=== PATIENT | female | born 1980 | race Caucasian/White ===

== ENCOUNTER 2017-09-01 21:28 | Emergency (ER) | payer MEDICAID, SELFPAY ==
[2017-09-01 21:29] VITALS: BP 156/75; PULSE 84; RESP 16; TEMP 37.1; O2SAT 95; BMI 55.7
--- NOTE | 2017-09-01 22:35 | RAD_ITS ---
STUDY: X-RAY - RIGHT FOOT CLINICAL: Female, 37 years old. Right foot and heel pain, no known injury TECHNIQUE: 3 view(s) of the foot. COMPARISON: None. FINDINGS: Normal talus, calcaneus, and tarsal bones. Normal visualized subtalar, talonavicular, calcaneocuboid, tarsal and tarsometatarsal articulations. Normal metatarsi. Normal metatarsophalangeal joint of the great toe. Normal tibial and fibular sesamoid bones. Normal interphalangeal joint of the great toe. Normal phalanges of the great toe. Normal second through fifth metatarsophalangeal joints. Normal interphalangeal joints and phalanges of the lesser toes. The soft tissue structures are unremarkable. RAD/Foot min 3 Views IMPRESSION: Normal x-ray examination of the foot. Electronically Signed: Dylan Dozier MD at 22:54 EDT , Service support ,
--- NOTE | 2017-09-01 23:18 | ED.VISSUMM ---
- ER Visit Summary Date of Service: 09/01/17 Chief Complaint: Right foot pain History of Present Illness: The patient is a 37 F presents with pain in her right foot that began today. Patient states the pain is over the plantar surface of her right foot. Patient states the pain is constant. Patient states pain does radiate up her leg. Patient states pain is worse with weightbearing and improved with rest. Patient denies any trauma or injury. Patient denies any paresthesias or weakness. Patient denies any swelling. Physical Examination: Vital signs are stable. Patient is afebrile. Patient is in no acute distress. Musculoskeletal exam reveals tenderness over the plantar aspect of the right foot worse at the insertion of the plantar fascia to the calcaneus. There is no edema or ecchymosis noted. There is no bony crepitance or step-off. There is no calf tenderness noted. Homans sign is negative. Pedal pulses are equal bilateral. Sensation is intact to light touch in all digits. Capillary refill is less than 2 seconds in all digits. Test Results: X-rays of the right foot were obtained. There is no acute fracture or dislocation. Treatment Plan: Patient was instructed to ice and elevate the right foot. Patient was instructed to stretch her foot prior to weightbearing if she has been sitting for a while. Patient was given a prescription for Naprosyn. Patient was instructed to follow-up with her primary care physician in 7-10 days. Patient understood and was agreeable with the plan. All questions were answered. Disposition: Discharge home Impression: Plantar fasciitis This note was generated with [employer] dictation software. It may contain incorrect words, spelling, and punctuation that were not noted in review of the chart prior to signing ED Disposition - Plan for ED Patient: Disposition: Home or Assisted Living Chief Complaint: Lower Extremity Injury Diagnosis: Plantar fasciitis of right foot Instructions: ED Plantar Fasciitis Prescriptions: Naproxen [Naprosyn] 500 mg PO BID PRN #20 tab Referrals: Mandie Garcia PA [Primary Care Provider] -
[2017-09-01 23:40] VITALS: RESP 18
== END 2017-09-01 23:40 | disposition home or self-care (01) ==
PROVIDERS: Emergency Provider Emergency Medicine; Family Provider Physician Assistant; PCP Physician Assistant
DX: M72.2 Plantar fascial fibromatosis (principal); K21.9 Gastro-esophageal reflux disease without esophagitis
CPT/HCPCS: 73630; 99282

== ENCOUNTER 2017-11-01 17:05 | Observation (INO) | payer MEDICAID, SELFPAY ==
--- NOTE | 2017-11-01 13:13 | EKG12_ITS ---
Test Reason : SYNCOPE Blood Pressure : / mmHG Vent. Rate : 061 BPM Atrial Rate : 061 BPM P-R Int : 144 ms QRS Dur : 088 ms QT Int : 446 ms P-R-T Axes : 051 057 025 degrees QTc Int : 448 ms Normal sinus rhythm Normal ECG Confirmed by VASU PRATER, RENE ([id number]), graphic editor KELLY MOSQUERA ([id number]) on 11/04/2017 5:53:49 PM Referred By: Mary Esparza Confirmed By:RENE LEONE MD
--- NOTE | 2017-11-01 17:30 | CT_ITS ---
STUDY: CT BRAIN WITHOUT CONTRAST REASON FOR EXAM: Female, 37 years old. Vertigo nausea and vomiting RADIATION DOSAGE (If Supplied By Facility): CTDIvol = ( 44.99 ) mGy, DLP = ( 745.49 ) mGycm TECHNIQUE: Transaxial CT imaging of the brain was performed without administration of intravenous contrast material. Individualized dose optimization techniques were used for this CT. COMPARISON: None. FINDINGS: Normal soft tissue structures. Normal calvarium. Normal size ventricles and extra-axial spaces for the patient's age. Normal white matter tracts of the cerebral hemispheres. Normal basal ganglia and thalami. Normal brainstem. Normal cerebellum. Partial empty sella deformity of uncertain clinical significance. There is no intracranial hemorrhage. There are no findings of an acute ischemic infarction. Normal visualized paranasal sinuses. CT/Brain/Head without Contrast IMPRESSION: Partial empty sella deformity of uncertain clinical significance. No evidence for mass or acute bleed. If concern for acute infarct MRI recommended Electronically Signed: Shashi Jacobo MD at 18:10 EDT , Service support ,
--- NOTE | 2017-11-01 21:45 | DT_ITS ---
This patient was seen during an EMR downtime October 26, 2017 - November 02, 2017. This patient may have a combination of paper and electronic documentation or all paper documentation. All documentation is viewable within the e-chart portion of [employer] for each patient visit.
[2017-11-02] MEDS: Ondansetron 4 MG/2 ML Vial IV (05:45)
[2017-11-02] MEDS: Meclizine HCl 25 MG Tablet PO ×3 (06:00→12:10)
[2017-11-02] MEDS: Gabapentin 300 MG Capsule PO ×2 (06:00→08:00)
[2017-11-02 07:15] LABS: Absolute Neutrophil Count 3.9 X10^3/uL (2.0-7.7); Basophil# 0.04 X10^3/uL; Basophil% 0.5 % (0-1); Eosinophils% 2.7 % (0-5); Hematocrit 35.9 % (37-47); Hemoglobin 11.3 g/dl (12.0-15.0); Lymphocyte % 36.9 % (19-41); Mean Corp Hgb Conc 31.5 g/gl (32-36); Mean Corpuscular Hgb 26.9 pg (27.0-32.0); Mean Corpuscular Volume 85.5 fL (81-99); Monocyte# 0.48 X10^3/uL; Monocyte% 6.6 % (0-10); Neutrophil # 3.87 X10^3/uL (2.7-7.7); Neutrophil % 52.9 % (47-70); Platelet Count 317 K/mm3 (150-450); RBC Distribution Width CV 14.4 % (11.6-14.6); RBC Distribution Width SD 43.7 fl (35.1-43.9); White Blood Count 7.3 K/mm3 (4.4-11.0)
[2017-11-02 07:19] LABS: POSITIVE COUNT NO; POSITIVE DIFFERENTIAL NO; POSITIVE MORPHOLOGY NO
[2017-11-02 07:22] LABS: Anion Gap 9 (5-15); BUN 10 mg/dL (7-18); BUN/Creat Ratio 11.9 RATIO (10-20); Calcium,Total 7.7 mg/dL (8.5-10.1); Chloride 112 mmol/L (98-107); Creatinine, Serum 0.84 mg/dL (0.55-1.02); EST Glomerular Filtration Rate 81 mL/min (>60); Est Glom Filt Rate - Afr Amer 97 mL/min (>60); Glucose 77 mg/dL (74-106); Potassium 4.1 mmol/L (3.5-5.1); Sodium Level 142 mmol/L (136-145)
[2017-11-02] MEDS: Ketorolac 30 MG/ML Syringe IV ×2 (08:15)
[2017-11-02] MEDS: Sucralfate 1 GM Tablet PO ×2 (08:15→12:10)
[2017-11-02] MEDS: 0.9% NaCl Peripheral Flush Adult/Peds IV (08:15)
[2017-11-02] MEDS: 0.9% Normal Saline 1,000 ML 125 ML IV ×2 (08:15)
[2017-11-02 10:00] VITALS: PULSE 73
[2017-11-02] MEDS: Pantoprazole Sodium 40 MG Tablet PO (10:00)
[2017-11-02 12:08] VITALS: BP 129/73; PULSE 81; RESP 18; TEMP 36.7; O2SAT 95
--- NOTE | 2017-11-02 13:47 | PCM.DC ---
You will use the following diet at home:: No restrictions Your food should be the consistency of: Regular Discharge Activity: Return to Normal Activity Call your doctor if you observe: - - intractable vertigo Allergies/Adverse Reactions: Allergies lansoprazole [From Prevacid] Allergy (Verified 09/01/17 21:29) Unknown rabeprazole [From Aciphex] Allergy (Verified 09/01/17 21:29) Hives Sulfa (Sulfonamide Antibiotics) Allergy (Verified 09/01/17 21:29) Unknown omeprazole [From Prilosec] Adverse Reaction (Verified 09/01/17 21:29) Other omeprazole magnesium [From Prilosec] Adverse Reaction (Verified 09/01/17 21:29) Other Medications to take at Discharge Gabapentin [Neurontin] 0 mg PO PRN PRN 08/14/16 clonazepam 0.5 mg tablet 0.5 mg PO QHS 08/01/17 duloxetine 20 mg capsule,delayed release 20 mg PO BID 08/01/17 sucralfate 1 gram tablet 1 g PO ONCE 08/01/17 fluconazole 200 mg tablet 200 mg PO QDAY #2 tab 08/12/17 Naproxen [Naprosyn] 500 mg PO BID PRN #20 tab 09/01/17 Meclizine HCl 25 mg PO TID PRN #1 tab.chew 11/02/17 Ondansetron HCl [Zofran] 8 mg PO TID PRN #15 tab 11/02/17 The following prescriptions were given: Meclizine HCl 25 mg PO TID PRN #1 tab.chew PRN Reason: Vertigo Ondansetron HCl [Zofran] 8 mg PO TID PRN #15 tab PRN Reason: nasuea and vomiting. Orders to be completed after discharge: Physical Therapy Evaluation Time Frame: 1 Week, Location: None Selected Primary Care Physician: Mandie Garcia PA [Primary Care Provider] - Within 2 Weeks Proposed Discharge Date: 11/02/17
--- NOTE | 2017-11-02 13:49 | PCM.DC.SUM ---
Discharge Date and Diagnosis - Problem List Patient Problems: Active and Suspected Problems (Last Reviewed 08/01/17 @ 11:28 by Marie Preciado) Vertigo (Acute) Date of Admission: 11/01/17 Date of Discharge: 11/02/17 - Primary Discharge Diagnosis Active and Suspected Problems (Last Reviewed 08/01/17 @ 11:28 by Marie Preciado) Vertigo (Acute) - Secondary Discharge Diagnosis Chronic Problems (Last Reviewed 08/01/17 @ 11:28 by Marie Preciado) Tobacco use disorder (Chronic) GERD (gastroesophageal reflux disease) (Chronic) Depression (Chronic) Chest pain (Chronic) Anxiety disorder (Chronic) Hospital Course and Treatment Imaging Results: Clinical Impression(s) from Imaging Studies Brain CT 11/01/17 17:30 IMPRESSION: Partial empty sella deformity of uncertain clinical significance. No evidence for mass or acute bleed. If concern for acute infarct MRI recommended Electronically Signed: Shashi Jacobo MD at 18:10 EDT , Service support , Operations: None Procedures: None Summary of Care Provided: The patient is a 37 year old F presents with vertigo. Neurologic workup was unremarkable but patient was having dizziness with just ambulating and head turns. Today, patient's symptoms are much better and the patient is a very able to ambulate to go to the bathroom without difficulty. Patient states that she has been evaluated for this before and has been on meclizine for this. States that she has never seen physical therapy for this before, however. On neurologic exam today patient's cranial nerves II through XII are grossly intact muscle strength is 5 out of 5 in upper extremities bilaterally. Patient has no focal neurologic deficits. I do not feel that this is a stroke but more consistent with benign paroxysmal positional vertigo. Patient states that she has meclizine at home that is less than a year old. I have recommended patient follow-up with physical therapy for vestibular rehab to help with expelling the otolith. [] Patient is in no acute distress and febrile. Cranial nerves II through XII grossly intact and strength is 5 out of 5 in upper extremities bilaterally. No focal neurologic deficits appreciated. Vital Signs Height 1.6 m Weight: 149.4 kg Weight in Pounds 329.4 lbs Pulse Ox 95 Temperature 36.7 C Pulse Rate 81 Respiratory Rate 18 Blood Pressure 129/73 Blood Pressure Position Semi-Fowlers Discharge Diet: No Restrictions Discharge Activity: Return to Normal Activity Call your doctor if you observe: - - intractable vertigo Home Medications: Medications to take at Discharge Gabapentin [Neurontin] 0 mg PO PRN PRN 08/14/16 clonazepam 0.5 mg tablet 0.5 mg PO QHS 08/01/17 duloxetine 20 mg capsule,delayed release 20 mg PO BID 08/01/17 sucralfate 1 gram tablet 1 g PO ONCE 08/01/17 fluconazole 200 mg tablet 200 mg PO QDAY #2 tab 08/12/17 Naproxen [Naprosyn] 500 mg PO BID PRN #20 tab 09/01/17 Meclizine HCl 25 mg PO TID PRN #1 tab.chew 11/02/17 Ondansetron HCl [Zofran] 8 mg PO TID PRN #15 tab 11/02/17 Following Prescrptions Were Given to Patient: Meclizine HCl 25 mg PO TID PRN #1 tab.chew PRN Reason: Vertigo Ondansetron HCl [Zofran] 8 mg PO TID PRN #15 tab PRN Reason: nasuea and vomiting. Other Amb Orders: Physical Therapy Evaluation Time Frame: 1 Week, Location: None Selected Primary Care Physician: Mandie Garcia PA [Primary Care Provider] - Within 2 Weeks Disposition: Home Minutes spent on discharge:: 32 Patient Condition:: Good Medical Necessity - Tobacco Use Smoking Status: Former smoker Meaningful Use Info Meaningful Use Diagnoses (Choose all that apply): None applicable Code Visit OBSV E&M: 75586 Observation care discharge
[2017-11-02] MEDS: DULoxetine Hcl 30 MG Capsule PO (14:11)
[2017-11-02 14:17] VITALS: BP 118/72; PULSE 85; RESP 18; TEMP 36.9; O2SAT 96
[2017-11-03 08:05] LABS: Anion Gap 7 (5-15); BUN 11 mg/dL (7-18); BUN/Creat Ratio 11.3 RATIO (10-20); Calcium,Total 8.8 mg/dL (8.5-10.1); Chloride 107 mmol/L (98-107); Creatinine, Serum 0.97 mg/dL (0.55-1.02); EST Glomerular Filtration Rate 68 mL/min (>60); Est Glom Filt Rate - Afr Amer 82 mL/min (>60); Glucose 88 mg/dL (74-106); Pregnancy, Serum, hCG Quali. NEGATIVE Negative (0-9 Nonpreg); Sodium Level 139 mmol/L (136-145)
[2017-11-03 10:52] LABS: Absolute Lymphocyte Count 0.65 X10^3/ul (0.83-4.51); Absolute Neutrophil Count 4.9 X10^3/uL (2.0-7.7); Basophil% 0.3 % (0-1); Eosinophil# 0.03 X10^3/uL; Eosinophils% 3.1 % (0-5); Hematocrit 38.1 % (37-47); Hemoglobin 12.3 g/dl (12.0-15.0); Lymphocyte # 2.79 X10^3/ul (4.0); Lymphocyte % 32.1 % (19-41); Mean Corp Hgb Conc 32.3 g/gl (32-36); Mean Corpuscular Hgb 26.5 pg (27.0-32.0); Mean Corpuscular Volume 81.9 fL (81-99); Mean Platelet Vol. 10.2 fl (6.2-12.0); Monocyte# 0.27 X10^3/uL; Monocyte% 7.5 % (0-10); Neutrophil # 4.93 X10^3/uL (2.7-7.7); Neutrophil % 59.9 % (47-70); POSITIVE COUNT NO; POSITIVE DIFFERENTIAL NO; POSITIVE MORPHOLOGY NO; Platelet Count 412 K/mm3 (150-450); RBC Distribution Width CV 14.1 % (11.6-14.6); Red Blood Count 4.65 M/mm3 (4.2-5.4); White Blood Count 8.7 K/mm3 (4.4-11.0)
[2017-11-03 11:21] LABS: Magnesium 1.9 mg/dL (1.6-2.6)
== END 2017-11-02 14:45 | disposition home or self-care (01) ==
LOC: ED 21:49 → MS3 21:50
PROVIDERS: Admitting Provider Family Medicine; Emergency Provider Emergency Medicine; Family Provider Physician Assistant; PCP Physician Assistant
DX: R42 Dizziness and giddiness (principal); K21.9 Gastro-esophageal reflux disease without esophagitis; F41.9 Anxiety disorder, unspecified; F32.9 Major depressive disorder, single episode, unspecified; Z79.899 Other long term (current) drug therapy; G89.29 Other chronic pain; M54.2 Cervicalgia; M79.7 Fibromyalgia; Z87.891 Personal history of nicotine dependence; E66.01 Morbid (severe) obesity due to excess calories; Z68.43 Body mass index [BMI] 50.0-59.9, adult; Z71.3 Dietary counseling and surveillance
CPT/HCPCS: 36415; 70450; 80048; 83735; 84703; 85025; 93005; 96361; 96374; 96375; 96376; 97802; 99218; 99285; J7030; A4216; G0378; J2405

== ENCOUNTER 2018-12-14 10:53 | Day surgery (SDC) | payer MEDICAID, SELFPAY ==
[2018-12-14 11:31] LABS: Internal QC Validated? YES +Cl - CLEAR BKGD; Pregnancy, Urine Negative Negative
[2018-12-14 11:32] VITALS: BP 134/74; PULSE 75; RESP 20; TEMP 37; O2SAT 97; BMI 56.0
--- NOTE | 2018-12-14 12:00 | COLBX_PTH ---
PATIENT: DERECK OSPINA LOC: EN U#:[id number] AGE/SX: 38/F ROOM: RE12/14/[address]: Dr. Antonietta Gonzalez MD : [id number] BED: DIS: 12/14/2018 SPEC #: [id number] RECD: 12/14/18 14:16 STATUS: JENN SERA #: [id number] DILOLN: 12/14/18 12:[address]: Antonietta Gonzalez DEPT: SURGICAL PATHOLOGY RECD BY: Agustin Fair ENTERED: 12/15/18 11:00 SP TYPE: COLON BX OTHR DR: OG Snyder Tissues: COLON BIOPSY Procedures: Surgery Specimen Level IV HEADER OPERATION: Colonoscopy (MAC) PRE-OP DIAGNOSIS: Lower abdominal pain, pain with bowel movements TISSUE SUBMITTED: Random colon biopsies MICROSCOPIC DIAGNOSIS Colon, random biopsy: Fragments of colonic mucosa, no pathologic diagnosis. IMELDA:jorge luis 12/16/18 MICROSCOPIC DESCRIPTION Slides are reviewed. GROSS DESCRIPTION Received in fixative is one container labeled with the patient's name and designated random colon biopsy. The specimen consists of multiple irregular fragments of light abebe soft tissue that in aggregate measure 2 x 0.5 x 0.1 cm. The specimen is totally submitted in one cassette. / SJ:jorge luis 12/15/18 TC:4 CPT: 18537
[2018-12-14 12:25] VITALS: BP 121/78; BP 134/74; PULSE 66; RESP 16; TEMP 36.1; O2SAT 97
--- NOTE | 2018-12-14 12:29 | OP.ENDO_ITS ---
12/14/2018 Mandie Garcia Re : Colonoscopy procedure for Fernanda Hernandez Dear Jose This procedure was performed on Friday, December 14, 2018. My impressions and recommendations are as follows: Impressions : - Non-bleeding internal hemorrhoids. - Biopsies were taken with a cold forceps from the entire colon for evaluation of microscopic colitis. Recommendations : - Discharge patient to home (ambulatory). - Resume previous diet. - Continue present medications. - Await pathology results. - My office will telephone with pathology results in 1-2 weeks - Repeat colonoscopy as per ACS guidelines for screening for colon cancer. My findings are described in the full procedure note, which is enclosed. If I can be of further assistance, please feel free to contact me at Doctor phone number(s): , Work: . Sincerely, MD Antonietta Cheng MD 12/14/2018 12:29:04 PM This report has been signed electronically.
[2018-12-14 12:30] VITALS: BP 121/81; BP 134/74; PULSE 68; RESP 16; O2SAT 98
[2018-12-14 12:35] VITALS: BP 122/83; BP 134/74; PULSE 67; RESP 16; O2SAT 100
[2018-12-14 12:40] VITALS: BP 130/81; BP 134/74; PULSE 63; RESP 16; TEMP 36.2; O2SAT 98
[2018-12-14 13:10] VITALS: BP 134/74
== END 2018-12-14 13:18 | disposition home or self-care (01) ==
LOC: EN 10:54 → AC 10:56
PROVIDERS: Anesthesiology; Family Provider Physician Assistant; PCP Physician Assistant; Referring Provider Physician Assistant; Visit Provider Surgery
PROC: 0DJD8ZZ Inspection of Lower Intestinal Tract, Via Natural or Artificial Opening Endoscopic (ICD-10-PCS; CPT 45378; principal; 2018-12-14 11:55)
DX: K64.8 Other hemorrhoids (principal); R10.84 Generalized abdominal pain; R19.4 Change in bowel habit; K21.9 Gastro-esophageal reflux disease without esophagitis; M79.7 Fibromyalgia; F32.9 Major depressive disorder, single episode, unspecified; F41.9 Anxiety disorder, unspecified; Z87.891 Personal history of nicotine dependence; E66.01 Morbid (severe) obesity due to excess calories; Z68.43 Body mass index [BMI] 50.0-59.9, adult
CPT/HCPCS: 45380; 81025; 88305; J7120

== ENCOUNTER → 2019-02-21 10:06 | Outpatient (CLI) | payer MEDICAID, SELFPAY ==
--- NOTE | 2019-02-21 10:07 | RAD_ITS ---
STUDY: X-RAY - RIGHT KNEE REASON FOR EXAM: Female, 38 years old. Anterior knee pain TECHNIQUE: 4 view(s) of the knee. COMPARISON: None. FINDINGS: There is demineralization of the visualized distal femur. There is demineralization of the tibia and fibula. Normal proximal tibiofibular articulation. Normal medial femorotibial compartment. Normal lateral femorotibial compartment. Normal patellofemoral articulation. The soft tissue structures are unremarkable. RAD/Knee 4 or More Views IMPRESSION: Bony demineralization. No visualized fracture no significant arthrosis. Electronically Signed: Britany Parra MD at 17:57 EDT Tel , Service support ,
== END ==
PROVIDERS: Family Provider Physician Assistant; PCP Physician Assistant; Referring Provider Physician Assistant; Visit Provider Physician Assistant
DX: M25.561 Pain in right knee (principal)
CPT/HCPCS: 73564

== ENCOUNTER → 2019-03-11 16:10 | Outpatient (CLI) | payer MEDICAID, SELFPAY ==
--- NOTE | 2019-03-11 16:16 | MRI_ITS ---
HISTORY: IInjury fall 01/25/19, pain entire knee EXAMINATION: MR Knee W/O Contrast TECHNIQUE: Multiplanar and multisequence MR images of the right knee. IV Contrast dosage and agent: None. COMPARISON: No comparisons. 203 images. 5 diagnostic series FINDINGS: BONE: No fracture or abnormal bone marrow signal. JOINT: A small joint effusion is present MUSCLES: Unremarkable. MENISCI: Medial and lateral menisci unremarkable. CRUCIATE LIGAMENTS: Anterior and posterior cruciate ligaments are intact. COLLATERAL LIGAMENTS: Medial collateral ligament and lateral collateral ligamentous complex, inclusive of the popliteal tendon, are intact. CARTILAGE: Minimal chondromalacia along the lateral facet of the patella. OTHER SOFT TISSUES: Unremarkable. No popliteal cyst. IMPRESSION: No internal derangement of the right knee. Small knee effusion. Minimal chondromalacia on the lateral facet of the patella. at 0532 Reported and signed by: Montez Nicholson MD Electronically Signed: Montez Nicholson MD at 5:31 EDT Tel , Service support , MRI/Lower Ext Joint Only (Routine)
== END ==
PROVIDERS: Family Provider Physician Assistant; PCP Physician Assistant; Referring Provider Physician Assistant; Visit Provider Physician Assistant
DX: M25.561 Pain in right knee (principal); T14.90XA Injury, unspecified, initial encounter
CPT/HCPCS: 73721

== ENCOUNTER 2019-03-14 09:30 | Outpatient (RCR) | payer MEDICAID, SELFPAY ==
--- NOTE | 2019-03-01 15:58 | HP.PTEVAL_ITS ---
Patient's Visit Information DERECK OSPINA is a 38 year old F referred to Physical Therapy by OG Bailey with a diagnosis of R Knee pain, medial contusions. Date of Evaluation: 02/28/19 Physical Therapist: Mine Gomes DPT - Visit Plan Frequency: 2x /Week Duration: 4 Weeks Plan: Focus on general LE/core strengthening, balance training, stair training, and decreasing pain. - Subjective Findings: R knee pain following fall after slipping on a puddle in a bathroom 01/31/19. No other injuries in fall. Severe pain at start, took awhile to stand up. Tried to self-treat & rest for awhile but no decrease in apin. Went to 's for x-rays on 02/07/19 negative. Went to ortho 02/21/19 x-rays negative and believed torn meniscus and possible emdial knee contusions. Pain is sharp shooting at inside of knee & intermittently in the back of knee. Deny's N/T & disruption of sleep. No radiating pain down the leg or up to hip. Worst: 6-7/10 Aggravating Factors: Walking fast/long distances, stairs (asc>desc), driving, s itting w/ knee fully bent. Best: 2/10 (pain free at times). Relieving Factors: rest (ice has not helped). 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 Exercise program: not currently. PMH/Meds: alpa headaches/dizziness, no significant concerns. - Objective Posture: FH, RS - corrected w/ v/c unable to maintain, overweight. Stairs: Asc - 1 HR & reciprocal, decreased sienna, significant weight shift to L side, paused fci up d/t to pain (avoids placing weight through R leg). Desc - decreased sienna, reciprocal/1 HR use, avoid weight shift trhough R LE, turns sideways to ease pain. Pt. reports she does asc/desc w/ step-to pattern based on her pain at times. Gait: Slight L foot pronation. HR/TR: WNL w/ UE assist. SLS: R - 2 seconds then placed other LE down d/t pain. L - 5 seconds then LOB righted by placing other LE down. ROM: Ankle WFL, Knee WFL (pain w/ end-range flexion), Hip WFL. Strength: ANkle 4+/5, Knee 4-/5, Hip 4-/5, Core: Poor. Sensation: WNL to gross B touch. Special Tests: McMurrays (+), Drop (-), Rotary Instability (-) Ant. Drawer (-). Palpation: TTP at medial meniscus and t/o medial knee - Goals Goal 1:: Pt. will b I w/ HEP & progression Goal Time Frame: 4-6 Weeks Goal 2:: Pt. will be able to asc/desc stairs w/ reciprocal pattern & no 1 HR Goal Time Frame: 4-6 Weeks Goal 3:: Pt. will demo 4+/5 LE strength Goal Time Frame: 4-6 Weeks Goal 4:: Pt. will demo R SLS for 15 seconds & no UE assist. Goal Time Frame: 4-6 Weeks - Rehabilitation Potential Physical Therapy Diagnosis: Presents w/ hypomobility, LE/core weakness, poor balance, difficulty asc/desc stairs, and pain which leads to poor tolerance of work activities. 02/28/19 HEP Prescribed: Supine Bridges, SLR, Seated HS Stretch, Gastroc Str Rehabilitation Potential: Good - Anticipated Interventions Patient/Client Instruction: Educate patient on: Condition For the Purpose of:: To decrease pain Therapeutic Exercise to Include: Strength training, Endurance training, Balance training, Body mechanics, Active ROM, Dynamic Lumbar Stabilization For the Purpose of:: To improve muscle performance and motor function TENS: Yes Cryotherapy (ice pack, ice massage): Yes Thermo therapy (hot pack): Yes For the Purpose of:: To decrease pain Thank you for the opportunity to evaluate your patient. For Medicare and Medicare HMO plans, please review the plan of care and approve it. It will need to be FAXED BACK to us at [phone] for Medicare purposes. For Medicare only, by signing this I certify the plan of care. Please let me know if there are questions or concerns regarding this plan of care. Physician Signature: Date:
--- NOTE | 2019-05-10 11:33 | HP.PT.NRP ---
HP - Discharge Summary (1) - Patient Information DERECK OSPINA was seen in my office for initial evaluation on 02/28/19. The following Plan of Care was established for this patient: Initial Frequency: 2x /Week Initial Duration: 4 Weeks - Anticipated Interventions Patient/Client Instruction: Educate patient on: Condition For the Purpose of:: To decrease pain Therapeutic Exercise to Include: Strength training, Endurance training, Balance training, Body mechanics, Active ROM, Dynamic Lumbar Stabilization For the Purpose of:: To improve muscle performance and motor function TENS: Yes Cryotherapy (ice pack, ice massage): Yes Thermo therapy (hot pack): Yes For the Purpose of:: To decrease pain This patient was last seen in our office . Pertinent comments regarding their Physical therapy will appear below: Patient has not attended physical therapy in over 4 weeks- appropriate for d/c and return to MD as appropriate. At this point I will be discontinuing this patient from physical therapy. I would be happy to see this patient again in the future if found appropriate by the physician. Thank you! Mine Gomes DPT
== END 2019-03-14 19:00 | disposition home or self-care (01) ==
LOC: PT 09:30
PROVIDERS: Family Provider Physician Assistant; PCP Physician Assistant; Referring Provider Physician Assistant; Visit Provider Physician Assistant
DX: M25.561 Pain in right knee (principal); S80.01XD Contusion of right knee, subsequent encounter
CPT/HCPCS: 97014; 97110; 97161; 97530; G0283

== ENCOUNTER 2019-04-12 16:35 | Emergency (ER) | payer MEDICAID, SELFPAY ==
[2019-03-21 11:35] VITALS: BMI 56.0
[2019-04-12 16:36] VITALS: BP 147/60; PULSE 91; RESP 22; TEMP 37.6; O2SAT 100; BMI 57.8
--- NOTE | 2019-04-12 17:00 | EKG12_ITS ---
Test Reason : CP Blood Pressure : / mmHG Vent. Rate : 089 BPM Atrial Rate : 089 BPM P-R Int : 148 ms QRS Dur : 088 ms QT Int : 382 ms P-R-T Axes : 045 032 018 degrees QTc Int : 464 ms Normal sinus rhythm Normal ECG Confirmed by LENI PRATER, JIMENEZ ([id number]), manager editorial ARLYN DESAI ([id number]) on 04/15/2019 12:25:52 PM Referred By: TOMEKA/JASON Confirmed By:OTIS FARRAR MD
--- NOTE | 2019-04-12 17:06 | ED.VISSUMM ---
- ER Visit Summary Date of Service: 04/12/19 Chief Complaint: Chest pain History of Present Illness: The patient is a 39 F who presents with chest pain that has been intermittent over the past week and a half. Patient describes her pain as sharp. Patient states the pain comes on and last for several hours. Patient states pain is over the left parasternal area and radiates into her back. Patient states nothing makes it better or worse. Patient admits to a history of acid reflux and states this is typical for her. Patient denies any nausea or vomiting. Patient denies any shortness of breath cough or fever. Patient denies any diaphoresis. Patient denies any lightheadedness. Patient denies any cardiac or PE risk factors. Patient states she took aspirin prior to arrival. Physical Examination: Vital signs are stable. Patient is afebrile. Patient is in no acute distress. Oral mucosa is pink and moist. Neck is supple. Trachea is midline. There is no JVD noted. Heart was regular rate and rhythm. Lungs are clear and equal bilateral. Abdomen is soft. Bowel sounds are normal. There is no tenderness. There is no guarding noted. Skin is warm dry. Cranial nerves II through XII are intact. There are no focal motor or sensory deficits noted. Extremities are intact. There is no calf tenderness or edema. Test Results: EKG showed a normal sinus rhythm with a rate of 89. There are no acute ST or T wave changes. CBC, basic metabolic profile, troponin were all within normal limits. PA and lateral chest x-ray was obtained. There is no acute cardiopulmonary process. Emergency Department Course and Treatment: Patient was given a GI cocktail here. Patient had minimal improvement of her pain with this. Patient has a HEART score of 1. Patient was advised that this is low risk for acute cardiac event. Patient was instructed to follow-up with her primary care physician in 5 to 7 days. Patient understood and was agreeable with the plan. All questions were answered. Disposition: Discharge home Impression: Chest pain This note was generated with [employer] dictation software. It may contain incorrect words, spelling, and punctuation that were not noted in review of the chart prior to signing ED Disposition - Plan for ED Patient: Disposition: Home or Assisted Living Diagnosis: Chest pain of uncertain etiology Instructions: CHEST PAIN, Uncertain Cause Referrals: Mandie Garcia PA [Primary Care Provider] - 5-7 Days
[2019-04-12 17:13] LABS: Absolute Lymphocyte Count 2.75 X10^3/uL (0.83-4.51); Absolute Neutrophil Count 5.4 X10^3/uL (2.0-7.7); Basophil# 0.06 X10^3/uL; Basophil% 0.7 % (0-1); Eosinophil# 0.26 X10^3/uL; Eosinophils% 2.9 % (0-5); Hematocrit 37.7 % (37-47); Hemoglobin 12.1 g/dL (12.0-15.0); Lymphocyte # 2.75 X10^3/ul (4.0); Lymphocyte % 30.5 % (19-41); Mean Corp Hgb Conc 32.1 g/dL (32-36); Mean Corpuscular Hgb 26.9 pg (27.0-32.0); Mean Platelet Vol. 10.5 fl (6.2-12.0); Monocyte# 0.56 X10^3/uL; Monocyte% 6.2 % (0-10); NRBC Flagged by Analyzer 0 % (0-5); Neutrophil # 5.36 X10^3/uL (2.7-7.7); Neutrophil % 59.5 % (47-70); Platelet Count 384 K/mm3 (150-450); RBC Distribution Width CV 14.4 % (11.6-14.6); RBC Distribution Width SD 43.5 fl (35.1-43.9); Red Blood Count 4.49 M/mm3 (4.2-5.4)
[2019-04-12 17:16] VITALS: O2SAT 99
[2019-04-12] MEDS: Mag Hydrox/Al Hydrox/Simeth 30 ML UDC PO (17:19)
--- NOTE | 2019-04-12 17:20 | RAD_ITS ---
STUDY: X-RAY CHEST REASON FOR EXAM: Female, 39 years old. Chest pain TECHNIQUE: Single AP portable view of the chest. COMPARISON: 03/05/16. FINDINGS: Cardiac silhouette unremarkable. Pulmonary vascularity unremarkable. Aorta unremarkable. No focal airspace opacities. No pleural effusions. Upper abdomen unremarkable. Osseous structures intact. No pneumothorax. RAD/Chest PA and Lateral IMPRESSION: No acute cardiopulmonary findings Electronically Signed: Bryan Shaver, at 17:48 EST Tel , Service support ,
[2019-04-12 17:27] LABS: Anion Gap 6 (5-15); BUN 9 mg/dL (7-18); BUN/Creat Ratio 9.9 RATIO (10-20); Calcium,Total 8.6 mg/dL (8.5-10.1); Chloride 109 mmol/L (98-107); Creatinine, Serum 0.91 mg/dL (0.55-1.02); EST Glomerular Filtration Rate 73 mL/min (>60); Est Glom Filt Rate - Afr Amer 88 mL/min (>60); Estimated Creatinine Clearance 67.98 ml/min; Glucose 95 mg/dL (74-106); Potassium 3.6 mmol/L (3.5-5.1); Sodium Level 140 mmol/L (136-145)
[2019-04-12 17:46] VITALS: BP 121/83; PULSE 79; RESP 17; O2SAT 99
[2019-04-12 18:18] VITALS: BP 128/66; PULSE 77; RESP 15; O2SAT 99
[2019-04-12 18:55] VITALS: BP 104/64; PULSE 77; RESP 20; O2SAT 98
--- NOTE | 2019-04-12 18:56 | ED.RN ---
PT GIVEN WRITTEN AND VERBAL DISCHARGE INSTRUCTIONS. PT EDUCATED ON INSTRUCTIONS AND FOLLOW UP. PT VERBALIZES UNDERSTANDING AND DENIES ANY FURTHER QUESTIONS. PT IV D/C AND COVERED WITH 2X2 GAUZE AND PAPER TAPE. PT DRESSES SELF AND AMBULATES OUT OF DEPT WITH FAMILY.
== END 2019-04-12 18:57 | disposition home or self-care (01) ==
PROVIDERS: Emergency Provider Emergency Medicine; Family Provider Physician Assistant; PCP Physician Assistant
DX: R07.9 Chest pain, unspecified (principal); E66.9 Obesity, unspecified; K21.9 Gastro-esophageal reflux disease without esophagitis; M54.2 Cervicalgia; M54.9 Dorsalgia, unspecified; R51 Headache; R30.0 Dysuria; J02.9 Acute pharyngitis, unspecified
CPT/HCPCS: 71046; 80048; 84484; 85025; 93005; 99284; A4216

== ENCOUNTER 2019-07-13 22:52 | Emergency (ER) | payer MEDICAID, SELFPAY ==
[2019-04-19 09:30] VITALS: BMI 57.8
[2019-07-13 22:53] VITALS: BP 165/104; PULSE 89; RESP 15; TEMP 36; O2SAT 99; BMI 59.1
--- NOTE | 2019-07-13 23:24 | ED.VISSUMM ---
- ER Visit Summary Date of Service: 07/13/19 Chief Complaint: Atraumatic right-sided soft tissue neck pain History of Present Illness: The patient is a 39 F history of vertigo, depression, anxiety and migraines. Patient states for 3 days she has had gradual onset of right-sided neck pain. Denies any fall or trauma. Worse with rotation of her neck. She is never had neck surgery. She has had chronic neck pain in the past. Denies any fever or chills. No weakness or numbness to her extremities. Physical Examination: Middle-aged female no acute distress vital signs are stable afebrile. H EENT exam unremarkable. Neck spine nontender. Her right trapezius is tender to palpation consistent with myofascial spasm. There is no redness or warmth. No bruising. Otherwise her back nontender. Lungs are clear equal symmetrical bilaterally. Heart regular rate and rhythm no murmur rate about 90. Chest wall nontender. Abdomen soft nontender normal bowel sounds no peritoneal signs. Extremities moves all 4. Neurovascular intact. 5-5 social director strength. Dorsi plantarflexion intact. Neurologically she is awake alert with no focal motor deficits. Test Results: None Emergency Department Course and Treatment: History and exam are consistent with right trapezius muscle spasm. Patient treated with p.o. Valium here. She has Flexeril at home. Treatment Plan: Hot shower and warm bath. Massage. Flexeril. Anti-inflammatories. Follow-up if not improving. Disposition: Discharge Impression: Right trapezius muscle spasm This note was generated with [employer] dictation software. It may contain incorrect words, spelling, and punctuation that were not noted in review of the chart prior to signing ED Disposition - Plan for ED Patient: Referrals: Mandie Garcia PA [Primary Care Provider] -
--- NOTE | 2019-07-13 23:26 | ED.DEP ---
ED Disposition - Plan for ED Patient: Disposition: Home or Assisted Living Instructions: Muscle Spasm Referrals: Mandie Garcia PA [Primary Care Provider] - 3-5 Days if not improving Additional Instructions: Tenure Flexeril and anti-inflammatory. Hot shower, warm bath and massage. Follow-up if not improving.
[2019-07-13] MEDS: diazePAM 2 MG Tablet 10 MG PO (23:36)
[2019-07-13 23:38] VITALS: RESP 16
== END 2019-07-13 23:41 | disposition home or self-care (01) ==
PROVIDERS: Emergency Provider Emergency Medicine; PCP Physician Assistant
DX: M62.830 Muscle spasm of back (principal)
CPT/HCPCS: 99283

== ENCOUNTER → 2019-12-14 | Outpatient (CLI) | payer MEDICAID, SELFPAY | END | disposition home or self-care (01) | LOC: MTDU 11:24 | PROVIDERS: PCP Physician Assistant; Referring Provider Registered Nurse; Visit Provider Registered Nurse | DX: Z20.828 Contact with and (suspected) exposure to other viral communicable diseases (principal) | CPT/HCPCS: 87635; G2023; U0003 ==

== ENCOUNTER 2020-01-21 21:39 | Emergency (ER) | payer MEDICAID, SELFPAY ==
[2020-01-21 21:40] VITALS: BP 150/101; PULSE 95; RESP 16; TEMP 36.3; O2SAT 99; BMI 60.2
--- NOTE | 2020-01-21 21:57 | ED.VISSUMM ---
- ER Visit Summary Date of Service: 01/21/20 Chief Complaint: Laceration History of Present Illness: The patient is a 39 F who sees Alfonzo Garcia. She reports that tonight she was washing a mandolin and suffered a laceration to the tip of her right index finger. She is right-hand dominant. Her tetanus is up-to-date. She reports she has an aching, throbbing pain was 5-10 at worst and 3-10 currently. Is worsened by movement relieved by rest. Physical Examination: Vitals: Stable. Afebrile. General: Well-nourished and well-developed. Head: Normocephalic atraumatic. Neck: Supple, no lymphadenopathy. No JVD. Nontender. Cardiovascular: Regular rate and rhythm. No murmurs. Respiratory: No respiratory distress. Clear to auscultation bilaterally. Abdominal: Soft, nontender, nondistended, normal bowel sounds. No guarding, rebound, or peritoneal signs. Back: Nontender. Extremities: Superficial avulsion of approximately 1 cm of tissue on the distal phalanx of her right index finger. This tissue is still present, but clearly is not viable. Skin: Normal color, no rash. Neurologic: Alert and oriented ?3. Cranial nerves II through XII are intact. Normal strength and sensation. Psych: Normal affect. Emergency Department Course and Treatment: Patient had the wound cleansed and a dressing was placed. The tissue was left in place to act as an anatomic Band-Aid. She does understand that this will likely dry up and need to be cut off. Treatment Plan: Patient be discharged instructions keep the wound clean and dry. Wear a dressing at all times. Follow-up with her primary care physician in 3 to 5 days if not improving. Return to the emergency department for any worsening symptoms. Disposition: To home in improved and stable condition. Impression: 1 1. Superficial avulsion right index finger, not repaired. This note was generated with [employer] dictation software. It may contain incorrect words, spelling, and punctuation that were not noted in review of the chart prior to signing ED Disposition - Plan for ED Patient: Disposition: Home or Assisted Living Instructions: ED Finger Tip Amputation Open Treatment Referrals: Mandie Garcia PA [Primary Care Provider] - 10-14 Days if not better
== END 2020-01-21 22:33 | disposition home or self-care (01) ==
LOC: ED 22:15
PROVIDERS: Emergency Provider Emergency Medicine; PCP Physician Assistant
DX: S61.200A Unspecified open wound of right index finger without damage to nail, initial encounter (principal); W27.4XXA Contact with kitchen utensil, initial encounter; Y93.G1 Activity, food preparation and clean up; Y92.000 Kitchen of unspecified non-institutional (private) residence as the place of occurrence of the external cause; Y99.8 Other external cause status
CPT/HCPCS: 99283

== ENCOUNTER 2020-01-31 11:29 | Day surgery (SDC) | payer MEDICAID, SELFPAY ==
--- NOTE | 2020-01-30 10:02 | HP.PCM_ITS ---
History and Physical Date of Admission: 01/31/20 Fernanda Hernandez 1980 ? REFERRING PHYSICIAN: Eugenio Sanford MD ? CHIEF COMPLAINT: Consult (EGD consult) ? HPI: The patient is a 39 year old female referred for endoscopy. Fernanda notes acid reflux. She is planning to have upcoming bafriatric surgery at [facility] and EGD is needed as part of her preop evaluation. She would like to have this performed locally if possible. Patient denies any change in bowel habits, weight changes, blood in stools, black tarry stools or abdominal pain. ? Patient's past medical history is significant for morbid obesity, migraines, fibromyalgia. She follows with Alfonzo Garcia PA-C for her chronic medical conditions. ? Patient denies chest pain, shortness of breath or recent hospitalizations. Denies problems with sedation in the past. ? ?? PAST MEDICAL HISTORY ? Fibromyalgia 08/20/2016 ? GERD (gastroesophageal reflux disease) 03/12/2009 ? Hypoglycemia, unspecified ? ? Mental disorder ? ? anxiety and depression ? Migraine without aura 2001 ? Morbid obesity (HCC) ? ? Normal cardiac stress test 01/23/12 ? Snoring ? ? Unspecified prophylactic or treatment measure ? ? PAST SURGICAL HISTORY ? COLONOSCOPY W/BX ? 12/14/2018 ? EGD W/O OR W/BRUSH/WASH ? 04/11/05 ? EGD ? EGD W/O OR W/BRUSH/WASH ? 03/06/2017 ? EGD ? LAPAROSCOPIC CHOLEYCYSTECTOMY ? 03/21/16 ? REDUCTION OF LARGE BREAST ? 2013 ? REMOVE TONSILS/ADENOIDS,12+ Y/O ? 2002 ? DR. EASTMAN ? CURRENT MEDICATIONS ? naproxen (NAPROSYN) 500 mg tablet Take 1 tablet by mouth twice daily as needed (for pain/inflammation). Take with food. ? venlafaxine ER (EFFEXOR XR) 150 mg 24 hr capsule Take 1 capsule by mouth once daily. ? lamoTRIgine (LAMICTAL) 150 mg tablet Take 1 tablet by mouth once daily. ? ARIPiprazole (ABILIFY) 2 mg tablet Take 1 tablet by mouth once daily. ? pantoprazole DR (PROTONIX) 40 mg tablet Take 1 tablet by mouth twice daily. ? ondansetron orally disintegrating (ZOFRAN ODT) 4 mg disintegrating tablet Take 1 tablet by mouth every 6 hours as needed for Nausea/Vomiting. ? metaxalone (SKELAXIN) 800 mg tablet Take 1 tablet by mouth three times daily as needed for Pain. ? clonazePAM (KLONOPIN) 0.5 mg tablet TAKE 1/2 TABLET BY MOUTH AT BEDTIME NEEDED FOR ANXIETY, do not drive after taking the medication ? meclizine (ANTIVERT) 25 mg tab Take 1 tablet by mouth three times daily as needed (vertigo). ? norgestimate 0.25 mg-ethinyl estradiol 35 mcg (SPRINTEC) 0.25-35 mg-mcg per tablet Take 1 tablet by mouth once daily. Do not take placebo pills. Starts a new package every 3 weeks. ? dicyclomine (BENTYL) 20 mg tablet Take 1 tablet by mouth four times daily. as needed. ? TENS unit and electrodes cmpk 1 Device once daily. (Patient not taking: Reported on 12/20/2019 ? sucralfate (CARAFATE) 1 gram tablet Take 1 tablet by mouth four times daily. (Patient not taking: Reported on 11/10/2019 ?? ALLERGIES: Aciphex [Rabeprazole Sodium], Entex Pse [Pseudoephedrine-Guaife nesin], Nexium [Esomeprazole Magnesium], Prevacid [Lansoprazole], Prilosec [Omeprazole], Sulfa (Sulfonamide Antibiotics), and Wellbutrin [Bupropion Hcl] ? PERSONAL HISTORY: Tobacco Use ? Smoking status: Former Smoker ? ? Packs/day: 0.50 ? ? Years: 12.00 ? ? Pack years: 6.00 ? ? Types: Cigarettes ? ? Quit date: 07/22/2013 ? ? Years since quittin.4 ? Smokeless tobacco: Never Used Substance Use Topics ? Alcohol use: Yes ? ? Frequency: Monthly or less ? ? Drinks per session: Patient refused ? ? Binge frequency: Never ? ? Comment: Rarely ? Drug use: No ? FAMILY HISTORY: ? Arthritis Mother ? ? Diabetes Mother ? ? Headache Father ? ? Lipids Father ? ? Headache Sister ? ? Diabetes Maternal Grandfather ? ? Stroke Maternal Grandfather ? ? Alcohol/Drug Paternal Grandmother ? ? ETOH ? Alcohol/Drug Paternal Grandfather ? ? ETOH ? Cancer Paternal Grandfather ? ? LUNG ? Alcohol/Drug Paternal Aunt ? ? ETOH ? Alcohol/Drug Paternal Uncle ? ? ETOH ? Cancer Paternal Uncle ? ? LUNG The review of systems data was entered by the nurse and reviewed by me ? Nursing Notes: Mohan Marina RANGEL 01/09/2020 1:06 PM Signed REVIEW OF SYSTEMS: General: The patient denies fatigue, denies weight loss, denies weight gain, denies feeling hot, and denies feelings of cold. Eyes: The patient denies glaucoma, denies eye injury/surgery, wears glasses or contacts. Ear/Nose/Throat: The patient denies allergies, denies hayfever, denies ear infections, and denies bloody noses. Cardiovascular: The patient denies chest pain, denies heart disease, denies high blood pressure,denies cardiac stent, denies prior heart attack, denies irregular heart beat, denies high cholesterol, denies poor circulation, denies heart failure, other cardiac issues, denies claudication, denies cold feet, denies peripheral arterial stent. Respiratory: The patient denies tuberculosis, denies pneumonia, denies frequent cough, denies pulmonary embolism, denies shortness of breath, and denies coughing up blood. Gastrointestinal: The patient denies difficulty swallowing, NOTES acid reflux, denies ulcers, denies vomiting, denies jaundice/hepatitis, denies gallbladder problems, denies black or tarry stools, denies hemorrhoids, denies bleeding from rectum, denies diverticulitis, denies constipation, denies diarrhea, denies loss of stool control, and denies hernias. Kidney/Bladder: The patient denies kidney stones, denies urine infections, and denies bloody urine. Skin: The patient denies a history of skin cancer, denies bleeding/changing moles, and denies a history of skin rash. Neurologic: The patient denies a history of epilepsy/convulsions, NOTES headaches, denies head/spinal injuries, and denies stroke/TIA. Psychiatric: The patient NOTES psychiatric medications, NOTES depression, and denies voices, denies substance abuse. Endocrine: The patient denies thyroid disorders, denies diabetes, and denies hormonal problems. Hematologic: The patient denies a history of bruising, denies bleeding, and denies anemia, denies blood clots. Infections: The patient denies a history of measles and mumps, denies rheumatic fever, and denies sexually transmitted diseases. Musculoskeletal: The patient denies back pain/injury, NOTES back problems, denies sciatica, denies knee/foot trouble, NOTES arthritis, or denies gout. ?? When was patient's last Mammogram screening? 02/2019 ? Last Colonoscopy: 11/2018 ? Mohan Gray LPN I have confirmed and edited as necessary, the PFSH and ROS obtained by others. ? Limited video exam: ? Patient alert, cooperative, in no acute distress ? Normal affect, answers questions appropriately ? IMPRESSION: GERD, need for EGD prior to bariatric surgery ? PLAN: I have reviewed my findings with the surgeon. Will plan for upper endoscopy. We discussed the risks and benefits of the planned endoscopy. I have informed the patient that complications can occur including failure to complete the endoscopy and perforation. The patient had the opportunity to ask questions concerning the planned endoscopy. My staff has also explained the procedure to the patient in understandable terms and has given the patient printed material concerning the procedure. The patient freely consents to surgery. ? ? We will plan for Monitored Anesthetic Care. Patient aware that she will need preop COVID testing ? The patient was offered a surgery/procedure . I have counseled the patient regarding the risk of exposure to and/or potential harm posed by the COVID-19 virus with having a surgery/procedure at this time versus the risk of? delaying the surgery/procedure. It is not possible to know either the risk of delaying the surgery or procedure or chance of getting an infection with perfect accuracy, but a joint decision was made between the patient and myself?to proceed at this time with endoscopy. ? Diagnoses: (K21.9) Gastroesophageal reflux disease, esophagitis presence not specified (primary encounter diagnosis) (Z01.818) Preop testing ? Marlena Guo PA-C
[2020-01-31 11:56] VITALS: BP 142/88; PULSE 86; RESP 18; TEMP 36.1; O2SAT 99; BMI 59.9
[2020-01-31 12:04] LABS: Internal QC Validated? YES +Cl - CLEAR BKGD; Pregnancy, Urine Negative Negative
[2020-01-31] MEDS: Lactated Ringers 1,000 ML 75 ML IV (12:22)
--- NOTE | 2020-01-31 12:30 | IMM_PTH ---
PATIENT: DERECK OSPINA LOC: EN U#:[id number] AGE/SX: 39/F ROOM: RE01/31/[address]: Dr. Antonietta Gonzalez MD : 1980 BED: DIS: 01/31/2020 SPEC #: [id number] RECD: 02/01/20 13:28 STATUS: JENN REQ #: [id number] DILLON: 01/31/20 12:[address]: Antonietta Gonzalez DEPT: IMMUNOHISTOCHEMISTRY RECD BY: Jennifer Hernandez ENTERED: 02/01/20 13:29 SP TYPE: IMMUNO OTHR DR: OG Snyder Tissues: A - Stomach, NOS Procedures: H Pylori (initial) PHYSICIAN & INSTITUTION [place] [id number] SPECIMEN INFORMATION: Tissue Source: A - Antrum biopsy Clinical Info: GERD Specimen Number: [id number] CPT code: 33182 METHODOLOGY: Deparaffinized sections of prefer/formalin-fixed tissue or PAP/DQ stained slides are incubated with monoclonal/polyclonal antibodies/oligonucleotide probes. Localization is made via biotin free immunoperoxidase method. Appropriate controls are performed and reacted as expected. Results on target cell population are indicated in the following table: RESULTS: ANTIBODY / CLONE RESULT Block A H Pylori (polyclonal) negative These tests were developed and their performance characteristics determined by [facility]. They may not have been cleared or approved by the U.S. Food and Drug Administration. The FDA has determined that such clearance or approval is not necessary. INTERPRETATION: A. Antrum biopsy: Negative for Helicobacter pylori organisms. AM:jorge luis 02/02/20
--- NOTE | 2020-01-31 12:30 | EGD_PTH ---
PATIENT: DERECK OSPINA LOC: EN U#:[id number] AGE/SX: 39/F ROOM: RE01/31/[address]: Dr. Antonietta Gonzalez MD : 1980 BED: DIS: 01/31/2020 SPEC #: [id number] RECD: 01/31/20 14:43 STATUS: JENN REBetty #: [id number] DILLON: 01/31/20 12:[address]: Antonietta Gonzalez DEPT: SURGICAL PATHOLOGY RECD BY: Telma Maldonado ENTERED: 02/01/20 13:27 SP TYPE: EGD BIOPSY BERENICE DR: OG Snyder Tissues: A - Gastric mucous membrane B - Gastric mucous membrane Procedures: Special Stain Group II Surgery Specimen Level IV Alcian Blue/PAS (control) HEADER OPERATION[place] [place] DIAGNOSIS: GERD TISSUE SUBMITTED: A - Antrum biopsy for histo and H. pylori, B - GE junction biopsy MICROSCOPIC DIAGNOSIS A. Gastric antrum, biopsy: Chronic gastritis. See comment. B. Gastroesophageal junction, biopsy: Gastric mucosa with mild chronic inflammation. No evidence of goblet cell metaplasia. See comment. AM:jorge luis 02/02/20 COMMENT A. The results of immunohistochemistry for Helicobacter pylori will be reported separately ([id number]). B. Alcian blue/PAS stain with matched control supports the above diagnosis. MICROSCOPIC DESCRIPTION Slides are reviewed. GROSS DESCRIPTION A - Received in fixative is one container labeled with the patient's name and designated antrum biopsy. The specimen consists of one irregular fragment of light abebe soft tissue that measures 0.3 x 0.2 x 0.1 cm. The specimen is totally submitted in one cassette. B - Received in fixative is one container labeled with the patient's name and designated GE junction. The specimen consists of one irregular fragment of light abebe soft tissue that measures 0.3 x 0.2 x 0.1 cm. The specimen is totally submitted in one cassette. / AM:jorge luis 02/01/20 TC:3 CPT: 67995 x2, 66667
[2020-01-31 12:44] VITALS: BP 113/66; BP 142/88; PULSE 84; RESP 14; TEMP 36.8; O2SAT 99
--- NOTE | 2020-01-31 12:45 | OP.CCLET_ITS ---
01/31/2020 Mandie Garcia Re : Upper GI endoscopy procedure for Fernanda Hernandez Dear Jose This procedure was performed on Friday, January 31, 2020. My impressions and recommendations are as follows: Impressions : - Normal first portion of the duodenum and second portion of the duodenum. - Erythematous mucosa in the antrum. Biopsied. - Medium-sized hiatal hernia. Biopsied. Recommendations : - Discharge patient to home (ambulatory). - Resume previous diet. - Continue present medications. - Await pathology results. - Please make a virtual visit appointment with Marlena Guo PA-C, My findings are described in the full procedure note, which is enclosed. If I can be of further assistance, please feel free to contact me at Doctor phone number(s): , Work: . Sincerely, MD Antonietta Cheng MD 01/31/2020 12:44:36 PM This report has been signed electronically.
--- NOTE | 2020-01-31 12:45 | OP.EGD_ITS ---
Patient Name: Fernanda Hernandez Procedure Date: 01/31/2020 12:19 PM Date of : 1980 Age: 39 Procedure: Upper GI endoscopy Indications: Preoperative assessment for bariatric surgery to treat morbid obesity Providers: Antonietta Gonzalez MD Referring MD: Mandie Garcia Medicines: See the Anesthesia note for documentation of the administered medications Patient Profile: Refer to note in patient chart for documentation of history and physical. Complications: No immediate complications. Procedure: Pre-Anesthesia Assessment: - see anesthesia note After obtaining informed consent, the endoscope was passed under direct vision. Throughout the procedure, the patient's blood pressure, pulse, and oxygen saturations were monitored continuously. The Endoscope was introduced through the mouth, and advanced to the second part of duodenum. The upper GI endoscopy was accomplished without difficulty. The patient tolerated the procedure well. Scope In: 12:30:12 PM Scope Out: 12:39:29 PM Total Procedure Duration Time 0 hours 9 minutes 17 seconds Findings: The first portion of the duodenum and second portion of the duodenum were normal. Localized mildly erythematous mucosa without bleeding was found in the gastric antrum. Consistent with bile gastritis as enterogastric reflux of bile was also noted. Biopsies were taken with a cold forceps for histology. Estimated blood loss was minimal. A small to medium-sized hiatal hernia was present. The GE junction line appeared slightly irregular. Biopsies were taken with a cold forceps for histology. Verification of patient identification for the specimen was done by the nurse. Estimated blood loss was minimal. Impression: - Normal first portion of the duodenum and second portion of the duodenum. - Erythematous mucosa in the antrum. Biopsied. - Medium-sized hiatal hernia. Biopsied. Recommendation: - Discharge patient to home (ambulatory). - Resume previous diet. - Continue present medications. - Await pathology results. - Please make a virtual visit appointment with Marlena Guo PA-C, Procedure Code(s): --- Professional --- 93328, Esophagogastroduodenoscopy, flexible, transoral; with biopsy, single or multiple Diagnosis Code(s): --- Professional --- K31.89, Other diseases of stomach and duodenum K44.9, Diaphragmatic hernia without obstruction or gangrene Z01.818, Encounter for other preprocedural examination E66.01, Morbid (severe) obesity due to excess calories CPT copyright 2017 [employer]. All rights reserved. The codes documented in this report are preliminary and upon cradle placer review may be revised to meet current compliance requirements. MD Antonietta Cheng MD 01/31/2020 12:44:36 PM This report has been signed electronically. Number of Addenda: 0 Note Initiated On: 01/31/2020 12:19 PM
[2020-01-31 12:50] VITALS: BP 120/62; BP 142/88; PULSE 86; RESP 18; O2SAT 98
[2020-01-31 12:55] VITALS: BP 101/91; BP 142/88; PULSE 82; RESP 18; O2SAT 98
[2020-01-31 12:59] VITALS: BP 131/73; BP 142/88; PULSE 90; RESP 18; TEMP 36.8; O2SAT 99
[2020-01-31 13:18] VITALS: BP 142/88
== END 2020-01-31 13:19 | disposition home or self-care (01) ==
LOC: EN 11:30 → AC 11:31
PROVIDERS: Anesthesiology; PCP Physician Assistant; Referring Provider Physician Assistant; Visit Provider Surgery
PROC: 0DJ08ZZ Inspection of Upper Intestinal Tract, Via Natural or Artificial Opening Endoscopic (ICD-10-PCS; CPT 43235; principal; 2020-01-31 12:25)
DX: Z01.818 Encounter for other preprocedural examination (principal); K29.50 Unspecified chronic gastritis without bleeding; K21.0 Gastro-esophageal reflux disease with esophagitis; K44.9 Diaphragmatic hernia without obstruction or gangrene; M79.7 Fibromyalgia; E66.01 Morbid (severe) obesity due to excess calories; F41.9 Anxiety disorder, unspecified; F32.9 Major depressive disorder, single episode, unspecified; D50.9 Iron deficiency anemia, unspecified; Z11.59 Encounter for screening for other viral diseases; Z68.43 Body mass index [BMI] 50.0-59.9, adult; Z79.899 Other long term (current) drug therapy; Z87.891 Personal history of nicotine dependence
CPT/HCPCS: 43239; 81025; 87635; 88305; 88313; 88342; C9803; J7050; J7120; J2405; U0003

== ENCOUNTER → 2021-05-08 | Outpatient (CLI) | payer MEDICAID, SELFPAY | END | disposition home or self-care (01) | LOC: LABSPEC 05-09 07:56 | PROVIDERS: PCP Physician Assistant; Referring Provider Urology; Visit Provider Urology | DX: R31.0 Gross hematuria (principal) | CPT/HCPCS: 87086; 87088; 87186 ==

== ENCOUNTER 2021-06-06 12:49 | Outpatient (CLI) | payer MEDICAID, SELFPAY ==
--- NOTE | 2021-06-06 12:58 | CT_ITS ---
STUDY: CT ABDOMEN AND PELVIS WITH AND WITHOUT CONTRAST REASON FOR EXAM: Female, 41 years old. GROSS HEMATURIA RADIATION DOSAGE (If Supplied By Facility): CTDIvol = ( 22.60 ) mGy, DLP = ( 4024.47 ) mGycm TECHNIQUE: Transaxial images were obtained from the dome of the diaphragm to the symphysis pubis without oral contrast. Isovue 300 100ml was administered. Sagittal and coronal images were reconstructed. Individualized dose optimization techniques were used for this CT. COMPARISON: Comparison is made with prior study dated 03/15/2013. FINDINGS: The visualized lung bases are unremarkable. The visualized portions of the heart are within normal limits. Normal liver. The patient is status post cholecystectomy. Normal spleen. Normal pancreas. There is a small, circumscribed, smooth, low attenuation left adrenal mass, consistent with an adrenal adenoma. This measures 8.5 mm. Normal right adrenal gland. Normal right kidney. Normal left kidney. The patient is status post subtotal gastrectomy. Surgical anastomosis seen in the jejunal loops in the left upper quadrant. Normal colon. The appendix is visualized and appears normal. Normal abdominal aorta. Normal inferior vena cava. There is borderline retroperitoneal lymphadenopathy with enlarged nodes no greater than 10mm in the short axis diameter. Normal urinary bladder. Normal abdominal wall. Normal osseous structures. CT/CT Abd/Pelvis W/WO Contrast IMPRESSION: Prior cholecystectomy and subtotal gastrectomy. Stable 8.5 mm low density nodule in the left adrenal gland. No acute abnormality is seen. Electronically Signed: Danny Swift MD at 14:06 EST , Service support ,
== END 2021-06-06 23:59 | disposition short-term general hospital (02) ==
LOC: CT 12:53
PROVIDERS: PCP Physician Assistant; Referring Provider Urology; Visit Provider Urology
DX: R31.0 Gross hematuria (principal)
CPT/HCPCS: 74178; Q9967

== ENCOUNTER 2021-06-07 10:20 | Outpatient (CLI) | payer MEDICAID, SELFPAY ==
--- NOTE | 2021-06-07 17:45 | CYSPIN_PTH ---
PATIENT: DERECK OSPINA LOC: JOSE U#:[id number] AGE/SX: 41/F ROOM: RE06/07/[address]: Dr. Samreen Davila MD : 1980 BED: DIS: 06/07/2021 SPEC #: [id number] RECD: 06/10/21 08:25 STATUS: JENN SERA #: [id number] DILLON: 06/07/21 17:[address]: Samreen Davila DEPT: CYTOLOGY RECD BY: Lima Valdes ENTERED: 06/10/21 08:25 SP TYPE: CYSPIN FL OTHR DR: OG Snyder Tissues: Urine Procedures: Pap Stain (control) Special Stain Group II Cytospin Fluid HEADER OPERATION: Not noted PRE-OP DIAGNOSIS: Gross hematuria TISSUE SUBMITTED: Urine for cytology DIAGNOSIS CYTOLOGY Urine for cytology (cytospin): Negative for malignant cells. See comment. AM:jorge luis 06/10/2021 COMMENT The specimen primarily contains benign squamous cells. Clinical correlation is suggested. CYTOLOGY STUDY Slides are reviewed. CYTOLOGY GROSS Received is 30 ml of dark gold cloudy fluid labeled with the patient's name and and designated per the requisition as urine. Submitted for cytology preparation. / jorge luis 06/07/2021 TC:5 CPT: 51004
[2021-06-07 17:47] LABS: Cytology, Body Fluid / CSF SEE PATHOLOGY REPORT
== END 2021-06-07 23:59 | disposition home or self-care (01) ==
LOC: LABSPEC 08-28 10:20
PROVIDERS: PCP Physician Assistant; Visit Provider Urology
DX: R31.0 Gross hematuria (principal)
CPT/HCPCS: 88108; 88313

== ENCOUNTER 2022-09-13 16:01 | Emergency (ER) | payer MEDICAID, SELFPAY ==
[2022-09-13 16:01] VITALS: BP 153/100; PULSE 78; RESP 16; TEMP 36.4; O2SAT 99; BMI 41.4
--- NOTE | 2022-09-13 16:21 | EKG12_ITS ---
Test Reason : PALPITATIONS Blood Pressure : / mmHG Vent. Rate : 076 BPM Atrial Rate : 076 BPM P-R Int : 160 ms QRS Dur : 090 ms QT Int : 410 ms P-R-T Axes : 061 026 020 degrees QTc Int : 461 ms Normal sinus rhythm Normal ECG Confirmed by VASU PRATER, RENE ([id number]), editor managing newspaper NAOMIE GRANGER ([id number]) on 09/15/2022 11:19:09 AM Referred By: Confirmed By:RENE LEONE MD
--- NOTE | 2022-09-13 16:33 | ED.VIS.CHEST ---
HPI <OG Wheatley - Last Filed: 09/13/22 20:39> History of Present Illness Chief Complaint: Chest Pain Narrative Narrative: Patient presenting today with heart palpitations and midsternal chest pressure that radiates to her back as well as a left arm ache that she has had intermittently since Thursday night or . Nothing seems to make the symptoms better or worse. She denies any history of any cardiac conditions or history of blood clots. She denies any recent travel/surgery, or recent immobilization. She denies any fever, chills, shortness of breath, abdominal pain, nausea, and vomiting. She denies a family history of cardiac disease. [facility] <OG Wheatley - Last Filed: 09/13/22 20:39> [facility] Medical History (Updated 09/13/22 @ 18:[address] Raulito Chang MD) Arthritis Back pain Chest pain Diarrhea Difficulty balancing Fatigue Knee pain Migraines Shoulder pain SOB (shortness of breath) Stomach ulcer Home Medications norgestimate 0.25 mg-ethinyl estradiol 35 mcg tablet 1 ea PO DAILY bcp 12/10/18 [History Last Taken Unknown] pantoprazole 40 mg tablet,delayed release 80 tab PO QHS gerd 12/10/18 [History Last Taken 01/31/20] venlafaxine 150 mg capsule,extended release 24 hr 150 mg PO QHS #30 caps 03/21/19 [History Last Taken Unknown] lamotrigine 25 mg tablet 50 mg PO QHS 04/12/19 [History Last Taken Unknown] aripiprazole 2 mg tablet 2 mg PO QHS 01/19/20 [History Last Taken Unknown] Allergy/AdvReac Type Severity Reaction Status Date / Time lansoprazole [From Prevacid] Allergy Unknown Verified 09/13/22 16:19 rabeprazole [From Aciphex] Allergy Hives Verified 09/13/22 16:19 Sulfa (Sulfonamide Allergy Unknown Verified 09/13/22 16:19 Antibiotics) omeprazole [From Prilosec] AdvReac Other Verified 09/13/22 16:19 omeprazole magnesium AdvReac Other Verified 09/13/22 16:19 [From Prilosec] Surgical History History of bilateral breast reduction surgery History of cholecystectomy History of tonsillectomy Social History Smoking Status: Former smoker ROS <GO Wheatley - Last Filed: 09/13/22 20:39> ROS ED Constitutional Constitutional ED: Denies chills or fever(s) Cardiovascular Cardiovascular: Reports chest pain and palpitations Respiratory/Chest Respiratory/Chest: Denies cough, dyspnea or dyspnea on exertion Gastrointestinal Gastrointestinal: Denies abdominal pain, nausea or vomiting Musculoskeletal Musculoskeletal: Reports back pain; Denies neck pain Integumentary Denies abscess, Abrasions or rash Neurologic Neurologic: Denies dizziness or weakness Psychiatric Psychiatric: Denies anxiety, depression, suicidal ideation or suicidal thoughts EXAM <OG Wheatley - Last Filed: 09/13/22 20:39> Physical Exam Const Vital Signs: 09/13/22 16:01 09/13/22 16:16 09/13/22 17:01 Temperature 97.6 F L Temperature Source Temporal Pulse Rate 78 78 Respiratory Rate 16 18 Respiratory Effort Normal Non-Labored Respiratory Pattern Normal Blood Pressure 153/100 H 130/84 H Blood Pressure Mean 117 99 Pulse Ox 99 100 Oxygen Delivery Method Room Air Room Air 09/13/22 17:45 Temperature 98.2 F Temperature Source Pulse Rate 74 Respiratory Rate 16 Respiratory Effort Respiratory Pattern Blood Pressure 145/79 H Blood Pressure Mean Pulse Ox 99 Oxygen Delivery Method Positive well nourished, well developed and no apparent distress General Appearance ED: well developed HEENT Reports normocephalic and head/scalp atraumatic Mouth ED: Yes moist mucous membranes normal Eyes PERRL and EOMs intact bilaterally Neck full ROM and supple Chest Wall inspection of chest normal Resp normal respiratory effort and clear to auscultation bilaterally Cardio regular rate and regular rhythm GI soft to palpation, non-tender, non-distended and no masses Back/Spine normal ROM and normal to inspection Extremity normal to inspection and full ROM Neuro oriented x3, CN's II-XII intact bilaterally, moves all extremities, no focal motor deficits and no sensory deficits noted Sensorium / Orientation: awake and alert Psych mental status grossly normal and thought process normal Skin no rashes or lesions noted and no wounds <Dr. Raulito Chang MD - Last Filed: 09/13/22 18:41> Physical Exam Const Vital Signs: 09/13/22 16:01 09/13/22 16:16 09/13/22 17:01 Temperature 97.6 F L Temperature Source Temporal Pulse Rate 78 78 Respiratory Rate 16 18 Respiratory Effort Normal Non-Labored Respiratory Pattern Normal Blood Pressure 153/100 H 130/84 H Blood Pressure Mean 117 99 Pulse Ox 99 100 Oxygen Delivery Method Room Air Room Air 09/13/22 17:45 Temperature 98.2 F Temperature Source Pulse Rate 74 Respiratory Rate 16 Respiratory Effort Respiratory Pattern Blood Pressure 145/79 H Blood Pressure Mean Pulse Ox 99 Oxygen Delivery Method <OG Wheatley - Last Filed: 09/13/22 20:39> Heart Score History: Moderately Suspicious ECG: Normal Age: </= 44 years Risk Factors: 1 or 2 Risk Factors Troponin: </= Normal Limit Score: 2 <Dr. Raulito Chang MD - Last Filed: 09/13/22 18:41> Heart Score Score: 2 MDM <OG Wheatley - Last Filed: 09/13/22 20:39> MDM MDM Narrative Medical decision making narrative: Patient presenting due to midsternal chest pressure that radiates to her back plus left arm pain and heart palpitations. Labs will be obtained to rule out leukocytosis, anemia, electrolyte abnormality, and ACS. EKG obtained and is normal sinus rhythm. She is well-appearing and in no acute distress. Chest x-ray will be obtained to rule out infiltrate, pneumothorax, and other cardiopulmonary abnormality. Chest x-ray is negative, labs unremarkable. I have low suspicion for a PE, patient is not having any shortness of breath, no history of clots, no recent travel/surgery/procedures, no tachypnea, and she is not tachycardic. Patient has not smoked tobacco in several years. Patient's back pain is somewhat reproducible to palpation to the paraspinal muscles on the right side of her mid back and with her bending her head down. She recently got a tattoo on her arm Thursday and reports looking down to watch them do it for a few hours, this could possibly have caused her back pain. My suspicion that patient's chest pain is cardiac in nature is low, however, have encouraged her to follow-up with her PCP on this to discuss possible stress test or any other testing that they feel might be done. She has been given return instructions and will be discharged home in stable condition. She is comfortable with plan. Lab Data Attestation: I reviewed the patient's lab results. Labs: Laboratory Results - last 24 hr 09/13/22 09/13/22 16:30 16:30 WBC 8.1 RBC 4.12 L Hgb 12.4 Hct 37.6 MCV 91.3 MCH 30.1 MCHC 33.0 RDW Std Deviation 42.5 RDW Coeff of Renan 12.8 Plt Count 314 MPV 10.4 Immature Gran % (Auto) 0.100 Neut % (Auto) 51.8 Lymph % (Auto) 36.1 Mchenry % (Auto) 7.8 Eos % (Auto) 3.6 Baso % (Auto) 0.6 Absolute Neuts (auto) 4.2 Absolute Lymphs (auto) 2.91 Nucleated RBC % 0 Sodium 140 Potassium 3.4 L Chloride 109 H Carbon Dioxide 26.0 Anion Gap 5 BUN 10 Creatinine 0.78 Estim Creat Clear Calc 76.93 Est GFR (MDRD) Af Amer 104 Est GFR (MDRD) Non-Af 86 BUN/Creatinine Ratio 12.9 Glucose 75 Calcium 8.5 Troponin I High Sens 5 Radiography Chest X-Ray - ED: Read by ED Physician and Read by Radiologist Diagnostic Testing: Clinical Impression(s) from Imaging Studies Chest X-Ray 09/13/22 17:02 IMPRESSION: Normal x-ray examination of the chest. Electronically Signed: Jose Nevarez MD at 17:17 EDT , EKG Initial EKG: Comments: 76 bpm, normal sinus rhythm, no ST elevation, reviewed and interpreted by attending ED physician. Prior: Unchanged <Dr. Raulito Chang MD - Last Filed: 09/13/22 18:41> [facility] Lab Data Labs: Laboratory Results - last 24 hr 09/13/22 09/13/22 16:30 16:30 WBC 8.1 RBC 4.12 L Hgb 12.4 Hct 37.6 MCV 91.3 MCH 30.1 MCHC 33.0 RDW Std Deviation 42.5 RDW Coeff of Renan 12.8 Plt Count 314 MPV 10.4 Immature Gran % (Auto) 0.100 Neut % (Auto) 51.8 Lymph % (Auto) 36.1 Mchenry % (Auto) 7.8 Eos % (Auto) 3.6 Baso % (Auto) 0.6 Absolute Neuts (auto) 4.2 Absolute Lymphs (auto) 2.91 Nucleated RBC % 0 Sodium 140 Potassium 3.4 L Chloride 109 H Carbon Dioxide 26.0 Anion Gap 5 BUN 10 Creatinine 0.78 Estim Creat Clear Calc 76.93 Est GFR (MDRD) Af Amer 104 Est GFR (MDRD) Non-Af 86 BUN/Creatinine Ratio 12.9 Glucose 75 Calcium 8.5 Troponin I High Sens 5 Radiography Diagnostic Testing: Clinical Impression(s) from Imaging Studies Chest X-Ray 09/13/22 17:02 IMPRESSION: Normal x-ray examination of the chest. Electronically Signed: Jose Nevarez MD at 17:17 EDT , Treatment and Re-Evaluation :: I have personally performed a face to face assessment of the patient and have reviewed the SABRINA Note. I performed a substantive portion of the visit including all aspects of the following. My keene findings include: History: Patient's been having some pain since . She has 1 spot on her back in the middle that is somewhat sore. She intermittently gets some pain in the front of the chest and she gets palpitations. Her palpitations are feeling as though her heart is slightly irregular but not really fast. She does not get lightheaded dizzy short of breath nauseated or vomiting. A couple times with palpitations she is felt mildly short of breath but those are uncommon. The pain has been constant. Nothing makes it better or worse. It has not moved radiated or migrated. No leg pain or swelling. No recent travel surgery or immobilization personal family history of DVT or PE. No family history of heart disease. She quit smoking in 2013. She is not diabetic hypertensive or high cholesterol. She does not feel ill. I do note that on Thursday she got a new tattoo. This was on her left forearm. She is states that while getting the tattoo she was sitting there for many hours and she kept her neck bent down watching the whole time. Doing this motion does somewhat create the symptoms but not completely. Exam: She does have some mild spinal and mostly right paraspinal tenderness probably at about the T9 level. But no skin changes there. No chest wall tenderness. Heart is regular. There is no murmur. Peripheral pulses are equal x4. Lungs are completely clear and she takes good deep breaths without pain. She is not hypoxic or tachycardic. Medical Decision Making: Patient forgot and she actually is on control. But her symptoms and exam and vitals do not match that of a pulmonary embolus. Discharge Plan Triage Chief Complaint: Chest Pain ED Midlevel Provider: Marcelina Vizcarra ED Provider: Raulito Chang Dx/Rx/DC Orders Clinical Impression: Chest pressure, Back pain, Intermittent palpitations Instructions: ED Chest Pain, Noncardiac Prescriptions: No Action venlafaxine 150 mg capsule,extended release 24hr 150 mg PO QHS Qty: 30 Label Comments: TAKE 1 CAPSULE BY MOUTH EVERY DAY norgestimate-ethinyl estradiol 1 EACH tablet 1 ea PO DAILY pantoprazole 40 MG tablet 80 tab PO QHS lamotrigine 25 tablet 50 mg PO QHS aripiprazole 2 MG tablet 2 mg PO QHS Primary Care Provider: Mandie Garcia Referrals: Mandie Garcia PA [Primary Care Provider] - 3-5 Days Activity Restrictions/Additional Instructions: Follow up with PCP 3-5 days. Return for any worsening of symptoms. Disposition Disposition: Home, Self Care Discharge Date/Time: 09/13/22 17:55
[2022-09-13 16:43] LABS: Absolute Lymphocyte Count 2.91 X10^3/uL (0.83-4.51); Absolute Neutrophil Count 4.2 X10^3/uL (2.0-7.7); Basophil# 0.05 X10^3/uL; Basophil% 0.6 % (0-1); Eosinophil# 0.29 X10^3/uL; Eosinophils% 3.6 % (0-5); Hematocrit 37.6 % (37-47); Hemoglobin 12.4 g/dL (12.0-15.0); Lymphocyte # 2.91 X10^3/ul (0.83-4.51); Lymphocyte % 36.1 % (19-41); Mean Corpuscular Hgb 30.1 pg (27.0-32.0); Mean Corpuscular Volume 91.3 fL (81-99); Mean Platelet Vol. 10.4 fl (6.2-12.0); Monocyte# 0.63 X10^3/uL; Monocyte% 7.8 % (0-10); NRBC Flagged by Analyzer 0 % (0-5); Neutrophil # 4.17 X10^3/uL (2.7-7.7); Neutrophil % 51.8 % (47-70); Platelet Count 314 K/mm3 (150-450); RBC Distribution Width CV 12.8 % (11.6-14.6); RBC Distribution Width SD 42.5 fl (35.1-43.9); Red Blood Count 4.12 M/mm3 (4.2-5.4); White Blood Count 8.1 K/mm3 (4.4-11.0)
[2022-09-13 17:01] VITALS: BP 130/84; PULSE 78; RESP 18; O2SAT 100
[2022-09-13 17:01] LABS: Anion Gap 5 (5-15); BUN 10 mg/dL (7-18); BUN/Creat Ratio 12.9 RATIO (10-20); Calcium,Total 8.5 mg/dL (8.5-10.1); Chloride 109 mmol/L (98-107); Creatinine, Serum 0.78 mg/dL (0.55-1.02); EST Glomerular Filtration Rate 86 mL/min (>60); Est Glom Filt Rate - Afr Amer 104 mL/min (>60); Estimated Creatinine Clearance 76.93 ml/min; Glucose 75 mg/dL (74-106); Potassium 3.4 mmol/L (3.5-5.1); Sodium Level 140 mmol/L (136-145); Troponin-I HS 5 pg/mL (3.0-54.0)
--- NOTE | 2022-09-13 17:02 | RAD_ITS ---
STUDY: X-RAY CHEST REASON FOR EXAM: Female, 42 years old. chest pain TECHNIQUE: Single AP portable view of the chest. COMPARISON: 04/12/2019 FINDINGS: The lungs are clear and expanded. There is no demonstrated pleural abnormality. Normal size heart. Normal mediastinum and sania. Normal visualized pulmonary arteries. Normal visualized aortic arch and descending thoracic aorta. Normal visualized thoracic spine. Normal visualized ribs, clavicles, and shoulders. There is no demonstrated abnormality of the visualized soft tissue structures of the upper abdomen. RAD/Chest 1 View (Portable) IMPRESSION: Normal x-ray examination of the chest. Electronically Signed: Jose Nevarez MD at 17:17 EDT ,
[2022-09-13 17:45] VITALS: BP 145/79; PULSE 74; RESP 16; TEMP 36.8; O2SAT 99
== END 2022-09-13 17:55 | disposition home or self-care (01) ==
PROVIDERS: Physician Assistant; Emergency Provider Emergency Medicine; PCP Physician Assistant; Visit Provider Emergency Medicine
DX: R07.89 Other chest pain (principal); R00.2 Palpitations; M54.9 Dorsalgia, unspecified; Z87.891 Personal history of nicotine dependence
CPT/HCPCS: 71045; 80048; 84484; 85025; 93005; 99284; A4216

== ENCOUNTER 2022-12-10 15:29 | Emergency (ER) | payer MEDICAID, SELFPAY ==
[2022-12-10 15:31] VITALS: BP 117/82; PULSE 82; RESP 16; TEMP 36.4; O2SAT 99
[2022-12-10 15:36] VITALS: BMI 40.7
--- NOTE | 2022-12-10 15:44 | EDS_ITS ---
HPI History of Present Illness Chief Complaint: Lower Extremity Injury Detail of Chief Complaint: Left knee pain Informant: patient Narrative Narrative: Patient presents with acute on chronic left knee pain. She has been having knee pain for about 6 weeks or so. She had injections and has been followed by orthopedics. She has an MRI scheduled for this weekend. Today she went to step up onto a bleacher and felt a popping sensation in her anterior knee. She now has worsened knee pain and difficulty with weightbearing. She did drive herself to the emergency room. She denies paresthesias. [facility] Medical History (Updated 12/10/22 @ 16:[address] Mary Esparza MD) Arthritis Back pain Chest pain Difficulty balancing Fatigue Knee pain Migraines Shoulder pain SOB (shortness of breath) Stomach ulcer Home Medications norgestimate 0.25 mg-ethinyl estradiol 35 mcg tablet 1 ea PO DAILY bcp 12/10/18 [History Last Taken Unknown] pantoprazole 40 mg tablet,delayed release 80 tab PO QHS gerd 12/10/18 [History Last Taken 01/31/20] venlafaxine 150 mg capsule,extended release 24 hr 150 mg PO QHS #30 caps 03/21/19 [History Last Taken Unknown] lamotrigine 25 mg tablet 50 mg PO QHS 04/12/19 [History Last Taken Unknown] aripiprazole 2 mg tablet 2 mg PO QHS 01/19/20 [History Last Taken Unknown] diclofenac sodium 1 % topical gel (Voltaren Arthritis Pain) 4 g topical TID #100 grams 11/28/22 [Rx Last Taken Unknown] prednisone 20 mg tablet 20 mg PO DAILY #5 tabs 11/28/22 [Rx Last Taken Unknown] tramadol 50 mg tablet 50 mg PO Q4H PRN PRN Pain #20 tabs 12/10/22 [Rx Last Taken Unknown] Allergy/AdvReac Type Severity Reaction Status Date / Time lansoprazole [From Prevacid] Allergy Unknown Verified 12/10/22 15:31 rabeprazole [From Aciphex] Allergy Hives Verified 12/10/22 15:31 Sulfa (Sulfonamide Allergy Unknown Verified 12/10/22 15:31 Antibiotics) omeprazole [From Prilosec] AdvReac Other Verified 12/10/22 15:31 omeprazole magnesium AdvReac Other Verified 12/10/22 15:31 [From Prilosec] Surgical History Gastric bypass status for obesity History of bilateral breast reduction surgery History of cholecystectomy History of tonsillectomy Social History Smoking Status: Former smoker ROS ROS ED Constitutional Constitutional ED: Denies chills or fever(s) Eyes Eyes: Denies discharge from eye(s) ENT ENT ED: Denies discharge from eye(s), rhinorrhea or sore throat Cardiovascular Cardiovascular: Denies chest pain Respiratory/Chest Respiratory/Chest: Denies cough or dyspnea Gastrointestinal Gastrointestinal: Denies abdominal pain, nausea or vomiting Genitourinary Genitourinary ED: Denies dysuria Musculoskeletal Musculoskeletal: Reports extremity pain; Denies back pain Integumentary Denies Abrasions or rash Neurologic Neurologic: Denies headache(s) or weakness Psychiatric Psychiatric: Denies anxiety or depression Allergic/Immunologic Allergic/Immunologic ED: Denies lip swelling or urticaria EXAM Physical Exam Const Vital Signs: 12/10/22 15:31 Temperature 97.6 F L Temperature Source Temporal Pulse Rate 82 Respiratory Rate 16 Blood Pressure 117/82 H Blood Pressure Mean 93 Pulse Ox 99 Oxygen Delivery Method Room Air Positive well nourished and well developed General Appearance ED: well developed HEENT Reports normocephalic and head/scalp atraumatic Eyes PERRL and EOMs intact bilaterally Neck supple Chest Wall inspection of chest normal and palpation of chest normal Resp normal respiratory effort and clear to auscultation bilaterally Cardio regular rate and regular rhythm GI Palpation: soft Extremity normal to inspection Extremity Narrative: 10 palpation along the anterior knee as well as medial joint line. Ligaments tight on testing. Patient is able to raise her leg off the bed without difficulty. No tenderness at the hip. Strong distal pulses are noted with normal sensation. Neuro oriented x3 and no sensory deficits noted Neuro Narrative: Decreased range of motion left knee secondary to pain. Sensorium / Orientation: alert Psych mental status grossly normal Skin no rashes or lesions noted MDM MDM MDM Narrative Medical decision making narrative: I did review the last orthopedic note. Patient will be sent to x-ray for imaging of the left knee to evaluate for avulsion fracture or other acute injury. Differential diagnosis includes fracture, sprain, strain, meniscus injury. Radiography Diagnostic Testing: Clinical Impression(s) from Imaging Studies Knee X-Ray 12/10/22 15:50 IMPRESSION: Negative. Electronically Signed: Toi José DO at 16:10 EDT , Treatment and Re-Evaluation Narrative: Left knee x-ray per my interpretation reveals no acute bony injury. Radiology interpretation is reviewed and agrees. Given the patient's previous gastric bypass I am unable to prescribe anti-inflammatories for her. We will write her a short course of tramadol which she has tolerated well in the past. She will be given either crutches or a walker to help her offload weight from the left knee. She is already scheduled for an MRI in 3 days. She will follow-up with her orthopedist following this MRI. Discharge Plan Triage Chief Complaint: Lower Extremity Injury ED Provider: Mary Esparza Dx/Rx/DC Orders Clinical Impression: Left knee sprain Instructions: ED Knee Sprain Prescriptions: New tramadol 50 mg tablet 50 mg PO Q4H PRN PRN (Reason: Pain) Qty: 20 0RF No Action venlafaxine 150 mg capsule,extended release 24hr 150 mg PO QHS Qty: 30 Patient Comments: TAKE 1 CAPSULE BY MOUTH EVERY DAY prednisone 20 mg tablet 20 mg PO DAILY Qty: 5 0RF diclofenac sodium [Voltaren Arthritis Pain] 1 % gel 4 g topical TID Qty: 100 0RF Rx Instructions: apply to single knee TID norgestimate-ethinyl estradiol 1 EACH tablet 1 ea PO DAILY pantoprazole 40 MG tablet 80 tab PO QHS lamotrigine 25 tablet 50 mg PO QHS aripiprazole 2 MG tablet 2 mg PO QHS Primary Care Provider: Mandie Garcia Referrals: Mandie Garcia PA [Primary Care Provider] - Ino Basurto PA [Med Staff - Adv Practice Prof] - 1 Week Disposition Disposition: Home, Self Care
--- NOTE | 2022-12-10 15:50 | RAD_ITS ---
INDICATION: injury EXAMINATION/TECHNIQUE: X-RAY - LEFT XR Knee 4 Views COMPARISON: FINDINGS: SOFT TISSUES: No soft tissue swelling or gas. No radiopaque foreign body. BONES/JOINTS: No acute fracture or subluxation.. Normal alignment. Preservation of the joint space.. No sclerotic or destructive changes observed. RAD/Knee 4 or More Views IMPRESSION: Negative. Electronically Signed: Toi José DO at 16:10 EDT ,
== END 2022-12-10 16:43 | disposition home or self-care (01) ==
PROVIDERS: Emergency Provider Emergency Medicine; PCP Physician Assistant; Visit Provider Emergency Medicine
DX: S83.92XA Sprain of unspecified site of left knee, initial encounter (principal); Z87.891 Personal history of nicotine dependence; X50.1XXA Overexertion from prolonged static or awkward postures, initial encounter; Z98.84 Bariatric surgery status
CPT/HCPCS: 73564; 99284

== ENCOUNTER → 2022-12-13 | Outpatient (CLI) | payer MEDICAID, SELFPAY ==
--- NOTE | 2022-12-13 07:36 | MRI_ITS ---
INDICATION: pain L x 2 months EXAMINATION: MRI - LEFT MR LE Joint W/O Contrast TECHNIQUE: Multiplanar and multisequence MR images of the LEFT knee without contrast. IV Contrast Dosage and Agent: None. COMPARISON: Right knee MRI March 11, 2019. Left knee radiograph December 10, 2022. FINDINGS: BONE: No fracture or abnormal bone marrow signal. JOINT: No pathologic effusion, synovial hypertrophy, or intra-articular body. MUSCLES: Unremarkable. MENISCI: Medial and lateral menisci are intact. CRUCIATE LIGAMENTS: Anterior and posterior cruciate ligaments are intact. COLLATERAL LIGAMENTS: Medial collateral ligament and lateral collateral ligamentous complex, inclusive of the popliteal tendon, are intact. CARTILAGE: Full-thickness mid medial femoral condyle and tibial plateau chondral loss without subchondral edema. Diffuse lateral compartment chondral thinning without full thickness loss or subchondral edema. 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 MRI/Lower Ext Joint Only (Routine) IMPRESSION: Full-thickness medial compartment chondral loss and grade 2 lateral facet patellar chondromalacia without subchondral edema. 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
== END | disposition home or self-care (01) ==
LOC: MRI 07:46
PROVIDERS: PCP Physician Assistant; Referring Provider Physician Assistant; Visit Provider Physician Assistant
DX: M25.561 Pain in right knee (principal); M23.91 Unspecified internal derangement of right knee
CPT/HCPCS: 73721

== ENCOUNTER 2024-03-25 15:40 | Emergency (ER) | payer MEDICAID, SELFPAY ==
[2024-03-25 15:41] VITALS: BP 142/114; PULSE 81; RESP 18; TEMP 36.2; O2SAT 98; BMI 42.8
--- NOTE | 2024-03-25 15:43 | EKG12_ITS ---
Test Reason : CP Blood Pressure : */* mmHG Vent. Rate : 81 BPM Atrial Rate : 81 BPM P-R Int : 156 ms QRS Dur : 90 ms QT Int : 390 ms P-R-T Axes : 54 22 28 degrees QTcB Int : 453 ms Normal sinus rhythm Normal ECG When compared with ECG of 13-Sep-2022 16:10, No significant change was found Confirmed by Cedric Stevens ([id number]), news assignment editor DON FLETCHER ([id number]) on 03/29/2024 9:30:06 AM Referred By: Confirmed By: Cedric Stevens
[2024-03-25 16:01] VITALS: O2SAT 99
--- NOTE | 2024-03-25 16:10 | RAD_ITS ---
STUDY: X-RAY CHEST REASON FOR EXAM: Female, 44 years old. chest pain TECHNIQUE: AP portable COMPARISON: September 13, 2022 FINDINGS: The lungs are clear and expanded. There is no demonstrated pleural abnormality. Normal size heart. Normal mediastinum and sania. Normal visualized pulmonary arteries. Normal visualized aortic arch and descending thoracic aorta. Normal visualized thoracic spine. Normal visualized ribs, clavicles, and shoulders. There is no demonstrated abnormality of the visualized soft tissue structures of the upper abdomen. No significant change since prior exam RAD/Chest 1 View (Portable) IMPRESSION: Normal x-ray examination of the chest. Electronically Signed: Shashi Jacobo MD at 16:34 EDT ,
[2024-03-25 16:11] LABS: Absolute Lymphocyte Count 2.77 X10^3/uL (0.83-4.51); Basophil# 0.08 X10^3/uL; Basophil% 0.9 % (0-1); Eosinophil# 0.24 X10^3/uL; Eosinophils% 2.8 % (0-5); Hematocrit 43.2 % (37-47); Hemoglobin 14.2 g/dL (12.0-15.0); Lymphocyte # 2.77 X10^3/ul (0.83-4.51); Mean Corp Hgb Conc 32.9 g/dL (32-36); Mean Corpuscular Hgb 30.1 pg (27.0-32.0); Mean Corpuscular Volume 91.7 fL (81-99); Mean Platelet Vol. 10.9 fl (6.2-12.0); Monocyte# 0.52 X10^3/uL; NRBC Flagged by Analyzer 0 % (0-5); Neutrophil # 5.02 X10^3/uL (2.7-7.7); Neutrophil % 58.1 % (47-70); Platelet Count 356 K/mm3 (150-450); RBC Distribution Width CV 12.8 % (11.6-14.6); RBC Distribution Width SD 43.5 fl (35.1-43.9); Red Blood Count 4.71 M/mm3 (4.2-5.4); White Blood Count 8.7 K/mm3 (4.4-11.0)
[2024-03-25 16:26] LABS: Anion Gap 6 (5-15); BUN 12 mg/dL (7-18); BUN/Creat Ratio 14.6 RATIO (10-20); Chloride 108 mmol/L (98-107); Creatinine, Serum 0.82 mg/dL (0.55-1.02); EST Glomerular Filtration Rate 80 mL/min (>60); Est Glom Filt Rate - Afr Amer 97 mL/min (>60); Estimated Creatinine Clearance 103.07 ml/min; Glucose 93 mg/dL (74-106); Potassium 3.7 mmol/L (3.5-5.1); Sodium Level 140 mmol/L (136-145); Troponin-I HS (w/2H Reflex) 3 pg/mL (3.0-54.0)
--- NOTE | 2024-03-25 16:26 | EX.ED.DYSGE1 ---
HPI <REN Love - Last Filed: 03/25/24 19:00> History of Present Illness Chief Complaint: Chest Pain Narrative Narrative: Patient is a 44-year-old female with history of GERD, anxiety, depression, chronic back and neck pain presenting to the emergency department for chest pain, back pain, left arm pain. Patient states that she was in [employer] today when she started with some sharp back pain, that went to the chest, down her left arm. Patient states that it is a tightness like sensation, she denies any recent travel, she denies any nausea or vomiting. Patient states that this did concern her, and her PCP is now retiring and she has nobody to follow-up with. [facility] <REN Love - Last Filed: 03/25/24 19:00> [facility] Medical History Osteoarthritis of left knee Back pain Difficulty balancing Knee pain Chest pain Migraines Fatigue Stomach ulcer Shoulder pain SOB (shortness of breath) Arthritis Home Medications ?Medication ?Instructions ?Recorded ?Last Taken ?Type norgestimate 0.25 mg-ethinyl 1 ea PO DAILY bcp 12/10/18 Unknown History estradiol 35 mcg tablet pantoprazole 40 mg tablet,delayed 80 tab PO QHS gerd 12/10/18 01/31/20 History release venlafaxine 150 mg 150 mg PO QHS #30 caps 03/21/19 Unknown History capsule,extended release 24 hr lamotrigine 25 mg tablet 50 mg PO QHS 04/12/19 Unknown History diclofenac sodium 1 % topical gel 4 g topical TID #100 grams 11/28/22 Unknown Rx (Voltaren Arthritis Pain) methylprednisolone 4 mg tablets in See Rx Instructions PO PER PKG DIR 12/29/23 Unknown Rx a dose pack (Medrol (Tarik)) #21 tabs Allergy/AdvReac Type Severity Reaction Status Date / Time lansoprazole (From Prevacid) Allergy Unknown Verified 03/25/24 15:41 rabeprazole (From Aciphex) Allergy Hives Verified 03/25/24 15:41 Sulfa (Sulfonamide Allergy Unknown Verified 03/25/24 15:41 Antibiotics) omeprazole (From Prilosec) AdvReac Other Verified 03/25/24 15:41 omeprazole magnesium (From AdvReac Other Verified 03/25/24 15:[facility] Surgical History Gastric bypass status for obesity History of cholecystectomy History of tonsillectomy History of bilateral breast reduction surgery Social History Smoking Status: Former smoker ROS <WILLIS LoveC - Last Filed: 03/25/24 19:00> ROS ED ROS Narrative Constitutional: Negative for fever, chills, weight loss, weakness Eyes: Negative for vision loss, vision change, double vision ENT: Negative for any sore throat, ear pain, congestion Cardiovascular: Negative for any palpitations. Positive for chest pain, tightness Respiratory: Negative for any cough, sputum production, hemoptysis, dyspnea, dyspnea on exertion, orthopnea Gastrointestinal: Negative for any abdominal pain, nausea, vomiting, diarrhea, constipation, blood in stool, blood in vomit : Negative for any urinary frequency, dysuria, retention, blood in urine Muscle skeletal: Negative for any neck pain, back pain. Positive pain down the left arm Neurological: Negative for any headache, syncope, dizziness Skin: Negative for any rashes, itching, abrasions, lacerations Psychiatric: Negative for any depression, anxiety, stress, suicidal ideation, homicidal ideation Hematologic: Negative for any excessive bruising, easy bleeding EXAM <REN Love - Last Filed: 03/25/24 19:00> Physical Exam Narrative Exam Narrative: Vital signs reviewed. HEET: Head normocephalic atraumatic, TMs clear bilaterally. Posterior pharynx is clear, moist mucous membranes. Nares clear bilaterally. Neck: Supple with no lymphadenopathy or tenderness. No signs of meningismus. Cardiac: Regular rate and rhythm no murmurs gallops or rubs, equal peripheral pulses bilaterally. Respiratory: Lungs clear to auscultation bilaterally. No chest tenderness. Abdomen: Soft, nontender, nondistended. No abdominal bruit or pulsatile masses. No hepatosplenomegaly Extremities: No peripheral edema, no signs of gross trauma or deformity. Active full range of motion of all extremities. Neuro: Cranial nerves II through XII intact, no focal neurological deficits. Skin: Clean dry and intact with no rash, purpura, petechiae, vesicles or pustules. Backs/flank: No CVA tenderness, no midline spinal tenderness, no deformity. Psych: Normal mood and affect. No SI, HI or acute psychosis. Const Vital Signs: 03/25/24 15:41 03/25/24 16:01 03/25/24 16:01 Temperature 97.2 F L Temperature Source Temporal Pulse Rate 81 Respiratory Rate 18 Respiratory Effort Normal Non-Labored Blood Pressure 142/114 H Blood Pressure Mean 123 Pulse Ox 98 99 Oxygen Delivery Method Room Air Room Air 03/25/24 16:41 03/25/24 17:00 03/25/24 18:00 Temperature Temperature Source Pulse Rate 69 64 67 Respiratory Rate 18 18 18 Respiratory Effort Blood Pressure 124/77 H 116/75 130/73 H Blood Pressure Mean 92 88 92 Pulse Ox 98 98 97 Oxygen Delivery Method Room Air Room Air <Dr. Kate Richardson DO - Last Filed: 03/30/24 00:31> Physical Exam Const Vital Signs: 03/25/24 15:41 03/25/24 16:01 03/25/24 16:01 Temperature 97.2 F L Temperature Source Temporal Pulse Rate 81 Respiratory Rate 18 Respiratory Effort Normal Non-Labored Blood Pressure 142/114 H Blood Pressure Mean 123 Pulse Ox 98 99 Oxygen Delivery Method Room Air Room Air 03/25/24 16:41 03/25/24 17:00 03/25/24 18:00 Temperature Temperature Source Pulse Rate 69 64 67 Respiratory Rate 18 18 18 Respiratory Effort Blood Pressure 124/77 H 116/75 130/73 H Blood Pressure Mean 92 88 92 Pulse Ox 98 98 97 Oxygen Delivery Method Room Air Room Air [facility] <REN Love - Last Filed: 03/25/24 19:00> [facility] Lab Data Labs: Laboratory Results - last 24 hr 03/25/24 03/25/24 03/25/24 15:50 16:32 17:59 WBC 8.7 RBC 4.71 Hgb 14.2 Hct 43.2 MCV 91.7 MCH 30.1 MCHC 32.9 RDW Std Deviation 43.5 RDW Coeff of Renan 12.8 Plt Count 356 MPV 10.9 Immature Gran % (Auto) 0.200 Neut % (Auto) 58.1 Lymph % (Auto) 32.0 Frontier % (Auto) 6.0 Eos % (Auto) 2.8 Baso % (Auto) 0.9 Absolute Neuts (auto) 5.0 Absolute Lymphs (auto) 2.77 Nucleated RBC % 0 D-Dimer Quant (PE/DVT) < 0.27 L Sodium 140 Potassium 3.7 Chloride 108 H Carbon Dioxide 26.0 Anion Gap 6 BUN 12 Creatinine 0.82 Estim Creat Clear Calc 103.07 Est GFR (MDRD) Af Amer 97 Est GFR (MDRD) Non-Af 80 BUN/Creatinine Ratio 14.6 Glucose 93 Calcium 9.0 Troponin I High Sens 3 4 Radiography Diagnostic Testing: Clinical Impression(s) from Imaging Studies Chest X-Ray 03/25/24 16:10 IMPRESSION: Normal x-ray examination of the chest. Electronically Signed: Shashi Jacobo MD at 16:34 EDT , EKG Normal sinus rhythm: Attestation: I personally reviewed and interpreted this EKG as follows: Comments: Normal sinus rhythm, rate of 81 bpm, WA interval 156 ms, QRS duration 90 ms, no acute ST elevation, no acute infarct noted. Treatment and Re-Evaluation :: Differential diagnosis includes however is not limited to: ACS, AZ, PE, muscle strain, cervical radiculopathy, community-acquired pneumonia Patient appears generally well, vital signs are stable, patient is nontoxic-appearing. Presenting to the emerged department with complaints of chest pain, back pain, left arm pain. Full cardiac workup will be completed, 2 troponins, dimer. Patient received a two-view chest x-ray. Patient received 4 baby aspirin. All radiologic examinations were read, reviewed by the emergency department attending. From these reads, a plan of care will be put in place. Patient CBC was unremarkable, patient's D-dimer was negative, BMP was unremarkable. Initial troponin was 3 which is negative. At this time, is no evidence of any PE or ACS. Patient received 1 more troponin. Patient's second troponin was negative. At this time, there is no evidence of any ACS AZ PE. Patient will follow-up closely with her PCP. Patient feels much better after the examination. She is instructed return for any worsening symptoms. Happy with plan of care, stable for discharge <Dr. Kate Richardson, DO - Last Filed: 03/30/24 00:31> MDM Lab Data Labs: Laboratory Results - last 24 hr 03/25/24 03/25/24 03/25/24 15:50 16:32 17:59 WBC 8.7 RBC 4.71 Hgb 14.2 Hct 43.2 MCV 91.7 MCH 30.1 MCHC 32.9 RDW Std Deviation 43.5 RDW Coeff of Renan 12.8 Plt Count 356 MPV 10.9 Immature Gran % (Auto) 0.200 Neut % (Auto) 58.1 Lymph % (Auto) 32.0 Frontier % (Auto) 6.0 Eos % (Auto) 2.8 Baso % (Auto) 0.9 Absolute Neuts (auto) 5.0 Absolute Lymphs (auto) 2.77 Nucleated RBC % 0 D-Dimer Quant (PE/DVT) < 0.27 L Sodium 140 Potassium 3.7 Chloride 108 H Carbon Dioxide 26.0 Anion Gap 6 BUN 12 Creatinine 0.82 Estim Creat Clear Calc 103.07 Est GFR (MDRD) Af Amer 97 Est GFR (MDRD) Non-Af 80 BUN/Creatinine Ratio 14.6 Glucose 93 Calcium 9.0 Troponin I High Sens 3 4 Radiography Diagnostic Testing: Clinical Impression(s) from Imaging Studies Chest X-Ray 03/25/24 16:10 IMPRESSION: Normal x-ray examination of the chest. Electronically Signed: Shashi Jacobo MD at 16:34 EDT Reading Location ID and State: [address] [place] [address] Tel , Service support , Treatment and Re-Evaluation :: Differential diagnosis includes however is not limited to: ACS, AZ, PE, muscle strain, cervical radiculopathy, community-acquired pneumonia Patient appears generally well, vital signs are stable, patient is nontoxic-appearing. Presenting to the emerged department with complaints of chest pain, back pain, left arm pain. Full cardiac workup will be completed, 2 troponins, dimer. Patient received a two-view chest x-ray. Patient received 4 baby aspirin. All radiologic examinations were read, reviewed by the emergency department attending. From these reads, a plan of care will be put in place. Patient CBC was unremarkable, patient's D-dimer was negative, BMP was unremarkable. Initial troponin was 3 which is negative. At this time, is no evidence of any PE or ACS. Patient received 1 more troponin. Patient's second troponin was negative. At this time, there is no evidence of any ACS AZ PE. Patient will follow-up closely with her PCP. Patient feels much better after the examination. She is instructed return for any worsening symptoms. Happy with plan of care, stable for discharge I have personally performed a face to face assessment of the patient and have reviewed the SABRINA Note. I performed a substantive portion of the visit including all aspects of the following. My keene findings include: History is patient presents to the emergency room for chest pain, back pain left arm pain. Pain is worse with movements. Does have a history of muscle skeletal pain. Cardiac pulmonary workup is obtained however to rule out a more sinister cause of the pain. This includes delta high-sensitivity troponin, EKG, chest x-ray and D-dimer. Workup is largely negative. Patient overall is well-appearing emergency room with normal vital signs. At this time I think she is a good candidate for outpatient follow-up. Low suspicion for acute cardiac cause of her pain. Is given return precautions. Other additions or changes: [None] Discharge Plan Triage Chief Complaint: Chest Pain ED Midlevel Provider: Alex Mccartney ED Provider: Kate Richardson Dx/Rx/DC Orders Clinical Impression: Chest pain Instructions: ED Chest Pain, Noncardiac, ED Chest Pain, Uncertain Cause Prescriptions: No Action venlafaxine 150 mg capsule,extended release 24hr 150 mg PO QHS Qty: 30 Patient Comments: TAKE 1 CAPSULE BY MOUTH EVERY DAY diclofenac sodium [Voltaren Arthritis Pain] 1 % gel 4 g topical TID Qty: 100 0RF Rx Instructions: apply to single knee TID methylprednisolone [Medrol (Tarik)] 4 mg tablets,dose pack See Rx Instructions PO PER PKG DIR Qty: 21 0RF Rx Instructions: PO PER PKG DIR norgestimate-ethinyl estradiol 1 EACH tablet 1 ea PO DAILY pantoprazole 40 MG tablet 80 tab PO QHS lamotrigine 25 tablet 50 mg PO QHS Primary Care Provider: Mandie Garcia Referrals: Lisa Hernandez MD [Med Staff - [employer]] - Mandie Garcia PA [Primary Care Provider] - Activity Restrictions/Additional Instructions: Continue to follow-up outpatient. Follow-up with PCP. Print Language: Maltese Disposition Disposition: Home, Self Care Discharge Date/Time: 03/25/24 19:11
[2024-03-25] MEDS: Aspirin 81 MG TAB.CHEW 324 MG PO (16:31)
[2024-03-25 16:41] VITALS: BP 124/77; PULSE 69; RESP 18; O2SAT 98
[2024-03-25 17:00] VITALS: BP 116/75; PULSE 64; RESP 18; O2SAT 98
[2024-03-25 17:18] LABS: D-Dimer Quantitative (DVT/PE) < 0.27 FEU/ug/m (0.27-0.49)
[2024-03-25 18:00] VITALS: BP 130/73; PULSE 67; RESP 18; O2SAT 97
[2024-03-25 18:02] LABS: Reflex Troponin-HS? (from REC) Y
[2024-03-25 18:24] LABS: Troponin-I HS 4 pg/mL (3.0-54.0)
[2024-03-25 19:03] VITALS: BP 127/77; PULSE 69; RESP 16; TEMP 36.6; O2SAT 99
== END 2024-03-25 19:11 | disposition home or self-care (01) ==
PROVIDERS: Nurse Practitioner; Emergency Provider Emergency Medicine; PCP Physician Assistant; Visit Provider Emergency Medicine
DX: R07.9 Chest pain, unspecified (principal); F41.9 Anxiety disorder, unspecified; Z87.891 Personal history of nicotine dependence; K21.9 Gastro-esophageal reflux disease without esophagitis; F32.A Depression, unspecified
CPT/HCPCS: 71045; 80048; 84484; 85025; 85379; 93005; 99284; A4216

== ENCOUNTER 2024-03-30 07:54 | Outpatient (RCR) | payer MEDICAID, SELFPAY ==
--- NOTE | 2024-03-30 11:31 | HP.PTEVAL_ITS ---
Patient's Visit Information Visit Information Visit Information: DERECK OSPINA is a 44 year old F referred to Physical Therapy by Dr. Larry Hummel MD with a diagnosis of LUMBAR SPONDYLOSIS, NECK PAIN, & CERVIGOGENIC PEREZ. Date of Evaluation: 03/30/24 Physical Therapist: Ania Rubi PT, Cert MDT Visit Plan Frequency: 2x /Week Duration: 4-6 Weeks Plan: Scapular Strengthening. Submax Cervical Isometrics all planes. US at 1.3 W/CM2 100% to B Neck Musculature in Sitting. Moist Heat to Neck as needed. Instruction in Proper Posture Control, Ergonomics with ADL's/work activities and Appropriate Activity Modifications. HEP Instructions. Anterior Pelvic Tilt Correction with Sitting and Standing Activities and Exercises. DLS starting with a neutral spine and progressing ROM as tolerated. HEP inst. US at 1.5 W/CM2 100% TO B Low Back Musculature. Moist Heat to Low Back as needed. 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 L LATERAL PROXIMAL THIGH PAIN. HANNAH SHLD AND PROXIMAL UPPER ARM PAIN. HEADACHES. PATIENT DENIES HANNAH UE AND LE NUMBNESS AND TINGLING. Present since: 25-30 YEARS AGO Pain Scale: WORST 9/10, LEAST 4/10 Currently: NECK 6/10, LOW BACK 5/10 Is it getting better, worse or staying the same: STAYING THE SAME Commenced as a result of: NO APPARENT REASON OTHER THAN FALL OFF OF A SKI LIFT Symptoms at onset: PATIENT CAN NOT REMEMBER Worse: NECK: LIFTING, BENDING, HOLDING PHONE, WORKING ON COMPUTER, DRIVING, CERTAIN SEATS, PROLONGED SITTING. LBP: PROLONGED STANDING, WASHING DISHES, LIFTING, BENDING BACKWARDS. Better: NECK: MASSAGE, ORAL MEDICATION PRESCRIBED, TYLONOL. LOW BACK: ORAL MEDICATIONS PRESCRIBED, TYLONOL, HOME MASSAGER Disturbed sleep: YES Previous history/Previous treatment: YEARS AGO - TRIGGER POINT INJECTIONS ONCE FOR NECK. NO NECK OR BACK SURGERY. CHIROPRACTIC AND PT ON NECK AND BACK IN THE PAST. CHIROPRACTIC HAS BEEN DONE REGULARLY OVER THE YEARS AND USUALLY HELPFUL. PHYSICAL THERAPY HAS NEVER BEEN HELPFUL BUT SHE DOESN'T RE-CALL IT MAKING HER PAIN WORSE BUT IT HAS BEEN A LONG TIME SINCE HAVING IT. Treatment this episode: GABAPENTIN, FLEXERIL AND ANOTHER MUSCLE RELAXER. PRESCRIPTION TYLONOL. Coughing/sneezing/straining: NEGATIVE FOR INCREASING PAIN Dizziness: YES - VERTIGO - PATIENT IS ON MEDICATION. Tinnitus: NO Nausea: AT TIMES WHEN THE PAIN INCREASES. Shortness of Breath: NO Difficulty Swallowing: NO Gait: DOES NOT USE ANY AD'S. NOT LIMITED PER PATIENT REPORT. DENIES LIMPING. Bowel or Bladder Dysfunction: PATIENT DENIES Accidents: FALL FROM SKI LIFT ABOUT 20 YEARS AGO Unexplained weight loss: NO Imaging: PATIENT CAN'T RECALL WHEN LAST IMAGING WAS DONE BUT IT WAS THROUGH THE [facility] AND A YEAR OR SO AGO. PMH/Recent major surgery: DEPRESSION AND ANXIETY OTHER: DON'T LET THEM DO ANYTHING STRENUOUS ON YOUR NECK. PATIENT DENIES HAVING ANY SPECIFIC PHYSICIAN RESTRICTIONS OR A LIFTING LIMIT. Objective Objective: Sitting/Standing Posture: INCREASED PAIN STANDING WITH EQUAL WT BEARING B LE'S. SHIFTING WEIGHT TO R LE DECREASES LBP IN STANDING. SLOUCHED IN SITTING. ACTIVE CORRECTION OF SITTING POSTURE HAS NE ON NECK AND DECREASES LBP AFTER DONE TRANSITIONING. DURING TRANSITION THERE IS INCREASED PAIN. ANTERIOR PELVIC TILT IN STANDING. NO RELEVANT LATERAL LUMBAR SHIFT. FORWARD HEAD. ROUNDED SHOULDERS. DOWAGERS HUMP. Other Observations: THIS PATIENT AMBULATES INDEP'LY INTO PT WITHOUT ANY AD'S OR LOB. ABLE TO INDEP'LY TRANSFER SIT TO STAND WITHOUT UE ASSIST. Sensory deficit: HANNAH UE AND LE LIGHT TOUCH SENSATION GROSSLY INTACT AND SY MMETRICAL ROM deficit: HANNAH UE AND LE ROM WFL BUT PATIENT C/O PAIN WITH ELEVATION OF HANNAH UE'S L>R TODAY BUT SHE REPORTS SOMETIMES IT IS HER R THAT HURTS MORE. PATIENT ALSO WITH C/O LOW BACK PAIN WITH HIP ROM TESTING. Motor deficit: R SHLD 4/5, ELBOW 5/5, HAND 5/5. L SHLD 4/5, ELBOW 5/5, HAND 5/5. L HIP 4-/5, KNEE 5/5, ANKLE 5/5. R HIP 4/5, KNEE 5/5, ANKLE 5/5. Reflexes: UNABLE TO ELICIT HANNAH UE AND LE DTR'S. Dural Signs: NEGATIVE HANNAH UE AND LE'S. Cervical Mvmt Loss: Flex: NIL - INCREASES NECK - NW Pro: NIL - INCREASES NECK - NW Ext: MOD - NE Ret: CAYETANO - INCREASES NECK AND P CHIN - NW RSB: MOD - DECREASES NECK - NB LSB: [place]O - DECREASES NECK - NB R Rot: MIN - NE L Rot: MOD - INCREASES NECK - NW Lumbar mvmt loss: flex - MIN - INCREASES BACK - NW ext - MOD - INCREASES BACK - NW R SG - MIN - DECREASES BACK - NB L SG - MOD - INCREASES BACK - NW Core strength: POOR Balance/Special Test Scores Oswestry Low Back Score: 25 Oswestry Neck Score: 25 Goals Goal 1:: DECREASE C/O HEAD, NECK AND LOW BACK PAIN BY AT LEAST 50% TO EASE ADL'S. Goal Time Frame: 4-6 Weeks Goal 2:: INCREASE PAINFREE LUMBAR ROM TO EASE ADL'S. Goal Time Frame: 4-6 Weeks Goal 3:: INCREASE PAINFREE CERVICAL ROM TO EASE ADL'S. Goal Time Frame: 4-6 Weeks Goal 4:: PATIENT WILL SCORE AT LEAST 5 POINTS BETTER ON THE NECK OSWESTRY QUESTIONNAIRE Goal Time Frame: 4-6 Weeks Goal 5:: PATIENT WILL SCORE AT LEAST 5 POINTS BETTER ON THE BACK OSWESTRY QUESTIONNAIRE Goal Time Frame: 4-6 Weeks Goal 6:: INDEP HEP Goal Time Frame: 4-6 Weeks Rehabilitation Potential Physical Therapy Diagnosis: THIS PATIENT PRESENTS TO PT WITH DECREASED CERVICAL AND LUMBAR ROM, CORE AND POSTURAL WEAKNESS, AND DECREASED AWARENESS OF PROPER POSTURE CONTROL/CORRECTION AND BODY MECHANICS. Rehabilitation Potential: Good Anticipated Interventions Patient/Client Instruction: Educate patient on: Condition, Plan of Care and Risk Factors For the Purpose of:: To improve self management Therapeutic Exercise to Include: Strength training, Body mechanics, Postural t raining, Neuromotor development, Active ROM, Dynamic Lumbar Stabilization and Scapular Strength/Stabilization Thermo therapy (hot pack): Yes Ultrasound (thermal/non thermal): Yes For the Purpose of:: To decrease pain and To improve nutrient delivery to tissue Text: Thank you for the opportunity to evaluate your patient. For Medicare and Medicare HMO plans, please review the plan of care and approve it. It will need to be FAXED BACK to us at [phone] for Medicare purposes. For Medicare only, by signing this I certify the plan of care. Please let me know if there are questions or concerns regarding this plan of care. Physician Signature: Date:
--- NOTE | 2024-08-21 20:41 | HP.PT.NRP ---
Patient Information Patient Information: DERECK OSPINA was seen in my office for initial evaluation on 03/30/24. The following Plan of Care was established for this patient: POC Established Initial Frequency: 2x /Week Initial Duration: 4-6 Weeks Anticipated Interventions Patient/Client Instruction: Educate patient on: Condition, Plan of Care and Risk Factors For the Purpose of:: To improve self management Therapeutic Exercise to Include: Strength training, Body mechanics, Postural training, Neuromotor development, Active ROM, Dynamic Lumbar Stabilization and Scapular Strength/Stabilization Thermo therapy (hot pack): Yes Ultrasound (thermal/non thermal): Yes For the Purpose of:: To decrease pain and To improve nutrient delivery to tissue Last Seen Last Seen: This patient was last seen in our office 03/30/24. Pertinent comments regarding their Physical therapy will appear below: It has been my pleasure to see this patient for a total of 1 visits. This patient has not returned to Physical Therapy for more visits and is appropriate to return to MD for further follow-up as needed. At this point I will be discontinuing this patient from physical therapy. I would be happy to see this patient again in the future if found appropriate by the physician. Thank you! Ania Rubi, PT, Cert MDT Balance/Gait/Functional tests Balance/Special Test Scores Oswestry Low Back Score: 25 Oswestry Neck Score: 25
== END 2024-03-30 19:00 | disposition home or self-care (01) ==
LOC: PT 07:54
PROVIDERS: PCP Physician Assistant; Referring Provider Anesthesiology; Visit Provider Anesthesiology
DX: M47.816 Spondylosis without myelopathy or radiculopathy, lumbar region (principal); M54.2 Cervicalgia; G44.86 Cervicogenic headache
CPT/HCPCS: 97162

== ENCOUNTER 2024-06-27 07:06 | Emergency (ER) | payer MEDICAID, SELFPAY ==
[2024-06-27 07:06] VITALS: BP 112/67; PULSE 82; RESP 16; TEMP 36.7; O2SAT 99; BMI 42.5
--- NOTE | 2024-06-27 07:15 | CT_ITS ---
EXAM: CT Abdomen and Pelvis Without Intravenous Contrast CLINICAL INDICATION: TECHNIQUE: Axial computed tomography images of the abdomen and pelvis without intravenous contrast. This CT exam was performed using one or more of the following dose reduction techniques: automated exposure control, adjustment of the mA and/or kV according to patient size, and/or use of iterative reconstruction technique. COMPARISON: No relevant prior studies available. FINDINGS: LUNG BASES: Unremarkable. No mass. No consolidation. ABDOMEN: LIVER: Unremarkable. GALLBLADDER AND BILE DUCTS: Unremarkable. No calcified stones. No ductal dilation. PANCREAS: Unremarkable. No ductal dilation. SPLEEN: Unremarkable. No splenomegaly. ADRENALS: Unremarkable. No mass. KIDNEYS AND URETERS: Unremarkable. No stones within either kidney. No hydronephrosis. STOMACH AND BOWEL: Evidence of prior gastric surgery. Mild hepatomegaly. volume fecal retention in the colon consistent with constipation. No obstruction. No mucosal thickening. PELVIS: APPENDIX: Normal appendix. BLADDER: Unremarkable. No stones. REPRODUCTIVE: Unremarkable as visualized. ABDOMEN and PELVIS: INTRAPERITONEAL SPACE: Unremarkable. No free air. No significant fluid collection. BONES/JOINTS: No acute fracture. No dislocation. SOFT TISSUES: Umbilical hernia containing fat. VASCULATURE: Unremarkable. No abdominal aortic aneurysm. LYMPH NODES: Unremarkable. No enlarged lymph nodes. CT/Abdomen/Pelvis without Cont IMPRESSION: 1. Normal appendix. 2. Mild hepatomegaly. volume fecal retention in the colon consistent with cons tipation. 3. Umbilical hernia containing fat. 4. No obstructive uropathy. Reading Location: [facility]
[2024-06-27] MEDS: Ondansetron 4 MG/2 ML Vial IV (07:26)
[2024-06-27] MEDS: Morphine 4 MG/ML Syringe IV (07:26)
[2024-06-27] MEDS: Ketorolac 15 MG/ML Vial IV (07:26)
[2024-06-27 07:56] LABS: Absolute Lymphocyte Count 2.72 X10^3/uL (0.83-4.51); Basophil# 0.06 X10^3/uL; Basophil% 0.8 % (0-1); Eosinophil# 0.37 X10^3/uL; Eosinophils% 4.8 % (0-5); Hematocrit 39.7 % (37-47); Hemoglobin 13.2 g/dL (12.0-15.0); Lymphocyte # 2.72 X10^3/ul (0.83-4.51); Lymphocyte % 35.1 % (19-41); Mean Corp Hgb Conc 33.2 g/dL (32-36); Mean Corpuscular Hgb 30.6 pg (27.0-32.0); Mean Corpuscular Volume 92.1 fL (81-99); Mean Platelet Vol. 10.9 fl (6.2-12.0); Monocyte# 0.57 X10^3/uL; Monocyte% 7.4 % (0-10); NRBC Flagged by Analyzer 0 % (0-5); Neutrophil % 51.6 % (47-70); Platelet Count 336 K/mm3 (150-450); RBC Distribution Width CV 12.9 % (11.6-14.6); RBC Distribution Width SD 43.5 fl (35.1-43.9); Red Blood Count 4.31 M/mm3 (4.2-5.4); White Blood Count 7.7 K/mm3 (4.4-11.0)
--- NOTE | 2024-06-27 07:58 | EX.ED.DYSGE1 ---
HPI History of Present Illness Chief Complaint: Flank Pain Detail of Chief Complaint: Right flank pain that woke patient up from sleep at 0100. Informant: patient Onset/Context/Timing Onset: Today (0100) Context: Sudden Onset Timing: Continuous and Waxes and wanes Quality: Pain Location: Inferior the right flank radiating anteriorly right lower quadrant Current Severity: Mild Maximum Severity: Severe Worsened by: Nothing specific Relieved by: nothing Associated Symptoms Associated Symptoms: Nausea Narrative Narrative: Patient is a 44-year-old woman. She has history of anxiety and depression, GERD, osteoarthritis and tobacco use disorder. She presents because she was awakened from sleep at 0100 with pain right flank inferior right flank that radiates anteriorly. This associated with nausea. She denies vomiting or diarrhea. She denies fever, chills night sweats. She denies history of direct or indirect trauma. She denies dysuria, frequency, urgency or hematuria. She denies history of renal ureterolithiasis. She is status postcholecystectomy. She denies history of IBS, Crohn's disease or ulcerative colitis. She denies recent blood or mucus in her stool. She denies recent diarrhea. She denies history of diverticulosis. Patient denies cardiac or respiratory symptoms. Patient has not noted a rash. Prior similar symptoms: No Recent Illness/Hospitalization: No PFSH PFSH Medical History Osteoarthritis of left knee Back pain Difficulty balancing Knee pain Chest pain Migraines Fatigue Stomach ulcer Shoulder pain SOB (shortness of breath) Arthritis Home Medications ?Medication ?Instructions ?Recorded ?Last Taken ?Type norgestimate 0.25 mg-ethinyl 1 ea PO DAILY bcp 12/10/18 Unknown History estradiol 35 mcg tablet pantoprazole 40 mg tablet,delayed 80 tab PO QHS gerd 12/10/18 01/31/20 History release venlafaxine 150 mg 150 mg PO QHS #30 caps 03/21/19 Unknown History capsule,extended release 24 hr lamotrigine 25 mg tablet 50 mg PO QHS 04/12/19 Unknown History diclofenac sodium 1 % topical gel 4 g topical TID #100 grams 11/28/22 Unknown Rx (Voltaren Arthritis Pain) benzonatate 200 mg capsule 200 mg PO TID PRN cough #20 caps 04/11/24 Unknown Rx methylprednisolone 4 mg tablets in See Rx Instructions PO PER PKG DIR 04/11/24 Unknown Rx a dose pack (Medrol (Tarik)) #21 tabs Allergy/AdvReac Type Severity Reaction Status Date / Time lansoprazole (From Prevacid) Allergy Unknown Verified 06/27/24 07:08 rabeprazole (From Aciphex) Allergy Hives Verified 06/27/24 07:08 Sulfa (Sulfonamide Allergy Unknown Verified 06/27/24 07:08 Antibiotics) omeprazole (From Prilosec) AdvReac Other Verified 06/27/24 07:08 omeprazole magnesium (From AdvReac Other Verified 06/27/24 07:08 Prilosec) Surgical History Gastric bypass status for obesity History of cholecystectomy History of tonsillectomy History of bilateral breast reduction surgery Social History Smoking Status: Former smoker ROS ROS ED Constitutional Constitutional ED: Denies chills, fever(s), subjective or sweats Eyes Eyes: Denies blurry vision or change in vision ENT ENT ED: Denies rhinorrhea or sore throat Cardiovascular Cardiovascular: Denies chest pain, orthopnea, palpitations, paroxysmal nocturnal dyspnea or racing heartbeat Respiratory/Chest Respiratory/Chest: Denies cough, dyspnea, dyspnea on exertion, orthopnea or paroxysmal nocturnal dyspnea Gastrointestinal Gastrointestinal: Reports abdominal pain and nausea; Denies constipation, diarrhea, melena or vomiting Genitourinary Genitourinary ED: Reports LMP (females 10-50) Details: Comment: (Approximately 2 weeks ago.); Denies dysuria, hematuria or urinary frequency Musculoskeletal Musculoskeletal: Reports back pain; Denies arthralgias, myalgias or neck pain Integumentary Denies Abrasions or rash Neurologic Neurologic: Denies paresthesias or weakness Psychiatric Psychiatric: Reports anxiety; Denies depression or suicidal ideation Hematologic/Lymphatic Hematologic/Lymphatic: Reports systems reviewed and no addt'l complaints, except as documented EXAM Physical Exam Const Vital Signs: 06/27/24 07:06 06/27/24 09:06 Temperature 98.1 F Temperature Source Temporal Pulse Rate 82 63 Respiratory Rate 16 18 Blood Pressure 112/67 155/96 H Blood Pressure Mean 82 115 Pulse Ox 99 99 Oxygen Delivery Method Room Air Room Air Vital signs are normal. Positive well nourished and well developed Constitutional Narrative: BMI is 42.5 General Appearance ED: well developed and pallor HEENT HEENT Narrative: Head is atraumatic no cephalic. Ears normal. Nares patent. Eyes PERRL and EOMs intact bilaterally General Eye ED: Negative for pale conjunctiva or scleral icterus Neck no lymphadenopathy, supple and no JVD Chest Wall inspection of chest normal and palpation of chest normal Resp normal respiratory effort and clear to auscultation bilaterally Cardio regular rate, regular rhythm, S1 normal heart sound, S2 normal heart sound and no murmurs GI normal to inspection, nondistended, normoactive bowel sounds, non-tender, non-distended and no masses; Negative for hepatosplenomegaly Back/Spine Negative for no CVA tenderness General Back: CVA tenderness right Thoracic Spine / Upper Back: Negative for thoracic spinal tenderness Lumbar Spine / Lower Back: Negative for lumbar spinal tenderness Extremity normal to inspection General Extremety ED: Negative for edema or tenderness General Extremity: Negative for edema Neuro oriented x3, CN's II-XII intact bilaterally and no sensory deficits noted Sensorium / Orientation: alert Motor Exam: strength 5/5 throughout Psych mental status grossly normal Skin no rashes or lesions noted, no wounds and skin turgor normal General Skin Exam: elasticity normal and pallor; Negative for jaundice MDM MDM MDM Narrative Medical decision making narrative: Differential diagnosis would be muscular low back pain, obstructing ureteral stone, atypical presentation for appendicitis, irritable bowel syndrome, obstipation, abdominal pain of unknown etiology. Workup included CT of the abdomen pelvis with out contrast, appropriate blood work which included BMP to assess renal function and electrolytes, CBC to assess white count differential and UA to assess for evidence of infection/blood. History & Record Review Additional record(s) reviewed:: Prior inpatient record (Gastric bypass surgery, [id number]) Lab Data Attestation: I reviewed the patient's lab results. Lab results narrative: CBC is normal. BMP is remarkable for mild hypokalemia. Calcium is slightly low at 8.2. Serum test was negative. Labs: Laboratory Results - last 24 hr 06/27/24 06/27/24 07:31 08:41 WBC 7.7 RBC 4.31 Hgb 13.2 Hct 39.7 MCV 92.1 MCH 30.6 MCHC 33.2 RDW Std Deviation 43.5 RDW Coeff of Renan 12.9 Plt Count 336 MPV 10.9 Immature Gran % (Auto) 0.300 Neut % (Auto) 51.6 Lymph % (Auto) 35.1 Desha % (Auto) 7.4 Eos % (Auto) 4.8 Baso % (Auto) 0.8 Absolute Neuts (auto) 4.0 Absolute Lymphs (auto) 2.72 Nucleated RBC % 0 Sodium 138 Potassium 3.3 L Chloride 106 Carbon Dioxide 28.0 Anion Gap 4 L BUN 11 Creatinine 0.74 Estim Creat Clear Calc 113.65 Est GFR (MDRD) Af Amer 109 Est GFR (MDRD) Non-Af 90 BUN/Creatinine Ratio 14.9 Glucose 78 Calcium 8.2 L Serum , Qual NEGATIVE Urine Color Yellow Urine Clarity Clear Urine pH 6.5 Ur Specific [place] 1.010 Urine Protein Negative Urine Glucose (UA) Normal Urine Ketones Negative Urine Occult Blood Negative Urine Nitrite Negative Urine Bilirubin Negative Urine Urobilinogen Normal Ur Leukocyte Esterase 100 H Urine RBC 0 SEEN Urine WBC 0 SEEN Ur Squamous Epith Cells 0 SEEN Urine Bacteria 0 SEEN Urine Mucus 0 SEEN Radiography Diagnostic Testing: Clinical Impression(s) from Imaging Studies Abdomen/Pelvis CT 06/27/24 07:15 IMPRESSION: 1. Normal appendix. 2. Mild hepatomegaly. volume fecal retention in the colon consistent with constipation. 3. Umbilical hernia containing fat. 4. No obstructive uropathy. Reading Location: [facility] CT of the abdomen pelvis independent reviewed by me at 0758. There is no evidence of renal calculi right or left. There is no evidence of hydronephrosis or hydroureter. There appears to be phleboliths noted in the pelvis. There appears to be calcification of the splenic artery. There is no aneurysmal dilatation. Awaiting formal read by radiologist. Nonspecific gas bowel pattern with some increased fecal matter noted predominately on the left. The interpretation of the CT of the abdomen pelvis without contrast was reviewed. Treatment and Re-Evaluation :: Nurse informing that patient is now complaining of epigastric pain. IV Pepcid and GI cocktail was ordered. She does have a history of GERD. Comments:: Patient was spoken to and reassessed at 1012. Patient was informed the cause of her pain is uncertain. She does have significant stool noted. She also has a fatty liver which is known to her. The GI cocktail and IV Pepcid alleviated her epigastric pain. She was informed this is most likely due to her GERD. This would not be the explanation for her back pain, which in my opinion is musculoskeletal. Recommended ice and acetaminophen since she is not able to take NSAIDs because she is status post gastric bypass surgery. Discharge Plan Triage Chief Complaint: Flank Pain ED Provider: Corey Tristan Dx/Rx/DC Orders Clinical Impression: Low back pain, Right lower quadrant abdominal pain, Obstipation, Acute epigastric pain, Hx of gastroesophageal reflux (GERD) Instructions: ED Back Pain (Acute or Chronic), ED Constipation (Adult) Prescriptions: No Action venlafaxine 150 mg capsule,extended release 24hr 150 mg PO QHS Qty: 30 Patient Comments: TAKE 1 CAPSULE BY MOUTH EVERY DAY diclofenac sodium [Voltaren Arthritis Pain] 1 % gel 4 g topical TID Qty: 100 0RF Rx Instructions: apply to single knee TID methylprednisolone [Medrol (Tarik)] 4 mg tablets,dose pack See Rx Instructions PO PER PKG DIR Qty: 21 0RF Rx Instructions: PO PER PKG DIR benzonatate 200 mg capsule 200 mg PO TID PRN (Reason: cough) Qty: 20 0RF norgestimate-ethinyl estradiol 1 EACH tablet 1 ea PO DAILY pantoprazole 40 MG tablet 80 tab PO QHS lamotrigine 25 tablet 50 mg PO QHS Primary Care Provider: Bettina Ashton Referrals: Mandie Garcia PA [Non-Staff] - 1 Week if not improving Activity Restrictions/Additional Instructions: 1. Apply ice to your right lower back 6-8 times a day. 2. Take Tylenol for your pain. Print Language: Khmer Disposition Disposition: Home, Self Care
[2024-06-27 08:20] LABS: Anion Gap 4 (5-15); BUN 11 mg/dL (7-18); BUN/Creat Ratio 14.9 RATIO (10-20); Calcium,Total 8.2 mg/dL (8.5-10.1); Chloride 106 mmol/L (98-107); Creatinine, Serum 0.74 mg/dL (0.55-1.02); EST Glomerular Filtration Rate 90 mL/min (>60); Est Glom Filt Rate - Afr Amer 109 mL/min (>60); Estimated Creatinine Clearance 113.65 ml/min; Glucose 78 mg/dL (74-106); Potassium 3.3 mmol/L (3.5-5.1); Sodium Level 138 mmol/L (136-145)
[2024-06-27 08:30] LABS: Internal QC Validated? YES +Cl - CLEAR BKGD; Pregnancy, Serum, hCG Quali. NEGATIVE Negative
[2024-06-27 08:49] LABS: Bacteria 0 SEEN /hpf (None Seen); Mucous, Urine 0 SEEN /hpf (<or=2+); Red Blood Cells-Urine 0 SEEN /hpf (0-5); Squamous Epithelial Cells - UA 0 SEEN /hpf (5-10); White Blood Cells 0 SEEN /hpf (0-5)
[2024-06-27 08:53] LABS: Color, Urine Yellow (Yellow); Glucose, Dipstick Normal (Normal); Ketone-Dipstick Negative (Negative); Leukocyte Esterase-Dipstick 100 /ul (Negative); Nitrite-Dipstick Negative (Negative); Occult Blood-Urine Negative /ul (Negative); Protein-Dipstick Negative (Negative); Urine Bilirubin Dipstick Negative (Negative); Urine Clarity Clear (Clear); Urine Urobilinogen Normal (Normal); Urine pH 6.5 (5.0 - 8.0)
[2024-06-27 09:06] VITALS: BP 155/96; PULSE 63; RESP 18; O2SAT 99
[2024-06-27] MEDS: Mag Hydrox/Al Hydrox/Simeth 30 ML UDC PO (09:21)
[2024-06-27] MEDS: Lidocaine 2% Viscous15 ML UDC 15 ML PO (09:21)
[2024-06-27] MEDS: Famotidine 200 MG/20 ML MDV 20 MG in 0.9% Normal Saline (Pres. free 8 ML 300 MG IV (09:32)
[2024-06-27 10:31] VITALS: BP 148/100; PULSE 54; RESP 18; TEMP 36.7; O2SAT 96
== END 2024-06-27 10:37 | disposition home or self-care (01) ==
PROVIDERS: Emergency Provider Emergency Medicine; PCP Clinical Nurse Specialist Adult Health; Visit Provider Emergency Medicine
DX: M54.50 Low back pain, unspecified (principal); K59.00 Constipation, unspecified; R10.31 Right lower quadrant pain; R10.13 Epigastric pain; F41.9 Anxiety disorder, unspecified; R11.0 Nausea; K21.9 Gastro-esophageal reflux disease without esophagitis; Z87.891 Personal history of nicotine dependence
CPT/HCPCS: 74176; 80048; 81001; 84703; 85025; 96374; 96375; 99282; A4216; J2405

== ENCOUNTER 2024-06-28 05:38 | Emergency (ER) | payer MEDICAID, SELFPAY ==
[2024-06-28 05:39] VITALS: BP 151/83; PULSE 82; RESP 18; TEMP 36.6; O2SAT 95; BMI 43.7
--- NOTE | 2024-06-28 06:06 | EX.ED.DYSGE1 ---
HPI History of Present Illness Chief Complaint: Back Informant: patient Narrative Narrative: Patient is a 44-year-old female with past medical history of GERD and osteoarthritis. She states that few days ago she developed pain in the right buttock/low back region. She states there was no trauma or excessive activity. She denies any loss of bowel or bladder control or IV drug use. She states there is been no skin changes and she denies any fevers or sick symptoms. She was seen in the ER roughly 24 hours ago and had a workup with blood work and urine sample which were negative and reported pain relief with medication given. However she states that she was not prescribed medication for home and symptoms have returned and she cannot control them with the [id number] meds and therefore comes in for evaluation. [facility] Medical History Osteoarthritis of left knee Back pain Difficulty balancing Knee pain Chest pain Migraines Fatigue Stomach ulcer Shoulder pain SOB (shortness of breath) Arthritis Home Medications ?Medication ?Instructions ?Recorded ?Last Taken ?Type norgestimate 0.25 mg-ethinyl 1 ea PO DAILY bcp 12/10/18 Unknown History estradiol 35 mcg tablet pantoprazole 40 mg tablet,delayed 80 tab PO QHS gerd 12/10/18 01/31/20 History release venlafaxine 150 mg 150 mg PO QHS #30 caps 03/21/19 Unknown History capsule,extended release 24 hr lamotrigine 25 mg tablet 50 mg PO QHS 04/12/19 Unknown History diclofenac sodium 1 % topical gel 4 g topical TID #100 grams 11/28/22 Unknown Rx (Voltaren Arthritis Pain) benzonatate 200 mg capsule 200 mg PO TID PRN cough #20 caps 04/11/24 Unknown Rx methylprednisolone 4 mg tablets in See Rx Instructions PO PER PKG DIR 04/11/24 Unknown Rx a dose pack (Medrol (Tarik)) #21 tabs methocarbamol 500 mg tablet 1,000 mg (2 x 500 mg) PO 4X/DAY 06/28/24 Unknown Rx PRN Muscle pain/spasm #56 tabs ondansetron 4 mg disintegrating 4 mg PO TID PRN nausea and 06/28/24 Unknown Rx tablet vomiting #21 tabs oxycodone-acetaminophen 5 mg-325 1 tab PO Q6H PRN pain 5 days #20 06/28/24 Unknown Rx mg tablet (Percocet) tabs prednisone 20 mg tablet 40 mg (2 x 20 mg) PO DAILY 5 days 06/28/24 Unknown Rx #10 tabs Allergy/AdvReac Type Severity Reaction Status Date / Time lansoprazole (From Prevacid) Allergy Unknown Verified 06/27/24 07:08 rabeprazole (From Aciphex) Allergy Hives Verified 06/27/24 07:08 Sulfa (Sulfonamide Allergy Unknown Verified 06/27/24 07:08 Antibiotics) omeprazole (From Prilosec) AdvReac Other Verified 06/27/24 07:08 omeprazole magnesium (From AdvReac Other Verified 06/27/24 07:08 Prilosec) Surgical History Gastric bypass status for obesity History of cholecystectomy History of tonsillectomy History of bilateral breast reduction surgery Social History Smoking Status: Former smoker ROS ROS ED Constitutional Constitutional ED: Denies chills or fever(s) ENT ENT ED: Denies sore throat Cardiovascular Cardiovascular: Denies chest pain Respiratory/Chest Respiratory/Chest: Denies cough or dyspnea Gastrointestinal Gastrointestinal: Denies abdominal pain, diarrhea, nausea or vomiting Genitourinary Genitourinary ED: Denies dysuria or hematuria Musculoskeletal Musculoskeletal: Reports back pain Integumentary Denies rash Neurologic Neurologic: Denies headache(s), paresthesias or weakness Hematologic/Lymphatic Hematologic/Lymphatic: Denies easy bleeding or easy bruising EXAM Physical Exam Const Vital Signs: 06/28/24 05:39 Temperature 97.8 F Temperature Source Oral Pulse Rate 82 Respiratory Rate 18 Blood Pressure 151/83 H Blood Pressure Mean 105 Pulse Ox 95 Oxygen Delivery Method Room Air Positive well nourished and well developed General Appearance ED: well developed; Negative for pallor HEENT HEENT Narrative: Normocephalic atraumatic Eyes PERRL and EOMs intact bilaterally General Eye ED: Negative for scleral icterus Neck supple Resp normal respiratory effort and clear to auscultation bilaterally Cardio regular rate and regular rhythm Back/Spine Back/Spine Narrative: No bony deformity or step-off of the thoracic or lumbar spine no midline tenderness to palpation No saddle anesthesia. Negative straight leg raise. No clonus or Babinski. Patellar reflexes are plus 1 out of 4 bilaterally There is pain with palpation along the right piriformis muscle belly that worsens with hip flexion. No overlying soft tissue skin changes to suggest trauma or infection Extremity normal to inspection Neuro oriented x3, CN's II-XII intact bilaterally and no sensory deficits noted Sensorium / Orientation: alert Psych mental status grossly normal Skin no rashes or lesions noted and no wounds General Skin Exam: Negative for jaundice or pallor MDM MDM MDM Narrative Medical decision making narrative: Patient arrived to the ER hypertensive but otherwise with stable vital. She denied any recent trauma or excessive activity and she denied loss of bowel or bladder control or IV drug use this goes against cauda equina or epidural abscess. Skin exam does not reveal any type of overlying soft tissue changes to suggest cellulitis or abscess. She was worked up just 24 hours ago and had normal laboratory studies going against septic arthritis or osteomyelitis. Therefore at this time I do not feel there is need for workup other than symptomatic care and she will be discharged home. History & Record Review Discussion w/independent historian: Patient Discharge Plan Triage Chief Complaint: Back ED Provider: Bo Fontenot Dx/Rx/DC Orders Clinical Impression: Acute myofascial strain of lumbosacral region, Piriformis syndrome of right side, GERD (gastroesophageal reflux disease), History of migraine headaches Instructions: Understanding Lumbosacral Strain, ED Sciatica Prescriptions: New oxycodone-acetaminophen [Percocet] 5-325 mg tablet 1 tab PO Q6H PRN (Reason: pain) 5 Days Qty: 20 0RF prednisone 20 mg tablet 40 mg PO DAILY 5 Days Qty: 10 0RF ondansetron 4 mg tablet,disintegrating 4 mg PO TID PRN (Reason: nausea and vomiting) Qty: 21 0RF methocarbamol 500 mg tablet 1,000 mg PO 4X/DAY PRN (Reason: Muscle pain/spasm) Qty: 56 0RF No Action venlafaxine 150 mg capsule,extended release 24hr 150 mg PO QHS Qty: 30 Patient Comments: TAKE 1 CAPSULE BY MOUTH EVERY DAY diclofenac sodium [Voltaren Arthritis Pain] 1 % gel 4 g topical TID Qty: 100 0RF Rx Instructions: apply to single knee TID methylprednisolone [Medrol (Tarik)] 4 mg tablets,dose pack See Rx Instructions PO PER PKG DIR Qty: 21 0RF Rx Instructions: PO PER PKG DIR benzonatate 200 mg capsule 200 mg PO TID PRN (Reason: cough) Qty: 20 0RF norgestimate-ethinyl estradiol 1 EACH tablet 1 ea PO DAILY pantoprazole 40 MG tablet 80 tab PO QHS lamotrigine 25 tablet 50 mg PO QHS Primary Care Provider: Bettina Ashton Referrals: Bettina Ashton, UTILIZATION REVIEW SPECIALIST [Primary Care Provider] - Activity Restrictions/Additional Instructions: Your history and exam indicate that your pain is most likely related to spasm and irritation to your psoas and piriformis muscle belly. Continue to stretch and heat the area to reduce pain and speed healing. Take the prescribed medication as directed to help control symptoms as well. Talk to your family doctor about a potential orthopedic referral if symptoms persist as you may need a MRI to further assess the cause of your recurrent pain. Return to the ER should you have worsening of symptoms or any further concerns Print Language: Italian Disposition Disposition: Home, Self Care Discharge Date/Time: 06/28/24 06:47
[2024-06-28] MEDS: Ondansetron ODT 4 MG Tablet PO (06:23)
[2024-06-28] MEDS: Orphenadrine 100 MG Tablet PO (06:23)
[2024-06-28] MEDS: morphine 10 MG/ML Syringe 8 MG IM (06:25)
[2024-06-28] MEDS: Ketorolac 30 MG/ML Syringe IM (06:25)
[2024-06-28 06:32] VITALS: BP 128/69; PULSE 72; RESP 18; TEMP 36.7; O2SAT 100
== END 2024-06-28 06:47 | disposition home or self-care (01) ==
PROVIDERS: Emergency Provider Emergency Medicine; PCP Clinical Nurse Specialist Adult Health; Visit Provider Emergency Medicine
DX: S39.012A Strain of muscle, fascia and tendon of lower back, initial encounter (principal); K21.9 Gastro-esophageal reflux disease without esophagitis; Z87.891 Personal history of nicotine dependence; G57.01 Lesion of sciatic nerve, right lower limb; G43.909 Migraine, unspecified, not intractable, without status migrainosus; X58.XXXA Exposure to other specified factors, initial encounter
CPT/HCPCS: 96372; 99283

== ENCOUNTER → 2024-07-15 | Outpatient (CLI) | payer MEDICAID, SELFPAY | END | disposition home or self-care (01) | LOC: EMPH 06:33 | PROVIDERS: PCP Clinical Nurse Specialist Adult Health; Visit Provider Emergency Medicine | DX: Z02.1 Encounter for pre-employment examination (principal) | CPT/HCPCS: 87635 ==

== ENCOUNTER 2024-07-18 18:47 | Emergency (ER) | payer MEDICAID, SELFPAY ==
[2024-07-18 18:47] VITALS: BP 157/100; PULSE 116; RESP 18; TEMP 37.4; O2SAT 100; BMI 43.1
--- NOTE | 2024-07-18 20:27 | EX.ED.DYSGE1 ---
HPI History of Present Illness Chief Complaint: Headache [facility] Medical History Osteoarthritis of left knee Back pain Difficulty balancing Knee pain Chest pain Migraines Fatigue Stomach ulcer Shoulder pain SOB (shortness of breath) Arthritis Home Medications ?Medication ?Instructions ?Recorded ?Last Taken ?Type norgestimate 0.25 mg-ethinyl 1 ea PO DAILY bcp 12/10/18 Unknown History estradiol 35 mcg tablet pantoprazole 40 mg tablet,delayed 80 tab PO QHS gerd 12/10/18 01/31/20 History release venlafaxine 150 mg 150 mg PO QHS #30 caps 03/21/19 Unknown History capsule,extended release 24 hr lamotrigine 25 mg tablet 50 mg PO QHS 04/12/19 Unknown History diclofenac sodium 1 % topical gel 4 g topical TID #100 grams 11/28/22 Unknown Rx (Voltaren Arthritis Pain) benzonatate 200 mg capsule 200 mg PO TID PRN cough #20 caps 04/11/24 Unknown Rx methylprednisolone 4 mg tablets in See Rx Instructions PO PER PKG DIR 04/11/24 Unknown Rx a dose pack (Medrol (Tarik)) #21 tabs methocarbamol 500 mg tablet 1,000 mg (2 x 500 mg) PO 4X/DAY 06/28/24 Unknown Rx PRN Muscle pain/spasm #56 tabs ondansetron 4 mg disintegrating 4 mg PO TID PRN nausea and 06/28/24 Unknown Rx tablet vomiting #21 tabs oxycodone-acetaminophen 5 mg-325 1 tab PO Q6H PRN pain 5 days #20 06/28/24 Unknown Rx mg tablet (Percocet) tabs prednisone 20 mg tablet 40 mg (2 x 20 mg) PO DAILY 5 days 06/28/24 Unknown Rx #10 tabs amoxicillin 875 mg-potassium 1 tab PO BID #20 tabs 07/18/24 Unknown Rx clavulanate 125 mg tablet prochlorperazine maleate 5 mg 5 mg PO TID PRN nausea and 07/18/24 Unknown Rx tablet (Compazine) vomiting 7 days #20 tabs Allergy/AdvReac Type Severity Reaction Status Date / Time lansoprazole (From Prevacid) Allergy Unknown Verified 07/18/24 18:48 rabeprazole (From Aciphex) Allergy Hives Verified 07/18/24 18:48 Sulfa (Sulfonamide Allergy Unknown Verified 07/18/24 18:48 Antibiotics) omeprazole (From Prilosec) AdvReac Other Verified 07/18/24 18:48 omeprazole magnesium (From AdvReac Other Verified 07/18/24 18:48 Prilosec) Surgical History Gastric bypass status for obesity History of cholecystectomy History of tonsillectomy History of bilateral breast reduction surgery Social History Smoking Status: Former smoker EXAM Physical Exam Const Vital Signs: 07/18/24 18:47 07/18/24 21:25 07/18/24 22:00 Temperature 99.4 F H Temperature Source Oral Pulse Rate 116 H 77 Respiratory Rate 18 16 Respiratory Pattern Normal Blood Pressure 157/100 H 148/92 H Blood Pressure Mean 119 110 Pulse Ox 100 100 Oxygen Delivery Method Room Air MDM MDM MDM Narrative Medical decision making narrative: HISTORY OF PRESENT ILLNESS: 44-year-old female presents with concern for head. States she has got body aches, neck pain and fever. She does she has had symptoms for the past several weeks. Off and on. She notes her last week she has had the symptoms as mentioned above. She notes a generalized rash that started on Thursday (07/13/2024). States she also was recent started on amoxicillin for sinus infection. She notes she went into clinic several days ago had negative COVID flu RSV testing REVIEW OF SYSTEMS: Pertinent positives: Headache, fever, body aches, neck pain, rash, chest pain Pertinent negatives: Vomiting, abdominal pain, shortness of breath, cough, urinary symptoms PHYSICAL EXAM: Nursing triage notes reviewed, Vital signs reviewed Constitutional: please see mdm HENT: MMM Eyes: Pupils equal round and reactive to light, Extraocular muscles intact Neck: No stridor, no JVD, full neck ROM Lungs: Clear to auscultation, No wheezing or rales. No increased work of breathing, no conversational dyspnea, no accessory muscle use, no nasal flaring. No respiratory distress noted Heart: Regular rate and rhythm, No murmurs, No rubs and No gallops, 2+ distal pulses (radial, femoral, posterior tibial) in all extremities Abdomen: Soft, there is no tenderness, rigidity, rebound or guarding, no obvious peritoneal signs, no palpable pulsatile abdominal masses, no auscultated abdominal bruit : No CVAT Extremities: No edema Neuro: Alert and oriented x3, neuro exam at baseline, cranial nerves II through XII are intact. No pain with extraocular muscle movement. There is negative test of skew. 5 of 5 strength in upper and lower extremities in flexion extension. Intact sensation to light touch in upper and lower extremity dermatomes. No truncal or extremity ataxia. No dysdiadochokinesia. Normal gait. 2+ reflexes in upper and lower extremities. No meningeal signs. Negative Babinski. NIH of 0. Skin: nonspecific maculopapular rash noted mostly to the right upper extremity and left upper extremity otherwise involving the face neck chest abdomen or legs MEDICAL DECISION MAKING: Chief Complaint: Headache External records reviewed: Reviewed prior imaging studies. COVID test was negative on 07/15/2024 Factors affecting care: none Social determinants of health: none History obtained from others: none Consults: none [facility] Narrative: Patient was initially hypertensive, tachycardic, afebrile, saturating well on room air. Initial exam with no focal neurologic deficits. There were no meningeal signs. Patient was not altered. I considered the following differential diagnosis: Meningitis, ICH, viral illness, complex migraine, pneumonia, ACS, arrhythmia, anemia, UTI Patient's physical exam and duration of symptoms are not consistent with acute meningitis. For example she notes several weeks of intermittent illness including headaches, neck pain. In addition to this she is not altered, she has had a fever here. She is no focal neurologic deficits. Did obtain a screening CT scan in preparation for potential LP Also obtain a broad lab and imaging workup to further elucidate etiology patient complaints including strep test I treated the patient with 1 L IV fluid, 10 mg IV Reglan for headache and nausea control and 4 mg of IV Decadron ALL IMAGES (IF OBTAINED) HAVE BEEN PERSONALLY REVIEWED AND INTERPRETED BY MYSELF. EKG with normal sinus rhythm rate of 97, normal axis, normal intervals, no STEMI CBC without leukocytosis (making severe systemic illness less likely), severe anemia, no thrombocytopenia. CT scan of the head shows no evidence of ICH or sinusitis High-sensitivity troponin is negative, no evidence of myocardial ischemia CMP without evidence of acute kidney injury, significant electrolyte abnormality, anion gap to suggest end organ hypo-perfusion, no evidence of metabolic acidosis with a normal bicarbonate, no evidence of hepatobiliary obstructive pathology. I have personally reviewed the patient's chest x-ray. Chest x-ray is unremarkable for pulmonary edema, pneumothorax, pneumonia or focal cardiopulmonary abnormality. Urinalysis without evidence of infection Urine test is negative On reassessment patient continued have headache. She was given 5 mg of Compazine and 15 mg of IV Toradol. Patient notes she felt better. Repeat a neurologic exam remained intact. Discussed meningitis. Discussed LP. Discussed risk and benefits. Patient was alert and orient x 3 and had capacity to make her own medical status and chose to forego LP at this time. I agree I do not suspect she has meningitis. I think the risk of LP (bleeding, infection, spinal abnormality) is higher than risk of missed diagnosis and's clinical scenario. Strict return precautions were discussed. Compazine provided for home headache and nausea control. The patient and/or family, caregivers express understanding. The patient and/or family, caregivers agrees with the plan. Shared decision making: I will have a discussion with the patient and or visitors regarding risk/benefits of further testing or admission. They will be made aware of of the risk/benefits inherent in this decision they will be given the opportunity to voice understanding. Total critical care time today provided was at least 0 minutes. This excludes separately billable procedures. Critical care time (if documented) is secondary to the patient having high probability of clinically significant/life threatening deterioration in the patient's condition which required my urgent intervention. Impression: 1. Headache 2. Viral URI 3. Rash Dispo: Discharge This note was generated with [employer]ir[employer] dictation software. It may contain incorrect words, spelling, and punctuation that were not noted in review of the chart prior to signing. Lab Data Labs: Laboratory Results - last 24 hr 07/18/24 07/18/24 21:15 21:20 WBC 8.1 RBC 4.27 Hgb 12.8 Hct 38.5 MCV 90.2 MCH 30.0 MCHC 33.2 RDW Std Deviation 42.2 RDW Coeff of Renan 12.7 Plt Count 292 MPV 11.0 Sodium 139 Potassium 3.5 Chloride 106 Carbon Dioxide 23.0 Anion Gap 10 BUN 8 Creatinine 0.66 Estim Creat Clear Calc 128.44 Est GFR (MDRD) Af Amer 125 Est GFR (MDRD) Non-Af 103 BUN/Creatinine Ratio 12.2 Glucose 96 Calcium 8.6 Total Bilirubin 0.10 L AST 31 ALT 29 Alkaline Phosphatase 84 Troponin I High Sens 3 Total Protein 7.2 Albumin 3.1 L Globulin 4.1 Albumin/Globulin Ratio 0.8 L Urine Color Yellow Urine Clarity Sl. Cloudy Urine pH 6.0 Ur Specific Antler 1.010 Urine Protein 15 H Urine Glucose (UA) Normal Urine Ketones 50 H Urine Occult Blood Negative Urine Nitrite Negative Urine Bilirubin Negative Urine Urobilinogen 4 H Ur Leukocyte Esterase 100 H Urine RBC 0 SEEN Urine WBC 0-5 SEEN Ur Squamous Epith Cells 0-5 SEEN Urine Bacteria 1+ Urine Mucus 1+ Urine Test Negative Radiography Diagnostic Testing: Clinical Impression(s) from Imaging Studies Brain CT 07/18/24 21:28 IMPRESSION: No acute intracranial abnormality. [facility] 07/18/24 21:30 IMPRESSION: No acute cardiopulmonary process or significant change. If there are persistent symptoms or clinical concern, short-term follow-up CT evaluation may be considered. Reading [facility] Dis[facility] Triage Chief Complaint: Headache Other Complaint: General Illness ED Provider: Chago Balderas Dx/Rx/DC Orders Clinical Impression: Viral upper respiratory infection, Headache Instructions: ED URI, Viral, No Abx (Adult) Prescriptions: New prochlorperazine maleate [Compazine] 5 mg tablet 5 mg PO TID PRN (Reason: nausea and vomiting) 7 Days Qty: 20 0RF No Action venlafaxine 150 mg capsule,extended release 24hr 150 mg PO QHS Qty: 30 Patient Comments: TAKE 1 CAPSULE BY MOUTH EVERY DAY diclofenac sodium [Voltaren Arthritis Pain] 1 % gel 4 g topical TID Qty: 100 0RF Rx Instructions: apply to single knee TID methylprednisolone [Medrol (Tarik)] 4 mg tablets,dose pack See Rx Instructions PO PER PKG DIR Qty: 21 0RF Rx Instructions: PO PER PKG DIR benzonatate 200 mg capsule 200 mg PO TID PRN (Reason: cough) Qty: 20 0RF amoxicillin-pot clavulanate 875-125 mg tablet 1 tab PO BID Qty: 20 0RF norgestimate-ethinyl estradiol 1 EACH tablet 1 ea PO DAILY pantoprazole 40 MG tablet 80 tab PO QHS lamotrigine 25 tablet 50 mg PO QHS oxycodone-acetaminophen [Percocet] 5-325 mg tablet 1 tab PO Q6H PRN (Reason: pain) 5 Days Qty: 20 0RF prednisone 20 mg tablet 40 mg PO DAILY 5 Days Qty: 10 0RF ondansetron 4 mg tablet,disintegrating 4 mg PO TID PRN (Reason: nausea and vomiting) Qty: 21 0RF methocarbamol 500 mg tablet 1,000 mg PO 4X/DAY PRN (Reason: Muscle pain/spasm) Qty: 56 0RF Primary Care Provider: Bettina Ashton Referrals: Bettina Ashton, PROFESSIONAL EMPLOYER CONSULTANT [Primary Care Provider] - Activity Restrictions/Additional Instructions: Thank you for trusting us with your care today! Your labs images were reassuring. Specifically no sign of damage to your brain, pneumonia, strep throat, damage to your heart, urine infection. Please take Tylenol (2 pills, 650 mg), ibuprofen (2 pills, 400 mg) every 6 hours as needed for pain and fever control. Please take Compazine as needed for nausea/vomiting control. Please return to the emergency department if your symptoms change or worsen. Please follow with your primary care physician for further outpatient evaluation and management. Print Language: [place] Disposition Disposition: Home, Self Care
--- NOTE | 2024-07-18 20:47 | EKG12_ITS ---
Test Reason : HEADACHE Blood Pressure : */* mmHG Vent. Rate : 97 BPM Atrial Rate : 97 BPM P-R Int : 152 ms QRS Dur : 92 ms QT Int : 364 ms P-R-T Axes : 56 26 21 degrees QTcB Int : 462 ms Normal sinus rhythm Normal ECG Confirmed by Cedric Stevens ([id number]), editor index NAOMIE GRANGER ([id number]) on 07/20/2024 8:05:49 AM Referred By: Confirmed By: Cedric Stevens
[2024-07-18] MEDS: 0.9% Normal Saline (1000mL) 1,000 ML 1000 ML IV (21:18)
[2024-07-18] MEDS: Metoclopramide 10 MG/2 ML Vial IV (21:19)
[2024-07-18] MEDS: dexAMETHasone 4 MG/ML Vial IV (21:19)
--- NOTE | 2024-07-18 21:28 | CT_ITS ---
EXAM: CT brain without IV contrast CLINICAL HISTORY: Headache COMPARISON: 11/01/2017 TECHNIQUE: Multiple contiguous axial images of the brain were obtained without the administration of intravenous contrast. Two-dimensional coronal and sagittal reformatted images were reconstructed. Low-dose imaging technique was utilized. FINDINGS: No evidence of acute intracranial hemorrhage, midline shift or mass effect. No definite CT evidence of acute territorial cortical infarction. No hydrocephalus. Cerebral volume is age-appropriate. Calvarium is intact. Paranasal sinuses and mastoid air cells are clear. CT/Brain/Head without Contrast IMPRESSION: No acute intracranial abnormality. Reading Location: [facility]
--- NOTE | 2024-07-18 21:30 | RAD_ITS ---
PROCEDURE: Portable upright chest radiograph, one view REASON FOR EXAM: Shortness of breath TECHNIQUE: Single AP upright chest radiograph obtained. COMPARISON: 03/25/2024 FINDINGS: The cardiomediastinal silhouette is stable. Bones are intact. No focal airspace consolidation, pneumothorax, or pleural effusion. RAD/Chest 1 View (Portable) IMPRESSION: No acute cardiopulmonary process or significant change. If there are persisten t symptoms or clinical concern, short-term follow-up CT evaluation may be considered. Reading Location: [facility]
[2024-07-18 21:33] LABS: Hematocrit 38.5 % (37-47); Hemoglobin 12.8 g/dL (12.0-15.0); Mean Corp Hgb Conc 33.2 g/dL (32-36); Mean Corpuscular Volume 90.2 fL (81-99); Platelet Count 292 K/mm3 (150-450); RBC Distribution Width CV 12.7 % (11.6-14.6); RBC Distribution Width SD 42.2 fl (35.1-43.9); Red Blood Count 4.27 M/mm3 (4.2-5.4); White Blood Count 8.1 K/mm3 (4.4-11.0)
[2024-07-18 21:47] LABS: Color, Urine Yellow (Yellow); Glucose, Dipstick Normal (Normal); Ketone-Dipstick 50 mg/dl (Negative); Leukocyte Esterase-Dipstick 100 /ul (Negative); Nitrite-Dipstick Negative (Negative); Occult Blood-Urine Negative /ul (Negative); Protein-Dipstick 15 mg/dl (Negative); Urine Bilirubin Dipstick Negative (Negative); Urine Clarity Sl. Cloudy (Clear); Urine Urobilinogen 4 mg/dl (Normal)
[2024-07-18 21:54] LABS: ALB/GLOB Ratio 0.8 RATIO (0.9-2.4); AST(SGOT) 31 U/L (15-37); Alanine Aminotransfer ALT/SGPT 29 U/L (13-56); Albumin, Serum 3.1 g/dL (3.2-5.0); Alkaline Phosphatase 84 U/L (45-117); Anion Gap 10 (5-15); BUN 8 mg/dL (7-18); BUN/Creat Ratio 12.2 RATIO (10-20); Calcium,Total 8.6 mg/dL (8.5-10.1); Chloride 106 mmol/L (98-107); Creatinine, Serum 0.66 mg/dL (0.55-1.02); EST Glomerular Filtration Rate 103 mL/min (>60); Est Glom Filt Rate - Afr Amer 125 mL/min (>60); Estimated Creatinine Clearance 128.44 ml/min; Globulin 4.1 g/dL (2.2-4.2); Glucose 96 mg/dL (74-106); Potassium 3.5 mmol/L (3.5-5.1); Protein, Total 7.2 g/dL (6.4-8.2); Sodium Level 139 mmol/L (136-145); Troponin-I HS 3 pg/mL (3.0-54.0)
[2024-07-18 22:00] VITALS: BP 148/92; PULSE 77; RESP 16; O2SAT 100
[2024-07-18 22:01] LABS: Bacteria 1+ /hpf (None Seen); Mucous, Urine 1+ /hpf (<or=2+); Red Blood Cells-Urine 0 SEEN /hpf (0-5); Squamous Epithelial Cells - UA 0-5 SEEN /hpf (5-10); White Blood Cells 0-5 SEEN /hpf (0-5)
[2024-07-18 22:02] LABS: Internal QC Validated? YES +Cl - CLEAR BKGD; Pregnancy, Urine Negative Negative
[2024-07-18] MEDS: proCHLORPERazine 10 MG/2 ML Vial 5 MG IV (22:02)
[2024-07-18] MEDS: Ketorolac 15 MG/ML Vial IV (22:03)
[2024-07-18 22:57] VITALS: BP 147/87; PULSE 71; RESP 16; TEMP 37.1; O2SAT 100
== END 2024-07-18 22:57 | disposition home or self-care (01) ==
PROVIDERS: Emergency Provider Emergency Medicine; PCP Clinical Nurse Specialist Adult Health; Visit Provider Emergency Medicine
DX: R51.9 Headache, unspecified (principal); J06.9 Acute upper respiratory infection, unspecified; R21 Rash and other nonspecific skin eruption; Z87.891 Personal history of nicotine dependence; J32.9 Chronic sinusitis, unspecified
CPT/HCPCS: 70450; 71045; 80053; 81001; 81025; 84484; 85027; 87651; 93005; 96361; 96374; 96375; 99285

== ENCOUNTER 2024-10-05 08:30 | Outpatient (RCR) | payer MEDICAID, SELFPAY ==
--- NOTE | 2024-08-09 17:51 | HP.PTEVAL ---
Patient's Visit Information Visit Information Visit Information: DERECK OSPINA is a 44 year old F referred to Physical Therapy by FLORES Tee with a diagnosis of BPPV. Date of Evaluation: 08/09/24 Physical Therapist: Roc Grover, LYNT, OCS, CSCS Visit Plan Frequency: 2x /Week Duration: 4-6 Weeks Plan: 2x/week for 3-6 weeks... IE HEP: VOR H 60 seconds 6x/day, cervical retraction 12x 6x/day, appropriate posture and had position Treat with 1. MH and STM to pericervical MM and postural correction and pec strtching and cervical/postural strength to HEP. Manual cervical traction and PROM 2. Progression of VOR exercises via HEP when dizzyness improved( VOR x 2, or moving VOR, may adelfo head up and down habituation also. Subjective Subjective: I have vertigo, spinning off balance when turning head or looking down and feels unsteady. had it all day yesterday. It started a week and a half ago and skips a day every now and then. Massage and chiro did not help. Head feels goofy continually. Looking down then gets off balance until sits back down. 30 seconds. 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 Steps are extra careful. 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 Sleep is OK, not getting dizzy in bed. No active hobbies, no regular exercises. No falls, no neuropathy. Objective Objective: Walks slowly but I into PT, trasnfer bd and chair I, steps reciprocal requiring one rail. cervical aROM slow and hesitant especially up and dnown but WFL and without pain. UE AROM WFL, no sensory deficits to gross light touch, - B hallpike nataliia and - roll test. Oculomotor: - skew eye deviation, - ocular tilt, slight + L head thrust pursuit feels funny but able, saccades are normal VOR H 6/10 after 30 seconds for 45 seconds. VOR vertical not bad. Posture is forward head and protracted scapular but can correct with VC. Repeated flexion increased dizzyness, repeated retraction feels better. Balance/Special Test Scores Functional Gait Assessment Score: 22 % Disability: 26.6700 CATSIB Score (Max score 120 seconds): 90 Dizziness Score: 48 Goals Goal 1:: abolish dizzy feeling for 3 days Goal Time Frame: 4-6 Weeks Goal 2:: FGA score 28/30 Goal Time Frame: 4-6 Weeks Goal 3:: Appropriate cervical posture and scapular without cueing Goal Time Frame: 4-6 Weeks Goal 4:: I appropriate HEP to minimize future problems Goal Time Frame: 4-6 Weeks Goal 5:: DHI score 8 or less Goal Time Frame: 4-6 Weeks Goal 6:: Pt feel 95% back to normal Goal Time Frame: 4-6 Weeks Rehabilitation Potential Physical Therapy Diagnosis: dizzyness with had positions and neck stiffness making comfortable funciton a problem and effecting balance. Rehabilitation Potential: Fair Anticipated Interventions Patient/Client Instruction: Educate patient on: Condition and Plan of Care For the Purpose of:: To improve nutrient delivery to tissue, To improve muscle performance and motor function and To increase tolerance to activity/condition/position Therapeutic Exercise to Include: Strength training, Postural training, Flexibilty training, Passive ROM and Active ROM Comment: adaptation ex progression For the Purpose of:: To increase tolerance to activity/condition/position Manual Therapy Techniques to Include: Mobilization, Passive ROM and Soft tissue mobilization For the Purpose of:: To increase ROM, To improve nutrient delivery to tissue and To increase tolerance to activity/condition/position Text: Thank you for the opportunity to evaluate your patient. For Medicare and Medicare HMO plans, please review the plan of care and approve it. It will need to be FAXED BACK to us at [phone] for Medicare purposes. For Medicare only, by signing this I certify the plan of care. Please let me know if there are questions or concerns regarding this plan of care. Physician Signature: Date:
--- NOTE | 2024-10-05 09:31 | HP.PTDCSUM ---
Discharge Summary D/C summary: It has been my pleasure to treat DERECK OSPINA referred by Bettina Ashton, PSYCHIATRIC NURSE PRACTITIONER, with the diagnosis of BPPV and Dr. Hummel for neck pain for a total of 13 visit(s). Discharge Date: 10/05/24 Please see the following information for a summary of their discharge status. Subjective Subjective: Dr. Ashton sent for vertigo and has not had any issues for a long time. Activities are normal with dizzyness. Dr. Hummel sent for neck and it is not improving. Wants MRI. Neck pain is worse up to 8/10 L neck and into L arm and behind ear. Intermittent without reason. Pain goes down L arm. Feels weak. HEP : sometimes does towel rotations. and extension. Bending over to pet dog makes her worse. Dizzyness 100% betteer harmonyn neck was improving but has backslid to no better again. Pain neck stiffness: Pain Intensity (Out of 10): 4 Neck pain: Pain Intensity (Out of 10): 8 Overall Improvement % Improvement: 50 Objective Objective/Function: head movements today without dizziness. neck ROM r rotation 62 and L 72, pain L sidee with R rotation. cervical extension 55 degrees with pain. UE AROM WFL but seems weak in L biceps slightly vs R. Good balance today and walking and transitioning normally. has sharp pains upper neck L side Goals Goal 1:: abolish dizzy feeling for 3 days Goal Progress: Goal Met Goal 2:: FGA score 28/30 Goal Progress: not tested but good karma Goal 3:: Appropriate cervical posture and scapular without cueing Goal Progress: Progressing Goal 4:: I appropriate HEP to minimize future problems Goal Progress: Not Progressing Goal 5:: DHI score 8 or less Goal Progress: Goal Met Goal 6:: Pt feel 95% back to normal Goal Progress: Not Progressing Plan Plan: d/c, pt doing well with dizziness but continues to have neck pain and arm symptoms and is appropriate to return to Dr. Hummel for next medical step. D/C Information d/c sentence: If there are questions or concerns regarding this patient's physical therapy, please feel free to call me at [phone]. Thank you for the referral of this patient. Sincerely, Roc Grover, DPT, OCS, CSCS Balance/Gait/Functional tests Balance/Special Test Scores Functional Gait Assessment Score: 22 % Disability: 26.6700 CATSIB Score (Max score 120 seconds): 90 Dizziness Score: 4 Improvement % Improvement: 50
== END 2024-10-05 19:00 | disposition home or self-care (01) ==
LOC: PT 08:30
PROVIDERS: PCP Clinical Nurse Specialist Adult Health; Referring Provider Clinical Nurse Specialist Adult Health; Visit Provider Clinical Nurse Specialist Adult Health
DX: H81.10 Benign paroxysmal vertigo, unspecified ear (principal)
CPT/HCPCS: 97110; 97140; 97162; 97530

== ENCOUNTER 2025-01-07 11:02 | Emergency (ER) | payer MEDICAID, SELFPAY ==
[2025-01-07 11:03] VITALS: BP 158/99; PULSE 65; RESP 14; TEMP 36.2; O2SAT 97
--- OUTSIDE RECORDS SUMMARY | 2025-01-07 11:20 | XMS RPT_ITS | CCD ---
Author Organization [facility] Care Team Providers Care Mold Parter Name Role Phone Mandie GARCIA (PA-C) Unavailable Unavail able OG Howard Primary Care Provider OG Hwoard Referring Provider OG Srinivasan Attending Provider Dr. Tung Edwards Attending Provider MD Jermaine Levy Attending Provider Mandie Garcia PA-C Primary Care Provider Mandie Garcia PA-C Primary Care Provider [phone] Mandie GARCIA Primary Care Unavailable ASHLEE LEE Referring Unavailable ANTONIETTA GONZALEZ Attending Unavailable ANTONIETTA GONZALEZ Admitting Unavailable Esthela Garcia PA-C Primary Care Provider Unavailable Suppan MEDICAL ONCOLOGY PHYSICIAN.AGENCY OWNER, Bettina A Primary Care Provi jose manuel Suppan MEDICAL ONCOLOGY PHYSICIAN.AGENCY OWNER, Bettina A Primary Care Provi jose manuel LILLIE BAUTISTA Attending Unavailable SUPPAN, BETTINA A Primary Care Unavailable Dr. Corey Tristan MD Attending Provider Dr. Corey Tristan MD Emergency Provider Suppcharles TANNER, Bettina Primary Care Provider Dr. Bo Fontenot DO Attending Provider Dr. Bo Fontenot DO Emergency Provider Dr. Roc Goldman DO Attending Provider Suppan DERRICK FOLLOWER, Bettina Referring Provider Lester Hoffman Attending Provider [phone] Eddie Hernandez Attending Provider [phone] Sherrie VALDERRAMA, Dr. Anders Attending Provider Dr. Chago Balderas DO Emergency Provider Suppan DERRICK FOLLOWER, Bettina Attending Provider Jermaine Levy MD Attending Provider [phone] Suppan DERRICK FOLLOWER, Bettina Attending Provider Suppan DERRICK FOLLOWER, Bettina Primary Care Provider Referred, Self Attending Provider Unavailable Referred, Self Referring Provider Unavailable Lindsay Motley Attending Provider Jerry PRATER, Dr. Ruby Attending Provider ESTHELA GARCIA Primary Care Unavailable FAITH DELUNA Attending Unavailabl e ESTHELA GARCIA Primary Care Unavailable FAITH DELUNA Referring Unavailabl e ESTHELA GARCIA Primary Care Unavailable FAITH DELUNA Referring Unavailabl e ASHLEE LEE Attending Unavailable ESTHELA GARCIA Primary Care Unavailable SUPPAN, BETTINA A Attending Unavailable SUPPAN, BETTINA A Primary Care Unavailable SUPPAN, BETTINA A Referring Unavailable ASHISH CALVILLO Attending Unavailable SUPPAN, BETTINA A Primary Care Unavailable ASHLEE LEE Attending Unavailable SUPPAN, BETTINA A Primary Care Unavailable SUPPAN, BETTINA A Attending Unavailable SUPPAN, BETTINA A Primary Care Unavailable DAVON DOWNS Attending Unavailable SUPPAN, BETTINA A Primary Care Unavailable DAVON DOWNS Attending Unavailable SUPPAN, BETTINA A Primary Care Unavailable SUPPAN, BETTINA A Primary Care Unavailable SUPPAN, BETTINA A Attending Unavailable SUPPAN, BETTINA A Primary Care Unavailable SUPPAN, BETTINA A Attending Unavailable SUPPAN, BETTINA A Primary Care Unavailable ASHLEE LEE Attending Unavailable SUPPAN, BETTINA A Primary Care Unavailable SUPPAN, BETTINA A Attending Unavailable ESTHELA GARCIA Primary Care Unavailable ESTHELA GARCIA Primary Care Unavailable DAVON DOWNS Attending Unavailable ESTHELA GARCIA Primary Care Unavailable REMEDIOSDEBORAH SIMON Referring Unavailable DEBORAH WHITTAKER Attending Unavailable ESTHELA GARCIA Primary Care Unavailable ASHLEE LEE Attending Unavailable SUPPAN, BETTINA A Primary Care Unavailable SUPPAN, BETTINA A Attending Unavailable ESTHELA GARCIA Primary Care Unavailable GARCIAESTHELA ACOSTA Primary Care Unavailable EDNA COURTNEY Referring Unavailable SUPPAN, BETTINA A Primary Care Unavailable Suppan, Bettina Primary Care Unavailable Suppan, Bettina Referring Unavailable Lester Hoffman Attending Unavailable Suppan, Bettina Primary Care Unavailable Suppan, Bettina Referring Unavailable Eddie Hernandez Attending Unavailable Mandie Howard Referring Unavailable Mandie Howard Primary Care Unavailable Eddie Hernandez Attending Unavailable Lindsay Rivera Attending Unavailable Suppan, Bettina Referring Unavailable Suppan, Bettina Primary Care Unavailable Suppan, Bettina Primary Care Unavailable Suppan, Bettina Referring Unavailable Eddie Hernandez Attending Unavailable Suppan, Bettina Primary Care Unavailable Suppan, Bettina Referring Unavailable Jermaine Levy Attending Unavailable Suppan, Bettina Primary Care Unavailable Suppan, Bettina Referring Unavailable Jermaine Levy Attending Unavailable Suppan, Bettina Primary Care Unavailable Suppan, Bettina Referring Unavailable Jermaine Levy Attending Unavailable Suppan, Bettina Primary Care Unavailable Chago Balderas Attending Unavailable Suppan, Bettina Primary Care Unavailable Tung Edwards Attending Unavailable Suppan, Bettina Primary Care Unavailable Suppan, Bettina Referring Unavailable Suppan, Bettina Attending Unavailable Corey Tristan Attending Unavailable Suppan, Bettina Primary Care Unavailable Suppan, Bettina Primary Care Unavailable Bo Fontenot Attending Unavailable Mandie Howard Primary Care Unavailable Kate Richardson Attending Unavailable Larry Hummel Referring Unavailable Larry Hummel Attending Unavailable Mandie Howard Primary Care Unavailable Referred, Self Referring Unavailable Referred, Self Attending Unavailable Suppan, Bettina Primary Care Unavailable Suppan, Bettina Primary Care Unavailable Roc Goldman Attending Unavailable Mandie Howard Primary Care Unavailable Mandie Howard Referring Unavailable Eddie Hernandez Attending Unavailable Mandie Howard Referring Unavailable Mandie Howard Primary Care Unavailable Eddie Hernandez Attending Unavailable Allergies Allergy Classification Reported Allergen(s) Allergy Type Date of Onset Reaction(s) Facility (20 sources) buPROPion; Translations: [BUPROPION HCL] Drug Allergy 4 GI Upset [facility] Repository (20 sources) Esomeprazole; Translations: [ESOMEPRAZOLE MAGNESIUM] Drug Allergy 7 Other: See Comments [facility] Repository (20 sources) lansoprazole; Translations: [LANSOPRAZOLE] Drug Allergy 5 Unknown [facility] Repository (20 sources) Omeprazole; Translations: [OMEPRAZOLE] Drug Allergy 5 Other [facility] Repository (20 sources) RABEprazole; Translations: [RABEPRAZOLE SODIUM] Drug Allergy 7 Rash [facility] Repository (20 sources) Sulfonamides (Antibiotic); Translations: [SULFA (SULFONAMIDE ANTIBIOTICS)] Propensity to adverse reactions to drug (disorder) 5 [facility] Repository (20 sources) PSEUDOEPHEDRINE- GUAIFENESIN; Translations: [PSEUDOEPHEDRINE -GUAIFENESIN] Propensity to adverse reactions to drug (disorder) 5 [facility] Repository (8 sources) Omeprazole; Translations: [omeprazole magnesium] Drug Allergy 3 [facility] (7 sources) RABEprazole Drug Allergy 3 [facility] (1 source) RABEprazole Drug Allergy 5 [facility] Repository Medications Current Medications Medication Drug Class(es) Dates Sig (Normalized) Sig (Original) Ascorbic Acid (20 sources) Vitamin C ascorbic acid (V ITAMIN C ORAL) Take by mouth once daily. Active ascorbic acid (V ITAMIN C ORAL) Take by mouth. Active ascorbic acid (V ITAMIN C ORAL) Take by mouth. 0 Active Comment on above: Take by mouth. baclofen 10 mg oral tablet (18 sources) gamma-Aminobutyric Acid-ergic Agonist Start: 10-11-2024 take 1 tablet by mouth every eight hours as needed baclofen 10 mg tablet Take 10 mg by mouth three times a day as needed. 10/11/2024 Active Start: 05-06-2024 baclofen 5 mg tablet 05/06/2024 Active BIOTIN, BULK, MISC (20 sources) BIOTIN, BULK, CT SC Active BIOTIN, BULK, CT SC cetirizine hydrochloride 10 mg oral tablet (3 sources) Histamine-1 Receptor Antagonist Start: 03-24-2023 End: 04-23-2023 take 1 tablet by mouth once daily cetirizine (ZYRTEC) 10 mg tablet Take 1 tablet by mouth once daily. 30 tablet 0 03/24/2023 04/23/2023 Active Comment on above: Take 1 tablet by [place] once daily. cholecalciferol, vitamin D3, (VITAMIN D3 ORAL) (20 sources) cholecalciferol, vitamin D3, (VITAMIN D3 ORAL) Take by mouth. Active cholecalciferol, vitamin D3, (VITAMIN D3 ORAL) Take by mouth. 0 Active Comment on above: Take by mouth. ciprofloxacin 500 mg oral tablet (2 sources) Quinolone Antimicrobial Start: 05-03-20 End: 05-13-20 24 take 1 tablet by mouth twice daily ciprofloxacin HCl (CIPRO) 500 mg tablet Indications: Dysuria , Diverticulitis Take 1 tablet by mouth two times a day for 10 days. 20 tablet 05/03/2024 05/13/2024 Active clonazePAM 0.5 mg oral tablet (19 sources) Benzodiazepine Start: 08-31-19 End: 09-28-19 clonazePAM (KLONOPIN) 0.5 mg tablet Indications: Anxiety disorder, unspecified type can take Klonopin 0.5mg 1/2 tablet daily for anxiety attacks as needed, use very sparingly, do not mix with alcohol and do not drive after taking Max order is 5 pills or 10 doses per month 5 tablet 08/30/2024 Active Start: 06-09-2019 End: 07-29-2021 take 0.5 tablet by mouth at bedtime as needed for anxiety clonazePAM (KLONOPIN) 0.5 mg tablet Indications: Anxiety disorder, unspecified type TAKE 1/2 TABLET BY MOUTH AT BEDTIME NEEDED FOR ANXIETY, do not drive after taking the medication 5 tablet 06/09/2019 07/29/2021 Discontinued (Course of therapy completed) Start: 03-05-2016 End: 03-21-2019 Clonazepam (Klonopin) 0.5 mg tablet Discontinued 0.5 mg PO NEEDED as needed for Anxiety August 01, 2017 1:00am March 21, 2019 10:25am cyclobenzaprine hydrochloride 10 mg oral tablet (20 sources) Muscle Relaxant Start: 03-02-2023 End: 04-13-2024 take 1 tablet by mouth three times daily as needed for muscle spasms cyclobenzaprine (FLEXERIL) 10 mg tablet Indications: Neck sprain, initial encounter , Cervicothoracic somatic dysfunction Take 1 tablet by mouth three times a day as needed for muscle spasm. 90 tablet 2 01/14/2024 04/13/2024 Active Start: 02-18-2022 End: 02-27-2023 take 1 tablet by mouth three times daily as needed for muscle spasms cyclobenzaprine (FLEXERIL) 10 mg tablet Indications: Neck sprain, initial encounter , Cervicothoracic somatic dysfunction Take 1 tablet by mouth three times daily as needed for muscle spasm. 30 tablet 1 02/18/2022 02/27/2023 Discontinued Comment on above: Take 1 tablet by [place] th three times daily as needed for muscle spasm. Take 1 tablet by [place] th three times a day as needed for muscle spasm. diclofenac sodium 0.01 mg/mg topical gel (6 sources) Nonsteroidal Anti-inflammatory Drug Start: 3 Diclofenac Sodium (Voltaren Arthritis Pain) 1 % gel Active 4 g TOPICAL THREE TIMES A DAY November 28, 2022 12:00am apply to single knee TID doxycycline hyclate 100 mg oral capsule (12 sources) Tetracycline-class Drug Start: End: take 1 capsule by mouth twice daily doxycycline hyclate (VIBRAMYCIN) 100 mg capsule Take 1 capsule by mouth two times a day for 10 days. 20 capsule 07/25/2024 08/04/2024 Active Start: 04-12-2024 End: 04-17-2024 take 1 tablet by mouth twice daily doxycycline (VIBRA-TABS) 100 mg tablet Take 1 tablet by mouth two times a day for 5 days. 10 tablet 04/12/2024 04/17/2024 Active DULoxetine 30 mg delayed release oral capsule (20 sources) Serotonin and Norepinephrine Reuptake Inhibitor Start: 02-01-2024 End: 12-11-2024 take 1 capsule by mouth once daily DULoxetine DR (CYMBALTA) 30 mg capsule Indications: Major depressive disorder, recurrent episode, moderate (HCC) , Anxiety disorder, unspecified type Take 1 capsule by mouth once daily. 90 capsule 12/12/2024 Active Start: 09-06-2015 End: 08-01-2017 Duloxetine 60 MG capsule Dis continued 90 mg PO DAILY September 06, 2015 12:00am August 01, 2017 12:23pm Start: 09-06-2015 End: 08-01-2017 take 90 mg by mouth once daily Duloxetine Discontinued 90 MG PO DAILY September 06, 2015 12:00am August 01, 2017 12:23pm Ethinyl Estradiol / norgestimate (20 sources) Progestin, Estrogen Start: 02-08-2024 End: 01-09-2025 take 1 tablet by mouth once daily norgestimate 0.25 mg-ethinyl estradiol 35 mcg (TAMARA) 0.25-35 mg-mcg per tablet Indications: Encounter for surveillance of contraceptive pills Take 1 tablet by mouth once daily. Take active pills only. No inactive week. 112 tablet 3 02/08/2024 01/09/2025 Active Start: 01-14-2024 End: 02-08-2024 take 1 tablet by mouth once daily norgestimate 0.25 mg-ethinyl estradiol 35 mcg (TAMARA) 0.25-35 mg-mcg per tablet Indications: Encounter for surveillance of contraceptive pills Take 1 tablet by mouth once daily. Take active pills only. No inactive week. 30 tablet 01/14/2024 02/08/2024 Discontinued Start: 01-14-2024 take 1 tablet by [facility] once daily norgestimate 0.25 mg-ethinyl estradiol 35 mcg (TAMARA) 0.25-35 mg-mcg per tablet Indications: Encounter for surveillance of contraceptive pills Take 1 tablet by mouth once daily. Take active pills only. No inactive week. 30 tablet 01/14/2024 Active Start: 05-11-2023 End: 01-13-2024 take 1 tablet by mouth once daily norgestimate 0.25 mg-ethinyl estradiol 35 mcg (TAMARA) 0.25-35 mg-mcg per tablet Indications: Encounter for surveillance of contraceptive pills Take 1 tablet by mouth once daily. Take active pills only. No inactive week. 112 tablet 3 05/11/2023 01/13/2024 Discontinued Start: 05-11-2023 take 1 tablet by [place] th once daily norgestimate 0.25 mg-ethinyl estradiol 35 mcg (TAMARA) 0.25-35 mg-mcg per tablet Indications: Encounter for surveillance of contraceptive pills Take 1 tablet by mouth once daily. Take active pills only. No inactive week. 112 tablet 3 05/11/2023 Active Start: 02-05-2023 End: 04-29-2023 take 1 tablet by mouth once daily norgestimate 0.25 mg-ethinyl estradiol 35 mcg (TAMARA) 0.25-35 mg-mcg per tablet Indications: Encounter for surveillance of contraceptive pills Take 1 tablet by mouth once daily. Take active pills only. No inactive week. 112 tablet 3 02/05/2023 04/29/2023 Discontinued Start: 02-05-2023 take 1 tablet by [place] th once daily norgestimate 0.25 mg-ethinyl estradiol 35 mcg (TAMARA) 0.25-35 mg-mcg per tablet Indications: Encounter for surveillance of contraceptive pills Take 1 tablet by mouth once daily. Take active pills only. No inactive week. 112 tablet 3 02/05/2023 Active Start: 12-08-2022 End: 02-05-2023 take 1 tablet by mouth once daily norgestimate 0.25 mg-ethinyl estradiol 35 mcg (TAMARA) 0.25-35 mg-mcg per tablet Indications: Encounter for surveillance of contraceptive pills Take 1 tablet by mouth once daily. Take active pills only. No inactive week. 84 tablet 0 12/08/2022 02/05/2023 Discontinued Start: 12-08-2022 take 1 tablet by [place] th once daily norgestimate 0.25 mg-ethinyl estradiol 35 mcg (TAMARA) 0.25-35 mg-mcg per tablet Indications: Encounter for surveillance of contraceptive pills Take 1 tablet by mouth once daily. Take active pills only. No inactive week. 84 tablet 0 12/08/2022 Active Start: 12-17-2021 End: 12-07-2022 take 1 tablet by mouth once daily norgestimate 0.25 mg-ethinyl estradiol 35 mcg (TAMARA) 0.25-35 mg-mcg per tablet Indications: Encounter for surveillance of contraceptive pills Take 1 tablet by mouth once daily. Take active pills only. No inactive week. 84 tablet 5 12/17/2021 12/07/2022 Discontinued Start: 12-17-2021 take 1 tablet by [place] th once daily norgestimate 0.25 mg-ethinyl estradiol 35 mcg (TAMARA) 0.25-35 mg-mcg per tablet Indications: Encounter for surveillance of contraceptive pills Take 1 tablet by mouth once daily. Take active pills only. No inactive week. 84 tablet 5 12/17/2021 Active Start: 11-26-2021 End: 12-17-2021 take 1 tablet by mouth once daily norgestimate 0.25 mg-ethinyl estradiol 35 mcg (TAMARA) 0.25-35 mg-mcg per tablet Indications: Encounter for surveillance of contraceptive pills Take 1 tablet by mouth once daily. 28 tablet 0 11/26/2021 12/17/2021 Discontinued Start: 11-26-2021 take 1 tablet by [place] th once daily norgestimate 0.25 mg-ethinyl estradiol 35 mcg (TAMARA) 0.25-35 mg-mcg per tablet Indications: Encounter for surveillance of contraceptive pills Take 1 tablet by mouth once daily. 28 tablet 0 11/26/2021 Active Start: 09-20-2021 End: 11-25-2021 TAMARA 0.25-35 mg-mcg per tabl et Indications: Encounter for surveillance of contraceptive pills TAKE 1 TABLET BY MOUTH ONCE DAILY. TAKE ACTIVE PILLS ONLY. START A NEW PACK EVERY 3 WEEKS. 84 tablet 09/20/2021 11/25/2021 Discontinued Start: 09-20-2021 End: 11-25-2021 TAMARA 0.25-35 mg-mcg per tabl et Indications: Encounter for surveillance of contraceptive pills TAKE 1 TABLET BY MOUTH ONCE DAILY. TAKE ACTIVE PILLS ONLY. START A NEW PACK EVERY 3 WEEKS. 84 tablet 0 09/20/2021 11/25/2021 Discontinued Start: 09-20-2021 TAMARA 0.25-35 m g-mcg per tablet Indications: Encounter for surveillance of contraceptive pills TAKE 1 TABLET BY MOUTH ONCE DAILY. TAKE ACTIVE PILLS ONLY. START A NEW PACK EVERY 3 WEEKS. 84 tablet 0 09/20/2021 Active Start: 05-21-2021 norgestimate 0 .25 mg-ethinyl estradiol 35 mcg (TAMARA) 0.25-35 mg-mcg per tablet Indications: Encounter for surveillance of contraceptive pills Take 1 tablet by mouth once daily. Take active pills only. Start a new pack every 3 weeks. 84 tablet 1 05/21/2021 Active Start: 01-08-2021 End: 05-07-2021 take 1 tablet by mouth once daily norgestimate 0.25 mg-ethinyl estradiol 35 mcg (SPRINTEC) 0.25-35 mg-mcg per tablet Indications: Encounter for surveillance of contraceptive pills Take 1 tablet by mouth once daily. 3 Package 1 01/08/2021 05/07/2021 Discontinued Start: 05-15-2020 End: 11-02-2020 norgestimate 0.25 mg-ethinyl estradiol 35 mcg (SPRINTEC) 0.25-35 mg-mcg per tablet Indications: Encounter for surveillance of contraceptive pills TAKE 1 TABLET BY MOUTH ONCE DAILY. DO NOT TAKE PLACE[place] PILLS. STARTS A NEW PACKAGE EVERY 3 WEEKS. 28 tablet 11 05/15/2020 11/02/2020 Discontinued Start: 02-29-2020 End: 05-07-2020 SPRINTEC 0.25-35 mg-mcg per tablet Indications: Encounter for surveillance of contraceptive pills TAKE 1 TABLET BY MOUTH ONCE DAILY. DO NOT TAKE PLACEBO PILLS. STARTS A NEW PACKAGE EVERY 3 WEEKS. 28 tablet 2 02/29/2020 05/07/2020 Discontinued Start: 12-10-2018 Norgestimate-E thinyl Estradiol 1 EACH tablet Active 1 NMA PO DAILY December 10, 2018 12:00am Start: 12-10-2018 Norgestimate-E thinyl Estradiol Active 1 EACH PO DAILY December 10, 2018 12:00am Comment on above: Take 1 tablet by [place] th once daily. Take active pills only. Start a new pack every 3 weeks. Take 1 tablet by [place] th once daily. Take 1 tablet by [place] th once daily. Take active pills only. No inactive week. fluconazole 150 mg oral tablet (1 source) Azole Antifungal Start: 4 End: 4 take 1 tablet by mouth once daily fluconazole (DIFLUCAN) 150 mg tablet Indications: Urinary frequency Take 1 tablet by mouth once daily for 1 day. 1 tablet 04/27/2024 04/28/2024 Active fluticasone propionate 0.05 mg/actuat metered dose nasal spray (20 sources) Corticosteroid Start: take 1 spray(s) nasal route once daily fluticasone (FLONASE ALLERGY RELIEF) 50 mcg/actuation nasal spray Indications: Viral upper respiratory tract infection Use 1 Procious in each nostril once daily. 11.1 mL 07/21/2024 Active Start: 03-24-2023 End: 08-21-2023 take 2 spray(s) by mouth once daily fluticasone (FLONASE) 50 mcg/actuation nasal spray Use 2 Sprays in each nostril once daily. Rinse mouth after use. 18.2 mL 03/24/2023 08/21/2023 Discontinued Start: 07-01-2022 End: 09-18-2022 take 2 spray(s) by mouth once daily fluticasone (FLONASE) 50 mcg/actuation nasal spray Use 2 Sprays in each nostril once daily. Rinse mouth after use. 1 Each 0 07/01/2022 09/18/2022 Discontinued (Course of therapy completed) Start: 10-29-2020 End: 11-16-2020 take 2 spray(s) by mouth once daily fluticasone (FLONASE) 50 mcg/actuation nasal spray Indications: Acute ear pain, left Use 2 Sprays in each nostril once daily. Rinse mouth after use. 1 Bottle 10/29/2020 11/16/2020 Discontinued (Course of therapy completed) Comment on above: Use 2 Sprays in each nostril once daily. Rinse mouth after use. gabapentin 300 mg oral capsule (20 sources) Anti-epileptic Agent Start: 10-14-2024 End: 01-12-2025 take 1 capsule by mouth four times daily at bedtime gabapentin (NEURONTIN) 300 mg capsule Indications: neuropathic pain Take 1 capsule by mouth four times daily for 90 days. 300 mg in AM, 300 mg mid day, 600 mg at bedtime 120 capsule 2 10/14/2024 01/12/2025 Active Start: 08-21-2023 End: 10-19-2024 take 1 capsule by mouth three times daily gabapentin (NEURONTIN) 100 mg capsule Indications: Neck pain , Low back pain with sciatica, sciatica laterality unspecified, unspecified back pain laterality, unspecified chronicity Take 1 capsule by mouth three times a day for 90 days. 90 capsule 2 07/21/2024 10/19/2024 Active Start: 08-14-2016 End: 02-21-2019 take 1 capsule by mouth once daily Gabapentin 300 MG capsule Discontinued 300 mg PO DAILY August 14, 2016 12:00am February 21, 2019 9:57am Comment on above: Take 1 capsule by [facility] three times a day for 90 days. lamoTRIgine 150 mg oral tablet (20 sources) Mood Stabilizer, Anti-epileptic Agent Start: 10-11-2024 take 1 tablet by mouth once daily at bedtime lamoTRIgine (LAMICTAL) 100 mg tablet Indications: Anxiety disorder, unspecified type , Major depressive disorder, recurrent, moderate (HCC) Take 1 tablet by mouth daily at bedtime. take with 150 mg tablet for total daily dose 250 mg 90 tablet 10/11/2024 Active Start: 10-11-2024 take 1 tablet by [place] once daily at bedtime lamoTRIgine (LAMICTAL) 150 mg tablet Indications: Major depressive disorder, recurrent, moderate (HCC) Take 1 tablet by mouth daily at bedtime. take with 100 mg tablet for total daily dose 250 mg 90 tablet 10/11/2024 Active Start: 04-29-2023 End: 08-16-2024 take 1 tablet by mouth once daily at bedtime lamoTRIgine (LAMICTAL) 200 mg tablet Indications: Major depressive disorder, recurrent, moderate (HCC) TAKE 1 TABLET BY MOUTH EVERYDAY AT BEDTIME 90 tablet 08/16/2024 Active Start: 12-08-2022 End: 04-29-2023 take 1 tablet by mouth once daily lamoTRIgine (LAMICTAL) 150 mg tablet Indications: Recurrent major depressive disorder, in full remission (HCC) Take 1 tablet by mouth once daily. 90 tablet 0 12/08/2022 04/29/2023 Discontinued Start: 02-22-2021 End: 12-06-2022 take 1 tablet by mouth once daily lamoTRIgine (LAMICTAL) 150 mg tablet Indications: Recurrent major depressive disorder, in full remission (HCC) Take 1 tablet by mouth once daily. 90 tablet 1 02/22/2021 11/21/2021 Discontinued Start: 05-22-2020 End: 11-27-2020 take 1 tablet by mouth once daily lamoTRIgine (LAMICTAL) 150 mg tablet Indications: Recurrent major depressive disorder, in full remission (HCC) Take 1 tablet by mouth once daily. 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 TAKE 1 TABLET BY [place] TH EVERY DAY Take 1 tablet by [place] th daily at bedtime. Magnesium glycinate (20 sources) take 200 mg by mouth once daily MAGNESIUM GLYCINATE ORAL Take 200 mg by mouth once daily. Active meclizine hydrochloride 25 mg oral tablet (20 sources) Antiemetic Start: End: take 1 tablet by mouth every six hours as needed meclizine (ANTIVERT) 25 mg tab Take 1 tablet by mouth four times a day as needed (vertigo). 120 tablet 08/08/2024 09/07/2024 Active Start: 11-30-2023 End: 08-08-2024 take 1 tablet by mouth three times daily as needed meclizine (ANTIVERT) 25 mg tab Indications: Benign paroxysmal positional vertigo, unspecified laterality Take 1 tablet by mouth three times a day as needed (vertigo). 30 tablet 1 07/25/2024 08/08/2024 Discontinued Start: 09-02-2022 End: 02-05-2023 meclizine (ANTIVERT) 12.5 mg tab 1-2 tabs three times a day as needed for dizziness/ vertigo 30 tablet 09/02/2022 02/05/2023 Discontinued (Other) Start: 03-05-2019 End: 07-29-2021 take 1 tablet by mouth three times daily as needed meclizine (ANTIVERT) 25 mg tab Indications: Benign paroxysmal positional vertigo, unspecified laterality Take 1 tablet by mouth three times daily as needed (vertigo). 30 tablet 1 03/05/2019 07/29/2021 Discontinued (Course of therapy completed) Start: 11-02-2017 End: 03-21-2019 take 1 tablet by mouth three times daily as needed Meclizine 25 MG tablet,chewable Discontinued 25 mg PO THREE TIMES A DAY as needed for Vertigo November 02, 2017 1:45pm March 21, 2019 10:25am Start: 08-14-2016 End: 08-01-2017 take 1 tablet by mouth three times daily as needed for dizziness Meclizine 25 MG tablet,chewable Discontinued 25 mg PO THREE TIMES A DAY as needed for Dizziness August 14, 2016 12:00am August 01, 2017 12:23pm Comment on above: 1-2 tabs three times a day as needed for dizziness/ vertigo methylPREDNISolone (20 sources) Corticosteroid Start: 10-11-2024 methylPREDNISolone (MEDROL DOSE-PACK) 4 mg Dose-Pack 10/11/2024 Active Start: 04-11-2024 End: 04-27-2024 methylPREDNISolone (MEDROL D OSE-PACK) 4 mg Dose-Pack 04/11/2024 04/27/2024 Discontinued (Course of therapy completed) Start: 04-11-2024 methylPREDNISo lone (MEDROL DOSE-PACK) 4 mg Dose-Pack 04/11/2024 Active Start: 12-29-2023 End: 08-30-2024 take 1 tablet by mouth once Methylprednisolone (Medrol (Javan)) 4 mg tablets,dose pack Discontinued 0 PO per package directions April 11, 2024 1:00am August 30, 2024 9:32am PO PER PKG DIR Start: 06-02-2023 End: 07-19-2023 take 1 tablet by mouth once Methylprednisolone (Medrol (Javan)) 4 mg tablets,dose pack Discontinued 0 PO per package directions June 02, 2023 1:00am July 19, 2023 10:46am PO PER PKG DIR Start: 02-20-2022 End: 02-26-2022 methylPREDNISolone (MEDROL, JAVAN,) 4 mg Dose-Pack Follow dosing instructions, take with food. 21 tablet 0 02/20/2022 02/26/2022 Active Comment on above: Follow dosing instru ctions, take with food. metroNIDAZOLE 500 mg oral tablet (2 sources) Nitroimidazole Antimicrobial Start: End: take 1 tablet by mouth every eight hours metroNIDAZOLE (FLAGYL) 500 mg tablet Indications: Diverticulitis Take 1 tablet by mouth every 8 hours for 7 days. 21 tablet 05/03/2024 05/10/2024 Active Multivitamin capsule (20 sources) take 1 capsule by mouth once daily Multivitamin capsule Take 1 capsule by mouth once daily. Active take 1 capsule by mouth once geno ly Multivitamin capsule Take 1 capsule by mouth once daily. 0 Active Comment on above: Take 1 capsule by [facility] once daily. ondansetron 4 mg oral tablet (20 sources) Serotonin-3 Receptor Antagonist Start: End: take 1 tablet by mouth every eight hours as needed for nausea ondansetron (ZOFRAN) 4 mg tablet Indications: BPPV (benign paroxysmal positional vertigo), unspecified laterality Take 1 tablet by mouth every 8 hours as needed for nausea/vomiting. 60 tablet 08/08/2024 09/07/2024 Active Start: 06-28-2024 End: 10-31-2024 take 1 tablet by mouth three times daily as needed for nausea and vomiting Ondansetron 4 mg tablet,disintegrating Discontinued 4 mg PO THREE TIMES A DAY as needed for nausea and vomiting June 28, 2024 7:08am October 31, 2024 1:01pm Start: 11-13-2023 End: 07-21-2024 take 1 tablet by mouth every six hours as needed for nausea ondansetron orally disintegrating (ZOFRAN ODT) 4 mg disintegrating tablet Indications: Nausea and vomiting, unspecified vomiting type Take 1 tablet by mouth every 6 hours as needed for nausea/vomiting. 30 tablet 11/13/2023 07/21/2024 Discontinued (Course of therapy completed) Start: 07-14-2019 End: 04-16-2020 take 1 tablet by mouth every six hours as needed for nausea ondansetron orally disintegrating (ZOFRAN ODT) 4 mg disintegrating tablet Indications: Neck muscle spasm Take 1 tablet by mouth every 6 hours as needed for Nausea/Vomiting. 6 tablet 07/14/2019 04/16/2020 Discontinued polyethylene glycol 3350 [id number] mg / potassium chloride 2970 mg / sodium bicarbonate 6740 mg / sodium chloride 5860 mg / sodium sulfate 18125 mg powder for oral solution (1 source) Osmotic Laxative Start: 12-28-2023 End: 12-28-2023 peg 3350-Electrolytes (GOLYTELY) 236-22.74-6.74 -5.86 gram suspension Take 4,000 mL by mouth one time only for 1 dose. Refer to printed prep instructions from your provider. 4000 mL 0 12/28/2023 12/28/2023 Active sod sulf-pot chloride-mag sulf (SUTAB) 1.479-0.188- 0.225 gram tab (1 source) Start: 01-27-2024 End: 01-29-2024 sod sulf-pot chloride-mag sulf (SUTAB) 1.479-0.188- 0.225 gram tab Indications: Encounter for screening for malignant neoplasm of colon Take 12 tablets by mouth as directed for 2 days. Follow instructions that have been given to you by your provider's office. (Part 1, take 12 tablets. Part 2, take 12 tablets). 24 tablet 01/27/2024 01/29/2024 Active tiZANidine 4 mg oral tablet (17 sources) Central alpha-2 Adrenergic Agonist Start: 07-21-2024 End: 08-20-2024 take 1 tablet by mouth twice daily as needed tiZANidine (ZANAFLEX) 4 mg tablet Indications: Viral upper respiratory tract infection Take 1 tablet by mouth two times a day as needed. 60 tablet 07/21/2024 08/20/2024 Active Start: 01-07-2024 End: 01-15-2024 take 1 tablet by mouth every eight hours as needed tiZANidine (ZANAFLEX) 4 mg tablet Take 4 mg by mouth every 8 hours as needed. 01/07/2024 01/15/2024 Discontinued (Side Effects) Completed/Discontinued Medications Medication Drug Class(es) Dates Sig (Normalized) Sig (Original) acetaminophen 325 mg / butalbital 50 mg / caffeine 40 mg oral capsule (20 sources) Barbiturate, Central Nervous System Stimulant, Methylxanthine Start: 03-02-2023 End: 08-21-2023 take 1 capsule by mouth every four hours as needed acetaminophen 325 mg-caffeine 40 mg-butalbital 50 mg (ESGIC) per capsule Take 1 capsule by mouth every 4 hours as needed. 20 capsule 03/02/2023 08/21/2023 Discontinued Start: 03-03-2022 End: 02-27-2023 take 1 capsule by mouth every four hours as needed acetaminophen 325 mg-caffeine 40 mg-butalbital 50 mg (ESGIC) per capsule Take 1 capsule by mouth every 4 hours as needed. 20 capsule 03/03/2022 02/27/2023 Discontinued Start: 07-25-2021 End: 03-03-2022 take 1 capsule by mouth every four hours as needed acetaminophen 300 mg-caffeine 40 mg-butalbital 50 mg (FIORICET) per capsule Take 1 capsule by mouth every 4 hours as needed. 12 capsule 08/14/2021 10/13/2021 Discontinued Comment on above: Take 1 capsule by mo ut every 4 hours as needed. acetaminophen 325 mg / HYDROcodone bitartrate 5 mg oral tablet (7 sources) Opioid Agonist Start: 03-08-2017 End: 08-01-2017 Hydrocodone-Acetaminophe n 1 TABLET tablet Discontinued 1 - 2 {tbl} PO EVERY 4 HOURS NEEDED as needed for Pain March 08, 2017 12:00am August 01, 2017 12:23pm Start: 03-08-2017 End: 08-01-2017 take 1 tablet by mouth every four hours as needed Hydrocodone-Acetaminophen Discontinued 1 - 2 TABLET PO EVERY 4 HOURS NEEDED March 08, 2017 12:00am August 01, 2017 12:23pm acetaminophen 325 mg / oxyCODONE hydrochloride 5 mg oral tablet (11 sources) Opioid Agonist Start: 06-28-2024 End: 08-30-2024 Oxycodone-Acetaminophen (Percocet) 5-325 mg tablet Discontinued 1 {tbl} PO EVERY 6 HOURS as needed for pain 11 10June 28, 2024 August 30, 2024 9:32am Start: 08-14-2016 End: 08-01-2017 Oxycodone-Acetaminophen 1 TA BLET tablet Discontinued 1 {tbl} PO EVERY 4 HOURS NEEDED as needed for Pain August 14, 2016 12:00am August 01, 2017 12:23pm Start: 08-14-2016 End: 08-01-2017 take 1 tablet by mouth every four hours as needed Oxycodone-Acetaminophen Discontinued 1 TABLET PO EVERY 4 HOURS NEEDED August 14, 2016 12:00am August 01, 2017 12:23pm [id number] 200 actuat albuterol 0.09 mg/actuat metered dose inhaler (20 sources) beta2-Adrenergic Agonist Start: 03-05-2021 End: 02-05-2023 take 2 puff(s) by inhalation every four hours as needed albuterol HFA (PROVENTIL HFA, VENTOLIN HFA) 90 mcg/actuation inhaler Indications: Wheezing Inhale 2 Puffs as instructed every 4 hours as needed. 1 Each 5 03/05/2021 09/30/2022 Discontinued Comment on above: Inhale 2 Puffs as instructed every 4 blank rs as needed. amoxicillin 875 mg / clavulanate 125 mg oral tablet (20 sources) Penicillin-class Antibacterial Start: 07-18-2024 End: 08-30-2024 Amoxicillin-Pot Clavulanate 875-125 mg tablet Discontinued 1 {tbl} PO TWICE A DAY July 18, 2024 1:00am August 30, 2024 9:32am Start: 02-19-2023 End: 03-01-2023 take 1 tablet by mouth twice daily amoxicillin-clavulanic acid (AUGMENTIN) 875-125 mg per tablet Indications: Bacterial sinusitis , Other acute nonsuppurative otitis media of left ear, recurrence not specified Take 1 tablet by mouth twice daily for 10 days. 20 tablet 0 02/19/2023 03/01/2023 Active Start: 07-01-2022 End: 07-08-2022 take 1 tablet by mouth twice daily amoxicillin-clavulanic acid (AUGMENTIN) 875-125 mg per tablet Indications: Sinus pressure Take 1 tablet by mouth twice daily for 7 days. 14 tablet 0 07/01/2022 07/08/2022 Active Start: 04-19-2019 End: 04-29-2019 Amoxicillin-Pot Clavulanate (Augmentin) 875-125 mg tablet Discontinued 1 {tbl} PO Q12H 13 03April 19, 2019 1:00am April 28, 2019 1:00am April 29, 2019 1:10am Start: 08-01-2017 End: 08-11-2017 Amoxicillin-Pot Clavulanate 875-125 mg tablet Discontinued 1 {tbl} PO Q12H 13 03August 01, 2017 1:00am August 10, 2017 12:00am August 11, 2017 12:06am Start: 08-01-2017 End: 08-11-2017 take 1 tablet by mouth every twelve hours Amoxicillin-Pot Clavulanate Discontinued 1 TABLET PO Q12H 13 03August 01, 2017 1:00am August 11, 2017 12:06am Comment on above: Take 1 tablet by [place] twice daily for 7 days. Take 1 tablet by [place] twice daily for 10 days. ARIPiprazole 2 mg oral tablet (20 sources) Atypical Antipsychotic Start: 01-21-20 End: 02-01-20 take 1 tablet by mouth once daily ARIPiprazole (ABILIFY) 2 mg tablet take 1 tablet by mouth every day 90 tablet 01/21/2024 02/01/2024 Discontinued Start: 01-16-2020 End: 12-29-2023 take 1 tablet by mouth at bedtime Aripiprazole 2 MG tablet Discontinued 2 mg PO AT BEDTIME January 19, 2020 12:00am December 29, 2023 7:40am Comment on above: TAKE 1 TABLET BY [place] EVERY DAY Take 1 tablet by [place] once daily. no further refills until seen for an appointment Take 1 tablet by [place] once daily. benzonatate 200 mg oral capsule (8 sources) Non-narcotic Antitussive Start: End: take 1 capsule by mouth three times daily as needed for cough Benzonatate 200 mg capsule Discontinued 200 mg PO THREE TIMES A DAY as needed for cough April 11, 2024 1:00am October 31, 2024 1:00pm Start: 06-02-2023 End: 07-19-2023 take 1 capsule by mouth three times daily as needed for cough Benzonatate 200 mg capsule Discontinued 200 mg PO THREE TIMES A DAY as needed for cough June 02, 2023 1:00am July 19, 2023 10:46am betamethasone acetate-betamethasone sodium phosphate 6 mg, BUPivacaine (PF) 5 mg, lidocaine (PF) 10 mg/mL (1 %) 10 mg (1 source) Start: 11-17-2022 End: 11-17-2022 betamethasone acetate-betamethasone sodium phosphate 6 mg, BUPivacaine (PF) 5 mg, lidocaine (PF) 10 mg/mL (1 %) 10 mg carBAMazepine 200 mg oral tablet (7 sources) Mood Stabilizer Start: 08-14-2016 End: 08-01-2017 take 1 tablet by mouth twice daily at mealtime as needed for pain Carbamazepine 200 MG tablet Discontinued 0 mg PO TWICE DAILY WITH MEALS as needed for neck pain August 14, 2016 12:00am August 01, 2017 12:22pm CPAP (2 sources) Start: 08-16-2020 End: 07-29-2021 CPAP AutoPAP 5-20 cmH2O, mask (nasal pillows or pt pref), chin strap, heated tubing & humidity, filters. Lifetime supplies. CLIFTON: G47.33. 1 Device 08/16/2020 07/29/2021 Discontinued (Course of therapy completed) dextromethorphan hydrobromide 3 mg/ml / promethazine hydrochloride 1.25 mg/ml oral solution (11 sources) Phenothiazine, Uncompetitive O-[id number]-aspart ate Receptor Antagonist, Sigma-1 Agonist Start: 07-21-2024 End: 08-08-2024 take 5 mL by mouth four times daily as needed for cough Promethazine-DM (PHENERGAN-DM) 6.25-15 mg/5 mL syrup Indications: Viral upper respiratory tract infection Take 5 mL by mouth four times a day as needed (FOR POST NASAL DRIP AND COUGH). 180 mL 07/21/2024 08/08/2024 Discontinued (Course of therapy completed) dicyclomine hydrochloride 20 mg oral tablet (2 sources) Anticholinergic Start: 01-25-2019 End: 11-02-2020 take 1 tablet by mouth four times daily as needed dicyclomine (BENTYL) 20 mg tablet Indications: Irritable bowel syndrome with diarrhea Take 1 tablet by mouth four times daily. as needed. 40 tablet 1 01/25/2019 11/02/2020 Discontinued ferrous sulfate 325 mg oral tablet (1 source) Start: 01-25-2021 End: 07-29-2021 take 1 tablet by mouth once daily at breakfast ferrous sulfate 325 mg (65 mg iron) tablet Take 1 tablet by mouth daily with breakfast. 30 tablet 5 01/25/2021 07/29/2021 Discontinued hydrOXYzine hydrochloride 25 mg oral tablet (11 sources) Antihistamine Start: 05-12-2023 End: 08-21-2023 take 1 tablet by mouth three times daily as needed hydrOXYzine HCl (ATARAX) 25 mg tablet Indications: Anxiety disorder, unspecified type Take 1 tablet by mouth three times a day as needed. 08/17/2023 08/21/2023 Discontinued Comment on above: Take 1 tablet by [place] th three times a day as needed for anxiety. Take 1 tablet by [place] th three times a day as needed. 2 ml ketorolac tromethamine 30 mg/ml injection (1 source) Nonsteroidal Anti-inflammatory Drug, Cyclooxygenase Inhibitor Start: 08-21-2023 End: 08-21-2023 keTORolac 60 mg injection (Toradol) meloxicam 15 mg oral tablet (9 sources) Nonsteroidal Anti-inflammatory Drug Start: 04-13-2020 End: 11-16-2020 take 1 tablet by mouth once daily at mealtime meloxicam (MOBIC) 15 mg tablet Indications: Acute pain of left shoulder Take 1 tablet by mouth once daily. Take with food. 20 tablet 04/13/2020 11/16/2020 Discontinued (Course of therapy completed) Start: 02-21-2019 End: 03-21-2019 take 1 tablet by mouth once daily Meloxicam 15 mg tablet Discontinued 15 mg PO DAILY February 21, 2019 12:00am March 21, 2019 10:25am metaxalone 800 mg oral tablet (4 sources) Start: 02-14-2022 End: 02-18-2022 take 1 tablet by mouth every eight hours as needed metaxalone (SKELAXIN) 800 mg tablet Take 1 tablet by mouth three times daily as needed for pain. 30 tablet 0 02/14/2022 02/18/2022 Discontinued Start: 07-14-2019 End: 11-16-2020 take 1 tablet by mouth three times daily as needed for pain metaxalone (SKELAXIN) 800 mg tablet Indications: Neck muscle spasm Take 1 tablet by mouth three times daily as needed for Pain. 15 tablet 1 07/14/2019 11/16/2020 Discontinued (Course of therapy completed) Comment on above: Take 1 tablet by [place] th three times daily as needed for pain. 24 hr metFORMIN hydrochloride 500 mg extended release oral tablet (20 sources) Biguanide Start: 06-10-19 End: 01-15-20 take 4 tablets by mouth once daily at dinner metFORMIN ER (GLUCOPHAGE XR) 500 mg 24 hr tablet Take 4 tablets by mouth daily with dinner. 120 tablet 5 08/17/2023 01/15/2024 Discontinued (Clinical Decision) Comment on above: Take 2 tablets by mo uth daily with dinner. Take 4 tablets by mo uth daily with dinner. methocarbamol 500 mg oral tablet (4 sources) Muscle Relaxant Start: 06-28-19 End: 08-31-19 take 2 tablets by mouth four times daily as needed for pain Methocarbamol 500 mg tablet Discontinued 1000 mg PO 4 TIMES DAILY as needed for Muscle pain/spasm 56 June 28, 2024 7:09am August 30, 2024 9:33am naproxen 500 mg oral tablet (20 sources) Nonsteroidal Anti-inflammatory Drug Start: 12-19-19 End: 11-14-19 take 1 tablet by mouth every twelve hours as needed naproxen (NAPROSYN) 500 mg tablet Take 1 tablet by mouth twice daily as needed (for pain/inflammation). Take with food. 30 tablet 5 12/19/2019 11/13/2020 Discontinued (Side Effects) Start: 09-01-2017 End: 03-21-2019 take 1 tablet by mouth twice daily as needed for pain Naproxen 500 MG tablet Discontinued 500 mg PO TWICE DAILY NEEDED as needed for Pain December 10, 2018 3:44pm March 21, 2019 10:24am Start: 03-08-2017 End: 08-01-2017 take 1 tablet by mouth twice daily as needed Naproxen 500 MG tablet Discontinued 500 mg PO TWICE DAILY NEEDED March 08, 2017 12:00am August 01, 2017 12:23pm norgestimate-ethinyl estradiol (SPRINTEC, 28, ORAL) (1 source) End: 03-18-2021 norgestimate-ethinyl estradiol (SPRINTEC, 28, ORAL) Take by mouth. 03/18/2021 Discontinued (Duplicate Entry) nystatin [id number] unt/ml oral suspension (2 sources) Polyene Antifungal Start: 10-29-2020 End: 03-18-2021 nystatin (MYCOSTATIN) 100,000 unit/mL suspension Indications: Oral thrush Take 5 mL by mouth four times daily. 1tsp swish in mouth for several minutes, then swallow (or expectorate) 4 times daily until gone. 200 mL 10/29/2020 03/18/2021 Discontinued (Course of therapy completed) oxyCODONE hydrochloride 5 mg oral tablet (1 source) Opioid Agonist Start: 11-09-2020 End: 03-18-2021 take 1 tablet by mouth every eight hours as needed oxyCODONE IR (ROXICODONE) 5 mg immediate release tablet Indications: Postoperative pain Take 1 tablet by mouth every 8 hours as needed. 15 tablet 11/09/2020 03/18/2021 Discontinued (Course of therapy completed) pantoprazole 20 mg delayed release oral tablet (20 sources) Proton Pump Inhibitor Start: 11-09-2020 End: 02-05-2023 take 1 tablet by mouth twice daily pantoprazole DR (PROTONIX) 20 mg tablet Take 1 tablet by mouth twice daily. 60 tablet 11 11/09/2020 11/15/2021 Discontinued Start: 12-10-2018 End: 10-31-2024 Pantoprazole 40 MG tablet Discontinued 80 {tbl} PO AT BEDTIME December 10, 2018 12:00am October 31, 2024 1:01pm Start: 12-10-2018 End: 11-09-2020 take 1 tablet by mouth twice daily pantoprazole DR (PROTONIX) 40 mg tablet Take 1 tablet by mouth twice daily. 60 tablet 11 09/29/2019 09/25/2020 Discontinued Start: 08-14-2016 End: 08-01-2017 take 1 tablet by mouth once daily Pantoprazole 20 MG tablet Discontinued 20 mg PO DAILY August 14, 2016 12:00am August 01, 2017 12:23pm Comment on above: Take 1 tablet by [place] twice daily. penicillin v potassium 250 mg oral tablet (7 sources) Start: 03-08-2017 End: 08-01-2017 Penicillin V Potassium 250 MG tablet Discontinued 500 mg PO 4 TIMES DAILY March 08, 2017 12:00am August 01, 2017 12:23pm Start: 03-08-2017 End: 08-01-2017 take 500 mg by mouth four times daily Penicillin V Potassium Discontinued 500 MG PO 4 TIMES DAILY March 08, 2017 12:00am August 01, 2017 12:23pm phentermine hydrochloride 37.5 mg oral tablet (7 sources) Sympathomimetic Amine Anorectic Start: 08-18-2023 End: 09-17-2023 take 1 tablet by mouth once daily Phentermine HCl 37.5 mg tablet Indications: Weight gain following gastric bypass surgery Take 1 tablet by mouth once daily for 30 days. 30 tablet 08/18/2023 08/21/2023 Discontinued Start: 04-13-2023 End: 07-12-2023 take 1 tablet by mouth once daily Phentermine HCl 37.5 mg tablet Indications: Weight gain following gastric bypass surgery Take 1 tablet by mouth once daily for 90 days. 30 tablet 2 04/13/2023 07/12/2023 Active Comment on above: Take 1 tablet by [place] once daily for 90 days. Take 1 tablet by [place] once daily for 30 days. polysaccharide iron complex 150 mg oral capsule (20 sources) Start: End: take 1 capsule by mouth twice daily iron polysaccharide complex (FERREX-150) 150 mg iron capsule Indications: Iron deficiency anemia, unspecified iron deficiency anemia type Take 1 capsule by mouth twice daily. 60 capsule 5 10/01/2022 01/15/2024 Discontinued (Clinical Decision) Start: 07-29-2021 End: 03-03-2022 take 1 capsule by mouth twice daily iron polysaccharide complex (FERREX-150) 150 mg iron capsule Indications: Iron deficiency anemia, unspecified iron deficiency anemia type Take 1 capsule by mouth twice daily. 60 capsule 5 07/29/2021 03/03/2022 Discontinued Comment on above: Take 1 capsule by [facility] twice daily. predniSONE 10 mg oral tablet (20 sources) Start: 07-16-2024 End: 07-25-2024 predniSONE (DELTASONE) 10 mg tablet Take 4 tabs daily for 3 days, then 2 tabs daily for 3 days, then 1 tab daily for 3 days with food. 21 tablet 07/16/2024 07/21/2024 Discontinued (Discontinued by Patient) Start: 06-28-2024 End: 08-30-2024 take 2 tablets by mouth once daily Prednisone 20 mg tablet Discontinued 40 mg PO DAILY 10 June 28, 2024 1:00am August 30, 2024 9:32am Start: 08-13-2023 End: 08-18-2023 take 2 tablets by mouth once daily predniSONE (DELTASONE) 20 mg tablet Indications: Pain in left arm , Pain in left leg Take 2 tablets by mouth once daily for 5 days. 10 tablet 0 08/13/2023 08/18/2023 Active Start: 07-19-2023 End: 07-24-2023 take 2 tablets by mouth once daily at mealtime Prednisone 20 mg tablet Discontinued 40 mg PO DAILY 10 July 19, 2023 1:00am July 23, 2023 1:00am July 24, 2023 1:04am take with food Start: 03-24-2023 End: 03-29-2023 take 2 tablets by mouth once daily predniSONE (DELTASONE) 10 mg tablet Take 2 tablets by mouth once daily for 5 days. 10 tablet 0 03/24/2023 03/24/2023 Discontinued Start: 11-28-2022 End: 01-09-2023 take 1 tablet by mouth once daily Prednisone 20 mg tablet Discontinued 20 mg PO DAILY November 28, 2022 12:00am January 09, 2023 8:29am Start: 11-03-2022 End: 11-08-2022 take 1 tablet by mouth once daily at mealtime predniSONE (DELTASONE) 20 mg tablet Indications: Acute pain of left knee , Sprain of left knee, unspecified ligament, initial encounter Take 1 tablet by mouth once daily for 5 days. Take daily with food. 5 tablet 11/03/2022 11/08/2022 Start: 07-01-2022 End: 07-06-2022 take 2 tablets by mouth once daily predniSONE (DELTASONE) 20 mg tablet Take 2 tablets by mouth once daily for 5 days. 10 tablet 0 07/01/2022 07/06/2022 Active Start: 02-04-2022 End: 02-07-2022 take 2 tablets by mouth once daily predniSONE (DELTASONE) 20 mg tablet Take 2 tablets by mouth once daily for 3 days. 6 tablet 0 02/04/2022 02/07/2022 Active Comment on above: Take 2 tablets by mo uth once daily for 3 days. Take 2 tablets by mo uth once daily for 5 days. prochlorperazine 5 mg oral tablet (4 sources) Phenothiazine Start: 2024 End: 2024 take 1 tablet by mouth three times daily as needed for nausea and vomiting Prochlorperazine Maleate (Compazine) 5 mg tablet Discontinued 5 mg PO THREE TIMES A DAY as needed for nausea and vomiting 11 12July 18, 2024 1:00am October 31, 2024 1:01pm sucralfate 1000 mg oral tablet (8 sources) Aluminum Complex Start: 2018 End: 2019 take 1 tablet by mouth four times daily sucralfate (CARAFATE) 1 gram tablet Take 1 tablet by mouth four times daily. 120 tablet 5 03/11/2019 04/16/2020 Discontinued Start: 03-08-2017 End: 08-01-2017 take 1 tablet by mouth four times daily Sucralfate 1 GM tablet Discontinued 1 g PO 4 TIMES DAILY March 08, 2017 12:00am August 01, 2017 12:24pm TENS unit and electrodes cmpk (1 source) Start: 12-08-2019 End: 05-15-2020 TENS unit and electrodes cmpk Indications: Cervical spinal stenosis , Foraminal stenosis of cervical region , Chronic neck pain , Tension headache 1 Device once daily. 1 Device 12/08/2019 05/15/2020 Discontinued topiramate 25 mg oral tablet (20 sources) Start: 11-21-2022 End: 10-10-2023 take 1 tablet by mouth twice daily topiramate (TOPAMAX) 25 mg tablet Take 1 tablet by mouth two times a day. 60 tablet 5 04/13/2023 08/21/2023 Discontinued Comment on above: Take 1 tablet by [place] th twice daily. Take 1 tablet by [place] th two times a day. traMADol hydrochloride 50 mg oral tablet (6 sources) Opioid Agonist Start: 12-10-2022 End: 01-09-2023 take 1 tablet by mouth every four hours as needed for pain Tramadol 50 mg tablet Discontinued 50 mg PO EVERY 4 HOURS NEEDED as needed for Pain December 10, 2022 12:00am January 09, 2023 8:29am venlafaxine 37.5 mg oral tablet (20 sources) Serotonin and Norepinephrine Reuptake Inhibitor Start: 05-12-2023 End: 12-28-2023 take 1 tablet by mouth twice daily in the morning venlafaxine (EFFEXOR) 37.5 mg tablet Take 1 tablet by mouth two times a day. take with 75mg tablet in the morning and in the evening. 60 tablet 1 05/12/2023 12/28/2023 Discontinued (Other) Start: 05-07-2021 End: 02-01-2024 take 1 tablet by mouth twice daily venlafaxine (EFFEXOR) 75 mg tablet TAKE 1 TABLET BY MOUTH TWICE A DAY 180 tablet 05/07/2021 11/21/2021 Discontinued Start: 02-05-2021 End: 04-11-2021 take 1 tablet by mouth twice daily venlafaxine (EFFEXOR) 75 mg tablet TAKE 1 TABLET BY MOUTH TWICE A DAY 60 tablet 2 02/05/2021 04/11/2021 Discontinued Start: 05-22-2020 End: 10-30-2020 take 1 capsule by mouth once daily venlafaxine ER (EFFEXOR XR) 150 mg 24 hr capsule Indications: Recurrent major depressive disorder, in full remission (HCC) , Anxiety disorder, unspecified type Take 1 capsule by mouth once daily. 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 30 capsule 1 12/19/2019 04/23/2020 Discontinued Start: 03-21-2019 End: 10-31-2024 take 1 capsule by mouth every twenty-four hours at bedtime Venlafaxine 150 mg capsule,extended release 24hr Discontinued 150 mg PO AT BEDTIME March 21, 2019 12:00am October 31, 2024 1:01pm Start: 12-10-2018 End: 03-21-2019 take 1 tablet by mouth at bedtime Venlafaxine 75 MG tablet Discontinued 75 mg PO AT BEDTIME December 10, 2018 12:00am March 21, 2019 10:24am Comment on above: TAKE 1 TABLET BY [place] TWICE A DAY Take 1 tablet by [place] twice daily. Take 1 tablet by [place] two times a day. Take 1 tablet by [place] two times a day. take with 75mg tablet in the morning and in the evening. Problems Active Problems Problem Classification Problem Date Documented Da te Episodic/Chronic Allergic reactions (4 sources) Urticaria; Translations: [Urticaria, unspecified] 07-19-2023 Episodic Anxiety disorders (20 sources) Panic disorder without agoraphobia; Translations: [Panic disorder [episodic paroxysmal anxiety]] Onset: 0 Resolved: 2 06-14-2019 Chronic Cardiac dysrhythmias (6 sources) Intermittent palpitations; Translations: [Palpitations] 09-21-2022 Episodic Conditions associated with dizziness or vertigo (12 sources) Lightheadedness; Translations: [Dizziness and giddiness] Episodic Contraceptive and procreative management (9 sources) Oral contraception; Translations: [Encounter for surveillance of contraceptive pills] Episodic Deficiency and other anemia (2 sources) Iron deficiency anemia; Translations: [Iron deficiency anemia, unspecified] Episodic Disorders of teeth and jaw (1 source) Temporomandibular thrlz-raxk-oohdduygcep syndrome; Translations: [Arthralgia of temporomandibular joint, unspecified side] Episodic Diverticulosis and diverticulitis (2 sources) Diverticulitis; Translations: [Diverticulitis of intestine, part unspecified, without perforation or abscess without bleeding] Onset: 4 05-03-2024 Chronic Esophageal disorders (20 sources) Gastroesophageal reflux disease; Translations: [Gastro-esophageal reflux disease without esophagitis] Onset: 9 03-11-2017 Chronic Headache; including migraine (20 sources) Chronic paroxysmal hemicrania; Translations: [Chronic paroxysmal hemicrania, not intractable] Onset: 7 02-24-2017 Chronic Headache; including migraine (4 sources) Headache; Translations: [Headache] 07-26-2024 Episodic Headache; including migraine (1 source) Headache; including migraine; Translations: [Headache, unspecified] Onset: 5 Joint disorders and dislocations; trauma-related (14 sources) Derangement of right knee; Translations: [Unspecified internal derangement of right knee] 11-28-2022 Chronic Mood disorders (20 sources) Recurrent major depression; Translations: [Major depressive disorder, recurrent, unspecified] Onset: 0 Resolved: 2 06-09-2019 Chronic Nausea and vomiting (1 source) Nausea and vomiting; Translations: [Nausea with vomiting, unspecified] 11-13-2023 Episodic Noninfectious gastroenteritis (7 sources) Gastroenteritis; Translations: [Noninfective gastroenteritis and colitis, unspecified] 01-30-2020 Episodic Osteoarthritis (20 sources) Osteoarthritis of right knee joint; Translations: [Unilateral primary osteoarthritis, right knee] Onset: 5 11-28-2022 Chronic Other aftercare (1 source) Other retirement (current) drug therapy; Translations: [Encounter for long-term current use of medication] Onset: 5 Episodic Other bone disease and musculoskeletal deformities (5 sources) Cervical somatic dysfunction; Translations: [Segmental and somatic dysfunction of cervical region] Episodic Other bone disease and musculoskeletal deformities (3 sources) Somatic dysfunction of thoracic region; Translations: [Segmental and somatic dysfunction of thoracic region] Episodic Other bone disease and musculoskeletal deformities (1 source) Somatic dysfunction of rib; Translations: [Segmental and somatic dysfunction of rib cage] 07-31-2023 Episodic Other bone disease and musculoskeletal deformities (1 source) Somatic dysfunction of left chest wall; Translations: [Segmental and somatic dysfunction of rib cage] 07-31-2023 Episodic Other circulatory disease (1 source) Orthostatic hypotension; Translations: [Orthostatic hypotension] 08-08-2024 Episodic Other connective tissue disease (1 source) Pain in right foot; Translations: [Pain in right foot] Episodic Other connective tissue disease (3 sources) Plantar fasciitis; Translations: [Plantar fascial fibromatosis] 09-02-2017 Episodic Other connective tissue disease (1 source) Bursitis of knee; Translations: [Other bursitis of knee, unspecified knee] Episodic Other connective tissue disease (1 source) Pain in left arm; Translations: [Pain in left arm] 08-13-2023 Episodic Other connective tissue disease (1 source) Pain in left lower limb; Translations: [Pain in left leg] 08-13-2023 Episodic Other connective tissue disease (4 sources) Plantar fasciitis of right foot; Translations: [Plantar fascial fibromatosis] 09-02-2017 Episodic Other female genital disorders (2 sources) Vaginal discharge; Translations: [Other specified noninflammatory disorders of vagina] Episodic Other gastrointestinal disorders (20 sources) Irritable bowel syndrome with diarrhea; Translations: [Irritable bowel syndrome with diarrhea] Onset: 9 01-25-2019 Chronic Other gastrointestinal disorders (4 sources) History of gastroesophageal reflux disease; Translations: [Personal history of other diseases of the digestive system] 07-05-2024 Episodic Other gastrointestinal disorders (4 sources) Obstipation; Translations: [Constipation, unspecified] 07-05-2024 Episodic Other injuries and conditions due to external causes (1 source) Injury of right foot; Translations: [Unspecified injury of right foot, initial encounter] Episodic Other lower respiratory disease (1 source) Wheezing; Translations: [Wheezing] Episodic Other lower respiratory disease (1 source) Cough; Translations: [Acute cough] 04-23-2022 Episodic Other nervous system disorders (4 sources) Piriformis syndrome; Translations: [Lesion of sciatic nerve, right lower limb] 07-06-2024 Chronic Other nervous system disorders (4 sources) H/O: migraine; Translations: [Personal history of other diseases of the nervous system and sense organs] 07-06-2024 Episodic Other non-traumatic joint disorders (10 sources) Pain in right knee; Translations: [Right knee pain] 11-28-2022 Episodic Other nutritional; endocrine; and metabolic disorders (20 sources) Morbid obesity; Translations: [Morbid (severe) obesity due to excess calories] Onset: 6 11-09-2020 Chronic Other nutritional; endocrine; and metabolic disorders (5 sources) Weight gain; Translations: [Abnormal weight gain] Episodic Other screening for suspected conditions (not mental disorders or infectious disease) (9 sources) Patient encounter status; Translations: [Encounter for screening mammogram for malignant neoplasm of breast] Onset: Episodic Other skin disorders (1 source) Eruption; Translations: [Rash and other nonspecific skin eruption] 07-16-2024 Episodic Other skin disorders (3 sources) Epidermoid cyst; Translations: [Epidermal cyst] 08-01-2024 Episodic Other skin disorders (3 sources) Infection of sebaceous cyst; Translations: [Sebaceous cyst] 08-04-2024 Episodic Other upper respiratory disease (1 source) Seasonal allergy; Translations: [Other seasonal allergic rhinitis] 03-24-2023 Chronic Other upper respiratory disease (1 source) Nasal sinus problem; Translations: [Other specified disorders of nose and nasal sinuses] Episodic Other upper respiratory infections (2 sources) Bacterial sinusitis; Translations: [Chronic sinusitis, unspecified] 02-19-2023 Chronic Other upper respiratory infections (15 sources) Acute sinusitis; Translations: [Acute sinusitis, unspecified] Onset: 5 04-19-2019 Episodic Otitis media and related conditions (1 source) Acute secretory otitis media; Translations: [Other acute nonsuppurative otitis media, left ear] 02-19-2023 Episodic Residual codes; unclassified (20 sources) Obstructive sleep apnea syndrome; Translations: [Obstructive sleep apnea (adult) (pediatric)] Onset: 0 12-28-2019 Chronic Residual codes; unclassified (1 source) Flushing; Translations: [Flushing] 02-05-2023 Episodic Spondylosis; intervertebral disc disorders; other back problems (1 source) Other spondylosis, lumbar region; Translations: [Other spondylosis, lumbar region] Onset: 5 Chronic Sprains and strains (14 sources) Neck sprain; Translations: [Sprain of joints and ligaments of unspecified parts of neck, initial encounter] Episodic Substance-related disorders (7 sources) Tobacco user; Translations: [Nicotine dependence, unspecified, uncomplicated] 09-06-2015 Chronic Unclassified (1 source) NO SHOW 02-24-2024 Unclassified (1 source) Cough, unspecified; Translations: [Cough, unspecified] Onset: 5 Urinary tract infections (7 sources) Cystitis; Translations: [Cystitis, unspecified without hematuria] 01-30-2020 Episodic Viral infection (2 sources) Disease caused by 2019-nCoV; Translations: [COVID-19] 02-19-2023 Episodic Past or Other Problems Problem Classification Problem Date Documented Da te Episodic/Chronic Abdominal hernia (20 sources) Hiatal hernia; Translations: [Diaphragmatic hernia without obstruction or gangrene] Onset: 1 Resolved: 1 11-09-2020 Episodic Abdominal pain (20 sources) Epigastric pain; Translations: [Epigastric pain] Onset: 5 Resolved: 5 03-12-2015 Episodic Adjustment disorders (20 sources) Adjustment disorder with depressed mood; Translations: [Adjustment disorder with depressed mood] Onset: 7 Resolved: 0 09-15-2019 Chronic Administrative/social admission (1 source) Encounter for pre-employment examination; Translations: [Encounter for pre-employment examination] Onset: 5 Episodic Complication of device; implant or graft (20 sources) Migration of intrauterine contraceptive device; Translations: [Displacement of intrauterine contraceptive device, initial encounter] Onset: 2 Resolved: 3 05-20-2021 Episodic Gastritis and duodenitis (20 sources) Acute gastritis; Translations: [Acute gastritis without bleeding] Onset: 5 Resolved: 5 05-07-2015 Episodic Genitourinary symptoms and ill-defined conditions (4 sources) Dysuria; Translations: [Dysuria] Onset: 4 Episodic Malaise and fatigue (3 sources) Fatigue; Translations: [Other fatigue] Onset: 4 04-16-2024 Episodic Menstrual disorders (20 sources) Break-through bleeding; Translations: [Excessive and frequent menstruation with irregular cycle] Onset: 2 Resolved: 3 03-18-2013 Chronic Nonspecific chest pain (20 sources) Chest pain; Translations: [Chest pain, unspecified] Onset: 4 04-13-2019 Episodic Other aftercare (20 sources) Polypharmacy ; Translations: [Other retirement (current) drug therapy] Onset: 0 09-23-2019 Episodic Other aftercare (5 sources) Long-term current use of drug therapy; Translations: [Other 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/practice owner (current) drug therapy] Onset: 0 08-29-2024 Episodic Other bone disease and musculoskeletal deformities (20 sources) Somatic dysfunction of cervicothoracic region; Translations: [Segmental and somatic dysfunction of cervical region] Onset: 9 01-25-2019 Episodic Other complications of (20 sources) Reduced movement; Translations: [Decreased movements, unspecified trimester, not applicable or unspecified] Onset: 8 Resolved: 8 05-12-2008 Episodic Other connective tissue disease (20 sources) Fibromyalgia; Translations: [Fibromyalgia] Onset: 7 08-20-2016 Episodic Other gastrointestinal disorders (20 sources) Diarrhea; Translations: [Diarrhea, unspecified] Onset: 9 12-16-2023 Episodic Other gastrointestinal disorders (20 sources) Occult blood in stools; Translations: [Other fecal abnormalities] Onset: 4 12-23-2023 Episodic Other gastrointestinal disorders (2 sources) Diarrhea, unspecified; Translations: [Diarrhea, unspecified type] Onset: 4 Episodic Other gastrointestinal disorders (2 sources) Other fecal abnormalities; Translations: [Occult blood positive stool] Onset: 4 Episodic Other non-traumatic joint disorders (20 sources) Shoulder pain; Translations: [Pain in left shoulder] Onset: 0 04-23-2020 Episodic Other non-traumatic joint disorders (20 sources) Pain in left shoulder; Translations: [Pain in joint, shoulder region] Onset: 0 04-23-2020 Episodic Other skin disorders (19 sources) Sebaceous cyst of skin; Translations: [Sebaceous cyst] Onset: 5 07-25-2024 Episodic Other skin disorders (1 source) Sebaceous cyst; Translations: [Infected sebaceous cyst] Onset: 5 Episodic Other skin disorders (1 source) Epidermal cyst; Translations: [Epidermal inclusion cyst] Onset: 5 Episodic Phlebitis; thrombophlebitis and thromboembolism (2 sources) Phlebitis; Translations: [Phlebitis and thrombophlebitis of unspecified site] Onset: 4 05-03-2024 Episodic Residual codes; unclassified (20 sources) Tobacco user; Translations: [Tobacco use] Onset: 2 Resolved: 8 07-22-2017 Episodic Residual codes; unclassified (20 sources) Prevention status; Translations: [Encounter for prophylactic measures, unspecified] Resolved: 5 03-12-2015 Episodic Skin and subcutaneous tissue infections (20 sources) Carbuncle of trunk; Translations: [Carbuncle of trunk, unspecified] Onset: 8 Resolved: 5 03-12-2015 Episodic Spondylosis; intervertebral disc disorders; other back problems (20 sources) Low back pain; Translations: [Lumbago] Onset: 0 07-26-2009 Episodic Results Test Name Value Interpretation Reference Range Facility [facility] 11-09-2024 CNPN Telephone (FAMPWS) FERNANDA HERNANDEZ ([id number]) 1980 F Date Time Provider Department 11/09/24 BETTINA FUENTES [facility] During your visit today, we recorded the following information about you: Yojana Palmer RN 11/09/2024 8:57 AM Signed Patient calling in. Reports she is currently in [place]. Reports she saw [facility] last week for a steroid injection, which has not helped her left knee pain. States she has right leg sciatica flare now as well and is going crazy due to the discomfort. Unable to take NSAIDS. Taking Tylenol, using ice and topical analgesics. Tearful. Asking if Milady Fuentes CNP would send [facility] [place] for prednisone or other medication. Pt sees Dr. Hummel in Pain Mgmt for cervical issues. Informed pt that provider is out of the office. Advised patient to contact [facility] or seek local UC or ED for severe pain. Patient asking if Dr. Mobley could offer her any further advise or assistance. Patient FREDRICK Mendez William J, MD 11/09/2024 9:14 AM Signed Agree. Can't [place] something stronger [place] state [place] legally. Just had a steroid injection so not sure they can do much more. Agree, can call ortho for ideas or see local urgent care or er if it is that severe. Can try something like voltaren gel otc if joint is not hot or red. Yojana Palmer RN 11/09/2024 10:27 AM Signed Attempted to call patient back with provider's message, no answer. VM left to call provider's office and ask for a nurse, for response below. FREDRICK Mendez Krystle, RN 11/09/2024 10:46 AM Signed Patient returns call and provider message reviewed with verbalized understanding. Sophia Greco RN Allergies As of Date: 11/09/2024 Noted Allergy Reaction ACIPHEX (RABEPRAZOLE SODIUM) 07/09/2016 2 - Rash ENTEX PSE (PSEUDOEPHEDRINE-GUAIFE* Comments: INSOMNIA NEXIUM (ESOMEPRAZOLE MAGNESIUM) 07/11/2016 14 - Other: See Comments Comments: Made acid reflux worse PREVACID (LANSOPRAZOLE) 03/06/2005 Comments: HEADACHE PRILOSEC (OMEPRAZOLE) 03/06/2005 Comments: HEADACHE SULFA (SULFONAMIDE ANTIBIOTICS) 03/06/2005 2 - Rash WELLBUTRIN (BUPROPION HCL) 05/08/2014 8 - GI Upset Date Reviewed: 10/14/2024 Reviewed by: Ghazal John MA - Fully Assessed Reason for Visit: Patient Update [1234] Prescriptions as of 11/09/2024 - baclofen 10 mg tablet Take 10 mg by mouth three times a day as needed. - methylPREDNISolone (MEDROL DOSE-PACK) 4 mg Dose-Pack - gabapentin (NEURONTIN) 300 mg capsule Take 1 capsule by mouth four times daily for 90 days. 300 mg in AM, 300 mg mid day, 600 mg at bedtime - lamoTRIgine (LAMICTAL) 150 mg tablet Take 1 tablet by mouth daily at bedtime. take with 100 mg tablet for total daily dose 250 mg - lamoTRIgine (LAMICTAL) 100 mg tablet Take 1 tablet by mouth daily at bedtime. take with 150 mg tablet for total daily dose 250 mg - DULoxetine (CYMBALTA) 30 mg capsule Take 1 capsule by mouth once daily. - clonazePAM (KLONOPIN) 0.5 mg tablet can take Klonopin 0.5mg 1/2 tablet daily for anxiety attacks as needed, use very sparingly, do not mix with alcohol and do not drive after taking Max order is 5 pills or 10 doses per month - norgestimate 0.25 mg-ethinyl estradiol 35 mcg (TAMARA) 0.25-35 mg-mcg per tablet Take 1 tablet by mouth once daily. Take active pills only. No inactive week. - MAGNESIUM GLYCINATE ORAL Take 200 mg by mouth once daily. - Multivitamin capsule Take 1 capsule by mouth once daily. - BIOTIN, BULK, MISC - cholecalciferol, vitamin D3, (VITAMIN D3 ORAL) Take by mouth. - ascorbic acid (VITAMIN C ORAL) Take by mouth once daily. Meds Comments as of 07/16/2007: All medications have been reviewed July 16, 2007 Cher Andre Rn Problem List As Of Date 11/09/2024 Noted Resolved Abdominal pain, epigastric [R10.13] 04/02/2005 03/12/2015 Acute gastritis without mention of hemorrhage [*04/11/2005 05/07/2015 Adjustment disorder with depressed mood [F43.21]02/02/2007 09/15/2019 DECREASED MOVMT-ANTEPARTUM [O36.8190] 01/20/2008 05/12/2008 Carbuncle and furuncle of trunk [L02.239, L02.2*05/12/2008 03/12/2015 GERD (gastroesophageal reflux disease) [K21.9] 03/12/2009 Lumbago [M54.50] 07/26/2009 Breakthrough bleeding with IUD [N92.1, Z97.5] 03/04/2012 03/18/2013 IUD migration [T83.32XA] 03/04/2012 03/18/2013 Tobacco abuse [Z72.0] 04/13/2012 07/22/2017 Unspecified prophylactic or treatment measure [* 03/12/2015 Morbid obesity (HCC) [E66.01] 03/14/2016 Fibromyalgia [M79.7] 08/20/2016 Paroxysmal hemicrania, 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/ [facility] Chief Complaint: Left knee steroid injection Allergies lansoprazole (From Prevacid) Allergy (Verified 10/31/24 13:00) Unknown rabeprazole (From Aciphex) Allergy (Verified 10/31/24 13:00) Hives Sulfa (Sulfonamide Antibiotics) Allergy (Verified 10/31/24 13:00) Unknown omeprazole (From Prilosec) Adverse Reaction (Verified 10/31/24 13:00) Other omeprazole magnesium (From Prilosec) Adverse Reaction (Verified 10/31/24 13:00) Other Office Procedures [facility] Billing Sheet Covid Covid Swab-Rapid: Yes Results POC FLU A B Office Flu A B Negative FLU A B Last Edit by Samreen Leung on 07/18/24 07:57 POC SARS AG POC SARS AG Negative Last Edit by Samreen Leung on 07/18/24 07:57 11/01/24 1427 Date [facility] Signature: Date (if applicable) CC: Normal [facility] Knee 4 or More Viewson 10-31 Knee 4 or More Views [facility] [address] [place] [id number] Knee 4 or More Views MR#: [id number] Acct: [id number] Name: FERNANDA HERNANDEZ Rep #: [id number] : 1980 F 44 From: Patsy rothman MD PCP: FLORES Tee Status: DEP AMB Study: Knee 4 or More Views Date of Exam: 10/31/24 Exam# [id number] Ordering Dr: Lindsay Rivera PROCEDURE: KNEE 4 OR MORE VIEWS 10/31/2024 REASON FOR EXAM: ONGOING KNEE PAIN TECHNIQUE: 4 view(s) of the left knee COMPARISON: 12/10/2022. FINDINGS: Mild tricompartmental changes of degenerative joint disease, more prominent in the medial tibiofemoral compartment. Minimal suprapatellar knee joint effusion. No fracture or dislocation is seen. RAD/Knee 4 or More Views IMPRESSION: No radiographic evidence of an acute abnormality. Degenerative joint disease, mildly progressed. Reading Location: [place] [address] CC: DERRICK FOLLOWER Bettina Fuentes; REN Rivera Career Development Coordinator/Teacher: Signed Normal [facility] Orthopedic Visit Reporton Orthopedic Visit Report [facility] [address] [place] [address] OFFICE VISIT Date of Service: 10/31/24 MR#: [id number] Acct: [id number] Name: FERNANDA HERNANDEZ Rep #: [id number] : 1980 Provider: REN hutchison Age/Sex: 44/F Location: [facility] Status: Signed Intake Vital Signs 09/13/24 09:07 10/31/24 12:56 Height 5 ft 3 in 5 ft 3 in Weight: 240 lb BMI 42.5 Intake Visit Reasons: LEFT KNEE Chief Complaint: Left knee steroid injection Accompanied by: Self Is patient in pain?: Yes Pain scale (1-10): 3 Allergies lansoprazole (From Prevacid) Allergy (Verified 10/31/24 13:00) Unknown rabeprazole (From Aciphex) Allergy (Verified 10/31/24 13:00) Hives Sulfa (Sulfonamide Antibiotics) Allergy (Verified 10/31/24 13:00) Unknown omeprazole (From Prilosec) Adverse Reaction (Verified 10/31/24 13:00) Other omeprazole magnesium (From Prilosec) Adverse Reaction (Verified 10/31/24 13:00) Other Medications ???Medication ???Instructions ???Recorded ???Confirmed ???Type norgestimate 0.25 mg-ethinyl 1 ea PO DAILY bcp 12/10/18 5 History estradiol 0.035 mg tablet lamotrigine 25 mg tablet 50 mg PO QHS 04/12/19 10/31/24 His tory diclofenac sodium 1 % topical gel 4 g topical TID #100 grams 10/31/24 Rx (Voltaren Arthritis Pain) Have you fallen in the past year?: No PFS Medical History Osteoarthritis of left knee Back pain Difficulty balancing Knee pain Chest pain Migraines Fatigue Stomach ulcer Shoulder pain SOB (shortness of breath) Arthritis Surgical History Gastric bypass status for obesity History of cholecystectomy History of tonsillectomy History of bilateral breast reduction surgery Social History Smoking Status: Former smoker HPI LEFT KNEE Details: This documentation accurately reflects the service provided and the decisions made by me, Lindsay Rivera, AIRCRAFT SALES REPRESENTATIVE-C 10/31/24 [id number]. Part of today???s visit was documented by Treasure Tay MA, acting as scribe. FERNANDA HERNANDEZ is a 44 year old F here today for left knee steroid injection. Vanessa is a pleasant 44-year-old female presenting today for evaluation of left knee pain and requesting steroid injection. Patient had series of 3 Supartz injection completed in August 2024 with no symptom improvement per Dr. Levy. Patient states she is under the impression she could get an additional 2 Supartz, however there was time lapse in insurance did not allow additional injections. Patient has had knee pain for a couple of years. She has attempted bracing but has difficulty with good fit and support of the knee brace in the past. Patient takes Tylenol on as needed basis, mostly for neck pain. Patient does have diclofenac gel but has not tried for knee symptom improvement. She is intolerant of NSAIDs secondary to gastric bypass surgery. ROS Const All systems reviewed are unremarkable except as noted in H and other (A O x 3, no apparent distress. No recent illness.) ENT Denies dizziness Card Denies chest pain, Denies dyspnea, Denies edema and Reports other (No palpitations) Resp Denies cough, Denies dyspnea and Reports other (No recent URI) GI Reports system reviewed and no additional complaints, except as documented, Denies nausea and Denies vomiting Musc Reports as per HPI, Reports arthralgias and Reports joint swelling Neuro No dizziness Psych Reports system reviewed and no additional complaints, except as documented Reece/Lymph Denies easy bleeding and Denies easy bruising Ortho Exam General General: Yes no acute distress and Yes well groomed Neurologic: Yes alert and Yes oriented x3 Psychologic: Yes reasonable and appropriate Left Knee KNEE: Skin is pink, warm, dry and intact. Mild to moderate medial anterior knee swelling, moderate soft popliteal swelling Range of motion: 0 to 120 degrees Palpation: Tender with palpation and range of motion to medial aspect of the knee, minimal to popliteal fossa Special tests: Bon positive; Benita negative; anterior drawer negative; posterior drawer negative; medial joint opening negative; lateral joint opening negative Lower leg is soft, nontender, easily compressible, Homans negative Mild crepitus on palpation during today's exam Gait: Ambulatory with steady gait with mild left-sided limp Full range of distal joints with no symptom aggravation Distal motor or sensory intact with brisk cap refill at 2 seconds Office Procedures Ortho Injections Injections Yes Knee Left Is this a patient provided medication?: No Details: We discussed risk and bene (more content not included)... Normal [facility] CNOVon 10-14-2024 CNOV Office Visit (FAMPWS ) FERNANDA HERNANDEZ ([id number]) 1980 F Date Time Provider Department 10/14/24 3:20 PM SUPPANBETTINA During your visit today, we recorded the following information about you: Pulse Blood pressure Weight 87/minute 130/76 108.4 kg Bettina Fuentes APRN.CNP 10/14/2024 3:49 PM Signed This is a 44 year old female who presents today with: Patient presents with: Acute Visit: Left side of face is hot, side of mouth is tingly, left earache, left side neck pain HISTORY OF PRESENT ILLNESS: Fernanda Hernandez is a 44 year old female. Patient presents with: Acute Visit: Left side of face is hot, side of mouth is tingly, left earache, left side neck pain Fernanda is a 44-year-old female presenting with acute onset left facial erythema and warmth, left ear pain, and chronic neck pain. Left Facial Erythema and Warmth: - Onset today around 12:00, resolved by 14:00. - Erythema and warmth localized to the left cheek, extending slightly to the nose and right side. - Describes sensation as hot to the touch. - No associated pain, sinus congestion, or dental pain. - Denies fever or chills. Left Ear Pain: - Acute onset today, described as a sharp pressure similar to an earache. - Pain radiates down the neck and under the jaw. - Denies dysphagia. Chronic Neck Pain: - Severe neck pain for several weeks, with a history of chronic neck pain for years. - Recent exacerbation following a crack in the neck while bending over to pet a dog about 1.5 weeks ago. - Describes sensation as somebody is digging up underneath my skull and trying to lift it up. - Suspected slipped or herniated disc; awaiting MRI approval. - Pain radiates down the arm and into the fingers, present for about 1.5 weeks. 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 - Reports medications are ineffective for pain relief. - Currently on day 4 of a tapering steroid pack. - Taking Lamictal, recently increased by psychiatrist. - Has leftover Percocet from a previous ER visit, taken last night. - Denies recent trauma; unsure if current issues are related to a past fall. - Physical therapy reportedly worsened the condition. PAST MEDICAL HISTORY: PAST MEDICAL HISTORY Diagnosis Date Delayed emergence from general anesthesia Fibromyalgia 08/20/2016 GERD (gastroesophageal reflux disease) 03/12/2009 Hiatal hernia Hypoglycemia, unspecified Mental disorder anxiety and depression Migraine without aura 2001 Morbid obesity (HCC) Normal cardiac stress test 01/23/2012 PONV (postoperative nausea and vomiting) Sleep apnea Snoring Unspecified prophylactic or treatment measure PAST SURGICAL HISTORY Procedure Laterality Date COLONOSCOPY BX SINGLE/MULTI 02/04/2024 COLONOSCOPY W/BIOPSY SINGLE/MULTIPLE 12/14/2018 EGD 01/31/2020 ESOPHAGOGASTRODUODENOSCOPY TRANSORAL DIAGNOSTIC 04/11/2005 EGD ESOPHAGOGASTRODUODENOSCOPY TRANSORAL DIAGNOSTIC 03/06/2017 EGD GASTRIC BYPASS, TATI-EN-Y 11/08/2020 w/ Lap hiatal hernia repair LAP REPAIR, PARAESOPHAGEAL HIATAL HERNIA 11/08/2020 LAPAROSCOPY SURG CHOLECYSTECTOMY 03/21/2016 REDUCTION OF LARGE BREAST 2014 TONSILLECTOMY AND ADENOIDECTOMY AGE 11/> 2002 DR. EASTMAN ALLERGIES Aciphex [Rabeprazole Sodium], Entex Pse [Pseudoephedrine-Guaifenesi n], Nexium [Esomeprazole Magnesium], Prevacid [Lansoprazole], Prilosec [Omeprazole], Sulfa (Sulfonamide Antibiotics), and Wellbutrin [Bupropion Hcl] MEDICATIONS Current Outpatient Medications Medication Sig baclofen 10 mg tablet Take 10 mg by mouth three times a day as needed. methylPREDNISolone (MEDROL DOSE-PACK) 4 mg Dose-Pack gabapentin (NEURONTIN) 300 mg capsule Take 300 mg by mouth two times a day. lamoTRIgine (LAMICTAL) 150 mg tablet Take 1 tablet by mouth daily at bedtime. take with 100 mg tablet for total daily dose 250 mg lamoTRIgine (LAMICTAL) 100 mg tablet Take 1 tablet by mouth daily at bedtime. take with 150 mg tablet for total daily dose 250 mg DULoxetine (CYMBALTA) 30 mg capsule Take 1 capsule by mouth once daily. norgestimate 0.25 mg-ethinyl estradiol 35 mcg (TAMARA) 0.25-35 mg-mcg per tablet Take 1 tablet by mouth once daily. Take active pills only. No inactive week. MAGNESIUM GLYCINATE ORAL Take 200 mg by mouth once daily. Multivitamin capsule Take 1 capsule by mouth once daily. BIOTIN, BULK, MISC cholecalciferol, vitamin D3, (VITAMIN D3 ORAL) Take by mouth. ascorbic acid (VITAMIN C ORAL) Take by mouth once daily. clonazePAM (KLONOPIN) 0.5 mg tablet can take Klonopin 0.5mg 1/2 tablet daily for anxiety attacks as needed, use very sparingly, do not mix with alcohol and do not drive after taking Max order is 5 pills or 10 doses per month baclofen 5 mg tablet gabapentin (NEURONTIN) 100 mg capsule Take 1 capsule by mouth (more content not included)... Normal [facility] PT D/C Summary (1)on 025 PT D/C Summary (1) [facility] [address] [place] [address] / REHABILITATION SERVICES DISCHARGE SUMMARY MR#: [id number] Acct: [id number] Name: FERNANDA HERNANDEZ Rep #: [id number] : 1980 44 From: Roc Grover DPT, OCS, CSCS Referring Dr.: FLORES Fuentes Status: R EG RCR Insurance: [facility] SELF PAY INSURANCE Discharge Summary D/C summary: It has been my pleasure to treat FERNANDA HERNANDEZ referred by FLORES Tee, with the diagnosis of BPPV and Dr. Hummel for neck pain for a total of 13 visit(s). Discharge Date: 10/05/24 Please see the following information for a summary of their discharge status. Subjective Subjective: Dr. Fuentes sent for vertigo and has not had any issues for a long time. Activities are normal with dizzyness. Dr. Hummel sent for neck and it is not improving. Wants MRI. Neck pain is worse up to 8/10 L neck and into L arm and behind ear. Intermittent without reason. Pain goes down L arm. Feels weak. HEP : sometimes does towel rotations. and extension. Bending over to pet dog makes her worse. Dizzyness 100% betteer adn neck was improving but has backslid to no better again. Pain neck stiffness: Pain Intensity (Out of 10): 4 Neck pain: Pain Intensity (Out of 10): 8 Overall Improvement % Improvement: 50 Objective Objective/Function: head movements today without dizziness. neck ROM r rotation 62 and L 72, pain L sidee with R rotation. cervical extension 55 degrees with pain. UE AROM WFL but seems weak in L biceps slightly vs R. Good balance today and walking and transitioning normally. has sharp pains upper neck L side Goals Goal 1:: abolish dizzy feeling for 3 days Goal Progress: Goal Met Goal 2:: FGA score 28/30 Goal Progress: not tested but good karma Goal 3:: Appropriate cervical posture and scapular without cueing Goal Progress: Progressing Goal 4:: I appropriate HEP to minimize future problems Goal Progress: Not Progressing Goal 5:: DHI score 8 or less Goal Progress: Goal Met Goal 6:: Pt feel 95% back to normal Goal Progress: Not Progressing Plan Plan: d/c, pt doing well with dizziness but continues to have neck pain and arm symptoms and is appropriate to return to Dr. Hummel for next medical step. D/C Information d/c sentence: If there are questions or concerns regarding this patient's physical therapy, please feel free to call me at [phone]. Thank you for the referral of this patient. Sincerely, Roc Grover, DPT, OCS, CSCS Balance/Gait/Functional tests Balance/Special Test Scores Functional Gait Assessment Score: 22 % Disability: 26.6700 CATSIB Score (Max score 120 seconds): 90 Dizziness Score: 4 Improvement % Improvement: 50 10/05/24 0933 CC: FLORES Fuentes EBG Signed Normal [facility] Orthopedic Visit Reporton Orthopedic Visit Report [facility] [address] [place] [address] OFFICE VISIT Date of Service: 09/13/24 MR#: [id number] Acct: [id number] Name: FERNANDA HERNANDEZ Rep #: [id number] : 1980 Provider: Dr. Jermaine aocsta MD Age/Sex: 44/F Location: [facility] Status: Signed Intake Vital Signs 07/18/24 18:47 09/06/24 09:10 09/13/24 09:07 Height 5 ft 3 in 5 ft 3 in 5 ft 3 in Weight: 240 lb 240 lb BMI 42.5 42.5 Intake Visit Reasons: LEFT KNEE Chief Complaint: 3rd left knee injection Accompanied by: Self Is patient in pain?: Yes Pain scale (1-10): 2 Allergies lansoprazole (From Prevacid) Allergy (Verified 09/13/24 09:10) Unknown rabeprazole (From Aciphex) Allergy (Verified 09/13/24 09:10) Hives Sulfa (Sulfonamide Antibiotics) Allergy (Verified 09/13/24 09:10) Unknown omeprazole (From Prilosec) Adverse Reaction (Verified 09/13/24 09:10) Other omeprazole magnesium (From Prilosec) Adverse Reaction (Verified 09/13/24 09:10) Other Medications ???Medication ???Instructions ???Recorded ???Confirmed ???Type norgestimate 0.25 mg-ethinyl 1 ea PO DAILY bcp 12/10/18 5 History estradiol 35 mcg tablet pantoprazole 40 mg tablet,delayed 80 tab PO QHS gerd 12/10/1809/13 History release venlafaxine 150 mg 150 mg PO QHS #30 caps 03/21/19 History capsule,extended release 24 hr lamotrigine 25 mg tablet 50 mg PO QHS 04/12/19 09/13/24 His tory diclofenac sodium 1 % topical gel 4 g topical TID #100 grams 09/13/24 Rx (Voltaren Arthritis Pain) benzonatate 200 mg capsule 200 mg PO TID PRN cough #20 caps 1 06/11/23 09/13/24 Rx ondansetron 4 mg disintegrating 4 mg PO TID PRN nausea and 5 09/13/24 Rx tablet vomiting #21 tabs prochlorperazine maleate 5 mg 5 mg PO TID PRN nausea and 5 09/13/24 Rx tablet (Compazine) vomiting 7 days #20 tabs Have you fallen in the past year?: Yes PFSH Medical History Osteoarthritis of left knee Back pain Difficulty balancing Knee pain Chest pain Migraines Fatigue Stomach ulcer Shoulder pain SOB (shortness of breath) Arthritis Surgical History Gastric bypass status for obesity History of cholecystectomy History of tonsillectomy History of bilateral breast reduction surgery Social History Smoking Status: Former smoker HPI LEFT KNEE Details: This documentation accurately reflects the service provided and the decisions made by me, Dr. Jermaine Levy MD 09/13/24 0755. Part of today???s visit was documented by [ ], acting as scribe. FERNANDA HERNANDEZ is a 44 year old F here today for L knee supartz 3/3. Doing well. No concerns. Office Procedures Ortho Injections Injections Yes Knee Left Is this a patient provided medication?: Yes Details: Obtained consent for injection. Under sterile conditions, injected the patients left knee with 2.5ml Supartz. The patient tolerated the injection well without any noted complication. Patient should call our office if redness develops, pain worsens or if they have any concerns. Office Meds Supartz FX 10 mg/mL intra-articular syringe Performing Provider: Jermaine Levy MD Performing Location: [facility] Administered by: Jermaine Levy MD on 09/13/24 09:15 Dose Route Admin Location Dispensed Lot Number Expiration Date NDC Man ufacturer 25 mg intra-articular Left knee 2.5 mL [id number] 07/23/27 [address]-2 [employer] Coding Level of Care Code Attention Gopi Diagnoses Osteoarthritis of left knee M17.12 CPT Codes film replacement [email or web address] ([id number]) Comment L knee supartz 3/3. Assessment and Plan Assessment and Plan (1) Osteoarthritis of left knee: Status: Acute Plan: 44 year old F here today for L knee supartz 3/3. FU PRN. Left knee intra-articular supartz injection. We did it supine this week to avoid her usual vaso vagal symptoms. We discussed the pros and cons risks and benefits of going ahead with left knee intra-articular supartz injection. The risks include but are not limited to infection, pain, acute flare reaction, stiffness, bleeding, damage to surrounding structures, worsening arthritis or damage to the cartilage. The patient wished to proceed. The anterior aspect of the knee was prepped with chlorhexidine in the usual sterile fashion. Sterile no touch technique was employed. Used Gebauer spray per bottle instructions. 2cc supartz was injected into the intra-articular portion of the knee. The patient tolerated procedure well. Bandage placed. There is no complications. Standard post procedure care inst (more content not included)... Normal [facility] Orthopedic Visit Reporton Orthopedic Visit Report [facility] [address] [place] [address] [address] [place] [address] OFFICE VISIT Date of Service: 09/06/24 MR#: [id number] Acct: [id number] Name: FERNANDA HERNANDEZ Rep #: [id number] : 1980 Provider: Dr. Jermaine acosta MD Age/Sex: 44/F Location: [facility] Status: Signed Intake Vital Signs 07/18/24 18:47 09/06/24 09:10 Height 5 ft 3 in 5 ft 3 in Weight: 240 lb BMI 42.5 Intake Visit Reasons: LEFT KNEE Chief Complaint: 2nd left knee injection Accompanied by: Self Is patient in pain?: No Allergies lansoprazole (From Prevacid) Allergy (Verified 09/06/24 09:14) Unknown rabeprazole (From Aciphex) Allergy (Verified 09/06/24 09:14) Hives Sulfa (Sulfonamide Antibiotics) Allergy (Verified 09/06/24 09:14) Unknown omeprazole (From Prilosec) Adverse Reaction (Verified 09/06/24 09:14) Other omeprazole magnesium (From Prilosec) Adverse Reaction (Verified 09/06/24 09:14) Other Medications ???Medication ???Instructions ???Recorded ???Confirmed ???Type norgestimate 0.25 mg-ethinyl 1 ea PO DAILY bcp 12/10/18 5 History estradiol 35 mcg tablet pantoprazole 40 mg tablet,delayed 80 tab PO QHS gerd 12/10/1809/06 History release venlafaxine 150 mg 150 mg PO QHS #30 caps 03/21/19 History capsule,extended release 24 hr lamotrigine 25 mg tablet 50 mg PO QHS 04/12/19 09/06/24 His tory diclofenac sodium 1 % topical gel 4 g topical TID #100 grams 09/06/24 Rx (Voltaren Arthritis Pain) benzonatate 200 mg capsule 200 mg PO TID PRN cough #20 caps 1 06/11/23 09/06/24 Rx ondansetron 4 mg disintegrating 4 mg PO TID PRN nausea and 5 09/06/24 Rx tablet vomiting #21 tabs prochlorperazine maleate 5 mg 5 mg PO TID PRN nausea and 5 09/06/24 Rx tablet (Compazine) vomiting 7 days #20 tabs Have you fallen in the past year?: Yes [facility] Medical History Osteoarthritis of left knee Back pain Difficulty balancing Knee pain Chest pain Migraines Fatigue Stomach ulcer Shoulder pain SOB (shortness of breath) Arthritis Surgical History Gastric bypass status for obesity History of cholecystectomy History of tonsillectomy History of bilateral breast reduction surgery Social History Smoking Status: Former smoker HPI LEFT KNEE Details: This documentation accurately reflects the service provided and the decisions made by me, Dr. Jermaine Levy MD 09/05/241956. Part of today???s visit was documented by [ ], acting as scribe. FERNANDA HERNANDEZ is a 44 year old F here today for L knee supartz 2/3. Well. no concerns. Office Procedures Ortho Injections Injections Yes Knee Left Is this a patient provided medication?: Yes Details: Obtained consent for injection. Under sterile conditions, injected the patients left knee with 25mg Supartz. The patient tolerated the injection well without any noted complication. Patient should call our office if redness develops, pain worsens or if they have any concerns. Office Meds Supartz FX 10 mg/mL intra-articular syringe Performing Provider: Jermaine Levy MD Performing Location: [facility] Administered by: Jermaine Levy MD on 09/06/24 09:18 Dose Route Admin Location Dispensed Lot Number Expiration Date NDC Man ufacturer 25 mg intra-articular Left knee 2.5 mL [id number] 07/23/27 [address]-1 [employer] Coding Level of Care Code Attention Gopi Diagnoses Osteoarthritis of left knee M17.12 CPT Codes film replacement [email or web address] ([id number]) Comment L knee supartz 2/3 Assessment and Plan Assessment and Plan (1) Osteoarthritis of left knee: Status: Acute Plan: 44 year old F here today for L knee supartz 2/3. FU 1 week. Left knee intra-articular supartz injection. We did it supine this week to avoid her usual vaso vagal symptoms. We discussed the pros and cons risks and benefits of going ahead with left knee intra-articular supartz injection. The risks include but are not limited to infection, pain, acute flare reaction, stiffness, bleeding, damage to surrounding structures, worsening arthritis or damage to the cartilage. The patient wished to proceed. The anterior aspect of the knee was prepped with chlorhexidine in the usual sterile fashion. Sterile no touch technique was employed. Used Gebauer spray per bottle instructions. 2cc supartz was injected into the intra-articular portion of the knee. The patient tolerated procedure well. Bandage placed. There is no complications. Standard post procedure care instructions were given. Red flag symptoms were discussed in which c (more content not included)... Normal [facility] 08-30-2024 [facility] Telephone (PSYCST) FERNANDA HERNANDEZ ([id number]) 1980 F Date Time Provider Department 08/30/24 DAVON DOWNS PSYCST During your visit today, we recorded the following information about you: Ellie Kwong LPN 08/30/2024 1:58 PM Signed Spoke with the patient confirming today's virtual visit at 2:00 PM. Ellie Kwong LPN Allergies As of Date: 08/30/2024 Noted Allergy Reaction ACIPHEX (RABEPRAZOLE SODIUM) 07/09/2016 2 - Rash ENTEX PSE (PSEUDOEPHEDRINE-GUAIFE* Comments: INSOMNIA NEXIUM (ESOMEPRAZOLE MAGNESIUM) 07/11/2016 14 - Other: See Comments Comments: Made acid reflux worse PREVACID (LANSOPRAZOLE) 03/06/2005 Comments: HEADACHE PRILOSEC (OMEPRAZOLE) 03/06/2005 Comments: HEADACHE SULFA (SULFONAMIDE ANTIBIOTICS) 03/06/2005 2 - Rash WELLBUTRIN (BUPROPION HCL) 05/08/2014 8 - GI Upset Date Reviewed: 08/29/2024 Reviewed by: Davon Downs APRN.AGENCY OWNER - Fully Assessed Reason for Visit: Appointment [186] Prescriptions as of 08/30/2024 - lamoTRIgine (LAMICTAL) 200 mg tablet TAKE 1 TABLET BY MOUTH EVERYDAY AT BEDTIME - meclizine (ANTIVERT) 25 mg tab Take 1 tablet by mouth four times a day as needed (vertigo). - ondansetron (ZOFRAN) 4 mg tablet Take 1 tablet by mouth every 8 hours as needed for nausea/vomiting. - baclofen 5 mg tablet - gabapentin (NEURONTIN) 100 mg capsule Take 1 capsule by mouth three times a day for 90 days. - fluticasone (FLONASE ALLERGY RELIEF) 50 mcg/actuation nasal spray Use 1 Procious in each nostril once daily. - DULoxetine (CYMBALTA) 30 mg capsule Take 1 capsule by mouth once daily. - norgestimate 0.25 mg-ethinyl estradiol 35 mcg (TAMARA) 0.25-35 mg-mcg per tablet Take 1 tablet by mouth once daily. Take active pills only. No inactive week. - MAGNESIUM GLYCINATE ORAL Take 200 mg by mouth once daily. - Multivitamin capsule Take 1 capsule by mouth once daily. - BIOTIN, BULK, MISC - cholecalciferol, vitamin D3, (VITAMIN D3 ORAL) Take by mouth. - ascorbic acid (VITAMIN C ORAL) Take by mouth once daily. Meds Comments as of 07/16/2007: All medications have been reviewed July 16, 2007 Cher Andre Rn Problem List As Of Date 08/30/2024 Noted Resolved Abdominal pain, epigastric [R10.13] 04/02/2005 03/12/2015 Acute gastritis without mention of hemorrhage [*04/11/2005 05/07/2015 Adjustment disorder with depressed mood [F43.21]02/02/2007 09/15/2019 DECREASED MOVMT-ANTEPARTUM [O36.8190] 01/20/2008 05/12/2008 Carbuncle and furuncle of trunk [L02.239, L02.2*05/12/2008 03/12/2015 GERD (gastroesophageal reflux disease) [K21.9] 03/12/2009 Lumbago [M54.50] 07/26/2009 Breakthrough bleeding with IUD [N92.1, Z97.5] 03/04/2012 03/18/2013 IUD migration [T83.32XA] 03/04/2012 03/18/2013 Tobacco abuse [Z72.0] 04/13/2012 07/22/2017 Unspecified prophylactic or treatment measure [* 03/12/2015 Morbid obesity (HCC) [E66.01] 03/14/2016 Fibromyalgia [M79.7] 08/20/2016 Paroxysmal hemicrania, 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] 08/20/2016 Cervical spinal stenosis [M48.02] 02/26/2017 Foraminal stenosis of cervical region [M48.02] 02/26/2017 Diarrhea [R19.7] 01/25/2019 Cervicothoracic somatic dysfunction [M99.01] 01/25/2019 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*06/09/2019 11/21/2021 Panic disorder without agoraphobia [F41.0] 06/09/2019 11/21/2021 Anxiety disorder [F41.9] 09/15/2019 Encounter for long-term current use of medicati*09/23/2019 [place] (obstructive sleep apnea) [G47.33] 12/28/2019 Acute pain of left shoulder [M25.512] 04/23/2020 Hiatal hernia [K44.9] 11/09/2020 11/09/2020 Major depressive disorder, recurrent episode, m*11/21/2021 Occult blood positive stool [R19.5] 02/04/2024 Inflamed sebaceous cyst [L72.3] 07/25/2024 Encounter Status:Closed by ELLIE KWONG on 08/30/24 Normal [facility] Orthopedic Visit Reporton Orthopedic Visit Report [facility] [address] [place] [address] OFFICE VISIT Date of Service: 08/30/24 MR#: [id number] Acct: [id number] Name: FERNANDA HERNANDEZ Rep #: [id number] : 1980 Provider: Dr. Jermaine acosta MD Age/Sex: 44/F Location: [facility] Status: Signed with Addenda ADDENDUM by Melisa Watkins on 08/30/24 at 0956 Office Procedure Documentation entered by Melisa Watkins 08/30/24 09:56: Ortho Injections Injections Yes Knee Is this a patient provided medication?: No Office Meds Supartz FX 10 mg/mL intra-articular syringe Performing Provider: Jermaine Levy MD Performing Location: [facility] Administered by: Jermaine Levy MD on 08/30/24 09:56 Dose Route Admin Location Dispensed Lot Number Expiration Date NDC Man ufacturer 25 mg intra-articular left knee 2.5 mL [id number] 07/23/27 [address]-9 [employer] Date cc: * Signed Intake Vital Signs 07/18/24 18:47 Height 5 ft 3 in Intake Visit Reasons: LEFT KNEE Accompanied by: Self Allergies lansoprazole (From Prevacid) Allergy (Verified 08/30/24 09:32) Unknown rabeprazole (From Aciphex) Allergy (Verified 08/30/24 09:32) Hives Sulfa (Sulfonamide Antibiotics) Allergy (Verified 08/30/24 09:32) Unknown omeprazole (From Prilosec) Adverse Reaction (Verified 08/30/24 09:32) Other omeprazole magnesium (From Prilosec) Adverse Reaction (Verified 08/30/24 09:32) Other Medications ???Medication ???Instructions ???Recorded ???Confirmed ???Type norgestimate 0.25 mg-ethinyl 1 ea PO DAILY bcp 12/10/18 5 History estradiol 35 mcg tablet pantoprazole 40 mg tablet,delayed 80 tab PO QHS gerd 12/10/1808/30 History release venlafaxine 150 mg 150 mg PO QHS #30 caps 03/21/19 History capsule,extended release 24 hr lamotrigine 25 mg tablet 50 mg PO QHS 04/12/19 08/30/24 His tory diclofenac sodium 1 % topical gel 4 g topical TID #100 grams 08/30/24 Rx (Voltaren Arthritis Pain) benzonatate 200 mg capsule 200 mg PO TID PRN cough #20 caps 1 06/11/23 08/30/24 Rx ondansetron 4 mg disintegrating 4 mg PO TID PRN nausea and 5 08/30/24 Rx tablet vomiting #21 tabs prochlorperazine maleate 5 mg 5 mg PO TID PRN nausea and 5 08/30/24 Rx tablet (Compazine) vomiting 7 days #20 tabs PFSH Medical History Osteoarthritis of left knee Back pain Difficulty balancing Knee pain Chest pain Migraines Fatigue Stomach ulcer Shoulder pain SOB (shortness of breath) Arthritis Surgical History Gastric bypass status for obesity History of cholecystectomy History of tonsillectomy History of bilateral breast reduction surgery Social History Smoking Status: Former smoker HPI LEFT KNEE Details: This documentation accurately reflects the service provided and the decisions made by me, Dr. Jermaine Levy MD 08/30/24 0830. Part of today???s visit was documented by [ ], acting as scribe. FERNANDA HERNANDEZ is a 44 year old F here today for L knee supartz 05/27. Coding Level of Care Code Attention Gopi Diagnoses Osteoarthritis of left knee M17.12 Comment L knee supartz 05/27. Assessment and Plan Assessment and Plan (1) Osteoarthritis of left knee: Status: Acute Plan: FERNANDA HERNANDEZ is a 44 year old F here today for L knee supartz 05/27. FU 1 week. Left knee intra-articular supartz injection We discussed the pros and cons risks and benefits of going ahead with left knee intra-articular supartz injection. The risks include but are not limited to infection, pain, acute flare reaction, stiffness, bleeding, damage to surrounding structures, worsening arthritis or damage to the cartilage. The patient wished to proceed. The anterior aspect of the knee was prepped with chlorhexidine in the usual sterile fashion. Sterile no touch technique was employed. Used Gebauer spray per bottle instructions. 2cc supartz was injected into the intra-articular portion of the knee. The patient tolerated procedure well. Bandage placed. There is no complications. Standard post procedure care instructions were given. Red flag symptoms were discussed in which case to return to clinic immediately or go to the emergency department such as redness, swelling, fever, discharge, drainage, increase pain or other symptoms. Ortho Exam General General: Yes no acute distress Neurologic: Yes alert and Yes oriented x3 Psychologic: Yes reasonable and appropriate Left Knee Skin/Wound: Yes CDI, No ecchymosis, No erythema and No swelling 08/30/24 (more content not included)... Normal [facility] CNOVon 08-10-2024 CNOV Office Visit (GENSWS ) MODESTA HERNANDEZA Bobby ([id number]) 1980 F Date Time Provider Department 08/10/24 9:00 AM [facility] During your visit today, we recorded the following information about you: Temperature 97.8 degrees Ashlee Lee APRN.CNP 08/10/2024 9:33 AM Signed FOLLOW UP VISIT - SKIN LESION NAME: Fernanda Hernandez CLINIC NO.: [id number] DATE OF SERVICE: 08/04/2024 : 1980 Fernanda is a patient I am following for infected sebaceous cyst on her right shoulder. Dr. Calvillo performed an excision of this skin lesion on 08/02/24. She presented on 08/04/24 for concerns of residual cyst. I was able to remove some more cyst at that visit. Today she presents for wound check. She notes no s/s of infection. She denies any drainage or pain. VITALS: Temp: 36.6 ?C (97.8 ?F) Temp src: Temporal On examination, the incision is very minimally open with good granulation tissue, no evidence of residual cyst, area surrounding the wound has no signs of infection. Assessment IMPRESSION: Status post excision of right shoulder cyst PLAN: If the patient notes any problems or signs of wound infections, the patient should contact me immediately. Return to the office with any concerns or as needed. Diagnoses: (L72.3, L08.9) Infected sebaceous cyst (primary encounter diagnosis) Ashlee Lee APRN.AGENCY OWNER Allergies As of Date: 08/10/2024 Noted Allergy Reaction ACIPHEX (RABEPRAZOLE SODIUM) 07/09/2016 2 - Rash ENTEX PSE (PSEUDOEPHEDRINE-GUAIFE* Comments: INSOMNIA NEXIUM (ESOMEPRAZOLE MAGNESIUM) 07/11/2016 14 - Other: See Comments Comments: Made acid reflux worse PREVACID (LANSOPRAZOLE) 03/06/2005 Comments: HEADACHE PRILOSEC (OMEPRAZOLE) 03/06/2005 Comments: HEADACHE SULFA (SULFONAMIDE ANTIBIOTICS) 03/06/2005 2 - Rash WELLBUTRIN (BUPROPION HCL) 05/08/2014 8 - GI Upset Date Reviewed: 08/10/2024 Reviewed by: Keisha Dixon LPN - Fully Assessed Reason for Visit: Follow Up [171] Primary Visit Diagnosis:Infected sebaceous cyst [L72.3, L08.9] Prescriptions as of 08/10/2024 - meclizine (ANTIVERT) 25 mg tab Take 1 tablet by mouth four times a day as needed (vertigo). - ondansetron (ZOFRAN) 4 mg tablet Take 1 tablet by mouth every 8 hours as needed for nausea/vomiting. - baclofen 5 mg tablet - gabapentin (NEURONTIN) 100 mg capsule Take 1 capsule by mouth three times a day for 90 days. - fluticasone (FLONASE ALLERGY RELIEF) 50 mcg/actuation nasal spray Use 1 Procious in each nostril once daily. - tiZANidine (ZANAFLEX) 4 mg tablet Take 1 tablet by mouth two times a day as needed. - DULoxetine (CYMBALTA) 30 mg capsule Take 1 capsule by mouth once daily. - lamoTRIgine (LAMICTAL) 200 mg tablet Take 1 tablet by mouth daily at bedtime. - norgestimate 0.25 mg-ethinyl estradiol 35 mcg (TAMARA) 0.25-35 mg-mcg per tablet Take 1 tablet by mouth once daily. Take active pills only. No inactive week. - MAGNESIUM GLYCINATE ORAL Take 200 mg by mouth once daily. - Multivitamin capsule Take 1 capsule by mouth once daily. - BIOTIN, BULK, MISC - cholecalciferol, vitamin D3, (VITAMIN D3 ORAL) Take by mouth. - ascorbic acid (VITAMIN C ORAL) Take by mouth once daily. Meds Comments as of 07/16/2007: All medications have been reviewed July 16, 2007 Cher Andre Rn Problem List As Of Date 08/10/2024 Noted Resolved Abdominal pain, epigastric [R10.13] 04/02/2005 03/12/2015 Acute gastritis without mention of hemorrhage [*04/11/2005 05/07/2015 Adjustment disorder with depressed mood [F43.21]02/02/2007 09/15/2019 DECREASED MOVMT-ANTEPARTUM [O36.8190] 01/20/2008 05/12/2008 Carbuncle and furuncle of trunk [L02.239, L02.2*05/12/2008 03/12/2015 GERD (gastroesophageal reflux disease) [K21.9] 03/12/2009 Lumbago [M54.50] 07/26/2009 Breakthrough bleeding with IUD [N92.1, Z97.5] 03/04/2012 03/18/2013 IUD migration [T83.32XA] 03/04/2012 03/18/2013 Tobacco abuse [Z72.0] 04/13/2012 07/22/2017 Unspecified prophylactic or treatment measure [* 03/12/2015 Morbid obesity (HCC) [E66.01] 03/14/2016 Fibromyalgia [M79.7] 08/20/2016 Paroxysmal hemicrania, 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] 08/20/2016 Cervical spinal stenosis [M48.02] 02/26/2017 Foraminal stenosis of cervical region [M48.02] 02/26/2017 Diarrhea [R19.7] 01/25/2019 Cervicothoracic somatic dysfunction [M99.01] 01/25/2019 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 Normal [facility] CNPNon 08-09-2024 CNPN Telephone (FAMPWS) FERNANDA HERNANDEZ ([id number]) 1980 F Date Time Provider Department 08/09/24 [facility] During your visit today, we recorded the following information about you: Sophia Greco RN 08/09/2024 8:45 AM Signed [facility] with [facility] calls to report that patient is scheduled for therapy session tonight for vestibular therapy and asking for PT order to be faxed to them. Faxed PT order from yesterday to [phone] per request. Sophia Greco RN Allergies As of Date: 08/09/2024 Noted Allergy Reaction ACIPHEX (RABEPRAZOLE SODIUM) 07/09/2016 2 - Rash ENTEX PSE (PSEUDOEPHEDRINE-GUAIFE* Comments: INSOMNIA NEXIUM (ESOMEPRAZOLE MAGNESIUM) 07/11/2016 14 - Other: See Comments Comments: Made acid reflux worse PREVACID (LANSOPRAZOLE) 03/06/2005 Comments: HEADACHE PRILOSEC (OMEPRAZOLE) 03/06/2005 Comments: HEADACHE SULFA (SULFONAMIDE ANTIBIOTICS) 03/06/2005 2 - Rash WELLBUTRIN (BUPROPION HCL) 05/08/2014 8 - GI Upset Date Reviewed: 08/04/2024 Reviewed by: Keisha Dixon LPN - Fully Assessed Prescriptions as of 08/09/2024 - meclizine (ANTIVERT) 25 mg tab Take 1 tablet by mouth four times a day as needed (vertigo). - ondansetron (ZOFRAN) 4 mg tablet Take 1 tablet by mouth every 8 hours as needed for nausea/vomiting. - baclofen 5 mg tablet - gabapentin (NEURONTIN) 100 mg capsule Take 1 capsule by mouth three times a day for 90 days. - fluticasone (FLONASE ALLERGY RELIEF) 50 mcg/actuation nasal spray Use 1 Procious in each nostril once daily. - tiZANidine (ZANAFLEX) 4 mg tablet Take 1 tablet by mouth two times a day as needed. - DULoxetine (CYMBALTA) 30 mg capsule Take 1 capsule by mouth once daily. - lamoTRIgine (LAMICTAL) 200 mg tablet Take 1 tablet by mouth daily at bedtime. - norgestimate 0.25 mg-ethinyl estradiol 35 mcg (TAMARA) 0.25-35 mg-mcg per tablet Take 1 tablet by mouth once daily. Take active pills only. No inactive week. - MAGNESIUM GLYCINATE ORAL Take 200 mg by mouth once daily. - Multivitamin capsule Take 1 capsule by mouth once daily. - BIOTIN, BULK, MISC - cholecalciferol, vitamin D3, (VITAMIN D3 ORAL) Take by mouth. - ascorbic acid (VITAMIN C ORAL) Take by mouth once daily. Meds Comments as of 07/16/2007: All medications have been reviewed July 16, 2007 Cher Andre Rn Problem List As Of Date 08/09/2024 Noted Resolved Abdominal pain, epigastric [R10.13] 04/02/2005 03/12/2015 Acute gastritis without mention of hemorrhage [*04/11/2005 05/07/2015 Adjustment disorder with depressed mood [F43.21]02/02/2007 09/15/2019 DECREASED MOVMT-ANTEPARTUM [O36.8190] 01/20/2008 05/12/2008 Carbuncle and furuncle of trunk [L02.239, L02.2*05/12/2008 03/12/2015 GERD (gastroesophageal reflux disease) [K21.9] 03/12/2009 Lumbago [M54.50] 07/26/2009 Breakthrough bleeding with IUD [N92.1, Z97.5] 03/04/2012 03/18/2013 IUD migration [T83.32XA] 03/04/2012 03/18/2013 Tobacco abuse [Z72.0] 04/13/2012 07/22/2017 Unspecified prophylactic or treatment measure [* 03/12/2015 Morbid obesity (HCC) [E66.01] 03/14/2016 Fibromyalgia [M79.7] 08/20/2016 Paroxysmal hemicrania, 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] 08/20/2016 Cervical spinal stenosis [M48.02] 02/26/2017 Foraminal stenosis of cervical region [M48.02] 02/26/2017 Diarrhea [R19.7] 01/25/2019 Cervicothoracic somatic dysfunction [M99.01] 01/25/2019 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*06/09/2019 11/21/2021 Panic disorder without agoraphobia [F41.0] 06/09/2019 11/21/2021 Anxiety disorder [F41.9] 09/15/2019 Polypharmacy [Z79.899] 09/23/2019 CLIFTON (obstructive sleep apnea) [G47.33] 12/28/2019 Acute pain of left shoulder [M25.512] 04/23/2020 Hiatal hernia [K44.9] 11/09/2020 11/09/2020 Major depressive disorder, recurrent episode, m*11/21/2021 Occult blood positive stool [R19.5] 02/04/2024 Inflamed sebaceous cyst [L72.3] 07/25/2024 Encounter Status:Closed by SOPHIA GRECO on 08/09/24 Normal [facility] Inital Evaluation (1) - PTon 08-09-2024 Inital Evaluation (1[facility] [address] [place] [address] / REHABILITATION SERVICES INITIAL EVALUATION MR#: [id number] Acct: [id number] Name: FERNANDA HERNANDEZ Rep #: [id number] : 1980 44 From: Roc Grover DPT, OCS, CSCS Referring Dr.: FLORES Tee Status: R EG RCR Insurance: [facility] SELF PAY INSURANCE Patient's Visit Information Visit Information Visit Information: FERNANDA HERNANDEZ is a 44 year old F referred to Physical Therapy by FLOERS Tee with a diagnosis of BPPV. Date of Evaluation: 08/09/24 Physical Therapist: Roc Grover DPT, CHRISTIANO, CSCS Visit Plan Frequency: 2x /Week Duration: 4-6 Weeks Plan: 2x/week for 3-6 weeks... IE HEP: VOR H 60 seconds 6x/day, cervical retraction 12x 6x/day, appropriate posture and had position Treat with 1. MH and STM to pericervical MM and postural correction and pec strtching and cervical/postural strength to HEP. Manual cervical traction and PROM 2. Progression of VOR exercises via HEP when dizzyness improved( VOR x 2, or moving VOR, may adelfo head up and down habituation also. Subjective Subjective: I have vertigo, spinning off balance when turning head or looking down and feels unsteady. had it all day yesterday. It started a week and a half ago and skips a day every now and then. Massage and chiro did not help. Head feels goofy continually. Looking down then gets off balance until sits back down. 30 seconds. 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 Steps are extra careful. 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 Sleep is OK, not getting dizzy in bed. No active hobbies, no regular exercises. No falls, no neuropathy. Objective Objective: Walks slowly but I into PT, trasnfer bd and chair I, steps reciprocal requiring one rail. cervical aROM slow and hesitant especially up and dnown but WFL and without pain. UE AROM WFL, no sensory deficits to gross light touch, - B hallpike nataliia and - roll test. Oculomotor: - skew eye deviation, - ocular tilt, slight + L head thrust pursuit feels funny but able, saccades are normal VOR H 6/10 after 30 seconds for 45 seconds. VOR vertical not bad. Posture is forward head and protracted scapular but can correct with VC. Repeated flexion increased dizzyness, repeated retraction feels better. Balance/Special Test Scores Functional Gait Assessment Score: 22 % Disability: 26.6700 CATSIB Score (Max score 120 seconds): 90 Dizziness Score: 48 Goals Goal 1:: abolish dizzy feeling for 3 days Goal Time Frame: 4-6 Weeks Goal 2:: FGA score 28/30 Goal Time Frame: 4-6 Weeks Goal 3:: Appropriate cervical posture and scapular without cueing Goal Time Frame: 4-6 Weeks Goal 4:: I appropriate HEP to minimize future problems Goal Time Frame: 4-6 Weeks Goal 5:: DHI score 8 or less Goal Time Frame: 4-6 Weeks Goal 6:: Pt feel 95% back to normal Goal Time Frame: 4-6 Weeks Rehabilitation Potential Physical Therapy Diagnosis: dizzyness with had positions and neck stiffness making comfortable funciton a problem and effecting balance. Rehabilitation Potential: Fair Anticipated Interventions Patient/Client Instruction: Educate patient on: Condition and Plan of Care For the Purpose of:: To improve nutrient delivery to tissue, To improve muscle performance and motor function and To increase tolerance to activity/condition/position Therapeutic Exercise to Include: Strength training, Postural training, Flexibilty training, Passive ROM and Active ROM Comment: adaptation ex progression For the Purpose of:: To increase tolerance to activity/condition/position Manual Therapy Techniques to Include: Mobilization, Passive ROM and Soft tissue mobilization For the Purpose of:: To increase ROM, To improve nutrient delivery to tissue and To increase tolerance to activity/condition/position Text: Thank you for the opportunity to evaluate your patient. For Medicare and Medicare HMO plans, please review the plan of care and approve it. It will need to be FAXED BACK to us at [phone] for Medicare purposes. For Medicare only, by signing this I certify the plan of care. Please let me know if there are questions or concerns regarding this plan of care. Physician Signature: Date: 08/09/24 1751 CC: FLORES Fuentes [facility] Office Visit (FAMPWS ) DAVIDFERNANDA Rosales ([id number]) 1980 F Date Time Provider Department 08/08/24 10:00 AM BETTINA FUENTES [facility] During your visit today, we recorded the following information about you: Temperature Pulse Blood pressure Weight 97.6 degrees 77/minute 130/78 109.3 kg Bettina Fuentes, MEDICAL ONCOLOGY PHYSICIAN.AGENCY OWNER 08/08/2024 10:40 AM Signed This is a 44 year old female who presents today with: Patient presents with: Dizziness: 2 episodes within the last week HISTORY OF PRESENT ILLNESS: Fernanda Rosales David is a 44 year old female. Patient presents with: Dizziness: 2 episodes within the last week Dizziness with moving head, going down stairs, going from sitting to standing, even sitting still in chair. Dizzy since sickness 2 weeks intermittently Neck pain since sick Nausea- unsure if from dizziness or neck pain Had 2 massages Had cyst removed PAST MEDICAL HISTORY: PAST MEDICAL HISTORY Diagnosis Date Delayed emergence from general anesthesia Fibromyalgia 08/20/2016 GERD (gastroesophageal reflux disease) 03/12/2009 Hiatal hernia Hypoglycemia, unspecified Mental disorder anxiety and depression Migraine without aura 2001 Morbid obesity (HCC) Normal cardiac stress test 01/23/2012 PONV (postoperative nausea and vomiting) Sleep apnea Snoring Unspecified prophylactic or treatment measure PAST SURGICAL HISTORY Procedure Laterality Date COLONOSCOPY BX SINGLE/MULTI 02/04/2024 COLONOSCOPY W/BIOPSY SINGLE/MULTIPLE 12/14/2018 EGD 01/31/2020 ESOPHAGOGASTRODUODENOSCOPY TRANSORAL DIAGNOSTIC 04/11/2005 EGD ESOPHAGOGASTRODUODENOSCOPY TRANSORAL DIAGNOSTIC 03/06/2017 EGD GASTRIC BYPASS, TATI-EN-Y 11/08/2020 w/ Lap hiatal hernia repair LAP REPAIR, PARAESOPHAGEAL HIATAL HERNIA 11/08/2020 LAPAROSCOPY SURG CHOLECYSTECTOMY 03/21/2016 REDUCTION OF LARGE BREAST 2014 TONSILLECTOMY AND ADENOIDECTOMY AGE 11/> 2002 DR. EASTMAN ALLERGIES Aciphex [Rabeprazole Sodium], Entex Pse [Pseudoephedrine-Guaifenesi n], Nexium [Esomeprazole Magnesium], Prevacid [Lansoprazole], Prilosec [Omeprazole], Sulfa (Sulfonamide Antibiotics), and Wellbutrin [Bupropion Hcl] MEDICATIONS Current Outpatient Medications Medication Sig baclofen 5 mg tablet meclizine (ANTIVERT) 25 mg tab Take 1 tablet by mouth three times a day as needed (vertigo). gabapentin (NEURONTIN) 100 mg capsule Take 1 capsule by mouth three times a day for 90 days. fluticasone (FLONASE ALLERGY RELIEF) 50 mcg/actuation nasal spray Use 1 Procious in each nostril once daily. Promethazine-DM (PHENERGAN-DM) 6.25-15 mg/5 mL syrup Take 5 mL by mouth four times a day as needed (FOR POST NASAL DRIP AND COUGH). DULoxetine (CYMBALTA) 30 mg capsule Take 1 capsule by mouth once daily. lamoTRIgine (LAMICTAL) 200 mg tablet Take 1 tablet by mouth daily at bedtime. norgestimate 0.25 mg-ethinyl estradiol 35 mcg (TAMARA) 0.25-35 mg-mcg per tablet Take 1 tablet by mouth once daily. Take active pills only. No inactive week. MAGNESIUM GLYCINATE ORAL Take 200 mg by mouth once daily. Multivitamin capsule Take 1 capsule by mouth once daily. BIOTIN, BULK, MISC cholecalciferol, vitamin D3, (VITAMIN D3 ORAL) Take by mouth. ascorbic acid (VITAMIN C ORAL) Take by mouth once daily. tiZANidine (ZANAFLEX) 4 mg tablet Take 1 tablet by mouth two times a day as needed. No current facility-administered medications for this visit. FAMILY HISTORY Problem Relation Age of Onset Arthritis Mother Diabetes Mother Headache Father Lipids Father Headache Sister Diabetes Maternal Grandfather Stroke Maternal Grandfather Alcohol/Drug Paternal Grandmother ETOH Alcohol/Drug Paternal Grandfather ETOH Cancer Paternal Grandfather LUNG Alcohol/Drug Paternal Aunt ETOH Alcohol/Drug Paternal Uncle ETOH Cancer Paternal Uncle LUNG Social History Tobacco Use Smoking status: Former Current packs/day: 0.00 Average packs/day: 0.5 packs/day for 12.0 years (6.0 ttl pk-yrs) Types: Cigarettes Start date: 07/22/2001 Quit date: 07/22/2013 Years since quittin.0 Smokeless tobacco: Never Vaping Use Vaping status: Never Used Substance Use Topics Alcohol use: Not Currently Comment: Rarely Drug use: No BP sitting 136/80, standing 110/80 EXAM: BP 130/78 Pulse 77 Temp 36.4 ?C (97.6 ?F) (Left Tympanic) Wt 109.3 kg (241 lb) LMP 08/28/2020 (Approximate) SpO2 100% BMI 44.08 kg/m? PHYSICAL EXAM: Physical Exam Vitals reviewed. Constitutional: Appearance: Normal appearance. HENT: Head: Normocephalic. Right Ear: Tympanic membrane, ear canal and external ear normal. There is no impacted cerumen. Left Ear: Tympanic membrane, ear canal and external ear normal. There is no impacted cerumen. Nose: No congestion or rhinorrhea. Mouth/Throat: Pharynx: No oropharyngeal exudate or posterior oropharyngeal erythema. Eyes: Pupils: Pupil (more content not included)... Normal [facility] CNOVon 08-04-2024 CNOV Office Visit (GENSWS ) FERNANDA HERNANDEZ ([id number]) 1980 F Date Time Provider Department 08/04/24 2:00 PM ASHLEE LEE During your visit today, we recorded the following information about you: Temperature 98.4 degrees Ashlee Lee APRN.AGENCY OWNER 08/04/2024 2:50 PM Signed FOLLOW UP VISIT - SKIN LESION NAME: Fernanda Hernandez CLINIC NO.: [id number] DATE OF SERVICE: 08/04/2024 : 1980 REFERRING PHYSICIAN: Bettina Fuentes APRN.RACHID Michael is a patient I am following for infected sebaceous cyst on her right shoulder. Dr. Calvillo performed an excision of this skin lesion on 08/02/24. The patient notes today she had a nurse at her work change the dressing and they noted something white in the wound that looked like part of the cyst. She also noted increased pain after showering today. She is currently taking doxycycline- has about 2 days left. VITALS: Temperature 36.9 ?C (98.4 ?F), temperature source Temporal, last menstrual period 08/28/2020. On examination, the incision is opened, area surrounding the wound has no signs of infection, there is a slight red outline from where the previous bandage was. In the wound there is white cyst remnants. There is no swelling, warmth, or discharge/bleeding. I squeezed the rest of the cyst out without problem. I then debrided the wound to check for further cyst pieces. A bandage was placed over the wound. Fernanda tolerated the procedure well. Assessment IMPRESSION: Status post excision of right shoulder cyst PLAN: If the patient notes any problems or signs of wound infections, the patient should contact me immediately. She is already scheduled for a follow up on Thursday. She should continue to change the dressing daily or if it gets saturated. She should also continue the doxy. Diagnoses: (L72.3, L08.9) Infected sebaceous cyst (primary encounter diagnosis) Ashlee Lee APRN.CNP Allergies As of Date: 08/04/2024 Noted Allergy Reaction ACIPHEX (RABEPRAZOLE SODIUM) 07/09/2016 2 - Rash ENTEX PSE (PSEUDOEPHEDRINE-GUAIFE* Comments: INSOMNIA NEXIUM (ESOMEPRAZOLE MAGNESIUM) 07/11/2016 14 - Other: See Comments Comments: Made acid reflux worse PREVACID (LANSOPRAZOLE) 03/06/2005 Comments: HEADACHE PRILOSEC (OMEPRAZOLE) 03/06/2005 Comments: HEADACHE SULFA (SULFONAMIDE ANTIBIOTICS) 03/06/2005 2 - Rash WELLBUTRIN (BUPROPION HCL) 05/08/2014 8 - GI Upset Date Reviewed: 08/04/2024 Reviewed by: Keisha Dixon LPN - Fully Assessed Reason for Visit: Follow Up [171] Cmt: Wound care Primary Visit Diagnosis:Infected sebaceous cyst [L72.3, L08.9] Prescriptions as of 08/04/2024 - baclofen 5 mg tablet - doxycycline hyclate (VIBRAMYCIN) 100 mg capsule Take 1 capsule by mouth two times a day for 10 days. - meclizine (ANTIVERT) 25 mg tab Take 1 tablet by mouth three times a day as needed (vertigo). - gabapentin (NEURONTIN) 100 mg capsule Take 1 capsule by mouth three times a day for 90 days. - fluticasone (FLONASE ALLERGY RELIEF) 50 mcg/actuation nasal spray Use 1 Procious in each nostril once daily. - Promethazine-DM (PHENERGAN-DM) 6.25-15 mg/5 mL syrup Take 5 mL by mouth four times a day as needed (FOR POST NASAL DRIP AND COUGH). - tiZANidine (ZANAFLEX) 4 mg tablet Take 1 tablet by mouth two times a day as needed. - DULoxetine (CYMBALTA) 30 mg capsule Take 1 capsule by mouth once daily. - lamoTRIgine (LAMICTAL) 200 mg tablet Take 1 tablet by mouth daily at bedtime. - norgestimate 0.25 mg-ethinyl estradiol 35 mcg (TAMARA) 0.25-35 mg-mcg per tablet Take 1 tablet by mouth once daily. Take active pills only. No inactive week. - MAGNESIUM GLYCINATE ORAL Take 200 mg by mouth once daily. - Multivitamin capsule Take 1 capsule by mouth once daily. - BIOTIN, BULK, MISC - cholecalciferol, vitamin D3, (VITAMIN D3 ORAL) Take by mouth. - ascorbic acid (VITAMIN C ORAL) Take by mouth once daily. Meds Comments as of 07/16/2007: All medications have been reviewed /July 16, 2007 Cher Andre Rn Problem List As Of Date 08/04/2024 Noted Resolved Abdominal pain, epigastric [R10.13] 04/02/2005 03/12/2015 Acute gastritis without mention of hemorrhage [*04/11/2005 05/07/2015 Adjustment disorder with depressed mood [F43.21]02/02/2007 09/15/2019 DECREASED MOVMT-ANTEPARTUM [O36.8190] 01/20/2008 05/12/2008 Carbuncle and furuncle of trunk [L02.239, L02.2*05/12/2008 03/12/2015 GERD (gastroesophageal reflux disease) [K21.9] 03/12/2009 Lumbago [M54.50] 07/26/2009 Breakthrough bleeding with IUD [N92.1, Z97.5] 03/04/2012 03/18/2013 IUD migration [T83.32XA] 03/04/2012 03/18/2013 Tobacco abuse [Z72.0] 04/13/2012 07/22/2017 Unspecified prophylactic or treatment measure [* 03/12/2015 Morbid obesity (HCC) [E66.01] 03/14/2016 Fibromyalgia [M79.7] 08/20/2016 Paroxysmal hemicrania, 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 [facility] CNOVon 08-02-2024 CNOV Office Visit ([facility] ) FERNANDA HERNANDEZ ([id number]) 1980 F Date Time Provider Department 08/02/24 1:15 PM ASHISH CALVILLO [facility] During your visit today, we recorded the following information about you: Temperature Pulse Blood pressure Weight 97.7 degrees 92/minute 132/84 110.9 kg Height 1.575 m Danitza Jung, FREDRICK 08/02/2024 1:49 PM Signed UNIVERSAL PROTOCOL / SAFETY CHECKLIST Procedure to be Performed: Incision and Drainage of back Abscess. Sign In: A Moment of CARE was completed. Appropriate PPE (Personal Protective Equipment) worn by all providers involved with the procedure. Special equipment not required. Patient/Surrogate Stated/Verified: Patient name, Date of , Relevant allergies, and The intended procedure Time Out: Relevant labs, photos, and/or imaging studies have been reviewed. Intended patient and procedure match the source document(s) (e.g. consent, HANDP, associated studies [imaging, pathology]) are not applicable. Consent obtained and matches the intended procedure. Yes. Correct side/site has been marked and visible. Medications required for this procedure are verified. Fire risk assessed and is not applicable. Implants: are not applicable. Sign Out: Specimens are all correctly labeled and sent. All instruments, equipment, possible retained foreign bodies are accounted for. Yes. The post-procedure plan of care has been communicated to the patient or surrogate. Danitza Jung RN 08/02/2024 2:02 PM Signed The following instructions are important for you related to your office visit today with the [facility] General Surgeons. Instructions After I AND D Tylenol and Ibuprofen for pain. Take one every 6 hours. You are instructed to remove packing tomorrow and cover with bandage. If the dressing becomes soaked or had significant drainage, the dressing should be changed. If there is minor bleeding from this skin edge, you should hold pressure on the incision. If there is continued bleeding, you should contact our office immediately. Wash the wound with gentle soap and water. Do not scrub You may shower. The wound should not be immersed in a pool, bathtub, or even hot tub. If the wound shows signs of redness, inflammation, or purulent drainage, you should contact our office immediately. If you note any additional difficulties, questions, or concerns, you should contact our office immediately @ [phone] and ask to be transferred to the General Surgery department. Ashish Calvillo MD 08/04/2024 10:35 AM Signed Preoperative diagnosis: Infected sebaceous cyst of back Postoperative diagnosis: The same Procedure: Incision and drainage of infected sebaceous cyst of back (simple) Surgeon: Magda Procedure: Right upper back was sterilely prepped draped in the usual fashion. 1% lidocaine plain was injected. A 2 cm incision was made purulence was removed I irrigated out the wound removing all the cystic cavity that I could find wick was applied sterile dressings were applied and the patient tolerated the procedure well. Referring Provider: BETTINA FUENTES [[id number]] Allergies As of Date: 08/02/2024 Noted Allergy Reaction ACIPHEX (RABEPRAZOLE SODIUM) 07/09/2016 2 - Rash ENTEX PSE (PSEUDOEPHEDRINE-GUAIFE* Comments: INSOMNIA NEXIUM (ESOMEPRAZOLE MAGNESIUM) 07/11/2016 14 - Other: See Comments Comments: Made acid reflux worse PREVACID (LANSOPRAZOLE) 03/06/2005 Comments: HEADACHE PRILOSEC (OMEPRAZOLE) 03/06/2005 Comments: HEADACHE SULFA (SULFONAMIDE ANTIBIOTICS) 03/06/2005 2 - Rash WELLBUTRIN (BUPROPION HCL) 05/08/2014 8 - GI Upset Date Reviewed: 08/02/2024 Reviewed by: Danitza Jung RN - Fully Assessed Reason for Visit: Consult [173] Cmt: cyst Primary Visit Diagnosis:Infected sebaceous cyst [L72.3, L08.9] Other Visit Diagnosis:Epidermal inclusion cyst [L72.0] Order(s):CONSULT TO GENERAL SURGERY [3048] Order #: [id number]: 1 Prescriptions as of 08/04/2024 - baclofen 5 mg tablet - doxycycline hyclate (VIBRAMYCIN) 100 mg capsule Take 1 capsule by mouth two times a day for 10 days. - meclizine (ANTIVERT) 25 mg tab Take 1 tablet by mouth three times a day as needed (vertigo). - gabapentin (NEURONTIN) 100 mg capsule Take 1 capsule by mouth three times a day for 90 days. - fluticasone (FLONASE ALLERGY RELIEF) 50 mcg/actuation nasal spray Use 1 Procious in each nostril once daily. - Promethazine-DM (PHENERGAN-DM) 6.25-15 mg/5 mL syrup Take 5 mL by mouth four times a day as needed (FOR POST NASAL DRIP AND COUGH). - tiZANidine (ZANAFLEX) 4 mg tablet Take 1 tablet by mouth two times a day as needed. - DULoxetine (CYMBALTA) 30 mg capsule Take 1 capsule by mouth once daily. - lamoTRIgine (LAMICTAL) 200 mg tablet Take 1 tablet by mouth daily at bedtime. - norgestimate 0.25 mg-ethinyl estradiol 35 mcg (more content not included)... [facility] CNOVon 08-01-2024 CNOV Office Visit (FAMPWS ) FERNANDA HERNANDEZ ([id number]) 1980 F Date Time Provider Department 08/01/24 3:00 PM [facility] your visit today, we recorded the following information about you: Temperature Pulse Blood pressure Weight 98.8 degrees 75/minute 132/88 110.2 kg Bettina Fuentes, PETR.AGENCY OWNER 08/01/2024 3:19 PM Signed This is a 44 year old female who presents today with: Patient presents with: Derm Problem: cyst HISTORY OF PRESENT ILLNESS: Fernanda Hernandez is a 44 year old female. Patient presents with: Derm Problem: cyst Right lateral upper back with alarge grape sized area of hot, red, painful cyst with no actual head on it. No area of drainage. Taking doxycycline for URI- that is better PAST MEDICAL HISTORY: PAST MEDICAL HISTORY Diagnosis Date Delayed emergence from general anesthesia Fibromyalgia 08/20/2016 GERD (gastroesophageal reflux disease) 03/12/2009 Hiatal hernia Hypoglycemia, unspecified Mental disorder anxiety and depression Migraine without aura 2001 Morbid obesity (HCC) Normal cardiac stress test 01/23/2012 PONV (postoperative nausea and vomiting) Sleep apnea Snoring Unspecified prophylactic or treatment measure PAST SURGICAL HISTORY Procedure Laterality Date COLONOSCOPY BX SINGLE/MULTI 02/04/2024 COLONOSCOPY W/BIOPSY SINGLE/MULTIPLE 12/14/2018 EGD 01/31/2020 ESOPHAGOGASTRODUODENOSCOPY TRANSORAL DIAGNOSTIC 04/11/2005 EGD ESOPHAGOGASTRODUODENOSCOPY TRANSORAL DIAGNOSTIC 03/06/2017 EGD GASTRIC BYPASS, TATI-EN-Y 11/08/2020 w/ Lap hiatal hernia repair LAP REPAIR, PARAESOPHAGEAL HIATAL HERNIA 11/08/2020 LAPAROSCOPY SURG CHOLECYSTECTOMY 03/21/2016 REDUCTION OF LARGE BREAST 2014 TONSILLECTOMY AND ADENOIDECTOMY AGE 11/> 2002 DR. EASTMAN ALLERGIES Aciphex [Rabeprazole Sodium], Entex Pse [Pseudoephedrine-Guaifenesi n], Nexium [Esomeprazole Magnesium], Prevacid [Lansoprazole], Prilosec [Omeprazole], Sulfa (Sulfonamide Antibiotics), and Wellbutrin [Bupropion Hcl] MEDICATIONS Current Outpatient Medications Medication Sig baclofen 5 mg tablet doxycycline hyclate (VIBRAMYCIN) 100 mg capsule Take 1 capsule by mouth two times a day for 10 days. meclizine (ANTIVERT) 25 mg tab Take 1 tablet by mouth three times a day as needed (vertigo). gabapentin (NEURONTIN) 100 mg capsule Take 1 capsule by mouth three times a day for 90 days. fluticasone (FLONASE ALLERGY RELIEF) 50 mcg/actuation nasal spray Use 1 Procious in each nostril once daily. Promethazine-DM (PHENERGAN-DM) 6.25-15 mg/5 mL syrup Take 5 mL by mouth four times a day as needed (FOR POST NASAL DRIP AND COUGH). tiZANidine (ZANAFLEX) 4 mg tablet Take 1 tablet by mouth two times a day as needed. DULoxetine (CYMBALTA) 30 mg capsule Take 1 capsule by mouth once daily. lamoTRIgine (LAMICTAL) 200 mg tablet Take 1 tablet by mouth daily at bedtime. norgestimate 0.25 mg-ethinyl estradiol 35 mcg (TAMARA) 0.25-35 mg-mcg per tablet Take 1 tablet by mouth once daily. Take active pills only. No inactive week. MAGNESIUM GLYCINATE ORAL Take 200 mg by mouth once daily. Multivitamin capsule Take 1 capsule by mouth once daily. BIOTIN, BULK, MISC cholecalciferol, vitamin D3, (VITAMIN D3 ORAL) Take by mouth. ascorbic acid (VITAMIN C ORAL) Take by mouth. No current facility-administered medications for this visit. FAMILY HISTORY Problem Relation Age of Onset Arthritis Mother Diabetes Mother Headache Father Lipids Father Headache Sister Diabetes Maternal Grandfather Stroke Maternal Grandfather Alcohol/Drug Paternal Grandmother ETOH Alcohol/Drug Paternal Grandfather ETOH Cancer Paternal Grandfather LUNG Alcohol/Drug Paternal Aunt ETOH Alcohol/Drug Paternal Uncle ETOH Cancer Paternal Uncle LUNG Social History Tobacco Use Smoking status: Former Current packs/day: 0.00 Average packs/day: 0.5 packs/day for 12.0 years (6.0 ttl pk-yrs) Types: Cigarettes Start date: 07/22/2001 Quit date: 07/22/2013 Years since quittin.0 Smokeless tobacco: Never Vaping Use Vaping status: Never Used Substance Use Topics Alcohol use: Not Currently Comment: Rarely Drug use: No EXAM: BP 132/88 Pulse 75 Temp 37.1 ?C (98.8 ?F) (Left Tympanic) Wt 110.2 kg (243 lb) LMP 08/28/2020 (Approximate) SpO2 98% BMI 44.45 kg/m? PHYSICAL EXAM: Physical Exam Vitals reviewed. Constitutional: Appearance: Normal appearance. Skin: General: Skin is warm and dry. Comments: Right upper back with large grape sized lesion- protruding. Red, hot to touch, painful Needs IANDD Neurological: Mental Status: She is alert and oriented to person, place, and time. LABS: ASSESSMENT/PLAN: 1. Epidermal inclusion cyst - ICD9: 706.2, ICD10: L72.0 Acute exacerbation- needs IANDD - CONSULT TO GENERAL SURGERY - Continue doxycyline Discussed treatment plan and patient v (more content not included)... [facility] FERNANDA HERNANDEZ ([id number]) 1980 F Date Time Provider Department 08/01/24 LILLIE BAUTISTA [facility] During your visit today, we recorded the following information about you: Mary Austin LPN 08/01/2024 8:22 AM Signed Pt called to cancel her appointment d/t being sick. She did say that the antb did not help at all, still very inflammed. Still using warm compresses. States she does not want to drive all the way here for just a follow up if nothing will be done. Would like possibly drained and/or a different antb. Does say that she had gastric bypass surgery a couple years ago and some antb upset her stomach so is wondering if there is a different one that may not. Pharmacy in chart. CLAIRE Gtz Brittany, PA-C 08/01/2024 8:36 AM Signed If the cyst isn't improved with antibiotics and warm compresses, then she may require IANDD. She can re-schedule her appointment or go to a local [facility] care if she is not able to drive here. Recommend taking food with antibiotic which should help with upset stomach. Lillie Bautista PA-C August 01, 2024 8:35 AM Mary Austin LPN 08/01/2024 8:58 AM Signed Called patient back, let her know another antb has been called in. Also explained to her the instructions and let her know options. I informed her that if she decides to continue to come here, the process for cysts and surgery are weeks in which she would have to come. She states she was unaware the longer process. She said she will make some phone calls to possible providers in her area and let us know. Mary Austin LPN Allergies As of Date: 08/01/2024 Noted Allergy Reaction ACIPHEX (RABEPRAZOLE SODIUM) 07/09/2016 2 - Rash ENTEX PSE (PSEUDOEPHEDRINE-GUAIFE* Comments: INSOMNIA NEXIUM (ESOMEPRAZOLE MAGNESIUM) 07/11/2016 14 - Other: See Comments Comments: Made acid reflux worse PREVACID (LANSOPRAZOLE) 03/06/2005 Comments: HEADACHE PRILOSEC (OMEPRAZOLE) 03/06/2005 Comments: HEADACHE SULFA (SULFONAMIDE ANTIBIOTICS) 03/06/2005 2 - Rash WELLBUTRIN (BUPROPION HCL) 05/08/2014 8 - GI Upset Date Reviewed: 08/01/2024 Reviewed by: Lillie Bautista PA-C - Fully Assessed Reason for Visit: Patient Update [1234] Prescriptions as of 08/01/2024 - baclofen 5 mg tablet - doxycycline hyclate (VIBRAMYCIN) 100 mg capsule Take 1 capsule by mouth two times a day for 10 days. - meclizine (ANTIVERT) 25 mg tab Take 1 tablet by mouth three times a day as needed (vertigo). - gabapentin (NEURONTIN) 100 mg capsule Take 1 capsule by mouth three times a day for 90 days. - fluticasone (FLONASE ALLERGY RELIEF) 50 mcg/actuation nasal spray Use 1 Procious in each nostril once daily. - Promethazine-DM (PHENERGAN-DM) 6.25-15 mg/5 mL syrup Take 5 mL by mouth four times a day as needed (FOR POST NASAL DRIP AND COUGH). - tiZANidine (ZANAFLEX) 4 mg tablet Take 1 tablet by mouth two times a day as needed. - DULoxetine (CYMBALTA) 30 mg capsule Take 1 capsule by mouth once daily. - lamoTRIgine (LAMICTAL) 200 mg tablet Take 1 tablet by mouth daily at bedtime. - norgestimate 0.25 mg-ethinyl estradiol 35 mcg (TAMARA) 0.25-35 mg-mcg per tablet Take 1 tablet by mouth once daily. Take active pills only. No inactive week. - MAGNESIUM GLYCINATE ORAL Take 200 mg by mouth once daily. - Multivitamin capsule Take 1 capsule by mouth once daily. - BIOTIN, BULK, MISC - cholecalciferol, vitamin D3, (VITAMIN D3 ORAL) Take by mouth. - ascorbic acid (VITAMIN C ORAL) Take by mouth. Meds Comments as of 07/16/2007: All medications have been reviewed today/July 16, 2007 Cher Andre Rn Problem List As Of Date 08/01/2024 Noted Resolved Abdominal pain, epigastric [R10.13] 04/02/2005 03/12/2015 Acute gastritis without mention of hemorrhage [*04/11/2005 05/07/2015 Adjustment disorder with depressed mood [F43.21]02/02/2007 09/15/2019 DECREASED MOVMT-ANTEPARTUM [O36.8190] 01/20/2008 05/12/2008 Carbuncle and furuncle of trunk [L02.239, L02.2*05/12/2008 03/12/2015 GERD (gastroesophageal reflux disease) [K21.9] 03/12/2009 Lumbago [M54.50] 07/26/2009 Breakthrough bleeding with IUD [N92.1, Z97.5] 03/04/2012 03/18/2013 IUD migration [T83.32XA] 03/04/2012 03/18/2013 Tobacco abuse [Z72.0] 04/13/2012 07/22/2017 Unspecified prophylactic or treatment measure [* 03/12/2015 Morbid obesity (HCC) [E66.01] 03/14/2016 Fibromyalgia [M79.7] 08/20/2016 Paroxysmal hemicrania, 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 [facility] CNOVon 07-25-2024 [facility] Office Visit ([facility] ) FERNANDA HERNANDEZ ([id number]) 1980 F Date Time Provider Department 07/25/24 11:00 AM LILLIE BAUTISTA [facility] During your visit today, we recorded the following information about you: Weight Height 110.2 kg 1.575 m Lillie Bautista PA-C 07/25/2024 11:34 AM Signed [facility]LAST[facility] Fernanda Hernandez 1980 July 25, 2024 Office visit: Consultation History of Present Illness: Fernanda is a new patient self-referral for cyst of right posterior shoulder. It is been present for several years. A few days ago, a became pink, swollen and painful. Denies drainage. Denies fevers or chills. Denies prior treatment. Denies aggravating or alleviating factors. Denies personal or family history of skin cancer. PAST MEDICAL HISTORY Diagnosis Date Delayed emergence from general anesthesia Fibromyalgia 08/20/2016 GERD (gastroesophageal reflux disease) 03/12/2009 Hiatal hernia Hypoglycemia, unspecified Mental disorder anxiety and depression Migraine without aura 2001 Morbid obesity (HCC) Normal cardiac stress test 01/23/2012 PONV (postoperative nausea and vomiting) Sleep apnea Snoring Unspecified prophylactic or treatment measure PAST SURGICAL HISTORY Procedure Laterality Date COLONOSCOPY BX SINGLE/MULTI 02/04/2024 COLONOSCOPY W/BIOPSY SINGLE/MULTIPLE 12/14/2018 EGD 01/31/2020 ESOPHAGOGASTRODUODENOSCOPY TRANSORAL DIAGNOSTIC 04/11/2005 EGD ESOPHAGOGASTRODUODENOSCOPY TRANSORAL DIAGNOSTIC 03/06/2017 EGD GASTRIC BYPASS, TATI-EN-Y 11/08/2020 w/ Lap hiatal hernia repair LAP REPAIR, PARAESOPHAGEAL HIATAL HERNIA 11/08/2020 LAPAROSCOPY SURG CHOLECYSTECTOMY 03/21/2016 REDUCTION OF LARGE BREAST 2014 TONSILLECTOMY AND ADENOIDECTOMY AGE 11/> 2002 DR. EASTMAN FAMILY HISTORY Problem Relation Age of Onset Arthritis Mother Diabetes Mother Headache Father Lipids Father Headache Sister Diabetes Maternal Grandfather Stroke Maternal Grandfather Alcohol/Drug Paternal Grandmother ETOH Alcohol/Drug Paternal Grandfather ETOH Cancer Paternal Grandfather LUNG Alcohol/Drug Paternal Aunt ETOH Alcohol/Drug Paternal Uncle ETOH Cancer Paternal Uncle LUNG Social History Tobacco Use Smoking status: Former Current packs/day: 0.00 Average packs/day: 0.5 packs/day for 12.0 years (6.0 ttl pk-yrs) Types: Cigarettes Start date: 07/22/2001 Quit date: 07/22/2013 Years since quittin.0 Smokeless tobacco: Never Vaping Use Vaping status: Never Used Substance Use Topics Alcohol use: Not Currently Comment: Rarely Drug use: No Review of Systems: GENERAL: Negative for unintentional weight loss, malaise or fevers HEENT: Negative for frequent or significant headaches, No changes in hearing or vision, no nose bleeds or other nasal problems NECK: Negative for lumps, goiter, pain and significant neck swelling RESPIRATORY: Negative for cough, hemoptysis, wheezing, COPD, dyspnea or shortness of breath CARDIOVASCULAR: Negative for chest pain, leg swelling, hypertension, CHF or palpitations GI: Positive for history of GERD. Negative for constipation, nausea, vomiting, or diarrhea MUSCULOSKELETAL: Negative for back or joint pain SKIN: See HPI PSYCH: Negative for sleep disturbance, mood disorder and recent psychosocial stressors ENDOCRINE: Negative for diabetes, polyuria, polydipsia and goiter NEURO: Positive for history of fibromyalgia. No history of headaches, syncope, paralysis, seizures or tremors All other reviewed and negative other than HPI. There are no exam notes on file for this visit. Current Outpatient Medications Medication Sig Dispense Refill baclofen 5 mg tablet doxycycline hyclate (VIBRAMYCIN) 100 mg capsule Take 1 capsule by mouth two times a day for 10 days. 20 capsule 0 gabapentin (NEURONTIN) 100 mg capsule Take 1 capsule by mouth three times a day for 90 days. 90 capsule 2 fluticasone (FLONASE ALLERGY RELIEF) 50 mcg/actuation nasal spray Use 1 Procious in each nostril once daily. 11.1 mL 0 Promethazine-DM (PHENERGAN-DM) 6.25-15 mg/5 mL syrup Take 5 mL by mouth four times a day as needed (FOR POST NASAL DRIP AND COUGH). 180 mL 0 tiZANidine (ZANAFLEX) 4 mg tablet Take 1 tablet by mouth two times a day as needed. 60 tablet 0 DULoxetine (CYMBALTA) 30 mg capsule Take 1 capsule by mouth once daily. 90 capsule 0 lamoTRIgine (LAMICTAL) 200 mg tablet Take 1 tablet by mouth daily at bedtime. 90 tablet 0 norgestimate 0.25 mg-ethinyl estradiol 35 mcg (TAMARA) 0.25-35 mg-mcg per tablet Take 1 tablet by mouth once daily. Take active pills only. No inactive week. 112 tablet 3 MAGNESIUM GLYCINATE ORAL Take 200 mg by mouth once daily. meclizine (ANTIVERT) 25 mg tab Take 1 tablet by mouth three times a day as needed (vertigo). 30 tablet 1 Multivitamin capsule Take 1 capsule by mouth once daily. BIOTIN, BUL (more content not included)... Normal [facility] HISTORY PHYSICALon HISTORY PHYSICAL HNO ID: [id number] Author: LILLIE BAUTISTA PA-C Service: ? Author Type: Physician Brim Blocker Type: H&P Filed: 07/25/2024 11:34 Note Text: [facility] Fernanda Hernandez 1980 July 25, 2024 Office visit: Consultation History of Present Illness: Fernanda is a new patient self-referral for cyst of right posterior shoulder. It is been present for several years. A few days ago, a became pink, swollen and painful. Denies drainage. Denies fevers or chills. Denies prior treatment. Denies aggravating or alleviating factors. Denies personal or family history of skin cancer. PAST MEDICAL HISTORY Diagnosis Date Delayed emergence from general anesthesia Fibromyalgia 08/20/2016 GERD (gastroesophageal reflux disease) 03/12/2009 Hiatal hernia Hypoglycemia, unspecified Mental disorder anxiety and depression Migraine without aura 2001 Morbid obesity (HCC) Normal cardiac stress test 01/23/2012 PONV (postoperative nausea and vomiting) Sleep apnea Snoring Unspecified prophylactic or treatment measure PAST SURGICAL HISTORY Procedure Laterality Date COLONOSCOPY BX SINGLE/MULTI 02/04/2024 COLONOSCOPY W/BIOPSY SINGLE/MULTIPLE 12/14/2018 EGD 01/31/2020 ESOPHAGOGASTRODUODENOSCOPY TRANSORAL DIAGNOSTIC 04/11/2005 EGD ESOPHAGOGASTRODUODENOSCOPY TRANSORAL DIAGNOSTIC 03/06/2017 EGD GASTRIC BYPASS, TATI-EN-Y 11/08/2020 w/ Lap hiatal hernia repair LAP REPAIR, PARAESOPHAGEAL HIATAL HERNIA 11/08/2020 LAPAROSCOPY SURG CHOLECYSTECTOMY 03/21/2016 REDUCTION OF LARGE BREAST 2014 TONSILLECTOMY AND ADENOIDECTOMY AGE 11/> 2002 DR. EASTMAN FAMILY HISTORY Problem Relation Age of Onset Arthritis Mother Diabetes Mother Headache Father Lipids Father Headache Sister Diabetes Maternal Grandfather Stroke Maternal Grandfather Alcohol/Drug Paternal Grandmother ETOH Alcohol/Drug Paternal Grandfather ETOH Cancer Paternal Grandfather LUNG Alcohol/Drug Paternal Aunt ETOH Alcohol/Drug Paternal Uncle ETOH Cancer Paternal Uncle LUNG Social History Tobacco Use Smoking status: Former Current packs/day: 0.00 Average packs/day: 0.5 packs/day for 12.0 years (6.0 ttl pk-yrs) Types: Cigarettes Start date: 07/22/2001 Quit date: 07/22/2013 Years since quittin.0 Smokeless tobacco: Never Vaping Use Vaping status: Never Used Substance Use Topics Alcohol use: Not Currently Comment: Rarely Drug use: No Review of Systems: GENERAL: Negative for unintentional weight loss, malaise or fevers HEENT: Negative for frequent or significant headaches, No changes in hearing or vision, no nose bleeds or other nasal problems NECK: Negative for lumps, goiter, pain and significant neck swelling RESPIRATORY: Negative for cough, hemoptysis, wheezing, COPD, dyspnea or shortness of breath CARDIOVASCULAR: Negative for chest pain, leg swelling, hypertension, CHF or palpitations GI: Positive for history of GERD. Negative for constipation, nausea, vomiting, or diarrhea MUSCULOSKELETAL: Negative for back or joint pain SKIN: See HPI PSYCH: Negative for sleep disturbance, mood disorder and recent psychosocial stressors ENDOCRINE: Negative for diabetes, polyuria, polydipsia and goiter NEURO: Positive for history of fibromyalgia. No history of headaches, syncope, paralysis, seizures or tremors All other reviewed and negative other than HPI. There are no exam notes on file for this visit. Current Outpatient Medications Medication Sig Dispense Refill baclofen 5 mg tablet doxycycline hyclate (VIBRAMYCIN) 100 mg capsule Take 1 capsule by mouth two times a day for 10 days. 20 capsule 0 gabapentin (NEURONTIN) 100 mg capsule Take 1 capsule by mouth three times a day for 90 days. 90 capsule 2 fluticasone (FLONASE ALLERGY RELIEF) 50 mcg/actuation nasal spray Use 1 Procious in each nostril once daily. 11.1 mL 0 Promethazine-DM (PHENERGAN-DM) 6.25-15 mg/5 mL syrup Take 5 mL by mouth four times a day as needed (FOR POST NASAL DRIP AND COUGH). 180 mL 0 tiZANidine (ZANAFLEX) 4 mg tablet Take 1 tablet by mouth two times a day as needed. 60 tablet 0 DULoxetine (CYMBALTA) 30 mg capsule Take 1 capsule by mouth once daily. 90 capsule 0 lamoTRIgine (LAMICTAL) 200 mg tablet Take 1 tablet by mouth daily at bedtime. 90 tablet 0 norgestimate 0.25 mg-ethinyl estradiol 35 mcg (TAMARA) 0.25-35 mg-mcg per tablet Take 1 tablet by mouth once daily. Take active pills only. No inactive week. 112 tablet 3 MAGNESIUM GLYCINATE ORAL Take 200 mg by mouth once daily. meclizine (ANTIVERT) 25 mg tab Take 1 tablet by mouth three times a day as needed (vertigo). 30 tablet 1 Multivitamin capsule Take 1 capsule by mouth once daily. BIOTIN, BULK, MISC cholecalciferol, vitamin D3, (VITAMIN D3 ORAL) Take by mouth. ascorbic acid (VITAMIN C ORAL) Take by mouth. No current facility-administered medications for this visit. Aciphex [Rabeprazole Sodium], Entex Pse [Pseu (more content not included)... Normal [facility] CNOVon 07-21-2024 [facility] FERNANDA HERNANDEZ ([id number]) 1980 F Date Time Provider Department 07/21/24 11:20 AM BETT[facility] During your visit today, we recorded the following information about you: Temperature Pulse Blood pressure Weight 97 degrees 79/minute 122/88 108.9 kg Bettina Fuentes, MEDICAL ONCOLOGY PHYSICIAN.AGENCY OWNER 07/21/2024 12:04 PM Signed This is a 44 year old female who presents today with: Patient presents with: Follow Up: Employer wants FMLA forms filled out. Express care follow up. Still sick, lost taste and smell. Out of work since Thursday. HISTORY OF PRESENT ILLNESS: Fernanda Hernandez is a 44 year old female. Patient presents with: Follow Up: Employer wants FMLA forms filled out. Express care follow up. Still sick, lost taste and smell. Out of work since Thursday. Multiple missed days recently for the last 3 weeks. Wants FMLA papers filled out but employer hasn't given them too her. Wants intermittent leave for illness 06/25/24- neck pain and back pain. One episode of severe headache. Will extend for a year. Started last Thursday with a rash on arms, belly, legs, and chest. Fine red rash. Told it was allergic in nature. Sore throat off and on for a month Body aches. Sinus congestion- some Headache Fever since Thursday night Lost taste and smell Cough- started productive today Chest discomfort One day of diarrhea Poor appetite. PAST MEDICAL HISTORY: PAST MEDICAL HISTORY Diagnosis Date Delayed emergence from general anesthesia Fibromyalgia 08/20/2016 GERD (gastroesophageal reflux disease) 03/12/2009 Hiatal hernia Hypoglycemia, unspecified Mental disorder anxiety and depression Migraine without aura 2001 Morbid obesity (HCC) Normal cardiac stress test 01/23/2012 PONV (postoperative nausea and vomiting) Sleep apnea Snoring Unspecified prophylactic or treatment measure PAST SURGICAL HISTORY Procedure Laterality Date COLONOSCOPY BX SINGLE/MULTI 02/04/2024 COLONOSCOPY W/BIOPSY SINGLE/MULTIPLE 12/14/2018 EGD 01/31/2020 ESOPHAGOGASTRODUODENOSCOPY TRANSORAL DIAGNOSTIC 04/11/2005 EGD ESOPHAGOGASTRODUODENOSCOPY TRANSORAL DIAGNOSTIC 03/06/2017 EGD GASTRIC BYPASS, TATI-EN-Y 11/08/2020 w/ Lap hiatal hernia repair LAP REPAIR, PARAESOPHAGEAL HIATAL HERNIA 11/08/2020 LAPAROSCOPY SURG CHOLECYSTECTOMY 03/21/2016 REDUCTION OF LARGE BREAST 2014 TONSILLECTOMY AND ADENOIDECTOMY AGE 11/> 2002 DR. EASTMAN ALLERGIES Aciphex [Rabeprazole Sodium], Entex Pse [Pseudoephedrine-Guaifenesi n], Nexium [Esomeprazole Magnesium], Prevacid [Lansoprazole], Prilosec [Omeprazole], Sulfa (Sulfonamide Antibiotics), and Wellbutrin [Bupropion Hcl] MEDICATIONS Current Outpatient Medications Medication Sig predniSONE (DELTASONE) 10 mg tablet Take 4 tabs daily for 3 days, then 2 tabs daily for 3 days, then 1 tab daily for 3 days with food. DULoxetine (CYMBALTA) 30 mg capsule Take 1 capsule by mouth once daily. lamoTRIgine (LAMICTAL) 200 mg tablet Take 1 tablet by mouth daily at bedtime. norgestimate 0.25 mg-ethinyl estradiol 35 mcg (TAMARA) 0.25-35 mg-mcg per tablet Take 1 tablet by mouth once daily. Take active pills only. No inactive week. MAGNESIUM GLYCINATE ORAL Take 200 mg by mouth once daily. meclizine (ANTIVERT) 25 mg tab Take 1 tablet by mouth three times a day as needed (vertigo). ondansetron orally disintegrating (ZOFRAN ODT) 4 mg disintegrating tablet Take 1 tablet by mouth every 6 hours as needed for nausea/vomiting. (Patient not taking: Reported on 07/16/2024) gabapentin (NEURONTIN) 100 mg capsule Take 1 capsule by mouth three times a day for 90 days. Multivitamin capsule Take 1 capsule by mouth once daily. BIOTIN, BULK, MISC cholecalciferol, vitamin D3, (VITAMIN D3 ORAL) Take by mouth. ascorbic acid (VITAMIN C ORAL) Take by mouth. No current facility-administered medications for this visit. FAMILY HISTORY Problem Relation Age of Onset Arthritis Mother Diabetes Mother Headache Father Lipids Father Headache Sister Diabetes Maternal Grandfather Stroke Maternal Grandfather Alcohol/Drug Paternal Grandmother ETOH Alcohol/Drug Paternal Grandfather ETOH Cancer Paternal Grandfather LUNG Alcohol/Drug Paternal Aunt ETOH Alcohol/Drug Paternal Uncle ETOH Cancer Paternal Uncle LUNG Social History Tobacco Use Smoking status: Former Current packs/day: 0.00 Average packs/day: 0.5 packs/day for 12.0 years (6.0 ttl pk-yrs) Types: Cigarettes Start date: 07/22/2001 Quit date: 07/22/2013 Years since quittin.0 Smokeless tobacco: Never Vaping Use Vaping status: Never Used Substance Use Topics Alcohol use: Not Currently Comment: Rarely Drug use: No EXAM: BP 122/88 Pulse 79 Temp 36.1 ?C (97 ?F) (Left Tympanic) Wt 108.9 kg (240 lb) LMP 08/28/2020 (Approximate) SpO2 99% BMI 43.90 kg/m? PHYSICAL EXAM: Physical Exam V (more content not included)... Normal [facility] 12 Lead EKGon 07-18-2024 12 Lead EKG [facility] Cardiovascular Services [address] [place] [address] 12 Lead EKG 07/18/24 2102 MR#: [id number] Acct: [id number] Name: FERNANDA HERNANDEZ Rep #: [id number] : 1980 44 From: Cedric Stevens MD Attending Dr: Status: DEP ER Ordering Dr: Chago Balderas DO Date: 07/18/24 Location: ED Sex: F C Admitted: Test Reason : HEADACHE Blood Pressure : */* mmHG Vent. Rate : 97 BPM Atrial Rate : 97 BPM P-R Int : 152 ms QRS Dur : 92 ms QT Int : 364 ms P-R-T Axes : 56 26 21 degrees QTcB Int : 462 ms Normal sinus rhythm Normal ECG Confirmed by Cedric Stevens ([id number]), deputy editor in chief NAOMIE GRANGER [id number]) on 07/20/2024 8:05:49 AM Referred By: Confirmed By: Cedric Stevens 07/20/24804 Date Cedric Stevens MD CC: DERRICK FOLLOWER Bettina Fuentes; Dr. Chago Balderas DO Signed Normal [facility] Albumin to globulin ratioOrd ered By: Chago Balderas on 07-18-2024 Albumin/Globulin [Mass ratio] 0.8 {ratio} Low 0.9-2.4 [facility] Bilirubin Test strip Ql (U)O rdered By: Chago Balderas on 07-18-2024 Bilirubin Ql (U) Negative Negative [facility] Bilirubin, totalOrdered By: Chago Balderas on 07-18-2024 Bilirubin [Mass/Vol] 0.10 mg/dL Low 0.20-1.00 [facility] Comment on above: For patients on eltr ombopag therapy, use of Dimension Scotts TBIL is not recommended. Blood urea nitrogen (BUN)/cr eatinine ratioOrdered By: Chago Balderas on 07-18-2024 Urea nitrogen/Creatinine [Mass ratio] 12.2 mg/mg 10-20 [facility] Brain/Head without Contrasto n 07-18-2024 Brain/Head without Contrast [facility] Imaging Services [address] [place], [place] [id number] Brain/Head without Contrast MR#: [id number] Acct: [id number] Name: FERNANDA HERNANDEZ Rep #: [id number] : 1980 F 44 From: Sameer Gold PCP: Bettina Fuentes, DERRICK FOLLOWER Status: REG ER Study: Brain/Head without Contrast Date of Exam: 06/26 09/16 Exam# [id number] Ordering Dr: Chago Balderas DO EXAM: CT brain without IV contrast CLINICAL HISTORY: Headache COMPARISON: 11/01/2017 TECHNIQUE: Multiple contiguous axial images of the brain were obtained without the administration of intravenous contrast. Two-dimensional coronal and sagittal reformatted images were reconstructed. Low-dose imaging technique was utilized. FINDINGS: No evidence of acute intracranial hemorrhage, midline shift or mass effect. No definite CT evidence of acute territorial cortical infarction. No hydrocephalus. Cerebral volume is age-appropriate. Calvarium is intact. Paranasal sinuses and mastoid air cells are clear. CT/Brain/Head without Contrast IMPRESSION: No acute intracranial abnormality. Reading Location: [facility] CC: DERRICK FOLLOWER Bettina Fuentes; Dr. Chago Balderas, Career Development Coordinator/Teacher: Signed Normal [facility] CBC-Complete Blood Cnt No Di ffon 07-18-2024 Erythrocyte distribution width (RBC) [Ratio] 12.7 % Normal 11.6-14.6 [facility] Comment on above: Performed By: #### L 100.0500, L501.4020, L500.4050 #### [facility] Laboratory [address] [place], [address] Hematocrit (Bld) [Volume fraction] 38.5 % Normal 37-47 [facility] Comment on above: Performed By: #### L 100.0500, L501.4020, L500.4050 #### [facility] [address] [place], [address] Hemoglobin (Bld) [Mass/Vol] 12.8 g/dL Normal 12.0-15.0 [facility] Comment on above: Performed By: #### L 100.0500, L501.4020, L500.4050 #### [facility] [address] [place], [address] MCH (RBC) [Entitic mass] 30.0 pg Normal 27.0-32.0 [facility] Comment on above: Performed By: #### L 100.0500, L501.4020, L500.4050 #### [facility] Laboratory [address] [facility] [place], [address] MCHC (RBC) [Mass/Vol] 33.2 g/dL Normal 32-36 [facility] Comment on above: Performed By: #### L 100.0500, L501.4020, L500.4050 #### [facility] [address] [place], [address] MCV (RBC) [Entitic vol] 90.2 fL Normal 81-99 [facility] Comment on above: Performed By: #### L 100.0500, L501.4020, L500.4050 #### [facility] [address] [place], [address] Platelet mean volume (Bld) [Entitic vol] 11.0 fL Normal 6.2-12.0 [facility] Comment on above: Performed By: #### L 100.0500, L501.4020, L500.4050 #### [facility] [address] [place], [address] Platelets (Bld) [#/Vol] 292 10*3/uL Normal 150-450 [facility] Comment on above: Performed By: #### L 100.0500, L501.4020, L500.4050 #### [facility] [address] [place], [address] RBC (Bld) [#/Vol] 4.27 10*6/uL Normal 4.2-5.4 [facility] Comment on above: Performed By: #### L 100.0500, L501.4020, L500.4050 #### [facility] [address] [place], [address] RDW SD 42.2 fl Normal 35.1-43.9 [facility] Comment on above: Performed By: #### L 100.0500, L501.4020, L500.4050 #### [facility] [address] [place], [address] WBC (Bld) [#/Vol] 8.1 10*3/uL Normal 4.4-11.0 [facility] Comment on above: Performed By: #### L 100.0500, L501.4020, L500.4050 #### [facility] [address] [place], [address] Carbon dioxide measurementOr dered By: Chago Balderas on 07-18-2024 CO2 [Moles/Vol] 23.0 mmol/L 21.0-32.0 [facility] Chest 1 View (Portable)on Chest 1 View (Portable) [facility] Imaging Services [address] [facility] [place] [address] Chest 1 View (Portable) MR#: [id number] Acct: [id number] Name: FERNANDA HERNANDEZ Rep #: [id number] : 1980 F 44 From: Supa Peck i, DO PCP: FLORES Tee Status: REG ER Study: Chest 1 View (Portable) Date of Exam: 07/18/24 Exam# [id number] Ordering Dr: Chago Balderas DO PROCEDURE: Portable upright chest radiograph, one view REASON FOR EXAM: Shortness of breath TECHNIQUE: Single AP upright chest radiograph obtained. COMPARISON: 03/25/2024 FINDINGS: The cardiomediastinal silhouette is stable. Bones are intact. No focal airspace consolidation, pneumothorax, or pleural effusion. RAD/Chest 1 View (Portable) IMPRESSION: No acute cardiopulmonary process or significant change. If there are persistent symptoms or clinical concern, short-term follow-up CT evaluation may be considered. Reading Location: [facility] CC: DERRICK FOLLOWER Bettina Fuentes; Dr. Chago Balderas DO Career Development Coordinator/Teacher: Signed Normal [facility] Chloride measurementOrdered By: Chago Balderas on 07-18-2024 Chloride [Moles/Vol] 106 mmol/L 98-107 [facility] Comprehensive Metabolic Prof ilon 07-18-2024 Albumin [Mass/Vol] 3.1 g/dL Low 3.2-5.0 [facility] Comment on above: Order Comment: 'TROP ' Serial specimen #1, #2 or #3: 1 Performed By: #### L 100.0500, L501.4020, L500.4050 #### [facility] Laboratory [address] [place], [address] Albumin/Globulin [Mass ratio] 0.8 {ratio} Low 0.9-2.4 [facility] Comment on above: Order Comment: 'TROP ' Serial specimen #1, #2 or #3: 1 Performed By: #### L 100.0500, L501.4020, L500.4050 #### [facility] [address] [place], [address] ALK P 84 U/L Normal 45-117 [facility] Comment on above: Order Comment: 'TROP ' Serial specimen #1, #2 or #3: 1 Performed By: #### L 100.0500, L501.4020, L500.4050 #### [facility] [address] [place], [address] ALT [Catalytic activity/Vol] 29 U/L Normal 13-56 [facility] Comment on above: Order Comment: 'TROP ' Serial specimen #1, #2 or #3: 1 Performed By: #### L 100.0500, L501.4020, L500.4050 #### [facility] [address] [place], [address] AST [Catalytic activity/Vol] 31 U/L Normal 15-37 [facility] Comment on above: Order Comment: 'TROP ' Serial specimen #1, #2 or #3: 1 Performed By: #### L 100.0500, L501.4020, L500.4050 #### [facility] [address] [place], [address] Bilirubin [Mass/Vol] 0.10 mg/dL Low 0.20-1.00 [facility] Comment on above: Order Comment: 'TROP ' Serial specimen #1, #2 or #3: 1 Result Comment: For patients on eltrombopag therapy, use of Dimension Scotts TBIL is not recommended. Performed By: #### L 100.0500, L501.4020, L500.4050 #### [facility] [address] [place], [address] BUN/CRE 12.2 RATIO Normal 10-20 [facility] Comment on above: Order Comment: 'TROP ' Serial specimen #1, #2 or #3: 1 Performed By: #### L 100.0500, L501.4020, L500.4050 #### [facility] [address] [place], [address] CA,Total 8.6 mg/dL Normal 8.5-10.1 [facility] Comment on above: Order Comment: 'TROP ' Serial specimen #1, #2 or #3: 1 Performed By: #### L 100.0500, L501.4020, L500.4050 #### [facility] [address] [place], [address] Chloride [Moles/Vol] 106 mmol/L Normal 98-107 [facility] Comment on above: Order Comment: 'TROP ' Serial specimen #1, #2 or #3: 1 Performed By: #### L 100.0500, L501.4020, L500.4050 #### [facility] [address] [place], [address] CO2 [Moles/Vol] 23.0 mmol/L Normal 21.0-32.0 [facility] Comment on above: Order Comment: 'TROP ' Serial specimen #1, #2 or #3: 1 Performed By: #### L 100.0500, L501.4020, L500.4050 #### [facility] [address] [place], [address] Creatinine [Mass/Vol] 0.66 mg/dL Normal 0.55-1.02 [facility] Comment on above: Order Comment: 'TROP ' Serial specimen #1, #2 or #3: 1 Result Comment: The validity of the calculated GFR GFRAA in patients over 70 years has not been determined. Clinical correlation is essential. Performed By: #### L 100.0500, L501.4020, L500.4050 #### [facility] [address] [place], [address] ECRCL 128.44 ml/min Normal [facility] Comment on above: Order Comment: 'TROP ' Serial specimen #1, #2 or #3: 1 Performed By: #### L 100.0500, L501.4020, L500.4050 #### [facility] [address] [place], [address] EST GFR - AA 125 mL/min Normal >60 [facility] Comment on above: Order Comment: 'TROP ' Serial specimen #1, #2 or #3: 1 Result Comment: Afri can Turkish GFR Calc Performed By: #### L 100.0500, L501.4020, L500.4050 #### [facility] [address] [place], [address] GAP 10 Normal 5-15 [facility] Comment on above: Order Comment: 'TROP ' Serial specimen #1, #2 or #3: 1 Performed By: #### L 100.0500, L501.4020, L500.4050 #### [facility] [address] [place], [address] GFR/1.73 sq M.predicted among non-blacks MDRD (S/P/Bld) [Vol rate/Area] 103 mL/min/{1.73_m2} Normal >60 [facility] Comment on above: Order Comment: 'TROP ' Serial specimen #1, #2 or #3: 1 Result Comment: Non- GFR Calc Performed By: #### L 100.0500, L501.4020, L500.4050 #### [facility] [address] [place], [address] Globulin (S) [Mass/Vol] 4.1 g/dL Normal 2.2-4.2 [facility] Comment on above: Order Comment: 'TROP ' Serial specimen #1, #2 or #3: 1 Performed By: #### L 100.0500, L501.4020, L500.4050 #### [facility] [address] [place], [address] Glucose [Mass/Vol] 96 mg/dL Normal 74-106 [facility] Comment on above: Order Comment: 'TROP ' Serial specimen #1, #2 or #3: 1 Performed By: #### L 100.0500, L501.4020, L500.4050 #### [facility] [address] [place], [address] Potassium [Moles/Vol] 3.5 mmol/L Normal 3.5-5.1 [facility] Comment on above: Order Comment: 'TROP ' Serial specimen #1, #2 or #3: 1 Performed By: #### L 100.0500, L501.4020, L500.4050 #### [facility] [address] [place], [address] Sodium [Moles/Vol] 139 mmol/L Normal 136-145 [facility] Comment on above: Order Comment: 'TROP ' Serial specimen #1, #2 or #3: 1 Performed By: #### L 100.0500, L501.4020, L500.4050 #### [facility] [address] [place], [address] T PROT 7.2 g/dL Normal 6.4-8.2 [facility] Comment on above: Order Comment: 'TROP ' Serial specimen #1, #2 or #3: 1 Performed By: #### L 100.0500, L501.4020, L500.4050 #### [facility] [address] [place], [address] Urea nitrogen [Mass/Vol] 8 mg/dL Normal 7-18 [facility] Comment on above: Order Comment: 'TROP ' Serial specimen #1, #2 or #3: 1 Performed By: #### L 100.0500, L501.4020, L500.4050 #### [facility] [address] [place], [address] Emergency Department Summary on 07-18-2024 Emergency Department Summary [facility] Medical Records Department [address] [place] [address] Emergency Department Summary 07/18/24 MR#: [id number] Acct: [id number] Name: FERNANDA HERNANDZE Rep #: [id number] : 1980 44 From: Chago Balderas DO PCP: Bettina Fuentes, DERRICK FOLLOWER Status:REG ER Location: ED HPI History of Present Illness Chief Complaint: [facility] Medical History Osteoarthritis of left knee Back pain Difficulty balancing Knee pain Chest pain Migraines Fatigue Stomach ulcer Shoulder pain SOB (shortness of breath) Arthritis Home Medications ???Medication ???Instructions ???Recorded ???Last Taken ???Type norgestimate 0.25 mg-ethinyl 1 ea PO DAILY bcp 12/10/18 Unknown History estradiol 35 mcg tablet pantoprazole 40 mg tablet,delayed 80 tab PO QHS gerd 12/10/1801/30 History release venlafaxine 150 mg 150 mg PO QHS #30 caps 03/21/19 Un known History capsule,extended release 24 hr lamotrigine 25 mg tablet 50 mg PO QHS 04/12/19 Unknown Hist ory diclofenac sodium 1 % topical gel 4 g topical TID #100 grams Unknown Rx (Voltaren Arthritis Pain) benzonatate 200 mg capsule 200 mg PO TID PRN cough #20 caps 1 06/11/23 Unknown Rx methylprednisolone 4 mg tablets in See Rx Instructions PO PER PKG D IR 04/11/24 Unknown Rx a dose pack (Medrol (Javan)) #21 tabs methocarbamol 500 mg tablet 1,000 mg (2 x 500 mg) PO 4X/DAY Unknown Rx PRN Muscle pain/spasm #56 tabs ondansetron 4 mg disintegrating 4 mg PO TID PRN nausea and 5 Unknown Rx tablet vomiting #21 tabs oxycodone-acetaminophen 5 mg-325 1 tab PO Q6H PRN pain 5 days #20 0 06/28/24 Unknown Rx mg tablet (Percocet) tabs prednisone 20 mg tablet 40 mg (2 x 20 mg) PO DAILY 5 days 06/28/24 Unknown Rx #10 tabs amoxicillin 875 mg-potassium 1 tab PO BID #20 tabs 07/18/24 Unk nown Rx clavulanate 125 mg tablet prochlorperazine maleate 5 mg 5 mg PO TID PRN nausea and 5 Unknown Rx tablet (Compazine) vomiting 7 days #20 tabs Allergy/AdvReac Type Severity Reaction Status Date / Time lansoprazole (From Prevacid) Allergy Unknown Verified 07/18/24 18:48 rabeprazole (From Aciphex) Allergy Hives Verified 07/18/24 18:48 Sulfa (Sulfonamide Allergy Unknown Verified 07/18/24 18:48 Antibiotics) omeprazole (From Prilosec) AdvReac Other Verified 07/18/24 18:48 omeprazole magnesium (From AdvReac Other Verified 07/18/24 18:48 Prilosec) Surgical History Gastric bypass status for obesity History of cholecystectomy History of tonsillectomy History of bilateral breast reduction surgery Social History Smoking Status: Former smoker EXAM Physical Exam Const Vital Signs: 07/18/24 18:47 07/18/24 21:25 07/18/24 22:00 Temperature 99.4 F H Temperature Source Oral Pulse Rate 116 H 77 Respiratory Rate 18 16 Respiratory Pattern Normal Blood Pressure 157/100 H 148/92 H Blood Pressure Mean 119 110 Pulse Ox 100 100 Oxygen Delivery Method Room Air [facility] Narrative Medical decision making narrative: HISTORY OF PRESENT ILLNESS: 44-year-old female presents with concern for head. States she has got body aches, neck pain and fever. She does she has had symptoms for the past several weeks. Off and on. She notes her last week she has had the symptoms as mentioned above. She notes a generalized rash that started on Thursday (07/13/2024). States she also was recent started on amoxicillin for sinus infection. She notes she went into clinic several days ago had negative COVID flu RSV testing REVIEW OF SYSTEMS: Pertinent positives: Headache, fever, body aches, neck pain, rash, chest pain Pertinent negatives: Vomiting, abdominal pain, shortness of breath, cough, urinary symptoms PHYSICAL EXAM: Nursing triage notes reviewed, Vital signs reviewed Constitutional: please see mdm HENT: MMM Eyes: Pupils equal round and reactive to light, Extraocular muscles intact Neck: No stridor, no JVD, full neck ROM Lungs: Clear to auscultation, No wheezing or rales. No increased work of breathing, no conversational dyspnea, no accessory muscle use, no nasal flaring. No respiratory distress noted Heart: Regular rate and rhythm, No murmurs, No rubs and No gallops, 2+ distal pulses (radial, femoral, posterior tibial) in all extremities Abdomen: Soft, there is no tenderness, rigidity, rebound or guarding, no obvious peritoneal signs, no palpable pulsatile abdominal masses, no auscultated abdominal bruit : No CVAT Extremities: No edema Neuro: Alert and oriented x3, neuro exam at baseline, cranial nerves II through XII are intact. (more content not included)... Normal [facility] Epithelial cells.squamous LM Ql (Urine sed)Ordered By: Chago Balderas on 07-18-2024 Epithelial cells.squamous LM.HPF (Urine sed) [#/Area] 0 /[HPF] 5-10 [facility] Erythrocyte distribution wid th ratioOrdered By: Chago Balderas on 07-18-2024 Erythrocyte distribution width (RBC) [Ratio] 12.7 % 11.6-14.6 [facility] Erythrocyte distribution wid th standard deviationOrdered By: Chago Balderas on 07-18-2024 Erythrocyte distribution width (RBC) [Entitic vol] 42.2 fL 35.1-43.9 [facility] Erythrocyte distribution width (RBC) [Ratio] 42.2 fl 35.1-43.9 [facility] Estimated glomerular filtrat ion rate (GFR) AmericanOrdered By: Chago Balderas on 07-18-2024 Estimated GFR (MDRD) Amer 125 mL/min >60 [facility] Comment on above: GFR Calc Estimation of creatinine anh aranceOrdered By: Chago Balderas on 07-18-2024 Estimated Creatinine Clearance Calc 128.44 ml/min [facility] Glomerular filtration rate ( GFR) estimationOrdered By: Chago Balderas on 07-18-2024 Estimated GFR (MDRD) Non-Af Amer 103 mL/min >60 [facility] Comment on above: Non- GFR Calc GFR/1.73 sq M.predicted among non-blacks MDRD (S/P/Bld) [Vol rate/Area] 103 mL/min/{1.73_m2} >60 [facility] Comment on above: Non- GFR Calc Glucose Ql (U)Ordered By: Jhoan Balderas on 07-18-2024 Urine Glucose (UA) Normal mg/dl Normal [facility] Glucose measurementOrdered B y: Chago Balderas on 07-18-2024 Glucose [Mass/Vol] 96 mg/dL 74-106 [facility] Hematocrit Auto (Bld) [Volum e fraction]Ordered By: Chago Balderas on 07-18-2024 Hematocrit (Bld) [Volume fraction] 38.5 % 37-47 [facility] Hemoglobin measurementOrdere d By: Chago Balderas on 07-18-2024 Hemoglobin (Bld) [Mass/Vol] 12.8 g/dL 12.0-15.0 [facility] Ketones Test strip Ql (U)Ord ered By: Chago Balderas on 07-18-2024 Ketones Ql (U) 50 mg/dl High Negative [facility] L501.4020on 07-18-2024 TROPONIN-I HS 3 pg/mL Normal 3.0-54.0 [facility] Comment on above: Order Comment: 'TROP ' Serial specimen #1, #2 or #3: 1 Result Comment: Sanjeev pruett Note: New Test Units and Gender Specific Reference Ranges. For more information see Policy Stat Procedure [facility] High Sensitivity Troponin (TNIH) and attachments. Performed By: #### L 100.0500, L501.4020, L500.4050 #### [facility] Laboratory [address] [place], [address] Laboratory - Chemistry and C hemistry - challengeOrdered By: Chago Balderas on 07-18-2024 AST [Catalytic activity/Vol] 31 U/L 15-37 [facility] M100.677on 07-18-2024 M100.677 Negative Normal [facility] Comment on above: Performed By: #### L 400.7600, M100.677, L400.0001 #### [facility] [address] [place], [place], [address] MCV (mean corpuscular volume ) determinationOrdered By: Chago Balderas on 07-18-2024 MCV (RBC) [Entitic vol] 90.2 fL 81-99 [facility] Mean corpuscular hemoglobin (MCH) determinationOrdered By: Chago Balderas on 07-18-2024 MCH (RBC) [Entitic mass] 30.0 pg 27.0-32.0 [facility] Mean corpuscular hemoglobin concentration (MCHC) determinationOrdered By: Chago Balderas on 07-18-2024 MCHC (RBC) [Mass/Vol] 33.2 g/dL 32-36 [facility] Mean platelet volume determi nationOrdered By: Chago Balderas on 07-18-2024 Platelet mean volume (Bld) [Entitic vol] 11.0 fL 6.2-12.0 [facility] Microscopic analysis of urin e for red blood cells (RBC)Ordered By: Chago Balderas on 07-18-2024 Microscopic analysis of urine for red blood cells (RBC) 0 SEEN /hpf 0-5 [facility] Urine RBC 0 SEEN /hpf 0-5 [facility] Mucus LM Ql (Urine sed)Order ed By: Chago Balderas on 07-18-2024 Mucus Ql (Urine sed) 1+ /hpf [facility] Nitrite Test strip Ql (U)Ord ered By: Chago Balderas on 07-18-2024 Nitrite Ql (U) Negative Negative [facility] No Panel InformationOrdered By: Eddie Cedeno on 07-18-2024 Influenza Types A,B Rapid (Clinic) Negative [facility] POC SARS CoV-2 Antigen Negative [facility] Platelet countOrdered By: Jhoan Balderas on 07-18-2024 Platelets (Bld) [#/Vol] 292 10*3/uL 150-450 [facility] Potassium measurementOrdered By: Chago Balderas on 07-18-2024 Potassium [Moles/Vol] 3.5 mmol/L 3.5-5.1 [facility] ,Urineon 07-18-2024 Beta HCG ( test) Ql (U) Negative Normal [facility] Comment on above: Result Comment: Very dilute urine specimens, as indicated by a low specific gravity, may not contain sales account representative levels of hCG. If is still suspected, a first morning urine specimen should be collected 48 hours later and tested. Performed By: #### L 400.7600, M100.677, L400.0001 #### [facility] [address] [place], [place], [id number] Protein Test strip Ql (U)Ord ered By: Chago Balderas on 07-18-2024 Protein Ql (U) 15 mg/dl High Negative [facility] RBC Auto (Bld) [#/Vol]Ordere d By: Chago Balderas on 07-18-2024 RBC (Bld) [#/Vol] 4.27 10*6/uL 4.2-5.4 [facility] S. pyogenes rRNA Probe Ql (T hroat)Ordered By: Chago Balderas on 07-18-2024 Streptococcus pyogenes (PCR) [facility] Serum anion gap measurementO rdered By: Chago Balderas on 07-18-2024 Anion gap [Moles/Vol] 10 mmol/L 5-15 [facility] Serum globulin measurementOr dered By: Chago Balderas on 07-18-2024 Globulin (S) [Mass/Vol] 4.1 g/dL 2.2-4.2 [facility] Serum or plasma alanine pappas otransferase (ALT) measurementOrdered By: Chago Balderas on 07-18-2024 ALT [Catalytic activity/Vol] 29 U/L 13-56 [facility] Serum or plasma albumin ta urement (mass/volume)Ordered By: Chago Balderas on 07-18-2024 Albumin [Mass/Vol] 3.1 g/dL Low 3.2-5.0 [facility] Serum or plasma alkaline elisha sphatase measurementOrdered By: Chago Balderas on 07-18-2024 ALP [Catalytic activity/Vol] 84 U/L 45-117 [facility] Serum or plasma calcium ta urement (mass/volume)Ordered By: Chago Balderas on 07-18-2024 Calcium [Mass/Vol] 8.6 mg/dL 8.5-10.1 [facility] Serum or plasma creatinine m easurement (mass/volume)Ordered By: Chago Balderas on 07-18-2024 Creatinine [Mass/Vol] 0.66 mg/dL 0.55-1.02 [facility] Comment on above: The validity of the calculated GFR & GFRAA in patients over 70 years has not been determined. Clinical correlation is essential. Serum or plasma urea nitroge n measurement (mass/volume)Ordered By: Chago Balderas on 07-18-2024 Urea nitrogen [Mass/Vol] 8 mg/dL 7-18 [facility] Sodium levelOrdered By: Galindo Balderas on 07-18-2024 Sodium [Moles/Vol] 139 mmol/L 136-145 [facility] Squamous epithelial cells de tection in urine sediment by light microscopyOrdered By: Chago Balderas on 07-18-2024 Epithelial cells.squamous LM Ql (Urine sed) 0-5 SEEN /hpf 5-10 [facility] Streptococcus pyogenes rRNA detection in throat by DNA probeOrdered By: Chago Balderas on 07-18-2024 S. pyogenes rRNA Probe Ql (Throat) [facility] Total proteinOrdered By: Fred Balderas on 07-18-2024 Protein [Mass/Vol] 7.2 g/dL 6.4-8.2 [facility] Troponin IOrdered By: Chago Balderas on 07-18-2024 Troponin I 3 pg/mL 3.0-54.0 [facility] Comment on above: Please Note: New Karol t Units and Gender Specific Reference Ranges. For more information see Policy Stat Procedure [facility] High Sensitivity Troponin (TNIH) and attachments. Troponin I High Sensitivity 3 pg/mL 3.0-54.0 [facility] Comment on above: Please Note: New Karol t Units and Gender Specific Reference Ranges. For more information see Policy Stat Procedure [facility] High Sensitivity Troponin (TNIH) and attachments. Urgent Care Visit Reporton 0 07-18-2024 Urgent Care Visit Report [facility] [address] , [address] [place] [address] OFFICE VISIT Date of Service: 07/18/24 MR#: [id number] Acct: [id number] Name: FERNANDA HERNANDEZ Rep #: [id number] : 1980 Provider: OG Nuno Age/Sex: 44/F Location: [facility] Status: Signed Intake Vital Signs 06/28/24 05:39 07/18/24 07:49 Height 5 ft 3 in BP 118/68 Blood Pressure Location Rt brachial Position Sitting Respiration 12 Pulse 85 Pulse Source NIBP Temp 98.5 F Temp Source Oral Pulse Oximetry (%) 98 Oxygen Delivery Method room air Intake Visit Reasons: CHEST COLD, SORE THROAT Chief Complaint: ST, PEREZ, ear pain, congest, fatigue Allergies lansoprazole (From Prevacid) Allergy (Verified 06/27/24 07:08) Unknown rabeprazole (From Aciphex) Allergy (Verified 06/27/24 07:08) Hives Sulfa (Sulfonamide Antibiotics) Allergy (Verified 06/27/24 07:08) Unknown omeprazole (From Prilosec) Adverse Reaction (Verified 06/27/24 07:08) Other omeprazole magnesium (From Prilosec) Adverse Reaction (Verified 06/27/24 07:08) Other Medications ???Medication ???Instructions ???Recorded ???Confirmed ???Type norgestimate 0.25 mg-ethinyl 1 ea PO DAILY bcp 12/10/18 5 History estradiol 35 mcg tablet pantoprazole 40 mg tablet,delayed 80 tab PO QHS gerd 12/10/1807/18 History release venlafaxine 150 mg 150 mg PO QHS #30 caps 03/21/19 History capsule,extended release 24 hr lamotrigine 25 mg tablet 50 mg PO QHS 04/12/19 07/18/24 His tory diclofenac sodium 1 % topical gel 4 g topical TID #100 grams 07/18/24 Rx (Voltaren Arthritis Pain) benzonatate 200 mg capsule 200 mg PO TID PRN cough #20 caps 1 06/11/23 07/18/24 Rx methylprednisolone 4 mg tablets in See Rx Instructions PO PER PKG D IR 04/11/24 07/18/24 Rx a dose pack (Medrol (Javan)) #21 tabs methocarbamol 500 mg tablet 1,000 mg (2 x 500 mg) PO 4X/DAY 07/18/24 Rx PRN Muscle pain/spasm #56 tabs ondansetron 4 mg disintegrating 4 mg PO TID PRN nausea and 5 07/18/24 Rx tablet vomiting #21 tabs oxycodone-acetaminophen 5 mg-325 1 tab PO Q6H PRN pain 5 days #20 0 06/28/24 07/18/24 Rx mg tablet (Percocet) tabs prednisone 20 mg tablet 40 mg (2 x 20 mg) PO DAILY 5 days 06/28/24 07/18/24 Rx #10 tabs amoxicillin 875 mg-potassium 1 tab PO BID #20 tabs 07/18/24 Rx clavulanate 125 mg tablet Nurse's Note: Patient here for sore throat, rash since last thursday, headache, fatigue since thursday, was seen here on thursday. Ran rapid covid/flu test. [facility] Medical History Osteoarthritis of left knee Back pain Difficulty balancing Knee pain Chest pain Migraines Fatigue Stomach ulcer Shoulder pain SOB (shortness of breath) Arthritis Surgical History Gastric bypass status for obesity History of cholecystectomy History of tonsillectomy History of bilateral breast reduction surgery Social History Smoking Status: Former smoker HPI HPI Chief Complaint: ST, PEREZ, ear pain, congest, fatigue Details: FERNANDA HERNANDEZ, is a 44 F who presents to the office today for [facility] evaluation [facility] the [facility] for approximately 2-week history of persistent right facial pressure/fullness with sinus congestion and purulent postnasal drip and irritated/sore throat. At the request of her employer, she is here for reevaluation of COVID-19 and influenza and RSV. No tuur-mzr-goelowh products taken to assist. Several close contacts with similar URI complaints. Non-smoker. No gabv-qdj-zraioxx products taken to assist. No other associated symptoms and no other alleviating/aggravating factors. ROS Const Constitutional: No other (As above) Exam Const General: cooperative, healthy appearing and no acute distress Orientation: alert, awake and oriented x3 HENMT Head: normal to inspection Ears: hearing grossly normal bilaterally, external ears normal, TM's normal bilaterally and EAC's normal Nose: external nose normal, nares normal, septum normal and clear nasal discharge Face and sinus: normal facial exam, right maxillary fullness with palpable tender, and face symmetric Mouth: oral mucosae normal, lip normal, tongue normal and oropharynx normal Throat: posterior oropharynx normal, tonsils normal, uvula midline and purulent postnasal drainage Eyes General: appearance normal, both eyes and all related structures Neck Neck: normal visual inspection, full ROM, right anterior cervical lymph node swelling/tender to palpation, no meningeal signs and supple Neck mass: No Thyroid: thyroid normal Lymphatic: no lymphadenopathy noted Chest (more content not included)... Normal [facility] Urinalysis, Completeon 07-18 BACTERIA 1+ /hpf Normal None Seen [facility] Comment on above: Order Comment: CLEAN CATCH Performed By: #### L 400.7415, M100.677, L400.0001 #### [facility] [address] [place], [address] EPI,SQUAMOUS 0-5 SEEN Normal 5-10 [facility] Comment on above: Order Comment: CLEAN CATCH Performed By: #### L 400.7600, M100.677, L400.0001 #### [facility] [address] [place], [address] Mucus Ql (Urine sed) 1+ /hpf Normal [facility] Comment on above: Order Comment: CLEAN CATCH Performed By: #### L 400.7600, M100.677, L400.0001 #### [facility] [address] [place], [address] RBC 0 SEEN Normal 0-5 [facility] Comment on above: Order Comment: CLEAN CATCH Performed By: #### L 400.7600, M100.677, L400.0001 #### [facility] [address] [place], [address] WBC 0-5 SEEN Normal 0-5 [facility] Comment on above: Order Comment: CLEAN CATCH Performed By: #### L 400.7600, M100.677, L400.0001 #### [facility] [address] [place], [address] Urine blood detectionOrdered By: Chago Balderas on 07-18-2024 Urine Occult Blood Negative Negative [facility] Urine clarityOrdered By: Fred Balderas on 07-18-2024 Clarity (U) Sl. Cloudy Clear [facility] Urine color determinationOrd ered By: Chago Balderas on 07-18-2024 Color (U) Yellow Yellow [facility] Urine glucose detectionOrder ed By: Chago Balderas on 07-18-2024 Glucose Ql (U) Normal mg/dl Normal [facility] Urine leukocyte esterase det ection by dipstickOrdered By: Chago Balderas on 07-18-2024 Leukocyte esterase Test strip Ql (U) 100 /ul High Negative [facility] Urine pHOrdered By: Chago avilez on 07-18-2024 pH (U) 6.0 [pH] 5.0 - 8.0 [facility] Urine testOrdered By: Chago Balderas on 07-18-2024 HCG ( test) Ql (U) Negative [facility] Comment on above: Very dilute urine sp ecimens, as indicated by a low specificgravity, may not contain sales account representative levels of hCG. If is still suspected, a first morning urinespecimen should be collected 48 hours later and tested. Urine sediment bacteria coun t by microscopy (number/high power field)Ordered By: Chago Balderas on 07-18-2024 Bacteria LM.HPF (Urine sed) [#/Area] 1 /[HPF] None Seen [facility] Urine specific gravity measu rementOrdered By: Chago Balderas on 07-18-2024 Specific gravity (U) [Rel density] 1.010 1.002-1.03 0 [facility] Urine urobilinogen measureme ntOrdered By: Chago Balderas on 07-18-2024 Urobilinogen Ql (U) 4 mg/dl High Normal [facility] Urobilinogen Ql (U)Ordered B y: Chago Balderas on 07-18-2024 Urobilinogen (U) [Mass/Vol] 4 mg/dL High Normal [facility] White blood cell (WBC) count Ordered By: Chago Balderas on 07-18-2024 WBC (Bld) [#/Vol] 8.1 10*3/uL 4.4-11.0 [facility] White blood cell countOrdere d By: Chago Balderas on 07-18-2024 Urine WBC 0-5 SEEN /hpf 0-5 [facility] White blood cell count 0-5 SEEN /hpf 0-5 [facility] CNOVon 07-16-2024 CNOV Office Visit ([facility] ) FERNANDA HERNANDEZ ([id number]) 1980 F Date Time Provider Department 07/16/24 8:30 AM MARTINA WINTERS [facility] During your visit today, we recorded the following information about you: Temperature Pulse Respiration Blood pressure 98 degrees 88/minute 21/minute 130/100 Weight 111.7 kg Martina Winters PA 07/16/2024 8:43 AM Signed This note was created using [employer]. Subjective Fernanda Hernandez is a 44 year old female. HPI 44-year-old female presents for rash x 3 days. Patient states she has had an itchy rash on her arms, legs, abdomen x 3 days. She states that she did use detergent pods which are new. She states she has been using those for couple weeks, rash that showed up about 3 days ago. She states she has had a cold on and off for the past 3 weeks as well with headache, fatigue, sore throat, sneezing, runny nose. She has not had a cough. No chest pain or shortness of breath. She stated she did a COVID, flu and RSV swab at work and this was all negative. She has not had a strep swab. She denies any fevers. No vomiting or diarrhea. Still eating and drinking. No other complaint. PAST MEDICAL HISTORY Diagnosis Date Delayed emergence from general anesthesia Fibromyalgia 08/20/2016 GERD (gastroesophageal reflux disease) 03/12/2009 Hiatal hernia Hypoglycemia, unspecified Mental disorder anxiety and depression Migraine without aura 2001 Morbid obesity (HCC) Normal cardiac stress test 01/23/2012 PONV (postoperative nausea and vomiting) Sleep apnea Snoring Unspecified prophylactic or treatment measure PAST SURGICAL HISTORY Procedure Laterality Date COLONOSCOPY BX SINGLE/MULTI 02/04/2024 COLONOSCOPY W/BIOPSY SINGLE/MULTIPLE 12/14/2018 EGD 01/31/2020 ESOPHAGOGASTRODUODENOSCOPY TRANSORAL DIAGNOSTIC 04/11/2005 EGD ESOPHAGOGASTRODUODENOSCOPY TRANSORAL DIAGNOSTIC 03/06/2017 EGD GASTRIC BYPASS, TATI-EN-Y 11/08/2020 w/ Lap hiatal hernia repair LAP REPAIR, PARAESOPHAGEAL HIATAL HERNIA 11/08/2020 LAPAROSCOPY SURG CHOLECYSTECTOMY 03/21/2016 REDUCTION OF LARGE BREAST 2014 TONSILLECTOMY AND ADENOIDECTOMY AGE 11/> 2002 DR. EASTMAN ALLERGIES Aciphex [Rabeprazole Sodium], Entex Pse [Pseudoephedrine-Guaifenesi n], Nexium [Esomeprazole Magnesium], Prevacid [Lansoprazole], Prilosec [Omeprazole], Sulfa (Sulfonamide Antibiotics), and Wellbutrin [Bupropion Hcl] MEDICATIONS DULoxetine (CYMBALTA) 30 mg capsule Take 1 capsule by mouth once daily. lamoTRIgine (LAMICTAL) 200 mg tablet Take 1 tablet by mouth daily at bedtime. norgestimate 0.25 mg-ethinyl estradiol 35 mcg (TAMARA) 0.25-35 mg-mcg per tablet Take 1 tablet by mouth once daily. Take active pills only. No inactive week. MAGNESIUM GLYCINATE ORAL Take 200 mg by mouth once daily. meclizine (ANTIVERT) 25 mg tab Take 1 tablet by mouth three times a day as needed (vertigo). gabapentin (NEURONTIN) 100 mg capsule Take 1 capsule by mouth three times a day for 90 days. Multivitamin capsule Take 1 capsule by mouth once daily. BIOTIN, BULK, MISC cholecalciferol, vitamin D3, (VITAMIN D3 ORAL) Take by mouth. ascorbic acid (VITAMIN C ORAL) Take by mouth. ondansetron orally disintegrating (ZOFRAN ODT) 4 mg disintegrating tablet Take 1 tablet by mouth every 6 hours as needed for nausea/vomiting. (Patient not taking: Reported on 07/16/2024) FAMILY HISTORY Problem Relation Age of Onset Arthritis Mother Diabetes Mother Headache Father Lipids Father Headache Sister Diabetes Maternal Grandfather Stroke Maternal Grandfather Alcohol/Drug Paternal Grandmother ETOH Alcohol/Drug Paternal Grandfather ETOH Cancer Paternal Grandfather LUNG Alcohol/Drug Paternal Aunt ETOH Alcohol/Drug Paternal Uncle ETOH Cancer Paternal Uncle LUNG Social History Tobacco Use Smoking status: Former Current packs/day: 0.00 Average packs/day: 0.5 packs/day for 12.0 years (6.0 ttl pk-yrs) Types: Cigarettes Start date: 07/22/2001 Quit date: 07/22/2013 Years since quittin.9 Smokeless tobacco: Never Vaping Use Vaping status: Never Used Substance Use Topics Alcohol use: Not Currently Comment: Rarely Drug use: No Review of Systems Constitutional: Positive for fatigue. Negative for chills and fever. HENT: Positive for congestion, rhinorrhea, sneezing and sore throat. Negative for ear pain. Respiratory: Negative for cough and shortness of breath. Cardiovascular: Negative for chest pain. Gastrointestinal: Negative for diarrhea and vomiting. Skin: Positive for rash. Neurological: Positive for headaches. Objective BP 130/100 Pulse 88 Temp 36.7 ?C (98 ?F) Resp 21 Wt 111.7 kg (246 lb 4.1 oz) LMP 08/28/2020 (Approximate) SpO2 98% BMI 45.04 kg/m? Physical Exam Vitals and nursing note reviewed. Constitutional: General: She is not in acute distress. Appearance: Normal appearance (more content not included)... Normal [facility] STREP A MOLECULAR (POC)on Procedural Control Valid [facility] Strep A (POCT) Negative Negative [facility] - Microbiology an d Antimicrobial susceptibilityOrdered By: Lester Hilton on 07-15-2024 SARS-CoV-2 (COVID-19) RNA ELIZABETH+probe Ql (Unsp spec) Not detected [facility] M100.019on 07-15-2024 M100.019 Normal Reference Ran ge = Negative SARS-CoV-2 (COVID 19) RT-PCR GeneXpert Instrument, PCR method SARS-CoV-2 (COVID 19) Negative Normal [facility] Comment on above: Performed By: #### M 100.019 ####[facility] [id number] [place], [address] No Panel InformationOrdered By: Lester Hilton on 07-15-2024 POC Nasal Swab Influenza A,B Not detected [facility] POC Nasal Swab RSV Not detected [facility] Office Visit Reporton 2024 Office Visit Report [facility] [address] [place] [address] OFFICE VISIT Date of Service: 07/15/24 MR#: [id number] Acct: [id number] Patient: FERNANDA HERNANDEZ Rep #: [id number] : 1980 Provider: OG Ansari Age/Sex: 44/F Location: [facility] Status: Signed Employer Purchased Covid Test Note: Patient here today for Covid Testing, requested by their Employer. Assessment and Plan Assessment and Plan Orders: Orders POC Cepheid Covid, FluAB, RSV Today 07/15/24 1458 Date Lester Tariq Signature: Date (if applicable) CC: Normal [facility] [id number] By: Roc thompson on 07-15-2024 SARS-CoV-2 (COVID-19) RNA ELIZABETH+probe Ql (Unsp spec) [facility] Emergency Department Summary on 06-28-2024 Emergency Department Summary [facility] Medical Records Department [address] [place] [address] Emergency Department Summary 06/28/24 MR#: [id number] Acct: [id number] Name: FERNANDA HERNANDEZ Rep #: [id number] : 1980 44 From: Bo Fontenot DO PCP: Bettina Fuentes, DERRICK FOLLOWER Status:DEP ER Location: ED HPI History of Present Illness Chief Complaint: Back Informant: patient Narrative Narrative: Patient is a 44-year-old female with past medical history of GERD and osteoarthritis. She states that few days ago she developed pain in the right buttock/low back region. She states there was no trauma or excessive activity. She denies any loss of bowel or bladder control or IV drug use. She states there is been no skin changes and she denies any fevers or sick symptoms. She was seen in the ER roughly 24 hours ago and had a workup with blood work and urine sample which were negative and reported pain relief with medication given. However she states that she was not prescribed medication for home and symptoms have returned and she cannot control them with the htdi-cof-fimquhc meds and therefore comes in for evaluation. [facility] Medical History Osteoarthritis of left knee Back pain Difficulty balancing Knee pain Chest pain Migraines Fatigue Stomach ulcer Shoulder pain SOB (shortness of breath) Arthritis Home Medications ???Medication ???Instructions ???Recorded ???Last Taken ???Type norgestimate 0.25 mg-ethinyl 1 ea PO DAILY bcp 12/10/18 Unknown History estradiol 35 mcg tablet pantoprazole 40 mg tablet,delayed 80 tab PO QHS gerd 12/10/1801/30 History release venlafaxine 150 mg 150 mg PO QHS #30 caps 03/21/19 Un known History capsule,extended release 24 hr lamotrigine 25 mg tablet 50 mg PO QHS 04/12/19 Unknown Hist ory diclofenac sodium 1 % topical gel 4 g topical TID #100 grams Unknown Rx (Voltaren Arthritis Pain) benzonatate 200 mg capsule 200 mg PO TID PRN cough #20 caps 1 06/11/23 Unknown Rx methylprednisolone 4 mg tablets in See Rx Instructions PO PER PKG D IR 04/11/24 Unknown Rx a dose pack (Medrol (Javan)) #21 tabs methocarbamol 500 mg tablet 1,000 mg (2 x 500 mg) PO 4X/DAY Unknown Rx PRN Muscle pain/spasm #56 tabs ondansetron 4 mg disintegrating 4 mg PO TID PRN nausea and 5 Unknown Rx tablet vomiting #21 tabs oxycodone-acetaminophen 5 mg-325 1 tab PO Q6H PRN pain 5 days #20 0 06/28/24 Unknown Rx mg tablet (Percocet) tabs prednisone 20 mg tablet 40 mg (2 x 20 mg) PO DAILY 5 days 06/28/24 Unknown Rx #10 tabs Allergy/AdvReac Type Severity Reaction Status Date / Time lansoprazole (From Prevacid) Allergy Unknown Verified 06/27/24 07:08 rabeprazole (From Aciphex) Allergy Hives Verified 06/27/24 07:08 Sulfa (Sulfonamide Allergy Unknown Verified 06/27/24 07:08 Antibiotics) omeprazole (From Prilosec) AdvReac Other Verified 06/27/24 07:08 omeprazole magnesium (From AdvReac Other Verified 06/27/24 07:08 Prilosec) Surgical History Gastric bypass status for obesity History of cholecystectomy History of tonsillectomy History of bilateral breast reduction surgery Social History Smoking Status: Former smoker ROS ROS ED Constitutional Constitutional ED: Denies chills or fever(s) ENT ENT ED: Denies sore throat Cardiovascular Cardiovascular: Denies chest pain Respiratory/Chest Respiratory/Chest: Denies cough or dyspnea Gastrointestinal Gastrointestinal: Denies abdominal pain, diarrhea, nausea or vomiting Genitourinary Genitourinary ED: Denies dysuria or hematuria Musculoskeletal Musculoskeletal: Reports back pain Integumentary Denies rash Neurologic Neurologic: Denies headache(s), paresthesias or weakness Hematologic/Lymphatic Hematologic/Lymphatic: Denies easy bleeding or easy bruising EXAM Physical Exam Const Vital Signs: 06/28/24 05:39 Temperature 97.8 F Temperature Source Oral Pulse Rate 82 Respiratory Rate 18 Blood Pressure 151/83 H Blood Pressure Mean 105 Pulse Ox 95 Oxygen Delivery Method Room Air Positive well nourished and well developed General Appearance ED: well developed; Negative for pallor HEENT HEENT Narrative: Normocephalic atraumatic Eyes PERRL and EOMs intact bilaterally General Eye ED: Negative for scleral icterus Neck supple Resp normal respiratory effort and clear to auscultation bilaterally Cardio regular rate and regular rhythm Back/Spine Back/Spine Narrative: No bony deformity or step-off of the thoracic or lumbar spine no midline tenderness to palpation No saddle anesthesia. Negative straight leg raise. N (more content not included)... Normal [facility] Abdomen/Pelvis without Conto n 06-27-2024 Abdomen/Pelvis without Cont [facility] [address], [place] [address] Abdomen/Pelvis without Cont MR#: [id number] Acct: [id number] Name: FERNANDA HERNANDEZ Rep #: [id number] : 1980 F 44 From: Esthela Espinosa MD PCP: OG Snyder Status: PRE ER Study: Abdomen/Pelvis without Cont Date of Exam: 08/16 Exam# [id number] Ordering Dr: Corey Tristan MD EXAM: CT Abdomen and Pelvis Without Intravenous Contrast CLINICAL INDICATION: TECHNIQUE: Axial computed tomography images of the abdomen and pelvis without intravenous contrast. This CT exam was performed using one or more of the following dose reduction techniques: automated exposure control, adjustment of the mA and/or kV according to patient size, and/or use of iterative reconstruction technique. COMPARISON: No relevant prior studies available. FINDINGS: LUNG BASES: Unremarkable. No mass. No consolidation. ABDOMEN: LIVER: Unremarkable. GALLBLADDER AND BILE DUCTS: Unremarkable. No calcified stones. No ductal dilation. PANCREAS: Unremarkable. No ductal dilation. SPLEEN: Unremarkable. No splenomegaly. ADRENALS: Unremarkable. No mass. KIDNEYS AND URETERS: Unremarkable. No stones within either kidney. No hydronephrosis. STOMACH AND BOWEL: Evidence of prior gastric surgery. Mild hepatomegaly. volume fecal retention in the colon consistent with constipation. No obstruction. No mucosal thickening. PELVIS: APPENDIX: Normal appendix. BLADDER: Unremarkable. No stones. REPRODUCTIVE: Unremarkable as visualized. ABDOMEN and PELVIS: INTRAPERITONEAL SPACE: Unremarkable. No free air. No significant fluid collection. BONES/JOINTS: No acute fracture. No dislocation. SOFT TISSUES: Umbilical hernia containing fat. VASCULATURE: Unremarkable. No abdominal aortic aneurysm. LYMPH NODES: Unremarkable. No enlarged lymph nodes. CT/Abdomen/Pelvis without Cont IMPRESSION: 1. Normal appendix. 2. Mild hepatomegaly. volume fecal retention in the colon consistent with constipation. 3. Umbilical hernia containing fat. 4. No obstructive uropathy. Reading Location: [facility] CC: Dr. Corey Tristan MD; OG Snyder Career Development Coordinator/Teacher: Signed Normal [facility] Absolute lymphocyte countOrd ered By: Corey Tristan on 06-27-2024 Lymphocytes Auto (Unsp spec) [#/Vol] 2.72 10*3/uL 0.83-4.51 [facility] Absolute neutrophil countOrd ered By: Coreyai Tristan on 06-27-2024 Neutrophils (Bld) [#/Vol] 4.0 10*3/uL 2.0-7.7 [facility] Automated lymphocyte count a s percentage of total leukocytesOrdered By: Corey Tristan on 06-27-2024 Lymphocytes/100 WBC Auto (Unsp spec) 35.1 % 19-41 [facility] Basic Metabolic Profile (BMP )on 06-27-2024 BUN/CRE 14.9 RATIO Normal 10-20 [facility] Comment on above: Performed By: #### L 500.2500, L100.0100 ####[facility] [address] [place], [address] CA,Total 8.2 mg/dL Low 8.5-10.1 [facility] Comment on above: Performed By: #### L 500.2500, L100.0100 ####[facility] [address] [place], [address] Chloride [Moles/Vol] 106 mmol/L Normal 98-107 [facility] Comment on above: Performed By: #### L 500.2500, L100.0100 ####[facility] [address] [place], [address] CO2 [Moles/Vol] 28.0 mmol/L Normal 21.0-32.0 [facility] Comment on above: Performed By: #### L 500.2500, L100.0100 ####[facility] [address] [place], [address] Creatinine [Mass/Vol] 0.74 mg/dL Normal 0.55-1.02 [facility] Comment on above: Result Comment: The validity of the calculated GFR GFRAA in patients over 70 years has not been determined. Clinical correlation is essential. Performed By: #### L 500.2500, L100.0100 ####[facility] [address] [place], [address] ECRCL 113.65 ml/min Normal [facility] Comment on above: Performed By: #### L 500.2500, L100.0100 ####[facility] [address] [place], [address] EST GFR - AA 109 mL/min Normal >60 [facility] Comment on above: Result Comment: Afri can Turkish GFR Calc Performed By: #### L 500.2500, L100.0100 ####[facility] [address] [place], [address] GAP 4 Low 5-15 [facility] Comment on above: Performed By: #### L 500.2500, L100.0100 ####[facility] [address] [place], [address] GFR/1.73 sq M.predicted among non-blacks MDRD (S/P/Bld) [Vol rate/Area] 90 mL/min/{1.73_m2} Normal >60 [facility] Comment on above: Result Comment: Non- GFR Calc Performed By: #### L 500.2500, L100.0100 ####[facility] [address] [place], [address] Glucose [Mass/Vol] 78 mg/dL Normal 74-106 [facility] Comment on above: Performed By: #### L 500.2500, L100.0100 ####[facility] [address] [place], [address] Potassium [Moles/Vol] 3.3 mmol/L Low 3.5-5.1 [facility] Comment on above: Performed By: #### L 500.2500, L100.0100 ####[facility] [address] [place], [address] Sodium [Moles/Vol] 138 mmol/L Normal 136-145 [facility] Comment on above: Performed By: #### L 500.2500, L100.0100 ####[facility] [address] [place], [address] Urea nitrogen [Mass/Vol] 11 mg/dL Normal 7-18 [facility] Comment on above: Performed By: #### L 500.2500, L100.0100 ####[facility] [address] [place], [address] Basophil percentageOrdered B y: Corey Tristan on 02-03-2025 Basophils/100 WBC (Bld) 0.8 % 0-1 [facility] Beta HCG ( test) Ql Ordered By: Corey Tristan on 06-27-2024 Serum Test, Qualitative Negative [facility] Bilirubin Test strip Ql (U)O rdered By: Corey Tristan on 06-27-2024 Bilirubin Ql (U) Negative Negative [facility] Blood urea nitrogen (BUN)/cr eatinine ratioOrdered By: Corey Tristan on 06-27-2024 Urea nitrogen/Creatinine [Mass ratio] 14.9 mg/mg 10- [facility] CBC W/Diff, Automatedon Absolute Lymph 2.72 X10 3/uL Normal 0.83-4.51 [facility] Comment on above: Performed By: #### L 500.2500, L100.0100 ####[facility] [address] [place], [address] Absolute Neut 4.0 X10 3/uL Normal 2.0-7.7 [facility] Comment on above: Performed By: #### L 500.2500, L100.0100 ####[facility] [address] [place], [address] Basophils/100 WBC (Bld) 0.8 % Normal 0-1 [facility] Comment on above: Performed By: #### L 500.2500, L100.0100 ####[facility] [address] [place], [address] Eosinophils/100 WBC (Bld) 4.8 % Normal 0-5 [facility] Comment on above: Performed By: #### L 500.2500, L100.0100 ####[facility] [address] [place], [address] Erythrocyte distribution width (RBC) [Ratio] 12.9 % Normal 11.6-14.6 [facility] Comment on above: Performed By: #### L 500.2500, L100.0100 ####[facility] [address] [place], [address] Hematocrit (Bld) [Volume fraction] 39.7 % Normal 37-47 [facility] Comment on above: Performed By: #### L 500.2500, L100.0100 ####[facility] [address] [place], [address] Hemoglobin (Bld) [Mass/Vol] 13.2 g/dL Normal 12.0-15.0 [facility] Comment on above: Performed By: #### L 500.2500, L100.0100 ####[facility] [address] [place], [address] IG% 0.300 Normal 0.0-0.9 [facility] Comment on above: Result Comment: IG% - Immature Granulocytes (promyelocytes, myelocytes and metamyelocytes) > 1% indicates that a LEFT SHIFT is Present. Performed By: #### L 500.2500, L100.0100 ####[facility] [address] [place], [address] Lymphocytes/100 WBC (Bld) 35.1 % Normal 19-41 [facility] Comment on above: Performed By: #### L 500.2500, L100.0100 ####[facility] [address] [place], [address] MCH (RBC) [Entitic mass] 30.6 pg Normal 27.0-32.0 [facility] Comment on above: Performed By: #### L 500.2500, L100.0100 ####[facility] [address] [place], [address] MCHC (RBC) [Mass/Vol] 33.2 g/dL Normal 32-36 [facility] Comment on above: Performed By: #### L 500.2500, L100.0100 ####[facility] [address] [place], [address] MCV (RBC) [Entitic vol] 92.1 fL Normal 81-99 [facility] Comment on above: Performed By: #### L 500.2500, L100.0100 ####[facility] [address] [place], [address] Monocytes/100 WBC (Bld) 7.4 % Normal 0-10 [facility] Comment on above: Performed By: #### L 500.2500, L100.0100 ####[facility] [address] [place], [address] Neutrophils/100 WBC (Bld) 51.6 % Normal 47-70 [facility] Comment on above: Performed By: #### L 500.2500, L100.0100 ####[facility] [address] [place], [address] Nucleated RBC (Bld) [#/Vol] 0 10*3/uL Normal 0-5 [facility] Comment on above: Performed By: #### L 500.2500, L100.0100 ####[facility] [address] [place], [address] Platelet mean volume (Bld) [Entitic vol] 10.9 fL Normal 6.2-12.0 [facility] Comment on above: Performed By: #### L 500.2500, L100.0100 ####[facility] [address] [place], [address] Platelets (Bld) [#/Vol] 336 10*3/uL Normal 150-450 [facility] Comment on above: Performed By: #### L 500.2500, L100.0100 ####[facility] [address] [place], [address] RBC (Bld) [#/Vol] 4.31 10*6/uL Normal 4.2-5.4 [facility] Comment on above: Performed By: #### L 500.2500, L100.0100 ####[facility] [address] [place], [address] RDW SD 43.5 fl Normal 35.1-43.9 [facility] Comment on above: Performed By: #### L 500.2500, L100.0100 ####[facility] [address] [place], [address] WBC (Bld) [#/Vol] 7.7 10*3/uL Normal 4.4-11.0 [facility] Comment on above: Performed By: #### L 500.2500, L100.0100 ####[facility] [address] [place], [address] Carbon dioxide measurementOr dered By: Coreyai Tristan on 06-27-2024 CO2 [Moles/Vol] 28.0 mmol/L 21.0-32.0 [facility] Chloride measurementOrdered By: Coreyai Tristan on 06-27-2024 Chloride [Moles/Vol] 106 mmol/L 98-107 [facility] Emergency Department Summary on 06-27-2024 Emergency Department Summary [facility] Medical Records Department [address] [place] [address] Emergency Department Summary 06/27/24 MR#: [id number] Acct: [id number] Name: FERNANDA HERNANDEZ Rep #: [id number] : 1980 44 From: Corey Tristan MD PCP: Bettina Fuentes, DERRICK FOLLOWER Status:REG ER Location: ED HPI History of Present Illness Chief Complaint: Flank Pain Detail of Chief Complaint: Right flank pain that woke patient up from sleep at 0100. Informant: patient Onset/Context/Timing Onset: Today (0100) Context: Sudden Onset Timing: Continuous and Waxes and wanes Quality: Pain Location: Inferior the right flank radiating anteriorly right lower quadrant Current Severity: Mild Maximum Severity: Severe Worsened by: Nothing specific Relieved by: nothing Associated Symptoms Associated Symptoms: Nausea Narrative Narrative: Patient is a 44-year-old woman. She has history of anxiety and depression, GERD, osteoarthritis and tobacco use disorder. She presents because she was awakened from sleep at 0100 with pain right flank inferior right flank that radiates anteriorly. This associated with nausea. She denies vomiting or diarrhea. She denies fever, chills night sweats. She denies history of direct or indirect trauma. She denies dysuria, frequency, urgency or hematuria. She denies history of renal ureterolithiasis. She is status postcholecystectomy. She denies history of IBS, Crohn's disease or ulcerative colitis. She denies recent blood or mucus in her stool. She denies recent diarrhea. She denies history of diverticulosis. Patient denies cardiac or respiratory symptoms. Patient has not noted a rash. Prior similar symptoms: No Recent [facility] Medical History Osteoarthritis of left knee Back pain Difficulty balancing Knee pain Chest pain Migraines Fatigue Stomach ulcer Shoulder pain SOB (shortness of breath) Arthritis Home Medications ???Medication ???Instructions ???Recorded ???Last Taken ???Type norgestimate 0.25 mg-ethinyl 1 ea PO DAILY bcp 12/10/18 Unknown History estradiol 35 mcg tablet pantoprazole 40 mg tablet,delayed 80 tab PO QHS gerd 12/10/1801/30 History release venlafaxine 150 mg 150 mg PO QHS #30 caps 03/21/19 Un known History capsule,extended release 24 hr lamotrigine 25 mg tablet 50 mg PO QHS 04/12/19 Unknown Hist ory diclofenac sodium 1 % topical gel 4 g topical TID #100 grams Unknown Rx (Voltaren Arthritis Pain) benzonatate 200 mg capsule 200 mg PO TID PRN cough #20 caps 1 06/11/23 Unknown Rx methylprednisolone 4 mg tablets in See Rx Instructions PO PER PKG D IR 04/11/24 Unknown Rx a dose pack (Medrol (Javan)) #21 tabs Allergy/AdvReac Type Severity Reaction Status Date / Time lansoprazole (From Prevacid) Allergy Unknown Verified 06/27/24 07:08 rabeprazole (From Aciphex) Allergy Hives Verified 06/27/24 07:08 Sulfa (Sulfonamide Allergy Unknown Verified 06/27/24 07:08 Antibiotics) omeprazole (From Prilosec) AdvReac Other Verified 06/27/24 07:08 omeprazole magnesium (From AdvReac Other Verified 06/27/24 07:08 Prilosec) Surgical History Gastric bypass status for obesity History of cholecystectomy History of tonsillectomy History of bilateral breast reduction surgery Social History Smoking Status: Former smoker ROS ROS ED Constitutional Constitutional ED: Denies chills, fever(s), subjective or sweats Eyes Eyes: Denies blurry vision or change in vision ENT ENT ED: Denies rhinorrhea or sore throat Cardiovascular Cardiovascular: Denies chest pain, orthopnea, palpitations, paroxysmal nocturnal dyspnea or racing heartbeat Respiratory/Chest Respiratory/Chest: Denies cough, dyspnea, dyspnea on exertion, orthopnea or paroxysmal nocturnal dyspnea Gastrointestinal Gastrointestinal: Reports abdominal pain and nausea; Denies constipation, diarrhea, melena or vomiting Genitourinary Genitourinary ED: Reports LMP (females 10-50) Details: Comment: (Approximately 2 weeks ago.); Denies dysuria, hematuria or urinary frequency Musculoskeletal Musculoskeletal: Reports back pain; Denies arthralgias, myalgias or neck pain Integumentary Denies Abrasions or rash Neurologic Neurologic: Denies paresthesias or weakness Psychiatric Psychiatric: Reports anxiety; Denies depression or suicidal ideation Hematologic/Lymphatic Hematologic/Lymphatic: Reports systems reviewed and no addt'l complaints, except as documented EXAM Physical Exam Const Vital Signs: 06/27/24 07:06 06/27/24 09:06 Temperature 98.1 F Temperature Source Temporal Pulse Rate 82 63 Respiratory Rate 16 18 Blood P (more content not included)... Normal [facility] Eosinophil percentageOrdered By: Corey Tristan on 06-27-2024 Eosinophils/100 WBC (Bld) 4.8 % 0-5 [facility] Epithelial cells.squamous LM Ql (Urine sed)Ordered By: Corey Tristan on 06-27-2024 Epithelial cells.squamous LM.HPF (Urine sed) [#/Area] 0 /[HPF] 5-10 [facility] Erythrocyte distribution wid th ratioOrdered By: Corey Tristan on 06-27-2024 Erythrocyte distribution width (RBC) [Ratio] 12.9 % 11.6-14.6 [facility] Erythrocyte distribution wid th standard deviationOrdered By: Coreyai Tristan on 06-27-2024 Erythrocyte distribution width (RBC) [Entitic vol] 43.5 fL 35.1-43.9 [facility] Erythrocyte distribution width (RBC) [Ratio] 43.5 fl 35.1-43.9 [facility] Estimated glomerular filtrat ion rate (GFR) AmericanOrdered By: Corey Tristan on 06-27-2024 Estimated GFR (MDRD) Amer 109 mL/min >60 [facility] Comment on above: GFR Calc Estimation of creatinine anh aranceOrdered By: Coreyai Tristan on 06-27-2024 Estimated Creatinine Clearance Calc 113.65 ml/min [facility] Glomerular filtration rate ( GFR) estimationOrdered By: Coreyai Tristan on 06-27-2024 Estimated GFR (MDRD) Non-Af Amer 90 mL/min >60 [facility] Comment on above: Non- GFR Calc GFR/1.73 sq M.predicted among non-blacks MDRD (S/P/Bld) [Vol rate/Area] 90 mL/min/{1.73_m2} >60 [facility] Comment on above: Non- GFR Calc Glucose Ql (U)Ordered By: Vern Tristan on 06-27-2024 Urine Glucose (UA) Normal mg/dl Normal [facility] Glucose measurementOrdered B y: Corey Tristan on 06-27-2024 Glucose [Mass/Vol] 78 mg/dL 74-106 [facility] Hematocrit Auto (Bld) [Volum e fraction]Ordered By: Corey Tristan on 06-27-2024 Hematocrit (Bld) [Volume fraction] 39.7 % 37-47 [facility] Hemoglobin measurementOrdere d By: Corey Tristan on 06-27-2024 Hemoglobin (Bld) [Mass/Vol] 13.2 g/dL 12.0-15.0 [facility] Immature granulocytes/100 WB C Auto (Bld)Ordered By: Coreyai Tristan on 06-27-2024 Immature granulocytes/100 WBC (Bld) 0.300 % 0.0-0.9 [facility] Comment on above: IG% - Immature Granu locytes (promyelocytes, myelocytes and metamyelocytes) > 1% indicates that a LEFT SHIFT is Present. Ketones Test strip Ql (U)Ord ered By: Corey Tristan on 06-27-2024 Ketones Ql (U) Negative Negative [facility] Lymphocytes Auto (Unsp spec) [#/Vol]Ordered By: Corey Tristan on 06-27-2024 Lymphocytes (Bld) [#/Vol] 2.72 10*3/uL 0.83-4.51 [facility] Lymphocytes/100 WBC Auto (Un sp spec)Ordered By: Corey Tristan on 06-27-2024 Lymphocytes/100 WBC (Bld) 35.1 % 19-41 [facility] MCV (mean corpuscular volume ) determinationOrdered By: Corey Tristan on 06-27-2024 MCV (RBC) [Entitic vol] 92.1 fL 81-99 [facility] Mean corpuscular hemoglobin (MCH) determinationOrdered By: Corey Tristan on 06-27-2024 MCH (RBC) [Entitic mass] 30.6 pg 27.0-32.0 [facility] Mean corpuscular hemoglobin concentration (MCHC) determinationOrdered By: Corey Tristan on 06-27-2024 MCHC (RBC) [Mass/Vol] 33.2 g/dL 32-36 [facility] Mean platelet volume determi nationOrdered By: Corey Tristan on 06-27-2024 Platelet mean volume (Bld) [Entitic vol] 10.9 fL 6.2-12.0 [facility] Microscopic analysis of urin e for red blood cells (RBC)Ordered By: Corey Tristan on 06-27-2024 Microscopic analysis of urine for red blood cells (RBC) 0 SEEN /hpf 0-5 [facility] Urine RBC 0 SEEN /hpf 0-5 [facility] Monocyte percentageOrdered B y: Corey Tristan on 06-27-2024 Monocytes/100 WBC (Bld) 7.4 % 0-10 [facility] Mucus LM Ql (Urine sed)Order ed By: Corey Tristan on 06-27-2024 Mucus Ql (Urine sed) 0 SEEN /hpf [facility] Neutrophil percentageOrdered By: Corey Tristan on 06-27-2024 Neutrophils/100 WBC (Bld) 51.6 % 47-70 [facility] Nitrite Test strip Ql (U)Ord ered By: Corey Tristan on 06-27-2024 Nitrite Ql (U) Negative Negative [facility] Nucleated red blood cell per centageOrdered By: Corey Tristan on 06-27-2024 Nucleated RBC/100 WBC (Bld) [Ratio] 0 % 0-5 [facility] Platelet countOrdered By: Vern Tristan on 06-27-2024 Platelets (Bld) [#/Vol] 336 10*3/uL 150-450 [facility] Potassium measurementOrdered By: Corey Tristan on 06-27-2024 Potassium [Moles/Vol] 3.3 mmol/L Low 3.5-5.1 [facility] ,Serum,hCG Quali.on 06-27-2024 HCG, SERUM QUAL Negative Normal [facility] Comment on above: Performed By: #### L 700.6800 ####[facility] [address] [place], [address] Protein Test strip Ql (U)Ord ered By: Corey Tristan on 06-27-2024 Protein Ql (U) Negative Negative [facility] RBC Auto (Bld) [#/Vol]Ordere d By: Corey Tristan on 06-27-2024 RBC (Bld) [#/Vol] 4.31 10*6/uL 4.2-5.4 [facility] Serum anion gap measurementO rdered By: Corey Tristan on 06-27-2024 Anion gap [Moles/Vol] 4 mmol/L Low 5-15 [facility] Serum beta-hCG test, qualita tiveOrdered By: Corey Tristan on 06-27-2024 Beta HCG ( test) Ql Negative [facility] Serum or plasma calcium ta urement (mass/volume)Ordered By: Corey Tristan on 06-27-2024 Calcium [Mass/Vol] 8.2 mg/dL Low 8.5-10.1 [facility] Serum or plasma creatinine m easurement (mass/volume)Ordered By: Corey Tristan on 06-27-2024 Creatinine [Mass/Vol] 0.74 mg/dL 0.55-1.02 [facility] Comment on above: The validity of the calculated GFR & GFRAA in patients over 70 years has not been determined. Clinical correlation is essential. Serum or plasma urea nitroge n measurement (mass/volume)Ordered By: Corey Tristan on 06-27-2024 Urea nitrogen [Mass/Vol] 11 mg/dL 7-18 [facility] Sodium levelOrdered By: Corey Tristan on 06-27-2024 Sodium [Moles/Vol] 138 mmol/L 136-145 [facility] Squamous epithelial cells de tection in urine sediment by light microscopyOrdered By: Corey Tristan on 06-27-2024 Epithelial cells.squamous LM Ql (Urine sed) 0 SEEN /hpf - [facility] Urinalysis, Completeon 06-27 BACTERIA 0 SEEN Normal None Seen [facility] Comment on above: Order Comment: VANIA CTOR TO SPECIFY Performed By: #### L 400.0001 ####[facility] [address] [place], [address] EPI,SQUAMOUS 0 SEEN Normal - [facility] Comment on above: Order Comment: VANIA CTOR TO SPECIFY Performed By: #### L 400.0001 ####[facility] [address] [place], [address] Mucus Ql (Urine sed) 0 SEEN Normal [facility] Comment on above: Order Comment: VANIA CTOR TO SPECIFY Performed By: #### L 400.0001 ####[facility] [address] [place], [address] RBC 0 SEEN Normal 0-5 [facility] Comment on above: Order Comment: VANIA CTOR TO SPECIFY Performed By: #### L 400.0001 ####[facility] [address] [place], [address] WBC 0 SEEN Normal 0-5 [facility] Comment on above: Order Comment: VANIA CTOR TO SPECIFY Performed By: #### L 400.0001 ####[facility] [id number] [place], [address] Urine blood detectionOrdered By: Corey Tristan on 06-27-2024 Urine Occult Blood Negative Negative [facility] Urine clarityOrdered By: Corey Tristan on 06-27-2024 Clarity (U) Clear Clear [facility] Urine color determinationOrd ered By: Corey Tristan on 06-27-2024 Color (U) Yellow Yellow [facility] Urine glucose detectionOrder ed By: Corey Tristan on 06-27-2024 Glucose Ql (U) Normal mg/dl Normal [facility] Urine leukocyte esterase det ection by dipstickOrdered By: Corey Tristan on 06-27-2024 Leukocyte esterase Test strip Ql (U) 100 /ul High Negative [facility] Urine pHOrdered By: Corey gold on 06-27-2024 pH (U) 6.5 [pH] 5.0 - 8.0 [facility] Urine sediment bacteria coun t by microscopy (number/high power field)Ordered By: Corey Tristan on 06-27-2024 Bacteria LM.HPF (Urine sed) [#/Area] 0 /[HPF] None Seen [facility] Urine specific gravity measu rementOrdered By: Coreyai Tristan on 06-27-2024 Specific gravity (U) [Rel density] 1.010 1.002-1.03 0 [facility] Urine urobilinogen measureme ntOrdered By: Corey Tristan on 06-27-2024 Urobilinogen Ql (U) Normal mg/dl Normal [facility] Urobilinogen Ql (U)Ordered B y: Corey Tristan on 06-27-2024 Urine Urobilinogen Normal mg/dl Normal [facility] White blood cell (WBC) count Ordered By: Corey Tristan on 06-27-2024 WBC (Bld) [#/Vol] 7.7 10*3/uL 4.4-11.0 [facility] White blood cell countOrdere d By: Corey Tristan on 06-27-2024 Urine WBC 0 SEEN /hpf 0-5 [facility] White blood cell count 0 SEEN /hpf 0-5 [facility] Bacteria Ur Culton 12-10-202 4 Bacteria identified Cx Nom (U) ORGANISM ID: 1 10,000 -<50,000 CFU/ml Normal urogenital caitlin Normal [facility] Comment on above: Performed By: #### 6 30-4 ####[facility] LABCLIA [id number] [address] [place] CNOVon 05-03-2024 CNOV Office Visit (FAMPWS ) FERNANDA HERNANDEZ ([id number]) 1980 F Date Time Provider Department 05/03/24 3:20 PM BETTINA FUENTES FAMPWS During your visit today, we recorded the following information about you: Temperature Pulse Respiration Blood pressure 97.2 degrees 71/minute 18/minute 132/82 Weight 110 kg Bettina Fuentes, MEDICAL ONCOLOGY PHYSICIAN.AGENCY OWNER 05/03/2024 4:22 PM Addendum This is a 44 year old female who presents today with: No chief complaint on file. HISTORY OF PRESENT ILLNESS: Fernanda Hernandez is a 44 year old female. No chief complaint on file. Had RFA lumbar spine last week- Thu. IV in right hand but ropey tender vein inner upper forearm- pain started on and lump appeared over weekend. Left flank pain wraps around to front pelvis. Pain started last evening abruptly. Pushing to move bowels and sharp pain LLQ. No n/V No fever or chills. Right now 09/01- last evening 01/01 PAST MEDICAL HISTORY: PAST MEDICAL HISTORY Diagnosis Date Delayed emergence from general anesthesia Fibromyalgia 08/20/2016 GERD (gastroesophageal reflux disease) 03/12/2009 Hiatal hernia Hypoglycemia, unspecified Mental disorder anxiety and depression Migraine without aura 2001 Morbid obesity (HCC) Normal cardiac stress test 01/23/2012 PONV (postoperative nausea and vomiting) Sleep apnea Snoring Unspecified prophylactic or treatment measure PAST SURGICAL HISTORY Procedure Laterality Date COLONOSCOPY BX SINGLE/MULTI 02/04/2024 COLONOSCOPY W/BIOPSY SINGLE/MULTIPLE 12/14/2018 EGD 01/31/2020 ESOPHAGOGASTRODUODENOSCOPY TRANSORAL DIAGNOSTIC 04/11/2005 EGD ESOPHAGOGASTRODUODENOSCOPY TRANSORAL DIAGNOSTIC 03/06/2017 EGD GASTRIC BYPASS, TATI-EN-Y 11/08/2020 w/ Lap hiatal hernia repair LAP REPAIR, PARAESOPHAGEAL HIATAL HERNIA 11/08/2020 LAPAROSCOPY SURG CHOLECYSTECTOMY 03/21/2016 REDUCTION OF LARGE BREAST 2014 TONSILLECTOMY AND ADENOIDECTOMY AGE 11/> 2002 DR. EASTMAN ALLERGIES Aciphex [Rabeprazole Sodium], Entex Pse [Pseudoephedrine-Guaifenesi n], Nexium [Esomeprazole Magnesium], Prevacid [Lansoprazole], Prilosec [Omeprazole], Sulfa (Sulfonamide Antibiotics), and Wellbutrin [Bupropion Hcl] MEDICATIONS Current Outpatient Medications Medication Sig DULoxetine (CYMBALTA) 30 mg capsule Take 1 capsule by mouth once daily. norgestimate 0.25 mg-ethinyl estradiol 35 mcg (TAMARA) 0.25-35 mg-mcg per tablet Take 1 tablet by mouth once daily. Take active pills only. No inactive week. lamoTRIgine (LAMICTAL) 200 mg tablet Take 1 tablet by mouth daily at bedtime. MAGNESIUM GLYCINATE ORAL Take 200 mg by mouth once daily. meclizine (ANTIVERT) 25 mg tab Take 1 tablet by mouth three times a day as needed (vertigo). ondansetron orally disintegrating (ZOFRAN ODT) 4 mg disintegrating tablet Take 1 tablet by mouth every 6 hours as needed for nausea/vomiting. Multivitamin capsule Take 1 capsule by mouth once daily. BIOTIN, BULK, MISC cholecalciferol, vitamin D3, (VITAMIN D3 ORAL) Take by mouth. ascorbic acid (VITAMIN C ORAL) Take by mouth. gabapentin (NEURONTIN) 100 mg capsule Take 1 capsule by mouth three times a day for 90 days. No current facility-administered medications for this visit. FAMILY HISTORY Problem Relation Age of Onset Arthritis Mother Diabetes Mother Headache Father Lipids Father Headache Sister Diabetes Maternal Grandfather Stroke Maternal Grandfather Alcohol/Drug Paternal Grandmother ETOH Alcohol/Drug Paternal Grandfather ETOH Cancer Paternal Grandfather LUNG Alcohol/Drug Paternal Aunt ETOH Alcohol/Drug Paternal Uncle ETOH Cancer Paternal Uncle LUNG Social History Tobacco Use Smoking status: Former Current packs/day: 0.00 Average packs/day: 0.5 packs/day for 12.0 years (6.0 ttl pk-yrs) Types: Cigarettes Start date: 07/22/2001 Quit date: 07/22/2013 Years since quittin.7 Smokeless tobacco: Never Vaping Use Vaping status: Never Used Substance Use Topics Alcohol use: Not Currently Comment: Rarely Drug use: No EXAM: BP 132/82 Pulse 71 Temp 36.2 ?C (97.2 ?F) (Tympanic) Resp 18 Wt 110 kg (242 lb 8.1 oz) LMP 08/28/2020 (Approximate) SpO2 98% BMI 44.35 kg/m? PHYSICAL EXAM: Physical Exam Vitals reviewed. Constitutional: Appearance: Normal appearance. HENT: Head: Normocephalic. Cardiovascular: Rate and Rhythm: Normal rate and regular rhythm. Pulses: Normal pulses. Heart sounds: Normal heart sounds. Pulmonary: Effort: Pulmonary effort is normal. Breath sounds: Normal breath sounds. Abdominal: General: Bowel sounds are normal. There is no distension. Palpations: Abdomen is soft. Tenderness: There is abdominal tenderness. There is guarding. Comments: LLQ tenderness on palpation Musculoskeletal: General: Normal range of motion. Skin: General: Skin is warm and dry. Comments: Right forearm inner (more content not included)... Normal [facility] UA DIP, URINE (POC)on 2023 BILIRUBIN UA (POCT) Negative Negative [facility] CLARITY UA (POCT) Clear [facility] COLOR UA (POCT) Yellow [facility] GLUCOSE UA (POCT) Negative Negative mg/dL [facility] Hemoglobin Ql (U) Negative Negative [facility] Interpretation and review of laboratory results Abnormal [facility] KETONE UA (POCT) Negative Negative mg/dL [facility] LEUKOCYTES UA (POCT) Trace Abnormal Negative [facility] NITRITE UA (POCT) Negative Negative [facility] PH UA (POCT) 6.0 4.5 - 8.0 [facility] Protein Ql (U) Negative Negative mg/dL [facility] SPECIFIC GRAVITY UA (POCT) 1.025 1.005 - 1.030 [facility] UROBILINOGEN UA (POCT) 0.2 Caprice l E.U./dL [facility] Location: [place], [address] [facility], [place], [place], [id number] [place] [address] POINT OF CARE [facility] CNPMckenzie 04-28-2024 CNPN Telephone (UCWSTR) FERNANDA HERNANDEZ ([id number]) 1980 F Date Time Provider Department 04/28/24 JOURDAN ESTRADA [facility] During your visit today, we recorded the following information about you: Jourdan Estrada MD 04/28/2024 1:58 PM Signed Urine culture did not look like a clean sample so it did not show a clear infection. Follow up with PCP, urology, or DIRECTOR OF MATERIALS if symptoms persist. Usha Zhong LPN 04/28/2024 3:50 PM Signed My chart message sent. CLAIRE Norris Brandi, LPN 04/29/2024 10:47 AM Signed Patient given results and verbalized understanding of instructions given. Usha Zhong LPN Allergies As of Date: 04/28/2024 Noted Allergy Reaction ACIPHEX (RABEPRAZOLE SODIUM) 07/09/2016 2 - Rash ENTEX PSE (PSEUDOEPHEDRINE-GUAIFE* Comments: INSOMNIA NEXIUM (ESOMEPRAZOLE MAGNESIUM) 07/11/2016 14 - Other: See Comments Comments: Made acid reflux worse PREVACID (LANSOPRAZOLE) 03/06/2005 Comments: HEADACHE PRILOSEC (OMEPRAZOLE) 03/06/2005 Comments: HEADACHE SULFA (SULFONAMIDE ANTIBIOTICS) 03/06/2005 2 - Rash WELLBUTRIN (BUPROPION HCL) 05/08/2014 8 - GI Upset Date Reviewed: 04/27/2024 Reviewed by: Areli Benavidez MA - Fully Assessed Reason for Visit: Results [95] Cmt: Urine Cx mixed Prescriptions as of 04/29/2024 - DULoxetine (CYMBALTA) 30 mg capsule Take 1 capsule by mouth once daily. - norgestimate 0.25 mg-ethinyl estradiol 35 mcg (TAMARA) 0.25-35 mg-mcg per tablet Take 1 tablet by mouth once daily. Take active pills only. No inactive week. - lamoTRIgine (LAMICTAL) 200 mg tablet Take 1 tablet by mouth daily at bedtime. - MAGNESIUM GLYCINATE ORAL Take 200 mg by mouth once daily. - meclizine (ANTIVERT) 25 mg tab Take 1 tablet by mouth three times a day as needed (vertigo). - ondansetron orally disintegrating (ZOFRAN ODT) 4 mg disintegrating tablet Take 1 tablet by mouth every 6 hours as needed for nausea/vomiting. - gabapentin (NEURONTIN) 100 mg capsule Take 1 capsule by mouth three times a day for 90 days. - Multivitamin capsule Take 1 capsule by mouth once daily. - BIOTIN, BULK, MISC - cholecalciferol, vitamin D3, (VITAMIN D3 ORAL) Take by mouth. - ascorbic acid (VITAMIN C ORAL) Take by mouth. Meds Comments as of 07/16/2007: All medications have been reviewed /July 16, 2007 Cher Andre Rn Problem List As Of Date 04/28/2024 Noted Resolved Abdominal pain, epigastric [R10.13] 04/02/2005 03/12/2015 Acute gastritis without mention of hemorrhage [*04/11/2005 05/07/2015 Adjustment disorder with depressed mood [F43.21]02/02/2007 09/15/2019 DECREASED MOVMT-ANTEPARTUM [O36.8190] 01/20/2008 05/12/2008 Carbuncle and furuncle of trunk [L02.239, L02.2*05/12/2008 03/12/2015 GERD (gastroesophageal reflux disease) [K21.9] 03/12/2009 Lumbago [M54.50] 07/26/2009 Breakthrough bleeding with IUD [N92.1, Z97.5] 03/04/2012 03/18/2013 IUD migration [T83.32XA] 03/04/2012 03/18/2013 Tobacco abuse [Z72.0] 04/13/2012 07/22/2017 Unspecified prophylactic or treatment measure [* 03/12/2015 Morbid obesity (HCC) [E66.01] 03/14/2016 Fibromyalgia [M79.7] 08/20/2016 Paroxysmal hemicrania, 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] 08/20/2016 Cervical spinal stenosis [M48.02] 02/26/2017 Foraminal stenosis of cervical region [M48.02] 02/26/2017 Diarrhea [R19.7] 01/25/2019 Cervicothoracic somatic dysfunction [M99.01] 01/25/2019 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*06/09/2019 11/21/2021 Panic disorder without agoraphobia [F41.0] 06/09/2019 11/21/2021 Anxiety disorder [F41.9] 09/15/2019 Polypharmacy [Z79.899] 09/23/2019 CL[place]ON (obstructive sleep apnea) [G47.33] 12/28/2019 Acute pain of left shoulder [M25.512] 04/23/2020 Hiatal hernia [K44.9] 11/09/2020 11/09/2020 Major depressive disorder, recurrent episode, m*11/21/2021 Occult blood positive stool [R19.5] 02/04/2024 Encounter Status:Closed by USHA ZHONG on 04/29/24 Normal [facility] Bacteria Ur Culton Bacteria identified Cx Nom (U) CULTURE, URINE: Mixed microbiota, including predominantly: ORGANISM ID: 1 50,000-<100,000 CFU/ml Lactobacillus species Normal urogenital caitlin No further workup Normal [facility] Comment on above: Performed By: #### 6 30-4 ####[facility] LABCLIA [id number] [address] [place] CNOVon 04-27-2024 CNOV Office Visit (UCWSTR ) FERNANDA HERNANDEZ ([id number]) 1980 F Date Time Provider Department 04/27/24 8:30 AM JOURDAN ESTRADA [facility] During your visit today, we recorded the following information about you: Temperature Pulse Respiration Blood pressure 97.6 degrees 80/minute 18/minute 140/86 Weight 111.5 kg Jourdan Estrada MD 04/27/2024 9:05 AM Signed Patient presents with: Urinary Problem: Frequency, burning with urination x 5 days HPI: Symptoms for 5 days. Dysuria: Yes Frequency: Yes Hematuria: No pruritus: Yes Discharge: No Fever or chills: No Back pain: baseline Abdominal pain: No Prior UTI: Yes. Insignificant/mixed growth on cultures x 6 over the las 10 years. Treated with medrol and doxycycline for viral sinobronchitis a few weeks ago. She has not had improvement in symptoms with OTC monistat. MEDICATIONS: Current Outpatient Medications Medication Sig DULoxetine (CYMBALTA) 30 mg capsule Take 1 capsule by mouth once daily. norgestimate 0.25 mg-ethinyl estradiol 35 mcg (TAMARA) 0.25-35 mg-mcg per tablet Take 1 tablet by mouth once daily. Take active pills only. No inactive week. lamoTRIgine (LAMICTAL) 200 mg tablet Take 1 tablet by mouth daily at bedtime. MAGNESIUM GLYCINATE ORAL Take 200 mg by mouth once daily. meclizine (ANTIVERT) 25 mg tab Take 1 tablet by mouth three times a day as needed (vertigo). ondansetron orally disintegrating (ZOFRAN ODT) 4 mg disintegrating tablet Take 1 tablet by mouth every 6 hours as needed for nausea/vomiting. gabapentin (NEURONTIN) 100 mg capsule Take 1 capsule by mouth three times a day for 90 days. Multivitamin capsule Take 1 capsule by mouth once daily. BIOTIN, BULK, MISC cholecalciferol, vitamin D3, (VITAMIN D3 ORAL) Take by mouth. ascorbic acid (VITAMIN C ORAL) Take by mouth. No current facility-administered medications for this visit. ALLERGIES: ALLERGIES Allergen Reactions Aciphex [Rabeprazol* Rash Entex Pse [Pseudoep* INSOMNIA Nexium [Esomeprazol* Other: See Comments Made acid reflux worse Prevacid [Lansopraz* HEADACHE Prilosec [Omeprazol* HEADACHE Sulfa (Sulfonamide * Rash Wellbutrin [Bupropi* GI Upset VITALS: BP 140/86 Pulse 80 Temp 36.4 ?C (97.6 ?F) Resp 18 Wt 111.5 kg (245 lb 13 oz) LMP 08/28/2020 (Approximate) SpO2 98% BMI 44.96 kg/m? PHYSICAL EXAM: GEN: NAD HEENT: EOMI, conjunctiva clear, HEART: regular rate and rhythm, no murmurs LUNGS: clear to auscultation, no wheezes or crackles, no increased WOB ABDOMEN: Soft, nondistended, no masses, no suprapubic tenderness BACK: No CVA tenderness ASSESSMENT/PLAN: 1. Urinary frequency - ICD9: 788.41, ICD10: R35.0 - UA DIP, URINE (POC) - small LE only. Start - FLUCONAZOLE 150 MG TABLET for possible candidiasis following antibiotic and steroid therapy. Send - URINE CULTURE. Send antibiotic if there is significant growth. Jourdan Estrada MD Allergies As of Date: 04/27/2024 Noted Allergy Reaction ACIPHEX (RABEPRAZOLE SODIUM) 07/09/2016 2 - Rash ENTEX PSE (PSEUDOEPHEDRINE-GUAIFE* Comments: INSOMNIA NEXIUM (ESOMEPRAZOLE MAGNESIUM) 07/11/2016 14 - Other: See Comments Comments: Made acid reflux worse PREVACID (LANSOPRAZOLE) 03/06/2005 Comments: HEADACHE PRILOSEC (OMEPRAZOLE) 03/06/2005 Comments: HEADACHE SULFA (SULFONAMIDE ANTIBIOTICS) 03/06/2005 2 - Rash WELLBUTRIN (BUPROPION HCL) 05/08/2014 8 - GI Upset Date Reviewed: 04/27/2024 Reviewed by: Areli Benavidez MA - Fully Assessed Reason for Visit: Urinary Problem [252] Cmt: Frequency, burning with urination x 5 days Primary Visit Diagnosis:Urinary frequency [R35.0] Order(s):UA DIP, URINE (POC) [8969381] Order #: [id number]. #:[id number] -LAB URINE CULTURE [SQURCUL] Order #: [id number]. #:[id number] fluconazole (DIFLUCAN) 150 mg tabletTake 1 tablet by mouth once daily for 1 day.Disp: 1 tabletRfl: 0 Prescriptions as of 04/27/2024 - fluconazole (DIFLUCAN) 150 mg tablet Take 1 tablet by mouth once daily for 1 day. - DULoxetine (CYMBALTA) 30 mg capsule Take 1 capsule by mouth once daily. - norgestimate 0.25 mg-ethinyl estradiol 35 mcg (TAMARA) 0.25-35 mg-mcg per tablet Take 1 tablet by mouth once daily. Take active pills only. No inactive week. - lamoTRIgine (LAMICTAL) 200 mg tablet Take 1 tablet by mouth daily at bedtime. - MAGNESIUM GLYCINATE ORAL Take 200 mg by mouth once daily. - meclizine (ANTIVERT) 25 mg tab Take 1 tablet by mouth three times a day as needed (vertigo). - ondansetron orally disintegrating (ZOFRAN ODT) 4 mg disintegrating tablet Take 1 tablet by mouth every 6 hours as needed for nausea/vomiting. - gabapentin (NEURONTIN) 100 mg capsule Take 1 capsule by mouth three times a day for 90 days. - Multivitamin capsule Take 1 capsule by mouth once daily. - BIOTIN, BULK, MISC - cholecalciferol, vitamin (more content not included)... Normal [facility] Office Visit Reporton 2023 Office Visit Report [facility] [address] [place] [address] OFFICE VISIT Date of Service: 04/11/24 MR#: [id number] Acct: [id number] Patient: FERNANDA HERNANDEZ Rep #: [id number] : 1980 Provider: OG Nuno Age/Sex: 44/F Location: [facility] Status: Signed Employer Purchased Covid Test Note: Patient here today for Covid Testing, requested by their Employer. 04/27/24 1344 Date Eddie FOLEY Cosigner Signature: Date (if applicable) CC: Normal [facility] UA DIP, URINE (POC)on 2023 BILIRUBIN UA (POCT) Negative Negative [facility] CLARITY UA (POCT) Slightly Cloudy Cl [facility] COLOR UA (POCT) Dark yellow [facility] GLUCOSE UA (POCT) Negative Negative mg/dL [facility] Hemoglobin Ql (U) Negative Negative [facility] Interpretation and review of laboratory results Abnormal [facility] KETONE UA (POCT) Negative Negative mg/dL [facility] LEUKOCYTES UA (POCT) Small Abnormal Negative [facility] NITRITE UA (POCT) Negative Negative [facility] PH UA (POCT) 6.5 4.5 - 8.0 [facility] Protein Ql (U) Negative Negative mg/dL [facility] SPECIFIC GRAVITY UA (POCT) 1.025 1.005 - 1.030 [facility] UROBILINOGEN UA (POCT) 1.0 Caprice l E.U./dL [facility] Location:[facility], [address] [facility], [place], [place], [id number] [place] [address] POINT OF CARE [facility] CNOVon 04-16-2024 CNOV Office Visit (UCWSTR ) DAVIDFERNANDA Rosales ([id number]) 1980 F Date Time Provider Department 04/16/24 8:15 AM EDNA COURTNEY WSTR During your visit today, we recorded the following information about you: Temperature Pulse Respiration Blood pressure 97.8 degrees 66/minute 18/minute 144/88 Weight 108.2 kg Edna Courtney APRN.CNP 04/16/2024 8:39 AM Signed This note was created using NoteWriter. Subjective Fernanda Hernandez is a 44 year old female. HPI Pt was seen here 04/12 for symptoms that started several days before. She initially started with a sore throat which is subsequently resolved but then she developed generalized fatigue shortness of breath headaches and myalgias. On the she was prescribed doxycycline for presumed early pneumonia and sinobronchitis. She notes that she is still not feeling better and presents again for reevaluation. She has tested negative for COVID twice in the last several days. Review of Systems Constitutional: Positive for fatigue. Negative for fever. Respiratory: Positive for shortness of breath. Musculoskeletal: Positive for myalgias. Neurological: Positive for headaches. Objective BP 144/88 Pulse 66 Temp 36.6 ?C (97.8 ?F) (Tympanic) Resp 18 Wt 108.2 kg (238 lb 8.6 oz) LMP 08/28/2020 (Approximate) SpO2 98% BMI 43.63 kg/m? Physical Exam Vitals and nursing note reviewed. Constitutional: General: She is not in acute distress. Appearance: Normal appearance. She is not ill-appearing. HENT: Head: Normocephalic. Mouth/Throat: Mouth: Mucous membranes are moist. Eyes: Conjunctiva/sclera: Conjunctivae normal. Cardiovascular: Rate and Rhythm: Normal rate and regular rhythm. Pulmonary: Effort: Pulmonary effort is normal. Breath sounds: Normal breath sounds. Musculoskeletal: General: Normal range of motion. Cervical back: Normal range of motion. Skin: General: Skin is warm and dry. Neurological: General: No focal deficit present. Mental Status: She is alert. Psychiatric: Mood and Affect: Mood normal. Behavior: Behavior normal. Assessment and Plan ASSESSMENT/PLAN: 1. Other fatigue - ICD9: 780.79, ICD10: R53.83 Chest x-ray unremarkable showing no sign of pneumonia. I discussed with patient that I felt her symptoms were most likely more viral in origin and may take more time to resolve. I discussed with patient the importance of getting plenty of rest and fluids, using Tylenol as needed for pain and fever, and follow-up with PCP. - XR CHEST 2V FRONTAL/LAT [place] CourtneyN.AGENCY OWNER Allergies As of Date: 04/16/2024 Noted Allergy Reaction ACIPHEX (RABEPRAZOLE SODIUM) 07/09/2016 2 - Rash ENTEX PSE (PSEUDOEPHEDRINE-GUAIFE* Comments: INSOMNIA NEXIUM (ESOMEPRAZOLE MAGNESIUM) 07/11/2016 14 - Other: See Comments Comments: Made acid reflux worse PREVACID (LANSOPRAZOLE) 03/06/2005 Comments: HEADACHE PRILOSEC (OMEPRAZOLE) 03/06/2005 Comments: HEADACHE SULFA (SULFONAMIDE ANTIBIOTICS) 03/06/2005 2 - Rash WELLBUTRIN (BUPROPION HCL) 05/08/2014 8 - GI Upset Date Reviewed: 04/16/2024 Reviewed by: Edna Courtney APRN.AGENCY OWNER - Fully Assessed Reason for Visit: Flu Like Symptoms [267] Cmt: PEREZ, bodyaches, fatigue and SOB x 6 days Primary Visit Diagnosis:Other fatigue [R53.83] Order(s):XR CHEST 2V FRONTAL/LAT [[id number]] Order #: [id number] FUTURE Prescriptions as of 04/16/2024 - methylPREDNISolone (MEDROL DOSE-PACK) 4 mg Dose-Pack - doxycycline (VIBRA-TABS) 100 mg tablet Take 1 tablet by mouth two times a day for 5 days. - DULoxetine (CYMBALTA) 30 mg capsule Take 1 capsule by mouth once daily. - norgestimate 0.25 mg-ethinyl estradiol 35 mcg (TAMARA) 0.25-35 mg-mcg per tablet Take 1 tablet by mouth once daily. Take active pills only. No inactive week. - lamoTRIgine (LAMICTAL) 200 mg tablet Take 1 tablet by mouth daily at bedtime. - MAGNESIUM GLYCINATE ORAL Take 200 mg by mouth once daily. - meclizine (ANTIVERT) 25 mg tab Take 1 tablet by mouth three times a day as needed (vertigo). - ondansetron orally disintegrating (ZOFRAN ODT) 4 mg disintegrating tablet Take 1 tablet by mouth every 6 hours as needed for nausea/vomiting. - gabapentin (NEURONTIN) 100 mg capsule Take 1 capsule by mouth three times a day for 90 days. - Multivitamin capsule Take 1 capsule by mouth once daily. - BIOTIN, BULK, MISC - cholecalciferol, vitamin D3, (VITAMIN D3 ORAL) Take by mouth. - ascorbic acid (VITAMIN C ORAL) Take by mouth. Meds Comments as of 07/16/2007: All medications have been reviewed today/July 16, 2007 Cher Andre Rn Problem List As Of Date 04/16/2024 Noted Resolved Abdominal pain, epigastric [R10.13] 04/02/2005 03/12/2015 Acute gastritis without mention of hemorrhage [*04/11/2005 05/07/2015 Adjustment disorder with depressed mood [F43.21]02/02/2007 09/15/2019 DECREASED MOVMT-ANTEPARTUM [O36.8190] 12/24 (more content not included)... Normal [facility] XR CHEST 2V FRONTAL/LATon XR CHEST 2V FRONTAL/LAT * * *Final Report* * * DATE OF EXAM: Apr 16 2024 8:31AM WOX 5291 - XR CHEST 2V FRONTAL/LAT / PROCEDURE REASON: Other fatigue * * * * Physician Interpretation * * * * EXAMINATION: CHEST RADIOGRAPH (2 VIEW FRONTAL and LATERAL) CLINICAL HISTORY: Other fatigue MQ: XC2_6 EXAM DATE/TIME: 04/16/2024 8:31 AM COMPARISON: Chest x-ray on 04/23/2022 RESULT: Lines, tubes, and devices: None. Lungs and pleura: No consolidation. No lung mass. No pleural effusion. No pneumothorax. Cardiomediastinal silhouette: Normal cardiomediastinal silhouette. Bones and soft tissues: Unremarkable. IMPRESSION: No acute radiographic abnormality. Career Development Coordinator/Teacher: JOHNATHAN Transcribe Date/Time: Apr 16 2024 8:33A Dictated by : PASCUAL MCCANN MD This examination was interpreted and the report reviewed and electronically signed by: PASCUAL MCCANN MD on Apr 16 2024 8:33AM EST [id number] Normal [facility] XR Chest PA and Lateralon IMPRESSION: No acute radiographic abnormality. Career Development Coordinator/Teacher: [employer] Transcribe Date/Time: Apr 16 2024 8:33A Dictated by : PASCUAL MCCANN MD This examination was interpreted and the report reviewed and electronically signed by: PASCUAL MCCANN MD on Apr 16 2024 8:33AM EST DIVISION OF RADIOLOGY * * *Final Report* * * DATE OF EXAM: Apr 16 2024 8:31AM WOX 5291 - XR CHEST 2V FRONTAL/LAT / PROCEDURE REASON: Other fatigue * * * * Physician Interpretation * * * * EXAMINATION: CHEST RADIOGRAPH (2 VIEW FRONTAL & LATERAL) CLINICAL HISTORY: Other fatigue MQ: XC2_6 EXAM DATE/TIME: 04/16/2024 8:31 AM COMPARISON: Chest x-ray on 04/23/2022 RESULT: Lines, tubes, and devices: None. Lungs and pleura: No consolidation. No lung mass. No pleural effusion. No pneumothorax. Cardiomediastinal silhouette: Normal cardiomediastinal silhouette. Bones and soft tissues: Unremarkable. DIVISION OF RADIOLOGY Provider, Hermilo Prince - 04/16/2024 * * *Final Report* * * DATE OF EXAM: Apr 16 2024 8:31AM WOX 5291 - XR CHEST 2V FRONTAL/LAT / PROCEDURE REASON: Other fatigue * * * * Physician Interpretation * * * * EXAMINATION: CHEST RADIOGRAPH (2 VIEW FRONTAL & LATERAL) CLINICAL HISTORY: Other fatigue MQ: XC2_6 EXAM DATE/TIME: 04/16/2024 8:31 AM COMPARISON: Chest x-ray on 04/23/2022 RESULT: Lines, tubes, and devices: None. Lungs and pleura: No consolidation. No lung mass. No pleural effusion. No pneumothorax. Cardiomediastinal silhouette: Normal cardiomediastinal silhouette. Bones and soft tissues: Unremarkable. IMPRESSION IMPRESSION: No acute radiographic abnormality. Career Development Coordinator/Teacher: PSCB Transcribe Date/Time: Apr 16 2024 8:33A Dictated by : PASCUAL MCCANN MD This examination was interpreted and the report reviewed and electronically signed by: PASCUAL MCCANN MD on Apr 16 2024 8:33AM EST [facility] Radiology Study observation (narrative) [facility] XR Chest PA and LateralOrder ed By: [facility]cf Provider on 04-16-2024 [facility] CNOVon 04-12-2024 CNOV Office Visit ([facility] ) FERNANDA HERNANDEZ ([id number]) 1980 F Date Time Provider Department 04/12/24 12:45 PM MARTINA WINTERS [facility] During your visit today, we recorded the following information about you: Temperature Pulse Respiration Blood pressure 98.4 degrees 76/minute 16/minute 144/80 Weight 110.6 kg Martina Winters PA 04/12/2024 12:57 PM Signed This note was created using [employer]. Subjective Fernanda Hernandez is a 44 year old female. HPI 44-year-old female presents for sinus pressure, sinus pain, sore throat x 6 days. Patient states she has had sinus pressure, congestion for about a week. She has had sore throat for about 6 days. She states she has a cough. She denies any chest pain or shortness of breath. She is still able to eat and drink. She reports that she was seen at an urgent care 2 days ago and tested for strep, flu, COVID all of which were negative. She was given a Medrol Dosepak. She states this is not really helping her symptoms. She continues with sore throat, cough, sinus pressure and pain. She has been taking ptak-iyj-galumli cough and cold medications as well without much improvement. She has had sick contacts. No other complaint. PAST MEDICAL HISTORY Diagnosis Date Delayed emergence from general anesthesia Fibromyalgia 08/20/2016 GERD (gastroesophageal reflux disease) 03/12/2009 Hiatal hernia Hypoglycemia, unspecified Mental disorder anxiety and depression Migraine without aura 2001 Morbid obesity (HCC) Normal cardiac stress test 01/23/2012 PONV (postoperative nausea and vomiting) Sleep apnea Snoring Unspecified prophylactic or treatment measure PAST SURGICAL HISTORY Procedure Laterality Date COLONOSCOPY BX SINGLE/MULTI 02/04/2024 COLONOSCOPY W/BIOPSY SINGLE/MULTIPLE 12/14/2018 EGD 01/31/2020 ESOPHAGOGASTRODUODENOSCOPY TRANSORAL DIAGNOSTIC 04/11/2005 EGD ESOPHAGOGASTRODUODENOSCOPY TRANSORAL DIAGNOSTIC 03/06/2017 EGD GASTRIC BYPASS, TATI-EN-Y 11/08/2020 w/ Lap hiatal hernia repair LAP REPAIR, PARAESOPHAGEAL HIATAL HERNIA 11/08/2020 LAPAROSCOPY SURG CHOLECYSTECTOMY 03/21/2016 REDUCTION OF LARGE BREAST 2014 TONSILLECTOMY AND ADENOIDECTOMY AGE 11/> 2002 DR. EASTMAN ALLERGIES Aciphex [Rabeprazole Sodium], Entex Pse [Pseudoephedrine-Guaifenesi n], Nexium [Esomeprazole Magnesium], Prevacid [Lansoprazole], Prilosec [Omeprazole], Sulfa (Sulfonamide Antibiotics), and Wellbutrin [Bupropion Hcl] MEDICATIONS methylPREDNISolone (MEDROL DOSE-PACK) 4 mg Dose-Pack DULoxetine (CYMBALTA) 30 mg capsule Take 1 capsule by mouth once daily. norgestimate 0.25 mg-ethinyl estradiol 35 mcg (TAMARA) 0.25-35 mg-mcg per tablet Take 1 tablet by mouth once daily. Take active pills only. No inactive week. lamoTRIgine (LAMICTAL) 200 mg tablet Take 1 tablet by mouth daily at bedtime. MAGNESIUM GLYCINATE ORAL Take 200 mg by mouth once daily. cyclobenzaprine (FLEXERIL) 10 mg tablet Take 1 tablet by mouth three times a day as needed for muscle spasm. meclizine (ANTIVERT) 25 mg tab Take 1 tablet by mouth three times a day as needed (vertigo). ondansetron orally disintegrating (ZOFRAN ODT) 4 mg disintegrating tablet Take 1 tablet by mouth every 6 hours as needed for nausea/vomiting. gabapentin (NEURONTIN) 100 mg capsule Take 1 capsule by mouth three times a day for 90 days. Multivitamin capsule Take 1 capsule by mouth once daily. BIOTIN, BULK, MISC cholecalciferol, vitamin D3, (VITAMIN D3 ORAL) Take by mouth. ascorbic acid (VITAMIN C ORAL) Take by mouth. FAMILY HISTORY Problem Relation Age of Onset Arthritis Mother Diabetes Mother Headache Father Lipids Father Headache Sister Diabetes Maternal Grandfather Stroke Maternal Grandfather Alcohol/Drug Paternal Grandmother ETOH Alcohol/Drug Paternal Grandfather ETOH Cancer Paternal Grandfather LUNG Alcohol/Drug Paternal Aunt ETOH Alcohol/Drug Paternal Uncle ETOH Cancer Paternal Uncle LUNG Social History Tobacco Use Smoking status: Former Current packs/day: 0.00 Average packs/day: 0.5 packs/day for 12.0 years (6.0 ttl pk-yrs) Types: Cigarettes Start date: 07/22/2001 Quit date: 07/22/2013 Years since quittin.7 Smokeless tobacco: Never Vaping Use Vaping status: Never Used Substance Use Topics Alcohol use: Not Currently Comment: Rarely Drug use: No Review of Systems Constitutional: Negative for chills and fever. HENT: Positive for congestion, sinus pressure, sinus pain and sore throat. Negative for ear pain. Respiratory: Positive for cough. Negative for shortness of breath. Cardiovascular: Negative for chest pain. Gastrointestinal: Negative for diarrhea and vomiting. Objective BP 144/80 Pulse 76 Temp 36.9 ?C (98.4 ?F) Resp 16 Wt 110.6 kg (243 lb 13.3 oz) LMP 08/28/2020 (Approximate) SpO2 97% BMI 44.60 kg/m? Physical Exam Vitals and nurs (more content not included)... Normal [facility] Visit Reporton 1 06-11-2023 Urgent Care Visit Report [facility] [address], [address] [place] [id number] OFFICE VISIT Date of Service: 04/11/24 MR#: [id number] Acct: [id number] Name: FERNANDA HERNANDEZ Rep #: [id number] : 1980 Provider: OG Nuno Age/Sex: 44/F Location: [facility] Status: Signed Intake Vital Signs 03/25/24 15:41 04/11/24 07:23 Height 5 ft 3 in BP 132/84 H Blood Pressure Location Lt brachial Position Sitting Respiration 16 Pulse 82 Pulse Source NIBP Temp 99.2 F H Temp Source Oral Pulse Oximetry (%) 98 Oxygen Delivery Method room air Intake Visit Reasons: ST/PEREZ/BILAT EAR/BA/CHEST CONGESTION Chief Complaint: ST, PEREZ, ear pain, congest, fatigue Road Boss Required: No Is patient in pain?: No Allergies lansoprazole (From Prevacid) Allergy (Verified 04/11/24 07:23) Unknown rabeprazole (From Aciphex) Allergy (Verified 04/11/24 07:23) Hives Sulfa (Sulfonamide Antibiotics) Allergy (Verified 04/11/24 07:23) Unknown omeprazole (From Prilosec) Adverse Reaction (Verified 04/11/24 07:23) Other omeprazole magnesium (From Prilosec) Adverse Reaction (Verified 04/11/24 07:23) Other Medications ???Medication ???Instructions ???Recorded ???Confirmed ???Type norgestimate 0.25 mg-ethinyl 1 ea PO DAILY bcp 12/10/18 07/19/23 History estradiol 35 mcg tablet pantoprazole 40 mg tablet,delayed 80 tab PO QHS gerd 12/10/18 07/19/23 History release venlafaxine 150 mg 150 mg PO QHS #30 caps 03/21/19 07/19/23 History capsule,extended release 24 hr lamotrigine 25 mg tablet 50 mg PO QHS 04/12/19 07/19/23 History diclofenac sodium 1 % topical gel 4 g topical TID #100 grams 11/28/22 07/19/23 Rx (Voltaren Arthritis Pain) benzonatate 200 mg capsule 200 mg PO TID PRN cough #20 caps 04/11/24 04/11/24 Rx methylprednisolone 4 mg tablets in See Rx Instructions PO PER PKG DIR 04/11/24 04/11/24 Rx a dose pack (Medrol (Javan)) #21 tabs Is last menstrual period known: No Post menopausal: No Patient : No Have you fallen in the past year?: No Nurse's Note: ST, PEREZ, ear pain, congest, fatigue x 5 days. PFSH Medical History Osteoarthritis of left knee Back pain Difficulty balancing Knee pain Chest pain Migraines Fatigue Stomach ulcer Shoulder pain SOB (shortness of breath) Arthritis Surgical History Gastric bypass status for obesity History of cholecystectomy History of tonsillectomy History of bilateral breast reduction surgery Social History Smoking Status: Former smoker HPI HPI Chief Complaint: ST, PEREZ, ear pain, congest, fatigue Details: FERNANDA HERNANDEZ, is a 44 F who presents to the office today for initial evaluation in the [facility] for approximately 5 day history of persistent sore throat, headache, AU pain, congestion, and fatigue. Patient notes no complaints of chest pain or shortness of breath or dyspnea on exertion. Several close contacts recently dx???d w/ similar URI complaints. Requesting Cepheid screening as she is a [employer] employee. No ihes-zsn-icsdxji taken to assist. No other associated symptoms and no other alleviating/aggravating factors. ROS Const Constitutional: No other (As above) Exam Const General: cooperative, healthy appearing and no acute distress Orientation: alert, awake and oriented x3 HENMT Head: normal to inspection Ears: hearing grossly normal bilaterally, external ears normal, TM's normal bilaterally and EAC's normal Nose: external nose normal, nares normal, septum normal and clear nasal discharge Face and sinus: normal facial exam, sinuses nontender and face symmetric Mouth: oral mucosae normal, lip normal, tongue normal and oropharynx normal Throat: posterior oropharynx normal, tonsils normal, uvula midline and no postnasal drainage Eyes General: appearance normal, both eyes and all related structures Neck Neck: normal visual inspection, full ROM, no lymphadenopathy, no meningeal signs and supple Neck mass: No Thyroid: thyroid normal Lymphatic: no lymphadenopathy noted Chest Chest palpation inspection: normal inspection of the chest Resp Effort Inspection: normal respiratory effort, able to speak in complete sentences and no unsolicited cough during today's exam Auscultation: Bilateral: Clear to Auscultation Cardio Palpation: normal PMI Rate: Regular Rhythm: regular rhythm Heart Sounds: S1 normal, S2 normal, no gallops, no murmurs and no rubs Pulses: radial pulses present Skin General: no rashes or lesions noted Neuro General: patient alert, patient awake and patient oriented x3 Cognition: normal cognition Speech: speech normal Psych Appearance: tena (more content not included)... Normal [facility] Inital Evaluation (1) - PTon 03-30-2024 Inital Evaluation (1) - PT [facility] Physical Therapy [facility] [address] [place] [address] [address] [place] [address] / REHABILITATION SERVICES INITIAL EVALUATION MR#: [id number] Acct: [id number] Name: FERNANDA HERNANDEZ Rep #: [id number] : 1980 44 From: Ania Rubi PT, Cert. MDT Referring Dr.: Dr. Larry Hummel MD Status: REG RCR Insurance: [facility] SELF PAY INSURANCE Patient's Visit Information Visit Information Visit Information: FERNANDA HERNANDEZ is a 44 year old F referred to Physical Therapy by Dr. Larry Hummel MD with a diagnosis of LUMBAR SPONDYLOSIS, NECK PAIN, CERVIGOGENIC PEREZ. Date of Evaluation: 03/30/24 Physical Therapist: Ania Rubi, PT, Cert MDT Visit Plan Frequency: 2x /Week Duration: 4-6 Weeks Plan: Scapular Strengthening. Submax Cervical Isometrics all planes. US at 1.3 W/CM2 100% to B Neck Musculature in Sitting. Moist Heat to Neck as needed. Instruction in Proper Posture Control, Ergonomics with ADL's/work activities and Appropriate Activity Modifications. HEP Instructions. Anterior Pelvic Tilt Correction with Sitting and Standing Activities and Exercises. DLS starting with a neutral spine and progressing ROM as tolerated. HEP inst. US at 1.5 W/CM2 100% TO B Low Back Musculature. Moist Heat to Low Back as needed. 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 L LATERAL PROXIMAL THIGH PAIN. PAWAN SHLD AND PROXIMAL UPPER ARM PAIN. HEADACHES. PATIENT DENIES PAWAN UE AND LE NUMBNESS AND TINGLING. Present since: 25-30 YEARS AGO Pain Scale: WORST 9/10, LEAST 4/10 Currently: NECK 6/10, LOW BACK 5/10 Is it getting better, worse or staying the same: STAYING THE SAME Commenced as a result of: NO APPARENT REASON OTHER THAN FALL OFF OF A SKI LIFT Symptoms at onset: PATIENT CAN NOT REMEMBER Worse: NECK: LIFTING, BENDING, HOLDING PHONE, WORKING ON COMPUTER, DRIVING, CERTAIN SEATS, PROLONGED SITTING. LBP: PROLONGED STANDING, WASHING DISHES, LIFTING, BENDING BACKWARDS. Better: NECK: MASSAGE, ORAL MEDICATION PRESCRIBED, TYLONOL. LOW BACK: ORAL MEDICATIONS PRESCRIBED, TYLONOL, HOME MASSAGER Disturbed sleep: YES Previous history/Previous treatment: YEARS AGO - TRIGGER POINT INJECTIONS ONCE FOR NECK. NO NECK OR BACK SURGERY. CHIROPRACTIC AND PT ON NECK AND BACK IN THE PAST. CHIROPRACTIC HAS BEEN DONE REGULARLY OVER THE YEARS AND USUALLY HELPFUL. PHYSICAL THERAPY HAS NEVER BEEN HELPFUL BUT SHE DOESN'T RE-CALL IT MAKING HER PAIN WORSE BUT IT HAS BEEN A LONG TIME SINCE HAVING IT. Treatment this episode: GABAPENTIN, FLEXERIL AND ANOTHER MUSCLE RELAXER. PRESCRIPTION TYLONOL. Coughing/sneezing/straining : NEGATIVE FOR INCREASING PAIN Dizziness: YES - VERTIGO - PATIENT IS ON MEDICATION. Tinnitus: NO Nausea: AT TIMES WHEN THE PAIN INCREASES. Shortness of Breath: NO Difficulty Swallowing: NO Gait: DOES NOT USE ANY AD'S. NOT LIMITED PER PATIENT REPORT. DENIES LIMPING. Bowel or Bladder Dysfunction: PATIENT DENIES Accidents: FALL FROM SKI LIFT ABOUT 20 YEARS AGO Unexplained weight loss: NO Imaging: PATIENT CAN'T RECALL WHEN LAST IMAGING WAS DONE BUT IT WAS [facility]ROUGH [facility] AND A YEAR OR SO AGO. PMH/Recent major surgery: DEPRESSION AND ANXIETY OTHER: DON'T LET THEM DO ANYTHING STRENUOUS ON YOUR NECK. PATIENT DENIES HAVING ANY SPECIFIC PHYSICIAN RESTRICTIONS OR A LIFTING LIMIT. Objective Objective: Sitting/Standing Posture: INCREASED PAIN STANDING WITH EQUAL WT BEARING B LE'S. SHIFTING WEIGHT TO R LE DECREASES LBP IN STANDING. SLOUCHED IN SITTING. ACTIVE CORRECTION OF SITTING POSTURE HAS NE ON NECK AND DECREASES LBP AFTER DONE TRANSITIONING. DURING TRANSITION THERE IS INCREASED PAIN. ANTERIOR PELVIC TILT IN STANDING. NO RELEVANT LATERAL LUMBAR SHIFT. FORWARD HEAD. ROUNDED SHOULDERS. DOWAGERS HUMP. Other Observations: THIS PATIENT AMBULATES INDEP'LY INTO PT WITHOUT ANY AD'S OR LOB. ABLE TO INDEP'LY TRANSFER SIT TO STAND WITHOUT UE ASSIST. Sensory deficit: PAWAN UE AND LE LIGHT TOUCH SENSATION GROSSLY INTACT AND SYMMETRICAL ROM deficit: PAWAN UE AND LE ROM WFL BUT PATIENT C/O PAIN WITH ELEVATION OF PAWAN UE'S L>R TODAY BUT SHE REPORTS SOMETIMES IT IS HER R THAT HURTS MORE. PATIENT ALSO WITH C/O LOW BACK PAIN WITH HIP ROM TESTING. Motor deficit: R SHLD 4/5, ELBOW 5/5, HAND 5/5. L SHLD 4/5, ELBOW 5/5, HAND 5/5. L HIP 4-/5, KNEE 5/5, ANKLE 5/5. R HIP 4/5, KNEE 5/5, ANKLE 5/5. Reflexes: UNABLE TO ELICIT PAWAN UE AND LE DTR'S. Dural Signs: NEGATIVE PAWAN UE AND LE'S. Cervical Mvmt Loss: Flex: NIL - INCREASES NECK - NW Pro: NIL - INCREASES NECK - NW Ext: MOD - NE Ret: CAYETANO - INCREASES NECK AND P CHIN - NW RSB: MOD - DECREASES NECK - NB LSB: [place]O - DECREASES NECK - NB R Rot: MIN - NE L Rot: MOD - INCREASES NECK - NW Lumbar mvmt loss: flex - MIN - INCREASES BACK - NW ext - MOD - INCREASES BACK - (more content not included)... Normal [facility] 12 Lead EKGon 03-25-2024 12 Lead EKG [facility] Cardiovascular Services [address] [place] [address] 12 Lead EKG 03/25/24 1546 MR#: [id number] Acct: [id number] Name: FERNANDA HERNANDEZ Rep #: [id number] : 1980 44 From: Cedric Stevens MD Attending Dr: Status: DEP ER Ordering Dr: Kate Richardson DO Date: 03/25/24 Location: ED Sex: F C Admitted: Test Reason : CP Blood Pressure : */* mmHG Vent. Rate : 81 BPM Atrial Rate : 81 BPM P-R Int : 156 ms QRS Dur : 90 ms QT Int : 390 ms P-R-T Axes : 54 22 28 degrees QTcB Int : 453 ms Normal sinus rhythm Normal ECG When compared with ECG of 13-Sep-2022 16:10, No significant change was found Confirmed by Cedric Stevens ([id number]), deputy editor in chief DON FLETCHER ([id number]) on 03/29/2024 9:30:06 AM Referred By: Confirmed By: Cedric Stevens 03/29/24 0930 Date Cedric Stevens MD CC: Dr. Kate Richardson DO; OG Snyder Signed Normal [facility] Basic Metabolic Profile (BMP )on 03-25-2024 BUN/CRE 14.6 RATIO Normal 10-20 [facility] Comment on above: Order Comment: 1Y Performed By: #### L 500.2500, L501.5425, L100.0100 ####[facility] [address] [place], [address] CA,Total 9.0 mg/dL Normal 8.5-10.1 [facility] Comment on above: Order Comment: 1Y Performed By: #### L 500.2500, L501.5425, L100.0100 ####[facility] [id number], [address] Chloride [Moles/Vol] 108 mmol/L High 98-107 [facility] Comment on above: Order Comment: 1Y Performed By: #### L 500.2500, L501.5425, L100.0100 ####[facility] [address] [place], [address] CO2 [Moles/Vol] 26.0 mmol/L Normal 21.0-32.0 [facility] Comment on above: Order Comment: 1Y Performed By: #### L 500.2500, L501.5425, L100.0100 ####[facility] [address] [place], [address] Creatinine [Mass/Vol] 0.82 mg/dL Normal 0.55-1.02 [facility] Comment on above: Order Comment: 1Y Result Comment: The validity of the calculated GFR GFRAA in patients over 70 years has not been determined. Clinical correlation is essential. Performed By: #### L 500.2500, L501.5425, L100.0100 ####[facility] [address] [place], [address] ECRCL 103.07 ml/min Normal [facility] Comment on above: Order Comment: 1Y Performed By: #### L 500.2500, L501.5425, L100.0100 ####[facility] [address] [place], [address] EST GFR - AA 97 mL/min Normal >60 [facility] Comment on above: Order Comment: 1Y Result Comment: Afri can Turkish GFR Calc Performed By: #### L 500.2500, L501.5425, L100.0100 ####[facility] [address] [place], [address] GAP 6 Normal 5-15 [facility] Comment on above: Order Comment: 1Y Performed By: #### L 500.2500, L501.5425, L100.0100 ####[facility] [id number] [place], [address] GFR/1.73 sq M.predicted among non-blacks MDRD (S/P/Bld) [Vol rate/Area] 80 mL/min/{1.73_m2} Normal >60 [facility] Comment on above: Order Comment: 1Y Result Comment: Non- GFR Calc Performed By: #### L 500.2500, L501.5425, L100.0100 ####[facility] [address] [place], [address] Glucose [Mass/Vol] 93 mg/dL Normal 74-106 [facility] Comment on above: Order Comment: 1Y Performed By: #### L 500.2500, L501.5425, L100.0100 ####[facility] [address] [place], [address] Potassium [Moles/Vol] 3.7 mmol/L Normal 3.5-5.1 [facility] Comment on above: Order Comment: 1Y Result Comment: Slig ht Hemolysis, Result may be falsely increased. Performed By: #### L 500.2500, L501.5425, L100.0100 ####[facility] [address] [place], [address] Sodium [Moles/Vol] 140 mmol/L Normal 136-145 [facility] Comment on above: Order Comment: 1Y Performed By: #### L 500.2500, L501.5425, L100.0100 ####[facility] [address] [place], [address] Urea nitrogen [Mass/Vol] 12 mg/dL Normal 7-18 [facility] Comment on above: Order Comment: 1Y Performed By: #### L 500.2500, L501.5425, L100.0100 ####[facility] [address] [place], [address] CBC W/Diff, Automatedon 11-0 1-4 Absolute Lymph 2.77 X10 3/uL Normal 0.83-4.51 [facility] Comment on above: Performed By: #### L 500.2500, L501.5425, L100.0100 ####[facility] [address] [place], [address] Absolute Neut 5.0 X10 3/uL Normal 2.0-7.7 [facility] Comment on above: Performed By: #### L 500.2500, L501.5425, L100.0100 ####[facility] [address] [place], [address] Basophils/100 WBC (Bld) 0.9 % Normal 0-1 [facility] Comment on above: Performed By: #### L 500.2500, L501.5425, L100.0100 ####[facility] [address] [place], [address] Eosinophils/100 WBC (Bld) 2.8 % Normal 0-5 [facility] Comment on above: Performed By: #### L 500.2500, L501.5425, L100.0100 ####[facility] [address] [place], [address] Erythrocyte distribution width (RBC) [Ratio] 12.8 % Normal 11.6-14.6 [facility] Comment on above: Performed By: #### L 500.2500, L501.5425, L100.0100 ####[facility] [address] [place], [address] Hematocrit (Bld) [Volume fraction] 43.2 % Normal 37-47 [facility] Comment on above: Performed By: #### L 500.2500, L501.5425, L100.0100 ####[facility] [address] [place], [address] Hemoglobin (Bld) [Mass/Vol] 14.2 g/dL Normal 12.0-15.0 [facility] Comment on above: Performed By: #### L 500.2500, L501.5425, L100.0100 ####[facility] [address] [place], [address] IG% 0.200 Normal 0.0-0.9 [facility] Comment on above: Result Comment: IG% - Immature Granulocytes (promyelocytes, myelocytes and metamyelocytes) > 1% indicates that a LEFT SHIFT is Present. Performed By: #### L 500.2500, L501.5425, L100.0100 ####[facility] [address] [place], [address] Lymphocytes/100 WBC (Bld) 32.0 % Normal 19-41 [facility] Comment on above: Performed By: #### L 500.2500, L501.5425, L100.0100 ####[facility] [address] [place], [address] MCH (RBC) [Entitic mass] 30.1 pg Normal 27.0-32.0 [facility] Comment on above: Performed By: #### L 500.2500, L501.5425, L100.0100 ####[facility] [address] [place], [address] MCHC (RBC) [Mass/Vol] 32.9 g/dL Normal 32-36 [facility] Comment on above: Performed By: #### L 500.2500, L501.5425, L100.0100 ####[facility] [address] [place], [address] MCV (RBC) [Entitic vol] 91.7 fL Normal 81-99 [facility] Comment on above: Performed By: #### L 500.2500, L501.5425, L100.0100 ####[facility] [address] [place], [address] Monocytes/100 WBC (Bld) 6.0 % Normal 0-10 [facility] Comment on above: Performed By: #### L 500.2500, L501.5425, L100.0100 ####[facility] [address] [place], [address] Neutrophils/100 WBC (Bld) 58.1 % Normal 47-70 [facility] Comment on above: Performed By: #### L 500.2500, L501.5425, L100.0100 ####[facility] [address] [place], [address] Nucleated RBC (Bld) [#/Vol] 0 10*3/uL Normal 0-5 [facility] Comment on above: Performed By: #### L 500.2500, L501.5425, L100.0100 ####[facility] [address] [place], [address] Platelet mean volume (Bld) [Entitic vol] 10.9 fL Normal 6.2-12.0 [facility] Comment on above: Performed By: #### L 500.2500, L501.5425, L100.0100 ####[facility] [address] [place], [address] Platelets (Bld) [#/Vol] 356 10*3/uL Normal 150-450 [facility] Comment on above: Performed By: #### L 500.2500, L501.5425, L100.0100 ####[facility] [address] [place], [address] RBC (Bld) [#/Vol] 4.71 10*6/uL Normal 4.2-5.4 [facility] Comment on above: Performed By: #### L 500.2500, L501.5425, L100.0100 ####[facility] [address] [place], [address] RDW SD 43.5 fl Normal 35.1-43.9 [facility] Comment on above: Performed By: #### L 500.2500, L501.5425, L100.0100 ####[facility] [address] [place], [address] WBC (Bld) [#/Vol] 8.7 10*3/uL Normal 4.4-11.0 [facility] Comment on above: Performed By: #### L 500.2500, L501.5425, L100.0100 ####[facility] [address] [place], [address] Chest 1 View (Portable)on Chest 1 View (Portable) [facility] Imaging Services [address] [facility] [address] [place] [address] Chest 1 View (Portable) MR#: [id number] Acct: [id number] Name: FERNANDA HERNANDEZ Rep #: [id number] : 1980 F 44 From: Shashi Jacobo MD PCP: OG Snyder Status: REG ER Study: Chest 1 View (Portable) Date of Exam: 03/25/24 Exam# [id number] Ordering Dr: Kate Richardson DO [id number] STUDY: X-RAY CHEST REASON FOR EXAM: Female, 44 years old. chest pain TECHNIQUE: AP portable COMPARISON: September 13, 2022 FINDINGS: The lungs are clear and expanded. There is no demonstrated pleural abnormality. Normal size heart. Normal mediastinum and sania. Normal visualized pulmonary arteries. Normal visualized aortic arch and descending thoracic aorta. Normal visualized thoracic spine. Normal visualized ribs, clavicles, and shoulders. There is no demonstrated abnormality of the visualized soft tissue structures of the upper abdomen. No significant change since prior exam RAD/Chest 1 View (Portable) IMPRESSION: Normal x-ray examination of the chest. Electronically Signed: Sahshi Jacobo MD at 16:34 EDT Reading Location ID and State: [facility] / ID Tel , Service support , CC: Dr. 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 Performed By: #### L 300.8000 ####[facility] [address] [facility] [place], [address] Emergency Department Summary on 03-25-2024 Emergency Department Summary [facility] Medical Records Department [address] [place] [address] Emergency Department Summary 03/25/24 MR#: [id number] Acct: [id number] Name: FERNANDA HERNANDEZ Rep #: [id number] : 1980 44 From: Kate Richardson DO PCP: OG Snyder Status:DEP ER Location: ED HPI History of Present Illness Chief Complaint: Chest Pain Narrative Narrative: Patient is a 44-year-old female with history of GERD, anxiety, depression, chronic back and neck pain presenting to the emergency department for chest pain, back pain, left arm pain. Patient states that she was in [employer] today when she started with some sharp back pain, that went to the chest, down her left arm. Patient states that it is a tightness like sensation, she denies any recent travel, she denies any nausea or vomiting. Patient states that this did concern her, and her PCP is now retiring and she has nobody to follow-up with. [facility] Medical History Osteoarthritis of left knee Back pain Difficulty balancing Knee pain Chest pain Migraines Fatigue Stomach ulcer Shoulder pain SOB (shortness of breath) Arthritis Home Medications ???Medication ???Instructions ???Recorded ???Last Taken ???Type norgestimate 0.25 mg-ethinyl 1 ea PO DAILY bcp 12/10/18 Unknown History estradiol 35 mcg tablet pantoprazole 40 mg tablet,delayed 80 tab PO QHS gerd 12/10/18 01/31/20 History release venlafaxine 150 mg 150 mg PO QHS #30 caps 03/21/19 Unknown History capsule,extended release 24 hr lamotrigine 25 mg tablet 50 mg PO QHS 04/12/19 Unknown History diclofenac sodium 1 % topical gel 4 g topical TID #100 grams 11/28/22 Unknown Rx (Voltaren Arthritis Pain) methylprednisolone 4 mg tablets in See Rx Instructions PO PER PKG DIR 12/29/23 Unknown Rx a dose pack (Medrol (Javan)) #21 tabs Allergy/AdvReac Type Severity Reaction Status Date / Time lansoprazole (From Prevacid) Allergy Unknown Verified 03/25/24 15:41 rabeprazole (From Aciphex) Allergy Hives Verified 03/25/24 15:41 Sulfa (Sulfonamide Allergy Unknown Verified 03/25/24 15:41 Antibiotics) omeprazole (From Prilosec) AdvReac Other Verified 03/25/24 15:41 omeprazole magnesium (From AdvReac Other Verified 03/25/24 15:41 Prilosec) Surgical History Gastric bypass status for obesity History of cholecystectomy History of tonsillectomy History of bilateral breast reduction surgery Social History Smoking Status: Former smoker ROS ROS ED ROS Narrative Constitutional: Negative for fever, chills, weight loss, weakness Eyes: Negative for vision loss, vision change, double vision ENT: Negative for any sore throat, ear pain, congestion Cardiovascular: Negative for any palpitations. Positive for chest pain, tightness Respiratory: Negative for any cough, sputum production, hemoptysis, dyspnea, dyspnea on exertion, orthopnea Gastrointestinal: Negative for any abdominal pain, nausea, vomiting, diarrhea, constipation, blood in stool, blood in vomit : Negative for any urinary frequency, dysuria, retention, blood in urine Muscle skeletal: Negative for any neck pain, back pain. Positive pain down the left arm Neurological: Negative for any headache, syncope, dizziness Skin: Negative for any rashes, itching, abrasions, lacerations Psychiatric: Negative for any depression, anxiety, stress, suicidal ideation, homicidal ideation Hematologic: Negative for any excessive bruising, easy bleeding EXAM Physical Exam Narrative Exam Narrative: Vital signs reviewed. HEET: Head normocephalic atraumatic, TMs clear bilaterally. Posterior pharynx is clear, moist mucous membranes. Nares clear bilaterally. Neck: Supple with no lymphadenopathy or tenderness. No signs of meningismus. Cardiac: Regular rate and rhythm no murmurs gallops or rubs, equal peripheral pulses bilaterally. Respiratory: Lungs clear to auscultation bilaterally. No chest tenderness. Abdomen: Soft, nontender, nondistended. No abdominal bruit or pulsatile masses. No hepatosplenomegaly Extremities: No peripheral edema, no signs of gross trauma or deformity. Active full range of motion of all extremities. Neuro: Cranial nerves II through XII intact, no focal neurological deficits. Skin: Clean dry and intact with no rash, purpura, petechiae, vesicles or pustules. Backs/flank: No CVA tenderness, no midline spinal tenderness, no deformity. Psych: Normal mood and affect. No SI, HI or acute psychosis. Const Vital Signs: 03/25/24 15:41 03/25/24 16:01 03/25/24 16:01 Temperature 97.2 F L Temperature Source Temporal Pulse Rate 81 Respiratory Rate 18 Respiratory Effort Normal Non-Labored Blood Pre (more content not included)... Normal [facility] L501.4020on 03-25-2024 TROPONIN-I HS 4 pg/mL Normal 3.0-54.0 [facility] Comment on above: Result Comment: Sanjeev pruett Note: New Test Units and Gender Specific Reference Ranges. For more information see Policy Stat Procedure Scotts High Sensitivity Troponin (TNIH) and attachments. Performed By: #### L 501.4020 #### [facility] [place], [address] L501.5425on 03-25-2024 TROPONIN-I HS 3 pg/mL Normal 3.0-54.0 [facility] Comment on above: Order Comment: 1Y Result Comment: Sanjeev pruett Note: New Test Units and Gender Specific Reference Ranges. For more information see Policy Stat Procedure Scotts High Sensitivity Troponin (TNIH) and attachments. Performed By: #### L 500.2500, L501.5425, L100.0100 ####[facility] [address] [place], [address] CNOVon 02-15-2024 CNOV Office Visit (GENSWS ) FERNANDA HERNANDEZ ([id number]) 1980 F Date Time Provider Department 02/15/24 9:30 AM ASHLEE LEE GENSWS During your visit today, we recorded the following information about you: Ashlee Lee APRN.CNP 02/15/2024 9:42 AM Signed FOLLOW UP VISIT - ENDOSCOPY Fernanda Rosales David 1980 [id number] REFERRING PHYSICIAN: No referring provider defined for this encounter. Fernanda Hernandez is a patient I am following for positive iFOBT. Dr. Gonzalez performed lower endoscopy on 02/04/24. Findings: The colon cleansing preparation was suboptimal, such that lesions 1 cm smaller may be missed. There was no evidence of any masses, polyps, or lesions in the right colon. Because the patient's complaint throughout the colon, random mucosal biopsies were taken using cold grasper forceps. There was no evidence of any masses, polyps, lesions in the right colon. There was no evidence of any masses, polyps, or lesions in transverse colon. There was no evidence of any masses, polyps, or lesions in the left colon. There was no evidence of any masses, polyps, or lesions in the sigmoid colon. There was no evidence of any masses or polyps in the rectum. Retroflexed view in the rectum revealed hemorrhoids, but no active inflammation or bleeding. Digital examination of the anal canal revealed no palpable masses. PATHOLOGY FINAL DIAGNOSIS A. Colon, random biopsies: - Benign colonic mucosa with focal features suggesting mild melanosis coli. Can be caused by anthraquinone, such as senna, aloe, rhubarb, and frangula The patient notes no complaints since the procedure. - Diarrhea has resolved. VITALS: There were no vitals taken for this visit. General: patient is alert, cooperative, pleasant and in no acute distress On examination, the abdomen is benign. Assessment ASSESSMENT/PLAN: 1. Diarrhea, unspecified type - ICD9: 787.91, ICD10: R19.7 The operative findings and pathology report were reviewed with the patient, and the patient has had the opportunity to ask questions and have questions answered. If the patient notes any problems or changes in bowel function, the patient should contact me immediately. Otherwise I recommend follow up endoscopy in 10 years. HM updated and recall letter generated. Discussed treatment plan and patient voices understanding. Patient's questions answered appropriately. Medications and potential side effects were discussed and patient voices understanding. Return to the office as scheduled or as needed for worsening/no improvement. Ashlee Lee APRN.RACHID Allergies As of Date: 02/15/2024 Noted Allergy Reaction ACIPHEX (RABEPRAZOLE SODIUM) 07/09/2016 2 - Rash ENTEX PSE (PSEUDOEPHEDRINE-GUAIFE* Comments: INSOMNIA NEXIUM (ESOMEPRAZOLE MAGNESIUM) 07/11/2016 14 - Other: See Comments Comments: Made acid reflux worse PREVACID (LANSOPRAZOLE) 03/06/2005 Comments: HEADACHE PRILOSEC (OMEPRAZOLE) 03/06/2005 Comments: HEADACHE SULFA (SULFONAMIDE ANTIBIOTICS) 03/06/2005 2 - Rash WELLBUTRIN (BUPROPION HCL) 05/08/2014 8 - GI Upset Date Reviewed: 02/15/2024 Reviewed by: Ashlee Lee APRN.AGENCY OWNER - Fully Assessed Reason for Visit: Follow Up [171] Cmt: Review colonoscopy results. Primary Visit Diagnosis:Diarrhea, unspecified type [R19.7] Prescriptions as of 02/15/2024 - norgestimate 0.25 mg-ethinyl estradiol 35 mcg (TAMARA) 0.25-35 mg-mcg per tablet Take 1 tablet by mouth once daily. Take active pills only. No inactive week. - DULoxetine (CYMBALTA) 30 mg capsule Take 1 capsule by mouth once daily. - lamoTRIgine (LAMICTAL) 200 mg tablet Take 1 tablet by mouth daily at bedtime. - MAGNESIUM GLYCINATE ORAL Take 200 mg by mouth once daily. - cyclobenzaprine (FLEXERIL) 10 mg tablet Take 1 tablet by mouth three times a day as needed for muscle spasm. - meclizine (ANTIVERT) 25 mg tab Take 1 tablet by mouth three times a day as needed (vertigo). - ondansetron orally disintegrating (ZOFRAN ODT) 4 mg disintegrating tablet Take 1 tablet by mouth every 6 hours as needed for nausea/vomiting. - gabapentin (NEURONTIN) 100 mg capsule Take 1 capsule by mouth three times a day for 90 days. - Multivitamin capsule Take 1 capsule by mouth once daily. - BIOTIN, BULK, MISC - cholecalciferol, vitamin D3, (VITAMIN D3 ORAL) Take by mouth. - ascorbic acid (VITAMIN C ORAL) Take by mouth. Meds Comments as of 07/16/2007: All medications have been reviewed July 16, 2007 Cher Andre Rn Problem List As Of Date 02/15/2024 Noted Resolved Abdominal pain, epigastric [R10.13] 04/02/2005 03/12/2015 Acute gastritis without mention of hemorrhage [*04/11/2005 05/07/2015 Adjustment disorder with depressed mood [F43.21]02/02/2007 09/15/2019 DECREASED MOVMT-ANTEPARTUM [O36.8190] 01/20/2008 05/12/2008 Carbuncle and furuncle of trunk (more content not included)... Normal [facility] CNOVon 02-08-2024 CNOV Office Visit (OBGYWM ) FERNANDA HERNANDEZ ([id number]) 1980 F Date Time Provider Department 02/08/24 9:30 AM DEBORAH WHITTAKER OBGYWM During your visit today, we recorded the following information about you: Blood pressure Weight Height 130/76 108.4 kg 1.575 m Deborah Whittaker APRN.CNP 02/08/2024 10:05 AM Signed Statistical Clerk offered: Patient declines. Fernanda is a 43 year old who presents for an annual gynecologic exam without complaints. Menses: no menses - continuous OCPs. Contraception: combined hormonal contraceptives HPV vaccine: No Last Pap: 02/13/2023 normal HPV: 02/07/2023 negative History of abnormal pap: Yes Last mammogram: 2023normal Sexually active: No OB History T0 L1 SAB0 IAB0 Ectopic0 Multiple0 Live Births0 Infant Babysitter History LMP: 08/28/2020 (Approximate), Drug Induced Amenorrhea Age at Menarche: Age at First : Age at Menopause: Infant Babysitter History Comments: Sexual Activity: Not Currently; Male Contraception: Pill PAST MEDICAL HISTORY Diagnosis Date Delayed emergence from general anesthesia Fibromyalgia 08/20/2016 GERD (gastroesophageal reflux disease) 03/12/2009 Hiatal hernia Hypoglycemia, unspecified Mental disorder anxiety and depression Migraine without aura 2001 Morbid obesity (HCC) Normal cardiac stress test 01/23/2012 PONV (postoperative nausea and vomiting) Sleep apnea Snoring Unspecified prophylactic or treatment measure PAST SURGICAL HISTORY Procedure Laterality Date COLONOSCOPY W/BIOPSY SINGLE/MULTIPLE 12/14/2018 EGD 01/31/2020 ESOPHAGOGASTRODUODENOSCOPY TRANSORAL DIAGNOSTIC 04/11/2005 EGD ESOPHAGOGASTRODUODENOSCOPY TRANSORAL DIAGNOSTIC 03/06/2017 EGD GASTRIC BYPASS, TATI-EN-Y 11/08/2020 w/ Lap hiatal hernia repair LAP REPAIR, PARAESOPHAGEAL HIATAL HERNIA 11/08/2020 LAPAROSCOPY SURG CHOLECYSTECTOMY 03/21/2016 REDUCTION OF LARGE BREAST 2014 TONSILLECTOMY AND ADENOIDECTOMY AGE 11/> 2002 DR. EASTMAN FAMILY HISTORY Problem Relation Age of Onset Arthritis Mother Diabetes Mother Headache Father Lipids Father Headache Sister Diabetes Maternal Grandfather Stroke Maternal Grandfather Alcohol/Drug Paternal Grandmother ETOH Alcohol/Drug Paternal Grandfather ETOH Cancer Paternal Grandfather LUNG Alcohol/Drug Paternal Aunt ETOH Alcohol/Drug Paternal Uncle ETOH Cancer Paternal Uncle LUNG SOCIAL HISTORY Social History Tobacco Use Smoking status: Former Current packs/day: 0.00 Average packs/day: 0.5 packs/day for 12.0 years (6.0 ttl pk-yrs) Types: Cigarettes Start date: 07/22/2001 Quit date: 07/22/2013 Years since quittin.5 Smokeless tobacco: Never Vaping Use Vaping status: Never Used Substance Use Topics Alcohol use: Not Currently Comment: Rarely Drug use: No REVIEW OF SYSTEMS Abdomen: No abdominal pain, nausea, vomiting, or constipation. No bloating, early satiety, indigestion, or increased flatulence. +diarrhea Bladder: No dysuria, gross hematuria, urinary frequency, urinary urgency, or incontinence. Breast: No breast lumps, nipple d/c, overlying skin changes, redness or skin retraction. Allergies and current medication updated:Yes SENSITIVE EXAM: The sensitive examination was discussed with the Patient or Patient's Authorized Door Frame Builder. As applicable, any other physician, advance practice provider, medical student, or other health professional student that will be observing or involved in the sensitive examination for educational or training purposes was discussed with the Patient or Authorized Door Frame Builder. The Patient or Authorized Door Frame Builder has agreed to proceed with the sensitive examination. (Sensitive examination includes inspection and/or palpation of the breasts, pelvis, prostate and anorectal regions). EXAM: BP 130/76 Ht 5' 2 (1.58m) Wt 239 lb (108.4kg) LMP 08/28/2020 BMI 43.70 kg/(m2). GENERAL: pleasant, female in no apparent distress HEENT: Normocephalic, atraumatic, mucus membranes moist, and no lesions NECK: Supple, full range of motion, no adenopathy, and thyroid normal DERMATOLOGY: Normal, without lesions, non-icteric, and non-hirsute BREAST: soft, non-tender, symmetric, no dominant mass, normal nipple-areolar complex, no lymphadenopathy, and no nipple discharge CHEST: Normal inspiratory effort ABDOMEN: soft, non-tender, and no masses PELVIC: external genitalia normal, normal Bartholin's glands, urethra, [place]'s glands, no vulvar lesions, no cervical lesions, good vaginal support, physiologic discharge present, normal appearing perineal body and perianal region BIMANUAL: uterus normal size, shape and consistency, no adnexal masses, and non-tender RECTOVAGINAL: deferred. NEURO: alert and oriented x3,exam grossly non-focal EXTREMITIES: normal ASSESSMENT/PLAN: 1) Health maintenance: Pap/HPV up to oly (more content not included)... Normal [facility] ANES POSTPROC EVALon 024 ANES POSTPROC EVAL HNO ID: [id number] Author: SAILAJA GOINS MD Service: Anesthesiology Author Type: Physician Type: Anesthesia Postprocedure Evaluation Filed: 02/04/2024 09:56 Note Text: POST ANESTHESIA EVALUATION NOTE : 1980 Procedure Summary Date: 02/04/24 Room / Location: SURGERY Anesthesia Start: 914 Anesthesia Stop: Procedure: COLONOSCOPY DIAGNOSTIC Diagnosis: Diarrhea, unspecified type Occult blood positive stool Diarrhea, unspecified type Occult blood positive stool Scheduled Providers: Antonietta Gonzalez MD; Sailaja Goins MD Responsible Provider: Sailaja Goins MD Anesthesia Type: MAC ASA Status: 3 Anesthesia Type: MAC Last Vitals Vitals Value Taken Time BP 95/84 02/04/24 0955 Temp 98.8 02/04/24 0955 Pulse 68 02/04/24 0955 Resp 18 02/04/24 0955 SpO2 100 02/04/24 0955 Post Anesthesia Patient Status Patient Evaluation: bedside. Anticipated Disposition: phase 2 then home. Neurological Status: aware and responsive. Pulmonary Status: breathing comfortably on room air Airway Control: returned to baseline unsupported. Cardiovascular Status: stable. Pain Management: clinically adequate Postoperative Hydration: acceptable. Intraoperative Events: no significant anesthesia events Post Operative Nausea/Vomiting Status: no significant post operative nausea or vomiting Recommendation: continue current plan of care. Anesthesia Observations No Documentation SIGNATURE: Sailaja Goins MD PATIENT NAME: Fernanda Hernandez DATE: February 04, 2024 TIME: 9:55 AM CSN: [id number] [facility] ANES PRE-OPon 02-04-2024 ANES PRE-OP HNO ID: [id number] Author: SAILAJA GOINS MD Service: Anesthesiology Author Type: Physician Type: Anesthesia Preprocedure Evaluation Filed: 02/04/2024 09:12 Note Text: ANESTHESIOLOGY DAY OF SURGERY NOTE : 1980 Procedure Information Date/Time: 02/04/24914 Scheduled providers: Antonietta Gonzalez MD; Sailaja Goins MD Procedure: COLONOSCOPY DIAGNOSTIC Location: [facility] SURGERY Estimated body mass index is 42.69 kg/m? as calculated from the following: Height as of 05/19/23: 160 cm (5' 3). Weight as of 01/15/24: 109.3 kg (241 lb). Most recent hematocrit and potassium results: Hematocrit 40.9 11/13/2023 Potassium 4.0 11/13/2023 Relevant Problems No relevant active problems I - PHYSICAL EVALUATION AIRWAY Patient intubated: No. Tracheostomy tube not present Mallampati: III. TM distance: >3 FB. Neck ROM: full ROM without neurological symptoms. Mouth opening: adequate. Short neck: yes. Thick neck: yes Mendoza present: no Microretrognathia/Micronagt hia/Recessed Chin: No DENTAL Dental findings: teeth intact. Additional exam findings: yes. CARDIOVASCULAR Normal cardiovascular observations. PULMONARY Normal pulmonary observations. II - ANESTHESIA PLAN ASA Score: 3 Anesthetic Plan: MAC The patient is not a current smoker. NPO Status: adequate Beta Hugh Monitoring Plan Monitoring plan: standard ASA. Post Procedure Analgesic Plan Postoperative analgesic plan: parenteral or oral opioids. Informed Consent Anesthetic risks, benefits, alternatives, personnel and consent discussed: yes. Patient / Responsible Constitution Party agrees to proceed: yes Patient / Surrogate agrees to blood products: Yes DNR status not reviewed with patient and/or family prior to surgery. Significant changes in the patient condition since the History and Physical, not otherwise documented in primary service progress note: no. Potential Anesthesia issues that may suggest increased risk of complications or contraindication to planned procedure: none. Vitals Value Taken Time BP 129/101 02/04/24 0841 Pulse 71 02/04/24 0850 Resp 11 02/04/24 0850 Temp 36.6 ?C (97.9 ?F) 02/04/24 0850 SpO2 100 % 02/04/24 0850 Vitals shown include unfiled device data. Facility-Administered Medications as of 02/04/2024 Medication Dose Route Frequency - lidocaine (PF) 10 mg/mL (1 %) 1-2 mg injection (XYLOCAINE) 0.1-0.2 mL INTRADERMAL PRN - lactated ringers iv infusion 75 mL/hr INTRAVENOUS CONTINUOUS Outpatient Medications as of 02/04/2024 Medication Sig - DULoxetine (CYMBALTA) 30 mg capsule Take 1 capsule by mouth once daily. - lamoTRIgine (LAMICTAL) 200 mg tablet Take 1 tablet by mouth daily at bedtime. - norgestimate 0.25 mg-ethinyl estradiol 35 mcg (TAMARA) 0.25-35 mg-mcg per tablet Take 1 tablet by mouth once daily. Take active pills only. No inactive week. - MAGNESIUM GLYCINATE ORAL Take 200 mg by mouth once daily. - cyclobenzaprine (FLEXERIL) 10 mg tablet Take 1 tablet by mouth three times a day as needed for muscle spasm. - meclizine (ANTIVERT) 25 mg tab Take 1 tablet by mouth three times a day as needed (vertigo). - ondansetron orally disintegrating (ZOFRAN ODT) 4 mg disintegrating tablet Take 1 tablet by mouth every 6 hours as needed for nausea/vomiting. - gabapentin (NEURONTIN) 100 mg capsule Take 1 capsule by mouth three times a day for 90 days. - Multivitamin capsule Take 1 capsule by mouth once daily. - BIOTIN, BULK, MISC - cholecalciferol, vitamin D3, (VITAMIN D3 ORAL) Take by mouth. - ascorbic acid (VITAMIN C ORAL) Take by mouth. I have interviewed and examined the patient. I have reviewed the medical record and/or the pre-anesthesia evaluation, pertinent labs, and test results. This contains updated information obtained within 48 hours of Surgery/Procedure. SIGNATURE: Sailaja Goins MD PATIENT NAME: Fernanda Hernandez DATE: February 04, 2024 TIME: 9:11 AM CSN: [id number] [facility] BRIEF OP NOTon 02-04-2024 BRIEF OP NOT HNO ID: [id number] Author: ANTONIETTA GONZALEZ MD Service: General Surgery Author Type: Physician Type: Brief Op Note Filed: 02/04/2024 09:50 Note Text: BRIEF OPERATIVE NOTE SURGERY DATE: 02/04/2024 Incision/Procedure Start Time: 9:27 cecal time: 9:35 Incision Close/Procedure End Time: 9:47 Surgeon(s)/Proceduralist(s) and Brim Blocker(s): kuldip Procedures: Colonoscopy with random mucosal biopsies Anesthesia: MAC Findings: normal colon except for hemorrhoids, suboptimal colon cleansing preparation Estimated Blood Loss: minimal Specimens: random mucosal biopsies of colon Complications: None Closure Technique: Non-primary Preop Diagnosis: diarrhea Postop Diagnosis: normal colon except for hemorrhoids Patient was accompanied to the next level of care by a licensed practitioner from the surgical team pending completion of this brief op note (or operative note) SIGNATURE: Antonietta Gonzalez MD PATIENT NAME: Fernanda Hernandez DATE: February 04, 2024 TIME: 9:49 AM Csn: [id number] [facility] HISTORY PHYSICALon HISTORY PHYSICAL HNO ID: [id number] Author: ANTONIETTA GONZALEZ MD Service: General Surgery Author Type: Physician Type: H&P Filed: 02/04/2024 08:09 Note Text: HISTORY AND PHYSICAL Fernanda Hernandez : 1980 REFERRING PHYSICIAN: Faith Deluna [address] [place] [id number] CHIEF COMPLAINT: Patient presents with: Colon consult HPI: Fernanda is a 43 year old female referred for endoscopy. Fernanda notes positive occult stool test. She had stool studies completed by PCP which all returned negative except was positive for blood. She was seen by her PCP for diarrhea starting November 01, 2023. When she was fluctuating between constipation and diarrhea that she is having bloating and nausea. Used to follow with GI but has not seen them in 2 years. History of GERD and IBS and gastric bypass surgery in 2020 Was instructed to increase fiber, water, and start using MiraLAX- She did not start this yet but states her bowels have returned back to normal. Abdominal x-ray on 12/16/2023 shows moderate amount of stool Patient denies any weight changes, visible blood in stools, black tarry stools or abdominal pain. Denies family history of colon issues. Fernanda notes history upper GI complaints. She refers she used to suffer from reflux and took medication, however is no longer taking meds and has no reflux symptoms. Fernanda has undergone prior endoscopy. Fernanda underwent upper endoscopy at [facility] with Dr. Gonzalez on 01/2020 for preop for bariatric surgery EGD Impression: -Normal first portion of the duodenum and second portion of the duodenum -Erythematous mucosa in the antrum, biopsied -Medium size hiatal hernia. Biopsied Pathology: A. Gastric antrum, biopsy: Chronic gastritis. B. Gastroesophageal junction, biopsy: Gastric mucosa with mild chronic inflammation. No evidence of goblet cell metaplasia Fernanda also underwent colonoscopy 11/[address] Gonzalez Colonoscopy Impression: -Nonbleeding internal hemorrhoids -Biopsies were taken with cold forceps from the entire colon for evaluation of microscopic colitis Pathology: Colon, random biopsy Fragments of colonic mucosa, no pathologic diagnosis CURRENT MEDICATIONS Current Outpatient Medications Medication Sig meclizine (ANTIVERT) 25 mg tab Take 1 tablet by mouth three times a day as needed (vertigo). lamoTRIgine (LAMICTAL) 200 mg tablet Take 1 tablet by mouth daily at bedtime. ondansetron orally disintegrating (ZOFRAN ODT) 4 mg disintegrating tablet Take 1 tablet by mouth every 6 hours as needed for nausea/vomiting. gabapentin (NEURONTIN) 100 mg capsule Take 1 capsule by mouth three times a day for 90 days. metFORMIN ER (GLUCOPHAGE XR) 500 mg 24 hr tablet Take 4 tablets by mouth daily with dinner. norgestimate 0.25 mg-ethinyl estradiol 35 mcg (TAMARA) 0.25-35 mg-mcg per tablet Take 1 tablet by mouth once daily. Take active pills only. No inactive week. venlafaxine (EFFEXOR) 75 mg tablet Take 1 tablet by mouth two times a day. cyclobenzaprine (FLEXERIL) 10 mg tablet Take 1 tablet by mouth three times a day as needed for muscle spasm. iron polysaccharide complex (FERREX-150) 150 mg iron capsule Take 1 capsule by mouth twice daily. Multivitamin capsule Take 1 capsule by mouth once daily. BIOTIN, BULK, MISC cholecalciferol, vitamin D3, (VITAMIN D3 ORAL) Take by mouth. ascorbic acid (VITAMIN C ORAL) Take by mouth. venlafaxine (EFFEXOR) 37.5 mg tablet Take 1 tablet by mouth two times a day. take with 75mg tablet in the morning and in the evening. (Patient not taking: Reported on 06/16/2023) ARIPiprazole (ABILIFY) 2 mg tablet Take 1 tablet by mouth once daily. No current facility-administered medications for this visit. ALLERGIES: Aciphex [Rabeprazole Sodium], Entex Pse [Pseudoephedrine-Guaifenesi n], Nexium [Esomeprazole Magnesium], Prevacid [Lansoprazole], Prilosec [Omeprazole], Sulfa (Sulfonamide Antibiotics), and Wellbutrin [Bupropion Hcl] PAST MEDICAL HISTORY PAST MEDICAL HISTORY No date: Delayed emergence from general anesthesia 08/20/2016: Fibromyalgia 03/12/2009: GERD (gastroesophageal reflux disease) No date: Hypoglycemia, unspecified No date: Mental disorder Comment: anxiety and depression 2001: Migraine without aura No date: Morbid obesity (HCC) 01/23/12: Normal cardiac stress test No date: PONV (postoperative nausea and vomiting) No date: Sleep apnea No date: Snoring No date: Unspecified prophylactic or treatment measure PAST SURGICAL HISTORY PAST SURGICAL HISTORY 12/14/2018: COLONOSCOPY W/BIOPSY SINGLE/MULTIPLE 01/31/2020: EGD 04/11/2005: ESOPHAGOGASTRODUODENOSCOPY TRANSORAL DIAGNOSTIC Comment: EGD 03/06/2017: ESOPHAGOGASTRODUODENOSCOPY TRANSORAL DIAGNOSTIC Comment: EGD 11/08/2020: GASTRIC BYPASS, TATI-EN-Y Comment: w/ Lap hiatal hernia repair 11/08/2020: LAP REPAIR, PARAESOPHAGEAL HIATAL HERNIA 03/21/2016: LAPAROSCOPY SURG CHOLECYSTECTOMY 2013: REDUCTION OF LARGE BENJI (more content not included)... [facility] OPERATIVE NOon 02-04-2024 OPERATIVE NO HNO ID: [id number] Author: ANTONIETTA GONZALEZ MD Service: General Surgery Author Type: Physician Type: Operative Report Filed: 02/05/2024 08:09 Note Text: [facility] - Operative Report - Saman HERNANDEZ FERNANDA S : 1980 AGE: 43. SEX: F PATIENT TYPE: O HOSP SVC: TANYA LOCATION: [facility] ATTENDING PHYSICIAN: Antonietta Gonzalez MD CSN NUMBER: [id number] DATE OF SURGERY/PROCEDURE: 02/04/2024 INCISION/PROCEDURE START TIME: 926 INCISION CLOSE/PROCEDURE END TIME: 946 PREOPERATIVE DIAGNOSIS: diarrhea POSTOPERATIVE DIAGNOSIS: diarrhea, hemorrhoids SURGEON: Antonietta Gonzalez MD HOSPITALITY JOB TITLES: No Additional Staff SURGERY/PROCEDURE: Colonoscopy with random mucosal biopsies. ANESTHESIA: Monitored anesthesia care. LOCATION: [facility]. INDICATIONS: Fernanda Hernandez is a 43-year-old female, who presents for diagnostic colonoscopy for complaints of diarrhea. She has been counseled on the risks of procedure including, but not limited to infection, bleeding, perforation of the GI tract, inability to complete the procedure, injury to any internal organs, etc. The patient understands and agrees to proceed. DESCRIPTION OF PROCEDURE: After informed consent was given, the patient was brought to the endoscopy suite. She was placed in the left lateral decubitus position. Appropriate time-out protocol was followed. The patient was given IV anesthesia by the anesthesia provider. The endoscope was lubricated and carefully inserted in the patient's anus and advanced into the rectum. It was then advanced into the sigmoid colon, then left colon, past splenic flexure into transverse colon, past hepatic flexure into the right colon, then into the cecum. The colon cleansing preparation were adequate. The cecum was identified by transillumination, confluence of teniae coli, identification of ileocecal valve, appendiceal orifice, and external palpation. The colonoscope was slowly retracted from this point to evaluate the entire colonic mucosal surface. The colon cleansing preparation was suboptimal, such that lesions 1 cm smaller may be missed. There was no evidence of any masses, polyps, or lesions in the right colon. Because the patient's complaint throughout the colon, random mucosal biopsies were taken using cold grasper forceps. There was no evidence of any masses, polyps, lesions in the right colon. There was no evidence of any masses, polyps, or lesions in transverse colon. There was no evidence of any masses, polyps, or lesions in the left colon. There was no evidence of any masses, polyps, or lesions in the sigmoid colon. There was no evidence of any masses or polyps in the rectum. Retroflexed view in the rectum revealed hemorrhoids, but no active inflammation or bleeding. The endoscope was removed intact. Digital examination of the anal canal revealed no palpable masses. The patient tolerated the procedure well and was brought to recovery in stable condition. ESTIMATED BLOOD LOSS: Minimal. SPECIMENS: Random mucosal biopsies throughout colon. COMPLICATIONS: None. Antonietta Gonzalez MD [id number] [facility] SURGICAL PATHOLOGYon 024 CASE REPORT [facility] Comment on above: Order Comment: Speci men Type: TISSUE SPECIMEN Ordering Facility: [facility] Address: [address] [place] [address] Result Comment: Surg ical Pathology Report Case: [id number] Authorizing Provider: Antonietta Gonzalez MD Collected: 02/04/2024 09:36 AM Ordering Location: [facility] SURGERY Received: 02/04/2024 02:30 PM Pathologist: Roc Pizarro MD Specimen: Colon, Biopsy, Random colon biopsies Performed By: #### S #### [facility] CLIA [id number] [address] CLINICAL HISTORY diarrhea [facility] Comment on above: Order Comment: Speci men Type: TISSUE SPECIMEN Ordering Facility: [facility] Address: [address] [place] [address] Performed By: #### S #### [facility] CLIA [id number] [address] FINAL DIAGNOSIS [facility] Comment on above: Order Comment: Speci men Type: TISSUE SPECIMEN Ordering Facility: [facility] Address: [address] [place] [address] Result Comment: Natalia fish, random biopsies: - Benign colonic mucosa with focal features suggesting mild melanosis coli. Performed By: #### S #### [facility] CLIA [id number] [address] FINAL PERFORMING LAB [facility] Comment on above: Order Comment: Speci men Type: TISSUE SPECIMEN Ordering Facility: [facility] Address: [address] [place] [address] Result Comment: Diag nostic interpretation performed at [facility], [address] [place] [address] CLIA# [id number] [employer] Operator: Roc Pizarro M.D. Performed By: #### S #### [facility] CLIA [id number] [address] GROSS DESCRIPTION [facility] Comment on above: Order Comment: Maria Teresa men Type: TISSUE SPECIMEN Ordering Facility: [facility] Address: [address] [place] [address] Result Comment: Natalia fish, Biopsy Received in formalin and designated random colon biopsies are multiple fragments of robb tissue with an aggregate measurement of 1.0 x 0.8 x 0.2 cm. The specimen is entirely submitted in cassette A1. KM February 05, 2024 12:10 PM Gross examination performed at [facility], [address] [place] [address] CLIA# [id number] Performed By: #### S #### [facility] CLIA [id number] [address] 02-03-2024 CNPN Telephone (GENSWS) FERNANDA HERNANDEZ ([id number]) 1980 F Date Time Provider Department 02/03/24 ANTONIETTA GONZALEZ During your visit today, we recorded the following information about you: Fara Friedman LPN 02/03/2024 2:02 PM Signed Patient instructed to contact office by Saman as she began GoLyte prep approximately 4 hours ago and has not yet moved her bowels. Patient was to check if there was any additional instructions. Please advise. CLAIRE Chester Amy M, MA 02/03/2024 4:21 PM Signed Patient called in concerned that she started her prep about 6 hours ago and has only had 1 bowel movement at about 3:15 pm and she had to strain to pass. She has been drinking chicken broth, coffee, water and apple cider. Stomach feels full and bloated. I spoke with FREDRICK Reardon in general surgery department. She advised to have patient continue with prep and push fluids. Prep will kick in eventually. She also advised to tell patient to make sure that her bowel movements are clear by morning, if they are not, she will need to contact the hospital and cancel. Patient given all of those instructions and verbalized understanding. Allergies As of Date: 02/03/2024 Noted Allergy Reaction ACIPHEX (RABEPRAZOLE SODIUM) 07/09/2016 2 - Rash ENTEX PSE (PSEUDOEPHEDRINE-GUAIFE* Comments: INSOMNIA NEXIUM (ESOMEPRAZOLE MAGNESIUM) 07/11/2016 14 - Other: See Comments Comments: Made acid reflux worse PREVACID (LANSOPRAZOLE) 03/06/2005 Comments: HEADACHE PRILOSEC (OMEPRAZOLE) 03/06/2005 Comments: HEADACHE SULFA (SULFONAMIDE ANTIBIOTICS) 03/06/2005 2 - Rash WELLBUTRIN (BUPROPION HCL) 05/08/2014 8 - GI Upset Date Reviewed: 02/02/2024 Reviewed by: Son Malcolm RN - Fully Assessed Reason for Visit: Patient Question [1477] Prescriptions as of 02/03/2024 - DULoxetine (CYMBALTA) 30 mg capsule Take 1 capsule by mouth once daily. - lamoTRIgine (LAMICTAL) 200 mg tablet Take 1 tablet by mouth daily at bedtime. - MAGNESIUM GLYCINATE ORAL Take 200 mg by mouth once daily. - norgestimate 0.25 mg-ethinyl estradiol 35 mcg (TAMARA) 0.25-35 mg-mcg per tablet Take 1 tablet by mouth once daily. Take active pills only. No inactive week. - cyclobenzaprine (FLEXERIL) 10 mg tablet Take 1 tablet by mouth three times a day as needed for muscle spasm. - meclizine (ANTIVERT) 25 mg tab Take 1 tablet by mouth three times a day as needed (vertigo). - ondansetron orally disintegrating (ZOFRAN ODT) 4 mg disintegrating tablet Take 1 tablet by mouth every 6 hours as needed for nausea/vomiting. - gabapentin (NEURONTIN) 100 mg capsule Take 1 capsule by mouth three times a day for 90 days. - Multivitamin capsule Take 1 capsule by mouth once daily. - BIOTIN, BULK, MISC - cholecalciferol, vitamin D3, (VITAMIN D3 ORAL) Take by mouth. - ascorbic acid (VITAMIN C ORAL) Take by mouth. Meds Comments as of 07/16/2007: All medications have been reviewed July 16, 2007 Cher Andre Rn Problem List As Of Date 02/03/2024 Noted Resolved Abdominal pain, epigastric [R10.13] 04/02/2005 03/12/2015 Acute gastritis without mention of hemorrhage [*04/11/2005 05/07/2015 Adjustment disorder with depressed mood [F43.21]02/02/2007 09/15/2019 DECREASED MOVMT-ANTEPARTUM [O36.8190] 01/20/2008 05/12/2008 Carbuncle and furuncle of trunk [L02.239, L02.2*05/12/2008 03/12/2015 GERD (gastroesophageal reflux disease) [K21.9] 03/12/2009 Lumbago [M54.50] 07/26/2009 Breakthrough bleeding with IUD [N92.1, Z97.5] 03/04/2012 03/18/2013 IUD migration [T83.32XA] 03/04/2012 03/18/2013 Tobacco abuse [Z72.0] 04/13/2012 07/22/2017 Unspecified prophylactic or treatment measure [* 03/12/2015 Morbid obesity (HCC) [E66.01] 03/14/2016 Fibromyalgia [M79.7] 08/20/2016 Paroxysmal hemicrania, 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] 08/20/2016 Cervical spinal stenosis [M48.02] 02/26/2017 Foraminal stenosis of cervical region [M48.02] 02/26/2017 Irritable bowel syndrome with diarrhea [K58.0] 01/25/2019 Cervicothoracic somatic dysfunction [M99.01] 01/25/2019 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 Author Type: Registered Nurse Type: Nursing Progress Note Filed: 02/02/2024 10:57 Note Text: Pre-Procedure Checklist Fernanda Hernandez [phone] (home) 1980 43 year old There is no height or weight on file to calculate BMI. Allergies: Aciphex [Rabeprazol* Rash Entex Pse [Pseudoep* Comment:INSOMNIA Nexium [Esomeprazol* Other: See Comments Comment:Made acid reflux worse Prevacid [Lansopraz* Comment:HEADACHE Prilosec [Omeprazol* Comment:HEADACHE Sulfa (Sulfonamide * Rash Wellbutrin [Bupropi* GI Upset Procedure: colonoscopy Date of Procedure: 02/04/24 Smoke: No Alcohol: No Street Drugs: No Diabetic: No Insulin: No Problems with Anesthesia (Self or Family?) No Electrical Assistant: no Saw ornithology teacher in the last 6 months? No Recent EKG/Cardiac Testing: No Chest pain in the last 6 months (<6 months cardiac clearance needed): No History of: Heart Attack/Stroke/Blood Clot?: no Shortness of Breath: No Asthma: No Inhalers: No Any Outstanding Consults?: No If yes, list: Additional Notes: [facility] FERNANDA HERNANDEZ ([id number]) 1980 F Date Time Provider Department 02/01/24 DAVON DOWNS PSYCST During your visit today, we recorded the following information about you: Ellie Kwong LPN 02/01/2024 8:39 AM Signed Spoke with patient confirming today's virtual visit at 10:30 AM. Ellie Kwong LPN Allergies As of Date: 02/01/2024 Noted Allergy Reaction ACIPHEX (RABEPRAZOLE SODIUM) 07/09/2016 2 - Rash ENTEX PSE (PSEUDOEPHEDRINE-GUAIFE* Comments: INSOMNIA NEXIUM (ESOMEPRAZOLE MAGNESIUM) 07/11/2016 14 - Other: See Comments Comments: Made acid reflux worse PREVACID (LANSOPRAZOLE) 03/06/2005 Comments: HEADACHE PRILOSEC (OMEPRAZOLE) 03/06/2005 Comments: HEADACHE SULFA (SULFONAMIDE ANTIBIOTICS) 03/06/2005 2 - Rash WELLBUTRIN (BUPROPION HCL) 05/08/2014 8 - GI Upset Date Reviewed: 01/15/2024 Reviewed by: Bettina Fuentes APRN.AGENCY OWNER - Fully Assessed Reason for Visit: Appointment [[id number]] Prescriptions as of 02/01/2024 - ARIPiprazole (ABILIFY) 2 mg tablet take 1 tablet by mouth every day - MAGNESIUM GLYCINATE ORAL Take 200 mg by mouth once daily. - norgestimate 0.25 mg-ethinyl estradiol 35 mcg (TAMARA) 0.25-35 mg-mcg per tablet Take 1 tablet by mouth once daily. Take active pills only. No inactive week. - cyclobenzaprine (FLEXERIL) 10 mg tablet Take 1 tablet by mouth three times a day as needed for muscle spasm. - meclizine (ANTIVERT) 25 mg tab Take 1 tablet by mouth three times a day as needed (vertigo). - lamoTRIgine (LAMICTAL) 200 mg tablet Take 1 tablet by mouth daily at bedtime. - ondansetron orally disintegrating (ZOFRAN ODT) 4 mg disintegrating tablet Take 1 tablet by mouth every 6 hours as needed for nausea/vomiting. - gabapentin (NEURONTIN) 100 mg capsule Take 1 capsule by mouth three times a day for 90 days. - venlafaxine (EFFEXOR) 75 mg tablet Take 1 tablet by mouth two times a day. - Multivitamin capsule Take 1 capsule by mouth once daily. - BIOTIN, BULK, MISC - cholecalciferol, vitamin D3, (VITAMIN D3 ORAL) Take by mouth. - ascorbic acid (VITAMIN C ORAL) Take by mouth. Meds Comments as of 07/16/2007: All medications have been reviewed July 16, 2007 Cher Andre Rn Problem List As Of Date 02/01/2024 Noted Resolved Abdominal pain, epigastric [R10.13] 04/02/2005 03/12/2015 Acute gastritis without mention of hemorrhage [*04/11/2005 05/07/2015 Adjustment disorder with depressed mood [F43.21]02/02/2007 09/15/2019 DECREASED MOVMT-ANTEPARTUM [O36.8190] 01/20/2008 05/12/2008 Carbuncle and furuncle of trunk [L02.239, L02.2*05/12/2008 03/12/2015 GERD (gastroesophageal reflux disease) [K21.9] 03/12/2009 Lumbago [M54.50] 07/26/2009 Breakthrough bleeding with IUD [N92.1, Z97.5] 03/04/2012 03/18/2013 IUD migration [T83.32XA] 03/04/2012 03/18/2013 Tobacco abuse [Z72.0] 04/13/2012 07/22/2017 Unspecified prophylactic or treatment measure [* 03/12/2015 Morbid obesity (HCC) [E66.01] 03/14/2016 Fibromyalgia [M79.7] 08/20/2016 Paroxysmal hemicrania, 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] 08/20/2016 Cervical spinal stenosis [M48.02] 02/26/2017 Foraminal stenosis of cervical region [M48.02] 02/26/2017 Irritable bowel syndrome with diarrhea [K58.0] 01/25/2019 Cervicothoracic somatic dysfunction [M99.01] 01/25/2019 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*06/09/2019 11/21/2021 Panic disorder without agoraphobia [F41.0] 06/09/2019 11/21/2021 Anxiety disorder [F41.9] 09/15/2019 Polypharmacy [Z79.899] 09/23/2019 CLIFTON (obstructive sleep apnea) [G47.33] 12/28/2019 Acute pain of left shoulder [M25.512] 04/23/2020 Hiatal hernia [K44.9] 11/09/2020 11/09/2020 Major depressive disorder, recurrent episode, m*11/21/2021 Encounter Status:Closed by DAVON DOWNS on 02/01/24 [facility] Office Visit Reporton 2023 Office Visit Report [facility] [address] [place] [address] OFFICE VISIT Date of Service: 01/26/24 MR#: [id number] Acct: [id number] Patient: FERNANDA HERNANDEZ Rep #: [id number] 12 : 1980 Provider: OG Nuno Age/Sex: 43/F Location: [facility] Status: Signed Employer Purchased Covid Test Note: Patient here today for Covid Testing, requested by their Employer. Assessment and Plan Assessment and Plan Orders: Orders POC Cepheid Covid, FluAB, RSV Today 01/26/24825 Date Eddie Tariq Signature: Date (if applicable) CC: [facility] 01-18-2024 [facility] Telephone (FAMPWS) FERNANDA HERNANDEZ Bobby ([id number]) 1980 F Date Time Provider Department 01/18/24 Mandie GARCIA [facility] During your visit today, we recorded the following information about you: Nargis Doyle MA 01/18/2024 1:27 PM Signed Type of form: [facility] Form received via fax When form is completed, Fax form to [phone] Form has been forwarded to Nurse Practitioner: CAROL Cintron Tara, LPN 01/27/2024 4:59 PM Signed These were completed and faxed as requested. Allergies As of Date: 01/18/2024 Noted Allergy Reaction ACIPHEX (RABEPRAZOLE SODIUM) 07/09/2016 2 - Rash ENTEX PSE (PSEUDOEPHEDRINE-GUAIFE* Comments: INSOMNIA NEXIUM (ESOMEPRAZOLE MAGNESIUM) 07/11/2016 14 - Other: See Comments Comments: Made acid reflux worse PREVACID (LANSOPRAZOLE) 03/06/2005 Comments: HEADACHE PRILOSEC (OMEPRAZOLE) 03/06/2005 Comments: HEADACHE SULFA (SULFONAMIDE ANTIBIOTICS) 03/06/2005 2 - Rash WELLBUTRIN (BUPROPION HCL) 05/08/2014 8 - GI Upset Date Reviewed: 01/15/2024 Reviewed by: Bettina Fuentes APRN.AGENCY OWNER - Fully Assessed Reason for Visit: [facility] Paperwork [4485] Prescriptions as of 01/27/2024 - sod sulf-pot chloride-mag sulf (SUTAB) 1.479-0.188- 0.225 gram tab Take 12 tablets by mouth as directed for 2 days. Follow instructions that have been given to you by your provider's office. (Part 1, take 12 tablets. Part 2, take 12 tablets). - ARIPiprazole (ABILIFY) 2 mg tablet take 1 tablet by mouth every day - MAGNESIUM GLYCINATE ORAL Take 200 mg by mouth once daily. - norgestimate 0.25 mg-ethinyl estradiol 35 mcg (TAMARA) 0.25-35 mg-mcg per tablet Take 1 tablet by mouth once daily. Take active pills only. No inactive week. - cyclobenzaprine (FLEXERIL) 10 mg tablet Take 1 tablet by mouth three times a day as needed for muscle spasm. - meclizine (ANTIVERT) 25 mg tab Take 1 tablet by mouth three times a day as needed (vertigo). - lamoTRIgine (LAMICTAL) 200 mg tablet Take 1 tablet by mouth daily at bedtime. - ondansetron orally disintegrating (ZOFRAN ODT) 4 mg disintegrating tablet Take 1 tablet by mouth every 6 hours as needed for nausea/vomiting. - gabapentin (NEURONTIN) 100 mg capsule Take 1 capsule by mouth three times a day for 90 days. - venlafaxine (EFFEXOR) 75 mg tablet Take 1 tablet by mouth two times a day. - Multivitamin capsule Take 1 capsule by mouth once daily. - BIOTIN, BULK, MISC - cholecalciferol, vitamin D3, (VITAMIN D3 ORAL) Take by mouth. - ascorbic acid (VITAMIN C ORAL) Take by mouth. Meds Comments as of 07/16/2007: All medications have been reviewed July 16, 2007 Cher Andre Rn Problem List As Of Date 01/18/2024 Noted Resolved Abdominal pain, epigastric [R10.13] 04/02/2005 03/12/2015 Acute gastritis without mention of hemorrhage [*04/11/2005 05/07/2015 Adjustment disorder with depressed mood [F43.21]02/02/2007 09/15/2019 DECREASED MOVMT-ANTEPARTUM [O36.8190] 01/20/2008 05/12/2008 Carbuncle and furuncle of trunk [L02.239, L02.2*05/12/2008 03/12/2015 GERD (gastroesophageal reflux disease) [K21.9] 03/12/2009 Lumbago [M54.50] 07/26/2009 Breakthrough bleeding with IUD [N92.1, Z97.5] 03/04/2012 03/18/2013 IUD migration [T83.32XA] 03/04/2012 03/18/2013 Tobacco abuse [Z72.0] 04/13/2012 07/22/2017 Unspecified prophylactic or treatment measure [* 03/12/2015 Morbid obesity (HCC) [E66.01] 03/14/2016 Fibromyalgia [M79.7] 08/20/2016 Paroxysmal hemicrania, 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] 08/20/2016 Cervical spinal stenosis [M48.02] 02/26/2017 Foraminal stenosis of cervical region [M48.02] 02/26/2017 Irritable bowel syndrome with diarrhea [K58.0] 01/25/2019 Cervicothoracic somatic dysfunction [M99.01] 01/25/2019 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*06/09/2019 11/21/2021 Panic disorder without agoraphobia [F41.0] 06/09/2019 11/21/2021 Anxiety disorder [F41.9] 09/15/2019 Polypharmacy [Z79.899] 09/23/2019 CLIFTON (obstructive sleep apnea) [G47.33] 12/28/2019 Acute pain of left shoulder [M25.512] 04/23/2020 Hiatal hernia [K44.9] 11/09/2020 11/09/2020 Major depressive disorder, recurrent episode, m*11/21/2021 Encounter Status:Closed by CONG KUNZ on 01/27/24 [facility] CNOVon 01-15-2024 CNOV Office Visit (FAMPWS ) FERNANDA HERNANDEZ ([id number]) 1980 F Date Time Provider Department 01/15/24 2:40 PM [facility] During your visit today, we recorded the following information about you: Pulse Respiration Blood pressure Weight 92/minute 16/minute 120/80 109.3 kg Bettina Fuentes, MEDICAL ONCOLOGY PHYSICIAN.[facility] 01/15/2024 3:21 PM Signed This is a 43 year old female who presents today with: Patient presents with: Neck Pain HISTORY OF PRESENT ILLNESS: Fernanda Hernandez is a 43 year old female. Patient presents with: Neck Pain Missing work because of cervical and thoracic pain- upper back. Entire neck under base of skull across trapezius pawan. And down to mid-thoracic. No radicular Sx. Sees pain management for this pain. Sees them at [facility]. Has seen career agent twice a week for this flare. Has seen them for years. 5/10- had medical massage the other day; can get to a 10/10 Pain exacerbated by sitting too long, standing still, walking too long. Also gets dizziness AND vertigo Laying, stooping, bending also hurts Pain medications and muscle relaxants help- the massage helped Usually PA will adjust her but he is on medical leave. She is unable to do her 2 lengthy shift per week. PAST MEDICAL HISTORY: PAST MEDICAL HISTORY No date: Delayed emergence from general anesthesia 08/20/2016: Fibromyalgia 03/12/2009: GERD (gastroesophageal reflux disease) No date: Hiatal hernia No date: Hypoglycemia, unspecified No date: Mental disorder Comment: anxiety and depression 2001: Migraine without aura No date: Morbid obesity (HCC) 01/23/2012: Normal cardiac stress test No date: PONV (postoperative nausea and vomiting) No date: Sleep apnea No date: Snoring No date: Unspecified prophylactic or treatment measure PAST SURGICAL HISTORY 12/14/2018: COLONOSCOPY W/BIOPSY SINGLE/MULTIPLE 01/31/2020: EGD 04/11/2005: ESOPHAGOGASTRODUODENOSCOPY TRANSORAL DIAGNOSTIC Comment: EGD 03/06/2017: ESOPHAGOGASTRODUODENOSCOPY TRANSORAL DIAGNOSTIC Comment: EGD 11/08/2020: GASTRIC BYPASS, TATI-EN-Y Comment: w/ Lap hiatal hernia repair 11/08/2020: LAP REPAIR, PARAESOPHAGEAL HIATAL HERNIA 03/21/2016: LAPAROSCOPY SURG CHOLECYSTECTOMY 2014: REDUCTION OF LARGE BREAST 2003: TONSILLECTOMY AND ADENOIDECTOMY AGE 11/> Comment: DR. EASTMAN ALLERGIES Aciphex [Rabeprazole Sodium], Entex Pse [Pseudoephedrine-Guaifenesi n], Nexium [Esomeprazole Magnesium], Prevacid [Lansoprazole], Prilosec [Omeprazole], Sulfa (Sulfonamide Antibiotics), and Wellbutrin [Bupropion Hcl] MEDICATIONS Current Outpatient Medications Medication Sig MAGNESIUM GLYCINATE ORAL Take 200 mg by mouth once daily. norgestimate 0.25 mg-ethinyl estradiol 35 mcg (TAMARA) 0.25-35 mg-mcg per tablet Take 1 tablet by mouth once daily. Take active pills only. No inactive week. cyclobenzaprine (FLEXERIL) 10 mg tablet Take 1 tablet by mouth three times a day as needed for muscle spasm. meclizine (ANTIVERT) 25 mg tab Take 1 tablet by mouth three times a day as needed (vertigo). lamoTRIgine (LAMICTAL) 200 mg tablet Take 1 tablet by mouth daily at bedtime. ondansetron orally disintegrating (ZOFRAN ODT) 4 mg disintegrating tablet Take 1 tablet by mouth every 6 hours as needed for nausea/vomiting. gabapentin (NEURONTIN) 100 mg capsule Take 1 capsule by mouth three times a day for 90 days. venlafaxine (EFFEXOR) 75 mg tablet Take 1 tablet by mouth two times a day. cyclobenzaprine (FLEXERIL) 10 mg tablet Take 1 tablet by mouth three times a day as needed for muscle spasm. Multivitamin capsule Take 1 capsule by mouth once daily. BIOTIN, BULK, MISC cholecalciferol, vitamin D3, (VITAMIN D3 ORAL) Take by mouth. ascorbic acid (VITAMIN C ORAL) Take by mouth. tiZANidine (ZANAFLEX) 4 mg tablet Take 4 mg by mouth every 8 hours as needed. metFORMIN ER (GLUCOPHAGE XR) 500 mg 24 hr tablet Take 4 tablets by mouth daily with dinner. (Patient not taking: Reported on 01/15/2024) iron polysaccharide complex (FERREX-150) 150 mg iron capsule Take 1 capsule by mouth twice daily. (Patient not taking: Reported on 01/15/2024) No current facility-administered medications for this visit. FAMILY HISTORY Problem Relation Age of Onset Arthritis Mother Diabetes Mother Headache Father Lipids Father Headache Sister Diabetes Maternal Grandfather Stroke Maternal Grandfather Alcohol/Drug Paternal Grandmother ETOH Alcohol/Drug Paternal Grandfather ETOH Cancer Paternal Grandfather LUNG Alcohol/Drug Paternal Aunt ETOH Alcohol/Drug Paternal Uncle ETOH Cancer Paternal Uncle LUNG Social History Tobacco Use Smoking status: Former Current packs/day: 0.00 Average packs/day: 0.5 packs/day for 12.0 years (6.0 ttl pk-yrs) Types: Cigarettes Start date: 07/22/2001 Quit date: 07/22/2013 Years since quittin.4 Smokeless tobacco: Never Vaping Use Vaping (more content not included)... Normal [facility] 01-07-2024 [facility] Telephone (FAMPWS) FERNANDA HERNANDEZ ([id number]) 1980 F Date Time Provider Department 01/07/24 Mandie GARCIA During your visit today, we recorded the following information about you: Temitope Lewis LPN 01/07/2024 8:38 AM Signed Patient calling said she phoned Dr Rajput office and they did not have her pain management referral. Printed referral from July, office notes from July, lumbar xray and cervical xray results, face sheet, consult, insurance card copy and faxed to [phone] as requested. Allergies As of Date: 01/07/2024 Noted Allergy Reaction ACIPHEX (RABEPRAZOLE SODIUM) 07/09/2016 2 - Rash ENTEX PSE (PSEUDOEPHEDRINE-GUAIFE* Comments: INSOMNIA NEXIUM (ESOMEPRAZOLE MAGNESIUM) 07/11/2016 14 - Other: See Comments Comments: Made acid reflux worse PREVACID (LANSOPRAZOLE) 03/06/2005 Comments: HEADACHE PRILOSEC (OMEPRAZOLE) 03/06/2005 Comments: HEADACHE SULFA (SULFONAMIDE ANTIBIOTICS) 03/06/2005 2 - Rash WELLBUTRIN (BUPROPION HCL) 05/08/2014 8 - GI Upset Date Reviewed: 12/28/2023 Reviewed by: Ashlee Lee APRN.AGENCY OWNER - Fully Assessed Reason for Visit: fax pain management referral to Dr Rajput [Other] Prescriptions as of 01/07/2024 - meclizine (ANTIVERT) 25 mg tab Take 1 tablet by mouth three times a day as needed (vertigo). - lamoTRIgine (LAMICTAL) 200 mg tablet Take 1 tablet by mouth daily at bedtime. - ondansetron orally disintegrating (ZOFRAN ODT) 4 mg disintegrating tablet Take 1 tablet by mouth every 6 hours as needed for nausea/vomiting. - gabapentin (NEURONTIN) 100 mg capsule Take 1 capsule by mouth three times a day for 90 days. - metFORMIN ER (GLUCOPHAGE XR) 500 mg 24 hr tablet Take 4 tablets by mouth daily with dinner. - norgestimate 0.25 mg-ethinyl estradiol 35 mcg (TAMARA) 0.25-35 mg-mcg per tablet Take 1 tablet by mouth once daily. Take active pills only. No inactive week. - venlafaxine (EFFEXOR) 75 mg tablet Take 1 tablet by mouth two times a day. - cyclobenzaprine (FLEXERIL) 10 mg tablet Take 1 tablet by mouth three times a day as needed for muscle spasm. - iron polysaccharide complex (FERREX-150) 150 mg iron capsule Take 1 capsule by mouth twice daily. - Multivitamin capsule Take 1 capsule by mouth once daily. - BIOTIN, BULK, MISC - cholecalciferol, vitamin D3, (VITAMIN D3 ORAL) Take by mouth. - ascorbic acid (VITAMIN C ORAL) Take by mouth. Meds Comments as of 07/16/2007: All medications have been reviewed July 16, 2007 Cher Andre Rn Problem List As Of Date 01/07/2024 Noted Resolved Abdominal pain, epigastric [R10.13] 04/02/2005 03/12/2015 Acute gastritis without mention of hemorrhage [*04/11/2005 05/07/2015 Adjustment disorder with depressed mood [F43.21]02/02/2007 09/15/2019 DECREASED MOVMT-ANTEPARTUM [O36.8190] 01/20/2008 05/12/2008 Carbuncle and furuncle of trunk [L02.239, L02.2*05/12/2008 03/12/2015 GERD (gastroesophageal reflux disease) [K21.9] 03/12/2009 Lumbago [M54.50] 07/26/2009 Breakthrough bleeding with IUD [N92.1, Z97.5] 03/04/2012 03/18/2013 IUD migration [T83.32XA] 03/04/2012 03/18/2013 Tobacco abuse [Z72.0] 04/13/2012 07/22/2017 Unspecified prophylactic or treatment measure [* 03/12/2015 Morbid obesity (HCC) [E66.01] 03/14/2016 Fibromyalgia [M79.7] 08/20/2016 Paroxysmal hemicrania, 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] 08/20/2016 Cervical spinal stenosis [M48.02] 02/26/2017 Foraminal stenosis of cervical region [M48.02] 02/26/2017 Irritable bowel syndrome with diarrhea [K58.0] 01/25/2019 Cervicothoracic somatic dysfunction [M99.01] 01/25/2019 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*06/09/2019 11/21/2021 Panic disorder without agoraphobia [F41.0] 06/09/2019 11/21/2021 Anxiety disorder [F41.9] 09/15/2019 Polypharmacy [Z79.899] 09/23/2019 CLIFTON (obstructive sleep apnea) [G47.33] 12/28/2019 Acute pain of left shoulder [M25.512] 04/23/2020 Hiatal hernia [K44.9] 11/09/2020 11/09/2020 Major depressive disorder, recurrent episode, m*11/21/2021 Encounter Status:Closed by TEMITOPE LEWIS on 01/07/24 [facility] CNOVon 12-28-2023 CNOV Office Visit (GENSWS ) FERNANDA HERNANDEZ ([id number]) 1980 F Date Time Provider Department 12/28/23 1:00 PM ASHLEE ELE During your visit today, we recorded the following information about you: Temperature Pulse Blood pressure Weight 97.8 degrees 78/minute 124/84 110.7 kg Ashlee Lee APRN.CNP 12/28/2023 2:30 PM Signed HISTORY AND PHYSICAL Fernanda Hernandez : 1980 REFERRING PHYSICIAN: Faith Mcmillan0 [facility] [id number] CHIEF COMPLAINT: Patient presents with: Colon consult HPI: Fernanda is a 43 year old female referred for endoscopy. Fernanda notes positive occult stool test. She had stool studies completed by PCP which all returned negative except was positive for blood. She was seen by her PCP for diarrhea starting November 01, 2023. When she was fluctuating between constipation and diarrhea that she is having bloating and nausea. Used to follow with GI but has not seen them in 2 years. History of GERD and IBS and gastric bypass surgery in 2020 Was instructed to increase fiber, water, and start using MiraLAX- She did not start this yet but states her bowels have returned back to normal. Abdominal x-ray on 12/16/2023 shows moderate amount of stool Patient denies any weight changes, visible blood in stools, black tarry stools or abdominal pain. Denies family history of colon issues. Fernanda notes history upper GI complaints. She refers she used to suffer from reflux and took medication, however is no longer taking meds and has no reflux symptoms. Fernanda has undergone prior endoscopy. Fernanda underwent upper endoscopy at [facility] with Dr. Gonzalez on 01/2020 for preop for bariatric surgery EGD Impression: -Normal first portion of the duodenum and second portion of the duodenum -Erythematous mucosa in the antrum, biopsied -Medium size hiatal hernia. Biopsied Pathology: A. Gastric antrum, biopsy: Chronic gastritis. B. Gastroesophageal junction, biopsy: Gastric mucosa with mild chronic inflammation. No evidence of goblet cell metaplasia Fernanda also underwent colonoscopy 11/[address] Gonzalez Colonoscopy Impression: -Nonbleeding internal hemorrhoids -Biopsies were taken with cold forceps from the entire colon for evaluation of microscopic colitis Pathology: Colon, random biopsy Fragments of colonic mucosa, no pathologic diagnosis Current Outpatient Medications Medication Sig meclizine (ANTIVERT) 25 mg tab Take 1 tablet by mouth three times a day as needed (vertigo). lamoTRIgine (LAMICTAL) 200 mg tablet Take 1 tablet by mouth daily at bedtime. ondansetron orally disintegrating (ZOFRAN ODT) 4 mg disintegrating tablet Take 1 tablet by mouth every 6 hours as needed for nausea/vomiting. gabapentin (NEURONTIN) 100 mg capsule Take 1 capsule by mouth three times a day for 90 days. metFORMIN ER (GLUCOPHAGE XR) 500 mg 24 hr tablet Take 4 tablets by mouth daily with dinner. norgestimate 0.25 mg-ethinyl estradiol 35 mcg (TAMARA) 0.25-35 mg-mcg per tablet Take 1 tablet by mouth once daily. Take active pills only. No inactive week. venlafaxine (EFFEXOR) 75 mg tablet Take 1 tablet by mouth two times a day. cyclobenzaprine (FLEXERIL) 10 mg tablet Take 1 tablet by mouth three times a day as needed for muscle spasm. iron polysaccharide complex (FERREX-150) 150 mg iron capsule Take 1 capsule by mouth twice daily. Multivitamin capsule Take 1 capsule by mouth once daily. BIOTIN, BULK, MISC cholecalciferol, vitamin D3, (VITAMIN D3 ORAL) Take by mouth. ascorbic acid (VITAMIN C ORAL) Take by mouth. venlafaxine (EFFEXOR) 37.5 mg tablet Take 1 tablet by mouth two times a day. take with 75mg tablet in the morning and in the evening. (Patient not taking: Reported on 06/16/2023) ARIPiprazole (ABILIFY) 2 mg tablet Take 1 tablet by mouth once daily. No current facility-administered medications for this visit. ALLERGIES: Aciphex [Rabeprazole Sodium], Entex Pse [Pseudoephedrine-Guaifenesi n], Nexium [Esomeprazole Magnesium], Prevacid [Lansoprazole], Prilosec [Omeprazole], Sulfa (Sulfonamide Antibiotics), and Wellbutrin [Bupropion Hcl] PAST MEDICAL HISTORY No date: Delayed emergence from general anesthesia 08/20/2016: Fibromyalgia 03/12/2009: GERD (gastroesophageal reflux disease) No date: Hypoglycemia, unspecified No date: Mental disorder Comment: anxiety and depression 2001: Migraine without aura No date: Morbid obesity (HCC) 01/23/12: Normal cardiac stress test No date: PONV (postoperative nausea and vomiting) No date: Sleep apnea No date: Snoring No date: Unspecified prophylactic or treatment measure PAST SURGICAL HISTORY 12/14/2018: COLONOSCOPY W/BIOPSY SINGLE/MULTIPLE 01/31/2020: EGD 04/11/2005: ESOPHAGOGASTRODUODENOSCOPY TRANSORAL DIAGNOSTIC Comment: EGD 03/06/2017: ESOPHAGOGASTRODUODENOSCOPY TRANSORAL DIAGNOSTIC Comment: EGD (more content not included)... Normal [facility] 12-23-2023 [facility] Telephone (FAMPWS) DAVIDFERNANDA ([id number]) 1980 F Date Time Provider Department 12/23/23 FAITH DELUNA During your visit today, we recorded the following information about you: Faith Deluna APRN.RACHID 12/23/2023 7:58 AM Signed Can you please call the patient and let her know that I reviewed her stool test results. She tested negative for C. difficile or bacteria in the stool. However blood was noted. Parasite testing is still pending. Due to the blood in the stool I would recommend a consult with general surgery to discuss possible colonoscopy. Thank you. Faith Deluna APRN.Pramod Chun, FREDRICK 12/23/2023 9:07 AM Signed Pt saw the consult scheduling ticket for general surgery in her MyChart so she called in checking on that. Pt had seen the positive occult blood result. Pt given Faith's information and transferred to derrick hand to set up general surgery consult. Allergies As of Date: 12/23/2023 Noted Allergy Reaction ACIPHEX (RABEPRAZOLE SODIUM) 07/09/2016 2 - Rash ENTEX PSE (PSEUDOEPHEDRINE-GUAIFE* Comments: INSOMNIA NEXIUM (ESOMEPRAZOLE MAGNESIUM) 07/11/2016 14 - Other: See Comments Comments: Made acid reflux worse PREVACID (LANSOPRAZOLE) 03/06/2005 Comments: HEADACHE PRILOSEC (OMEPRAZOLE) 03/06/2005 Comments: HEADACHE SULFA (SULFONAMIDE ANTIBIOTICS) 03/06/2005 2 - Rash WELLBUTRIN (BUPROPION HCL) 05/08/2014 8 - GI Upset Date Reviewed: 12/16/2023 Reviewed by: Pramod Curtis LPN - Fully Assessed Reason for Visit: Results [95] Cmt: Stool Primary Visit Diagnosis:Occult blood positive stool [R19.5] Order(s):CONSULT TO GENERAL SURGERY [9011] Order #: [id number]: 1 FUTURE Prescriptions as of 12/23/2023 - meclizine (ANTIVERT) 25 mg tab Take 1 tablet by mouth three times a day as needed (vertigo). - lamoTRIgine (LAMICTAL) 200 mg tablet Take 1 tablet by mouth daily at bedtime. - ondansetron orally disintegrating (ZOFRAN ODT) 4 mg disintegrating tablet Take 1 tablet by mouth every 6 hours as needed for nausea/vomiting. - gabapentin (NEURONTIN) 100 mg capsule Take 1 capsule by mouth three times a day for 90 days. - metFORMIN ER (GLUCOPHAGE XR) 500 mg 24 hr tablet Take 4 tablets by mouth daily with dinner. - venlafaxine (EFFEXOR) 37.5 mg tablet Take 1 tablet by mouth two times a day. take with 75mg tablet in the morning and in the evening. - norgestimate 0.25 mg-ethinyl estradiol 35 mcg (TAMARA) 0.25-35 mg-mcg per tablet Take 1 tablet by mouth once daily. Take active pills only. No inactive week. - ARIPiprazole (ABILIFY) 2 mg tablet Take 1 tablet by mouth once daily. - venlafaxine (EFFEXOR) 75 mg tablet Take 1 tablet by mouth two times a day. - cyclobenzaprine (FLEXERIL) 10 mg tablet Take 1 tablet by mouth three times a day as needed for muscle spasm. - iron polysaccharide complex (FERREX-150) 150 mg iron capsule Take 1 capsule by mouth twice daily. - Multivitamin capsule Take 1 capsule by mouth once daily. - BIOTIN, BULK, MISC - cholecalciferol, vitamin D3, (VITAMIN D3 ORAL) Take by mouth. - ascorbic acid (VITAMIN C ORAL) Take by mouth. Meds Comments as of 07/16/2007: All medications have been reviewed /July 16, 2007 Cher Andre Rn Problem List As Of Date 12/23/2023 Noted Resolved Abdominal pain, epigastric [R10.13] 04/02/2005 03/12/2015 Acute gastritis without mention of hemorrhage [*04/11/2005 05/07/2015 Adjustment disorder with depressed mood [F43.21]02/02/2007 09/15/2019 DECREASED MOVMT-ANTEPARTUM [O36.8190] 01/20/2008 05/12/2008 Carbuncle and furuncle of trunk [L02.239, L02.2*05/12/2008 03/12/2015 GERD (gastroesophageal reflux disease) [K21.9] 03/12/2009 Lumbago [M54.50] 07/26/2009 Breakthrough bleeding with IUD [N92.1, Z97.5] 03/04/2012 03/18/2013 IUD migration [T83.32XA] 03/04/2012 03/18/2013 Tobacco abuse [Z72.0] 04/13/2012 07/22/2017 Unspecified prophylactic or treatment measure [* 03/12/2015 Morbid obesity (HCC) [E66.01] 03/14/2016 Fibromyalgia [M79.7] 08/20/2016 Paroxysmal hemicrania, 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] 08/20/2016 Cervical spinal stenosis [M48.02] 02/26/2017 Foraminal stenosis of cervical region [M48.02] 02/26/2017 Irritable bowel syndrome with diarrhea [K58.0] 01/25/2019 Cervicothoracic somatic dysfunction [M99.01] 01/25/2019 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*06/09/2019 11/21/2021 Panic disorder without agoraphobia [F41.0] 06/09/2019 11/21/2021 Anxiety disorder [F41.9] 09/15/2019 Polypharmacy [Z79.899] 09/23/2019 CLIFTON (obstructive sleep apnea) [G47.33] 12/28/2019 Acute pain of left shoulder [M25.512] 04/23/2020 Hiatal hernia [K44.9] 11/09/2020 11/09/2020 Major depressive disorder, recurrent episode, m*11/21/2021 Encounter Status:Closed by PRAMOD POOL on 12/23/23 [facility] 12-21-2023 CNPN Telephone (FAMPWS) FERNANDA HERNANDEZ ([id number]) 1980 F Date Time Provider Department 12/21/23 TANNHOF, FAITH FAMPWS During your visit today, we recorded the following information about you: Faith Deluna APRN.RACHID 12/21/2023 7:03 AM Signed Can you please call the patient and let her know that I reviewed her x-ray results. X-ray of the abdomen does reveal moderate constipation. I would recommend that she continue supportive care at home as discussed during office visit. May use MiraLAX 1-2 times per day as needed. Increase water and fiber in the diet. She may still complete the stool test for further evaluation. Please let me know if she has any questions. Thank you. Faith Deluna APRN.Pramod Sosa LPN 12/21/2023 9:10 AM Signed Patient notified of results, verbalizes understanding of instructions. Pt stated she turned stool sample in this AM. Pramod Curtis LPN Allergies As of Date: 12/21/2023 Noted Allergy Reaction ACIPHEX (RABEPRAZOLE SODIUM) 07/09/2016 2 - Rash ENTEX PSE (PSEUDOEPHEDRINE-GUAIFE* Comments: INSOMNIA NEXIUM (ESOMEPRAZOLE MAGNESIUM) 07/11/2016 14 - Other: See Comments Comments: Made acid reflux worse PREVACID (LANSOPRAZOLE) 03/06/2005 Comments: HEADACHE PRILOSEC (OMEPRAZOLE) 03/06/2005 Comments: HEADACHE SULFA (SULFONAMIDE ANTIBIOTICS) 03/06/2005 2 - Rash WELLBUTRIN (BUPROPION HCL) 05/08/2014 8 - GI Upset Date Reviewed: 12/16/2023 Reviewed by: Pramod Curtis LPN - Fully Assessed Reason for Visit: Results [95] Cmt: Abdomen Xray Prescriptions as of 12/21/2023 - meclizine (ANTIVERT) 25 mg tab Take 1 tablet by mouth three times a day as needed (vertigo). - lamoTRIgine (LAMICTAL) 200 mg tablet Take 1 tablet by mouth daily at bedtime. - ondansetron orally disintegrating (ZOFRAN ODT) 4 mg disintegrating tablet Take 1 tablet by mouth every 6 hours as needed for nausea/vomiting. - gabapentin (NEURONTIN) 100 mg capsule Take 1 capsule by mouth three times a day for 90 days. - metFORMIN ER (GLUCOPHAGE XR) 500 mg 24 hr tablet Take 4 tablets by mouth daily with dinner. - venlafaxine (EFFEXOR) 37.5 mg tablet Take 1 tablet by mouth two times a day. take with 75mg tablet in the morning and in the evening. - norgestimate 0.25 mg-ethinyl estradiol 35 mcg (TAMARA) 0.25-35 mg-mcg per tablet Take 1 tablet by mouth once daily. Take active pills only. No inactive week. - ARIPiprazole (ABILIFY) 2 mg tablet Take 1 tablet by mouth once daily. - venlafaxine (EFFEXOR) 75 mg tablet Take 1 tablet by mouth two times a day. - cyclobenzaprine (FLEXERIL) 10 mg tablet Take 1 tablet by mouth three times a day as needed for muscle spasm. - iron polysaccharide complex (FERREX-150) 150 mg iron capsule Take 1 capsule by mouth twice daily. - Multivitamin capsule Take 1 capsule by mouth once daily. - BIOTIN, BULK, MISC - cholecalciferol, vitamin D3, (VITAMIN D3 ORAL) Take by mouth. - ascorbic acid (VITAMIN C ORAL) Take by mouth. Meds Comments as of 07/16/2007: All medications have been reviewed /July 16, 2007 Cher Andre Rn Problem List As Of Date 12/21/2023 Noted Resolved Abdominal pain, epigastric [R10.13] 04/02/2005 03/12/2015 Acute gastritis without mention of hemorrhage [*04/11/2005 05/07/2015 Adjustment disorder with depressed mood [F43.21]02/02/2007 09/15/2019 DECREASED MOVMT-ANTEPARTUM [O36.8190] 01/20/2008 05/12/2008 Carbuncle and furuncle of trunk [L02.239, L02.2*05/12/2008 03/12/2015 GERD (gastroesophageal reflux disease) [K21.9] 03/12/2009 Lumbago [M54.50] 07/26/2009 Breakthrough bleeding with IUD [N92.1, Z97.5] 03/04/2012 03/18/2013 IUD migration [T83.32XA] 03/04/2012 03/18/2013 Tobacco abuse [Z72.0] 04/13/2012 07/22/2017 Unspecified prophylactic or treatment measure [* 03/12/2015 Morbid obesity (HCC) [E66.01] 03/14/2016 Fibromyalgia [M79.7] 08/20/2016 Paroxysmal hemicrania, 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] 08/20/2016 Cervical spinal stenosis [M48.02] 02/26/2017 Foraminal stenosis of cervical region [M48.02] 02/26/2017 Irritable bowel syndrome with diarrhea [K58.0] 01/25/2019 Cervicothoracic somatic dysfunction [M99.01] 01/25/2019 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 difficile toxin genes ELIZABETH+probe Ql (Stl) Negative Normal Negative for C. difficile toxin by PCR [facility] Comment on above: Order Comment: Speci men Type: STOOL SPECIMENOrdering Facility: [facility] Address: [address] [place] [address] Performed By: #### 5 [id number] ####[facility] LABCLIA [id number] [place] [address] [place] Gastrointestinal pathogens i dentified ELIZABETH+probe Nom (Stl)on 12-19-2023 Campylobacter sp DNA ELIZABETH+probe Nom (Unsp spec) Not detected Normal Not Detected [facility] Comment on above: Order Comment: Speci men Type: STOOL SPECIMENOrdering Facility: [facility] Address: [address] [place] [address] Performed By: #### 7 [id number] ####[facility] LABCLIA [id number] [place] [address] [place] Salmonella sp DNA ELIZABETH+probe Ql (Unsp spec) Not detected Normal Not Detected [facility] Comment on above: Order Comment: Speci men Type: STOOL SPECIMENOrdering Facility: [facility] Address: [address] [place] [address] Performed By: #### 7 [id number] ####[facility] LABCLIA [id number] [place] [address] [place] Shiga toxin stx gene ELIZABETH+probe Nom (Unsp spec) Not detected Normal Not Detected [facility] Comment on above: Order Comment: Speci men Type: STOOL SPECIMENOrdering Facility: [facility] Address: [address] [place] [address] Performed By: #### 7 9390-1 ####[facility] LABCLIA [id number] [address] [place] Shigella sp DNA ELIZABETH+probe Ql (Unsp spec) Not detected Normal Not Detected [facility] Comment on above: Order Comment: Speci men Type: STOOL SPECIMENOrdering Facility: [facility] Address: [address] [place] [address] Performed By: #### 7 [id number] ####[facility] LABCLIA [id number] [place] [address] [place] O+P Spec Microon 12-19-2023 Ova and parasites identified LM Nom (Unsp spec) OVA AND PARASITE EXAM: No Parasites Seen Normal [facility] Comment on above: Performed By: #### 6 73-4 ####[facility] LABCLIA [id number] [place] [address] [place] OCCULT BLD EXAM-DIAGon 12-18 OCCULT BLD EXAM-DIAG Positive Abnormal [facility] Comment on above: Performed By: #### O BDX ####[facility] LABCLIA [id number] [address] STATES OF [facility] XR Abdomen Supine and Uprigh ton 12-18-2023 IMPRESSION: Possible constipation Career Development Coordinator/Teacher: JOHNATHAN Transcribe Date/Time: Dec 18 2023 7:02P Dictated by : CHI CROOKS MD This examination was interpreted and the report reviewed and electronically signed by: CHI CROOKS MD on Dec 18 2023 7:03PM [facility] DIVISION OF RADIOLOGY * * *Final Report* * * DATE OF EXAM: Dec 16 2023 10:03AM WOX [id number] - XR ABDOMEN 1V SUPINE / PROCEDURE REASON: Abdominal cramping * * * * Physician Interpretation * * * * XR ABDOMEN 1V SUPINE PROVIDED HISTORY: Abdominal cramping COMPARISON: No previous similar exams are available for comparison TECHNIQUE: Supine abdomen RESULT: Moderate stool in the colon. No free air is seen. No renal calculi are visualized. Osseous structures appear grossly unremarkable. DIVISION OF RADIOLOGY [facility] - 12/18/2023 * * *Final Report* * * DATE OF EXAM: Dec 16 2023 10:03AM WOX [id number] - XR ABDOMEN 1V SUPINE / PROCEDURE REASON: Abdominal cramping * * * * Physician Interpretation * * * * XR ABDOMEN 1V SUPINE PROVIDED HISTORY: Abdominal cramping COMPARISON: No previous similar exams are available for comparison TECHNIQUE: Supine abdomen RESULT: Moderate stool in the colon. No free air is seen. No renal calculi are visualized. Osseous structures appear grossly unremarkable. IMPRESSION IMPRESSION: Possible constipation Career Development Coordinator/Teacher: JOHNATHAN Transcribe Date/Time: Dec 18 2023 7:02P Dictated by : CHI CROOKS MD This examination was interpreted and the report reviewed and electronically signed by: CHI CROOKS MD on Dec 18 2023 7:03PM EST [facility] XR Abdomen Supine and Uprigh tOrdered By: Cc Provider on 12-18-2023 [facility] CNOVon 12-16-2023 CNOV Office Visit (FAMPWS ) FERNANDA HERNANDEZ ([id number]) 1980 F Date Time Provider Department 12/16/23 9:00 AM FAITH DELUNA During your visit today, we recorded the following information about you: Pulse Respiration Blood pressure Weight 78/minute 16/minute 122/62 109.8 kg Faith Deluna APRN.AGENCY OWNER 12/16/2023 9:43 AM Signed This is a 43 year old female who presents today with: Patient presents with: Acute Visit: Low back pain, cramping and diarrhea HISTORY OF PRESENT ILLNESS: Fernanda Hernandez is a 43 year old female. Patient presents with: Acute Visit: Low back pain, cramping and diarrhea Patient of Alfonzo Garcia PA-C, here in the office for diarrhea and cramping. Symptoms started at the beginning of November 01, 2023. When diarrhea started she was going 4-5 times a day for 3 days and then got better. She was having constipation for 2-3 days and then diarrhea. Now she is feeling bloated and nauseous. The past week she had a small BM after having iced coffee and then a half hour to an hour later she had diarrhea. Reports also feeling full after a few bites of food. Reports low back pain and abdominal cramping continuously and gets worse when having to go the bathroom. Has tried pepto bismol and probiotic. Denies fever or chills. Was seen by PCP guest service team leader in October when symptoms first started. Lab workup at that time was all normal. History of GERD and IBS with diarrhea. Not currently following with GI, Reports she has not seen GI since 2 years ago, did have a phone call visit in May due to gaining weight back. PAST MEDICAL HISTORY: PAST MEDICAL HISTORY Diagnosis Date Delayed emergence from general anesthesia Fibromyalgia 08/20/2016 GERD (gastroesophageal reflux disease) 03/12/2009 Hypoglycemia, unspecified Mental disorder anxiety and depression Migraine without aura 2001 Morbid obesity (HCC) Normal cardiac stress test 01/23/12 PONV (postoperative nausea and vomiting) Sleep apnea Snoring Unspecified prophylactic or treatment measure PAST SURGICAL HISTORY Procedure Laterality Date COLONOSCOPY W/BIOPSY SINGLE/MULTIPLE 12/14/2018 EGD 01/31/2020 ESOPHAGOGASTRODUODENOSCOPY TRANSORAL DIAGNOSTIC 04/11/2005 EGD ESOPHAGOGASTRODUODENOSCOPY TRANSORAL DIAGNOSTIC 03/06/2017 EGD GASTRIC BYPASS, TATI-EN-Y 11/08/2020 w/ Lap hiatal hernia repair LAP REPAIR, PARAESOPHAGEAL HIATAL HERNIA 11/08/2020 LAPAROSCOPY SURG CHOLECYSTECTOMY 03/21/2016 REDUCTION OF LARGE BREAST 2014 TONSILLECTOMY AND ADENOIDECTOMY AGE 11/> 2002 DR. EASTMAN ALLERGIES Aciphex [Rabeprazole Sodium], Entex Pse [Pseudoephedrine-Guaifenesi n], Nexium [Esomeprazole Magnesium], Prevacid [Lansoprazole], Prilosec [Omeprazole], Sulfa (Sulfonamide Antibiotics), and Wellbutrin [Bupropion Hcl] MEDICATIONS Current Outpatient Medications Medication Sig meclizine (ANTIVERT) 25 mg tab Take 1 tablet by mouth three times a day as needed (vertigo). lamoTRIgine (LAMICTAL) 200 mg tablet Take 1 tablet by mouth daily at bedtime. ondansetron orally disintegrating (ZOFRAN ODT) 4 mg disintegrating tablet Take 1 tablet by mouth every 6 hours as needed for nausea/vomiting. gabapentin (NEURONTIN) 100 mg capsule Take 1 capsule by mouth three times a day for 90 days. metFORMIN ER (GLUCOPHAGE XR) 500 mg 24 hr tablet Take 4 tablets by mouth daily with dinner. venlafaxine (EFFEXOR) 37.5 mg tablet Take 1 tablet by mouth two times a day. take with 75mg tablet in the morning and in the evening. (Patient not taking: Reported on 06/16/2023) norgestimate 0.25 mg-ethinyl estradiol 35 mcg (TAMARA) 0.25-35 mg-mcg per tablet Take 1 tablet by mouth once daily. Take active pills only. No inactive week. ARIPiprazole (ABILIFY) 2 mg tablet Take 1 tablet by mouth once daily. venlafaxine (EFFEXOR) 75 mg tablet Take 1 tablet by mouth two times a day. cyclobenzaprine (FLEXERIL) 10 mg tablet Take 1 tablet by mouth three times a day as needed for muscle spasm. iron polysaccharide complex (FERREX-150) 150 mg iron capsule Take 1 capsule by mouth twice daily. Multivitamin capsule Take 1 capsule by mouth once daily. BIOTIN, BULK, MISC cholecalciferol, vitamin D3, (VITAMIN D3 ORAL) Take by mouth. ascorbic acid (VITAMIN C ORAL) Take by mouth. No current facility-administered medications for this visit. FAMILY HISTORY Problem Relation Age of Onset Arthritis Mother Diabetes Mother Headache Father Lipids Father Headache Sister Diabetes Maternal Grandfather Stroke Maternal Grandfather Alcohol/Drug Paternal Grandmother ETOH Alcohol/Drug Paternal Grandfather ETOH Cancer Paternal Grandfather LUNG Alcohol/Drug Paternal Aunt ETOH Alcohol/Drug Paternal Uncle ETOH Cancer Paternal Uncle LUNG Social History Tobacco Use Smoking status: Former Packs/day: 0.50 Years: 12.00 Additional pack years: 0.00 Total pack years: 6.00 Ty (more content not included)... Normal [facility] XR ABDOMEN 1V SUPINEon 12-15 XR ABDOMEN 1V SUPINE * * *Final Report* * * DATE OF EXAM: Dec 16 2023 10:03AM WOX [id number] - XR ABDOMEN 1V SUPINE / PROCEDURE REASON: Abdominal cramping * * * * Physician Interpretation * * * * XR ABDOMEN 1V SUPINE PROVIDED HISTORY: Abdominal cramping COMPARISON: No previous similar exams are available for comparison TECHNIQUE: Supine abdomen RESULT: Moderate stool in the colon. No free air is seen. No renal calculi are visualized. Osseous structures appear grossly unremarkable. IMPRESSION: Possible constipation Career Development Coordinator/Teacher: JOHNATHAN Transcribe Date/Time: Dec 18 2023 7:02P Dictated by : CHI CROOKS MD This examination was interpreted and the report reviewed and electronically signed by: CHI CROOKS MD on Dec 18 2023 7:03PM EST [id number] Normal [facility] XR Abdomen Supine and Uprigh ton 12-16-2023 Radiology Study observation (narrative) [facility] CBC W Auto Differential pane l (Bld)on 11-13-2023 Basophils (Bld) [#/Vol] 0.05 10*3/uL [facility] Basophils/100 WBC (Bld) 0.7 % [facility] Differential cell count method Nom (Bld) Auto [facility] Eosinophils (Bld) [#/Vol] 0.31 10*3/uL [facility] Eosinophils/100 WBC (Bld) 4.3 % [facility] Erythrocyte distribution width (RBC) [Ratio] 12.8 % 11.5 - 15.0 % [facility] Hematocrit (Bld) [Volume fraction] 40.9 % 36.0 - 46.0 % [facility] Hemoglobin (Bld) [Mass/Vol] 13.5 g/dL 11.5 - 15.5 g/dL [facility] Immature granulocytes (Bld) [#/Vol] NINF [facility] Immature granulocytes/100 WBC (Bld) 0.3 % [facility] Lymphocytes (Bld) [#/Vol] 2.43 10*3/uL [facility] Lymphocytes/100 WBC (Bld) 33.6 % [facility] MCH (RBC) [Entitic mass] 30.0 pg 26.0 - 34.0 pg [facility] MCHC (RBC) [Mass/Vol] 33.0 g/dL 30.5 - 36.0 g/dL [facility] MCV (RBC) [Entitic vol] 90.9 fL 80.0 - 100.0 fL [facility] Monocytes (Bld) [#/Vol] 0.40 10*3/uL [facility] Monocytes/100 WBC (Bld) 5.5 % [facility] Neutrophils (Bld) [#/Vol] 4.02 10*3/uL [facility] Neutrophils/100 WBC (Bld) 55.6 % [facility] Nucleated RBC (Bld) [#/Vol] NINF [facility] Nucleated RBC/100 WBC (Bld) [Ratio] 0.0 % /100 WBC [facility] Platelet mean volume (Bld) [Entitic vol] 11.1 fL 9.0 - 12.7 fL [facility] Platelets (Bld) [#/Vol] 315 10*3/uL [facility] RBC (Bld) [#/Vol] 4.50 10*6/uL 3.90 - 5.20 m/uL [facility] WBC (Bld) [#/Vol] 7.23 10*3/uL [facility] RF Gastrointestinal tract up per Views W barium contrast Herbie 08-28-2023 [facility] XR Cervical spine AP and Lat eral and obliqueon 08-25-2023 IMPRESSION: STRAIGHTENING OF THE NORMAL LORDOSIS. OTHERWISE NORMAL CERVICAL SPINE Career Development Coordinator/Teacher: [facility] Transcribe Date/Time: Aug 25 2023 4:38P Dictated by : GEOVANNY NICOLE MD This examination was interpreted and the report reviewed and electronically signed by: GEOVANNY NICOLE MD on Aug 25 2023 4:39PM [facility] DIVISION OF RADIOLOGY * * *Final Report* * * DATE OF EXAM: Aug 21 2023 11:11AM WOX [id number] - XR CERVICAL 4V AP/LAT/OBL / PROCEDURE REASON: Neck pain * * * * Physician Interpretation * * * * Examination: XR CERVICAL 4V AP/LAT/OBL History: Neck pain Technique: XR CERVICAL 4V AP/LAT/OBL Comparison: 06/30/2016 RESULT: Straightening of the normal lordosis. No fracture or prevertebral swelling. Normal alignment. Disc spaces are maintained. No significant foraminal encroachment DIVISION OF RADIOLOGY Provider, Hermilo Gonzalez [facility] - 08/25/2023 * * *Final Report* * * DATE OF EXAM: Aug 21 2023 11:11AM WOX 5311 - XR CERVICAL 4V AP/LAT/OBL / PROCEDURE REASON: Neck pain * * * * Physician Interpretation * * * * Examination: XR CERVICAL 4V AP/LAT/OBL History: Neck pain Technique: XR CERVICAL 4V AP/LAT/OBL Comparison: 06/30/2016 RESULT: Straightening of the normal lordosis. No fracture or prevertebral swelling. Normal alignment. Disc spaces are maintained. No significant foraminal encroachment IMPRESSION IMPRESSION: STRAIGHTENING OF THE NORMAL LORDOSIS. OTHERWISE NORMAL CERVICAL SPINE Career Development Coordinator/Teacher: [facility] Transcribe Date/Time: Aug 25 2023 4:38P Dictated by : GEOVANNY NICOLE MD This examination was interpreted and the report reviewed and electronically signed by: GEOVANNY NICOLE MD on Aug 25 2023 4:39PM [facility] XR Cervical spine AP and Lat eral and obliqueOrdered By: Ccf Provider on 08-25-2023 [facility] XR Lumbar spine 3 Viewson IMPRESSION: 1. Mild lumbar spondylosis. Career Development Coordinator/Teacher: [facility] Transcribe Date/Time: Aug 25 2023 5:03P Dictated by : VANNA GRANDE MD This examination was interpreted and the report reviewed and electronically signed by: VANNA GRANDE MD on Aug 25 2023 5:04PM [facility] DIVISION OF RADIOLOGY * * *Final Report* * * DATE OF EXAM: Aug 21 2023 11:11AM WOX 5228 - XR LUMBAR 3V AP/LAT/L5-S1 / PROCEDURE REASON: Low back pain with sciatica, sciatica laterality unspecified, unspecified back p * * * * Physician Interpretation * * * * LUMBAR SPINE RADIOGRAPHS HISTORY: Low back pain with sciatica, sciatica laterality unspecified, unspecified back pain laterality, unspecified chronicity TECHNOLOGIST PROVIDED HISTORY (if applicable): pain on left side of neck into left shoulder and left si joint to center L5 area for 2 weeks no inj TECHNIQUE: XR LUMBAR 3V AP/LAT/L5-S1 COMPARISON: Radiographs 09/23/2019 RESULT: Counting reference: Lumbosacral junction. For the purposes of this report, L5-S1 is considered the last lumbar type disc space and L4-L5 is considered the level of the iliac crest. Vertebral bodies have normal height and contour. There is no compression deformity or acute bony abnormality identified. Slight dextrocurvature at T12 Grade 1 retrolisthesis at L2-3 Lumbar disc spaces appear preserved with small endplate osteophytes Mild distal lumbar facet arthrosis . Surgical clips in the left upper quadrant DIVISION OF RADIOLOGY Provider, [facility] Carlos [facility] - 08/25/2023 * * *Final Report* * * DATE OF EXAM: Aug 21 2023 11:11AM WOX 5228 - XR LUMBAR 3V AP/LAT/L5-S1 / PROCEDURE REASON: Low back pain with sciatica, sciatica laterality unspecified, unspecified back p * * * * Physician Interpretation * * * * LUMBAR SPINE RADIOGRAPHS HISTORY: Low back pain with sciatica, sciatica laterality unspecified, unspecified back pain laterality, unspecified chronicity TECHNOLOGIST PROVIDED HISTORY (if applicable): pain on left side of neck into left shoulder and left si joint to center L5 area for 2 weeks no inj TECHNIQUE: XR LUMBAR 3V AP/LAT/L5-S1 COMPARISON: Radiographs 09/23/2019 RESULT: Counting reference: Lumbosacral junction. For the purposes of this report, L5-S1 is considered the last lumbar type disc space and L4-L5 is considered the level of the iliac crest. Vertebral bodies have normal height and contour. There is no compression deformity or acute bony abnormality identified. Slight dextrocurvature at T12 Grade 1 retrolisthesis at L2-3 Lumbar disc spaces appear preserved with small endplate osteophytes Mild distal lumbar facet arthrosis . Surgical clips in the left upper quadrant IMPRESSION IMPRESSION: 1. Mild lumbar spondylosis. Career Development Coordinator/Teacher: [facility] Transcribe Date/Time: Aug 25 2023 5:03P Dictated by : VANNA GRANDE MD This examination was interpreted and the report reviewed and electronically signed by: VANNA GRANDE MD on Aug 25 2023 5:04PM EST [facility] No Panel Informationon 08-20 Radiology Study observation (narrative) [facility] MG Breast Screeningon 2023 [facility] XR KNEE GENERAL 4V AP BOTH/P A BOTH/LAT/MERC LEFTon 11-03-2022 [facility] XR Knee - left 4 Viewson IMPRESSION: Findings are suggestive of mild degenerative changes in the left knee. Career Development Coordinator/Teacher: JOHNATHAN Transcribe Date/Time: Nov 03 2022 5:08P Dictated by : PASCUAL MCCANN MD This examination was interpreted and the report reviewed and electronically signed by: PASCUAL MCCANN MD on Nov 03 2022 5:09PM [facility] DIVISION OF RADIOLOGY * * *Final Report* * * DATE OF EXAM: Nov 03 2022 3:21PM WOX 5202 - XR KNEE 4V AP/PA BOTH+LAT/TAYLOR LT / PROCEDURE REASON: Acute pain of left knee * * * * Physician Interpretation * * * * EXAM TITLE: XR KNEE 4V AP/PA BOTH+LAT/TAYLOR LT EXAM DATE/TIME: 11/03/2022 3:21 PM COMPARISON: X-ray knee on 10/29/2020 CLINICAL INDICATION/HISTORY: Acute left knee pain. TECHNIQUE: AP/PA, lateral and sunrise views of the left knee are presented. FINDINGS: No fractures or subluxations are noted. Tiny marginal bony spurs are visualized. The joint spaces are grossly preserved. There is no evidence of joint effusion. The mineralization of the bones is normal. There is no significant soft tissue swelling. DIVISION OF RADIOLOGY Provider, Hermilo Gonzalez [facility] - 11/03/2022 * * *Final Report* * * DATE OF EXAM: Nov 03 2022 3:21PM WOX 5202 - XR KNEE 4V AP/PA BOTH+LAT/TAYLOR LT / PROCEDURE REASON: Acute pain of left knee * * * * Physician Interpretation * * * * EXAM TITLE: XR KNEE 4V AP/PA BOTH+LAT/TAYLOR LT EXAM DATE/TIME: 11/03/2022 3:21 PM COMPARISON: X-ray knee on 10/29/2020 CLINICAL INDICATION/HISTORY: Acute left knee pain. TECHNIQUE: AP/PA, lateral and sunrise views of the left knee are presented. FINDINGS: No fractures or subluxations are noted. Tiny marginal bony spurs are visualized. The joint spaces are grossly preserved. There is no evidence of joint effusion. The mineralization of the bones is normal. There is no significant soft tissue swelling. IMPRESSION IMPRESSION: Findings are suggestive of mild degenerative changes in the left knee. Career Development Coordinator/Teacher: [facility]PITAL[facility]ole Transcribe Date/Time: Nov 03 2022 5:08P Dictated by : PASCUAL MCCANN MD This examination was interpreted and the report reviewed and electronically signed by: PASCUAL MCCANN MD on Nov 03 2022 5:09PM EST [facility] Radiology Study observation (narrative) [facility] XR Knee - left 4 ViewsOrdere d By: Ccf Provider on 11-03-2022 [facility] Absolute lymphocyte countOrd ered By: Marcelina Vizcarra on 09-13-2022 Lymphocytes Auto (Unsp spec) [#/Vol] 2.91 10*3/uL 0.83-4.51 [facility] Basophil percentageOrdered B y: Marcelina Vizcarra on 09-13-2022 Basophils/100 WBC (Bld) 0.6 % 0-1 [facility] Chloride [Moles/Vol] 109 mmol/L 98-[address] [facility] [facility] Eosinophils/100 WBC (Bld) 3.6 % 0-5 [facility] Glucose [Mass/Vol] 75 mg/dL 74-106 [place] [facility] Neutrophils (Bld) [#/Vol] 4.2 10*3/uL 2.0-7.7 [facility] Neutrophils/100 WBC (Bld) 51.8 % 47-70 [facility] Potassium [Moles/Vol] 3.4 mmol/L 3.5-5.1 [facility] Sodium [Moles/Vol] 140 mmol/L 136-145 [facility] WBC (Bld) [#/Vol] 8.1 10*3/uL 4.4-11.0 [facility] Blood erythrocytes count (nu mber/volume)Ordered By: Marcelina Vizcarra on 09-13-2022 RBC (Bld) [#/Vol] 4.12 10*6/uL 4.2-5.4 [facility] Blood hemoglobin measurement (mass/volume)Ordered By: Marcelina Vizcarra on 09-13-2022 Hemoglobin (Bld) [Mass/Vol] 12.4 g/dL 12.0-15.0 [facility] Blood lymphocytes/100 leukoc ytesOrdered By: Marcelina Vizcarra on 09-13-2022 Lymphocytes/100 WBC (Bld) 36.1 % 19-41 [facility] Blood monocytes/100 leukocyt esOrdered By: Marcelina Vizcarra on 09-13-2022 Monocytes/100 WBC (Bld) 7.8 % 0-10 [facility] Blood platelet mean volumeOr dered By: Marcelina Vizcarra on 09-13-2022 Platelet mean volume (Bld) [Entitic vol] 10.4 fL 6.2-12.0 [facility] Determination of erythrocyte mean corpuscular volume (MCV)Ordered By: Marcelina Vizcarra on 09-13-2022 MCV (RBC) [Entitic vol] 91.3 fL 81-99 [facility] Hematocrit Auto (Bld) [Volum e fraction]Ordered By: Marcelina Vizcarra on 09-13-2022 Hematocrit (Bld) [Volume fraction] 37.6 % 37-47 [facility] Laboratory - Chemistry and C hemistry - challengeOrdered By: Marcelina Vizcarra on 09-13-2022 CO2 [Moles/Vol] 26.0 mmol/L 21.0-32.0 [facility] Urea nitrogen/Creatinine [Mass ratio] 12.9 mg/mg 10-20 [facility] Laboratory - Hematology and Cell countsOrdered By: Marcelina Vizcarra on 09-13-2022 Erythrocyte distribution width (RBC) [Entitic vol] 42.5 fL 35.1-43.9 [facility] Erythrocyte distribution width (RBC) [Ratio] 12.8 % 11.6-14.6 [facility] Immature granulocytes/100 WBC (Bld) 0.100 % 0.0-0.9 [facility] Comment on above: IG% - Immature Granu locytes (promyelocytes, myelocytes and metamyelocytes) > 1% indicates that a LEFT SHIFT is Present. MCH (RBC) [Entitic mass] 30.1 pg 27.0-32.0 [facility] Nucleated RBC/100 WBC (Bld) [Ratio] 0 % 0-5 [facility] MCHC Auto (RBC) [Mass/Vol]Or dered By: Marcelina Vizcarra on 09-13-2022 MCHC (RBC) [Mass/Vol] 33.0 g/dL 32-36 [facility] No Panel InformationOrdered By: Marcelina Vizcarra on 09-13-2022 Estimated Creatinine Clearance Calc 76.93 ml/min [facility] Estimated GFR (MDRD) Amer 104 mL/min >60 [facility] Comment on above: GFR Calc Estimated GFR (MDRD) Non-Af Amer 86 mL/min >60 [facility] Comment on above: Non- GFR Calc Troponin I High Sensitivity 5 pg/mL 3.0-54.0 [facility] Comment on above: Please Note: New Karol t Units and Gender Specific Reference Ranges. For more information see Policy Stat Procedure Scotts High Sensitivity Troponin (TNIH) and attachments. Platelets bldOrdered By: Vinicio Vizcarra on 09-13-2022 Platelets (Bld) [#/Vol] 314 10*3/uL 150-450 [facility] Serum or plasma calcium ta urement (mass/volume)Ordered By: Marcelina Vizcarra on 09-13-2022 Calcium [Mass/Vol] 8.5 mg/dL 8.5-10.1 [facility] Serum or plasma creatinine m easurement (mass/volume)Ordered By: Marcelina Vizcarra on 09-13-2022 Creatinine [Mass/Vol] 0.78 mg/dL 0.55-1.02 [facility] Comment on above: The validity of the calculated GFR & GFRAA in patients over 70 years has not been determined. Clinical correlation is essential. Serum or plasma urea nitroge n measurement (mass/volume)Ordered By: Marcelina Vizcarra on 09-13-2022 Urea nitrogen [Mass/Vol] 10 mg/dL 7-18 [facility] Thin prep Papanicolaou smear with manual screeningOrdered By: Marcelina Vizcarra on 09-13-2022 Thin prep Papanicolaou smear with manual screening 5 5-15 [facility] XR Chest PA and Lateralon IMPRESSION: No acute radiographic abnormality. Career Development Coordinator/Teacher: [employer] Transcribe Date/Time: Apr 23 2022 8:27A Dictated by : DAVID BURR MD This examination was interpreted and the report reviewed and electronically signed by: DAVID BURR MD on Apr 23 2022 8:28AM [facility] DIVISION OF RADIOLOGY * * *Final Report* * * DATE OF EXAM: Apr 23 2022 8:26AM WOX 5291 - XR CHEST 2V FRONTAL/LAT / PROCEDURE REASON: Acute cough * * * * Physician Interpretation * * * * EXAMINATION: CHEST RADIOGRAPH (2 VIEW FRONTAL & LATERAL) CLINICAL HISTORY: Acute cough MQ: XC2_6 EXAM DATE/TIME: 04/23/2022 8:26 AM COMPARISON: Chest x-ray dated March 08, 2021 RESULT: Lines, tubes, and devices: None. Lungs and pleura: No consolidation. No lung mass. No pleural effusion. No pneumothorax. Cardiomediastinal silhouette: Normal cardiomediastinal silhouette. Bones and soft tissues: Minimal degenerative changes. DIVISION OF RADIOLOGY Provider, [facility] - 04/23/2022 * * *Final Report* * * DATE OF EXAM: Apr 23 2022 8:26AM WOX 5291 - XR CHEST 2V FRONTAL/LAT / PROCEDURE REASON: Acute cough * * * * Physician Interpretation * * * * EXAMINATION: CHEST RADIOGRAPH (2 VIEW FRONTAL & LATERAL) CLINICAL HISTORY: Acute cough MQ: XC2_6 EXAM DATE/TIME: 04/23/2022 8:26 AM COMPARISON: Chest x-ray dated March 08, 2021 RESULT: Lines, tubes, and devices: None. Lungs and pleura: No consolidation. No lung mass. No pleural effusion. No pneumothorax. Cardiomediastinal silhouette: Normal cardiomediastinal silhouette. Bones and soft tissues: Minimal degenerative changes. IMPRESSION IMPRESSION: No acute radiographic abnormality. Career Development Coordinator/Teacher: JOHNATHAN Transcribe Date/Time: Apr 23 2022 8:27A Dictated by : DAVID BURR MD This examination was interpreted and the report reviewed and electronically signed by: DAVID BURR MD on Apr 23 2022 8:28AM EST [facility] Radiology Study observation (narrative) [facility] XR Chest PA and LateralOrder ed By: Ccf Provider on 04-23-2022 [facility] UA DIP, URINE (POC)on 2021 BILIRUBIN UA (POCT) Negative Negative [facility] CLARITY UA (POCT) Clear [facility] COLOR UA (POCT) Asya [facility] GLUCOSE UA (POCT) Negative Negative mg/dL [facility] HEMOGLOBIN/BLOOD UA (POCT) Negative Negative [facility] KETONE UA (POCT) Negative Negative mg/dL [facility] LEUKOCYTES UA (POCT) Small Abnormal Negative [facility] NITRITE UA (POCT) Negative Negative [facility] PH UA (POCT) 6.0 4.5 - 8.0 [facility] Protein Ql (U) Negative Negative mg/dL [facility] SPECIFIC GRAVITY UA (POCT) >=1.030 1.005 - 1.030 [facility] UROBILINOGEN UA (POCT) 0.2 E.U./dL Caprice l E.U./dL [facility] XR FOOT GENERAL 3V AP/LAT/OB L RIGHTon [facility] - right [facility] and Later al and obliqueon 10-07-2021 * * *Final Report* * * DATE OF EXAM: Oct 07 2021 8:15AM WOX 5337 - XR FOOT 3V AP/LAT/OBL RT / PROCEDURE REASON: multiple diagnoses * * * * Physician Interpretation * * * * Indication: Right foot pain after fall Comparison: None 3 views of the right foot are obtained. There is normal architecture and mineralization of the bones. There is no acute fracture or dislocation. Joint spaces are maintained. Impression: 1. No acute fracture or dislocation. Career Development Coordinator/Teacher: JOHNATHAN Transcribe Date/Time: Oct 07 2021 8:16A Dictated by : INDIRA LANTIGUA MD This examination was interpreted and the report reviewed and electronically signed by: INDIRA LANTIGUA MD on Oct 07 2021 8:21AM EST [email or web address] [email or web address] N OF RADIOLOGY Provider, [facility] - 10/07/2021 * * *Final Report* * * DATE OF EXAM: Oct 07 2021 8:15AM WOX 5337 - XR FOOT 3V AP/LAT/OBL RT / PROCEDURE REASON: multiple diagnoses * * * * Physician Interpretation * * * * Indication: Right foot pain after fall Comparison: None 3 views of the right foot are obtained. There is normal architecture and mineralization of the bones. There is no acute fracture or dislocation. Joint spaces are maintained. Impression: 1. No acute fracture or dislocation. Career Development Coordinator/Teacher: JOHNATHAN Transcribe Date/Time: Oct 07 2021 8:16A Dictated by : INDIRA LANTIGUA MD This examination was interpreted and the report reviewed and electronically signed by: INDIRA LANTIGUA MD on Oct 07 2021 8:21AM EST [facility] Radiology Study observation (narrative) [facility] XR Foot - right AP and Later al and obliqueOrdered By: Ccf Provider on 10-07-2021 [facility] XR Chest PA and Lateralon IMPRESSION: No acute radiographic abnormality. Career Development Coordinator/Teacher: [facility] Transcribe Date/Time: Mar 08 2021 9:49A Dictated by : INDIRA LANTIGUA MD This examination was interpreted and the report reviewed and electronically signed by: INDIRA LANTIGUA MD on Mar 08 2021 9:53AM EST DIVISION OF RADIOLOGY * * *Final Report* * * DATE OF EXAM: Mar 08 2021 9:48AM WOX 5291 - XR CHEST 2V FRONTAL/LAT / PROCEDURE REASON: multiple diagnoses * * * * Physician Interpretation * * * * EXAMINATION: CHEST RADIOGRAPH (2 VIEW FRONTAL & LATERAL) CLINICAL HISTORY: Bronchitis due to COVID-19 virus Bronchitis due to COVID-19 virus MQ: XC2_6 EXAM DATE/TIME: 03/08/2021 9:48 AM COMPARISON: Chest x-ray 06/07/2020 RESULT: Lines, tubes, and devices: None. Lungs and pleura: No consolidation. No lung mass. No pleural effusion. No pneumothorax. Cardiomediastinal silhouette: Normal cardiomediastinal silhouette. Bones and soft tissues: Unremarkable. DIVISION [facility]IOLOGY [facility] * * *Final Report* * * DATE OF EXAM: Mar 08 2021 9:48AM WOX 5291 - XR CHEST 2V FRONTAL/LAT / PROCEDURE REASON: multiple diagnoses * * * * Physician Interpretation * * * * EXAMINATION: CHEST RADIOGRAPH (2 VIEW FRONTAL & LATERAL) CLINICAL HISTORY: Bronchitis due to COVID-19 virus Bronchitis due to COVID-19 virus MQ: XC2_6 EXAM DATE/TIME: 03/08/2021 9:48 AM COMPARISON: Chest x-ray 06/07/2020 RESULT: Lines, tubes, and devices: None. Lungs and pleura: No consolidation. No lung mass. No pleural effusion. No pneumothorax. Cardiomediastinal silhouette: Normal cardiomediastinal silhouette. Bones and soft tissues: Unremarkable. IMPRESSION IMPRESSION: No acute radiographic abnormality. Career Development Coordinator/Teacher: JOHNATHAN Transcribe Date/Time: Mar 08 2021 9:49A Dictated by : INDIRA LANTIGUA MD This examination was interpreted and the report reviewed and electronically signed by: INDIRA LANTIGUA MD on Mar 08 2021 9:53AM EST [facility] Radiology Study observation (narrative) [facility] PA and LateralOrder ed By: Ccf Provider on 03-08-2021 [facility] XR Knee - left 4 Viewson Radiology Study observation (narrative) [facility] IMPRESSION: Mild degenerative changes as described. Career Development Coordinator/Teacher: [employer] Transcribe Date/Time: Oct 29 2020 1:25P Dictated by : DAVID BURR MD This examination was interpreted and the report reviewed and electronically signed by: DAVID BURR MD on Oct 29 2020 1:27PM [facility] DIVISION OF RADIOLOGY * * *Final Report* * * DATE OF EXAM: Oct 29 2020 1:23PM WOX 5202 - XR KNEE 4V AP/PA BOTH+LAT/TAYLOR LT / PROCEDURE REASON: Acute pain of left knee * * * * Physician Interpretation * * * * CLINICAL INDICATION: Acute pain TECHNIQUE: AP/PA/merchant radiographs of both knees and lateral radiograph of the left knee COMPARISON: Radiograph dated February 11, 2019 FINDINGS: Left knee: Small suprapatellar joint effusion. No acute fracture or dislocation. Mild medial and patellofemoral compartmental joint space narrowing. Right knee: No fracture or dislocation. Mild medial and patellofemoral compartmental joint space narrowing. DIVISION OF RADIOLOGY Provider, [facility] - 10/29/2020 * * *Final Report* * * DATE OF EXAM: Oct 29 2020 1:23PM WOX 5202 - XR KNEE 4V AP/PA BOTH+LAT/TAYLOR LT / PROCEDURE REASON: Acute pain of left knee * * * * Physician Interpretation * * * * CLINICAL INDICATION: Acute pain TECHNIQUE: AP/PA/merchant radiographs of both knees and lateral radiograph of the left knee COMPARISON: Radiograph dated February 11, 2019 FINDINGS: Left knee: Small suprapatellar joint effusion. No acute fracture or dislocation. Mild medial and patellofemoral compartmental joint space narrowing. Right knee: No fracture or dislocation. Mild medial and patellofemoral compartmental joint space narrowing. IMPRESSION IMPRESSION: Mild degenerative changes as described. Career Development Coordinator/Teacher: JOHNATHAN Transcribe Date/Time: Oct 29 2020 1:25P Dictated by : DAVID BURR MD This examination was interpreted and the report reviewed and electronically signed by: DAVID BURR MD on Oct 29 2020 1:27PM EST [facility] XR Knee - left 4 ViewsOrdere d By: Ccf Provider on 10-29-2020 [facility] XR Shoulder - left 3 Viewson 04-13-2020 IMPRESSION: Endings are suggestive of degenerative changes of the acromioclavicular joint. Career Development Coordinator/Teacher: [employer] Transcribe Date/Time: Apr 13 2020 3:31P Dictated by : PASCUAL MCCANN MD This examination was interpreted and the report reviewed and electronically signed by: PASCUAL MCCANN MD on Apr 13 2020 3:47PM [facility] DIVISION OF RADIOLOGY * * *Final Report* * * DATE OF EXAM: Apr 13 2020 3:03PM WOX 5252 - XR SHLDR >/=3V AP/SHAHZAD AP/OTHR LT / PROCEDURE REASON: Acute pain of left shoulder * * * * Physician Interpretation * * * * EXAM TITLE: XR SHLDR >/=3V AP/SHAHZAD AP/OTHR LT EXAM DATE/TIME: 04/13/2020 3:03 PM COMPARISON: None. CLINICAL INDICATION/HISTORY: Shoulder pain. TECHNIQUE: AP, AP and axillary views of the left shoulder are presented. FINDINGS: No acute fractures or subluxations are noted. There appears to be mild acromioclavicular joint space narrowing, with associated osteophyte formation, bony sclerosis and cystic formation. Normal appearance of the glenohumeral joint. The acromiohumeral interval is maintained. The mineralization of the bones is normal. There is no significant soft tissue swelling. DIVISION OF RADIOLOGY Provider, [facility] - 04/13/2020 * * *Final Report* * * DATE OF EXAM: Apr 13 2020 3:03PM WOX 5252 - XR SHLDR >/=3V AP/SHAHZAD AP/OTHR LT / PROCEDURE REASON: Acute pain of left shoulder * * * * Physician Interpretation * * * * EXAM TITLE: XR SHLDR >/=3V AP/SHAHZAD AP/OTHR LT EXAM DATE/TIME: 04/13/2020 3:03 PM COMPARISON: None. CLINICAL INDICATION/HISTORY: Shoulder pain. TECHNIQUE: AP, AP and axillary views of the left shoulder are presented. FINDINGS: No acute fractures or subluxations are noted. There appears to be mild acromioclavicular joint space narrowing, with associated osteophyte formation, bony sclerosis and cystic formation. Normal appearance of the glenohumeral joint. The acromiohumeral interval is maintained. The mineralization of the bones is normal. There is no significant soft tissue swelling. IMPRESSION IMPRESSION: Endings are suggestive of degenerative changes of the acromioclavicular joint. 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 This test was developed and its performance characteristics determined by [facility]'s [facility] Pathology and Laboratory Medicine [place]. This test has been authorized by FDA under an Emergency Use Authorization (EUA). This test has been validated in accordance with the FDA's Guidance Document Policy for Diagnostics Testing in Laboratories Certified to Perform High Complexity Testing under CLIA prior to Emergency use Authorization for Coronavirus Disease 2019 during the Public Health Emergency issued on July 23, 2019. Performed By: [facility] [employer] [place] [address] Carry All Driver: Alex Bass III, M.D. CLIA#: [id number] Phone#: Performed By: #### C OVID #### [address] [address] COVID 19 Source AIRCRAFT SALES REPRESENTATIVE See Below [facility] ([place]) Comment on above: Result Comment: Naso pharyngeal Swab Performed By: [place] [id number] [place] [address] Carry All Driver: Alex Bass III, M.D. CLIA#: [id number] Phone#: Performed By: #### C OVID #### [address] [address] Date of Onset 20200214 [facility] ([place]) Comment on above: Performed By: #### C OVID #### [address] [address] Employed in Healthcare No [facility] ([place]) Comment on above: Performed By: #### C OVID #### [id number] [place], [place] [address] First Test No [facility] ([place] Comment on above: Performed By: #### C OVID #### [address] [place], [place] [address] Hospitalized No [facility] ([place] Comment on above: Performed By: #### C OVID #### [address] [place], [place] [address] ICU No [facility] ([place] Comment on above: Performed By: #### C OVID #### [address] [place] [address] [place] [address] Not [facility] ([place] Comment on above: Performed By: #### C OVID #### [address] [id number] [place] [address] Resides in Congregate Care Setting No [facility] ([place] Comment on above: Performed By: #### C OVID #### [address] [place] [place] [address] Symptomatic as Defined by CDC Yes [facility] ([place] Comment on above: Performed By: #### C OVID #### [address] [place] [address] [place] [address] 24 HR HOLTER MONITORon 04-29 24 HR HOLTER MONITOR IMPRESSIONS AND FINDINGS:Scanned [id number] basic underlying rhythm is sinus with an average rate of 90 BPM, a minimum rate of 67 BPM and a maximum rate of 133 BPM. T achycardia was seen in21% of the scan.There were 14 isolated premature atrial complexes and one atrial couplet. There was one atrial run which consisted of three be ats at a rate of 123BPM occurring at 16:08 on 29-Apr-2018.There were 2,068 isolated premature ventricular complexes and 360 bigeminal cycles.The patient pushed the event button 90 times while wearing the monitor. Most diary entries of 'palpitations' correlated with i solated prematureventricular complexes. Hookup Date: 20180429 Hookup Time: [id number] Recording Duration: 54523 S Minimum Heart Rate: 67 BPM Minimum Heart Rate Date/Time: 20180430 499009 Maximum Heart Rate: 133 BPM Maximum Heart Rate Date/Time: [id number] Average Heart Rate: 90 BPM Longest RR: 1.112 S Longest RR DATE/TIME: 20180430 [id number] QRS complexes: [id number] Ventricular Ectopics: 2068 Ventricular Isolated Beats: 2068 Ventricular Bigeminal Cycles: 360 Ventricular Couplets: 0 Ventricular Runs: 0 Ventricular Beats in Runs: 0 Supraventricular Ectopics: 19 Supraventricular Isolated Beats: 14 Supraventricular Couplets: 1 Supraventricular Runs: 1 Supraventricular Beats in Runs: 3 Longest Supraventricular Run Date/Time: 20180429 Fastest Supraventricular Run, Date/Time: 20180429 Maximum S-T Levels Channel 1: -12.800 mm Maximum S-T Levels Channel 1 Date/Time: 20180429 387673 Minimum S-T Levels Channel 1: -12.800 mm Minimum S-T Levels Channel 1 Date/Time: 20180429 777921 Maximum S-T Levels Channel 2: -12.800 mm Minimum S-T Levels Channel 2: -12.800 mm Minimum S-T Levels Channel 2 Date/Time: 20180429 596028 Overreading Physician: SHASHI HOLLAND M.D. See Holter MUSE for ECG strips. [facility] Vital Signs Date Time Vital Sign Value Performing Clinician Facility 10-31-2024 12:56-0400 Body height 160.02 cm Bettina Fuentes DERRICK FOLLOWER Work Phone: [facility] 10-31-2024 12:56-0400 Body mass index (BMI) [Ratio] 42.5 kg/m2 Bettina Fuentes DERRICK FOLLOWER Work Phone: [facility] 10-31-2024 12:56-0400 Body weight 108.86 kg Bettina Fuentes DERRICK FOLLOWER Work Phone: [facility] 09-13-2024 09:07-0400 Body height 160.[address] Corey Tristan MD Work Phone: [facility] 09-13-2024 09:07-0400 Body mass index (BMI) [Ratio] 42.5 kg/m2 Dr. Corey Tristan MD Work Phone: [facility] 09-13-2024 09:07-0400 Body weight 108.[address] Corey Tristan MD Work Phone: [facility] 09-06-2024 09:10-0400 Body mass index (BMI) [Ratio] 42.5 kg/m2 Dr. Corey Tristan MD Work Phone: [facility] 09-06-2024 09:10-0400 Body weight 108.[address] Corey Tristan MD Work Phone: [facility] 08-10-2024 09:03-0400 Body temperature 97.81 [degF] Ashlee David MEDICAL ONCOLOGY PHYSICIAN.AGENCY OWNER Work Phone: [facility] 08-08-2024 10:01-0400 Body mass index (BMI) [Ratio] 44.08 kg/m2 Bettina Suppan MEDICAL ONCOLOGY PHYSICIAN.AGENCY OWNER Work Phone: [facility] 08-08-2024 10:01-0400 Body temperature 97.59 [degF] Bettina Suppan MEDICAL ONCOLOGY PHYSICIAN.AGENCY OWNER Work Phone: [facility] 08-08-2024 10:01-0400 Body weight 109.32 kg Bettina Suppan MEDICAL ONCOLOGY PHYSICIAN.AGENCY OWNER Work Phone: [facility] 08-08-2024 10:01-0400 Diastolic blood pressure 78 mm[Hg] Bettina Suppan MEDICAL ONCOLOGY PHYSICIAN.AGENCY OWNER Work Phone: [facility] 08-08-2024 10:01-0400 Heart rate 77 /min Bettina Suppan MEDICAL ONCOLOGY PHYSICIAN.AGENCY OWNER Work Phone: [facility] 08-08-2024 10:01-0400 SaO2% (BldA) [Mass fraction] 100 % Bettina Suppan MEDICAL ONCOLOGY PHYSICIAN.AGENCY OWNER Work Phone: [facility] 08-08-2024 10:01-0400 Systolic blood pressure 130 mm[Hg] Bettina Suppan MEDICAL ONCOLOGY PHYSICIAN.AGENCY OWNER Work Phone: [facility] 08-04-2024 14:06-0400 Body temperature 98.4 [degF] Ashlee David MEDICAL ONCOLOGY PHYSICIAN.AGENCY OWNER Work Phone: [facility] 08-02-2024 13:19-0400 Body height 157.5 cm Ashish Calvillo MD Work Phone: [facility] 08-02-2024 13:19-0400 Body mass index (BMI) [Ratio] 44.7 kg/m2 Ashish Calvillo MD Work Phone: [facility] 08-02-2024 13:19-0400 Body temperature 97.7 [degF] Ashish Calvillo MD Work Phone: [facility] 08-02-2024 13:19-0400 Body weight 110.86 kg Ashish Calvillo MD Work Phone: [facility] 08-02-2024 13:19-0400 Diastolic blood pressure 84 mm[Hg] Ashish Calvillo MD Work Phone: [facility] 08-02-2024 13:19-0400 Heart rate 92 /min Ashish Calvillo MD Work Phone: [facility] 08-02-2024 13:19-0400 SaO2% (BldA) [Mass fraction] 100 % Ashish Calvillo MD Work Phone: [facility] 08-02-2024 13:19-0400 Systolic blood pressure 132 mm[Hg] Ashish Calvillo MD Work Phone: [facility] 08-01-2024 15:06-0400 Body mass index (BMI) [Ratio] 44.45 kg/m2 Bettina Suppan MEDICAL ONCOLOGY PHYSICIAN.AGENCY OWNER Work Phone: [facility] 08-01-2024 15:06-0400 Body temperature 98.8 [degF] Bettina Suppan MEDICAL ONCOLOGY PHYSICIAN.AGENCY OWNER Work Phone: [facility] 08-01-2024 15:06-0400 Body weight 110.22 kg Bettina Suppan MEDICAL ONCOLOGY PHYSICIAN.AGENCY OWNER Work Phone: [facility] 08-01-2024 15:06-0400 Diastolic blood pressure 88 mm[Hg] Bettina Suppan MEDICAL ONCOLOGY PHYSICIAN.AGENCY OWNER Work Phone: [facility] 08-01-2024 15:06-0400 Heart rate 75 /min Bettina Suppan MEDICAL ONCOLOGY PHYSICIAN.AGENCY OWNER Work Phone: [facility] 08-01-2024 15:06-0400 SaO2% (BldA) [Mass fraction] 98 % Bettina Suppan MEDICAL ONCOLOGY PHYSICIAN.AGENCY OWNER Work Phone: [facility] 08-01-2024 15:06-0400 Systolic blood pressure 132 mm[Hg] Bettina Suppan MEDICAL ONCOLOGY PHYSICIAN.AGENCY OWNER Work Phone: [facility] 07-25-2024 10:53-0500 Body height 157.5 cm Lillie MyCubeiglos PA-C Work Phone: [facility] 07-25-2024 10:53-0500 Body mass index (BMI) [Ratio] 44.45 kg/m2 Lillie MyCubeiglos PA-C Work Phone: [facility] 07-25-2024 10:53-0500 Body weight 110.22 kg Lillie MyCubeiglos PA-C Work Phone: [facility] 07-21-2024 11:28-0500 Body mass index (BMI) [Ratio] 43.9 kg/m2 Bettina Suppan MEDICAL ONCOLOGY PHYSICIAN.AGENCY OWNER Work Phone: [facility] 07-21-2024 11:28-0500 Body temperature 97 [degF] Bettina Suppan MEDICAL ONCOLOGY PHYSICIAN.AGENCY OWNER Work Phone: [facility] 07-21-2024 11:28-0500 Body weight 108.86 kg Bettina Suppan MEDICAL ONCOLOGY PHYSICIAN.AGENCY OWNER Work Phone: [facility] 07-21-2024 11:28-0500 Diastolic blood pressure 88 mm[Hg] Bettina Suppan MEDICAL ONCOLOGY PHYSICIAN.AGENCY OWNER Work Phone: [facility] 07-21-2024 11:28-0500 Heart rate 79 /min Bettina Suppan MEDICAL ONCOLOGY PHYSICIAN.AGENCY OWNER Work Phone: [facility] 07-21-2024 11:28-0500 SaO2% (BldA) [Mass fraction] 99 % Bettina Suppan MEDICAL ONCOLOGY PHYSICIAN.AGENCY OWNER Work Phone: [facility] 07-21-2024 11:28-0500 Systolic blood pressure 122 mm[Hg] Bettina Fuentes APRN.AGENCY OWNER Work Phone: [facility] 07-18-2024 22:57-0500 Body temperature 98.7 [degF] Dr. Corey Tristan MD Work Phone: 3(097)568-428925 [place] [address] 07-18-2024 22:57-0500 Diastolic blood pressure 87 mm[Hg] Dr. Corey Tristan MD Work Phone: 8(954)913-409825 [place] [address] 07-18-2024 22:57-0500 Heart rate 71 /min Dr. Corey Tristan MD Work Phone: 6(071)308-076425 [place] [address] 07-18-2024 22:57-0500 Respiratory rate 16 /min Dr. Corey Tristan MD Work Phone: 1(557)115-971225 [place] [address] 07-18-2024 22:57-0500 SaO2% (BldA) [Mass fraction] 100 % Dr. Corey Tristan MD Work Phone: 6(222)580-013825 [place] [address] 07-18-2024 22:57-0500 Systolic blood pressure 147 mm[Hg] Dr. Corey Tristan MD Work Phone: 7(038)863-729725 [place] [address] 07-18-2024 18:47-0500 Body height 160.[address] Corey Tristan MD Work Phone: 0(840)463-487525 [place] [address] 07-18-2024 18:47-0500 Body mass index (BMI) [Ratio] 43.1 kg/m2 Dr. Corey Tristan MD Work Phone: 1(220)034-149025 [place] [address] 07-18-2024 18:47-0500 Body weight 110.[address] Corey Tristan MD Work Phone: 0(178)295-367925 [place] [address] 07-18-2024 07:49-0500 Body temperature 98.5 [degF] Dr. Corey Tristan MD Work Phone: 0(603)470-932125 [place] [address] 07-18-2024 07:49-0500 Diastolic blood pressure 68 mm[Hg] Dr. Corey Tristan MD Work Phone: [facility] 07-18-2024 07:49-0500 Heart rate 85 /min Dr. Corey Tristan MD Work Phone: [facility] 07-18-2024 07:49-0500 Respiratory rate 12 /min Dr. Corey Tristan MD Work Phone: [facility] 07-18-2024 07:49-0500 SaO2% (BldA) [Mass fraction] 98 % Dr. Corey Tristan MD Work Phone: [facility] 07-18-2024 07:49-0500 Systolic blood pressure 118 mm[Hg] Dr. Corey Tristan MD Work Phone: [facility] 07-16-2024 08:19-0500 Body mass index (BMI) [Ratio] 45.04 kg/m2 Krislyn Aberegg PA Work Phone: [facility] 07-16-2024 08:19-0500 Body temperature 98.01 [degF] Krislyn Aberegg PA Work Phone: [facility] 07-16-2024 08:19-0500 Body weight 111.7 kg Krislyn Aberegg PA Work Phone: [facility] 07-16-2024 08:19-0500 Diastolic blood pressure 100 mm[Hg] Krislyn Aberegg PA Work Phone: [facility] 07-16-2024 08:19-0500 Heart rate 88 /min Krislyn Aberegg PA Work Phone: [facility] 07-16-2024 08:19-0500 Respiratory rate 21 /min Krislyn Aberegg PA Work Phone: [facility] 07-16-2024 08:19-0500 SaO2% (BldA) [Mass fraction] 98 % Krislyn Aberegg PA Work Phone: [facility] 07-16-2024 08:19-0500 Systolic blood pressure 130 mm[Hg] Martina FOLEY Work Phone: [facility] 06-28-2024 06:32-0500 Body temperature 98 [degF] Dr. Corey Tristan MD Work Phone: 3(953)677-447625 [place] [address] 06-28-2024 06:32-0500 Diastolic blood pressure 69 mm[Hg] Dr. Corey Tristan MD Work Phone: 2(977)806-458060 [place] [address] 06-28-2024 06:32-0500 Heart rate 72 /min Dr. Corey Tristan MD Work Phone: 2(021)262-906660 [place] [address] 06-28-2024 06:32-0500 Respiratory rate 18 /min Dr. Corey Tristan MD Work Phone: 5(025)058-600660 [place] [address] 06-28-2024 06:32-0500 SaO2% (BldA) [Mass fraction] 100 % Dr. Corey Tristan MD Work Phone: 9(451)934-632560 [place] [address] 06-28-2024 06:32-0500 Systolic blood pressure 128 mm[Hg] Dr. Corey Tristan MD Work Phone: 3(506)186-703860 [place] [address] 06-28-2024 05:39-0500 Body mass index (BMI) [Ratio] 43.7 kg/m2 Dr. Corey Tristan MD Work Phone: 8(908)192-498560 [place] [address] 06-28-2024 05:39-0500 Body weight 111.[address] Corey Tristan MD Work Phone: 9(456)080-310360 [place] [address] 06-27-2024 10:31-0500 Body temperature 98.1 [degF] Dr. Corey Tristan MD Work Phone: 0(078)524-506960 [place] [address] 06-27-2024 10:31-0500 Diastolic blood pressure 100 mm[Hg] Dr. Corey Tristan MD Work Phone: 7(538)322-154860 [place] [address] 06-27-2024 10:31-0500 Heart rate 54 /min Dr. Corey Tristan MD Work Phone: 9(068)394-801960 [place] [address] 06-27-2024 10:31-0500 Respiratory rate 18 /min Dr. Corey Tristan MD Work Phone: [facility] 06-27-2024 10:31-0500 SaO2% (BldA) [Mass fraction] 96 % Dr. Corey Tristan MD Work Phone: [facility] 06-27-2024 10:31-0500 Systolic blood pressure 148 mm[Hg] Dr. Corey Tristan MD Work Phone: [facility] 06-27-2024 07:06-0500 Body mass index (BMI) [Ratio] 42.5 kg/m2 Dr. Corey Tristan MD Work Phone: [facility] 06-27-2024 07:06-0500 Body weight 108.[address] Corey Tristan MD Work Phone: [facility] 05-03-2024 15:39-0500 Body mass index (BMI) [Ratio] 44.35 kg/m2 Bettina Suppan MEDICAL ONCOLOGY PHYSICIAN.AGENCY OWNER Work Phone: [facility] 05-03-2024 15:39-0500 Body temperature 97.2 [degF] Bettina Suppan MEDICAL ONCOLOGY PHYSICIAN.AGENCY OWNER Work Phone: [facility] 05-03-2024 15:39-0500 Body weight 110 kg Bettina Suppan MEDICAL ONCOLOGY PHYSICIAN.AGENCY OWNER Work Phone: [facility] 05-03-2024 15:39-0500 Diastolic blood pressure 82 mm[Hg] Bettina Suppan MEDICAL ONCOLOGY PHYSICIAN.AGENCY OWNER Work Phone: [facility] 05-03-2024 15:39-0500 Heart rate 71 /min Bettina Suppan MEDICAL ONCOLOGY PHYSICIAN.AGENCY OWNER Work Phone: [facility] 05-03-2024 15:39-0500 Respiratory rate 18 /min Bettina Suppan MEDICAL ONCOLOGY PHYSICIAN.AGENCY OWNER Work Phone: [facility] 05-03-2024 15:39-0500 SaO2% (BldA) [Mass fraction] 98 % Bettina Suppan MEDICAL ONCOLOGY PHYSICIAN.AGENCY OWNER Work Phone: [facility] 05-03-2024 15:39-0500 Systolic blood pressure 132 mm[Hg] Bettina Daisha MEDICAL ONCOLOGY PHYSICIAN.AGENCY OWNER Work Phone: [facility] 04-27-2024 08:35-0500 Body mass index (BMI) [Ratio] 44.96 kg/m2 Jourdan Estrada MD Work Phone: [facility] 04-27-2024 08:35-0500 Body temperature 97.59 [degF] Jourdan Estrada MD Work Phone: [facility] 04-27-2024 08:35-0500 Body weight 111.5 kg Jourdan Estrada MD Work Phone: [facility] 04-27-2024 08:35-0500 Diastolic blood pressure 86 mm[Hg] Jourdan Estrada MD Work Phone: [facility] 04-27-2024 08:35-0500 Heart rate 80 /min Jourdan Estrada MD Work Phone: [facility] 04-27-2024 08:35-0500 Respiratory rate 18 /min Jourdan Estrada MD Work Phone: [facility] 04-27-2024 08:35-0500 SaO2% (BldA) [Mass fraction] 98 % Jourdan Estrada MD Work Phone: [facility] 04-27-2024 08:35-0500 Systolic blood pressure 140 mm[Hg] Jourdan Estrada MD Work Phone: [facility] 04-16-2024 08:10-0500 Body mass index (BMI) [Ratio] 43.63 kg/m2 Edna Moomaw MEDICAL ONCOLOGY PHYSICIAN.AGENCY OWNER Work Phone: [facility] 04-16-2024 08:10-0500 Body temperature 97.81 [degF] Edna Sanabriaomacindy MEDICAL ONCOLOGY PHYSICIAN.AGENCY OWNER Work Phone: [facility] 04-16-2024 08:10-0500 Body weight 108.2 kg Edna Moomaw MEDICAL ONCOLOGY PHYSICIAN.AGENCY OWNER Work Phone: [facility] 04-16-2024 08:10-0500 Diastolic blood pressure 88 mm[Hg] Edna Moomaw MEDICAL ONCOLOGY PHYSICIAN.AGENCY OWNER Work Phone: [facility] 04-16-2024 08:10-0500 Heart rate 66 /min Edna Moomaw MEDICAL ONCOLOGY PHYSICIAN.AGENCY OWNER Work Phone: [facility] 04-16-2024 08:10-0500 Respiratory rate 18 /min Edna Moomaw MEDICAL ONCOLOGY PHYSICIAN.AGENCY OWNER Work Phone: [facility] 04-16-2024 08:10-0500 SaO2% (BldA) [Mass fraction] 98 % Edna Moomaw MEDICAL ONCOLOGY PHYSICIAN.AGENCY OWNER Work Phone: [facility] 04-16-2024 08:10-0500 Systolic blood pressure 144 mm[Hg] Edna Moomaw MEDICAL ONCOLOGY PHYSICIAN.AGENCY OWNER Work Phone: [facility] 04-12-2024 12:39-0500 Body mass index (BMI) [Ratio] 44.6 kg/m2 Krislyn Aberegg PA Work Phone: [facility] 04-12-2024 12:39-0500 Body temperature 98.4 [degF] Krislyn Aberegg PA Work Phone: [facility] 04-12-2024 12:39-0500 Body weight 110.6 kg Krislyn Aberegg PA Work Phone: [facility] 04-12-2024 12:39-0500 Diastolic blood pressure 80 mm[Hg] Krislyn Aberegg PA Work Phone: [facility] 04-12-2024 12:39-0500 Heart rate 76 /min Krislyn Aberegg PA Work Phone: [facility] 04-12-2024 12:39-0500 Respiratory rate 16 /min Krislyn Aberegg PA Work Phone: [facility] 04-12-2024 12:39-0500 SaO2% (BldA) [Mass fraction] 97 % Krislyn Aberegg PA Work Phone: [facility] 04-12-2024 12:39-0500 Systolic blood pressure 144 mm[Hg] Juniorlylorna Aberegg PA Work Phone: [facility] 02-08-2024 09:43-0400 Body height 157.5 cm Deborah Remedios MEDICAL ONCOLOGY PHYSICIAN.AGENCY OWNER Work Phone: [facility] 02-08-2024 09:43-0400 Body mass index (BMI) [Ratio] 43.71 kg/m2 Deborah Breese MEDICAL ONCOLOGY PHYSICIAN.AGENCY OWNER Work Phone: [facility] 02-08-2024 09:43-0400 Body weight 108.41 kg Deborah Remedios MEDICAL ONCOLOGY PHYSICIAN.AGENCY OWNER Work Phone: [facility] 02-08-2024 09:43-0400 Diastolic blood pressure 76 mm[Hg] Deborah Breese MEDICAL ONCOLOGY PHYSICIAN.AGENCY OWNER Work Phone: [facility] 02-08-2024 09:43-0400 Systolic blood pressure 130 mm[Hg] Deborah Breese MEDICAL ONCOLOGY PHYSICIAN.AGENCY OWNER Work Phone: [facility] 01-15-2024 14:49-0400 Body mass index (BMI) [Ratio] 42.69 kg/m2 Bettina Suppan MEDICAL ONCOLOGY PHYSICIAN.AGENCY OWNER Work Phone: [facility] 01-15-2024 14:49-0400 Body weight 109.32 kg Bettina Suppan MEDICAL ONCOLOGY PHYSICIAN.AGENCY OWNER Work Phone: [facility] 01-15-2024 14:49-0400 Diastolic blood pressure 80 mm[Hg] Bettina Suppan MEDICAL ONCOLOGY PHYSICIAN.AGENCY OWNER Work Phone: [facility] 01-15-2024 14:49-0400 Heart rate 92 /min Bettina Suppan MEDICAL ONCOLOGY PHYSICIAN.AGENCY OWNER Work Phone: [facility] 01-15-2024 14:49-0400 Respiratory rate 16 /min Bettina Suppan MEDICAL ONCOLOGY PHYSICIAN.AGENCY OWNER Work Phone: [facility] 01-15-2024 14:49-0400 SaO2% (BldA) [Mass fraction] 99 % Bettina Fuentes MEDICAL ONCOLOGY PHYSICIAN.AGENCY OWNER Work Phone: [facility] 01-15-2024 14:49-0400 Systolic blood pressure 120 mm[Hg] Bettina Fuentes MEDICAL ONCOLOGY PHYSICIAN.AGENCY OWNER Work Phone: [facility] 12-28-2023 12:59-0400 Body mass index (BMI) [Ratio] 43.22 kg/m2 Ashlee David MEDICAL ONCOLOGY PHYSICIAN.AGENCY OWNER Work Phone: [facility] 12-28-2023 12:59-0400 Body temperature 97.81 [degF] Ashlee David MEDICAL ONCOLOGY PHYSICIAN.AGENCY OWNER Work Phone: [facility] 12-28-2023 12:59-0400 Body weight 110.68 kg Ashlee David MEDICAL ONCOLOGY PHYSICIAN.AGENCY OWNER Work Phone: [facility] 12-28-2023 12:59-0400 Diastolic blood pressure 84 mm[Hg] Ashlee David MEDICAL ONCOLOGY PHYSICIAN.AGENCY OWNER Work Phone: [facility] 12-28-2023 12:59-0400 Heart rate 78 /min Ashlee David MEDICAL ONCOLOGY PHYSICIAN.AGENCY OWNER Work Phone: [facility] 12-28-2023 12:59-0400 SaO2% (BldA) [Mass fraction] 96 % Ashlee David MEDICAL ONCOLOGY PHYSICIAN.AGENCY OWNER Work Phone: [facility] 12-28-2023 12:59-0400 Systolic blood pressure 124 mm[Hg] Ashlee David MEDICAL ONCOLOGY PHYSICIAN.AGENCY OWNER Work Phone: [facility] 12-16-2023 09:06-0400 Body mass index (BMI) [Ratio] 42.87 kg/m2 Faith Deluna MEDICAL ONCOLOGY PHYSICIAN.AGENCY OWNER Work Phone: [facility] 12-16-2023 09:06-0400 Body weight 109.77 kg Faith Deluna MEDICAL ONCOLOGY PHYSICIAN.AGENCY OWNER Work Phone: [facility] 12-16-2023 09:06-0400 Diastolic blood pressure 62 mm[Hg] Faith Tannhof MEDICAL ONCOLOGY PHYSICIAN.AGENCY OWNER Work Phone: [facility] 12-16-2023 09:06-0400 Heart rate 78 /min Faith Tannhof MEDICAL ONCOLOGY PHYSICIAN.AGENCY OWNER Work Phone: [facility] 12-16-2023 09:06-0400 Respiratory rate 16 /min Faith Tannhof MEDICAL ONCOLOGY PHYSICIAN.AGENCY OWNER Work Phone: [facility] 12-16-2023 09:06-0400 SaO2% (BldA) [Mass fraction] 96 % Faith Tannhof MEDICAL ONCOLOGY PHYSICIAN.AGENCY OWNER Work Phone: [facility] 12-16-2023 09:06-0400 Systolic blood pressure 122 mm[Hg] Faith Tannhof MEDICAL ONCOLOGY PHYSICIAN.AGENCY OWNER Work Phone: [facility] 11-13-2023 09:58-0400 Diastolic blood pressure 90 mm[Hg] Claudia Haagen MEDICAL ONCOLOGY PHYSICIAN.AGENCY OWNER Work Phone: [facility] 11-13-2023 09:58-0400 Heart rate 66 /min Claudia Haagen MEDICAL ONCOLOGY PHYSICIAN.AGENCY OWNER Work Phone: [facility] 11-13-2023 09:58-0400 Respiratory rate 16 /min Claudia Haagen MEDICAL ONCOLOGY PHYSICIAN.AGENCY OWNER Work Phone: [facility] 11-13-2023 09:58-0400 SaO2% (BldA) [Mass fraction] 97 % Claudia Haagen MEDICAL ONCOLOGY PHYSICIAN.AGENCY OWNER Work Phone: [facility] 11-13-2023 09:58-0400 Systolic blood pressure 128 mm[Hg] Claudia Haagen MEDICAL ONCOLOGY PHYSICIAN.AGENCY OWNER Work Phone: [facility] 08-13-2023 11:04-0400 Body weight 112.95 kg NA Jose FOLEY-Santiago Work Phone: [facility] 08-13-2023 11:04-0400 Diastolic blood pressure 82 mm[Hg] NA Jose FOLEY-C Work Phone: [facility] 08-13-2023 11:04-0400 Heart rate 75 /min NA Garcia PA-C Work Phone: [facility] 08-13-2023 11:04-0400 SaO2% (BldA) [Mass fraction] 98 % NA Garcia PA-C Work Phone: [facility] 08-13-2023 11:04-0400 Systolic blood pressure 124 mm[Hg] NA Garcia PA-C Work Phone: [facility] 08-03-2023 10:45-0400 Body weight 111.58 kg NA Garcia PA-C Work Phone: [facility] 08-03-2023 10:45-0400 Diastolic blood pressure 80 mm[Hg] NA Garcia PA-C Work Phone: [facility] 08-03-2023 10:45-0400 Heart rate 70 /min NA Garcia PA-C Work Phone: [facility] 08-03-2023 10:45-0400 Respiratory rate 16 /min NA Garcia PA-C Work Phone: [facility] 08-03-2023 10:45-0400 SaO2% (BldA) [Mass fraction] 99 % NA Garcia PA-C Work Phone: [facility] 08-03-2023 10:45-0400 Systolic blood pressure 118 mm[Hg] NA Garcia PA-C Work Phone: [facility] 07-31-2023 11:42-0500 Body weight 111.58 kg NA Garcia PA-C Work Phone: [facility] 07-31-2023 11:42-0500 Diastolic blood pressure 80 mm[Hg] NA Agrcia PA-C Work Phone: [facility] 07-31-2023 11:42-0500 Heart rate 66 /min NA Garcia PA-C Work Phone: [facility] 07-31-2023 11:42-0500 Respiratory rate 16 /min NA Garcia PA-C Work Phone: [facility] 07-31-2023 11:42-0500 SaO2% (BldA) [Mass fraction] 98 % NA Garcia PA-C Work Phone: [facility] 07-31-2023 11:42-0500 Systolic blood pressure 116 mm[Hg] NA Garcia PA-C Work Phone: [facility] 04-13-2023 14:18-0500 Body height 160.4 cm Cilve Cetin DO Work Phone: [facility] 04-13-2023 14:18-0500 Body weight 106.01 kg Clive Cetin DO Work Phone: [facility] 04-13-2023 14:18-0500 Diastolic blood pressure 74 mm[Hg] Clive Cetin DO Work Phone: [facility] 04-13-2023 14:18-0500 Heart rate 78 /min Clive Cetin DO Work Phone: [facility] 04-13-2023 14:18-0500 Systolic blood pressure 129 mm[Hg] Clive Cetin DO Work Phone: [facility] 03-24-2023 07:48-0400 Body temperature 97.11 [degF] Shashi Pendlebury MEDICAL ONCOLOGY PHYSICIAN.AGENCY OWNER Work Phone: [facility] 03-24-2023 07:48-0400 Body weight 107.14 kg Shashi Pendlebury MEDICAL ONCOLOGY PHYSICIAN.AGENCY OWNER Work Phone: [facility] 03-24-2023 07:48-0400 Diastolic blood pressure 80 mm[Hg] Shashi Pendlebury MEDICAL ONCOLOGY PHYSICIAN.AGENCY OWNER Work Phone: [facility] 03-24-2023 07:48-0400 Heart rate 63 /min Shashi Pendlebury MEDICAL ONCOLOGY PHYSICIAN.AGENCY OWNER Work Phone: [facility] 03-24-2023 07:48-0400 Respiratory rate 18 /min Shashi Pendlebury MEDICAL ONCOLOGY PHYSICIAN.AGENCY OWNER Work Phone: [facility] 03-24-2023 07:48-0400 SaO2% (BldA) [Mass fraction] 97 % Shashi Chahal MEDICAL ONCOLOGY PHYSICIAN.AGENCY OWNER Work Phone: [facility] 03-24-2023 07:48-0400 Systolic blood pressure 110 mm[Hg] Shashi Chahal MEDICAL ONCOLOGY PHYSICIAN.AGENCY OWNER Work Phone: [facility] 03-13-2023 14:06-0400 Body weight 107.96 kg NA Garcia PA-C Work Phone: [facility] 03-13-2023 14:06-0400 Diastolic blood pressure 78 mm[Hg] NA Garcia PA-C Work Phone: [facility] 03-13-2023 14:06-0400 Heart rate 83 /min NA Garcia PA-C Work Phone: [facility] 03-13-2023 14:06-0400 Respiratory rate 18 /min NA Garcia PA-C Work Phone: [facility] 03-13-2023 14:06-0400 SaO2% (BldA) [Mass fraction] 98 % NA Garcia PA-C Work Phone: [facility] 03-13-2023 14:06-0400 Systolic blood pressure 112 mm[Hg] NA Garcia PA-C Work Phone: [facility] 02-19-2023 14:25-0400 Body temperature 98.2 [degF] Monse Praisler-Wood MEDICAL ONCOLOGY PHYSICIAN.AGENCY OWNER Work Phone: [facility] 02-19-2023 14:25-0400 Body weight 104.69 kg Monse Praisler-Wood MEDICAL ONCOLOGY PHYSICIAN.AGENCY OWNER Work Phone: [facility] 02-19-2023 14:25-0400 Diastolic blood pressure 90 mm[Hg] Monse Praisler-Wood MEDICAL ONCOLOGY PHYSICIAN.AGENCY OWNER Work Phone: [facility] 02-19-2023 14:25-0400 Heart rate 76 /min Monse Praisler-Wood MEDICAL ONCOLOGY PHYSICIAN.AGENCY OWNER Work Phone: [facility] 02-19-2023 14:25-0400 Respiratory rate 20 /min Monse Praisler-Wood MEDICAL ONCOLOGY PHYSICIAN.AGENCY OWNER Work Phone: [facility] 02-19-2023 14:25-0400 SaO2% (BldA) [Mass fraction] 99 % Monse Catherine MEDICAL ONCOLOGY PHYSICIAN.AGENCY OWNER Work Phone: [facility] 02-19-2023 14:25-0400 Systolic blood pressure 140 mm[Hg] Monse Marte-Tr MEDICAL ONCOLOGY PHYSICIAN.AGENCY OWNER Work Phone: [facility] 02-05-2023 09:36-0400 Body height 157.5 cm Deborah Breese MEDICAL ONCOLOGY PHYSICIAN.AGENCY OWNER Work Phone: [facility] 02-05-2023 09:36-0400 Body weight 106.59 kg Deborah Remedios MEDICAL ONCOLOGY PHYSICIAN.AGENCY OWNER Work Phone: [facility] 02-05-2023 09:36-0400 Diastolic blood pressure 78 mm[Hg] Deborah Remedios MEDICAL ONCOLOGY PHYSICIAN.AGENCY OWNER Work Phone: [facility] 02-05-2023 09:36-0400 Systolic blood pressure 118 mm[Hg] Deborah Breese MEDICAL ONCOLOGY PHYSICIAN.AGENCY OWNER Work Phone: [facility] 12-10-2022 15:36-0400 Body mass index (BMI) [Ratio] 40.7 kg/m2 PA NA Garcia PA Work Phone: [facility] 12-10-2022 15:36-0400 Body weight 104.32 kg PA NA Garcia PA Work Phone: [facility] 12-10-2022 15:31-0400 Body height 160.02 cm PA NA Garcia PA Work Phone: [facility] 12-10-2022 15:31-0400 Body temperature 97.6 [degF] PA NA Garcia PA Work Phone: [facility] 12-10-2022 15:31-0400 Diastolic blood pressure 82 mm[Hg] PA NA Garcia PA Work Phone: [facility] 12-10-2022 15:31-0400 Heart rate 82 /min PA NA Garcia PA Work Phone: [facility] 12-10-2022 15:31-0400 Respiratory rate 16 /min PA NA Garcia PA Work Phone: [facility] 12-10-2022 15:31-0400 SaO2% (BldA) [Mass fraction] 99 % PA NA Garcia PA Work Phone: [facility] 12-10-2022 15:31-0400 Systolic blood pressure 117 mm[Hg] PA NA Garcia PA Work Phone: [facility] 11-21-2022 11:22-0400 Body weight 107.96 kg Clive Zuniga DO Work Phone: [facility] 11-17-2022 13:09-0400 Body weight 107.5 kg NA Garcia PA-C Work Phone: [facility] 11-17-2022 13:09-0400 Diastolic blood pressure 78 mm[Hg] NA Garcia PA-C Work Phone: [facility] 11-17-2022 13:09-0400 Heart rate 83 /min NA Garcia PA-C Work Phone: [facility] 11-17-2022 13:09-0400 Respiratory rate 16 /min NA Garcia PA-C Work Phone: [facility] 11-17-2022 13:09-0400 SaO2% (BldA) [Mass fraction] 97 % NA Garcia PA-C Work Phone: [facility] 11-17-2022 13:09-0400 Systolic blood pressure 120 mm[Hg] NA Garcia PA-C Work Phone: [facility] 09-13-2022 17:45-0400 Body temperature 98.2 [degF] [facility] 09-13-2022 17:45-0400 Diastolic blood pressure 79 mm[Hg] [facility] 09-13-2022 17:45-0400 Heart rate 74 /min [facility] 09-13-2022 17:45-0400 Respiratory rate 16 /min [facility] 09-13-2022 17:45-0400 SaO2% (BldA) [Mass fraction] 99 % [facility] 09-13-2022 17:45-0400 Systolic blood pressure 145 mm[Hg] [facility] 09-13-2022 16:01-0400 Body height 160.02 cm [facility] 09-13-2022 16:01-0400 Body mass index (BMI) [Ratio] 41.4 kg/m2 [facility] 09-13-2022 16:01-0400 Body weight 106.14 kg [facility] 09-02-2022 16:53-0400 Body weight 105.23 kg NA Garcia PA-C Work Phone: [facility] 09-02-2022 16:53-0400 Diastolic blood pressure 72 mm[Hg] NA Garcia PA-C Work Phone: [facility] 09-02-2022 16:53-0400 Heart rate 77 /min NA Garcia PA-C Work Phone: [facility] 09-02-2022 16:53-0400 Respiratory rate 16 /min NA Garcia PA-C Work Phone: [facility] 09-02-2022 16:53-0400 SaO2% (BldA) [Mass fraction] 99 % NA Garcia PA-C Work Phone: [facility] 09-02-2022 16:53-0400 Systolic blood pressure 128 mm[Hg] NA Garcia PA-C Work Phone: [facility] 07-31-2022 17:22-0500 Body weight 102.97 kg NA Garcia PA-C Work Phone: [facility] 07-31-2022 17:22-0500 Diastolic blood pressure 70 mm[Hg] NA Garcia PA-C Work Phone: [facility] 07-31-2022 17:22-0500 Heart rate 76 /min NA Garcia PA-C Work Phone: [facility] 07-31-2022 17:22-0500 SaO2% (BldA) [Mass fraction] 100 % NA Garcia PA-C Work Phone: [facility] 07-31-2022 17:22-0500 Systolic blood pressure 122 mm[Hg] NA Garcia PA-C Work Phone: [facility] 07-01-2022 07:52-0500 Body temperature 98.71 [degF] Zackery Bran MEDICAL ONCOLOGY PHYSICIAN.AGENCY OWNER Work Phone: [facility] 07-01-2022 07:52-0500 Body weight 101.33 kg Zackery Bran MEDICAL ONCOLOGY PHYSICIAN.AGENCY OWNER Work Phone: [facility] 07-01-2022 07:52-0500 Diastolic blood pressure 70 mm[Hg] Zackery Bran MEDICAL ONCOLOGY PHYSICIAN.AGENCY OWNER Work Phone: [facility] 07-01-2022 07:52-0500 Heart rate 75 /min Zackery Bran MEDICAL ONCOLOGY PHYSICIAN.AGENCY OWNER Work Phone: [facility] 07-01-2022 07:52-0500 Respiratory rate 18 /min Zackery Bran MEDICAL ONCOLOGY PHYSICIAN.AGENCY OWNER Work Phone: [facility] 07-01-2022 07:52-0500 SaO2% (BldA) [Mass fraction] 99 % Zackery Bran MEDICAL ONCOLOGY PHYSICIAN.AGENCY OWNER Work Phone: [facility] 07-01-2022 07:52-0500 Systolic blood pressure 108 mm[Hg] Zackery Bran MEDICAL ONCOLOGY PHYSICIAN.AGENCY OWNER Work Phone: [facility] 02-18-2022 11:29-0400 Body weight 95.25 kg NA Garcia PA-C Work Phone: [facility] 02-18-2022 11:29-0400 Diastolic blood pressure 78 mm[Hg] NA Garcia PA-C Work Phone: [facility] 02-18-2022 11:29-0400 Heart rate 73 /min NA Garcia PA-C Work Phone: [facility] 02-18-2022 11:29-0400 Respiratory rate 16 /min NA Garcia PA-C Work Phone: [facility] 02-18-2022 11:29-0400 SaO2% (BldA) [Mass fraction] 98 % NA Garcia PA-C Work Phone: [facility] 02-18-2022 11:29-0400 Systolic blood pressure 110 mm[Hg] NA Garcia PA-C Work Phone: [facility] 01-16-2022 14:36-0400 Body weight 93.89 kg NA Garcia PA-C Work Phone: [facility] 01-16-2022 14:36-0400 Diastolic blood pressure 72 mm[Hg] NA Garcia PA-C Work Phone: [facility] 01-16-2022 14:36-0400 Heart rate 77 /min NA Garcia PA-C Work Phone: [facility] 01-16-2022 14:36-0400 Respiratory rate 16 /min NA Garcia PA-C Work Phone: [facility] 01-16-2022 14:36-0400 SaO2% (BldA) [Mass fraction] 99 % NA Garcia PA-C Work Phone: [facility] 01-16-2022 14:36-0400 Systolic blood pressure 112 mm[Hg] NA Garcia PA-C Work Phone: [facility] 12-17-2021 14:58-0400 Body height 158 cm Deborah Remedios MEDICAL ONCOLOGY PHYSICIAN.AGENCY OWNER Work Phone: [facility] 12-17-2021 14:58-0400 Body weight 93.89 kg Deborah Breese MEDICAL ONCOLOGY PHYSICIAN.AGENCY OWNER Work Phone: [facility] 12-17-2021 14:58-0400 Diastolic blood pressure 74 mm[Hg] Deborah Breese MEDICAL ONCOLOGY PHYSICIAN.AGENCY OWNER Work Phone: [facility] 12-17-2021 14:58-0400 Systolic blood pressure 116 mm[Hg] Deborah Breese MEDICAL ONCOLOGY PHYSICIAN.AGENCY OWNER Work Phone: [facility] 10-24-2021 14:56-0400 Body weight 92.9 kg Deborah Breese MEDICAL ONCOLOGY PHYSICIAN.AGENCY OWNER Work Phone: [facility] 10-24-2021 14:56-0400 Diastolic blood pressure 70 mm[Hg] Deborah Breese MEDICAL ONCOLOGY PHYSICIAN.AGENCY OWNER Work Phone: [facility] 10-24-2021 14:56-0400 Systolic blood pressure 120 mm[Hg] Deborah Breese MEDICAL ONCOLOGY PHYSICIAN.AGENCY OWNER Work Phone: [facility] 10-07-2021 07:46-0400 Body temperature 97.59 [degF] Leticia Kavita MEDICAL ONCOLOGY PHYSICIAN.AGENCY OWNER Work Phone: [facility] 10-07-2021 07:46-0400 Body weight 93.89 kg Leticia Kavita MEDICAL ONCOLOGY PHYSICIAN.AGENCY OWNER Work Phone: [facility] 10-07-2021 07:46-0400 Diastolic blood pressure 68 mm[Hg] Leticia Kavita MEDICAL ONCOLOGY PHYSICIAN.AGENCY OWNER Work Phone: [facility] 10-07-2021 07:46-0400 Heart rate 80 /min Leticia Kavita MEDICAL ONCOLOGY PHYSICIAN.AGENCY OWNER Work Phone: [facility] 10-07-2021 07:46-0400 Respiratory rate 16 /min Leticia Kavita MEDICAL ONCOLOGY PHYSICIAN.AGENCY OWNER Work Phone: [facility] 10-07-2021 07:46-0400 SaO2% (BldA) [Mass fraction] 99 % Leticia Kavita MEDICAL ONCOLOGY PHYSICIAN.AGENCY OWNER Work Phone: [facility] 10-07-2021 07:46-0400 Systolic blood pressure 110 mm[Hg] Leticia Kavita MEDICAL ONCOLOGY PHYSICIAN.AGENCY OWNER Work Phone: [facility] Encounters Encounter Date Encounter Type Care Provider Facility Start: 01-05-2025 ambulatory Self Referred Facility: [facility] Start: 12-11-2024 End: 12-12-2024 Refsharron Downs MEDICAL ONCOLOGY PHYSICIAN.AGENCY OWNER Work Phone: Psychiatry Comment on above: Refill Request Start: 11-09-2024 End: 11-09-2024 Telephone encounter Bettina A Suppan MEDICAL ONCOLOGY PHYSICIAN.AGENCY OWNER Work Phone: [facility] Comment on above: Patient Update Start: 10-31-2024 End: 10-31-[address] Tung Edwards MD -[facility] Start: 10-31-2024 End: 10-31-2024 ambulatory Bettina Suppan DERRICK FOLLOWER Work Phone: [facility] Work Phone: Start: 10-31-2024 Registered Recurring Self Referred - Physical Therapy Work Phone: Start: 10-14-2024 End: 10-14-2024 ambulatory BETTINA A SUPPAN Facility:[facility] Start: 10-11-2024 End: 10-11-2024 ambulatory BETTINA A SUPPAN Facility:[facility] Start: 10-05-2024 End: 10-05-[address] Corey Tristan MD Work Phone: [facility] Work Phone: Start: 10-05-2024 End: 10-05-2024 Discharged Recurring Bettina Suppan DERRICK FOLLOWER -Physical Therapy Work Phone: Start: 09-13-2024 End: 09-13-[address] Jermaine Levy MD -[facility] Work Phone: Start: 09-13-2024 End: 09-13-2024 ambulatory Bettina Suppan Facility:[facility] Start: 09-06-2024 End: 09-06-[address] Jermaine Levy MD -[facility] Work Phone: Start: 09-06-2024 End: 09-06-2024 ambulatory Bettina Suppan Facility:[facility] Start: 08-30-2024 End: 08-30-2024 Telemedicine consultation with patient Davon Downs PETR.AGENCY OWNER Work Phone: Psychiatry Start: 08-30-2024 End: 08-30-2024 Telephone encounter Davon Downs APRN.AGENCY OWNER Work Phone: Psychiatry Comment on above: Appointment Major depressive dis order, recurrent episode, moderate (HCC) (Primary Dx); Anxiety disorder, unspecified type; Panic attack; Encounter for long-term current use of medication Start: 08-30-2024 End: 08-30-[address] Jermaine Levy MD -[facility] Work Phone: Start: 08-30-2024 End: 08-30-2024 ambulatory BETTINA A SUPPAN Facility:[facility] Start: 08-18-2024 Registered Recurring Bettina Supp an DERRICK FOLLOWER -Physical Therapy Work Phone: Start: 08-16-2024 End: 08-16-2024 Refill Davon Downs APRN.AGENCY OWNER Work Phone: Psychiatry Comment on above: Refill Request Start: 08-14-2024 End: 08-16-2024 Refill Davon Downs APRN.AGENCY OWNER Work Phone: Psychiatry Comment on above: Refill Request Start: 08-14-2024 End: 08-16-2024 Refill Davon Downs APRN.AGENCY OWNER Work Phone: Psychiatry Comment on above: Refill Request Start: 08-10-2024 End: 08-10-2024 ambulatory BETTINA A SUPPAN Facility:[facility] Start: 08-10-2024 End: 08-10-2024 Patient encounter procedure Ashlee Lee APRN.AGENCY OWNER Work Phone: General Surgery Comment on above: Infected sebaceous c yst (Primary Dx) Start: 08-09-2024 End: 08-09-2024 Telephone encounter Bettina A Suppan MEDICAL ONCOLOGY PHYSICIAN.AGENCY OWNER Work Phone: [facility] [place] Start: 08-08-2024 End: 08-08-2024 ambulatory BETTINA A SUPPAN Facility:[facility] Start: 08-08-2024 End: 08-08-2024 Office outpatient visit 15 minutes Bettina A Suppan MEDICAL ONCOLOGY PHYSICIAN.AGENCY OWNER Work Phone: [facility] [place] Comment on above: BPPV (benign paroxys mal positional vertigo), unspecified laterality (Primary Dx); Orthostasis Start: 08-04-2024 End: 08-04-2024 Follow-up encounter Ashish Calvillo MD Work Phone: General Surgery Comment on above: Cyst removal followu p Start: 08-04-2024 End: 08-04-2024 Patient encounter procedure Ashlee Lee MEDICAL ONCOLOGY PHYSICIAN.AGENCY OWNER Work Phone: General Surgery Comment on above: Infected sebaceous c yst (Primary Dx) Start: 08-04-2024 End: 08-04-2024 ambulatory Ashish Calvillo MD Work Phone: General Surgery Start: 08-02-2024 End: 08-02-2024 ambulatory BETTINA A SUPPAN Facility:[facility] Start: 08-02-2024 End: 08-02-2024 Patient encounter procedure Ashish Calvillo MD Work Phone: General Surgery Comment on above: Infected sebaceous c yst (Primary Dx); Epidermal inclusion cyst Start: 08-01-2024 End: 08-01-2024 ambulatory BETTINA A SUPPAN Facility:[facility] Start: 08-01-2024 End: 08-01-2024 Office outpatient visit 15 minutes Bettina Moisés Fuentes MEDICAL ONCOLOGY PHYSICIAN.AGENCY OWNER Work Phone: [facility] [place] Comment on above: Epidermal inclusion cyst (Primary Dx) Start: 08-01-2024 End: 08-01-2024 Telephone encounter Lillie OROZCOC Work Phone: [facility] Comment on above: Patient Update Start: 07-29-2024 End: 08-01-2024 ambulatory Bettina A Suppan MEDICAL ONCOLOGY PHYSICIAN.AGENCY OWNER Work Phone: [facility] [place] Comment on above: FMLA Start: 07-25-2024 End: 07-25-2024 Patient encounter procedure Lillie Bautista PA-C Work Phone: [facility] Comment on above: Inflamed sebaceous c yst (Primary Dx) Refill Request Start: 07-25-2024 End: 07-25-2024 ambulatory LILLIE BAUTISTA Facility:[id number] Start: 07-21-2024 End: 07-22-2024 ambulatory Bettina Moisés Daisha MEDICAL ONCOLOGY PHYSICIAN.AGENCY OWNER Work Phone: [facility] Comment on above: Time off work Start: 07-21-2024 End: 07-21-2024 Office outpatient visit 25 minutes Bettina Fuentes MEDICAL ONCOLOGY PHYSICIAN.AGENCY OWNER Work Phone: [facility] Comment on above: Viral upper respirat ory tract infection (Primary Dx); Neck pain; Low back pain with sciatica, sciatica laterality unspecified, unspecified back pain laterality, unspecified chronicity Start: 07-18-2024 End: 07-18-2024 Emergency department patient visit Dr. Chago Balderas DO -Emergency Department Work Phone: Start: 07-18-2024 End: 07-18-2024 Patient encounter procedure Eddie Cedeno PA -[facility] Work Phone: Start: 07-18-2024 End: 07-18-2024 ambulatory Bettina Suppan Facility:[facility] Start: 07-16-2024 End: 07-16-2024 ambulatory BETTINA A SUPPAN Facility:[facility] Start: 07-16-2024 End: 07-16-2024 Patient encounter procedure Martina Winters PA Work Phone: [facility] Comment on above: Sore throat (Primary Dx); Rash Start: 07-15-2024 End: 07-15-2024 Patient encounter procedure Lester Hilton PA -[facility] Work Phone: Start: 07-15-2024 End: 07-15-2024 ambulatory Bettina Suppan Facility:[facility] Start: 07-15-2024 End: 07-15-[address] Roc Goldman DO -[facility] Start: 07-15-2024 End: 07-15-2024 ambulatory Bettina Suppan Facility:[facility] Start: 06-28-2024 End: 06-28-2024 Emergency department patient visit Bo Fontenot DO -Emergency Department Work Phone: Start: 06-27-2024 End: 06-27-2024 Emergency department patient visit Dr. Corey Tristan MD -Emergency Department Work Phone: Start: 06-06-2024 End: 06-06-2024 Refill Davon Downs MEDICAL ONCOLOGY PHYSICIAN.AGENCY OWNER Work Phone: Psychiatry Comment on above: Refill Request Start: 05-08-2024 End: 05-09-2024 Refill Davon Downs MEDICAL ONCOLOGY PHYSICIAN.AGENCY OWNER Work Phone: Psychiatry Comment on above: Refill Request Start: 05-03-2024 End: 05-03-2024 Office outpatient visit 15 minutes Bettina A Suppan MEDICAL ONCOLOGY PHYSICIAN.AGENCY OWNER Work Phone: [facility] [place] Comment on above: Dysuria (Primary Dx) ; Diverticulitis; Phlebitis Start: 05-03-2024 End: 05-03-2024 ambulatory BETTINA A SUPPAN Facility:[facility] Start: 04-28-2024 End: 04-29-2024 Telephone encounter Jorudan Estrada MD Work Phone: [facility] Comment on above: Results (Urine Cx mi xed) Start: 04-27-2024 End: 04-27-2024 ambulatory BETTINA A SUPPAN Facility:[facility] Start: 04-27-2024 End: 04-27-2024 Office outpatient visit 25 minutes Jourdan Estrada MD Work Phone: [facility] Comment on above: Urinary frequency (P rimary Dx) Start: 04-16-2024 End: 04-16-2024 Subsequent hospital visit by physician Xr [facility] [place] Work Phone: Radiology Comment on above: Other fatigue [R53.8 3] Start: 04-16-2024 End: 04-16-2024 ambulatory ESTHELA KELVIN GARCIA Facility:[facility] Start: 04-16-2024 End: 04-16-2024 Patient encounter procedure Edna Courtney MEDICAL ONCOLOGY PHYSICIAN.AGENCY OWNER Work Phone: [facility] Comment on above: Other fatigue (Prima ry Dx) Start: 04-14-2024 End: 04-14-2024 ambulatory No Pcp MEDICAL ONCOLOGY PHYSICIAN Appointment Center Start: 04-14-2024 End: 04-14-2024 Patient encounter procedure No Pcp MEDICAL ONCOLOGY PHYSICIAN Appointment Center Start: 04-12-2024 End: 04-12-2024 ambulatory ESTHELA GARCIA Facility:[facility] Start: 04-12-2024 End: 04-12-2024 Patient encounter procedure Martina FOLEY Work Phone: [facility] Comment on above: Sinobronchitis (Prim deniz Dx); Sore throat Start: 04-11-2024 End: 04-11-2024 ambulatory Mandie FOLEY Facility:[facility] Start: 04-07-2024 End: 04-07-2024 ambulatory No Pcp MEDICAL ONCOLOGY PHYSICIAN Appointment Center Start: 04-07-2024 End: 04-07-2024 Patient encounter procedure No Pcp MEDICAL ONCOLOGY PHYSICIAN Appointment Center Start: 03-30-2024 End: 03-30-2024 ambulatory Larry Hummel Facility:[facility] Start: 03-25-2024 End: 03-25-2024 Emergency department patient visit Mandie FOLEY Facility:[facility] Start: 03-15-2024 End: 03-15-2024 ambulatory Mandie Garcia PA-C Work Phone: [facility] [place] Comment on above: MRI denial Start: 03-02-2024 End: 03-02-2024 Refill Davon Downs APRN.AGENCY OWNER Work Phone: Psychiatry Comment on above: Refill Request Start: 02-24-2024 End: 02-24-2024 ambulatory Davon Downs APRN.AGENCY OWNER Work Phone: Psychiatry Comment on above: NO SHOW (Primary Dx) Start: 02-24-2024 End: 02-24-2024 Telemedicine consultation with patient Davon Himanshu POMPAAGENCY OWNER Work Phone: Psychiatry Start: 02-15-2024 End: 02-15-2024 ambulatory ESTHELA GARCIA Facility:[facility] Start: 02-15-2024 End: 02-15-2024 Patient encounter procedure Ashlee Lee APRN.AGENCY OWNER Work Phone: General Surgery Comment on above: Diarrhea, unspecifie d type (Primary Dx) Start: 02-08-2024 End: 02-08-2024 ambulatory ESTHELA GARCIA Facility:[facility] Start: 02-08-2024 End: 02-08-2024 Patient encounter procedure Deborah Whittaker APRN.AGENCY OWNER Work Phone: OB/Gynecology Comment on above: Encounter for gyneco logical examination (general) (routine) without abnormal findings (Primary Dx); Encounter for screening mammogram for breast cancer; Encounter for surveillance of contraceptive pills Start: 02-08-2024 End: 02-08-2024 Patient encounter status Deborahdanielle BonnerRemediosbrendan POMPAAGENCY OWNER Work Phone: [facility] Start: 02-04-2024 End: 02-04-2024 ambulatory KELVIN GARCIA Facility:[facility] Start: 02-03-2024 End: 02-03-2024 Telephone encounter Antonietta Gonzalez MD Work Phone: General Surgery Comment on above: Patient Question Start: 02-01-2024 End: 02-01-2024 [facility] Start: 02-01-2024 End: 02-01-2024 Telemedicine consultation with patient Davon Downs AGENCY OWNER Work Phone: Psychiatry Start: 02-01-2024 End: 02-01-2024 Telephone encounter Davon Downs APRN.AGENCY OWNER Work Phone: Psychiatry Comment on above: Appointment Major depressive dis order, recurrent episode, moderate (HCC) (Primary Dx); Anxiety disorder, unspecified type; Major depressive disorder, recurrent, moderate (HCC) Start: 01-27-2024 End: 01-27-2024 Admission to same day surgery center Ashlee Lee APRN.AGENCY OWNER Work Phone: General Surgery Comment on above: Pre op question Start: 01-27-2024 End: 01-27-2024 ambulatory Ashlee Lee APRN.AGENCY OWNER Work Phone: General Surgery Start: 01-26-2024 End: 01-26-2024 ambulatory Mandie FOLEY Facility:[facility] Start: 01-25-2024 End: 01-26-2024 Admission to same day surgery center Ashlee Lee APRN.AGENCY OWNER Work Phone: General Surgery Comment on above: Colonoscopy Start: 01-25-2024 End: 01-26-2024 ambulatory Ashlee Lee MEDICAL ONCOLOGY PHYSICIAN.AGENCY OWNER Work Phone: General Surgery Start: 01-21-2024 End: 01-21-2024 Refill Davon Downs MEDICAL ONCOLOGY PHYSICIAN.AGENCY OWNER Work Phone: Psychiatry Comment on above: Refill Request Start: 01-19-2024 End: 01-19-2024 ambulatory Bettina Fuentes MEDICAL ONCOLOGY PHYSICIAN.AGENCY OWNER Work Phone: [facility] [place] Comment on above: Fmla Start: 01-18-2024 End: 01-27-2024 Telephone encounter Mandie Garcia PA-C Work Phone: [facility] [place] Comment on above: FMLA Paperwork Start: 01-15-2024 End: 01-15-2024 ambulatory ESTHELA GARCIA Facility:[facility] Start: 01-15-2024 End: 01-15-2024 Office outpatient visit 15 minutes Bettina Fuentes MEDICAL ONCOLOGY PHYSICIAN.AGENCY OWNER Work Phone: [facility] [place] Comment on above: Fibromyalgia (Primar y Dx); Anxiety with depression; Strain of trapezius muscle, unspecified laterality, initial encounter; Cervical pain Start: 01-14-2024 End: 01-14-2024 ambulatory Faith Deluna APRN.AGENCY OWNER Work Phone: [facility] [place] Comment on above: FMLA Start: 01-13-2024 End: 02-15-2024 ambulatory Davon Downs APRN.AGENCY OWNER Work Phone: Psychiatry Comment on above: Depression worsened Refill Request Start: 01-07-2024 ambulatory Mandie acosta PA-C Work Phone: [facility] [place] Comment on above: Neck pain Start: 01-07-2024 Telephone encounter Mandie Garcia PA-C Work Phone: [facility] [place] Comment on above: fax pain management referral to Dr Rajput Start: 12-28-2023 End: 12-28-2023 ambulatory ESTHELA GARCIA Facility:[facility] Start: 12-28-2023 End: 12-28-2023 Patient encounter procedure Ashlee Lee MEDICAL ONCOLOGY PHYSICIAN.AGENCY OWNER Work Phone: General Surgery Comment on above: Diarrhea, unspecifie d type (Primary Dx); Occult blood positive stool Start: 12-23-2023 Telephone encounter Faith Robb [facility] MEDICAL ONCOLOGY PHYSICIAN.AGENCY OWNER Work Phone: [facility] [place] Comment on above: Results (Stool ) Start: 12-21-2023 Telephone encounter Faith prince MEDICAL ONCOLOGY PHYSICIAN.AGENCY OWNER Work Phone: [facility] [place] Comment on above: Results (Abdomen Xra y ) Start: 12-16-2023 End: 12-16-2023 Subsequent hospital visit by physician Nicole [facility] [place] Work Phone: Radiology Comment on above: Abdominal cramping [ R10.9] Start: 12-16-2023 End: 12-16-2023 ambulatory ESTHELA GARCIA Facility:[facility] Start: 12-16-2023 End: 12-16-2023 Patient encounter procedure Faith Deluna MEDICAL ONCOLOGY PHYSICIAN.AGENCY OWNER Work Phone: [facility] [place] Comment on above: Diarrhea, unspecifie d type (Primary Dx); Abdominal cramping Start: 11-30-2023 ambulatory Mandie acosta PA-C Work Phone: [facility] [place] Comment on above: Meclizine Start: 11-16-2023 Refill Davon Feliz in MEDICAL ONCOLOGY PHYSICIAN.AGENCY OWNER Work Phone: Psychiatry Comment on above: Refill Request Start: 11-13-2023 End: 11-13-2023 Office outpatient visit 25 minutes Claudia Finch MEDICAL ONCOLOGY PHYSICIAN.AGENCY OWNER Work Phone: [facility] [place] Comment on above: Nausea and vomiting, unspecified vomiting type (Primary Dx); Pain of upper abdomen; Iron deficiency anemia, unspecified iron deficiency anemia type Start: 09-16-2023 ambulatory No Pcp MEDICAL ONCOLOGY PHYSICIAN Lakhwinder lombardo [place] Start: 09-16-2023 Patient encounter procedure No Pcp MEDICAL ONCOLOGY PHYSICIAN [facility] [place] Start: 08-28-2023 End: 08-28-2023 Subsequent hospital visit by physician Gi/Gu 2 Yolandaiamin [facility] Work Phone: Radiology Comment on above: Weight gain followin g gastric bypass surgery [R63.5, Z98.84] Start: 08-27-2023 Telephone encounter Faith Robb nhof MEDICAL ONCOLOGY PHYSICIAN.AGENCY OWNER Work Phone: [facility] Comment on above: Results (Xray ) Start: 08-21-2023 End: 08-21-2023 Subsequent hospital visit by physician Xr [facility] [place] Work Phone: Radiology Comment on above: Neck pain [M54.2] Start: 08-18-2023 Refill Clive Henderson Ceti n DO Work Phone: General Surgery Start: 08-16-2023 Refill Davon Feliz in MEDICAL ONCOLOGY PHYSICIAN.AGENCY OWNER Work Phone: Psychiatry Comment on above: Refill Request Start: 08-13-2023 End: 08-13-2023 Patient encounter procedure Mandie Garcia PA-C Work Phone: [facility] Comment on above: Pain in left arm (Pr imary Dx); Pain in left leg Start: 08-12-2023 ambulatory Clive Henderson Ceti n DO Work Phone: General Surgery Comment on above: Why can t you respon d?! Start: 08-05-2023 Documentation procedure Mammog grayson Coordinator [facility] Start: 08-05-2023 Letter encounter Mammography Coordinator [facility] Department Start: 08-05-2023 End: 08-05-2023 Subsequent hospital visit by physician Screen Mammo [facility] Mammogram Comment on above: Encounter for screen ing mammogram for breast cancer [Z12.31] Start: 08-03-2023 ambulatory Clive Henderson Ceti n DO Work Phone: General Surgery Comment on above: Gaining weight, pill s not effective Start: 08-03-2023 End: 08-03-2023 Patient encounter procedure Mandie Garcia PA-C Work Phone: [facility] [place] Comment on above: Somatic dysfunction of spine, cervical (Primary Dx) Start: 07-31-2023 End: 07-31-2023 Patient encounter procedure Mandie Kelvin Garcia PA-C Work Phone: Family Medicine [place] Comment on above: Somatic dysfunction of spine, cervical (Primary Dx); Somatic dysfunction of rib; Somatic dysfunction of left side of chest wall Start: 07-16-2023 Refill Davon Feliz in MEDICAL ONCOLOGY PHYSICIAN.AGENCY OWNER Work Phone: Psychiatry Comment on above: Refill Request Start: 04-29-2023 End: 04-29-2023 [facility] Davon Downs MEDICAL ONCOLOGY PHYSICIAN.AGENCY OWNER Work Phone: Psychiatry Comment on above: Major depressive dis order, recurrent, moderate (HCC) (Primary Dx); Anxiety disorder, unspecified type 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 options 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 home care chaplain - O ther Start: 04-26-2023 ambulatory Davon Feliz in MEDICAL ONCOLOGY PHYSICIAN.AGENCY OWNER Work Phone: Psychiatry Comment on above: Need adjustment Start: 04-13-2023 End: 04-13-2023 Patient encounter procedure Clive Zuniga DO Work Phone: General Surgery Comment on above: Weight gain followin g gastric bypass surgery (Primary Dx) Start: 03-24-2023 End: 03-24-2023 Office outpatient visit 25 minutes Shashi Chahal MEDICAL ONCOLOGY PHYSICIAN.AGENCY OWNER Work Phone: [facility] Comment on above: Seasonal allergies ( Primary Dx) Start: 03-13-2023 End: 03-13-2023 Patient encounter procedure Mandie Garcia PA-C Work Phone: [facility] [place] Comment on above: Somatic dysfunction of spine, cervical (Primary Dx); Somatic dysfunction of spine, thoracic Start: 02-19-2023 End: 02-19-2023 Patient encounter procedure Monse Catherine MEDICAL ONCOLOGY PHYSICIAN.AGENCY OWNER Work Phone: [facility] Comment on above: Bacterial sinusitis (Primary Dx); Other acute nonsuppurative otitis media of left ear, recurrence not specified; COVID-19 Start: 02-05-2023 End: 02-05-2023 Patient encounter procedure Deborah Bonnercalf MEDICAL ONCOLOGY PHYSICIAN.AGENCY OWNER Work Phone: OB/Gynecology Comment on above: Encounter for gyneco logical examination (general) (routine) without abnormal findings (Primary Dx); History of bilateral breast reduction surgery; Screening for cervical cancer; Encounter for screening for human papillomavirus (HPV); Encounter for screening mammogram for breast cancer; Encounter for surveillance of contraceptive pills; Hot flashes Start: 02-05-2023 End: 02-05-2023 Patient encounter status Deborah Bonnercalf MEDICAL ONCOLOGY PHYSICIAN.AGENCY OWNER Work Phone: [facility] Work Phone: Start: 01-14-2023 ambulatory Clive rothman DO Work Phone: General Surgery Comment on above: Appt date Start: 12-30-2022 Refill Deborah Bonnercalf MEDICAL ONCOLOGY PHYSICIAN.AGENCY OWNER Work Phone: OB/Gynecology Comment on above: Refill Request; Refi ll Request Start: 12-20-2022 Refill Davon Feliz in MEDICAL ONCOLOGY PHYSICIAN.AGENCY OWNER Work Phone: Psychiatry Comment on above: Refill Request Start: 12-16-2022 End: 12-16-2022 Patient encounter procedure OG FOLEY Work Phone: [facility] Work Phone: Start: 12-13-2022 End: 12-13-2022 ambulatory OG FOLEY Work Phone: [facility] Work Phone: Start: 12-13-2022 End: 12-13-2022 Patient encounter procedure OG FOLEY Work Phone: [facility] Work Phone: Start: 12-10-2022 End: 12-10-2022 Emergency department patient visit OG FOLEY Work Phone: [facility] Work Phone: Start: 12-06-2022 Refill Davon Feliz in MEDICAL ONCOLOGY PHYSICIAN.AGENCY OWNER Work Phone: Psychiatry Comment on above: Refill Request Start: 11-28-2022 End: 11-28-2022 Patient encounter procedure OG FOLEY Work Phone: [facility] Work Phone: Start: 11-26-2022 Registered Recurring OG Serrano PA Work Phone: [facility] Start: 11-21-2022 End: 11-21-2022 Admission to same day surgery center Clive Zuniga DO Work Phone: General Surgery Comment on above: Weight gain followin g gastric bypass surgery (Primary Dx) Start: 11-21-2022 End: 11-21-2022 Telemedicine consultation with patient Clive Zuniga DO Work Phone: [facility] Start: 11-20-2022 ambulatory Mandie Rushing on PASwatch[employer]C Work Phone: Family [facility] Comment on above: Knee pain Start: 11-19-2022 ambulatory Mandie Rushing on PA-C Work Phone: Internal Medicine [facility] [place] Start: 11-17-2022 End: 11-17-2022 Patient encounter procedure Mandie Garcia PA-C Work Phone: [facility] Comment on above: Pes anserine bursiti s (Primary Dx); Somatic dysfunction of cervical region; Somatic dysfunction of spine, thoracic Start: 11-03-2022 End: 11-03-2022 Subsequent hospital visit by physician Nicole [facility] Work Phone: Radiology Comment on above: Acute pain of left k nee [M25.562] Start: 10-03-2022 Refill Deborah Whittaker MEDICAL ONCOLOGY PHYSICIAN.AGENCY OWNER Work Phone: OB/Gynecology Comment on above: Refill Request Start: 09-18-2022 End: 04-27-2023 Telemedicine consultation with patient Davon Downs MEDICAL ONCOLOGY PHYSICIAN.AGENCY OWNER Work Phone: [facility] Start: 09-18-2022 ambulatory Clive rothman DO Work Phone: General Surgery Comment on above: Weight gain followin g gastric bypass 2 years out Start: 09-18-2022 End: 09-18-2022 Telephone encounter Davon Downs MEDICAL ONCOLOGY PHYSICIAN.AGENCY OWNER Work Phone: Psychiatry Comment on above: Appointment Anxiety disorder, un specified type (Primary Dx); Recurrent major depressive disorder, in full remission (HCC) Start: 09-13-2022 End: 09-13-2022 Emergency department patient visit [facility] Start: 09-11-2022 Patient Msg Davon Feliz in MEDICAL ONCOLOGY PHYSICIAN.AGENCY OWNER Work Phone: Psychiatry Comment on above: Medication Refill Start: 09-02-2022 End: 09-02-2022 Patient encounter procedure Mandie Garcia PA-C Work Phone: [facility] Comment on above: Somatic dysfunction of spine, cervical (Primary Dx); Somatic dysfunction of spine, thoracic; Lightheadedness Start: 08-15-2022 Refill Davon Feliz in MEDICAL ONCOLOGY PHYSICIAN.AGENCY OWNER Work Phone: Psychiatry Comment on above: Refill Request Start: 07-31-2022 End: 07-31-2022 Patient encounter procedure Mandie Garcia PA-C Work Phone: [facility] Comment on above: Cervicothoracic soma tic dysfunction (Primary Dx) Start: 07-01-2022 End: 07-01-2022 Patient encounter procedure Zackery Sotomayor MEDICAL ONCOLOGY PHYSICIAN.AGENCY OWNER Work Phone: [facility] Comment on above: Sinus pressure (Prim deniz Dx) Start: 04-23-2022 Telephone encounter Shashi tyler MEDICAL ONCOLOGY PHYSICIAN.AGENCY OWNER Work Phone: [facility] Comment on above: Results Start: 04-23-2022 End: 04-23-2022 Subsequent hospital visit by physician [facility] [place] Work Phone: Radiology Comment on above: Acute cough [R05.1] Start: 03-03-2022 Refill Mandie Rushing on PA-C Work Phone: [facility] Comment on above: Refill Request Start: 03-03-2022 Refill Mandie Rushing on PA-C Work Phone: [facility] [place] Comment on above: Med Change Request Start: 02-20-2022 ambulatory Mandie Rushing on PA-C Work Phone: [facility] [place] Comment on above: Medicine not helping Start: 02-20-2022 Follow-up encounter Mandie Garcia PA-C Work Phone: [facility] [place] Comment on above: Follow up Start: 02-18-2022 End: 02-18-2022 Patient encounter procedure Mandie Garcia PA-C Work Phone: [facility] Comment on above: Neck sprain, initial encounter (Primary Dx); Cervicothoracic somatic dysfunction Start: 02-14-2022 Refill Mandie Rushing on PA-C Work Phone: [facility] Comment on above: Med Change Request Start: 02-03-2022 Refill Mandie Rushing on PA-C Work Phone: [facility] Comment on above: Refill Request Refill question Start: 01-16-2022 End: 01-16-2022 Patient encounter procedure Mandie Garcia PA-C Work Phone: [facility] [place] Comment on above: TMJ syndrome (Primar y Dx); Muscle tension headache; Cervicothoracic somatic dysfunction Start: 01-09-2022 Refill Deborah Breese MEDICAL ONCOLOGY PHYSICIAN.AGENCY OWNER Work Phone: OB/Gynecology Comment on above: Refill Request; Refi ll Request Start: 12-17-2021 End: 12-17-2021 Patient encounter procedure Deborah Breese MEDICAL ONCOLOGY PHYSICIAN.AGENCY OWNER Work Phone: OB/Gynecology Comment on above: Encounter for gyneco logical examination (general) (routine) without abnormal findings (Primary Dx); Encounter for surveillance of contraceptive pills; Encounter for screening mammogram for breast cancer; Vaginal discharge Start: 12-17-2021 End: 12-17-2021 Patient encounter status Deborah Whittaker MEDICAL ONCOLOGY PHYSICIAN.AGENCY OWNER Work Phone: OB/Gynecology Start: 11-25-2021 Refill Deborah Whittaker MEDICAL ONCOLOGY PHYSICIAN.AGENCY OWNER Work Phone: OB/Gynecology Comment on above: Refill Request Start: 11-21-2021 End: 11-21-2021 [facility] Davon Downs MEDICAL ONCOLOGY PHYSICIAN.AGENCY OWNER Work Phone: Psychiatry Comment on above: Recurrent major depr essive disorder, in full remission (HCC) (Primary Dx); Anxiety disorder, unspecified type Start: 11-15-2021 Refill Davon Feliz in MEDICAL ONCOLOGY PHYSICIAN.AGENCY OWNER Work Phone: Psychiatry Comment on above: Refill Request Protonix Start: 11-09-2021 Refill Deborah Whittaker MEDICAL ONCOLOGY PHYSICIAN.AGENCY OWNER Work Phone: OB/Gynecology Comment on above: Refill Request Start: 10-24-2021 End: 10-24-2021 Patient encounter procedure Deborah Whittaker MEDICAL ONCOLOGY PHYSICIAN.AGENCY OWNER Work Phone: OB/Gynecology Comment on above: Vaginal discharge (P rimary Dx); Dysuria Start: 10-15-2021 Refill Davon Feliz in MEDICAL ONCOLOGY PHYSICIAN.AGENCY OWNER Work Phone: Psychiatry Comment on above: Refill Request Start: 10-13-2021 Refill Mandie acosta PA-C Work Phone: Family Medicine [place] Comment on above: Refill Request Start: 10-07-2021 End: 10-07-2021 Subsequent hospital visit by physician [facility] [place] Work Phone: Radiology Comment on above: Injury of right foot , initial encounter [S99.921A] Start: 10-07-2021 End: 10-07-2021 Patient encounter procedure Leticiaestefania Espinozak MEDICAL ONCOLOGY PHYSICIAN.AGENCY OWNER Work Phone: [facility] Comment on above: Injury of right foot , initial encounter (Primary Dx); Foot pain, right Start: 09-23-2021 Refsharron Feliz in MEDICAL ONCOLOGY PHYSICIAN.AGENCY OWNER Work Phone: Psychiatry Comment on above: Refill Request Start: 08-14-2021 Refill Mandie Rushing ALEXY Work Phone: [facility] [place] Comment on above: Refill Request Start: 03-08-2021 End: 03-08-2021 Subsequent hospital visit by physician Xr [facility] [place] Work Phone: Radiology Comment on above: Bronchitis due to [place] VID-19 virus [U07.1, J40] Start: 10-29-2020 End: 10-29-2020 Subsequent hospital visit by physician Xr [facility] [place] Work Phone: Radiology Comment on above: Acute pain of left k nee [M25.562] Start: 04-13-2020 End: 04-13-2020 Subsequent hospital visit by physician Xr [facility] [place] Work Phone: Radiology Comment on above: Acute pain of left s houlder [M25.512] Start: 04-29-2018 Patient encounter procedure Mandie WARREN (ALEXY) [facility] Procedures Date Procedure Procedure Detail Performing Clinician Start: 07-18-2024 Plain chest X-ray Dr. Portillo Tristan MD Work Phone: Start: 07-18-2024 CT of head without contrast Dr. Corey Tristan MD Work Phone: Start: 07-18-[address] Corey Tristan MD Work Phone: Start: 07-18-2024 Measurement of renal function Dr. Corey Tristan MD Work Phone: Comment on above: GFR Calc Start: 07-18-2024 Urnls dip stick/tabl et reagent auto microscopy Dr. Corey Tristan MD Work Phone: Start: 07-18-2024 Streptococcus pyogen es rRNA assay Dr. Corey Tristan MD Work Phone: Start: 07-16-2024 STREP A MOLECULAR (POC) Martina FOLEY Work Phone: Start: 07-15-2024 Sars-cov-2 Dr. Corey enriquez MD Work Phone: Start: 06-27-2024 Urnls dip stick/tabl et reagent auto microscopy Dr. Corey Tristan MD Work Phone: Start: 06-27-[address] Corey Tristan MD Work Phone: Start: 06-27-2024 Measurement of renal function Dr. Corey Tristan MD Work Phone: Comment on above: GFR Calc Start: 06-27-2024 CT of abdomen and pe lvis without contrast Dr. Croey Tristan MD Work Phone: Start: 05-03-2024 Urnls dip stick/tabl et rgnt auto w/o microscopy Bettina Fuentes MEDICAL ONCOLOGY PHYSICIAN.AGENCY OWNER Work Phone: Start: 04-27-2024 Urnls dip stick/tabl et rgnt auto w/o microscopy Renettamoisés Vega PA-C Work Phone: Start: 04-16-2024 Radiologic exam ches t 2 views Edna Moomaw MEDICAL ONCOLOGY PHYSICIAN.AGENCY OWNER Work Phone: Start: 12-16-2023 Radiologic exam abdo men 1 view Faith Deluna MEDICAL ONCOLOGY PHYSICIAN.AGENCY OWNER Work Phone: Start: 08-28-2023 XR UPPER GI SINGLE CONTRAST Clive C Cetin DO Work Phone: Start: 08-21-2023 Radex spine cervical 4 or 5 views Faith Deluna MEDICAL ONCOLOGY PHYSICIAN.AGENCY OWNER Work Phone: Start: 08-05-2023 Screening mammograph y bi 2-view breast inc cad Bulk Order Provider Start: 12-13-2022 MRI of joint of lowe r extremity PA NA Garcia PA Work Phone: Start: 12-10-2022 Radiologic examinati on of knee PA NA Garcia PA Work Phone: Start: 11-28-2022 Radiologic examinati on of knee PA NA Garcia PA Work Phone: Start: 11-03-2022 Radiologic exam knee complete 4/more views Judah Mobley MD Work Phone: Start: 09-13-2022 Plain chest X-ray Start: 04-23-2022 Radiologic exam ches t 2 views Shashi Chahal MEDICAL ONCOLOGY PHYSICIAN.[facility] Work Phone: Start: 10-24-2021 Urnls dip stick/tabl et rgnt auto w/o microscopy Deborah Whittaker MEDICAL ONCOLOGY PHYSICIAN.AGENCY OWNER Work Phone: Start: 10-07-2021 Radex foot complete minimum 3 views Leticia Walls MEDICAL ONCOLOGY PHYSICIAN.[facility] Work Phone: Start: 03-08-2021 Radiologic exam ches t 2 views Monse Catherine MEDICAL ONCOLOGY PHYSICIAN.[facility] Work Phone: Start: 10-29-2020 Radiologic exam knee complete 4/more views Monse Catherine MEDICAL ONCOLOGY PHYSICIAN.[facility] Work Phone: Start: 06-07-2020 Mammography NA Jose TRACEY Work Phone: Start: 04-13-2020 Radex shoulder compl ete minimum 2 views Judah Mobley MD Work Phone: Start: 11-23-2019 Lipid 1996 panel - S tracy or Plasma No Pcp MEDICAL ONCOLOGY PHYSICIAN Start: 12-14-2018 Colonoscopy No Pcp APR N History of reduction of breast History of bilateral breast reduction surgery Deborah Whittaker MEDICAL ONCOLOGY PHYSICIAN.[facility] Work Phone: Plan of Treatment Date Care Activity Detail Author Start: 11-26-2032 Urine microalbumin profile DTa P,Tdap,Td Vaccine (8 - Td or Tdap) [facility] Start: 02-06-2028 HPV Testing HPV Testing [facility] Start: 02-06-2028 Pap Testing Pap Testing [facility] Start: 02-06-2028 Screening for malign ant neoplasm of cervix [facility] Start: 11-12-2026 Diabetes Screening Diabetes Screenin g [facility] Start: 01-23-2025 Influenza vaccination Influenza Vacc ine (#1) [facility] Start: 11-22-2024 Lipid panel Lipid Screening [facility] Start: 11-01-2024 End: 11-01-2024 Patient encounter procedure 11/01/2024 10:00 AM EDT Office Visit [facility] [address] [place] [address] Bettina Fuentes MEDICAL ONCOLOGY PHYSICIAN.AGENCY OWNER [address] [place] [address] 6 month exam [facility] [place] Comment on above: 6 month exam Start: 10-31-2024 X-ray of knee, four or more views Knee 4 or More Views [facility] Start: 10-31-2024 XR Knee GE 4 Views [facility] Start: 10-11-2024 End: 10-11-2024 Follow-up encounter 10/11/2024 10:30 AM EDT [facility] [address] [place] [address] Davon Downs, MEDICAL ONCOLOGY PHYSICIAN.AGENCY OWNER [address] [place] [address] follow up Psychiatry Comment on above: follow up Start: 08-30-2024 End: 08-30-2024 Follow-up encounter 08/30/2024 2:00 PM EDT [facility] [address] [place] [address] Davon Downs, MEDICAL ONCOLOGY PHYSICIAN.AGENCY OWNER [address] [place] [address] follow up Psychiatry Comment on above: follow up Start: 08-10-2024 End: 08-10-2024 Patient encounter procedure General Surgery Comment on above: 1 WK F/U DRAIN CYST 1 wk f/u back cyst e xicsion-RJ Start: 08-04-2024 Screening for malign ant neoplasm of breast Mammogram Screening [facility] Start: 08-02-2024 Covid-19 Vaccine () Covid-19 Vaccine () [facility] Comment on above: Postponed from 01/23 (Declined at this time) Start: 08-02-2024 End: 08-02-2024 Patient encounter procedure 08/02/2024 1:15 PM EDT Office Visit General Surgery [address] [place] [address] Ashish Calvillo MD [address] [place] [address] Back with inflamed cyst that is large grape sized, red, hot, and painful General Surgery Comment on above: Back with inflamed c yst that is large grape sized, red, hot, and painful Start: 08-01-2024 End: 08-01-2024 Patient encounter procedure [facility] Plastic Surgery Comment on above: Cyst check cyst on upper back taking antibiotics Start: 07-18-2024 [facility] Start: 07-15-2024 [facility] Start: 06-28-2024 [facility] Start: 06-27-2024 End: 06-27-2024 [facility] Start: 04-18-2024 End: 04-18-2024 Patient encounter procedure 04/18/2024 11:20 AM EST Office Visit [facility] [place] [address] [facility] [place] [address] Bettina Fuentes APRN.AGENCY OWNER [address] [place] [address] 3 month f/u [facility] Comment on above: 3 month f/u Start: 2024 Screening for malign ant neoplasm of colon [facility] Start: 03-03-2024 HPV TESTING HPV TESTING [facility] Start: 03-03-2024 PAP TESTING PAP TESTING [facility] Start: 02-24-2024 End: 02-24-2024 ambulatory Psychiatry Start: 02-15-2024 End: 02-15-2024 Patient encounter procedure 02/15/2024 9:30 AM EDT Office Visit General Surgery [address] [place] [address] Ashlee Lee APRN.AGENCY OWNER [address] [place] [address] follow up, colonoscopy General Surgery Comment on above: follow up, colonosco py Start: 02-08-2024 End: 02-08-2024 Patient encounter procedure 02/08/2024 9:30 AM EDT Office Visit OB/Gynecology [address] [place], [place] [id number] Deborah Whittaker APRN.AGENCY OWNER [address] [place], [place] [id number] ANNUAL OB/Gynecology Comment on above: ANNUAL Start: 02-04-2024 End: 02-04-2024 Patient encounter procedure [facility] Comment on above: scheudled by office Start: 02-04-2024 End: 02-04-2024 Patient encounter procedure 02/04/2024 9:15 AM EDT Appointment [facility] [address] [place] [address] Antonietta Gonzalez MD [address] [place] [id number] pt wants early am scheudled by office [facility] Comment on above: pt wants early am sc heudled by office Start: 02-01-2024 End: 02-01-2024 Follow-up encounter 02/01/2024 10:30 AM EDT [facility] [address] [place] [address] Davon Downs APRN.AGENCY OWNER [address] [place] [address] follow up Psychiatry Comment on above: follow up Start: 01-24-2024 Covid-19 Vaccine ( season) Covid-19 Vaccine ( season) [facility] Start: 01-24-2024 Covid-19 Vaccine ( season) Covid-19 Vaccine ( season) [facility] Start: 01-24-2024 Influenza vaccination Influenza Vacc ine (#1) [facility] Start: 12-28-2023 End: 12-28-2023 Patient encounter procedure 12/28/2023 1:00 PM EDT Office Visit General Surgery [address] [place] [address] Ashlee Lee APRN.AGENCY OWNER [address] [place] [address] Colonoscopy consultation General Surgery Comment on above: Colonoscopy consulta tion Start: 11-22-2023 Influenza vaccination Influenza Vacc ine (#1) [facility] Comment on above: Postponed from 01/23 (Declined at this time) Start: 11-13-2023 End: 02-12-2024 Comprehensive metabolic 2000 panel - Serum or Plasma [facility] Work Phone: Comment on above: Expected: 11/13/2023 , Expires: 02/12/2024 Start: 11-13-2023 End: 02-12-2024 Ferritin [Mass/volume] in Serum or Plasma [facility] Comment on above: Expected: 11/13/2023 , Expires: 02/12/2024 Start: 11-13-2023 End: 02-12-2024 Iron and Iron binding capacity panel - Serum or Plasma [facility] Comment on above: Expected: 11/13/2023 , Expires: 02/12/2024 Start: 11-13-2023 End: 02-12-2024 Lipase [Enzymatic activity/volume] in Serum or Plasma [facility] Comment on above: Expected: 11/13/2023 , Expires: 02/12/2024 Start: 11-13-2023 End: 02-12-2024 Magnesium [Mass/volume] in Serum or Plasma [facility] Comment on above: Expected: 11/13/2023 , Expires: 02/12/2024 Start: 09-03-2023 COVID-19 VACCINE (#1) COVID-19 VACCI NE (#1) [facility] Comment on above: Postponed from 09/18 (Declined at this time) Start: 09-03-2023 HEPATITIS B (1 of 3 - 3-dose series) HEPATITIS B (1 of 3 - 3-dose series) [facility] Comment on above: Postponed from 03/20 (Current Illness) Start: 09-03-2023 Hepatitis B Vaccine (1 of 3 - 19+ 3-dose series) Hepatitis B Vaccine (1 of 3 - 19+ 3-dose series) [facility] Comment on above: Postponed from 03/20 (Current Illness) Start: 09-03-2023 Hepatitis B Vaccine (1 of 3 - 3-dose series) Hepatitis B Vaccine (1 of 3 - 3-dose series) [facility] Comment on above: Postponed from 03/20 (Current Illness) Start: 09-03-2023 HEPATITIS C SCREENING HEPATITIS C [facility] Comment on above: Postponed from 03/20 (Declined at this time) Start: 09-03-2023 Hepatitis C screening Hepatitis C [facility] Comment on above: Postponed from 03/20 (Declined at this time) Start: 09-03-2023 HIV SCREENING HIV SCREENING [facility] Comment on above: Postponed from 03/20 (Declined at this time) Start: 09-03-2023 HIV screening HIV Screening [facility] Comment on above: Postponed from 03/20 (Declined at this time) Start: 09-03-2023 Urine microalbumin profile [facility] Comment on above: Postponed from 06/09 (Current Illness) Start: 02-05-2023 End: 04-07-2023 Estradiol (E2) [Mass/volume] in Serum or Plasma ESTRADIOL-17B BLD Lab Routine Hot flashes Expected: 02/05/2023, Expires: 04/07/2023 [facility] Work Phone: Comment on above: Expected: 02/05/2023 , Expires: 04/07/2023 Start: 02-05-2023 End: 04-07-2023 Follitropin [Units/volume] in Serum or Plasma FSH BLD Lab Routine Hot flashes Expected: 02/05/2023, Expires: 04/07/2023 [facility] Work Phone: Comment on above: Expected: 02/05/2023 , Expires: 04/07/2023 Start: 01-23-2023 Influenza vaccination [facility] Start: 11-21-2022 End: 01-21-2023 25-hydroxyvitamin D3 [Mass/volume] in Serum or Plasma VITAMIN D 25 HYDROXY Lab Routine Weight gain following gastric bypass surgery Expected: 11/21/2022, Expires: 01/21/2023 [facility] Work Phone: Comment on above: Expected: 11/21/2022 , Expires: 01/21/2023 Start: 11-21-2022 End: 01-21-2023 CBC W Auto Differential panel - Blood CBC + DIFF Lab Routine Weight gain following gastric bypass surgery Expected: 11/21/2022, Expires: 01/21/2023 [facility] Work Phone: Comment on above: Expected: 11/21/2022 , Expires: 01/21/2023 Start: 11-21-2022 End: 01-21-2023 Cobalamin (Vitamin B12) [Mass/volume] in Serum or Plasma VITAMIN B12 BLOOD Lab Routine Weight gain following gastric bypass surgery Expected: 11/21/2022, Expires: 01/21/2023 [facility] Work Phone: Comment on above: Expected: 11/21/2022 , Expires: 01/21/2023 Start: 11-21-2022 End: 01-21-2023 Comprehensive metabolic 2000 panel - Serum or Plasma COMP METABOLIC PANEL Lab Routine Weight gain following gastric bypass surgery Expected: 11/21/2022, Expires: 01/21/2023 [facility] Work Phone: Comment on above: Expected: 11/21/2022 , Expires: 01/21/2023 Start: 11-21-2022 End: 01-21-2023 Ferritin [Mass/volume] in Serum or Plasma FERRITIN BLD Lab Routine Weight gain following gastric bypass surgery Expected: 11/21/2022, Expires: 01/21/2023 [facility] Work Phone: Comment on above: Expected: 11/21/2022 , Expires: 01/21/2023 Start: 11-21-2022 End: 01-21-2023 Folate [Mass/volume] in Serum or Plasma FOLATE SERUM Lab Routine Weight gain following gastric bypass surgery Expected: 11/21/2022, Expires: 01/21/2023 [facility] Work Phone: Comment on above: Expected: 11/21/2022 , Expires: 01/21/2023 Start: 11-21-2022 End: 01-21-2023 Iron and Iron binding capacity panel - Serum or Plasma IRON + TIBC Lab Routine Weight gain following gastric bypass surgery Expected: 11/21/2022, Expires: 01/21/2023 [facility] Work Phone: Comment on above: Expected: 11/21/2022 , Expires: 01/21/2023 Start: 11-21-2022 End: 01-21-2023 Parathyrin.intact [Mass/volume] in Serum or Plasma PTH INTACT BLD Lab Routine Weight gain following gastric bypass surgery Expected: 11/21/2022, Expires: 01/21/2023 [facility] Work Phone: Comment on above: Expected: 11/21/2022 , Expires: 01/21/2023 Start: 11-21-2022 End: 01-21-2023 Thyrotropin [Units/volume] in Serum or Plasma TSH BLD Lab Routine Weight gain following gastric bypass surgery Expected: 11/21/2022, Expires: 01/21/2023 [facility] Work Phone: Comment on above: Expected: 11/21/2022 , Expires: 01/21/2023 Start: 11-21-2022 End: 01-21-2023 VITAMIN B1 (THIAMINE), WHOLE BLOOD VITAMIN B1 (THIAMINE), WHOLE BLOOD Lab Routine Weight gain following gastric bypass surgery Expected: 11/21/2022, Expires: 01/21/2023 [facility] Work Phone: Comment on above: Expected: 11/21/2022 , Expires: 01/21/2023 Start: 07-29-2022 COVID-19 VACCINE (#1) COVID-19 VACCI NE (#1) [facility] Comment on above: Postponed from 03/20 (Declined at this time) Postponed from 09/18 (Declined at this time) Start: 07-29-2022 COVID-19 VACCINE (1) COVID-19 VACCIN E (1) [facility] Comment on above: Postponed from 03/20 (Declined at this time) Start: 01-23-2022 Influenza vaccination [facility] Start: 11-21-2021 Influenza vaccination INFLUENZA (#1) [facility] Comment on above: Postponed from 01/23 (Declined at this time) Start: 06-09-2021 Urine microalbumin profile DTA P,TDAP,TD (7 - Td or Tdap) [facility] Start: 06-07-2021 Mammography [facility] Start: 06-07-2021 Screening for malign ant neoplasm of breast Mammogram Screening [facility] Start: 1998 Hepatitis B Vaccine (1 of 3 - 19+ 3-dose series) Hepatitis B Vaccine (1 of 3 - 19+ 3-dose series) [facility] Start: 1997 HEPATITIS C SCREENING HEPATITIS C [facility] Start: 1997 Hepatitis C screening Hepatitis C [facility] Start: 1997 HIV SCREENING HIV SCREENING [facility] Start: 1997 HIV screening HIV Screening [facility] Start: 1979 COVID-19 VACCINE (#1) COVID-19 VACCI NE (#1) [facility] Start: 1979 HEPATITIS B (1 of 3 - 3-dose series) HEPATITIS B (1 of 3 - 3-dose series) [facility] Bacteria identified in Urine by Culture URINE CULTURE Microbiology Routine Urinary frequency Ordered: 04/27/2024 [facility] Work Phone: Comment on above: Ordered: 04/27/2024 Bacteria identified in Urine by Culture URINE CULTURE Microbiology Routine Dysuria 05/03/2024 4:46 PM EST [facility] Work Phone: BACTERIAL VAGINOSIS AMPLIFICATION BACTERIAL VAGINOSIS AMPLIFICATION Lab Routine Vaginal discharge 10/24/2021 3:24 PM EDT [facility] Work Phone: BACTERIAL VAGINOSIS AMPLIFICATION BACTERIAL VAGINOSIS AMPLIFICATION Lab Routine Vaginal discharge 12/17/2021 3:29 PM EDT [facility] Work Phone: THONY / TRICHOMONA S AMPLIFICATION THONY / TRICHOMONAS AMPLIFICATION Lab Routine Vaginal discharge 10/24/2021 3:24 PM EDT [facility] Work Phone: THONY / TRICHOMONA S AMPLIFICATION THONY / TRICHOMONAS AMPLIFICATION Lab Routine Vaginal discharge 12/17/2021 3:29 PM EDT [facility] Work Phone: Chlamydia trachomatis+Neisseria gonorrhoeae DNA [Presence] in Unspecified specimen by ELIZABETH with probe detection GC/CHLAMYDIA DNA DET Lab Routine Vaginal discharge 10/24/2021 3:24 PM EDT [facility] Work Phone: Chlamydia trachomatis+Neisseria gonorrhoeae DNA [Presence] in Unspecified specimen by ELIZABETH with probe detection GC/CHLAMYDIA DNA DET Lab Routine Vaginal discharge 12/17/2021 3:29 PM EDT [facility] Work Phone: Clostridioides diffi cile toxin genes [Presence] in Stool by ELIZABETH with probe detection C. DIFFICILE PCR Lab Routine Diarrhea, unspecified type Ordered: 12/16/2023 [facility] Comment on above: Ordered: 12/16/2023 End: 03-09-2025 DBT Breast - bilateral screening JEREMY SCREENING W YANELY Radiology Routine Encounter for screening mammogram for breast cancer 1 Occurrences starting 02/08/2024 until 03/09/2025 [facility] Work Phone: Comment on above: 1 Occurrences starti ng 02/08/2024 until 03/09/2025 ENTERIC BACTERIAL PA LINDA BY PCR ENTERIC BACTERIAL PANEL BY PCR Lab Routine Diarrhea, unspecified type Ordered: 12/16/2023 [facility] Comment on above: Ordered: 12/16/2023 End: 12-27-2024 Flexible sigmoidoscopy study COLONOSCOPY DIAGNOSTIC Endoscopy Routine Diarrhea, unspecified type Occult blood positive stool 1 Occurrences starting 12/28/2023 until 12/27/2024 [facility] Work Phone: Comment on above: 1 Occurrences starti ng 12/28/2023 until 12/27/2024 End: 12-19-2023 JEREMY SCREENING JEREMY SCREENING Radiology Routine Encounter for screening mammogram for breast cancer 1 Occurrences starting 11/19/2022 until 12/19/2023 [facility] Work Phone: Comment on above: 1 Occurrences starti ng 11/19/2022 until 12/19/2023 End: 03-06-2024 JEREMY SCREENING W YANELY JEREMY SCREENING W YANELY Radiology Routine History of bilateral breast reduction surgery 1 Occurrences starting 02/05/2023 until 03/06/2024 [facility] Work Phone: Comment on above: 1 Occurrences starti ng 02/05/2023 until 03/06/2024 MR Lower Extremity Joint [facility] OCCULT BLD EXAM-DIAG OCCULT BLD EXAM-DIAG Microbiology Routine Diarrhea, unspecified type Ordered: 12/16/2023 [facility] Work Phone: Comment on above: Ordered: 12/16/2023 Ova and parasites identified in Unspecified specimen by Light microscopy OVA + PARA MICROSCOPIC Microbiology Routine Diarrhea, unspecified type Ordered: 12/16/2023 [facility] Comment on above: Ordered: 12/16/2023 PAP TEST PAP TEST Lab Christopher means Encounter for gynecological examination (general) (routine) without abnormal findings Screening for cervical cancer Encounter for screening for human papillomavirus (HPV) Ordered: 02/05/2023 [facility] Work Phone: Comment on above: Ordered: 02/05/2023 Patient Education [facility] Work Phone: Patient referral [facility] Work Phone: Respiratory syncytia l virus Ag [Presence] in Nasopharynx by Rapid immunoassay [facility] End: 09-15-2024 RF Gastrointestinal tract upper Views W barium contrast PO XR UPPER GI SINGLE CONTRAST Radiology Routine Weight gain following gastric bypass surgery 1 Occurrences starting 08/17/2023 until 09/15/2024 [facility] Work Phone: Comment on above: 1 Occurrences starti ng 08/17/2023 until 09/15/2024 End: 01-16-2023 Screening mammography bi 2-view breast inc cad JEREMY SCREENING Radiology Routine Encounter for screening mammogram for breast cancer 1 Occurrences starting 12/17/2021 until 01/16/2023 [facility] Work Phone: Comment on above: 1 Occurrences starti ng 12/17/2021 until 01/16/2023 End: 01-14-2025 XR Abdomen Supine and Upright XR ABDOMEN 1V SUPINE Radiology Routine Abdominal cramping 1 Occurrences starting 12/16/2023 until 01/14/2025 [facility] Comment on above: 1 Occurrences starti ng 12/16/2023 until 01/14/2025 XR Abdomen Supine an d Upright XR ABDOMEN 1V SUPINE Radiology Routine Abdominal cramping 12/16/2023 10:03 AM EDT [facility] Immunizations Immunization Date Immunization Notes Care Provider [facility] 03-10-2024 influenza, seasonal, injectable, preservative free Dr. Corey Tristan MD Work Phone: [facility] 03-10-2024 influenza virus vaccine, unspecified formulation Davon Downs APRN.AGENCY OWNER Work Phone: [facility] 03-30-2023 influenza, injectabl e, quadrivalent, preservative free Dr. Corey Tristan MD Work Phone: [facility] 03-30-2023 influenza virus vaccine, unspecified formulation NA Garcia PA-C Work Phone: [facility] 11-26-2022 tetanus toxoid, redu kyle diphtheria toxoid, and acellular pertussis vaccine, adsorbed PA NA Garcia PA Work Phone: [facility] 04-13-2020 influenza, injectabl e, quadrivalent, contains preservative NA Garcia PA-C Work Phone: [facility] 04-13-2020 influenza virus vaccine, unspecified formulation Deborah Whittaker APRN.AGENCY OWNER Work Phone: [facility] 04-27-2018 influenza, injectabl e, quadrivalent, contains preservative NA Garcia PA-C Work Phone: [facility] 03-16-2017 influenza, injectabl e, quadrivalent, contains preservative NA Garcia PA-C Work Phone: [facility] 05-07-2015 influenza, injectabl e, quadrivalent, contains preservative NA Garcia PA-C Work Phone: [facility] 05-07-2015 influenza, seasonal, injectable NA Garcia PA-C Work Phone: [facility] 03-08-2014 influenza, seasonal, injectable NA Garcia PA-C Work Phone: [facility] 11-01-2013 measles, mumps and rubella virus vaccine NA Garcia PA-C Work Phone: [facility] 04-01-2013 influenza virus vaccine, unspecified formulation NA Garcia PA-C Work Phone: [facility] Work Phone: 06-09-2011 tetanus toxoid, redu kyle diphtheria toxoid, and acellular pertussis vaccine, adsorbed NA Garcia PA-C Work Phone: [facility] Work Phone: 04-07-2005 hepatitis B vaccine, pediatric or pediatric/adolescent dosage NA Garcia PA-C Work Phone: [facility] 04-07-2005 hepatitis B vaccine, unspecified formulation Deborah Whittaker APRN.CNP Work Phone: [facility] 11-06-2004 hepatitis B vaccine, pediatric or pediatric/adolescent dosage NA Garcia PA-C Work Phone: [facility] 09-30-2004 hepatitis B vaccine, pediatric or pediatric/adolescent dosage NA Garcia PA-C Work Phone: [facility] 10-23-1997 tetanus and diphther ia toxoids, adsorbed, preservative free, for adult use (2 Lf of tetanus toxoid and 2 Lf of diphtheria toxoid) NA Garcia PA-C Work Phone: [facility] Work Phone: 09-09-1991 measles, mumps and rubella virus vaccine NA Garcia PA-C Work Phone: [facility] 09-27-1985 diphtheria and tetan us toxoids, adsorbed for pediatric use NA Garcia PA-C Work Phone: [facility] 09-27-1985 tetanus and diphther ia toxoids, adsorbed, preservative free, for adult use (2 Lf of tetanus toxoid and 2 Lf of diphtheria toxoid) NA Garcia PA-C Work Phone: [facility] Work Phone: 09-27-1985 trivalent poliovirus vaccine, live, oral NA Garcia PA-C Work Phone: [facility] Work Phone: 02-03-1983 diphtheria, tetanus toxoids and pertussis vaccine NA Garcia PA-C Work Phone: [facility] Work Phone: 02-03-1983 trivalent poliovirus vaccine, live, oral NA Garcia PA-C Work Phone: [facility] Work Phone: 10-29-1981 trivalent poliovirus vaccine, live, oral NA Garcia PA-C Work Phone: [facility] Work Phone: 06-23-1980 measles, mumps and rubella virus vaccine NA Garcia PA-C Work Phone: [facility] Work Phone: 1979 diphtheria, tetanus toxoids and pertussis vaccine NA Garcia PA-C Work Phone: [facility] Work Phone: 1979 diphtheria, tetanus toxoids and pertussis vaccine NA Garcia PA-C Work Phone: [facility] Work Phone: 1979 trivalent poliovirus vaccine, live, oral NA Garcia PA-C Work Phone: [facility] 1979 diphtheria, tetanus toxoids and pertussis vaccine NA Garcia PA-C Work Phone: [facility] Work Phone: 1979 trivalent poliovirus vaccine, live, oral NA Jose PA-C Work Phone: [facility] Work Phone: 1979 trivalent poliovirus vaccine, live, oral NA Garcia PA-C Work Phone: [facility] Work Phone: Payers Date Payer Category Payer Self-pay [id number] 2012 Unknown [id number] 2008 Medicaid [employer] [id number] 2008-[facility] [phone] [address] [place] [address] Medicaid [id number] 2008 Medicaid [id number] Unknown [id number] Unknown [id number] Unknown [id number] Unknown [id number] Unknown [id number] Unknown [id number] Unknown [id number] Unknown [id number] Unknown [id number] Unknown [id number] Unknown [id number] Unknown [id number] Unknown [id number] Unknown [id number] Unknown [id number] Unknown [id number] Unknown [id number] Unknown [id number] Unknown [id number] Social History Date Type Detail Facility Start: 11-22-2013 End: 01-15-2024 Tobacco smoking status NHIS Ex-smoker [facility] Work Phone: Start: 07-22-2001 End: 07-22-2013 History of tobacco use Current smoker [facility] Work Phone: Start: 07-22-2001 End: 07-22-2013 History of tobacco use Cigarette Smoker [facility] Work Phone: Start: 11-22-2013 End: 11-03-2022 Cigarettes smoked current (pack per day) - Reported 0.5 [facility] Start: 11-22-2013 End: 01-15-2024 Tobacco use and exposure Smokeless tobacco non-user [facility] Work Phone: Start: 04-13-2020 End: 07-29-2021 Alcohol intake Current drinker of alcohol (finding) [facility] Start: 11-29-2019 End: 11-03-2022 History SDOH Alcohol Frequency 2 [facility] Start: 11-29-2019 End: 11-03-2022 History SDOH Alcohol Std Drinks 98 [facility] Start: 11-29-2019 End: 11-03-2022 History SDOH Alcohol Binge 1 [facility] Start: 03-03-2019 History SDOH Alcohol Comment Rarely [facility] Start: 09-23-2019 End: 11-03-2022 History SDOH Social Connections Living 7 [facility] Start: 09-23-2019 History SDOH Physica l Activity DPW 0 [facility] Start: 09-23-2019 End: 11-03-2022 History SDOH Stress 3 [facility] Start: 09-23-2019 Education 12 [facility] Start: 01-25-2008 Tobacco Comment patient states is trying to quit/ Has not smoked for the past couple of days. (01/25/2008) [facility] Start: 1980 Sex Assigned At Not on file C [facility] Start: 03-14-2020 End: 04-23-2022 Exposure to SARS-CoV-2 (event) Not sure [facility] Start: 08-27-2021 History SDOH Physica l Activity MPS 15 [facility] Start: 09-13-2022 End: 12-16-2022 Tobacco smoking status NHIS Unknown if ever smoked [facility] Start: 05-08-2021 Cigarettes [facility] Start: 1980 Sex Assigned At Female W [facility] Start: 11-03-2022 History SDOH Social Connections Get Together 4 [facility] Start: 11-03-2022 End: 12-15-2023 Social connection and isolation panel [facility] Do you belong to any clubs or organizations such as buddhism groups, unions, fraternal or athletic groups, or school groups? No [facility] How often do you att end meetings of the clubs or organizations you belong to? Patient refused [facility] Are you now , , , , never or living with a partner? Never [facility] How hard is it for y ou to pay for the very basics like food, housing, medical care, and heating Somewhat hard [facility] Do you feel stress - tense, restless, nervous, or anxious, or unable to sleep at night because your mind is troubled all the time - these days [OSQ] Not at all [facility] (I/We) worried wheth er (my/our) food would run out before (I/we) got money to buy more. Never true [facility] In the past 12 month s, was there a time when you were not able to pay the mortgage or rent on time? Yes [facility] How often to you hav e a drink containing alcohol? Never [facility] How hard is it for y ou to pay for the very basics like food, housing, medical care, and heating Hard [facility] (I/We) worried wheth er (my/our) food would run out before (I/we) got money to buy more. Often true [facility] The food that (I/we) bought just didn't last, and (I/we) didn't have money to get more. Sometimes true [facility] Start: 02-08-2024 End: 10-14-2024 Alcoholic beverage intake Ex-drinker (finding) [facility] How often to you hav e a drink containing alcohol? Monthly or less [facility] Do you feel stress - tense, restless, nervous, or anxious, or unable to sleep at night because your mind is troubled all the time - these days [OSQ] To some extent [facility] Start: 08-22-2024 Sex Female (finding) [facility] NEGATED: Highlighted row [facility] Functional Status Date Assessment Result Facility 11-10-2020 Are you deaf, or do you have serious difficulty hearing No 11/10/2020 5:07 PM Aston Snyder RN No [facility] 11-10-2020 Are you blind, or do you have serious difficulty seeing, even when wearing glasses No 11/10/2020 5:07 PM Aston Snyder, RN No [facility] 11-10-2020 Do you have serious difficulty walking or climbing stairs No 11/10/2020 5:07 PM Aston Snyder RN No [facility] 11-10-2020 Do you have difficul ty dressing or bathing No 11/10/2020 5:07 PM EDT Aston Burroughs RN No [facility] 11-10-2020 Because of a physica l, mental, or emotional condition, do you have difficulty doing errands alone such as visiting a physician's office or shopping No 11/10/2020 5:07 PM EDT Aston Burroughs RN No [facility] Mental Status Date Assessment Result Facility 07-18-2024 Cognitive function Level Of Cons ciousness Drowsy [facility] Work Phone: 09-13-2022 Cognitive function Voice/Name [facility] Work Phone: 11-10-2020 Because of a physica l, mental, or emotional condition, do you have serious difficulty concentrating, remembering, or making decisions No 11/10/2020 5:07 PM EDT Aston Burroughs RN No [facility] Clinical Notes 04-13-2020 to 12-12-2024 Telephone Encounter - Ellie Kwong LPN - 12/12/2024 10:31 AM EDTTelephone Encounter - Ellie Kwong LPN - 12/12/2024 10:31 AM EDTTelephone Encounter - Yojana Palmer RN - 11/09/2024 10:26 AM EDT Note Date & Type Note Facility 12-12-2024 Telephone encounter Note Prescription Refill Information The patient has been identified by name and date of : Yes Caregiver verified no other encounters exist for this prescription request: Yes Caregiver confirmed with patient/requestor that no other refills are due, in the near future, with this provider at this time: Yes The last office visit in the department: 10/11/2024 Does the patient have a future office visit with this provider/department: No Requested Prescriptions Pending Prescriptions Disp Refills DULoxetine DR (CYMBALTA) 30 mg capsule 90 capsule 0 Sig: Take 1 capsule by mouth once daily. Ellie Kwong LPN December 12, 2024 10:32 AM [facility] 12-12-2024 Miscellaneous Notes Prescription Refill Information The patient has been identified by name and date of : Yes Caregiver verified no other encounters exist for this prescription request: Yes Caregiver confirmed with patient/requestor that no other refills are due, in the near future, with this provider at this time: Yes The last office visit in the department: 10/11/2024 Does the patient have a future office visit with this provider/department: No Requested Prescriptions Pending Prescriptions Disp Refills DULoxetine DR (CYMBALTA) 30 mg capsule 90 capsule 0 Sig: Take 1 capsule by mouth once daily. Ellie Kwong LPN December 12, 2024 10:32 AM documented in this encounter [facility] 11-09-2024 Telephone encounter Note Patient returns call and provider message reviewed with verbalized understanding. Sophia Greco RN [facility] 11-09-2024 Miscellaneous Notes Patient returns call and provider message reviewed with verbalized understanding. Sophia Greco RN Attempted to call patient back with provider's message, no answer. VM left to call provider's office and ask for a nurse, for response below. Yojana Palmer RN Agree. Can[place] something stronger [place] state [place]. Just had a steroid injection so not sure they can do much more. Agree, can call ortho for ideas or see local urgent care or er if it is that severe. Can try something like voltaren gel otc if joint is not hot or red. Patient calling in. Reports she is currently in [place]. Reports she saw [facility] last week for a steroid injection, which has not helped her left knee pain. States she has right leg sciatica flare now as well and is going crazy due to the discomfort. Unable to take NSAIDS. Taking Tylenol, using ice and topical analgesics. Tearful. Asking if Milady Fuentes CNP would send order to a [facility] in [place] for prednisone or other medication. Pt sees Dr. Hummel in Pain Mgmt for cervical issues. Informed pt that provider is out of the office. Advised patient to contact [facility] or seek local UC or ED for severe pain. Patient asking if Dr. Moblye could offer her any further advise or assistance. Patient Yojana Palmer RN documented in this encounter [facility] 11-09-2024 Telephone encounter Note Attempted to call patient back with provider's message, no answer. VM left to call provider's office and ask for a nurse, for response below. Yojana Palmer RN [facility] 11-09-2024 Telephone encounter Note Agree. Can't call in something stronger across state lines legally. Just had a steroid injection so not sure they can do much more. Agree, can call ortho for ideas or see local urgent care or er if it is that severe. Can try something like voltaren gel otc if joint is not hot or red. [facility] Work Phone: 11-09-2024 Telephone encounter Note Patient calling in. Reports she is currently in [place]. Reports she saw [facility] last week for a steroid injection, which has not helped her left knee pain. States she has right leg sciatica flare now as well and is going crazy due to the discomfort. Unable to take NSAIDS. Taking Tylenol, using ice and topical analgesics. Tearful. Asking if Milady Fuentes CNP would send order to a [facility] in [place] for prednisone or other medication. Pt sees Dr. Hummel in Pain Mgmt for cervical issues. Informed pt that provider is out of the office. Advised patient to contact [facility] or seek local UC or ED for severe pain. Patient asking if Dr. Mobley could offer her any further advise or assistance. Patient Yojana Palmer RN [facility] 10-14-2024 Note HNO ID: [id number] Author: BETTINA FUENTES APRN.RACHID Service: ? Author Type: Nurse Practitioner Type: Progress Notes Filed: 10/14/2024 15:49 Note Text: This is a 44 year old female who presents today with: Patient presents with: Acute Visit: Left side of face is hot, side of mouth is tingly, left earache, left side neck pain HISTORY OF PRESENT ILLNESS: Fernanda Hernandez is a 44 year old female. Patient presents with: Acute Visit: Left side of face is hot, side of mouth is tingly, left earache, left side neck pain Fernanda is a 44-year-old female presenting with acute onset left facial erythema and warmth, left ear pain, and chronic neck pain. Left Facial Erythema and Warmth: - Onset today around 12:00, resolved by 14:00. - Erythema and warmth localized to the left cheek, extending slightly to the nose and right side. - Describes sensation as hot to the touch. - No associated pain, sinus congestion, or dental pain. - Denies fever or chills. Left Ear Pain: - Acute onset today, described as a sharp pressure similar to an earache. - Pain radiates down the neck and under the jaw. - Denies dysphagia. Chronic Neck Pain: - Severe neck pain for several weeks, with a history of chronic neck pain for years. - Recent exacerbation following a crack in the neck while bending over to pet a dog about 1.5 weeks ago. - Describes sensation as somebody is digging up underneath my skull and trying to lift it up. - Suspected slipped or herniated disc; awaiting MRI approval. - Pain radiates down the arm and into the fingers, present for about 1.5 weeks. 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 - Reports medications are ineffective for pain relief. - Currently on day 4 of a tapering steroid pack. - Taking Lamictal, recently increased by psychiatrist. - Has leftover Percocet from a previous ER visit, taken last night. - Denies recent trauma; unsure if current issues are related to a past fall. - Physical therapy reportedly worsened the condition. PAST MEDICAL HISTORY: PAST MEDICAL HISTORY Diagnosis Date Delayed emergence from general anesthesia Fibromyalgia 08/20/2016 GERD (gastroesophageal reflux disease) 03/12/2009 Hiatal hernia Hypoglycemia, unspecified Mental disorder anxiety and depression Migraine without aura 2001 Morbid obesity (HCC) Normal cardiac stress test 01/23/2012 PONV (postoperative nausea and vomiting) Sleep apnea Snoring Unspecified prophylactic or treatment measure PAST SURGICAL HISTORY Procedure Laterality Date COLONOSCOPY BX SINGLE/MULTI 02/04/2024 COLONOSCOPY W/BIOPSY SINGLE/MULTIPLE 12/14/2018 EGD 01/31/2020 ESOPHAGOGASTRODUODENOSCOPY TRANSORAL DIAGNOSTIC 04/11/2005 EGD ESOPHAGOGASTRODUODENOSCOPY TRANSORAL DIAGNOSTIC 03/06/2017 EGD GASTRIC BYPASS, TATI-EN-Y 11/08/2020 w/ Lap hiatal hernia repair LAP REPAIR, PARAESOPHAGEAL HIATAL HERNIA 11/08/2020 LAPAROSCOPY SURG CHOLECYSTECTOMY 03/21/2016 REDUCTION OF LARGE BREAST 2014 TONSILLECTOMY AND ADENOIDECTOMY AGE 11/> 2002 DR. EASTMAN ALLERGIES Aciphex [Rabeprazole Sodium], Entex Pse [Pseudoephedrine-Guaifenesin], Nexium [Esomeprazole Magnesium], Prevacid [Lansoprazole], Prilosec [Omeprazole], Sulfa (Sulfonamide Antibiotics), and Wellbutrin [Bupropion Hcl] MEDICATIONS Current Outpatient Medications Medication Sig baclofen 10 mg tablet Take 10 mg by mouth three times a day as needed. methylPREDNISolone (MEDROL DOSE-PACK) 4 mg Dose-Pack gabapentin (NEURONTIN) 300 mg capsule Take 300 mg by mouth two times a day. lamoTRIgine (LAMICTAL) 150 mg tablet Take 1 tablet by mouth daily at bedtime. take with 100 mg tablet for total daily dose 250 mg lamoTRIgine (LAMICTAL) 100 mg tablet Take 1 tablet by mouth daily at bedtime. take with 150 mg tablet for total daily dose 250 mg DULoxetine (CYMBALTA) 30 mg capsule Take 1 capsule by mouth once daily. norgestimate 0.25 mg-ethinyl estradiol 35 mcg (TAMARA) 0.25-35 mg-mcg per tablet Take 1 tablet by mouth once daily. Take active pills only. No inactive week. MAGNESIUM GLYCINATE ORAL Take 200 mg by mouth once daily. Multivitamin capsule Take 1 capsule by mouth once daily. BIOTIN, BULK, MISC cholecalciferol, vitamin D3, (VITAMIN D3 ORAL) Take by mouth. ascorbic acid (VITAMIN C ORAL) Take by mouth once daily. clonazePAM (KLONOPIN) 0.5 mg tablet can take Klonopin 0.5mg 1/2 tablet daily for anxiety attacks as needed, use very sparingly, do not mix with alcohol and do not drive after taking Max order is 5 pills or 10 doses per month baclofen 5 mg tablet gabapentin (NEURONTIN) 100 mg capsule Take 1 capsule by mouth three times a day for 90 days. No current facility-administered medications for this visit. FAMILY HISTORY Problem Relation Age of Onset Arthritis Mother Diabetes Mother Headache Father Lipids Father Headache Sister Diabetes Mate (more content not included)... [facility] 10-10-2024 Note HNO ID: [id number] Author: DAVON DWONS APRN.[facility] Service: ? Author Type: Nurse Practitioner Type: Progress Notes Filed: 10/11/2024 11:11 Note Text: FOLLOW UP - PSYCHIATRIC PROGRESS NOTE Visit Type:Virtual Visit utilizing two-way audio and video for at least a portion of the visit. Consent for virtual visit obtained verbally. Confidentiality limitations with virtual visits reviewed with the patient and guardian, if present, who have accepted the risk verbally prior to proceeding with encounter. I have communicated my name and active licensure. The patient's identity and physical location were verified at the time of this visit. Either the patient or their legal sales account representative has been informed of the risks and benefits of -- and alternatives to -- treatment through a remote evaluation and consents to proceed with the evaluation remotely. Reason for Visit: Outpatient follow-up and safety monitoring of previously prescribed psychiatric medication, psychotherapy or other treatment CC: medication management for depression and anxiety HPI: Fernanda returns for a medication management follow-up appointment. She reports since last appointment she has noticed more anxiety. Over the past month, she has noted she is stressing about everything and is more irritable. She has noted more road rage lately. She denies any suicidal thoughts. She states usually after a verbal argument with her daughter, she will have passive thoughts of not wanting to be here anymore. She is having some racing thoughts and can cause poor focus/concentration. She is averaging 7-9 hours per night,but doesn't always wake up feeling rested; sleep has been interrupted related to neck pain. Risks and benefits of the medication, including any black box warnings, were discussed with the patient. Fernanda verbalized understanding to all instructions and is in agreement with the treatment plan; confirmed that she would get to ER if needed for increase symptoms or safety concerns. Interval Progress: Worse PATIENT DATA: PROMIS [employer] 04/29/2023 12/15/2023 07/21/2024 PROMIS Global Health - (T-Scores - the mean of general population = 50. Five points is a clinically meaningful difference.) Physical T-Score 44.9 44.9 39.8 Mental T-Score 41.1 45.8 Generalized Anxiety Disorder Scale (LIZY-7) 04/29/2023 08/30/2024 10/11/2024 LIZY - 7 SCORES Score 9 5 18 (0-4) minimal anxiety, (5-9) mild anxiety, (10-14) moderate anxiety, (15-21) severe anxiety Patient Health Questionnaire (PHQ-9) 02/01/2024 08/30/2024 10/11/2024 PHQ-9 Score 5 4 10 (0-4) minimal depression, (5-9) mild depression, (10-14) moderate depression, (15-19) moderately severe depression, (20-27) severe depression PAST MEDICAL HISTORY Diagnosis Date Delayed emergence from general anesthesia Fibromyalgia 08/20/2016 GERD (gastroesophageal reflux disease) 03/12/2009 Hiatal hernia Hypoglycemia, unspecified Mental disorder anxiety and depression Migraine without aura 2001 Morbid obesity (HCC) Normal cardiac stress test 01/23/2012 PONV (postoperative nausea and vomiting) Sleep apnea Snoring Unspecified prophylactic or treatment measure PAST SURGICAL HISTORY Procedure Laterality Date COLONOSCOPY BX SINGLE/MULTI 02/04/2024 COLONOSCOPY W/BIOPSY SINGLE/MULTIPLE 12/14/2018 EGD 01/31/2020 ESOPHAGOGASTRODUODENOSCOPY TRANSORAL DIAGNOSTIC 04/11/2005 EGD ESOPHAGOGASTRODUODENOSCOPY TRANSORAL DIAGNOSTIC 03/06/2017 EGD GASTRIC BYPASS, TATI-EN-Y 11/08/2020 w/ Lap hiatal hernia repair LAP REPAIR, PARAESOPHAGEAL HIATAL HERNIA 11/08/2020 LAPAROSCOPY SURG CHOLECYSTECTOMY 03/21/2016 REDUCTION OF LARGE BREAST 2014 TONSILLECTOMY AND ADENOIDECTOMY AGE 11/> 2002 DR. EASTMAN Current Outpatient Medications Medication Sig Dispense Refill DULoxetine (CYMBALTA) 30 mg capsule Take 1 capsule by mouth once daily. 90 capsule 0 clonazePAM (KLONOPIN) 0.5 mg tablet can take Klonopin 0.5mg 1/2 tablet daily for anxiety attacks as needed, use very sparingly, do not mix with alcohol and do not drive after taking Max order is 5 pills or 10 doses per month 5 tablet 0 lamoTRIgine (LAMICTAL) 200 mg tablet TAKE 1 TABLET BY MOUTH EVERYDAY AT BEDTIME 90 tablet 0 baclofen 5 mg tablet gabapentin (NEURONTIN) 100 mg capsule Take 1 capsule by mouth three times a day for 90 days. 90 capsule 2 fluticasone (FLONASE ALLERGY RELIEF) 50 mcg/actuation nasal spray Use 1 Procious in each nostril once daily. 11.1 mL 0 norgestimate 0.25 mg-ethinyl estradiol 35 mcg (TAMARA) 0.25-35 mg-mcg per tablet Take 1 tablet by mouth once daily. Take active pills only. No inactive week. 112 tablet 3 MAGNESIUM GLYCINATE ORAL Take 200 mg by mouth once daily. Multivitamin capsule Take 1 capsule by mouth once daily. BIOTIN, BULK, MISC cholecalciferol, vitamin D3, (VITAMIN D3 ORAL) Take by mouth. ascorbic acid (VITAMIN C ORAL) Take by mouth once daily. No current facility-admini (more content not included)... [facility] 10-05-2024 Discharge summary Note Date/Time October 05, 2024 9:33a m [facility] [address] [place] [address]. [address] [place] [address] / REHABILITATION SERVICES DISCHARGE SUMMARY MR#: [id number] Acct: [id number] Name: FERNANDA HERNANDEZ Rep #: [id number] : 1980 44 From: Roc Grover DPT, OCS, CSCS Referring DrDiamond: FLORES Fuentes Status: REG RCR Insurance: [facility] S[employer] PAY INSURANCE Discharge Summary D/C summary: It has been my pleasure to treat FERNANDA HERNANDEZ referred by FLORES Tee, with the diagnosis of BPPV and Dr. Hummel for neck pain for a total of 13 visit(s). Discharge Date: 10/05/24 Please see the following information for a summary of their discharge status. Subjective Subjective: Dr. Fuentes sent for vertigo and has not had any issues for a long time. Activities are normal with dizzyness. Dr. Hummel sent for neck and it is not improving. Wants MRI. Neck pain is worse up to 8/10 L neck and into L arm and behind ear. Intermittent without reason. Pain goes down L arm. Feels weak. HEP : sometimes does towel rotations. and extension. Bending over to pet dog makes her worse. Dizzyness 100% betteer adn neck was improving but has backslid to no better again. Pain neck stiffness: Pain Intensity (Out of 10): 4 Neck pain: Pain Intensity (Out of 10): 8 Overall Improvement % Improvement: 50 Objective Objective/Function: head movements today without dizziness. neck ROM r rotation 62 and L 72, pain L sidee with R rotation. cervical extension 55 degrees with pain. UE AROM WFL but seems weak in L biceps slightly vs R. Good balance today and walking and transitioning normally. has sharp pains upper neck L side Goals Goal 1:: abolish dizzy feeling for 3 days Goal Progress: Goal Met Goal 2:: FGA score 28/30 Goal Progress: not tested but good karma Goal 3:: Appropriate cervical posture and scapular without cueing Goal Progress: Progressing Goal 4:: I appropriate HEP to minimize future problems Goal Progress: Not Progressing Goal 5:: DHI score 8 or less Goal Progress: Goal Met Goal 6:: Pt feel 95% back to normal Goal Progress: Not Progressing Plan Plan: d/c, pt doing well with dizziness but continues to have neck pain and arm symptoms and is appropriate to return to Dr. Hummel for next medical step. D/C Information d/c sentence: If there are questions or concerns regarding this patient's physical therapy, please feel free to call me at [phone]. Thank you for the referral of thispatient. Sincerely, Roc Grover DPT, CHRISTIANO, EVELYNE Balance/Gait/Functional tests Balance/Special Test Scores Functional Gait Assessment Score: 22 % Disability: 26.6700 CATSIB Score (Max score 120 seconds): 90 Dizziness Score: 4 Improvement % Improvement: 50 <Electronically signed by CHRISTIANO Diamond DPT, CSCS> 10/05/24 0933 CC: FLORES Fuentes ~ EBG Signed [facility] Work Phone: [phone]) 725-264205-14-2025 Discharge summary [facility] [address] [place] [address] [address] [place] [address] / REHABILITATION SERVICES DISCHARGE SUMMARY MR#: [id number] Acct: [id number] Name: FERNANDA HERNANDEZ Rep #: [id number] : 1980 44 From: CHRISTIANO Diamond DPT, EVELYNE Referring Dr.: FLORES Fuentes Status: REG R Insurance: [facility] SELF PAY INSURANCE Discharge Summary D/C summary: It has been my pleasure to treat FERNANDA HERNNADEZ referred by FLORES Tee, with the diagnosis of BPPV and Dr. Hummel for neck pain for a total of 13 visit(s). Discharge Date: 10/05/24 Please see the following information for a summary of their discharge status. Subjective Subjective: Dr. Fuentes sent for vertigo and has not had any issues for a long time. Activities are normal with dizzyness. Dr. Hummel sent for neck and it is not improving. Wants MRI. Neck pain is worse up to 8/10 L neck and into L arm and behind ear. Intermittent without reason. Pain goes down L arm. Feels weak. HEP : sometimes does towel rotations. and extension. Bending over to pet dog makes her worse. Dizzyness 100% veronica ernandez neck was improving but has backslid to no better again. Pain neck stiffness: Pain Intensity (Out of 10): 4 Neck pain: Pain Intensity (Out of 10): 8 Overall Improvement % Improvement: 50 Objective Objective/Function: head movements today without dizziness. neck ROM r rotation 62 and L 72, pain L sidee with R rotation. cervical extension 55 degrees with pain. UE AROM WFL but seems weak in L biceps slightly vs R. Good balance today and walking and transitioning normally. has sharp pains upper neck L side Goals Goal 1:: abolish dizzy feeling for 3 days Goal Progress: Goal Met Goal 2:: FGA score 28/30 Goal Progress: not tested but good karma Goal 3:: Appropriate cervical posture and scapular without cueing Goal Progress: Progressing Goal 4:: I appropriate HEP to minimize future problems Goal Progress: Not Progressing Goal 5:: DHI score 8 or less Goal Progress: Goal Met Goal 6:: Pt feel 95% back to normal Goal Progress: Not Progressing Plan Plan: d/c, pt doing well with dizziness but continues to have neck pain and arm symptoms and is appropriate to return to Dr. Hummel for next medical step. D/C Information d/c sentence: If there are questions or concerns regarding this patient's physical therapy, please feel free to call me at [phone]. Thank you for the referral of thispatient. Sincerely, Roc Grover, DPT, OCS, CSCS Balance/Gait/Functional tests Balance/Special Test Scores Functional Gait Assessment Score: 22 % Disability: 26.6700 CATSIB Score (Max score 120 seconds): 90 Dizziness Score: 4 Improvement % Improvement: 50 10/05/24 0933 CC: FLORES Fuentes ~ EBG Signed [facility]04-08-2025 Telephone encounter Note* Telephone Encounter - Ellie Kwong LPN - 08/30/2024 1:57 PM EDT Spoke with the patient confirming today's virtual visit at 2:00 PM. Ellie Kwong LPN [facility]04-08-2025 Miscellaneous Notes* Telephone Encounter - Ellie Kwong LPN - 08/30/2024 1:57 PM EDT Spoke with the patient confirming today's virtual visit at 2:00 PM. Ellie Kwong LPN [facility] note* Diagnosis Onset Date Resolution Status Admit Date Osteoarthritis of left knee acute August 30, 2024 9:24am Osteoarthritis of left knee acute September 06, 2024 9:09am Osteoarthritis of left knee acute September 13, 2024 9:00am [facility] Work Phone: [phone] Evaluation note* Diagnosis Onset Date Resolution Status Admit Date Osteoarthritis of left knee acute August 30, 2024 9:24am Osteoarthritis of left knee acute September 06, 2024 9:09am Osteoarthritis of left knee acute September 13, 2024 9:00am Osteoarthritis of left knee acute October 31, 2024 12:54pm [facility] Work Phone: [phone] NoteHNO ID: [id number] Author: DAVON DOWNS APRN.[facility] Service: ? Author Type: Nurse Practitioner Type: Progress Notes Filed: 08/30/2024 14:25 Note Text: FOLLOW UP - PSYCHIATRIC PROGRESS NOTE Visit Type:Virtual Visit utilizing two-way audio and video for at least a portion of the visit. Consent for virtual visit obtained verbally. Confidentiality limitations with virtual visits reviewed with the patient and guardian, if present, who have accepted the risk verbally prior to proceeding with encounter. I have communicated my name and active licensure. The patient's identity and physical location were verified at the time of this visit. Either the patient or their legal sales account representative has been informed of the risks and benefits of -- and alternatives to -- treatment through a remote evaluation and consents to proceed with the evaluation remotely. Reason for Visit: Outpatient follow-up and safety monitoring of previously prescribed psychiatric medication, psychotherapy or other treatment CC: medication management for depression and anxiety HPI: Fernanda returns for a medication management follow-up appointment. She reports things are going pretty good. She reports her irritability has improved. She and her daughter are getting along better now. The only issue over the past 2 months, is increased anxiety over adverse situations such as going into a crowd. This past weekend, she was at a food market and it was crowded and she started to feel overwhelmedlike I need to calm down and take deep breaths. No current stressors. She doesn't drink alcohol. Sleep is good; averages about 7 hours per night. She has gained some weight back from bariatric surgery; has lost 100 # total. She denies si/hi. She has been happy with the Cymbalta and Lamictal; takes the Lamictal and Cymbalta daily. We will order #5 Klonopin for panic symptoms when in large crowds. Risks and benefits of the medication, including any black box warnings, were discussed with the patient. Fernanda verbalized understanding to all instructions and is in agreement with the treatment plan. Interval Progress: Slightly worse anxiety attacks PATIENT DATA: PROMIS [employer] 04/29/2023 12/15/2023 07/21/2024 PROMIS Global Health - (T-Scores - the mean of general population = 50. Five points is a clinically meaningful difference.) Physical T-Score 44.9 44.9 39.8 Mental T-Score 41.1 45.8 Generalized Anxiety Disorder Scale (LIZY-7) 09/17/2022 04/29/2023 08/30/2024 LIZY - 7 SCORES Score 2 9 5 (0-4) minimal anxiety, (5-9) mild anxiety, (10-14) moderate anxiety, (15-21) severe anxiety Patient Health Questionnaire (PHQ-9) 04/29/2023 02/01/2024 08/30/2024 PHQ-9 Score 12 5 4 (0-4) minimal depression, (5-9) mild depression, (10-14) moderate depression, (15-19) moderately severe depression, (20-27) severe depression PAST MEDICAL HISTORY Diagnosis Date Delayed emergence from general anesthesia Fibromyalgia 08/20/2016 GERD (gastroesophageal reflux disease) 03/12/2009 Hiatal hernia Hypoglycemia, unspecified Mental disorder anxiety and depression Migraine without aura 2001 Morbid obesity (HCC) Normal cardiac stress test 01/23/2012 PONV (postoperative nausea and vomiting) Sleep apnea Snoring Unspecified prophylactic or treatment measure PAST SURGICAL HISTORY Procedure Laterality Date COLONOSCOPY BX SINGLE/MULTI 02/04/2024 COLONOSCOPY W/BIOPSY SINGLE/MULTIPLE 12/14/2018 EGD 01/31/2020 ESOPHAGOGASTRODUODENOSCOPY TRANSORAL DIAGNOSTIC 04/11/2005 EGD ESOPHAGOGASTRODUODENOSCOPY TRANSORAL DIAGNOSTIC 03/06/2017 EGD GASTRIC BYPASS, TATI-EN-Y 11/08/2020 w/ Lap hiatal hernia repair LAP REPAIR, PARAESOPHAGEAL HIATAL HERNIA 11/08/2020 LAPAROSCOPY SURG CHOLECYSTECTOMY 03/21/2016 REDUCTION OF LARGE BREAST 2014 TONSILLECTOMY AND ADENOIDECTOMY AGE 11/> 2002 DR. EASTMAN Current Outpatient Medications Medication Sig Dispense Refill lamoTRIgine (LAMICTAL) 200 mg tablet TAKE 1 TABLET BY MOUTH EVERYDAY AT BEDTIME 90 tablet 0 meclizine (ANTIVERT) 25 mg tab Take 1 tablet by mouth four times a day as needed (vertigo). 120 tablet 0 ondansetron (ZOFRAN) 4 mg tablet Take 1 tablet by mouth every 8 hours as needed for nausea/vomiting. 60 tablet 0 baclofen 5 mg tablet gabapentin (NEURONTIN) 100 mg capsule Take 1 capsule by mouth three times a day for 90 days. 90 capsule 2 fluticasone (FLONASE ALLERGY RELIEF) 50 mcg/actuation nasal spray Use 1 Procious in each nostril once daily. 11.1 mL 0 DULoxetine (CYMBALTA) 30 mg capsule Take 1 capsule by mouth once daily. 90 capsule 0 norgestimate 0.25 mg-ethinyl estradiol 35 mcg (TAMARA) 0.25-35 mg-mcg per tablet Take 1 tablet by mouth once daily. Take active pills only. No inactive week. 112 tablet 3 MAGNESIUM GLYCINATE ORAL Take 200 mg by mouth once daily. Multivitamin capsule Take 1 capsule by mouth once daily. BIOTIN, BULK, MISC cholecalciferol, vitamin D3, (V (more content not included)...[facility]04-07-2025 History of Present illness Narrative* Davon Downs APRN.[employer]ENCY [employer]NER - 08/29/2024 5:24 PM EDT FOLLOW UP - PSYCHIATRIC PROGRESS NOTE Visit Type:Virtual Visit utilizing two-way audio and video for at least a portion of the visit. Consent for virtual visit obtained verbally. Confidentiality limitations with virtual visits reviewed with the patient and guardian, if present, who have accepted the risk verbally prior to proceeding with encounter. I have communicated my name and active licensure. The patient's identity and physical location were verified at the time of this visit. Either the patient or their legal sales account representative has been informed of the risks and benefits of -- and alternatives to -- treatment through a remote evaluation and consents to proceed with the evaluation remotely. Reason for Visit: Outpatient follow-up and safety monitoring of previously prescribed psychiatric medication, psychotherapy or other treatment CC: medication management for depression and anxiety HPI: Fernanda returns for a medication management follow-up appointment. She reports things are going pretty good. She reports her irritability has improved. She and her daughter are getting along better now. The only issue over the past 2 months, is increased anxiety over adverse situations such as going into a crowd. This past weekend, she was at a food market and it was crowded and she started to feel overwhelmedlike I need to calm down and take deep breaths. No current stressors. She doesn't drink alcohol. Sleep is good; averages about 7 hours per night. She has gained some weight back from bariatric surgery; has lost 100 # total. She denies si/hi. She has been happy with the Cymbalta and Lamictal; takes the Lamictal and Cymbalta daily. We will order #5 Klonopin for panic symptoms when in large crowds. Risks and benefits of the medication, including any black box warnings, were discussed with the patient. Fernanda verbalized understanding to all instructions and is in agreement with the treatment plan. Interval Progress: Slightly worse anxiety attacks PATIENT DATA: PROMIS [employer] 04/29/2023 12/15/2023 07/21/2024 PROMIS [employer] - (T-Scores - the mean of general population = 50. Five points is a clinicallymeaningful difference.) Physical T-Score 44.9 44.9 39.8 Mental T-Score 41.1 45.8 Generalized Anxiety Disorder Scale (LIZY-7) 09/17/2022 04/29/2023 08/30/2024 LIZY - 7 SCORES Score 2 9 5 (0-4) minimal anxiety, (5-9) mild anxiety, (10-14) moderate anxiety, (15-21) severe anxiety Patient Health Questionnaire (PHQ-9) 04/29/2023 02/01/2024 08/30/2024 PHQ-9 Score 12 5 4 (0-4) minimal depression, (5-9) mild depression, (10-14) moderate depression, (15-19) moderately severe depression, (20-27) severe depression PAST MEDICAL HISTORY Diagnosis Date Delayed emergence from general anesthesia Fibromyalgia 08/20/2016 GERD (gastroesophageal reflux disease) 03/12/2009 Hiatal hernia Hypoglycemia, unspecified Mental disorder anxiety and depression Migraine without aura 2001 Morbid obesity (HCC) Normal cardiac stress test 01/23/2012 PONV (postoperative nausea and vomiting) Sleep apnea Snoring Unspecified prophylactic or treatment measure PAST SURGICAL HISTORY Procedure Laterality Date COLONOSCOPY BX SINGLE/MULTI 02/04/2024 COLONOSCOPY W/BIOPSY SINGLE/MULTIPLE 12/14/2018 EGD 01/31/2020 ESOPHAGOGASTRODUODENOSCOPY TRANSORAL DIAGNOSTIC 04/11/2005 EGD ESOPHAGOGASTRODUODENOSCOPY TRANSORAL DIAGNOSTIC 03/06/2017 EGD GASTRIC BYPASS, TATI-EN-Y 11/08/2020 w/ Lap hiatal hernia repair LAP REPAIR, PARAESOPHAGEAL HIATAL HERNIA 11/08/2020 LAPAROSCOPY SURG CHOLECYSTECTOMY 03/21/2016 REDUCTION OF LARGE BREAST 2014 TONSILLECTOMY & ADENOIDECTOMY AGE 11/> 2002 DR. EASTMAN Current Outpatient Medications Medication Sig Dispense Refill lamoTRIgine (LAMICTAL) 200 mg tablet TAKE 1 TABLET BY MOUTH EVERYDAY AT BEDTIME 90 tablet 0 meclizine (ANTIVERT) 25 mg tab Take 1 tablet by mouth four times a day as needed (vertigo). 120 tablet 0 ondansetron (ZOFRAN) 4 mg tablet Take 1 tablet by mouth every 8 hours as needed for nausea/vomiting. 60 tablet 0 baclofen 5 mg tablet gabapentin (NEURONTIN) 100 mg capsule Take 1 capsule by mouth three times a day for 90 days. 90 capsule 2 fluticasone (FLONASE ALLERGY RELIEF) 50 mcg/actuation nasal spray Use 1 Procious in each nostril once daily. 11.1 mL 0 DULoxetine (CYMBALTA) 30 mg capsule Take 1 capsule by mouth once daily. 90 capsule 0 norgestimate 0.25 mg-ethinyl estradiol 35 mcg (TAMARA) 0.25-35 mg-mcg per tablet Take 1 tablet by mouth once daily. Take active pills only. No inactive week. 112 tablet 3 MAGNESIUM GLYCINATE ORAL Take 200 mg by mouth once daily. Multivitamin capsule Take 1 capsule by mouth once daily. BIOTIN, BULK, MISC cholecalciferol, vitamin D3, (VITAMIN D3 ORAL) Take by mouth. ascorbic acid (VITAMIN C ORAL) Take by mouth once daily. No current facility-administered medications for this visit. ROS: GENERAL: Negative for malaise, significant weight loss and fever. HEENT: No changes in hearing or vision, no nose bleeds or other nasal problems. RESPIRATORY: Negative for cough, wheezing and shortness of breath. CARDIOVASCULAR: Negative for chest pain, leg swelling and palpitations. GI: Negative for abdominal discomfort, blood in stools or black stools. : Negative for dysuria, frequency and incontinence. MUSCULOSKELETAL: Negative for joint pain or swelling, back pain, and muscle pain. +chronic neck pain SKIN: Negative for lesions, rash, and itching. HEMATOLOGY/LYMPHOLOGY Negative for prolonged bleeding, bruising easily, and swollen nodes. ENDOCRINE: Negative for cold or heat intolerance, polyuria, polydipsia and goiter. NEURO: Negative for headaches, syncope, seizures and paralysis. PFSH: see hpi VITAL SIGNS: There were no vitals filed for this visit. MENTAL STATUS EXAM: CONSTITUTIONAL: Well groomed ORIENTATION: Person, Place, Time and Situation MEMORY: Recent intact, Remote intact, Immediate intact CONCENTRATION: Normal MOOD: mild anxiety AFFECT: full affect SPEECH : Clear & distinct LANGUAGE : Normal ASSOCIATIONS: Intact THOUGHT PROCESS : Logical, Coherent, and Rational PROGRESSION : There was no evidence of disturbance in thought perception or progression. FUND OF KNOWLEDGE : Appropriate and Adequate SUICIDE: None HOMICIDE: None DATA REVIEWED: Electronic medical record DIAGNOSIS: PRIMARY: Mood Disorder Major Depressive Disorder, Recurrent, moderate Secondary : Anxiety Disorder Anxiety Disorder NOS panic symptoms retirement medication management GAF: 60 -60-51 Moderate symptoms or moderate difficulty in social, occupational or school functioning. TREATMENT PLAN: 1. has lost 100# since bariatric surgery (had lost more,but gained some back) 2. stopped Abilify 2022 on her own 3. continue lamictal 200mg at hs; stop if rash develops,to target depressive symptoms 4. continue Cymbalta 30mg one daily to target depression, anxiety and should help with nerve pain (neck pain)and fibromyalgia pain (Effexor stopped 2022) 5. can take Klonopin 0.5mg 1/2 tablet daily for anxiety attacks as needed, use very sparingly, do not mix with alcohol and do not drive after taking Max order is 5 pills or 10 doses per month has panic symptoms in crowded areas MEDICATION CHANGES: See Treatment Plan Follow Up: 10/11 at 10:30 am I spent a total of 24 minutes on the date of the service which included preparing to see the patient, [id number] patient care, completing clinical documentation, obtaining and/or reviewing separately obtained history, performing a medically appropriate examination, counseling and educating the pat ient/family/caregiver, ordering medications, tests, or procedures, and care coordination (not separately reported). ADD ON PSYCHOTHERAPY CODE : No SIGNATURE: Davon Downs APRN.CNP PATIENT NAME: Fernanda Hernandez DATE: August 30, 2024 TIME: :2:00 PM [facility] Telephone encounter Note * Telephone Encounter - Ellie Kwong LPN - 08/16/2024 9:54 AM EDT Prescription Refill Information The patient has been identified by name and date of : Yes Caregiver verified no other encounters exist for this prescription request: Yes Caregiver confirmed with patient/requestor that no other refills are due, in the near future, with this provider at this time: Yes The last office visit in the department: 02/01/2024 Does the patient have a future office visit with this provider/department: Yes, 08/30/2024 Requested Prescriptions Pending Prescriptions Disp Refills lamoTRIgine (LAMICTAL) 200 mg tablet 90 tablet 0 Sig: Take 1 tablet by mouth daily at bedtime. Ellie Kwong LPN August 16, 2024 10:03 AM [facility]03-[facility] Miscellaneous Notes* Telephone Encounter - Ellie Kwong LPN - 08/16/2024 9:54 AM EDT Prescription Refill Information The patient has been identified by name and date of : Yes Caregiver verified no other encounters exist for this prescription request: Yes Caregiver confirmed with patient/requestor that no other refills are due, in the near future, with this provider at this time: Yes The last office visit in the department: 02/01/2024 Does the patient have a future office visit with this provider/department: Yes, 08/30/2024 Requested Prescriptions Pending Prescriptions Disp Refills lamoTRIgine (LAMICTAL) 200 mg tablet 90 tablet 0 Sig: Take 1 tablet by mouth daily at bedtime. Ellie Kwong LPN August 16, 2024 10:03 AM documented in [facility] encounterMer[facility]03-[facility] Telephone encounter Note * Telephone Encounter - Ellie Kwong LPN - 08/15/2024 10:13 AM EDT Prescription Refill Information The patient has been identified by name and date of : Yes Caregiver verified no other encounters exist for this prescription request: Yes Caregiver confirmed with patient/requestor that no other refills are due, in the near future, with this provider at this time: Yes The last office visit in the department: 02/01/2024 Does the patient have a future office visit with this provider/department: No Requested Prescriptions Refused Prescriptions Disp Refills lamoTRIgine (LAMICTAL) 200 mg tablet 90 tablet 0 Sig: Take 1 tablet by mouth daily at bedtime. Ellie Kwong LPN August 15, 2024 10:14 AM [facility]03-24-[facility] Miscellaneous Notes* Telephone Encounter - Ellie Kwong LPN - 08/15/2024 10:13 AM EDT Prescription Refill Information The patient has been identified by name and date of : Yes Caregiver verified no other encounters exist for this prescription request: Yes Caregiver confirmed with patient/requestor that no other refills are due, in the near future, with this provider at this time: Yes The last office visit in the department: 02/01/2024 Does the patient have a future office visit with this provider/department: No Requested Prescriptions Refused Prescriptions Disp Refills lamoTRIgine (LAMICTAL) 200 mg tablet 90 tablet 0 Sig: Take 1 tablet by mouth daily at bedtime. Ellie Kwong LPN August 15, 2024 10:14 AM documented in this encounterMer[facility]03-[facility] Telephone encounter Note * Telephone Encounter - Ellie Kwong LPN - 08/15/2024 9:16 AM EDT Prescription Refill Information The patient has been identified by name and date of : Yes Caregiver verified no other encounters exist for this prescription request: Yes Caregiver confirmed with patient/requestor that no other refills are due, in the near future, with this provider at this time: Yes The last office visit in the department: 02/01/2024 Does the patient have a future office visit with this provider/department: No Requested Prescriptions Pending Prescriptions Disp Refills lamoTRIgine (LAMICTAL) 200 mg tablet [Pharmacy Med Name: LAMOTRIGINE 200 MG TABLET] 90 tablet 0 Sig: TAKE 1 TABLET BY MOUTH EVERYDAY AT BEDTIME Ellie Kwong LPN August 15, 2024 9:16 AM [facility]03-[facility] Miscellaneous Notes* Telephone Encounter - Ellie Kwong LPN - 08/15/2024 9:16 AM EDT Prescription Refill Information The patient has been identified by name and date of : Yes Caregiver verified no other encounters exist for this prescription request: Yes Caregiver confirmed with patient/requestor that no other refills are due, in the near future, with this provider at this time: Yes The last office visit in the department: 02/01/2024 Does the patient have a future office visit with this provider/department: No Requested Prescriptions Pending Prescriptions Disp Refills lamoTRIgine (LAMICTAL) 200 mg tablet [Pharmacy Med Name: LAMOTRIGINE 200 MG TABLET] 90 tablet 0 Sig: TAKE 1 TABLET BY MOUTH EVERYDAY AT BEDTIME Ellie Kwong LPN August 15, 2024 9:16 AM documented in this encounterMer[facility]03-[facility]-2025 History of Present illness Narrative* Ashlee Lee APRN.CNP - 08/10/2024 9:00 AM EDT FOLLOW UP VISIT - SKIN LESION NAME: Fernanda Hernandez [facility] NO.: [id number] DATE OF SERVICE: 08/04/2024 : 1980 Fernanad is a patient I am following for infected sebaceous cyst on her right shoulder. Dr. Calvillo performed an excision of this skin lesion on 08/02/24. She presented on 08/04/24 for concerns of residual cyst. I was able to remove some more cyst at that visit. Today she presents for wound check. She notes no s/s of infection. She denies any drainage or pain. VITALS: Temp: 36.6 C (97.8 F) Temp src: Temporal On examination, the incision is very minimally open with good granulation tissue, no evidence of residual cyst, area surrounding the wound has no signs of infection. Assessment IMPRESSION: Status post excision of right shoulder cyst PLAN: If the patient notes any problems or signs of wound infections, the patient should contact me immediately. Return to the office with any concerns or as needed. Diagnoses: (L72.3, L08.9) Infected sebaceous cyst (primary encounter diagnosis) Ashlee Lee APRN.RACHID documented in this encounterMer[facility]03-[facility]-2025 NoteHNO ID: [id number] Author: ASHLEE LEE APRN.CNP Service: ? Author Type: Nurse Practitioner Type: Progress Notes Filed: 08/10/2024 09:33 Note Text: FOLLOW UP VISIT - SKIN LESION NAME: Fernanda Rosales [facility] NO.: [id number] DATE OF SERVICE: 08/04/2024 : 1980 Fernanda is a patient I am following for infected sebaceous cyst on her right shoulder. Dr. Calvillo performed an excision of this skin lesion on 08/02/24. She presented on 08/04/24 for concerns of residual cyst. I was able to remove some more cyst at that visit. Today she presents for wound check. She notes no s/s of infection. She denies any drainage or pain. VITALS: Temp: 36.6 ?C (97.8 ?F) Temp src: Temporal On examination, the incision is very minimally open with good granulation tissue, no evidence of residual cyst, area surrounding the wound has no signs of infection. Assessment IMPRESSION: Status post excision of right shoulder cyst PLAN: If the patient notes any problems or signs of wound infections, the patient should contact me immediately. Return to the office with any concerns or as needed. Diagnoses: (L72.3, L08.9) Infected sebaceous cyst (primary encounter diagnosis) Ashlee Lee APRN.CNPUk [facility]03-18-2025 Telephone encounter Note* Telephone Encounter - Sophia Greco RN - 08/09/2024 8:44 AM EDT [facility] with [facility] [email or web address] calls to report that patient is scheduled for therapy session tonight for vestibular therapy and asking for PT order to be faxed to them. Faxed PT order from yesterday to [phone] per request. Sophia Greco RN [facility]03-18-2025 Miscellaneous Notes* Telephone Encounter - Sophia Greco RN - 08/09/2024 8:44 AM EDT [facility] PT with [facility] [email or web address] calls to report that patient is scheduled for therapy session tonight for vestibular therapy and asking for PT order to be faxed to them. Faxed PT order from yesterday to [phone] per request. Sophia Greco RN documented in this encounterMer[facility]03-17-2025 Instructions* Patient Instructions* Bettina Fuentes APRN.CNP - 08/08/2024 10:39 AM EDT 1) Consult physical therapy for vestibular therapy 2) Ondansetron 4 mg up to every 8 hours 3) Meclizine 25 mg 4 x day 4) Keep follow up in October documented in this encounterMer[facility]03-17-2025 NoteHNO ID: [id number] Author: BETTINA FUENTES APRN.CNP Service: ? Author Type: Nurse Practitioner Type: Progress Notes Filed: 08/08/2024 10:40 Note Text: This is a 44 year old female who presents today with: Patient presents with: Dizziness: 2 episodes within the last week HISTORY OF PRESENT ILLNESS: Fernanda Hernandez is a 44 year old female. Patient presents with: Dizziness: 2 episodes within the last week Dizziness with moving head, going down stairs, going from sitting to standing, even sitting still in chair. Dizzy since sickness 2 weeks intermittently Neck pain since sick Nausea- unsure if from dizziness or neck pain Had 2 massages Had cyst removed PAST MEDICAL HISTORY: PAST MEDICAL HISTORY Diagnosis Date Delayed emergence from general anesthesia Fibromyalgia 08/20/2016 GERD (gastroesophageal reflux disease) 03/12/2009 Hiatal hernia Hypoglycemia, unspecified Mental disorder anxiety and depression Migraine without aura 2001 Morbid obesity (HCC) Normal cardiac stress test 01/23/2012 PONV (postoperative nausea and vomiting) Sleep apnea Snoring Unspecified prophylactic or treatment measure PAST SURGICAL HISTORY Procedure Laterality Date COLONOSCOPY BX SINGLE/MULTI 02/04/2024 COLONOSCOPY W/BIOPSY SINGLE/MULTIPLE 12/14/2018 EGD 01/31/2020 ESOPHAGOGASTRODUODENOSCOPY TRANSORAL DIAGNOSTIC 04/11/2005 EGD ESOPHAGOGASTRODUODENOSCOPY TRANSORAL DIAGNOSTIC 03/06/2017 EGD GASTRIC BYPASS, TATI-EN-Y 11/08/2020 w/ Lap hiatal hernia repair LAP REPAIR, PARAESOPHAGEAL HIATAL HERNIA 11/08/2020 LAPAROSCOPY SURG CHOLECYSTECTOMY 03/21/2016 REDUCTION OF LARGE BREAST 2014 TONSILLECTOMY AND ADENOIDECTOMY AGE 11/> 2002 DR. EASTMAN ALLERGIES Aciphex [Rabeprazole Sodium], Entex Pse [Pseudoephedrine-Guaifenesin], Nexium [Esomeprazole Magnesium], Prevacid [Lansoprazole], Prilosec [Omeprazole], Sulfa (Sulfonamide Antibiotics), and Wellbutrin [Bupropion Hcl] MEDICATIONS Current Outpatient Medications Medication Sig baclofen 5 mg tablet meclizine (ANTIVERT) 25 mg tab Take 1 tablet by mouth three times a day as needed (vertigo). gabapentin (NEURONTIN) 100 mg capsule Take 1 capsule by mouth three times a day for 90 days. fluticasone (FLONASE ALLERGY RELIEF) 50 mcg/actuation nasal spray Use 1 Procious in each nostril once daily. Promethazine-DM (PHENERGAN-DM) 6.25-15 mg/5 mL syrup Take 5 mL by mouth four times a day as needed (FOR POST NASAL DRIP AND COUGH). DULoxetine (CYMBALTA) 30 mg capsule Take 1 capsule by mouth once daily. lamoTRIgine (LAMICTAL) 200 mg tablet Take 1 tablet by mouth daily at bedtime. norgestimate 0.25 mg-ethinyl estradiol 35 mcg (TAMARA) 0.25-35 mg-mcg per tablet Take 1 tablet by mouth once daily. Take active pills only. No inactive week. MAGNESIUM GLYCINATE ORAL Take 200 mg by mouth once daily. Multivitamin capsule Take 1 capsule by mouth once daily. BIOTIN, BULK, MISC cholecalciferol, vitamin D3, (VITAMIN D3 ORAL) Take by mouth. ascorbic acid (VITAMIN C ORAL) Take by mouth once daily. tiZANidine (ZANAFLEX) 4 mg tablet Take 1 tablet by mouth two times a day as needed. No current facility-administered medications for this visit. FAMILY HISTORY Problem Relation Age of Onset Arthritis Mother Diabetes Mother Headache Father Lipids Father Headache Sister Diabetes Maternal Grandfather Stroke Maternal Grandfather Alcohol/Drug Paternal Grandmother ETOH Alcohol/Drug Paternal Grandfather ETOH Cancer Paternal Grandfather LUNG Alcohol/Drug Paternal Aunt ETOH Alcohol/Drug Paternal Uncle ETOH Cancer Paternal Uncle LUNG Social History Tobacco Use Smoking status: Former Current packs/day: 0.00 Average packs/day: 0.5 packs/day for 12.0 years (6.0 ttl pk-yrs) Types: Cigarettes Start date: 07/22/2001 Quit date: 07/22/2013 Years since quittin.0 Smokeless tobacco: Never Vaping Use Vaping status: Never Used Substance Use Topics Alcohol use: Not Currently Comment: Rarely Drug use: No BP sitting 136/80, standing 110/80 EXAM: BP 130/78 Pulse 77 Temp 36.4 ?C (97.6 ?F) (Left Tympanic) Wt 109.3 kg (241 lb) LMP 08/28/2020 (Approximate) SpO2 100% BMI 44.08 kg/m? PHYSICAL EXAM: Physical Exam Vitals reviewed. Constitutional: Appearance: Normal appearance. HENT: Head: Normocephalic. Right Ear: Tympanic membrane, ear canal and external ear normal. There is no impacted cerumen. Left Ear: Tympanic membrane, ear canal and external ear normal. There is no impacted cerumen. Nose: No congestion or rhinorrhea. Mouth/Throat: Pharynx: No oropharyngeal exudate or posterior oropharyngeal erythema. Eyes: Pupils: Pupils are equal, round, and reactive to light. Cardiovascular: Rate and Rhythm: Normal rate and regular rhythm. Pulses: Normal pulses. Heart sounds: Normal heart sounds. Pulmonary: Effort: Pulmonary effort is normal. Breath sounds: Normal breath sounds. Musculoskel (more content not included)...[facility]03-17-2025 History of Present illness Narrative* Bettina Fuentes APRN.AGENCY OWNER - 08/08/2024 10:24 AM EDT This is a 44 year old female who presents today with: Patient presents with: Dizziness: 2 episodes within the last week HISTORY OF PRESENT ILLNESS: Fernanda Hernandez is a 44 year old female. Patient presents with: Dizziness: 2 episodes within the last week Dizziness with moving head, going down stairs, going from sitting to standing, even sitting still in chair. Dizzy since sickness 2 weeks intermittently Neck pain since sick Nausea- unsure if from dizziness or neck pain Had 2 massages Had cyst removed PAST MEDICAL HISTORY: PAST MEDICAL HISTORY Diagnosis Date Delayed emergence from general anesthesia Fibromyalgia 08/20/2016 GERD (gastroesophageal reflux disease) 03/12/2009 Hiatal hernia Hypoglycemia, unspecified Mental disorder anxiety and depression Migraine without aura 2001 Morbid obesity (HCC) Normal cardiac stress test 01/23/2012 PONV (postoperative nausea and vomiting) Sleep apnea Snoring Unspecified prophylactic or treatment measure PAST SURGICAL HISTORY Procedure Laterality Date COLONOSCOPY BX SINGLE/MULTI 02/04/2024 COLONOSCOPY W/BIOPSY SINGLE/MULTIPLE 12/14/2018 EGD 01/31/2020 ESOPHAGOGASTRODUODENOSCOPY TRANSORAL DIAGNOSTIC 04/11/2005 EGD ESOPHAGOGASTRODUODENOSCOPY TRANSORAL DIAGNOSTIC 03/06/2017 EGD GASTRIC BYPASS, TATI-EN-Y 11/08/2020 w/ Lap hiatal hernia repair LAP REPAIR, PARAESOPHAGEAL HIATAL HERNIA 11/08/2020 LAPAROSCOPY SURG CHOLECYSTECTOMY 03/21/2016 REDUCTION OF LARGE BREAST 2014 TONSILLECTOMY & ADENOIDECTOMY AGE 11/> 2002 DR. EASTMAN ALLERGIES Aciphex [Rabeprazole Sodium], Entex Pse [Pseudoephedrine-Guaifenesin], Nexium [Esomeprazole Magnesium], Prevacid [Lansoprazole], Prilosec [Omeprazole], Sulfa (Sulfonamide Antibiotics), and Wellbutrin [Bupropion Hcl] MEDICATIONS Current Outpatient Medications Medication Sig baclofen 5 mg tablet meclizine (ANTIVERT) 25 mg tab Take 1 tablet by mouth three times a day as needed (vertigo). gabapentin (NEURONTIN) 100 mg capsule Take 1 capsule by mouth three times a day for 90 days. fluticasone (FLONASE ALLERGY RELIEF) 50 mcg/actuation nasal spray Use 1 Procious in each nostril once daily. Promethazine-DM (PHENERGAN-DM) 6.25-15 mg/5 mL syrup Take 5 mL by mouth four times a day as needed (FOR POST NASAL DRIP AND COUGH). DULoxetine (CYMBALTA) 30 mg capsule Take 1 capsule by mouth once daily. lamoTRIgine (LAMICTAL) 200 mg tablet Take 1 tablet by mouth daily at bedtime. norgestimate 0.25 mg-ethinyl estradiol 35 mcg (TAMARA) 0.25-35 mg-mcg per tablet Take 1 tablet by mouth once daily. Take active pills only. No inactive week. MAGNESIUM GLYCINATE ORAL Take 200 mg by mouth once daily. Multivitamin capsule Take 1 capsule by mouth once daily. BIOTIN, BULK, MISC cholecalciferol, vitamin D3, (VITAMIN D3 ORAL) Take by mouth. ascorbic acid (VITAMIN C ORAL) Take by mouth once daily. tiZANidine (ZANAFLEX) 4 mg tablet Take 1 tablet by mouth two times a day as needed. No current facility-administered medications for this visit. FAMILY HISTORY Problem Relation Age of Onset Arthritis Mother Diabetes Mother Headache Father Lipids Father Headache Sister Diabetes Maternal Grandfather Stroke Maternal Grandfather Alcohol/Drug Paternal Grandmother ETOH Alcohol/Drug Paternal Grandfather ETOH Cancer Paternal Grandfather LUNG Alcohol/Drug Paternal Aunt ETOH Alcohol/Drug Paternal Uncle ETOH Cancer Paternal Uncle LUNG Social History Tobacco Use Smoking status: Former Current packs/day: 0.00 Average packs/day: 0.5 packs/day for 12.0 years (6.0 ttl pk-yrs) Types: Cigarettes Start date: 07/22/2001 Quit date: 07/22/2013 Years since quittin.0 Smokeless tobacco: Never Vaping Use Vaping status: Never Used Substance Use Topics Alcohol use: Not Currently Comment: Rarely Drug use: No BP sitting 136/80, standing 110/80 EXAM: BP 130/78 Pulse 77 Temp 36.4 C (97.6 F) (Left Tympanic) Wt 109.3 kg (241 lb) LMP 08/28/2020(Approximate) SpO2 100% BMI 44.08 kg/m PHYSICAL EXAM: Physical Exam Vitals reviewed. Constitutional: Appearance: Normal appearance. HENT: Head: Normocephalic. Right Ear: Tympanic membrane, ear canal and external ear normal. There is no impacted cerumen. Left Ear: Tympanic membrane, ear canal and external ear normal. There is no impacted cerumen. Nose: No congestion or rhinorrhea. Mouth/Throat: Pharynx: No oropharyngeal exudate or posterior oropharyngeal erythema. Eyes: Pupils: Pupils are equal, round, and reactive to light. Cardiovascular: Rate and Rhythm: Normal rate and regular rhythm. Pulses: Normal pulses. Heart sounds: Normal heart sounds. Pulmonary: Effort: Pulmonary effort is normal. Breath sounds: Normal breath sounds. Musculoskeletal: General: Normal range of motion. Comments: Moves all ext. Without difficulty, walks w/o assistive device Skin: General: Skin is warm and dry. Neurological: Mental Status: She is alert and oriented to person, place, and time. Comments: Cranial nerves III-XII intact, no [id number]-hk-saxc ataxia Some nystagmus with looking forward, none noted on lateral gazes but did make her dizzy Psychiatric: Mood and Affect: Mood normal. Behavior: Behavior normal. LABS: ASSESSMENT/PLAN: 1. BPPV (benign paroxysmal positional vertigo), unspecified laterality - ICD9: 386.11, ICD10: H81.10 (primary diagnosis) Cranial nerves ok- some nystagmus - CONSULT TO PHYSICAL THERAPY for vestibular - ONDANSETRON HCL 4 MG TABLET as needed 2. Orthostasis - ICD9: 458.0, ICD10: I95.1 Encouraged fluids with electrolytes Discussed treatment plan and patient voices understanding. Patient's questions answered appropriately. Medications and potential side effects were discussed and patient voices understanding. Return to the office as scheduled or as needed for worsening/no improvement. Bettina Fuentes APRN.RACHID documented in this encounterMer[facility]03-13-2025 NoteHNO ID: [id number] Author: ASHLEE LEE APRN.CNP Service: ? Author Type: Nurse Practitioner Type: Progress Notes Filed: 08/04/2024 14:50 Note Text: FOLLOW UP VISIT - SKIN LESION NAME: Fernanda Hernandez [facility] NO.: [id number] DATE OF SERVICE: 08/04/2024 : 1980 REFERRING PHYSICIAN: Bettina Fuentes APRN.CNP Fernanda is a patient I am following for infected sebaceous cyst on her right shoulder. Dr. Calvillo performed an excision of this skin lesion on 08/02/24. The patient notes today she had a nurse at her work change the dressing and they noted something white in the wound that looked like part of the cyst. She also noted increased pain after showering today. She is currently taking doxycycline- has about 2 days left. VITALS: Temperature 36.9 ?C (98.4 ?F), temperature source Temporal, last menstrual period 08/28/2020. On examination, the incision is opened, area surrounding the wound has no signs of infection, there is a slight red outline from where the previous bandage was. In the wound there is white cyst remnants. There is no swelling, warmth, or discharge/bleeding. I squeezed the rest of the cyst out without problem. I then debrided the wound to check for further cyst pieces. A bandage was placed over the wound. Fernanda tolerated the procedure well. Assessment IMPRESSION: Status post excision of right shoulder cyst PLAN: If the patient notes any problems or signs of wound infections, the patient should contact me immediately. She is already scheduled for a follow up on Thursday. She should continue to change the dressing daily or if it gets saturated. She should also continue the doxy. Diagnoses: (L72.3, L08.9) Infected sebaceous cyst (primary encounter diagnosis) Ashlee Lee APRN.[facility]ID[facility]03-13-[facility] History of Present illness Narrative* Ashlee Lee APRN.AGENCY OWNER - 08/04/2024 2:24 PM EDT FOLLOW UP VISIT - SKIN LESION NAME: Fernanda Hernandez [facility] NO.: [id number] DATE OF SERVICE: 08/04/2024 : 1980 REFERRING PHYSICIAN: Bettina Fuentes APRN.AGENCY OWNER Fernanda is a patient I am following for infected sebaceous cyst on her right shoulder. Dr. Calvillo performed an excision of this skin lesion on 08/02/24. The patient notes today she had a nurse at herwork change the dressing and they noted something white in the wound that looked like part of the cyst. She also noted increased pain after showering today. She is currently taking doxycycline- has about 2 days left. VITALS: Temperature 36.9 C (98.4 F), temperature source Temporal, last menstrual period 08/28/2020. On examination, the incision is opened, area surrounding the wound has no signs of infection, thereis a slight red outline from where the previous bandage was. In the wound there is white cyst remnants. There is no swelling, warmth, or discharge/bleeding. I squeezed the rest of the cyst out without problem. I then debrided the wound to check for furthercyst pieces. A bandage was placed over the wound. Fernanda tolerated the procedure well. Assessment IMPRESSION: Status post excision of right shoulder cyst PLAN: If the patient notes any problems or signs of wound infections, the patient should contact me immediately. She is already scheduled for a follow up on Thursday. She should continue to change the dressing daily or if it gets saturated. She should also continue the doxy. Diagnoses: (L72.3, L08.9) Infected sebaceous cyst (primary encounter diagnosis) Ashlee Lee APRN.AGENCY OWNER documented in this encounterMercy [facility]03-13-2025 Telephone encounter Note * Telephone Encounter - Britany Hudson RN - 08/04/2024 11:19 AM EDT Appointment made for 2 pm in [place] with Destiney Lee APRN AGENCY OWNER. Encounter closed. [facility]03-13[facility] Miscellaneous Notes* Telephone Encounter - Britany Hudson RN - 08/04/2024 11:19 AM EDT Appointment made for 2 pm in [place] with Destiney Lee APRN AGENCY OWNER. Encounter closed. documented in this encounterMercy [facility] Hospital03-13-2025 NoteHNO ID: [id number] Author: ASHISH CALVILLO MD Service: ? Author Type: Physician Type: Progress Notes Filed: 08/04/2024 10:35 Note Text: Preoperative diagnosis: Infected sebaceous cyst of back Postoperative diagnosis: The same Procedure: Incision and drainage of infected sebaceous cyst of back (simple) Surgeon: Magda Procedure: Right upper back was sterilely prepped draped in the usual fashion. 1% lidocaine plain was injected. A 2 cm incision was made purulence was removed I irrigated out the wound removing all the cystic cavity that I could find wick was applied sterile dressings were applied and the patient tolerated the procedure well.[facility]03-13-2025 History of Present illness Narrative* Ashish Calvillo MD - 08/04/2024 10:33 AM EDT Preoperative diagnosis: Infected sebaceous cyst of back Postoperative diagnosis: The same Procedure: Incision and drainage of infected sebaceous cyst of back (simple) Surgeon: Magda Procedure: Right upper back was sterilely prepped draped in the usual fashion. 1% lidocaine plain was injected. A 2 cm incision was made purulence was removed I irrigated out the wound removing all the cystic cavity that I could find wick was applied sterile dressings were applied and the patient tolerated the procedure well. * Danitza Jung RN - 08/02/2024 1:45 PM EDT UNIVERSAL PROTOCOL / SAFETY CHECKLIST Procedure to be Performed: Incision and Drainage of back Abscess. Sign In: A Moment of CARE was completed. Appropriate PPE (Personal Protective Equipment) worn by all providers involved with the procedure. Special equipment not required. Patient/Surrogate Stated/Verified: Patient name, Date of , Relevant allergies, and The intended procedure Time Out: Relevant labs, photos, and/or imaging studies have been reviewed. Intended patient and procedure match the source document(s) (e.g. consent, H&P, associated studies [imaging, pathology]) are not applicable. Consent obtained and matches the intended procedure. Yes. Correct side/site has been marked and visible. Medications required for this procedure are verified. Fire risk assessed and is not applicable. Implants: are not applicable. Sign Out: Specimens are all correctly labeled and sent. All instruments, equipment, possible retained foreign bodies are accounted for. Yes. The post-procedure plan of care has been communicated to the patient or surrogate. documented in this encounterMercy [facility] Hospital03-11-2025 Instructions* Patient Instructions* Danitza Jung RN - 08/02/2024 2:02 PM EDT The following instructions are important for you related to your office visit today with the [facility] General Surgeons. Instructions After I & D Tylenol and Ibuprofen for pain. Take one every 6 hours. You are instructed to remove packing tomorrow and cover with bandage. If the dressing becomes soaked or had significant drainage, the dressing should be changed. If there is minor bleeding from this skin edge, you should hold pressure on the incision. If there is continued bleeding, you should contact our office immediately. Wash the wound with gentle soap and water. Do not scrub You may shower. The wound should not be immersed in a pool, bathtub, or even hot tub. If the wound shows signs of redness, inflammation, or purulent drainage, you should contact our office immediately. If you note any additional difficulties, questions, or concerns, you should contact our office immediately @ [phone] and ask to be transferred to the General Surgery department. documented in this encounterMercy [facility] Hospital03-11-2025 NoteHNO ID: [id number] Author: DANITZA JUNG RN Service: ? Author Type: Registered Nurse Type: Progress Notes Filed: 08/02/2024 13:49 Note Text: UNIVERSAL PROTOCOL / SAFETY CHECKLIST Procedure to be Performed: Incision and Drainage of back Abscess. Sign In: A Moment of CARE was completed. Appropriate PPE (Personal Protective Equipment) worn by all providers involved with the procedure. Special equipment not required. Patient/Surrogate Stated/Verified: Patient name, Date of , Relevant allergies, and The intended procedure Time Out: Relevant labs, photos, and/or imaging studies have been reviewed. Intended patient and procedure match the source document(s) (e.g. consent, HANDP, associated studies [imaging, pathology]) are not applicable. Consent obtained and matches the intended procedure. Yes. Correct side/site has been marked and visible. Medications required for this procedure are verified. Fire risk assessed and is not applicable. Implants: are not applicable. Sign Out: Specimens are all correctly labeled and sent. All instruments, equipment, possible retained foreign bodies are accounted for. Yes. The post-procedure plan of care has been communicated to the patient or surrogate.[facility]03-10-2025 Instructions* Patient Instructions* Bettina Fuentes APRN.CNP - 08/01/2024 3:19 PM EDT - CONSULT TO GENERAL SURGERY - Continue doxycyline documented in this encounterMercy [facility] Hospital03-10-2025 NoteHNO ID: [id number] Author: BETTINA FUENTES APRN.CNP Service: ? Author Type: Nurse Practitioner Type: Progress Notes Filed: 08/01/2024 15:19 Note Text: This is a 44 year old female who presents today with: Patient presents with: Derm Problem: cyst HISTORY OF PRESENT ILLNESS: Fernanda Hernandez is a 44 year old female. Patient presents with: Derm Problem: cyst Right lateral upper back with alarge grape sized area of hot, red, painful cyst with no actual head on it. No area of drainage. Taking doxycycline for URI- that is better PAST MEDICAL HISTORY: PAST MEDICAL HISTORY Diagnosis Date Delayed emergence from general anesthesia Fibromyalgia 08/20/2016 GERD (gastroesophageal reflux disease) 03/12/2009 Hiatal hernia Hypoglycemia, unspecified Mental disorder anxiety and depression Migraine without aura 2001 Morbid obesity (HCC) Normal cardiac stress test 01/23/2012 PONV (postoperative nausea and vomiting) Sleep apnea Snoring Unspecified prophylactic or treatment measure PAST SURGICAL HISTORY Procedure Laterality Date COLONOSCOPY BX SINGLE/MULTI 02/04/2024 COLONOSCOPY W/BIOPSY SINGLE/MULTIPLE 12/14/2018 EGD 01/31/2020 ESOPHAGOGASTRODUODENOSCOPY TRANSORAL DIAGNOSTIC 04/11/2005 EGD ESOPHAGOGASTRODUODENOSCOPY TRANSORAL DIAGNOSTIC 03/06/2017 EGD GASTRIC BYPASS, TATI-EN-Y 11/08/2020 w/ Lap hiatal hernia repair LAP REPAIR, PARAESOPHAGEAL HIATAL HERNIA 11/08/2020 LAPAROSCOPY SURG CHOLECYSTECTOMY 03/21/2016 REDUCTION OF LARGE BREAST 2014 TONSILLECTOMY AND ADENOIDECTOMY AGE 11/> 2002 DR. EASTMAN ALLERGIES Aciphex [Rabeprazole Sodium], Entex Pse [Pseudoephedrine-Guaifenesin], Nexium [Esomeprazole Magnesium], Prevacid [Lansoprazole], Prilosec [Omeprazole], Sulfa (Sulfonamide Antibiotics), and Wellbutrin [Bupropion Hcl] MEDICATIONS Current Outpatient Medications Medication Sig baclofen 5 mg tablet doxycycline hyclate (VIBRAMYCIN) 100 mg capsule Take 1 capsule by mouth two times a day for 10 days. meclizine (ANTIVERT) 25 mg tab Take 1 tablet by mouth three times a day as needed (vertigo). gabapentin (NEURONTIN) 100 mg capsule Take 1 capsule by mouth three times a day for 90 days. fluticasone (FLONASE ALLERGY RELIEF) 50 mcg/actuation nasal spray Use 1 Procious in each nostril once daily. Promethazine-DM (PHENERGAN-DM) 6.25-15 mg/5 mL syrup Take 5 mL by mouth four times a day as needed (FOR POST NASAL DRIP AND COUGH). tiZANidine (ZANAFLEX) 4 mg tablet Take 1 tablet by mouth two times a day as needed. DULoxetine (CYMBALTA) 30 mg capsule Take 1 capsule by mouth once daily. lamoTRIgine (LAMICTAL) 200 mg tablet Take 1 tablet by mouth daily at bedtime. norgestimate 0.25 mg-ethinyl estradiol 35 mcg (TAMARA) 0.25-35 mg-mcg per tablet Take 1 tablet by mouth once daily. Take active pills only. No inactive week. MAGNESIUM GLYCINATE ORAL Take 200 mg by mouth once daily. Multivitamin capsule Take 1 capsule by mouth once daily. BIOTIN, BULK, MISC cholecalciferol, vitamin D3, (VITAMIN D3 ORAL) Take by mouth. ascorbic acid (VITAMIN C ORAL) Take by mouth. No current facility-administered medications for this visit. FAMILY HISTORY Problem Relation Age of Onset Arthritis Mother Diabetes Mother Headache Father Lipids Father Headache Sister Diabetes Maternal Grandfather Stroke Maternal Grandfather Alcohol/Drug Paternal Grandmother ETOH Alcohol/Drug Paternal Grandfather ETOH Cancer Paternal Grandfather LUNG Alcohol/Drug Paternal Aunt ETOH Alcohol/Drug Paternal Uncle ETOH Cancer Paternal Uncle LUNG Social History Tobacco Use Smoking status: Former Current packs/day: 0.00 Average packs/day: 0.5 packs/day for 12.0 years (6.0 ttl pk-yrs) Types: Cigarettes Start date: 07/22/2001 Quit date: 07/22/2013 Years since quittin.0 Smokeless tobacco: Never Vaping Use Vaping status: Never Used Substance Use Topics Alcohol use: Not Currently Comment: Rarely Drug use: No EXAM: BP 132/88 Pulse 75 Temp 37.1 ?C (98.8 ?F) (Left Tympanic) Wt 110.2 kg (243 lb) LMP 08/28/2020 (Approximate) SpO2 98% BMI 44.45 kg/m? PHYSICAL EXAM: Physical Exam Vitals reviewed. Constitutional: Appearance: Normal appearance. Skin: General: Skin is warm and dry. Comments: Right upper back with large grape sized lesion- protruding. Red, hot to touch, painful Needs IANDD Neurological: Mental Status: She is alert and oriented to person, place, and time. LABS: ASSESSMENT/PLAN: 1. Epidermal inclusion cyst - ICD9: 706.2, ICD10: L72.0 Acute exacerbation- needs IANDD - CONSULT TO GENERAL SURGERY - Continue doxycyline Discussed treatment plan and patient voices understanding. Patient's questions answered appropriately. Medications and potential side effects were discussed and patient voices understanding. Return to the office as scheduled or as needed for worsening/no improvement. Bettina Fuentes APRN.[facility]03-10-2025 History of Present illness Narrative* Bettina Fuentes APRN.AGENCY OWNER - 08/01/2024 3:12 PM EDT This is a 44 year old female who presents today with: Patient presents with: Derm Problem: cyst HISTORY OF PRESENT ILLNESS: Fernanda Hernandez is a 44 year old female. Patient presents with: Derm Problem: cyst Right lateral upper back with alarge grape sized area of hot, red, painful cyst with no actual headon it. No area of drainage. Taking doxycycline for URI- that is better PAST MEDICAL HISTORY: PAST MEDICAL HISTORY Diagnosis Date Delayed emergence from general anesthesia Fibromyalgia 08/20/2016 GERD (gastroesophageal reflux disease) 03/12/2009 Hiatal hernia Hypoglycemia, unspecified Mental disorder anxiety and depression Migraine without aura 2001 Morbid obesity (HCC) Normal cardiac stress test 01/23/2012 PONV (postoperative nausea and vomiting) Sleep apnea Snoring Unspecified prophylactic or treatment measure PAST SURGICAL HISTORY Procedure Laterality Date COLONOSCOPY BX SINGLE/MULTI 02/04/2024 COLONOSCOPY W/BIOPSY SINGLE/MULTIPLE 12/14/2018 EGD 01/31/2020 ESOPHAGOGASTRODUODENOSCOPY TRANSORAL DIAGNOSTIC 04/11/2005 EGD ESOPHAGOGASTRODUODENOSCOPY TRANSORAL DIAGNOSTIC 03/06/2017 EGD GASTRIC BYPASS, TATI-EN-Y 11/08/2020 w/ Lap hiatal hernia repair LAP REPAIR, PARAESOPHAGEAL HIATAL HERNIA 11/08/2020 LAPAROSCOPY SURG CHOLECYSTECTOMY 03/21/2016 REDUCTION OF LARGE BREAST 2014 TONSILLECTOMY & ADENOIDECTOMY AGE 11/> 2002 DR. EASTMAN ALLERGIES Aciphex [Rabeprazole Sodium], Entex Pse [Pseudoephedrine-Guaifenesin], Nexium [Esomeprazole Magnesium], Prevacid [Lansoprazole], Prilosec [Omeprazole], Sulfa (Sulfonamide Antibiotics), and Wellbutrin [Bupropion Hcl] MEDICATIONS Current Outpatient Medications Medication Sig baclofen 5 mg tablet doxycycline hyclate (VIBRAMYCIN) 100 mg capsule Take 1 capsule by mouth two times a day for 10 days. meclizine (ANTIVERT) 25 mg tab Take 1 tablet by mouth three times a day as needed (vertigo). gabapentin (NEURONTIN) 100 mg capsule Take 1 capsule by mouth three times a day for 90 days. fluticasone (FLONASE ALLERGY RELIEF) 50 mcg/actuation nasal spray Use 1 Procious in each nostril once daily. Promethazine-DM (PHENERGAN-DM) 6.25-15 mg/5 mL syrup Take 5 mL by mouth four times a day as needed (FOR POST NASAL DRIP AND COUGH). tiZANidine (ZANAFLEX) 4 mg tablet Take 1 tablet by mouth two times a day as needed. DULoxetine (CYMBALTA) 30 mg capsule Take 1 capsule by mouth once daily. lamoTRIgine (LAMICTAL) 200 mg tablet Take 1 tablet by mouth daily at bedtime. norgestimate 0.25 mg-ethinyl estradiol 35 mcg (TAMARA) 0.25-35 mg-mcg per tablet Take 1 tablet by mouth once daily. Take active pills only. No inactive week. MAGNESIUM GLYCINATE ORAL Take 200 mg by mouth once daily. Multivitamin capsule Take 1 capsule by mouth once daily. BIOTIN, BULK, MISC cholecalciferol, vitamin D3, (VITAMIN D3 ORAL) Take by mouth. ascorbic acid (VITAMIN C ORAL) Take by mouth. No current facility-administered medications for this visit. FAMILY HISTORY Problem Relation Age of Onset Arthritis Mother Diabetes Mother Headache Father Lipids Father Headache Sister Diabetes Maternal Grandfather Stroke Maternal Grandfather Alcohol/Drug Paternal Grandmother ETOH Alcohol/Drug Paternal Grandfather ETOH Cancer Paternal Grandfather LUNG Alcohol/Drug Paternal Aunt ETOH Alcohol/Drug Paternal Uncle ETOH Cancer Paternal Uncle LUNG Social History Tobacco Use Smoking status: Former Current packs/day: 0.00 Average packs/day: 0.5 packs/day for 12.0 years (6.0 ttl pk-yrs) Types: Cigarettes Start date: 07/22/2001 Quit date: 07/22/2013 Years since quittin.0 Smokeless tobacco: Never Vaping Use Vaping status: Never Used Substance Use Topics Alcohol use: Not Currently Comment: Rarely Drug use: No EXAM: BP 132/88 Pulse 75 Temp 37.1 C (98.8 F) (Left Tympanic) Wt 110.2 kg (243 lb) LMP 08/28/2020(Approximate) SpO2 98% BMI 44.45 kg/m PHYSICAL EXAM: Physical Exam Vitals reviewed. Constitutional: Appearance: Normal appearance. Skin: General: Skin is warm and dry. Comments: Right upper back with large grape sized lesion- protruding. Red, hot to touch, painful Needs I&D Neurological: Mental Status: She is alert and oriented to person, place, and time. LABS: ASSESSMENT/PLAN: 1. Epidermal inclusion cyst - ICD9: 706.2, ICD10: L72.0 Acute exacerbation- needs I&D - CONSULT TO GENERAL SURGERY - Continue doxycyline Discussed treatment plan and patient voices understanding. Patient's questions answered appropriately. Medications and potential side effects were discussed and patient voices understanding. Return to the office as scheduled or as needed for worsening/no improvement. Bettina Fuentes APRN.CNP documented in this encounterMercy [facility]03-10-2025 Telephone encounter Note * Telephone Encounter - Mary Austin LPN - 08/01/2024 8:48 AM EDT Called patient back, let her know another antb has been called in. Also explained to her the instructions and let her know options. I informed her that if she decides to continue to come here, the process for cysts and surgery are weeks in which she would have to come. She states she was unaware the longer process. She said she will make some phone calls to possible providers in her area and let us know. Mary Austin LPN [facility]03-10-2025 Miscellaneous Notes* Telephone Encounter - Mary Austin LPN - 08/01/2024 8:48 AM EDT Called patient back, let her know another antb has been called in. Also explained to her the instructions and let her know options. I informed her that if she decides to continue to come here, the process for cysts and surgery are weeks in which she would have to come. She states she was unaware the longer process. She said she will make some phone calls to possible providers in her area and let us know. Mary Austin LPN * Telephone Encounter - Lillie Bautista PA-C - 08/01/2024 8:32 AM EDT If the cyst isn't improved with antibiotics and warm compresses, then she may require I&D. She can re-schedule her appointment or go to a local [facility] care if she is not able to drive here. Recommend taking food with antibiotic which should help with upset stomach. Lillie Bautista PA-C August 01, 2024 8:35 AM * Telephone Encounter - Mary Austin LPN - 08/01/2024 8:20 AM EDT Pt called to cancel her appointment d/t being sick. She did say that the antb did not help at all, still very inflammed. Still using warm compresses. States she does not want to drive all the way here for just a follow up if nothing will be done. Would like possibly drained and/or a different antb.Does say that she had gastric bypass surgery a couple years ago and some antb upset her stomach so is wondering if there is a different one that may not. Pharmacy in chart. Mary Austin LPN documented in this encounterMercy [facility] Hospital03-10-2025 Telephone encounter Note * Telephone Encounter - Lillie Bautista PA-C - 08/01/2024 8:32 AM EDT If the cyst isn't improved with antibiotics and warm compresses, then she may require I&D. She can re-schedule her appointment or go to a local [facility] care if she is not able to drive here. Recommend taking food with antibiotic which should help with upset stomach. Lillie Bautista PA-C August 01, 2024 8:35 AM [facility]03-10-[facility] Telephone encounter Note* Telephone Encounter - Ghazal John MA - 08/01/2024 8:22 AM EDT Form was faxed to number on form. Ghazal John MA August 01, 2024 8:23 AM [facility]03-10-2025 Miscellaneous Notes* Telephone Encounter - Ghazal John MA - 08/01/2024 8:22 AM EDT Form was faxed to number on form. Ghazal John MA August 01, 2024 8:23 AM * Telephone Encounter - Ghazal John MA - 07/29/2024 4:58 PM EST Fax received yesterday. Type of form: FMLA Form received via fax When form is completed, Fax form to [phone] Form has been forwarded to Nurse Practitioner: Anitha John MA documented in this encounterMercy [facility] Hospital03-10-2025 Telephone encounter Note * Telephone Encounter - Mary Austin LPN - 08/01/2024 8:20 AM EDT Pt called to cancel her appointment d/t being sick. She did say that the antb did not help at all, still very inflammed. Still using warm compresses. States she does not want to drive all the way here for just a follow up if nothing will be done. Would like possibly drained and/or a different antb.Does say that she had gastric bypass surgery a couple years ago and some antb upset her stomach so is wondering if there is a different one that may not. Pharmacy in chart. Mary Austin LPN [facility]03-07-2025 Telephone encounter Note* Telephone Encounter - Gahzal John MA - 07/29/2024 4:58 PM EST Fax received yesterday. Type of form: FMLA Form received via fax When form is completed, Fax form to [phone] Form has been forwarded to Nurse Practitioner: Anitha John MA [facility]03-03-2025 Telephone encounter Note* Telephone Encounter - Bettina Fuentes APRN.AGENCY OWNER - 07/25/2024 4:57 PM EST The following approved medication requests have been transmitted electronically. Requested Prescriptions Pending Prescriptions Disp Refills meclizine (ANTIVERT) 25 mg tab 30 tablet 1 Sig: Take 1 tablet by mouth three times a day as needed (vertigo). Bettina Fuentes APRN.CNP [facility]03-03-2025 Miscellaneous Notes* Telephone Encounter - Bettina Fuentes APRN.CNP - 07/25/2024 4:57 PM EST The following approved medication requests have been transmitted electronically. Requested Prescriptions Pending Prescriptions Disp Refills meclizine (ANTIVERT) 25 mg tab 30 tablet 1 Sig: Take 1 tablet by mouth three times a day as needed (vertigo). Bettina Fuentes APRN.CNP * Telephone Encounter - Pramod Curtis LPN - 07/25/2024 1:02 PM EST Prescription Refill Information The patient has been identified by name and date of : Yes Caregiver verified no other encounters exist for this prescription request: Yes Caregiver confirmed with patient/requestor that no other refills are due, in the near future, with this provider at this time: Yes The last office visit in the department: 07/21/24 Does the patient have a future office visit with this provider/department: Yes 11/01/24 Requested Prescriptions Pending Prescriptions Disp Refills meclizine (ANTIVERT) 25 mg tab 30 tablet 1 Sig: Take 1 tablet by mouth three times a day as needed (vertigo). Patient comment: I would like it today as I m having episodes of vertigo and headache lightheaded Pramod Curtis LPN July 25, 2024 1:03 PM [facility] Telephone encounter Note * Telephone Encounter - Pramod Curtis LPN - 07/25/2024 1:02 PM EST Prescription Refill Information The patient has been identified by name and date of : Yes Caregiver verified no other encounters exist for this prescription request: Yes Caregiver confirmed with patient/requestor that no other refills are due, in the near future, with this provider at this time: Yes The last office visit in the department: 07/21/24 Does the patient have a future office visit with this provider/department: Yes 11/01/24 Requested Prescriptions Pending Prescriptions Disp Refills meclizine (ANTIVERT) 25 mg tab 30 tablet 1 Sig: Take 1 tablet by mouth three times a day as needed (vertigo). Patient comment: I would like it today as I m having episodes of vertigo and headache lightheaded Pramod Curtis LPN July 25, 2024 1:03 PM [facility]03-03-2025 History and physical note* Lillie Bautista PA-C - 07/25/2024 11:24 AM EST [facility] Fernanda Hernandez 1980 July 25, 2024 Office visit: Consultation History of Present Illness: Fernanda is a new patient self-referral for cyst of right posterior shoulder. It is been present for several years. A few days ago, a became pink, swollen and painful. Denies drainage. Denies fevers orchills. Denies prior treatment. Denies aggravating or alleviating factors. Denies personal or family history of skin cancer. PAST MEDICAL HISTORY Diagnosis Date Delayed emergence from general anesthesia Fibromyalgia 08/20/2016 GERD (gastroesophageal reflux disease) 03/12/2009 Hiatal hernia Hypoglycemia, unspecified Mental disorder anxiety and depression Migraine without aura 2001 Morbid obesity (HCC) Normal cardiac stress test 01/23/2012 PONV (postoperative nausea and vomiting) Sleep apnea Snoring Unspecified prophylactic or treatment measure PAST SURGICAL HISTORY Procedure Laterality Date COLONOSCOPY BX SINGLE/MULTI 02/04/2024 COLONOSCOPY W/BIOPSY SINGLE/MULTIPLE 12/14/2018 EGD 01/31/2020 ESOPHAGOGASTRODUODENOSCOPY TRANSORAL DIAGNOSTIC 04/11/2005 EGD ESOPHAGOGASTRODUODENOSCOPY TRANSORAL DIAGNOSTIC 03/06/2017 EGD GASTRIC BYPASS, TATI-EN-Y 11/08/2020 w/ Lap hiatal hernia repair LAP REPAIR, PARAESOPHAGEAL HIATAL HERNIA 11/08/2020 LAPAROSCOPY SURG CHOLECYSTECTOMY 03/21/2016 REDUCTION OF LARGE BREAST 2014 TONSILLECTOMY & ADENOIDECTOMY AGE 11/> 2002 DR. EASTMAN FAMILY HISTORY Problem Relation Age of Onset Arthritis Mother Diabetes Mother Headache Father Lipids Father Headache Sister Diabetes Maternal Grandfather Stroke Maternal Grandfather Alcohol/Drug Paternal Grandmother ETOH Alcohol/Drug Paternal Grandfather ETOH Cancer Paternal Grandfather LUNG Alcohol/Drug Paternal Aunt ETOH Alcohol/Drug Paternal Uncle ETOH Cancer Paternal Uncle LUNG Social History Tobacco Use Smoking status: Former Current packs/day: 0.00 Average packs/day: 0.5 packs/day for 12.0 years (6.0 ttl pk-yrs) Types: Cigarettes Start date: 07/22/2001 Quit date: 07/22/2013 Years since quittin.0 Smokeless tobacco: Never Vaping Use Vaping status: Never Used Substance Use Topics Alcohol use: Not Currently Comment: Rarely Drug use: No Review of Systems: GENERAL: Negative for unintentional weight loss, malaise or fevers HEENT: Negative for frequent or significant headaches, No changes in hearing or vision, no nose bleeds or other nasal problems NECK: Negative for lumps, goiter, pain and significant neck swelling RESPIRATORY: Negative for cough, hemoptysis, wheezing, COPD, dyspnea or shortness of breath CARDIOVASCULAR: Negative for chest pain, leg swelling, hypertension, CHF or palpitations GI: Positive for history of GERD. Negative for constipation, nausea, vomiting, or diarrhea MUSCULOSKELETAL: Negative for back or joint pain SKIN: See HPI PSYCH: Negative for sleep disturbance, mood disorder and recent psychosocial stressors ENDOCRINE: Negative for diabetes, polyuria, polydipsia and goiter NEURO: Positive for history of fibromyalgia. No history of headaches, syncope, paralysis, seizures or tremors All other reviewed and negative other than HPI. There are no exam notes on file for this visit. Current Outpatient Medications Medication Sig Dispense Refill baclofen 5 mg tablet doxycycline hyclate (VIBRAMYCIN) 100 mg capsule Take 1 capsule by mouth two times a day for 10 days. 20 capsule 0 gabapentin (NEURONTIN) 100 mg capsule Take 1 capsule by mouth three times a day for 90 days. 90 capsule 2 fluticasone (FLONASE ALLERGY RELIEF) 50 mcg/actuation nasal spray Use 1 Procious in each nostril once daily. 11.1 mL 0 Promethazine-DM (PHENERGAN-DM) 6.25-15 mg/5 mL syrup Take 5 mL by mouth four times a day as needed (FOR POST NASAL DRIP AND COUGH). 180 mL 0 tiZANidine (ZANAFLEX) 4 mg tablet Take 1 tablet by mouth two times a day as needed. 60 tablet 0 DULoxetine (CYMBALTA) 30 mg capsule Take 1 capsule by mouth once daily. 90 capsule 0 lamoTRIgine (LAMICTAL) 200 mg tablet Take 1 tablet by mouth daily at bedtime. 90 tablet 0 norgestimate 0.25 mg-ethinyl estradiol 35 mcg (TAMARA) 0.25-35 mg-mcg per tablet Take 1 tablet by mouth once daily. Take active pills only. No inactive week. 112 tablet 3 MAGNESIUM GLYCINATE ORAL Take 200 mg by mouth once daily. meclizine (ANTIVERT) 25 mg tab Take 1 tablet by mouth three times a day as needed (vertigo). 30 tablet 1 Multivitamin capsule Take 1 capsule by mouth once daily. BIOTIN, BULK, MISC cholecalciferol, vitamin D3, (VITAMIN D3 ORAL) Take by mouth. ascorbic acid (VITAMIN C ORAL) Take by mouth. No current facility-administered medications for this visit. Aciphex [Rabeprazole Sodium], Entex Pse [Pseudoephedrine-Guaifenesin], Nexium [Esomeprazole Magnesium], Prevacid [Lansoprazole], Prilosec [Omeprazole], Sulfa (Sulfonamide Antibiotics), and Wellbutrin[Bupropion Hcl] Physical Exam: Ht 5' 2 (1.58m) Wt 243 lb (110.2kg) LMP 08/28/2020 BMI 44.43 kg/(m^2). General: Well developed, well nourished, in no acute distress Head: Normocephalic, Atraumatic Lungs: Clear bilaterally to auscultation Heart: Normal S1, S2 without murmurs, rubs, gallops or clicks. Skin: 2.5 x 2.5 cm round, firm, nonfixed subcutaneous nodule of right posterior shoulder. Overlyingskin is pink. No fluctuance or induration. No cellulitis. Psych: Alert and cooperative; normal mood and affect; normal attention span and concentration IMPRESSION & RECOMMENDATIONS: Fernanda is a new patient self-referral for cyst of right posterior shoulder. Diagnosis discussed. Itis currently inflamed. I do not think it requires incision and drainage at this time. Will prescribe doxycycline. Recommend applying warm compresses to the area several times per day. We discussed the optimal time to surgically excise a cyst is when it is not inflamed or infected as there is a highlikelihood of recurrence if the entire capsule is not removed. Follow-up in 1 week. She knows to call the office sooner for any worsening symptoms. Signed: Lillie Bautista PA-C [facility]03-03-2025 History and physical note* Lillie Bautista PA-C - 07/25/2024 11:24 AM EST [facility] Fernanda Hernandez 1980 July 25, 2024 Office visit: Consultation History of Present Illness: Fernanda is a new patient self-referral for cyst of right posterior shoulder. It is been present for several years. A few days ago, a became pink, swollen and painful. Denies drainage. Denies fevers orchills. Denies prior treatment. Denies aggravating or alleviating factors. Denies personal or family history of skin cancer. PAST MEDICAL HISTORY Diagnosis Date Delayed emergence from general anesthesia Fibromyalgia 08/20/2016 GERD (gastroesophageal reflux disease) 03/12/2009 Hiatal hernia Hypoglycemia, unspecified Mental disorder anxiety and depression Migraine without aura 2001 Morbid obesity (HCC) Normal cardiac stress test 01/23/2012 PONV (postoperative nausea and vomiting) Sleep apnea Snoring Unspecified prophylactic or treatment measure PAST SURGICAL HISTORY Procedure Laterality Date COLONOSCOPY BX SINGLE/MULTI 02/04/2024 COLONOSCOPY W/BIOPSY SINGLE/MULTIPLE 12/14/2018 EGD 01/31/2020 ESOPHAGOGASTRODUODENOSCOPY TRANSORAL DIAGNOSTIC 04/11/2005 EGD ESOPHAGOGASTRODUODENOSCOPY TRANSORAL DIAGNOSTIC 03/06/2017 EGD GASTRIC BYPASS, TATI-EN-Y 11/08/2020 w/ Lap hiatal hernia repair LAP REPAIR, PARAESOPHAGEAL HIATAL HERNIA 11/08/2020 LAPAROSCOPY SURG CHOLECYSTECTOMY 03/21/2016 REDUCTION OF LARGE BREAST 2014 TONSILLECTOMY & ADENOIDECTOMY AGE 11/> 2002 DR. EASTMAN FAMILY HISTORY Problem Relation Age of Onset Arthritis Mother Diabetes Mother Headache Father Lipids Father Headache Sister Diabetes Maternal Grandfather Stroke Maternal Grandfather Alcohol/Drug Paternal Grandmother ETOH Alcohol/Drug Paternal Grandfather ETOH Cancer Paternal Grandfather LUNG Alcohol/Drug Paternal Aunt ETOH Alcohol/Drug Paternal Uncle ETOH Cancer Paternal Uncle LUNG Social History Tobacco Use Smoking status: Former Current packs/day: 0.00 Average packs/day: 0.5 packs/day for 12.0 years (6.0 ttl pk-yrs) Types: Cigarettes Start date: 07/22/2001 Quit date: 07/22/2013 Years since quittin.0 Smokeless tobacco: Never Vaping Use Vaping status: Never Used Substance Use Topics Alcohol use: Not Currently Comment: Rarely Drug use: No Review of Systems: GENERAL: Negative for unintentional weight loss, malaise or fevers HEENT: Negative for frequent or significant headaches, No changes in hearing or vision, no nose bleeds or other nasal problems NECK: Negative for lumps, goiter, pain and significant neck swelling RESPIRATORY: Negative for cough, hemoptysis, wheezing, COPD, dyspnea or shortness of breath CARDIOVASCULAR: Negative for chest pain, leg swelling, hypertension, CHF or palpitations GI: Positive for history of GERD. Negative for constipation, nausea, vomiting, or diarrhea MUSCULOSKELETAL: Negative for back or joint pain SKIN: See HPI PSYCH: Negative for sleep disturbance, mood disorder and recent psychosocial stressors ENDOCRINE: Negative for diabetes, polyuria, polydipsia and goiter NEURO: Positive for history of fibromyalgia. No history of headaches, syncope, paralysis, seizures or tremors All other reviewed and negative other than HPI. There are no exam notes on file for this visit. Current Outpatient Medications Medication Sig Dispense Refill baclofen 5 mg tablet doxycycline hyclate (VIBRAMYCIN) 100 mg capsule Take 1 capsule by mouth two times a day for 10 days. 20 capsule 0 gabapentin (NEURONTIN) 100 mg capsule Take 1 capsule by mouth three times a day for 90 days. 90 capsule 2 fluticasone (FLONASE ALLERGY RELIEF) 50 mcg/actuation nasal spray Use 1 Procious in each nostril once daily. 11.1 mL 0 Promethazine-DM (PHENERGAN-DM) 6.25-15 mg/5 mL syrup Take 5 mL by mouth four times a day as needed (FOR POST NASAL DRIP AND COUGH). 180 mL 0 tiZANidine (ZANAFLEX) 4 mg tablet Take 1 tablet by mouth two times a day as needed. 60 tablet 0 DULoxetine (CYMBALTA) 30 mg capsule Take 1 capsule by mouth once daily. 90 capsule 0 lamoTRIgine (LAMICTAL) 200 mg tablet Take 1 tablet by mouth daily at bedtime. 90 tablet 0 norgestimate 0.25 mg-ethinyl estradiol 35 mcg (TAMARA) 0.25-35 mg-mcg per tablet Take 1 tablet by mouth once daily. Take active pills only. No inactive week. 112 tablet 3 MAGNESIUM GLYCINATE ORAL Take 200 mg by mouth once daily. meclizine (ANTIVERT) 25 mg tab Take 1 tablet by mouth three times a day as needed (vertigo). 30 tablet 1 Multivitamin capsule Take 1 capsule by mouth once daily. BIOTIN, BULK, MISC cholecalciferol, vitamin D3, (VITAMIN D3 ORAL) Take by mouth. ascorbic acid (VITAMIN C ORAL) Take by mouth. No current facility-administered medications for this visit. Aciphex [Rabeprazole Sodium], Entex Pse [Pseudoephedrine-Guaifenesin], Nexium [Esomeprazole Magnesium], Prevacid [Lansoprazole], Prilosec [Omeprazole], Sulfa (Sulfonamide Antibiotics), and Wellbutrin[Bupropion Hcl] Physical Exam: Ht 5' 2 (1.58m) Wt 243 lb (110.2kg) LMP 08/28/2020 BMI 44.43 kg/(m^2). General: Well developed, well nourished, in no acute distress Head: Normocephalic, Atraumatic Lungs: Clear bilaterally to auscultation Heart: Normal S1, S2 without murmurs, rubs, gallops or clicks. Skin: 2.5 x 2.5 cm round, firm, nonfixed subcutaneous nodule of right posterior shoulder. Overlyingskin is pink. No fluctuance or induration. No cellulitis. Psych: Alert and cooperative; normal mood and affect; normal attention span and concentration IMPRESSION & RECOMMENDATIONS: Fernanda is a new patient self-referral for cyst of right posterior shoulder. Diagnosis discussed. Itis currently inflamed. I do not think it requires incision and drainage at this time. Will prescribe doxycycline. Recommend applying warm compresses to the area several times per day. We discussed the optimal time to surgically excise a cyst is when it is not inflamed or infected as there is a highlikelihood of recurrence if the entire capsule is not removed. Follow-up in 1 week. She knows to call the office sooner for any worsening symptoms. Signed: Lillie Bautista PA-C [facility] Telephone encounter Note * Telephone Encounter - Bettina Fuentes APRN.CNP - 07/21/2024 3:35 PM EST Oh, no! You poor thing. I would think if no fever, Next Thursday with a mask should be ok. Depends on how you feel. [facility]02-27-2025 Miscellaneous Notes* Telephone Encounter - Bettina Fuentes APRN.CNP - 07/21/2024 3:35 PM EST Oh, no! You poor thing. I would think if no fever, Next Thursday with a mask should be ok. Depends on how you feel. * Telephone Encounter - Phyllis Beth MA - 07/21/2024 3:23 PM EST See pt message. Pt seen in office today for visit. Phyllis eBth MA documented in this encounterMer[facility]02-[facility]-2025 Telephone encounter Note * Telephone Encounter - Phyllis Beth MA - 07/21/2024 3:23 PM EST See pt message. Pt seen in office today for visit. Phyllis Beth MA [facility]02-27-2025 Instructions* Patient Instructions* Bettina Fuentes APRN.CNP - 07/21/2024 12:03 PM EST - Follow up in October as scheduled - FLUTICASONE PROPIONATE 50 MCG/ACTUATION NASAL SPRAY,SUSPENSION 2 sprays each nare daily until Sx resolve - PROMETHAZINE-DM 6.25 MG-15 MG/5 ML ORAL SYRUP every 4 hours as needed for cough - TIZANIDINE 4 MG TABLET 2 x day for body aches documented in this encounterMer[facility] Hospital02-27-2025 NoteHNO ID: [id number] Author: BETTINA FUENTES APRN.CNP Service: ? Author Type: Nurse Practitioner Type: Progress Notes Filed: 07/21/2024 12:04 Note Text: This is a 44 year old female who presents today with: Patient presents with: Follow Up: Employer wants FMLA forms filled out. Express care follow up. Still sick, lost taste and smell. Out of work since Thursday. HISTORY OF PRESENT ILLNESS: Fernanda Hernandez is a 44 year old female. Patient presents with: Follow Up: Employer wants FMLA forms filled out. Express care follow up. Still sick, lost taste and smell. Out of work since Thursday. Multiple missed days recently for the last 3 weeks. Wants FMLA papers filled out but employer hasn't given them too her. Wants intermittent leave for illness 06/25/24- neck pain and back pain. One episode of severe headache. Will extend for a year. Started last Thursday with a rash on arms, belly, legs, and chest. Fine red rash. Told it was allergic in nature. Sore throat off and on for a month Body aches. Sinus congestion- some Headache Fever since Thursday night Lost taste and smell Cough- started productive today Chest discomfort One day of diarrhea Poor appetite. PAST MEDICAL HISTORY: PAST MEDICAL HISTORY Diagnosis Date Delayed emergence from general anesthesia Fibromyalgia 08/20/2016 GERD (gastroesophageal reflux disease) 03/12/2009 Hiatal hernia Hypoglycemia, unspecified Mental disorder anxiety and depression Migraine without aura 2001 Morbid obesity (HCC) Normal cardiac stress test 01/23/2012 PONV (postoperative nausea and vomiting) Sleep apnea Snoring Unspecified prophylactic or treatment measure PAST SURGICAL HISTORY Procedure Laterality Date COLONOSCOPY BX SINGLE/MULTI 02/04/2024 COLONOSCOPY W/BIOPSY SINGLE/MULTIPLE 12/14/2018 EGD 01/31/2020 ESOPHAGOGASTRODUODENOSCOPY TRANSORAL DIAGNOSTIC 04/11/2005 EGD ESOPHAGOGASTRODUODENOSCOPY TRANSORAL DIAGNOSTIC 03/06/2017 EGD GASTRIC BYPASS, TATI-EN-Y 11/08/2020 w/ Lap hiatal hernia repair LAP REPAIR, PARAESOPHAGEAL HIATAL HERNIA 11/08/2020 LAPAROSCOPY SURG CHOLECYSTECTOMY 03/21/2016 REDUCTION OF LARGE BREAST 2014 TONSILLECTOMY AND ADENOIDECTOMY AGE 11/> 2002 DR. EASTMAN ALLERGIES Aciphex [Rabeprazole Sodium], Entex Pse [Pseudoephedrine-Guaifenesin], Nexium [Esomeprazole Magnesium], Prevacid [Lansoprazole], Prilosec [Omeprazole], Sulfa (Sulfonamide Antibiotics), and Wellbutrin [Bupropion Hcl] MEDICATIONS Current Outpatient Medications Medication Sig predniSONE (DELTASONE) 10 mg tablet Take 4 tabs daily for 3 days, then 2 tabs daily for 3 days, then 1 tab daily for 3 days with food. DULoxetine (CYMBALTA) 30 mg capsule Take 1 capsule by mouth once daily. lamoTRIgine (LAMICTAL) 200 mg tablet Take 1 tablet by mouth daily at bedtime. norgestimate 0.25 mg-ethinyl estradiol 35 mcg (TAMARA) 0.25-35 mg-mcg per tablet Take 1 tablet by mouth once daily. Take active pills only. No inactive week. MAGNESIUM GLYCINATE ORAL Take 200 mg by mouth once daily. meclizine (ANTIVERT) 25 mg tab Take 1 tablet by mouth three times a day as needed (vertigo). ondansetron orally disintegrating (ZOFRAN ODT) 4 mg disintegrating tablet Take 1 tablet by mouth every 6 hours as needed for nausea/vomiting. (Patient not taking: Reported on 07/16/2024) gabapentin (NEURONTIN) 100 mg capsule Take 1 capsule by mouth three times a day for 90 days. Multivitamin capsule Take 1 capsule by mouth once daily. BIOTIN, BULK, MISC cholecalciferol, vitamin D3, (VITAMIN D3 ORAL) Take by mouth. ascorbic acid (VITAMIN C ORAL) Take by mouth. No current facility-administered medications for this visit. FAMILY HISTORY Problem Relation Age of Onset Arthritis Mother Diabetes Mother Headache Father Lipids Father Headache Sister Diabetes Maternal Grandfather Stroke Maternal Grandfather Alcohol/Drug Paternal Grandmother ETOH Alcohol/Drug Paternal Grandfather ETOH Cancer Paternal Grandfather LUNG Alcohol/Drug Paternal Aunt ETOH Alcohol/Drug Paternal Uncle ETOH Cancer Paternal Uncle LUNG Social History Tobacco Use Smoking status: Former Current packs/day: 0.00 Average packs/day: 0.5 packs/day for 12.0 years (6.0 ttl pk-yrs) Types: Cigarettes Start date: 07/22/2001 Quit date: 07/22/2013 Years since quittin.0 Smokeless tobacco: Never Vaping Use Vaping status: Never Used Substance Use Topics Alcohol use: Not Currently Comment: Rarely Drug use: No EXAM: BP 122/88 Pulse 79 Temp 36.1 ?C (97 ?F) (Left Tympanic) Wt 108.9 kg (240 lb) LMP 08/28/2020 (Approximate) SpO2 99% BMI 43.90 kg/m? PHYSICAL EXAM: Physical Exam Vitals reviewed. Constitutional: Appearance: Normal appearance. HENT: Head: Normocephalic. Right Ear: Ear canal and external ear normal. There is no impacted cerumen. Left Ear: Ear canal and external ear normal. There is no impacted cerumen. Ears: Comments: Bi (more content not included)...[facility]02-27-2025 History of Present illness Narrative* Bettina Fuentes APRN.[facility] - 07/21/2024 11:42 AM EST This is a 44 year old female who presents today with: Patient presents with: Follow Up: Employer wants FMLA forms filled out. Express care follow up. Still sick, lost taste andsmell. Out of work since Thursday. HISTORY OF PRESENT ILLNESS: Fernanda Hernandez is a 44 year old female. Patient presents with: Follow Up: Employer wants FMLA forms filled out. Express care follow up. Still sick, lost taste andsmell. Out of work since Thursday. Multiple missed days recently for the last 3 weeks. Wants FMLA papers filled out but employer hasn't given them too her. Wants intermittent leave for illness 06/25/24- neck pain and back pain. One episode of severe headache. Will extend for a year. Started last Thursday with a rash on arms, belly, legs, and chest. Fine red rash. Told it was allergic in nature. Sore throat off and on for a month Body aches. Sinus congestion- some Headache Fever since Thursday night Lost taste and smell Cough- started productive today Chest discomfort One day of diarrhea Poor appetite. PAST MEDICAL HISTORY: PAST MEDICAL HISTORY Diagnosis Date Delayed emergence from general anesthesia Fibromyalgia 08/20/2016 GERD (gastroesophageal reflux disease) 03/12/2009 Hiatal hernia Hypoglycemia, unspecified Mental disorder anxiety and depression Migraine without aura 2001 Morbid obesity (HCC) Normal cardiac stress test 01/23/2012 PONV (postoperative nausea and vomiting) Sleep apnea Snoring Unspecified prophylactic or treatment measure PAST SURGICAL HISTORY Procedure Laterality Date COLONOSCOPY BX SINGLE/MULTI 02/04/2024 COLONOSCOPY W/BIOPSY SINGLE/MULTIPLE 12/14/2018 EGD 01/31/2020 ESOPHAGOGASTRODUODENOSCOPY TRANSORAL DIAGNOSTIC 04/11/2005 EGD ESOPHAGOGASTRODUODENOSCOPY TRANSORAL DIAGNOSTIC 03/06/2017 EGD GASTRIC BYPASS, TATI-EN-Y 11/08/2020 w/ Lap hiatal hernia repair LAP REPAIR, PARAESOPHAGEAL HIATAL HERNIA 11/08/2020 LAPAROSCOPY SURG CHOLECYSTECTOMY 03/21/2016 REDUCTION OF LARGE BREAST 2014 TONSILLECTOMY & ADENOIDECTOMY AGE 11/> 2002 DR. EASTMAN ALLERGIES Aciphex [Rabeprazole Sodium], Entex Pse [Pseudoephedrine-Guaifenesin], Nexium [Esomeprazole Magnesium], Prevacid [Lansoprazole], Prilosec [Omeprazole], Sulfa (Sulfonamide Antibiotics), and Wellbutrin [Bupropion Hcl] MEDICATIONS Current Outpatient Medications Medication Sig predniSONE (DELTASONE) 10 mg tablet Take 4 tabs daily for 3 days, then 2 tabs daily for 3 days, then 1 tab daily for 3 days with food. DULoxetine (CYMBALTA) 30 mg capsule Take 1 capsule by mouth once daily. lamoTRIgine (LAMICTAL) 200 mg tablet Take 1 tablet by mouth daily at bedtime. norgestimate 0.25 mg-ethinyl estradiol 35 mcg (TAMARA) 0.25-35 mg-mcg per tablet Take 1 tablet by mouth once daily. Take active pills only. No inactive week. MAGNESIUM GLYCINATE ORAL Take 200 mg by mouth once daily. meclizine (ANTIVERT) 25 mg tab Take 1 tablet by mouth three times a day as needed (vertigo). ondansetron orally disintegrating (ZOFRAN ODT) 4 mg disintegrating tablet Take 1 tablet by mouth every 6 hours as needed for nausea/vomiting. (Patient not taking: Reported on 07/16/2024) gabapentin (NEURONTIN) 100 mg capsule Take 1 capsule by mouth three times a day for 90 days. Multivitamin capsule Take 1 capsule by mouth once daily. BIOTIN, BULK, MISC cholecalciferol, vitamin D3, (VITAMIN D3 ORAL) Take by mouth. ascorbic acid (VITAMIN C ORAL) Take by mouth. No current facility-administered medications for this visit. FAMILY HISTORY Problem Relation Age of Onset Arthritis Mother Diabetes Mother Headache Father Lipids Father Headache Sister Diabetes Maternal Grandfather Stroke Maternal Grandfather Alcohol/Drug Paternal Grandmother ETOH Alcohol/Drug Paternal Grandfather ETOH Cancer Paternal Grandfather LUNG Alcohol/Drug Paternal Aunt ETOH Alcohol/Drug Paternal Uncle ETOH Cancer Paternal Uncle LUNG Social History Tobacco Use Smoking status: Former Current packs/day: 0.00 Average packs/day: 0.5 packs/day for 12.0 years (6.0 ttl pk-yrs) Types: Cigarettes Start date: 07/22/2001 Quit date: 07/22/2013 Years since quittin.0 Smokeless tobacco: Never Vaping Use Vaping status: Never Used Substance Use Topics Alcohol use: Not Currently Comment: Rarely Drug use: No EXAM: BP 122/88 Pulse 79 Temp 36.1 C (97 F) (Left Tympanic) Wt 108.9 kg (240 lb) LMP 08/28/2020 (Approximate) SpO2 99% BMI 43.90 kg/m PHYSICAL EXAM: Physical Exam Vitals reviewed. Constitutional: Appearance: Normal appearance. HENT: Head: Normocephalic. Right Ear: Ear canal and external ear normal. There is no impacted cerumen. Left Ear: Ear canal and external ear normal. There is no impacted cerumen. Ears: Comments: Pawan. TM bulging with clear effusions Nose: Congestion and rhinorrhea present. Mouth/Throat: Pharynx: Oropharyngeal exudate and posterior oropharyngeal erythema present. Neck: Vascular: No carotid bruit. Cardiovascular: Rate and Rhythm: Normal rate and regular rhythm. Pulses: Normal pulses. Heart sounds: Normal heart sounds. Pulmonary: Effort: Pulmonary effort is normal. Breath sounds: Normal breath sounds. Abdominal: General: Bowel sounds are normal. Palpations: Abdomen is soft. Tenderness: There is no abdominal tenderness. There is no guarding or rebound. Musculoskeletal: General: Normal range of motion. Right lower leg: No edema. Left lower leg: No edema. Comments: Walks w/o assistive device Lymphadenopathy: Cervical: No cervical adenopathy. Skin: General: Skin is warm and dry. Neurological: Mental Status: She is alert and oriented to person, place, and time. Psychiatric: Mood and Affect: Mood normal. Behavior: Behavior normal. LABS: ASSESSMENT/PLAN: 1. Viral upper respiratory tract infection - ICD9: 465.9, ICD10: J06.9 (primary diagnosis) - Discussed viral etiology and rationale for treatment. - Symptomatic treatment with prn analgesia - Supportive care with fluids and rest - FLUTICASONE PROPIONATE 50 MCG/ACTUATION NASAL SPRAY,SUSPENSION - PROMETHAZINE-DM 6.25 MG-15 MG/5 ML ORAL SYRUP - TIZANIDINE 4 MG TABLET 2. Neck pain - ICD9: 723.1, ICD10: M54.2 Not taking regularly - GABAPENTIN 100 MG CAPSULE 3. Low back pain with sciatica, sciatica laterality unspecified, unspecified back pain laterality, unspecified chronicity - ICD9: 724.3, ICD10: M54.40 Chronic low back pain - Muscle relaxant- see orders - GABAPENTIN 100 MG CAPSULE Discussed treatment plan and patient voices understanding. Patient's questions answered appropriately. Medications and potential side effects were discussed and patient voices understanding. Return to the office as scheduled or as needed for worsening/no improvement. Bettina Fuentes APRN.RACHID documented in [facility]25 NoteHNO ID: [id number] Author: MARTINA WINTERS PA Service: ? Author Type: Physician Brim Blocker Type: Progress Notes Filed: 07/16/2024 08:43 Note Text: This note was created using [employer]. Subjective Fernanda Hernandez is a 44 year old female. HPI 44-year-old female presents for rash x 3 days. Patient states she has had an itchy rash on her arms, legs, abdomen x 3 days. She states that she did use detergent pods which are new. She states she has been using those for couple weeks, rash that showed up about 3 days ago. She states she has had a cold on and off for the past 3 weeks as well with headache, fatigue, sore throat, sneezing, runny nose. She has not had a cough. No chest pain or shortness of breath. She stated she did a COVID, flu and RSV swab at work and this was all negative. She has not had a strep swab. She denies any fevers. No vomiting or diarrhea. Still eating and drinking. No other complaint. PAST MEDICAL HISTORY Diagnosis Date Delayed emergence from general anesthesia Fibromyalgia 08/20/2016 GERD (gastroesophageal reflux disease) 03/12/2009 Hiatal hernia Hypoglycemia, unspecified Mental disorder anxiety and depression Migraine without aura 2001 Morbid obesity (HCC) Normal cardiac stress test 01/23/2012 PONV (postoperative nausea and vomiting) Sleep apnea Snoring Unspecified prophylactic or treatment measure PAST SURGICAL HISTORY Procedure Laterality Date COLONOSCOPY BX SINGLE/MULTI 02/04/2024 COLONOSCOPY W/BIOPSY SINGLE/MULTIPLE 12/14/2018 EGD 01/31/2020 ESOPHAGOGASTRODUODENOSCOPY TRANSORAL DIAGNOSTIC 04/11/2005 EGD ESOPHAGOGASTRODUODENOSCOPY TRANSORAL DIAGNOSTIC 03/06/2017 EGD GASTRIC BYPASS, TATI-EN-Y 11/08/2020 w/ Lap hiatal hernia repair LAP REPAIR, PARAESOPHAGEAL HIATAL HERNIA 11/08/2020 LAPAROSCOPY SURG CHOLECYSTECTOMY 03/21/2016 REDUCTION OF LARGE BREAST 2014 TONSILLECTOMY AND ADENOIDECTOMY AGE 11/> 2002 DR. EASTMAN ALLERGIES Aciphex [Rabeprazole Sodium], Entex Pse [Pseudoephedrine-Guaifenesin], Nexium [Esomeprazole Magnesium], Prevacid [Lansoprazole], Prilosec [Omeprazole], Sulfa (Sulfonamide Antibiotics), and Wellbutrin [Bupropion Hcl] MEDICATIONS DULoxetine (CYMBALTA) 30 mg capsule Take 1 capsule by mouth once daily. lamoTRIgine (LAMICTAL) 200 mg tablet Take 1 tablet by mouth daily at bedtime. norgestimate 0.25 mg-ethinyl estradiol 35 mcg (TAMARA) 0.25-35 mg-mcg per tablet Take 1 tablet by mouth once daily. Take active pills only. No inactive week. MAGNESIUM GLYCINATE ORAL Take 200 mg by mouth once daily. meclizine (ANTIVERT) 25 mg tab Take 1 tablet by mouth three times a day as needed (vertigo). gabapentin (NEURONTIN) 100 mg capsule Take 1 capsule by mouth three times a day for 90 days. Multivitamin capsule Take 1 capsule by mouth once daily. BIOTIN, BULK, MISC cholecalciferol, vitamin D3, (VITAMIN D3 ORAL) Take by mouth. ascorbic acid (VITAMIN C ORAL) Take by mouth. ondansetron orally disintegrating (ZOFRAN ODT) 4 mg disintegrating tablet Take 1 tablet by mouth every 6 hours as needed for nausea/vomiting. (Patient not taking: Reported on 07/16/2024) FAMILY HISTORY Problem Relation Age of Onset Arthritis Mother Diabetes Mother Headache Father Lipids Father Headache Sister Diabetes Maternal Grandfather Stroke Maternal Grandfather Alcohol/Drug Paternal Grandmother ETOH Alcohol/Drug Paternal Grandfather ETOH Cancer Paternal Grandfather LUNG Alcohol/Drug Paternal Aunt ETOH Alcohol/Drug Paternal Uncle ETOH Cancer Paternal Uncle LUNG Social History Tobacco Use Smoking status: Former Current packs/day: 0.00 Average packs/day: 0.5 packs/day for 12.0 years (6.0 ttl pk-yrs) Types: Cigarettes Start date: 07/22/2001 Quit date: 07/22/2013 Years since quittin.9 Smokeless tobacco: Never Vaping Use Vaping status: Never Used Substance Use Topics Alcohol use: Not Currently Comment: Rarely Drug use: No Review of Systems Constitutional: Positive for fatigue. Negative for chills and fever. HENT: Positive for congestion, rhinorrhea, sneezing and sore throat. Negative for ear pain. Respiratory: Negative for cough and shortness of breath. Cardiovascular: Negative for chest pain. Gastrointestinal: Negative for diarrhea and vomiting. Skin: Positive for rash. Neurological: Positive for headaches. Objective BP 130/100 Pulse 88 Temp 36.7 ?C (98 ?F) Resp 21 Wt 111.7 kg (246 lb 4.1 oz) LMP 08/28/2020 (Approximate) SpO2 98% BMI 45.04 kg/m? Physical Exam Vitals and nursing note reviewed. Constitutional: General: She is not in acute distress. Appearance: Normal appearance. She is not toxic-appearing. HENT: Right Ear: Tympanic membrane and ear canal normal. Left Ear: Tympanic membrane and ear canal normal. Nose: Nose normal. Mouth/Throat: Mouth: Mucous membranes are moist. Pharynx: Posterior oropharyngeal erythema present. Eyes: Conjunctiva/scler (more content not included)...[facility] 07-16-2024 History of Present illness Narrative* Martina Winters PA - 07/16/2024 8:25 AM EST This note was created using [employer]. Subjective Fernanda Hernandez is a 44 year old female. HPI 44-year-old female presents for rash x 3 days. Patient states she has had an itchy rash on her arms, legs, abdomen x 3 days. She states that she did use detergent pods which are new. She states she has been using those for couple weeks, rash that showed up about 3 days ago. She states she has had a cold on and off for the past 3 weeks as well with headache, fatigue, sore throat, sneezing, runny nose. She has not had a cough. No chest pain or shortness of breath. She stated she did a COVID, flu and RSV swab at work and this was all negative. She has not had a strep swab. She denies any fevers. No vomiting or diarrhea. Still eating and drinking. No other complaint. PAST MEDICAL HISTORY Diagnosis Date Delayed emergence from general anesthesia Fibromyalgia 08/20/2016 GERD (gastroesophageal reflux disease) 03/12/2009 Hiatal hernia Hypoglycemia, unspecified Mental disorder anxiety and depression Migraine without aura 2001 Morbid obesity (HCC) Normal cardiac stress test 01/23/2012 PONV (postoperative nausea and vomiting) Sleep apnea Snoring Unspecified prophylactic or treatment measure PAST SURGICAL HISTORY Procedure Laterality Date COLONOSCOPY BX SINGLE/MULTI 02/04/2024 COLONOSCOPY W/BIOPSY SINGLE/MULTIPLE 12/14/2018 EGD 01/31/2020 ESOPHAGOGASTRODUODENOSCOPY TRANSORAL DIAGNOSTIC 04/11/2005 EGD ESOPHAGOGASTRODUODENOSCOPY TRANSORAL DIAGNOSTIC 03/06/2017 EGD GASTRIC BYPASS, TATI-EN-Y 11/08/2020 w/ Lap hiatal hernia repair LAP REPAIR, PARAESOPHAGEAL HIATAL HERNIA 11/08/2020 LAPAROSCOPY SURG CHOLECYSTECTOMY 03/21/2016 REDUCTION OF LARGE BREAST 2014 TONSILLECTOMY & ADENOIDECTOMY AGE 11/> 2002 DR. E[facility]MAN ALLERGIES Aciphex [Rabeprazole Sodium], Entex Pse [Pseudoephedrine-Guaifenesin], Nexium [Esomeprazole Magnesium], Prevacid [Lansoprazole], Prilosec [Omeprazole], Sulfa (Sulfonamide Antibiotics), and Wellbutrin [Bupropion Hcl] MEDICATIONS DULoxetine (CYMBALTA) 30 mg capsule Take 1 capsule by mouth once daily. lamoTRIgine (LAMICTAL) 200 mg tablet Take 1 tablet by mouth daily at bedtime. norgestimate 0.25 mg-ethinyl estradiol 35 mcg (TAMARA) 0.25-35 mg-mcg per tablet Take 1 tablet by mouth once daily. Take active pills only. No inactive week. MAGNESIUM GLYCINATE ORAL Take 200 mg by mouth once daily. meclizine (ANTIVERT) 25 mg tab Take 1 tablet by mouth three times a day as needed (vertigo). gabapentin (NEURONTIN) 100 mg capsule Take 1 capsule by mouth three times a day for 90 days. Multivitamin capsule Take 1 capsule by mouth once daily. BIOTIN, BULK, MISC cholecalciferol, vitamin D3, (VITAMIN D3 ORAL) Take by mouth. ascorbic acid (VITAMIN C ORAL) Take by mouth. ondansetron orally disintegrating (ZOFRAN ODT) 4 mg disintegrating tablet Take 1 tablet by mouth every 6 hours as needed for nausea/vomiting. (Patient not taking: Reported on 07/16/2024) FAMILY HISTORY Problem Relation Age of Onset Arthritis Mother Diabetes Mother Headache Father Lipids Father Headache Sister Diabetes Maternal Grandfather Stroke Maternal Grandfather Alcohol/Drug Paternal Grandmother ETOH Alcohol/Drug Paternal Grandfather ETOH Cancer Paternal Grandfather LUNG Alcohol/Drug Paternal Aunt ETOH Alcohol/Drug Paternal Uncle ETOH Cancer Paternal Uncle LUNG Social History Tobacco Use Smoking status: Former Current packs/day: 0.00 Average packs/day: 0.5 packs/day for 12.0 years (6.0 ttl pk-yrs) Types: Cigarettes Start date: 07/22/2001 Quit date: 07/22/2013 Years since quittin.9 Smokeless tobacco: Never Vaping Use Vaping status: Never Used Substance Use Topics Alcohol use: Not Currently Comment: Rarely Drug use: No Review of Systems Constitutional: Positive for fatigue. Negative for chills and fever. HENT: Positive for congestion, rhinorrhea, sneezing and sore throat. Negative for ear pain. Respiratory: Negative for cough and shortness of breath. Cardiovascular: Negative for chest pain. Gastrointestinal: Negative for diarrhea and vomiting. Skin: Positive for rash. Neurological: Positive for headaches. Objective BP 130/100 Pulse 88 Temp 36.7 C (98 F) Resp 21 Wt 111.7 kg (246 lb 4.1 oz) LMP 08/28/2020(Approximate) SpO2 98% BMI 45.04 kg/m Physical Exam Vitals and nursing note reviewed. Constitutional: General: She is not in acute distress. Appearance: Normal appearance. She is not toxic-appearing. HENT: Right Ear: Tympanic membrane and ear canal normal. Left Ear: Tympanic membrane and ear canal normal. Nose: Nose normal. Mouth/Throat: Mouth: Mucous membranes are moist. Pharynx: Posterior oropharyngeal erythema present. Eyes: Conjunctiva/sclera: Conjunctivae normal. Cardiovascular: Rate and Rhythm: Normal rate and regular rhythm. Pulmonary: Effort: Pulmonary effort is normal. Breath sounds: Normal breath sounds. No wheezing, rhonchi or rales. Skin: General: Skin is warm and dry. Findings: Rash present. Comments: Erythematous raised pinpoint papules noted on forearms, abdomen. Patient states rash is pruritic. No lymphatic streaking, fluctuance, abscess. No vesicular lesions. Neurological: Mental Status: She is alert. Assessment and Plan ASSESSMENT/PLAN: 1. Sore throat - ICD9: 462, ICD10: J02.9 (primary diagnosis) - suspect viral - Group A strep molecular testing negative - Discussed supportive care treatment with fluids, rest and analgesia. - The patient may also use warm salt water gargles, throat lozenges and/or OTC throat spray as needed. - STREP A MOLECULAR (POC) 2. Rash - ICD9: 782.1, ICD10: R21 - rx prednisone - stop gain detergent Diagnosis and treatment plan were discussed and questions were answered to the patient's satisfaction. Pt acknowledged understanding of concepts and follow up plan. Specific signs and symptoms that would indicate the need for higher level of care were discussed in detail warranting prompt ER evaluation. OG Cervantes [facility]01-[facility] Telephone encounter Note * Telephone Encounter - Bev Ortega MA - 06/06/2024 8:09 AM EST Prescription Refill Information The patient has been identified by name and date of : Yes Caregiver verified no other encounters exist for this prescription request: Yes Caregiver confirmed with patient/requestor that no other refills are due, in the near future, with this provider at this time: Yes The last office visit in the department: 02/01/2024 Does the patient have a future office visit with this provider/department: No- I will call patient to schedule Requested Prescriptions Pending Prescriptions Disp Refills DULoxetine (CYMBALTA) 30 mg capsule 90 capsule 0 Sig: Take 1 capsule by mouth once daily. Bev Ortega MA June 06, 2024 8:10 AM [facility]01-13-[facility] Miscellaneous Notes* Telephone Encounter - Bev Ortega MA - 06/06/2024 8:09 AM EST Prescription Refill Information The patient has been identified by name and date of : Yes Caregiver verified no other encounters exist for this prescription request: Yes Caregiver confirmed with patient/requestor that no other refills are due, in the near future, with this provider at this time: Yes The last office visit in the department: 02/01/2024 Does the patient have a future office visit with this provider/department: No- I will call patient to schedule Requested Prescriptions Pending Prescriptions Disp Refills DULoxetine (CYMBALTA) 30 mg capsule 90 capsule 0 Sig: Take 1 capsule by mouth once daily. Bev Ortega MA June 06, 2024 8:10 AM documented in this encounterMer[facility]12-16-2024 Telephone encounter Note * Telephone Encounter - Ellie Kwong LPN - 05/09/2024 2:37 PM EST Prescription Refill Information The patient has been identified by name and date of : Yes Caregiver verified no other encounters exist for this prescription request: Yes Caregiver confirmed with patient/requestor that no other refills are due, in the near future, with this provider at this time: Yes The last office visit in the department: 02/01/2024 Does the patient have a future office visit with this provider/department: No Requested Prescriptions Pending Prescriptions Disp Refills lamoTRIgine (LAMICTAL) 200 mg tablet 90 tablet 0 Sig: Take 1 tablet by mouth daily at bedtime. Ellie Kwong LPN May 09, 2024 2:37 PM [facility]12-16-[facility] Miscellaneous Notes* Telephone Encounter - Ellie Kwong LPN - 05/09/2024 2:37 PM EST Prescription Refill Information The patient has been identified by name and date of : Yes Caregiver verified no other encounters exist for this prescription request: Yes Caregiver confirmed with patient/requestor that no other refills are due, in the near future, with this provider at this time: Yes The last office visit in the department: 02/01/2024 Does the patient have a future office visit with this provider/department: No Requested Prescriptions Pending Prescriptions Disp Refills lamoTRIgine (LAMICTAL) 200 mg tablet 90 tablet 0 Sig: Take 1 tablet by mouth daily at bedtime. Ellie Kwong LPN May 09, 2024 2:37 PM documented in this encounterMercy [facility] Hospital12-10-2024 Instructions* Patient Instructions* Bettina Fuentes APRN.CNP - 05/03/2024 4:16 PM EST 1) Full liquid diet today, advance as tolerated- soft then regular 2) Cipro 500 mg 2 x day 3) Flagyl 500 mg 3 x day 4) Follow up in 6 months documented in this encounterMercy [facility]12-10-2024 NoteHNO ID: [id number] Author: BETTINA FUENTES APRN.RACHID Service: ? Author Type: Clinical Nurse Specialist Type: Progress Notes Filed: 05/03/2024 16:22 Note Text: This is a 44 year old female who presents today with: No chief complaint on file. HISTORY OF PRESENT ILLNESS: Fernanda Hernandez is a 44 year old female. No chief complaint on file. Had RFA lumbar spine last week- Thu. IV in right hand but ropey tender vein inner upper forearm- pain started on and lump appeared over weekend. Left flank pain wraps around to front pelvis. Pain started last evening abruptly. Pushing to move bowels and sharp pain LLQ. No n/V No fever or chills. Right now 09/01- last evening 01/01 PAST MEDICAL HISTORY: PAST MEDICAL HISTORY Diagnosis Date Delayed emergence from general anesthesia Fibromyalgia 08/20/2016 GERD (gastroesophageal reflux disease) 03/12/2009 Hiatal hernia Hypoglycemia, unspecified Mental disorder anxiety and depression Migraine without aura 2001 Morbid obesity (HCC) Normal cardiac stress test 01/23/2012 PONV (postoperative nausea and vomiting) Sleep apnea Snoring Unspecified prophylactic or treatment measure PAST SURGICAL HISTORY Procedure Laterality Date COLONOSCOPY BX SINGLE/MULTI 02/04/2024 COLONOSCOPY W/BIOPSY SINGLE/MULTIPLE 12/14/2018 EGD 01/31/2020 ESOPHAGOGASTRODUODENOSCOPY TRANSORAL DIAGNOSTIC 04/11/2005 EGD ESOPHAGOGASTRODUODENOSCOPY TRANSORAL DIAGNOSTIC 03/06/2017 EGD GASTRIC BYPASS, TATI-EN-Y 11/08/2020 w/ Lap hiatal hernia repair LAP REPAIR, PARAESOPHAGEAL HIATAL HERNIA 11/08/2020 LAPAROSCOPY SURG CHOLECYSTECTOMY 03/21/2016 REDUCTION OF LARGE BREAST 2014 TONSILLECTOMY AND ADENOIDECTOMY AGE 11/> 2002 DR. E[facility]MAN ALLERGIES Aciphex [Rabeprazole Sodium], Entex Pse [Pseudoephedrine-Guaifenesin], Nexium [Esomeprazole Magnesium], Prevacid [Lansoprazole], Prilosec [Omeprazole], Sulfa (Sulfonamide Antibiotics), and Wellbutrin [Bupropion Hcl] MEDICATIONS Current Outpatient Medications Medication Sig DULoxetine (CYMBALTA) 30 mg capsule Take 1 capsule by mouth once daily. norgestimate 0.25 mg-ethinyl estradiol 35 mcg (TAMARA) 0.25-35 mg-mcg per tablet Take 1 tablet by mouth once daily. Take active pills only. No inactive week. lamoTRIgine (LAMICTAL) 200 mg tablet Take 1 tablet by mouth daily at bedtime. MAGNESIUM GLYCINATE ORAL Take 200 mg by mouth once daily. meclizine (ANTIVERT) 25 mg tab Take 1 tablet by mouth three times a day as needed (vertigo). ondansetron orally disintegrating (ZOFRAN ODT) 4 mg disintegrating tablet Take 1 tablet by mouth every 6 hours as needed for nausea/vomiting. Multivitamin capsule Take 1 capsule by mouth once daily. BIOTIN, BULK, MISC cholecalciferol, vitamin D3, (VITAMIN D3 ORAL) Take by mouth. ascorbic acid (VITAMIN C ORAL) Take by mouth. gabapentin (NEURONTIN) 100 mg capsule Take 1 capsule by mouth three times a day for 90 days. No current facility-administered medications for this visit. FAMILY HISTORY Problem Relation Age of Onset Arthritis Mother Diabetes Mother Headache Father Lipids Father Headache Sister Diabetes Maternal Grandfather Stroke Maternal Grandfather Alcohol/Drug Paternal Grandmother ETOH Alcohol/Drug Paternal Grandfather ETOH Cancer Paternal Grandfather LUNG Alcohol/Drug Paternal Aunt ETOH Alcohol/Drug Paternal Uncle ETOH Cancer Paternal Uncle LUNG Social History Tobacco Use Smoking status: Former Current packs/day: 0.00 Average packs/day: 0.5 packs/day for 12.0 years (6.0 ttl pk-yrs) Types: Cigarettes Start date: 07/22/2001 Quit date: 07/22/2013 Years since quittin.7 Smokeless tobacco: Never Vaping Use Vaping status: Never Used Substance Use Topics Alcohol use: Not Currently Comment: Rarely Drug use: No EXAM: BP 132/82 Pulse 71 Temp 36.2 ?C (97.2 ?F) (Tympanic) Resp 18 Wt 110 kg (242 lb 8.1 oz) LMP 08/28/2020 (Approximate) SpO2 98% BMI 44.35 kg/m? PHYSICAL EXAM: Physical Exam Vitals reviewed. Constitutional: Appearance: Normal appearance. HENT: Head: Normocephalic. Cardiovascular: Rate and Rhythm: Normal rate and regular rhythm. Pulses: Normal pulses. Heart sounds: Normal heart sounds. Pulmonary: Effort: Pulmonary effort is normal. Breath sounds: Normal breath sounds. Abdominal: General: Bowel sounds are normal. There is no distension. Palpations: Abdomen is soft. Tenderness: There is abdominal tenderness. There is guarding. Comments: LLQ tenderness on palpation Musculoskeletal: General: Normal range of motion. Skin: General: Skin is warm and dry. Comments: Right forearm inner aspect firm, ropey vessel tender to touch and streaking up Neurological: Mental Status: She is alert and oriented to person, place, and time. Psychiatric: Mood and Affect: Mood normal. Behavior: Behavior normal. LABS: urine dip trace leukocytes ASSESSMENT/PLAN: 1. Dysuria - IC (more content not included)...[facility] 05-03-2024 History of Present illness Narrative* Bettina Fuentes APRN.AGENCY OWNER - 05/03/2024 4:00 PM EST This is a 44 year old female who presents today with: No chief complaint on file. HISTORY OF PRESENT ILLNESS: Fernanda Hernandez is a 44 year old female. No chief complaint on file. Had RFA lumbar spine last week- Thu. IV in right hand but ropey tender vein inner upper forearm- pain started on and lump appeared over weekend. Left flank pain wraps around to front pelvis. Pain started last evening abruptly. Pushing to move bowels and sharp pain LLQ. No n/V No fever or chills. Right now 09/01- last evening 01/01 PAST MEDICAL HISTORY: PAST MEDICAL HISTORY Diagnosis Date Delayed emergence from general anesthesia Fibromyalgia 08/20/2016 GERD (gastroesophageal reflux disease) 03/12/2009 Hiatal hernia Hypoglycemia, unspecified Mental disorder anxiety and depression Migraine without aura 2001 Morbid obesity (HCC) Normal cardiac stress test 01/23/2012 PONV (postoperative nausea and vomiting) Sleep apnea Snoring Unspecified prophylactic or treatment measure PAST SURGICAL HISTORY Procedure Laterality Date COLONOSCOPY BX SINGLE/MULTI 02/04/2024 COLONOSCOPY W/BIOPSY SINGLE/MULTIPLE 12/14/2018 EGD 01/31/2020 ESOPHAGOGASTRODUODENOSCOPY TRANSORAL DIAGNOSTIC 04/11/2005 EGD ESOPHAGOGASTRODUODENOSCOPY TRANSORAL DIAGNOSTIC 03/06/2017 EGD GASTRIC BYPASS, TATI-EN-Y 11/08/2020 w/ Lap hiatal hernia repair LAP REPAIR, PARAESOPHAGEAL HIATAL HERNIA 11/08/2020 LAPAROSCOPY SURG CHOLECYSTECTOMY 03/21/2016 REDUCTION OF LARGE BREAST 2014 TONSILLECTOMY & ADENOIDECTOMY AGE 11/> 2002 DR. EASTMAN ALLERGIES Aciphex [Rabeprazole Sodium], Entex Pse [Pseudoephedrine-Guaifenesin], Nexium [Esomeprazole Magnesium], Prevacid [Lansoprazole], Prilosec [Omeprazole], Sulfa (Sulfonamide Antibiotics), and Wellbutrin [Bupropion Hcl] MEDICATIONS Current Outpatient Medications Medication Sig DULoxetine (CYMBALTA) 30 mg capsule Take 1 capsule by mouth once daily. norgestimate 0.25 mg-ethinyl estradiol 35 mcg (TAMARA) 0.25-35 mg-mcg per tablet Take 1 tablet by mouth once daily. Take active pills only. No inactive week. lamoTRIgine (LAMICTAL) 200 mg tablet Take 1 tablet by mouth daily at bedtime. MAGNESIUM GLYCINATE ORAL Take 200 mg by mouth once daily. meclizine (ANTIVERT) 25 mg tab Take 1 tablet by mouth three times a day as needed (vertigo). ondansetron orally disintegrating (ZOFRAN ODT) 4 mg disintegrating tablet Take 1 tablet by mouth every 6 hours as needed for nausea/vomiting. Multivitamin capsule Take 1 capsule by mouth once daily. BIOTIN, BULK, MISC cholecalciferol, vitamin D3, (VITAMIN D3 ORAL) Take by mouth. ascorbic acid (VITAMIN C ORAL) Take by mouth. gabapentin (NEURONTIN) 100 mg capsule Take 1 capsule by mouth three times a day for 90 days. No current facility-administered medications for this visit. FAMILY HISTORY Problem Relation Age of Onset Arthritis Mother Diabetes Mother Headache Father Lipids Father Headache Sister Diabetes Maternal Grandfather Stroke Maternal Grandfather Alcohol/Drug Paternal Grandmother ETOH Alcohol/Drug Paternal Grandfather ETOH Cancer Paternal Grandfather LUNG Alcohol/Drug Paternal Aunt ETOH Alcohol/Drug Paternal Uncle ETOH Cancer Paternal Uncle LUNG Social History Tobacco Use Smoking status: Former Current packs/day: 0.00 Average packs/day: 0.5 packs/day for 12.0 years (6.0 ttl pk-yrs) Types: Cigarettes Start date: 07/22/2001 Quit date: 07/22/2013 Years since quittin.7 Smokeless tobacco: Never Vaping Use Vaping status: Never Used Substance Use Topics Alcohol use: Not Currently Comment: Rarely Drug use: No EXAM: BP 132/82 Pulse 71 Temp 36.2 C (97.2 F) (Tympanic) Resp 18 Wt 110 kg (242 lb 8.1 oz) LMP 08/28/2020 (Approximate) SpO2 98% BMI 44.35 kg/m PHYSICAL EXAM: Physical Exam Vitals reviewed. Constitutional: Appearance: Normal appearance. HENT: Head: Normocephalic. Cardiovascular: Rate and Rhythm: Normal rate and regular rhythm. Pulses: Normal pulses. Heart sounds: Normal heart sounds. Pulmonary: Effort: Pulmonary effort is normal. Breath sounds: Normal breath sounds. Abdominal: General: Bowel sounds are normal. There is no distension. Palpations: Abdomen is soft. Tenderness: There is abdominal tenderness. There is guarding. Comments: LLQ tenderness on palpation Musculoskeletal: General: Normal range of motion. Skin: General: Skin is warm and dry. Comments: Right forearm inner aspect firm, ropey vessel tender to touch and streaking up Neurological: Mental Status: She is alert and oriented to person, place, and time. Psychiatric: Mood and Affect: Mood normal. Behavior: Behavior normal. LABS: urine dip trace leukocytes ASSESSMENT/PLAN: 1. Dysuria - ICD9: 788.1, ICD10: R30.0 (primary diagnosis) acute - Send urine for culture - Patient education for prevention given - UA DIP, URINE (POC) Trace leukocytes only, no blood or nitrates - URINE CULTURE 2. Diverticulitis - ICD9: 562.11, ICD10: K57.92 By exam only - Treat with Cipro x 5 days & Flagyl for 5 days - liquid diet today, advance to soft tomorrow, then to tolerance - If not resolved after antibiotics or worsens while on them, educated to go to ER right away 3. Phlebitis - ICD9: 451.9, ICD10: I80.9 Warm moist compresses Discussed treatment plan and patient voices understanding. Patient's questions answered appropriately. Medications and potential side effects were discussed and patient voices understanding. Return to the office as scheduled or as needed for worsening/no improvement. Bettina Fuentes APRN.AGENCY OWNER [facility] Telephone encounter Note * Telephone Encounter - Usha Zhong LPN - 04/29/2024 10:47 AM EST Patient given results and verbalized understanding of instructions given. Usha Zhong LPN [facility]12-06-[facility]24 Miscellaneous Notes* Telephone Encounter - Usha Zhong LPN - 04/29/2024 10:47 AM EST Patient given results and verbalized understanding of instructions given. Usha Zhong LPN * Telephone Encounter - Usha Zhong LPN - 04/28/2024 3:49 PM EST My chart message sent. Usha Zhong LPN * Telephone Encounter - Jourdan Estrada MD - 04/28/2024 1:57 PM EST Urine culture did not look like a clean sample so it did not show a clear infection. Follow up withPCP, urology, or DIRECTOR OF MATERIALS if symptoms persist. [facility] Telephone encounter Note * Telephone Encounter - Usha Zhong LPN - 04/28/2024 3:49 PM EST My chart message sent. Usha Zhong LPN [facility]12-05-2024 Telephone encounter Note* Telephone Encounter - Jourdan Estrada MD - 04/28/2024 1:57 PM EST Urine culture did not look like a clean sample so it did not show a clear infection. Follow up withPCP, urology, or DIRECTOR OF MATERIALS if symptoms persist. [facility] Work Phone: [phone] 114-248212-04-2024 NoteHNO ID: [id number] Author: JOURDAN ESTRADA MD Service: ? Author Type: Physician Type: Progress Notes Filed: 04/27/2024 09:05 Note Text: Patient presents with: Urinary Problem: Frequency, burning with urination x 5 days HPI: Symptoms for 5 days. Dysuria: Yes Frequency: Yes Hematuria: No pruritus: Yes Discharge: No Fever or chills: No Back pain: baseline Abdominal pain: No Prior UTI: Yes. Insignificant/mixed growth on cultures x 6 over the las 10 years. Treated with medrol and doxycycline for viral sinobronchitis a few weeks ago. She has not had improvement in symptoms with OTC monistat. MEDICATIONS: Current Outpatient Medications Medication Sig DULoxetine (CYMBALTA) 30 mg capsule Take 1 capsule by mouth once daily. norgestimate 0.25 mg-ethinyl estradiol 35 mcg (TAMARA) 0.25-35 mg-mcg per tablet Take 1 tablet by mouth once daily. Take active pills only. No inactive week. lamoTRIgine (LAMICTAL) 200 mg tablet Take 1 tablet by mouth daily at bedtime. MAGNESIUM GLYCINATE ORAL Take 200 mg by mouth once daily. meclizine (ANTIVERT) 25 mg tab Take 1 tablet by mouth three times a day as needed (vertigo). ondansetron orally disintegrating (ZOFRAN ODT) 4 mg disintegrating tablet Take 1 tablet by mouth every 6 hours as needed for nausea/vomiting. gabapentin (NEURONTIN) 100 mg capsule Take 1 capsule by mouth three times a day for 90 days. Multivitamin capsule Take 1 capsule by mouth once daily. BIOTIN, BULK, MISC cholecalciferol, vitamin D3, (VITAMIN D3 ORAL) Take by mouth. ascorbic acid (VITAMIN C ORAL) Take by mouth. No current facility-administered medications for this visit. ALLERGIES: ALLERGIES Allergen Reactions Aciphex [Rabeprazol* Rash Entex Pse [Pseudoep* INSOMNIA Nexium [Esomeprazol* Other: See Comments Made acid reflux worse Prevacid [Lansopraz* HEADACHE Prilosec [Omeprazol* HEADACHE Sulfa (Sulfonamide * Rash Wellbutrin [Bupropi* GI Upset VITALS: BP 140/86 Pulse 80 Temp 36.4 ?C (97.6 ?F) Resp 18 Wt 111.5 kg (245 lb 13 oz) LMP 08/28/2020 (Approximate) SpO2 98% BMI 44.96 kg/m? PHYSICAL EXAM: GEN: NAD HEENT: EOMI, conjunctiva clear, HEART: regular rate and rhythm, no murmurs LUNGS: clear to auscultation, no wheezes or crackles, no increased WOB ABDOMEN: Soft, nondistended, no masses, no suprapubic tenderness BACK: No CVA tenderness ASSESSMENT/PLAN: 1. Urinary frequency - ICD9: 788.41, ICD10: R35.0 - UA DIP, URINE (POC) - small LE only. Start - FLUCONAZOLE 150 MG TABLET for possible candidiasis following antibiotic and steroid therapy. Send - URINE CULTURE. Send antibiotic if there is significant growth. Jourdan Estrada [facility]12-04-2024 History of Present illness Narrative* Jourdan Estrada MD - 04/27/2024 8:43 AM EST Patient presents with: Urinary Problem: Frequency, burning with urination x 5 days HPI: Symptoms for 5 days. Dysuria: Yes Frequency: Yes Hematuria: No pruritus: Yes Discharge: No Fever or chills: No Back pain: baseline Abdominal pain: No Prior UTI: Yes. Insignificant/mixed growth on cultures x 6 over the las 10 years. Treated with medrol and doxycycline for viral sinobronchitis a few weeks ago. She has not had improvement in symptoms with OTC monistat. MEDICATIONS: Current Outpatient Medications Medication Sig DULoxetine (CYMBALTA) 30 mg capsule Take 1 capsule by mouth once daily. norgestimate 0.25 mg-ethinyl estradiol 35 mcg (TAMARA) 0.25-35 mg-mcg per tablet Take 1 tablet by mouth once daily. Take active pills only. No inactive week. lamoTRIgine (LAMICTAL) 200 mg tablet Take 1 tablet by mouth daily at bedtime. MAGNESIUM GLYCINATE ORAL Take 200 mg by mouth once daily. meclizine (ANTIVERT) 25 mg tab Take 1 tablet by mouth three times a day as needed (vertigo). ondansetron orally disintegrating (ZOFRAN ODT) 4 mg disintegrating tablet Take 1 tablet by mouth every 6 hours as needed for nausea/vomiting. gabapentin (NEURONTIN) 100 mg capsule Take 1 capsule by mouth three times a day for 90 days. Multivitamin capsule Take 1 capsule by mouth once daily. BIOTIN, BULK, MISC cholecalciferol, vitamin D3, (VITAMIN D3 ORAL) Take by mouth. ascorbic acid (VITAMIN C ORAL) Take by mouth. No current facility-administered medications for this visit. ALLERGIES: ALLERGIES Allergen Reactions Aciphex [Rabeprazol* Rash Entex Pse [Pseudoep* INSOMNIA Nexium [Esomeprazol* Other: See Comments Made acid reflux worse Prevacid [Lansopraz* HEADACHE Prilosec [Omeprazol* HEADACHE Sulfa (Sulfonamide * Rash Wellbutrin [Bupropi* GI Upset VITALS: BP 140/86 Pulse 80 Temp 36.4 C (97.6 F) Resp 18 Wt 111.5 kg (245 lb 13 oz) LMP 08/28/2020(Approximate) SpO2 98% BMI 44.96 kg/m PHYSICAL EXAM: GEN: NAD HEENT: EOMI, conjunctiva clear, HEART: regular rate and rhythm, no murmurs LUNGS: clear to auscultation, no wheezes or crackles, no increased WOB ABDOMEN: Soft, nondistended, no masses, no suprapubic tenderness BACK: No CVA tenderness ASSESSMENT/PLAN: 1. Urinary frequency - ICD9: 788.41, ICD10: R35.0 - UA DIP, URINE (POC) - small LE only. Start - FLUCONAZOLE 150 MG TABLET for possible candidiasis following antibiotic and steroid therapy. Send - URINE CULTURE. Send antibiotic if there is significant growth. Jourdan Estrada MD documented in [facility]11-[facility] History of Present illness Narrative* Beth Barakat RT(R) - 04/16/2024 8:30 AM EST Radiology Service Progress Note PATIENT NAME: Fernanda Hernandez DATE OF SERVICE: April 16, 2024 TIME: 8:25 AM PATIENT IDENTITY VERIFICATION COMPLETED USING TWO (2) IDENTIFIERS: Name and Date of confirmedby patient verbally. FALL SCREENING: Has the patient had 2 falls in the last year or 1 fall with injury or currently using an Ambulatory Assistive Device (Walker, Cane, Wheelchair, Crutches, etc.)? No PATIENT GENDER DATA: Female. status: : No status: NO. PATIENT RELEVANT IMPLANT DATA REVIEWED: Not Applicable PATIENT PRESENTS WITH AN IMPLANTABLE OR ATTACHED REGULATORY LEAD: No RADIOLOGY DEPARTMENT: General X-ray: Exam(s) Completed: Chest X-Ray PERIPHERAL IV DATA: Not applicable SIGNED BY: JUAN LUIS Reyna) April 16, 2024 8:25 AM documented in this encounterMer[facility]11-23-2024 NoteHNO ID: [id number] Author: BETH BARAKAT RT(R) Service: ? Author Type: Technologist Type: Progress Notes Filed: 04/16/2024 08:30 Note Text: Radiology Service Progress Note PATIENT NAME: Fernanda Hernandez DATE OF SERVICE: April 16, 2024 TIME: 8:25 AM PATIENT IDENTITY VERIFICATION COMPLETED USING TWO (2) IDENTIFIERS: Name and Date of confirmed by patient verbally. FALL SCREENING: Has the patient had 2 falls in the last year or 1 fall with injury or currently using an Ambulatory Assistive Device (Walker, Cane, Wheelchair, Crutches, etc.)? No PATIENT GENDER DATA: Female. status: : No status: NO. PATIENT RELEVANT IMPLANT DATA REVIEWED: Not Applicable PATIENT PRESENTS WITH AN IMPLANTABLE OR ATTACHED REGULATORY LEAD: No RADIOLOGY DEPARTMENT: General X-ray: Exam(s) Completed: Chest X-Ray PERIPHERAL IV DATA: Not applicable SIGNED BY: RT Axel(R) April 16, 2024 8:25 [facility]11-23-2024 NoteHNO ID: [id number] Author: EDNA COURTNEY APRN.AGENCY OWNER Service: ? Author Type: Nurse Practitioner Type: Progress Notes Filed: 04/16/2024 08:39 Note Text: This note was created using Apps Foundryriter. Subjective Fernanda Hernandez is a 44 year old female. HPI Pt was seen here 04/12 for symptoms that started several days before. She initially started with a sore throat which is subsequently resolved but then she developed generalized fatigue shortness of breath headaches and myalgias. On the she was prescribed doxycycline for presumed early pneumonia and sinobronchitis. She notes that she is still not feeling better and presents again for reevaluation. She has tested negative for COVID twice in the last several days. Review of Systems Constitutional: Positive for fatigue. Negative for fever. Respiratory: Positive for shortness of breath. Musculoskeletal: Positive for myalgias. Neurological: Positive for headaches. Objective BP 144/88 Pulse 66 Temp 36.6 ?C (97.8 ?F) (Tympanic) Resp 18 Wt 108.2 kg (238 lb 8.6 oz) LMP 08/28/2020 (Approximate) SpO2 98% BMI 43.63 kg/m? Physical Exam Vitals and nursing note reviewed. Constitutional: General: She is not in acute distress. Appearance: Normal appearance. She is not ill-appearing. HENT: Head: Normocephalic. Mouth/Throat: Mouth: Mucous membranes are moist. Eyes: Conjunctiva/sclera: Conjunctivae normal. Cardiovascular: Rate and Rhythm: Normal rate and regular rhythm. Pulmonary: Effort: Pulmonary effort is normal. Breath sounds: Normal breath sounds. Musculoskeletal: General: Normal range of motion. Cervical back: Normal range of motion. Skin: General: Skin is warm and dry. Neurological: General: No focal deficit present. Mental Status: She is alert. Psychiatric: Mood and Affect: Mood normal. Behavior: Behavior normal. Assessment and Plan ASSESSMENT/PLAN: 1. Other fatigue - ICD9: 780.79, ICD10: R53.83 Chest x-ray unremarkable showing no sign of pneumonia. I discussed with patient that I felt her symptoms were most likely more viral in origin and may take more time to resolve. I discussed with patient the importance of getting plenty of rest and fluids, using Tylenol as needed for pain and fever, and follow-up with PCP. - XR CHEST 2V FRONTAL/LAT Edna Courtney APRN.[facility]11-23-2024 History of Present illness Narrative* Edna Courtney APRN.AGENCY OWNER - 04/16/2024 8:14 AM EST This note was created using Apps Foundryriter. Subjective Fernanda Hernandez is a 44 year old female. HPI Pt was seen here 04/12 for symptoms that started several days before. She initially started with a sore throat which is subsequently resolved but then she developed generalized fatigue shortness of breath headaches and myalgias. On the she was prescribed doxycycline for presumed early pneumonia and sinobronchitis. She notes that she is still not feeling better and presents again for reevaluation. She has tested negative for COVID twice in the last several days. Review of Systems Constitutional: Positive for fatigue. Negative for fever. Respiratory: Positive for shortness of breath. Musculoskeletal: Positive for myalgias. Neurological: Positive for headaches. Objective BP 144/88 Pulse 66 Temp 36.6 C (97.8 F) (Tympanic) Resp 18 Wt 108.2 kg (238 lb 8.6 oz) LMP 08/28/2020 (Approximate) SpO2 98% BMI 43.63 kg/m Physical Exam Vitals and nursing note reviewed. Constitutional: General: She is not in acute distress. Appearance: Normal appearance. She is not ill-appearing. HENT: Head: Normocephalic. Mouth/Throat: Mouth: Mucous membranes are moist. Eyes: Conjunctiva/sclera: Conjunctivae normal. Cardiovascular: Rate and Rhythm: Normal rate and regular rhythm. Pulmonary: Effort: Pulmonary effort is normal. Breath sounds: Normal breath sounds. Musculoskeletal: General: Normal range of motion. Cervical back: Normal range of motion. Skin: General: Skin is warm and dry. Neurological: General: No focal deficit present. Mental Status: She is alert. Psychiatric: Mood and Affect: Mood normal. Behavior: Behavior normal. Assessment and Plan ASSESSMENT/PLAN: 1. Other fatigue - ICD9: 780.79, ICD10: R53.83 Chest x-ray unremarkable showing no sign of pneumonia. I discussed with patient that I felt her symptoms were most likely more viral in origin and may take more time to resolve. I discussed with patient the importance of getting plenty of rest and fluids, using Tylenol as needed for pain and fever,and follow-up with PCP. - XR CHEST 2V FRONTAL/LAT Edna Courtney APRN.RACHID documented in this encounterMer[facility]11-21-2024 NoteHNO ID: [id number] Author: ?, ?, ? Service: ? Author Type: ? Type: Progress Notes Filed: 04/14/2024 10:36 Note Text: POPULATION HEALTH NAVIGATION OUTREACH Action/FYI RP Patient Outreach: Spoke with patient to schedule Provider ordered Behavioral Health follow up. Patient declined to schedule follow up. She will call back. Reason for Outreach Care Gap/HCC or Scheduling Wellness Visits Care Gaps due: Follow-up Appointment Patient Contacted: Spoke to patient/parent/or legal guardian Patient identified by name and : Yes Care Gap/HCC/Scheduling Wellness actions taken: Patient declined: Patient requested call back from navigator/ will call navigator back Navigation Signature: Fanta Jimchandni Aguilar April 14, 2024 10:36 [facility]11-21-2024 History of Present illness Narrative* Fanta Martinez - 04/14/2024 10:36 AM EST POPULATION HEALTH NAVIGATION OUTREACH Action/FYI RP Patient Outreach: Spoke with patient to schedule Provider ordered Behavioral Health follow up. Patient declined to schedule follow up. She will call back. Reason for Outreach Care Gap/HCC or Scheduling Wellness Visits Care Gaps due: Follow-up Appointment Patient Contacted: Spoke to patient/parent/or legal guardian Patient identified by name and : Yes Care Gap/HCC/Scheduling Wellness actions taken: Patient declined: Patient requested call back from navigator/ will call navigator back Navigation Signature: Fanta Webb Lauren April 14, 2024 10:36 AM documented in this encounterMer[facility]11-21-2024 NotePatient Outreach ([facility]) FERNANDA HERNANDEZ ([id number]) 1980 F Date Time Provider Department 04/14/24 NO PCP [facility] During your visit today, we recorded the following information about you: Fanta Martinez 04/14/2024 10:36 AM Signed POPULATION HEALTH NAVIGATION OUTREACH Action/FYI RP Patient Outreach: Spoke with patient to schedule Provider ordered Behavioral Health follow up. Patient declined to schedule follow up. She will call back. Reason for Outreach Care Gap/HCC or Scheduling Wellness Visits Care Gaps due: Follow-up Appointment Patient Contacted: Spoke to patient/parent/or legal guardian Patient identified by name and : Yes Care Gap/HCC/Scheduling Wellness actions taken: Patient declined: Patient requested call back from navigator/ will call navigator back Navigation Signature: Fanta Webb [facility] April 14, 2024 10:36 AM Allergies As of Date: 04/14/2024 Noted Allergy Reaction ACIPHEX (RABEPRAZOLE SODIUM) 07/09/2016 2 - Rash ENTEX PSE (PSEUDOEPHEDRINE-GUAIFE*03/06/2005 Comments: INSOMNIA NEXIUM (ESOMEPRAZOLE MAGNESIUM) 07/11/2016 14 - Other: See Comments Comments: Made acid reflux worse PREVACID (LANSOPRAZOLE) 03/06/2005 Comments: HEADACHE PRILOSEC (OMEPRAZOLE) 03/06/2005 Comments: HEADACHE SULFA (SULFONAMIDE ANTIBIOTICS) 03/06/2005 2 - Rash WELLBUTRIN (BUPROPION HCL) 05/08/2014 8 - GI Upset Date Reviewed: 04/12/2024 Reviewed by: Fanta Norton MA - Fully Assessed Prescriptions as of 04/14/2024 - methylPREDNISolone (MEDROL DOSE-PACK) 4 mg Dose-Pack - doxycycline (VIBRA-TABS) 100 mg tablet Take 1 tablet by mouth two times a day for 5 days. - DULoxetine (CYMBALTA) 30 mg capsule Take 1 capsule by mouth once daily. - norgestimate 0.25 mg-ethinyl estradiol 35 mcg (TAMARA) 0.25-35 mg-mcg per tablet Take 1 tablet by mouth once daily. Take active pills only. No inactive week. - lamoTRIgine (LAMICTAL) 200 mg tablet Take 1 tablet by mouth daily at bedtime. - MAGNESIUM GLYCINATE ORAL Take 200 mg by mouth once daily. - meclizine (ANTIVERT) 25 mg tab Take 1 tablet by mouth three times a day as needed (vertigo). - ondansetron orally disintegrating (ZOFRAN ODT) 4 mg disintegrating tablet Take 1 tablet by mouth every 6 hours as needed for nausea/vomiting. - gabapentin (NEURONTIN) 100 mg capsule Take 1 capsule by mouth three times a day for 90 days. - Multivitamin capsule Take 1 capsule by mouth once daily. - BIOTIN, BULK, MISC - cholecalciferol, vitamin D3, (VITAMIN D3 ORAL) Take by mouth. - ascorbic acid (VITAMIN C ORAL) Take by mouth. Meds Comments as of 07/16/2007: All medications have been reviewed /July 16, 2007 Cher Andre Rn Problem List As Of Date 04/14/2024 Noted Resolved Abdominal pain, epigastric [R10.13] 04/02/2005 03/12/2015 Acute gastritis without mention of hemorrhage [*04/11/2005 05/07/2015 Adjustment disorder with depressed mood [F43.21]02/02/2007 09/15/2019 DECREASED MOVMT-ANTEPARTUM [O36.8190] 01/20/2008 05/12/2008 Carbuncle and furuncle of trunk [L02.239, L02.2*05/12/2008 03/12/2015 GERD (gastroesophageal reflux disease) [K21.9] 03/12/2009 Lumbago [M54.50] 07/26/2009 Breakthrough bleeding with IUD [N92.1, Z97.5] 03/04/2012 03/18/2013 IUD migration [T83.32XA] 03/04/2012 03/18/2013 Tobacco abuse [Z72.0] 04/13/2012 07/22/2017 Unspecified prophylactic or treatment measure [* 03/12/2015 Morbid obesity (HCC) [E66.01] 03/14/2016 Fibromyalgia [M79.7] 08/20/2016 Paroxysmal hemicrania, 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] 08/20/2016 Cervical spinal stenosis [M48.02] 02/26/2017 Foraminal stenosis of cervical region [M48.02] 02/26/2017 Diarrhea [R19.7] 01/25/2019 Cervicothoracic somatic dysfunction [M99.01] 01/25/2019 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*06/09/2019 11/21/2021 Panic disorder without agoraphobia [F41.0] 06/09/2019 11/21/2021 Anxiety disorder [F41.9] 09/15/2019 Polypharmacy [Z79.899] 09/23/2019 CL[place]ON (obstructive sleep apnea) [G47.33] 12/28/2019 Acute pain of left shoulder [M25.512] 04/23/2020 Hiatal hernia [K44.9] 11/09/2020 11/09/2020 Major depressive disorder, recurrent episode, m*11/21/2021 Occult blood positive stool [R19.5] 02/04/2024 Encounter Status:Closed by FANTA MARTINEZ on 04/14/24[facility]11-19-2024 NoteHNO ID: [id number] Author: MARTINA WINTERS PA Service: ? Author Type: Physician Brim Blocker Type: Progress Notes Filed: 04/12/2024 12:57 Note Text: This note was created using NoteWriter. Subjective Fernanda Hernandez is a 44 year old female. HPI 44-year-old female presents for sinus pressure, sinus pain, sore throat x 6 days. Patient states she has had sinus pressure, congestion for about a week. She has had sore throat for about 6 days. She states she has a cough. She denies any chest pain or shortness of breath. She is still able to eat and drink. She reports that she was seen at an urgent care 2 days ago and tested for strep, flu, COVID all of which were negative. She was given a Medrol Dosepak. She states this is not really helping her symptoms. She continues with sore throat, cough, sinus pressure and pain. She has been taking [id number] cough and cold medications as well without much improvement. She has had sick contacts. No other complaint. PAST MEDICAL HISTORY Diagnosis Date Delayed emergence from general anesthesia Fibromyalgia 08/20/2016 GERD (gastroesophageal reflux disease) 03/12/2009 Hiatal hernia Hypoglycemia, unspecified Mental disorder anxiety and depression Migraine without aura 2001 Morbid obesity (HCC) Normal cardiac stress test 01/23/2012 PONV (postoperative nausea and vomiting) Sleep apnea Snoring Unspecified prophylactic or treatment measure PAST SURGICAL HISTORY Procedure Laterality Date COLONOSCOPY BX SINGLE/MULTI 02/04/2024 COLONOSCOPY W/BIOPSY SINGLE/MULTIPLE 12/14/2018 EGD 01/31/2020 ESOPHAGOGASTRODUODENOSCOPY TRANSORAL DIAGNOSTIC 04/11/2005 EGD ESOPHAGOGASTRODUODENOSCOPY TRANSORAL DIAGNOSTIC 03/06/2017 EGD GASTRIC BYPASS, [id number] 11/08/2020 w/ Lap hiatal hernia repair LAP REPAIR, PARAESOPHAGEAL HIATAL HERNIA 11/08/2020 LAPAROSCOPY SURG CHOLECYSTECTOMY 03/21/2016 REDUCTION OF LARGE BREAST 2014 TONSILLECTOMY AND ADENOIDECTOMY AGE 11/> 2002 DR. EASTMAN ALLERGIES Aciphex [Rabeprazole Sodium], Entex Pse [Pseudoephedrine-Guaifenesin], Nexium [Esomeprazole Magnesium], Prevacid [Lansoprazole], Prilosec [Omeprazole], Sulfa (Sulfonamide Antibiotics), and Wellbutrin [Bupropion Hcl] MEDICATIONS methylPREDNISolone (MEDROL DOSE-PACK) 4 mg Dose-Pack DULoxetine (CYMBALTA) 30 mg capsule Take 1 capsule by mouth once daily. norgestimate 0.25 mg-ethinyl estradiol 35 mcg (TAMARA) 0.25-35 mg-mcg per tablet Take 1 tablet by mouth once daily. Take active pills only. No inactive week. lamoTRIgine (LAMICTAL) 200 mg tablet Take 1 tablet by mouth daily at bedtime. MAGNESIUM GLYCINATE ORAL Take 200 mg by mouth once daily. cyclobenzaprine (FLEXERIL) 10 mg tablet Take 1 tablet by mouth three times a day as needed for muscle spasm. meclizine (ANTIVERT) 25 mg tab Take 1 tablet by mouth three times a day as needed (vertigo). ondansetron orally disintegrating (ZOFRAN ODT) 4 mg disintegrating tablet Take 1 tablet by mouth every 6 hours as needed for nausea/vomiting. gabapentin (NEURONTIN) 100 mg capsule Take 1 capsule by mouth three times a day for 90 days. Multivitamin capsule Take 1 capsule by mouth once daily. BIOTIN, BULK, MISC cholecalciferol, vitamin D3, (VITAMIN D3 ORAL) Take by mouth. ascorbic acid (VITAMIN C ORAL) Take by mouth. FAMILY HISTORY Problem Relation Age of Onset Arthritis Mother Diabetes Mother Headache Father Lipids Father Headache Sister Diabetes Maternal Grandfather Stroke Maternal Grandfather Alcohol/Drug Paternal Grandmother ETOH Alcohol/Drug Paternal Grandfather ETOH Cancer Paternal Grandfather LUNG Alcohol/Drug Paternal Aunt ETOH Alcohol/Drug Paternal Uncle ETOH Cancer Paternal Uncle LUNG Social History Tobacco Use Smoking status: Former Current packs/day: 0.00 Average packs/day: 0.5 packs/day for 12.0 years (6.0 ttl pk-yrs) Types: Cigarettes Start date: 07/22/2001 Quit date: 07/22/2013 Years since quittin.7 Smokeless tobacco: Never Vaping Use Vaping status: Never Used Substance Use Topics Alcohol use: Not Currently Comment: Rarely Drug use: No Review of Systems Constitutional: Negative for chills and fever. HENT: Positive for congestion, sinus pressure, sinus pain and sore throat. Negative for ear pain. Respiratory: Positive for cough. Negative for shortness of breath. Cardiovascular: Negative for chest pain. Gastrointestinal: Negative for diarrhea and vomiting. Objective BP 144/80 Pulse 76 Temp 36.9 ?C (98.4 ?F) Resp 16 Wt 110.6 kg (243 lb 13.3 oz) LMP 08/28/2020 (Approximate) SpO2 97% BMI 44.60 kg/m? Physical Exam Vitals and nursing note reviewed. Constitutional: General: She is not in acute distress. Appearance: Normal appearance. She is not toxic-appearing. HENT: Right Ear: Tympanic membrane and ear canal normal. Left Ear: Tympanic membrane and ear canal normal. Nose: Mucosal edema and congestion present. Ri (more content not included)...[facility]11-19-2024 History of Present illness Narrative* Martina Winters PA - 04/12/2024 12:53 PM EST This note was created using [employer]. Subjective Fernanda Hernandez is a 44 year old female. HPI 44-year-old female presents for sinus pressure, sinus pain, sore throat x 6 days. Patient states she has had sinus pressure, congestion for about a week. She has had sore throat for about 6 days.She states she has a cough. She denies any chest pain or shortness of breath. She is still able to eat and drink. She reports that she was seen at an urgent care 2 days ago and tested for strep, flu,COVID all of which were negative. She was given a Medrol Dosepak. She states this is not really helping her symptoms. She continues with sore throat, cough, sinus pressure and pain. She has been taking [id number] cough and cold medications as well without much improvement. She has had sick contacts. No other complaint. PAST MEDICAL HISTORY Diagnosis Date Delayed emergence from general anesthesia Fibromyalgia 08/20/2016 GERD (gastroesophageal reflux disease) 03/12/2009 Hiatal hernia Hypoglycemia, unspecified Mental disorder anxiety and depression Migraine without aura 2001 Morbid obesity (HCC) Normal cardiac stress test 01/23/2012 PONV (postoperative nausea and vomiting) Sleep apnea Snoring Unspecified prophylactic or treatment measure PAST SURGICAL HISTORY Procedure Laterality Date COLONOSCOPY BX SINGLE/MULTI 02/04/2024 COLONOSCOPY W/BIOPSY SINGLE/MULTIPLE 12/14/2018 EGD 01/31/2020 ESOPHAGOGASTRODUODENOSCOPY TRANSORAL DIAGNOSTIC 04/11/2005 EGD ESOPHAGOGASTRODUODENOSCOPY TRANSORAL DIAGNOSTIC 03/06/2017 EGD GASTRIC BYPASS, TATI-EN-Y 11/08/2020 w/ Lap hiatal hernia repair LAP REPAIR, PARAESOPHAGEAL HIATAL HERNIA 11/08/2020 LAPAROSCOPY SURG CHOLECYSTECTOMY 03/21/2016 REDUCTION OF LARGE BREAST 2014 TONSILLECTOMY & ADENOIDECTOMY AGE 11/> 2002 DR. EASTMAN ALLERGIES Aciphex [Rabeprazole Sodium], Entex Pse [Pseudoephedrine-Guaifenesin], Nexium [Esomeprazole Magnesium], Prevacid [Lansoprazole], Prilosec [Omeprazole], Sulfa (Sulfonamide Antibiotics), and Wellbutrin [Bupropion Hcl] MEDICATIONS methylPREDNISolone (MEDROL DOSE-PACK) 4 mg Dose-Pack DULoxetine (CYMBALTA) 30 mg capsule Take 1 capsule by mouth once daily. norgestimate 0.25 mg-ethinyl estradiol 35 mcg (TAMARA) 0.25-35 mg-mcg per tablet Take 1 tablet by mouth once daily. Take active pills only. No inactive week. lamoTRIgine (LAMICTAL) 200 mg tablet Take 1 tablet by mouth daily at bedtime. MAGNESIUM GLYCINATE ORAL Take 200 mg by mouth once daily. cyclobenzaprine (FLEXERIL) 10 mg tablet Take 1 tablet by mouth three times a day as needed for muscle spasm. meclizine (ANTIVERT) 25 mg tab Take 1 tablet by mouth three times a day as needed (vertigo). ondansetron orally disintegrating (ZOFRAN ODT) 4 mg disintegrating tablet Take 1 tablet by mouth every 6 hours as needed for nausea/vomiting. gabapentin (NEURONTIN) 100 mg capsule Take 1 capsule by mouth three times a day for 90 days. Multivitamin capsule Take 1 capsule by mouth once daily. BIOTIN, BULK, MISC cholecalciferol, vitamin D3, (VITAMIN D3 ORAL) Take by mouth. ascorbic acid (VITAMIN C ORAL) Take by mouth. FAMILY HISTORY Problem Relation Age of Onset Arthritis Mother Diabetes Mother Headache Father Lipids Father Headache Sister Diabetes Maternal Grandfather Stroke Maternal Grandfather Alcohol/Drug Paternal Grandmother ETOH Alcohol/Drug Paternal Grandfather ETOH Cancer Paternal Grandfather LUNG Alcohol/Drug Paternal Aunt ETOH Alcohol/Drug Paternal Uncle ETOH Cancer Paternal Uncle LUNG Social History Tobacco Use Smoking status: Former Current packs/day: 0.00 Average packs/day: 0.5 packs/day for 12.0 years (6.0 ttl pk-yrs) Types: Cigarettes Start date: 07/22/2001 Quit date: 07/22/2013 Years since quittin.7 Smokeless tobacco: Never Vaping Use Vaping status: Never Used Substance Use Topics Alcohol use: Not Currently Comment: Rarely Drug use: No Review of Systems Constitutional: Negative for chills and fever. HENT: Positive for congestion, sinus pressure, sinus pain and sore throat. Negative for ear pain. Respiratory: Positive for cough. Negative for shortness of breath. Cardiovascular: Negative for chest pain. Gastrointestinal: Negative for diarrhea and vomiting. Objective BP 144/80 Pulse 76 Temp 36.9 C (98.4 F) Resp 16 Wt 110.6 kg (243 lb 13.3 oz) LMP 08/28/2020 (Approximate) SpO2 97% BMI 44.60 kg/m Physical Exam Vitals and nursing note reviewed. Constitutional: General: She is not in acute distress. Appearance: Normal appearance. She is not toxic-appearing. HENT: Right Ear: Tympanic membrane and ear canal normal. Left Ear: Tympanic membrane and ear canal normal. Nose: Mucosal edema and congestion present. Right Sinus: Maxillary sinus tenderness present. Left Sinus: Maxillary sinus tenderness present. Mouth/Throat: Mouth: Mucous membranes are moist. Pharynx: Uvula midline. Posterior oropharyngeal erythema present. Tonsils: 0 on the right. 0 on the left. Eyes: Conjunctiva/sclera: Conjunctivae normal. Cardiovascular: Rate and Rhythm: Normal rate and regular rhythm. Pulmonary: Effort: Pulmonary effort is normal. Breath sounds: Rhonchi present. Skin: General: Skin is warm and dry. Neurological: Mental Status: She is alert. Assessment and Plan ASSESSMENT/PLAN: 1. Sinobronchitis - ICD9: 473.9, 490, ICD10: J32.9, J40 (primary diagnosis) - Will begin treatment with Doxycycline - The patient should also be given OTC decongestants prn for the first 5-7 days of treatment. - Supportive care with plenty of fluids, rest, and analgesia prn. 2. Sore throat - ICD9: 462, ICD10: J02.9 - suspect viral -Strep test x 2 days ago negative. Patient has history of tonsillectomy. Throat does not appear consistent with strep. -Treat as above for sinobronchitis with doxycycline. - Discussed supportive care treatment with fluids, rest and analgesia. - The patient may also use warm salt water gargles, throat lozenges and/or OTC throat spray as needed. Diagnosis and treatment plan were discussed and questions were answered to the patient's satisfaction. Pt acknowledged understanding of concepts and follow up plan. Specific signs and symptoms that would indicate the need for higher level of care were discussed in detail warranting prompt ER evaluation. OG Cervantes documented in [facility]24 NoteHNO ID: [id number] Author: ?, ?, ? Service: ? Author Type: ? Type: Progress Notes Filed: 04/07/2024 13:40 Note Text: POPULATION HEALTH NAVIGATION OUTREACH Action/FYI RP Patient Outreach - Left voicemail for patient to call back to schedule Provider ordered Follow up in Behavioral Health. (Please see Socratic order dated for (02/01/2024). Any agent can assist with scheduling. Reason for Outreach Care Gap/HCC or Scheduling Wellness Visits Care Gaps due: Follow-up Appointment Patient Contacted: lvm Patient identified by name and : No Navigation Signature: Fanta Webb [facility] April 07, 2024 1:39 [facility]11-14-2024 History of Present illness Narrative* Fanta Martinez - 04/07/2024 1:37 PM EST POPULATION HEALTH NAVIGATION OUTREACH Action/FYI RP Patient Outreach - Left voicemail for patient to call back to schedule Provider ordered Follow up in Behavioral Health. (Please see Socratic order dated for (02/01/2024). Any agent can assist with scheduling. Reason for Outreach Care Gap/HCC or Scheduling Wellness Visits Care Gaps due: Follow-up Appointment Patient Contacted: lvm Patient identified by name and : No Navigation Signature: Fanta Aguilar April 07, 2024 1:39 PM documented in this encounterMer[facility]11-14-2024 NotePatient Outreach ([facility]) DAVIDFERNANDA S ([id number]) 1980 F Date Time Provider Department 04/07/24 NO PCP [facility] During your visit today, we recorded the following information about you: Fanta Martinez 04/07/2024 1:40 PM Signed POPULATION HEALTH NAVIGATION OUTREACH Action/FYI RP Patient Outreach - Left voicemail for patient to call back to schedule Provider ordered Follow up in Behavioral Health. (Please see Epic order dated for (02/01/2024). Any agent can assist with scheduling. Reason for Outreach Care Gap/HCC or Scheduling Wellness Visits Care Gaps due: Follow-up Appointment Patient Contacted: lvm Patient identified by name and : No Navigation Signature: Fanta Aguilar April 07, 2024 1:39 PM Allergies As of Date: 04/07/2024 Noted Allergy Reaction ACIPHEX (RABEPRAZOLE SODIUM) 07/09/2016 2 - Rash ENTEX PSE (PSEUDOEPHEDRINE-GUAIFE*03/06/2005 Comments: INSOMNIA NEXIUM (ESOMEPRAZOLE MAGNESIUM) 07/11/2016 14 - Other: See Comments Comments: Made acid reflux worse PREVACID (LANSOPRAZOLE) 03/06/2005 Comments: HEADACHE PRILOSEC (OMEPRAZOLE) 03/06/2005 Comments: HEADACHE SULFA (SULFONAMIDE ANTIBIOTICS) 03/06/2005 2 - Rash WELLBUTRIN (BUPROPION HCL) 05/08/2014 8 - GI Upset Date Reviewed: 02/15/2024 Reviewed by: Ashlee Lee APRN.AGENCY OWNER - Fully Assessed Prescriptions as of 04/07/2024 - DULoxetine (CYMBALTA) 30 mg capsule Take 1 capsule by mouth once daily. - norgestimate 0.25 mg-ethinyl estradiol 35 mcg (TAMARA) 0.25-35 mg-mcg per tablet Take 1 tablet by mouth once daily. Take active pills only. No inactive week. - lamoTRIgine (LAMICTAL) 200 mg tablet Take 1 tablet by mouth daily at bedtime. - MAGNESIUM GLYCINATE ORAL Take 200 mg by mouth once daily. - cyclobenzaprine (FLEXERIL) 10 mg tablet Take 1 tablet by mouth three times a day as needed for muscle spasm. - meclizine (ANTIVERT) 25 mg tab Take 1 tablet by mouth three times a day as needed (vertigo). - ondansetron orally disintegrating (ZOFRAN ODT) 4 mg disintegrating tablet Take 1 tablet by mouth every 6 hours as needed for nausea/vomiting. - gabapentin (NEURONTIN) 100 mg capsule Take 1 capsule by mouth three times a day for 90 days. - Multivitamin capsule Take 1 capsule by mouth once daily. - BIOTIN, BULK, MISC - cholecalciferol, vitamin D3, (VITAMIN D3 ORAL) Take by mouth. - ascorbic acid (VITAMIN C ORAL) Take by mouth. Meds Comments as of 07/16/2007: All medications have been reviewed July 16, 2007 Cher Andre Rn Problem List As Of Date 04/07/2024 Noted Resolved Abdominal pain, epigastric [R10.13] 04/02/2005 03/12/2015 Acute gastritis without mention of hemorrhage [*04/11/2005 05/07/2015 Adjustment disorder with depressed mood [F43.21]02/02/2007 09/15/2019 DECREASED MOVMT-ANTEPARTUM [O36.8190] 01/20/2008 05/12/2008 Carbuncle and furuncle of trunk [L02.239, L02.2*05/12/2008 03/12/2015 GERD (gastroesophageal reflux disease) [K21.9] 03/12/2009 Lumbago [M54.50] 07/26/2009 Breakthrough bleeding with IUD [N92.1, Z97.5] 03/04/2012 03/18/2013 IUD migration [T83.32XA] 03/04/2012 03/18/2013 Tobacco abuse [Z72.0] 04/13/2012 07/22/2017 Unspecified prophylactic or treatment measure [* 03/12/2015 Morbid obesity (HCC) [E66.01] 03/14/2016 Fibromyalgia [M79.7] 08/20/2016 Paroxysmal hemicrania, 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] 08/20/2016 Cervical spinal stenosis [M48.02] 02/26/2017 Foraminal stenosis of cervical region [M48.02] 02/26/2017 Diarrhea [R19.7] 01/25/2019 Cervicothoracic somatic dysfunction [M99.01] 01/25/2019 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*06/09/2019 11/21/2021 Panic disorder without agoraphobia [F41.0] 06/09/2019 11/21/2021 Anxiety disorder [F41.9] 09/15/2019 Polypharmacy [Z79.899] 09/23/2019 [place] (obstructive sleep apnea) [G47.33] 12/28/2019 Acute pain of left shoulder [M25.512] 04/23/2020 Hiatal hernia [K44.9] 11/09/2020 11/09/2020 Major depressive disorder, recurrent episode, m*11/21/2021 Occult blood positive stool [R19.5] 02/04/2024 Encounter Status:Closed by FANTA MARTINEZ on 04/07/24[facility]10-22-2024 Telephone encounter Note* Telephone Encounter - Phyllis Beth MA - 03/15/2024 1:15 PM EDT Printed Records release from scanning for review to see what documentation they are requesting. Per Records release they are requesting all records in regards to spine, neck and back issues. Willroute to [employer] to release information. Will update pt of this via mBlox. Phyllis Beth MA [facility]10-22-2024 Miscellaneous Notes* Telephone Encounter - Phyllis Beth MA - 03/15/2024 1:15 PM EDT Printed Records release from scanning for review to see what documentation they are requesting. Per Records release they are requesting all records in regards to spine, neck and back issues. Willroute to [employer] to release information. Will update pt of this via mBlox. Phyllis Beth MA * Telephone Encounter - Judah Mobley MD - 03/15/2024 12:42 PM EDT Needs to have records sent if not done. * Telephone Encounter - Phyllis Beth MA - 03/15/2024 9:42 AM EDT Can anyone advise if anything has been sent to Pain Mgmt? We did receive a request for records, that was scanned in on 02/04/24. We are not the ordering Provider of the MRI. Phyllis Beth MA documented in this encounterMer[facility]10-22-2024 Telephone encounter Note * Telephone Encounter - Judah Mobley MD - 03/15/2024 12:42 PM EDT Needs to have records sent if not done. [facility] Work Phone: [phone]) 792-660910-22-2024 Telephone encounter Note* Telephone Encounter - Phyllis Beth MA - 03/15/2024 9:42 AM EDT Can anyone advise if anything has been sent to Pain Mgmt? We did receive a request for records, that was scanned in on 02/04/24. We are not the ordering Provider of the MRI. Phyllis Beth MA [facility]10-09-2024 Telephone encounter Note* Telephone Encounter - Bev Ortega MA - 03/02/2024 7:55 AM EDT Prescription Refill Information The patient has been identified by name and date of : Yes Caregiver verified no other encounters exist for this prescription request: Yes Caregiver confirmed with patient/requestor that no other refills are due, in the near future, with this provider at this time: Yes The last office visit in the department: 02/01/2024 Does the patient have a future office visit with this provider/department: No Requested Prescriptions Pending Prescriptions Disp Refills DULoxetine (CYMBALTA) 30 mg capsule 30 capsule 0 Sig: Take 1 capsule by mouth once daily. Bev Ortega MA March 02, 2024 7:55 AM [facility]10-09-2024 Miscellaneous Notes* Telephone Encounter - Bev Ortega MA - 03/02/2024 7:55 AM EDT Prescription Refill Information The patient has been identified by name and date of : Yes Caregiver verified no other encounters exist for this prescription request: Yes Caregiver confirmed with patient/requestor that no other refills are due, in the near future, with this provider at this time: Yes The last office visit in the department: 02/01/2024 Does the patient have a future office visit with this provider/department: No Requested Prescriptions Pending Prescriptions Disp Refills DULoxetine (CYMBALTA) 30 mg capsule 30 capsule 0 Sig: Take 1 capsule by mouth once daily. Bev Ortega MA March 02, 2024 7:55 AM documented in this encounterMer[facility]10-02-2024 NoteHNO ID: [id number] Author: DAVON DOWNS APRN.CNP Service: ? Author Type: Nurse Practitioner Type: Progress Notes Filed: 02/24/2024 13:59 Note Text: No showUk [facility]10-02-2024 History of Present illness Narrative * Davon Downs APRN.CNP - 02/24/2024 1:58 PM EDT No show documented in this encounterMercy [facility]09-23-2024 History of Present illness Narrative* Ashlee Lee APRN.CNP - 02/15/2024 9:30 AM EDT FOLLOW UP VISIT - ENDOSCOPY Fernanda Hernandez 1980 [id number] REFERRING PHYSICIAN: No referring provider defined for this encounter. Fernanda Hernandez is a patient I am following for positive iFOBT. Dr. Gonzalez performed lower endoscopy on 02/04/24. Findings: The colon cleansing preparation was suboptimal, such that lesions 1 cm smaller may be missed. Therewas no evidence of any masses, polyps, or lesions in the right colon. Because the patient's complaint throughout the colon, random mucosal biopsies were taken using cold grasper forceps. There was noevidence of any masses, polyps, lesions in the right colon. There was no evidence of any masses, polyps, or lesions in transverse colon. There was no evidence of any masses, polyps, or lesions in theleft colon. There was no evidence of any masses, polyps, or lesions in the sigmoid colon. There wasno evidence of any masses or polyps in the rectum. Retroflexed view in the rectum revealed hemorrhoids, but no active inflammation or bleeding. Digital examination of the anal canal revealed no palpable masses. PATHOLOGY FINAL DIAGNOSIS A. Colon, random biopsies: - Benign colonic mucosa with focal features suggesting mild melanosis coli. Can be caused by anthraquinone, such as senna, aloe, rhubarb, and frangula The patient notes no complaints since the procedure. - Diarrhea has resolved. VITALS: There were no vitals taken for this visit. General: patient is alert, cooperative, pleasant and in no acute distress On examination, the abdomen is benign. Assessment ASSESSMENT/PLAN: 1. Diarrhea, unspecified type - ICD9: 787.91, ICD10: R19.7 The operative findings and pathology report were reviewed with the patient, and the patient has hadthe opportunity to ask questions and have questions answered. If the patient notes any problems or changes in bowel function, the patient should contact me immediately. Otherwise I recommend follow up endoscopy in 10 years. updated and recall letter generated. Discussed treatment plan and patient voices understanding. Patient's questions answered appropriately. Medications and potential side effects were discussed and patient voices understanding. Return to the office as scheduled or as needed for worsening/no improvement. Ashlee Lee APRN.AGENCY OWNER documented in this encounterMercy [facility] Hospital09-23-2024 NoteHNO ID: [id number] Author: ASHLEE LEE APRN.[facility] Service: ? Author Type: Nurse Practitioner Type: Progress Notes Filed: 02/15/2024 09:42 Note Text: FOLLOW UP VISIT - ENDOSCOPY Fernanda Hernandez 1980 [id number] REFERRING PHYSICIAN: No referring provider defined for this encounter. Fernanda Hernandez is a patient I am following for positive iFOBT. Dr. Gonzalez performed lower endoscopy on 02/04/24. Findings: The colon cleansing preparation was suboptimal, such that lesions 1 cm smaller may be missed. There was no evidence of any masses, polyps, or lesions in the right colon. Because the patient's complaint throughout the colon, random mucosal biopsies were taken using cold grasper forceps. There was no evidence of any masses, polyps, lesions in the right colon. There was no evidence of any masses, polyps, or lesions in transverse colon. There was no evidence of any masses, polyps, or lesions in the left colon. There was no evidence of any masses, polyps, or lesions in the sigmoid colon. There was no evidence of any masses or polyps in the rectum. Retroflexed view in the rectum revealed hemorrhoids, but no active inflammation or bleeding. Digital examination of the anal canal revealed no palpable masses. PATHOLOGY FINAL DIAGNOSIS A. Colon, random biopsies: - Benign colonic mucosa with focal features suggesting mild melanosis coli. Can be caused by anthraquinone, such as senna, aloe, rhubarb, and frangula The patient notes no complaints since the procedure. - Diarrhea has resolved. VITALS: There were no vitals taken for this visit. General: patient is alert, cooperative, pleasant and in no acute distress On examination, the abdomen is benign. Assessment ASSESSMENT/PLAN: 1. Diarrhea, unspecified type - ICD9: 787.91, ICD10: R19.7 The operative findings and pathology report were reviewed with the patient, and the patient has had the opportunity to ask questions and have questions answered. If the patient notes any problems or changes in bowel function, the patient should contact me immediately. Otherwise I recommend follow up endoscopy in 10 years. HM updated and recall letter generated. Discussed treatment plan and patient voices understanding. Patient's questions answered appropriately. Medications and potential side effects were discussed and patient voices understanding. Return to the office as scheduled or as needed for worsening/no improvement. Ashlee Lee APRN.CNPUk Healthcare09-16-2024 NoteHNO ID: [id number] Author: DEBORAH WHITTAKER APRN.AGENCY OWNER Service: ? Author Type: Nurse Practitioner Type: Progress Notes Filed: 02/08/2024 10:05 Note Text: Statistical Clerk offered: Patient declinesDiamond Michael is a 43 year old who presents for an annual gynecologic exam without complaints. Menses: no menses - continuous OCPs. Contraception: combined hormonal contraceptives HPV vaccine: No Last Pap: 02/13/2023 normal HPV: 02/07/2023 negative History of abnormal pap: Yes Last mammogram: 2023normal Sexually active: No OB History T0 L1 SAB0 IAB0 Ectopic0 Multiple0 Live Births0 Infant Babysitter History LMP: 08/28/2020 (Approximate), Drug Induced Amenorrhea Age at Menarche: Age at First : Age at Menopause: Infant Babysitter History Comments: Sexual Activity: Not Currently; Male Contraception: Pill PAST MEDICAL HISTORY Diagnosis Date Delayed emergence from general anesthesia Fibromyalgia 08/20/2016 GERD (gastroesophageal reflux disease) 03/12/2009 Hiatal hernia Hypoglycemia, unspecified Mental disorder anxiety and depression Migraine without aura 2001 Morbid obesity (HCC) Normal cardiac stress test 01/23/2012 PONV (postoperative nausea and vomiting) Sleep apnea Snoring Unspecified prophylactic or treatment measure PAST SURGICAL HISTORY Procedure Laterality Date COLONOSCOPY W/BIOPSY SINGLE/MULTIPLE 12/14/2018 EGD 01/31/2020 ESOPHAGOGASTRODUODENOSCOPY TRANSORAL DIAGNOSTIC 04/11/2005 EGD ESOPHAGOGASTRODUODENOSCOPY TRANSORAL DIAGNOSTIC 03/06/2017 EGD GASTRIC BYPASS, TATI-EN-Y 11/08/2020 w/ Lap hiatal hernia repair LAP REPAIR, PARAESOPHAGEAL HIATAL HERNIA 11/08/2020 LAPAROSCOPY SURG CHOLECYSTECTOMY 03/21/2016 REDUCTION OF LARGE BREAST 2014 TONSILLECTOMY AND ADENOIDECTOMY AGE 11/> 2002 DR. EASTMAN FAMILY HISTORY Problem Relation Age of Onset Arthritis Mother Diabetes Mother Headache Father Lipids Father Headache Sister Diabetes Maternal Grandfather Stroke Maternal Grandfather Alcohol/Drug Paternal Grandmother ETOH Alcohol/Drug Paternal Grandfather ETOH Cancer Paternal Grandfather LUNG Alcohol/Drug Paternal Aunt ETOH Alcohol/Drug Paternal Uncle ETOH Cancer Paternal Uncle LUNG SOCIAL HISTORY Social History Tobacco Use Smoking status: Former Current packs/day: 0.00 Average packs/day: 0.5 packs/day for 12.0 years (6.0 ttl pk-yrs) Types: Cigarettes Start date: 07/22/2001 Quit date: 07/22/2013 Years since quittin.5 Smokeless tobacco: Never Vaping Use Vaping status: Never Used Substance Use Topics Alcohol use: Not Currently Comment: Rarely Drug use: No REVIEW OF SYSTEMS Abdomen: No abdominal pain, nausea, vomiting, or constipation. No bloating, early satiety, indigestion, or increased flatulence. +diarrhea Bladder: No dysuria, gross hematuria, urinary frequency, urinary urgency, or incontinence. Breast: No breast lumps, nipple d/c, overlying skin changes, redness or skin retraction. Allergies and current medication updated:Yes SENSITIVE EXAM: The sensitive examination was discussed with the Patient or Patient's Authorized Door Frame Builder. As applicable, any other physician, advance practice provider, medical student, or other health professional student that will be observing or involved in the sensitive examination for educational or training purposes was discussed with the Patient or Authorized Door Frame Builder. The Patient or Authorized Door Frame Builder has agreed to proceed with the sensitive examination. (Sensitive examination includes inspection and/or palpation of the breasts, pelvis, prostate and anorectal regions). EXAM: BP 130/76 Ht 5' 2 (1.58m) Wt 239 lb (108.4kg) LMP 08/28/2020 BMI 43.70 kg/(m2). GENERAL: pleasant, female in no apparent distress HEENT: Normocephalic, atraumatic, mucus membranes moist, and no lesions NECK: Supple, full range of motion, no adenopathy, and thyroid normal DERMATOLOGY: Normal, without lesions, non-icteric, and non-hirsute BREAST: soft, non-tender, symmetric, no dominant mass, normal nipple-areolar complex, no lymphadenopathy, and no nipple discharge CHEST: Normal inspiratory effort ABDOMEN: soft, non-tender, and no masses PELVIC: external genitalia normal, normal Bartholin's glands, urethra, [place]'s glands, no vulvar lesions, no cervical lesions, good vaginal support, physiologic discharge present, normal appearing perineal body and perianal region BIMANUAL: uterus normal size, shape and consistency, no adnexal masses, and non-tender RECTOVAGINAL: deferred. NEURO: alert and oriented x3,exam grossly non-focal EXTREMITIES: normal ASSESSMENT/PLAN: 1) Health maintenance: Pap/HPV up to date. Mammogram up to date . Nutrition, exercise and routine health maintenance exams reviewed. Calcium/Vitamin D supplementation information provided. 2) Contraception: combined hormonal contraceptives. Contraceptive options reviewe (more content not included)...[facility]09-16-2024 History of Present illness Narrative* Deborah Whittaker APRN.AGENCY OWNER - 02/08/2024 9:36 AM EDT Statistical Clerk offered: Patient declines. Fernanda is a 43 year old who presents for an annual gynecologic exam without complaints. Menses: no menses - continuous OCPs. Contraception: combined hormonal contraceptives HPV vaccine: No Last Pap: 02/13/2023 normal HPV: 02/07/2023 negative History of abnormal pap: Yes Last mammogram: 2023normal Sexually active: No OB History T0 L1 SAB0 IAB0 Ectopic0 Multiple0 Live Births0 Infant Babysitter History LMP: 08/28/2020 (Approximate), Drug Induced Amenorrhea Age at Menarche: Age at First : Age at Menopause: Infant Babysitter History Comments: Sexual Activity: Not Currently; Male Contraception: Pill PAST MEDICAL HISTORY Diagnosis Date Delayed emergence from general anesthesia Fibromyalgia 08/20/2016 GERD (gastroesophageal reflux disease) 03/12/2009 Hiatal hernia Hypoglycemia, unspecified Mental disorder anxiety and depression Migraine without aura 2001 Morbid obesity (HCC) Normal cardiac stress test 01/23/2012 PONV (postoperative nausea and vomiting) Sleep apnea Snoring Unspecified prophylactic or treatment measure PAST SURGICAL HISTORY Procedure Laterality Date COLONOSCOPY W/BIOPSY SINGLE/MULTIPLE 12/14/2018 EGD 01/31/2020 ESOPHAGOGASTRODUODENOSCOPY TRANSORAL DIAGNOSTIC 04/11/2005 EGD ESOPHAGOGASTRODUODENOSCOPY TRANSORAL DIAGNOSTIC 03/06/2017 EGD GASTRIC BYPASS, TATI-EN-Y 11/08/2020 w/ Lap hiatal hernia repair LAP REPAIR, PARAESOPHAGEAL HIATAL HERNIA 11/08/2020 LAPAROSCOPY SURG CHOLECYSTECTOMY 03/21/2016 REDUCTION OF LARGE BREAST 2014 TONSILLECTOMY & ADENOIDECTOMY AGE 11/> 2002 DR. EASTMAN FAMILY HISTORY Problem Relation Age of Onset Arthritis Mother Diabetes Mother Headache Father Lipids Father Headache Sister Diabetes Maternal Grandfather Stroke Maternal Grandfather Alcohol/Drug Paternal Grandmother ETOH Alcohol/Drug Paternal Grandfather ETOH Cancer Paternal Grandfather LUNG Alcohol/Drug Paternal Aunt ETOH Alcohol/Drug Paternal Uncle ETOH Cancer Paternal Uncle LUNG SOCIAL HISTORY Social History Tobacco Use Smoking status: Former Current packs/day: 0.00 Average packs/day: 0.5 packs/day for 12.0 years (6.0 ttl pk-yrs) Types: Cigarettes Start date: 07/22/2001 Quit date: 07/22/2013 Years since quittin.5 Smokeless tobacco: Never Vaping Use Vaping status: Never Used Substance Use Topics Alcohol use: Not Currently Comment: Rarely Drug use: No REVIEW OF SYSTEMS Abdomen: No abdominal pain, nausea, vomiting, or constipation. No bloating, early satiety, indigestion, or increased flatulence. +diarrhea Bladder: No dysuria, gross hematuria, urinary frequency, urinary urgency, or incontinence. Breast: No breast lumps, nipple d/c, overlying skin changes, redness or skin retraction. Allergies and current medication updated:Yes SENSITIVE EXAM: The sensitive examination was discussed with the Patient or Patient's Authorized Door Frame Builder. As applicable, any other physician, advance practice provider, medical student, or other health professional student that will be observing or involved in the sensitive examination for educational or training purposes was discussed with the Patient or Authorized Door Frame Builder. The Patient or Authorized Door Frame Builder has agreed to proceed with the sensitive examination. (Sensitive examination includes inspection and/or palpation of the breasts, pelvis, prostate and anorectal regions). EXAM: BP 130/76 Ht 5' 2 (1.58m) Wt 239 lb (108.4kg) LMP 08/28/2020 BMI 43.70 kg/(m^2). GENERAL: pleasant, female in no apparent distress HEENT: Normocephalic, atraumatic, mucus membranes moist, and no lesions NECK: Supple, full range of motion, no adenopathy, and thyroid normal DERMATOLOGY: Normal, without lesions, non-icteric, and non-hirsute BREAST: soft, non-tender, symmetric, no dominant mass, normal nipple-areolar complex, no lymphadenopathy, and no nipple discharge CHEST: Normal inspiratory effort ABDOMEN: soft, non-tender, and no masses PELVIC: external genitalia normal, normal Bartholin's glands, urethra, [place]'s glands, no vulvar lesions, no cervical lesions, good vaginal support, physiologic discharge present, normal appearing perineal body and perianal region BIMANUAL: uterus normal size, shape and consistency, no adnexal masses, and non-tender RECTOVAGINAL: deferred. NEURO: alert and oriented x3,exam grossly non-focal EXTREMITIES: normal ASSESSMENT/PLAN: 1) Health maintenance: Pap/HPV up to date. Mammogram up to date . Nutrition, exercise and routine health maintenance exams reviewed. Calcium/Vitamin D supplementation information provided. 2) Contraception: combined hormonal contraceptives. Contraceptive options reviewed and information provided. 3) STD screening: NA 4) Follow up one year or sooner as needed Deborah Whittaker APRN.AGENCY OWNER [facility] NoteHNO ID: [id number] Author: JANI LUNA RN Service: ? Author Type: Registered Nurse Type: Nursing Progress Note Filed: 02/04/2024 10:14 Note Text: Patient's abdomen is soft and non tender. Patient voices no complaints.[facility]09-11-2024 Telephone encounter Note* Telephone Encounter - Melisa Barfield MA - 02/03/2024 4:16 PM EDT Patient called in concerned that she started her prep about 6 hours ago and has only had 1 bowel movement at about 3:15 pm and she had to strain to pass. She has been drinking chicken broth, coffee, water and apple cider. Stomach feels full and bloated. I spoke with FREDRICK Reardon in general surgery department. She advised to have patient continue with prep and push fluids. Prep will kick in eventually. She also advised to tell patient to make sure thather bowel movements are clear by morning, if they are not, she will need to contact the hospital and cancel. Patient given all of those instructions and verbalized understanding. [facility]09-[facility] Miscellaneous Notes* Telephone Encounter - Melisa Barfield MA - 02/03/2024 4:16 PM EDT Patient called in concerned that she started her prep about 6 hours ago and has only had 1 bowel movement at about 3:15 pm and she had to strain to pass. She has been drinking chicken broth, coffee, water and apple cider. Stomach feels full and bloated. I spoke with FREDRICK Reardon in general surgery department. She advised to have patient continue with prep and push fluids. Prep will kick in eventually. She also advised to tell patient to make sure thather bowel movements are clear by morning, if they are not, she will need to contact the hospital and cancel. Patient given all of those instructions and verbalized understanding. * Telephone Encounter - Fara Friedman LPN - 02/03/2024 2:00 PM EDT Patient instructed to contact office by [employer] as she began [employer] prep approximately 4 hours ago andhas not yet moved her bowels. Patient was to check if there was any additional instructions. Please advise. Fara Friedman LPN [facility] Telephone encounter Note * Telephone Encounter - Fara Frideman LPN - 02/03/2024 2:00 PM EDT Patient instructed to contact office by [employer] as she began GoLy[employer] prep approximately 4 hours ago andhas not yet moved her bowels. Patient was to check if there was any additional instructions. Please advise. Fara Friedman LPN [facility]09-09-2024 NoteHNO ID: [id number] Author: DAVON DOWNS APRN.AGENCY OWNER Service: ? Author Type: Nurse Practitioner Type: Progress Notes Filed: 02/01/2024 11:00 Note Text: FOLLOW UP - PSYCHIATRIC PROGRESS NOTE Visit Type:Virtual Visit utilizing two-way audio and video for at least a portion of the visit. Consent for virtual visit obtained verbally. Confidentiality limitations with virtual visits reviewed with the patient and guardian, if present, who have accepted the risk verbally prior to proceeding with encounter. I have communicated my name and active licensure. The patient's identity and physical location were verified at the time of this visit. Either the patient or their legal sales account representative has been informed of the risks and benefits of -- and alternatives to -- treatment through a remote evaluation and consents to proceed with the evaluation remotely. Reason for Visit: Outpatient follow-up and safety monitoring of previously prescribed psychiatric medication, psychotherapy or other treatment CC: medication management for depression and anxiety HPI: Fernanda returns for a medication management follow-up appointment. She reports her mood has been ok over the past week. She had felt depressed when she was in severe neck pain a few weeks ago; had been feeling suicidal at the time because the pain was so elevated. She denies si/hi now that the pain is under control. Mood is a lot better. She has noted some increased irritability when the pain was elevated. Sleep is fine and has not been an issue. She reports her weight is back up to 230#; has lost 140# then gained another 30#. She would like lose the weight back,but the weight loss center has told her she will probably level out at this weight. She reports she stopped taking the Abilify several months ago and doesn't remember while she stopped the medications. She did talk with her pcp that suggested trying Cymbalta for her nerve pain and fibromyalgia and today we will stop the Effexor and start Cymbalta. No changes with the Lamictal, reports taking daily as ordered; denies side effects.. Risks and benefits of the medication, including any black box warnings and risk for a rash, were discussed with the patient. Fernanda verbalized understanding to all instructions and is in agreement with the treatment plan; confirmed that she would get to ER if needed for increase symptoms or safety concerns. Interval Progress: Worse PATIENT DATA: Generalized Anxiety Disorder Scale (LIZY-7) 11/21/2021 09/17/2022 04/29/2023 LIZY - 7 SCORES Score 0 2 9 (0-4) minimal anxiety, (5-9) mild anxiety, (10-14) moderate anxiety, (15-21) severe anxiety Patient Health Questionnaire (PHQ-9) 09/17/2022 04/29/2023 02/01/2024 PHQ-9 Score 3 12 5 (0-4) minimal depression, (5-9) mild depression, (10-14) moderate depression, (15-19) moderately severe depression, (20-27) severe depression PROMIS Global Health 09/17/2022 04/29/2023 12/15/2023 PROMIS Global Health - (T-Scores - the mean of general population = 50. Five points is a clinically meaningful difference.) Physical T-Score 50.8 44.9 44.9 Mental T-Score 45.8 41.1 PAST MEDICAL HISTORY No date: Delayed emergence from general anesthesia 08/20/2016: Fibromyalgia 03/12/2009: GERD (gastroesophageal reflux disease) No date: Hiatal hernia No date: Hypoglycemia, unspecified No date: Mental disorder Comment: anxiety and depression 2001: Migraine without aura No date: Morbid obesity (HCC) 01/23/2012: Normal cardiac stress test No date: PONV (postoperative nausea and vomiting) No date: Sleep apnea No date: Snoring No date: Unspecified prophylactic or treatment measure PAST SURGICAL HISTORY 12/14/2018: COLONOSCOPY W/BIOPSY SINGLE/MULTIPLE 01/31/2020: EGD 04/11/2005: ESOPHAGOGASTRODUODENOSCOPY TRANSORAL DIAGNOSTIC Comment: EGD 03/06/2017: ESOPHAGOGASTRODUODENOSCOPY TRANSORAL DIAGNOSTIC Comment: EGD 11/08/2020: GASTRIC BYPASS, TATI-EN-Y Comment: w/ Lap hiatal hernia repair 11/08/2020: LAP REPAIR, PARAESOPHAGEAL HIATAL HERNIA 03/21/2016: LAPAROSCOPY SURG CHOLECYSTECTOMY 2014: REDUCTION OF LARGE BREAST 2003: TONSILLECTOMY AND ADENOIDECTOMY AGE 11/> Comment: DR. EASTMAN Current Outpatient Medications Medication Sig Dispense Refill ARIPiprazole (ABILIFY) 2 mg tablet take 1 tablet by mouth every day 90 tablet 0 MAGNESIUM GLYCINATE ORAL Take 200 mg by mouth once daily. norgestimate 0.25 mg-ethinyl estradiol 35 mcg (TAMARA) 0.25-35 mg-mcg per tablet Take 1 tablet by mouth once daily. Take active pills only. No inactive week. 30 tablet 0 cyclobenzaprine (FLEXERIL) 10 mg tablet Take 1 tablet by mouth three times a day as needed for muscle spasm. 90 tablet 2 meclizine (ANTIVERT) 25 mg tab Take 1 tablet by mouth three times a day as needed (vertigo). 30 tablet 1 lamoTRIgine (LAMICTAL) 200 mg tablet Take 1 tablet by mouth daily at bedtime. 90 tablet 0 ondansetron orally disintegrati (more content not included)...[facility]09-09-2024 History of Present illness Narrative* Davon Downs APRN.[facility] - 02/01/2024 10:34 AM EDT FOLLOW UP - PSYCHIATRIC PROGRESS NOTE Visit Type:Virtual Visit utilizing two-way audio and video for at least a portion of the visit. Consent for virtual visit obtained verbally. Confidentiality limitations with virtual visits reviewed with the patient and guardian, if present, who have accepted the risk verbally prior to proceeding with encounter. I have communicated my name and active licensure. The patient's identity and physical location were verified at the time of this visit. Either the patient or their legal sales account representative has been informed of the risks and benefits of -- and alternatives to -- treatment through a remote evaluation and consents to proceed with the evaluation remotely. Reason for Visit: Outpatient follow-up and safety monitoring of previously prescribed psychiatric medication, psychotherapy or other treatment CC: medication management for depression and anxiety HPI: Fernanda returns for a medication management follow-up appointment. She reports her mood has been ok over the past week. She had felt depressed when she was in severe neck pain a few weeks ago; had been feeling suicidal at the time because the pain was so elevated. She denies si/hi now that the pain is under control. Mood is a lot better. She has noted some increased irritability when the pain was elevated. Sleep is fine and has not been an issue. She reports her weight is back up to 230#; has lost 140# then gained another 30#. She would like lose the weight back,but the weight loss center has told her she will probably levelout at this weight. She reports she stopped taking the Abilify several months ago and doesn't remember while she stopped the medications. She did talk with her pcp that suggested trying Cymbalta for her nerve pain and fibromyalgia and today we will stop the Effexor and start Cymbalta. No changes with the Lamictal, reports taking daily as ordered; denies side effects.. Risks and benefits of the medication, including any black box warnings and risk for a rash, were discussed with the patient. Fernanda verbalized understanding to all instructions and is in agreement with the treatment plan; confirmed that she would get to ER if needed for increase symptoms or safety concerns. Interval Progress: Worse PATIENT DATA: Generalized Anxiety Disorder Scale (LIZY-7) 11/21/2021 09/17/2022 04/29/2023 LIZY - 7 SCORES Score 0 2 9 (0-4) minimal anxiety, (5-9) mild anxiety, (10-14) moderate anxiety, (15-21) severe anxiety Patient Health Questionnaire (PHQ-9) 09/17/2022 04/29/2023 02/01/2024 PHQ-9 Score 3 12 5 (0-4) minimal depression, (5-9) mild depression, (10-14) moderate depression, (15-19) moderately severe depression, (20-27) severe depression PROMIS Global Health 09/17/2022 04/29/2023 12/15/2023 PROMIS Global Health - (T-Scores - the mean of general population = 50. Five points is a clinicallymeaningful difference.) Physical T-Score 50.8 44.9 44.9 Mental T-Score 45.8 41.1 PAST MEDICAL HISTORY No date: Delayed emergence from general anesthesia 08/20/2016: Fibromyalgia 03/12/2009: GERD (gastroesophageal reflux disease) No date: Hiatal hernia No date: Hypoglycemia, unspecified No date: Mental disorder Comment: anxiety and depression 2001: Migraine without aura No date: Morbid obesity (HCC) 01/23/2012: Normal cardiac stress test No date: PONV (postoperative nausea and vomiting) No date: Sleep apnea No date: Snoring No date: Unspecified prophylactic or treatment measure PAST SURGICAL HISTORY 12/14/2018: COLONOSCOPY W/BIOPSY SINGLE/MULTIPLE 01/31/2020: EGD 04/11/2005: ESOPHAGOGASTRODUODENOSCOPY TRANSORAL DIAGNOSTIC Comment: EGD 03/06/2017: ESOPHAGOGASTRODUODENOSCOPY TRANSORAL DIAGNOSTIC Comment: EGD 11/08/2020: GASTRIC BYPASS, TATI-EN-Y Comment: w/ Lap hiatal hernia repair 11/08/2020: LAP REPAIR, PARAESOPHAGEAL HIATAL HERNIA 03/21/2016: LAPAROSCOPY SURG CHOLECYSTECTOMY 2014: REDUCTION OF LARGE BREAST 2003: TONSILLECTOMY & ADENOIDECTOMY AGE 11/> Comment: DR. EASTMAN Current Outpatient Medications Medication Sig Dispense Refill ARIPiprazole (ABILIFY) 2 mg tablet take 1 tablet by mouth every day 90 tablet 0 MAGNESIUM GLYCINATE ORAL Take 200 mg by mouth once daily. norgestimate 0.25 mg-ethinyl estradiol 35 mcg (TAMARA) 0.25-35 mg-mcg per tablet Take 1 tablet by mouth once daily. Take active pills only. No inactive week. 30 tablet 0 cyclobenzaprine (FLEXERIL) 10 mg tablet Take 1 tablet by mouth three times a day as needed for muscle spasm. 90 tablet 2 meclizine (ANTIVERT) 25 mg tab Take 1 tablet by mouth three times a day as needed (vertigo). 30 tablet 1 lamoTRIgine (LAMICTAL) 200 mg tablet Take 1 tablet by mouth daily at bedtime. 90 tablet 0 ondansetron orally disintegrating (ZOFRAN ODT) 4 mg disintegrating tablet Take 1 tablet by mouth every 6 hours as needed for nausea/vomiting. 30 tablet 0 gabapentin (NEURONTIN) 100 mg capsule Take 1 capsule by mouth three times a day for 90 days. 90 capsule 2 venlafaxine (EFFEXOR) 75 mg tablet Take 1 tablet by mouth two times a day. 180 tablet 1 Multivitamin capsule Take 1 capsule by mouth once daily. BIOTIN, BULK, MISC cholecalciferol, vitamin D3, (VITAMIN D3 ORAL) Take by mouth. ascorbic acid (VITAMIN C ORAL) Take by mouth. No current facility-administered medications for this visit. ROS: GENERAL: Negative for malaise, significant weight loss and fever. HEENT: No changes in hearing or vision, no nose bleeds or other nasal problems. RESPIRATORY: Negative for cough, wheezing and shortness of breath. CARDIOVASCULAR: Negative for chest pain, leg swelling and palpitations. GI: Negative for abdominal discomfort, blood in stools or black stools. : Negative for dysuria, frequency and incontinence. MUSCULOSKELETAL: +fibro generalized muscle pain +neck pain has improved, but still aches SKIN: Negative for lesions, rash, and itching. HEMATOLOGY/LYMPHOLOGY Negative for prolonged bleeding, bruising easily, and swollen nodes. ENDOCRINE: Negative for cold or heat intolerance, polyuria, polydipsia and goiter. NEURO: Negative for headaches, syncope, seizures and paralysis. PFSH: see hpi VITAL SIGNS: There were no vitals filed for this visit. MENTAL STATUS EXAM: CONSTITUTIONAL: Well groomed ORIENTATION: Person, Place, Time and Situation MEMORY: Recent intact, Remote intact, Immediate intact CONCENTRATION: Normal MOOD: mild depression,but improved from a few weeks ago AFFECT: restricted,but did smile towards end of appointment SPEECH : Clear & distinct LANGUAGE : Normal ASSOCIATIONS: Intact THOUGHT PROCESS : Logical, Coherent, and Rational PROGRESSION : There was no evidence of disturbance in thought perception or progression. FUND OF KNOWLEDGE : Appropriate and Adequate SUICIDE: None HOMICIDE: None DATA REVIEWED: Electronic medical record DIAGNOSIS: PRIMARY: Mood Disorder Major Depressive Disorder, Recurrent, moderate Secondary : Anxiety Disorder Anxiety Disorder NOS GAF: 60 -60-51 Moderate symptoms or moderate difficulty in social, occupational or school functioning. TREATMENT PLAN: 1. has lost 140# since bariatric surgery last year but gained 30# back 2. stopped Abilify several months ago on her own and doesn't want to take it anymore 3. continue lamictal 200mg at hs; stop if rash develops,to target depressive symptoms 4. stop immediate release Effexor start Cymbalta 30mg one daily to target depression, anxiety and should help with nerve pain (neck pain)and fibromyalgia pain MEDICATION CHANGES: See Treatment Plan Follow Up: 02/23 at 130p I spent a total of 28 minutes on the date of the service which included preparing to see the patient, [id number] patient care, completing clinical documentation, obtaining and/or reviewing separately obtained history, performing a medically appropriate examination, counseling and educating the pat ient/family/caregiver, ordering medications, tests, or procedures, and care coordination (not separately reported). ADD ON PSYCHOTHERAPY CODE : No SIGNATURE: Davon Downs APRN.CNP PATIENT NAME: Fernanda Hernandez DATE: February 01, 2024 TIME: 10:34 AM documented in this encounterCleveland [id number] Telephone encounter Note * Telephone Encounter - Ellie Kwong LPN - 02/01/2024 8:38 AM EDT Spoke with patient confirming today's virtual visit at 10:30 AM. Ellie Kwong LPN [facility]09-09-2024 Miscellaneous Notes* Telephone Encounter - Ellie Kwong LPN - 02/01/2024 8:38 AM EDT Spoke with patient confirming today's virtual visit at 10:30 AM. Ellie Kwong LPN documented in this encounterMer[facility]09-[facility]24 Telephone encounter Note * Telephone Encounter - Cong Kunz LPN - 01/27/2024 4:59 PM EDT These were completed and faxed as requested. [facility]09-04-2024 Miscellaneous Notes* Telephone Encounter - Cong Kunz LPN - 01/27/2024 4:59 PM EDT These were completed and faxed as requested. * Telephone Encounter - Nargis Doyle MA - 01/18/2024 1:27 PM EDT Type of form: FMLA Form received via fax When form is completed, Fax form to [phone] Form has been forwarded to Nurse Practitioner: Anitha Doyle MA documented in this encounterMercy [facility] Hospital09-04-2024 Instructions* Patient Instructions* Ashlee Lee APRN.AGENCY OWNER - 01/27/2024 3:34 PM EDT Images from the original note were not included. Bowel Preparation Instructions for: SuTab IF YOU DO NOT FOLLOW THESE DIRECTIONS, YOUR COLONOSCOPY WILL BE CANCELLED. [place] Instructions: Your bowel must be empty so that your doctor can clearly view your colon. Follow all of the instructions in this handout EXACTLY as they are written. Do NOT eat any solid food the ENTIRE day before your colonoscopy. PURCHASE BOWEL PREPARATION AT YOUR LOCAL PHARMACY (t least 2 weeks before your procedure) Designated Outside Salesman on the Day of your Exam A responsible person MUST be present with you at Check In prior to your colonoscopy and REMAIN in the endoscopy area until you are discharged. You are NOT ALLOWED to drive, take a taxi or bus, or leave the Endoscopy Center ALONE. If you do not have a responsible limb driver (family member or friend) with you to take you home, your exam cannot be done with sedation and will be cancelled. Arrive one hour early for your procedure. Please bring a list of all of your current medications, including any Over-the Counter medications with you. Medications If you take insulin, diabetic medications or blood thinners such as Coumadin (warfarin), Plavix (clopidogrel), Ticlid (ticlopidine hydrochloride), Agrylin (anagrelide), Xarelto (Rivaroxaban), Pradaxa(Dabigatran), Eliquis (Apixaban), and Effient (Prasugrel). You MUST call the doctors who orders those medicines for instructions on altering the dosage before your colonoscopy. All other medications should be taken the day of the exam with a sip of water including ASPIRIN. Five (5) Days Before Your Colonoscopy Do NOT take medicines that stop diarrhea - such as Imodium, Kaopectate, or Pepto Bismol. Do NOT take fiber supplements - such as Metamucil, Citrucel, or Perdiem. Do NOT take products that contain iron - such as multi-vitamins (the label lists what is in the products). 1 03/2021 Bowel Preparation Instructions for: SuTab Three (3) Days Before Your Colonoscopy Do NOT eat high-fiber foods - such as popcorn, beans, seeds (flax, sunflower, quinoa), multigrain bread, nuts, salad/vegetables, or fresh and dried fruit. One (1) Day Before Your Colonoscopy Only drink clear liquids the ENTIRE DAY before your colonoscopy. Do NOT eat any solid foods. Drink at least 8 ounces of clear liquids every hour after waking up. Clear Liquid (NO RED LIQUIDS) DO NOT DRINK Gatorade, Pedialyte or Powerade Clear broth or bouillon Coffee or tea (no milk or non-dairy creamer) Carbonated and non-carbonated soft drinks Ayaz-Aid or other fruit flavored drinks Strained fruit juices (no pulp) Jell-O, popsicles, hard candy Water Alcohol Milk or non-dairy creamers Noodles or vegetables in soup Juice with pulp Liquid you cannot see through Do not use tobacco/vaping products The Bowel preparation tablets will be consumed in two separate parts. Do NOT add ice, sugar or flavorings to the solution. Part 1 When you wake up the day before colonoscopy (Dose 1) (12 tablets) Step 1 - Fill the provided container for 16 ounces of water (up to the fill line). Swallow each of the 12 tablets with a sip of water and drink the entire amount of water over 15 to 20 minutes. Step 2 - Approximately 1 hour after the last tablet is ingested, fill the provided container with 16 ounces of water (up to the fill line), and drink the entire amount over 30 minutes. Step 3 - Approximately 30 minutes after finishing the second container of water, fill the provided container with 16 ounces of water (up to fill line), and drink the entire amount over 30 minutes. Part 2 At 6pm the evening before your colonoscopy (no sooner than 4 hours from starting Dose 1), open the second bottle of 12 tablets. Repeat STEP 1 to STEP 3 from part 1. You may continue to drink clear liquids until 3 hours before your colonoscopy. 2 03/2021 documented in this encounterMercy [facility] Hospital09-04-2024 Telephone encounter Note * Telephone Encounter - Ashlee Lee APRN.CNP - 01/27/2024 3:32 PM EDT SuTab prep ordered per the patient's request. [facility]09-04-2024 Miscellaneous Notes* Telephone Encounter - Ashlee Lee APRN.CNP - 01/27/2024 3:32 PM EDT SuTab prep ordered per the patient's request. documented in this encounterMercy [facility] Hospital08-29-2024 Telephone encounter Note * Telephone Encounter - Ellie Kwong LPN - 01/21/2024 10:08 AM EDT Prescription Refill Information The patient has been identified by name and date of : Yes Caregiver verified no other encounters exist for this prescription request: Yes Caregiver confirmed with patient/requestor that no other refills are due, in the near future, with this provider at this time: Yes The last office visit in the department: 04/29/2023 Does the patient have a future office visit with this provider/department: Yes, 02/01/2024 Requested Prescriptions Pending Prescriptions Disp Refills ARIPiprazole (ABILIFY) 2 mg tablet [Pharmacy Med Name: ARIPIPRAZOLE 2 MG TABLET] 90 tablet 1 Sig: take 1 tablet by mouth every day Ellie Kwong LPN January 21, 2024 10:10 AM [facility]08-29-2024 Miscellaneous Notes* Telephone Encounter - Ellie Kwong LPN - 01/21/2024 10:08 AM EDT Prescription Refill Information The patient has been identified by name and date of : Yes Caregiver verified no other encounters exist for this prescription request: Yes Caregiver confirmed with patient/requestor that no other refills are due, in the near future, with this provider at this time: Yes The last office visit in the department: 04/29/2023 Does the patient have a future office visit with this provider/department: Yes, 02/01/2024 Requested Prescriptions Pending Prescriptions Disp Refills ARIPiprazole (ABILIFY) 2 mg tablet [Pharmacy Med Name: ARIPIPRAZOLE 2 MG TABLET] 90 tablet 1 Sig: take 1 tablet by mouth every day Ellie Kwong LPN January 21, 2024 10:10 AM documented in this encounterMercy [facility] Hospital08-26-2024 Telephone encounter Note * Telephone Encounter - Nargis Doyle MA - 01/18/2024 1:27 PM EDT Type of form: FMLA Form received via fax When form is completed, Fax form to [phone] Form has been forwarded to Nurse Practitioner: Anitha Doyle MA [facility]08-23-2024 Instructions* Patient Instructions* Bettina Fuentes APRN.CNP - 01/15/2024 3:21 PM EDT 1) FMLA paperwork as soon as it arrives 2) Follow up in 3 months documented in this encounterMercy Memorial Hospital08-23-2024 NoteHNO ID: [id number] Author: BETTINA FUENTES APRN.RACHID Service: ? Author Type: Clinical Nurse Specialist Type: Progress Notes Filed: 01/15/2024 15:21 Note Text: This is a 43 year old female who presents today with: Patient presents with: Neck Pain HISTORY OF PRESENT ILLNESS: Fernanda Hernandez is a 43 year old female. Patient presents with: Neck Pain Missing work because of cervical and thoracic pain- upper back. Entire neck under base of skull across trapezius pawan. And down to mid-thoracic. No radicular Sx. Sees pain management for this pain. Sees them at [facility]. Has seen career agent twice a week for this flare. Has seen them for years. 5/10- had medical massage the other day; can get to a 10/10 Pain exacerbated by sitting too long, standing still, walking too long. Also gets dizziness AND vertigo Laying, stooping, bending also hurts Pain medications and muscle relaxants help- the massage helped Usually PA will adjust her but he is on medical leave. She is unable to do her 2 lengthy shift per week. PAST MEDICAL HISTORY: PAST MEDICAL HISTORY No date: Delayed emergence from general anesthesia 08/20/2016: Fibromyalgia 03/12/2009: GERD (gastroesophageal reflux disease) No date: Hiatal hernia No date: Hypoglycemia, unspecified No date: Mental disorder Comment: anxiety and depression 2001: Migraine without aura No date: Morbid obesity (HCC) 01/23/2012: Normal cardiac stress test No date: PONV (postoperative nausea and vomiting) No date: Sleep apnea No date: Snoring No date: Unspecified prophylactic or treatment measure PAST SURGICAL HISTORY 12/14/2018: COLONOSCOPY W/BIOPSY SINGLE/MULTIPLE 01/31/2020: EGD 04/11/2005: ESOPHAGOGASTRODUODENOSCOPY TRANSORAL DIAGNOSTIC Comment: EGD 03/06/2017: ESOPHAGOGASTRODUODENOSCOPY TRANSORAL DIAGNOSTIC Comment: EGD 11/08/2020: GASTRIC BYPASS, TATI-EN-Y Comment: w/ Lap hiatal hernia repair 11/08/2020: LAP REPAIR, PARAESOPHAGEAL HIATAL HERNIA 03/21/2016: LAPAROSCOPY SURG CHOLECYSTECTOMY 2014: REDUCTION OF LARGE BREAST 2003: TONSILLECTOMY AND ADENOIDECTOMY AGE 11/> Comment: DR. EASTMAN ALLERGIES Aciphex [Rabeprazole Sodium], Entex Pse [Pseudoephedrine-Guaifenesin], Nexium [Esomeprazole Magnesium], Prevacid [Lansoprazole], Prilosec [Omeprazole], Sulfa (Sulfonamide Antibiotics), and Wellbutrin [Bupropion Hcl] MEDICATIONS Current Outpatient Medications Medication Sig MAGNESIUM GLYCINATE ORAL Take 200 mg by mouth once daily. norgestimate 0.25 mg-ethinyl estradiol 35 mcg (TAMARA) 0.25-35 mg-mcg per tablet Take 1 tablet by mouth once daily. Take active pills only. No inactive week. cyclobenzaprine (FLEXERIL) 10 mg tablet Take 1 tablet by mouth three times a day as needed for muscle spasm. meclizine (ANTIVERT) 25 mg tab Take 1 tablet by mouth three times a day as needed (vertigo). lamoTRIgine (LAMICTAL) 200 mg tablet Take 1 tablet by mouth daily at bedtime. ondansetron orally disintegrating (ZOFRAN ODT) 4 mg disintegrating tablet Take 1 tablet by mouth every 6 hours as needed for nausea/vomiting. gabapentin (NEURONTIN) 100 mg capsule Take 1 capsule by mouth three times a day for 90 days. venlafaxine (EFFEXOR) 75 mg tablet Take 1 tablet by mouth two times a day. cyclobenzaprine (FLEXERIL) 10 mg tablet Take 1 tablet by mouth three times a day as needed for muscle spasm. Multivitamin capsule Take 1 capsule by mouth once daily. BIOTIN, BULK, MISC cholecalciferol, vitamin D3, (VITAMIN D3 ORAL) Take by mouth. ascorbic acid (VITAMIN C ORAL) Take by mouth. tiZANidine (ZANAFLEX) 4 mg tablet Take 4 mg by mouth every 8 hours as needed. metFORMIN ER (GLUCOPHAGE XR) 500 mg 24 hr tablet Take 4 tablets by mouth daily with dinner. (Patient not taking: Reported on 01/15/2024) iron polysaccharide complex (FERREX-150) 150 mg iron capsule Take 1 capsule by mouth twice daily. (Patient not taking: Reported on 01/15/2024) No current facility-administered medications for this visit. FAMILY HISTORY Problem Relation Age of Onset Arthritis Mother Diabetes Mother Headache Father Lipids Father Headache Sister Diabetes Maternal Grandfather Stroke Maternal Grandfather Alcohol/Drug Paternal Grandmother ETOH Alcohol/Drug Paternal Grandfather ETOH Cancer Paternal Grandfather LUNG Alcohol/Drug Paternal Aunt ETOH Alcohol/Drug Paternal Uncle ETOH Cancer Paternal Uncle LUNG Social History Tobacco Use Smoking status: Former Current packs/day: 0.00 Average packs/day: 0.5 packs/day for 12.0 years (6.0 ttl pk-yrs) Types: Cigarettes Start date: 07/22/2001 Quit date: 07/22/2013 Years since quittin.4 Smokeless tobacco: Never Vaping Use Vaping status: Never Used Substance Use Topics Alcohol use: Yes Comment: Rarely Drug use: No EXAM: BP 120/80 Pulse 92 Resp 16 Wt 109.3 kg (241 lb) LMP (LMP Unknown) SpO2 99% BMI 42.69 kg/m? PHYSICAL EXAM: Physical Exam Vitals reviewed. Co (more content not included)...[facility]08-23-2024 History of Present illness Narrative* Bettina Fuentes APRN.AGENCY OWNER - 01/15/2024 2:57 PM EDT This is a 43 year old female who presents today with: Patient presents with: Neck Pain HISTORY OF PRESENT ILLNESS: Fernanda Hernandez is a 43 year old female. Patient presents with: Neck Pain Missing work because of cervical and thoracic pain- upper back. Entire neck under base of skull across trapezius pawan. And down to mid-thoracic. No radicular Sx. Sees pain management for this pain. Sees them at [facility]. Has seen career agent twice a week for this flare. Has seen them for years. 5/10- had medical massage the other day; can get to a 10/10 Pain exacerbated by sitting too long, standing still, walking too long. Also gets dizziness & vertigo Laying, stooping, bending also hurts Pain medications and muscle relaxants help- the massage helped Usually PA will adjust her but he is on medical leave. She is unable to do her 2 lengthy shift per week. PAST MEDICAL HISTORY: PAST MEDICAL HISTORY No date: Delayed emergence from general anesthesia 08/20/2016: Fibromyalgia 03/12/2009: GERD (gastroesophageal reflux disease) No date: Hiatal hernia No date: Hypoglycemia, unspecified No date: Mental disorder Comment: anxiety and depression 2001: Migraine without aura No date: Morbid obesity (HCC) 01/23/2012: Normal cardiac stress test No date: PONV (postoperative nausea and vomiting) No date: Sleep apnea No date: Snoring No date: Unspecified prophylactic or treatment measure PAST SURGICAL HISTORY 12/14/2018: COLONOSCOPY W/BIOPSY SINGLE/MULTIPLE 01/31/2020: EGD 04/11/2005: ESOPHAGOGASTRODUODENOSCOPY TRANSORAL DIAGNOSTIC Comment: EGD 03/06/2017: ESOPHAGOGASTRODUODENOSCOPY TRANSORAL DIAGNOSTIC Comment: EGD 11/08/2020: GASTRIC BYPASS, TATI-EN-Y Comment: w/ Lap hiatal hernia repair 11/08/2020: LAP REPAIR, PARAESOPHAGEAL HIATAL HERNIA 03/21/2016: LAPAROSCOPY SURG CHOLECYSTECTOMY 2014: REDUCTION OF LARGE BREAST 2003: TONSILLECTOMY & ADENOIDECTOMY AGE 11/> Comment: DR. EASTMAN ALLERGIES Aciphex [Rabeprazole Sodium], Entex Pse [Pseudoephedrine-Guaifenesin], Nexium [Esomeprazole Magnesium], Prevacid [Lansoprazole], Prilosec [Omeprazole], Sulfa (Sulfonamide Antibiotics), and Wellbutrin [Bupropion Hcl] MEDICATIONS Current Outpatient Medications Medication Sig MAGNESIUM GLYCINATE ORAL Take 200 mg by mouth once daily. norgestimate 0.25 mg-ethinyl estradiol 35 mcg (TAMARA) 0.25-35 mg-mcg per tablet Take 1 tablet by mouth once daily. Take active pills only. No inactive week. cyclobenzaprine (FLEXERIL) 10 mg tablet Take 1 tablet by mouth three times a day as needed for muscle spasm. meclizine (ANTIVERT) 25 mg tab Take 1 tablet by mouth three times a day as needed (vertigo). lamoTRIgine (LAMICTAL) 200 mg tablet Take 1 tablet by mouth daily at bedtime. ondansetron orally disintegrating (ZOFRAN ODT) 4 mg disintegrating tablet Take 1 tablet by mouth every 6 hours as needed for nausea/vomiting. gabapentin (NEURONTIN) 100 mg capsule Take 1 capsule by mouth three times a day for 90 days. venlafaxine (EFFEXOR) 75 mg tablet Take 1 tablet by mouth two times a day. cyclobenzaprine (FLEXERIL) 10 mg tablet Take 1 tablet by mouth three times a day as needed for muscle spasm. Multivitamin capsule Take 1 capsule by mouth once daily. BIOTIN, BULK, MISC cholecalciferol, vitamin D3, (VITAMIN D3 ORAL) Take by mouth. ascorbic acid (VITAMIN C ORAL) Take by mouth. tiZANidine (ZANAFLEX) 4 mg tablet Take 4 mg by mouth every 8 hours as needed. metFORMIN ER (GLUCOPHAGE XR) 500 mg 24 hr tablet Take 4 tablets by mouth daily with dinner. (Patient not taking: Reported on 01/15/2024) iron polysaccharide complex (FERREX-150) 150 mg iron capsule Take 1 capsule by mouth twice daily. (Patient not taking: Reported on 01/15/2024) No current facility-administered medications for this visit. FAMILY HISTORY Problem Relation Age of Onset Arthritis Mother Diabetes Mother Headache Father Lipids Father Headache Sister Diabetes Maternal Grandfather Stroke Maternal Grandfather Alcohol/Drug Paternal Grandmother ETOH Alcohol/Drug Paternal Grandfather ETOH Cancer Paternal Grandfather LUNG Alcohol/Drug Paternal Aunt ETOH Alcohol/Drug Paternal Uncle ETOH Cancer Paternal Uncle LUNG Social History Tobacco Use Smoking status: Former Current packs/day: 0.00 Average packs/day: 0.5 packs/day for 12.0 years (6.0 ttl pk-yrs) Types: Cigarettes Start date: 07/22/2001 Quit date: 07/22/2013 Years since quittin.4 Smokeless tobacco: Never Vaping Use Vaping status: Never Used Substance Use Topics Alcohol use: Yes Comment: Rarely Drug use: No EXAM: BP 120/80 Pulse 92 Resp 16 Wt 109.3 kg (241 lb) LMP (LMP Unknown) SpO2 99% BMI 42.69 kg/m PHYSICAL EXAM: Physical Exam Vitals reviewed. Constitutional: Appearance: Normal appearance. HENT: Head: Normocephalic. Neck: Comments: Palpable tenderness along cervical and thoracic spine. Pain along ridge of trapezius and mid back. Flexion 45 depression degrees, extension 25 degrees, 30 degrees pawan., limited rotation Cardiovascular: Rate and Rhythm: Normal rate and regular rhythm. Pulses: Normal pulses. Heart sounds: Normal heart sounds. Pulmonary: Effort: Pulmonary effort is normal. Breath sounds: Normal breath sounds. Musculoskeletal: Comments: Lumbar pain persists also Skin: General: Skin is warm and dry. Neurological: Mental Status: She is alert. ASSESSMENT/PLAN: 1. Fibromyalgia - ICD9: 729.1, ICD10: M79.7 (primary diagnosis) Ongoing 2. Anxiety with depression - ICD9: 300.4, ICD10: F41.8 Ongoing- on Lamictal & Effexor 3. Strain of trapezius muscle, unspecified laterality, initial encounter - ICD9: 840.8, ICD10: S46.819A Seeing pain management, medical massotherapy, and career agent - FMLA pending 4. Cervical pain - ICD9: 723.1, ICD10: M54.2 Significant- ongoing since 12/30/23 Discussed treatment plan and patient voices understanding. Patient's questions answered appropriately. Medications and potential side effects were discussed and patient voices understanding. Return to the office as scheduled or as needed for worsening/no improvement. Bettina Fuentes APRN.AGENCY OWNER documented in this encounterMercy [facility] Hospital08-22-2024 Telephone encounter Note * Telephone Encounter - Pramod Curtis LPN - 01/14/2024 10:30 AM EDT TC to Pt. Pt stated she is to go on line and fill out her portion of FMLA and the company will fax to PCP office. Faxed number to Pt. [phone] Pramod Curtis LPN [facility]08-22-2024 Miscellaneous Notes* Telephone Encounter - Pramod Curtis LPN - 01/14/2024 10:30 AM EDT TC to Pt. Pt stated she is to go on line and fill out her portion of FMLA and the company will fax to PCP office. Faxed number to Pt. [phone] Pramod Curtis LPN * Telephone Encounter - Phyllis Beth MA - 01/14/2024 8:59 AM EDT See pt message and advise if you would complete forms or if this should be coming from Pain Mgmt since they are treating her. Last seen patient on 08/21/23. We are not accepting Transfer to establish. Phyllis Beth MA documented in this encounterMercy Memorial Hospital08-22-2024 Telephone encounter Note * Telephone Encounter - Phyllis Beth MA - 01/14/2024 8:59 AM EDT See pt message and advise if you would complete forms or if this should be coming from Pain Mgmt since they are treating her. Last seen patient on 08/21/23. We are not accepting Transfer to establish. Phyllis Beth MA [facility]08-22-2024 Telephone encounter Note* Telephone Encounter - Bettina Fuentes APRN.CNP - 01/14/2024 7:49 AM EDT Cyclobenzaprine was sent [facility]08-22-2024 Miscellaneous Notes* Telephone Encounter - Bettina Fuentes APRN.CNP - 01/14/2024 7:49 AM EDT Cyclobenzaprine was sent * Telephone Encounter - Deanna aSdler RN - 01/13/2024 5:36 PM EDT Patient calling to ask if script was sent to pharmacy? She says she needed it today. Advised not sent yet but will send request. Deanna Sadler RN * Telephone Encounter - Deanna Sadler RN - 01/13/2024 2:00 PM EDT The patient has been identified by name and date of : Yes Caregiver verified no other encounters exist for this prescription request: Yes Caregiver confirmed with patient/requestor that no other refills are due, in the near future, with this provider at this time: Yes The last office visit in the department: 12/16/2023 Does the patient have a future office visit with this provider/department: No Visit date not found Requested Prescriptions Pending Prescriptions Disp Refills cyclobenzaprine (FLEXERIL) 10 mg tablet 30 tablet 1 Sig: Take 1 tablet by mouth three times a day as needed for muscle spasm. Deanna Sadler RN January 13, 2024 2:01 PM documented in this encounterMercy Memorial Hospital08-21-2024 Telephone encounter Note * Telephone Encounter - Deanna Sadler, RN - 01/13/2024 5:36 PM EDT Patient calling to ask if script was sent to pharmacy? She says she needed it today. Advised not sent yet but will send request. Deanna Sadler, RN [facility]08-21-2024 Telephone encounter Note* Telephone Encounter - Claudia Finch APRN.CNP - 01/13/2024 5:35 PM EDT Needs appt. Claudia Finch APRN.CNP [facility]08-21-2024 Miscellaneous Notes* Telephone Encounter - Claudia Finch APRN.CNP - 01/13/2024 5:35 PM EDT Needs appt. Claudia Finch APRN.AGENCY OWNER * Telephone Encounter - Cong Kunz LPN - 01/13/2024 8:50 AM EDT Prescription Refill Information The patient has been identified by name and date of : Yes Caregiver verified no other encounters exist for this prescription request: Yes Caregiver confirmed with patient/requestor that no other refills are due, in the near future, with this provider at this time: Yes The last office visit in the department: 12/16/23 Does the patient have a future office visit with this provider/department: No See MyChart message patient asking for refill. Requested Prescriptions Pending Prescriptions Disp Refills acetaminophen 325 mg-caffeine 40 mg-butalbital 50 mg (ESGIC) per capsule 20 capsule 0 Sig: Take 1 capsule by mouth every 4 hours as needed. Cong Kunz LPN January 13, 2024 8:51 AM documented in this encounterMercy Memorial Hospital08-21-2024 Telephone encounter Note * Telephone Encounter - Cong Kunz LPN - 01/13/2024 5:19 PM EDT Duplicate request. Another request is already sent to provider for review with correct pharmacy. [facility] Miscellaneous Notes* Telephone Encounter - Cong Kunz LPN - 01/13/2024 5:19 PM EDT Duplicate request. Another request is already sent to provider for review with correct pharmacy. documented in this encounterMercy Memorial Hospital08-21-2024 Telephone encounter Note * Telephone Encounter - Ellie Kwong LPN - 01/13/2024 4:14 PM EDT 01/13/2024 - called and spoke with patient to schedule a virtual visit. Scheduled patient for Thursday, February 01, 2024 at 10:30 AM. Ellie Kwong LPN [facility]08-21-2024 Miscellaneous Notes* Telephone Encounter - Ellie Kwong LPN - 01/13/2024 4:14 PM EDT 01/13/2024 - called and spoke with patient to schedule a virtual visit. Scheduled patient for Thursday, February 01, 2024 at 10:30 AM. Ellie Kwong LPN * Telephone Encounter - Ellie Kwong LPN - 01/13/2024 8:36 AM EDT Please review and advise. Thank you. Ellie Kwong LPN documented in this encounterMercy [facility] Hospital08-21-2024 Telephone encounter Note * Telephone Encounter - Deanna Sadler RN - 01/13/2024 2:00 PM EDT The patient has been identified by name and date of : Yes Caregiver verified no other encounters exist for this prescription request: Yes Caregiver confirmed with patient/requestor that no other refills are due, in the near future, with this provider at this time: Yes The last office visit in the department: 12/16/2023 Does the patient have a future office visit with this provider/department: No Visit date not found Requested Prescriptions Pending Prescriptions Disp Refills cyclobenzaprine (FLEXERIL) 10 mg tablet 30 tablet 1 Sig: Take 1 tablet by mouth three times a day as needed for muscle spasm. Deanna Sadler RN January 13, 2024 2:01 PM [facility]08-21-2024 Telephone encounter Note* Telephone Encounter - Cher Andre RN - 01/13/2024 9:09 AM EDT Patient has an appointment 02/07 for annual [facility]08-21-2024 Miscellaneous Notes* Telephone Encounter - Cher Andre RN - 01/13/2024 9:09 AM EDT Patient has an appointment 02/07 for annual [facility] Telephone encounter Note * Telephone Encounter - Cong Kunz LPN - 01/13/2024 8:50 AM EDT Prescription Refill Information The patient has been identified by name and date of : Yes Caregiver verified no other encounters exist for this prescription request: Yes Caregiver confirmed with patient/requestor that no other refills are due, in the near future, with this provider at this time: Yes The last office visit in the department: 12/16/23 Does the patient have a future office visit with this provider/department: No See MyChart message patient asking for refill. Requested Prescriptions Pending Prescriptions Disp Refills acetaminophen 325 mg-caffeine 40 mg-butalbital 50 mg (ESGIC) per capsule 20 capsule 0 Sig: Take 1 capsule by mouth every 4 hours as needed. Cong Kunz LPN January 13, 2024 8:51 AM [facility]08-21-2024 Telephone encounter Note* Telephone Encounter - Ellie Kwong LPN - 01/13/2024 8:36 AM EDT Please review and advise. Thank you. Ellie Kwong LPN [facility]08-15-2024 Telephone encounter Note* Telephone Encounter - Temitope Lewis LPN - 01/07/2024 8:29 AM EDT Patient calling said she phoned Dr Rajput office and they did not have her pain management referral. Printed referral from July, office notes from July, lumbar xray and cervical xray results, face sheet, consult, insurance card copy and faxed to [phone] as requested. T [facility]08-15-2024 Miscellaneous Notes* Telephone Encounter - Temitope Lewis LPN - 01/07/2024 8:29 AM EDT Patient calling said she phoned Dr Rajput office and they did not have her pain management referral. Printed referral from July, office notes from July, lumbar xray and cervical xray results, face sheet, consult, insurance card copy and faxed to [phone] as requested. [facility] Nurse Note* Sara Oconnell RN - 12/28/2023 3:33 PM EDT This Nurse reviewed and provided patient with copy of written instructions. The patient verbalized understanding and was given a number for questions. Sara Oconnell RN [facility]08-05-2024 Nurse Note* Sara Oconnell RN - 12/28/2023 3:33 PM EDT This Nurse reviewed and provided patient with copy of written instructions. The patient verbalized understanding and was given a number for questions. Sara Oconnell RN * Sara Oconnell RN - 12/28/2023 2:26 PM EDT REVIEW OF SYSTEMS: General: The patient NOTES fatigue, NOTES weight loss, NOTES weight gain, denies feeling hot, and denies feelings of cold. Eyes: The patient denies glaucoma, denies eye injury/surgery, wears glasses or contacts. Ear/Nose/Throat: The patient NOTES allergies, denies hayfever, denies ear infections, and denies bloody noses. Cardiovascular: The patient denies chest pain, denies heart disease, denies high blood pressure,denies cardiac stent, denies prior heart attack, denies irregular heart beat, denies high cholesterol, denies poor circulation, denies heart failure, other cardiac issues, NOTES claudication, denies coldfeet, denies peripheral arterial stent. Respiratory: The patient denies tuberculosis, denies pneumonia, denies frequent cough, denies pulmonary embolism, denies shortness of breath, and denies coughing up blood. Gastrointestinal: The patient denies difficulty swallowing, NOTES acid reflux, denies ulcers, denies vomiting, denies jaundice/hepatitis, NOTES gallbladder problems, denies black or tarry stools, denies hemorrhoids, denies bleeding from rectum, denies diverticulitis, NOTES constipation, NOTES diarrhea, denies loss of stool control, and NOTES hernias. Kidney/Bladder: The patient denies kidney stones, denies urine infections, and denies bloody urine. Skin: The patient denies a history of skin cancer, denies bleeding/changing moles, and denies a history of skin rash. Neurologic: The patient denies a history of epilepsy/convulsions, NOTES headaches, NOTES head/spinal injuries, and denies stroke/TIA. Psychiatric: The patient NOTES psychiatric medications, NOTES depression, and denies voices, deniessubstance abuse. Endocrine: The patient denies thyroid disorders, denies diabetes, and NOTES hormonal problems. Hematologic: The patient denies a history of bruising, denies bleeding, and denies anemia, denies blood clots. Infections: The patient denies a history of measles and mumps, denies rheumatic fever, and denies sexually transmitted diseases. Musculoskeletal: The patient NOTES back pain/injury, NOTES back problems, denies sciatica, NOTES knee/foot trouble, NOTES arthritis, or denies gout. When was patient's last Mammogram screening? 08/05/2023 Last Colonoscopy: 12/20/2018 Sara Oconnell RN documented in [facility] Nurse Note* Sara Oconnell RN - 12/28/2023 2:26 PM EDT REVIEW OF SYSTEMS: General: The patient NOTES fatigue, NOTES weight loss, NOTES weight gain, denies feeling hot, and denies feelings of cold. Eyes: The patient denies glaucoma, denies eye injury/surgery, wears glasses or contacts. Ear/Nose/Throat: The patient NOTES allergies, denies hayfever, denies ear infections, and denies bloody noses. Cardiovascular: The patient denies chest pain, denies heart disease, denies high blood pressure,denies cardiac stent, denies prior heart attack, denies irregular heart beat, denies high cholesterol, denies poor circulation, denies heart failure, other cardiac issues, NOTES claudication, denies coldfeet, denies peripheral arterial stent. Respiratory: The patient denies tuberculosis, denies pneumonia, denies frequent cough, denies pulmonary embolism, denies shortness of breath, and denies coughing up blood. Gastrointestinal: The patient denies difficulty swallowing, NOTES acid reflux, denies ulcers, denies vomiting, denies jaundice/hepatitis, NOTES gallbladder problems, denies black or tarry stools, denies hemorrhoids, denies bleeding from rectum, denies diverticulitis, NOTES constipation, NOTES diarrhea, denies loss of stool control, and NOTES hernias. Kidney/Bladder: The patient denies kidney stones, denies urine infections, and denies bloody urine. Skin: The patient denies a history of skin cancer, denies bleeding/changing moles, and denies a history of skin rash. Neurologic: The patient denies a history of epilepsy/convulsions, NOTES headaches, NOTES head/spinal injuries, and denies stroke/TIA. Psychiatric: The patient NOTES psychiatric medications, NOTES depression, and denies voices, deniessubstance abuse. Endocrine: The patient denies thyroid disorders, denies diabetes, and NOTES hormonal problems. Hematologic: The patient denies a history of bruising, denies bleeding, and denies anemia, denies blood clots. Infections: The patient denies a history of measles and mumps, denies rheumatic fever, and denies sexually transmitted diseases. Musculoskeletal: The patient NOTES back pain/injury, NOTES back problems, denies sciatica, NOTES knee/foot trouble, NOTES arthritis, or denies gout. When was patient's last Mammogram screening? 08/05/2023 Last Colonoscopy: 12/20/2018 Sara Oconnell RN [facility]08-05-2024 History of Present illness Narrative* Ashlee Lee APRN.AGENCY OWNER - 12/28/2023 1:00 PM EDT HISTORY AND PHYSICAL Fernanda Hernandez : 1980 REFERRING PHYSICIAN: Faith Deluna [address] [facility] [id number] CHIEF COMPLAINT: Patient presents with: Colon consult HPI: Fernanda is a 43 year old female referred for endoscopy. Fernanda notes positive occult stool test. She had stool studies completed by PCP which all returned negative except was positive for blood. She was seen by her PCP for diarrhea starting November 01, 2023. When she was fluctuating between constipation and diarrhea that she is having bloating and nausea. Used to follow with GI but has not seen them in 2 years. History of GERD and IBS and gastric bypass surgery in 2020 Was instructed to increase fiber, water, and start using MiraLAX- She did not start this yet but states her bowels have returned back to normal. Abdominal x-ray on 12/16/2023 shows moderate amount of stool Patient denies any weight changes, visible blood in stools, black tarry stools or abdominal pain. Denies family history of colon issues. Fernanda notes history upper GI complaints. She refers she used to suffer from reflux and took medication, however is no longer taking meds and has no reflux symptoms. Fernanda has undergone prior endoscopy. Fernanda underwent upper endoscopy at [facility] with Dr. Gonzalez on 01/2020 for preop for bariatric surgery EGD Impression: -Normal first portion of the duodenum and second portion of the duodenum -Erythematous mucosa in the antrum, biopsied -Medium size hiatal hernia. Biopsied Pathology: A. Gastric antrum, biopsy: Chronic gastritis. B. Gastroesophageal junction, biopsy: Gastric mucosa with mild chronic inflammation. No evidence of goblet cell metaplasia Fernanda also underwent colonoscopy 11/[address] Gonzalez Colonoscopy Impression: -Nonbleeding internal hemorrhoids -Biopsies were taken with cold forceps from the entire colon for evaluation of microscopic colitis Pathology: Colon, random biopsy Fragments of colonic mucosa, no pathologic diagnosis Current Outpatient Medications Medication Sig meclizine (ANTIVERT) 25 mg tab Take 1 tablet by mouth three times a day as needed (vertigo). lamoTRIgine (LAMICTAL) 200 mg tablet Take 1 tablet by mouth daily at bedtime. ondansetron orally disintegrating (ZOFRAN ODT) 4 mg disintegrating tablet Take 1 tablet by mouth every 6 hours as needed for nausea/vomiting. gabapentin (NEURONTIN) 100 mg capsule Take 1 capsule by mouth three times a day for 90 days. metFORMIN ER (GLUCOPHAGE XR) 500 mg 24 hr tablet Take 4 tablets by mouth daily with dinner. norgestimate 0.25 mg-ethinyl estradiol 35 mcg (TAMARA) 0.25-35 mg-mcg per tablet Take 1 tablet by mouth once daily. Take active pills only. No inactive week. venlafaxine (EFFEXOR) 75 mg tablet Take 1 tablet by mouth two times a day. cyclobenzaprine (FLEXERIL) 10 mg tablet Take 1 tablet by mouth three times a day as needed for muscle spasm. iron polysaccharide complex (FERREX-150) 150 mg iron capsule Take 1 capsule by mouth twice daily. Multivitamin capsule Take 1 capsule by mouth once daily. BIOTIN, BULK, MISC cholecalciferol, vitamin D3, (VITAMIN D3 ORAL) Take by mouth. ascorbic acid (VITAMIN C ORAL) Take by mouth. venlafaxine (EFFEXOR) 37.5 mg tablet Take 1 tablet by mouth two times a day. take with 75mg tablet in the morning and in the evening. (Patient not taking: Reported on 06/16/2023) ARIPiprazole (ABILIFY) 2 mg tablet Take 1 tablet by mouth once daily. No current facility-administered medications for this visit. ALLERGIES: Aciphex [Rabeprazole Sodium], Entex Pse [Pseudoephedrine- Guaifenesin], Nexium [Esomeprazole Magnesium], Prevacid [Lansoprazole], Prilosec [Omeprazole], Sulfa (Sulfonamide Antibiotics), andWellbutrin [Bupropion Hcl] PAST MEDICAL HISTORY No date: Delayed emergence from general anesthesia 08/20/2016: Fibromyalgia 03/12/2009: GERD (gastroesophageal reflux disease) No date: Hypoglycemia, unspecified No date: Mental disorder Comment: anxiety and depression 2001: Migraine without aura No date: Morbid obesity (HCC) 01/23/12: Normal cardiac stress test No date: PONV (postoperative nausea and vomiting) No date: Sleep apnea No date: Snoring No date: Unspecified prophylactic or treatment measure PAST SURGICAL HISTORY 12/14/2018: COLONOSCOPY W/BIOPSY SINGLE/MULTIPLE 01/31/2020: EGD 04/11/2005: ESOPHAGOGASTRODUODENOSCOPY TRANSORAL DIAGNOSTIC Comment: EGD 03/06/2017: ESOPHAGOGASTRODUODENOSCOPY TRANSORAL DIAGNOSTIC Comment: EGD 11/08/2020: GASTRIC BYPASS, TATI-EN-Y Comment: w/ Lap hiatal hernia repair 11/08/2020: LAP REPAIR, PARAESOPHAGEAL HIATAL HERNIA 03/21/2016: LAPAROSCOPY SURG CHOLECYSTECTOMY 2014: REDUCTION OF LARGE BREAST 2003: TONSILLECTOMY & ADENOIDECTOMY AGE 11/> Comment: DR. EASTMAN FAMILY HISTORY Problem Relation Age of Onset Arthritis Mother Diabetes Mother Headache Father Lipids Father Headache Sister Diabetes Maternal Grandfather Stroke Maternal Grandfather Alcohol/Drug Paternal Grandmother ETOH Alcohol/Drug Paternal Grandfather ETOH Cancer Paternal Grandfather LUNG Alcohol/Drug Paternal Aunt ETOH Alcohol/Drug Paternal Uncle ETOH Cancer Paternal Uncle LUNG Social History Tobacco Use Smoking status: Former Packs/day: 0.50 Years: 12.00 Additional pack years: 0.00 Total pack years: 6.00 Types: Cigarettes Quit date: 07/22/2013 Years since quittin.4 Smokeless tobacco: Never Vaping Use Vaping Use: Never used Substance Use Topics Alcohol use: Yes Comment: Rarely Drug use: No REVIEW OF SYMPTOMS: The review of systems data was entered by the nurse and reviewed by mt Nursing Notes: Sara Oconnell RN 12/28/2023 2:28 PM Signed REVIEW OF SYSTEMS: General: The patient NOTES fatigue, NOTES weight loss, NOTES weight gain, denies feeling hot, and denies feelings of cold. Eyes: The patient denies glaucoma, denies eye injury/surgery, wears glasses or contacts. Ear/Nose/Throat: The patient NOTES allergies, denies hayfever, denies ear infections, and denies bloody noses. Cardiovascular: The patient denies chest pain, denies heart disease, denies high blood pressure,denies cardiac stent, denies prior heart attack, denies irregular heart beat, denies high cholesterol, denies poor circulation, denies heart failure, other cardiac issues, NOTES claudication, denies coldfeet, denies peripheral arterial stent. Respiratory: The patient denies tuberculosis, denies pneumonia, denies frequent cough, denies pulmonary embolism, denies shortness of breath, and denies coughing up blood. Gastrointestinal: The patient denies difficulty swallowing, NOTES acid reflux, denies ulcers, denies vomiting, denies jaundice/hepatitis, NOTES gallbladder problems, denies black or tarry stools, denies hemorrhoids, denies bleeding from rectum, denies diverticulitis, NOTES constipation, NOTES diarrhea, denies loss of stool control, and NOTES hernias. Kidney/Bladder: The patient denies kidney stones, denies urine infections, and denies bloody urine. Skin: The patient denies a history of skin cancer, denies bleeding/changing moles, and denies a history of skin rash. Neurologic: The patient denies a history of epilepsy/convulsions, NOTES headaches, NOTES head/spinal injuries, and denies stroke/TIA. Psychiatric: The patient NOTES psychiatric medications, NOTES depression, and denies voices, deniessubstance abuse. Endocrine: The patient denies thyroid disorders, denies diabetes, and NOTES hormonal problems. Hematologic: The patient denies a history of bruising, denies bleeding, and denies anemia, denies blood clots. Infections: The patient denies a history of measles and mumps, denies rheumatic fever, and denies sexually transmitted diseases. Musculoskeletal: The patient NOTES back pain/injury, NOTES back problems, denies sciatica, NOTES knee/foot trouble, NOTES arthritis, or denies gout. When was patient's last Mammogram screening? 08/05/2023 Last Colonoscopy: 12/20/2018 Sara Oconnell RN PHYSICAL EXAMINATION: General: The patient is 43 year old, female well nourished, well hydrated in no acute distress. Thepatient is oriented to time, place, and person. VITALS: Blood pressure 124/84, pulse 78, temperature 36.6 C (97.8 F), weight 110.7 kg (244 lb), SpO2 96%. Body mass index is 43.22 kg/m . HEENT: Normal cephalic, ataumatic, pupils are equally round, sclera are anicteric, mucous membranesare moist, oropharynx is clear. Neck has no masses, asymmetry or lymphadenopathy. Respiratory: Clear to auscultation and percussion. Normal respiratory excursion and pattern. Cardiac: Examination is regular rate and rhythm. Normal S1/S2 Abdominal exam: Soft, nontender, with no palpable masses. No hepatosplenomegaly. No palpable hernias. Extremities: no clubbing, cyanosis or edema. No adenopathy. LABORATORY VALUES: As Noted RADIOLOGIC STUDIES: As Noted Assessment IMPRESSION: positive occult stool, diarrhea PLAN: I have reviewed my findings with the surgeon. Will plan for lower endoscopy. We discussed therisks and benefits of the planned endoscopy. I have informed the patient that complications can occur including failure to complete the endoscopy and perforation. Fernanda had the opportunity to ask questions concerning the planned endoscopy. My staff has also explained the procedure to the patient in understandable terms and has given the patient printed material concerning the procedure. Fernanda freely consents to surgery. I plan to use Golytely bowel preparation I have explained to the patient the difference between IV conscious sedation and MAC anesthesia - and I have offered either, according to the patient's wishes. I have explained that with IV conscioussedation there is no anesthesia provider available and therefore there is a limitation of the amount of IV medications that can be given and that the patient may wake up in the middle of the procedure and/or experience pain/discomfort during the procedure. Further discussion was done and the patient was given the opportunity to ask questions and all questions were answered. MAC anesthesia Fernanda was counseled that if there are changes in his/her medical condition, to let the office knowif surgery should proceed. If there are changes in patient's medical condition from time of this encounter to the day of the procedure that preclude anesthesia, patient may have procedure cancelled for patient's safety. Diagnoses: (R19.7) Diarrhea, unspecified type (primary encounter diagnosis) (R19.5) Occult blood positive stool Consultation requested by Faith Deluna CNP for an opinion regarding diarrhea & positive occult stool. My final recommendations will be communicated back to the requesting physician by way of shared Medical record or letter to requesting physician via US mail. Portions of this documentation were copied and pasted from previous office visit notes in order to provide a cohesive continuity of the history. The note has been reviewed and edited and updated as necessary. Ashlee Lee APRN.CNP documented in this encounterMer[facility]24 NoteHNO ID: [id number] Author: ASHLEE LEE APRN.CNP Service: ? Author Type: Nurse Practitioner Type: Progress Notes Filed: 12/28/2023 14:30 Note Text: HISTORY AND PHYSICAL Fernanda Hernandez : 1980 REFERRING PHYSICIAN: Faith Deluna [address] [facility] [id number] CHIEF COMPLAINT: Patient presents with: Colon consult HPI: Fernanda is a 43 year old female referred for endoscopy. Fernanda notes positive occult stool test. She had stool studies completed by PCP which all returned negative except was positive for blood. She was seen by her PCP for diarrhea starting November 01, 2023. When she was fluctuating between constipation and diarrhea that she is having bloating and nausea. Used to follow with GI but has not seen them in 2 years. History of GERD and IBS and gastric bypass surgery in 2020 Was instructed to increase fiber, water, and start using MiraLAX- She did not start this yet but states her bowels have returned back to normal. Abdominal x-ray on 12/16/2023 shows moderate amount of stool Patient denies any weight changes, visible blood in stools, black tarry stools or abdominal pain. Denies family history of colon issues. Fernanda notes history upper GI complaints. She refers she used to suffer from reflux and took medication, however is no longer taking meds and has no reflux symptoms. Fernanda has undergone prior endoscopy. Fernanda underwent upper endoscopy at [facility] with Dr. Gonzalez on 01/2020 for preop for bariatric surgery EGD Impression: -Normal first portion of the duodenum and second portion of the duodenum -Erythematous mucosa in the antrum, biopsied -Medium size hiatal hernia. Biopsied Pathology: A. Gastric antrum, biopsy: Chronic gastritis. B. Gastroesophageal junction, biopsy: Gastric mucosa with mild chronic inflammation. No evidence of goblet cell metaplasia Fernanda also underwent colonoscopy 11/[address] Gonzalez Colonoscopy Impression: -Nonbleeding internal hemorrhoids -Biopsies were taken with cold forceps from the entire colon for evaluation of microscopic colitis Pathology: Colon, random biopsy Fragments of colonic mucosa, no pathologic diagnosis Current Outpatient Medications Medication Sig meclizine (ANTIVERT) 25 mg tab Take 1 tablet by mouth three times a day as needed (vertigo). lamoTRIgine (LAMICTAL) 200 mg tablet Take 1 tablet by mouth daily at bedtime. ondansetron orally disintegrating (ZOFRAN ODT) 4 mg disintegrating tablet Take 1 tablet by mouth every 6 hours as needed for nausea/vomiting. gabapentin (NEURONTIN) 100 mg capsule Take 1 capsule by mouth three times a day for 90 days. metFORMIN ER (GLUCOPHAGE XR) 500 mg 24 hr tablet Take 4 tablets by mouth daily with dinner. norgestimate 0.25 mg-ethinyl estradiol 35 mcg (TAMARA) 0.25-35 mg-mcg per tablet Take 1 tablet by mouth once daily. Take active pills only. No inactive week. venlafaxine (EFFEXOR) 75 mg tablet Take 1 tablet by mouth two times a day. cyclobenzaprine (FLEXERIL) 10 mg tablet Take 1 tablet by mouth three times a day as needed for muscle spasm. iron polysaccharide complex (FERREX-150) 150 mg iron capsule Take 1 capsule by mouth twice daily. Multivitamin capsule Take 1 capsule by mouth once daily. BIOTIN, BULK, MISC cholecalciferol, vitamin D3, (VITAMIN D3 ORAL) Take by mouth. ascorbic acid (VITAMIN C ORAL) Take by mouth. venlafaxine (EFFEXOR) 37.5 mg tablet Take 1 tablet by mouth two times a day. take with 75mg tablet in the morning and in the evening. (Patient not taking: Reported on 06/16/2023) ARIPiprazole (ABILIFY) 2 mg tablet Take 1 tablet by mouth once daily. No current facility-administered medications for this visit. ALLERGIES: Aciphex [Rabeprazole Sodium], Entex Pse [Pseudoephedrine-Guaifenesin], Nexium [Esomeprazole Magnesium], Prevacid [Lansoprazole], Prilosec [Omeprazole], Sulfa (Sulfonamide Antibiotics), and Wellbutrin [Bupropion Hcl] PAST MEDICAL HISTORY No date: Delayed emergence from general anesthesia 08/20/2016: Fibromyalgia 03/12/2009: GERD (gastroesophageal reflux disease) No date: Hypoglycemia, unspecified No date: Mental disorder Comment: anxiety and depression 2001: Migraine without aura No date: Morbid obesity (HCC) 01/23/12: Normal cardiac stress test No date: PONV (postoperative nausea and vomiting) No date: Sleep apnea No date: Snoring No date: Unspecified prophylactic or treatment measure PAST SURGICAL HISTORY 12/14/2018: COLONOSCOPY W/BIOPSY SINGLE/MULTIPLE 01/31/2020: EGD 04/11/2005: ESOPHAGOGASTRODUODENOSCOPY TRANSORAL DIAGNOSTIC Comment: EGD 03/06/2017: ESOPHAGOGASTRODUODENOSCOPY TRANSORAL DIAGNOSTIC Comment: EGD 11/08/2020: GASTRIC BYPASS, TATI-EN-Y Comment: w/ Lap hiatal hernia repair 11/08/2020: LAP REPAIR, PARAESOPHAGEAL HIATAL HERNIA 03/21/2016: LAPAROSCOPY SURG CHOLECYSTECTOMY 2014: REDUCTION OF LARGE BREAST 2003: TONSILLECTOMY AND ADENOIDECTOMY AGE 11/> (more content not included)...[facility]07-31-2024 Telephone encounter Note* Telephone Encounter - Pramod Pool RN - 12/23/2023 9:06 AM EDT Pt saw the consult scheduling ticket for general surgery in her MyChart so she called in checking on that. Pt had seen the positive occult blood result. Pt given Faith's information and transferred to derrick hand to set up general surgery consult. [facility]07-31-2024 Miscellaneous Notes* Telephone Encounter - Pramod Pool RN - 12/23/2023 9:06 AM EDT Pt saw the consult scheduling ticket for general surgery in her MyChart so she called in checking on that. Pt had seen the positive occult blood result. Pt given Faith's information and transferred to derrick hand to set up general surgery consult. * Telephone Encounter - Faith Deluna APRN.CNP - 12/23/2023 7:56 AM EDT Can you please call the patient and let her know that I reviewed her stool test results. She tested negative for C. difficile or bacteria in the stool. However blood was noted. Parasite testing is still pending. Due to the blood in the stool I would recommend a consult with general surgery to discuss possible colonoscopy. Thank you. Faith Deluna APRN.CNP [facility] Telephone encounter Note * Telephone Encounter - Faith Deluna APRN.CNP - 12/23/2023 7:56 AM EDT Can you please call the patient and let her know that I reviewed her stool test results. She tested negative for C. difficile or bacteria in the stool. However blood was noted. Parasite testing is still pending. Due to the blood in the stool I would recommend a consult with general surgery to discuss possible colonoscopy. Thank you. Faith Deluna APRN.RACHID [facility]07[facility] Telephone encounter Note* Telephone Encounter - Pramod Curtis LPN - 12/21/2023 9:10 AM EDT Patient notified of results, verbalizes understanding of instructions. Pt stated she turned stool sample in this AM. Pramod Curtis LPN [facility]07-29-2024 Miscellaneous Notes* Telephone Encounter - Pramod Curtis LPN - 12/21/2023 9:10 AM EDT Patient notified of results, verbalizes understanding of instructions. Pt stated she turned stool sample in this AM. Pramod Curtis LPN * Telephone Encounter - Faith Deluna APRN.CNP - 12/21/2023 7:01 AM EDT Can you please call the patient and let her know that I reviewed her x-ray results. X-ray of the abdomen does reveal moderate constipation. I would recommend that she continue supportive care at homeas discussed during office visit. May use MiraLAX 1-2 times per day as needed. Increase water and fiber in the diet. She may still complete the stool test for further evaluation. Please let me know if she has any questions. Thank you. Faith Deluna APRN.RACHID documented [facility] Telephone encounter Note * Telephone Encounter - Faith Deluna APRN.CNP - 12/21/2023 7:01 AM EDT Can you please call the patient and let her know that I reviewed her x-ray results. X-ray of the abdomen does reveal moderate constipation. I would recommend that she continue supportive care at homeas discussed during office visit. May use MiraLAX 1-2 times per day as needed. Increase water and fiber in the diet. She may still complete the stool test for further evaluation. Please let me know if she has any questions. Thank you. Faith Deluna APRN.CNP [facility] History of Present illness Narrative* Roosevelt Shafer RT(Master) - 12/16/2023 10:00 AM EDT Radiology Service Progress Note PATIENT NAME: Fernanda Hernandez DATE OF SERVICE: December 16, 2023 TIME: 9:53 AM PATIENT IDENTITY VERIFICATION COMPLETED USING TWO (2) IDENTIFIERS: Name and Date of confirmedby patient verbally. FALL SCREENING: Has the patient had 2 falls in the last year or 1 fall with injury or currently using an Ambulatory Assistive Device (Walker, Cane, Wheelchair, Crutches, etc.)? No PATIENT GENDER DATA: Female. status: : No status: NO. PATIENT RELEVANT IMPLANT DATA REVIEWED: Yes PATIENT PRESENTS WITH AN IMPLANTABLE OR ATTACHED REGULATORY LEAD: No RADIOLOGY DEPARTMENT: General X-ray: Exam(s) Completed: Abdomen X-Ray: Abdomen PERIPHERAL IV DATA: Not applicable SIGNED BY: RT Jessica(Master) December 16, 2023 9:53 AM documented in this encounterMer[facility]07-[facility]-2024 NoteHNO ID: [id number] Author: ROOSEVELT SHAFER RT(R) Service: Radiology Author Type: Technologist Type: Progress Notes Filed: 12/16/2023 10:03 Note Text: Radiology Service Progress Note PATIENT NAME: Fernanda Hernandez DATE OF SERVICE: December 16, 2023 TIME: 9:53 AM PATIENT IDENTITY VERIFICATION COMPLETED USING TWO (2) IDENTIFIERS: Name and Date of confirmed by patient verbally. FALL SCREENING: Has the patient had 2 falls in the last year or 1 fall with injury or currently using an Ambulatory Assistive Device (Walker, Cane, Wheelchair, Crutches, etc.)? No PATIENT GENDER DATA: Female. status: : No status: NO. PATIENT RELEVANT IMPLANT DATA REVIEWED: Yes PATIENT PRESENTS WITH AN IMPLANTABLE OR ATTACHED REGULATORY LEAD: No RADIOLOGY DEPARTMENT: General X-ray: Exam(s) Completed: Abdomen X-Ray: Abdomen PERIPHERAL IV DATA: Not applicable SIGNED BY: RT Jessica(R) December 16, 2023 9:53 [facility]07-24-2024 Instructions* Patient Instructions* Faith Deluna APRN.CNP - 12/16/2023 9:34 AM EDT Complete abdomen Xray Complete stool testing Recommend increasing fiber and water in the diet. If needed may add on physllium Husk May use Miralax 1-2 times per day as needed for constipation Red flag symptoms go to ER Follow up pending test results or sooner as needed. documented in this encounter[facility] History of Present illness Narrative* Faith Deluna APRN.CNP - 12/16/2023 9:00 AM EDT This is a 43 year old female who presents today with: Patient presents with: Acute Visit: Low back pain, cramping and diarrhea HISTORY OF PRESENT ILLNESS: Fernanda Hernandez is a 43 year old female. Patient presents with: Acute Visit: Low back pain, cramping and diarrhea Patient of Alfonzo Garcia PA-C, here in the office for diarrhea and cramping. Symptoms started at the beginning of November 01, 2023. When diarrhea started she was going 4-5 times a day for 3 days and then got better. She was having constipation for 2-3 days and then diarrhea. Now she is feeling bloated and nauseous. The past week she had a small BM after having iced coffee and then a half hour to an hour later she had diarrhea. Reports also feeling full after a few bites of food. Reports low back painand abdominal cramping continuously and gets worse when having to go the bathroom. Has tried pepto bismol and probiotic. Denies fever or chills. Was seen by PCP guest service team leader in October when symptoms first started. Lab workup at that time was all normal. History of GERD and IBS with diarrhea. Not currently following with GI, Reports she has not seen [facility] 2 years ago, did have a phone call visit in May due to gaining weight back. PAST MEDICAL HISTORY: PAST MEDICAL HISTORY Diagnosis Date Delayed emergence from general anesthesia Fibromyalgia 08/20/2016 GERD (gastroesophageal reflux disease) 03/12/2009 Hypoglycemia, unspecified Mental disorder anxiety and depression Migraine without aura 2001 Morbid obesity (HCC) Normal cardiac stress test 01/23/12 PONV (postoperative nausea and vomiting) Sleep apnea Snoring Unspecified prophylactic or treatment measure PAST SURGICAL HISTORY Procedure Laterality Date COLONOSCOPY W/BIOPSY SINGLE/MULTIPLE 12/14/2018 EGD 01/31/2020 ESOPHAGOGASTRODUODENOSCOPY TRANSORAL DIAGNOSTIC 04/11/2005 EGD ESOPHAGOGASTRODUODENOSCOPY TRANSORAL DIAGNOSTIC 03/06/2017 EGD GASTRIC BYPASS, TATI-EN-Y 11/08/2020 w/ Lap hiatal hernia repair LAP REPAIR, PARAESOPHAGEAL HIATAL HERNIA 11/08/2020 LAPAROSCOPY SURG CHOLECYSTECTOMY 03/21/2016 REDUCTION OF LARGE BREAST 2014 TONSILLECTOMY & ADENOIDECTOMY AGE 11/> 2002 DR. EASTMAN ALLERGIES Aciphex [Rabeprazole Sodium], Entex Pse [Pseudoephedrine-Guaifenesin], Nexium [Esomeprazole Magnesium], Prevacid [Lansoprazole], Prilosec [Omeprazole], Sulfa (Sulfonamide Antibiotics), and Wellbutrin [Bupropion Hcl] MEDICATIONS Current Outpatient Medications Medication Sig meclizine (ANTIVERT) 25 mg tab Take 1 tablet by mouth three times a day as needed (vertigo). lamoTRIgine (LAMICTAL) 200 mg tablet Take 1 tablet by mouth daily at bedtime. ondansetron orally disintegrating (ZOFRAN ODT) 4 mg disintegrating tablet Take 1 tablet by mouth every 6 hours as needed for nausea/vomiting. gabapentin (NEURONTIN) 100 mg capsule Take 1 capsule by mouth three times a day for 90 days. metFORMIN ER (GLUCOPHAGE XR) 500 mg 24 hr tablet Take 4 tablets by mouth daily with dinner. venlafaxine (EFFEXOR) 37.5 mg tablet Take 1 tablet by mouth two times a day. take with 75mg tablet in the morning and in the evening. (Patient not taking: Reported on 06/16/2023) norgestimate 0.25 mg-ethinyl estradiol 35 mcg (TAMARA) 0.25-35 mg-mcg per tablet Take 1 tablet by mouth once daily. Take active pills only. No inactive week. ARIPiprazole (ABILIFY) 2 mg tablet Take 1 tablet by mouth once daily. venlafaxine (EFFEXOR) 75 mg tablet Take 1 tablet by mouth two times a day. cyclobenzaprine (FLEXERIL) 10 mg tablet Take 1 tablet by mouth three times a day as needed for muscle spasm. iron polysaccharide complex (FERREX-150) 150 mg iron capsule Take 1 capsule by mouth twice daily. Multivitamin capsule Take 1 capsule by mouth once daily. BIOTIN, BULK, MISC cholecalciferol, vitamin D3, (VITAMIN D3 ORAL) Take by mouth. ascorbic acid (VITAMIN C ORAL) Take by mouth. No current facility-administered medications for this visit. FAMILY HISTORY Problem Relation Age of Onset Arthritis Mother Diabetes Mother Headache Father Lipids Father Headache Sister Diabetes Maternal Grandfather Stroke Maternal Grandfather Alcohol/Drug Paternal Grandmother ETOH Alcohol/Drug Paternal Grandfather ETOH Cancer Paternal Grandfather LUNG Alcohol/Drug Paternal Aunt ETOH Alcohol/Drug Paternal Uncle ETOH Cancer Paternal Uncle LUNG Social History Tobacco Use Smoking status: Former Packs/day: 0.50 Years: 12.00 Additional pack years: 0.00 Total pack years: 6.00 Types: Cigarettes Quit date: 07/22/2013 Years since quittin.4 Smokeless tobacco: Never Vaping Use Vaping Use: Never used Substance Use Topics Alcohol use: Yes Comment: Rarely Drug use: No REVIEW OF SYSTEMS GENERAL: No weight loss, malaise or fevers/chills HEENT: Negative for frequent or significant headaches, No changes in hearing or vision. NECK: Negative for lumps, goiter, pain and significant neck swelling RESPIRATORY: Negative for cough, hemoptysis, wheezing, dyspnea or shortness of breath CARDIOVASCULAR: Negative for chest pain, leg swelling, orthopnea, or palpitations GI: No nausea, vomiting, or diarrhea/constipation. No hematochezia/melena. No heartburn or reflux symptoms. : No history of dysuria, frequency or incontinence MUSCULOSKELETAL: Negative for joint pain or swelling. SKIN: Negative for lesions, rash, and itching ENDOCRINE: Negative for cold or heat intolerance, polyuria, polydipsia and goiter NEURO: No history of headaches, syncope, paralysis, seizures or tremors MOOD: Negative for depression, anxiety, or suicidal ideation. EXAM: BP 122/62 Pulse 78 Resp 16 Wt 109.8 kg (242 lb) LMP (LMP Unknown) SpO2 96% BMI 42.87 kg/m PHYSICAL EXAM: General Appearance: Well appearing, alert, in no acute distress, well-hydrated, well nourished. Skin: Skin color, texture, turgor normal, no suspicious rashes or lesions. Head: Normocephalic, no masses, lesions, tenderness or abnormalities. Eyes: Anicteric sclera.Heart: RRR without murmur, gallop, or rubs. No ectopy. Abdomen: Normal abdominal exam, Abdomen soft, non-tender. Bowel sounds normal. No masses, organomegaly. Extremities: No deformities, edema, skin discoloration, clubbing or cyanosis. Good capillary refill. Musculoskeletal: No joint swelling, deformity, or tenderness. Peripheral Pulses: Normal, Capillary refill <2secs, strong peripheral pulses, Pulses palpable. Neurologic: Gait normal. Reflexes normal and symmetric. Sensation grossly intact. Latest Ref [facility] 11/13/2023 WBC 3.70 - 11.00 k/uL 7.23 RBC 3.90 - 5.20 m/uL 4.50 Hemoglobin 11.5 - 15.5 g/dL 13.5 Hematocrit 36.0 - 46.0 % 40.9 MCV 80.0 - 100.0 fL 90.9 MCH 26.0 - 34.0 pg 30.0 MCHC 30.5 - 36.0 g/dL 33.0 RDW-CV 11.5 - 15.0 % 12.8 Platelet Count 150 - 400 k/uL 315 MPV 9.0 - 12.7 fL 11.1 Neut% % 55.6 Abs Neut (ANC) 1.45 - 7.50 k/uL 4.02 Lymph% % 33.6 Abs Lymph 1.00 - 4.00 k/uL 2.43 Corson% % 5.5 Abs Corson <0.87 k/uL 0.40 Eosin% % 4.3 Abs Eosin <0.46 k/uL 0.31 Baso% % 0.7 Abs Baso <0.11 k/uL 0.05 Immature Gran % % 0.3 IMMATURE GRANS (ABS) <0.10 k/uL <0.03 NRBC /100 WBC 0.0 Absolute nRBC <0.01 k/uL <0.01 DTYPE Auto Protein, Total 6.3 - 8.0 g/dL 6.8 Albumin 3.9 - 4.9 g/dL 3.9 Calcium 8.5 - 10.2 mg/dL 9.3 Bilirubin, Total 0.2 - 1.3 mg/dL 0.2 Alkaline Phosphatase 34 - 123 U/L 94 AST 13 - 35 U/L 26 ALT 7 - 38 U/L 18 Glucose 74 - 99 mg/dL 78 BUN 7 - 21 mg/dL 8 Creatinine 0.58 - 0.96 mg/dL 0.64 Sodium 136 - 144 mmol/L 141 Potassium 3.7 - 5.1 mmol/L 4.0 Chloride 98 - 107 mmol/L 105 CO2 22 - 30 mmol/L 25 Anion Gap 8 - 15 mmol/L 11 eGFR >=60 mL/min/1.73m 112 Iron 41 - 186 ug/dL 71 TIBC 232 - 386 ug/dL 348 Transferrin Saturation 15.0 - 57.0 % 20.4 Lipase 16 - 61 U/L 20 Magnesium 1.7 - 2.3 mg/dL 1.9 Ferritin 14.7 - 205.1 ng/mL 125.0 ASSESSMENT/PLAN: 1. Diarrhea, unspecified type - ICD9: 787.91, ICD10: R19.7 (primary diagnosis) - Get x-ray and stool samples completed - Continue supportive care at home - 2 to IBS history, concerns for IBS diarrhea/constipation - If testing comes back normal may consider rifaximin in the future - Discussed increasing fiber and water in the diet - OCCULT BLD EXAM-DIAG - OVA + PARA MICROSCOPIC - C. DIFFICILE PCR - ENTERIC BACTERIAL PANEL BY PCR 2. Abdominal cramping - ICD9: 789.00, ICD10: R10.9 - XR ABDOMEN 1V SUPINE Follow-up pending test results Discussed treatment plan and patient voices understanding. Patient's questions answered appropriately. Medications and potential side effects were discussed and patient voices understanding. Faith Deluna APRN.CNP This note was partially generated using [employer] voice recognition system. Note was reviewed for accuracy. There may be minor misspellings or grammar miscues with [employer] voice recognition. [facility] in this [facility] NoteHNO ID: [id number] Author: FAITH DELUNA APRN.CNP Service: ? Author Type: Nurse Practitioner Type: Progress Notes Filed: 12/16/2023 09:43 Note Text: This is a 43 year old female who presents today with: Patient presents with: Acute Visit: Low back pain, cramping and diarrhea HISTORY OF PRESENT ILLNESS: Fernanda Hernandez is a 43 year old female. Patient presents with: Acute Visit: Low back pain, cramping and diarrhea Patient of Alfonzo Garcia PA-C, here in the office for diarrhea and cramping. Symptoms started at the beginning of November 01, 2023. When diarrhea started she was going 4-5 times a day for 3 days and then got better. She was having constipation for 2-3 days and then diarrhea. Now she is feeling bloated and nauseous. The past week she had a small BM after having iced coffee and then a half hour to an hour later she had diarrhea. Reports also feeling full after a few bites of food. Reports low back pain and abdominal cramping continuously and gets worse when having to go the bathroom. Has tried pepto bismol and probiotic. Denies fever or chills. Was seen by PCP guest service team leader in October when symptoms first started. Lab workup at that time was all normal. History of GERD and IBS with diarrhea. Not currently following with GI, Reports she has not seen GI since 2 years ago, did have a phone call visit in May due to gaining weight back. PAST MEDICAL HISTORY: PAST MEDICAL HISTORY Diagnosis Date Delayed emergence from general anesthesia Fibromyalgia 08/20/2016 GERD (gastroesophageal reflux disease) 03/12/2009 Hypoglycemia, unspecified Mental disorder anxiety and depression Migraine without aura 2001 Morbid obesity (HCC) Normal cardiac stress test 01/23/12 PONV (postoperative nausea and vomiting) Sleep apnea Snoring Unspecified prophylactic or treatment measure PAST SURGICAL HISTORY Procedure Laterality Date COLONOSCOPY W/BIOPSY SINGLE/MULTIPLE 12/14/2018 EGD 01/31/2020 ESOPHAGOGASTRODUODENOSCOPY TRANSORAL DIAGNOSTIC 04/11/2005 EGD ESOPHAGOGASTRODUODENOSCOPY TRANSORAL DIAGNOSTIC 03/06/2017 EGD GASTRIC BYPASS, TATI-EN-Y 11/08/2020 w/ Lap hiatal hernia repair LAP REPAIR, PARAESOPHAGEAL HIATAL HERNIA 11/08/2020 LAPAROSCOPY SURG CHOLECYSTECTOMY 03/21/2016 REDUCTION OF LARGE BREAST 2014 TONSILLECTOMY AND ADENOIDECTOMY AGE 11/> 2002 DR. EASTMAN ALLERGIES Aciphex [Rabeprazole Sodium], Entex Pse [Pseudoephedrine-Guaifenesin], Nexium [Esomeprazole Magnesium], Prevacid [Lansoprazole], Prilosec [Omeprazole], Sulfa (Sulfonamide Antibiotics), and Wellbutrin [Bupropion Hcl] MEDICATIONS Current Outpatient Medications Medication Sig meclizine (ANTIVERT) 25 mg tab Take 1 tablet by mouth three times a day as needed (vertigo). lamoTRIgine (LAMICTAL) 200 mg tablet Take 1 tablet by mouth daily at bedtime. ondansetron orally disintegrating (ZOFRAN ODT) 4 mg disintegrating tablet Take 1 tablet by mouth every 6 hours as needed for nausea/vomiting. gabapentin (NEURONTIN) 100 mg capsule Take 1 capsule by mouth three times a day for 90 days. metFORMIN ER (GLUCOPHAGE XR) 500 mg 24 hr tablet Take 4 tablets by mouth daily with dinner. venlafaxine (EFFEXOR) 37.5 mg tablet Take 1 tablet by mouth two times a day. take with 75mg tablet in the morning and in the evening. (Patient not taking: Reported on 06/16/2023) norgestimate 0.25 mg-ethinyl estradiol 35 mcg (TAMARA) 0.25-35 mg-mcg per tablet Take 1 tablet by mouth once daily. Take active pills only. No inactive week. ARIPiprazole (ABILIFY) 2 mg tablet Take 1 tablet by mouth once daily. venlafaxine (EFFEXOR) 75 mg tablet Take 1 tablet by mouth two times a day. cyclobenzaprine (FLEXERIL) 10 mg tablet Take 1 tablet by mouth three times a day as needed for muscle spasm. iron polysaccharide complex (FERREX-150) 150 mg iron capsule Take 1 capsule by mouth twice daily. Multivitamin capsule Take 1 capsule by mouth once daily. BIOTIN, BULK, MISC cholecalciferol, vitamin D3, (VITAMIN D3 ORAL) Take by mouth. ascorbic acid (VITAMIN C ORAL) Take by mouth. No current facility-administered medications for this visit. FAMILY HISTORY Problem Relation Age of Onset Arthritis Mother Diabetes Mother Headache Father Lipids Father Headache Sister Diabetes Maternal Grandfather Stroke Maternal Grandfather Alcohol/Drug Paternal Grandmother ETOH Alcohol/Drug Paternal Grandfather ETOH Cancer Paternal Grandfather LUNG Alcohol/Drug Paternal Aunt ETOH Alcohol/Drug Paternal Uncle ETOH Cancer Paternal Uncle LUNG Social History Tobacco Use Smoking status: Former Packs/day: 0.50 Years: 12.00 Additional pack years: 0.00 Total pack years: 6.00 Types: Cigarettes Quit date: 07/22/2013 Years since quittin.4 Smokeless tobacco: Never Vaping Use Vaping Use: Never used Substance Use Topics Alcohol use: Yes Comment: Rarely Drug use: No REVIEW OF SYSTEMS GENERAL: No weight loss, malaise or (more content not included)...[facility]07-08-2024 Telephone encounter Note* Telephone Encounter - Cong Kunz LPN - 11/30/2023 10:35 AM EDT Patient is asking for meclizine to be filled. Order is pending. [facility] Miscellaneous Notes* Telephone Encounter - Cong Kunz LPN - 11/30/2023 10:35 AM EDT Patient is asking for meclizine to be filled. Order is pending. * Telephone Encounter - Bettina Fuentes APRN.CNS - 11/30/2023 9:51 AM EDT Please clarify what medication patient needs? Meclizine does not help with neck pain. Her gabapentin is also . At 1 point she had cyclobenzaprine, muscle relaxer documented in [facility] Telephone encounter Note * Telephone Encounter - Bettina Fuentes APRN.CNS - 11/30/2023 9:51 AM EDT Please clarify what medication patient needs? Meclizine does not help with neck pain. Her gabapentin is also . At 1 point she had cyclobenzaprine, muscle relaxer [facility] Telephone encounter Note* Telephone Encounter - Ellie Kwong LPN - 11/17/2023 9:14 AM EDT Prescription Refill Information The patient has been identified by name and date of : Yes Caregiver verified no other encounters exist for this prescription request: Yes Caregiver confirmed with patient/requestor that no other refills are due, in the near future, with this provider at this time: Yes The last office visit in the department: 04/29/2023 Does the patient have a future office visit with this provider/department: No Requested Prescriptions Pending Prescriptions Disp Refills lamoTRIgine (LAMICTAL) 200 mg tablet 90 tablet 1 Sig: Take 1 tablet by mouth daily at bedtime. Ellie Kwong LPN November 17, 2023 9:14 AM [facility] Miscellaneous Notes* Telephone Encounter - Ellie Kwong LPN - 11/17/2023 9:14 AM EDT Prescription Refill Information The patient has been identified by name and date of : Yes Caregiver verified no other encounters exist for this prescription request: Yes Caregiver confirmed with patient/requestor that no other refills are due, in the near future, with this provider at this time: Yes The last office visit in the department: 04/29/2023 Does the patient have a future office visit with this provider/department: No Requested Prescriptions Pending Prescriptions Disp Refills lamoTRIgine (LAMICTAL) 200 mg tablet 90 tablet 1 Sig: Take 1 tablet by mouth daily at bedtime. Ellie Kwong LPN November 17, 2023 9:14 AM documented in this encounterMercy [facility]06-[facility]24 Instructions* Patient Instructions* Claudia Finch APRN.AGENCY OWNER - 11/13/2023 10:46 AM EDT Get the labwork. Try the zofran. [place]ock diet and advance as tolerated. Send me an update early next week. Stomach Flu (Viral Gastroenteritis) What is stomach flu? Stomach flu is a viral infection that affects the stomach and small intestine. It is also called viral gastroenteritis. The illness is usually brief, lasting 1 to 3 days. How does it occur? Many different viruses can cause gastroenteritis, including rotaviruses, adenoviruses, and the Lebec virus. Gastroenteritis is caused by swallowing one of these viruses. The body fluids of infectedpeople contain the virus, sometimes even before their symptoms begin. The virus can be spread by direct contact with an infected person (for example, kissing or shaking hands) or by sharing food, drink, or eating utensils. The virus enters the stomach and intestine and inflames the lining of these organs. As a result, the stomach and intestine are temporarily unable to perform their usual functions. The virus can also cause food to move more rapidly through your gastrointestinal (GI) tract. Some bacteria, parasites, medicines, or other medical conditions can cause infections that have symptoms similar to those of stomach flu. If your symptoms are unusually severe or last longer than a few days, your health care provider can determine if the diarrhea is caused by a virus or by something else. What are the symptoms? When you have stomach flu, you may have one or more of the following symptoms: nausea vomiting stomach cramps diarrhea mild fever fatigue chills loss of appetite muscle aches. The illness may develop over a period of hours, or it may suddenly start with stomach cramps, vomiting, or diarrhea. How is it diagnosed? Your health care provider will review your symptoms. He or she may examine you and order lab tests to rule out more serious illnesses, such as appendicitis, and to detect complications, such as dehydration. How is it treated? The most important thing to do is to rest the stomach and intestines. You can do this by first eating nothing solid and drinking only clear liquids. A little later you can eat soft bland foods that are easy to digest. If you have been vomiting a lot, it is best to have only small, frequent sips of liquids. Drinking too much at once, even an ounce or two, may cause more vomiting. Your choice of liquids is important. If water is the only liquid you can drink without vomiting, that is okay. However, if you have been vomiting often for a long time, you must replace the minerals,sodium and potassium, that are lost when you vomit. Ask your health care provider what sport drinksor other commercial electrolyte replacement drinks could help you replace these minerals. Other clear liquids you can drink are weak tea and apple juice. You may also drink soft drinks without caffeine (such as 7-UP) after letting them go flat (lose their carbonation). Chilling the liquids may help you keep them down. Avoid liquids that are acidic (such as orange juice) or caffeinated (such as coffee) or have a lot of carbonation. Do not drink milk until you no longer have diarrhea. You may start eating soft bland foods when you have not vomited for several hours and are able to drink clear liquids without further upset. Soda crackers, toast, plain noodles, gelatin, eggs, applesauce, and bananas are good first choices. Avoid foods that are acidic, spicy, fatty, or fibrous (such as meats, coarse grains, vegetables). Also avoid dairy products. You may start eating these foods again in 3 days or so, when all signs of illness have passed. Sometimes treatment includes prescription medicine to prevent nausea and vomiting or diarrhea. Nonprescription medicine is available for the treatment of diarrhea and can be very effective. If you use it, make sure you use only the dose recommended on the package. If you have chronic health problems, always check with your health care provider before you use any medicine for diarrhea. If you have been vomiting for more than a day or have had diarrhea for over 3 days, call your health care provider. You may need to have an exam to rule out more serious problems and to check for dehydration. You may also need to have lab tests to determine whether bacteria or germs such as giardiaare causing your illness. Dehydration is a potentially serious complication of stomach flu. It can occur if your body loses too much fluid because you keep vomiting or having diarrhea. If you are severely dehydrated, you may need to be given fluids intravenously (IV). In children and older adults, dehydration can quickly become life threatening. How long do the effects last? Stomach flu rarely lasts longer than 1 to 3 days. However, it may be 1 to 2 weeks before your bowelhabits return completely to normal. How can I take care of myself? Rest your stomach and intestines by following the guidelines above, but make sure you prevent dehydration by drinking enough liquids. Drink just small amounts often during the vomiting phase of your illness. Do not take aspirin, ibuprofen, or other NSAIDS without checking first with your health care provider. Call your health care provider if: Your symptoms are getting worse. You continue to have severe symptoms for more than 2 or 3 days, or you are just not getting better after a few days. You develop symptoms that are not usually caused by stomach flu, such as blood in your vomit, bloody diarrhea, or severe abdominal pain. What can I do to help prevent stomach flu? The single, most helpful way to prevent the spread of stomach flu is frequent, thorough hand washing. Also, avoid contact with the body fluids of an infected person, including saliva. Don't share food with someone who has stomach flu. Published by [employer]. This content is reviewed periodically and is subject to change as new health information becomes available. The information is intended to inform and educate and is not a replacement for medical evaluation, advice, diagnosis or treatment by a healthcare professional. Developed by [employer]. Copyright 2004 [employer] and/or one of its subsidiaries. All Rights Reserved. Special Instructions: Copyright [employer] 2006 Adult [employer] Advisor Copyright 2006 [employer]. All rights reserved. www.[employer] documented in this encounterMercy [facility] Hospital06-21-2024 History of Present illness Narrative* Claudia Finch APRN.RACHID - 11/13/2023 10:04 AM EDT This is a 43 year old female who presents today with: Patient presents with: Acute Visit: Started last week with diarrhea, nausea, stomach bloating, some vomiting and abd pain HISTORY OF PRESENT ILLNESS: Fernanda Hernandez is a 43 year old female. Patient presents with: Acute Visit: Started last week with diarrhea, nausea, stomach bloating, some vomiting and abd pain Pt presents with nausea, diarrhea, vomiting, headache and body x 1 week Pt was recently in [place] Last week: episodes of diarrhea with some improvement Thursday started noticing body aches Epigastric pain after eating following with vomiting it up BM this am was small, soft, and brown Last time vomiting was last night No lightheaded, dizziness Pt states she did not try any new foods while in [place] Pt tolerating fluids okay Pt taking tylenol for body aches Denies heartburn/reflux. Pain primarily in the epigastric and left upper abdomen. Had a normal upper GI in August. PAST MEDICAL HISTORY: PAST MEDICAL HISTORY Diagnosis Date Delayed emergence from general anesthesia Fibromyalgia 08/20/2016 GERD (gastroesophageal reflux disease) 03/12/2009 Hypoglycemia, unspecified Mental disorder anxiety and depression Migraine without aura 2001 Morbid obesity (HCC) Normal cardiac stress test 01/23/12 PONV (postoperative nausea and vomiting) Sleep apnea Snoring Unspecified prophylactic or treatment measure PAST SURGICAL HISTORY Procedure Laterality Date COLONOSCOPY W/BIOPSY SINGLE/MULTIPLE 12/14/2018 EGD 01/31/2020 ESOPHAGOGASTRODUODENOSCOPY TRANSORAL DIAGNOSTIC 04/11/2005 EGD ESOPHAGOGASTRODUODENOSCOPY TRANSORAL DIAGNOSTIC 03/06/2017 EGD GASTRIC BYPASS, TATI-EN-Y 11/08/2020 w/ Lap hiatal hernia repair LAP REPAIR, PARAESOPHAGEAL HIATAL HERNIA 11/08/2020 LAPAROSCOPY SURG CHOLECYSTECTOMY 03/21/2016 REDUCTION OF LARGE BREAST 2014 TONSILLECTOMY & ADENOIDECTOMY AGE 11/> 2002 DR. EASTMAN ALLERGIES Aciphex [Rabeprazole Sodium], Entex Pse [Pseudoephedrine-Guaifenesin], Nexium [Esomeprazole Magnesium], Prevacid [Lansoprazole], Prilosec [Omeprazole], Sulfa (Sulfonamide Antibiotics), and Wellbutrin [Bupropion Hcl] MEDICATIONS Current Outpatient Medications Medication Sig gabapentin (NEURONTIN) 100 mg capsule Take 1 capsule by mouth three times a day for 90 days. metFORMIN ER (GLUCOPHAGE XR) 500 mg 24 hr tablet Take 4 tablets by mouth daily with dinner. venlafaxine (EFFEXOR) 37.5 mg tablet Take 1 tablet by mouth two times a day. take with 75mg tablet in the morning and in the evening. (Patient not taking: Reported on 06/16/2023) norgestimate 0.25 mg-ethinyl estradiol 35 mcg (TAMARA) 0.25-35 mg-mcg per tablet Take 1 tablet by mouth once daily. Take active pills only. No inactive week. lamoTRIgine (LAMICTAL) 200 mg tablet Take 1 tablet by mouth daily at bedtime. ARIPiprazole (ABILIFY) 2 mg tablet Take 1 tablet by mouth once daily. venlafaxine (EFFEXOR) 75 mg tablet Take 1 tablet by mouth two times a day. cyclobenzaprine (FLEXERIL) 10 mg tablet Take 1 tablet by mouth three times a day as needed for muscle spasm. iron polysaccharide complex (FERREX-150) 150 mg iron capsule Take 1 capsule by mouth twice daily. Multivitamin capsule Take 1 capsule by mouth once daily. BIOTIN, BULK, MISC cholecalciferol, vitamin D3, (VITAMIN D3 ORAL) Take by mouth. ascorbic acid (VITAMIN C ORAL) Take by mouth. No current facility-administered medications for this visit. FAMILY HISTORY Problem Relation Age of Onset Arthritis Mother Diabetes Mother Headache Father Lipids Father Headache Sister Diabetes Maternal Grandfather Stroke Maternal Grandfather Alcohol/Drug Paternal Grandmother ETOH Alcohol/Drug Paternal Grandfather ETOH Cancer Paternal Grandfather LUNG Alcohol/Drug Paternal Aunt ETOH Alcohol/Drug Paternal Uncle ETOH Cancer Paternal Uncle LUNG Social History Tobacco Use Smoking status: Former Packs/day: 0.50 Years: 12.00 Additional pack years: 0.00 Total pack years: 6.00 Types: Cigarettes Quit date: 07/22/2013 Years since quittin.3 Smokeless tobacco: Never Vaping Use Vaping Use: Never used Substance Use Topics Alcohol use: Yes Comment: Rarely Drug use: No EXAM: BP 128/90 Pulse 66 Resp 16 LMP (LMP Unknown) SpO2 97% PHYSICAL EXAM: General Appearance: Well appearing, alert, in no acute distress, well-hydrated, well nourished.. Skin: Skin color, texture, turgor normal, no suspicious rashes or lesions. Head: Normocephalic, no masses, lesions, tenderness or abnormalities. Eyes: Anicteric sclera. Extraocular movements are intact. . Neck: Supple, no adenopathy; thyroid symmetric, normal size, no bruits. Lungs: Lungs clear to auscultation. No wheezing, rhonchi, rales.. Heart: RRR without murmur, gallop, or rubs. No ectopy. Abdomen: Bowel sounds normal. Abdominal tenderness LUQ and epigastric region. No masses, organomegaly. Extremities: No deformities, edema, skin discoloration, clubbing or cyanosis. Good capillary refill. . Neurologic: Gait normal. ASSESSMENT/PLAN: 1. Nausea and vomiting, unspecified vomiting type - ICD9: 787.01, ICD10: R11.2 (primary diagnosis) Will go ahead and start zofran. Discussed bland diet and advance as tolerated. Stay well hydrated. Will get labs. If abnormal labs or worsening symptoms, consider imaging. - ONDANSETRON 4 MG DISINTEGRATING TABLET - COMPLETE BLOOD COUNT AND DIFFERENTIAL - COMPREHENSIVE METABOLIC PANEL - LIPASE - MAGNESIUM 2. Pain of upper abdomen - ICD9: 789.09, ICD10: R10.10 - Labs of CBC with Diff, CMP, Iron/TIBC, Ferritin, and Lipase - [place] low residue diet - follow up early next week via [employer] messaging to update us on progress - if new/worsening symptoms, go to the ER 3. Iron deficiency anemia, unspecified iron deficiency anemia type - ICD9: 280.9, ICD10: D50.9 - FERRITIN - IRON AND TIBC Discussed treatment plan and patient voices understanding. Patient's questions answered appropriately. Medications and potential side effects were discussed and patient voices understanding. Return to the office as scheduled or as needed for worsening/no improvement. Claudia Finch APRN.RACHID The patient indicates understanding of these issues and agrees with the plan. documented in this encounterMercy [facility] Hospital04-24-2024 History of Present illness Narrative* Fanta Martinez - 09/16/2023 1:21 PM EDT POPULATION HEALTH NAVIGATION OUTREACH Action/FYI RP Patient Outreach: Spoke with patient to schedule Provider ordered Behavioral Health follow up. Patient declined to schedule follow up. Reason for Outreach Care Gap/HCC or Scheduling Wellness Visits Care Gaps due: Follow-up Appointment Patient Contacted: Spoke to patient/parent/or legal guardian Patient identified by name and : Yes Care Gap/HCC/Scheduling Wellness actions taken: Patient declined: Not interested in scheduling Navigation Signature: Fanta Aguilar September 16, 2023 1:21 PM documented in this encounterMercy [facility] Hospital04-05-2024 Miscellaneous Notes* Allied Health - Vanna Orta RT(R) - 08/28/2023 9:00 AM EDT Radiology Service Progress Note PATIENT NAME: Fernanda Hernandez DATE OF SERVICE: August 28, 2023 TIME: 9:47 AM PATIENT IDENTITY VERIFICATION COMPLETED USING TWO (2) IDENTIFIERS: Name and Date of confirmedby patient verbally. FALL SCREENING: Has the patient had 2 falls in the last year or 1 fall with injury or currently using an Ambulatory Assistive Device (Walker, Cane, Wheelchair, Crutches, etc.)? No PATIENT GENDER DATA: Female. status: : No status: NO. PATIENT RELEVANT IMPLANT DATA REVIEWED: Not Applicable PATIENT PRESENTS WITH AN IMPLANTABLE OR ATTACHED REGULATORY LEAD: No RADIOLOGY DEPARTMENT: General X-ray: Exam(s) Completed: GI/ Procedure(s): Upper GI with barium contrast PERIPHERAL IV DATA: Not applicable SIGNED BY: RT Mandy(R) August 28, 2023 9:47 AM documented in this encounterMercy Memorial Hospital04-04-2024 Miscellaneous Notes* Telephone Encounter - Deanna Sadler, RN - 08/27/2023 4:43 PM EDT Spoke with patient. Given message from provider's office. Patient verbalizes understanding. Deanna Sadler RN * Telephone Encounter - Kerry Marie OCCA - 08/27/2023 9:57 AM EDT TC to patient with no answer. Left VM to return call to office to receive results. MABLE Hdez * Telephone Encounter - Faith Deluna APRN.CNP - 08/27/2023 6:53 AM EDT Can you please call the patient and let her know that I reviewed her x-ray results. X-ray of cervical spine shows some straightening but no arthritis or foraminal narrowing is noted. X-ray of the lumbar spine shows arthritis. I would recommend she continue supportive care at home. Heat, ice, gentle stretching. She may continue with the gabapentin due to radiating symptoms down into the arm. I would recommend that she keep upcoming appointment with pain management. Please let me know if she has any questions. Thank you. Faith Deluna APRN.AGENCY OWNER documented in this encounterMercy Memorial Hospital03-29-2024 History of Present illness Narrative* Cher Garcia RT(R) - 08/21/2023 11:00 AM EDT Radiology Service Progress Note PATIENT NAME: Fernanda Hernandez DATE OF SERVICE: August 21, 2023 TIME: 10:58 AM PATIENT IDENTITY VERIFICATION COMPLETED USING TWO (2) IDENTIFIERS: Name and Date of confirmedby patient verbally. FALL SCREENING: Has the patient had 2 falls in the last year or 1 fall with injury or currently using an Ambulatory Assistive Device (Walker, Cane, Wheelchair, Crutches, etc.)? No PATIENT GENDER DATA: Female. status: : No status: NO. PATIENT RELEVANT IMPLANT DATA REVIEWED: Not Applicable PATIENT PRESENTS WITH AN IMPLANTABLE OR ATTACHED REGULATORY LEAD: No RADIOLOGY DEPARTMENT: General X-ray: Exam(s) Completed: Spine X-Ray(s): Cervical AP / LAT / OBL andLumbar AP / LAT / L5-S1 PERIPHERAL IV DATA: Not applicable SIGNED BY: RT Singh(R) August 21, 2023 10:58 AM documented in this encounterMercy [facility] Hospital03-27-2024 Miscellaneous Notes* Telephone Encounter - Clive Zuniga DO - 08/19/2023 9:23 AM EDT Please restart the metformin and hold the phentermine. Increase the metformin every 2 weeks until on 4 tablets once a day with dinner. documented in this encounterMercy [facility] Hospital03-25-2024 Miscellaneous Notes* Telephone Encounter - Ellie Kwong LPN - 08/17/2023 4:40 PM EDT Patient has been identified by name and date of : Yes Requested Prescriptions Signed Prescriptions Disp Refills hydrOXYzine HCl (ATARAX) 25 mg tablet Sig: Take 1 tablet by mouth three times a day as needed. Authorizing Provider: CLIVE ZUNIGA metFORMIN ER (GLUCOPHAGE XR) 500 mg 24 hr tablet 120 tablet 5 Sig: Take 4 tablets by mouth daily with dinner. Authorizing Provider: CLIVE ZUNIGA JADEN: 04/29/2023 FOV: none scheduled RX INSTRUCTIONS: Pharmacy initiated this request. No need to notify patient. [place] Farhat, ENGAGEMENT DIRECTOR documented in this encounterMercy Memorial Hospital03-25-2024 Miscellaneous Notes* Telephone Encounter - Baltazar Villalta LPN - 08/17/2023 2:32 PM EDT Sent to provider via another encounter documented in this encounterMercy Memorial Hospital03-21-2024 History of Present illness Narrative* Mandie Garcia PA-C - 08/13/2023 11:08 AM EDT 43 year old female with c/o pain, burning, tinging down left arm over 5 days, at night when laying down, just below elbow, laterally into fingers but not thumb 2 days ago started happening in the daytime. Later in the visit patient also identified pain and tingling in left leg Rates 6/10 in arm Rates left leg 4-5/10 lateral aspect just above knee to lateral mid-lower leg. Feels like has to stretch muscle. Tried to massage, felt like it made it worse. Tried an over the counter cream that starts with an a. No weakness, loss No change in vision, no headaches. No neck or neck pain. Some pain in low back across lumbar, non-radiating. Not using flexeril HISTORIES FAMILY HISTORY Problem Relation Age of Onset Arthritis Mother Diabetes Mother Headache Father Lipids Father Headache Sister Diabetes Maternal Grandfather Stroke Maternal Grandfather Alcohol/Drug Paternal Grandmother ETOH Alcohol/Drug Paternal Grandfather ETOH Cancer Paternal Grandfather LUNG Alcohol/Drug Paternal Aunt ETOH Alcohol/Drug Paternal Uncle ETOH Cancer Paternal Uncle LUNG PAST MEDICAL HISTORY Diagnosis Date Delayed emergence from general anesthesia Fibromyalgia 08/20/2016 GERD (gastroesophageal reflux disease) 03/12/2009 Hypoglycemia, unspecified Mental disorder anxiety and depression Migraine without aura 2001 Morbid obesity (HCC) Normal cardiac stress test 01/23/12 PONV (postoperative nausea and vomiting) Sleep apnea Snoring Unspecified prophylactic or treatment measure PAST SURGICAL HISTORY Procedure Laterality Date COLONOSCOPY W/BIOPSY SINGLE/MULTIPLE 12/14/2018 EGD 01/31/2020 ESOPHAGOGASTRODUODENOSCOPY TRANSORAL DIAGNOSTIC 04/11/2005 EGD ESOPHAGOGASTRODUODENOSCOPY TRANSORAL DIAGNOSTIC 03/06/2017 EGD GASTRIC BYPASS, TATI-EN-Y 11/08/2020 w/ Lap hiatal hernia repair LAP REPAIR, PARAESOPHAGEAL HIATAL HERNIA 11/08/2020 LAPAROSCOPY SURG CHOLECYSTECTOMY 03/21/2016 REDUCTION OF LARGE BREAST 2014 TONSILLECTOMY & ADENOIDECTOMY AGE 11/> 2002 DR. EASTMAN Social History Tobacco Use Smoking status: Former Packs/day: 0.50 Years: 12.00 Additional pack years: 0.00 Total pack years: 6.00 Types: Cigarettes Quit date: 07/22/2013 Years since quittin.0 Smokeless tobacco: Never Vaping Use Vaping Use: Never used Substance Use Topics Alcohol use: Yes Comment: Rarely Drug use: No ACTIVE PROBLEM LIST Gerd (Gastroesophageal Reflux Disease) Lumbago Morbid Obesity (Hcc) Fibromyalgia Paroxysmal Hemicrania, Chronic Cervical Spinal Stenosis Foraminal Stenosis of Cervical Region Irritable Bowel Syndrome With Diarrhea Cervicothoracic Somatic Dysfunction Anxiety Disorder Polypharmacy [place] (Obstructive Sleep Apnea) Acute Pain of Left Shoulder Major Depressive Disorder, Recurrent Episode, Moderate (Hcc) Current Outpatient Medications Medication Sig Dispense Refill norgestimate 0.25 mg-ethinyl estradiol 35 mcg (TAMARA) 0.25-35 mg-mcg per tablet Take 1 tablet by mouth once daily. Take active pills only. No inactive week. 112 tablet 3 lamoTRIgine (LAMICTAL) 200 mg tablet Take 1 tablet by mouth daily at bedtime. 90 tablet 1 ARIPiprazole (ABILIFY) 2 mg tablet Take 1 tablet by mouth once daily. 90 tablet 1 venlafaxine (EFFEXOR) 75 mg tablet Take 1 tablet by mouth two times a day. 180 tablet 1 iron polysaccharide complex (FERREX-150) 150 mg iron capsule Take 1 capsule by mouth twice daily. 60 capsule 5 Multivitamin capsule Take 1 capsule by mouth once daily. BIOTIN, BULK, MISC cholecalciferol, vitamin D3, (VITAMIN D3 ORAL) Take by mouth. ascorbic acid (VITAMIN C ORAL) Take by mouth. metFORMIN ER (GLUCOPHAGE XR) 500 mg 24 hr tablet Take 2 tablets by mouth daily with dinner. (Patient not taking: Reported on 08/13/2023) 60 tablet 5 venlafaxine (EFFEXOR) 37.5 mg tablet Take 1 tablet by mouth two times a day. take with 75mg tablet in the morning and in the evening. (Patient not taking: Reported on 06/16/2023) 60 tablet 1 hydrOXYzine HCl (ATARAX) 25 mg tablet Take 1 tablet by mouth three times a day as needed for anxiety. 90 tablet 1 topiramate (TOPAMAX) 25 mg tablet Take 1 tablet by mouth two times a day. (Patient not taking: Reported on 06/16/2023) 60 tablet 5 fluticasone (FLONASE) 50 mcg/actuation nasal spray Use 2 Sprays in each nostril once daily. Rinse mouth after use. 18.2 mL 0 cyclobenzaprine (FLEXERIL) 10 mg tablet Take 1 tablet by mouth three times a day as needed for muscle spasm. 30 tablet 1 acetaminophen 325 mg-caffeine 40 mg-butalbital 50 mg (ESGIC) per capsule Take 1 capsule by mouth every 4 hours as needed. (Patient not taking: Reported on 08/13/2023) 20 capsule 0 No current facility-administered medications for this visit. There are no preventive care reminders to display for this patient. EXAM: BP 124/82 Pulse 75 Wt 112.9 kg (249 lb) LMP (LMP Unknown) SpO2 98% BMI 44.11 kg/m Pleasant morbidly obese adult woman in no acute distress. Alert and oriented all spheres. Normal affect and cognition. Speech normal. No deficits to learning or comprehension. Skin warm, dry, pink to lips and nailbeds. Normal turgor. Respirations regular and unlabored. Patient has intact sensation to light touch, differentiation is sharp and dull in upper extremities. Neck supple, full range of motion. Motor strength is full to hand grasp, biceps, triceps. Patient identifies nidus of pain in the leftforearm pronator trigger points. She is able to resist opposition to little finger strength bilaterally. Tinel's sign negative at wrist, cubital outlet, ulnar groove. Patient does have trigger points in the upper left scapular back, trapezius, forearm medial pronator group. She does have tenderness over the lateral thigh and lateral calf in the left leg. DTRs are 2+ out of 4 and symmetric knee jerk and Achilles, biceps, triceps, brachioradialis. Myofascial release to these areas did improve symptoms slightly. ASSESSMENT/PLAN: 1. Pain in left arm - ICD9: 729.5, ICD10: M79.602 (primary diagnosis) 2. Pain in left leg - ICD9: 729.5, ICD10: M79.605 Etiology unclear, no evidence of neurologic deficits or strength. Suspect may be related to sleeping in position because mild neuropathy Trial of a short 5-day burst of prednisone to see if it. If persistent, will proceed with additional studies such as NCS/EMG. - PREDNISONE 20 MG TABLET Some of this note may have been copied and pasted for the purpose of history context and comparisonand has been adjusted for changes in prior data. Mandie Garcia PA-C documented in this encounterMercy Memorial Hospital03-13-2024 Miscellaneous Notes* Letter - Coordinator, Mammography - 08/05/2023 1:19 PM EDT August 05, 2023 PID: [id number] Fernanda Hernandez [address] [place] [address] Dear Ms. Hernandez, We are pleased to inform you that the results of your recent breast imaging exam on 08/05/2023 are normal. Early detection of cancer is very important. We also understand recommendations regarding breast cancer screening are controversial. Please discuss with your primary care provider which strategy is best for you and whether a mammogram is right for you. Your imaging studies and report will [facility] part of [facility] permanent medical record and are available for your continuing care. Thank you for allowing us to help in meeting your health care needs. Sincerely, Dr. Ashley Interpreting Radiologist [facility] (Normal over 40) documented in this encounterMercy Memorial Hospital03-13-2024 History of Present illness Narrative* Pramod Rosenbaum, RT(R) - 08/05/2023 10:10 AM EDT Radiology Service Progress Note PATIENT NAME: Fernanda Hernandez DATE OF SERVICE: August 05, 2023 TIME: 10:03 AM PATIENT IDENTITY VERIFICATION COMPLETED USING TWO (2) IDENTIFIERS: Name and Date of confirmedby patient verbally. FALL SCREENING: Has the patient had 2 falls in the last year or 1 fall with injury or currently using an Ambulatory Assistive Device (Walker, Cane, Wheelchair, Crutches, etc.)? No PATIENT GENDER DATA: Female. status: : No status: NO. PATIENT RELEVANT IMPLANT DATA REVIEWED: Not Applicable PATIENT PRESENTS WITH AN IMPLANTABLE OR ATTACHED REGULATORY LEAD: No RADIOLOGY DEPARTMENT: Mammography PERIPHERAL IV DATA: Not applicable SIGNED BY: RT Hayden(R) August 05, 2023 10:03 AM documented in this encounterMercy Memorial Hospital03-11-2024 Instructions* Patient Instructions* Mandie Garcia PA-C - 08/03/2023 11:45 AM EDT Push fluids. documented in this encounterMercy Memorial Hospital03-11-2024 History of Present illness Narrative* Mandie Garcia PA-C - 08/03/2023 11:23 AM EDT 43 year old female with c/o after last adjustment Thursday night after eating out felt off balance, didn't feel right. Throat was itchy, mild head ache. Last night dizzy, fuzzy, off balance. Left neck pinched Sinuses hurt. No fever. No cough, clearing throat a lot Diarrhea x 1. 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 HISTORIES FAMILY HISTORY Problem Relation Age of Onset Arthritis Mother Diabetes Mother Headache Father Lipids Father Headache Sister Diabetes Maternal Grandfather Stroke Maternal Grandfather Alcohol/Drug Paternal Grandmother ETOH Alcohol/Drug Paternal Grandfather ETOH Cancer Paternal Grandfather LUNG Alcohol/Drug Paternal Aunt ETOH Alcohol/Drug Paternal Uncle ETOH Cancer Paternal Uncle LUNG PAST MEDICAL HISTORY Diagnosis Date Delayed emergence from general anesthesia Fibromyalgia 08/20/2016 GERD (gastroesophageal reflux disease) 03/12/2009 Hypoglycemia, unspecified Mental disorder anxiety and depression Migraine without aura 2001 Morbid obesity (HCC) Normal cardiac stress test 01/23/12 PONV (postoperative nausea and vomiting) Sleep apnea Snoring Unspecified prophylactic or treatment measure PAST SURGICAL HISTORY Procedure Laterality Date COLONOSCOPY W/BIOPSY SINGLE/MULTIPLE 12/14/2018 EGD 01/31/2020 ESOPHAGOGASTRODUODENOSCOPY TRANSORAL DIAGNOSTIC 04/11/2005 EGD ESOPHAGOGASTRODUODENOSCOPY TRANSORAL DIAGNOSTIC 03/06/2017 EGD GASTRIC BYPASS, TATI-EN-Y 11/08/2020 w/ Lap hiatal hernia repair LAP REPAIR, PARAESOPHAGEAL HIATAL HERNIA 11/08/2020 LAPAROSCOPY SURG CHOLECYSTECTOMY 03/21/2016 REDUCTION OF LARGE BREAST 2014 TONSILLECTOMY & ADENOIDECTOMY AGE 11/> 2002 DR. EASTMAN Social History Tobacco Use Smoking status: Former Packs/day: 0.50 Years: 12.00 Additional pack years: 0.00 Total pack years: 6.00 Types: Cigarettes Quit date: 07/22/2013 Years since quittin.0 Smokeless tobacco: Never Vaping Use Vaping Use: Never used Substance Use Topics Alcohol use: Yes Comment: Rarely Drug use: No ACTIVE PROBLEM LIST Gerd (Gastroesophageal Reflux Disease) Lumbago Morbid Obesity (Hcc) Fibromyalgia Paroxysmal Hemicrania, Chronic Cervical Spinal Stenosis Foraminal Stenosis of Cervical Region Irritable Bowel Syndrome With Diarrhea Cervicothoracic Somatic Dysfunction Anxiety Disorder Polypharmacy [place] (Obstructive Sleep Apnea) Acute Pain of Left Shoulder Major Depressive Disorder, Recurrent Episode, Moderate (Hcc) Current Outpatient Medications Medication Sig Dispense Refill metFORMIN ER (GLUCOPHAGE XR) 500 mg 24 hr tablet Take 2 tablets by mouth daily with dinner. 60 tablet 5 hydrOXYzine HCl (ATARAX) 25 mg tablet Take 1 tablet by mouth three times a day as needed for anxiety. 90 tablet 1 norgestimate 0.25 mg-ethinyl estradiol 35 mcg (TAMARA) 0.25-35 mg-mcg per tablet Take 1 tablet by mouth once daily. Take active pills only. No inactive week. 112 tablet 3 lamoTRIgine (LAMICTAL) 200 mg tablet Take 1 tablet by mouth daily at bedtime. 90 tablet 1 ARIPiprazole (ABILIFY) 2 mg tablet Take 1 tablet by mouth once daily. 90 tablet 1 venlafaxine (EFFEXOR) 75 mg tablet Take 1 tablet by mouth two times a day. 180 tablet 1 fluticasone (FLONASE) 50 mcg/actuation nasal spray Use 2 Sprays in each nostril once daily. Rinse mouth after use. 18.2 mL 0 cyclobenzaprine (FLEXERIL) 10 mg tablet Take 1 tablet by mouth three times a day as needed for muscle spasm. 30 tablet 1 acetaminophen 325 mg-caffeine 40 mg-butalbital 50 mg (ESGIC) per capsule Take 1 capsule by mouth every 4 hours as needed. 20 capsule 0 iron polysaccharide complex (FERREX-150) 150 mg iron capsule Take 1 capsule by mouth twice daily. 60 capsule 5 Multivitamin capsule Take 1 capsule by mouth once daily. BIOTIN, BULK, MISC cholecalciferol, vitamin D3, (VITAMIN D3 ORAL) Take by mouth. ascorbic acid (VITAMIN C ORAL) Take by mouth. venlafaxine (EFFEXOR) 37.5 mg tablet Take 1 tablet by mouth two times a day. take with 75mg tablet in the morning and in the evening. (Patient not taking: Reported on 06/16/2023) 60 tablet 1 topiramate (TOPAMAX) 25 mg tablet Take 1 tablet by mouth two times a day. (Patient not taking: Reported on 06/16/2023) 60 tablet 5 No current facility-administered medications for this visit. Mammogram Screening due on 06/07/2021 EXAM: BP 118/80 Pulse 70 Resp 16 Wt 111.6 kg (246 lb) LMP (LMP Unknown) SpO2 99% BMI 43.58 kg/m Pleasant obese adult woman in no acute distress. Alert and oriented all spheres. Normal affect and cognition. Speech normal. No deficits to learning or comprehension. Skin warm, dry, pink to lips and nailbeds. Normal turgor. Respirations regular and unlabored. Neck is supple, nontender trigger point in the left posterior scalene, left occipitalis, left SCM. Also tender trigger point in left jaw TMJ. Cervical range of motion is actually very decent although she does have some mild discomfort with lateral rotation and sidebending to the left. Extrem: no clubbing or cyanosis. Edema: None. Extremities are warm and pink with prompt capillary refill. OMT: Myofascial release to tender trigger points above, HVLA cautiously C7,right, C5 left. She states uunsure benefit but always needs a day to tell. ASSESSMENT/PLAN: 1. Somatic dysfunction of spine, cervical - ICD9: 739.1, ICD10: M99.01 As been awhile since imaging or PT, discussed and will consider. Ice/ moist heat, lineaments, OTC analgesics as needed. Stretching and posture reviewed. Some of this note may have been copied and pasted for the purpose of history context and comparisonand has been adjusted for changes in prior data. Mandie Garcia PA-C documented in this encounter[facility]03-[facility]24 History of Present illness Narrative* Mandie Garcia PA-C - 07/31/2023 11:45 AM EST 43 year old female with c/o right headache, neck and upper back. No numbness tingling loss of sensation or loss of strength HISTORIES FAMILY HISTORY Problem Relation Age of Onset Arthritis Mother Diabetes Mother Headache Father Lipids Father Headache Sister Diabetes Maternal Grandfather Stroke Maternal Grandfather Alcohol/Drug Paternal Grandmother ETOH Alcohol/Drug Paternal Grandfather ETOH Cancer Paternal Grandfather LUNG Alcohol/Drug Paternal Aunt ETOH Alcohol/Drug Paternal Uncle ETOH Cancer Paternal Uncle LUNG PAST MEDICAL HISTORY Diagnosis Date Delayed emergence from general anesthesia Fibromyalgia 08/20/2016 GERD (gastroesophageal reflux disease) 03/12/2009 Hypoglycemia, unspecified Mental disorder anxiety and depression Migraine without aura 2001 Morbid obesity (HCC) Normal cardiac stress test 01/23/12 PONV (postoperative nausea and vomiting) Sleep apnea Snoring Unspecified prophylactic or treatment measure PAST SURGICAL HISTORY Procedure Laterality Date COLONOSCOPY W/BIOPSY SINGLE/MULTIPLE 12/14/2018 EGD 01/31/2020 ESOPHAGOGASTRODUODENOSCOPY TRANSORAL DIAGNOSTIC 04/11/2005 EGD ESOPHAGOGASTRODUODENOSCOPY TRANSORAL DIAGNOSTIC 03/06/2017 EGD GASTRIC BYPASS, TATI-EN-Y 11/08/2020 w/ Lap hiatal hernia repair LAP REPAIR, PARAESOPHAGEAL HIATAL HERNIA 11/08/2020 LAPAROSCOPY SURG CHOLECYSTECTOMY 03/21/2016 REDUCTION OF LARGE BREAST 2014 TONSILLECTOMY & ADENOIDECTOMY AGE 11/> 2002 DR. EASTMAN Social History Tobacco Use Smoking status: Former Packs/day: 0.50 Years: 12.00 Additional pack years: 0.00 Total pack years: 6.00 Types: Cigarettes Quit date: 07/22/2013 Years since quittin.0 Smokeless tobacco: Never Vaping Use Vaping Use: Never used Substance Use Topics Alcohol use: Yes Comment: Rarely Drug use: No ACTIVE PROBLEM LIST Gerd (Gastroesophageal Reflux Disease) Lumbago Morbid Obesity (Hcc) Fibromyalgia Paroxysmal Hemicrania, Chronic Cervical Spinal Stenosis Foraminal Stenosis of Cervical Region Irritable Bowel Syndrome With Diarrhea Cervicothoracic Somatic Dysfunction Anxiety Disorder Polypharmacy [place] (Obstructive Sleep Apnea) Acute Pain of Left Shoulder Major Depressive Disorder, Recurrent Episode, Moderate (Hcc) Current Outpatient Medications Medication Sig Dispense Refill metFORMIN ER (GLUCOPHAGE XR) 500 mg 24 hr tablet Take 2 tablets by mouth daily with dinner. 60 tablet 5 hydrOXYzine HCl (ATARAX) 25 mg tablet Take 1 tablet by mouth three times a day as needed for anxiety. 90 tablet 1 norgestimate 0.25 mg-ethinyl estradiol 35 mcg (TAMARA) 0.25-35 mg-mcg per tablet Take 1 tablet by mouth once daily. Take active pills only. No inactive week. 112 tablet 3 lamoTRIgine (LAMICTAL) 200 mg tablet Take 1 tablet by mouth daily at bedtime. 90 tablet 1 ARIPiprazole (ABILIFY) 2 mg tablet Take 1 tablet by mouth once daily. 90 tablet 1 venlafaxine (EFFEXOR) 75 mg tablet Take 1 tablet by mouth two times a day. 180 tablet 1 fluticasone (FLONASE) 50 mcg/actuation nasal spray Use 2 Sprays in each nostril once daily. Rinse mouth after use. 18.2 mL 0 cyclobenzaprine (FLEXERIL) 10 mg tablet Take 1 tablet by mouth three times a day as needed for muscle spasm. 30 tablet 1 acetaminophen 325 mg-caffeine 40 mg-butalbital 50 mg (ESGIC) per capsule Take 1 capsule by mouth every 4 hours as needed. 20 capsule 0 iron polysaccharide complex (FERREX-150) 150 mg iron capsule Take 1 capsule by mouth twice daily. 60 capsule 5 Multivitamin capsule Take 1 capsule by mouth once daily. BIOTIN, BULK, MISC cholecalciferol, vitamin D3, (VITAMIN D3 ORAL) Take by mouth. ascorbic acid (VITAMIN C ORAL) Take by mouth. venlafaxine (EFFEXOR) 37.5 mg tablet Take 1 tablet by mouth two times a day. take with 75mg tablet in the morning and in the evening. (Patient not taking: Reported on 06/16/2023) 60 tablet 1 topiramate (TOPAMAX) 25 mg tablet Take 1 tablet by mouth two times a day. (Patient not taking: Reported on 06/16/2023) 60 tablet 5 No current facility-administered medications for this visit. Mammogram Screening due on 06/07/2021 EXAM: BP 116/80 Pulse 66 Resp 16 Wt 111.6 kg (246 lb) LMP (LMP Unknown) SpO2 98% BMI 43.58 kg/m Pleasant obese adult woman in no acute distress. Alert and oriented all spheres. Normal affect and cognition. Speech normal. No deficits to learning or comprehension. Skin warm, dry, pink to lips and nailbeds. Normal turgor. Respirations regular and unlabored. Neck is supple with good ROM in all spheres: no restricted movement Mild TTPs in right SCM anterior and posterior attachments Moderate TTPS semispinalis, rhomboids, teres on left Restrictions in upper and mid thoracic ribs. Extrem: no clubbing or cyanosis. Edema: none. Extremities are warm and pink with prompt capillary refill. HVLA: myofascial release to above TTPs, muscle energy techniques, HVLA to upper and mid thoracic ribs with some improvement though always feels worse after treatment ASSESSMENT/PLAN: 1. Somatic dysfunction of spine, cervical - ICD9: 739.1, ICD10: M99.01 (primary diagnosis) 2. Somatic dysfunction of rib - ICD9: 739.8, ICD10: M99.08 3. Somatic dysfunction of left side of chest wall - ICD9: 739.9, ICD10: M99.08 Ice/ moist heat, lineaments, OTC analgesics as needed. Stretching and posture reviewed. Push fluids Update progress tomorrow through Jocelynn Garcia PA-C documented in this encounterMer[facility]12-[facility]-2023 Miscellaneous Notes* Addendum Note - Davon Downs APRN.CNP - 04/29/2023 12:59 PM ESTAddended by: DAVON DOWNS on: 04/29/2023 12:59 PM Modules accepted: Orders documented in this encounterMer[facility]12-06-2023 Miscellaneous Notes* Telephone Encounter - Ellie Kwong LPN - 04/29/2023 12:26 PM EST 04/29/2023 @ 10:59 - Per Davon Downs, MSN, PMP-, she asked to check on the safety of the patient d/t possible suicidal thoughts. The patient had signed into the 10:30 a.m., appointment at 10:46 which was too late for a virtual visit. Called the patient to check on her safety and reschedule today's appointment. The patient states, she had some passive suicidal thoughts, no plans. The patient was very mad d/t the mixup of today's appointment. Due to a cancellation at 11:00 a.m., the patient was able to be seen by her provider, Davon. Ellie Kwong LPN * Telephone Encounter - Ellie Kwong LPN - 04/29/2023 12:19 PM EST 04/29/2023 @ 10:33 - Called and spoke with patient confirming today's virtual visit at 10:30 AM. Thepatient thought her appointment was at 2:00 p.m.. The patient was currently at the store during thel. She said, she would go to her car for the Zoom call. Ellie Kwong LPN documented in this encounterMer[facility]12-06-2023 History of Present illness Narrative* Davon Downs APRN.RACHID - 04/29/2023 11:08 AM EST FOLLOW UP - PSYCHIATRIC PROGRESS NOTE Visit Type:Virtual Visit utilizing two-way audio and video for at least a portion of the visit. Consent for virtual visit obtained verbally. Confidentiality limitations with virtual visits reviewed with the patient and guardian, if present, who have accepted the risk verbally prior to proceeding with encounter. I have communicated my name and active licensure. The patient's identity and physical location were verified at the time of this visit. Either the patient or their legal sales account representative has been informed of the risks and benefits of -- and alternatives to -- treatment through a remote evaluation and consents to proceed with the evaluation remotely. Reason for Visit: Outpatient follow-up and safety monitoring of previously prescribed psychiatric medication, psychotherapy or other treatment CC: medication management HPI: Fernanda returns for a medication management follow-up appointment. She had signed on 20 minutes latefor her 1030am appointment. rescheduled and saw at 11:08 after the 11am appointment did not show. She was upset about missing her appointment,but calmed down when this provider could fit her in thepending [facility]. She reports she doesn't feel like the medication is working anymore. I have depression, anger and irritability. She states she and daughter have been arguing more since she has been more depressed. She states the winter weather tends to cause more depression. She did stop taking the birthcontrol pills about 2 moths ago. She denies any changes with sleep; averages 8 hours per night. She wakes up feeling rested but thengets tired about one hour or two later. She has gained about 15 lbs over the past years. She is not doing any exercise currently and quit her membership at [employer]. Given resources for ways to exercise at home. Educated on exercise for mood regulation and how exercising 2 hours per week (4 thirty minute sessions) can improve mood and lower anxiety levels. She does get passive thoughts about not wanting to be here anymore after she has a fight with her daughter; happened twice over past month. NO active thought, no plan or intent of suicide. Her daughter is in counseling and daughter is not open to doing any family counseling,. Fernanda is not doing therapy; suggested looking at [facility] for a therapist. She is currently taking Abilify 2mg, Effexor 75mg bid and Lamictal 150mg one daily. She is willing to advance the dose of Lamictal to target the depressive symptoms. Risks and benefits of the medication, including any black box warnings, were discussed with the patient. Fernanda verbalized understanding to all instructions and is in agreement with the treatment plan; confirmed that she would get to ER if needed for increase symptoms or safety concerns. Interval Progress: Slightly worse PATIENT DATA: Generalized Anxiety Disorder Scale (LIZY-7) LIZY - 7 SCORES 11/21/2021 09/17/2022 04/29/2023 LIZY-7 Score 0 2 9 (0-4) minimal anxiety, (5-9) mild anxiety, (10-14) moderate anxiety, (15-21) severe anxiety Patient Health Questionnaire (PHQ-9) PHQ-9 11/21/2021 09/17/2022 04/29/2023 Score 5 3 12 (0-4) minimal depression, (5-9) mild depression, (10-14) moderate depression, (15-19) moderately severe depression, (20-27) severe depression PROMIS Global Health PROMIS Global Health - (T-Scores - the mean of general population = 50. Five points is a clinicallymeaningful difference.) 10/31/2020 09/17/2022 04/29/2023 Physical T-Score 39.8 50.8 44.9 Mental T-Score 43.5 45.8 41.1 PAST MEDICAL HISTORY Diagnosis Date Delayed emergence from general anesthesia Fibromyalgia 08/20/2016 GERD (gastroesophageal reflux disease) 03/12/2009 Hypoglycemia, unspecified Mental disorder anxiety and depression Migraine without aura 2001 Morbid obesity (HCC) Normal cardiac stress test 01/23/12 PONV (postoperative nausea and vomiting) Sleep apnea Snoring Unspecified prophylactic or treatment measure PAST SURGICAL HISTORY Procedure Laterality Date COLONOSCOPY W/BIOPSY SINGLE/MULTIPLE 12/14/2018 EGD 01/31/2020 ESOPHAGOGASTRODUODENOSCOPY TRANSORAL DIAGNOSTIC 04/11/2005 EGD ESOPHAGOGASTRODUODENOSCOPY TRANSORAL DIAGNOSTIC 03/06/2017 EGD GASTRIC BYPASS, TATI-EN-Y 11/08/2020 w/ Lap hiatal hernia repair LAP REPAIR, PARAESOPHAGEAL HIATAL HERNIA 11/08/2020 LAPAROSCOPY SURG CHOLECYSTECTOMY 03/21/2016 REDUCTION OF LARGE BREAST 2014 TONSILLECTOMY & ADENOIDECTOMY AGE 11/> 2002 DR. EASTMAN Current Outpatient Medications Medication Sig Dispense Refill Phentermine HCl 37.5 mg tablet Take 1 tablet by mouth once daily for 90 days. 30 tablet 2 topiramate (TOPAMAX) 25 mg tablet Take 1 tablet by mouth two times a day. 60 tablet 5 fluticasone (FLONASE) 50 mcg/actuation nasal spray Use 2 Sprays in each nostril once daily. Rinse mouth after use. 18.2 mL 0 cyclobenzaprine (FLEXERIL) 10 mg tablet Take 1 tablet by mouth three times a day as needed for muscle spasm. 30 tablet 1 acetaminophen 325 mg-caffeine 40 mg-butalbital 50 mg (ESGIC) per capsule Take 1 capsule by mouth every 4 hours as needed. 20 capsule 0 norgestimate 0.25 mg-ethinyl estradiol 35 mcg (TAMARA) 0.25-35 mg-mcg per tablet Take 1 tablet by mouth once daily. Take active pills only. No inactive week. (Patient not taking: Reported on 04/13/2023) 112 tablet 3 ARIPiprazole (ABILIFY) 2 mg tablet Take 1 tablet by mouth once daily. no further refills until seenfor an appointment 90 tablet 0 lamoTRIgine (LAMICTAL) 150 mg tablet Take 1 tablet by mouth once daily. 90 tablet 0 iron polysaccharide complex (FERREX-150) 150 mg iron capsule Take 1 capsule by mouth twice daily. 60 capsule 5 venlafaxine (EFFEXOR) 75 mg tablet Take 1 tablet by mouth twice daily. 180 tablet 3 Multivitamin capsule Take 1 capsule by mouth once daily. BIOTIN, BULK, MISC cholecalciferol, vitamin D3, (VITAMIN D3 ORAL) Take by mouth. ascorbic acid (VITAMIN C ORAL) Take by mouth. No current facility-administered medications for this visit. ROS: GENERAL: Negative for malaise, significant weight loss and fever. HEENT: No changes in hearing or vision, no nose bleeds or other nasal problems. RESPIRATORY: Negative for cough, wheezing and shortness of breath. CARDIOVASCULAR: Negative for chest pain, leg swelling and palpitations. GI: Negative for abdominal discomfort, blood in stools or black stools. : Negative for dysuria, frequency and incontinence. MUSCULOSKELETAL: Negative for joint pain or swelling, back pain, and muscle pain. SKIN: Negative for lesions, rash, and itching. HEMATOLOGY/LYMPHOLOGY Negative for prolonged bleeding, bruising easily, and swollen nodes. ENDOCRINE: Negative for cold or heat intolerance, polyuria, polydipsia and goiter. NEURO: Negative for headaches, syncope, seizures and paralysis. PFSH: see hpi VITAL SIGNS: There were no vitals filed for this visit. MENTAL STATUS EXAM: CONSTITUTIONAL: Well groomed ORIENTATION: Person, Place, Time and Situation MEMORY: Recent intact, Remote intact, Immediate intact CONCENTRATION: Normal MOOD: depressed, irritable AFFECT: restricted,but did smile towards end of appointment SPEECH : Clear & distinct LANGUAGE : Normal ASSOCIATIONS: Intact THOUGHT PROCESS : Logical, Coherent, and Rational PROGRESSION : There was no evidence of disturbance in thought perception or progression. FUND OF KNOWLEDGE : Appropriate and Adequate SUICIDE: None HOMICIDE: None DATA REVIEWED: Electronic medical record DIAGNOSIS: PRIMARY: Mood Disorder Major Depressive Disorder, Recurrent, moderate Secondary : Anxiety Disorder Anxiety Disorder NOS GAF: 55 -60-51 Moderate symptoms or moderate difficulty in social, occupational or school functioning. TREATMENT PLAN: 1. has lost 120# since bariatric surgery last year 2. aims test normal on 09/18/22, no abnormal movements; protocal for atypical antipsychotic 3. continue with effexor 75mg bid, abilify 2mg daily and increase lamictal 200mg at hs; stop if rash develops,to target depressive symptoms 4. note she did stop birthcontrol pills about 2 mos ago; possibly causing mood changes; monitor this 5. given resources for ways to exercise at home; no physical activity currently 6. given resource for individual therapy MEDICATION CHANGES: see treatment plan Follow Up: 06/15 at 930am I spent a total of 25 minutes on the date of the service which included preparing to see the patient, [id number] patient care, completing clinical documentation, obtaining and/or reviewing separately obtained history, performing a medically appropriate examination, counseling and educating the pat ient/family/caregiver, ordering medications, tests, or procedures, and care coordination (not separately reported). ADD ON PSYCHOTHERAPY CODE : No SIGNATURE: Davon Downs APRN.CNP PATIENT NAME: Fernanda Hernandez DATE: April 29, 2023 TIME: 11:08 AM * Davon Downs APRN.CNP - 04/29/2023 10:48 AM EST checked in at 10:47 for 1030am appointment. We will reschedule her. documented in this encounter[facility]12-04-2023 Miscellaneous Notes* Telephone Encounter - Ellie Kwong LPN - 04/27/2023 10:50 AM EST 04/27/2023 - called patient regarding a MyChart message. The patient states, she is okay, no suicidal thoughts or plans. She said, her medication needs adjusted. Scheduled patient for a virtual visit on Saturday, April 29, 2023 at 2:00 PM. Ellie Kwong LPN documented in this encounterMer[facility]11-20-2023 History of Present illness Narrative* Clive Zuniga DO - 04/13/2023 2:28 PM EST Images from the original note were not included. BMI Obesity Medicine Follow-Up Note April 13, 2023 Patient Summary: is 43 year old female who presents for follow-up evaluation of her obesity and related complications to the [facility] [place]. Date of Surgery: 11/08/2020 Surgeon: Dr. Florence Surgical Procedure: LAPAROSCOPIC GASTRIC RESTRICTIVE SURG W/ BYPASS & TATI-EN-Y 150CM OR LESS Pre-surgical weight: (337 lb), reached a preston weight of 204 lbs. Last visit weight: 238 lbs Assessement/plan from last visit (11/21/22): -Plan is to begin topiramate 25 mg twice a day to help control the cravings and snacking in the evenings. She is aware of the side effects to include metallic taste especially if she continues to drink pop and soda. Additional symptoms would include tingling of the fingers and blurred vision. Thereare no contraindications to beginning topiramate to include history of kidney stones and glaucoma. -Suggest that she increase the calcium citrate to 1200 to 1500 mg/day. She is currently on a suboptimal dose which is reflected by the elevated PTH level with a normal vitamin D and calcium level. -Refer to the [facility] dietitian for nutritional education. -Consider adding phentermine to the topiramate on a future in person visit. -Discussed the mindful eating tips that she should implement daily. HPI:Since last visit she stopped the topiramate last month as she did not stop the cravings. Still has cravings and snacks during the day. Denies any dysphagia, heartburn, abdominal pain, dysphagia, dental pain. Anti-obesity medication: none Dietary changes: Includes protein with all meals, not skipping meals, and struggling with snacking during the day. Exercise: has not been at the gym for the last 2 months Stress: none Sleep: no insomnia Weight graph: PAST MEDICAL HISTORY Diagnosis Date Delayed emergence from general anesthesia Fibromyalgia 08/20/2016 GERD (gastroesophageal reflux disease) 03/12/2009 Hypoglycemia, unspecified Mental disorder anxiety and depression Migraine without aura 2001 Morbid obesity (HCC) Normal cardiac stress test 01/23/12 PONV (postoperative nausea and vomiting) Sleep apnea Snoring Unspecified prophylactic or treatment measure Current Outpatient Medications Medication Sig Dispense Refill fluticasone (FLONASE) 50 mcg/actuation nasal spray Use 2 Sprays in each nostril once daily. Rinse mouth after use. 18.2 mL 0 cetirizine (ZYRTEC) 10 mg tablet Take 1 tablet by mouth once daily. 30 tablet 0 cyclobenzaprine (FLEXERIL) 10 mg tablet Take 1 tablet by mouth three times a day as needed for muscle spasm. 30 tablet 1 acetaminophen 325 mg-caffeine 40 mg-butalbital 50 mg (ESGIC) per capsule Take 1 capsule by mouth every 4 hours as needed. 20 capsule 0 ARIPiprazole (ABILIFY) 2 mg tablet Take 1 tablet by mouth once daily. no further refills until seenfor an appointment 90 tablet 0 lamoTRIgine (LAMICTAL) 150 mg tablet Take 1 tablet by mouth once daily. 90 tablet 0 iron polysaccharide complex (FERREX-150) 150 mg iron capsule Take 1 capsule by mouth twice daily. 60 capsule 5 venlafaxine (EFFEXOR) 75 mg tablet Take 1 tablet by mouth twice daily. 180 tablet 3 Multivitamin capsule Take 1 capsule by mouth once daily. BIOTIN, BULK, MISC cholecalciferol, vitamin D3, (VITAMIN D3 ORAL) Take by mouth. ascorbic acid (VITAMIN C ORAL) Take by mouth. norgestimate 0.25 mg-ethinyl estradiol 35 mcg (TAMARA) 0.25-35 mg-mcg per tablet Take 1 tablet by mouth once daily. Take active pills only. No inactive week. (Patient not taking: Reported on 04/13/2023) 112 tablet 3 topiramate (TOPAMAX) 25 mg tablet Take 1 tablet by mouth twice daily. (Patient not taking: Reportedon 04/13/2023) 60 tablet 5 No current facility-administered medications for this visit. Physical exam:BP 129/74 Pulse 78 Ht 160.4 cm (5' 3.13) Wt 106 kg (233 lb 11.2 oz) LMP (LMPUnknown) BMI 41.23 kg/m General Appearance: Well appearing, alert, in no acute distress, well-hydrated, well nourished. Respiratory: Lungs clear to auscultation. No wheezing, rhonchi, rales. Heart: RRR without murmur, gallop, or rubs. No ectopy Abdomen: Normal abdominal exam, Abdomen soft, non-tender. Bowel sounds normal. No masses, organomegaly Skin: exposed skin is warm, dry, intact Assessment/Plan: Fernanda Hernandez is a 43 year old female with Class III obesity who presents today for supervised weight loss follow-up. Total weight loss of 5 pounds since the last visit during the time she was on topiramate. She stopped the topiramate because it did not control the cravings and snacking during theday. Patient has been successful with the personalized nutrition and struggling with physical activity plan we discussed last visit. The patient's goals to reach weight of less than 200 pounds. She previously reached a [place] weight of 204 pounds. Plan: -Suboptimal response to Topiramate and tolerating the medication. I am going to have her restart the topiramate and begin phentermine 37.5 mg starting with a half a tablet for the next 2 weeks. Increase to the full tablet if necessary. Discussed side effects of phentermine to include dry mouth, constipation, and insomnia. -Consider starting metformin at a later date as this option can help attenuate any weight gain thatmay occur from both Lamictal and Abilify. -Follow-up visit for management of above interventions in 12 weeks. I spent a total of 35 minutes on the date of the service which included preparing to see the patient, [id number] patient care, completing clinical documentation, obtaining and/or reviewing separately obtained history, and performing a medically appropriate examination. Clive Zuniga DO documented in this encounterMer[facility]10-[facility]-2023 Miscellaneous Notes* Addendum Note - Shashi Chahal APRN.CNP - 03/24/2023 9:05 AM EDTAddended by: SHASHI CHAHAL on: 03/24/2023 09:05 AM Modules accepted: Orders documented in this encounterMer[facility]10-31-2023 History of Present illness Narrative* Shashi Chahal APRN.CNP - 03/24/2023 7:53 AM EDT Subjective HPI Nontoxic-appearing female presents urgent care chief complaint bilateral ear itching sore throat eye pruritus. States she does have some rhinorrhea as well. Has used Claritin and this is helped some.No known sick contacts. 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 Denies any pain. No visual changes eyepain flashes light or floaters. No foreign body sensation or eye trauma. Denies any fever body aches chills productive cough chest pain shortness of breath pleuritic pain hemoptysis nausea vomiting abdominal pain change in bowel or bladder habits. Past medical history prescription medication use and allergies reviewed. Denies chance of is not breast-feeding. .Patient presents with: Ear Pain: Bilateral ear pain and ST x 3 days PAST MEDICAL HISTORY Diagnosis Date Delayed emergence from general anesthesia Fibromyalgia 08/20/2016 GERD (gastroesophageal reflux disease) 03/12/2009 Hypoglycemia, unspecified Mental disorder anxiety and depression Migraine without aura 2001 Morbid obesity (HCC) Normal cardiac stress test 01/23/12 PONV (postoperative nausea and vomiting) Sleep apnea Snoring Unspecified prophylactic or treatment measure PAST SURGICAL HISTORY Procedure Laterality Date COLONOSCOPY W/BIOPSY SINGLE/MULTIPLE 12/14/2018 EGD 01/31/2020 ESOPHAGOGASTRODUODENOSCOPY TRANSORAL DIAGNOSTIC 04/11/2005 EGD ESOPHAGOGASTRODUODENOSCOPY TRANSORAL DIAGNOSTIC 03/06/2017 EGD GASTRIC BYPASS, TATI-EN-Y 11/08/2020 w/ Lap hiatal hernia repair LAP REPAIR, PARAESOPHAGEAL HIATAL HERNIA 11/08/2020 LAPAROSCOPY SURG CHOLECYSTECTOMY 03/21/2016 REDUCTION OF LARGE BREAST 2014 TONSILLECTOMY & ADENOIDECTOMY AGE 11/> 2002 DR. EASTMAN ALLERGIES Aciphex [Rabeprazole Sodium], Entex Pse [Pseudoephedrine-Guaifenesin], Nexium [Esomeprazole Magnesium], Prevacid [Lansoprazole], Prilosec [Omeprazole], Sulfa (Sulfonamide Antibiotics), and Wellbutrin [Bupropion Hcl] MEDICATIONS cyclobenzaprine (FLEXERIL) 10 mg tablet Take 1 tablet by mouth three times a day as needed for muscle spasm. acetaminophen 325 mg-caffeine 40 mg-butalbital 50 mg (ESGIC) per capsule Take 1 capsule by mouth every 4 hours as needed. norgestimate 0.25 mg-ethinyl estradiol 35 mcg (TAMARA) 0.25-35 mg-mcg per tablet Take 1 tablet by mouth once daily. Take active pills only. No inactive week. ARIPiprazole (ABILIFY) 2 mg tablet Take 1 tablet by mouth once daily. no further refills until seenfor an appointment lamoTRIgine (LAMICTAL) 150 mg tablet Take 1 tablet by mouth once daily. topiramate (TOPAMAX) 25 mg tablet Take 1 tablet by mouth twice daily. iron polysaccharide complex (FERREX-150) 150 mg iron capsule Take 1 capsule by mouth twice daily. venlafaxine (EFFEXOR) 75 mg tablet Take 1 tablet by mouth twice daily. Multivitamin capsule Take 1 capsule by mouth once daily. BIOTIN, BULK, MISC cholecalciferol, vitamin D3, (VITAMIN D3 ORAL) Take by mouth. ascorbic acid (VITAMIN C ORAL) Take by mouth. FAMILY HISTORY Problem Relation Age of Onset Arthritis Mother Diabetes Mother Headache Father Lipids Father Headache Sister Diabetes Maternal Grandfather Stroke Maternal Grandfather Alcohol/Drug Paternal Grandmother ETOH Alcohol/Drug Paternal Grandfather ETOH Cancer Paternal Grandfather LUNG Alcohol/Drug Paternal Aunt ETOH Alcohol/Drug Paternal Uncle ETOH Cancer Paternal Uncle LUNG Social History Tobacco Use Smoking status: Former Packs/day: 0.50 Years: 12.00 Additional pack years: 0.00 Total pack years: 6.00 Types: Cigarettes Quit date: 07/22/2013 Years since quittin.6 Smokeless tobacco: Never Vaping Use Vaping Use: Never used Substance Use Topics Alcohol use: Yes Comment: Rarely Drug use: No BP 110/80 Pulse 63 Temp 36.2 C (97.1 F) (Tympanic) Resp 18 Wt 107.1 kg (236 lb 3.2 oz) LMP (LMP Unknown) SpO2 97% BMI 43.20 kg/m Review of Systems Constitutional: Negative for chills, fever and malaise/fatigue. HENT: Positive for congestion and sore throat. Negative for ear discharge, ear pain, hearing loss, sinus pain and tinnitus. Eyes: Negative for blurred vision, double vision, photophobia, pain, discharge and redness. Respiratory: Negative for cough, hemoptysis, sputum production, shortness of breath, wheezing and stridor. Cardiovascular: Negative for chest pain. Gastrointestinal: Negative for abdominal pain, diarrhea, nausea and vomiting. Musculoskeletal: Negative for myalgias. Skin: Negative for itching and rash. Neurological: Negative for dizziness and headaches. Objective Physical Exam Constitutional: General: She is not in acute distress. Appearance: She is not diaphoretic. HENT: Head: Normocephalic. Jaw: No trismus, tenderness, swelling or pain on movement. Right Ear: Tympanic membrane, ear canal and external ear normal. Left Ear: Tympanic membrane, ear canal and external ear normal. Mouth/Throat: Mouth: Mucous membranes are moist. Pharynx: Oropharynx is clear. Uvula midline. No pharyngeal swelling, oropharyngeal exudate, posterior oropharyngeal erythema or uvula swelling. Eyes: General: Lids are normal. Vision grossly intact. Right eye: No foreign body or discharge. Left eye: No foreign body or discharge. Conjunctiva/sclera: Conjunctivae normal. Right eye: Right conjunctiva is not injected. No exudate. Left eye: Left conjunctiva is not injected. No exudate. Pupils: Pupils are equal, round, and reactive to light. Cardiovascular: Rate and Rhythm: Normal rate and regular rhythm. Heart sounds: Normal heart sounds. Pulmonary: Effort: Pulmonary effort is normal. No tachypnea, accessory muscle usage or respiratory distress. Breath sounds: Normal breath sounds. No stridor. No wheezing, rhonchi or rales. Abdominal: General: There is no distension. Palpations: Abdomen is soft. Tenderness: There is no abdominal tenderness. There is no guarding or rebound. Musculoskeletal: Cervical back: Normal range of motion and neck supple. No edema, erythema, rigidity or tenderness. No pain with movement. Normal range of motion. Lymphadenopathy: Cervical: No cervical adenopathy. Skin: General: Skin is warm and dry. Neurological: Mental Status: She is alert and oriented to person, place, and time. ASSESSMENT/PLAN: 1. Seasonal allergies - ICD9: 477.9, ICD10: J30.2 Patient diagnosed with seasonal allergies placed on antihistamines Flonase and prednisone burst. Patient was educated on supportive therapies. Patient will follow up with primary care provider as needed. Patient was instructed to immediately proceed to emergency room for any new, worsening, or symptoms lasting longer than anticipated. The patient's clinical presentation is otherwise unremarkable at this time. Based on exam and clinical finding, the patient is stable for discharge. Plan of care was discussed with patient. Patient verbalizes understanding and agrees to plan of care. This note was generated using [employer] software. It may contain errors in wording, punctuation, or spelling. Shashi Chahal APRN.AGENCY OWNER documented in this encounterMer[facility]10-20-2023 Instructions* Patient Instructions* Mandie Garcia PA-C - 03/13/2023 2:24 PM EDT See instructions for cervical stretching documented in this encounterMer[facility]10-20-2023 History of Present illness Narrative* Mandie Garcia PA-C - 03/13/2023 2:09 PM EDT 42 year old female with c/o returns with improvement in low back but persistent sx in left neck, upper shoulder, and upper back. No radiating pain. HISTORIES FAMILY HISTORY Problem Relation Age of Onset Arthritis Mother Diabetes Mother Headache Father Lipids Father Headache Sister Diabetes Maternal Grandfather Stroke Maternal Grandfather Alcohol/Drug Paternal Grandmother ETOH Alcohol/Drug Paternal Grandfather ETOH Cancer Paternal Grandfather LUNG Alcohol/Drug Paternal Aunt ETOH Alcohol/Drug Paternal Uncle ETOH Cancer Paternal Uncle LUNG PAST MEDICAL HISTORY Diagnosis Date Delayed emergence from general anesthesia Fibromyalgia 08/20/2016 GERD (gastroesophageal reflux disease) 03/12/2009 Hypoglycemia, unspecified Mental disorder anxiety and depression Migraine without aura 2001 Morbid obesity (HCC) Normal cardiac stress test 01/23/12 PONV (postoperative nausea and vomiting) Sleep apnea Snoring Unspecified prophylactic or treatment measure PAST SURGICAL HISTORY Procedure Laterality Date COLONOSCOPY W/BIOPSY SINGLE/MULTIPLE 12/14/2018 EGD 01/31/2020 ESOPHAGOGASTRODUODENOSCOPY TRANSORAL DIAGNOSTIC 04/11/2005 EGD ESOPHAGOGASTRODUODENOSCOPY TRANSORAL DIAGNOSTIC 03/06/2017 EGD GASTRIC BYPASS, TATI-EN-Y 11/08/2020 w/ Lap hiatal hernia repair LAP REPAIR, PARAESOPHAGEAL HIATAL HERNIA 11/08/2020 LAPAROSCOPY SURG CHOLECYSTECTOMY 03/21/2016 REDUCTION OF LARGE BREAST 2014 TONSILLECTOMY & ADENOIDECTOMY AGE 11/> 2002 DR. EASTMAN Social History Tobacco Use Smoking status: Former Packs/day: 0.50 Years: 12.00 Additional pack years: 0.00 Total pack years: 6.00 Types: Cigarettes Quit date: 07/22/2013 Years since quittin.6 Smokeless tobacco: Never Vaping Use Vaping Use: Never used Substance Use Topics Alcohol use: Yes Comment: Rarely Drug use: No ACTIVE PROBLEM LIST Gerd (Gastroesophageal Reflux Disease) Lumbago Morbid Obesity (Hcc) Fibromyalgia Paroxysmal Hemicrania, Chronic Cervical Spinal Stenosis Foraminal Stenosis of Cervical Region Irritable Bowel Syndrome With Diarrhea Cervicothoracic Somatic Dysfunction Anxiety Disorder Polypharmacy [place] (Obstructive Sleep Apnea) Acute Pain of Left Shoulder Recurrent Major Depressive Disorder, in Full Remission (Hcc) Current Outpatient Medications Medication Sig Dispense Refill cyclobenzaprine (FLEXERIL) 10 mg tablet Take 1 tablet by mouth three times a day as needed for muscle spasm. 30 tablet 1 acetaminophen 325 mg-caffeine 40 mg-butalbital 50 mg (ESGIC) per capsule Take 1 capsule by mouth every 4 hours as needed. 20 capsule 0 norgestimate 0.25 mg-ethinyl estradiol 35 mcg (TAMARA) 0.25-35 mg-mcg per tablet Take 1 tablet by mouth once daily. Take active pills only. No inactive week. 112 tablet 3 ARIPiprazole (ABILIFY) 2 mg tablet Take 1 tablet by mouth once daily. no further refills until seenfor an appointment 90 tablet 0 lamoTRIgine (LAMICTAL) 150 mg tablet Take 1 tablet by mouth once daily. 90 tablet 0 topiramate (TOPAMAX) 25 mg tablet Take 1 tablet by mouth twice daily. 60 tablet 5 iron polysaccharide complex (FERREX-150) 150 mg iron capsule Take 1 capsule by mouth twice daily. 60 capsule 5 venlafaxine (EFFEXOR) 75 mg tablet Take 1 tablet by mouth twice daily. 180 tablet 3 Multivitamin capsule Take 1 capsule by mouth once daily. BIOTIN, BULK, MISC cholecalciferol, vitamin D3, (VITAMIN D3 ORAL) Take by mouth. ascorbic acid (VITAMIN C ORAL) Take by mouth. No current facility-administered medications for this visit. Mammogram Screening due on 06/07/2021 EXAM: BP 112/78 Pulse 83 Resp 18 Wt 108 kg (238 lb) LMP (LMP Unknown) SpO2 98% BMI 43.53 kg/m Pleasant obese adult woman in no acute distress. Alert and oriented all spheres. Normal affect and cognition. Speech normal. No deficits to learning or comprehension. Mild pain distress. Skin warm, dry, pink to lips and nailbeds. Normal turgor. Respirations regular and unlabored. Neck is supple, patient does have some minor trigger points. On the left trapezius and down into the paraspinals muscles. Neck is supple, has good range of motion in lateral rotation, side bending, flexion and extension. There is a rather large trigger point over the mid suprascapular area trapezius. Extrem: no clubbing or cyanosis. Edema: none. Extremities are warm and pink with prompt capillary refill. OMT: Myofascial release to tender trigger point over the left trapezius, she did have some restrictions also in the mid and upper thoracic ribs. HVLA to the section was successful and restored range of motion. Patient states she still has pain but always does until the following day, we will see how it is tomorrow. ASSESSMENT/PLAN: 1. Somatic dysfunction of spine, cervical - ICD9: 739.1, ICD10: M99.01 (primary diagnosis) 2. Somatic dysfunction of spine, thoracic - ICD9: 739.2, ICD10: M99.02 Ice/ moist heat, lineaments, OTC analgesics as needed,. Stretching and posture reviewed. Patient was given handout on cervical and upper back stretching, reviewed. Follow-up as needed Mandie Garcia PA-C documented in this encounterMer[facility]09-28-[facility]23 History of Present illness Narrative* Monse Catherine APRN.AGENCY OWNER - 02/19/2023 2:46 PM EDT Subjective HPI Fernanda Hernandez is a 42 year old female who presents with 10 days of URI symptoms. She took a COVID test 4 days ago which was positive. She has been taking tylenol for symptoms. Fever (>100.4F): No Chills: No Cough: YES Shortness of breath: YES Difficulty breathing: No Fatigue: No Muscle aches:YES Headache: YES Sore throat: No Nasal congestion: YES Rhinorrhea: No Review of Systems Constitutional: Negative for chills, fever and malaise/fatigue. HENT: Positive for congestion and ear pain. Negative for sore throat. Respiratory: Negative for cough, sputum production and shortness of breath. Cardiovascular: Negative. Musculoskeletal: Positive for myalgias. Neurological: Positive for dizziness and headaches. BP 140/90 Pulse 76 Temp 36.8 C (98.2 F) Resp 20 Wt 104.7 kg (230 lb 12.8 oz) LMP (LMP Unknown) SpO2 99% BMI 42.21 kg/m PAST MEDICAL HISTORY Diagnosis Date Delayed emergence from general anesthesia Fibromyalgia 08/20/2016 GERD (gastroesophageal reflux disease) 03/12/2009 Hypoglycemia, unspecified Mental disorder anxiety and depression Migraine without aura 2001 Morbid obesity (HCC) Normal cardiac stress test 01/23/12 PONV (postoperative nausea and vomiting) Sleep apnea Snoring Unspecified prophylactic or treatment measure PAST SURGICAL HISTORY Procedure Laterality Date COLONOSCOPY W/BIOPSY SINGLE/MULTIPLE 12/14/2018 EGD 01/31/2020 ESOPHAGOGASTRODUODENOSCOPY TRANSORAL DIAGNOSTIC 04/11/2005 EGD ESOPHAGOGASTRODUODENOSCOPY TRANSORAL DIAGNOSTIC 03/06/2017 EGD GASTRIC BYPASS, TATI-EN-Y 11/08/2020 w/ Lap hiatal hernia repair LAP REPAIR, PARAESOPHAGEAL HIATAL HERNIA 11/08/2020 LAPAROSCOPY SURG CHOLECYSTECTOMY 03/21/2016 REDUCTION OF LARGE BREAST 2014 TONSILLECTOMY & ADENOIDECTOMY AGE 11/> 2002 DR. EASTMAN ALLERGIES Aciphex [Rabeprazole Sodium], Entex Pse [Pseudoephedrine-Guaifenesin], Nexium [Esomeprazole Magnesium], Prevacid [Lansoprazole], Prilosec [Omeprazole], Sulfa (Sulfonamide Antibiotics), and Wellbutrin [Bupropion Hcl] MEDICATIONS norgestimate 0.25 mg-ethinyl estradiol 35 mcg (TAMARA) 0.25-35 mg-mcg per tablet Take 1 tablet by mouth once daily. Take active pills only. No inactive week. ARIPiprazole (ABILIFY) 2 mg tablet Take 1 tablet by mouth once daily. no further refills until seenfor an appointment lamoTRIgine (LAMICTAL) 150 mg tablet Take 1 tablet by mouth once daily. topiramate (TOPAMAX) 25 mg tablet Take 1 tablet by mouth twice daily. iron polysaccharide complex (FERREX-150) 150 mg iron capsule Take 1 capsule by mouth twice daily. venlafaxine (EFFEXOR) 75 mg tablet Take 1 tablet by mouth twice daily. acetaminophen 325 mg-caffeine 40 mg-butalbital 50 mg (ESGIC) per capsule Take 1 capsule by mouth every 4 hours as needed. cyclobenzaprine (FLEXERIL) 10 mg tablet Take 1 tablet by mouth three times daily as needed for muscle spasm. Multivitamin capsule Take 1 capsule by mouth once daily. BIOTIN, BULK, MISC cholecalciferol, vitamin D3, (VITAMIN D3 ORAL) Take by mouth. ascorbic acid (VITAMIN C ORAL) Take by mouth. amoxicillin-clavulanic acid (AUGMENTIN) 875-125 mg per tablet Take 1 tablet by mouth twice daily for 10 days. FAMILY HISTORY Problem Relation Age of Onset Arthritis Mother Diabetes Mother Headache Father Lipids Father Headache Sister Diabetes Maternal Grandfather Stroke Maternal Grandfather Alcohol/Drug Paternal Grandmother ETOH Alcohol/Drug Paternal Grandfather ETOH Cancer Paternal Grandfather LUNG Alcohol/Drug Paternal Aunt ETOH Alcohol/Drug Paternal Uncle ETOH Cancer Paternal Uncle LUNG Social History Tobacco Use Smoking status: Former Packs/day: 0.50 Years: 12.00 Additional pack years: 0.00 Total pack years: 6.00 Types: Cigarettes Quit date: 07/22/2013 Years since quittin.5 Smokeless tobacco: Never Vaping Use Vaping Use: Never used Substance Use Topics Alcohol use: Yes Comment: Rarely Drug use: No Objective Physical Exam Vitals and nursing note reviewed. Constitutional: General: She is not in acute distress. Appearance: Normal appearance. She is not ill-appearing. HENT: Right Ear: Tympanic membrane, ear canal and external ear normal. Left Ear: Ear canal and external ear normal. A middle ear effusion is present. Tympanic membrane isinjected. Nose: Mucosal edema and congestion present. Mouth/Throat: Mouth: Mucous membranes are moist. Pharynx: Oropharynx is clear. Uvula midline. No oropharyngeal exudate or posterior oropharyngeal erythema. Cardiovascular: Rate and Rhythm: Normal rate and regular rhythm. Heart sounds: Normal heart sounds. Pulmonary: Effort: Pulmonary effort is normal. No respiratory distress. Breath sounds: Normal breath sounds. No wheezing or rales. Musculoskeletal: Cervical back: Neck supple. Lymphadenopathy: Cervical: No cervical adenopathy. Skin: General: Skin is warm and dry. Findings: No erythema or rash. Neurological: Mental Status: She is alert. ASSESSMENT/PLAN: 1. Bacterial sinusitis - ICD9: 473.9, 041.9, ICD10: J32.9, B96.89 (primary diagnosis) - Will begin treatment with as per antibiotic as written, see orders - Supportive care with plenty of fluids, rest, and analgesia prn. - AMOXICILLIN 875 MG-POTASSIUM CLAVULANATE 125 MG TABLET 2. Other acute nonsuppurative otitis media of left ear, recurrence not specified - ICD9: 381.00, ICD10: H65.192 - Will begin treatment with as per antibiotic as written, see orders - AMOXICILLIN 875 MG-POTASSIUM CLAVULANATE 125 MG TABLET 3. COVID-19 - ICD9: 079.89, ICD10: U07.1 - supportive care as indicated, outside of treatment window for anti-virals. - Follow-up with your PCP in 3-5 days if symptoms have not improved or sooner if symptoms worsen - Discussed red flags and need for immediate medical evaluation if any occur. - Discussed supportive care treatment with fluids, rest and analgesia. - Discussed expected course of illness Monse Catherine APRN.AGENCY OWNER documented in this encounterMer[facility]09-28-2023 Instructions* Patient Instructions* Monse Catherine APRN.AGENCY OWNER - 02/19/2023 2:45 PM EDT Images from the original note were not included. ASSESSMENT/PLAN: 1. Bacterial sinusitis - ICD9: 473.9, 041.9, ICD10: J32.9, B96.89 (primary diagnosis) - Will begin treatment with as per antibiotic as written, see orders - Supportive care with plenty of fluids, rest, and analgesia prn. - AMOXICILLIN 875 MG-POTASSIUM CLAVULANATE 125 MG TABLET 2. Other acute nonsuppurative otitis media of left ear, recurrence not specified - ICD9: 381.00, ICD10: H65.192 - Will begin treatment with as per antibiotic as written, see orders - AMOXICILLIN 875 MG-POTASSIUM CLAVULANATE 125 MG TABLET 3. COVID-19 - ICD9: 079.89, ICD10: U07.1 - supportive care as indicated, outside of treatment window for anti-virals. - Follow-up with your PCP in 3-5 days if symptoms have not improved or sooner if symptoms worsen - Discussed red flags and need for immediate medical evaluation if any occur. - Discussed supportive care treatment with fluids, rest and analgesia. - Discussed expected course of illness Monse Catherine APRN.AGENCY OWNER Adult Sinusitis Patient Education What is Sinusitis? Sinusitis [[id number]] is inflammation of the sinuses or swelling of the lining of the sinus cavity or nose. During an infection the sinuses become blocked with fluid causing swelling of the lining of the sinuses. Symptoms: (viral and bacterial infections) Stuffy nose Runny nose Postnasal drip Fever Toothache Headache Tiredness Cough Sore throat Face and head pressure and or pain Common causes: 98% of sinus infections are viral caused by viruses. Risk Factors of Sinusitis Include: Allergies, air pollution, indoor humidity and outdoor temperature changes, andstructural changes inthe nose may contribute to sinus pain, pressure and congestion. When to get help? Temperature greater than 100.4 F Symptoms lasting more than 10 days or worsening symptoms greater than 7-10 days. If you do not improve or worsen after a course of antibiotics, you should be re-examined. Diagnosis and Treatment: Your healthcare provider will ask a number of questions about your symptoms and how long they have occurred. If symptoms of sinusitis persist greater than 10 days, it is possible you have a bacterial sinus infection and an antibiotic is prescribed. If it is viral, antibiotics will not help. You may be instructed to take [id number] medications for symptoms. including fever reducers acetaminophen or ibuprofen, nasal saline spray, cough and cold preparations and decongestants as prescribed by the physician, nurse practitioner or physician medical record assistant. Self-Care and Prevention: Rest Fluids for hydration Good hand washing Humidifier Avoid smoking and exposure to second hand smoke Avoid sick contacts How to Manage Common Symptoms Associated with COVID for Adults Fever- Fever is a temperature over 100.4 F and can occur when the body is fighting an infection. Tohelp treat a fever: Drink plenty of fluids and stay well hydrated. Eat small amounts of easy to digest food. Rest. Your body needs rest to recover, but getting up and moving around the house frequently is a good idea. You should try to continue doing your normal daily activities (bathing, toileting, grooming, cooking), though you will probably feel tired, and need to rest often. Avoid any heavy activity or exercise, as this will increase your body temperature. Dress in light clothing and stay covered in a light sheet. Keep the room temperature cool. Take a slightly warm (not cold or cool) bath, or apply damp washcloths to the forehead and wrists. Cough- Cough is a common symptom associated with COVID and can be bothersome. To help treat a cough: Stay well hydrated. Try warm water or tea with lemon and/or honey to help soothe the cough. Use a humidifier to add moisture to the air. Try a product with menthol, like a cough drop or a rub for your chest such as Vicks, which can helpreduce cough. Try cough drops. Avoid smoking and other strong odors or perfumes. Try breathing exercises to keep your lungs open and clear. Take a big deep breath through your noseand hold for 5 seconds before slowly releasing. Repeat frequently, while you are awake. Congestion- Runny nose or nasal congestion can occur with COVID. Treatment can help relieve symptoms: Try OTC nasal saline spray, or nasal saline rinse to relieve mucus congestion. Nasal strips can help keep nasal passages open, to increase airflow. Elevating your head with an extra pillow in bed can help reduce congestion. Using a humidifier can increase moisture in the air, and make breathing easier. Sore Throat- Another common symptom with COVID, can be managed at home by: Stay well hydrated. Gargle with salt water - mix teaspoon salt with 1 cup of warm water and gargle. This helps to loosen mucus in the back of the throat and may reduce discomfort. Try ice chips, popsicles or lozenges to soothe the throat. Nausea/Vomiting/Diarrhea- These are common symptoms, and staying hydrated is most important. If you are nauseous or vomiting, start with small sips of water every 10-15 minutes and increase astolerated. You can try sucking an ice cube too. If tolerating, you can try pedialyte or Gatorade, or flat sprite or brant-palmira. Start slowly and increase as you are able to. Instead of meals, try smaller, more frequent snacks. Try eating bland foods like crackers, toast, rice, and applesauce. Avoid spicy, greasy or fried foods and dairy containing foods. Even if you aren't feeling hungry due to lack of smell or taste, it is important to try to take in some food when you are able. After drinking and eating, rest in an upright position for up to two hours as needed to help decrease nauseous feelings. Try closing your eyes, avoid moving and watching TV. Avoid strong odors that can make you feel more nauseated. When to seek emergency medical attention Look for emergency warning signs for COVID-19. If having any of these symptoms, seek emergency medical care immediately: Trouble breathing Persistent pain or pressure in the chest New confusion Inability to wake or stay awake Bluish lips or face *This list is not all possible symptoms. Please call your medical provider for any other symptoms that are severe or concerning to you. documented in this encounter[facility] History of Present illness Narrative* Deborah Whittaker APRN.CNP - 02/05/2023 9:28 AM EDT Statistical Clerk offered: Patient declinesDiamond Michael is a 42 year old who presents for an annual gynecologic exam with complaints, menopausal symptoms. Menses: no menses - continuous OCPs. Contraception: combined hormonal contraceptives HPV vaccine: No Last Pap: 03/07/2019 normal HPV: 03/07/2019 negative History of abnormal pap: Yes Last mammogram: 2020normal Sexually active: No OB History T0 L1 SAB0 IAB0 Ectopic0 Multiple0 Live Births0 Infant Babysitter History LMP: LMP Unknown, Drug Induced Amenorrhea Age at Menarche: Age at First : Age at Menopause: Infant Babysitter History Comments: Sexual Activity: Not Currently; Male Contraception: Pill PAST MEDICAL HISTORY Diagnosis Date Delayed emergence from general anesthesia Fibromyalgia 08/20/2016 GERD (gastroesophageal reflux disease) 03/12/2009 Hypoglycemia, unspecified Mental disorder anxiety and depression Migraine without aura 2001 Morbid obesity (HCC) Normal cardiac stress test 01/23/12 PONV (postoperative nausea and vomiting) Sleep apnea Snoring Unspecified prophylactic or treatment measure PAST SURGICAL HISTORY Procedure Laterality Date COLONOSCOPY W/BIOPSY SINGLE/MULTIPLE 12/14/2018 EGD 01/31/2020 ESOPHAGOGASTRODUODENOSCOPY TRANSORAL DIAGNOSTIC 04/11/2005 EGD ESOPHAGOGASTRODUODENOSCOPY TRANSORAL DIAGNOSTIC 03/06/2017 EGD GASTRIC BYPASS, TATI-EN-Y 11/08/2020 w/ Lap hiatal hernia repair LAP REPAIR, PARAESOPHAGEAL HIATAL HERNIA 11/08/2020 LAPAROSCOPY SURG CHOLECYSTECTOMY 03/21/2016 REDUCTION OF LARGE BREAST 2014 TONSILLECTOMY & ADENOIDECTOMY AGE 11/> 2002 DR. EASTMAN FAMILY HISTORY Problem Relation Age of Onset Arthritis Mother Diabetes Mother Headache Father Lipids Father Headache Sister Diabetes Maternal Grandfather Stroke Maternal Grandfather Alcohol/Drug Paternal Grandmother ETOH Alcohol/Drug Paternal Grandfather ETOH Cancer Paternal Grandfather LUNG Alcohol/Drug Paternal Aunt ETOH Alcohol/Drug Paternal Uncle ETOH Cancer Paternal Uncle LUNG SOCIAL HISTORY Social History Tobacco Use Smoking status: Former Packs/day: 0.50 Years: 12.00 Additional pack years: 0.00 Total pack years: 6.00 Types: Cigarettes Quit date: 07/22/2013 Years since quittin.5 Smokeless tobacco: Never Vaping Use Vaping Use: Never used Substance Use Topics Alcohol use: Yes Comment: Rarely Drug use: No REVIEW OF SYSTEMS Abdomen: No abdominal pain, nausea, vomiting, diarrhea, or constipation. No bloating, early satiety, indigestion, or increased flatulence. Bladder: No dysuria, gross hematuria, urinary frequency, urinary urgency, or incontinence. Breast: No breast lumps, nipple d/c, overlying skin changes, redness or skin retraction. Allergies and current medication updated:Yes EXAM: BP 118/78 Ht 5' 2 (1.58m) Wt 235 lb (106.6kg) BMI 42.97 kg/(m^2). GENERAL: pleasant, female in no apparent distress HEENT: Normocephalic, atraumatic, mucus membranes moist, and no lesions NECK: Supple, full range of motion, no adenopathy, and thyroid normal DERMATOLOGY: Normal, without lesions, non-icteric, and non-hirsute BREAST: soft, non-tender, symmetric, no dominant mass, normal nipple-areolar complex, no lymphadenopathy, and no nipple discharge CHEST: Normal inspiratory effort ABDOMEN: soft, non-tender, and no masses PELVIC: external genitalia normal, normal Bartholin's glands, urethra, [place]'s glands, no vulvar lesions, no cervical lesions, physiologic discharge present, normal appearing perineal body and perianal region BIMANUAL: uterus normal size, shape and consistency, no adnexal masses, and non-tender RECTOVAGINAL: deferred. NEURO: alert and oriented x3,exam grossly non-focal EXTREMITIES: normal ASSESSMENT/PLAN: 1) Health maintenance: Pap done with HPV. Mammogram ordered. Nutrition, exercise and routine health maintenance exams reviewed. Calcium/Vitamin D supplementation information provided. 2) Contraception: combined hormonal contraceptives. Contraceptive options reviewed and information provided. 3) STD screening: Declined STD check. 4) Follow up one year or sooner as needed 5) FSH & estrogen due to hot flashes Deborah Whittaker APRN.RACHID documented in this encounterMer[facility]08-[facility]-2023 Miscellaneous Notes* Telephone Encounter - Cher Andre RN - 12/30/2022 3:39 PM EDT I called patient and scheduled annual exam. States she does not need extension of OCP until then documented in this encounterMer[facility]07-17-2023 Miscellaneous Notes* Telephone Encounter - Bev Ortega MA - 12/08/2022 2:42 PM EDT Patient has been identified by name and date of : Yes Requested Prescriptions Pending Prescriptions Disp Refills lamoTRIgine (LAMICTAL) 150 mg tablet 90 tablet 3 Sig: Take 1 tablet by mouth once daily. JADEN: 09/18/2022 FOV: none scheduled RX INSTRUCTIONS: Patient aware RX will be sent to pharmacy. No need to notify patient. Bev Ortega MA documented in this encounterMer[facility]06-30-2023 Instructions* Patient Instructions* Clive Zuniga, - 11/21/2022 11:38 AM EDT Mindful eating 1. Mindful eaters don't eat until they are full Full is an overused and misleading term. Mindful eaters tend to eat until they are no longer hungryor feel satisfied. There is a big difference. By the time you perceive yourself to be full, it isoften too late, you've overeaten. If you've dieted for years, your hunger and fullness signals may be crossed. Don't worry! Mindful eating can help rewire your brain to know what genuine physical hunger feels like and to spot emotional eating. 2. Mindful eaters pace themselves This is not easy. We live in a world that stresses instant access and hurrying- eating is no exception. Mindful eaters tell themselves to slow down or try to check in with their pace. Intentionally shifting into a reasonable pace is often easier said than done. 3. Mindful eaters are Choosy While mindful eaters may seem like picky eaters, they are often just very discerning about the choices. Mindful eaters really taste food and if they don't like it, they don't eat it, just like picky eaters. Also, they aren't afraid to tailor food to their particular taste. At restaurants, a mindful eater may ask the waiter/waitress to make a few tweaks to their order like holding the donovan or asking for Azerbaijani cheese rather than Cheddar. 4. Mindful eaters are forgiving and flexible Yes, mindful eaters overeat on occasion! What they don't do is obsess and beat themselves up as much as dieters. Mindful eaters know that tomorrow is another day and can let it go. Often the strategy is to adjust the amount you eat at the next meal or snack. They don't give up! 5. Mindful eaters tend to gauge their hunger first before taking a bite Being in the moment and fully present is keene to mindful eating. Take a brief moment to ask yourselfbefore taking a bite, Am I really, really hungry? What I am feeling right now is... This can help prevent you from walking into emotional eating. 6. Mindful eaters break out of old habits When you know what habits keep you stuck like multitasking when you eat or nibbling while anxious, you can devote more energy and attention to these particular areas. Sometimes it is changing how youeat more than what you eat. [email or web address] documented in this encounterMer[facility]06-30-2023 History of Present illness Narrative* Clive Zuniga DO - 11/21/2022 11:19 AM EDT DISTANCE HEALTH VISIT This Team Access Model visit is a virtual encounter. It required patient- provider interaction for the medical decision making as documented below. BMI OM PostOp Clinic Note November 21, 2022 Index Surgery Date of Surgery: 11/08/2020 Surgeon: Dr. Florence Surgical Procedure: LAPAROSCOPIC GASTRIC RESTRICTIVE SURG W/ BYPASS & TATI-EN-Y 150CM OR LESS Pre-surgical weight: (337 lb), reached a preston weight of 204 lbs. Override Index Surgery Information? No Other Bariatric Surgeries None Visit: 2 years Today's Visit: There were no vitals taken for this visit. She has a self reported weight of 238 lbs. Last Visit: Wt: 107.5 kg (237 lb) BMI: 43.35 kg/(m^2) Total weight loss: 99 lbs [place] weight: 64 kg (141 lb 2.3 oz) Excess weight: 83.8 kg (184 lb 13.7 oz) % of excess body weight lost: (337 lb) (50.51% of excess weight loss) COMPLICATIONS SINCE LAST VISIT?: NONE INTERVAL HISTORY Here for postop visit, she is here today for a 2 year follow-up visit, has gained about 34 pounds since October 2021. She is concerned about the weight gain as she has not made any major changes in her diet and exercise except that she is grazing and snacking more in the evenings. She is also not exercising as intensely because of some knee issues. DIET INTAKE: Tolerates Phase V diet, eggs and toast for breakfast; left overs at lunch; balanced atdinner 5 pm. Tends to snack at 7 pm, snacks on crackers and cheese. Feels full quickly after meals,tends to get hunger earlier after meals. DAILY SUPPLEMENTS: Yes Calcium: Calcium Citrate w/ vitamin D (1200 - 1500mg) one daily Multivitamin & Minerals: bariatric [employer] + 45 mg one daily Iron Supplement: 45-60 mg (ferrous sulfate 325 mg twice a day) Vitamin B12: included in multivitamin Vitamin D3: included in multi-vitamin Other: N/A EXERCISE: not going to the gym, knee pain SLEEP: [place] Yes , CPAP No Current Outpatient Medications Medication Sig albuterol HFA (PROVENTIL HFA, VENTOLIN HFA) 90 mcg/actuation inhaler Inhale 2 Puffs as instructed every 4 hours as needed. iron polysaccharide complex (FERREX-150) 150 mg iron capsule Take 1 capsule by mouth twice daily. ARIPiprazole (ABILIFY) 2 mg tablet Take 1 tablet by mouth once daily. no further refills until seenfor an appointment lamoTRIgine (LAMICTAL) 150 mg tablet Take 1 tablet by mouth once daily. venlafaxine (EFFEXOR) 75 mg tablet Take 1 tablet by mouth twice daily. meclizine (ANTIVERT) 12.5 mg tab 1-2 tabs three times a day as needed for dizziness/ vertigo acetaminophen 325 mg-caffeine 40 mg-butalbital 50 mg (ESGIC) per capsule Take 1 capsule by mouth every 4 hours as needed. cyclobenzaprine (FLEXERIL) 10 mg tablet Take 1 tablet by mouth three times daily as needed for muscle spasm. norgestimate 0.25 mg-ethinyl estradiol 35 mcg (TAMARA) 0.25-35 mg-mcg per tablet Take 1 tablet by mouth once daily. Take active pills only. No inactive week. pantoprazole DR (PROTONIX) 20 mg tablet Take 1 tablet by mouth twice daily. Multivitamin capsule Take 1 capsule by mouth once daily. BIOTIN, BULK, MISC cholecalciferol, vitamin D3, (VITAMIN D3 ORAL) Take by mouth. ascorbic acid (VITAMIN C ORAL) Take by mouth. No current facility-administered medications for this visit. REVIEW OF SYSTEMS: Denies nausea, vomiting, dumping syndrome, reactive hypoglycemia, gustatory rhinorrhea, Denies abdominal pain, constipation, diarrhea, melena, hematochezia, Denies paresthesias, gait abnormality, fatigue, weakness, lower extremity edema, and Denies taking NSAIDs OBESITY MEDICINE COMORBIDITIES: Obstructive Sleep Apnea Sleep Apnea with use of CPAP, Bi-PAP, or similar technology PHYSICAL EXAM: LMP (LMP Unknown) Assessment 42 year old female with Class III obesity s/p LAPAROSCOPIC GASTRIC RESTRICTIVE SURG W/ BYPASS & TATI-EN-Y 150CM OR LESS, presents today with a 34 pound weight gain in the last year as a result of dysfunctional eating patterns, grazing, snacking in the evenings, and reductions in activity. Patient Active Problem List Recurrent major depressive disorder, in full remission (HCC) Acute pain of left shoulder [place] (obstructive sleep apnea) Polypharmacy Anxiety disorder Irritable bowel syndrome with diarrhea Cervicothoracic somatic dysfunction Cervical spinal stenosis Foraminal stenosis of cervical region Fibromyalgia Paroxysmal hemicrania, chronic Morbid obesity (HCC) Lumbago GERD (gastroesophageal reflux disease) Resolved Hospital Problems No resolved problems to display. Plan -Plan is to begin topiramate 25 mg twice a day to help control the cravings and snacking in the evenings. She is aware of the side effects to include metallic taste especially if she continues to drink pop and soda. Additional symptoms would include tingling of the fingers and blurred vision. Thereare no contraindications to beginning topiramate to include history of kidney stones and glaucoma. -Suggest that she increase the calcium citrate to 1200 to 1500 mg/day. She is currently on a suboptimal dose which is reflected by the elevated PTH level with a normal vitamin D and calcium level. -Refer to the [facility] dietitian for nutritional education. -Consider adding phentermine to the topiramate on a future in person visit. -Discussed the mindful eating tips that she should implement daily. DISPOSITION: Return 3 months for a EST/Standard office visit EDUCATION: Encouraged to continue with healthy lifestyle changes and incorporate cardiovascular andresistance training, Discussed weight loss expectations after bariatric and metabolic surgery, Advised PT to avoid NSAIDs, smoking tobacco given increased risk of marginal ulcers, or Discussed importance of protein intake as per the RDN note REFERRALS: BMI dietitian LABS: Today: See [facility] Orders I spent a total of 35 minutes on the date of the service which included completing clinical documentation, obtaining and/or reviewing separately obtained history, counseling and educating the patient/family/caregiver, and ordering medications, tests, or procedures. Medical Decision Making: Medical Decision Making Level: 1 - N/A I have communicated my name and active licensure. The patient's identity and physical location wereverified at the time of this visit. Either the patient or their legal sales account representative has been informed of the risks and benefits of -- and alternatives to -- treatment through a remote evaluation andconsents to proceed with the evaluation remotely. Clive Zuniga DO documented in this encounterMer[facility]06-26-2023 Instructions* Patient Instructions* Mandie Garcia PA-C - 11/17/2022 1:47 PM EDT Rest the joint over then next five days as much as possible, then start gradually increasing activity and stretching as discussed. The joint injection includes a long acting numbing agent. This will wear off over about 12 hours and pain may return. Over then next 2-3 days it should gradually get better as the cortisone effects take over. documented in this encounterMer[facility]06-26-2023 History of Present illness Narrative* Mandie Garcia PA-C - 11/17/2022 1:13 PM EDT 42 year old female with c/o left knee pain over last month without known injury. Identifies medial aspect from pattellar tendon to lateral patella. Best it's been in 2 weeks. Current 5/10, at worst 10/10 Able to walk, going up or down steps is the worst. Trouble getting up or down due to pain, really tight. Using Arnica gel topically, tumeric, vit E, Tylenol Arthritis which seems to help a little. 11/03/2022 prednisone 40mg daily x 5 days: seemed to help but missed 3rd day and on restarting no improvement. Last 3 days notes popping. Notes has gained weight from April, worries this is causing issues. 11/03/2022 left knee XR: No fractures or subluxations are noted. Tiny marginal bony spurs are visualized. The joint spaces are grossly preserved. There is no evidence of joint effusion. The mineralization of the bones is normal. There is no significant soft tissue swelling. Tight in back and neck. Usual issues, asking for manual therapy. No numbness tingling or radiating pain. HISTORIES FAMILY HISTORY Problem Relation Age of Onset Arthritis Mother Diabetes Mother Headache Father Lipids Father Headache Sister Diabetes Maternal Grandfather Stroke Maternal Grandfather Alcohol/Drug Paternal Grandmother ETOH Alcohol/Drug Paternal Grandfather ETOH Cancer Paternal Grandfather LUNG Alcohol/Drug Paternal Aunt ETOH Alcohol/Drug Paternal Uncle ETOH Cancer Paternal Uncle LUNG PAST MEDICAL HISTORY Diagnosis Date Delayed emergence from general anesthesia Fibromyalgia 08/20/2016 GERD (gastroesophageal reflux disease) 03/12/2009 Hypoglycemia, unspecified Mental disorder anxiety and depression Migraine without aura 2001 Morbid obesity (HCC) Normal cardiac stress test 01/23/12 PONV (postoperative nausea and vomiting) Sleep apnea Snoring Unspecified prophylactic or treatment measure PAST SURGICAL HISTORY Procedure Laterality Date COLONOSCOPY W/BIOPSY SINGLE/MULTIPLE 12/14/2018 EGD 01/31/2020 ESOPHAGOGASTRODUODENOSCOPY TRANSORAL DIAGNOSTIC 04/11/2005 EGD ESOPHAGOGASTRODUODENOSCOPY TRANSORAL DIAGNOSTIC 03/06/2017 EGD GASTRIC BYPASS, TATI-EN-Y 11/08/2020 w/ Lap hiatal hernia repair LAP REPAIR, PARAESOPHAGEAL HIATAL HERNIA 11/08/2020 LAPAROSCOPY SURG CHOLECYSTECTOMY 03/21/2016 REDUCTION OF LARGE BREAST 2014 TONSILLECTOMY & ADENOIDECTOMY AGE 11/> 2002 DR. EASTMAN Social History Tobacco Use Smoking status: Former Packs/day: 0.50 Years: 12.00 Pack years: 6.00 Types: Cigarettes Quit date: 07/22/2013 Years since quittin.3 Smokeless tobacco: Never Vaping Use Vaping Use: Never used Substance Use Topics Alcohol use: Yes Comment: Rarely Drug use: No ACTIVE PROBLEM LIST Gerd (Gastroesophageal Reflux Disease) Lumbago Morbid Obesity (Hcc) Fibromyalgia Paroxysmal Hemicrania, Chronic Cervical Spinal Stenosis Foraminal Stenosis of Cervical Region Irritable Bowel Syndrome With Diarrhea Cervicothoracic Somatic Dysfunction Anxiety Disorder Polypharmacy [place] (Obstructive Sleep Apnea) Acute Pain of Left Shoulder Recurrent Major Depressive Disorder, in Full Remission ([facility]) Current Outpatient Medications Medication Sig Dispense Refill albuterol HFA (PROVENTIL HFA, VENTOLIN HFA) 90 mcg/actuation inhaler Inhale 2 Puffs as instructed every 4 hours as needed. 1 Each 5 iron polysaccharide complex (FERREX-150) 150 mg iron capsule Take 1 capsule by mouth twice daily. 60 capsule 5 ARIPiprazole (ABILIFY) 2 mg tablet Take 1 tablet by mouth once daily. no further refills until seenfor an appointment 90 tablet 3 lamoTRIgine (LAMICTAL) 150 mg tablet Take 1 tablet by mouth once daily. 90 tablet 3 venlafaxine (EFFEXOR) 75 mg tablet Take 1 tablet by mouth twice daily. 180 tablet 3 meclizine (ANTIVERT) 12.5 mg tab 1-2 tabs three times a day as needed for dizziness/ vertigo 30 tablet 0 acetaminophen 325 mg-caffeine 40 mg-butalbital 50 mg (ESGIC) per capsule Take 1 capsule by mouth every 4 hours as needed. 20 capsule 0 cyclobenzaprine (FLEXERIL) 10 mg tablet Take 1 tablet by mouth three times daily as needed for muscle spasm. 30 tablet 1 norgestimate 0.25 mg-ethinyl estradiol 35 mcg (TAMARA) 0.25-35 mg-mcg per tablet Take 1 tablet by mouth once daily. Take active pills only. No inactive week. 84 tablet 5 Multivitamin capsule Take 1 capsule by mouth once daily. BIOTIN, BULK, MISC cholecalciferol, vitamin D3, (VITAMIN D3 ORAL) Take by mouth. ascorbic acid (VITAMIN C ORAL) Take by mouth. pantoprazole DR (PROTONIX) 20 mg tablet Take 1 tablet by mouth twice daily. 60 tablet 11 No current facility-administered medications for this visit. MAMMOGRAM due on 06/07/2021 EXAM: BP 120/78 Pulse 83 Resp 16 Wt 107.5 kg (237 lb) LMP (LMP Unknown) SpO2 97% BMI 43.35 kg/m Pleasant overweight adult woman in no acute distress. Alert and oriented all spheres. Normal affectand cognition. Speech normal. No deficits to learning or comprehension. Skin warm, dry, pink to lips and nailbeds. Normal turgor. Respirations regular and unlabored. Neck supple, mild restriction lateral bending on left, rotation on right at C5. TTPs in shoulders, restriction in lower and upper thoracic. Left knee with FROM, negative bounce test, no pain or laxity with varus or valgus stress, negative anterior drawer. Swelling noted pes anserinus and identifies nidus of pain in the area. Increases with internal rotation foot. Extrem: no clubbing or cyanosis. Edema: none. Extremities are warm and pink with prompt capillary refill. ASSESSMENT/PLAN: 1. Pes anserine bursitis - ICD9: 726.61, ICD10: M70.50 (primary diagnosis) - [employer] Procedure: UNIVERSAL PROTOCOL / SAFETY CHECKLIST Procedure to be Performed: right pes anserine bursal steroid injection Sign In: A Moment of CARE was completed. Personnel directly involved with the procedure wore the appropriate PPE (Personal Protective Equipment). Patient/Surrogate Stated/Verified: PATIENT VERIFIED(optional for EMERGENT procedures): Patient name, Date of , Relevant allergies, and The intended procedure Time Out Communication: Intended patient and procedure match the source documents. Sign Out: SIGN OUT (optional for EMERGENT procedures): No specimen collected. Mandie Garcia PA-C Procedure: Discussed steroid injection risks and benefits as well as options for PT or orthopedic referral. Wishes to proceed with steroid injection, site, ID, allergies verified. Injected Celestone 6mg/1ml/ mixed with Lidocaine 0.5%% 1ml and Marcaine 0.75% 1ml into pes anserinebursa with some improvement on recheck. Instructed to rest joint as much as possible next 5 days: avoid flip flops, wear shoes with good support, use elevator rather than steps, avoid grades if possible 2. Somatic dysfunction of cervical region - ICD9: 739.1, ICD10: M99.01 3. Somatic dysfunction of spine, thoracic - ICD9: 739.2, ICD10: M99.02 Ice/ moist heat, lineaments, OTC analgesics as needed. Stretching and posture reviewed. F/u prn not improving. Mandie Garcia PA-C documented in this encounter[facility] Nurse Note* Ghazal John Ma - 11/17/2022 1:06 PM EDT Is the patient having any pain? Yes LOCATION: left knee PAIN SCALE: 5 on a scale of 0-10 PAIN CHARACTER: aching and sharp DURATION: (How long have you had the pain?) 1 months FREQUENCY: (How often does the pain occur?) occurs constantly AGGRAVATING FACTORS: full weight and bending too far ALLEVIATING FACTORS: ice, medications - analgesics and NSAIDs documented in this encounterMer[facility]06-12-[facility]23 History of Present illness Narrative* Cher Garcia RT(R) - 11/03/2022 3:10 PM EDT Radiology Service Progress Note PATIENT NAME: Fernanda Hernandez DATE OF SERVICE: November 03, 2022 TIME: 3:10 PM PATIENT IDENTITY VERIFICATION COMPLETED USING TWO (2) IDENTIFIERS: Name and Date of confirmedby patient verbally. FALL SCREENING: Has the patient had 2 falls in the last year or 1 fall with injury or currently using an Ambulatory Assistive Device (Walker, Cane, Wheelchair, Crutches, etc.)? No PATIENT GENDER DATA: Female. status: : No status: NO. PATIENT RELEVANT IMPLANT DATA REVIEWED: Not Applicable RADIOLOGY DEPARTMENT: General X-ray: Exam(s) Completed: Lower Extremity X- Ray(s): Knee, AP / Lat / Tunne / Merchant Left and Wt. Bearing PERIPHERAL IV DATA: Not applicable SIGNED BY: RT Singh(R) November 03, 2022 3:10 PM documented in this encounterMercy [facility]04-27-2023 History of Present illness Narrative* Davon Downs APRN.AGENCY OWNER - 09/18/2022 4:33 PM EDT FOLLOW UP - PSYCHIATRIC PROGRESS NOTE I have communicated my name and active licensure. The patient's identity and physical location wereverified at the time of this visit. Either the patient or their legal sales account representative has been informed of the risks and benefits of -- and alternatives to -- treatment through a remote evaluation andconsents to proceed with the evaluation remotely. Reason for Visit: Outpatient follow-up and safety monitoring of previously prescribed psychiatric medication, psychotherapy or other treatment CC: medication management HPI: Last visit was about 10 months ago on 11/21/21 with the following treatment plan: 1. no changes in medications. She has been consistent with medications and denies side effects verbalized understanding that she will need to be seen every 6 mos by this prescriber if she wants refills. 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 aims test normal; no abnormal movements 3. continue with effexor 75mg bid, lamictal 150mg at hs; stop if rash develops, abilify 2mg daily Today, Fernanda returns for a medication management follow-up appointment. She reports she has gained a bit of weight back, 20lbs,but has lost total of 120 lbs since the surgery. Mood has been good,but still has some irritable issues a few times per month. She denies si/hi. She has been happy with medications and denies side effects. No abnormal movements noted today and aims test wnl. Sleep is good and typically wakes up feeling refreshed. Risks and benefits of the medication, including any black box warnings, were discussed with the patient. Fernanda verbalized understanding to all instructions and is in agreement with the treatment plan; confirmed that she would get to ER if needed for increase symptoms or safety concerns. Interval Progress: Same PATIENT DATA: Generalized Anxiety Disorder Scale (LIZY-7) LIZY - 7 SCORES 01/16/2020 11/21/2021 09/17/2022 LIZY-7 Score 8 0 2 (0-4) minimal anxiety, (5-9) mild anxiety, (10-14) moderate anxiety, (15-21) severe anxiety Patient Health Questionnaire (PHQ-9) PHQ-9 02/13/2020 11/21/2021 09/17/2022 Score 3 5 3 (0-4) minimal depression, (5-9) mild depression, (10-14) moderate depression, (15-19) moderately severe depression, (20-27) severe depression PROMIS Global Health PROMIS Global Health - (T-Scores - the mean of general population = 50. Five points is a clinicallymeaningful difference.) 04/23/2020 10/31/2020 09/17/2022 Physical T-Score 39.8 39.8 50.8 Mental T-Score 38.8 43.5 45.8 Abnormal Involuntary Movement Scale Abnormal Involuntary Movement Scale (AIMS) 11/21/2021 09/18/2022 Muscles of facial expression None, normal None, normal Lips and perioral area None, normal None, normal Jaw None, normal None, normal Tongue None, normal None, normal Upper (arms, wrists, hands, fingers) None, normal None, normal Lower (legs, knees, ankles, toes) None, normal None, normal Neck, shoulders, hips None, normal None, normal Severity of abnormal movements None, normal None, normal Incapacitation due to abnormal movements None, normal None, normal Patient's awareness of abnormal movements No awareness No awareness Current problems with teeth and/or dentures? (0=no, 1=yes) 0 0 Does patient usually wear dentures? (0=no, 1=yes) 0 0 Edentia? (0=no, 1=yes) 0 0 Do movements disappear with sleep? (0=no, 1=yes) - 0 PAST MEDICAL HISTORY Diagnosis Date Delayed emergence from general anesthesia Fibromyalgia 08/20/2016 GERD (gastroesophageal reflux disease) 03/12/2009 Hypoglycemia, unspecified Mental disorder anxiety and depression Migraine without aura 2001 Morbid obesity (HCC) Normal cardiac stress test 01/23/12 PONV (postoperative nausea and vomiting) Sleep apnea Snoring Unspecified prophylactic or treatment measure PAST SURGICAL HISTORY Procedure Laterality Date COLONOSCOPY W/BIOPSY SINGLE/MULTIPLE 12/14/2018 EGD 01/31/2020 ESOPHAGOGASTRODUODENOSCOPY TRANSORAL DIAGNOSTIC 04/11/2005 EGD ESOPHAGOGASTRODUODENOSCOPY TRANSORAL DIAGNOSTIC 03/06/2017 EGD GASTRIC BYPASS, TATI-EN-Y 11/08/2020 w/ Lap hiatal hernia repair LAP REPAIR, PARAESOPHAGEAL HIATAL HERNIA 11/08/2020 LAPAROSCOPY SURG CHOLECYSTECTOMY 03/21/2016 REDUCTION OF LARGE BREAST 2014 TONSILLECTOMY & ADENOIDECTOMY AGE 11/> 2002 DR. EASTMAN Current Outpatient Medications Medication Sig Dispense Refill ARIPiprazole (ABILIFY) 2 mg tablet TAKE 1 TABLET BY MOUTH ONCE DAILY. NO FURTHER REFILLS UNTIL SEENFOR AN APPOINTMENT 90 tablet 0 meclizine (ANTIVERT) 12.5 mg tab 1-2 tabs three times a day as needed for dizziness/ vertigo 30 tablet 0 lamoTRIgine (LAMICTAL) 150 mg tablet TAKE 1 TABLET BY MOUTH EVERY DAY 90 tablet 2 venlafaxine (EFFEXOR) 75 mg tablet TAKE 1 TABLET BY MOUTH TWICE A DAY 180 tablet 1 fluticasone (FLONASE) 50 mcg/actuation nasal spray Use 2 Sprays in each nostril once daily. Rinse mouth after use. 1 Each 0 iron polysaccharide complex (FERREX-150) 150 mg iron capsule Take 1 capsule by mouth twice daily. 60 capsule 5 acetaminophen 325 mg-caffeine 40 mg-butalbital 50 mg (ESGIC) per capsule Take 1 capsule by mouth every 4 hours as needed. 20 capsule 0 cyclobenzaprine (FLEXERIL) 10 mg tablet Take 1 tablet by mouth three times daily as needed for muscle spasm. 30 tablet 1 norgestimate 0.25 mg-ethinyl estradiol 35 mcg (TAMARA) 0.25-35 mg-mcg per tablet Take 1 tablet by mouth once daily. Take active pills only. No inactive week. [address] (PROTONIX) 20 mg tablet Take 1 tablet by mouth twice daily. 60 tablet 11 Multivitamin capsule Take 1 capsule by mouth once daily. BIOTIN, BULK, MISC albuterol HFA (PROVENTIL HFA, VENTOLIN HFA) 90 mcg/actuation inhaler Inhale 2 Puffs as instructed every 4 hours as needed. 1 Each 5 cholecalciferol, vitamin D3, (VITAMIN D3 ORAL) Take by mouth. ascorbic acid (VITAMIN C ORAL) Take by mouth. No current facility-administered medications for this visit. ROS: GENERAL: Negative for malaise, significant weight loss and fever. HEENT: No changes in hearing or vision, no nose bleeds or other nasal problems. RESPIRATORY: Negative for cough, wheezing and shortness of breath. CARDIOVASCULAR: Negative for chest pain, leg swelling and palpitations. GI: Negative for abdominal discomfort, blood in stools or black stools. : Negative for dysuria, frequency and incontinence. MUSCULOSKELETAL: Negative for joint pain or swelling, back pain, and muscle pain. SKIN: Negative for lesions, rash, and itching. HEMATOLOGY/LYMPHOLOGY Negative for prolonged bleeding, bruising easily, and swollen nodes. ENDOCRINE: Negative for cold or heat intolerance, polyuria, polydipsia and goiter. NEURO: Negative for headaches, syncope, seizures and paralysis. PFSH: see hpi VITAL SIGNS: There were no vitals filed for this visit. MENTAL STATUS EXAM: CONSTITUTIONAL: Well groomed ORIENTATION: Person, Place, Time and Situation MEMORY: Recent intact, Remote intact, Immediate intact CONCENTRATION: Normal MOOD: euthymic AFFECT: Full and appropriate to topic SPEECH : Clear & distinct LANGUAGE : Normal ASSOCIATIONS: Intact THOUGHT PROCESS : Logical, Coherent, and Rational PROGRESSION : There was no evidence of disturbance in thought perception or progression. FUND OF KNOWLEDGE : Appropriate and Adequate SUICIDE: None HOMICIDE: None DATA REVIEWED: Electronic medical record DIAGNOSIS: PRIMARY: Mood Disorder Major Depressive Disorder, Recurrent, In Full Remission Secondary : Anxiety Disorder Anxiety Disorder NOS GAF: 72 -[id number] If symptoms are present, they are transient and expectable reactions to psychosocialstressors TREATMENT PLAN: 1. no changes in medications. She has been consistent with medications and denies side effects verbalized understanding that she will need to be seen every 6 mos by this prescriber if she wants refills. if remains stable next visit, can return to pcp for optometrist/practice owner medication management mood is good and stable; has lost 120# since bariatric surgery last year 2. aims test normal on 09/18/22, no abnormal movements 3. continue with effexor 75mg bid, lamictal 150mg at hs; stop if rash develops, abilify 2mg daily MEDICATION CHANGES: Current medication regimen unchanged. Follow Up: 12 mos and as needed she will call to schedule appointment I spent a total of 20 minutes on the date of the service which included preparing to see the patient, [id number] patient care, completing clinical documentation, obtaining and/or reviewing separately obtained history, performing a medically appropriate examination, counseling and educating the pat ient/family/caregiver, ordering medications, tests, or procedures, and care coordination (not separately reported). ADD ON PSYCHOTHERAPY CODE : No SIGNATURE: Davon Downs APRN.CNP PATIENT NAME: Fernanda Hernandez DATE: September 18, 2022 TIME: 4:33 PM documented in this encounterMer[facility]04-27-2023 Miscellaneous Notes* Telephone Encounter - Ellie Kwong - 09/18/2022 3:47 PM EDT Spoke with patient confirming today's virtual visit at 4:30 PM. Ellie Kwong documented in this [facility]04-22-2023 Hospital Discharge instructions Additional Instructions Follow up with PCP 3-5 days. Return for any worsening of symptoms.[facility] Work Phone: [phone]) 460-337104-20-2023 Miscellaneous Notes* Telephone Encounter - Ellie Kwong - 09/11/2022 3:53 PM EDT 09/11/2022 - called patient to setup a future virtual visit, no answer. Sent patient a [employer] message regarding an available appointment. Ellie Kwong documented in this [facility]04-11-2023 Instructions* Patient Instructions* Mandie Garcia PA-C - 09/02/2022 5:18 PM EDT Ice/ moist heat, lineaments, OTC analgesics as needed. Stretching and posture reviewed. Push fluids. documented in this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 Tdap) due on 06/09/2021 INFLUENZA(1) due on 01/23/2022 EXAM: BP 110/78 Pulse 73 Resp 16 Wt 95.3 kg (210 lb) LMP (LMP Unknown) SpO2 98% BMI 38.16 kg/m Pleasant overweight woman in no acute distress. Alert and oriented all spheres. Normal affect and cognition. Speech normal. No deficits to learning or comprehension. Skin warm, dry, pink to lips and nailbeds. Normal turgor. Respirations regular and unlabored. Standing posture demonstrates right shoulder slightly rotated forward anteriorly and also lower than left shoulder causing the medial head of the clavicle to protrudes more significantly than the left. I explained to the patient this is normal. She is tender along the insertion of the SCM muscle on the clavicle and has tender over the 2 distal trigger points. Also has trigger points posterior occipital and upper trapezius on the right. Mild restrictions in sidebending and rotation to the right and also to the left although the left is better. Tender trigger points through the upper shoulder muscles and segments with ribs. No loss of strength in the upper extremities. No sensory loss. OMT: Myofascial release to SCM trigger points and other trigger points in the posterior neck and upper shoulders. Muscle energy techniques, strain counterstrain, HVLA to cervical segments bilaterally, multiple thoracic segments with some improvement the patient always identifies she is better the next day and still has some discomfort. ASSESSMENT/PLAN: 1. Neck sprain, initial encounter - ICD9: 847.0, ICD10: S13.9XXA (primary diagnosis) 2. Cervicothoracic somatic dysfunction - ICD9: 739.1, ICD10: M99.01 Fragment ice, moist heat, topical liniments, and gentle stretching which was reviewed. Patient can do muscle energy techniques as demonstrated at home. Caution patient on mix of medications with muscle relaxers, will prescribe Flexeril but she cannot take it with Fioricet. Cautioned on drowsy side effects. Follow-up as needed if symptoms or not improving over the next day or 2. - CYCLOBENZAPRINE 10 MG TABLET Mandie Garcia PA-C Some of this note may have been copied and pasted for the purpose of history context and comparison. documented in this encounterMer[facility]09-27-2022 Instructions* Patient Instructions* Mandie Garcia PA-C - 02/18/2022 12:14 PM EDT Rest the joint. Ice over next few days to help with pain and swelling. Elevate as often as possibleto reduce swelling and throbbing. Compression with an BOBBY wrap or elastic brace may feel more comfortable. Ice helps to break pain cycles. Moist helps muscles and ligaments to relax. Both may be effective. You may ice first for 10-15 minutes, then apply moist heat for 10-15 minutes every few hours as needed. If pain or swelling worsen, call the office. If pain is not steadily improving over the next two weeks, call the office. Flexeril is a muscle relaxer which can cause drowsiness and may be habit forming if used regularly for extended periods. You should not drink alcohol, drive, or operate dangerous machinery while taking this medication. Do not take this with Fioracet: one of the other. Stretches and muscle energy techniques a few times a day as discussed. Ice/ moist heat, lineaments, OTC analgesics as needed. Stretching and posture reviewed. [place] 4% lidocaine documented in this encounterMer[facility]09-24-2022 Miscellaneous Notes* Telephone Encounter - Kim Arrington Ma - 02/15/2022 8:55 AM EDT Pt was given Skelaxin 800 mg to take yesterday. documented [facility] Miscellaneous Notes* Telephone Encounter - Mandie Garcia PA-C - 02/04/2022 1:16 PM EDT The following approved medication requests have been transmitted electronically. Requested Prescriptions Signed Prescriptions Disp Refills predniSONE (DELTASONE) 20 mg tablet 6 tablet 0 Sig: Take 2 tablets by mouth once daily for 3 days. Mandie Garcia PA-C documented in this encounterMer[facility]09-12-2022 Miscellaneous Notes* Telephone Encounter - Jeri Leung LPN - 02/03/2022 11:21 AM EDT Last office visit: 01/16/22 See My Chart message. Patient asking for something stronger. documented in this [facility]08-25-2022 Instructions* Patient Instructions* Mandie Garcia PA-C - 01/16/2022 2:55 PM EDT Ice/ moist heat, lineaments, OTC analgesics as needed. Stretching and posture reviewed. Try to let your jaw relax. Make a conscious effort not to clench or grind. Avoid any excessive chewing. Use soft foods, ground meat, and avoid gum, candy, soft breads, or anything that makes you use you jaw. Trigger point massage over the muscle knots palpable at the angle of your jaw may help. After a fewminutes of steady pressure or circling motion, the muscles will relax, and the knot will go away. You might try taking the palms over your hands, pressing in firmly over the jaw, and slowing sliding your hands down the sides of your face, opening and pulling your jaw downward. Moist heat for 10-20min may also help relax the muscles. You may use over the counter analgesics such as Tylenol, Advil or Aleve. If you clench or grind at night, seeing an family dentist or oral surgeon might be helpful to make a bite plate to keep you from being able to completely close your mouth. In the meantime, for about $20 you can purchase a moldable Doctor's Boring Inspector over the counter at most [email or web address] or [employer]. Behavioral therapy can also help to retrain the habits of clenching or grinding. documented in this encounterMercy [facility]08-25-2022 History of Present illness Narrative* Mandie Garcia PA-C - 01/16/2022 2:40 PM EDT 41 year old female with c/o neck and upper toño pain over lat couple weeks. Causing headache acros frontal and temporal areas. Nausea when bad, no vomiting, light or sound sensitivity Living on Tylenol . Found Fioracet tablets and tried one. Asking for OMT which usually helps HISTORIES FAMILY HISTORY Problem Relation Age of Onset Arthritis Mother Diabetes Mother Headache Father Lipids Father Headache Sister Diabetes Maternal Grandfather Stroke Maternal Grandfather Alcohol/Drug Paternal Grandmother ETOH Alcohol/Drug Paternal Grandfather ETOH Cancer Paternal Grandfather LUNG Alcohol/Drug Paternal Aunt ETOH Alcohol/Drug Paternal Uncle ETOH Cancer Paternal Uncle LUNG PAST MEDICAL HISTORY Diagnosis Date Delayed emergence from general anesthesia Fibromyalgia 08/20/2016 GERD (gastroesophageal reflux disease) 03/12/2009 Hypoglycemia, unspecified Mental disorder anxiety and depression Migraine without aura 2001 Morbid obesity (HCC) Normal cardiac stress test 01/23/12 PONV (postoperative nausea and vomiting) Sleep apnea Snoring Unspecified prophylactic or treatment measure PAST SURGICAL HISTORY Procedure Laterality Date COLONOSCOPY W/BIOPSY SINGLE/MULTIPLE 12/14/2018 EGD 01/31/2020 ESOPHAGOGASTRODUODENOSCOPY TRANSORAL DIAGNOSTIC 04/11/2005 EGD ESOPHAGOGASTRODUODENOSCOPY TRANSORAL DIAGNOSTIC 03/06/2017 EGD GASTRIC BYPASS, TATI-EN-Y 11/08/2020 w/ Lap hiatal hernia repair LAP REPAIR, PARAESOPHAGEAL HIATAL HERNIA 11/08/2020 LAPAROSCOPY SURG CHOLECYSTECTOMY 03/21/2016 REDUCTION OF LARGE BREAST 2014 TONSILLECTOMY & ADENOIDECTOMY AGE 11/> 2002 DR. 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 Take active pills only. No inactive week. 84 tablet 5 ARIPiprazole (ABILIFY) 2 mg tablet Take 1 tablet by mouth once daily. no further refills until seenfor an appointment 90 tablet 2 venlafaxine (EFFEXOR) 75 mg tablet Take 1 tablet by mouth twice daily. 180 tablet 2 lamoTRIgine (LAMICTAL) 150 mg tablet Take 1 tablet by mouth once daily. [address] (PROTONIX) 20 mg tablet Take 1 tablet by mouth twice daily. 60 tablet 11 acetaminophen 300 mg-caffeine 40 mg-butalbital 50 mg (FIORICET) per capsule Take 1 capsule by mouthevery 4 hours as needed. (Patient taking differently: Take 1 capsule by mouth every 4 hours as needed. rarely taking this medication) 12 capsule 0 iron polysaccharide complex (FERREX-150) 150 mg iron capsule Take 1 capsule by mouth twice daily. 60 capsule 5 Multivitamin capsule Take 1 capsule by mouth once daily. BIOTIN, BULK, MISC cholecalciferol, vitamin D3, (VITAMIN D3 ORAL) Take by mouth. ascorbic acid (VITAMIN C ORAL) Take by mouth. albuterol HFA (PROVENTIL HFA, VENTOLIN HFA) 90 mcg/actuation inhaler Inhale 2 Puffs as instructed every 4 hours as needed. (Patient not taking: Reported on 11/21/2021 ) 1 Each 5 No current facility-administered medications for this visit. HEPATITIS B(1 of 3 - 3-dose series) due on 1979 HEPATITIS C SCREENING Never done HIV SCREENING Never done MAMMOGRAM due on 06/07/2021 DTAP,TDAP,TD(7 - Td or Tdap) due on 06/09/2021 EXAM: BP 112/72 Pulse 77 Resp 16 Wt 93.9 kg (207 lb) LMP (LMP Unknown) SpO2 99% BMI 37.61 kg/m Pleasant adult woman maintaining weight loss in no acute distress. Alert and oriented all spheres. Normal affect and cognition. Speech normal. No deficits to learning or comprehension. Skin warm, dry, pink to lips and nailbeds. Normal turgor. Respirations regular and unlabored. HEENT: NCAT. PERRLA.EOMI. No scleral icterus or conjunctival injection. TM's clear. Nose and oropharynx free from injection or lesion. Oral membranes moist and pink. No cervical lymph nodes. Thyroid non-tender, no masses, or enlargement. Carotids pulses 2+/4+ without bruits. No JVD with HOB at 30 de grees. Neck supple with mild restrictions bilateral side bending and left rotation. TTPsbilateral cervicaland upper traps, Bilateral TMJs and SCM insertions. Extrem: no clubbing or cyanosis. Edema: none. Extremities are warm and pink with prompt capillary refill. OMT: Myofascial release to bilateral TMJ trigger points, SCM insertions, posterior scalenes and upper traps. HVLA bilaterally to cervical segments right and left C5, upper thoracic T1, multiple segments to mid Thoracics. Patient acknowledges some sense of improvement, states that usually takes a day for her to improve. ASSESSMENT/PLAN: 1. TMJ syndrome - ICD9: 524.69, ICD10: M26.629 (primary diagnosis) Encouraged to try to relax jaws as previously discussed. Avoid excessive chewing. Try to make conscious effort to rest tongue on upper teeth. Can use home medications as needed. 2. Muscle tension headache - ICD9: 307.81, ICD10: G44.209 As above, push fluids 3. Cervicothoracic somatic dysfunction - ICD9: 739.1, ICD10: M99.01 Follow-up as needed for retreatment Mandie Garcia PA-C documented in this encounterMer[facility]08-18-2022 Miscellaneous Notes* Telephone Encounter - Cher Andre RN - 01/09/2022 5:27 PM EDT I called pharmacy and spoke with Marie and they have new RX on file and will pull that documented in this encounterMercy [facility] Hospital07-26-2022 History of Present illness Narrative* Deborah Whittaker APRN.CNP - 12/17/2021 2:56 PM EDT Statistical Clerk offered: Patient declinesDiamond Michael is a 41 year old who presents for an annual gynecologic exam with complaints, vaginal discharge, sour smell in the AM, yellow in color, large amount- this has been ongoing for about 2 months Menses: no menses - continuous OCPs. Contraception: combined hormonal contraceptives HPV vaccine: No Last Pap: 03/07/2019 normal HPV: 03/07/2019 negative History of abnormal pap: Yes Last mammogram: 2020normal Sexually active: Yes OB History T0 L1 SAB0 IAB0 Ectopic0 Multiple0 Live Births0 Infant Babysitter History LMP: LMP Unknown, Drug Induced Amenorrhea Age at Menarche: Age at First : Age at Menopause: Infant Babysitter History Comments: Sexual Activity: Not Currently; Male Contraception: Pill PAST MEDICAL HISTORY Diagnosis Date Delayed emergence from general anesthesia Fibromyalgia 08/20/2016 GERD (gastroesophageal reflux disease) 03/12/2009 Hypoglycemia, unspecified Mental disorder anxiety and depression Migraine without aura 2001 Morbid obesity (HCC) Normal cardiac stress test 01/23/12 PONV (postoperative nausea and vomiting) Sleep apnea Snoring Unspecified prophylactic or treatment measure PAST SURGICAL HISTORY Procedure Laterality Date COLONOSCOPY W/BIOPSY SINGLE/MULTIPLE 12/14/2018 EGD 01/31/2020 ESOPHAGOGASTRODUODENOSCOPY TRANSORAL DIAGNOSTIC 04/11/2005 EGD ESOPHAGOGASTRODUODENOSCOPY TRANSORAL DIAGNOSTIC 03/06/2017 EGD GASTRIC BYPASS, TATI-EN-Y 11/08/2020 w/ Lap hiatal hernia repair LAP REPAIR, PARAESOPHAGEAL HIATAL HERNIA 11/08/2020 LAPAROSCOPY SURG CHOLECYSTECTOMY 03/21/2016 REDUCTION OF LARGE BREAST 2014 TONSILLECTOMY & ADENOIDECTOMY AGE 11/> 2002 DR. EASTMAN FAMILY HISTORY Problem Relation Age of Onset Arthritis Mother Diabetes Mother Headache Father Lipids Father Headache Sister Diabetes Maternal Grandfather Stroke Maternal Grandfather Alcohol/Drug Paternal Grandmother ETOH Alcohol/Drug Paternal Grandfather ETOH Cancer Paternal Grandfather LUNG Alcohol/Drug Paternal Aunt ETOH Alcohol/Drug Paternal Uncle ETOH Cancer Paternal Uncle LUNG SOCIAL HISTORY Social History Tobacco Use Smoking status: Former Smoker Packs/day: 0.50 Years: 12.00 Pack years: 6.00 Types: Cigarettes Quit date: 07/22/2013 Years since quittin.4 Smokeless tobacco: Never Used Vaping Use Vaping Use: Never used Substance Use Topics Alcohol use: Yes Comment: Rarely Drug use: No REVIEW OF SYSTEMS Abdomen: No abdominal pain, nausea, vomiting, diarrhea, or constipation. No bloating, early satiety, indigestion, or increased flatulence. Bladder: No dysuria, gross hematuria, urinary frequency, urinary urgency, or incontinence. Breast: No breast lumps, nipple d/c, overlying skin changes, redness or skin retraction. Allergies and current medication updated:Yes EXAM: BP 116/74 Ht 5' 2.205 (1.58m) Wt 207 lb (93.9kg) BMI 37.61 kg/(m^2). GENERAL: pleasant, female in no apparent distress HEENT: Normocephalic, atraumatic, mucus membranes moist and no lesions NECK: Supple, full range of motion, no adenopathy and thyroid normal DERMATOLOGY: Normal, without lesions, non-icteric and non-hirsute BREAST: soft, non-tender, symmetric, no dominant mass, normal nipple-areolar complex, no lymphadenopathy and no nipple discharge CHEST: Normal inspiratory effort ABDOMEN: soft, non-tender and no masses PELVIC: external genitalia normal, normal Bartholin's glands, urethra, [place]'s glands, no vulvar lesions, no cervical lesions, physiologic discharge present, normal appearing perineal body and perianal region BIMANUAL: uterus normal size, shape and consistency, no adnexal masses and non-tender RECTOVAGINAL: deferred. NEURO: alert and oriented x3,exam grossly non-focal EXTREMITIES: normal ASSESSMENT/PLAN: 1) Health maintenance: Pap/HPV up to date. Mammogram ordered. Nutrition, exercise and routine health maintenance exams reviewed. Calcium/Vitamin D supplementation information provided. 2) Contraception: combined hormonal contraceptives. Contraceptive options reviewed and information provided. 3) STD screening: Accepted STD check for Gonorrhea and Chlamydia. 4) Follow up one year or sooner as needed 5) BV/yeast/trich ordered for discharge Deborah Whittaker APRN.CNP documented in this encounterMer[facility]07-[facility]-2022 Miscellaneous Notes* Telephone Encounter - Dilia Ortiz APRN.CNM - 11/26/2021 10:21 AM EDT I will send for 1 refill but she will need seen in office for any future prescriptions. Dilia Ortiz APRN.CNM * Telephone Encounter - Mary Lucia RN - 11/26/2021 9:30 AM EDT Patient over due for annual exam. Last annual was 05/15/20. Zidisha message sent today and on 11/09/21 that she needs an annual. RX on 11/09/21 was refused because 3 packs were sent back in August. Patient's message states she is out of her medication. Was due to start a new pack on Thursday. Please review in RM's absence. Thank you. Pending Prescriptions Disp Refills NORGESTIMATE 0.25 MG-ETHINYL ESTRADIOL 35 MCG TABLET 84 tablet 0 VALENTE: No documented in this encounterMercy [facility]06-30-2022 History of Present illness Narrative* Davon Downs APRN.CNP - 11/21/2021 10:34 AM EDT Images from the original note were not included. PSYC FOLLOW UP - PSYCHIATRIC PROGRESS NOTE CC: medication management With the patient consent, visit was performed virtually. HPI: Fernanda returns for a medication management follow-up appointment. She has not seen this provided for over 18 mos. She has lost 140# since her bariatric surgery last year. She feels good. She was 346# prior to surgery. She has more energy now. Mood has good and even. She denies si/hi. She denies any major stressors in her life at this point. Sleep is normal and gets 9 hours per night. She has noted she has been feeling tired over the past 2 weeks. Since she got back from vacation, she has not taken vitamins in 2 weeks and thinks this is why she is tired. She reports appetite is good; eating 2 times per day but small amounts. She reports taking medication daily and denies side effects. She did run out of Abilify for a few days,but did get this refilled. She never ran out of Effexor or Lamictal. She would like to continue with the current medications at this. Risks and benefits of the medication, including any black box warnings, were discussed with the patient. Fernanda verbalized understanding to all instructions and is in agreement with the treatment plan; confirmed that she would get to ER if needed for increase symptoms or safety concerns. Interval Progress: Improved PATIENT DATA: Generalized Anxiety Disorder Scale (LIZY-7) LIZY - 7 SCORES 01/16/2020 11/21/2021 LIZY-7 Score 8 0 (0-4) minimal anxiety, (5-9) mild anxiety, (10-14) moderate anxiety, (15-21) severe anxiety Patient Health Questionnaire (PHQ-9) PHQ-9 01/16/2020 02/13/2020 11/21/2021 Score 9 3 5 (0-4) minimal depression, (5-9) mild depression, (10-14) moderate depression, (15-19) moderately severe depression, (20-27) severe depression PROMIS Global Health PROMIS Global Health - (T-Scores - the mean of general population = 50. Five points is a clinicallymeaningful difference.) 01/16/2020 04/23/2020 10/31/2020 Physical T-Score 37.4 39.8 39.8 Mental T-Score 36.3 38.8 43.5 Abnormal Involuntary Movement Scale Abnormal Involuntary Movement Scale (AIMS) 11/21/2021 Muscles of facial expression None, normal Lips and perioral area None, normal Jaw None, normal Tongue None, normal Upper (arms, wrists, hands, fingers) None, normal Lower (legs, knees, ankles, toes) None, normal Neck, shoulders, hips None, normal Severity of abnormal movements None, normal Incapacitation due to abnormal movements None, normal Patient's awareness of abnormal movements No awareness Current problems with teeth and/or dentures? (0=no, 1=yes) 0 Does patient usually wear dentures? (0=no, 1=yes) 0 Edentia? (0=no, 1=yes) 0 PAST MEDICAL HISTORY Diagnosis Date Delayed emergence from general anesthesia Fibromyalgia 08/20/2016 GERD (gastroesophageal reflux disease) 03/12/2009 Hypoglycemia, unspecified Mental disorder anxiety and depression Migraine without aura 2001 Morbid obesity (HCC) Normal cardiac stress test 01/23/12 PONV (postoperative nausea and vomiting) Sleep apnea Snoring Unspecified prophylactic or treatment measure PAST SURGICAL HISTORY Procedure Laterality Date COLONOSCOPY W/BIOPSY SINGLE/MULTIPLE 12/14/2018 EGD 01/31/2020 ESOPHAGOGASTRODUODENOSCOPY TRANSORAL DIAGNOSTIC 04/11/2005 EGD ESOPHAGOGASTRODUODENOSCOPY TRANSORAL DIAGNOSTIC 03/06/2017 EGD GASTRIC BYPASS, TATI-EN-Y 11/08/2020 w/ Lap hiatal hernia repair LAP REPAIR, PARAESOPHAGEAL HIATAL HERNIA 11/08/2020 LAPAROSCOPY SURG CHOLECYSTECTOMY 03/21/2016 REDUCTION OF LARGE BREAST 2014 TONSILLECTOMY & ADENOIDECTOMY AGE 11/> 2003 DR. EASTMAN Current Outpatient Medications Medication Sig Dispense Refill ARIPiprazole (ABILIFY) 2 mg tablet Take 1 tablet by mouth once daily. no further refills until seenfor an appointment [address] (PROTONIX) 20 mg tablet Take 1 tablet by mouth twice daily. 60 tablet 11 acetaminophen 300 mg-caffeine 40 mg-butalbital 50 mg (FIORICET) per capsule Take 1 capsule by mouthevery 4 hours as needed. 12 capsule 0 TAMARA 0.25-35 mg-mcg per tablet TAKE 1 TABLET BY MOUTH ONCE DAILY. TAKE ACTIVE PILLS ONLY. START A NEW PACK EVERY 3 WEEKS. 84 tablet 0 iron polysaccharide complex (FERREX-150) 150 mg iron capsule Take 1 capsule by mouth twice daily. 60 capsule 5 venlafaxine (EFFEXOR) 75 mg tablet TAKE 1 TABLET BY MOUTH TWICE A DAY 180 tablet 0 Multivitamin capsule Take 1 capsule by mouth once daily. BIOTIN, BULK, MISC lamoTRIgine (LAMICTAL) 150 mg tablet Take 1 tablet by mouth once daily. 90 tablet 1 cholecalciferol, vitamin D3, (VITAMIN D3 ORAL) Take by mouth. ascorbic acid (VITAMIN C ORAL) Take by mouth. albuterol HFA (PROVENTIL HFA, VENTOLIN HFA) 90 mcg/actuation inhaler Inhale 2 Puffs as instructed every 4 hours as needed. (Patient not taking: Reported on 11/21/2021 ) 1 Each 5 No current facility-administered medications for this visit. ROS: GENERAL: Negative for malaise, significant weight loss and fever. HEENT: No changes in hearing or vision, no nose bleeds or other nasal problems. RESPIRATORY: Negative for cough, wheezing and shortness of breath. CARDIOVASCULAR: Negative for chest pain, leg swelling and palpitations. GI: Negative for abdominal discomfort, blood in stools or black stools. : Negative for dysuria, frequency and incontinence. MUSCULOSKELETAL: Negative for joint pain or swelling, back pain, and muscle pain. SKIN: Negative for lesions, rash, and itching. HEMATOLOGY/LYMPHOLOGY Negative for prolonged bleeding, bruising easily, and swollen nodes. ENDOCRINE: Negative for cold or heat intolerance, polyuria, polydipsia and goiter. NEURO: Negative for headaches, syncope, seizures and paralysis. PFSH: see hpi VITAL SIGNS: There were no vitals filed for this visit. MENTAL STATUS EXAM: CONSTITUTIONAL: Well groomed ORIENTATION: Person, Place, Time and Situation MEMORY: Recent intact, Remote intact, Immediate intact CONCENTRATION: Normal MOOD: euthymic AFFECT: Full and appropriate to topic SPEECH : Clear & distinct LANGUAGE : Normal ASSOCIATIONS: Intact THOUGHT PROCESS : Logical, Coherent and Rational PROGRESSION : There was no evidence of disturbance in thought perception or progression. FUND OF KNOWLEDGE : Appropriate and Adequate SUICIDE: None HOMICIDE: None DATA REVIEWED: Electronic medical record DIAGNOSIS: 1. PRIMARY: Mood Disorder Major Depressive Disorder, Recurrent, In Full Remission 2. Secondary : Anxiety Disorder Anxiety Disorder NOS GAF: 70 -70-61 Some mild symptoms or some difficulty in social, occupational, or school functioning, but generally functioning pretty well. TREATMENT PLAN: 1. no changes in medications. She has been consistent with medications and denies side effects verbalized understanding that she will need to be seen every 6 mos by this prescriber if she wants refills. 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 aims test normal; no abnormal movements 3. continue with effexor 75mg bid, lamictal 150mg at hs; stop if rash develops, abilify 2mg daily MEDICATION CHANGES: Current medication regimen unchanged. Follow Up: 6 months I spent a total of 23 minutes on the date of the service which included preparing to see the patient, [id number] patient care, completing clinical documentation, obtaining and/or reviewing separately obtained history, performing a medically appropriate examination, counseling and educating the pat ient/family/caregiver and ordering medications, tests, or procedures. ADD ON PSYCHOTHERAPY CODE : No SIGNATURE: Davon Downs APRN.CNP PATIENT NAME: Fernanda Hernandez DATE: November 21, 2021 TIME: 10:34 AM PAGER: n/a documented in this encounterMer[facility]06-24-2022 Miscellaneous Notes* Telephone Encounter - Cong Kunz LPN - 11/15/2021 3:04 PM EDT Patient has been identified by name and date of : Yes Pending Prescriptions Disp Refills PANTOPRAZOLE 20 MG TABLET,DELAYED RELEASE 60 tablet 11 Sig: Take 1 tablet by mouth twice daily. VALENTE: No RX INSTRUCTIONS: Patient aware RX will be sent to pharmacy. No need to notify patient. Cong Kunz LPN documented in this encounterMercy [facility] Hospital06-24-2022 Miscellaneous Notes* Telephone Encounter - Henrietta Leo - 11/15/2021 9:38 AM EDT Patient requesting refill(s): [facility] Last Seen: 05/12/20 Upcoming appt: None scheduled Pending Prescriptions Disp Refills ARIPIPRAZOLE 2 MG TABLET 30 tablet 0 Sig: Take 1 tablet by mouth once daily. no further refills until seen for an appointment VALENTE: No Please review and process accordingly. Thank you! documented in this encounterMercy [facility] Hospital06-20-2022 Miscellaneous Notes* Telephone Encounter - Ellie Kwong - 11/11/2021 10:55 AM EDT Patient has been identified by name and date of : Yes Pending Prescriptions Disp Refills LAMOTRIGINE 150 MG TABLET 90 tablet 1 Sig: TAKE 1 TABLET BY MOUTH EVERY DAY VALENTE: Yes VENLAFAXINE 75 MG TABLET 180 tablet 0 Sig: TAKE 1 TABLET BY MOUTH TWICE A DAY VALENTE: Yes ARIPIPRAZOLE 2 MG TABLET 30 tablet 0 Sig: TAKE 1 TABLET BY MOUTH EVERY DAY NO FURTHER REFILLS UNTIL SEEN FOR APPOINTMENT VALENTE: Yes JADEN: 05/22/2020 FOV: None scheduled LABS: Component Latest Ref Rng & Units 04/24/2021 Protein, Total 6.3 - 8.0 g/dL 6.6 Albumin 3.9 - 4.9 g/dL 3.7 (L) Calcium 8.5 - 10.2 mg/dL 8.8 Bilirubin, Total 0.2 - 1.3 mg/dL 0.2 Alkaline Phosphatase 34 - 123 U/L 81 AST 13 - 35 U/L 28 Glucose 74 - 99 mg/dL 65 (L) BUN 7 - 21 mg/dL 8 Creatinine 0.58 - 0.96 mg/dL 0.91 Sodium 136 - 144 mmol/L 141 Potassium 3.7 - 5.1 mmol/L 3.4 (L) Chloride 97 - 105 mmol/L 104 CO2 22 - 30 mmol/L 25 Anion Gap 9 - 18 mmol/L 12 ALT 7 - 38 U/L 27 eGFR- >60 eGFR-All Other Races . >60 Component Latest Ref Rng & Units 04/24/2021 WBC 3.70 - 11.00 k/uL 6.82 RBC 3.90 - 5.20 m/uL 4.61 Hemoglobin 11.5 - 15.5 g/dL 12.7 Hematocrit 36.0 - 46.0 % 41.2 MCV 80.0 - 100.0 fL 89.4 MCH 26.0 - 34.0 pG 27.5 MCHC 30.5 - 36.0 g/dL 30.8 RDW-CV 11.5 - 15.0 % 15.7 (H) Platelet Count 150 - 400 k/uL 344 MPV 9.0 - 12.7 fL 11.9 Absolute nRBC <0.01 k/uL <0.01 Component Latest Ref Rng & Units 01/22/2021 TSH 0.270 - 4.200 uU/mL 2.870 RX INSTRUCTIONS: Pharmacy initiated this request. No need to notify patient. Ellie Kwong documented in this encounterMercy [facility] Hospital06-20-2022 Miscellaneous Notes* Telephone Encounter - Marti Mcintyre RN - 11/11/2021 9:58 AM EDT Last annual 05/15/20. Zidisha message sent to patient. Tamara refill was sent 09/20/21 for 3 packs Marti Mcintyre RN documented in this encounterMercy [facility] Hospital06-02-2022 History of Present illness Narrative* Deborah Whittkaer APRN.AGENCY OWNER - 10/24/2021 2:56 PM EDT Fernanda Hernandez is a 41 year old female who presents for vaginal pruritis, discharge and dysuria for3 week(s). [facility] [place] [facility] Vaginal discharge: moderate amount, thick and yellow. Itching: YES Dyspareunia: No Fever/chills: No Abdominal pain: No Bladder: dysuria Bowel: No blood in stool, pain with BM, tarry stool, persistent diarrhea or constipation Any new sexual partners or concern for STD exposure: Yes: in the last 2 weeks Are you currently taking any medications to treat vaginitis: Yes, Monistat 3 Do you use feminine sprays, douches or deodorants: No Past medical, surgical, social history, medications and allergies reviewed and updated. OBJECTIVE: BP 120/70 Wt 204 lb 12.8 oz (92.9kg) GENERAL: Well developed, well nourished in no apparent distress PELVIC: external genitalia normal, normal Bartholin's glands, urethra, [place]aine's glands, no vulvar lesions, no cervical lesions, physiologic discharge present, normal appearing perineal body and perianal region BIMANUAL: deferred. ASSESSMENT/PLAN: 1. Vaginal discharge - ICD9: 623.5, ICD10: N89.8 - GC/CHLAMYDIA DNA DET - THONY / TRICHOMONAS AMPLIFICATION - BACTERIAL VAGINOSIS AMPLIFICATION Deborah Whittaker APRN.RACHID Medical Decision Making: Problems: Moderate: New problem with uncertain prognosis Data: Unique test(s) ordered: 3+ Risk: Low: Low risk from testing/treatment Medical Decision Making Level: 4 - Moderate documented in this encounterMercy [facility] Hospital05-23-2022 Miscellaneous Notes* Telephone Encounter - Cong Kunz LPN - 10/14/2021 12:28 PM EDT Patient has been identified by name and date of : Yes Pending Prescriptions Disp Refills [id number] 50 MG-300 MG-40 MG CAPSULE 12 capsule 0 Sig: Take 1 capsule by mouth every 4 hours as needed. VALENTE: No RX INSTRUCTIONS: Mychart request Last seen 08/27/21 No future visit scheduled Cong Kunz LPN documented in this encounterMercy [facility] Hospital05-23-2022 Miscellaneous Notes* Telephone Encounter - Lila Gabriel RN - 10/14/2021 10:21 AM EDT Patient has been identified by name and date of : Yes Pending Prescriptions Disp Refills ARIPIPRAZOLE 2 MG TABLET 90 tablet 1 Sig: Take 1 tablet by mouth once daily. VALENTE: No Last office visit 05/22/2020 Future office visit none scheduled Labs Component Latest Ref Rng & Units 04/24/2021 Protein, Total 6.3 - 8.0 g/dL 6.6 Albumin 3.9 - 4.9 g/dL 3.7 (L) Calcium 8.5 - 10.2 mg/dL 8.8 Bilirubin, Total 0.2 - 1.3 mg/dL 0.2 Alkaline Phosphatase 34 - 123 U/L 81 AST 13 - 35 U/L 28 Glucose 74 - 99 mg/dL 65 (L) BUN 7 - 21 mg/dL 8 Creatinine 0.58 - 0.96 mg/dL 0.91 Sodium 136 - 144 mmol/L 141 Potassium 3.7 - 5.1 mmol/L 3.4 (L) Chloride 97 - 105 mmol/L 104 CO2 22 - 30 mmol/L 25 Anion Gap 9 - 18 mmol/L 12 ALT 7 - 38 U/L 27 eGFR- >60 eGFR-All Other Races . >60 Component Latest Ref Rng & Units 04/24/2021 WBC 3.70 - 11.00 k/uL 6.82 RBC 3.90 - 5.20 m/uL 4.61 Hemoglobin 11.5 - 15.5 g/dL 12.7 Hematocrit 36.0 - 46.0 % 41.2 MCV 80.0 - 100.0 fL 89.4 MCH 26.0 - 34.0 pG 27.5 MCHC 30.5 - 36.0 g/dL 30.8 RDW-CV 11.5 - 15.0 % 15.7 (H) Platelet Count 150 - 400 k/uL 344 MPV 9.0 - 12.7 fL 11.9 Absolute nRBC <0.01 k/uL <0.01 Component Latest Ref Rng & Units 01/22/2021 TSH 0.270 - 4.200 uU/mL 2.870 RX INSTRUCTIONS: Patient aware RX will be sent to pharmacy. No need to notify patient. Lila Gabriel RN documented in this encounterMercy [facility] Hospital05-16-2022 Instructions* Patient Instructions* Leticia Walls APRN.RACHID - 10/07/2021 8:56 AM EDT Rest, ice, elevation, post op shoe as needed for comfort. Tylenol (generic acetaminophen) 500 mg-2 tabs every 8 hrs. as needed for fever and aches if pain persists beyond 10-14 days there are times where a repeat x-ray is needed to rule out occult fracture Follow up with PCP/podiatry as needed documented in this encounterMercy Memorial Hospital05-16-2022 History of Present illness Narrative* Roosevelt Shafer RT(R) - 10/07/2021 8:10 AM EDT Radiology Service Progress Note PATIENT NAME: Fernanda Hernandez DATE OF SERVICE: October 07, 2021 TIME: 8:04 AM PATIENT IDENTITY VERIFICATION COMPLETED USING TWO (2) IDENTIFIERS: Name and Date of confirmedby patient verbally. FALL SCREENING: Has the patient had 2 falls in the last year or 1 fall with injury or currently using an Ambulatory Assistive Device (Walker, Cane, Wheelchair, Crutches, etc.)? No PATIENT GENDER DATA: Female. status: : No status: NO. PATIENT RELEVANT IMPLANT DATA REVIEWED: Yes RADIOLOGY DEPARTMENT: General X-ray: Exam(s) Completed: Lower Extremity X- Ray(s): Foot, Right PERIPHERAL IV DATA: Not applicable SIGNED BY: RT Jessica(Master) October 07, 2021 8:04 AM documented in this encounterMercy Memorial Hospital05-16-2022 History of Present illness Narrative* Leticia Walls APRN.RACHID - 10/07/2021 7:52 AM EDT Images from the original note were not included. Subjective The history is provided by the patient. No language asst was used. HPI Fernanda Hernandez is a 41 year old female who presents today for CC of right foot pain that started yesterday when she turned foot in driveway, not sure if turned inward or outward. She has used nottreatment or medications, she did elevated foot. Intensity: 6 Injury: Yes: unsure Previous ankle injury: No Previous foot No Difficulty ambulating: Yes BP 110/68 Pulse 80 Temp 36.4 C (97.6 F) Resp 16 Wt 93.9 kg (207 lb) LMP (LMP Unknown) SpO2 99% BMI 36.68 kg/m Social History Tobacco Use Smoking status: Former Smoker Packs/day: 0.50 Years: 12.00 Pack years: 6.00 Types: Cigarettes Quit date: 07/22/2013 Years since quittin.2 Smokeless tobacco: Never Used Vaping Use Vaping Use: Never used Substance Use Topics Alcohol use: Yes Comment: Rarely Drug use: No PAST MEDICAL HISTORY Diagnosis Date Delayed emergence from general anesthesia Fibromyalgia 08/20/2016 GERD (gastroesophageal reflux disease) 03/12/2009 Hypoglycemia, unspecified Mental disorder anxiety and depression Migraine without aura 2001 Morbid obesity (HCC) Normal cardiac stress test 01/23/12 PONV (postoperative nausea and vomiting) Sleep apnea Snoring Unspecified prophylactic or treatment measure I have confirmed and edited as necessary, the [facility] Review of Systems Constitutional: Negative for chills and fever. Musculoskeletal: Positive for joint pain (right foot). Negative for myalgias. Skin: Negative for itching and rash. All other systems reviewed and are negative. Objective Physical Exam Vitals and nursing note reviewed. Cardiovascular: Pulses: Dorsalis pedis pulses are 2+ on the right side and 2+ on the left side. Posterior tibial pulses are 2+ on the right side and 2+ on the left side. Pulmonary: Effort: Pulmonary effort is normal. Musculoskeletal: Right foot: Decreased range of motion. Normal capillary refill. Swelling, tenderness and bony tenderness present. No deformity, bunion, Charcot foot, foot drop, prominent metatarsal heads, lacerationor crepitus. Normal pulse. Left foot: Normal. Legs: Skin: General: Skin is warm and dry. Neurological: Mental Status: She is alert and oriented to person, place, and time. Sensory: Sensation is intact. Psychiatric: Mood and Affect: Affect normal. ASSESSMENT/PLAN: 1. Injury of right foot, initial encounter - ICD9: 959.7, ICD10: S99.921A (primary diagnosis) - XR FOOT GENERAL 3V AP/LAT/OBL RIGHT 2. Foot pain, right - ICD9: 729.5, ICD10: M79.671 Rest, ice, elevation, post op shoe as needed for comfort. Tylenol (generic acetaminophen) 500 mg-2 tabs every 8 hrs. as needed for fever and aches if pain persists beyond 10-14 days there are times where a repeat x-ray is needed to rule out occult fracture Follow up with PCP/podiatry as needed - XR FOOT GENERAL 3V AP/LAT/OBL RIGHT 3 views of the right foot are obtained. There is normal architecture and mineralization of the bones. There is no acute fracture or dislocation. Joint spaces are maintained Impression: 1. No acute fracture or dislocation. Interpreted by : INDIRA LANTIGUA MD Diagnosis and treatment plan were discussed and questions were answered to the patient's satisfaction. Pt acknowledged understanding of concepts and follow up plan. Specific signs and symptoms that would indicate the need for higher level of care were discussed indetail warranting prompt ER evaluation. Leticia Walls APRN.RACHID documented in this encounterMercy [facility] Hospital05-02-2022 Miscellaneous Notes* Telephone Encounter - Ania Burgess MA - 09/23/2021 2:15 PM EDT Last office visit: 05/22/2020 [facility] Pharmacy electronically requests the following refill(s) Pending Prescriptions Disp Refills VENLAFAXINE 75 MG TABLET 180 tablet 0 Sig: TAKE 1 TABLET BY MOUTH TWICE A DAY VALENTE: Yes LAMOTRIGINE 150 MG TABLET 90 tablet 1 Sig: TAKE 1 TABLET BY MOUTH EVERY DAY VALENTE: Yes Ania Burgess MA documented in this encounterMercy Memorial Hospital03-23-2022 Miscellaneous Notes* Telephone Encounter - David Cummings LPN - 08/14/2021 11:26 AM EDT Patient phones requesting refills as follows: Pending Prescriptions Disp Refills [id number] 50 MG-300 MG-40 MG CAPSULE 12 capsule 0 Sig: Take 1 capsule by mouth every 4 hours as needed. VALENTE: No JADEN 07/29/21 NOV no upcoming appt Please review and advise. David Cummings LPN [facility] History of Present illness Narrative* Roosevelt Shafer, RT(R) - 03/08/2021 9:40 AM EDT Radiology Service Progress Note PATIENT NAME: Fernanda Hernandez DATE OF SERVICE: March 08, 2021 TIME: 9:39 AM PATIENT IDENTITY VERIFICATION COMPLETED USING TWO (2) IDENTIFIERS: Name and Date of confirmedby patient verbally. FALL SCREENING: Has the patient had 2 falls in the last year or 1 fall with injury or currently using an Ambulatory Assistive Device (Walker, Cane, Wheelchair, Crutches, etc.)? No PATIENT GENDER DATA: Female. status: : No status: NO. PATIENT RELEVANT IMPLANT DATA REVIEWED: Yes RADIOLOGY DEPARTMENT: General X-ray: Exam(s) Completed: Chest X-Ray PERIPHERAL IV DATA: Not applicable SIGNED BY: RT Jessica(R) March 08, 2021 9:39 AM [facility] History of Past illness Narrative* Problem Noted Date Resolved Date Hiatal hernia 11/09/2020 11/09/2020 Tobacco abuse 04/13/2012 07/22/2017 Breakthrough bleeding with IUD 03/04/2012 1 IUD migration 03/04/2012 03/18/2013 Overview: In cervical canal causing severe cramping Carbuncle and furuncle of trunk 05/12/2008 03/12/2015 Decreased movements, a ffecting management of mother, antepartum 01/20/2008 05/12/2008 Adjustment disorder with depressed mood 02/03/20 07 09/15/2019 Acute gastritis without mention of hemorrhage 05/07/2015 Abdominal pain, epigastric 04/02/200503/12 Unspecified prophylactic or treatment measure 03/12/2015 documented as of this encounter (statuses as of 08/14/2021) [facility] illness Narrative* Problem Noted Date Resolved Date Hiatal hernia 11/09/2020 11/09/2020 Tobacco abuse 04/13/2012 07/22/2017 Breakthrough bleeding with IUD 03/04/2012 1 IUD migration 03/04/2012 03/18/2013 Overview: In cervical canal causing severe cramping Carbuncle and furuncle of trunk 05/12/2008 03/12/2015 Decreased movements, a ffecting management of mother, antepartum 01/20/2008 05/12/2008 Adjustment disorder with depressed mood 02/03/20 07 09/15/2019 Acute gastritis without mention of hemorrhage 05/07/2015 Abdominal pain, epigastric 04/02/200503/12 Unspecified prophylactic or treatment measure 03/12/2015 documented as of this encounter (statuses as of 09/24/2021) [facility] Narrative* Problem Noted Date Resolved Date Hiatal hernia 11/09/2020 11/09/2020 Tobacco abuse 04/13/2012 07/22/2017 Breakthrough bleeding with IUD 03/04/2012 1 IUD migration 03/04/2012 03/18/2013 Overview: In cervical canal causing severe cramping Carbuncle and furuncle of trunk 05/12/2008 03/12/2015 Decreased movements, a ffecting management of mother, antepartum 01/20/2008 05/12/2008 Adjustment disorder with depressed mood 02/03/20 07 09/15/2019 Acute gastritis without mention of hemorrhage 05/07/2015 Abdominal pain, epigastric 04/02/200503/12 Unspecified prophylactic or treatment measure 03/12/2015 documented as of this encounter (statuses as of 10/07/2021) [facility] Narrative* Problem Noted Date Resolved Date Hiatal hernia 11/09/2020 11/09/2020 Tobacco abuse 04/13/2012 07/22/2017 Breakthrough bleeding with IUD 03/04/2012 1 IUD migration 03/04/2012 03/18/2013 Overview: In cervical canal causing severe cramping Carbuncle and furuncle of trunk 05/12/2008 03/12/2015 Decreased movements, a ffecting management of mother, antepartum 01/20/2008 05/12/2008 Adjustment disorder with depressed mood 02/03/20 07 09/15/2019 Acute gastritis without mention of hemorrhage 05/07/2015 Abdominal pain, epigastric 04/02/200503/12 Unspecified prophylactic or treatment measure 03/12/2015 documented as of this encounter (statuses as of 10/14/2021) [facility] Narrative* Problem Noted Date Resolved Date Hiatal hernia 11/09/2020 11/09/2020 Tobacco abuse 04/13/2012 07/22/2017 Breakthrough bleeding with IUD 03/04/2012 1 IUD migration 03/04/2012 03/18/2013 Overview: In cervical canal causing severe cramping Carbuncle and furuncle of trunk 05/12/2008 03/12/2015 Decreased movements, a ffecting management of mother, antepartum 01/20/2008 05/12/2008 Adjustment disorder with depressed mood 02/03/20 07 09/15/2019 Acute gastritis without mention of hemorrhage 05/07/2015 Abdominal pain, epigastric 04/02/200503/12 Unspecified prophylactic or treatment measure 03/12/2015 documented as of this encounter (statuses as of 10/15/2021) [facility] Narrative* Problem Noted Date Resolved Date Hiatal hernia 11/09/2020 11/09/2020 Tobacco abuse 04/13/2012 07/22/2017 Breakthrough bleeding with IUD 03/04/2012 1 IUD migration 03/04/2012 03/18/2013 Overview: In cervical canal causing severe cramping Carbuncle and furuncle of trunk 05/12/2008 03/12/2015 Decreased movements, a ffecting management of mother, antepartum 01/20/2008 05/12/2008 Adjustment disorder with depressed mood 02/03/20 07 09/15/2019 Acute gastritis without mention of hemorrhage 05/07/2015 Abdominal pain, epigastric 04/02/200503/12 Unspecified prophylactic or treatment measure 03/12/2015 documented as of this encounter (statuses as of 10/15/2021) [facility] Narrative* Problem Noted Date Resolved Date Hiatal hernia 11/09/2020 11/09/2020 Tobacco abuse 04/13/2012 07/22/2017 Breakthrough bleeding with IUD 03/04/2012 1 IUD migration 03/04/2012 03/18/2013 Overview: In cervical canal causing severe cramping Carbuncle and furuncle of trunk 05/12/2008 03/12/2015 Decreased movements, a ffecting management of mother, antepartum 01/20/2008 05/12/2008 Adjustment disorder with depressed mood 02/03/20 07 09/15/2019 Acute gastritis without mention of hemorrhage 05/07/2015 Abdominal pain, epigastric 04/02/200503/12 Unspecified prophylactic or treatment measure 03/12/2015 documented as of this encounter (statuses as of 10/24/2021) [facility] Narrative* Problem Noted Date Resolved Date Hiatal hernia 11/09/2020 11/09/2020 Tobacco abuse 04/13/2012 07/22/2017 Breakthrough bleeding with IUD 03/04/2012 1 IUD migration 03/04/2012 03/18/2013 Overview: In cervical canal causing severe cramping Carbuncle and furuncle of trunk 05/12/2008 03/12/2015 Decreased movements, a ffecting management of mother, antepartum 01/20/2008 05/12/2008 Adjustment disorder with depressed mood 02/03/20 07 09/15/2019 Acute gastritis without mention of hemorrhage 05/07/2015 Abdominal pain, epigastric 04/02/200503/12 Unspecified prophylactic or treatment measure 03/12/2015 documented as of this encounter (statuses as of 11/11/2021) [facility]arrative* Problem Noted Date Resolved Date Hiatal hernia 11/09/2020 11/09/2020 Tobacco abuse 04/13/2012 07/22/2017 Breakthrough bleeding with IUD 03/04/2012 1 IUD migration 03/04/2012 03/18/2013 Overview: In cervical canal causing severe cramping Carbuncle and furuncle of trunk 05/12/2008 03/12/2015 Decreased movements, a ffecting management of mother, antepartum 01/20/2008 05/12/2008 Adjustment disorder with depressed mood 02/03/20 07 09/15/2019 Acute gastritis without mention of hemorrhage 05/07/2015 Abdominal pain, epigastric 04/02/200503/12 Unspecified prophylactic or treatment measure 03/12/2015 documented as of this encounter (statuses as of 11/12/2021) [facility] Narrative* Problem Noted Date Resolved Date Hiatal hernia 11/09/2020 11/09/2020 Tobacco abuse 04/13/2012 07/22/2017 Breakthrough bleeding with IUD 03/04/2012 1 IUD migration 03/04/2012 03/18/2013 Overview: In cervical canal causing severe cramping Carbuncle and furuncle of trunk 05/12/2008 03/12/2015 Decreased movements, a ffecting management of mother, antepartum 01/20/2008 05/12/2008 Adjustment disorder with depressed mood 02/03/20 07 09/15/2019 Acute gastritis without mention of hemorrhage 05/07/2015 Abdominal pain, epigastric 04/02/200503/12 Unspecified prophylactic or treatment measure 03/12/2015 documented as of this encounter (statuses as of 11/15/2021) [facility] Narrative* Problem Noted Date Resolved Date Hiatal hernia 11/09/2020 11/09/2020 Tobacco abuse 04/13/2012 07/22/2017 Breakthrough bleeding with IUD 03/04/2012 1 IUD migration 03/04/2012 03/18/2013 Overview: In cervical canal causing severe cramping Carbuncle and furuncle of trunk 05/12/2008 03/12/2015 Decreased movements, a ffecting management of mother, antepartum 01/20/2008 05/12/2008 Adjustment disorder with depressed mood 02/03/20 07 09/15/2019 Acute gastritis without mention of hemorrhage 05/07/2015 Abdominal pain, epigastric 04/02/200503/12 Unspecified prophylactic or treatment measure 03/12/2015 documented as of this encounter (statuses as of 11/15/2021) [facility] Narrative* Problem Noted Date Resolved Date Hiatal hernia 11/09/2020 11/09/2020 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 Panic disorder without agoraphobia 06/09/2019 11/21/2021 Tobacco abuse 04/13/2012 07/22/2017 Breakthrough bleeding with IUD 03/04/2012 1 IUD migration 03/04/2012 03/18/2013 Overview: In cervical canal causing severe cramping Carbuncle and furuncle of trunk 05/12/2008 03/12/2015 Decreased movements, a ffecting management of mother, antepartum 01/20/2008 05/12/2008 Adjustment disorder with depressed mood 02/03/20 07 09/15/2019 Acute gastritis without mention of hemorrhage 05/07/2015 Abdominal pain, epigastric 04/02/200503/12 Unspecified prophylactic or treatment measure 03/12/2015 documented as of this encounter (statuses as of 11/21/2021) [facility] Narrative* Problem Noted Date Resolved Date Hiatal hernia 11/09/2020 11/09/2020 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 Panic disorder without agoraphobia 06/09/2019 11/21/2021 Tobacco abuse 04/13/2012 07/22/2017 Breakthrough bleeding with IUD 03/04/2012 1 IUD migration 03/04/2012 03/18/2013 Overview: In cervical canal causing severe cramping Carbuncle and furuncle of trunk 05/12/2008 03/12/2015 Decreased movements, a ffecting management of mother, antepartum 01/20/2008 05/12/2008 Adjustment disorder with depressed mood 02/03/20 07 09/15/2019 Acute gastritis without mention of hemorrhage 05/07/2015 Abdominal pain, epigastric 04/02/200503/12 Unspecified prophylactic or treatment measure 03/12/2015 documented as of this encounter (statuses as of 11/26/2021) [facility] Narrative* Problem Noted Date Resolved Date Hiatal hernia 11/09/2020 11/09/2020 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 Panic disorder without agoraphobia 06/09/2019 11/21/2021 Tobacco abuse 04/13/2012 07/22/2017 Breakthrough bleeding with IUD 03/04/2012 1 IUD migration 03/04/2012 03/18/2013 Overview: In cervical canal causing severe cramping Carbuncle and furuncle of trunk 05/12/2008 03/12/2015 Decreased movements, a ffecting management of mother, antepartum 01/20/2008 05/12/2008 Adjustment disorder with depressed mood 02/03/20 07 09/15/2019 Acute gastritis without mention of hemorrhage 05/07/2015 Abdominal pain, epigastric 04/02/200503/12 Unspecified prophylactic or treatment measure 03/12/2015 documented as of this encounter (statuses as of 12/17/2021) [facility] Narrative* Problem Noted Date Resolved Date Hiatal hernia 11/09/2020 11/09/2020 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 Panic disorder without agoraphobia 06/09/2019 11/21/2021 Tobacco abuse 04/13/2012 07/22/2017 Breakthrough bleeding with IUD 03/04/2012 1 IUD migration 03/04/2012 03/18/2013 Overview: In cervical canal causing severe cramping Carbuncle and furuncle of trunk 05/12/2008 03/12/2015 Decreased movements, a ffecting management of mother, antepartum 01/20/2008 05/12/2008 Adjustment disorder with depressed mood 02/03/20 07 09/15/2019 Acute gastritis without mention of hemorrhage 05/07/2015 Abdominal pain, epigastric 04/02/200503/12 Unspecified prophylactic or treatment measure 03/12/2015 documented as of this encounter (statuses as of 01/09/2022) [facility]arrative* Problem Noted Date Resolved Date Hiatal hernia 11/09/2020 11/09/2020 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 Panic disorder without agoraphobia 06/09/2019 11/21/2021 Tobacco abuse 04/13/2012 07/22/2017 Breakthrough bleeding with IUD 03/04/2012 1 IUD migration 03/04/2012 03/18/2013 Overview: In cervical canal causing severe cramping Carbuncle and furuncle of trunk 05/12/2008 03/12/2015 Decreased movements, a ffecting management of mother, antepartum 01/20/2008 05/12/2008 Adjustment disorder with depressed mood 02/03/20 07 09/15/2019 Acute gastritis without mention of hemorrhage 05/07/2015 Abdominal pain, epigastric 04/02/200503/12 Unspecified prophylactic or treatment measure 03/12/2015 documented as of this encounter (statuses as of 01/16/2022) [facility]arrative* Problem Noted Date Resolved Date Hiatal hernia 11/09/2020 11/09/2020 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 Panic disorder without agoraphobia 06/09/2019 11/21/2021 Tobacco abuse 04/13/2012 07/22/2017 Breakthrough bleeding with IUD 03/04/2012 1 IUD migration 03/04/2012 03/18/2013 Overview: In cervical canal causing severe cramping Carbuncle and furuncle of trunk 05/12/2008 03/12/2015 Decreased movements, a ffecting management of mother, antepartum 01/20/2008 05/12/2008 Adjustment disorder with depressed mood 02/03/20 07 09/15/2019 Acute gastritis without mention of hemorrhage 05/07/2015 Abdominal pain, epigastric 04/02/200503/12 Unspecified prophylactic or treatment measure 03/12/2015 documented as of this encounter (statuses as of 02/03/2022) [facility]arrative* Problem Noted Date Resolved Date Hiatal hernia 11/09/2020 11/09/2020 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 Panic disorder without agoraphobia 06/09/2019 11/21/2021 Tobacco abuse 04/13/2012 07/22/2017 Breakthrough bleeding with IUD 03/04/2012 1 IUD migration 03/04/2012 03/18/2013 Overview: In cervical canal causing severe cramping Carbuncle and furuncle of trunk 05/12/2008 03/12/2015 Decreased movements, a ffecting management of mother, antepartum 01/20/2008 05/12/2008 Adjustment disorder with depressed mood 02/03/20 07 09/15/2019 Acute gastritis without mention of hemorrhage 05/07/2015 Abdominal pain, epigastric 04/02/200503/12 Unspecified prophylactic or treatment measure 03/12/2015 documented as of this encounter (statuses as of 02/04/2022) [facility]arrative* Problem Noted Date Resolved Date Hiatal hernia 11/09/2020 11/09/2020 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 Panic disorder without agoraphobia 06/09/2019 11/21/2021 Tobacco abuse 04/13/2012 07/22/2017 Breakthrough bleeding with IUD 03/04/2012 1 IUD migration 03/04/2012 03/18/2013 Overview: In cervical canal causing severe cramping Carbuncle and furuncle of trunk 05/12/2008 03/12/2015 Decreased movements, a ffecting management of mother, antepartum 01/20/2008 05/12/2008 Adjustment disorder with depressed mood 02/03/20 07 09/15/2019 Acute gastritis without mention of hemorrhage 05/07/2015 Abdominal pain, epigastric 04/02/200503/12 Unspecified prophylactic or treatment measure 03/12/2015 documented as of this encounter (statuses as of 02/15/2022) [facility]ative* Problem Noted Date Resolved Date Hiatal hernia 11/09/2020 11/09/2020 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 Panic disorder without agoraphobia 06/09/2019 11/21/2021 Tobacco abuse 04/13/2012 07/22/2017 Breakthrough bleeding with IUD 03/04/2012 1 IUD migration 03/04/2012 03/18/2013 Overview: In cervical canal causing severe cramping Carbuncle and furuncle of trunk 05/12/2008 03/12/2015 Decreased movements, a ffecting management of mother, antepartum 01/20/2008 05/12/2008 Adjustment disorder with depressed mood 02/03/20 07 09/15/2019 Acute gastritis without mention of hemorrhage 05/07/2015 Abdominal pain, epigastric 04/02/200503/12 Unspecified prophylactic or treatment measure 03/12/2015 documented as of this encounter (statuses as of 02/18/2022) [facility]arrative* Problem Noted Date Resolved Date Hiatal hernia 11/09/2020 11/09/2020 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 Panic disorder without agoraphobia 06/09/2019 11/21/2021 Tobacco abuse 04/13/2012 07/22/2017 Breakthrough bleeding with IUD 03/04/2012 1 IUD migration 03/04/2012 03/18/2013 Overview: In cervical canal causing severe cramping Carbuncle and furuncle of trunk 05/12/2008 03/12/2015 Decreased movements, a ffecting management of mother, antepartum 01/20/2008 05/12/2008 Adjustment disorder with depressed mood 02/03/20 07 09/15/2019 Acute gastritis without mention of hemorrhage 05/07/2015 Abdominal pain, epigastric 04/02/200503/12 Unspecified prophylactic or treatment measure 03/12/2015 documented as of this encounter (statuses as of 02/20/2022) [facility]ative* Problem Noted Date Resolved Date Hiatal hernia 11/09/2020 11/09/2020 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 Panic disorder without agoraphobia 06/09/2019 11/21/2021 Tobacco abuse 04/13/2012 07/22/2017 Breakthrough bleeding with IUD 03/04/2012 1 IUD migration 03/04/2012 03/18/2013 Overview: In cervical canal causing severe cramping Carbuncle and furuncle of trunk 05/12/2008 03/12/2015 Decreased movements, a ffecting management of mother, antepartum 01/20/2008 05/12/2008 Adjustment disorder with depressed mood 02/03/20 07 09/15/2019 Acute gastritis without mention of hemorrhage 05/07/2015 Abdominal pain, epigastric 04/02/200503/12 Unspecified prophylactic or treatment measure 03/12/2015 documented as of this encounter (statuses as of 02/20/2022) [facility]* Problem Noted Date Resolved Date Hiatal hernia 11/09/2020 11/09/2020 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 Panic disorder without agoraphobia 06/09/2019 11/21/2021 Tobacco abuse 04/13/2012 07/22/2017 Breakthrough bleeding with IUD 03/04/2012 1 IUD migration 03/04/2012 03/18/2013 Overview: In cervical canal causing severe cramping Carbuncle and furuncle of trunk 05/12/2008 03/12/2015 Decreased movements, a ffecting management of mother, antepartum 01/20/2008 05/12/2008 Adjustment disorder with depressed mood 02/03/20 07 09/15/2019 Acute gastritis without mention of hemorrhage 05/07/2015 Abdominal pain, epigastric 04/02/200503/12 Unspecified prophylactic or treatment measure 03/12/2015 documented as of this encounter (statuses as of 03/03/2022) [facility]* Problem Noted Date Resolved Date Hiatal hernia 11/09/2020 11/09/2020 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 Panic disorder without agoraphobia 06/09/2019 11/21/2021 Tobacco abuse 04/13/2012 07/22/2017 Breakthrough bleeding with IUD 03/04/2012 1 IUD migration 03/04/2012 03/18/2013 Overview: In cervical canal causing severe cramping Carbuncle and furuncle of trunk 05/12/2008 03/12/2015 Decreased movements, a ffecting management of mother, antepartum 01/20/2008 05/12/2008 Adjustment disorder with depressed mood 02/03/20 07 09/15/2019 Acute gastritis without mention of hemorrhage 05/07/2015 Abdominal pain, epigastric 04/02/200503/12 Unspecified prophylactic or treatment measure 03/12/2015 documented as of this encounter (statuses as of 03/04/2022) [facility]* Problem Noted Date Resolved Date Hiatal hernia 11/09/2020 11/09/2020 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 Panic disorder without agoraphobia 06/09/2019 11/21/2021 Tobacco abuse 04/13/2012 07/22/2017 Breakthrough bleeding with IUD 03/04/2012 1 IUD migration 03/04/2012 03/18/2013 Overview: In cervical canal causing severe cramping Carbuncle and furuncle of trunk 05/12/2008 03/12/2015 Decreased movements, a ffecting management of mother, antepartum 01/20/2008 05/12/2008 Adjustment disorder with depressed mood 02/03/20 07 09/15/2019 Acute gastritis without mention of hemorrhage 05/07/2015 Abdominal pain, epigastric 04/02/200503/12 Unspecified prophylactic or treatment measure 03/12/2015 documented as of this encounter (statuses as of 04/23/2022) [facility]arrative* Problem Noted Date Resolved Date Hiatal hernia 11/09/2020 11/09/2020 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 Panic disorder without agoraphobia 06/09/2019 11/21/2021 Tobacco abuse 04/13/2012 07/22/2017 Breakthrough bleeding with IUD 03/04/2012 1 IUD migration 03/04/2012 03/18/2013 Overview: In cervical canal causing severe cramping Carbuncle and furuncle of trunk 05/12/2008 03/12/2015 Decreased movements, a ffecting management of mother, antepartum 01/20/2008 05/12/2008 Adjustment disorder with depressed mood 02/03/20 07 09/15/2019 Acute gastritis without mention of hemorrhage 05/07/2015 Abdominal pain, epigastric 04/02/200503/12 Unspecified prophylactic or treatment measure 03/12/2015 documented as of this encounter (statuses as of 07/01/2022) [facility]* Problem Noted Date Resolved Date Hiatal hernia 11/09/2020 11/09/2020 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 Panic disorder without agoraphobia 06/09/2019 11/21/2021 Tobacco abuse 04/13/2012 07/22/2017 Breakthrough bleeding with IUD 03/04/2012 1 IUD migration 03/04/2012 03/18/2013 Overview: In cervical canal causing severe cramping Carbuncle and furuncle of trunk 05/12/2008 03/12/2015 Decreased movements, a ffecting management of mother, antepartum 01/20/2008 05/12/2008 Adjustment disorder with depressed mood 02/03/20 07 09/15/2019 Acute gastritis without mention of hemorrhage 05/07/2015 Abdominal pain, epigastric 04/02/200503/12 Unspecified prophylactic or treatment measure 03/12/2015 documented as of this encounter (statuses as of 08/01/2022) [facility] History of Past illness Narrative* Problem Noted Date Resolved Date Hiatal hernia 11/09/2020 11/09/2020 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 Panic disorder without agoraphobia 06/09/2019 11/21/2021 Tobacco abuse 04/13/2012 07/22/2017 Breakthrough bleeding with IUD 03/04/2012 1 IUD migration 03/04/2012 03/18/2013 Overview: In cervical canal causing severe cramping Carbuncle and furuncle of trunk 05/12/2008 03/12/2015 Decreased movements, a ffecting management of mother, antepartum 01/20/2008 05/12/2008 Adjustment disorder with depressed mood 02/03/20 07 09/15/2019 Acute gastritis without mention of hemorrhage 05/07/2015 Abdominal pain, epigastric 04/02/200503/12 Unspecified prophylactic or treatment measure 03/12/2015 documented as of this encounter (statuses as of 08/16/2022) [facility] History of Past illness Narrative* Problem Noted Date Resolved Date Hiatal hernia 11/09/2020 11/09/2020 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 Panic disorder without agoraphobia 06/09/2019 11/21/2021 Tobacco abuse 04/13/2012 07/22/2017 Breakthrough bleeding with IUD 03/04/2012 1 IUD migration 03/04/2012 03/18/2013 Overview: In cervical canal causing severe cramping Carbuncle and furuncle of trunk 05/12/2008 03/12/2015 Decreased movements, a ffecting management of mother, antepartum 01/20/2008 05/12/2008 Adjustment disorder with depressed mood 02/03/20 07 09/15/2019 Acute gastritis without mention of hemorrhage 05/07/2015 Abdominal pain, epigastric 04/02/200503/12 Unspecified prophylactic or treatment measure 03/12/2015 documented as of this encounter (statuses as of 09/03/2022) [facility] History of Past illness Narrative* Problem Noted Date Resolved Date Hiatal hernia 11/09/2020 11/09/2020 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 Panic disorder without agoraphobia 06/09/2019 11/21/2021 Tobacco abuse 04/13/2012 07/22/2017 Breakthrough bleeding with IUD 03/04/2012 1 IUD migration 03/04/2012 03/18/2013 Overview: In cervical canal causing severe cramping Carbuncle and furuncle of trunk 05/12/2008 03/12/2015 Decreased movements, a ffecting management of mother, antepartum 01/20/2008 05/12/2008 Adjustment disorder with depressed mood 02/03/20 07 09/15/2019 Acute gastritis without mention of hemorrhage 05/07/2015 Abdominal pain, epigastric 04/02/200503/12 Unspecified prophylactic or treatment measure 03/12/2015 documented as of this encounter (statuses as of 09/12/2022) [facility] History of Past illness Narrative* Problem Noted Date Resolved Date Hiatal hernia 11/09/2020 11/09/2020 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 Panic disorder without agoraphobia 06/09/2019 11/21/2021 Tobacco abuse 04/13/2012 07/22/2017 Breakthrough bleeding with IUD 03/04/2012 1 IUD migration 03/04/2012 03/18/2013 Overview: In cervical canal causing severe cramping Carbuncle and furuncle of trunk 05/12/2008 03/12/2015 Decreased movements, a ffecting management of mother, antepartum 01/20/2008 05/12/2008 Adjustment disorder with depressed mood 02/03/20 07 09/15/2019 Acute gastritis without mention of hemorrhage 05/07/2015 Abdominal pain, epigastric 04/02/200503/12 Unspecified prophylactic or treatment measure 03/12/2015 documented as of this encounter (statuses as of 09/18/2022) [facility] History of Past illness Narrative* Problem Noted Date Resolved Date Hiatal hernia 11/09/2020 11/09/2020 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 Panic disorder without agoraphobia 06/09/2019 11/21/2021 Tobacco abuse 04/13/2012 07/22/2017 Breakthrough bleeding with IUD 03/04/2012 1 IUD migration 03/04/2012 03/18/2013 Overview: In cervical canal causing severe cramping Carbuncle and furuncle of trunk 05/12/2008 03/12/2015 Decreased movements, a ffecting management of mother, antepartum 01/20/2008 05/12/2008 Adjustment disorder with depressed mood 02/03/20 07 09/15/2019 Acute gastritis without mention of hemorrhage 05/07/2015 Abdominal pain, epigastric 04/02/200503/12 Unspecified prophylactic or treatment measure 03/12/2015 documented as of this encounter (statuses as of 09/19/2022) [facility] History of Past illness Narrative* Problem Noted Date Resolved Date Hiatal hernia 11/09/2020 11/09/2020 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 Panic disorder without agoraphobia 06/09/2019 11/21/2021 Tobacco abuse 04/13/2012 07/22/2017 Breakthrough bleeding with IUD 03/04/2012 1 IUD migration 03/04/2012 03/18/2013 Overview: In cervical canal causing severe cramping Carbuncle and furuncle of trunk 05/12/2008 03/12/2015 Decreased movements, a ffecting management of mother, antepartum 01/20/2008 05/12/2008 Adjustment disorder with depressed mood 02/03/20 07 09/15/2019 Acute gastritis without mention of hemorrhage 05/07/2015 Abdominal pain, epigastric 04/02/200503/12 Unspecified prophylactic or treatment measure 03/12/2015 documented as of this encounter (statuses as of 10/01/2022) [facility] History of Past illness Narrative* Problem Noted Date Resolved Date Hiatal hernia 11/09/2020 11/09/2020 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 Panic disorder without agoraphobia 06/09/2019 11/21/2021 Tobacco abuse 04/13/2012 07/22/2017 Breakthrough bleeding with IUD 03/04/2012 1 IUD migration 03/04/2012 03/18/2013 Overview: In cervical canal causing severe cramping Carbuncle and furuncle of trunk 05/12/2008 03/12/2015 Decreased movements, a ffecting management of mother, antepartum 01/20/2008 05/12/2008 Adjustment disorder with depressed mood 02/03/20 07 09/15/2019 Acute gastritis without mention of hemorrhage 05/07/2015 Abdominal pain, epigastric 04/02/200503/12 Unspecified prophylactic or treatment measure 03/12/2015 documented as of this encounter (statuses as of 10/03/2022) [facility] History of Past illness Narrative* Problem Noted Date Resolved Date Hiatal hernia 11/09/2020 11/09/2020 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 Panic disorder without agoraphobia 06/09/2019 11/21/2021 Tobacco abuse 04/13/2012 07/22/2017 Breakthrough bleeding with IUD 03/04/2012 1 IUD migration 03/04/2012 03/18/2013 Overview: In cervical canal causing severe cramping Carbuncle and furuncle of trunk 05/12/2008 03/12/2015 Decreased movements, a ffecting management of mother, antepartum 01/20/2008 05/12/2008 Adjustment disorder with depressed mood 02/03/20 07 09/15/2019 Acute gastritis without mention of hemorrhage 05/07/2015 Abdominal pain, epigastric 04/02/200503/12 Unspecified prophylactic or treatment measure 03/12/2015 documented as of this encounter (statuses as of 11/17/2022) [facility] History of Past illness Narrative* Problem Noted Date Resolved Date Hiatal hernia 11/09/2020 11/09/2020 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 Panic disorder without agoraphobia 06/09/2019 11/21/2021 Tobacco abuse 04/13/2012 07/22/2017 Breakthrough bleeding with IUD 03/04/2012 1 IUD migration 03/04/2012 03/18/2013 Overview: In cervical canal causing severe cramping Carbuncle and furuncle of trunk 05/12/2008 03/12/2015 Decreased movements, a ffecting management of mother, antepartum 01/20/2008 05/12/2008 Adjustment disorder with depressed mood 02/03/20 07 09/15/2019 Acute gastritis without mention of hemorrhage 05/07/2015 Abdominal pain, epigastric 04/02/200503/12 Unspecified prophylactic or treatment measure 03/12/2015 documented as of this encounter (statuses as of 11/21/2022) [facility] History of Past illness Narrative* Problem Noted Date Resolved Date Hiatal hernia 11/09/2020 11/09/2020 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 Panic disorder without agoraphobia 06/09/2019 11/21/2021 Tobacco abuse 04/13/2012 07/22/2017 Breakthrough bleeding with IUD 03/04/2012 1 IUD migration 03/04/2012 03/18/2013 Overview: In cervical canal causing severe cramping Carbuncle and furuncle of trunk 05/12/2008 03/12/2015 Decreased movements, a ffecting management of mother, antepartum 01/20/2008 05/12/2008 Adjustment disorder with depressed mood 02/03/20 07 09/15/2019 Acute gastritis without mention of hemorrhage 05/07/2015 Abdominal pain, epigastric 04/02/200503/12 Unspecified prophylactic or treatment measure 03/12/2015 documented as of this encounter (statuses as of 11/21/2022) [facility] History of Past illness Narrative* Problem Noted Date Resolved Date Hiatal hernia 11/09/2020 11/09/2020 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 Panic disorder without agoraphobia 06/09/2019 11/21/2021 Tobacco abuse 04/13/2012 07/22/2017 Breakthrough bleeding with IUD 03/04/2012 1 IUD migration 03/04/2012 03/18/2013 Overview: In cervical canal causing severe cramping Carbuncle and furuncle of trunk 05/12/2008 03/12/2015 Decreased movements, a ffecting management of mother, antepartum 01/20/2008 05/12/2008 Adjustment disorder with depressed mood 02/03/20 07 09/15/2019 Acute gastritis without mention of hemorrhage 05/07/2015 Abdominal pain, epigastric 04/02/200503/12 Unspecified prophylactic or treatment measure 03/12/2015 documented as of this encounter (statuses as of 11/24/2022) [facility] History of Past illness Narrative* Problem Noted Date Diagnosed Date Resolved Date Hiatal hernia 11/09/2020 11/09/2020 Recurrent major depression r esistant to treatment 06/09/2019 11/21/2021 Last Assessment & Plan: Assessment: Stable, on Abilify, Lamictal, Effexor, and Klonopin PRN. Panic disorder without agoraphobia 06/09/2019 11/21/2021 Tobacco abuse 04/13/2012 07/22/2017 Breakthrough bleeding with IUD 03/04/2012 03/18/2013 IUD migration 03/04/2012 03/18/2013 Overview: In cervical canal causing severe cramping Carbuncle and furuncle of trunk 05/12/2008 03/12/2015 Decreased movements, a ffecting management of mother, antepartum 01/20/2008 008 Adjustment disorder with depressed mood 02/02/2007 09/15/2019 Acute gastritis without mention of hemorrhage 04/11/20 05 05/07/2015 Abdominal pain, epigastric 04/02/2005 1 Unspecified prophylactic or treatment measure 03/12/2015 documented as of this encounter (statuses as of 12/09/2022) [facility] History of Past illness Narrative* Problem Noted Date Diagnosed Date Resolved Date Hiatal hernia 11/09/2020 11/09/2020 Recurrent major depression r esistant to treatment 06/09/2019 11/21/2021 Last Assessment & Plan: Assessment: Stable, on Abilify, Lamictal, Effexor, and Klonopin PRN. Panic disorder without agoraphobia 06/09/2019 11/21/2021 Tobacco abuse 04/13/2012 07/22/2017 Breakthrough bleeding with IUD 03/04/2012 03/18/2013 IUD migration 03/04/2012 03/18/2013 Overview: In cervical canal causing severe cramping Carbuncle and furuncle of trunk 05/12/2008 03/12/2015 Decreased movements, a ffecting management of mother, antepartum 01/20/2008 008 Adjustment disorder with depressed mood 02/02/2007 09/15/2019 Acute gastritis without mention of hemorrhage 04/11/20 05 05/07/2015 Abdominal pain, epigastric 04/02/2005 1 Unspecified prophylactic or treatment measure 03/12/2015 documented as of this encounter (statuses as of 12/23/2022) [facility] History of Past illness Narrative* Problem Noted Date Diagnosed Date Resolved Date Hiatal hernia 11/09/2020 11/09/2020 Recurrent major depression r esistant to treatment 06/09/2019 11/21/2021 Last Assessment & Plan: Assessment: Stable, on Abilify, Lamictal, Effexor, and Klonopin PRN. Panic disorder without agoraphobia 06/09/2019 11/21/2021 Tobacco abuse 04/13/2012 07/22/2017 Breakthrough bleeding with IUD 03/04/2012 03/18/2013 IUD migration 03/04/2012 03/18/2013 Overview: In cervical canal causing severe cramping Carbuncle and furuncle of trunk 05/12/2008 03/12/2015 Decreased movements, a ffecting management of mother, antepartum 01/20/2008 008 Adjustment disorder with depressed mood 02/02/2007 09/15/2019 Acute gastritis without mention of hemorrhage 04/11/20 05 05/07/2015 Abdominal pain, epigastric 04/02/2005 1 Unspecified prophylactic or treatment measure 03/12/2015 documented as of this encounter (statuses as of 12/31/2022) [facility] History of Past illness Narrative* Problem Noted Date Diagnosed Date Resolved Date Hiatal hernia 11/09/2020 11/09/2020 Recurrent major depression r esistant to treatment 06/09/2019 11/21/2021 Last Assessment & Plan: Assessment: Stable, on Abilify, Lamictal, Effexor, and Klonopin PRN. Panic disorder without agoraphobia 06/09/2019 11/21/2021 Tobacco abuse 04/13/2012 07/22/2017 Breakthrough bleeding with IUD 03/04/2012 03/18/2013 IUD migration 03/04/2012 03/18/2013 Overview: In cervical canal causing severe cramping Carbuncle and furuncle of trunk 05/12/2008 03/12/2015 Decreased movements, a ffecting management of mother, antepartum 01/20/2008 008 Adjustment disorder with depressed mood 02/02/2007 09/15/2019 Acute gastritis without mention of hemorrhage 04/11/20 05 05/07/2015 Abdominal pain, epigastric 04/02/2005 1 Unspecified prophylactic or treatment measure 03/12/2015 documented as of this encounter (statuses as of 01/16/2023) [facility] History of Past illness Narrative* Problem Noted Date Diagnosed Date Resolved Date Hiatal hernia 11/09/2020 11/09/2020 Recurrent major depression r esistant to treatment 06/09/2019 11/21/2021 Last Assessment & Plan: Assessment: Stable, on Abilify, Lamictal, Effexor, and Klonopin PRN. Panic disorder without agoraphobia 06/09/2019 11/21/2021 Tobacco abuse 04/13/2012 07/22/2017 Breakthrough bleeding with IUD 03/04/2012 03/18/2013 IUD migration 03/04/2012 03/18/2013 Overview: In cervical canal causing severe cramping Carbuncle and furuncle of trunk 05/12/2008 03/12/2015 Decreased movements, a ffecting management of mother, antepartum 01/20/2008 008 Adjustment disorder with depressed mood 02/02/2007 09/15/2019 Acute gastritis without mention of hemorrhage 04/11/20 05 05/07/2015 Abdominal pain, epigastric 04/02/2005 1 Unspecified prophylactic or treatment measure 03/12/2015 documented as of this encounter (statuses as of 02/05/2023) [facility] History of Past illness Narrative* Problem Noted Date Diagnosed Date Resolved Date Hiatal hernia 11/09/2020 11/09/2020 Recurrent major depression r esistant to treatment 06/09/2019 11/21/2021 Last Assessment & Plan: Assessment: Stable, on Abilify, Lamictal, Effexor, and Klonopin PRN. Panic disorder without agoraphobia 06/09/2019 11/21/2021 Tobacco abuse 04/13/2012 07/22/2017 Breakthrough bleeding with IUD 03/04/2012 03/18/2013 IUD migration 03/04/2012 03/18/2013 Overview: In cervical canal causing severe cramping Carbuncle and furuncle of trunk 05/12/2008 03/12/2015 Decreased movements, a ffecting management of mother, antepartum 01/20/2008 008 Adjustment disorder with depressed mood 02/02/2007 09/15/2019 Acute gastritis without mention of hemorrhage 04/11/20 05 05/07/2015 Abdominal pain, epigastric 04/02/2005 1 Unspecified prophylactic or treatment measure 03/12/2015 documented as of this encounter (statuses as of 02/20/2023) [facility] of Past illness Narrative* Problem Noted Date Diagnosed Date Resolved Date Hiatal hernia 11/09/2020 11/09/2020 Recurrent major depression r esistant to treatment 06/09/2019 11/21/2021 Last Assessment & Plan: Assessment: Stable, on Abilify, Lamictal, Effexor, and Klonopin PRN. Panic disorder without agoraphobia 06/09/2019 11/21/2021 Tobacco abuse 04/13/2012 07/22/2017 Breakthrough bleeding with IUD 03/04/2012 03/18/2013 IUD migration 03/04/2012 03/18/2013 Overview: In cervical canal causing severe cramping Carbuncle and furuncle of trunk 05/12/2008 03/12/2015 Decreased movements, a ffecting management of mother, antepartum 01/20/2008 008 Adjustment disorder with depressed mood 02/02/2007 09/15/2019 Acute gastritis without mention of hemorrhage 04/11/20 05 05/07/2015 Abdominal pain, epigastric 04/02/2005 1 Unspecified prophylactic or treatment measure 03/12/2015 documented as of this encounter (statuses as of 03/13/2023) [facility] of Past illness Narrative* Problem Noted Date Diagnosed Date Resolved Date Hiatal hernia 11/09/2020 11/09/2020 Recurrent major depression r esistant to treatment 06/09/2019 11/21/2021 Last Assessment & Plan: Assessment: Stable, on Abilify, Lamictal, Effexor, and Klonopin PRN. Panic disorder without agoraphobia 06/09/2019 11/21/2021 Tobacco abuse 04/13/2012 07/22/2017 Breakthrough bleeding with IUD 03/04/2012 03/18/2013 IUD migration 03/04/2012 03/18/2013 Overview: In cervical canal causing severe cramping Carbuncle and furuncle of trunk 05/12/2008 03/12/2015 Decreased movements, a ffecting management of mother, antepartum 01/20/2008 008 Adjustment disorder with depressed mood 02/02/2007 09/15/2019 Acute gastritis without mention of hemorrhage 04/11/20 05 05/07/2015 Abdominal pain, epigastric 04/02/2005 1 Unspecified prophylactic or treatment measure 03/12/2015 documented as of this encounter (statuses as of 03/24/2023) [facility] of Past illness Narrative* Problem Noted Date Diagnosed Date Resolved Date Hiatal hernia 11/09/2020 11/09/2020 Recurrent major depression r esistant to treatment 06/09/2019 11/21/2021 Last Assessment & Plan: Assessment: Stable, on Abilify, Lamictal, Effexor, and Klonopin PRN. Panic disorder without agoraphobia 06/09/2019 11/21/2021 Tobacco abuse 04/13/2012 07/22/2017 Breakthrough bleeding with IUD 03/04/2012 03/18/2013 IUD migration 03/04/2012 03/18/2013 Overview: In cervical canal causing severe cramping Carbuncle and furuncle of trunk 05/12/2008 03/12/2015 Decreased movements, a ffecting management of mother, antepartum 01/20/2008 008 Adjustment disorder with depressed mood 02/02/2007 09/15/2019 Acute gastritis without mention of hemorrhage 04/11/20 05 05/07/2015 Abdominal pain, epigastric 04/02/2005 1 Unspecified prophylactic or treatment measure 03/12/2015 documented as of this encounter (statuses as of 03/29/2023) [facility] of Past illness Narrative* Problem Noted Date Diagnosed Date Resolved Date Hiatal hernia 11/09/2020 11/09/2020 Recurrent major depression r esistant to treatment 06/09/2019 11/21/2021 Last Assessment & Plan: Assessment: Stable, on Abilify, Lamictal, Effexor, and Klonopin PRN. Panic disorder without agoraphobia 06/09/2019 11/21/2021 Tobacco abuse 04/13/2012 07/22/2017 Breakthrough bleeding with IUD 03/04/2012 03/18/2013 IUD migration 03/04/2012 03/18/2013 Overview: In cervical canal causing severe cramping Carbuncle and furuncle of trunk 05/12/2008 03/12/2015 Decreased movements, a ffecting management of mother, antepartum 01/20/2008 008 Adjustment disorder with depressed mood 02/02/2007 09/15/2019 Acute gastritis without mention of hemorrhage 04/11/20 05 05/07/2015 Abdominal pain, epigastric 04/02/2005 1 Unspecified prophylactic or treatment measure 03/12/2015 documented as of this encounter (statuses as of 04/14/2023) [facility] of Past illness Narrative* Problem Noted Date Diagnosed Date Resolved Date Hiatal hernia 11/09/2020 11/09/2020 Recurrent major depression r esistant to treatment 06/09/2019 11/21/2021 Last Assessment & Plan: Assessment: Stable, on Abilify, Lamictal, Effexor, and Klonopin PRN. Panic disorder without agoraphobia 06/09/2019 11/21/2021 Tobacco abuse 04/13/2012 07/22/2017 Breakthrough bleeding with IUD 03/04/2012 03/18/2013 IUD migration 03/04/2012 03/18/2013 Overview: In cervical canal causing severe cramping Carbuncle and furuncle of trunk 05/12/2008 03/12/2015 Decreased movements, a ffecting management of mother, antepartum 01/20/2008 008 Adjustment disorder with depressed mood 02/02/2007 09/15/2019 Acute gastritis without mention of hemorrhage 04/11/20 05 05/07/2015 Abdominal pain, epigastric 04/02/2005 1 Unspecified prophylactic or treatment measure 03/12/2015 documented as of this encounter (statuses as of 04/27/2023) [facility] of Past illness Narrative* Problem Noted Date Diagnosed Date Resolved Date Hiatal hernia 11/09/2020 11/09/2020 Recurrent major depression r esistant to treatment 06/09/2019 11/21/2021 Last Assessment & Plan: Assessment: Stable, on Abilify, Lamictal, Effexor, and Klonopin PRN. Panic disorder without agoraphobia 06/09/2019 11/21/2021 Tobacco abuse 04/13/2012 07/22/2017 Breakthrough bleeding with IUD 03/04/2012 03/18/2013 IUD migration 03/04/2012 03/18/2013 Overview: In cervical canal causing severe cramping Carbuncle and furuncle of trunk 05/12/2008 03/12/2015 Decreased movements, a ffecting management of mother, antepartum 01/20/2008 008 Adjustment disorder with depressed mood 02/02/2007 09/15/2019 Acute gastritis without mention of hemorrhage 04/11/20 05 05/07/2015 Abdominal pain, epigastric 04/02/2005 1 Unspecified prophylactic or treatment measure 03/12/2015 documented as of this encounter (statuses as of 04/29/2023) [facility] Past illness Narrative* Problem Noted Date Diagnosed Date Resolved Date Hiatal hernia 11/09/2020 11/09/2020 Recurrent major depression r esistant to treatment 06/09/2019 11/21/2021 Last Assessment & Plan: Assessment: Stable, on Abilify, Lamictal, Effexor, and Klonopin PRN. Panic disorder without agoraphobia 06/09/2019 11/21/2021 Tobacco abuse 04/13/2012 07/22/2017 Breakthrough bleeding with IUD 03/04/2012 03/18/2013 IUD migration 03/04/2012 03/18/2013 Overview: In cervical canal causing severe cramping Carbuncle and furuncle of trunk 05/12/2008 03/12/2015 Decreased movements, a ffecting management of mother, antepartum 01/20/2008 008 Adjustment disorder with depressed mood 02/02/2007 09/15/2019 Acute gastritis without mention of hemorrhage 04/11/20 05 05/07/2015 Abdominal pain, epigastric 04/02/2005 1 Unspecified prophylactic or treatment measure 03/12/2015 documented as of this encounter (statuses as of 04/29/2023) [facility] Past illness Narrative* Problem Noted Date Diagnosed Date Resolved Date Hiatal hernia 11/09/2020 11/09/2020 Recurrent major depression r esistant to treatment 06/09/2019 11/21/2021 Last Assessment & Plan: Assessment: Stable, on Abilify, Lamictal, Effexor, and Klonopin PRN. Panic disorder without agoraphobia 06/09/2019 11/21/2021 Tobacco abuse 04/13/2012 07/22/2017 Breakthrough bleeding with IUD 03/04/2012 03/18/2013 IUD migration 03/04/2012 03/18/2013 Overview: In cervical canal causing severe cramping Carbuncle and furuncle of trunk 05/12/2008 03/12/2015 Decreased movements, a ffecting management of mother, antepartum 01/20/2008 008 Adjustment disorder with depressed mood 02/02/2007 09/15/2019 Acute gastritis without mention of hemorrhage 04/11/20 05 05/07/2015 Abdominal pain, epigastric 04/02/2005 1 Unspecified prophylactic or treatment measure 03/12/2015 documented as of this encounter (statuses as of 07/16/2023) [facility] History of Past illness Narrative* Problem Noted Date Diagnosed Date Resolved Date Hiatal hernia 11/09/2020 11/09/2020 Recurrent major depression r esistant to treatment 06/09/2019 11/21/2021 Last Assessment & Plan: Assessment: Stable, on Abilify, Lamictal, Effexor, and Klonopin PRN. Panic disorder without agoraphobia 06/09/2019 11/21/2021 Tobacco abuse 04/13/2012 07/22/2017 Breakthrough bleeding with IUD 03/04/2012 03/18/2013 IUD migration 03/04/2012 03/18/2013 Overview: In cervical canal causing severe cramping Carbuncle and furuncle of trunk 05/12/2008 03/12/2015 Decreased movements, a ffecting management of mother, antepartum 01/20/2008 008 Adjustment disorder with depressed mood 02/02/2007 09/15/2019 Acute gastritis without mention of hemorrhage 04/11/20 05 05/07/2015 Abdominal pain, epigastric 04/02/2005 1 Unspecified prophylactic or treatment measure 03/12/2015 documented as of this encounter (statuses as of 07/31/2023) [facility] History of Past illness Narrative* Problem Noted Date Diagnosed Date Resolved Date Hiatal hernia 11/09/2020 11/09/2020 Recurrent major depression r esistant to treatment 06/09/2019 11/21/2021 Last Assessment & Plan: Assessment: Stable, on Abilify, Lamictal, Effexor, and Klonopin PRN. Panic disorder without agoraphobia 06/09/2019 11/21/2021 Tobacco abuse 04/13/2012 07/22/2017 Breakthrough bleeding with IUD 03/04/2012 03/18/2013 IUD migration 03/04/2012 03/18/2013 Overview: In cervical canal causing severe cramping Carbuncle and furuncle of trunk 05/12/2008 03/12/2015 Decreased movements, a ffecting management of mother, antepartum 01/20/2008 008 Adjustment disorder with depressed mood 02/02/2007 09/15/2019 Acute gastritis without mention of hemorrhage 04/11/20 05 05/07/2015 Abdominal pain, epigastric 04/02/2005 1 Unspecified prophylactic or treatment measure 03/12/2015 documented as of this encounter (statuses as of 08/03/2023) [facility] History of Past illness Narrative* Problem Noted Date Diagnosed Date Resolved Date Hiatal hernia 11/09/2020 11/09/2020 Recurrent major depression r esistant to treatment 06/09/2019 11/21/2021 Last Assessment & Plan: Assessment: Stable, on Abilify, Lamictal, Effexor, and Klonopin PRN. Panic disorder without agoraphobia 06/09/2019 11/21/2021 Tobacco abuse 04/13/2012 07/22/2017 Breakthrough bleeding with IUD 03/04/2012 03/18/2013 IUD migration 03/04/2012 03/18/2013 Overview: In cervical canal causing severe cramping Carbuncle and furuncle of trunk 05/12/2008 03/12/2015 Decreased movements, a ffecting management of mother, antepartum 01/20/2008 008 Adjustment disorder with depressed mood 02/02/2007 09/15/2019 Acute gastritis without mention of hemorrhage 04/11/20 05 05/07/2015 Abdominal pain, epigastric 04/02/2005 1 Unspecified prophylactic or treatment measure 03/12/2015 documented as of this encounter (statuses as of 08/06/2023) [facility] History of Past illness Narrative* Problem Noted Date Diagnosed Date Resolved Date Hiatal hernia 11/09/2020 11/09/2020 Recurrent major depression r esistant to treatment 06/09/2019 11/21/2021 Last Assessment & Plan: Assessment: Stable, on Abilify, Lamictal, Effexor, and Klonopin PRN. Panic disorder without agoraphobia 06/09/2019 11/21/2021 Tobacco abuse 04/13/2012 07/22/2017 Breakthrough bleeding with IUD 03/04/2012 03/18/2013 IUD migration 03/04/2012 03/18/2013 Overview: In cervical canal causing severe cramping Carbuncle and furuncle of trunk 05/12/2008 03/12/2015 Decreased movements, a ffecting management of mother, antepartum 01/20/2008 008 Adjustment disorder with depressed mood 02/02/2007 09/15/2019 Acute gastritis without mention of hemorrhage 04/11/20 05 05/07/2015 Abdominal pain, epigastric 04/02/2005 1 Unspecified prophylactic or treatment measure 03/12/2015 documented as of this encounter (statuses as of 08/07/2023) [facility] History of Past illness Narrative* Problem Noted Date Diagnosed Date Resolved Date Hiatal hernia 11/09/2020 11/09/2020 Recurrent major depression r esistant to treatment 06/09/2019 11/21/2021 Last Assessment & Plan: Assessment: Stable, on Abilify, Lamictal, Effexor, and Klonopin PRN. Panic disorder without agoraphobia 06/09/2019 11/21/2021 Tobacco abuse 04/13/2012 07/22/2017 Breakthrough bleeding with IUD 03/04/2012 03/18/2013 IUD migration 03/04/2012 03/18/2013 Overview: In cervical canal causing severe cramping Carbuncle and furuncle of trunk 05/12/2008 03/12/2015 Decreased movements, a ffecting management of mother, antepartum 01/20/2008 008 Adjustment disorder with depressed mood 02/02/2007 09/15/2019 Acute gastritis without mention of hemorrhage 04/11/20 05 05/07/2015 Abdominal pain, epigastric 04/02/2005 1 Unspecified prophylactic or treatment measure 03/12/2015 documented as of this encounter (statuses as of 08/14/2023) [facility] History of Past illness Narrative* Problem Noted Date Diagnosed Date Resolved Date Hiatal hernia 11/09/2020 11/09/2020 Recurrent major depression r esistant to treatment 06/09/2019 11/21/2021 Last Assessment & Plan: Assessment: Stable, on Abilify, Lamictal, Effexor, and Klonopin PRN. Panic disorder without agoraphobia 06/09/2019 11/21/2021 Tobacco abuse 04/13/2012 07/22/2017 Breakthrough bleeding with IUD 03/04/2012 03/18/2013 IUD migration 03/04/2012 03/18/2013 Overview: In cervical canal causing severe cramping Carbuncle and furuncle of trunk 05/12/2008 03/12/2015 Decreased movements, a ffecting management of mother, antepartum 01/20/2008 008 Adjustment disorder with depressed mood 02/02/2007 09/15/2019 Acute gastritis without mention of hemorrhage 04/11/20 05 05/07/2015 Abdominal pain, epigastric 04/02/2005 1 Unspecified prophylactic or treatment measure 03/12/2015 documented as of this encounter (statuses as of 08/17/2023) [facility] History of Past illness Narrative* Problem Noted Date Diagnosed Date Resolved Date Hiatal hernia 11/09/2020 11/09/2020 Recurrent major depression r esistant to treatment 06/09/2019 11/21/2021 Last Assessment & Plan: Assessment: Stable, on Abilify, Lamictal, Effexor, and Klonopin PRN. Panic disorder without agoraphobia 06/09/2019 11/21/2021 Tobacco abuse 04/13/2012 07/22/2017 Breakthrough bleeding with IUD 03/04/2012 03/18/2013 IUD migration 03/04/2012 03/18/2013 Overview: In cervical canal causing severe cramping Carbuncle and furuncle of trunk 05/12/2008 03/12/2015 Decreased movements, a ffecting management of mother, antepartum 01/20/2008 008 Adjustment disorder with depressed mood 02/02/2007 09/15/2019 Acute gastritis without mention of hemorrhage 04/11/20 05 05/07/2015 Abdominal pain, epigastric 04/02/2005 1 Unspecified prophylactic or treatment measure 03/12/2015 documented as of this encounter (statuses as of 08/17/2023) [facility] History of Past illness Narrative* Problem Noted Date Diagnosed Date Resolved Date Hiatal hernia 11/09/2020 11/09/2020 Recurrent major depression r esistant to treatment 06/09/2019 11/21/2021 Last Assessment & Plan: Assessment: Stable, on Abilify, Lamictal, Effexor, and Klonopin PRN. Panic disorder without agoraphobia 06/09/2019 11/21/2021 Tobacco abuse 04/13/2012 07/22/2017 Breakthrough bleeding with IUD 03/04/2012 03/18/2013 IUD migration 03/04/2012 03/18/2013 Overview: In cervical canal causing severe cramping Carbuncle and furuncle of trunk 05/12/2008 03/12/2015 Decreased movements, a ffecting management of mother, antepartum 01/20/2008 008 Adjustment disorder with depressed mood 02/02/2007 09/15/2019 Acute gastritis without mention of hemorrhage 04/11/20 05 05/07/2015 Abdominal pain, epigastric 04/02/2005 1 Unspecified prophylactic or treatment measure 03/12/2015 documented as of this encounter (statuses as of 08/18/2023) [facility] History of Past illness Narrative* Problem Noted Date Diagnosed Date Resolved Date Hiatal hernia 11/09/2020 11/09/2020 Recurrent major depression r esistant to treatment 06/09/2019 11/21/2021 Last Assessment & Plan: Assessment: Stable, on Abilify, Lamictal, Effexor, and Klonopin PRN. Panic disorder without agoraphobia 06/09/2019 11/21/2021 Tobacco abuse 04/13/2012 07/22/2017 Breakthrough bleeding with IUD 03/04/2012 03/18/2013 IUD migration 03/04/2012 03/18/2013 Overview: In cervical canal causing severe cramping Carbuncle and furuncle of trunk 05/12/2008 03/12/2015 Decreased movements, a ffecting management of mother, antepartum 01/20/2008 008 Adjustment disorder with depressed mood 02/02/2007 09/15/2019 Acute gastritis without mention of hemorrhage 04/11/20 05 05/07/2015 Abdominal pain, epigastric 04/02/2005 1 Unspecified prophylactic or treatment measure 03/12/2015 documented as of this encounter (statuses as of 08/19/2023) [facility] of Past illness Narrative* Problem Noted Date Diagnosed Date Resolved Date Hiatal hernia 11/09/2020 11/09/2020 Recurrent major depression r esistant to treatment 06/09/2019 11/21/2021 Last Assessment & Plan: Assessment: Stable, on Abilify, Lamictal, Effexor, and Klonopin PRN. Panic disorder without agoraphobia 06/09/2019 11/21/2021 Tobacco abuse 04/13/2012 07/22/2017 Breakthrough bleeding with IUD 03/04/2012 03/18/2013 IUD migration 03/04/2012 03/18/2013 Overview: In cervical canal causing severe cramping Carbuncle and furuncle of trunk 05/12/2008 03/12/2015 Decreased movements, a ffecting management of mother, antepartum 01/20/2008 008 Adjustment disorder with depressed mood 02/02/2007 09/15/2019 Acute gastritis without mention of hemorrhage 04/11/20 05 05/07/2015 Abdominal pain, epigastric 04/02/2005 1 Unspecified prophylactic or treatment measure 03/12/2015 documented as of this encounter (statuses as of 08/28/2023) [facility] History of Past illness Narrative* Problem Noted Date Diagnosed Date Resolved Date Hiatal hernia 11/09/2020 11/09/2020 Recurrent major depression r esistant to treatment 06/09/2019 11/21/2021 Last Assessment & Plan: Assessment: Stable, on Abilify, Lamictal, Effexor, and Klonopin PRN. Panic disorder without agoraphobia 06/09/2019 11/21/2021 Tobacco abuse 04/13/2012 07/22/2017 Breakthrough bleeding with IUD 03/04/2012 03/18/2013 IUD migration 03/04/2012 03/18/2013 Overview: In cervical canal causing severe cramping Carbuncle and furuncle of trunk 05/12/2008 03/12/2015 Decreased movements, a ffecting management of mother, antepartum 01/20/2008 008 Adjustment disorder with depressed mood 02/02/2007 09/15/2019 Acute gastritis without mention of hemorrhage 04/11/20 05 05/07/2015 Abdominal pain, epigastric 04/02/2005 1 Unspecified prophylactic or treatment measure 03/12/2015 documented as of this encounter (statuses as of 08/29/2023) [facility] History of Present illness Narrative* Roosevelt Shafer, RT(R) - 10/29/2020 2:10 PM EDT Radiology Service Progress Note PATIENT NAME: Fernanda Hernandez DATE OF SERVICE: October 29, 2020 TIME: 1:22 PM PATIENT IDENTITY VERIFICATION COMPLETED USING TWO (2) IDENTIFIERS: Name and Date of confirmedby patient verbally. FALL SCREENING: Has the patient had 2 falls in the last year or 1 fall with injury or currently using an Ambulatory Assistive Device (Walker, Cane, Wheelchair, Crutches, etc.)? No PATIENT GENDER DATA: Female. status: : No status: NO. PATIENT RELEVANT IMPLANT DATA REVIEWED: Yes RADIOLOGY DEPARTMENT: General X-ray: Exam(s) Completed: Lower Extremity X- Ray(s): Knee, AP / Lat / Tunne / Merchant Left and Wt. Bearing PERIPHERAL IV DATA: Not applicable SIGNED BY: RT Jessica(R) October 29, 2020 1:22 PM [facility] History of Present illness Narrative* Cher Garcia (Rt)Naomi - 04/13/2020 2:50 PM EST Radiology Service Progress Note PATIENT NAME: Fernanda Hernandez DATE OF SERVICE: April 13, 2020 TIME: 3:02 PM PATIENT IDENTITY VERIFICATION COMPLETED USING TWO (2) IDENTIFIERS: Name and Date of confirmedby patient verbally. FALL SCREENING: Has the patient had 2 falls in the last year or 1 fall with injury or currently using an Ambulatory Assistive Device (Walker, Cane, Wheelchair, Crutches, etc.)? No PATIENT GENDER DATA: Female. status: : No status: NO. PATIENT RELEVANT IMPLANT DATA REVIEWED: Not Applicable RADIOLOGY DEPARTMENT: General X-ray: Exam(s) Completed: Upper Extremity X- Ray(s): Shoulder, AP / TRUE AP / AXILLARY left : PERIPHERAL IV DATA: Not applicable SIGNED BY: RT Singh April 13, 2020 3:02 PM [facility]* Diagnosis Recurrent major depressive disorder, in full remission (HCC) [facility] Injury of right foot, initial encounter- Primary Foot pain, right Pain in limb [facility] Diagnosis Vaginal discharge- Primary Leukorrhea, not specified as infective Dysuria [facility]* Diagnosis Encounter for surveillance of contraceptive pills Surveillance of previously prescribed contraceptive pill [facility]* Diagnosis Recurrent major depressive disorder, in full remission (HCC)- Primary Anxiety disorder, unspecified type [facility]* Diagnosis Encounter for surveillance of contraceptive pills Surveillance of previously prescribed contraceptive pill [facility] Diagnosis Encounter for gynecological examination (general) (routine) without abnormal findings- Primary Encounter for surveillance of contraceptive pills Surveillance of previously prescribed contraceptive pill Encounter for screening mammogram for breast cancer Vaginal discharge Leukorrhea, not specified as infective [facility] Diagnosis Encounter for surveillance of contraceptive pills Surveillance of previously prescribed contraceptive pill [facility]* Diagnosis 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 Muscle tension headache Tension headache Cervicothoracic somatic dysfunction Nonallopathic lesion of cervical region, not elsewhere classified [facility]* Diagnosis Neck sprain, initial encounter- Primary Cervicothoracic somatic dysfunction Nonallopathic lesion of cervical region, not elsewhere classified [facility]* Diagnosis Iron deficiency anemia, unspecified iron deficiency anemia type [facility]* Diagnosis Sinus pressure- Primary Other diseases of nasal cavity and sinuses [facility]* Diagnosis Cervicothoracic somatic dysfunction- Primary Nonallopathic lesion of cervical region, not elsewhere classified [facility]* Diagnosis Recurrent major depressive disorder, in full remission (HCC) [facility]* Diagnosis Somatic dysfunction of spine, cervical- Primary Nonallopathic lesion of cervical region, not elsewhere classified Somatic dysfunction of spine, thoracic Nonallopathic lesion of thoracic region, not elsewhere classified Lightheadedness Dizziness and giddiness [facility] noteNo assessment information availableWOhioHealth [facility] Work Phone: Evaluation note* Diagnosis Anxiety disorder, unspecified type- Primary Recurrent major depressive disorder, in full remission (HCC) [facility]* Diagnosis Wheezing [facility]* Diagnosis Encounter for surveillance of contraceptive pills Surveillance of previously prescribed contraceptive pill [facility]* Diagnosis Pes anserine bursitis- Primary Pes anserinus tendinitis or bursitis Somatic dysfunction of cervical region Nonallopathic lesion of cervical region, not elsewhere classified Somatic dysfunction of spine, thoracic Nonallopathic lesion of thoracic region, not elsewhere classified [facility]* Diagnosis Weight gain following gastric bypass surgery- Primary [facility]* Diagnosis Encounter for screening mammogram for breast cancer [facility]* Diagnosis Recurrent major depressive disorder, in full remission (HCC) [facility]* Diagnosis Onset Date Resolution Status Osteoarthritis of right knee acute Patellofemoral syndrome of both knees acute Right knee pain acute [facility] Work Phone: Evaluation note* Diagnosis Onset Date Resolution Status Osteoarthritis of right knee acute Patellofemoral syndrome of both knees acute Right knee pain acute Osteoarthritis of left knee acute [facility] Work Phone: Evaluation note* Diagnosis Encounter for surveillance of contraceptive pills Surveillance of previously prescribed contraceptive pill [facility]* Diagnosis Encounter for gynecological examination (general) (routine) without abnormal findings- Primary History of bilateral breast reduction surgery Other postprocedural status Screening for cervical cancer Screening for malignant neoplasm of the cervix Encounter for screening for human papillomavirus (HPV) Special screening examination for human papillomavirus (HPV) Encounter for screening mammogram for breast cancer Encounter for surveillance of contraceptive pills Surveillance of previously prescribed contraceptive pill Hot flashes Symptomatic menopausal or female climacteric states [facility]* Diagnosis Bacterial sinusitis- Primary Unspecified sinusitis (chronic) Other acute nonsuppurative otitis media of left ear, recurrence not specified COVID-19 [facility]* Diagnosis Somatic dysfunction of spine, cervical- Primary Nonallopathic lesion of cervical region, not elsewhere classified Somatic dysfunction of spine, thoracic Nonallopathic lesion of thoracic region, not elsewhere classified [facility]* Diagnosis Seasonal allergies- Primary Allergic rhinitis, cause unspecified [facility]* Diagnosis Acute pain of left knee [facility]* Diagnosis Weight gain following gastric bypass surgery- Primary [facility]* Diagnosis Major depressive disorder, recurrent, moderate (HCC)- Primary Major depressive disorder, recurrent episode, moderate Anxiety disorder, unspecified type documented in this encounter [facility]* Diagnosis Somatic dysfunction of spine, cervical- Primary Nonallopathic lesion of cervical region, not elsewhere classified Somatic dysfunction of rib Somatic dysfunction of left side of chest wall [facility]* Diagnosis Somatic dysfunction of spine, cervical- Primary Nonallopathic lesion of cervical region, not elsewhere classified documented in this encounter [facility]* Diagnosis Encounter for screening mammogram for breast cancer [facility]* Diagnosis Pain in left arm- Primary Pain in left leg [facility]* Diagnosis Weight gain following gastric bypass surgery- Primary Anxiety disorder, unspecified type [facility]* Diagnosis Weight gain following gastric bypass surgery- Primary [facility]* Diagnosis Weight gain following gastric bypass surgery [facility]* Diagnosis Nausea and vomiting, unspecified vomiting type- Primary Pain of upper abdomen Abdominal pain, other specified site Iron deficiency anemia, unspecified iron deficiency anemia type [facility]* Diagnosis Major depressive disorder, recurrent, moderate (HCC) Major depressive disorder, recurrent episode, moderate [facility]* Diagnosis Benign paroxysmal positional vertigo, unspecified laterality [facility]* Diagnosis Diarrhea, unspecified type- Primary Abdominal cramping Abdominal pain, unspecified site [facility]* Diagnosis Occult blood positive stool- Primary Nonspecific abnormal finding in stool contents [facility]* Diagnosis Diarrhea, unspecified type- Primary Occult blood positive stool Nonspecific abnormal finding in stool contents [facility]* Diagnosis Preoperative examination- Primary Preoperative examination, unspecified Morbid obesity (HCC) Morbid obesity Hiatal hernia Diaphragmatic hernia without mention of obstruction or gangrene [place] (obstructive sleep apnea) Obstructive sleep apnea (adult) (pediatric) 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) Major depressive disorder, recurrent episode, unspecified Neck sprain, initial encounter Cervicothoracic somatic dysfunction Nonallopathic lesion of cervical region, not elsewhere classified [facility]* Diagnosis Preoperative examination- Primary Preoperative examination, unspecified Morbid obesity (HCC) Morbid obesity Hiatal hernia Diaphragmatic hernia without mention of obstruction or gangrene [place] (obstructive sleep apnea) Obstructive sleep apnea (adult) (pediatric) 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) Major depressive disorder, recurrent episode, unspecified Neck sprain, initial encounter Cervicothoracic somatic dysfunction Nonallopathic lesion of cervical region, not elsewhere classified [facility]* Diagnosis Preoperative examination- Primary Preoperative examination, unspecified Morbid obesity (HCC) Morbid obesity Hiatal hernia Diaphragmatic hernia without mention of obstruction or gangrene [place] (obstructive sleep apnea) Obstructive sleep apnea (adult) (pediatric) 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) Major depressive disorder, recurrent episode, unspecified Encounter for surveillance of contraceptive pills Surveillance of previously prescribed contraceptive pill [facility] Diagnosis Preoperative examination- Primary Preoperative examination, unspecified Morbid obesity (HCC) Morbid obesity Hiatal hernia Diaphragmatic hernia without mention of obstruction or gangrene [place] (obstructive sleep apnea) Obstructive sleep apnea (adult) (pediatric) 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) Major depressive disorder, recurrent episode, unspecified Fibromyalgia- Primary Mylagia and myositis, unspecified Anxiety with depression Strain of trapezius muscle, unspecified laterality, initial encounter Cervical pain Cervicalgia [facility] Diagnosis Preoperative examination- Primary Preoperative examination, unspecified Morbid obesity (HCC) Morbid obesity Hiatal hernia Diaphragmatic hernia without mention of obstruction or gangrene [place] (obstructive sleep apnea) Obstructive sleep apnea (adult) (pediatric) 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) Major depressive disorder, recurrent episode, unspecified Encounter for screening for malignant neoplasm of colon- Primary Special screening for malignant neoplasms, colon [facility] Diagnosis Preoperative examination- Primary Preoperative examination, unspecified Morbid obesity (HCC) Morbid obesity Hiatal hernia Diaphragmatic hernia without mention of obstruction or gangrene [place] (obstructive sleep apnea) Obstructive sleep apnea (adult) (pediatric) 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) Major depressive disorder, recurrent episode, unspecified Abdominal cramping Abdominal pain, unspecified site [facility] Diagnosis Preoperative examination- Primary Preoperative examination, unspecified Morbid obesity (HCC) Morbid obesity Hiatal hernia Diaphragmatic hernia without mention of obstruction or gangrene [place] (obstructive sleep apnea) Obstructive sleep apnea (adult) (pediatric) 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) Major depressive disorder, recurrent episode, unspecified Major depressive disorder, recurrent episode, moderate (HCC)- Primary Major depressive disorder, recurrent episode, moderate Anxiety disorder, unspecified type Major depressive disorder, recurrent, moderate (HCC) Major depressive disorder, recurrent episode, moderate [facility] Diagnosis Preoperative examination- Primary Preoperative examination, unspecified Morbid obesity (HCC) Morbid obesity Hiatal hernia Diaphragmatic hernia without mention of obstruction or gangrene [place] (obstructive sleep apnea) Obstructive sleep apnea (adult) (pediatric) 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) Major depressive disorder, recurrent episode, unspecified Neck pain Cervicalgia Low back pain with sciatica, sciatica laterality unspecified, unspecified back pain laterality, unspecified chronicity Screening for colon cancer- Primary Special screening for malignant neoplasms, colon [facility] Diagnosis Preoperative examination- Primary Preoperative examination, unspecified Morbid obesity (HCC) Morbid obesity Hiatal hernia Diaphragmatic hernia without mention of obstruction or gangrene [place] (obstructive sleep apnea) Obstructive sleep apnea (adult) (pediatric) 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) Major depressive disorder, recurrent episode, unspecified Encounter for gynecological examination (general) (routine) without abnormal findings- Primary Encounter for screening mammogram for breast cancer Encounter for surveillance of contraceptive pills Surveillance of previously prescribed contraceptive pill [facility] Diagnosis Preoperative examination- Primary Preoperative examination, unspecified Morbid obesity (HCC) Morbid obesity Hiatal hernia Diaphragmatic hernia without mention of obstruction or gangrene [place] (obstructive sleep apnea) Obstructive sleep apnea (adult) (pediatric) 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) Major depressive disorder, recurrent episode, unspecified Diarrhea, unspecified type- Primary documented in this encounter [facility]* Diagnosis Preoperative examination- Primary Preoperative examination, unspecified Morbid obesity (HCC) Morbid obesity Hiatal hernia Diaphragmatic hernia without mention of obstruction or gangrene [place] (obstructive sleep apnea) Obstructive sleep apnea (adult) (pediatric) 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) Major depressive disorder, recurrent episode, unspecified Acute cough [facility] Diagnosis Preoperative examination- Primary Preoperative examination, unspecified Morbid obesity (HCC) Morbid obesity Hiatal hernia Diaphragmatic hernia without mention of obstruction or gangrene [place] (obstructive sleep apnea) Obstructive sleep apnea (adult) (pediatric) 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) Major depressive disorder, recurrent episode, unspecified Bronchitis due to COVID-19 virus [facility] Diagnosis Preoperative examination- Primary Preoperative examination, unspecified Morbid obesity (HCC) Morbid obesity Hiatal hernia Diaphragmatic hernia without mention of obstruction or gangrene [place] (obstructive sleep apnea) Obstructive sleep apnea (adult) (pediatric) 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) Major depressive disorder, recurrent episode, unspecified NO SHOW- Primary documented in this encounter [facility] note* Diagnosis Acute pain of left knee Preoperative examination- Primary Preoperative examination, unspecified Morbid obesity (HCC) Morbid obesity Hiatal hernia Diaphragmatic hernia without mention of obstruction or gangrene [place] (obstructive sleep apnea) Obstructive sleep apnea (adult) (pediatric) 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) Major depressive disorder, recurrent episode, unspecified [facility] Diagnosis Acute pain of left shoulder Preoperative examination- Primary Preoperative examination, unspecified Morbid obesity (HCC) Morbid obesity Hiatal hernia Diaphragmatic hernia without mention of obstruction or gangrene [place] (obstructive sleep apnea) Obstructive sleep apnea (adult) (pediatric) 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) Major depressive disorder, recurrent episode, unspecified [facility] Diagnosis Preoperative examination- Primary Preoperative examination, unspecified Morbid obesity (HCC) Morbid obesity Hiatal hernia Diaphragmatic hernia without mention of obstruction or gangrene [place] (obstructive sleep apnea) Obstructive sleep apnea (adult) (pediatric) 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) Major depressive disorder, recurrent episode, unspecified Major depressive disorder, recurrent episode, moderate (HCC) Major depressive disorder, recurrent episode, moderate Anxiety disorder, unspecified type documented in this encounter [facility] note* Diagnosis Preoperative examination- Primary Preoperative examination, unspecified Morbid obesity (HCC) Morbid obesity Hiatal hernia Diaphragmatic hernia without mention of obstruction or gangrene [place] (obstructive sleep apnea) Obstructive sleep apnea (adult) (pediatric) 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) Major depressive disorder, recurrent episode, unspecified Sinobronchitis- Primary Unspecified sinusitis (chronic) Sore throat Acute pharyngitis documented in this encounter [facility] note* Diagnosis Preoperative examination- Primary Preoperative examination, unspecified Morbid obesity (HCC) Morbid obesity Hiatal hernia Diaphragmatic hernia without mention of obstruction or gangrene [place] (obstructive sleep apnea) Obstructive sleep apnea (adult) (pediatric) 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) Major depressive disorder, recurrent episode, unspecified Other fatigue- Primary Other fatigue documented in this encounter [facility] note* Diagnosis Preoperative examination- Primary Preoperative examination, unspecified Morbid obesity (HCC) Morbid obesity Hiatal hernia Diaphragmatic hernia without mention of obstruction or gangrene [place] (obstructive sleep apnea) Obstructive sleep apnea (adult) (pediatric) 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) Major depressive disorder, recurrent episode, unspecified Other fatigue documented in this encounter [facility] note* Diagnosis Preoperative examination- Primary Preoperative examination, unspecified Morbid obesity (HCC) Morbid obesity Hiatal hernia Diaphragmatic hernia without mention of obstruction or gangrene [place] (obstructive sleep apnea) Obstructive sleep apnea (adult) (pediatric) 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) Major depressive disorder, recurrent episode, unspecified Urinary frequency- Primary documented in this encounter [facility] note* Diagnosis Preoperative examination- Primary Preoperative examination, unspecified Morbid obesity (HCC) Morbid obesity Hiatal hernia Diaphragmatic hernia without mention of obstruction or gangrene [place] (obstructive sleep apnea) Obstructive sleep apnea (adult) (pediatric) 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) Major depressive disorder, recurrent episode, unspecified Dysuria- Primary Diverticulitis Diverticulitis of colon (without mention of hemorrhage) Phlebitis Phlebitis and thrombophlebitis of unspecified site documented in this encounter [facility] note* Diagnosis Preoperative examination- Primary Preoperative examination, unspecified Morbid obesity (HCC) Morbid obesity Hiatal hernia Diaphragmatic hernia without mention of obstruction or gangrene [place] (obstructive sleep apnea) Obstructive sleep apnea (adult) (pediatric) 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) Major depressive disorder, recurrent episode, unspecified Major depressive disorder, recurrent, moderate (HCC) Major depressive disorder, recurrent episode, moderate [facility] Diagnosis Preoperative examination- Primary Preoperative examination, unspecified Morbid obesity (HCC) Morbid obesity Hiatal hernia Diaphragmatic hernia without mention of obstruction or gangrene [place] (obstructive sleep apnea) Obstructive sleep apnea (adult) (pediatric) 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) Major depressive disorder, recurrent episode, unspecified Major depressive disorder, recurrent episode, moderate (HCC) Major depressive disorder, recurrent episode, moderate Anxiety disorder, unspecified type [facility] Diagnosis Preoperative examination- Primary Preoperative examination, unspecified Morbid obesity (HCC) Morbid obesity Hiatal hernia Diaphragmatic hernia without mention of obstruction or gangrene [place] (obstructive sleep apnea) Obstructive sleep apnea (adult) (pediatric) 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) Major depressive disorder, recurrent episode, unspecified Sore throat- Primary Acute pharyngitis Rash Rash and other nonspecific skin eruption [facility] Diagnosis Preoperative examination- Primary Preoperative examination, unspecified Morbid obesity (HCC) Morbid obesity Hiatal hernia Diaphragmatic hernia without mention of obstruction or gangrene [place] (obstructive sleep apnea) Obstructive sleep apnea (adult) (pediatric) 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) Major depressive disorder, recurrent episode, unspecified Viral upper respiratory tract infection- Primary Acute upper respiratory infections of unspecified site Neck pain Cervicalgia Low back pain with sciatica, sciatica laterality unspecified, unspecified back pain laterality, unspecified chronicity [facility] Diagnosis Preoperative examination- Primary Preoperative examination, unspecified Morbid obesity (HCC) Morbid obesity Hiatal hernia Diaphragmatic hernia without mention of obstruction or gangrene [place] (obstructive sleep apnea) Obstructive sleep apnea (adult) (pediatric) 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) Major depressive disorder, recurrent episode, unspecified Inflamed sebaceous cyst- Primary Sebaceous cyst [facility] Diagnosis Preoperative examination- Primary Preoperative examination, unspecified Morbid obesity (HCC) Morbid obesity Hiatal hernia Diaphragmatic hernia without mention of obstruction or gangrene [place] (obstructive sleep apnea) Obstructive sleep apnea (adult) (pediatric) 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) Major depressive disorder, recurrent episode, unspecified Benign paroxysmal positional vertigo, unspecified laterality [facility] Diagnosis Preoperative examination- Primary Preoperative examination, unspecified Morbid obesity (HCC) Morbid obesity Hiatal hernia Diaphragmatic hernia without mention of obstruction or gangrene [place] (obstructive sleep apnea) Obstructive sleep apnea (adult) (pediatric) 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) Major depressive disorder, recurrent episode, unspecified Epidermal inclusion cyst- Primary Sebaceous cyst [facility] Diagnosis Preoperative examination- Primary Preoperative examination, unspecified Morbid obesity (HCC) Morbid obesity Hiatal hernia Diaphragmatic hernia without mention of obstruction or gangrene [place] (obstructive sleep apnea) Obstructive sleep apnea (adult) (pediatric) 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) Major depressive disorder, recurrent episode, unspecified Infected sebaceous cyst- Primary Sebaceous cyst Epidermal inclusion cyst Sebaceous cyst [facility] Diagnosis Preoperative examination- Primary Preoperative examination, unspecified Morbid obesity (HCC) Morbid obesity Hiatal hernia Diaphragmatic hernia without mention of obstruction or gangrene [place] (obstructive sleep apnea) Obstructive sleep apnea (adult) (pediatric) 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) Major depressive disorder, recurrent episode, unspecified Infected sebaceous cyst- Primary Sebaceous cyst [facility] Diagnosis Preoperative examination- Primary Preoperative examination, unspecified Morbid obesity (HCC) Morbid obesity Hiatal hernia Diaphragmatic hernia without mention of obstruction or gangrene [place] (obstructive sleep apnea) Obstructive sleep apnea (adult) (pediatric) 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) Major depressive disorder, recurrent episode, unspecified BPPV (benign paroxysmal positional vertigo), unspecified laterality- Primary Orthostasis Orthostatic hypotension Infected sebaceous cyst- Primary Sebaceous cyst [facility] Diagnosis Preoperative examination- Primary Preoperative examination, unspecified Morbid obesity (HCC) Morbid obesity Hiatal hernia Diaphragmatic hernia without mention of obstruction or gangrene [place] (obstructive sleep apnea) Obstructive sleep apnea (adult) (pediatric) 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) Major depressive disorder, recurrent episode, unspecified Infected sebaceous cyst- Primary Sebaceous cyst [facility] Diagnosis Preoperative examination- Primary Preoperative examination, unspecified Morbid obesity (HCC) Morbid obesity Hiatal hernia Diaphragmatic hernia without mention of obstruction or gangrene [place] (obstructive sleep apnea) Obstructive sleep apnea (adult) (pediatric) 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) Major depressive disorder, recurrent episode, unspecified Major depressive disorder, recurrent, moderate (HCC) Major depressive disorder, recurrent episode, moderate documented in this encounter [facility]* Diagnosis Preoperative examination- Primary Preoperative examination, unspecified Morbid obesity (HCC) Morbid obesity Hiatal hernia Diaphragmatic hernia without mention of obstruction or gangrene [place] (obstructive sleep apnea) Obstructive sleep apnea (adult) (pediatric) 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) Major depressive disorder, recurrent episode, unspecified Major depressive disorder, recurrent, moderate (HCC) Major depressive disorder, recurrent episode, moderate documented in this encounter [facility]* Diagnosis Preoperative examination- Primary Preoperative examination, unspecified Morbid obesity (HCC) Morbid obesity Hiatal hernia Diaphragmatic hernia without mention of obstruction or gangrene [place] (obstructive sleep apnea) Obstructive sleep apnea (adult) (pediatric) 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nt Major depressive disorder, recurrent episode, unspecified Major depressive disorder, recurrent episode, moderate (HCC)- Primary Major depressive disorder, recurrent episode, moderate Anxiety disorder, unspecified type Panic attack Panic disorder without agoraphobia Encounter for long-term current use of medication documented in this encounter [facility]* Diagnosis Preoperative examination- Primary Preoperative examination, unspecified Morbid obesity (HCC) Morbid obesity Hiatal hernia Diaphragmatic hernia without mention of obstruction or gangrene [place] (obstructive sleep apnea) Obstructive sleep apnea (adult) (pediatric) 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nt Major depressive disorder, recurrent episode, unspecified Major depressive disorder, recurrent episode, moderate (HCC) Major depressive disorder, recurrent episode, moderate Anxiety disorder, unspecified type [facility] Diagnostic Procedure Only (Urgent) - Closed Specialty Diagnoses / Procedures Referred By Contac t Referred To Contact XR IMAGING Diagnoses Injury of right foot, initial encounter Foot pain, right Procedures XR FOOT GENERAL 3V AP/LAT/OBL RIGHT RADEX FOOT COMPLETE MINIMUM 3 VIEWS Leticia Walls APRN.CNP [address] [place] [address] [facility] Referral ID Status Reason Start Date Expiration Date V isits Requested Visits Authorized [id number] Closed Auto-Generate d Referral 10/07/2021 11/06/2022 1 1 [facility] ([facility] Diagnostic Procedure Only (Routine) - Authorized Specialty Diagnoses / Procedures Referred By Contac t Referred To Contact BR IMAGING Diagnoses Encounter for screening mammogram for breast cancer Procedures JEREMY SCREENING SCREENING MAMMOGRAPHY BI 2-VIEW BREAST INC CAD Deborah Whittaker, AGENCY OWNER [address] [place] [address] [facility] [address] [place] [address] Referral ID Status Reason Start Date Expiration Date Visits Requested Visits Authorized [id number] Authorized Auto-Generat ed Referral 12/17/2021 01/16/2023 1 1 [facility] (narrative)* Diagnostic Procedure Only (Routine) - Pending Review Specialty Diagnoses / Procedures Referred By Contlubna t Referred To Contact BR IMAGING Diagnoses Encounter for screening mammogram for breast cancer Procedures JEREMY SCREENING SCREENING MAMMOGRAPHY BI 2-VIEW BREAST INC CAD Mandie Garcia PA-C [address] [place] [address] [facility] [address] [place] [address] Referral ID Status Reason Start Date Expiration Date Visits Requested Visits Authorized [id number] Pending Review Auto-Generat ed Referral 11/19/2022 12/19/2023 1 1 [facility] (narrative)* Diagnostic Procedure Only (Routine) - Authorized Specialty Diagnoses / Procedures Referred By Contac t Referred To Contact BR IMAGING Diagnoses History of bilateral breast reduction surgery Procedures JEREMY SCREENING W YANELY SCREENING DIGITAL BREAST TOMOSYNTHESIS BI SCREENING MAMMOGRAPHY BI 2-VIEW BREAST INC CAD Deborah Whittaker, PETR.AGENCY OWNER [address] [place] [address] [facility] [address] [place] [address] Referral ID Status Reason Start Date Expiration Date Visits Requested Visits Authorized [id number] Authorized Auto-Generat ed Referral 02/05/2023 03/06/2024 1 1 [facility] (narrative)* Diagnostic Procedure Only (Routine) - Closed Specialty Diagnoses / Procedures Referred By Contac t Referred To Contact XR IMAGING Diagnoses Acute pain of left knee Procedures XR KNEE GENERAL 4V AP BOTH/PA BOTH/LAT/MERC LEFT RADIOLOGIC EXAM KNEE COMPLETE 4/MORE VIEWS Judah Mobley MD [address] [place] [address] [place] [address] Referral ID Status Reason Start Date Expiration Date V isits Requested Visits Authorized [id number] Closed Auto-Generate d Referral 11/03/2022 12/03/2023 1 1 [facility] (narrative)* Diagnostic Procedure Only (Routine) - Closed Specialty Diagnoses / Procedures Referred By Contac t Referred To Contact BR IMAGING Diagnoses Encounter for screening mammogram for breast cancer Procedures JEREMY SCREENING SCREENING MAMMOGRAPHY BI 2-VIEW BREAST INC CAD Mandie Garcia PA-C [address] [place] [address] [facility] [address] [place] [address] Referral ID Status Reason Start Date Expiration Date V isits Requested Visits Authorized [id number] Closed Auto-Generate d Referral 11/19/2022 12/19/2023 1 1 [facility] (narrative)* Diagnostic Procedure Only (Routine) - Pending Review Specialty Diagnoses / Procedures Referred By Contac t Referred To Contact XR IMAGING Diagnoses Weight gain following gastric bypass surgery Procedures XR UPPER GI SINGLE CONTRAST RADIOLOGIC EXAM UPR GI TRC SINGLE CONTRAST STUDY Clive Zuniga DO [address] [place] [address] [place] [address] Referral ID Status Reason Start Date Expiration Date Visits Requested Visits Authorized [id number] Pending Review Auto-Generat ed Referral 08/17/2023 09/15/2024 1 1 [facility] (narrative)* Diagnostic Procedure Only (Routine) - Closed Specialty Diagnoses / Procedures Referred By Contac t Referred To Contact XR IMAGING Diagnoses Weight gain following gastric bypass surgery Procedures XR UPPER GI SINGLE CONTRAST RADIOLOGIC EXAM UPR GI TRC SINGLE CONTRAST STUDY Clive Zuniga DO [address] [place] [address] [facility] Referral ID Status Reason Start Date Expiration Date V isits Requested Visits Authorized [id number] Closed Auto-Generate d Referral 05/25/2023 05/24/2024 1 1 [facility] (narrative)* Diagnostic Procedure Only (Routine) - Closed Specialty Diagnoses / Procedures Referred By Contac t Referred To Contact XR IMAGING Diagnoses Abdominal cramping Procedures XR ABDOMEN 1V SUPINE RADIOLOGIC EXAM ABDOMEN 1 VIEW Faith Deluna APRN.AGENCY OWNER [address] [place] [address] Xr Imaging [id number] Referral ID Status Reason Start Date Expiration Date V isits Requested Visits Authorized [id number] Closed Auto-Generate d Referral 12/16/2023 01/14/2025 1 1 [facility] for [facility] (narrative)* Outpatient Procedure (Routine) - Authorized Specialty Diagnoses / Procedures Referred By Contac t Referred To Contact [facility] Diagnoses Diarrhea, unspecified type Occult blood positive stool Procedures COLONOSCOPY DIAGNOSTIC COLONOSCOPY FLX DX W/COLLJ SPEC WHEN Ashlee Juarez APRN.AGENCY OWNER [address] [place] [address] [facility] [address] [place] [address] Referral ID Status Reason Start Date Expiration Date Visits Requested Visits Authorized [id number] Authorized Auto-Generat ed Referral 12/28/2023 12/27/2024 1 1 [facility] for referral (narrative)* Diagnostic Procedure Only (Routine) - Closed Specialty Diagnoses / Procedures Referred By Contac t Referred To Contact XR IMAGING Diagnoses Abdominal cramping Procedures XR ABDOMEN 1V SUPINE RADIOLOGIC EXAM ABDOMEN 1 VIEW Faith Deluna APRN.AGENCY OWNER [address] [place] [address] [place] [address] Referral ID Status Reason Start Date Expiration Date V isits Requested Visits Authorized [id number] Closed Auto-Generate d Referral 12/16/2023 01/14/2025 1 1 [facility] for referral (narrative)* Diagnostic Procedure Only (Routine) - Closed Specialty Diagnoses / Procedures Referred By Contac t Referred To Contact XR IMAGING Diagnoses Low back pain with sciatica, sciatica laterality unspecified, unspecified back pain laterality, unspecified chronicity Procedures XR LUMBAR GENERAL 3V AP/LAT/L5-S1 RADEX SPINE LUMBOSACRAL 2/3 VIEWS Faith Deluna APRN.AGENCY OWNER [address] [place] [address] [place] [address] Referral ID Status Reason Start Date Expiration Date V isits Requested Visits Authorized [id number] Closed Auto-Generate d Referral 08/21/2023 09/19/2024 1 1 * Diagnostic Procedure Only (Routine) - Closed Specialty Diagnoses / Procedures Referred By Contac t Referred To Contact XR IMAGING Diagnoses Neck pain Procedures XR CERV OTHER 4V AP/LAT/OBL RADEX SPINE CERVICAL 4 OR 5 VIEWS Faith Deluna APRN.AGENCY OWNER [address] [place] [address] [place] [address] Referral ID Status Reason Start Date Expiration Date V isits Requested Visits Authorized [id number] Closed Auto-Generate d Referral 08/21/2023 09/19/2024 1 1 [facility] for referral (narrative)* Diagnostic Procedure Only (Routine) - New Request Specialty Diagnoses / Procedures Referred By Delilah t Referred To Contact BR [facility] Diagnoses Encounter for screening mammogram for breast cancer Procedures JEREMY SCREENING W YANELY SCREENING DIGITAL BREAST TOMOSYNTHESIS BI SCREENING MAMMOGRAPHY BI 2-VIEW BREAST INC Deborah Jha APRN.AGENCY OWNER [address] [place] [address] [facility] [address] [place] [address] Referral ID Status Reason Start Date Expiration Date Visits Requested Visits Authorized [id number] New Request Auto-Generat ed Referral 02/08/2024 03/09/2025 1 1 [facility] for referral (narrative)No reason for referral information [facility]: Reason for visit Narrative* Diagnostic Procedure Only (Routine) - Closed Specialty Diagnoses / Procedures Referred By Delilah bravo Referred To Contact XR IMAGING Diagnoses Acute pain of left knee Procedures XR KNEE GENERAL 4V AP BOTH/PA BOTH/LAT/MERC LEFT RADIOLOGIC EXAM KNEE COMPLETE 4/MORE VIEWS Judah Mobley MD [address] [place] [address] [place] [address] Referral ID Status Reason Start Date Expiration Date V isits Requested Visits Authorized [id number] Closed Auto-Generate d Referral 11/03/2022 12/03/2023 1 1 [facility] for visit Narrative* Diagnostic Procedure Only (Routine) - Closed Specialty Diagnoses / Procedures Referred By Delilah t Referred To Contact BR IMAGING Diagnoses Encounter for screening mammogram for breast cancer Procedures JEREMY SCREENING SCREENING MAMMOGRAPHY BI 2-VIEW BREAST INC CAD Mandie Garcia PA-C [address] [place] [address] [facility] [address] [place] [address] Referral ID Status Reason Start Date Expiration Date V isits Requested Visits Authorized [id number] Closed Auto-Generate d Referral 11/19/2022 12/19/2023 1 1 [facility] for visit Narrative* Diagnostic Procedure Only (Routine) - Closed Specialty Diagnoses / Procedures Referred By Contac t Referred To Contact XR IMAGING Diagnoses Weight gain following gastric bypass surgery Procedures XR UPPER GI SINGLE CONTRAST RADIOLOGIC EXAM UPR GI TRC SINGLE CONTRAST STUDY Clive Zuniga, DO [address] [place] [address] [place] [address] Referral ID Status Reason Start Date Expiration Date V isits Requested Visits Authorized [id number] Closed Auto-Generate d Referral 05/25/2023 05/24/2024 1 1 [facility] for visit Narrative* Diagnostic Procedure Only (Routine) - Closed Specialty Diagnoses / Procedures Referred By Contac t Referred To Contact XR IMAGING Diagnoses Abdominal cramping Procedures XR ABDOMEN 1V SUPINE RADIOLOGIC EXAM ABDOMEN 1 VIEW Faith Deluna, MEDICAL ONCOLOGY PHYSICIAN.AGENCY OWNER [address] [place] [address] [place] [address] Referral ID Status Reason Start Date Expiration Date V isits Requested Visits Authorized [id number] Closed Auto-Generate d Referral 12/16/2023 01/14/2025 1 1 [facility] for visit Narrative* Diagnostic Procedure Only (Routine) - Closed Specialty Diagnoses / Procedures Referred By Contac t Referred To Contact XR IMAGING Diagnoses Low back pain with sciatica, sciatica laterality unspecified, unspecified back pain laterality, unspecified chronicity Procedures XR LUMBAR GENERAL 3V AP/LAT/L5-S1 RADEX SPINE LUMBOSACRAL 2/3 VIEWS Faith Deluna, MEDICAL ONCOLOGY PHYSICIAN.AGENCY OWNER [address] [place] [address] [place] [address] Referral ID Status Reason Start Date Expiration Date V isits Requested Visits Authorized [id number] Closed Auto-Generate d Referral 08/21/2023 09/19/2024 1 1 [facility] for visit Narrative* Diagnostic Procedure Only (Urgent) - Closed Specialty Diagnoses / Procedures Referred By Contac t Referred To Contact XR IMAGING Diagnoses Injury of right foot, initial encounter Foot pain, right Procedures XR FOOT GENERAL 3V AP/LAT/OBL RIGHT RADEX FOOT COMPLETE MINIMUM 3 VIEWS Leticia Walls APRN.AGENCY OWNER [address] [facility] [place] [address] [place] [address] Referral ID Status Reason Start Date Expiration Date V isits Requested Visits Authorized [id number] Closed Auto-Generate d Referral 10/07/2021 11/06/2022 1 1 [facility] Summary Purpose Family History No Family History Records FoundNo Family History Records FoundNo Family History Records FoundNo Family History Records FoundNo Family History Records FoundNo Family History Records Found Advance Directives No Advanced Directives Records FoundDocuments on File Type Date 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 Advance Directive(s) 11/02/2020 11:51 AM Advance Directive(s) 03/06/2017 9:40 AM Advance Directive(s) 03/13/2016 11:39 AM Documents on File Type Date 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 Advance Directive(s) 11/02/2020 11:51 AM Advance Directive(s) 03/06/2017 9:40 AM Advance Directive(s) 03/13/2016 11:39 AM Advance Directive Response Recorded Date/ Time Advance Directives Yes March 19, 2016 9:25am Living Will Yes September 13, 2022 4:21pm Power of Software Analyst Yes September 13 4:21pm Name of Medical Power of Software Analyst JIM HERNANDEZ September 13, 2022 4:21pm Advance Directive Response Recorded Date/ Time Name of Medical Power of Software Analyst JIM HERNANDEZ September 13, 2022 4:21pm Advance Directives Yes March 19, 2016 9:25am Living Will No December 10, 2022 3:36pm Power of Software Analyst No December 10 3:36pm Advance Directive Response Recorded Date/ Time Living Will No June 28 6:41am Do you have a Healthcare Power of Software Analyst? No June 28, 2024 6:41am Living Will No July 18 10:24pm Do you have a Healthcare Power of Software Analyst? No July 18, 2024 10:24pm Living Will No June 27 8:32am Do you have a Healthcare Power of Software Analyst? No June 27, 2024 8:32am Advance Directives Yes March 19, 2016 9:25am Advance Directive Response Recorded Date/ Time Living Will No July 18 10:24pm Do you have a Healthcare Power of Software Analyst? No July 18, 2024 10:24pm Advance Directives Yes March 19, 2016 9:25am Health Concerns Infection Onset Date Last Indicated Resolved Time COVID-19 Rule-Out 04/23/2022 04/23/2022 Chief Complaint and Reason for Visit Chief Complaint CHEST PAIN Chief Complaint CHEST PAIN LEFT KNEE room 4 left knee Reason for Visit Osteoarthritis of ri ght knee Patellofemoral syndrome of both knees Right knee pain Chief Complaint CHEST PAIN LEFT KNEE room 4 left knee PAIN IN LEFT KNEE NEED CORRECTED ORDER LEFT KNEE Reason for Visit Osteoarthritis of ri ght knee Patellofemoral syndrome of both knees Right knee pain Osteoarthritis of left knee Chief Complaint Admit Date flank pain June 27, 2024 7 :06am back pain June 28, 2024 5 :38am SWAB-COLD July 15, 2024 6:32am 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/ [facility] July 15, 2024 10:39am CHEST COLD, SORE THROAT July 18 7:11am 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/ [facility] July 18, 2024 8:01am HEADACHE July 18, 2024 6:47pm VERTIGO/DR TO FAX August 18, 2024 8:3 0am Chief Complaint Admit Date flank pain June 27, 2024 7 :06am back pain June 28, 2024 5 :38am SWAB-COLD July 15, 2024 6:32am 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/ [facility] July 15, 2024 10:39am CHEST COLD, SORE THROAT July 18 7:11am 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/ [facility] July 18, 2024 8:01am HEADACHE July 18, 2024 6:47pm LEFT KNEE August 30, 2024 9:24 am LEFT KNEE September 06, 2024 9:0 9am LEFT KNEE September 13, 2024 9:0 0am VERTIGO/DR TO FAX October 05, 2024 8:30a m Reason for Visit Admit Date Osteoarthritis of left knee August 30 9:24am Osteoarthritis of left knee September 06, 2024 9:09am Osteoarthritis of left knee September 13, 2024 9:00am Chief Complaint Admit Date SWAB-COLD July 15, 2024 6:32am 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/ [facility] July 15, 2024 10:39am CHEST COLD, SORE THROAT July 18 7:11am 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/ [facility] July 18, 2024 8:01am HEADACHE July 18, 2024 6:47pm LEFT KNEE August 30, 2024 9:24 am LEFT KNEE September 06, 2024 9:0 9am LEFT KNEE September 13, 2024 9:0 0am VERTIGO/DR TO FAX October 05, 2024 8:30a m SELF PAY/SELF REF DRY NEEDLE October 31 11:00am LEFT KNEE October 31, 2024 12:54 pm Room 3 October 31, 2024 1:19p m Reason for Visit Admit Date Osteoarthritis of left knee August 30 9:24am Osteoarthritis of left knee September 06, 2024 9:09am Osteoarthritis of left knee September 13, 2024 9:00am Osteoarthritis of left knee October 31 12:54pm Reason for Referral Specialty Diagnoses / Procedures Referred By Contac t Referred To Contact Diagnoses Clive Almaraz, [address] [place] [id number] Referral ID Status Reason Start Date Expiration Date Visits Re quested Visits Authorized [id number] Closed 1 1 Specialty Diagnoses / Procedures Referred By Contac t Referred To Contact Diagnoses Major depressive disorder, recurrent, moderate (HCC) Procedures PROVIDER ORDERED FOLLOW UP OFFICE/OUTPATIENT [facility] 60-74 MINUTES Davon Downs, MEDICAL ONCOLOGY PHYSICIAN.AGENCY OWNER [address] [place] [address] Referral ID Status Reason Start Date Expiration Date Visits Requested Visits Authorized [id number] Authorized PCP Requested Referral 06/15/2023 04/28/2024 1 1 Specialty Diagnoses / Procedures Referred By Contac t Referred To Contact General Surgery Diagnoses Occult blood positive stool Procedures CONSULT TO GENERAL SURGERY OFFICE/OUTPATIENT [facility] MDM 60 MINUTES Faith Deluna, MEDICAL ONCOLOGY PHYSICIAN.AGENCY OWNER [address] [place] [address] Referral ID Status Reason Start Date Expiration Date Visits Requested Visits Authorized [id number] Authorized PCP Requested Referral 12/23/2023 12/22/2024 1 1 Specialty Diagnoses / Procedures Referred By Contac t Referred To Contact Diagnoses Encounter for screening for malignant neoplasm of colon Ashlee Lee APRN.AGENCY OWNER [address] [place] [address] Referral ID Status Reason Start Date Expiration Date V isits Requested Visits Authorized [id number] Pending Review 01/27/2024 03/27/2024 1 1 Specialty Diagnoses / Procedures Referred By Contac t Referred To Contact Diagnoses Major depressive disorder, recurrent episode, moderate (HCC) Anxiety disorder, unspecified type Procedures PROVIDER ORDERED FOLLOW UP OFFICE/OUTPATIENT [facility] 60 MINUTES Davon Downs APRN.AGENCY OWNER [address] [place] [address] Referral ID Status Reason Start Date Expiration Date Visits Requested Visits Authorized [id number] Authorized PCP Requested Referral 02/24/2024 01/31/2025 1 1 Medications Administered Section Inactive Administered Medications - up to 3 most recent administrations Medication Order MAR Action Action Date Dose Rate Site betamethasone acetate-betamethasone sodium phosphate 6 mg, BUPivacaine (PF) 5 mg, lidocaine (PF) 10 mg/mL (1 %) 10 mg INTRA-ARTICULAR, ONCE, 1 dose, On Thu11/17/22 at 1400, EXP: Given 11/17/2022 3:02 PM EDT Knee, Left Additional Source Comments INFORMATION SOURCE (unrecogn ized section and content) DATE CREATED AUTHOR 05/06/2018 [facility] DATE CREATED AUTHOR AUTHOR'S ORGANIZ ATION 02/18/2020 [facility] ([place]) DATE CREATED AUTHOR AUTHOR'S ORGANIZ ATION 02/09/2024 [facility] DATE CREATED AUTHOR AUTHOR'S ORGANIZ ATION 08/02/2024 [facility] DATE CREATED AUTHOR AUTHOR'S ORGANIZ ATION 11/12/2024 [facility] DATE CREATED AUTHOR AUTHOR'S SHEMAR ATION 01/07/2025 [facility] Source Comments (unrecognize d section and content) In the event this informatio n is protected by the Federal Confidentiality of Alcohol and Drug Abuse Patient Records regulations: The Federal rules restrict any use of the information to criminally investigate or prosecute any alcohol or drug abuse patient.[facility] the event this information is protected by the Federal Confidentiality of Alcohol and Drug Abuse Patient Records regulations: The Federal rules restrict any use of the information to criminally investigate or prosecute any alcohol or drug abuse patient.[facility] HospitalIn the event this information is protected by the Federal Confidentiality of Alcohol and Drug Abuse Patient Records regulations: The Federal rules restrict any use of the information to criminally investigate or prosecute any alcohol or drug abuse patient.[facility] HospitalIn the event this information is protected by the Federal Confidentiality of Alcohol and Drug Abuse Patient Records regulations: The Federal rules restrict any use of the information to criminally investigate or prosecute any alcohol or drug abuse patient.[facility] HospitalIn the event this information is protected by the Federal Confidentiality of Alcohol and Drug Abuse Patient Records regulations: The Federal rules restrict any use of the information to criminally investigate or prosecute any alcohol or drug abuse patient.[facility] HospitalIn the event this information is protected by the Federal Confidentiality of Alcohol and Drug Abuse Patient Records regulations: The Federal rules restrict any use of the information to criminally investigate or prosecute any alcohol or drug abuse patient.[facility] HospitalIn the event this information is protected by the Federal Confidentiality of Alcohol and Drug Abuse Patient Records regulations: The Federal rules restrict any use of the information to criminally investigate or prosecute any alcohol or drug abuse patient.[facility] HospitalIn the event this information is protected by the Federal Confidentiality of Alcohol and Drug Abuse Patient Records regulations: The Federal rules restrict any use of the information to criminally investigate or prosecute any alcohol or drug abuse patient.[facility] HospitalIn the event this information is protected by the Federal Confidentiality of Alcohol and Drug Abuse Patient Records regulations: The Federal rules restrict any use of the information to criminally investigate or prosecute any alcohol or drug abuse patient.[facility] HospitalIn the event this information is protected by the Federal Confidentiality of Alcohol and Drug Abuse Patient Records regulations: The Federal rules restrict any use of the information to criminally investigate or prosecute any alcohol or drug abuse patient.[facility] HospitalIn the event this information is protected by the Federal Confidentiality of Alcohol and Drug Abuse Patient Records regulations: The Federal rules restrict any use of the information to criminally investigate or prosecute any alcohol or drug abuse patient.[facility] HospitalIn the event this information is protected by the Federal Confidentiality of Alcohol and Drug Abuse Patient Records regulations: The Federal rules restrict any use of the information to criminally investigate or prosecute any alcohol or drug abuse patient.[facility] HospitalIn the event this information is protected by the Federal Confidentiality of Alcohol and Drug Abuse Patient Records regulations: The Federal rules restrict any use of the information to criminally investigate or prosecute any alcohol or drug abuse patient.[facility] HospitalIn the event this information is protected by the Federal Confidentiality of Alcohol and Drug Abuse Patient Records regulations: The Federal rules restrict any use of the information to criminally investigate or prosecute any alcohol or drug abuse patient.[facility] HospitalIn the event this information is protected by the Federal Confidentiality of Alcohol and Drug Abuse Patient Records regulations: The Federal rules restrict any use of the information to criminally investigate or prosecute any alcohol or drug abuse patient.[facility] HospitalIn the event this information is protected by the Federal Confidentiality of Alcohol and Drug Abuse Patient Records regulations: The Federal rules restrict any use of the information to criminally investigate or prosecute any alcohol or drug abuse patient.[facility] HospitalIn the event this information is protected by the Federal Confidentiality of Alcohol and Drug Abuse Patient Records regulations: The Federal rules restrict any use of the information to criminally investigate or prosecute any alcohol or drug abuse patient.[facility] HospitalIn the event this information is protected by the Federal Confidentiality of Alcohol and Drug Abuse Patient Records regulations: The Federal rules restrict any use of the information to criminally investigate or prosecute any alcohol or drug abuse patient.[facility] HospitalIn the event this information is protected by the Federal Confidentiality of Alcohol and Drug Abuse Patient Records regulations: The Federal rules restrict any use of the information to criminally investigate or prosecute any alcohol or drug abuse patient.[facility] HospitalIn the event this information is protected by the Federal Confidentiality of Alcohol and Drug Abuse Patient Records regulations: The Federal rules restrict any use of the information to criminally investigate or prosecute any alcohol or drug abuse patient.[facility] HospitalIn the event this information is protected by the Federal Confidentiality of Alcohol and Drug Abuse Patient Records regulations: The Federal rules restrict any use of the information to criminally investigate or prosecute any alcohol or drug abuse patient.[facility] HospitalIn the event this information is protected by the Federal Confidentiality of Alcohol and Drug Abuse Patient Records regulations: The Federal rules restrict any use of the information to criminally investigate or prosecute any alcohol or drug abuse patient.[facility] HospitalIn the event this information is protected by the Federal Confidentiality of Alcohol and Drug Abuse Patient Records regulations: The Federal rules restrict any use of the information to criminally investigate or prosecute any alcohol or drug abuse patient.[facility] HospitalIn the event this information is protected by the Federal Confidentiality of Alcohol and Drug Abuse Patient Records regulations: The Federal rules restrict any use of the information to criminally investigate or prosecute any alcohol or drug abuse patient.[facility] HospitalIn the event this information is protected by the Federal Confidentiality of Alcohol and Drug Abuse Patient Records regulations: The Federal rules restrict any use of the information to criminally investigate or prosecute any alcohol or drug abuse patient.[facility] HospitalIn the event this information is protected by the Federal Confidentiality of Alcohol and Drug Abuse Patient Records regulations: The Federal rules restrict any use of the information to criminally investigate or prosecute any alcohol or drug abuse patient.[facility] HospitalIn the event this information is protected by the Federal Confidentiality of Alcohol and Drug Abuse Patient Records regulations: The Federal rules restrict any use of the information to criminally investigate or prosecute any alcohol or drug abuse patient.[facility] HospitalIn the event this information is protected by the Federal Confidentiality of Alcohol and Drug Abuse Patient Records regulations: The Federal rules restrict any use of the information to criminally investigate or prosecute any alcohol or drug abuse patient.[facility] HospitalIn the event this information is protected by the Federal Confidentiality of Alcohol and Drug Abuse Patient Records regulations: The Federal rules restrict any use of the information to criminally investigate or prosecute any alcohol or drug abuse patient.[facility] HospitalIn the event this information is protected by the Federal Confidentiality of Alcohol and Drug Abuse Patient Records regulations: The Federal rules restrict any use of the information to criminally investigate or prosecute any alcohol or drug abuse patient.[facility] HospitalIn the event this information is protected by the Federal Confidentiality of Alcohol and Drug Abuse Patient Records regulations: The Federal rules restrict any use of the information to criminally investigate or prosecute any alcohol or drug abuse patient.[facility] HospitalIn the event this information is protected by the Federal Confidentiality of Alcohol and Drug Abuse Patient Records regulations: The Federal rules restrict any use of the information to criminally investigate or prosecute any alcohol or drug abuse patient.[facility] HospitalIn the event this information is protected by the Federal Confidentiality of Alcohol and Drug Abuse Patient Records regulations: The Federal rules restrict any use of the information to criminally investigate or prosecute any alcohol or drug abuse patient.[facility] HospitalIn the event this information is protected by the Federal Confidentiality of Alcohol and Drug Abuse Patient Records regulations: The Federal rules restrict any use of the information to criminally investigate or prosecute any alcohol or drug abuse patient.[facility] HospitalIn the event this information is protected by the Federal Confidentiality of Alcohol and Drug Abuse Patient Records regulations: The Federal rules restrict any use of the information to criminally investigate or prosecute any alcohol or drug abuse patient.[facility] HospitalIn the event this information is protected by the Federal Confidentiality of Alcohol and Drug Abuse Patient Records regulations: The Federal rules restrict any use of the information to criminally investigate or prosecute any alcohol or drug abuse patient.[facility] HospitalIn the event this information is protected by the Federal Confidentiality of Alcohol and Drug Abuse Patient Records regulations: The Federal rules restrict any use of the information to criminally investigate or prosecute any alcohol or drug abuse patient.[facility] HospitalIn the event this information is protected by the Federal Confidentiality of Alcohol and Drug Abuse Patient Records regulations: The Federal rules restrict any use of the information to criminally investigate or prosecute any alcohol or drug abuse patient.[facility] HospitalIn the event this information is protected by the Federal Confidentiality of Alcohol and Drug Abuse Patient Records regulations: The Federal rules restrict any use of the information to criminally investigate or prosecute any alcohol or drug abuse patient.[facility] HospitalIn the event this information is protected by the Federal Confidentiality of Alcohol and Drug Abuse Patient Records regulations: The Federal rules restrict any use of the information to criminally investigate or prosecute any alcohol or drug abuse patient.[facility] HospitalIn the event this information is protected by the Federal Confidentiality of Alcohol and Drug Abuse Patient Records regulations: The Federal rules restrict any use of the information to criminally investigate or prosecute any alcohol or drug abuse patient.[facility] HospitalIn the event this information is protected by the Federal Confidentiality of Alcohol and Drug Abuse Patient Records regulations: The Federal rules restrict any use of the information to criminally investigate or prosecute any alcohol or drug abuse patient.[facility] HospitalIn the event this information is protected by the Federal Confidentiality of Alcohol and Drug Abuse Patient Records regulations: The Federal rules restrict any use of the information to criminally investigate or prosecute any alcohol or drug abuse patient.[facility] HospitalIn the event this information is protected by the Federal Confidentiality of Alcohol and Drug Abuse Patient Records regulations: The Federal rules restrict any use of the information to criminally investigate or prosecute any alcohol or drug abuse patient.[facility] HospitalIn the event this information is protected by the Federal Confidentiality of Alcohol and Drug Abuse Patient Records regulations: The Federal rules restrict any use of the information to criminally investigate or prosecute any alcohol or drug abuse patient.[facility] HospitalIn the event this information is protected by the Federal Confidentiality of Alcohol and Drug Abuse Patient Records regulations: The Federal rules restrict any use of the information to criminally investigate or prosecute any alcohol or drug abuse patient.[facility] HospitalIn the event this information is protected by the Federal Confidentiality of Alcohol and Drug Abuse Patient Records regulations: The Federal rules restrict any use of the information to criminally investigate or prosecute any alcohol or drug abuse patient.[facility] HospitalIn the event this information is protected by the Federal Confidentiality of Alcohol and Drug Abuse Patient Records regulations: The Federal rules restrict any use of the information to criminally investigate or prosecute any alcohol or drug abuse patient.[facility] HospitalIn the event this information is protected by the Federal Confidentiality of Alcohol and Drug Abuse Patient Records regulations: The Federal rules restrict any use of the information to criminally investigate or prosecute any alcohol or drug abuse patient.[facility] HospitalIn the event this information is protected by the Federal Confidentiality of Alcohol and Drug Abuse Patient Records regulations: The Federal rules restrict any use of the information to criminally investigate or prosecute any alcohol or drug abuse patient.[facility] HospitalIn the event this information is protected by the Federal Confidentiality of Alcohol and Drug Abuse Patient Records regulations: The Federal rules restrict any use of the information to criminally investigate or prosecute any alcohol or drug abuse patient.[facility] HospitalIn the event this information is protected by the Federal Confidentiality of Alcohol and Drug Abuse Patient Records regulations: The Federal rules restrict any use of the information to criminally investigate or prosecute any alcohol or drug abuse patient.[facility] HospitalIn the event this information is protected by the Federal Confidentiality of Alcohol and Drug Abuse Patient Records regulations: The Federal rules restrict any use of the information to criminally investigate or prosecute any alcohol or drug abuse patient.[facility] HospitalIn the event this information is protected by the Federal Confidentiality of Alcohol and Drug Abuse Patient Records regulations: The Federal rules restrict any use of the information to criminally investigate or prosecute any alcohol or drug abuse patient.[facility] HospitalIn the event this information is protected by the Federal Confidentiality of Alcohol and Drug Abuse Patient Records regulations: The Federal rules restrict any use of the information to criminally investigate or prosecute any alcohol or drug abuse patient.[facility] HospitalIn the event this information is protected by the Federal Confidentiality of Alcohol and Drug Abuse Patient Records regulations: The Federal rules restrict any use of the information to criminally investigate or prosecute any alcohol or drug abuse patient.[facility] HospitalIn the event this information is protected by the Federal Confidentiality of Alcohol and Drug Abuse Patient Records regulations: The Federal rules restrict any use of the information to criminally investigate or prosecute any alcohol or drug abuse patient.[facility] HospitalIn the event this information is protected by the Federal Confidentiality of Alcohol and Drug Abuse Patient Records regulations: The Federal rules restrict any use of the information to criminally investigate or prosecute any alcohol or drug abuse patient.[facility] HospitalIn the event this information is protected by the Federal Confidentiality of Alcohol and Drug Abuse Patient Records regulations: The Federal rules restrict any use of the information to criminally investigate or prosecute any alcohol or drug abuse patient.[facility] HospitalIn the event this information is protected by the Federal Confidentiality of Alcohol and Drug Abuse Patient Records regulations: The Federal rules restrict any use of the information to criminally investigate or prosecute any alcohol or drug abuse patient.[facility] HospitalIn the event this information is protected by the Federal Confidentiality of Alcohol and Drug Abuse Patient Records regulations: The Federal rules restrict any use of the information to criminally investigate or prosecute any alcohol or drug abuse patient.[facility] HospitalIn the event this information is protected by the Federal Confidentiality of Alcohol and Drug Abuse Patient Records regulations: The Federal rules restrict any use of the information to criminally investigate or prosecute any alcohol or drug abuse patient.[facility] HospitalIn the event this information is protected by the Federal Confidentiality of Alcohol and Drug Abuse Patient Records regulations: The Federal rules restrict any use of the information to criminally investigate or prosecute any alcohol or drug abuse patient.[facility] HospitalIn the event this information is protected by the Federal Confidentiality of Alcohol and Drug Abuse Patient Records regulations: The Federal rules restrict any use of the information to criminally investigate or prosecute any alcohol or drug abuse patient.[facility] HospitalIn the event this information is protected by the Federal Confidentiality of Alcohol and Drug Abuse Patient Records regulations: The Federal rules restrict any use of the information to criminally investigate or prosecute any alcohol or drug abuse patient.[facility] HospitalIn the event this information is protected by the Federal Confidentiality of Alcohol and Drug Abuse Patient Records regulations: The Federal rules restrict any use of the information to criminally investigate or prosecute any alcohol or drug abuse patient.[facility] HospitalIn the event this information is protected by the Federal Confidentiality of Alcohol and Drug Abuse Patient Records regulations: The Federal rules restrict any use of the information to criminally investigate or prosecute any alcohol or drug abuse patient.[facility] HospitalIn the event this information is protected by the Federal Confidentiality of Alcohol and Drug Abuse Patient Records regulations: The Federal rules restrict any use of the information to criminally investigate or prosecute any alcohol or drug abuse patient.[facility] HospitalIn the event this information is protected by the Federal Confidentiality of Alcohol and Drug Abuse Patient Records regulations: The Federal rules restrict any use of the information to criminally investigate or prosecute any alcohol or drug abuse patient.[facility] HospitalIn the event this information is protected by the Federal Confidentiality of Alcohol and Drug Abuse Patient Records regulations: The Federal rules restrict any use of the information to criminally investigate or prosecute any alcohol or drug abuse patient.[facility] HospitalIn the event this information is protected by the Federal Confidentiality of Alcohol and Drug Abuse Patient Records regulations: The Federal rules restrict any use of the information to criminally investigate or prosecute any alcohol or drug abuse patient.[facility] HospitalIn the event this information is protected by the Federal Confidentiality of Alcohol and Drug Abuse Patient Records regulations: The Federal rules restrict any use of the information to criminally investigate or prosecute any alcohol or drug abuse patient.[facility] HospitalIn the event this information is protected by the Federal Confidentiality of Alcohol and Drug Abuse Patient Records regulations: The Federal rules restrict any use of the information to criminally investigate or prosecute any alcohol or drug abuse patient.[facility] HospitalIn the event this information is protected by the Federal Confidentiality of Alcohol and Drug Abuse Patient Records regulations: The Federal rules restrict any use of the information to criminally investigate or prosecute any alcohol or drug abuse patient.[facility] HospitalIn the event this information is protected by the Federal Confidentiality of Alcohol and Drug Abuse Patient Records regulations: The Federal rules restrict any use of the information to criminally investigate or prosecute any alcohol or drug abuse patient.[facility] HospitalIn the event this information is protected by the Federal Confidentiality of Alcohol and Drug Abuse Patient Records regulations: The Federal rules restrict any use of the information to criminally investigate or prosecute any alcohol or drug abuse patient.[facility] HospitalIn the event this information is protected by the Federal Confidentiality of Alcohol and Drug Abuse Patient Records regulations: The Federal rules restrict any use of the information to criminally investigate or prosecute any alcohol or drug abuse patient.[facility] HospitalIn the event this information is protected by the Federal Confidentiality of Alcohol and Drug Abuse Patient Records regulations: The Federal rules restrict any use of the information to criminally investigate or prosecute any alcohol or drug abuse patient.[facility] HospitalIn the event this information is protected by the Federal Confidentiality of Alcohol and Drug Abuse Patient Records regulations: The Federal rules restrict any use of the information to criminally investigate or prosecute any alcohol or drug abuse patient.[facility] HospitalIn the event this information is protected by the Federal Confidentiality of Alcohol and Drug Abuse Patient Records regulations: The Federal rules restrict any use of the information to criminally investigate or prosecute any alcohol or drug abuse patient.[facility] HospitalIn the event this information is protected by the Federal Confidentiality of Alcohol and Drug Abuse Patient Records regulations: The Federal rules restrict any use of the information to criminally investigate or prosecute any alcohol or drug abuse patient.[facility] HospitalIn the event this information is protected by the Federal Confidentiality of Alcohol and Drug Abuse Patient Records regulations: The Federal rules restrict any use of the information to criminally investigate or prosecute any alcohol or drug abuse patient.[facility] HospitalIn the event this information is protected by the Federal Confidentiality of Alcohol and Drug Abuse Patient Records regulations: The Federal rules restrict any use of the information to criminally investigate or prosecute any alcohol or drug abuse patient.[facility] HospitalIn the event this information is protected by the Federal Confidentiality of Alcohol and Drug Abuse Patient Records regulations: The Federal rules restrict any use of the information to criminally investigate or prosecute any alcohol or drug abuse patient.[facility] HospitalIn the event this information is protected by the Federal Confidentiality of Alcohol and Drug Abuse Patient Records regulations: The Federal rules restrict any use of the information to criminally investigate or prosecute any alcohol or drug abuse patient.[facility] HospitalIn the event this information is protected by the Federal Confidentiality of Alcohol and Drug Abuse Patient Records regulations: The Federal rules restrict any use of the information to criminally investigate or prosecute any alcohol or drug abuse patient.[facility] HospitalIn the event this information is protected by the Federal Confidentiality of Alcohol and Drug Abuse Patient Records regulations: The Federal rules restrict any use of the information to criminally investigate or prosecute any alcohol or drug abuse patient.[facility] HospitalIn the event this information is protected by the Federal Confidentiality of Alcohol and Drug Abuse Patient Records regulations: The Federal rules restrict any use of the information to criminally investigate or prosecute any alcohol or drug abuse patient.[facility] HospitalIn the event this information is protected by the Federal Confidentiality of Alcohol and Drug Abuse Patient Records regulations: The Federal rules restrict any use of the information to criminally investigate or prosecute any alcohol or drug abuse patient.[facility] HospitalIn the event this information is protected by the Federal Confidentiality of Alcohol and Drug Abuse Patient Records regulations: The Federal rules restrict any use of the information to criminally investigate or prosecute any alcohol or drug abuse patient.[facility] HospitalIn the event this information is protected by the Federal Confidentiality of Alcohol and Drug Abuse Patient Records regulations: The Federal rules restrict any use of the information to criminally investigate or prosecute any alcohol or drug abuse patient.[facility] HospitalIn the event this information is protected by the Federal Confidentiality of Alcohol and Drug Abuse Patient Records regulations: The Federal rules restrict any use of the information to criminally investigate or prosecute any alcohol or drug abuse patient.[facility] HospitalIn the event this information is protected by the Federal Confidentiality of Alcohol and Drug Abuse Patient Records regulations: The Federal rules restrict any use of the information to criminally investigate or prosecute any alcohol or drug abuse patient.[facility] HospitalIn the event this information is protected by the Federal Confidentiality of Alcohol and Drug Abuse Patient Records regulations: The Federal rules restrict any use of the information to criminally investigate or prosecute any alcohol or drug abuse patient.[facility] HospitalIn the event this information is protected by the Federal Confidentiality of Alcohol and Drug Abuse Patient Records regulations: The Federal rules restrict any use of the information to criminally investigate or prosecute any alcohol or drug abuse patient.[facility] HospitalIn the event this information is protected by the Federal Confidentiality of Alcohol and Drug Abuse Patient Records regulations: The Federal rules restrict any use of the information to criminally investigate or prosecute any alcohol or drug abuse patient.[facility] HospitalIn the event this information is protected by the Federal Confidentiality of Alcohol and Drug Abuse Patient Records regulations: The Federal rules restrict any use of the information to criminally investigate or prosecute any alcohol or drug abuse patient.[facility] HospitalIn the event this information is protected by the Federal Confidentiality of Alcohol and Drug Abuse Patient Records regulations: The Federal rules restrict any use of the information to criminally investigate or prosecute any alcohol or drug abuse patient.[facility] HospitalIn the event this information is protected by the Federal Confidentiality of Alcohol and Drug Abuse Patient Records regulations: The Federal rules restrict any use of the information to criminally investigate or prosecute any alcohol or drug abuse patient.[facility] HospitalIn the event this information is protected by the Federal Confidentiality of Alcohol and Drug Abuse Patient Records regulations: The Federal rules restrict any use of the information to criminally investigate or prosecute any alcohol or drug abuse patient.[facility] HospitalIn the event this information is protected by the Federal Confidentiality of Alcohol and Drug Abuse Patient Records regulations: The Federal rules restrict any use of the information to criminally investigate or prosecute any alcohol or drug abuse patient.[facility] HospitalIn the event this information is protected by the Federal Confidentiality of Alcohol and Drug Abuse Patient Records regulations: The Federal rules restrict any use of the information to criminally investigate or prosecute any alcohol or drug abuse patient.[facility] HospitalIn the event this information is protected by the Federal Confidentiality of Alcohol and Drug Abuse Patient Records regulations: The Federal rules restrict any use of the information to criminally investigate or prosecute any alcohol or drug abuse patient.[facility] HospitalIn the event this information is protected by the Federal Confidentiality of Alcohol and Drug Abuse Patient Records regulations: The Federal rules restrict any use of the information to criminally investigate or prosecute any alcohol or drug abuse patient.[facility] HospitalIn the event this information is protected by the Federal Confidentiality of Alcohol and Drug Abuse Patient Records regulations: The Federal rules restrict any use of the information to criminally investigate or prosecute any alcohol or drug abuse patient.[facility] HospitalIn the event this information is protected by the Federal Confidentiality of Alcohol and Drug Abuse Patient Records regulations: The Federal rules restrict any use of the information to criminally investigate or prosecute any alcohol or drug abuse patient.[facility] HospitalIn the event this information is protected by the Federal Confidentiality of Alcohol and Drug Abuse Patient Records regulations: The Federal rules restrict any use of the information to criminally investigate or prosecute any alcohol or drug abuse patient.[facility] HospitalIn the event this information is protected by the Federal Confidentiality of Alcohol and Drug Abuse Patient Records regulations: The Federal rules restrict any use of the information to criminally investigate or prosecute any alcohol or drug abuse patient.[facility] HospitalIn the event this information is protected by the Federal Confidentiality of Alcohol and Drug Abuse Patient Records regulations: The Federal rules restrict any use of the information to criminally investigate or prosecute any alcohol or drug abuse patient.[facility] HospitalIn the event this information is protected by the Federal Confidentiality of Alcohol and Drug Abuse Patient Records regulations: The Federal rules restrict any use of the information to criminally investigate or prosecute any alcohol or drug abuse patient.[facility] HospitalIn the event this information is protected by the Federal Confidentiality of Alcohol and Drug Abuse Patient Records regulations: The Federal rules restrict any use of the information to criminally investigate or prosecute any alcohol or drug abuse patient.[facility] HospitalIn the event this information is protected by the Federal Confidentiality of Alcohol and Drug Abuse Patient Records regulations: The Federal rules restrict any use of the information to criminally investigate or prosecute any alcohol or drug abuse patient.[facility] HospitalIn the event this information is protected by the Federal Confidentiality of Alcohol and Drug Abuse Patient Records regulations: The Federal rules restrict any use of the information to criminally investigate or prosecute any alcohol or drug abuse patient.[facility] HospitalIn the event this information is protected by the Federal Confidentiality of Alcohol and Drug Abuse Patient Records regulations: The Federal rules restrict any use of the information to criminally investigate or prosecute any alcohol or drug abuse patient.[facility] HospitalIn the event this information is protected by the Federal Confidentiality of Alcohol and Drug Abuse Patient Records regulations: The Federal rules restrict any use of the information to criminally investigate or prosecute any alcohol or drug abuse patient.[facility] HospitalIn the event this information is protected by the Federal Confidentiality of Alcohol and Drug Abuse Patient Records regulations: The Federal rules restrict any use of the information to criminally investigate or prosecute any alcohol or drug abuse patient.[facility] HospitalIn the event this information is protected by the Federal Confidentiality of Alcohol and Drug Abuse Patient Records regulations: The Federal rules restrict any use of the information to criminally investigate or prosecute any alcohol or drug abuse patient.[facility] HospitalIn the event this information is protected by the Federal Confidentiality of Alcohol and Drug Abuse Patient Records regulations: The Federal rules restrict any use of the information to criminally investigate or prosecute any alcohol or drug abuse patient.[facility] HospitalIn the event this information is protected by the Federal Confidentiality of Alcohol and Drug Abuse Patient Records regulations: The Federal rules restrict any use of the information to criminally investigate or prosecute any alcohol or drug abuse patient.[facility] HospitalIn the event this information is protected by the Federal Confidentiality of Alcohol and Drug Abuse Patient Records regulations: The Federal rules restrict any use of the information to criminally investigate or prosecute any alcohol or drug abuse patient.[facility] HospitalIn the event this information is protected by the Federal Confidentiality of Alcohol and Drug Abuse Patient Records regulations: The Federal rules restrict any use of the information to criminally investigate or prosecute any alcohol or drug abuse patient.[facility] HospitalIn the event this information is protected by the Federal Confidentiality of Alcohol and Drug Abuse Patient Records regulations: The Federal rules restrict any use of the information to criminally investigate or prosecute any alcohol or drug abuse patient.[facility] HospitalIn the event this information is protected by the Federal Confidentiality of Alcohol and Drug Abuse Patient Records regulations: The Federal rules restrict any use of the information to criminally investigate or prosecute any alcohol or drug abuse patient.[facility] HospitalIn the event this information is protected by the Federal Confidentiality of Alcohol and Drug Abuse Patient Records regulations: The Federal rules restrict any use of the information to criminally investigate or prosecute any alcohol or drug abuse patient.[facility] HospitalIn the event this information is protected by the Federal Confidentiality of Alcohol and Drug Abuse Patient Records regulations: The Federal rules restrict any use of the information to criminally investigate or prosecute any alcohol or drug abuse patient.[facility] HospitalIn the event this information is protected by the Federal Confidentiality of Alcohol and Drug Abuse Patient Records regulations: The Federal rules restrict any use of the information to criminally investigate or prosecute any alcohol or drug abuse patient.[facility] HospitalIn the event this information is protected by the Federal Confidentiality of Alcohol and Drug Abuse Patient Records regulations: The Federal rules restrict any use of the information to criminally investigate or prosecute any alcohol or drug abuse patient.[facility] HospitalIn the event this information is protected by the Federal Confidentiality of Alcohol and Drug Abuse Patient Records regulations: The Federal rules restrict any use of the information to criminally investigate or prosecute any alcohol or drug abuse patient.[facility] HospitalIn the event this information is protected by the Federal Confidentiality of Alcohol and Drug Abuse Patient Records regulations: The Federal rules restrict any use of the information to criminally investigate or prosecute any alcohol or drug abuse patient.[facility] HospitalIn the event this information is protected by the Federal Confidentiality of Alcohol and Drug Abuse Patient Records regulations: The Federal rules restrict any use of the information to criminally investigate or prosecute any alcohol or drug abuse patient.[facility] HospitalIn the event this information is protected by the Federal Confidentiality of Alcohol and Drug Abuse Patient Records regulations: The Federal rules restrict any use of the information to criminally investigate or prosecute any alcohol or drug abuse patient.[facility] HospitalIn the event this information is protected by the Federal Confidentiality of Alcohol and Drug Abuse Patient Records regulations: The Federal rules restrict any use of the information to criminally investigate or prosecute any alcohol or drug abuse patient.[facility] HospitalIn the event this information is protected by the Federal Confidentiality of Alcohol and Drug Abuse Patient Records regulations: The Federal rules restrict any use of the information to criminally investigate or prosecute any alcohol or drug abuse patient.[facility] HospitalIn the event this information is protected by the Federal Confidentiality of Alcohol and Drug Abuse Patient Records regulations: The Federal rules restrict any use of the information to criminally investigate or prosecute any alcohol or drug abuse patient.[facility] Reason for Visit (unrecogniz ed section and content) Reason Onset Date Comments Refill Request 08/14/2021 Reason Comments Refill Request Reason Comments Pain (foot) right x 1 day, fall Reason Onset Date Comments Refill Request 10/13/2021 Reason Comments Dysuria c/o itching Reason Onset Date Comments Refill Request 11/15/2021 Reason Comments Follow Up Reason Onset Date Comments Refill Request 11/25/2021 Reason Comments Yearly Exam Reason Onset Date Comments Refill Request Refill Request 01/09/2022 Reason Comments Pain Neck and back Reason Onset Date Comments Refill Request 02/03/2022 Reason Comments Med Change Request Reason Comments Back Pain Reason Onset Date Comments Refill Request 03/03/2022 Reason Comments Results Reason Comments Ear Pain Bilateral ear pain, nasal congestion, x4 days. 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 Reque sting adjustment Reason Comments Dizziness Reason Comments Refill Request Reason Comments Results Xray Reason Comments Acute Visit Started last week wi th diarrhea, nausea, stomach bloating, some vomiting and abd pain Reason Onset Date Comments Refill Request 11/16/2023 Reason Comments Acute Visit Low back pain, cramp ing and diarrhea Reason Comments Results Abdomen Xray Reason Comments Results Stool Reason Comments Colon consult Specialty Diagnoses / Procedures Referred By Delilah bravo Referred To Contact General Surgery Diagnoses Occult blood positive stool Procedures CONSULT TO GENERAL SURGERY OFFICE/OUTPATIENT [facility] 60 MINUTES Faith Deluna, MEDICAL ONCOLOGY PHYSICIAN.AGENCY OWNER [address] [place] [address] Referral ID Status Reason Start Date Expiration Date V isits Requested Visits Authorized [id number] Closed PCP Requested Referral 12/23/2023 12/22/2024 1 1 Reason Comments fax pain management referral to Dr Huang kirby Reason Onset Date Comments Refill Request 01/13/2024 Reason Comments FMLA Paperwork Reason Comments Depression Anxiety Med Management Reason Comments Patient Question Reason Comments Well Woman Reason Comments Follow Up Review colonoscopy r esults. Reason Onset Date Comments Refill Request 03/02/2024 Reason Comments Sinus Problem sinus pressure, drai nage, ear pain x 2 days, sore throat x 6 days Reason Comments Flu Like Symptoms PEREZ, bodyaches, fatig ue and SOB x 6 days Reason Comments Urinary Problem Frequency, burning w ith urination x 5 days Reason Comments Results Urine Cx mixed Reason Onset Date Comments Refill Request 05/08/2024 Reason Onset Date Comments Refill Request 06/06/2024 Reason Comments Rash Rash all over body x 3 days, PEREZ x 1 day, cold symptoms x 3 weeks Reason Comments Follow Up Employer wants FMLA forms filled out. Express care follow up. Still sick, lost taste and smell. Out of work since Thursday. 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 Tender. Gets red and inflamed. No drainage. Mary Austin LPN Reason Onset Date Comments Refill Request 07/25/2024 Reason Comments Patient Update Reason Comments Derm Problem cyst Reason Comments Consult cyst Specialty Diagnoses / Procedures Referred By Delilah bravo Referred To Contact General Surgery Diagnoses Epidermal inclusion cyst Procedures CONSULT TO GENERAL SURGERY OFFICE/OUTPATIENT [facility] MDM 60 MINUTES Bettina Fuentes APRN.AGENCY OWNER [address] [place] [address] Phone: tel: fax: Referral ID Status Reason Start Date Expiration Date V isits Requested Visits Authorized [id number] Closed PCP Requested Referral 08/02/2024 08/01/2025 1 1 Reason Comments Follow Up Wound care Reason Comments Dizziness 2 episodes within th e last week Reason Onset Date Comments Refill Request 08/14/2024 Reason Onset Date Comments Refill Request 08/16/2024 Reason Comments Anxiety Depression Med Management Reason Onset Date Comments Refill Request 12/11/2024 Care Teams (unrecognized sec tion and content) Mold Parter Relationship Specialty Start Date End Date Mandie Garcia PA-C [address] [place], [place] [id number] PCP - General Family Practice 01/15/17 Mold Parter Relationship Specialty Start Date End Date Mandie Garcia PA-C [address] [place] [address] PCP - General Family Practice 01/15/17 Mold Parter Relationship Specialty Start Date End Date Mandie Garcia PA-C [address] [place] [place] [address] PCP - General Family Practice 01/15/17 Mold Parter Relationship Specialty Start Date End Date Mandie Garcia PA-C [address] [place] [address] PCP - General Family Practice 01/15/17 Mold Parter Relationship Specialty Start Date End Date Mandie Garcia PA-C [address] [place] [address] PCP - General Family Practice 01/15/17 Mold Parter Relationship Specialty Start Date End Date Mandie Garcia PA-C [address] [place] [address] PCP - General Family Practice 01/15/17 Mold Parter Relationship Specialty Start Date End Date Mandie Garcia PA-C [address] [place] [place] [address] PCP - General Family Practice 01/15/17 Mold Parter Relationship Specialty Start Date End Date Mandie Garcia PA-C [address] [place] [address] PCP - General Family Practice 01/15/17 Mold Parter Relationship Specialty Start Date End Date Mandie Garcia PA-C [address] [place] [address] PCP - General Family Practice 01/15/17 Mold Parter Relationship Specialty Start Date End Date Mandie Garcia PA-C [address] [place] [address] PCP - General Family Practice 01/15/17 Mold Parter Relationship Specialty Start Date End Date Mandie Garcia PA-C [address] [place] [address] PCP - General Family Medicine 01/15/17 Mold Parter Relationship Specialty Start Date End Date Mandie Garcia PA-C [address] [place] [place] [address] PCP - General Family Medicine 01/15/17 Mold Parter Relationship Specialty Start Date End Date Mandie Garcia PA-C [address] [place] [address] PCP - General Family Medicine 01/15/17 Mold Parter Relationship Specialty Start Date End Date Mandie Garcia PA-C [address] [place] [address] PCP - General Family Medicine 01/15/17 Mold Parter Relationship Specialty Start Date End Date Mandie Garcia PA-C [address] [place] [address] PCP - General Family Medicine 01/15/17 Mold Parter Relationship Specialty Start Date End Date Mandie Garcia PA-C [address] [place] [address] PCP - General Family Medicine 01/15/17 Mold Parter Relationship Specialty Start Date End Date Mandie Garcia PA-C [address] [place] [address] PCP - General Family Medicine 01/15/17 Mold Parter Relationship Specialty Start Date End Date Mandie Garcia PA-C [address] [place] [place] [address] PCP - General Family Medicine 01/15/17 Team Status: Active Member Role Status Dates OG Mina Family Provider Active OG Mina Primary Care Provider Active Team Status: Inactive Member Role Status OG Tapia Primary Care Provider Active Dr. Raulito Chang MD Emergency Provider Active Mold Parter Relationship Specialty Start Date End Date Mandie Garcia PA-C [address] [place] [address] PCP - General Family Medicine 01/15/17 Mold Parter Relationship Specialty Start Date End Date Mandie Garcia PA-C [address] [place] [address] PCP - General Family Medicine 01/15/17 Mold Parter Relationship Specialty Start Date End Date Mandie Garcia PA-C [address] [place] [address] PCP - General Family Medicine 01/15/17 Mold Parter Relationship Specialty Start Date End Date Mandie Garcia PA-C [address] [place] [address] PCP - General Family Medicine 01/15/17 Mold Parter Relationship Specialty Start Date End Date Mandie Garcia PA-C [address] [place] [address] PCP - General Family Medicine 01/15/17 Mold Parter Relationship Specialty Start Date End Date Mandie Garcia PA-C [address] [place] [address] PCP - General Family Medicine 01/15/17 Mold Parter Relationship Specialty Start Date End Date Mandie Garcia PA-C [address] [place] [address] PCP - General Family Medicine 01/15/17 Mold Parter Relationship Specialty Start Date End Date Mandie Garcia PA-C [address] [place] [address] PCP - General Family Medicine 01/15/17 Team Status: Inactive Member Role Status Dates Mandie FOLEY PA Primary Care Provider, Referri ng Provider Active OG Hanna Attending Provider Active Team Status: Inactive Member Role Status Dates Mandie FOLEY PA Primary Care Provider Active Dr. Tung Edwards MD Attending Provider Active Team Status: Active Member Role Status Dates Employee Health Attending Provider Active Team Status: Inactive Member Role Status Dates Mandie FOLEY PA Primary Care Provider Active Dr. Raulito Chang MD Attending Provider, Emergency Provider Active Team Status: Inactive Member Role Status Dates Mandie FOLEY PA Primary Care Provider Active Dr. Mary Esparza MD Emergency Provider Active Team Status: Inactive Member Role Status Dates Mandie FOLEY PA Primary Care Provider, Referri ng Provider Active Jermaine Levy MD Attending Provider Active Team Status: Inactive Member Role Status Dates Mandie FOLEY PA Primary Care Provider Active Ino FOLEY PA Attending Provider, Referring Prov ider Active Team Status: Inactive Member Role Status Dates Mandie Kelvin FOLEY PA Primary Care Provider Active Dr. Mary Esparza MD Attending Provider, Emergency Provider Active Mold Parter Relationship Specialty Start Date End Date Mandie Garcia PA-C [address] [place] [address] PCP - General Family Medicine 01/15/17 Mold Parter Relationship Specialty Start Date End Date Mandie Garcia PA-C [address] [place] [address] PCP - General Family Medicine 01/15/17 Mold Parter Relationship Specialty Start Date End Date Mandie Garcia PA-C [address] [place], [place] [id number] PCP - General Family Medicine 01/15/17 Mold Parter Relationship Specialty Start Date End Date Mandie Garcia PA-C [address] [place] [address] PCP - General Family Medicine 01/15/17 Mold Parter Relationship Specialty Start Date End Date Mandie Garcia PA-C [address] [place] [address] PCP - General Family Medicine 01/15/17 Mold Parter Relationship Specialty Start Date End Date Mandie Garcia PA-C [address] [place] [address] PCP - General Family Medicine 01/15/17 Mold Parter Relationship Specialty Start Date End Date Mandie Garcia PA-C [address] [place] [address] PCP - General Family Medicine 01/15/17 Mold Parter Relationship Specialty Start Date End Date Mandie Garcia PA-C [address] [place] [address] PCP - General Family Medicine 01/15/17 Mold Parter Relationship Specialty Start Date End Date Mandie Garcia PA-C [address] [place] [address] PCP - General Family Medicine 01/15/17 Mold Parter Relationship Specialty Start Date End Date Mandie Garcia PA-C [address] [place] [address] PCP - General Family Medicine 01/15/17 Mold Parter Relationship Specialty Start Date End Date Mandie Garcia PA-C [address] [place] [address] PCP - General Family Medicine 01/15/17 Mold Parter Relationship Specialty Start Date End Date Mandie Garcia PA-C [address] [place] [address] PCP - General Family Medicine 01/15/17 Mold Parter Relationship Specialty Start Date End Date Mandie Garcia PA-C [address] [place] [address] PCP - General Family Medicine 01/15/17 Mold Parter Relationship Specialty Start Date End Date Mandie Garcia PA-C [address] [place] [address] PCP - General Family Medicine 01/15/17 Mold Parter Relationship Specialty Start Date End Date Mandie Garcia PA-C [address] [place] [address] PCP - General Family Medicine 01/15/17 Mold Parter Relationship Specialty Start Date End Date Mandie Garcia PA-C [address] [place] [address] PCP - General Family Medicine 01/15/17 Mold Parter Relationship Specialty Start Date End Date Mandie Garcia PA-C [address] [place] [address] PCP - General Family Medicine 01/15/17 Mold Parter Relationship Specialty Start Date End Date Mandie Garcia PA-C [address] [place] [address] PCP - General Family Medicine 01/15/17 Mold Parter Relationship Specialty Start Date End Date Mandie Garcia PA-C [address] [place] [address] PCP - General Family Medicine 01/15/17 Mold Parter Relationship Specialty Start Date End Date Mandie Garcia PA-C [address] [place] [address] PCP - General Family Medicine 01/15/17 Mold Parter Relationship Specialty Start Date End Date Mandie Garcia PA-C [address] [place] [address] PCP - General Family Medicine 01/15/17 Mold Parter Relationship Specialty Start Date End Date Mandie Garcia PA-C [address] [place] [address] PCP - General Family Medicine 01/15/17 Mold Parter Relationship Specialty Start Date End Date Mandie Garcia PA-C [address] [place] [address] PCP - General Family Medicine 01/15/17 Mold Parter Relationship Specialty Start Date End Date Mandie Garcia PA-C [address] [place] [address] PCP - General Family Medicine 01/15/17 Mold Parter Relationship Specialty Start Date End Date Mandie Garcia PA-C [address] [place] [address] PCP - General Family Medicine 01/15/17 Mold Parter Relationship Specialty Start Date End Date Mandie Garcia PA-C [address] [facility] [address] PCP - General Family Medicine 01/15/17 Mold Parter Relationship Specialty Start Date End Date Mandie Garcia PA-C [address] [place] [address] PCP - General Family Medicine 01/15/17 Mold Parter Relationship Specialty Start Date End Date Mandie Garcia PA-C [address] [place] [address] PCP - General Family Medicine 01/15/17 Mold Parter Relationship Specialty Start Date End Date Mandie Garcia PA-C [address] [place] [address] PCP - General Family Medicine 01/15/17 Mold Parter Relationship Specialty Start Date End Date Mandie Garcia PA-C [address] [place] [address] PCP - General Family Medicine 01/15/17 Mold Parter Relationship Specialty Start Date End Date Mandie Garcia PA-C [address] [place] [address] PCP - General Family Medicine 01/15/17 Mold Parter Relationship Specialty Start Date End Date Mandie Garcia PA-C [address] [place] [address] PCP - General Family Medicine 01/15/17 Mold Parter Relationship Specialty Start Date End Date Mandie Garcia PA-C [address] [place] [address] PCP - General Family Medicine 01/15/17 Mold Parter Relationship Specialty Start Date End Date Mandie Garcia PA-C [address] [place] [address] PCP - General Family Medicine 01/15/17 Mold Parter Relationship Specialty Start Date End Date Esthela Garcia PA-C PCP - General Family Medicine 01/15/17 Mold Parter Relationship Specialty Start Date End Date Esthela Garcia PA-C PCP - General Family Medicine 01/15/17 Mold Parter Relationship Specialty Start Date End Date Esthela Garcia PA-C PCP - General Family Medicine 01/15/17 Mold Parter Relationship Specialty Start Date End Date Esthela Garcia PA-C PCP - General Family Medicine 01/15/17 Mold Parter Relationship Specialty Start Date End Date Bettina Fuentes MEDICAL ONCOLOGY PHYSICIAN.AGENCY OWNER [address] [place] [address] PCP - General Family Medicine 04/27/24 Mold Parter Relationship Specialty Start Date End Date Bettina Fuentes MEDICAL ONCOLOGY PHYSICIAN.AGENCY OWNER [address] [place] [address] PCP - General Family Medicine 04/27/24 Mold Parter Relationship Specialty Start Date End Date Bettina Fuentes MEDICAL ONCOLOGY PHYSICIAN.AGENCY OWNER [address] [place] [address] PCP - General Family Medicine 04/27/24 Mold Parter Relationship Specialty Start Date End Date Bettina Fuentes, MEDICAL ONCOLOGY PHYSICIAN.AGENCY OWNER [address] [place] [address] PCP - General Family Medicine 04/27/24 Mold Parter Relationship Specialty Start Date End Date Bettina Fuentes MEDICAL ONCOLOGY PHYSICIAN.AGENCY OWNER [address] [place] [address] PCP - General Family Medicine 04/27/24 Mold Parter Relationship Specialty Start Date End Date Bettina Fuentes MEDICAL ONCOLOGY PHYSICIAN.AGENCY OWNER [address] [place] [address] PCP - General Family Medicine 04/27/24 Mold Parter Relationship Specialty Start Date End Date Bettina Fuentes, MEDICAL ONCOLOGY PHYSICIAN.AGENCY OWNER [address] [place] [address] PCP - General Family Medicine 04/27/24 Mold Parter Relationship Specialty Start Date End Date Bettina Fuentes, MEDICAL ONCOLOGY PHYSICIAN.AGENCY OWNER [address] [place] [address] PCP - General Family Medicine 04/27/24 Mold Parter Relationship Specialty Start Date End Date Bettina Fuentes, MEDICAL ONCOLOGY PHYSICIAN.AGENCY OWNER [address] [place] [address] PCP - General Family Medicine 04/27/24 Mold Parter Relationship Specialty Start Date End Date Bettina Fuentes, MEDICAL ONCOLOGY PHYSICIAN.AGENCY OWNER [address] [place] [address] PCP - General Family Medicine 04/27/24 Mold Parter Relationship Specialty Start Date End Date Bettina Fuentes, MEDICAL ONCOLOGY PHYSICIAN.AGENCY OWNER [address] [place] [address] PCP - General Family Medicine 04/27/24 Mold Parter Relationship Specialty Start Date End Date Bettina Fuentes MEDICAL ONCOLOGY PHYSICIAN.AGENCY OWNER [address] [place] [address] PCP - General Family Medicine 04/27/24 Team Status: Active Member Role Status Dates FLORES Tee Primary Care Provider Active Team Status: Inactive Member Role Status Dates Dr. Corey Tristan MD Attending Provider Active Sta rt: June 27, 2024 End: June 27, 2024 Dr. Corey Tristan MD Emergency Provider Active Sta rt: June 27, 2024 End: June 27, 2024 Bettina Suppan , DERRICK FOLLOWER Primary Care Provider Active Start: June 27, 2024 End: June 27, 2024 Team Status: Inactive Member Role Status Dates Bettina Suppan , DERRICK FOLLOWER Primary Care Provider Active Start: June 28, 2024 End: June 28, 2024 Dr. Bo Fontenot DO Attending Provider Active Start: June 28, 2024 End: June 28, 2024 Dr. Bo Fontenot DO Emergency Provider Active Start: June 28, 2024 End: June 28, 2024 Team Status: Inactive Member Role Status Dates Bettina Suppan , DERRICK FOLLOWER Primary Care Provider Active Start: July 15, 2024 End: July 15, 2024 Dr. Roc Goldman DO Attending Provider Active Start: July 15, 2024 End: July 15, 2024 Team Status: Inactive Member Role Status Dates Bettina Suppan , DERRICK FOLLOWER Primary Care Provider Active Start: July 15, 2024 End: July 15, 2024 Bettina Suppan , DERRICK FOLLOWER Referring Provider Active Start: July 15, 2024 End: July 15, 2024 Lester FOLEY, PA Attending Provider Active Sta rt: July 15, 2024 End: July 15, 2024 Team Status: Inactive Member Role Status Dates Bettina Suppan , DERRICK FOLLOWER Primary Care Provider Active Start: July 18, 2024 End: July 18, 2024 Bettina Suppan , DERRICK FOLLOWER Referring Provider Active Start: July 18, 2024 End: July 18, 2024 Eddei FOLEY, PA Attending Provider Active Start: July 18, 2024 End: July 18, 2024 Team Status: Inactive Member Role Status Dates Bettina Suppan , DERRICK FOLLOWER Primary Care Provider Active Start: July 18, 2024 End: July 18, 2024 Dr. Chago Balderas DO Attending Provider Active Start: July 18, 2024 End: July 18, 2024 Dr. Chago Balderas DO Emergency Provider Active Start: July 18, 2024 End: July 18, 2024 Team Status: Active Member Role Status Dates Bettina Suppan , DERRICK FOLLOWER Primary Care Provider Active Start: August 18, 2024 Bettina Suppan , DERRICK FOLLOWER Attending Provider Active Start: August 18, 2024 Bettina Suppan , DERRICK FOLLOWER Referring Provider Active Start: August 18, 2024 Mold Parter Relationship Specialty Start Date End Date Bettina Fuentes APRN.AGENCY OWNER [address] [place] [address] PCP - General Family Medicine 04/27/24 Mold Parter Relationship Specialty Start Date End Date Bettina Fuentes MEDICAL ONCOLOGY PHYSICIAN.AGENCY OWNER [address] [facility], [place] [address] PCP - General [facility] Medicine 04/27/24 Team Status: Inactive Member Role Status Dates Bettina Suppan , DERRICK FOLLOWER Primary Care Provider Active Start: August 30, 2024 End: August 30, 2024 Bettina Suppan , DERRICK FOLLOWER Referring Provider Active Start: August 30, 2024 End: August 30, 2024 Jermaine Levy MD Attending Provider Active St art: August 30, 2024 End: August 30, 2024 Team Status: Inactive Member Role Status Dates Bettina Suppan , DERRICK FOLLOWER Primary Care Provider Active Start: September 06, 2024 End: September 06, 2024 Bettina Suppan , DERRICK FOLLOWER Referring Provider Active Start: September 06, 2024 End: September 06, 2024 Jermaine Levy MD Attending Provider Active St art: September 06, 2024 End: September 06, 2024 Team Status: Inactive Member Role Status Dates Bettina Suppan , [employer]ERRICK [employer]LLOWER Primary Care Provider Active Start: September 13, 2024 End: September 13, 2024 Bettina Suppan , DERRICK FOLLOWER Referring Provider Active Start: September 13, 2024 End: September 13, 2024 Jermaine Levy MD Attending Provider Active St art: September 13, 2024 End: September 13, 2024 Team Status: Inactive Member Role Status Dates Bettina Suppan , DERRICK FOLLOWER Primary Care Provider Active Start: October 05, 2024 End: October 05, 2024 Bettina Suppan , DERRICK FOLLOWER Attending Provider Active Start: October 05, 2024 End: October 05, 2024 Bettina Suppan , DERRICK FOLLOWER Referring Provider Active Start: October 05, 2024 End: October 05, 2024 Team Status: Active Member Role Status Dates Bettina Suppan , DERRICK FOLLOWER Primary Care Provider Active Start: October 31, 2024 Self Referred Attending Provider Active Start: 2024 Self Referred Referring Provider Active Start: 2024 Team Status: Active Member Role Status Dates Bettina Suppan , DERRICK FOLLOWER Primary Care Provider Active Start: October 31, 2024 Bettina Suppcharles , DERRICK FOLLOWER Referring Provider Active Start: October 31, 2024 REN Lindsay Attending Provider Active Start: October 31, 2024 Team Status: Inactive Member Role Status Dates Bettina Suppan , DERRICK FOLLOWER Primary Care Provider Active Start: October 31, 2024 End: October 31, 2024 Dr. Tung Edwards MD Attending Provider Active S tart: October 31, 2024 End: October 31, 2024 Team Status: Inactive Member Role Status Dates Bettina Suppan , DERRICK FOLLOWER Primary Care Provider Active Start: October 31, 2024 End: October 31, 2024 Bettina Suppcharles , DERRICK FOLLOWER Referring Provider Active Start: October 31, 2024 End: October 31, 2024 REN Lindsay Attending Provider Active Start: October 31, 2024 End: October 31, 2024 Goals (unrecognized section and content) Goals may be documented in a n alternate sectionGoals may be documented in an alternate sectionGoals may be documented in an alternate sectionGoals may be documented in an alternate sectionGoals may be documented in an alternate sectionGoals may be documented in an alternate sectionGoals may be documented in an alternate section FOR RECORDS PERTAINING TO PATIENTS WHO ARE OR HAVE BEEN ENROLLED IN A CHEMICAL DEPENDENCY/SUBSTANCEABUSE PROGRAM, SOME INFORMATION MAY BE OMITTED. This clinical summary was aggregated from multiple sources. Caution should be exercised in using it in the provision of clinical care. This summary normalizes information from multiple sources, and as a consequence, information in this document may materially change the coding, format and clinical context of patient data. In addition, data may be omitted in some cases. CLINICAL DECISIONS SHOULD BE BASED ON THE PRIMARY CLINICAL RECORDS. [facility] [employer] [facility]. provides no warranty or guarantee of the accuracy or completeness of information in this document.
--- NOTE | 2025-01-07 11:31 | EX.ED.DYSGE1 ---
HPI History of Present Illness Chief Complaint: Dizziness Narrative Narrative: Patient is a 44-year-old female with past medical history of vertigo, migraines, gastric bypass, cholecystectomy, GERD who presented to the emergency department chief complaint of dizziness and not feeling well. Patient states that she has had symptoms for approximately 3 days now and states that she has been very fatigued with this. Patient notes that she has had this happen in the past before was diagnosed with vertigo and this does feel very similar. Patient states that she followed with physical therapy at a nearby clinic and she states that they did several test and notes that she was diagnosed with not normal vertigo she states that the meclizine was not helping her over the last few days therefore she came here to be further evaluated. Patient denies any blood thinning medications and denies any head trauma. Patient states that she is trying to get scheduled for MRI of neck however she is having some difficulties with insurance. States that she recently had dry needling of her neck to try to help with her symptoms as well. [facility] Medical History Osteoarthritis of left knee Back pain Difficulty balancing Knee pain Chest pain Migraines Fatigue Stomach ulcer Shoulder pain SOB (shortness of breath) Arthritis Home Medications ?Medication ?Instructions ?Recorded ?Last Taken ?Type norgestimate 0.25 mg-ethinyl 1 ea PO DAILY bcp 12/10/18 01/06/25 History estradiol 0.035 mg tablet ascorbic acid (vitamin C) 500 mg 500 mg PO DAILY 01/07/25 01/07/25 History tablet (C-500) biotin 2,500 mcg capsule 2,500 mcg PO DAILY 01/07/25 01/07/25 History calcium-magnesium 300 mg-300 mg 1 tab PO DAILY 01/07/25 01/06/25 History tablet cholecalciferol (vitamin D3) 50 50 mcg PO DAILY 01/07/25 01/06/25 History mcg (2,000 unit) tablet (D3 DOTS) duloxetine 30 mg capsule,delayed 30 mg PO DAILY 01/07/25 01/07/25 History release gabapentin 300 mg capsule 300 mg PO DAILY 01/07/25 01/07/25 History lamotrigine 150 mg tablet 150 mg PO DAILY 01/07/25 01/07/25 History meclizine 25 mg tablet 25 mg PO Q6H PRN dizziness 01/07/25 01/07/25 History multivitamin (Daily Multi-Vitamin 1 tab PO DAILY 01/07/25 01/07/25 History tablet) Allergy/AdvReac Type Severity Reaction Status Date / Time lansoprazole (From Prevacid) Allergy Unknown Verified 01/07/25 11:02 rabeprazole (From Aciphex) Allergy Hives Verified 01/07/25 11:02 Sulfa (Sulfonamide Allergy Unknown Verified 01/07/25 11:02 Antibiotics) omeprazole (From Prilosec) AdvReac Other Verified 01/07/25 11:02 omeprazole magnesium (From AdvReac Other Verified 01/07/25 11:02 Prilosec) Surgical History Gastric bypass status for obesity History of cholecystectomy History of tonsillectomy History of bilateral breast reduction surgery Social History Smoking Status: Former smoker ROS ROS ED ROS Narrative Constitutional: Complains of dizziness and generalized fatigue denies any headaches, lightness, fevers, chills Eyes: Denies change in vision double vision blurry vision Cardiovascular: Denies chest pain Respiratory: Denies coughing wheezing shortness of breath Abdomen: Denies abdominal pain nausea vomit diarrhea : Denies any urinary symptoms Neurological: Denies any numbness, weakness, tingling Musculoskeletal: Denies back pain Skin: Denies any rashes or lesions EXAM Physical Exam Narrative Exam Narrative: General: Patient was lying in bed rest comfortably did not appear to be in acute distress Head: Atraumatic, normocephalic Eyes: PERRL bilaterally, EOMI bilaterally, no conjunctival injection noted Neck: Soft, supple, trachea midline Cardiovascular: Regular rate and rhythm Respiratory: Clear to auscultation bilaterally Extremities: +5/5 strength noted in the bilateral upper and lower extremities, radial pulses +2/1 about extremities, no pedal edema exam Neurological: Patient following commands knew that she was at [facility] the year is 2024. Patient completed finger-nose testing bilaterally without difficulty. Sensation grossly intact. NIH of 0 GCS 15. Patient states that when she turns her head to the left her symptoms do worsen Skin: Warm, dry, intact no rashes lesions noted Const Vital Signs: 01/07/25 11:03 01/07/25 13:02 Temperature 97.1 F L Temperature Source Temporal Pulse Rate 65 58 L Respiratory Rate 14 16 Blood Pressure 158/99 H 137/76 H Blood Pressure Mean 118 96 Pulse Ox 97 100 Oxygen Delivery Method Room Air Room Air MDM MDM MDM Narrative Medical decision making narrative: Patient is a 44-year-old female who presented to the emergency department chief complaint of vertigo. Patient did note that this does feel like her typical vertigo. On the differential diagnosis includes but not limited to aneurysm, previous stroke, benign positional paroxysmal vertigo, migraine headache, complex migraine. Once the workup is obtained reviewed she will be reevaluated. Patient denied fluids Reglan and Ativan. Patient states that she has not had any imaging of her head recently. Patient's CBC reviewed showed a white blood count of 11,000, hemoglobin 13, plate count 318. Patient sodium is 141, potassium 3.2 she will be given 40 mill equivalents of oral supplementation here in the emergency department, creatinine normal at 0.72. Patient's TSH was normal at 1.26. Patient CT head brain without contrast showed no acute intracranial normalities. Patient CTA head and neck showed no acute findings no significant stenosis no aneurysm or vascular malformation noted. Patient's EKG reviewed showed sinus bradycardia with a rate of 56 bpm. Patient ambulated to the bathroom a few times while in the emergency department without any difficulty. On reevaluation of the patient she is feeling much improved and would like to go home at this point in time. Once again she stated that this felt like her vertigo that she has had in the past. She was advised to follow-up with her doctors in the outpatient setting and return with worsening symptoms or any other concerns. She is agreeable to this plan all question concerns answered at bedside she was discharged home in stable condition. Patient states that she has meclizine and Zofran at home. Lab Data Labs: Laboratory Results - last 24 hr 01/07/25 11:55 WBC 11.2 H RBC 4.22 Hgb 13.0 Hct 39.0 MCV 92.4 MCH 30.8 MCHC 33.3 RDW Std Deviation 44.8 H RDW Coeff of Renan 13.2 Plt Count 318 MPV 10.6 Immature Gran % (Auto) 0.500 Neut % (Auto) 58.2 Lymph % (Auto) 31.8 Mclennan % (Auto) 7.3 Eos % (Auto) 1.7 Baso % (Auto) 0.5 Absolute Neuts (auto) 6.5 Absolute Lymphs (auto) 3.55 Nucleated RBC % 0 Sodium 141 Potassium 3.2 L Chloride 104 Carbon Dioxide 25.6 Anion Gap 12 BUN 12 Creatinine 0.72 Estim Creat Clear Calc 117.82 Est GFR (MDRD) Non-Af 105 BUN/Creatinine Ratio 17.1 Glucose 80 Calcium 8.6 TSH 1.260 Radiography Diagnostic Testing: Clinical Impression(s) from Imaging Studies Brain CT 01/07/25 12:13 IMPRESSION: No acute intracranial abnormality. Reading Location: [facility] Head/Neck CTA 01/07/25 12:16 IMPRESSION: Unremarkable CTA of the head and neck without significant stenosis. No aneurysm or vascular malformation. Reading Location: [facility] Discharge Plan Triage Chief Complaint: Dizziness ED Provider: Deangelo Thao Dx/Rx/DC Orders Clinical Impression: Anxiety disorder, Depression, Vertigo Prescriptions: No Action norgestimate-ethinyl estradiol 1 EACH tablet 1 ea PO DAILY duloxetine 30 mg capsule,delayed release(DR/EC) 30 mg PO DAILY gabapentin 300 mg capsule 300 mg PO DAILY lamotrigine 150 mg tablet 150 mg PO DAILY meclizine 25 mg tablet 25 mg PO Q6H PRN (Reason: dizziness) multivitamin [Daily Multi-Vitamin] Tablet 1 tab PO DAILY ascorbic acid (vitamin C) [C-500] 500 mg tablet 500 mg PO DAILY biotin 2,500 mcg capsule 2,500 mcg PO DAILY calcium-magnesium 300-300 mg tablet 1 tab PO DAILY Rx Instructions: administer with a meal cholecalciferol (vitamin D3) [D3 DOTS] 50 mcg (2,000 unit) tablet 50 mcg PO DAILY Primary Care Provider: Bettina Ashton Referrals: Bettina Ashton, [employer] [Primary Care Provider] - Activity Restrictions/Additional Instructions: Ensure adequate hydration. Return with worsening symptoms or any concerns. Your blood work did not show any acute findings, your CTs of your head did not show any acute findings either. Use your meclizine and Zofran as prescribed. Print Language: Irish Disposition Disposition: Home, Self Care
[2025-01-07] MEDS: 0.9% Normal Saline (1000mL) 1,000 ML 999 ML IV (11:55)
[2025-01-07 11:58] VITALS: BMI 43.1
--- NOTE | 2025-01-07 12:13 | CT_ITS ---
PROCEDURE: BRAIN/HEAD WITHOUT CONTRAST N/A REASON FOR EXAM: DIZZY TECHNIQUE: BRAIN/HEAD WITHOUT CONTRAST Coronal and Sagittal reconstruction series were provided. One or more dose reduction techniques were used (e.g., Automated exposure control, adjustment of the mA and/or kV according to patient size, use of iterative reconstruction technique. RADIATION DOSE SUMMARY: CTDlvol: 47, 13, 26 mGy DLP: 1792 mGycm COMPARISON: 07/18/2024 FINDINGS: BRAIN: No acute intraparenchymal hemorrhage. No mass lesion. No CT evidence for acute territorial infarct. No midline shift or extra-axial collection. VENTRICLES: No hydrocephalus. ORBITS: The orbits are unremarkable. SINUSES AND MASTOIDS: The paranasal sinuses and mastoid air cells are clear. SOFT TISSUES: No acute abnormality seen. BONES: No acute osseous abnormality seen. OTHER: The sella has a partially empty appearance, which is unchanged. CT/Brain/Head without Contrast IMPRESSION: No acute intracranial abnormality. Reading Location: [id number]
--- NOTE | 2025-01-07 12:16 | CT_ITS ---
PROCEDURE: STROKE CTA HEAD AND NECK W/CON N/A REASON FOR EXAM: DIZZY TECHNIQUE: STROKE CTA HEAD AND NECK W/CON Multiplanar Sagittal and Coronal images were obtained. CONTRAST: Isovue 370 VOLUME: 100 mL One or more dose reduction techniques were used (e.g., Automated exposure control, adjustment of the mA and/or kV according to patient size, use of iterative reconstruction technique). RADIATION DOSE SUMMARY: CTDlvol: 26.19 mGy DLP: 906.12 mGycm COMPARISON: None. FINDINGS: Aortic Arch: Normal size and branching pattern. No significant atherosclerotic plaque. Brachiocephalic and Subclavians: Unremarkable RIGHT Carotid: Right CCA: Unremarkable. Right ICA: Unremarkable. Right ECA: Unremarkable. LEFT Carotid: Left CCA: Unremarkable. Left ICA: Unremarkable. Left ECA: Unremarkable. Vertebrals: Codominant. Arise from the subclavians. Both vertebrals form the basilar. RIGHT Vertebral: Unremarkable. LEFT Vertebral: Unremarkable. Anatomy: [place] anatomy is normal. Aneurysm or avm: No intracranial aneurysms or large vascular malformations are identified. Anterior cerebral arteries: Unremarkable: Middle cerebral arteries: Unremarkable. Basilar artery: Unremarkable. Posterior cerebral arteries: Unremarkable. Other major branches of the posterior circulation: Unremarkable. Major venous structures: Unremarkable. Other findings: Neck: No lymphadenopathy. Lungs: Lung apices are clear. Bones: Bones are unremarkable. CT/STROKE CTA Head AND Neck W/Con IMPRESSION: Unremarkable CTA of the head and neck without significant stenosis. No aneurysm or vascular malformation. Reading Location: [facility]
[2025-01-07 12:22] LABS: Hematocrit 39.0 % (37-47); Hemoglobin 13.0 g/dL (12.0-15.0); Immature Granulocytes Count 0.060 X10^3/uL (0.0-0.0); Mean Corp Hgb Conc 33.3 g/dL (32-36); Mean Corpuscular Volume 92.4 fL (81-99); Mean Platelet Vol. 10.6 fl (6.2-12.0); NRBC Flagged by Analyzer 0 % (0-5); Platelet Count 318 K/mm3 (150-450); RBC Distribution Width CV 13.2 % (11.6-14.6); RBC Distribution Width SD 44.8 fl (35.1-43.9); Red Blood Count 4.22 M/mm3 (4.2-5.4); White Blood Count 11.2 K/mm3 (4.4-11.0)
[2025-01-07 13:02] VITALS: BP 137/76; PULSE 58; RESP 16; O2SAT 100
[2025-01-07 13:09] LABS: Anion Gap 12 (5-15); BUN 12 mg/dL (4-19); BUN/Creat Ratio 17.1 RATIO (10-20); Calcium,Total 8.6 mg/dL (7.6-11.0); Carbon Dioxide 25.6 mmol/L (21.0-32.0); Chloride 104 mmol/L (98-108); Estimated Creatinine Clearance 117.82 ml/min (50-250); Glucose 80 mg/dL (70-99); Potassium 3.2 mmol/L (3.3-5.1)
[2025-01-07 14:16] VITALS: BP 136/74; PULSE 68; RESP 22; TEMP 36.2; O2SAT 100
[2025-01-07] MEDS: Potassium Chloride Oral Tablet 20 MEQ 40 MEQ PO (14:19)
== END 2025-01-07 14:24 | disposition home or self-care (01) ==
PROVIDERS: Emergency Provider Emergency Medicine; PCP Clinical Nurse Specialist Adult Health; Visit Provider Emergency Medicine
DX: R42 Dizziness and giddiness (principal); F41.9 Anxiety disorder, unspecified; Z87.891 Personal history of nicotine dependence
CPT/HCPCS: 70450; 70496; 70498; 80048; 84443; 85025; 93005; 96361; 96374; 99285; Q9967; A4216

== ENCOUNTER → 2025-04-04 | Outpatient (CLI) | payer MEDICAID, SELFPAY ==
--- NOTE | 2025-04-04 15:23 | MRI_ITS ---
PROCEDURE: SPINE CERVICAL (ROUTINE) 04/04/2025 REASON FOR EXAM: CERVICAL SPONDLYOSIS TECHNIQUE: Procedure Code: MRISPC Modality: MR Procedure: SPINE CERVICAL (ROUTINE) Multiplanar and multisequence images were obtained without IV contrast administration. COMPARISON: CT from January 07, 2025 FINDINGS: There is straightening of the cervical lordosis. Bone marrow signal and cord signal are grossly unremarkable. Paravertebral soft tissues are grossly unremarkable. C2-3: Unremarkable C3-4: Unremarkable C4-5: There is a broad-based posterior disc bulge. The AP canal diameter measures 9.4 mm at this level. C5-6: There is a broad-based posterior disc bulge. The AP canal diameter measures 9.4 mm. C6-7: There is a broad-based posterior disc bulge most pronounced in the right subarticular and left foraminal zones. The AP canal diameter measures 7.5 mm at this level. C7-T1: There is a minimal concentric disc bulge. MRI/Spine Cervical (Routine) IMPRESSION: Multilevel degenerative disc disease with details by level as above. Reading [facility]
--- OUTSIDE RECORDS SUMMARY | 2025-04-04 16:58 | XMS RPT_ITS | CCD ---
Author Organization [facility] Care Team Providers Care Kitchen Utility Associate Name Role Phone Mandie Garcia PA-C Primary Care Provider [phone] OG Howard Primary Care Provider [phone] OG Howard Referring Provider OG Srinivasan Attending Provider Dr. Tung Edwards Attending Provider MD Jermaine Levy Attending Provider Mandie Garcia PA-C Primary Care Provider [phone] Mandie Garcia PA-C Primary Care Provider [phone] Mandie GARCIA Primary Care Unavailable ASHLEE LEE Referring Unavailable ANTONIETTA GONZALEZ Attending Unavailable ANTONIETTA GONZALEZ Admitting Unavailable Esthela Garcia PA-C Primary Care Provider Unavailable Suppan FACILITIES ADMINISTRATOR.RACHID, Bettina A Primary Care Provi jose manuel Suppan FACILITIES ADMINISTRATOR.SCIENCE PROFESSOR, Bettina A Primary Care Provi jose manuel LILLIE BAUTISTA Attending Unavailable DAISHA, BETTINA A Primary Care Unavailable Dr. Corey Tristan MD Attending Provider Dr. Corey Tristan MD Emergency Provider Suppcharles TANNER, Bettina Primary Care Provider Dr. Bo Fontenot DO Attending Provider Dr. Bo Fontenot DO Emergency Provider Dr. Roc Goldman DO Attending Provider Suppan SMOG TECHNICIAN, Bettina Referring Provider Lester Hoffman Attending Provider [phone] Eddie Hernandez Attending Provider Dr. Chago Balderas DO Attending Provider Dr. Chago Balderas DO Emergency Provider [phone] Suppan SMOG TECHNICIAN, Bettina Attending Provider Jermaine Levy MD Attending Provider Suppan SMOG TECHNICIAN, Bettina Attending Provider Suppan SMOG TECHNICIAN, Bettina Primary Care Provider Referred, Self Attending Provider Unavailable Referred, Self Referring Provider Unavailable Lindsay Motley Attending Provider Jerry PRATER, Dr. Ruby Attending Provider Suppan SMOG TECHNICIAN, Bettina Primary Care Provider Suppan SMOG TECHNICIAN, Bettina Referring Provider Jermaine Levy MD Attending Provider Referred, Self Attending Provider Unavailable Referred, Self Referring Provider Unavailable Dr. Deangelo Thao DO Emergency Provider LUNA PAT Attending Unavailable PACK, JENNIFER Referring Unavailable SUPPAN, BETTINA A Primary Care Unavailable Suppan, Bettina Referring Unavailable Suppan, Bettina Primary Care Unavailable Cedric Stevens Attending Unavailable Suppan, Bettina Referring Unavailable Jermaine Levy Attending Unavailable Suppan, Bettina Primary Care Unavailable Suppan, Bettina Primary Care Unavailable Bo Fontenot Attending Unavailable Suppan, Bettina Primary Care Unavailable Corey Tristan Attending Unavailable Suppan, Bettina Referring Unavailable Suppan, Bettina Attending Unavailable Suppan, Bettina Primary Care Unavailable Larry Hummel Referring Unavailable Larry Hummel Attending Unavailable Suppan, Bettina Primary Care Unavailable Suppan, Bettina Primary Care Unavailable Referred, Self Referring Unavailable Referred, Self Attending Unavailable Suppan, Bettina Primary Care Unavailable Assessment, Health Risk Referring Unavaila ble Assessment, Health Risk Attending Unavaila ble Jermaine Levy Attending Unavailable Suppan, Bettina Primary Care Unavailable Suppan, Bettina Referring Unavailable Suppan, Bettina Referring Unavailable Suppan, Bettina Primary Care Unavailable Eddie Hernandez Attending Unavailable Lindsay Rivera Attending Unavailable Suppan, Bettina Primary Care Unavailable Suppan, Bettina Referring Unavailable Lester Hoffman Attending Unavailable Suppan, Bettina Referring Unavailable Suppan, Bettina Primary Care Unavailable Suppan, Bettina Primary Care Unavailable Eddie Hernandez Attending Unavailable Suppan, Bettina Referring Unavailable Mandie Howard Referring Unavailable Mandie Howard Primary Care Unavailable Eddie Hernandez Attending Unavailable Suppan, Bettina Primary Care Unavailable Tung Edwards Attending Unavailable Suppan, Bettina Primary Care Unavailable Eddie Hernandez Attending Unavailable Suppan, Bettina Referring Unavailable Suppan, Bettina Referring Unavailable Jermaine Levy Attending Unavailable Suppan, Bettina Primary Care Unavailable Lindsay Rivera Attending Unavailable Suppan, Bettina Primary Care Unavailable Suppan, Bettina Referring Unavailable Chago Balderas Attending Unavailable Suppan, Bettina Primary Care Unavailable Deangelo Thao Attending Unavailable Suppan, Bettina Primary Care Unavailable Roc Goldman Attending Unavailable Suppan, Bettina Primary Care Unavailable Suppan, Bettina Primary Care Unavailable Suppan, Bettina Attending Unavailable Suppan, Betitna Referring Unavailable Suppan, Bettina Primary Care Unavailable Tung Edwards Attending Unavailable Mandie Howard Referring Unavailable Mandie Howard Primary Care Unavailable Eddie Hernandez Attending Unavailable ASHLEE LEE Attending Unavailable SUPPAN, BETTINA A Primary Care Unavailable ANAHI DOWNS Attending Unavailable SUPPAN, BETTINA A Primary Care Unavailable ANAHI DOWNS Attending Unavailable SUPPAN, BETTINA A Primary Care Unavailable SUPPAN, BETTINA A Primary Care Unavailable JANA, JENNIFER Referring Unavailable SUPPAN, BETTINA A Referring Unavailable PARMJIT AMCK JR Attending Unavailable SUPPAN, BETTINA A Primary Care Unavailable SUPPAN, BETTINA A Attending Unavailable SUPPAN, BETTINA A Primary Care Unavailable BERNADETTE WINTERS Attending Unavailable SUPPAN, BETTINA A Primary Care Unavailable ASHLEE LEE Attending Unavailable SUPPAN, BETTINA A Primary Care Unavailable SUPPAN, BETTINA A Primary Care Unavailable SUPPAN, BETTINA A Attending Unavailable ESTHLEA GARCIA Primary Care Unavailable GARCIA, ESTHELA WARREN Primary Care Unavailable EDNA COURTNEY Referring Unavailable GARCIAESTHELA Primary Care Unavailable SUPPAN, BETTINA A Primary Care Unavailable SUPPAN, BETTINA A Primary Care Unavailable SUPPAN, BETTINA A Attending Unavailable SUPPAN, BETTINA A Primary Care Unavailable MARITA ALICEA Attending Unavailable SUPPAN, BETTINA A Primary Care Unavailable LAUREN MEDELLIN Attending Unavailable SUPPAN, BETTINA A Primary Care Unavailable SUPPAN, BETTINA A Attending Unavailable SUPPAN, BETTINA A Primary Care Unavailable SUPPAN, BETTINA A Attending Unavailable SUPPAN, BETTINA A Primary Care Unavailable ANAHI DOWNS Attending Unavailable SUPPAN, BETTINA A Primary Care Unavailable SUPPAN, BETTINA A Primary Care Unavailable JOSEDEBORAH SIMON Attending Unavailable SUPPAN, BETTINA A Primary Care Unavailable DEBORAH WHITTAKER Referring Unavailable BERNADETTE WINTERS Referring Unavailable SUPPAN, BETTINA A Primary Care Unavailable PAZHANISAMY, AMUDHA Attending Unavailable SUPPAN, BETTINA A Primary Care Unavailable PAZHANISAMY, AMUDHA Referring Unavailable SUPPAN, BETTINA A Primary Care Unavailable SUPPAN, BETTINA A Referring Unavailable JENNIFER RODRIGUEZ Attending Unavailable SUPPAN, BETTINA A Referring Unavailable SUPPAN, BETTINA A Primary Care Unavailable NADER CALVILLO Attending Unavailable SUPPAN, BETTINA A Attending Unavailable SUPPAN, BETTINA A Primary Care Unavailable MARYELLEN NGUYEN Referring Unavailabl e SUPPAN, BETTINA A Primary Care Unavailable SUPPAN, BETTINA A Attending Unavailable Allergies Allergy Classification Reported Allergen(s) Allergy Type Date of Onset Reaction(s) Facility (20 sources) buPROPion; Translations: [BUPROPION HCL] Drug Allergy 4 GI Upset [facility] (20 sources) Esomeprazole; Translations: [ESOMEPRAZOLE MAGNESIUM] Drug Allergy 7 Other: See Comments [facility] (20 sources) guaiFENesin / Pseudoephedrine; Translations: [PSEUDOEPHEDRINE -GUAIFENESIN] Drug Allergy 5 [facility] Work Phone: (20 sources) lansoprazole; Translations: [LANSOPRAZOLE] Drug Allergy 5 Unknown [facility] Work Phone: (20 sources) Omeprazole; Translations: [OMEPRAZOLE] Drug Allergy 5 Other [facility] Work Phone: (20 sources) RABEprazole; Translations: [RABEPRAZOLE SODIUM] Drug Allergy 7 Rash [facility] (20 sources) Sulfonamides (Antibiotic); Translations: [SULFA (SULFONAMIDE ANTIBIOTICS)] Propensity to adverse reactions 5 Rash [facility] Work Phone: (9 sources) Omeprazole; Translations: [omeprazole magnesium] Drug Allergy 3 Other [facility] (8 sources) RABEprazole Drug Allergy 3 Hives [facility] (8 sources) Sulfonamides (Antibiotic) Allergy to substance 3 Unknown [facility] (1 source) lansoprazole Drug Allergy 5 [facility] (1 source) Omeprazole Drug Allergy 5 [facility] (1 source) RABEprazole Drug Allergy 5 [facility] (1 source) Sulfonamides (Antibiotic) Drug allergy (disorder) 5 [facility] Medications Current Medications Medication Drug Class(es) Dates Sig (Normalized) Sig (Original) amoxicillin 875 mg / clavulanate 125 mg oral tablet (20 sources) Penicillin-class Antibacterial Start: 02-11-2025 End: 02-18-2025 take 1 tablet by mouth every twelve hours amoxicillin-clav ulanate potassium (AUGMENTIN) 875-125 mg per tablet Take 1 tablet by mouth every 12 hours for 7 days. Patient should start on February 11, 2025. 14 tablet 02/11/2025 02/18/2025 Active Start: 07-18-2024 End: 08-30-2024 Amoxicillin-Pot Clavulanate 875-125 [...] mg tablet Discontinued 1 {tbl} PO Q12H 20 10 0 April 19, 2019 1:00am April 28, 2019 1:00am April 29, 2019 1:10am Acute sinusitis, unspecified Start: 08-01-2017 End: 08-11-2017 Amoxicillin-Pot Clavulanate 875-125 mg tablet Discontinued 1 {tbl} PO Q12H 20 10 August 01, 2017 1:00am August 10, 2017 12:00am August 11, 2017 12:06am Start: 08-01-2017 End: 08-11-2017 take 1 tablet by mouth every twelve hours Amoxicillin-Pot Clavulanate Discontinued 1 TABLET PO Q12H 20 August 01, 2017 1:00am August 11, 2017 12:06am Comment on above: Take 1 tablet by magdalena twice daily for 7 days. Take 1 tablet by magdalena th twice daily for 10 days. ascorbic acid 500 mg oral tablet (20 sources) Vitamin C Start: 01-07-2025 take 1 tablet by mouth once daily Ascorbic Acid (Vitamin C) (C-500) 500 mg tablet Active 500 mg PO DAILY January 07, 2025 12:00am ascorbic acid (V ITAMIN C ORAL) Take by mouth once daily. Active ascorbic acid (V ITAMIN C ORAL) Take by mouth. Active ascorbic acid (V ITAMIN C ORAL) Take by mouth. 0 Active Comment on above: Take by mouth. biotin 2.5 mg oral capsule (1 source) Start: 01-07-2025 take 1 capsule by mouth once daily Biotin 2,500 mcg capsule Active 2500 ug PO DAILY January 07, 2025 12:00am BIOTIN, BULK, MISC (20 sources) BIOTIN, BULK, MS SC Active BIOTIN, BULK, MS SC Calcium-Magnesium 300-300 mg tablet (1 source) Start: 01-07-2025 Calcium-Magnes ium 300-300 mg tablet Active 1 {tbl} PO DAILY January 07, 2025 12:00am administer with a meal cholecalciferol 0.05 mg oral tablet (1 source) Vitamin D Start: 01-07-2025 Cholecalcifero l (Vitamin D3) (D3 Dots) 50 mcg (2,000 unit) tablet Active 50 ug PO DAILY January 07, 2025 12:00am cholecalciferol, vitamin D3, (VITAMIN D3 ORAL) (20 sources) cholecalciferol, vitamin D3, (VITAMIN D3 ORAL) Take by mouth. Active cholecalciferol, vitamin D3, (VITAMIN D3 ORAL) Take by mouth. 0 Active Comment on above: Take by mouth. ciprofloxacin 500 mg oral tablet (2 sources) Quinolone Antimicrobial Start: 05-03-20 24 End: 05-13-20 24 take 1 tablet by mouth twice daily ciprofloxacin HCl (CIPRO) 500 mg tablet Indications: Dysuria , Diverticulitis Take 1 tablet by mouth two times a day for 10 days. 20 tablet 05/03/2024 05/13/2024 Active clonazePAM 0.5 mg oral tablet (20 sources) Benzodiazepine Start: 08-31-19 25 End: 09-28-19 25 clonazePAM (KLONOPIN) 0.5 mg tablet Indications: Anxiety [...] Comment on above: Take 1 tablet by magdalena th three times daily as needed for muscle spasm. Take 1 tablet by magdalena th three times a day as needed for muscle spasm. doxycycline hyclate 100 mg oral capsule (12 sources) Tetracycline-cla ss Drug Start: 07-25-2024 End: 08-04-2024 take 1 capsule by mouth twice daily [...] sources) Serotonin and Norepinephrine Reuptake Inhibitor Start: 01-31-2025 End: 07-30-2025 take 1 capsule by mouth once daily DULoxetine DR (CYMBALTA) 30 mg capsule Indications: Fibromyalgia Take 1 capsule by mouth once daily. 90 capsule 1 01/31/2025 07/30/2025 Active Start: 02-01-2024 End: 01-17-2025 take 1 capsule by mouth once daily DULoxetine DR (CYMBALTA) 30 mg capsule Indications: Major depressive disorder, recurrent episode, moderate (HCC) , Anxiety disorder, unspecified type Take 1 capsule by mouth once daily. 90 capsule 12/12/2024 01/09/2025 Discontinued (Clinical Decision) Start: 09-06-2015 End: 08-01-2017 Duloxetine 60 MG capsule Discontinued 90 mg PO DAILY September 06, 2015 12:00am August 01, 2017 12:23pm Start: 09-06-2015 End: 08-01-2017 take 90 mg by mouth once daily Duloxetine Discontinued 90 MG PO DAILY September 06, 2015 12:00am August 01, 2017 12:23pm Ethinyl Estradiol / norgestimate (20 sources) Progestin, Estrogen Start: 02-08-2024 take 1 tablet by mouth once daily norgestimate 0.25 mg-ethinyl estradiol 35 mcg (TAMARA) 0.25-35 mg-mcg per tablet Indications: Encounter for surveillance of contraceptive pills Take 1 tablet by mouth once daily. Take active pills only. No inactive week. 112 tablet 3 02/08/2024 Active Start: 02-08-2024 End: 01-09-2025 take 1 tablet [...] Discontinued Start: 01-14-2024 take 1 tablet by magdalena once daily norgestimate 0.25 mg-ethinyl estradiol 35 [...] Discontinued Start: 05-11-2023 take 1 tablet by magdalena th once daily norgestimate 0.25 mg-ethinyl estradiol [...] Discontinued Start: 02-05-2023 take 1 tablet by magdalena th once daily norgestimate 0.25 mg-ethinyl estradiol [...] Discontinued Start: 12-08-2022 take 1 tablet by magdalena th once daily norgestimate 0.25 mg-ethinyl estradiol [...] Discontinued Start: 12-17-2021 take 1 tablet by magdalena th once daily norgestimate 0.25 mg-ethinyl estradiol [...] Discontinued Start: 11-26-2021 take 1 tablet by magdalena th once daily norgestimate 0.25 mg-ethinyl estradiol [...] NMA PO DAILY December 10, 2018 12:00am bcp Start: 12-10-2018 Norgestimate-E thinyl Estradiol 1 EACH tablet Active 1 NMA PO DAILY December 10, 2018 12:00am Start: 12-10-2018 Norgestimate-E thinyl Estradiol Active 1 EACH PO DAILY December 10, 2018 12:00am Comment on above: Take 1 tablet by magdalena th once daily. Take active pills only. Start a new pack every 3 weeks. Take 1 tablet by magdalena th once daily. Take 1 tablet by magdalena th once daily. Take active pills only. No inactive week. famotidine 20 mg oral tablet (8 sources) Histamine-2 Receptor Antagonist Start: 01-18-20 take 1 tablet by mouth once daily at bedtime famotidine (PEPCID) 20 mg tablet Take 1 tablet by mouth daily at bedtime. 30 tablet 1 01/17/2025 Active fluconazole 150 mg oral tablet (1 source) Azole Antifungal Start: 04-27-20 End: 04-28-20 take 1 tablet by mouth once daily fluconazole (DIFLUCAN) 150 mg tablet Indications: Urinary frequency Take 1 tablet by mouth once daily for 1 day. 1 tablet 04/27/2024 04/28/2024 Active fluticasone propionate 0.05 mg/actuat metered dose nasal spray (20 sources) Corticosteroid Start: 07-21-19 take 1 spray(s) nasal route once daily fluticasone (FLONASE ALLERGY RELIEF) 50 mcg/actuation nasal spray Indications: Viral upper respiratory tract infection Use 1 [place] in each nostril once daily. 11.1 mL [...] oral capsule (20 sources) Anti-epileptic Agent Start: End: take 1 capsule by mouth three times daily gabapentin (NEURONTIN) 300 mg capsule Indications: Fibromyalgia , Cervicothoracic somatic dysfunction Take 1 capsule by mouth three times a day for 90 days. 90 capsule 2 01/31/2025 05/01/2025 Active Start: 01-10-2025 End: 02-09-2025 take 1 capsule by mouth once daily gabapentin (NEURONTIN) 300 mg capsule Indications: Fibromyalgia Take 1 capsule by mouth once daily for 30 days. 30 capsule 01/10/2025 01/31/2025 Discontinued Start: 01-07-2025 take 1 capsule by mo [facility] once daily Gabapentin 300 mg capsule Active 300 mg PO DAILY January 07, 2025 12:00am Start: 10-14-2024 End: 01-12-2025 take 1 capsule by mouth four times daily at bedtime gabapentin (NEURONTIN) 300 mg capsule Indications: neuropathic pain Take 1 capsule by mouth four times daily for 90 days. 300 mg in AM, 300 mg mid day, 600 mg at bedtime 120 capsule 2 10/14/2024 01/10/2025 Discontinued Start: 08-21-2023 End: 10-19-2024 take 1 capsule [...] 14, 2016 12:00am February 21, 2019 9:57am neck pain Comment on above: Take 1 capsule by mo uth three times a day for 90 days. lamoTRIgine 150 mg oral tablet (20 sources) Mood Stabilizer, Anti-epileptic Agent Start: 01-09-2025 take 1 tablet by mouth once daily at bedtime lamoTRIgine (LAMICTAL) 100 mg tablet Indications: Major depressive disorder, recurrent, moderate (HCC) , Anxiety disorder, unspecified type Take 1 tablet by mouth daily at bedtime. take with 150 mg tablet for total daily dose 250 mg 90 tablet 01/09/2025 Active Start: 01-09-2025 take 1 tablet by magdalena th once daily at bedtime lamoTRIgine (LAMICTAL) 150 mg tablet Indications: Major depressive disorder, recurrent, moderate (HCC) Take 1 tablet by mouth daily at bedtime. take with 100 mg tablet for total daily dose 250 mg 90 tablet 01/09/2025 Active Start: 10-11-2024 End: 01-06-2025 take 1 tablet by mouth once daily Lamotrigine 150 mg tablet Active 150 mg PO DAILY January 07, 2025 12:00am Start: 10-11-2024 End: 01-06-2025 take 1 tablet by mouth once daily at bedtime lamoTRIgine (LAMICTAL) 100 mg tablet Indications: Anxiety disorder, unspecified type , Major depressive disorder, recurrent, moderate (HCC) Take 1 tablet by mouth daily at bedtime. take with 150 mg tablet for total daily dose 250 mg 90 tablet 10/11/2024 01/06/2025 Discontinued Start: 04-29-2023 End: 08-16-2024 take 1 tablet [...] 30 tablet 03/16/2020 04/23/2020 Discontinued Start: 04-12-2019 End: 01-07-2025 take 1 tablet by mouth at bedtime Lamotrigine 25 tablet Discontinued 50 mg PO AT BEDTIME April 12, 2019 1:00am January 07, 2025 11:27am Comment on above: Take 1 tablet by magdalena th once daily. TAKE 1 TABLET BY MAGDALENA TH EVERY DAY Take 1 tablet by magdalena th daily at bedtime. Magnesium glycinate (20 sources) take 200 mg by mouth once daily MAGNESIUM GLYCINATE ORAL Take 200 mg by mouth once daily. Active meclizine hydrochloride 25 mg oral tablet (20 sources) Antiemetic Start: 01-13-20 End: 04-12-20 take 1 tablet by mouth every six hours as needed for dizziness, then take 4 tablets by mouth every twenty-four hours as needed for dizziness meclizine (ANTIVERT) 25 mg tab Indications: BPPV (benign paroxysmal positional vertigo), unspecified laterality Take 1 tablet by mouth every 6 hours as needed (for dizziness). Not to exceed 4 tablets in 24 hours 120 tablet 2 01/12/2025 04/12/2025 Active Start: 01-07-2025 take 1 tablet by magdalena th every six hours as needed for dizziness Meclizine 25 mg tablet Active 25 mg PO EVERY 6 HOURS as needed for dizziness January 07, 2025 12:00am Start: 08-08-2024 End: 09-07-2024 take 1 tablet by mouth every six [...] TIMES A DAY as needed for Vertigo 1 November 02, 2017 1:45pm March 21, 2019 [...] dizziness/ vertigo methylPREDNISolone (20 sources) Corticosteroid Start: 02-08-2025 End: 02-14-2025 methylPREDNISolone (MEDROL, JAVAN,) 4 mg Dose-Pack Take as instructed per package. 21 tablet 02/08/2025 02/14/2025 Active Start: 11-09-2024 End: 01-07-2025 take 1 tablet by mouth once Methylprednisolone (Medrol (Javan)) 4 mg tablets,dose pack Discontinued 0 PO per package directions 21 November 09, 2024 12:00am January 07, 2025 11:26am PO PER PKG DIR for 6 days Start: 10-11-2024 End: 01-12-2025 methylPREDNISolone (MEDROL D OSE-PACK) 4 mg Dose-Pack 10/11/2024 01/12/2025 Discontinued (Course of therapy completed) Start: 10-11-2024 methylPREDNISo lone (MEDROL DOSE-PACK) 4 mg Dose-Pack 10/11/2024 Active [...] days. 21 tablet 05/03/2024 05/10/2024 Active Multivitamin (Daily Multi-Vitamin) tablet (1 source) Start: Multivitamin (Daily Multi-Vitamin) tablet Active 1 {tbl} PO DAILY January 07, 2025 12:00am Multivitamin capsule (20 sources) take 1 capsule by mouth once daily Multivitamin capsule Take 1 capsule by mouth once daily. Active take 1 capsule by mouth once geno ly Multivitamin capsule Take 1 capsule by mouth once daily. 0 Active Comment on above: Take 1 capsule by mo [facility] once daily. ondansetron 4 mg oral tablet [...] DAY as needed for nausea and vomiting 21 0 June 28, 2024 7:08am October 31, 2024 [...] tablet 07/14/2019 04/16/2020 Discontinued polyethylene glycol 3350 332439 mg / potassium chloride 2970 mg / sodium bicarbonate 6740 mg / sodium chloride 5860 mg / sodium sulfate 33135 mg powder for oral solution (1 source) Osmotic Laxative Start: 12-28-2023 End: 12-28-2023 peg 3350-Electrolytes (GOLYTELY) 236-22.74-6.74 -5.86 gram suspension Take 4,000 mL by mouth one time only for 1 dose. Refer to printed prep instructions from your provider. 4000 mL 0 12/28/2023 12/28/2023 Active predniSONE 20 mg oral tablet (20 sources) Start: 02-01-2025 End: 02-04-2025 take 1 tablet by mouth once daily predniSONE (DELTASONE) 20 mg tablet Take 1 tablet by mouth once daily for 3 days. 3 tablet 02/01/2025 02/04/2025 Active Start: 01-12-2025 End: 01-17-2025 take 2 tablets by mouth once daily predniSONE (DELTASONE) 20 mg tablet Take 2 tablets by mouth once daily for 5 days. 10 tablet 01/12/2025 01/17/2025 Start: 07-16-2024 End: 07-25-2024 predniSONE (DELTASONE) 10 mg tablet Take 4 tabs daily for 3 days, then 2 tabs daily for 3 days, then 1 tab daily for 3 days with food. 21 tablet 07/16/2024 07/21/2024 Discontinued (Discontinued by Patient) Start: 06-28-2024 End: 08-30-2024 take 2 tablets by mouth once daily Prednisone 20 mg tablet Discontinued 40 mg PO DAILY 10 5 0 June 28, 2024 1:00am August 30, 2024 [...] tablet Discontinued 40 mg PO DAILY 10 5 0 July 19, 2023 1:00am July 23, 2023 [...] mg tablet Discontinued 20 mg PO DAILY 5 0 November 28, 2022 12:00am January 09, 2023 [...] on above: Take 2 tablets by mo ut once daily for 3 days. Take 2 tablets by mo uth once daily for 5 days. 72 hr scopolamine 0.0139 mg/hr transdermal system (13 sources) Anticholinergic Start: scopolamine (TRANSDERM-SCOP) patch 1.5 mg/72 hr (delivers 1 mg over 3 days) Indications: BPPV (benign paroxysmal positional vertigo), unspecified laterality Apply 1 patch as directed every 72 hours. 3 patch 01/10/2025 Active sod sulf-pot chloride-mag sulf (SUTAB) 1.479-0.188- 0.225 gram tab (1 source) Start: End: sod sulf-pot chloride-mag sulf (SUTAB) 1.479-0.188- 0.225 gram tab Indications: Encounter for screening for malignant neoplasm of colon Take 12 tablets by mouth as directed for 2 days. Follow instructions that have been given to you by your provider's office. (Part 1, take 12 tablets. Part 2, take 12 tablets). 24 tablet 01/27/2024 01/29/2024 Active sucralfate 1000 mg oral tablet (18 sources) Aluminum Complex Start: End: take 1 tablet by mouth at bedtime sucralfate (CARAFATE) 1 gram tablet Indications: Flatus , Gastroesophageal reflux disease without esophagitis , Right upper quadrant abdominal pain Take 1 tablet by mouth before meals and at bedtime. 120 tablet 01/17/2025 02/16/2025 Active Start: 03-11-2019 End: 04-16-2020 take 1 tablet by mouth four times daily sucralfate (CARAFATE) 1 gram tablet Take 1 tablet by mouth four times daily. 120 tablet 5 03/11/2019 04/16/2020 Discontinued Start: 03-08-2017 End: 08-01-2017 take 1 tablet by mouth four times daily Sucralfate 1 GM tablet Discontinued 1 g PO 4 TIMES DAILY March 08, 2017 12:00am August 01, 2017 12:24pm tiZANidine 4 mg oral tablet (17 sources) [...] on above: Take 1 capsule by mo [facility] every 4 hours as needed. acetaminophen 325 mg / HYDROcodone bitartrate 5 mg oral tablet (8 sources) Opioid Agonist Start: 03-08-2017 End: 08-01-2017 Hydrocodone-Acetaminophe n 1 TABLET tablet Discontinued 1 - 2 {tbl} PO EVERY 4 HOURS NEEDED as needed for Pain 4 0 March 08, 2017 12:00am August 01, 2017 12:23pm Start: 03-08-2017 End: 08-01-2017 take 1 tablet by mouth every four hours as needed Hydrocodone-Acetaminophen Discontinued 1 - 2 TABLET PO EVERY 4 HOURS NEEDED 4 March 08, 2017 12:00am August 01, 2017 12:23pm acetaminophen 325 mg / oxyCODONE hydrochloride 5 mg oral tablet (13 sources) Opioid Agonist Start: 06-28-2024 End: 08-30-2024 Oxycodone-Acetaminophen (Percocet) 5-325 mg tablet Discontinued 1 {tbl} PO EVERY 6 HOURS as needed for pain 20 5 0 June 28, 2024 August 30, 2024 9:32am Piriformis syndrome of right side Acute myofascial strain of lumbosacral region Lesion of sciatic nerve, right lower limb Strain of muscle, fascia and tendon of lower back, initial encounter Start: 08-14-2016 End: 08-01-2017 Oxycodone-Acetaminophen 1 TA BLET tablet Discontinued 1 {tbl} PO EVERY 4 HOURS NEEDED as needed for Pain August 14, 2016 12:00am August 01, 2017 12:23pm Start: 08-14-2016 End: 08-01-2017 take 1 tablet by mouth every four hours as needed Oxycodone-Acetaminophen Discontinued 1 TABLET PO EVERY 4 HOURS NEEDED August 14, 2016 12:00am August 01, 2017 12:23pm [id number] 200 actuat albuterol 0.09 mg/actuat metered dose inhaler (20 sources) beta2-Adrenergic Agonist Start: 03-05-2021 End: 02-05-2023 take 2 puff(s) by inhalation every four hours as needed albuterol HFA (PROVENTIL HFA, VENTOLIN HFA) 90 mcg/actuation inhaler Indications: Wheezing Inhale 2 Puffs as instructed every 4 hours as needed. 1 Each 5 03/05/2021 09/30/2022 Discontinued Comment on above: Inhale 2 Puffs as in structed every 4 hours as needed. ARIPiprazole 2 mg oral tablet (20 sources) Atypical Antipsychotic Start: 01-21-2024 End: 02-01-2024 take 1 tablet by mouth once daily ARIPiprazole (ABILIFY) 2 mg tablet take 1 tablet by mouth every day 90 tablet 01/21/2024 02/01/2024 Discontinued Start: 01-16-2020 End: 12-29-2023 take 1 tablet by mouth at bedtime Aripiprazole 2 MG tablet Discontinued 2 mg PO AT BEDTIME January 19, 2020 12:00am December 29, 2023 7:40am Comment on above: TAKE 1 TABLET BY MAGDALENA TH EVERY DAY Take 1 tablet by magdalena th once daily. no further refills until seen for an appointment Take 1 tablet by magdalena th once daily. baclofen 10 mg oral tablet (20 sources) gamma-Aminobutyric Acid-ergic Agonist Start: 10-11-2024 End: 01-10-2025 take 1 tablet by mouth every eight hours as needed baclofen 10 mg tablet Take 10 mg by mouth three times a day as needed. 10/11/2024 01/10/2025 Discontinued (Discontinued by Patient) Start: 05-06-2024 baclofen 5 mg tablet 05/06/2024 Active benzonatate 200 mg oral capsule (10 sources) Non-narcotic Antitussive Start: 04-11-2024 End: 10-31-2024 take 1 capsule by mouth three times daily as needed for cough Benzonatate 200 mg capsule Discontinued 200 mg PO THREE TIMES A DAY as needed for cough 20 April 11, 2024 1:00am October 31, 2024 1:00pm Start: 06-02-2023 End: 07-19-2023 take 1 capsule by mouth three times daily as needed for cough Benzonatate 200 mg capsule Discontinued 200 mg PO THREE TIMES A DAY as needed for cough 20 0 June 02, 2023 1:00am July 19, 2023 10:46am betamethasone acetate-betamethasone sodium phosphate 6 mg, BUPivacaine (PF) 5 mg, lidocaine (PF) 10 mg/mL (1 %) 10 mg (1 source) Start: 11-17-2022 End: 11-17-2022 betamethasone acetate-betamethasone sodium phosphate 6 mg, BUPivacaine (PF) 5 mg, lidocaine (PF) 10 mg/mL (1 %) 10 mg carBAMazepine 200 mg oral tablet (8 sources) Mood Stabilizer Start: 08-14-2016 End: 08-01-2017 take 1 tablet by mouth twice daily at mealtime as needed for pain Carbamazepine 200 MG tablet Discontinued 0 mg PO TWICE DAILY WITH MEALS as needed for neck pain August 14, 2016 12:00am August 01, 2017 12:22pm cetirizine hydrochloride 10 mg oral tablet (7 sources) Histamine-1 Receptor Antagonist Start: 01-12-2025 End: 01-17-2025 take 1 tablet by mouth twice daily cetirizine (ZYRTEC) 10 mg tablet Take 1 tablet by mouth two times a day for 5 days. 10 tablet 01/12/2025 01/17/2025 Start: 03-24-2023 End: 04-23-2023 take 1 tablet by mouth once daily cetirizine (ZYRTEC) 10 mg tablet Take 1 tablet by mouth once daily. 30 tablet 0 03/24/2023 04/23/2023 Active Comment on above: Take 1 tablet by magdalena once daily. CPAP (2 sources) Start: End: CPAP AutoPAP 5-20 cmH2O, mask (nasal pillows or pt pref), chin strap, heated tubing & humidity, filters. Lifetime supplies. CLIFTON: G47.33. 1 Device 08/16/2020 07/29/2021 Discontinued (Course of therapy completed) dextromethorphan hydrobromide 3 mg/ml / promethazine hydrochloride 1.25 mg/ml oral solution (11 sources) Phenothiazine, Uncompetitive Q-cpmvve-L-aspartate Receptor Antagonist, Sigma-1 Agonist Start: End: take 5 mL by mouth four times daily as needed for cough Promethazine-DM (PHENERGAN-DM) 6.25-15 mg/5 mL syrup Indications: Viral upper respiratory tract infection Take 5 mL by mouth four times a day as needed (FOR POST NASAL DRIP AND COUGH). 180 mL 07/21/2024 08/08/2024 Discontinued (Course of therapy completed) diclofenac sodium 0.01 mg/mg topical gel (7 sources) Nonsteroidal Anti-inflammatory Drug Start: End: Diclofenac Sodium (Voltaren Arthritis Pain) 1 % gel Discontinued 4 g TOPICAL THREE TIMES A DAY 100 0 November 28, 2022 12:00am January 07, 2025 12:35pm apply to single knee TID dicyclomine hydrochloride 20 mg oral tablet (2 sources) Anticholinergic Start: End: take 1 tablet by mouth four times daily as needed dicyclomine (BENTYL) 20 mg tablet Indications: Irritable bowel syndrome with diarrhea Take 1 tablet by mouth four times daily. as needed. 40 tablet 1 01/25/2019 11/02/2020 Discontinued ferrous sulfate 325 mg oral tablet (1 source) Start: End: take 1 tablet by mouth once daily at breakfast ferrous sulfate 325 mg (65 mg iron) tablet Take 1 tablet by mouth daily with breakfast. 30 tablet 5 01/25/2021 07/29/2021 Discontinued hydrOXYzine hydrochloride 25 mg oral tablet (11 sources) Antihistamine Start: End: take 1 tablet by mouth three times daily as needed hydrOXYzine HCl (ATARAX) 25 mg tablet Indications: Anxiety disorder, unspecified type Take 1 tablet by mouth three times a day as needed. 08/17/2023 08/21/2023 Discontinued Comment on above: Take 1 tablet by magdalena th three times a day as needed for anxiety. Take 1 tablet by magdalena th three times a day as needed. 2 ml ketorolac tromethamine 30 mg/ml injection (1 source) Nonsteroidal Anti-inflammatory Drug, Cyclooxygenase Inhibitor Start: End: keTORolac 60 mg injection (Toradol) meloxicam 15 mg oral tablet (10 sources) Nonsteroidal Anti-inflammatory Drug Start: End: take 1 tablet by mouth once daily at mealtime meloxicam (MOBIC) 15 mg tablet Indications: Acute pain of left shoulder Take 1 tablet by mouth once daily. Take with food. 20 tablet 04/13/2020 11/16/2020 Discontinued (Course of therapy completed) Start: 02-21-2019 End: 03-21-2019 take 1 tablet by mouth once daily Meloxicam 15 mg tablet Discontinued 15 mg PO DAILY 30 0 February 21, 2019 12:00am March 21, 2019 10:25am Pain in right knee pain metaxalone 800 mg oral tablet (4 sources) [...] Comment on above: Take 1 tablet by magdalena th three times daily as needed for [...] with dinner. methocarbamol 500 mg oral tablet (5 sources) Muscle Relaxant Start: 06-28-19 End: 08-31-19 take 2 tablets by mouth four times daily as needed for pain Methocarbamol 500 mg tablet Discontinued 1000 mg PO 4 TIMES DAILY as needed for Muscle pain/spasm 56 0 June 28, 2024 7:09am August 30, 2024 [...] Take by mouth. 03/18/2021 Discontinued (Duplicate Entry) nortriptyline 50 mg oral capsule (8 sources) Tricyclic Antidepressant Start: 01-26-2025 End: 04-26-2025 take 1 capsule by mouth once daily at bedtime nortriptyline (PAMELOR) 50 mg capsule Indications: Acute left-sided low back pain without sciatica , Severe recurrent major depression without psychotic features (HCC) , Headache, unspecified headache type Take 1 capsule by mouth daily at bedtime. 30 capsule 2 01/26/2025 01/31/2025 Discontinued (Discontinued by Patient) Start: 01-17-2025 End: 02-16-2025 take 2 capsules by mouth once daily at bedtime nortriptyline (PAMELOR) 10 mg capsule Indications: Acute left-sided low back pain without sciatica , Severe recurrent major depression without psychotic features (HCC) , Headache, unspecified headache type Take 2 capsules by mouth daily at bedtime. 60 capsule 01/17/2025 01/26/2025 Discontinued nystatin [id number] unt/ml oral suspension (2 sources) Polyene Antifungal [...] 10, 2018 12:00am October 31, 2024 1:01pm gerd Start: 12-10-2018 End: 11-09-2020 take 1 tablet [...] Comment on above: Take 1 tablet by magdalena twice daily. penicillin v potassium 250 mg oral tablet (8 sources) Start: 03-08-2017 End: 08-01-2017 Penicillin V [...] Comment on above: Take 1 tablet by magdalena th once daily for 90 days. Take 1 tablet by magdalena th once daily for 30 days. polysaccharide iron [...] on above: Take 1 capsule by [facility] twice daily. prochlorperazine 5 mg oral tablet (5 sources) Phenothiazine Start: 2024 End: 2024 take 1 tablet by mouth three times daily as needed for nausea and vomiting Prochlorperazine Maleate (Compazine) 5 mg tablet Discontinued 5 mg PO THREE TIMES A DAY as needed for nausea and vomiting 20 7 0 July 18, 2024 1:00am October 31, 2024 1:01pm TENS unit and electrodes cmpk (1 source) Start: 2019 End: 2019 TENS unit and electrodes cmpk Indications: Cervical spinal stenosis , Foraminal stenosis of cervical region , Chronic neck pain , Tension headache 1 Device once daily. 1 Device 12/08/2019 05/15/2020 Discontinued topiramate 25 mg oral tablet (20 sources) Start: 2022 End: 2023 take 1 tablet by mouth twice daily topiramate (TOPAMAX) 25 mg tablet Take 1 tablet by mouth two times a day. 60 tablet 5 04/13/2023 08/21/2023 Discontinued Comment on above: Take 1 tablet by magdalena th twice daily. Take 1 tablet by magdalena th two times a day. traMADol hydrochloride 50 mg oral tablet (7 sources) Opioid Agonist Start: 2022 End: 2022 take 1 tablet by mouth every four hours as needed for pain Tramadol 50 mg tablet Discontinued 50 mg PO EVERY 4 HOURS NEEDED as needed for Pain 20 0 December 10, 2022 12:00am January 09, 2023 8:29am venlafaxine 37.5 mg oral tablet (20 sources) Serotonin and Norepinephrine Reuptake Inhibitor Start: 2022 End: 2023 take 1 tablet by mouth twice daily [...] 24hr Discontinued 150 mg PO AT BEDTIME 30 0 March 21, 2019 12:00am October 31, 2024 1:01pm Start: 12-10-2018 End: 03-21-2019 take 1 tablet by mouth at bedtime Venlafaxine 75 MG tablet Discontinued 75 mg PO AT BEDTIME December 10, 2018 12:00am March 21, 2019 10:24am Comment on above: TAKE 1 TABLET BY MAGDALENA TH TWICE A DAY Take 1 tablet by magdalena th twice daily. Take 1 tablet by magdalena th two times a day. Take 1 tablet by magdalena th two times a day. take with 75mg tablet in the morning and in the evening. Problems Active Problems Problem Classification Problem Date Documented Da te Episodic/Chronic Abdominal pain (20 sources) Epigastric pain; Translations: [Epigastric pain] Onset: 5 Resolved: 5 03-12-2015 Episodic Allergic reactions (9 sources) Urticaria; Translations: [Urticaria, unspecified] Onset: 5 07-19-2023 Episodic Anxiety disorders (20 sources) Panic disorder without agoraphobia; Translations: [Panic disorder [episodic paroxysmal anxiety]] Onset: 0 Resolved: 2 06-14-2019 Chronic Cardiac dysrhythmias (7 sources) Intermittent palpitations; Translations: [Palpitations] 09-21-2022 Episodic Conditions associated with dizziness or vertigo (20 sources) Lightheadedness; Translations: [Dizziness and giddiness] Onset: 5 Episodic Contraceptive and procreative management (10 sources) Oral contraception; Translations: [Encounter for surveillance of contraceptive pills] Onset: 5 Episodic Deficiency and other anemia (2 sources) Iron deficiency anemia; Translations: [Iron deficiency anemia, unspecified] Episodic Disorders of teeth and jaw (1 source) Temporomandibular [id number] syndrome; Translations: [Arthralgia of temporomandibular joint, unspecified [...] Onset: 7 02-24-2017 Chronic Headache; including migraine (8 sources) Headache; Translations: [Headache] 07-26-2024 Episodic Headache; including migraine (2 sources) Headache; including migraine; Translations: [Headache, unspecified] Onset: 5 Immunizations and screening for infectious disease (2 sources) Contact with and (suspected) exposure to unspecified communicable disease; Translations: [Contact with or exposure to unspecified communicable disease] Onset: 5 02-08-2025 Episodic Joint disorders and dislocations; trauma-related (16 sources) Derangement of right knee; Translations: [Unspecified internal derangement of right knee] 11-28-2022 Chronic Mood disorders (20 sources) Recurrent major depression; Translations: [Major depressive disorder, recurrent, unspecified] Onset: 0 Resolved: 2 06-09-2019 Chronic Nausea and vomiting (1 source) Nausea and vomiting; Translations: [Nausea with vomiting, unspecified] 11-13-2023 Episodic Noninfectious gastroenteritis (8 sources) Gastroenteritis; Translations: [Noninfective gastroenteritis and colitis, unspecified] 01-30-2020 Episodic Nonspecific chest pain (20 sources) Chest pain; Translations: [Chest pain, unspecified] Onset: 5 04-13-2019 Episodic Osteoarthritis (20 sources) Osteoarthritis of right knee joint; Translations: [Unilateral primary osteoarthritis, right knee] Onset: 5 11-28-2022 Chronic Other bone disease and musculoskeletal deformities (5 [...] leg] 08-13-2023 Episodic Other connective tissue disease (5 sources) Plantar fasciitis of right foot; Translations: [Plantar fascial fibromatosis] 09-02-2017 Episodic Other female genital disorders (2 sources) Vaginal discharge; Translations: [Other specified noninflammatory disorders of vagina] Episodic Other gastrointestinal disorders (20 sources) Irritable bowel syndrome with diarrhea; Translations: [Irritable bowel syndrome with diarrhea] Onset: 9 01-25-2019 Chronic Other gastrointestinal disorders (1 source) Other fecal abnormalities; Translations: [Occult blood positive stool] Onset: 4 Episodic Other gastrointestinal disorders (5 sources) History of gastroesophageal reflux disease; Translations: [Personal history of other diseases of the digestive system] 07-05-2024 Episodic Other gastrointestinal disorders (5 sources) Obstipation; Translations: [Constipation, unspecified] 07-05-2024 Episodic Other gastrointestinal disorders (5 sources) Passing flatus; Translations: [Flatulence] 01-17-2025 Episodic Other gastrointestinal disorders (3 sources) Abdominal bloating; Translations: [Abdominal distension (gaseous)] 01-17-2025 Episodic Other gastrointestinal disorders (1 source) History of bypass of stomach; Translations: [Bariatric surgery status] 01-25-2025 Episodic Other gastrointestinal disorders (2 sources) Abdominal distension (gaseous); Translations: [Abdominal bloating] Onset: 5 Episodic Other gastrointestinal disorders (2 sources) Bariatric surgery status; Translations: [History of gastric bypass] Onset: 5 Episodic Other gastrointestinal disorders (1 source) Flatulence; Translations: [Flatus] Onset: 5 Episodic Other injuries and conditions due to external causes (1 source) Injury of right foot; Translations: [Unspecified injury of right foot, initial encounter] Episodic Other lower respiratory disease (1 source) Wheezing; Translations: [Wheezing] Episodic Other lower respiratory disease (1 source) Cough; Translations: [Acute cough] 04-23-2022 Episodic Other nervous system disorders (5 sources) Piriformis syndrome; Translations: [Lesion of sciatic nerve, right lower limb] 07-06-2024 Chronic Other nervous system disorders (5 sources) H/O: migraine; Translations: [Personal history of other diseases of the nervous system and sense organs] 07-06-2024 Episodic Other nervous system disorders (1 source) Personal history of other diseases of the nervous system and sense organs; Translations: [History of obstructive sleep apnea] Onset: 5 Episodic Other non-traumatic joint disorders (11 sources) Pain in right knee; Translations: [Right knee pain] 11-28-2022 Episodic Other nutritional; endocrine; and metabolic disorders (20 sources) Morbid obesity; Translations: [Morbid (severe) obesity due to excess calories] Onset: 6 11-09-2020 Chronic Other nutritional; endocrine; and metabolic disorders (1 source) Body mass index (BMI) 40.0-44.9, adult; Translations: [Class 3 severe obesity with body mass index (BMI) of 40.0 to 44.9 in adult, unspecified obesity type, unspecified whether serious comorbidity present (HCC)] Onset: 5 Chronic Other nutritional; endocrine; and metabolic disorders (5 sources) Weight gain; Translations: [Abnormal weight gain] Episodic Other screening for suspected conditions (not mental disorders or infectious disease) (10 sources) Patient encounter status; Translations: [Encounter for screening mammogram for malignant neoplasm of breast] Onset: 4 Episodic Other skin disorders (1 source) Eruption; Translations: [Rash and other nonspecific skin eruption] 07-16-2024 Episodic Other skin disorders (3 sources) Epidermoid cyst; Translations: [Epidermal cyst] 08-01-2024 Episodic Other skin disorders (3 sources) Infection of sebaceous cyst; Translations: [Sebaceous cyst] 08-04-2024 Episodic Other skin disorders (1 source) Rash and other nonspecific skin eruption; Translations: [Rash and nonspecific skin eruption] Onset: 5 Episodic Other upper respiratory disease (1 source) Seasonal allergy; Translations: [Other seasonal allergic rhinitis] 03-24-2023 Chronic Other upper respiratory disease (1 source) Chronic rhinitis; Translations: [Chronic rhinitis] Onset: 5 Chronic Other upper respiratory disease (1 source) Nasal sinus problem; Translations: [Other specified disorders of nose and nasal sinuses] Episodic Other upper respiratory infections (4 sources) Bacterial sinusitis; Translations: [Chronic sinusitis, unspecified] Onset: 5 02-19-2023 Chronic Other upper respiratory infections (20 sources) Acute sinusitis; Translations: [Acute sinusitis, unspecified] Onset: 5 04-19-2019 Episodic Otitis media and related conditions (1 source) Acute secretory otitis media; Translations: [Other acute nonsuppurative otitis media, left ear] 02-19-2023 Episodic Residual codes; unclassified (20 sources) Obstructive sleep apnea syndrome; Translations: [Obstructive sleep apnea (adult) (pediatric)] Onset: 0 12-28-2019 Chronic Residual codes; unclassified (2 sources) Obstructive sleep apnea (adult) (pediatric); Translations: [Obstructive sleep apnea (adult) (pediatric)] Onset: 0 Chronic Residual codes; unclassified (1 source) Flushing; Translations: [Flushing] 02-05-2023 Episodic Residual codes; unclassified (2 sources) Early satiety; Translations: [Early satiety] 01-25-2025 Episodic Residual codes; unclassified (1 source) Early satiety; Translations: [Early satiety] Onset: 5 Episodic Residual codes; unclassified (1 source) Flushing; Translations: [Facial flushing] Onset: 5 Episodic Sprains and strains (16 sources) Neck sprain; Translations: [Sprain of joints and ligaments of unspecified parts of neck, initial encounter] Episodic Substance-related disorders (8 sources) Tobacco user; Translations: [Nicotine dependence, unspecified, uncomplicated] 09-06-2015 Chronic Unclassified (1 source) NO SHOW 02-24-2024 Unclassified (1 source) Cough, unspecified; Translations: [Cough, unspecified] Onset: 5 Unclassified (1 source) Class 3 severe obesity with body mass index (BMI) of 40.0 to 44.9 in adult, unspecified obesity type, unspecified whether serious comorbidity present (HCC); Translations: [Class 3 severe obesity with body mass index (BMI) of 40.0 to 44.9 in adult, unspecified obesity type, unspecified whether serious comorbidity present (HCC)] Onset: 5 Unclassified (1 source) Acute left-sided low back pain without sciatica; Translations: [Acute left-sided low back pain without sciatica] Onset: 0 Urinary tract infections (8 sources) Cystitis; Translations: [Cystitis, unspecified without hematuria] 01-30-2020 Episodic Viral infection (2 sources) Disease caused by 2019-nCoV; Translations: [COVID-19] 02-19-2023 Episodic Past or Other Problems Problem Classification Problem Date Documented Da te Episodic/Chronic Abdominal hernia (20 sources) Hiatal hernia; Translations: [Diaphragmatic hernia without obstruction or gangrene] Onset: 1 Resolved: 1 11-09-2020 Episodic Adjustment disorders (20 sources) Adjustment disorder [...] cycle] Onset: 2 Resolved: 3 03-18-2013 Chronic Other aftercare (20 sources) Polypharmacy ; Translations: [Other residential (current) drug therapy] Onset: 0 09-23-2019 Episodic Other aftercare (20 sources) Long-term current use of drug therapy; Translations: [Other longwall 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 operator (current) drug therapy] Onset: 0 08-29-2024 Episodic Other aftercare (1 source) Other longwall shearer operator (current) drug therapy; Translations: [Encounter for long-term current use of medication] Onset: 5 Episodic Other bone disease and musculoskeletal deformities (20 sources) Somatic dysfunction of cervicothoracic region; Translations: [Segmental and somatic dysfunction of cervical region] Onset: 9 01-25-2019 Episodic Other bone disease and musculoskeletal deformities (1 source) Segmental and somatic dysfunction of cervical region; Translations: [Cervicothoracic somatic dysfunction] Onset: 9 Episodic Other complications of (20 sources) Reduced movement; Translations: [Decreased movements, unspecified trimester, not applicable or unspecified] Onset: 8 Resolved: 8 05-12-2008 Episodic Other connective tissue disease (20 sources) Fibromyalgia; Translations: [Fibromyalgia] Onset: 7 08-20-2016 Episodic Other connective tissue disease (2 sources) Fibromyalgia; Translations: [Fibromyalgia] Onset: 7 Episodic Other gastrointestinal disorders (20 sources) Diarrhea; Translations: [Diarrhea, unspecified] Onset: 9 12-16-2023 Episodic Other gastrointestinal disorders (20 sources) Occult blood in stools; Translations: [Other fecal abnormalities] Onset: 4 12-23-2023 Episodic Other gastrointestinal disorders (2 sources) Diarrhea, unspecified; Translations: [Diarrhea, unspecified type] Onset: 4 Episodic Other non-traumatic joint disorders (20 sources) Shoulder pain; Translations: [Pain in left shoulder] Onset: 0 04-23-2020 Episodic Other non-traumatic joint disorders (20 sources) Pain in left shoulder; Translations: [Pain in joint, shoulder region] Onset: 0 04-23-2020 Episodic Other skin disorders (20 sources) Sebaceous cyst of skin; Translations: [Sebaceous [...] pain; Translations: [Lumbago] Onset: 0 07-26-2009 Episodic Unclassified (1 source) History of bypass of stomach 01-25-2025 Results Test Name Value Interpretation Reference Range Facility Orthopedic Visit Reporton Orthopedic Visit Report [facility] [address] [place] [address] OFFICE VISIT Date of Service: 03/29/25 MR#: [id number] Acct: [id number] Name: FERNANDA HERNANDEZ Rep #: [id number] : 1980 Provider: REN hutchison Age/Sex: 45/F Location: [facility] Status: Signed Intake Vital Signs 03/21/25 08:22 03/29/25 09:01 Height 5 ft 3 in 5 ft 3 in Weight: 240 lb BMI 42.5 Intake Visit Reasons: LEFT KNEE Chief Complaint: Left knee pain Accompanied by: Self Is patient in pain?: Yes Pain scale (1-10): 2 Allergies lansoprazole (From Prevacid) Allergy (Verified 03/29/25 09:32) Unknown rabeprazole (From Aciphex) Allergy (Verified 03/29/25 09:32) Hives Sulfa (Sulfonamide Antibiotics) Allergy (Verified 03/29/25 09:32) Unknown omeprazole (From Prilosec) Adverse Reaction (Verified 03/29/25 09:32) Other omeprazole magnesium (From Prilosec) Adverse Reaction (Verified 03/29/25 09:32) Other Medications ???Medication ???Instructions ???Recorded ???Confirmed ???Type norgestimate 0.25 mg-ethinyl 1 ea PO DAILY bcp 12/10/18 5 History estradiol 0.035 mg tablet ascorbic acid (vitamin C) 500 mg 500 mg PO DAILY 01/07/25 03/29/25 History tablet (C-500) lamotrigine 150 mg tablet 150 mg PO DAILY 01/07/25 03/29/25 History meclizine 25 mg tablet 25 mg PO Q6H PRN dizziness 5 03/29/25 History multivitamin (Daily Multi-Vitamin 1 tab PO DAILY 01/07/25 03/29/25 History tablet) clonazepam 0.5 mg tablet 0.25 mg PO QDAY PRN 03/08/2503/29 History magnesium glycinate 100 mg (as 200 mg PO QDAY 03/08/25 03/29/25 H istory glycinate) tablet baclofen 5 mg tablet 5 mg PO TID PRN 03/21/25 03/29/25 History biotin 10,000 mcg chewable tablet mcg PO 03/21/25 03/29/25 History calcium carbonate 600 mg PO QDAY 03/21/25 03/29/25 H istory cholecalciferol (vitamin D3) 50 25 mcg PO DAILY 03/21/25 03/29/25 History mcg (2,000 unit) tablet (D3 DOTS) duloxetine 40 mg capsule,delayed 40 mg PO QDAY 03/21/25 03/29/25 Hi story release gabapentin 100 mg capsule 100 mg PO BID 03/21/25 03/29/25 Hi story lamotrigine 100 mg tablet 100 mg PO QDAY 03/21/25 03/29/25 H istory Have you fallen in the past year?: No PFSH Medical History Fibromyalgia CLIFTON (obstructive sleep apnea) GERD (gastroesophageal reflux disease) Anxiety disorder Depression Osteoarthritis of left knee Back pain Difficulty balancing Knee pain Chest pain Migraines Fatigue Stomach ulcer Shoulder pain SOB (shortness of breath) Arthritis Surgical History History of esophagogastroduodenoscopy (EGD) History of colonoscopy Gastric bypass status for obesity History of cholecystectomy History of tonsillectomy History of bilateral breast reduction surgery Social History Smoking Status: Former smoker HPI LEFT KNEE Details: This documentation accurately reflects the service provided and the decisions made by , REN Lindsay 03/29/25 0900. Part of today???s visit was documented by Treasure Tay MA, acting as scribe. FERNANDA HERNANDEZ is a 45 year old F here today for left knee pain and f/u recent denial for gel injections per her insurance provider. Patient states that her pain is a 2 today. She is having pain in her left knee. Experiencing popping and grinding sensation to medial and can feel my meniscus pop back into place with extending leg, no hx meniscal injury that pt is aware of. Painful to touch of the medial knee region. Hx bad knees prior to bariatric surgery in 2019, no identified injuries. Patient has been experiencing left knee pain for several years with no identified time or significant aggravator. Aggravated with walking, fast pace, inclines worse than declines, step use. Cortisone injection in October did not really help, but did go on vacation 1-2 weeks after and experienced increased pain and swelling with increased activity. Patient has had 2 rounds of viscosupplementation, first in December to January 2023 in which she experienced significant improvements. She repeated the series of 3 injections in August 2024 and did not experience significant improvements. Patient was under the impression she had an additional 2 shots available, however when she went to pursue those they were no longer approved by her insurance. Patient is interested in attempting viscosupplementation for symptom control. Inquires about L mid axillary rib pain for years, no injuries no prior evaluation, only experiences sx with lying flat. ROS Const All systems reviewed are unremarkable except as noted in H and other (A O x 3, no appa (more content not included)... Normal [facility] Ribs Uni Min 3V w/PA Cheston 03-29-2025 Ribs Uni Min 3V w/PA Chest [facility] [address], [place] [id number] Ribs Uni Min 3V w/PA Chest MR#: [id number] Acct: [id number] Name: FERNANDA HERNANDEZ Rep #: [id number] : 1980 F 45 From: Coy Connolly MD PCP: Bettina Fuentes, SMOG TECHNICIAN Status: DEP AMB Study: Ribs Uni Min 3V w/PA Chest Date of Exam: 03/29 Exam# [id number] Ordering Dr: Lindsay Rivera PROCEDURE: RIBS UNI MIN 3V W/PA CHEST 03/29/2025 REASON FOR EXAM: L LOWER RIB PAIN, MID AXILLARY, SX FOR YRS, NO INJURY TECHNIQUE: Procedure Code: RADRIB Modality: DX Procedure: RIBS UNI MIN 3V W/PA CHEST COMPARISON: July 18, 2024 chest x-ray FINDINGS: Frontal view of the chest with four views of the left ribs. Heart size and mediastinal configuration are within normal limits. There is no focal infiltrate or consolidation. There is no pneumothorax or effusion. There is no visible rib fracture. Surgical clips are noted in the epigastric region to the left of midline. RAD/Ribs Uni Min 3V w/PA Chest IMPRESSION: There is no rib fracture identified. Reading Location: [facility] CC: FLORES Fuentes; ARMATURE WINDER REPAIRER-C Lindsay Rivera Safety Lamp Keeper: Signed [facility] CNOVon 03-27-2025 CNOV Office Visit (SLEWST ) FERNANDA HERNANDEZ ([id number]) 1980 F Date Time Provider Department 03/27/25 9:20 AM PARMJIT MACK JR During your visit today, we recorded the following information about you: Pulse Respiration Blood pressure Weight 80/minute 16/minute 124/74 108.7 kg Brenda Justin LPN 03/27/2025 10:03 AM Signed Parmjit Mack Jr., MD 03/27/2025 10:03 AM Signed NEW PATIENT (CONSULT) HISTORY AND PHYSICAL EXAM PRIMARY CARE PHYSICIAN: Bettina Fuentes APRN.CNP REASON FOR CONSULT: See below. REFERRING PHYSICIAN: Bettina Fuentes A* CHIEF COMPLAINT: Sleep apnea evaluation Consultation requested by Bettina Fuentes A* for an opinion regarding chief complaint of Patient presents with: New Patient: CLIFTON-May need CPAP again due to regaining weight as suspected by provider. BPs elevated again. and my final recommendations will be communicated back to the requesting physician by way of shared medical record or letter via US mail. HISTORY OF PRESENT ILLNESS: Fernanda Hernandez is a 45 year old female, BMI 43.82 kg/m2 with a PMH significant for CLIFTON dx'd in 2019 by [facility] showing PEDRO/AHI of 15.6 (worse supine). Last saw Trent Mejia in sleep in 2020 at which time started on Auto PAP. Lost about 140 pounds (bypass surgery) following that study with d/c of PAP. Has since gained 40 pounds back. Patient states had appt last week, and BP has been rising and they were concerned that CLIFTON might be worse again. Patient is typically prone. Not typically tired. No issues falling asleep. Bedtime about 9PM. Rarely wakes during the night to use the bathroom. Does not know if snores. No dry mouth. No AM headaches. Wakes typically about 6AM, but on works 2 shifts per week in which has to wake at 445AM. Usually finds sleep restorative, but on days work, snoozes alarm twice. Not tired during the day. No naps during the day. Not tired driving. No acting out dreams. No narcolepsy tetrad. No RLS symptoms in AM. PHQ 9 Data More data exists 02/23/2025 01/31/2025 10/11/2024 PHQ-9 All Questions Little interest or pleasure in doing things: 1 2 1 Feeling down, depressed, or hopeless: 1 3 1 Trouble falling or staying asleep, or sleeping too much 1 2 1 Feeling tired or having little energy 1 1 1 Poor appetite or overeating 0 1 1 Feeling bad about yourself - or that you are a failure or have let yourself or your family down 1 1 1 Trouble concentrating on things, such as reading the newspaper or watching television 0 2 3 Moving or speaking so slowly that other people could have noticed. Or the opposite - being so fidgety or restless that you have been moving around a lot more than usual 0 0 0 Thoughts that you would be better off , or of hurting yourself in some way 0 0 1 PHQ-9 Score 5 12 10 LIZY 7 Data More data exists 02/23/2025 10/11/2024 08/30/2024 LIZY-7 All Questions Feeling nervous, anxious, or on edge More than half the days Nearly Everyday More than half the days Not being able to stop or control worrying Several days Nearly Everyday Several days Worrying too much about different things Several days Nearly Everyday Several days Trouble relaxing Several days Nearly Everyday Not at all Being so restless that it is hard to sit still Not at all More than half the days Not at all Becoming easily annoyed or irritable More than half the days Nearly Everyday Several days Feeling afraid, as if something awful might happen Not at all Several days Not at all LIZY-7 Score 7 18 5 PROMIS-10 More data exists PROMIS Global Health - (T-Scores - the mean of general population = 50. Five points is a clinically meaningful difference.) Physical T-Score Mental T-Score 01/31/2025 39.8 38.8 07/21/2024 39.8 45.8 12/15/2023 44.9 - Clyde Sleepiness Scale: Sitting and readin Watching TV: 1 Sitting, inactive in a public place (e.g. a theatre or a meeting): 2 As a passenger in a car for an hour without a break: 2 Lying down to rest in the afternoon when circumstances permit: 3 Sitting and talking to someone: 0 Sitting quietly after a lunch without alcohol: 1 In a car, while stopped for a few minutes in the traffic: 1 Total: 12 REVIEW OF SYSTEMS GENERAL:No weight loss, malaise or fevers. HEENT:Negative for frequent or significant headaches, No changes in hearing or vision, no nose bleeds or other nasal problems NECK:Negative for lumps, goiter, pain and significant neck swelling RESPIRATORY: Negative for cough, wheezing or shortness of breath. CARDIOVASCULAR: Negative for chest pain, leg swelling or palpitations. GASTROINTESTINAL: Negative for abdominal discomfort, blood in stools or black stools or change in bowel habits GENITOURINARY: No history of dysuria, frequency or incontinence MUSCULOSKELETAL: Negative for joint pain or swelling, back pain or muscle pain. NEUROLOGIC:Negativ (more content not included)... Normal [facility] Urgent Care Visit Reporton 1 0-2025 Urgent Care Visit Report [facility] [address], [address] [place] [address] OFFICE VISIT Date of Service: 03/22/25 MR#: [id number] Acct: [id number] Name: FERNANDA HERNANDEZ Rep #: [id number] : 1980 Provider: OG Nuno Age/Sex: 45/F Location: [facility] Status: Signed Intake Vital Signs 03/21/25 08:22 03/22/25 08:34 Height 5 ft 3 in Weight: 242 lb BMI 42.8 BP 139/92 H 122/82 H Blood Pressure Location Lt brachial Lt brachial Position Sitting Sitting Respiration 16 16 Pulse 72 82 Pulse Source Monitor NIBP Temp 99.1 F Temp Source Oral Pulse Oximetry (%) 98 Oxygen Delivery Method room air Intake Visit Reasons: L EAR PAIN Chief Complaint: left ear/neck pain 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 denies fever, cough, congestion, ST, ear drainage PFSH Medical History Fibromyalgia CLIFTON (obstructive sleep apnea) GERD (gastroesophageal reflux disease) Anxiety disorder Depression Osteoarthritis of left knee Back pain Difficulty balancing Knee pain Chest pain Migraines Fatigue Stomach ulcer Shoulder pain SOB (shortness of breath) Arthritis Surgical History History of esophagogastroduodenoscopy (EGD) History of colonoscopy Gastric bypass status for obesity History of cholecystectomy History of tonsillectomy History of bilateral breast reduction surgery Social History Smoking Status: Former smoker HPI HPI Chief Complaint: left ear/neck pain Details: FERNANDA HERNANDEZ, is a 45 F who presents to the office today for initial evaluation in the [facility] for approximately 5-7 day history of persistent myalgias, fatigue, congestion with left ear/submandibular discomfort, noting myalgias and fatigue and congestion have all subsided though the left ear and submandibular discomfort remain. No complaints of fever, chills, cough, PEREZ, or nausea/ diarrhea. Patient notes no complaints of chest pain or shortness of breath or dyspnea on exertion. Unsure if contacts recently dx???d w/ similar URI complaints. No hsli-abh-maruhhj medications have been taken to assist. No other associated symptoms and no other alleviating/aggravating factors. ROS Const Constitutional: No other (As above) Exam Const General: cooperative, healthy appearing and no acute distress Orientation: alert, awake HENNE Head: normal to inspection Ears: hearing grossly [...] related structures Neck Neck: normal visual inspection, no meningeal signs and supple Neck mass: No Thyroid: thyroid normal Lymphatic: Left submandibular lymph node swelling/tenderness to touch Chest Chest palpation inspection: normal inspection of the chest Resp Effort Inspection: normal respiratory effort, able to speak in complete sentences and no unsolicited cough during today's exam Auscultation: Bilateral: Clear to Auscultation Cardio Palpation: normal PMI Rate: Regular Rhythm: regular rhythm Heart Sounds: S1 normal, S2 normal Pulses: radial pulses present Skin General: no rashes or lesions noted Neuro General: patient alert, patient awake Cognition: normal cognition Speech: speech normal Psych Appearance: grossly normal Mental Status: mental status grossly normal Mood: congruent mood Affect: normal affect Speech and Movement: speech and movement normal Attitude: cooperative Diagnoses Left ear ache H92.02 URI (upper respiratory infection) J06.9 Assessment and Plan Assessment and Plan (1) left earache: Status: Acute (2) URI (upper respiratory infection): Status: Acute Plan: See POC results. Supportive measures as instructed today. (more content not included)... Normal [facility] Cardiology Visit Reporton Cardiology Visit Report [facility] [address] [place] [address] OFFICE VISIT Date of Service: 03/21/25 MR#: [id number] Acct: [id number] Name: FERNANDA HERNANDEZ Rep #: [id number] : 1980 Provider: Dr. Cedric bowen MD Age/Sex: 45/F Location[place] [facility] [place] Status: Signed with Addenda ADDENDUM by Dr. Cedric Stevens MD on 03/21/25 at 0909 HPI History of Present Illness Details: Lipids from January 17, 2025 showed a total cholesterol of 154, HDL excellent at 81, LDL 58, and triglycerides 77. This is on no statin therapy. Assessment and Plan Assessment and Plan (1) Chest pain: Status: Chronic Qualifiers: Chest pain type: unspecified Qualified Code(s): R07.9 - Chest pain, unspecified (2) Anxiety disorder: Status: Chronic Qualifiers: Anxiety disorder type: unspecified anxiety disorder Qualified Code(s): F41.9 - Anxiety disorder, unspecified (3) Fibromyalgia: Status: Acute (4) CLIFTON (obstructive sleep apnea): Status: Acute Orders: Orders Cardiac Angiography CTA Today F41.9 - Anxiety disorder, unspecified, M79.7 - Fibromyalgia, R07.9 - Chest pain, unspecified Plan Details Follow Up: 1 Year (With SABRINA and as needed) 03/21/25 0909 Date Cedric Stevens MD cc: FLORES Fuentes * Signed HPI HPI History of Present Illness Details: Patient is a pleasant 45-year-old white female who comes in today for new patient visit for chest pain. 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 Patient reports that she has had sharp sticky type pains that are mostly midsternal slightly the left side of her chest and described occasional tightness with this. She feels like sometimes she has skipped beats that are irregular and she has noted shortness of breath with going up a flight of stairs. The patient cannot predict these chest pains they have not awoken her from sleep. She does notice a send to be more common when she is at rest but she has had them with activity. She does make the comment that she is nervous about it when it does occur. She really cannot come up with any rhyme or reason for the chest symptoms. The patient does have a history of fibromyalgia and migraine headaches. She was recently evaluated in December 2024 in the emergency department due to vertigo. Patient does have a history of some lightheadedness and dizziness felt to be related to vertigo in the past. She denies any PND orthopnea denies any lower extremity edema. The patient has a history of obstructive sleep apnea she underwent gastric bypass and lost a lot of weight and stopped her treatment. She has now gained some of the weight back but is not utilizing her CPAP. The patient also has a history of behavioral health issues with anxiety she sees psychiatry and is on as needed medical therapy. There is no family history of early coronary disease she has developed hypertension over the last several months she is not hyperlipidemic she is not diabetic and she does not smoke she quit smoking in 2013. Patient had an echocardiogram done April 2018 the LV function was normal right ventricle was normal EF was 63% on the left ventricle there were no significant valvular abnormalities. The patient had a remote Holter monitor in 2017 where palpitations were correlated with PVCs. The patient also had a CT of the head and neck January 07, 2025 when she was in the emergency department this was unremarkable without any stenosis no aneurysm or vascular malformations noted. ECG done January 07, 2025 was sinus bradycardia 56 bpm otherwise was normal. 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 Required: No Accompanied by: Self Is patient in pain?: No Allergies lansoprazole (From Prevacid) Allergy (Verified 03/21/25 08:22) Unknown rabeprazole (From Aciphex) Allergy (Verified 03/21/25 08:22) Hives Sulfa (Sulfonamide Antibiotics) Allergy (Verified 03/21/25 08:22) Unknown omeprazole (From Prilosec) Adverse Reaction (Verified 03/21/25 08:22) Other omeprazole magnesium (From Prilosec) Adverse Reaction (Verified 03/21/25 08:22) Other Medications ???Medication ???Instructions ???Recorded ???Confirmed ???Type norgestimate 0.25 mg-ethinyl 1 ea PO DAILY bcp 12/10/18 5 History estradiol 0.035 mg tablet ascorbic acid (vitamin C) 500 mg 500 mg PO DAILY 01/07/25 03/21/25 History tablet (C-500) lamotrigine 150 mg tablet 150 mg PO DAILY 01/07/25 03/21/25 History meclizine 25 mg tablet 25 mg PO Q6H PRN dizziness (more content not included)... Normal [facility] CNOVon 03-16-2025 CNOV Office Visit (OBGYWM ) FERNANDA HERNANDEZ ([id number]) 1980 F Date Time Provider Department 03/16/25 9:00 AM DEBORAH WHITTAKER OBGYWM During your visit today, we recorded the following information about you: Blood pressure Weight 128/76 110.1 kg Deborah Whittaker APRN.CNP 03/16/2025 9:26 AM Signed Patient declined athletic monitorDiamond Michael is a 44 year old who presents for an annual gynecologic exam without complaints. Menses: no menses - continuous OCPs. Contraception: combined hormonal contraceptives HPV vaccine: No Last Pap: 02/13/2023 normal HPV: 02/07/2023 negative History of abnormal pap: Yes Last mammogram: 2023 normal Sexually active: No OB History Gravida1 Para1 Term0 Preterm0 AB0 Living1 SAB0 IAB0 Ectopic0 Multiple0 Live Births0 Music Director History LMP: 08/28/2020 (Approximate), Drug Induced Amenorrhea Age at Menarche: Age at First : Age at Menopause: Music Director History Comments: Sexual Activity: Not Currently; Male [...] date: 07/22/2001 Quit date: 07/22/2013 Years since quittin.6 Smokeless tobacco: Never Vaping Use Vaping status: [...] discussed with the Patient or Patient's Authorized Wool Classer. As applicable, any other physician, advance practice provider, medical student, or other health professional student that will be observing or involved in the sensitive examination for educational or training purposes was discussed with the Patient or Authorized Wool Classer. The Patient or Authorized Wool Classer has agreed to proceed with the sensitive examination. (Sensitive examination includes inspection and/or palpation of the breasts, pelvis, prostate and anorectal regions). EXAM: BP 128/76 Wt 242 lb 12.8 oz (110.1kg) LMP 08/28/2020 GENERAL: pleasant, female in no apparent distress HEENT: Normocephalic, atraumatic, mucus membranes moist, and no lesions DERMATOLOGY: Normal, without lesions, non-icteric, and non-hirsute BREAST: soft, non-tender, symmetric, no dominant mass, normal nipple-areolar complex, no lymphadenopathy, and no nipple discharge CHEST: Normal inspiratory effort ABDOMEN: soft, non-tender, and no masses PELVIC: external genitalia normal, normal Bartholin's glands, urethra, [place]'s glands, no vulvar lesions, no cervical lesions, physiologic discharge present, normal appearing perineal body and perianal region BIMANUAL: uterus normal size, shape and consistency, no adnexal masses, and non-tender RECTOVAGINAL: deferred. NEURO: alert and oriented x3,exam grossly non-focal EXTREMITIES: normal ASSESSMENT/PLAN: 1) Health maintenance: Pap/HPV up to date. Mammogram ordered. Nutrition, exercise and routine health maintenance exams revi (more content not included)... Normal [facility] JEREMY SCREENING W TOMOon 03-16 JEREMY SCREENING W YANELY * * *Final Report* * * DATE OF EXAM: Mar 16 2025 11:08AM [id number] - JEREMY SCREENING W YANELY / PROCEDURE REASON: multiple diagnoses * * * * Physician Interpretation * * * * RESULT: [address] [place] [address] #[id number] - [facility] SCREENING W YANELY HISTORY: 44 year-old patient presents for screening. Patient is asymptomatic in both breasts. Patient states no personal history of breast cancer. COMPARISON STUDIES: The present examination has been compared to prior imaging studies dated 03/17/2019 (mammogram), 06/07/2020 (mammogram) and 08/05/2023 (mammogram). MAMMOGRAM TECHNIQUE: The study was acquired using full field digital technology and interpreted from soft copy. Digital Breast Tomosynthesis (DBT) images were obtained and used to assist in the interpretation of this examination. MAMMOGRAM FINDINGS: There are scattered areas of fibroglandular density. There is a focal asymmetry in the anterior depth of the left breast. No suspicious masses, calcifications or other abnormalities are seen in the right breast. IMPRESSION: The focal asymmetry in the anterior depth of the left breast requires additional evaluation. Diagnostic mammogram with possible ultrasound is recommended. BI-RADS Category 0: Incomplete: Needs Additional Imaging Evaluation RISK: Based on the Tyrer-Cuzick (TC) risk assessment model, this patient has a 8.8% lifetime risk of developing breast cancer, meaning they are at average risk for developing breast cancer. However, this is only an estimate based on available history provided on the patient's questionnaire. We encourage all patients to talk with their providers about these results, further recommendations for managing breast health, and appropriate supplemental screening options if the patient has dense breast tissue. REF#[id number]. Interpreting Radiologist: Rosmery Mcmahon M.D. Electronically signed on: 03/17/2025 Safety Lamp Keeper: ABDIEL Transcribe Date/Time: Mar 16 2025 10:52A Dictated by: ROSMERY MCMAHON MD This examination was interpreted and the report reviewed and electronically signed by: ROSMERY MCMAHON MD on Mar 17 2025 12:58PM EST [id number] Normal [facility] ALGN RESP DISEASE PROF REG 5 on 02-21-2025 A. alternata IgE Qn (S) <0.35 Normal <0.35 [facility] Comment on above: Order Comment: Speci men Type: BLOOD SPECIMENOrdering Facility: [facility] Address: [address] [place] [address] Performed By: #### L [id number] ####[facility] LABCLIA [id number] [place] [address] [place] A. alternata IgE RAST class (S) Normal [facility] Comment on above: Order Comment: Speci men Type: BLOOD SPECIMENOrdering Facility: [facility] Address: [address] [place] [address] Result Comment: Robbie rgen class is no longer reported Performed By: #### L [id number] ####[facility] LABIA [id number] [place] [address] [place] A. fumigatus IgE Qn (S) <0.35 Normal <0.35 [facility] Comment on above: Order Comment: Speci men Type: BLOOD SPECIMENOrdering Facility: [facility] Address: [address] [place] [address] Performed By: #### L [id number] ####[facility] LABIA [id number] [place] [address] [place] A. fumigatus IgE RAST class (S) Normal [facility] Comment on above: Order Comment: Speci men Type: BLOOD SPECIMENOrdering Facility: [facility] Address: [address] [place] [address] Result Comment: Robbie rgen class is no longer reported Performed By: #### L [id number] ####[facility] LABCLIA [id number] [place] [address] [place] Tunisian house dust mite IgE Qn (S) <0.35 Normal <0.35 [facility] Comment on above: Order Comment: Speci men Type: BLOOD SPECIMENOrdering Facility: [facility] Address: [address] [place] [address] Performed By: #### L [id number] ####[facility] LABIA [id number] [place] [address] [place] Tunisian house dust mite IgE RAST class (S) Normal [facility] Comment on above: Order Comment: Speci men Type: BLOOD SPECIMENOrdering Facility: [facility] Address: [address] [place] [address] Result Comment: Robbie rgen class is no longer reported Performed By: #### L [id number] ####[facility] LABCLIA [id number] [place] [id number] [place] Bermuda grass IgE Qn (S) <0.35 Normal <0.35 [facility] Comment on above: Order Comment: Speci men Type: BLOOD SPECIMENOrdering Facility: [facility] Address: [address] [place] [address] Performed By: #### L [id number] ####[facility] LABCLIA [id number] [place] [address] [place] Bermuda grass IgE RAST class (S) Normal [facility] Comment on above: Order Comment: Speci men Type: BLOOD SPECIMENOrdering Facility: [facility] Address: [address] [place] [address] Result Comment: Robbie rgen class is no longer reported Performed By: #### L [id number] ####[facility] LABCLIA [id number] [place] [id number] [place] Boxelder IgE Qn (S) <0.35 Normal <0.35 [facility] Comment on above: Order Comment: Speci men Type: BLOOD SPECIMENOrdering Facility: [facility] Address: [address] [place], [place] [address] Performed By: #### L [id number] ####[facility] LABCLIA [id number] [place] [id number] [place] Boxelder IgE RAST class (S) Normal [facility] Comment on above: Order Comment: Speci men Type: BLOOD SPECIMENOrdering Facility: [facility] Address: [address] [place] [address] Result Comment: Robbie rgen class is no longer reported Performed By: #### L [id number] ####[facility] LABCLIA [id number] [place] [address] [place] C. herbarum IgE Qn (S) <0.35 Normal <0.35 [facility] Comment on above: Order Comment: Speci men Type: BLOOD SPECIMENOrdering Facility: [facility] Address: [address] [place] [address] Performed By: #### L [id number] ####[facility] LABIA [id number] [place] [address] [place] C. herbarum IgE RAST class (S) Normal [facility] Comment on above: Order Comment: Speci men Type: BLOOD SPECIMENOrdering Facility: [facility] Address: [address] [place] [address] Result Comment: Robbie rgen class is no longer reported Performed By: #### L [id number] ####[facility] LABIA [id number] [place] [address] [place] Cat dander IgE Qn (S) <0.35 Normal <0.35 [facility] Comment on above: Order Comment: Speci men Type: BLOOD SPECIMENOrdering Facility: [facility] Address: [address] [place] [address] Performed By: #### L [id number] ####[facility] LABCLIA [id number] [place] [address] [place] Cat dander IgE RAST class (S) Normal [facility] Comment on above: Order Comment: Speci men Type: BLOOD SPECIMENOrdering Facility: [facility] Address: [address] [place] [address] Result Comment: Robbie rgen class is no longer reported Performed By: #### L [id number] ####[facility] LABCLIA [id number] [place] [id number] [place] Cocklebur IgE Qn (S) <0.35 Normal <0.35 [facility] Comment on above: Order Comment: Speci men Type: BLOOD SPECIMENOrdering Facility: [facility] Address: [address] [place] [address] Performed By: #### L [id number] ####[facility] LABCLIA [id number] [place] [address] [place] Cocklebur IgE RAST class (S) Normal [facility] Comment on above: Order Comment: Speci men Type: BLOOD SPECIMENOrdering Facility: [facility] Address: [address] [place] [address] Result Comment: Robbie rgen class is no longer reported Performed By: #### L [id number] ####[facility] LABCLIA [id number] [place] [address] [place] Cockroach IgE Qn (S) <0.35 Normal <0.35 [facility] Comment on above: Order Comment: Speci men Type: BLOOD SPECIMENOrdering Facility: [facility] Address: [address] [place] [address] Performed By: #### L [id number] ####[facility] LABCLIA [id number] [place] [address] [place] Cockroach IgE RAST class (S) Normal [facility] Comment on above: Order Comment: Speci men Type: BLOOD SPECIMENOrdering Facility: [facility] Address: [address] [place], [place] [address] Result Comment: Robbie rgen class is no longer reported Performed By: #### L [id number] ####[facility] LABCLIA [id number] [place] [id number] [place] Common Pigweed IgE Qn (S) <0.35 Normal <0.35 [facility] Comment on above: Order Comment: Speci men Type: BLOOD SPECIMENOrdering Facility: [facility] Address: [address] [place] [address] Performed By: #### L [id number] ####[facility] LABCLIA [id number] [place] [address] [place] Common Pigweed IgE RAST class (S) Normal [facility] Comment on above: Order Comment: Speci men Type: BLOOD SPECIMENOrdering Facility: [facility] Address: [address] [place] [address] Result Comment: Robbie rgen class is no longer reported Performed By: #### L [id number] ####[facility] LABCLIA [id number] [place] [address] [place] Common Ragweed IgE Qn (S) <0.35 Normal <0.35 [facility] Comment on above: Order Comment: Speci men Type: BLOOD SPECIMENOrdering Facility: [facility] Address: [address] [place] [address] Performed By: #### L [id number] ####[facility] LABCLIA [id number] [address] [place] Common Ragweed IgE RAST class (S) Normal [facility] Comment on above: Order Comment: Speci men Type: BLOOD SPECIMENOrdering Facility: [facility] Address: [address] [place] [address] Result Comment: Robbie rgen class is no longer reported Performed By: #### L [id number] ####[facility] LABCLIA [id number] [place] [id number] [place] Harris IgE Qn (S) <0.35 Normal <0.35 [facility] Comment on above: Order Comment: Speci men Type: BLOOD SPECIMENOrdering Facility: [facility] Address: [address] [place] [address] Performed By: #### L [id number] ####[facility] LABCLIA [id number] [address] [place] [address] [place] Harris IgE RAST class (S) Normal [facility] Comment on above: Order Comment: Speci men Type: BLOOD SPECIMENOrdering Facility: [facility] Address: [address] [place] [address] Result Comment: Robbie rgen class is no longer reported Performed By: #### L [id number] ####[facility] LABCLIA [id number] [place] [id number] [place] Dog dander IgE Qn (S) <0.35 Normal <0.35 [facility] Comment on above: Order Comment: Speci men Type: BLOOD SPECIMENOrdering Facility: [facility] Address: [address] [place] [address] Performed By: #### L [id number] ####[facility] LABCLIA [id number] [address] [place] Dog dander IgE RAST class (S) Normal [facility] Comment on above: Order Comment: Speci men Type: BLOOD SPECIMENOrdering Facility: [facility] Address: [address] [place] [address] Result Comment: Robbie rgen class is no longer reported Performed By: #### L [id number] ####[facility] LABCLIA [id number] [place] [id number] [place] Kenyan plantain IgE Qn (S) <0.35 Normal <0.35 [facility] Comment on above: Order Comment: Speci men Type: BLOOD SPECIMENOrdering Facility: [facility] Address: [address] [place], [place] [address] Performed By: #### L [id number] ####[facility] LABCLIA [id number] [place] [id number] [place] Kenyan plantain IgE RAST class (S) Normal [facility] Comment on above: Order Comment: Speci men Type: BLOOD SPECIMENOrdering Facility: [facility] Address: [address] [place] [address] Result Comment: Robbie rgen class is no longer reported Performed By: #### L [id number] ####[facility] LABCLIA [id number] [place] [address] [place] house dust mite IgE Qn (S) <0.35 Normal <0.35 [facility] Comment on above: Order Comment: Speci men Type: BLOOD SPECIMENOrdering Facility: [facility] Address: [address] [place] [address] Performed By: #### L [id number] ####[facility] LABCLIA [id number] [address] [place] house dust mite IgE RAST class (S) Normal [facility] Comment on above: Order Comment: Speci men Type: BLOOD SPECIMENOrdering Facility: [facility] Address: [address] [place] [address] Result Comment: Robbie rgen class is no longer reported Performed By: #### L [id number] ####[facility] LABCLIA [id number] [place] [address] [place] Goosefoot IgE Qn (S) <0.35 Normal <0.35 [facility] Comment on above: Order Comment: Speci men Type: BLOOD SPECIMENOrdering Facility: [facility] Address: [address] [place] [address] Performed By: #### L [id number] ####[facility] LABCLIA [id number] [address] [place] Goosefoot IgE RAST class (S) Normal [facility] Comment on above: Order Comment: Speci men Type: BLOOD SPECIMENOrdering Facility: [facility] Address: [address] [place] [address] Result Comment: Robbie rgen class is no longer reported Performed By: #### L [id number] ####[facility] LABCLIA [id number] [place] [address] [place] Tristan grass smut IgE Qn (S) <0.35 Normal <0.35 [facility] Comment on above: Order Comment: Speci men Type: BLOOD SPECIMENOrdering Facility: [facility] Address: [address] [place] [address] Performed By: #### L [id number] ####[facility] LABCLIA [id number] [address], [place] [address] [place] Tristan grass smut IgE RAST class (S) Normal [facility] Comment on above: Order Comment: Speci men Type: BLOOD SPECIMENOrdering Facility: [facility] Address: [address] [place] [address] Result Comment: Robbie rgen class is no longer reported Performed By: #### L [id number] ####[facility] LABCLIA [id number] [place] [address] [place] Plane IgE Qn (S) <0.35 Normal <0.35 [facility] Comment on above: Order Comment: Speci men Type: BLOOD SPECIMENOrdering Facility: [facility] Address: [address] [place] [address] Performed By: #### L [id number] ####[facility] LABCLIA [id number] [address] [place] IgE RAST class (S) Normal [facility] Comment on above: Order Comment: Speci men Type: BLOOD SPECIMENOrdering Facility: [facility] Address: [address] [place] [address] Result Comment: Robbie rgen class is no longer reported Performed By: #### L [id number] ####[facility] LABCLIA [id number] [place] [id number] [place] Meyer Elder IgE Qn (S) <0.35 Normal <0.35 [facility] Comment on above: Order Comment: Speci men Type: BLOOD SPECIMENOrdering Facility: [facility] Address: [address] [place] [address] Performed By: #### L [id number] ####[facility] LABCLIA [id number] [place] [address] [place] Meyer Elder IgE RAST class (S) Normal [facility] Comment on above: Order Comment: Speci men Type: BLOOD SPECIMENOrdering Facility: [facility] Address: [address] [place] [address] Result Comment: Robbie rgen class is no longer reported Performed By: #### L [id number] ####[facility] LABCLIA [id number] [place] [address] [place] Mouse urine proteins IgE Qn (S) <0.35 Normal <0.35 [facility] Comment on above: Order Comment: Speci men Type: BLOOD SPECIMENOrdering Facility: [facility] Address: [address] [place] [address] Performed By: #### L [id number] ####[facility] LABCLIA [id number] [place] [address] [place] Mouse urine proteins IgE RAST class (S) Normal [facility] Comment on above: Order Comment: Speci men Type: BLOOD SPECIMENOrdering Facility: [facility] Address: [address] [place] [address] Result Comment: Robbie rgen class is no longer reported Performed By: #### L [id number] ####[facility] LABCLIA [id number] [place] [id number] [place] Pecan or [place] Tree IgE Qn (S) <0.35 Normal <0.35 [facility] Comment on above: Order Comment: Speci men Type: BLOOD SPECIMENOrdering Facility: [facility] Address: [address] [place] [address] Performed By: #### L [id number] ####[facility] LABCLIA [id number] [place] [address] [place] Pecan or [place] Tree IgE RAST class (S) Normal [facility] Comment on above: Order Comment: Speci men Type: BLOOD SPECIMENOrdering Facility: [facility] Address: [address] [place] [address] Result Comment: Robbie rgen class is no longer reported Performed By: #### L [id number] ####[facility] LABCLIA [id number] [place] [address] [place] Sheep [place] IgE Qn (S) <0.35 Normal <0.35 [facility] Comment on above: Order Comment: Speci men Type: BLOOD SPECIMENOrdering Facility: [facility] Address: [address] [place] [address] Performed By: #### L [id number] ####[facility] LABCLIA [id number] [place] [address] [place] Sheep [place] IgE RAST class (S) Normal [facility] Comment on above: Order Comment: Speci men Type: BLOOD SPECIMENOrdering Facility: [facility] Address: [address] [place] [address] Result Comment: Robbie rgen class is no longer reported Performed By: #### L [id number] ####[facility] LABCLIA [id number] [place] [address] [place] Silver Birch IgE Qn (S) <0.35 Normal <0.35 [facility] Comment on above: Order Comment: Speci men Type: BLOOD SPECIMENOrdering Facility: [facility] Address: [address] [place] [address] Performed By: #### L [id number] ####[facility] LABCLIA [id number] [place] [address] [place] Silver Birch IgE RAST class (S) Normal [facility] Comment on above: Order Comment: Speci men Type: BLOOD SPECIMENOrdering Facility: [facility] Address: [address] [place], [place] [address] Result Comment: Robbie rgen class is no longer reported Performed By: #### L [id number] ####[facility] LABCLIA [id number] [address] [address] [facility] [place] Dani IgE Qn (S) <0.35 Normal <0.35 [facility] Comment on above: Order Comment: Speci men Type: BLOOD SPECIMENOrdering Facility: [facility] Address: [address] [place] [address] Performed By: #### L [id number] ####[facility] LABCLIA [id number] [address] [place] Dani IgE RAST class (S) Normal [facility] Comment on above: Order Comment: Speci men Type: BLOOD SPECIMENOrdering Facility: [facility] Address: [address] [place] [address] Result Comment: Robbie rgen class is no longer reported Performed By: #### L [id number] ####[facility] LABCLIA [id number] [address] [place] White Fidel IgE Qn (S) <0.35 Normal <0.35 [facility] Comment on above: Order Comment: Speci men Type: BLOOD SPECIMENOrdering Facility: [facility] Address: [address] [place] [address] Performed By: #### L [id number] ####[facility] LABCLIA [id number] [place] [id number] [place] White Fidel IgE RAST class (S) Normal [facility] Comment on above: Order Comment: Speci men Type: BLOOD SPECIMENOrdering Facility: [facility] Address: [address] [place] [address] Result Comment: Robbie rgen class is no longer reported Performed By: #### L [id number] ####[facility] LABCLIA [id number] [address] [place] White Elm IgE Qn (S) <0.35 Normal <0.35 [facility] Comment on above: Order Comment: Speci men Type: BLOOD SPECIMENOrdering Facility: [facility] Address: [address] [place] [address] Performed By: #### L [id number] ####[facility] LABCLIA [id number] [address] [place] White Elm IgE RAST class (S) Normal [facility] Comment on above: Order Comment: Speci men Type: BLOOD SPECIMENOrdering Facility: [facility] Address: [address] [place] [address] Result Comment: Robbie rgen class is no longer reported Performed By: #### L [id number] ####[facility] LABCLIA [id number] [address] White mulberry IgE Qn (S) <0.35 Normal <0.35 [facility] Comment on above: Order Comment: Speci men Type: BLOOD SPECIMENOrdering Facility: [facility] Address: [address] [place] [address] Performed By: #### L [id number] ####[facility] LABCLIA [id number] [address] [place] White mulberry IgE RAST class (S) Normal [facility] Comment on above: Order Comment: Speci men Type: BLOOD SPECIMENOrdering Facility: [facility] Address: [address] [place] [address] Result Comment: Robbie rgen class is no longer reported Performed By: #### L [id number] ####[facility] LABCLIA [id number] [address] [place]ohocken IgE Qn (S) <0.35 Normal <0.35 [facility] Comment on above: Order Comment: Speci men Type: BLOOD SPECIMENOrdering Facility: [facility] Address: [address] [place] [address] Performed By: #### L [id number] ####[facility] LABIA [id number] [place] [address] [place] Conshohocken IgE RAST class (S) Normal [facility] Comment on above: Order Comment: Speci men Type: BLOOD SPECIMENOrdering Facility: [facility] Address: [address] [place] [address] Result Comment: Robbie rgen class is no longer reported Performed By: #### L [id number] ####[facility] LABIA [id number] [place] [address] [place] ALGN SHELLFISH PANEL IGEon 0 02-21-2025 Blue mussel IgE Qn (S) <0.35 Normal <0.35 [facility] Comment on above: Order Comment: Speci men Type: BLOOD SPECIMENOrdering Facility: [facility] Address: [address] [place] [address] Performed By: #### S HLFSH ####[facility] LABIA [id number] [address] [place] Blue mussel IgE RAST class (S) Normal [facility] Comment on above: Order Comment: Speci men Type: BLOOD SPECIMENOrdering Facility: [facility] Address: [address] [place] [address] Result Comment: Robbie rgen class is no longer reported Performed By: #### S HLFSH ####[facility] LABIA [id number] [place] [address] [place] Clam IgE Qn (S) <0.35 Normal <0.35 [facility] Comment on above: Order Comment: Speci men Type: BLOOD SPECIMENOrdering Facility: [facility] Address: [address] [place] [address] Performed By: #### S HLFSH ####[facility] LABCLIA [id number] [facility] [id number] [address] [place] Clam IgE RAST class (S) Normal [facility] Comment on above: Order Comment: Speci men Type: BLOOD SPECIMENOrdering Facility: [facility] Address: [address] [place] [address] Result Comment: Robbie rgen class is no longer reported Performed By: #### S HLFS ####[facility] LABCLIA [id number] [facility] [id number] [address] [place] Crab IgE Qn (S) <0.35 Normal <0.35 [facility] Comment on above: Order Comment: Speci men Type: BLOOD SPECIMENOrdering Facility: [facility] Address: [address] [place] [address] Performed By: #### S HLFS ####[facility] LABCLIA [id number] [address], [facility] [place] Crab IgE RAST class (S) Normal [facility] Comment on above: Order Comment: Speci men Type: BLOOD SPECIMENOrdering Facility: [facility] Address: [address] [place] [address] Result Comment: Robbie rgen class is no longer reported Performed By: #### S HLFS ####[facility] LABCLIA [id number] [address] [place] [address] [place] Lobster IgE Qn (S) <0.35 Normal <0.35 [facility] Comment on above: Order Comment: Speci men Type: BLOOD SPECIMENOrdering Facility: [facility] Address: [address] [place] [address] Performed By: #### S HLFS ####[facility] LABCLIA [id number] [address] [place] [address] [place] Lobster IgE RAST class (S) Normal [facility] Comment on above: Order Comment: Speci men Type: BLOOD SPECIMENOrdering Facility: [facility] Address: [address] [place] [address] Result Comment: Robbie rgen class is no longer reported Performed By: #### S HLFSH ####[facility] LABCLIA [id number] [address] [place] Oyster IgE Qn (S) <0.35 Normal <0.35 [facility] Comment on above: Order Comment: Speci men Type: BLOOD SPECIMENOrdering Facility: [facility] Address: [address] [place] [address] Performed By: #### S HLFSH ####[facility] LABCLIA [id number] [address] Oyster IgE RAST class (S) Normal [facility] Comment on above: Order Comment: Speci men Type: BLOOD SPECIMENOrdering Facility: [facility] Address: [address] [place] [address] Result Comment: Robbie rgen class is no longer reported Performed By: #### S HLFSH ####[facility] LABCLIA [id number] [address] OF [facility] Scallop IgE Qn (S) <0.35 Normal <0.35 [facility] Comment on above: Order Comment: Speci men Type: BLOOD SPECIMENOrdering Facility: [facility] Address: [address] [place] [address] Performed By: #### S HLFS ####[facility] LABCLIA [id number] [address] OF [facility] Scallop IgE RAST class (S) Normal [facility] Comment on above: Order Comment: Speci men Type: BLOOD SPECIMENOrdering Facility: [facility] Address: [address] [place] [address] Result Comment: Robbie rgen class is no longer reported Performed By: #### S HLFSH ####[facility] LABCLIA [id number] [place] [address] [place] Shrimp IgE Qn (S) <0.35 Normal <0.35 [facility] Comment on above: Order Comment: Speci men Type: BLOOD SPECIMENOrdering Facility: [facility] Address: [address] [place] [address] Performed By: #### S [facility] ####[facility] LABCLIA [id number] [place] [address] [place] Shrimp IgE RAST class (S) Normal [facility] Comment on above: Order Comment: Speci men Type: BLOOD SPECIMENOrdering Facility: [facility] Address: [address] [place] [address] Result Comment: Robbie rgen class is no longer reported Performed By: #### S [facility] ####[facility] LABIA [id number] [address] [place] ALLERGEN, DUST MITE COMPONEN TS IGEon 02-21-2025 house dust mite recombinant (rDer p) 10 IgE Qn (S) <0.10 Normal <0.10 [facility] Comment on above: Order Comment: Speci men Type: BLOOD SPECIMENOrdering Facility: [facility] Address: [address] [place] [address] Performed By: #### D USTCP ####[facility] LABCLIA [id number] [place] [address] [place] house dust mite recombinant (rDer p) 2 IgE Qn (S) <0.10 Normal <0.10 [facility] Comment on above: Order Comment: Speci men Type: BLOOD SPECIMENOrdering Facility: [facility] Address: [address] [place] [address] Performed By: #### D USTCP ####[facility] LABCLIA [id number] [address] [place] RDER P1 <0.10 Normal <0.10 [facility] Comment on above: Order Comment: Speci men Type: BLOOD SPECIMENOrdering Facility: [facility] Address: [address] [place] [address] Performed By: #### D USTCP ####[facility] LABCLIA [id number] [place] [id number] CNOVon 02-21-2025 CNOV Office Visit (ALAPW) FERNANDA HERNANDEZ ([id number]) 1980 F Date Time Provider Department 02/21/25 9:00 AM RUPESH POOLE ALAMelizaW During your visit today, we recorded the following information about you: Pulse Respiration Blood pressure Weight 78/minute 16/minute 123/87 106.1 kg Lizeth Castillo LPN 02/21/2025 11:02 AM Signed Patient reports that about a month ago she developed a rash around her ears and on her cheeks after eating a very small amount of lobster. Patient also has concerns with dairy products, states that she does not feel well after eating dairy. Patient also reports that she possibly has some environmental allergies but nothing specific that she can think of at this time. Patient does not take antihistamines. Rupesh Poole DO 02/21/2025 11:02 AM Signed Allergy and Immunology 02/21/2025 PRIMARY CARE PHYSICIAN: Bettina Fuentes APRN.SCIENCE PROFESSOR REFERRING PROVIDER: OG Cervantes Consultation requested for an allergy/immunology evaluation. My final impression and recommendations will be communicated back to the requesting physician by way of shared medical record, fax, or US mail. CHIEF COMPLAINT: The patient is a 44-year-old female presenting for evaluation of possible shellfish allergy and environmental allergy testing. HISTORY OF PRESENT ILLNESS: Rash: - Rash onset approximately 1-1.5 months ago after consuming a small amount of lobster and using a new hair mousse on the same day. - Rash began on cheeks, described as really red and a little bit bumpy, followed by involvement of one ear, and the other ear a day or two later. The rash began in the evening. A teaspoon of lobster eaten for lunch several hours prior without immediate symptoms - Rash lasted 3-4 days; treated with an oral steroid prescribed by a clinician. - Denies pruritus; rash was warm, red, and bumpy. - No photos of the rash available. - Previous reaction to lobster 15 years ago, described as facial warmth. - Tolerates shrimp - Denies any issues with shrimp; has not consumed these since the incident. - Consumes fish without issues. Has only eaten immitation crab. Tolerates scallops but does not regularly eat mollusks. Has not had oysters or clams Facial Flushing: - Reports episodes of facial flushing over the last few months, occurring almost daily for a week and a half to two weeks, primarily around midday. - Flushing described as feeling really warm and like my face is on fire. - Denies pruritus or hives during these episodes. - Flushing not associated with any specific food trigger. Sinus Issues: - Reports frequent sinus issues, including drainage and pressure around the eyes and cheeks - Experiences minor sore throats occasionally, sometimes upon waking. - History of snoring; previously used CPAP but discontinued after gastric bypass and weight loss. - Uncertain if still snores Environmental Allergies: - Suspects environmental allergies due to frequent headaches at certain times of the year. - Has a dog but denies noticing symptoms around the dog. - Denies issues with mice, cockroaches, or mildew in the home. - Uses air conditioning in the summer; does not use dust mite covers on pillows. - Denies exposure to cigar, cigarette smoke, or vaping. Lactose Intolerance: - Reports GI discomfort after consuming milk, described as feeling kind of nauseous. - Uncertain if this is followed by diarrhea, as she experiences diarrhea frequently from food. MYC COLLATERAL ALLERGY HISTORY Question 02/16/2025 8:49 PM EDT - Filed by Patient Do you have or have you ever been diagnosed with allergic rhinitis? No Have you ever been skin tested for allergies? No Do you have asthma? No Do you have or have you ever been diagnosed with eczema or atopic dermatitis? No Do you get frequent sinus infections? Yes Do you have nasal polyps? Not Sure Do you have or have you ever been diagnosed with urticaria / hives? No Do you have or have you ever been diagnosed with angioedema? No Do you have or have you ever been diagnosed with food allergy? No Do you have or have you ever been diagnosed with stinging insect allergy (bee, wasp, yellow jacket, hornet)? No Are you allergic to Penicillin antibiotics? No MYC ALLERGY ENVIROMENTAL EXPOSURES Question 02/21/2025 9:23 AM EDT - Filed by Rupesh Poole, DO Aeroallergens Exposure What pet(s) you have at home? Dog Is there evidence of a mouse infestation in your home? No Is there evidence of a cockroach infestation in your home? No Is there evidence of mold or mildew in your home? No Is your home air conditioned during the summer? Yes Do you use zip around dust mite covers on all mattresses and pillows? No Is there exposure in the home to cigarette or cigar smoke? No Is there any exposure to vaping? No Social Hx: SOCIAL HISTORY[1] E (more content not included)... Normal [facility] CNOVon 02-08-2025 CNOV Office Visit (WOUCA) FERNANDA HERNANDEZ ([id number]) 1980 F Date Time Provider Department 02/08/25 8:15 AM LAUREN MEDELLIN During your visit today, we recorded the following information about you: Temperature Pulse Respiration Blood pressure 97.8 degrees 78/minute 16/minute 124/80 Weight 108.9 kg Lauren Medellin APRN.SCIENCE PROFESSOR 02/08/2025 8:32 AM Signed - No antibiotic is prescribed at this time since your strep test was negative and your symptoms are likely viral A safety net ATB has been sent over that can be filled on day 7 Medrol Dose Pack - Continue with supportive measures as discussed - Follow up with your primary care provider if your symptoms persist Lauren Medellin APRN.CNP 02/08/2025 9:30 AM Signed [facility] Subjective Fernanda Hernandez is a 44 year old female. Patient presents with: Sinus Problem: sinus pressure, headache, nasal drainage x 3 days Sinus Problem The patient is a 44-year-old female with a history of sleep apnea, GERD, and fibromyalgia, presenting with symptoms of a suspected sinus infection. Sinus Infection: - Onset of symptoms began on Thursday. - Reports sore throat, drainage, and pressure, with associated aches and pains - Experiences nausea, believed to be from drainage. - Denies fever or chills. - Daughter, age 17, is also currently ill. - Taking Tylenol, elderberry, Airborne, and Tylenol Cold and Flu with minimal relief. - Most bothersome symptoms are sinus pressure and sore throat. Sleep Apnea: - History of sleep apnea. GERD: - History of GERD. Fibromyalgia: - History of fibromyalgia. PAST MEDICAL HISTORY Diagnosis Date Delayed emergence [...] Antibiotics), and Wellbutrin [Bupropion Hcl] MEDICATIONS DULoxetine DR (CYMBALTA) 30 mg capsule Take 1 capsule by mouth once daily. gabapentin (NEURONTIN) 300 mg capsule Take 1 capsule by mouth three times a day for 90 days. sucralfate (CARAFATE) 1 gram tablet Take 1 tablet by mouth before meals and at bedtime. famotidine (PEPCID) 20 mg tablet Take 1 tablet by mouth daily at bedtime. meclizine (ANTIVERT) 25 mg tab Take 1 tablet by mouth every 6 hours as needed (for dizziness). Not to exceed 4 tablets in 24 hours scopolamine (TRANSDERM-SCOP) patch 1.5 mg/72 hr (delivers 1 mg over 3 days) Apply 1 patch as directed every 72 hours. lamoTRIgine (LAMICTAL) 150 mg tablet Take 1 tablet by mouth daily at bedtime. take with 100 mg tablet for total daily dose 250 mg lamoTRIgine (LAMICTAL) 100 mg tablet Take 1 tablet by mouth daily at bedtime. take with 150 mg tablet for total daily dose 250 mg clonazePAM (KLONOPIN) 0.5 mg tablet can take Klonopin 0.5mg 1/2 tablet daily for anxiety attacks as needed, use very sparingly, do not mix with alcohol and do not drive after taking Max order is 5 pills or 10 doses per month norgestimate 0.25 mg-ethinyl estradiol 35 mcg (TAMARA) [...] C ORAL) Take by mouth once daily. methylPREDNISolone (MEDROL, JAVAN,) 4 mg Dose-Pack Take as instructed per package. [START ON 02/11/2025] amoxicillin-clavulanate potassium (AUGMENTIN) 875-125 mg per tablet Take 1 tablet by mouth every 12 hours for 7 days. Patient should start on February 11, 2025. FAMILY HISTORY Problem Relation Age of Onset Arthritis Mother Diabetes Mother Headache Father Lipids Father Headache Sister Diabetes Maternal Grandfather Stroke Maternal Grandfather Alcohol/Drug Paternal Grandmother ET (more content not included)... Normal [facility] STREP A MOLECULAR (POC)on Procedural Control Valid [facility] Strep A (POCT) Negative Negative [facility] CNOVon 02-01-2025 CNOV Office Visit (WOUCA) FERNANDA HERNANDEZ ([id number]) 1980 F Date Time Provider Department 02/01/25 8:15 AM MARITA ALICEA During your visit today, we recorded the following information about you: Temperature Pulse Respiration Blood pressure 98 degrees 75/minute 19/minute 122/90 Weight 109.3 kg Marita Alicea, PETR.SCIENCE PROFESSOR 02/01/2025 8:44 AM Signed [facility] Subjective Fernanda Rosales David is a 44 year old female. Patient presents with: Sinus Problem: Sinus pressure in head and neck, nausea x 2 days Sinus Problem The patient is a 44-year-old female presenting with sinus pressure, facial pain, and diarrhea. Sinus Pressure and Facial Pain: - Onset a few days ago. - Describes facial pain radiating down the neck. - Associated with nasal drainage and hot flashes. - Denies chest pain, chest congestion, or productive cough today; was coughing yesterday. - Has Flonase at home; denies use of Zyrtec. Diarrhea: - Onset two weeks ago, with sudden onset and intermittent episodes. - Denies history of IBS. - Currently undergoing a colon cleanse as per edgerman's recommendation. Medication Use: - Taking Tylenol with no relief; unable to take NSAIDs. - Recent use of prednisone in December for an unspecified condition. Review of Systems Constitutional: (+) body aches, (+) hot flashes, (-) fever Head: (+) facial pain Ears/Nose/Mouth/Throat: (+) nasal drainage Neck: (+) neck pain Cardiovascular: (-) chest pain Respiratory: (-) chest congestion, (-) cough Gastrointestinal: (+) abdominal pain, (+) diarrhea Objective BP 122/90 Pulse 75 Temp 36.7 ?C (98 ?F) Resp 19 Wt 109.3 kg (240 lb 15.4 oz) LMP 08/28/2020 (Approximate) SpO2 95% BMI 44.07 kg/m? PAST MEDICAL HISTORY Diagnosis Date Delayed emergence [...] Take 1 capsule by mouth once daily. gabapentin (NEURONTIN) 300 mg capsule Take 1 capsule by mouth three times a day for 90 days. sucralfate (CARAFATE) 1 gram tablet Take 1 tablet by mouth before meals and at bedtime. famotidine (PEPCID) 20 mg tablet Take 1 tablet by mouth daily at bedtime. meclizine (ANTIVERT) 25 mg tab Take 1 tablet by mouth every 6 hours as needed (for dizziness). Not to exceed 4 tablets in 24 hours scopolamine (TRANSDERM-SCOP) patch 1.5 mg/72 hr (delivers 1 mg over 3 days) Apply 1 patch as directed every 72 hours. lamoTRIgine (LAMICTAL) 150 mg tablet Take 1 tablet by mouth daily at bedtime. take with 100 mg tablet for total daily dose 250 mg lamoTRIgine (LAMICTAL) 100 mg tablet Take 1 tablet by mouth daily at bedtime. take with 150 mg tablet for total daily dose 250 mg clonazePAM (KLONOPIN) 0.5 mg tablet can take Klonopin 0.5mg 1/2 tablet daily for anxiety attacks as needed, use very sparingly, do not mix with alcohol and do not drive after taking Max order is 5 pills or 10 doses per month norgestimate 0.25 mg-ethinyl estradiol 35 mcg (TAMARA) [...] C ORAL) Take by mouth once daily. predniSONE (DELTASONE) 20 mg tablet Take 1 tablet by mouth once daily for 3 days. FAMILY HISTORY Problem Relation Age of Onset Arthritis Mother Diabetes Mother Headache Father Lipids Father Headache Sister Diabetes Maternal Grandfather Stroke Maternal Grandfather Alcohol/Drug Paternal Grandmother ETOH Alcohol/Drug Paternal Grandfather ETOH Can (more content not included)... Normal [facility] ANES POSTPROC EVALon 025 ANES POSTPROC EVAL HNO ID: [id number] Author: LUNA PAT MD Service: Anesthesiology Author Type: Physician Type: Anesthesia Postprocedure Evaluation Filed: 01/25/2025 12:03 Note Text: POST ANESTHESIA EVALUATION NOTE : 1980 Procedure Summary Date: 01/25/25 Room / Location: [facility] Endoscopy Anesthesia Start: 1040 Anesthesia Stop: 1054 Procedure: EGD DIAGNOSTIC Diagnosis: Abdominal bloating Early satiety History of gastric bypass (Heartburn) Scheduled Providers: Antonietta Gonzalez MD; Natasha Jefferson APRN.RN CARDIOVASCULAR ICU; Luna Pat MD Responsible Provider: Luna Pat MD Anesthesia Type: MAC ASA Status: 3 Anesthesia Type: MAC Last Vitals Vitals Value Taken Time BP 115/80 01/25/25 11:20 Temp 01/25/25 12:03 Pulse 78 01/25/25 11:20 Resp 01/25/25 12:03 SpO2 99 % 01/25/25 11:20 Post Anesthesia Patient Status Patient Evaluation: PACU. PACU/ICU Patient Condition: stable. Anticipated Disposition: phase 2 then home. Neurological Status: aware and responsive. Pulmonary Status: breathing comfortably on room air Airway Control: returned to baseline unsupported. Cardiovascular Status: stable. Pain Management: clinically adequate - multimodal analgesia pain management approach Postoperative Hydration: acceptable. Intraoperative Events: no significant anesthesia events Recommendation: continue current plan of care. Anesthesia Observations No Documentation SIGNATURE: Luna Pat MD PATIENT NAME: Fernanda Hernandez DATE: January 25, 2025 TIME: 12:03 PM CSN: [id number] Normal [facility] ANES PRE-OPon 01-25-2025 ANES PRE-OP HNO ID: [id number] Author: LUNA PAT MD Service: Anesthesiology Author Type: Physician Type: Anesthesia Preprocedure Evaluation Filed: 01/25/2025 10:19 Note Text: ANESTHESIOLOGY DAY OF SURGERY NOTE : 1980 Procedure Information Date/Time: 01/25/25 1130 Scheduled providers: Antonietta Gonzalez MD; Natasha Jefferson APRN.RN CARDIOVASCULAR ICU; Luna Pat MD Procedure: EGD DIAGNOSTIC Location: [facility] Endoscopy Estimated body mass index is 44.63 kg/m? as calculated from the following: Height as of 08/02/24: 157.5 cm (5' 2). Weight as of 01/17/25: 110.7 kg (244 lb). Most recent hematocrit and potassium results: Hematocrit 40.9 11/13/2023 Potassium 4.0 11/13/2023 Relevant Problems ANESTHESIA (+) CLIFTON (obstructive sleep apnea) GI (+) GERD (gastroesophageal reflux disease) NEURO-PSYCH (+) Paroxysmal hemicrania, chronic PULMONARY (+) CLIFTON (obstructive sleep apnea) I - PHYSICAL EVALUATION AIRWAY Patient intubated: No. Tracheostomy tube not present Mallampati: II. TM distance: >3 FB. Neck ROM: full ROM without neurological symptoms. Mouth opening: >3 FB. Short neck: no. Thick neck: no DENTAL Normal dental observations. Dental findings: teeth intact. Additional exam findings: yes. CARDIOVASCULAR Rhythm: regular Rate: normal PULMONARY Breath sounds clear to auscultation. II - ANESTHESIA PLAN ASA Score: 3 Anesthetic Plan: MAC NPO Status: adequate Monitoring Plan Monitoring plan: Standard ASA. Post Procedure Analgesic Plan Postoperative analgesic plan: parenteral or oral opioids and multimodal analgesia. Informed Consent Anesthetic risks, benefits, alternatives, personnel and consent discussed: yes. Patient / Responsible Green Party agrees to proceed: yes Patient / Surrogate agrees to blood products: blood products not planned DNR status not reviewed with patient and/or family prior to surgery. Significant changes in the patient condition since the History and Physical, not otherwise documented in primary service progress note: no. Potential Anesthesia issues that may suggest increased risk of complications or contraindication to planned procedure: none. No vitals data found for the desired time range. Outpatient Medications as of 01/25/2025 Medication Sig nortriptyline (PAMELOR) 10 mg capsule Take 2 capsules by mouth daily at bedtime. famotidine (PEPCID) 20 mg tablet Take 1 tablet by mouth daily at bedtime. meclizine (ANTIVERT) 25 mg tab Take 1 tablet by mouth every 6 hours as needed (for dizziness). Not to exceed 4 tablets in 24 hours gabapentin (NEURONTIN) 300 mg capsule Take 1 capsule by mouth once daily for 30 days. lamoTRIgine (LAMICTAL) 150 mg tablet Take 1 tablet by mouth daily at bedtime. take with 100 mg tablet for total daily dose 250 mg lamoTRIgine (LAMICTAL) 100 mg tablet Take 1 tablet by mouth daily at bedtime. take with 150 mg tablet for total daily dose 250 mg MAGNESIUM GLYCINATE ORAL Take 200 mg by mouth once daily. Multivitamin capsule Take 1 capsule by mouth once daily. BIOTIN, BULK, MISC cholecalciferol, vitamin D3, (VITAMIN D3 ORAL) Take by mouth. ascorbic acid (VITAMIN C ORAL) Take by mouth once daily. sucralfate (CARAFATE) 1 gram tablet Take 1 tablet by mouth before meals and at bedtime. scopolamine (TRANSDERM-SCOP) patch 1.5 mg/72 hr (delivers 1 mg over 3 days) Apply 1 patch as directed every 72 hours. clonazePAM (KLONOPIN) 0.5 mg tablet can take Klonopin 0.5mg 1/2 tablet daily for anxiety attacks as needed, use very sparingly, do not mix with alcohol and do not drive after taking Max order is 5 pills or 10 doses per month norgestimate 0.25 mg-ethinyl estradiol 35 mcg (TAMARA) 0.25-35 mg-mcg per tablet Take 1 tablet by mouth once daily. Take active pills only. No inactive week. No current facility-administered medications on file as of 01/25/2025. I have interviewed and examined the patient. I have reviewed the medical record and/or the pre-anesthesia evaluation, pertinent labs, and test results. This contains updated information obtained within 48 hours of Surgery/Procedure. SIGNATURE: Luna Pat MD PATIENT NAME: Fernanda Hernandez DATE: January 25, 2025 TIME: 10:18 AM CSN: [id number] Normal [facility] EGD Study observation Matt castillo 01-25-2025 [facility] Gastrointestinal Endoscopy Patient Name: Fernanda Hernandez Procedure Date: 01/25/2025 10:20 AM Date of : 1980 Admit Type: Outpatient Age: 44 Room: [facility] Gender: Female Note Status: Finalized Attending MD: Antonietta Gonzalez MD, [id number] Procedure: Upper GI endoscopy Indications: Heartburn Providers: Antonietta Gonzalez MD Patient Profile: Refer to note in patient chart for documentation of history and physical. Referring Physician: Jennifer Rodriguez CNP (Referring MD) Medicines: See the Anesthesia note for documentation of the administered medications Complications: No immediate complications. Requesting Provider: Procedure: Pre-Anesthesia Assessment: - Monitored anesthesia care under the supervision of a RN CARDIOVASCULAR ICU was determined to be medically necessary for this procedure based on review of the patient's medical history, medications, and prior anesthesia history. After obtaining informed consent, the endoscope was passed under direct vision. Throughout the procedure, the patient's blood pressure, pulse, and oxygen saturations were monitored continuously. The Endoscope was introduced through the mouth, and advanced to the second part of duodenum. The upper GI endoscopy was accomplished without difficulty. The patient tolerated the procedure well. Moderate Sedation: MAC anesthesia was administered by the anesthesia team. Total Procedure Duration: 0 hours 4 minutes 50 seconds Findings: Patient is s/p gastric bypass with Tati en Y. Endoscope was advanced to jejunal anastomosis. This appears to be a small gastric pouch - anastomosis noted at 41 cm and GE junction noted at 39 cm. GE junction was irregular - biopsies taken with cold grasper forceps. Small gastric pouch - . Biopsies were taken with a cold forceps for histology. Verification of patient identification for the specimen was done by the nurse. Estimated blood loss was minimal. The Z-line was irregular and was found 39 cm from the incisors. Biopsies were taken with a cold forceps for histology. Biopsies were taken with a cold forceps for histology. Impression: - Z-line irregular, 39 cm from the incisors. Biopsied. Recommendation: - Discharge patient to home (ambulatory). - Resume previous diet. - Continue present medications. - Await pathology results. - Return to referring provider at the next available appointment. Procedure Code(s): --- Professional --- 47096, Esophagogastroduodenoscopy, flexible, transoral; with biopsy, single or multiple Diagnosis Code(s): --- Professional --- R12, Heartburn K22.89, Other specified disease of esophagus CPT copyright 2020 [employer]. All rights reserved. The codes documented in this report are preliminary and upon inpatient coder review may be revised to meet current compliance requirements. Attending Participation: I personally performed the entire procedure. Scope In: 10:46:51 AM Scope Out: 10:51:41 AM MD Antonietta Cuevas MD 01/25/2025 10:57:54 AM This report has been signed electronically by Antonietta Gonzalez MD Number of Addenda: 0 Note Initiated On: 01/25/2025 10:20 AM Estimated Blood Loss: Estimated blood loss was minimal. PROVATION [facility] Radiology Study observation (narrative) [facility] Pathology biopsy report Car (Tiss)on 01-25-2025 AP DISCLAIMER Normal [facility] Comment on above: Order Comment: Speci men Type: TISSUE SPECIMEN [facility] Address: [address] [place] [address] Result Comment: Chuck yo Developed Test (LDT) Disclaimer: Performance characteristics of immunohistochemical, immunofluorescent, and chromogenic in-situ hybridization tests have been determined by the performing laboratory within the [facility] Department of Pathology and Laboratory Medicine ([facility], [facility], [facility], [facility], [facility], [facility], or [facility]) in a manner consistent with CLIA requirements. One or more of these tests may not have been cleared or approved by the FDA. The [facility] Department of Pathology and Laboratory Medicine is regulated under CLIA as qualified to perform high-complexity testing. These tests are used for clinical purposes. These should not be regarded as investigational or for research. Positive and negative controls stain appropriately. Performed By: #### 6 6121-5 #### [facility] CLIA [id number] [address] [place] [address] [place] CASE REPORT Normal [facility] Comment on above: Order Comment: Speci men Type: TISSUE SPECIMEN Ordering Facility: [facility] Address: [address] [place] [address] Result Comment: Surg [facility] Pathology Report Case: [id number] Authorizing Provider: Antonietta Gonzalez MD Collected: 01/25/2025 10:50 AM Ordering Location: [facility] Endoscopy Received: 01/25/2025 01:30 PM Pathologist: Pavel Crystal MD Specimens: A) - Stomach, Biopsy, gastric pouch biopsy B) - Esophagogastric Junction, Biopsy, irregular ge junction Performed By: #### 6 6121-5 #### [facility] CLIA [id number] [address] [place] [address] OF [place] FINAL DIAGNOSIS Normal [facility] Comment on above: Order Comment: Speci men Type: TISSUE SPECIMEN Ordering Facility: [facility] Address: [address] [place] [address] Result Comment: A. S tomach, pouch, biopsy: - Gastric oxyntic mucosa with no diagnostic abnormality. B. Esophagogastric junction, biopsy: - Squamous and gastric-type mucosa with no diagnostic abnormality. - Negative for intestinal metaplasia and dysplasia. at 1546 EDT Performed By: #### 6 6121-5 #### [facility] CLIA [id number] [address] [place] [address] [place] FINAL PERFORMING LAB Normal [facility] Comment on above: Order Comment: Speci men Type: TISSUE SPECIMEN Ordering Facility: [facility] Address: [address] [place] [address] Result Comment: Diag nostic interpretation performed at: [facility], [address] [place] [address] CLIA# [id number] Ink Printer: Alex Bass MD Performed By: #### 6 6121-5 #### [facility] CLIA [id number] [address] [place] [address] [place] GROSS DESCRIPTION [facility] Comment on above: Order Comment: Speci men Type: TISSUE SPECIMEN Ordering Facility: [facility] Address: [address] [place] [address] Result Comment: A. S tomach, Biopsy Received in formalin is one piece of abebe, soft tissue measuring 0.3 x 0.2 x 0.2 cm. Totally submitted in one cassette. B. Esophagogastric Junction, Biopsy Received in formalin are two pieces of abebe, soft tissue aggregating to 1.0 x 0.2 x 0.1 cm. Totally submitted in one cassette. CL January 25, 2025 5:02 PM Gross examination performed at [facility], [address] [place] [address] Performed By: #### 6 6121-5 #### [facility] CLIA [id number] [address] [place] [address] [place] Upper GI endoscopyon [facility] Upper GI endoscopy [facility] Gastrointestinal Endoscopy Patient Name: Fernanda Hernandez Procedure Date: 01/25/2025 10:20 AM Date of : 1980 Admit Type: Outpatient Age: 44 Room: [facility] Gender: Female Note Status: Finalized Attending MD: Antonietta Gonzalez MD, [id number] Procedure: Upper GI endoscopy Indications: Heartburn Providers: Antonietta Gonzalez MD Patient Profile: Refer to note in patient chart for documentation of history and physical. Referring Physician: Jennifer Rodriguez CNP (Referring MD) Medicines: See the Anesthesia note for documentation of the administered medications Complications: No immediate complications. Requesting Provider: Procedure: Pre-Anesthesia Assessment: - Monitored anesthesia care under the supervision of a RN CARDIOVASCULAR ICU was determined to be medically necessary for this procedure based on review of the patient's medical history, medications, and prior anesthesia history. After obtaining informed consent, the endoscope was passed under direct vision. Throughout the procedure, the patient's blood pressure, pulse, and oxygen saturations were monitored continuously. The Endoscope was introduced through the mouth, and advanced to the second part of duodenum. The upper GI endoscopy was accomplished without difficulty. The patient tolerated the procedure well. Moderate Sedation: MAC anesthesia was administered by the anesthesia team. Total Procedure Duration: 0 hours 4 minutes 50 seconds Findings: Patient is s/p gastric bypass with Tati en Y. Endoscope was advanced to jejunal anastomosis. This appears to be a small gastric pouch - anastomosis noted at 41 cm and GE junction noted at 39 cm. GE junction was irregular - biopsies taken with cold grasper forceps. Small gastric pouch - . Biopsies were taken with a cold forceps for histology. Verification of patient identification for the specimen was done by the nurse. Estimated blood loss was minimal. The Z-line was irregular and was found 39 cm from the incisors. Biopsies were taken with a cold forceps for histology. Biopsies were taken with a cold forceps for histology. Impression: - Z-line irregular, 39 cm from the incisors. Biopsied. Recommendation: - Discharge patient to home (ambulatory). - Resume previous diet. - Continue present medications. - Await pathology results. - Return to referring provider at the next available appointment. Procedure Code(s): --- Professional --- 85196, Esophagogastroduodenoscopy, flexible, transoral; with biopsy, single or multiple Diagnosis Code(s): --- Professional --- R12, Heartburn K22.89, Other specified disease of esophagus CPT copyright 2020 [employer]. All rights reserved. The codes documented in this report are preliminary and upon inpatient coder review may be revised to meet current compliance requirements. Attending Participation: I personally performed the entire procedure. Scope In: 10:46:51 AM Scope Out: 10:51:41 AM MD Antonietta Cuevas MD 01/25/2025 10:57:54 AM This report has been signed electronically by Antonietta Gonzalez MD Number of Addenda: 0 Note Initiated On: 01/25/2025 10:20 AM Estimated Blood Loss: Estimated blood loss was minimal. Normal [facility] CBC, Employeeon 01-17-2025 Absolute Lymph 1.98 X10 3/uL Normal 0.83-4.51 [facility] Comment on above: Performed By: #### L 500.2900, L100.0200, L400.0100 ####[facility] [address] [place], [address] Absolute Neut 7.0 X10 3/uL Normal 2.0-7.7 [facility] Comment on above: Performed By: #### L 500.2900, L100.0200, L400.0100 ####[facility] [address] [place], [address] Basophils/100 WBC (Bld) 0.3 % Normal 0-1 [facility] Comment on above: Performed By: #### L 500.2900, L100.0200, L400.0100 ####[facility] [address] [place], [address] Eosinophils/100 WBC (Bld) 0.1 % Normal 0-5 [facility] Comment on above: Performed By: #### L 500.2900, L100.0200, L400.0100 ####[facility] [address] [place], [address] Erythrocyte distribution width (RBC) [Ratio] 12.9 % Normal 11.6-14.6 [facility] Comment on above: Performed By: #### L 500.2900, L100.0200, L400.0100 ####[facility] [address] [place], [address] Hematocrit (Bld) [Volume fraction] 40.9 % Normal 37-47 [facility] Comment on above: Performed By: #### L 500.2900, L100.0200, L400.0100 ####[facility] [address] [place], [address] Hemoglobin (Bld) [Mass/Vol] 13.6 g/dL Normal 12.0-15.0 [facility] Comment on above: Performed By: #### L 500.2900, L100.0200, L400.0100 ####[facility] [address] [place], [address] Lymphocytes/100 WBC (Bld) 21.1 % Normal 19-41 [facility] Comment on above: Performed By: #### L 500.2900, L100.0200, L400.0100 ####[facility] [address] [place], [address] MCH (RBC) [Entitic mass] 31.0 pg Normal 27.0-32.0 [facility] Comment on above: Performed By: #### L 500.2900, L100.0200, L400.0100 ####[facility] [address] [place], [address] MCHC (RBC) [Mass/Vol] 33.3 g/dL Normal 32-36 [facility] Comment on above: Performed By: #### L 500.2900, L100.0200, L400.0100 ####[facility] [address] [place], [address] MCV (RBC) [Entitic vol] 93.2 fL Normal 81-99 [facility] Comment on above: Performed By: #### L 500.2900, L100.0200, L400.0100 ####[facility] [address] [place], [address] Monocytes/100 WBC (Bld) 3.9 % Normal 0-10 [facility] Comment on above: Performed By: #### L 500.2900, L100.0200, L400.0100 ####[facility] [address] [place], [address] Neutrophils/100 WBC (Bld) 74.4 % High 47-70 [facility] Comment on above: Performed By: #### L 500.2900, L100.0200, L400.0100 ####[facility] [address] [place], [address] NRBC # 0.00 10 3/uL Normal 0-5 [facility] Comment on above: Performed By: #### L 500.2900, L100.0200, L400.0100 ####[facility] [address] [place], [address] Nucleated RBC (Bld) [#/Vol] 0 10*3/uL Normal 0-5 [facility] Comment on above: Performed By: #### L 500.2900, L100.0200, L400.0100 ####[facility] [address] [place], [address] Platelet mean volume (Bld) [Entitic vol] 10.9 fL Normal 6.2-12.0 [facility] Comment on above: Performed By: #### L 500.2900, L100.0200, L400.0100 ####[facility] [address] [place], [address] Platelets (Bld) [#/Vol] 333 10*3/uL Normal 150-450 [facility] Comment on above: Performed By: #### L 500.2900, L100.0200, L400.0100 ####[facility] [address] [place], [address] RBC (Bld) [#/Vol] 4.39 10*6/uL Normal 4.2-5.4 [facility] Comment on above: Performed By: #### L 500.2900, L100.0200, L400.0100 ####[facility] [address] [place], [address] RDW SD 44.5 fl High 35.1-43.9 [facility] Comment on above: Performed By: #### L 500.2900, L100.0200, L400.0100 ####[facility] [address] [place], [address] WBC (Bld) [#/Vol] 9.4 10*3/uL Normal 4.4-11.0 [facility] Comment on above: Performed By: #### L 500.2900, L100.0200, L400.0100 ####[facility] [address] [place], [address] CNOVon 01-17-2025 CNOV Office Visit (FAMPWS ) DAVIDFERNANDA Bobby ([id number]) 1980 F Date Time Provider Department 01/17/25 9:40 AM [facility] During your visit today, we recorded the following information about you: Temperature Pulse Blood pressure Weight 97.6 degrees 70/minute 140/86 110.7 kg Bettina Fuentes APRN.SCIENCE PROFESSOR 01/17/2025 10:25 AM Addendum This is a 44 year old female who presents today with: Patient presents with: Abdominal Pain: Right flank pain, lower left back pain. Gas, bloating, frequent loose bowel movements, sometimes diarrhea. Balance: Feeling off balance HISTORY OF PRESENT ILLNESS: Fernanda Hernandez is a 44 year old female. Patient presents with: Abdominal Pain: Right flank pain, lower left back pain. Gas, bloating, frequent loose bowel movements, sometimes diarrhea. Balance: Feeling off balance The patient is a 44-year-old female with depression and chronic low back pain, presenting for evaluation of persistent dizziness and acute onset abdominal pain with bloating and diarrhea. Abdominal Pain and Diarrhea: - Acute onset of abdominal pain, diarrhea, and bloating began on Thursday after Fernanda Hernandez ate a Caesar salad, raspberry oat bar, and strawberry banana smoothie at a cafe in [place]. - Severe abdominal cramping and gas followed shortly after eating, with multiple bowel movements and significant fatigue. - Pain localized to Fernanda's right flank and left lower back, described as sharp and constant. - Denies radiation of pain to the legs. - Associated symptoms include nausea, heartburn, and facial flushing. - Denies fever, emesis, or hematuria. - Recent increase in frequency and severity of diarrhea over the past couple of months. - History of gastric bypass surgery 5 years ago. - Last colonoscopy was performed last year. Dizziness: - Persistent dizziness, possibly related to current medication duloxetine. - Denies syncope or vertigo. Depression and Anxiety: - Currently taking duloxetine for depression and anxiety, as well as chronic back pain management. - Fernanda reports irritability and depression, with minimal anxiety. - Denies suicidal ideation. - Concerns about potential serotonin syndrome with medication changes. - Taking Lamictal and gabapentin. Chronic Back Pain: - Chronic back pain managed with duloxetine. - Recent onset of sharp, constant pain in Daisys right flank and left lower back. - Denies radiation of pain to the legs. PAST MEDICAL HISTORY: PAST MEDICAL HISTORY Diagnosis [...] MEDICATIONS Current Outpatient Medications Medication Sig DULoxetine DR (CYMBALTA) 30 mg capsule Take 30 mg by mouth once daily. cetirizine (ZYRTEC) 10 mg tablet Take 1 tablet by mouth two times a day for 5 days. predniSONE (DELTASONE) 20 mg tablet Take 2 tablets by mouth once daily for 5 days. meclizine (ANTIVERT) 25 mg tab Take 1 tablet by mouth every 6 hours as needed (for dizziness). Not to exceed 4 tablets in 24 hours scopolamine (TRANSDERM-SCOP) patch 1.5 mg/72 hr (delivers 1 mg over 3 days) Apply 1 patch as directed every 72 hours. gabapentin (NEURONTIN) 300 mg capsule Take 1 capsule by mouth once daily for 30 days. lamoTRIgine (LAMICTAL) 150 mg tablet Take 1 tablet by mouth daily at bedtime. take with 100 mg tablet for total daily dose 250 mg lamoTRIgine (LAMICTAL) 100 mg tablet Take 1 tablet by mouth daily at bedtime. take with 150 mg tablet for total daily dose 250 mg clonazePAM (KLONOPIN) 0.5 mg tablet can take Klonopin 0.5mg 1/2 tablet daily for anxiety attacks as needed, use very sparingly, do not mix with alcohol and do not drive after taking Max order is 5 pills or 10 doses pe (more content not included)... Normal [facility] Employee Profileon 5 CHOL:HDL 1.90 Normal [facility] Comment on above: Performed By: #### L 500.2900, L100.0200, L400.0100 ####[facility] [address] [place], [address] Cholesterol [Mass/Vol] 154 mg/dL Normal <=200 [facility] Comment on above: Result Comment: Chol esterol level, Desirable <200 mg/dL Borderline high cholesterol 200-239 mg/dL High cholesterol >=240 mg/dL Recommendations of the NCEP Adult Treatment Panel for the following risk-cutoff thresholds for the [place] population. Performed By: #### L 500.2900, L100.0200, L400.0100 ####[facility] [address] [place], [address] Cholesterol in HDL [Mass/Vol] 81 mg/dL Normal [facility] Comment on above: Result Comment: [place] onal Cholesterol Education Program (NCEP) guidelines: <40 mg/dL: Low HDL-cholesterol (major risk factor for CHD) >= 60 mg/dL: High HDL-cholesterol (negative risk factor for CHD) HDL-cholesterol is affected by a number of factors, e.g. smoking, exercise, hormones, sex and age. Performed By: #### L 500.2900, L100.0200, L400.0100 ####[facility] [address] [place], [address] Cholesterol in LDL [Mass/Vol] 58 mg/dL Normal [facility] Comment on above: Result Comment: Bord vrnwyy=450-155 mg/dL Higher Ezhy=178 mg/dL or greater Friedwald Equation for LDL-C Performed By: #### L 500.2900, L100.0200, L400.0100 ####[facility] [address] [place], [address] Cholesterol in VLDL [Mass/Vol] 15 mg/dL Normal 5-40 [facility] Comment on above: Performed By: #### L 500.2900, L100.0200, L400.0100 ####[facility] [address] [place], [address] Triglyceride [Mass/Vol] 77 mg/dL Normal [facility] Comment on above: Result Comment: The drugs N-Acetylcysteine and Metamizole may falsely depress this assay. Normal range: <150 mg/dL Borderline High: 150-199 mg/dL High: 200-499 mg/dL Very High: >500 mg/dL Performed By: #### L 500.2900, L100.0200, L400.0100 ####[facility] [address] [place], [address] URIC 3.7 mg/dL Normal 2.6-6.0 [facility] Comment on above: Result Comment: The drugs N-Acetylcysteine and Metamizole may falsely depress this assay. Performed By: #### L 500.2900, L100.0200, L400.0100 ####[facility] [address] [place], [address] HISTORY PHYSICALon HISTORY PHYSICAL HNO ID: [id number] Author: JENNIFER RODRIGUEZ APRN.SCIENCE PROFESSOR Service: ? Author Type: Nurse Practitioner Type: H&P Filed: 01/17/2025 14:08 Note Text: DISTANCE HEALTH VISIT This Team Access Model visit is a virtual encounter. It required patient-provider interaction for the medical decision making as documented below. REASON FOR VISIT: GERD and flatulence HPI: Fernanda Hernandez is a 44 year old female history of gastric bypass surgery 5 years ago and cholecystectomy, presenting with increased gas, bloating, and loose stools. For the past 4 months, she has experienced excessive gas and bloating. On Thursday, she developed sudden, severe abdominal pain, described as sharp and located in the right anterior abdomen, with additional left flank pain. Since then, she has had persistent nausea and a sensation of abdominal fullness that limits her oral intake. She reports feeling so distended that she is walking like I'm . She reports 4-6 loose bowel movements per day, with an episode of diarrhea on Thursday when her symptoms began. She denies melena and unintentional weight loss. She has also experienced recurrent heartburn over the past few weeks, which had been absent since her gastric bypass surgery. The heartburn is severe enough to wake her from sleep. She has multiple allergies to acid-reducing medications, including Protonix and omeprazole, but is unsure of the specific agents. She is not currently taking any injectable medications such as Ozempic. She underwent a colonoscopy last year and has not had any recent stool testing. She denies any family history of GI disorders. Past Clinical Work-Up: Colon 02/04/24: A. Colon, random biopsies: - Benign colonic mucosa with focal features suggesting mild melanosis coli. ALLERGIES Allergen Reactions Aciphex [Rabeprazol* Rash Entex Pse [Pseudoep* INSOMNIA Nexium [Esomeprazol* Other: See Comments Made acid reflux worse Prevacid [Lansopraz* HEADACHE Prilosec [Omeprazol* HEADACHE Sulfa (Sulfonamide * Rash Wellbutrin [Bupropi* GI Upset PAST MEDICAL HISTORY Diagnosis Date Delayed emergence [...] Uncle ETOH Cancer Paternal Uncle LUNG SOCIAL HISTORY[1] Current Outpatient Medications Medication Sig sucralfate (CARAFATE) 1 gram tablet Take 1 tablet by mouth before meals and at bedtime. nortriptyline (PAMELOR) 10 mg capsule Take 2 capsules by mouth daily at bedtime. cetirizine (ZYRTEC) 10 mg tablet Take 1 tablet by mouth two times a day for 5 days. predniSONE (DELTASONE) 20 mg tablet Take 2 tablets by mouth once daily for 5 days. meclizine (ANTIVERT) 25 mg tab Take 1 tablet by mouth every 6 hours as needed (for dizziness). Not to exceed 4 tablets in 24 hours scopolamine (TRANSDERM-SCOP) patch 1.5 mg/72 hr (delivers 1 mg over 3 days) Apply 1 patch as directed every 72 hours. gabapentin (NEURONTIN) 300 mg capsule Take 1 capsule by mouth once daily for 30 days. lamoTRIgine (LAMICTAL) 150 mg tablet Take 1 tablet by mouth daily at bedtime. take with 100 mg tablet for total daily dose 250 mg lamoTRIgine (LAMICTAL) 100 mg tablet Take 1 tablet by mouth daily at bedtime. take with 150 mg tablet for total daily dose 250 mg clonazePAM (KLONOPIN) 0.5 mg tablet can take Klonopin 0.5mg 1/2 tablet daily for anxiety attacks as needed, use very sparingly, do not mix with alcohol and do not drive after taking Max order is 5 pills or 10 doses per month norgestimate 0.25 mg-ethinyl estradiol 35 mcg (TAMARA) 0.25-35 mg-mcg per tablet Take 1 tablet by mouth once daily. Take active pills only. No inactive week. MAGNESIUM GLYCINATE ORAL Take 200 mg by (more content not included)... Normal [facility] Urinalysis, Employeeon 01-17 BILIRUBIN URINE Negative Normal Negative [facility] Comment on above: Order Comment: Urine , Random Performed By: #### L 500.2900, L100.0200, L400.0100 ####[facility] [address] [place], [place], [id number] Clarity (U) Cloudy Normal Clear [facility] Comment on above: Order Comment: Urine , Random Performed By: #### L 500.2900, L100.0200, L400.0100 ####[facility] [address] [place], [place], [address] Color (U) Yellow Normal Yellow [facility] Comment on above: Order Comment: Urine , Random Performed By: #### L 500.2900, L100.0200, L400.0100 ####[facility] [address] [place], [address] GLUCOSE, UR Normal Normal Normal [facility] Comment on above: Order Comment: Urine , Random Performed By: #### L 500.2900, L100.0200, L400.0100 ####[facility] [address] [place], [address] KETONE UR Negative Normal Negative [facility] Comment on above: Order Comment: Urine , Random Performed By: #### L 500.2900, L100.0200, L400.0100 ####[facility] [address] [place], [address] LEUK ESTERASE 25 /ul Abnormal Negative [facility] Comment on above: Order Comment: Urine , Random Performed By: #### L 500.2900, L100.0200, L400.0100 ####[facility] [address] [place], [address] Nitrite Ql (U) Negative Normal Negative [facility] Comment on above: Order Comment: Urine , Random Performed By: #### L 500.2900, L100.0200, L400.0100 ####[facility] [address] [place], [address] OCCULT BLOOD-UR Negative Normal Negative [facility] Comment on above: Order Comment: Urine , Random Performed By: #### L 500.2900, L100.0200, L400.0100 ####[facility] [address] [place], [address] pH UR 6.0 Normal 5.0 - 8.0 [facility] Comment on above: Order Comment: Urine , Random Performed By: #### L 500.2900, L100.0200, L400.0100 ####[facility] [address] [place], [address] PROT DIPSTX 15 mg/dl Abnormal Negative [facility] Comment on above: Order Comment: Urine , Random Performed By: #### L 500.2900, L100.0200, L400.0100 ####[facility] [address] [place], [address] SP.GR. DIPSTX 1.020 Normal 1.002-1.03 0 [facility] Comment on above: Order Comment: Urine , Random Performed By: #### L 500.2900, L100.0200, L400.0100 ####[facility] [address] [place], [address] UROBILI Normal Normal Normal [facility] Comment on above: Order Comment: Urine , Random Performed By: #### L 500.2900, L100.0200, L400.0100 ####[facility] [address] [place], [address] XR ABD 2V SUPINE W UPR/DECUB /CTLon 01-17-2025 XR ABD 2V SUPINE W UPR/DECUB/CTL * * *Final Report* * * DATE OF EXAM: Jan 17 2025 6:28PM WOX [id number] - XR ABD 2V SUPINE W UPR/DECUB/CTL / PROCEDURE REASON: Flatus * * * * Physician Interpretation * * * * EXAMINATION: ABDOMINAL RADIOGRAPH Clinical History: Flatus M: XC1_4 Comparison: 12/16/2023 TECHNIQUE: Supine and upright view(s) of the abdomen RESULT: Lines, tubes, and devices: None are seen. Bowel Gas Pattern: Moderate to large amount of air in the small and large intestine as well as a large amount of stool. No definite signs of bowel obstruction and no free air seen Calcifications: No definite renal stones. Other: No additional findings IMPRESSION: Gaseous distention of intestinal loops as well as large stool burden. Safety Lamp Keeper: JOHNATHAN Transcribe Date/Time: Jan 19 2025 11:00P Dictated by : CHI CROOKS MD This examination was interpreted and the report reviewed and electronically signed by: CHI CROOKS MD on Jan 19 2025 11:01PM EST [id number] Normal [facility] CNOVon 01-12-2025 CNOV Office Visit (WOUCA) FERNANDA HERNANDEZ ([id number]) 1980 F Date Time Provider Department 01/12/25 8:30 AM BERNADETTE WINTERS WOJOSELIN During your visit today, we recorded the following information about you: Temperature Pulse Respiration Blood pressure 98.3 degrees 70/minute 18/minute 137/82 Weight 110.6 kg Bernadette Winters PA 01/12/2025 8:43 AM Signed [facility] Subjective Fernanda Hernandez is a 44 year old female. Patient presents with: Rash: On face x1 day, itching whole body, nausea, feeling off balance HPI Rash: - Rash on cheeks and ears began on Thursday. - Noted tingling and pruritus in the ears, with the left ear being more affected. - Consumed a small amount of lobster and used a new hair product on Thursday. - Pruritus on legs and lower back, but no visible rash. - No dyspnea or dysphagia. - No current use of allergy medications. Vestibular Symptoms: - Intermittent imbalance began last . - History of vertigo; recently evaluated by a vestibular specialist who diagnosed a vestibular disorder. - Denies constant imbalance. - Balance issues unchanged. - Denies feeling off balance currently. No headache, dizziness, lightheadedness, vision changes. Review of Systems Head: (+) headache Ears/Nose/Mouth/Throat: (+) ear pruritus, (+) ear paresthesia, (-) dysphagia Neck: (+) neck pain Respiratory: (-) dyspnea Gastrointestinal: (-) vomiting Skin: (+) facial rash, (+) auricular rash, (+) leg pruritus Neurological: (+) imbalance Objective BP 137/82 Pulse 70 Temp 36.8 ?C (98.3 ?F) Resp 18 Wt 110.6 kg (243 lb 13.3 oz) LMP 08/28/2020 (Approximate) SpO2 98% BMI 44.60 kg/m? Physical Exam Vitals and nursing note reviewed. Constitutional: General: She is not in acute distress. Appearance: Normal appearance. She is not toxic-appearing. HENT: Right Ear: Tympanic membrane and ear canal normal. Left Ear: Tympanic membrane and ear canal normal. Nose: Nose normal. Mouth/Throat: Mouth: Mucous membranes are moist. Cardiovascular: Rate and Rhythm: Normal rate and regular rhythm. Pulmonary: Effort: Pulmonary effort is normal. Breath sounds: Normal breath sounds. Skin: General: Skin is warm and dry. Findings: Rash present. Comments: Erythematous rash on right cheek and bilateral ears. Left ear slightly swollen due to rash and inflammation. No rash anywhere else. No oral involvement. No tongue or floor of mouth swelling. Throat clear. Neurological: Mental Status: She is alert. { 1. Allergic reaction, initial encounter (T78.40XA) - Acute allergic reaction likely triggered by lobster ingestion or new hair product use on Thursday. - No signs of anaphylaxis. - Start Zyrtec 10 mg PO BID. - Start prednisone to reduce inflammation. - Advised avoidance of shellfish and new hair product until further evaluation. - Refer to home care manager for further testing to determine specific allergen. Recording using Dynadmic software for draft documentation of the visit was discussed with the patient/authorized patient care representative; all questions welcomed and answered. Patient/authorized patient care representative agreed to proceed History and Record Review External record(s) reviewed: prior outpatient record. Differential Diagnoses - Allergic reaction is more likely for the following reason(s): suggested by HANDP Disposition The patient was discharged. Procedures Allergies As of Date: 01/12/2025 Noted Allergy Reaction ACIPHEX (RABEPRAZOLE SODIUM) 07/09/2016 2 - Rash ENTEX PSE (PSEUDOEPHEDRINE-GUAIFE* Comments: INSOMNIA NEXIUM (ESOMEPRAZOLE MAGNESIUM) 07/11/2016 14 - Other: See Comments Comments: Made acid reflux worse PREVACID (LANSOPRAZOLE) 03/06/2005 Comments: HEADACHE PRILOSEC (OMEPRAZOLE) 03/06/2005 Comments: HEADACHE SULFA (SULFONAMIDE ANTIBIOTICS) 03/06/2005 2 - Rash WELLBUTRIN (BUPROPION HCL) 05/08/2014 8 - GI Upset Date Reviewed: 01/12/2025 Reviewed by: Tracy Silva MA - Fully Assessed Reason for Visit: Rash [1087] Cmt: On face x1 day, itching whole body, nausea, feeling off balance Primary Visit Diagnosis:Allergic reaction, initial encounter [T78.40XA] Order(s):CONSULT TO ALLERGY/IMMUNOLOGY [9001] Order #: [id number]: 1 FUTURE cetirizine (ZYRTEC) 10 mg tabletTake 1 tablet by mouth two times a day for 5 days.Disp: 10 tabletRfl: 0 predniSONE (DELTASONE) 20 mg tabletTake 2 tablets by mouth once daily for 5 days.Disp: 10 tabletRfl: 0 Prescriptions as of 01/12/2025 - DULoxetine DR (CYMBALTA) 30 mg capsule Take 30 mg by mouth once daily. - cetirizine (ZYRTEC) 10 mg tablet Take 1 tablet by mouth two times a day for 5 days. - predniSONE (DELTASONE) 20 mg tablet Take 2 tablets by mouth once daily for 5 days. - scopolamine (TRANSDERM-SCOP) patch 1.5 mg/72 hr (delivers 1 mg over 3 days) Apply 1 patch as directed every 72 (more content not included)... Normal [facility] FERNANDA HERNANDEZ ([id number]) 1980 F Date Time Provider Department [facility]/10[facility] During your visit today, we recorded the following information about you: Aida Bhagat RN 01/10/2025 8:58 AM Signed Patient calls and is upset that medication was not sent to pharmacy. Patient states that she had called [facility] and Physical therapy can get her in today if there is an order placed. Patient asking if order can be placed and faxed to [facility]? Please review and advise, FREDRICK Barclay Jacqueline A, APRN.RACHID 01/10/2025 9:40 AM Signed Consult physical therapy at [facility] Aida Bhagat RN 01/10/2025 10:36 AM Signed Physical Therapy Order faxed to [facility] as requested. Aida Bhagat RN Allergies As of Date: 01/10/2025 Noted Allergy Reaction ACIPHEX (RABEPRAZOLE SODIUM) 07/09/2016 [...] Assessed Reason for Visit: Patient Question [1477] Primary Visit Diagnosis:BPPV (benign paroxysmal positional vertigo), unspecified laterality [H81.10] Order(s):CONSULT TO PHYSICAL THERAPY [9032] Order #: [id number]: 1 FUTURE Prescriptions as of 01/10/2025 - scopolamine (TRANSDERM-SCOP) patch 1.5 mg/72 hr (delivers 1 mg over 3 days) Apply 1 patch as directed every 72 hours. - lamoTRIgine (LAMICTAL) 150 mg tablet Take 1 tablet by mouth daily at bedtime. take with 100 mg tablet for total daily dose 250 mg - lamoTRIgine (LAMICTAL) 100 mg tablet Take 1 tablet by mouth daily at bedtime. take with 150 mg tablet for total daily dose 250 mg - baclofen 10 mg tablet Take 10 mg by mouth three times a day as needed. - methylPREDNISolone (MEDROL DOSE-PACK) 4 mg Dose-Pack - gabapentin (NEURONTIN) 300 mg capsule Take 1 capsule by mouth four times daily for 90 days. 300 mg in AM, 300 mg mid day, 600 mg at bedtime - clonazePAM (KLONOPIN) 0.5 mg tablet can [...] Andre Rn Problem List As Of Date 01/10/2025 Noted Resolved Abdominal pain, epigastric [R10.13] 04/02/2005 [...] major depression resistant to treatme*06/09/2019 11/21/2021 Panic attack [F41.0] 06/09/2019 Anxiety disorder [F41.9] 09/15/2019 Encounter for long-term current use of medicati*09/23/2019 CLIFTON (obstructive sleep apnea) [G47.33] 12/28/2019 Acute pain of left shoulder [M25.512] 04/23/2020 Hiatal hernia [K44.9] 11/09/2020 11/09/2020 Major depressive disorder, recurrent, moderate *11/21/2021 Occult blood positive stool [R19.5] 02/04/2024 Inflamed sebaceous cyst [L72.3] 07/25/2024 Encounter Status:Closed by AIDA [facility]AGAT [facility] FER[facility] HER[facility]NDEZ ([id number]) 1980 F Date Time Provider Department 01/10/25 [facility] During your visit today, we recorded the following information about you: Sophia Greco RN 01/10/2025 12:02 PM Signed Pharmacist with [facility] calls to clarify prescription for gabapentin. Asking if the 300 mg dose is to be taken daily or twice daily as it has both sets of directions. Looks like it should be daily but verifying with PCP d/t so many recent encounters. Pharmacist requests call back at [phone]. FREDRICK Bird Jacqueline A, FACILITIES ADMINISTRATOR.[facility] 01/10/2025 12:15 PM Signed I sent a prescription to reflect what patient is doing. Clarified with pharmacy with a note to them. Allergies As of Date: 01/10/2025 Noted Allergy Reaction ACIPHEX (RABEPRAZOLE SODIUM) 07/09/2016 [...] MA - Fully Assessed Reason for Visit: Medication Problem [65] Primary Visit Diagnosis:Fibromyalgia [M79.7] Order(s):gabapentin (NEURONTIN) 300 mg capsuleTake 1 capsule by mouth once daily for 30 days.Disp: 30 capsuleRfl: 0 Prescriptions as of 01/10/2025 - scopolamine (TRANSDERM-SCOP) patch 1.5 mg/72 hr (delivers 1 mg over 3 days) Apply 1 patch as directed every 72 hours. - gabapentin (NEURONTIN) 300 mg capsule Take 1 capsule by mouth once daily for 30 days. - lamoTRIgine (LAMICTAL) 150 mg tablet Take 1 tablet by mouth daily at bedtime. take with 100 mg tablet for total daily dose 250 mg - lamoTRIgine (LAMICTAL) 100 mg tablet Take 1 tablet by mouth daily at bedtime. take with 150 mg tablet for total daily dose 250 mg - methylPREDNISolone (MEDROL DOSE-PACK) 4 mg Dose-Pack - clonazePAM (KLONOPIN) 0.5 mg tablet can [...] Andre Rn Problem List As Of Date 01/10/2025 Noted Resolved Abdominal pain, epigastric [R10.13] 04/02/2005 [...] major depression resistant to treatme*06/09/2019 11/21/2021 Panic attack [F41.0] 06/09/2019 Anxiety disorder [F41.9] 09/15/2019 Encounter for long-term current use of medicati*09/23/2019 CLIFTON (obstructive sleep apnea) [G47.33] 12/28/2019 Acute pain of left shoulder [M25.512] 04/23/2020 Hiatal hernia [K44.9] 11/09/2020 11/09/2020 Major depressive disorder, recurrent, moderate *11/21/2021 Occult blood positive stool [R19.5] 02/04/2024 Inflamed sebaceous cyst [L72.3] 07/25/2024 Prescriptions ordered this encounter Disp Refills Start End GABAPENTIN 300 MG CAPSULE 30 c* 0 01/10/2025 02/09/2025 Cmt: Patient already has this medication. She did not increase it as directed. Order changed to reflect what she is doing, once daily. Should have a multitude of pills. Route: PO Sig: Take 1 capsule by mouth once daily for 30 days. Medications Discontinued During This Encounter Prescriptions - (more content not included)... Normal [facility] Inital Evaluation (1) - PTon 01-10-2025 Inital Evaluation (1) - PT [facility] Physical Therapy [facility] [address] [place] [address] [address] [place] [address] / REHABILITATION SERVICES INITIAL EVALUATION MR#: [id number] Acct: [id number] Name: FERNANDA HERNANDEZ Rep #: [id number] : 1980 44 From: Roc Grover DPT, CHRISTIANO, CSCS Referring Dr.: FLORES Tee Status: R EG RCR Insurance: [facility] SELF PAY INSURANCE Patient's Visit Information Visit Information Visit Information: FERNANDA HERNANDEZ is a 44 year old F referred to Physical Therapy by FLORES Tee with a diagnosis of BPPV. Date of Evaluation: 01/10/25 Physical Therapist: Roc Grover DPT, OCS, CSCS Visit Plan Frequency: 1x/Week Duration: 4-6 Weeks Plan: weekly x 4-6 as needed for Progression of VOR ex adaptation and monitor for positional which is not present today. May need some neck stretchees/strength Subjective Subjective: Vertigo started 6 days ago and started mid day at store. Noticed off balance feeling to the left. No falls. It sudden goes away but off balance rest of day. bending is a problem as her balance goes away. Neck gets tighter and she already gets that treated. Lying down in bed feels drunk for 5 minutes. Moving head can happen again. Feels pretty good much of the rest of the day but maybe off a little at times. Had this in the spring also and it went away on its own. 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 Treating neck dry needling which helps the neck. Tries stretching now and then. for neck, posture changes and sees chiropractor and gets massage, sees pain management for neck, needs MRI of neck. No injections yet. Has back pain also. Sleep is OK except for last night. It did keep her up last night. Objective Objective: Walks into PT slowly but I with good balance, FGA goes well. Transfers chair and bed I. cervical aROM WFL albeit hesitant adn slow. UE AROM WFL and strength 4-/5 without myotomal problems. - B hallpike nataliia - roll test. Oculomotor: No nystagmus with gaze or head shake. - ocular tilt - skew eye deviation slight + L head thrust Normal pursuit and saccades without symptoms. VOR H symptomatic within 10 sec and 6/10 after 30 seconds for about 30 seconds. 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 Rehabilitation Potential: Fair Anticipated Interventions Patient/Client Instruction: Educate patient on: Condition and Risk Factors For the Purpose of:: To increase tolerance to activity/condition/position Comment: adaptation/vestibular ex For the Purpose of:: To increase tolerance to activity/condition/position Text: Thank you for the opportunity to evaluate your patient. For Medicare and Medicare HMO plans, please review the plan of care and approve it. It will need to be FAXED BACK to us at [phone] for Medicare purposes. For Medicare only, by signing this I certify the plan of care. Please let me know if there are questions or concerns regarding this plan of care. Physician Signature: Date: 01/10/25 1549 CC: FLORES Fuentes EBG Signed Normal [facility] Absolute lymphocyte countOrd ered By: Deangelogalina Thao on 01-07-2025 Lymphocytes Auto (Unsp spec) [#/Vol] 3.55 10*3/uL 0.83-4.51 [facility] Absolute neutrophil countOrd ered By: Deangelo Thao on 01-07-2025 Neutrophils (Bld) [#/Vol] 6.5 10*3/uL 2.0-7.7 [facility] Anion gap in Serum or Plasma Ordered By: Deangelo Thao on 01-07-2025 Anion gap [Moles/Vol] 12 mmol/L 10-06 [facility] Automated lymphocyte count a s percentage of total leukocytesOrdered By: Deangelo Thao on 01-07-2025 Lymphocytes/100 WBC Auto (Unsp spec) 31.8 % [facility] BUN/creatinine ratioOrdered By: Deangelo Thao on 01-07-2025 Urea nitrogen/Creatinine [Mass ratio] 17.1 mg/mg 03-13 [facility] Basic Metabolic Profile (BMP )on 01-07-2025 BUN/CRE 17.1 RATIO Normal 03-13 [facility] Comment on above: Performed By: #### L 500.2500, L501.9520, L100.0100 ####[facility] [address] [place], [address] Calcium [Mass/Vol] 8.6 mg/dL Normal 7.6-11.0 [facility] Comment on above: Performed By: #### L 500.2500, L501.9520, L100.0100 ####[facility] [address] [place], [address] Chloride [Moles/Vol] 104 mmol/L Normal 98-108 [facility] Comment on above: Performed By: #### L 500.2500, L501.9520, L100.0100 ####[facility] [address] [place], [address] CO2 [Moles/Vol] 25.6 mmol/L Normal 21.0-32.0 [facility] Comment on above: Performed By: #### L 500.2500, L501.9520, L100.0100 ####[facility] [address] [place], [address] Creatinine [Mass/Vol] 0.72 mg/dL Normal 0.70-1.20 [facility] Comment on above: Performed By: #### L 500.2500, L501.9520, L100.0100 ####[facility] [address] [place], [address] ECRCL 117.82 ml/min Normal 50-250 [facility] Comment on above: Performed By: #### L 500.2500, L501.9520, L100.0100 ####[facility] [address] [place], [address] GAP 12 Normal 5-15 [facility] Comment on above: Performed By: #### L 500.2500, L501.9520, L100.0100 ####[facility] [address] [place], [address] GFR/1.73 sq M.predicted among non-blacks MDRD (S/P/Bld) [Vol rate/Area] 105 mL/min/{1.73_m2} Normal >60 [facility] Comment on above: Result Comment: mL/m in/1.73m2 CKD-EPI Creatinine Equation (2020) Performed By: #### L 500.2500, L501.9520, L100.0100 ####[facility] [address] [place], [address] Glucose [Mass/Vol] 80 mg/dL Normal 70-99 [facility] Comment on above: Performed By: #### L 500.2500, L501.9520, L100.0100 ####[facility] [address] [place], [address] Potassium [Moles/Vol] 3.2 mmol/L Low 3.3-5.1 [facility] Comment on above: Performed By: #### L 500.2500, L501.9520, L100.0100 ####[facility] [address] [place], [address] Sodium [Moles/Vol] 141 mmol/L Normal 133-145 [facility] Comment on above: Performed By: #### L 500.2500, L501.9520, L100.0100 ####[facility] [address] [place], [address] Urea nitrogen [Mass/Vol] 12 mg/dL Normal 4-19 [facility] Comment on above: Performed By: #### L 500.2500, L501.9520, L100.0100 ####[facility] [address] [place], [address] Basophil percentageOrdered B y: Deangelo Thao on 01-07-2025 Basophils/100 WBC (Bld) 0.5 % 0-1 [facility] Brain/Head without Contrasto n 01-07-2025 Brain/Head without Contrast [facility] Imaging Services [address] [place] [address] Brain/Head without Contrast MR#: [id number] Acct: [id number] Name: FERNANDA HERNANDEZ Rep #: [id number] : 1980 F 44 From: Dilia Palmer MD PCP: Bettina Fuentes, SMOG TECHNICIAN Status: REG ER Study: Brain/Head without Contrast Date of Exam: 12/23 11/16 Exam# [id number] Ordering Dr: Deangelo Thao DO PROCEDURE: BRAIN/HEAD WITHOUT CONTRAST N/A REASON FOR EXAM: DIZZY TECHNIQUE: BRAIN/HEAD WITHOUT CONTRAST Coronal and Sagittal reconstruction series were provided. One or more dose reduction techniques were used (e.g., Automated exposure control, adjustment of the mA and/or kV according to patient size, use of iterative reconstruction technique. RADIATION DOSE SUMMARY: CTDlvol: 47, 13, 26 mGy DLP: 1792 mGycm COMPARISON: 07/18/2024 FINDINGS: BRAIN: No acute intraparenchymal hemorrhage. No mass lesion. No CT evidence for acute territorial infarct. No midline shift or extra-axial collection. VENTRICLES: No hydrocephalus. ORBITS: The orbits are unremarkable. SINUSES AND MASTOIDS: The paranasal sinuses and mastoid air cells are clear. SOFT TISSUES: No acute abnormality seen. BONES: No acute osseous abnormality seen. OTHER: The sella has a partially empty appearance, which is unchanged. CT/Brain/Head without Contrast IMPRESSION: No acute intracranial abnormality. Reading Location: [facility] CC: SMOG TECHNICIAN Bettina Fuentes; Dr. Deangelo Thao DO Safety Lamp Keeper: Signed Normal [facility] CBC W/Diff, Automatedon 12-23 Absolute Lymph 3.55 X10 3/uL Normal 0.83-4.51 [facility] Comment on above: Performed By: #### L 500.2500, L501.9520, L100.0100 ####[facility] [address] [place], [address] Absolute Neut 6.5 X10 3/uL Normal 2.0-7.7 [facility] Comment on above: Performed By: #### L 500.2500, L501.9520, L100.0100 ####[facility] [address] [place], [address] Basophils/100 WBC (Bld) 0.5 % Normal 0-1 [facility] Comment on above: Performed By: #### L 500.2500, L501.9520, L100.0100 ####[facility] [address] [place], [address] Eosinophils/100 WBC (Bld) 1.7 % Normal 0-5 [facility] Comment on above: Performed By: #### L 500.2500, L501.9520, L100.0100 ####[facility] [address] [place], [address] Erythrocyte distribution width (RBC) [Ratio] 13.2 % Normal 11.6-14.6 [facility] Comment on above: Performed By: #### L 500.2500, L501.9520, L100.0100 ####[facility] [address] [place], [address] Hematocrit (Bld) [Volume fraction] 39.0 % Normal 37-47 [facility] Comment on above: Performed By: #### L 500.2500, L501.9520, L100.0100 ####[facility] [address] [place], [address] Hemoglobin (Bld) [Mass/Vol] 13.0 g/dL Normal 12.0-15.0 [facility] Comment on above: Performed By: #### L 500.2500, L501.9520, L100.0100 ####[facility] [address] [place], [address] IG% 0.500 Normal 0.0-0.9 [facility] Comment on above: Result Comment: IG% - Immature Granulocytes (promyelocytes, myelocytes and metamyelocytes) > 1% indicates that a LEFT SHIFT is Present. Performed By: #### L 500.2500, L501.9520, L100.0100 ####[facility] [address] [place], [address] Lymphocytes/100 WBC (Bld) 31.8 % Normal 19-41 [facility] Comment on above: Performed By: #### L 500.2500, L501.9520, L100.0100 ####[facility] [address] [place], [address] MCH (RBC) [Entitic mass] 30.8 pg Normal 27.0-32.0 [facility] Comment on above: Performed By: #### L 500.2500, L501.9520, L100.0100 ####[facility] [address] [place], [address] MCHC (RBC) [Mass/Vol] 33.3 g/dL Normal 32-36 [facility] Comment on above: Performed By: #### L 500.2500, L501.9520, L100.0100 ####[facility] [address] [place], [address] MCV (RBC) [Entitic vol] 92.4 fL Normal 81-99 [facility] Comment on above: Performed By: #### L 500.2500, L501.9520, L100.0100 ####[facility] [address] [place], [address] Monocytes/100 WBC (Bld) 7.3 % Normal 0-10 [facility] Comment on above: Performed By: #### L 500.2500, L501.9520, L100.0100 ####[facility] [address] [place], [address] Neutrophils/100 WBC (Bld) 58.2 % Normal 47-70 [facility] Comment on above: Performed By: #### L 500.2500, L501.9520, L100.0100 ####[facility] [address] [place], [address] Nucleated RBC (Bld) [#/Vol] 0 10*3/uL Normal 0-5 [facility] Comment on above: Performed By: #### L 500.2500, L501.9520, L100.0100 ####[facility] [address] [place], [address] Platelet mean volume (Bld) [Entitic vol] 10.6 fL Normal 6.2-12.0 [facility] Comment on above: Performed By: #### L 500.2500, L501.9520, L100.0100 ####[facility] [address] [place], [address] Platelets (Bld) [#/Vol] 318 10*3/uL Normal 150-450 [facility] Comment on above: Performed By: #### L 500.2500, L501.9520, L100.0100 ####[facility] [address] [place], [address] RBC (Bld) [#/Vol] 4.22 10*6/uL Normal 4.2-5.4 [facility] Comment on above: Performed By: #### L 500.2500, L501.9520, L100.0100 ####[facility] [address] [place], [address] RDW SD 44.8 fl High 35.1-43.9 [facility] Comment on above: Performed By: #### L 500.2500, L501.9520, L100.0100 ####[facility] [address] [place], [address] WBC (Bld) [#/Vol] 11.2 10*3/uL High 4.4-11.0 [facility] Comment on above: Performed By: #### L 500.2500, L501.9520, L100.0100 ####[facility] [address] [place], [address] Carbon dioxide, total [Moles /volume] in Central venous bloodOrdered By: Deangelo Thao on 01-07-2025 CO2 [Moles/Vol] 25.6 mmol/L 21.0-32.0 [facility] Chloride assayOrdered By: Carlos Thao on 01-07-2025 Chloride [Moles/Vol] 104 mmol/L 98-108 [facility] Emergency Department Summary on 01-07-2025 Emergency Department Summary [facility] Medical Records Department [address] [place] [address] Emergency Department Summary 01/07/25 MR#: [id number] Acct: [id number] Name: FERNANDA HERNANDEZ Rep #: [id number] : 1980 44 From: Deangelo Thao DO PCP: Bettina Fuentes, SMOG TECHNICIAN Status:REG ER Location: ED HPI History of Present Illness Chief Complaint: Dizziness Narrative Narrative: Patient is a 44-year-old female with past medical history of vertigo, migraines, gastric bypass, cholecystectomy, GERD who presented to the emergency department chief complaint of dizziness and not feeling well. Patient states that she has had symptoms for approximately 3 days now and states that she has been very fatigued with this. Patient notes that she has had this happen in the past before was diagnosed with vertigo and this does feel very similar. Patient states that she followed with physical therapy at a nearby clinic and she states that they did several test and notes that she was diagnosed with not normal vertigo she states that the meclizine was not helping her over the last few days therefore she came here to be further evaluated. Patient denies any blood thinning medications and denies any head trauma. Patient states that she is trying to get scheduled for MRI of neck however she is having some difficulties with insurance. States that she recently had dry needling of her neck to try to help with her symptoms as well. [facility] Medical History Osteoarthritis of left knee Back pain Difficulty balancing Knee pain Chest pain Migraines Fatigue Stomach ulcer Shoulder pain SOB (shortness of breath) Arthritis Home Medications ???Medication ???Instructions ???Recorded ???Last Taken ???Type norgestimate 0.25 mg-ethinyl 1 ea PO DAILY bcp 12/10/18 5 History estradiol 0.035 mg tablet ascorbic acid (vitamin C) 500 mg 500 mg PO DAILY 01/07/25 01/07/25 History tablet (C-500) biotin 2,500 mcg capsule 2,500 mcg PO DAILY 01/07/25 History calcium-magnesium 300 mg-300 mg 1 tab PO DAILY 01/07/25 01/06/25 H istory tablet cholecalciferol (vitamin D3) 50 50 mcg PO DAILY 01/07/25 01/06/25 History mcg (2,000 unit) tablet (D3 DOTS) duloxetine 30 mg capsule,delayed 30 mg PO DAILY 01/07/25 01/07/25 H istory release gabapentin 300 mg capsule 300 mg PO DAILY 01/07/25 01/07/25 History lamotrigine 150 mg tablet 150 mg PO DAILY 01/07/25 01/07/25 History meclizine 25 mg tablet 25 mg PO Q6H PRN dizziness 5 01/07/25 History multivitamin (Daily Multi-Vitamin 1 tab PO DAILY 01/07/25 01/07/25 History tablet) Allergy/AdvReac Type Severity Reaction Status Date / Time lansoprazole (From Prevacid) Allergy Unknown Verified 01/07/25 11:02 rabeprazole (From Aciphex) Allergy Hives Verified 01/07/25 11:02 Sulfa (Sulfonamide Allergy Unknown Verified 01/07/25 11:02 Antibiotics) omeprazole (From Prilosec) AdvReac Other Verified 01/07/25 11:02 omeprazole magnesium (From AdvReac Other Verified 01/07/25 11:02 Prilosec) Surgical History Gastric bypass status for obesity History of cholecystectomy History of tonsillectomy History of bilateral breast reduction surgery Social History Smoking Status: Former smoker ROS ROS ED ROS Narrative Constitutional: Complains of dizziness and generalized fatigue denies any headaches, lightness, fevers, chills Eyes: Denies change in vision double vision blurry vision Cardiovascular: Denies chest pain Respiratory: Denies coughing wheezing shortness of breath Abdomen: Denies abdominal pain nausea vomit diarrhea : Denies any urinary symptoms Neurological: Denies any numbness, weakness, tingling Musculoskeletal: Denies back pain Skin: Denies any rashes or lesions EXAM Physical Exam Narrative Exam Narrative: General: Patient was lying in bed rest comfortably did not appear to be in acute distress Head: Atraumatic, normocephalic Eyes: PERRL bilaterally, EOMI bilaterally, no conjunctival injection noted Neck: Soft, supple, trachea midline Cardiovascular: Regular rate and rhythm Respiratory: Clear to auscultation bilaterally Extremities: +5/5 strength noted in the bilateral upper and lower extremities, radial pulses +2/1 about extremities, no pedal edema exam Neurological: Patient following commands knew that she was at [facility] the year is 2024. Patient completed finger-nose testing bilaterally without difficulty. Sensation grossly intact. NIH of 0 GCS 15. Patient states that when she turns her head to the left her symptoms do worsen Skin: Warm, dry, intact no rashes lesions noted Const Vital Signs: 01/07/25 11: (more content not included)... Normal [facility] Eosinophil percentageOrdered By: Deangelo Thao on 01-07-2025 Eosinophils/100 WBC (Bld) 1.7 % 0-5 [facility] Erythrocyte distribution wid th ratioOrdered By: Deangelo Thao on 01-07-2025 Erythrocyte distribution width (RBC) [Ratio] 13.2 % 11.6-14.6 [facility] Erythrocyte distribution wid th standard deviationOrdered By: Deangelo Thao on 01-07-2025 Erythrocyte distribution width (RBC) [Ratio] 44.8 fl High 35.1-43.9 [facility] Glomerular filtration rate ( GFR) estimation/1.73 sq m using serum, plasma, or whole bOrdered By: Deangelo Thao on 01-07-2025 GFR/1.73 sq M.predicted among non-blacks MDRD (S/P/Bld) [Vol rate/Area] 105 mL/min/{1.73_m2} >60 [facility] Comment on above: mL/min/1.73m2 CKD-EP I Creatinine Equation (2020) Hematocrit Auto (Bld) [Volum e fraction]Ordered By: Deangelo Thao on 01-07-2025 Hematocrit (Bld) [Volume fraction] 39.0 % 37-47 [facility] Hemoglobin measurementOrdere d By: Deangelo Thao on 01-07-2025 Hemoglobin (Bld) [Mass/Vol] 13.0 g/dL 12.0-15.0 [facility] Immature granulocytes/100 WB C Auto (Bld)Ordered By: Deangelo Thao on 01-07-2025 Immature granulocytes/100 WBC (Bld) 0.500 % 0.0-0.9 [facility] Comment on above: IG% - Immature Granu locytes (promyelocytes, myelocytes and metamyelocytes) > 1% indicates that a LEFT SHIFT is Present. MCV (mean corpuscular volume ) determinationOrdered By: Deangelo Thao on 01-07-2025 MCV (RBC) [Entitic vol] 92.4 fL 81-99 [facility] Mean corpuscular hemoglobin (MCH) determinationOrdered By: Deangelo Thao on 01-07-2025 MCH (RBC) [Entitic mass] 30.8 pg 27.0-32.0 [facility] Mean corpuscular hemoglobin concentration (MCHC) determinationOrdered By: Deangelo Thao on 01-07-2025 MCHC (RBC) [Mass/Vol] 33.3 g/dL 32-36 [facility] Mean platelet volume determi nationOrdered By: Deangelo Thao on 01-07-2025 Platelet mean volume (Bld) [Entitic vol] 10.6 fL 6.2-12.0 [facility] Monocyte percentageOrdered B y: Deangelo Thao on 01-07-2025 Monocytes/100 WBC (Bld) 7.3 % 0-10 [facility] Neutrophil percentageOrdered By: Deangelo Thao on 01-07-2025 Neutrophils/100 WBC (Bld) 58.2 % 47-70 [facility] Nucleated red blood cell per centageOrdered By: Deangelo Thao on 01-07-2025 Nucleated RBC/100 WBC (Bld) [Ratio] 0 % 0-5 [facility] Platelet countOrdered By: Carlos Thao on 01-07-2025 Platelets (Bld) [#/Vol] 318 10*3/uL 150-450 [facility] Potassium measurement (mass/ volume)Ordered By: Deangelo Thao on 01-07-2025 Potassium (Unsp spec) [Mass/Vol] 3.2 mmol/L Low 3.3-5.1 [facility] RBC Auto (Bld) [#/Vol]Ordere d By: Deangelo Thao on 01-07-2025 RBC (Bld) [#/Vol] 4.22 10*6/uL 4.2-5.4 [facility] STROKE CTA Head AND Neck W/C onon 01-07-2025 STROKE CTA Head AND Neck W/Con [facility] Imaging Services [address] [place], [place] [address] STROKE CTA Head AND Neck W/Con MR#: [id number] Acct: [id number] Name: FERNANDA HERNANDEZ Rep #: [id number] : 1980 F 44 From: Paty Lawler MD PCP: Bettina Fuentes, SMOG TECHNICIAN Status: REG ER Study: STROKE CTA Head AND Neck W/Con Date of Exam: 0 01/07/25 Exam# [id number] Ordering Dr: Deangelo Thao DO PROCEDURE: STROKE CTA HEAD AND NECK W/CON N/A REASON FOR EXAM: DIZZY TECHNIQUE: STROKE CTA HEAD AND NECK W/CON Multiplanar Sagittal and Coronal images were obtained. CONTRAST: Isovue 370 VOLUME: 100 mL One or more dose reduction techniques were used (e.g., Automated exposure control, adjustment of the mA and/or kV according to patient size, use of iterative reconstruction technique). RADIATION DOSE SUMMARY: CTDlvol: 26.19 mGy DLP: 906.12 mGycm COMPARISON: None. FINDINGS: Aortic Arch: Normal size and branching pattern. No significant atherosclerotic plaque. Brachiocephalic and Subclavians: Unremarkable RIGHT Carotid: Right CCA: Unremarkable. Right ICA: Unremarkable. Right ECA: Unremarkable. LEFT Carotid: Left CCA: Unremarkable. Left ICA: Unremarkable. Left ECA: Unremarkable. Vertebrals: Codominant. Arise from the subclavians. Both vertebrals form the basilar. RIGHT Vertebral: Unremarkable. LEFT Vertebral: Unremarkable. Anatomy: [place] anatomy is normal. Aneurysm or avm: No intracranial aneurysms or large vascular malformations are identified. Anterior cerebral arteries: Unremarkable: Middle cerebral arteries: Unremarkable. Basilar artery: Unremarkable. Posterior cerebral arteries: Unremarkable. Other major branches of the posterior circulation: Unremarkable. Major venous structures: Unremarkable. Other findings: Neck: No lymphadenopathy. Lungs: Lung apices are clear. Bones: Bones are unremarkable. CT/STROKE CTA Head AND Neck W/Con IMPRESSION: Unremarkable CTA of the head and neck without significant stenosis. No aneurysm or vascular malformation. Reading Location: [facility] CC: SMOG TECHNICIAN Bettina Fuentes; Dr. Deangelo Thao DO Safety Lamp Keeper: Signed Normal [facility] Serum creatinine measurement (mass/volume)Ordered By: Deangelo Thao on 01-07-2025 Creatinine [Mass/Vol] 0.72 mg/dL 0.70-1.20 [facility] Serum glucose measurement (m ass/volume)Ordered By: Deangelo Thao on 01-07-2025 Glucose [Mass/Vol] 80 mg/dL 70-99 [facility] Serum or plasma calcium ta urement (mass/volume)Ordered By: Deangelo Thao on 01-07-2025 Calcium [Mass/Vol] 8.6 mg/dL 7.6-11.0 [facility] Serum or plasma urea nitroge n measurement (mass/volume)Ordered By: Deangelo Thao on 01-07-2025 Urea nitrogen [Mass/Vol] 12 mg/dL 4-19 [facility] Sodium levelOrdered By: Erin Thao on 01-07-2025 Sodium [Moles/Vol] 141 mmol/L 133-145 [facility] TSH DL <= 0.005 mIU/L QnOrde red By: Deangelo Thao on 01-07-2025 TSH Qn 1.260 uIU/mL 0.300-4.20 0 [facility] Thyroid Stim Hormone (TSH)on 01-07-2025 TSH 1.260 uIU/mL Normal 0.300-4.20 0 [facility] Comment on above: Performed By: #### L 500.2500, L501.9520, L100.0100 ####[facility] [address], [address] White blood cell (WBC) count Ordered By: Deangelo Thao on 01-07-2025 WBC (Bld) [#/Vol] 11.2 10*3/uL High 4.4-11.0 [facility] 11-09-2024 CNPN Telephone (FAMPWS) FERNANDA HERNANDEZ ([id number]) 1980 F Date Time Provider Department 11/09/24 [facility] During your visit today, we recorded the following information about you: Yojana Palmer RN 11/09/2024 8:57 AM Signed Patient calling in. Reports she is currently in [place]. Reports she saw [facility] last week for a steroid injection, which has not helped her left knee pain. States she has right leg sciatica flare now as well and is going crazy due to the discomfort. Unable to take NSAIDS. Taking Tylenol, using ice and topical analgesics. Tearful. Asking if Milady Fuentes CNP would [facility] [place] [facility]nisone or other medication. Pt sees Dr. Hummel in Pain Mgmt for cervical issues. Informed pt that provider is out of the office. Advised patient to contact [facility] or seek local UC or ED [...] and provider message reviewed with verbalized understanding. oSphia Greco RN Allergies As of Date: 11/09/2024 [...] resistant to (more content not included)... 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 Chief Complaint: Left knee steroid injection Allergies [...] 07/18/24 07:57 11/01/24 1427 Date Eddie FOLEY Cosigner Signature: Date (if applicable) CC: Normal [facility] Knee 4 or More Viewson 10-31 Knee 4 or More Views [facility] Imaging Services [address] [place] [address] [place] [address] Knee 4 or More Views MR#: [id number] Acct: [id number] Name: FERNANDA HERNANDEZ Rep #: [id number] : 1980 F 44 From: Patsy rothman MD PCP: FLORES Tee Status: DEP AMB Study: Knee 4 or More Views Date of Exam: 10/31/24 Exam# [id number] Ordering Dr: Lindsay Rivera PROCEDURE: KNEE 4 [...] Degenerative joint disease, mildly progressed. Reading Location: [place] [address] CC: FLORES Fuentes; REN Rivera Safety Lamp Keeper: Signed Normal [facility] Orthopedic Visit Reporton Orthopedic Visit Report [facility] [address] [place] [address] OFFICE VISIT Date of Service: 10/31/24 MR#: [id number] Acct: [id number] Name: FERNANDA HERNANDEZ Rep #: [id number] : 1980 Provider: REN hutchison Age/Sex: 44/F Location: [facility] Status: Signed Intake Vital Signs 09/13/24 09:07 [...] provided and the decisions made by me, WILLIS LindsayC 10/31/24 9391. Part of today???s visit was documented by [...] and bene (more content not included)... [facility] Office Visit (FAMPWS ) FERNANDA HERNANDEZ ([id number]) 1980 F Date Time Provider Department 10/14/24 3:20 PM BETTINA FUENTES FAMPWS During your visit today, we recorded the following information about you: Pulse Blood pressure Weight 87/minute 130/76 108.4 kg Bettina Fuentes APRN.RACHID 10/14/2024 3:49 PM Signed This is a [...] Recent increase in gabapentin and baclofen by automobile painter on Thursday; also prescribed a steroid pack. [...] by mouth (more content not included)... Normal [facility] PT D/C Summary (1)on 025 PT D/C Summary (1) [facility] [address] [place] [address] / REHABILITATION SERVICES DISCHARGE SUMMARY MR#: [id number] Acct: [id number] Name: FERNANDA HERNANDEZ Rep #: [id number] : 1980 44 From: Roc Grover DPT, OCS, CSCS Referring Dr.: FLORES Fuentes Status: R EG RCR Insurance: [facility] SELF PAY INSURANCE Discharge Summary D/C [...] please feel free to call me at [phone]. Thank you for the referral of this patient. Sincerely, Rco Grover, DPT, OCS, CSCS Balance/Gait/Functional tests Balance/Special Test Scores Functional Gait Assessment Score: 22 % Disability: 26.6700 CATSIB Score (Max score 120 seconds): 90 Dizziness Score: 4 Improvement % Improvement: 50 10/05/24 0933 CC: FLORES Fuentes EBG Signed Normal [facility] Orthopedic Visit Reporton Orthopedic Visit Report [facility] [address] [place] [address] OFFICE VISIT Date of Service: 09/13/24 MR#: [id number] Acct: [id number] Name: FERNANDA HERNANDEZ Rep #: [id number] : 1980 Provider: Dr. Jermaine portillo MD Age/Sex: 44/F Location: [facility] Status: Signed Intake Vital Signs 07/18/24 18:47 [...] Performing Provider: Jermaine Levy MD Performing Location: [facility] Administered by: Jermaine Levy MD on 09/13/24 09:15 Dose Route Admin Location Dispensed Lot Number Expiration Date NDC Man ufacturer 25 mg intra-articular Left knee 2.5 mL [id number] 07/23/27 [address]-5 Topmission Coding Level of Care Code Attention Summer Clerk Diagnoses Osteoarthritis of left knee M17.12 CPT Codes vest maker.knee (65626) Comment L knee supartz 3/3. Assessment and [...] care inst (more content not included)... Normal [facility] Orthopedic Visit Reporton Orthopedic Visit Report [facility] [address] [place], [place] [address] OFFICE VISIT Date of Service: 09/06/24 MR#: [id number] Acct: [id number] Name: FERNANDA HERNANDEZ Rep #: [id number] : 1980 Provider: Dr. Jermaine portillo MD Age/Sex: 44/F Location: [facility] Status: Signed Intake Vital Signs 07/18/24 18:47 [...] Performing Provider: Jermaine Levy MD Performing Location: [facility] Administered by: Jermaine Levy MD on 09/06/24 09:18 Dose Route Admin Location Dispensed Lot Number Expiration Date NDC Man ufacturer 25 mg intra-articular Left knee 2.5 mL [id number] 07/23/27 [address]-1 Topmission Coding Level of Care Code Attention Gopi Diagnoses Osteoarthritis of left knee M17.12 CPT Codes vest maker.knee (55905) Comment L knee supartz 2/3 Assessment and [...] which c (more content not included)... Normal [facility] 08-30-2024 [facility] Telephone (PSYCST) FERNANDA HERNANDEZ ([id number]) 1980 F Date Time Provider Department 08/30/24 ANAHI DOWNS PSYCST During your visit today, we [...] GI Upset Date Reviewed: 08/29/2024 Reviewed by: Anahi Downs APRN.SCIENCE PROFESSOR - Fully Assessed Reason for Visit: Appointment [...] RELIEF) 50 mcg/actuation nasal spray Use 1 Seville in each nostril once daily. - DULoxetine [...] Status:Closed by ELLIE KWONG on 08/30/24 Normal [facility] Orthopedic Visit Reporton Orthopedic Visit Report [facility] [address] [place] [address] OFFICE VISIT Date of Service: 08/30/24 MR#: [id number] Acct: [id number] Name: FERNANDA HERNANDEZ Rep #: [id number] : 1980 Provider: Dr. Jermaine portillo MD Age/Sex: 44/F Location: [facility] Status: Signed with Addenda ADDENDUM by Melisa Watkins on 08/30/24 at 0956 Office Procedure Documentation entered by Melisa Watkins 08/30/24 09:56: Ortho Injections Injections Yes Knee Is this a patient provided medication?: No Office Meds Supartz FX 10 mg/mL intra-articular syringe Performing Provider: Jermaine Levy MD Performing Location: [facility] Administered by: Jermaine Levy MD on 08/30/24 09:56 Dose Route Admin Location Dispensed Lot Number Expiration Date NDC Man ufacturer 25 mg intra-articular left knee 2.5 mL [id number] 07/23/27 [address]-6 Topmission Date cc: * Signed Intake Vital Signs [...] swelling 08/30/24 (more content not included)... Normal [facility] CNOVon 08-10-2024 CNOV Office Visit (GENSWS ) FERNANDA HERNANDEZ ([id number]) 1980 F Date Time Provider Department 08/10/24 9:00 AM ASHLEE LEE During your visit today, we recorded the following information about you: Temperature 97.8 degrees Ashlee Lee APRN.CNP 08/10/2024 9:33 AM Signed FOLLOW UP VISIT - SKIN LESION NAME: Fernanda Rosales David CLINIC NO.: [id number] DATE OF SERVICE: 08/04/2024 : 1980 Fernanda [...] sebaceous cyst (primary encounter diagnosis) Ashlee Lee APRN.SCIENCE PROFESSOR Allergies As of Date: 08/10/2024 Noted Allergy [...] RELIEF) 50 mcg/actuation nasal spray Use 1 [place] in each nostril once daily. - tiZANidine [...] [L72.3] 0 (more content not included)... Normal [facility]20[facility] FERNANDA HERNANDEZ ([id number]) 1980 F Date Time Provider Department 08/09/24 [facility] your visit today, we recorded the following information about you: Sophia Greco RN 08/09/2024 8:45 AM Signed Bry PT with [facility] calls to report that patient is scheduled for therapy session tonight for vestibular therapy and asking for PT order to be faxed to them. Faxed PT order from yesterday to [phone] per request. Sophia Greco RN Allergies As [...] RELIEF) 50 mcg/actuation nasal spray Use 1 [place]ville in each nostril once daily. - tiZANidine [...] Encounter Status:Closed by SOPHIA GRECO on 08/09/24 [facility] Inital Evaluation (1) - PTon 08-09-2024 Inital Evaluation (1) - PT [facility] [address] [place] [address] / REHABILITATION SERVICES INITIAL EVALUATION MR#: [id number] Acct: [id number] Name: FERNANDA HERNANDEZ Rep #: [id number] : 1980 44 From: Roc Grover DPT, OCS, CSCS Referring Dr.: FLORES Tee Status: R EG RCR Insurance: [facility] SELF PAY INSURANCE Patient's Visit Information Visit Information Visit Information: FERNANDA HERNANDEZ is a 44 year old F referred to Physical Therapy by FLORES Tee with a diagnosis of BPPV. Date [...] VOR x 2, or moving VOR, may aedlfo head up and down habituation also. Subjective [...] to be FAXED BACK to us at [phone] for Medicare purposes. For Medicare only, by signing this I certify the plan of care. Please let me know if there are questions or concerns regarding this plan of care. Physician Signature: Date: 08/09/24 1751 CC: FLORES Fuentes EBG Signed Normal [facility] CNOVon 08-08-2024 CN Office Visit (FAMPWS ) FERNANDA HERNANDEZ ([id number]) 1980 F Date Time Provider Department 08/08/24 10:00 AM BETTINA FUENTES [facility] During your visit today, we recorded the following information about you: Temperature Pulse Blood pressure Weight 97.6 degrees 77/minute 130/78 109.3 kg Bettina Fuentes, FACILITIES ADMINISTRATOR.SCIENCE PROFESSOR 08/08/2024 10:40 AM Signed This is a 44 year old female who presents today with: Patient presents with: Dizziness: 2 episodes within the last week HISTORY OF PRESENT ILLNESS: Fernanda Bobby Hernandez is a 44 year old female. [...] RELIEF) 50 mcg/actuation nasal spray Use 1 [place] in each nostril once daily. Promethazine-DM (PHENERGAN-DM) [...] Pupils: Pupil (more content not included)... Normal [facility] CNOVon 08-04-2024 CNOV Office Visit (GENSWS ) FERNANDA HERNANDEZ ([id number]) 1980 F Date Time Provider Department 08/04/24 2:00 PM ASHLEE LEE During your visit today, we recorded the following information about you: Temperature 98.4 degrees Ashlee Lee APRN.SCIENCE PROFESSOR 08/04/2024 2:50 PM Signed FOLLOW UP VISIT - SKIN LESION NAME: Fernanda Hernandez [facility] NO.: [id number] DATE OF SERVICE: 08/04/2024 : 1980 REFERRING PHYSICIAN: Bettina Fuentes APRN.SCIENCE PROFESSOR Fernanda is a patient I am following [...] cyst (primary encounter diagnosis) Ashlee Lee APRN.RACHID Allergies As of Date: 08/04/2024 Noted Allergy [...] RELIEF) 50 mcg/actuation nasal spray Use 1 [place] in each nostril once daily. - Promethazine-DM [...] 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 Normal [facility] CNOVon 08-02-2024 CNOV Office Visit (GENSWS ) FERNANDA HERNANDEZ ([id number]) 1980 F Date Time Provider Department 08/02/24 1:15 PM NADER CALVILLO [facility] During your visit today, we [...] to your office visit today with the [facility] General Surgeons. Instructions After I AND D [...] you should contact our office immediately @ [phone] and ask to be transferred to the General Surgery department. Nader Calvillo MD 08/04/2024 10:35 AM Signed Preoperative [...] the procedure well. Referring Provider: BETTINA FUENTES [[id number]] Allergies As of Date: 08/02/2024 Noted Allergy [...] inclusion cyst [L72.0] Order(s):CONSULT TO GENERAL SURGERY [5769] Order #: [id number]: 1 Prescriptions as of 08/04/2024 - baclofen [...] RELIEF) 50 mcg/actuation nasal spray Use 1 [place]ville in each nostril once daily. - Promethazine-DM [...] 35 mcg (more content not included)... Normal [facility] CNOVon 08-01-2024 CNOV Office Visit (FAMPWS ) FERNANDA HERNANDEZ ([id number]) 1980 F Date Time Provider Department 08/01/24 3:00 PM BETTINA FUENTES [facility]AMPWS During your visit today, we recorded the following information about you: Temperature Pulse Blood pressure Weight 98.8 degrees 75/minute 132/88 110.2 kg Bettina Fuentes, PETR.SCIENCE PROFESSOR 08/01/2024 3:19 PM Signed This is a [...] RELIEF) 50 mcg/actuation nasal spray Use 1 Seville in each nostril once daily. Promethazine-DM (PHENERGAN-DM) [...] patient v (more content not included)... Normal [facility] FERNANDA HERNANDEZ ([id number]) 1980 F Date Time Provider Department 08/01/24 LILLIE BAUTISTA [facility] During your visit today, we recorded the [...] her appointment or go to a local [facility] care if she is not able [...] RELIEF) 50 mcg/actuation nasal spray Use 1 [place]ville in each nostril once daily. - Promethazine-DM [...] [F41.9] 09/15/2019 Polypharmacy (more content not included)... [facility] CNOVon 07-25-2024 [facility] Office Visit ([facility] ) FERNANDA HERNANDEZ ([id number]) 1980 F Date Time Provider Department 07/25/24 11:00 AM LILLIE BAUTISTA [facility] During your visit today, we recorded the following information about you: Weight Height 110.2 kg 1.575 m Lillie Bautista PA-C 07/25/2024 11:34 AM Signed [facility] Fernanda Hernandez 1980 July 25, [...] RELIEF) 50 mcg/actuation nasal spray Use 1 Seville in each nostril once daily. 11.1 mL [...] BIOTIN, BUL (more content not included)... Normal [facility] HISTORY PHYSICALon HISTORY PHYSICAL HNO ID: [id number] Author: LILLIE BAUTISTA PA-C Service: ? Author Type: Physician Employee Counselor Type: H&P Filed: 07/25/2024 11:34 Note Text: [facility] Fernanda Hernandez 1980 July 25, [...] RELIEF) 50 mcg/actuation nasal spray Use 1 [place] in each nostril once daily. 11.1 mL [...] Entex Pse [Pseu (more content not included)... [facility] CNOVon 07-21-2024 CNOV Office Visit (FAMPWS ) FERNANDA HERNANDEZ ([id number]) 1980 F Date Time Provider Department 07/21/24 11:20 AM [facility] your visit today, we recorded the following information about you: Temperature Pulse Blood pressure Weight 97 degrees 79/minute 122/88 108.9 kg Bettina Fuentes, PETR.SCIENCE PROFESSOR 07/21/2024 12:04 PM Signed This is a [...] Exam V (more content not included)... Normal [facility] 12 Lead EKGon 07-18-2024 12 Lead EKG [facility] Cardiovascular Services [address] [place] [address] 12 Lead EKG 07/18/24 210 MR#: [id number] Acct: [id number] Name: FERNANDA HERNANDEZ Rep #: [id number] : 1980 44 From: Cedric Stevens MD [...] rhythm Normal ECG Confirmed by Cedric Stevens ([id number]), news videotape editor NAOMIE GRANGER ([id number]) on 07/20/2024 8:05:49 AM Referred By: Confirmed By: Cedric Stevens 07/20/24804 Date Cedric Stevens MD CC: SMOG TECHNICIAN Bettina Fuentes; Dr. Chago Balderas DO Signed Normal [facility] Albumin to globulin ratioOrd ered By: Chago Balderas on 07-18-2024 Albumin/Globulin [Mass ratio] 0.8 {ratio} Low 0.9-2.4 [facility] Bilirubin Test strip Ql (U)O rdered By: Chago Balderas on 07-18-2024 Bilirubin Ql (U) Negative Negative [facility] Bilirubin, totalOrdered By: Chago Balderas on 07-18-2024 Bilirubin [Mass/Vol] 0.10 mg/dL Low 0.20-1.00 [facility] Comment on above: For patients on eltr ombopag therapy, use of Dimension [place] TBIL is not recommended. Blood urea nitrogen (BUN)/cr eatinine ratioOrdered By: Chago Balderas on 07-18-2024 Urea nitrogen/Creatinine [Mass ratio] 12.2 mg/mg 10-20 [facility] Brain/Head without Contrasto n 07-18-2024 Brain/Head without Contrast [facility] Imaging Services [address], [place] [address] Brain/Head without Contrast MR#: [id number] Acct: [id number] Name: FERNANDA HERNANDEZ Rep #: [id number] : 1980 F 44 From: Sameer Gold PCP: Bettina Fuentes, SMOG TECHNICIAN Status: REG ER Study: Brain/Head without Contrast Date of Exam: 06/26 09/16 Exam# [id number] Ordering Dr: Chago Balderas DO EXAM: CT [...] acute intracranial abnormality. Reading Location: CAIN CC: SMOG TECHNICIAN Bettina Fuentes; Dr. Chago Balderas DO Safety Lamp Keeper: Signed Normal [facility] CBC-Complete Blood Cnt No Di ffon 07-18-2024 Erythrocyte distribution width (RBC) [Ratio] 12.7 % Normal 11.6-14.6 [facility] Comment on above: Performed By: #### L 100.0500, L501.4020, L500.4050 #### [facility] Laboratory [address] [place], [address] Hematocrit (Bld) [Volume fraction] 38.5 % Normal 37-47 [facility] Comment on above: Performed By: #### L 100.0500, L501.4020, L500.4050 #### [facility] [address] [place], [address] Hemoglobin (Bld) [Mass/Vol] 12.8 g/dL Normal 12.0-15.0 [facility] Comment on above: Performed By: #### L 100.0500, L501.4020, L500.4050 #### [facility] [address] [place], [address] MCH (RBC) [Entitic mass] 30.0 pg Normal 27.0-32.0 [facility] Comment on above: Performed By: #### L 100.0500, L501.4020, L500.4050 #### [facility] [address] [place], [address] MCHC (RBC) [Mass/Vol] 33.2 g/dL Normal 32-36 [facility] Comment on above: Performed By: #### L 100.0500, L501.4020, L500.4050 #### [facility] [address] [place], [address] MCV (RBC) [Entitic vol] 90.2 fL Normal 81-99 [facility] Comment on above: Performed By: #### L 100.0500, L501.4020, L500.4050 #### [facility] [address] [place], [address] Platelet mean volume (Bld) [Entitic vol] 11.0 fL Normal 6.2-12.0 [facility] Comment on above: Performed By: #### L 100.0500, L501.4020, L500.4050 #### [facility] [address] [place], [address] Platelets (Bld) [#/Vol] 292 10*3/uL Normal 150-450 [facility] Comment on above: Performed By: #### L 100.0500, L501.4020, L500.4050 #### [facility] [address] [place], [address] RBC (Bld) [#/Vol] 4.27 10*6/uL Normal 4.2-5.4 [facility] Comment on above: Performed By: #### L 100.0500, L501.4020, L500.4050 #### [facility] [address] [place], [address] RDW SD 42.2 fl Normal 35.1-43.9 [facility] Comment on above: Performed By: #### L 100.0500, L501.4020, L500.4050 #### [facility] [address] [place], [address] WBC (Bld) [#/Vol] 8.1 10*3/uL Normal 4.4-11.0 [facility] Comment on above: Performed By: #### L 100.0500, L501.4020, L500.4050 #### [facility] [address] [place], [place], [address] Carbon dioxide measurementOr dered By: Chago Balderas on 07-18-2024 CO2 [Moles/Vol] 23.0 mmol/L 21.0-32.0 [facility] Chest 1 View (Portable)on Chest 1 View (Portable) [facility] Imaging Services [address] [place], [place] [address] Chest 1 View (Portable) MR#: [id number] Acct: [id number] Name: FERNANDA HERNANDEZ Rep #: [id number] : 1980 F 44 From: Supa Peck i, DO PCP: FLORES Tee Status: REG ER Study: Chest 1 View (Portable) Date of Exam: 07/18/24 Exam# [id number] Ordering Dr: Chago Balderas DO PROCEDURE: Portable [...] CT evaluation may be considered. Reading Location: GAYLA CC: SMOG TECHNICIAN Bettina Fuentes; Dr. Chago Balderas DO Safety Lamp Keeper: Signed Normal [facility] Chloride measurementOrdered By: Chago Balderas on 07-18-2024 Chloride [Moles/Vol] 106 mmol/L 98-107 [facility] Comprehensive Metabolic Prof ilon 07-18-2024 Albumin [Mass/Vol] 3.1 g/dL Low 3.2-5.0 [facility] Comment on above: Order Comment: 'TROP ' Serial specimen #1, #2 or #3: 1 Performed By: #### L 100.0500, L501.4020, L500.4050 #### [facility] [address] [place], [address] Albumin/Globulin [Mass ratio] 0.8 {ratio} Low 0.9-2.4 [facility] Comment on above: Order Comment: 'TROP ' Serial specimen #1, #2 or #3: 1 Performed By: #### L 100.0500, L501.4020, L500.4050 #### [facility] [address] [place], [address] ALK P 84 U/L Normal 45-117 [facility] Comment on above: Order Comment: 'TROP ' Serial specimen #1, #2 or #3: 1 Performed By: #### L 100.0500, L501.4020, L500.4050 #### [facility] [address] [place], [address] ALT [Catalytic activity/Vol] 29 U/L Normal 13-56 [facility] Comment on above: Order Comment: 'TROP ' Serial specimen #1, #2 or #3: 1 Performed By: #### L 100.0500, L501.4020, L500.4050 #### [facility] [address] [place], [address] AST [Catalytic activity/Vol] 31 U/L Normal 15-37 [facility] Comment on above: Order Comment: 'TROP ' Serial specimen #1, #2 or #3: 1 Performed By: #### L 100.0500, L501.4020, L500.4050 #### [facility] [address] [place], [address] Bilirubin [Mass/Vol] 0.10 mg/dL Low 0.20-1.00 [facility] Comment on above: Order Comment: 'TROP ' Serial specimen #1, #2 or #3: 1 Result Comment: For patients on eltrombopag therapy, use of Dimension [place] TBIL is not recommended. Performed By: #### L 100.0500, L501.4020, L500.4050 #### [facility] [address] [place], [address] BUN/CRE 12.2 RATIO Normal 10-20 [facility] Comment on above: Order Comment: 'TROP ' Serial specimen #1, #2 or #3: 1 Performed By: #### L 100.0500, L501.4020, L500.4050 #### [facility] [address] [place], [address] CA,Total 8.6 mg/dL Normal 8.5-10.1 [facility] Comment on above: Order Comment: 'TROP ' Serial specimen #1, #2 or #3: 1 Performed By: #### L 100.0500, L501.4020, L500.4050 #### [facility] [address] [place], [address] Chloride [Moles/Vol] 106 mmol/L Normal 98-107 [facility] Comment on above: Order Comment: 'TROP ' Serial specimen #1, #2 or #3: 1 Performed By: #### L 100.0500, L501.4020, L500.4050 #### [facility] [address] [place], [address] CO2 [Moles/Vol] 23.0 mmol/L Normal 21.0-32.0 [facility] Comment on above: Order Comment: 'TROP ' Serial specimen #1, #2 or #3: 1 Performed By: #### L 100.0500, L501.4020, L500.4050 #### [facility] [address] [place], [address] Creatinine [Mass/Vol] 0.66 mg/dL Normal 0.55-1.02 [facility] Comment on above: Order Comment: 'TROP ' Serial specimen #1, #2 or #3: 1 Result Comment: The validity of the calculated GFR GFRAA in patients over 70 years has not been determined. Clinical correlation is essential. Performed By: #### L 100.0500, L501.4020, L500.4050 #### [facility] [address] [place], [address] ECRCL 128.44 ml/min Normal [facility] Comment on above: Order Comment: 'TROP ' Serial specimen #1, #2 or #3: 1 Performed By: #### L 100.0500, L501.4020, L500.4050 #### [facility] [address] [place], [address] EST GFR - AA 125 mL/min Normal >60 [facility] Comment on above: Order Comment: 'TROP ' Serial specimen #1, #2 or #3: 1 Result Comment: Afri can Tunisian GFR Calc Performed By: #### L 100.0500, L501.4020, L500.4050 #### [facility] [address] [place], [address] GAP 10 Normal 5-15 [facility] Comment on above: Order Comment: 'TROP ' Serial specimen #1, #2 or #3: 1 Performed By: #### L 100.0500, L501.4020, L500.4050 #### [facility] [address] [place], [address] GFR/1.73 sq M.predicted among non-blacks MDRD (S/P/Bld) [Vol rate/Area] 103 mL/min/{1.73_m2} Normal >60 [facility] Comment on above: Order Comment: 'TROP ' Serial specimen #1, #2 or #3: 1 Result Comment: Non- GFR Calc Performed By: #### L 100.0500, L501.4020, L500.4050 #### [facility] [address] [place], [address] Globulin (S) [Mass/Vol] 4.1 g/dL Normal 2.2-4.2 [facility] Comment on above: Order Comment: 'TROP ' Serial specimen #1, #2 or #3: 1 Performed By: #### L 100.0500, L501.4020, L500.4050 #### [facility] [address] [place], [address] Glucose [Mass/Vol] 96 mg/dL Normal 74-106 [facility] Comment on above: Order Comment: 'TROP ' Serial specimen #1, #2 or #3: 1 Performed By: #### L 100.0500, L501.4020, L500.4050 #### [facility] [address] [place], [address] Potassium [Moles/Vol] 3.5 mmol/L Normal 3.5-5.1 [facility] Comment on above: Order Comment: 'TROP ' Serial specimen #1, #2 or #3: 1 Performed By: #### L 100.0500, L501.4020, L500.4050 #### [facility] [address] [place], [address] Sodium [Moles/Vol] 139 mmol/L Normal 136-145 [facility] Comment on above: Order Comment: 'TROP ' Serial specimen #1, #2 or #3: 1 Performed By: #### L 100.0500, L501.4020, L500.4050 #### [facility] [address] [place], [address] T PROT 7.2 g/dL Normal 6.4-8.2 [facility] Comment on above: Order Comment: 'TROP ' Serial specimen #1, #2 or #3: 1 Performed By: #### L 100.0500, L501.4020, L500.4050 #### [facility] [address] [place], [address] Urea nitrogen [Mass/Vol] 8 mg/dL Normal 7-18 [facility] Comment on above: Order Comment: 'TROP ' Serial specimen #1, #2 or #3: 1 Performed By: #### L 100.0500, L501.4020, L500.4050 #### [facility] [address] [place], [address] Emergency Department Summary on 07-18-2024 Emergency Department Summary [facility] Medical Records Department [address] [place] [address] Emergency Department Summary 07/18/24 MR#: [id number] Acct: [id number] Name: FERNANDA HERNANDEZ Rep #: [id number] : 1980 44 From: Chago Balderas DO PCP: Bettina Fuentes, SMOG TECHNICIAN Status:REG ER Location: ED HPI History of Present Illness Chief Complaint: [facility] Medical History Osteoarthritis of left knee Back [...] 100 100 Oxygen Delivery Method Room Air MDM MDM MDM Narrative Medical decision making narrative: HISTORY OF [...] are intact. (more content not included)... Normal [facility] Epithelial cells.squamous LM Ql (Urine sed)Ordered By: Chago Baldreas on 07-18-2024 Epithelial cells.squamous LM.HPF (Urine sed) [#/Area] 0 /[HPF] 5-10 [facility] Erythrocyte distribution wid th ratioOrdered By: Chago Balderas on 07-18-2024 Erythrocyte distribution width (RBC) [Ratio] 12.7 % 11.6-14.6 [facility] Erythrocyte distribution wid th standard deviationOrdered By: Chago Balderas on 07-18-2024 Erythrocyte distribution width (RBC) [Entitic vol] 42.2 fL 35.1-43.9 [facility] Erythrocyte distribution width (RBC) [Ratio] 42.2 fl 35.1-43.9 [facility] Estimated glomerular filtrat ion rate (GFR) AmericanOrdered By: Chago Balderas on 07-18-2024 Estimated GFR (MDRD) Amer 125 mL/min >60 [facility] Comment on above: GFR Calc Estimation of creatinine anh aranceOrdered By: Chago Balderas on 07-18-2024 Estimated Creatinine Clearance Calc 128.44 ml/min [facility] Glomerular filtration rate ( GFR) estimationOrdered By: Chago Balderas on 07-18-2024 Estimated GFR (MDRD) Non-Af Amer 103 mL/min >60 [facility] Comment on above: Non- GFR Calc GFR/1.73 sq M.predicted among non-blacks MDRD (S/P/Bld) [Vol rate/Area] 103 mL/min/{1.73_m2} >60 [facility] Comment on above: Non- GFR Calc Glucose Ql (U)Ordered By: Jhoan Balderas on 07-18-2024 Urine Glucose (UA) Normal mg/dl Normal [facility] Glucose measurementOrdered B y: Chago Balderas on 07-18-2024 Glucose [Mass/Vol] 96 mg/dL 74-106 [facility] Hematocrit Auto (Bld) [Volum e fraction]Ordered By: Chago Balderas on 07-18-2024 Hematocrit (Bld) [Volume fraction] 38.5 % 37-47 [facility] Hemoglobin measurementOrdere d By: Chago Balderas on 07-18-2024 Hemoglobin (Bld) [Mass/Vol] 12.8 g/dL 12.0-15.0 [facility] Ketones Test strip Ql (U)Ord ered By: Chago Balderas on 07-18-2024 Ketones Ql (U) 50 mg/dl High Negative [facility] L501.4020on 07-18-2024 TROPONIN-I HS 3 pg/mL Normal 3.0-54.0 [facility] Comment on above: Order Comment: 'TROP ' Serial specimen #1, #2 or #3: 1 Result Comment: Sanjeev pruett Note: New Test Units and Gender Specific Reference Ranges. For more information see Policy Stat Procedure [place] High Sensitivity Troponin (TNIH) and attachments. Performed By: #### L 100.0500, L501.4020, L500.4050 #### [facility] [address] [place], [address] Laboratory - Chemistry and C hemistry - challengeOrdered By: Chago Balderas on 07-18-2024 AST [Catalytic activity/Vol] 31 U/L 15-37 [facility] M100.677on 07-18-2024 M100.677 Negative Normal [facility] Comment on above: Performed By: #### L 400.7600, M100.677, L400.0001 #### [facility] [address] [place], [address] MCV (mean corpuscular volume ) determinationOrdered By: Chago Balderas on 07-18-2024 MCV (RBC) [Entitic vol] 90.2 fL 81-99 [facility] Mean corpuscular hemoglobin (MCH) determinationOrdered By: Chago Balderas on 07-18-2024 MCH (RBC) [Entitic mass] 30.0 pg 27.0-32.0 [facility] Mean corpuscular hemoglobin concentration (MCHC) determinationOrdered By: Chago Balderas on 07-18-2024 MCHC (RBC) [Mass/Vol] 33.2 g/dL 32-36 [facility] Mean platelet volume determi nationOrdered By: Chago Balderas on 07-18-2024 Platelet mean volume (Bld) [Entitic vol] 11.0 fL 6.2-12.0 [facility] Microscopic analysis of urin e for red blood cells (RBC)Ordered By: Chago Balderas on 07-18-2024 Microscopic analysis of urine for red blood cells (RBC) 0 SEEN /hpf 0-5 [facility] Urine RBC 0 SEEN /hpf 0-5 [facility] Mucus LM Ql (Urine sed)Order ed By: Chago Balderas on 07-18-2024 Mucus Ql (Urine sed) 1+ /hpf [facility] Nitrite Test strip Ql (U)Ord ered By: Chago Balderas on 07-18-2024 Nitrite Ql (U) Negative Negative [facility] No Panel InformationOrdered By: Eddie Cedeno on 07-18-2024 Influenza Types A,B Rapid (Clinic) Negative [facility] POC SARS CoV-2 Antigen Negative [facility] Platelet countOrdered By: Jhoan Balderas on 07-18-2024 Platelets (Bld) [#/Vol] 292 10*3/uL 150-450 [facility] Potassium measurementOrdered By: Chago Balderas on 07-18-2024 Potassium [Moles/Vol] 3.5 mmol/L 3.5-5.1 [facility] ,Urineon 07-18-2024 Beta HCG ( test) Ql (U) Negative Normal [facility] Comment on above: Result Comment: Very dilute urine specimens, as indicated by a low specific gravity, may not contain patient care representative levels of hCG. If is still suspected, a first morning urine specimen should be collected 48 hours later and tested. Performed By: #### L 400.7600, M100.677, L400.0001 #### [facility] [address] [place], [address] Protein Test strip Ql (U)Ord ered By: Chago Balderas on 07-18-2024 Protein Ql (U) 15 mg/dl High Negative [facility] RBC Auto (Bld) [#/Vol]Ordere d By: Chago Balderas on 07-18-2024 RBC (Bld) [#/Vol] 4.27 10*6/uL 4.2-5.4 [facility] S. pyogenes rRNA Probe Ql (T hroat)Ordered By: Chago Balderas on 07-18-2024 Streptococcus pyogenes (PCR) [facility] Serum anion gap measurementO rdered By: Chago Balderas on 07-18-2024 Anion gap [Moles/Vol] 10 mmol/L 5-15 [facility] Serum globulin measurementOr dered By: Chago Balderas on 07-18-2024 Globulin (S) [Mass/Vol] 4.1 g/dL 2.2-4.2 [facility] Serum or plasma alanine pappas otransferase (ALT) measurementOrdered By: Chago Balderas on 07-18-2024 ALT [Catalytic activity/Vol] 29 U/L 13-56 [facility] Serum or plasma albumin ta urement (mass/volume)Ordered By: Chago Balderas on 07-18-2024 Albumin [Mass/Vol] 3.1 g/dL Low 3.2-5.0 [facility] Serum or plasma alkaline elisha sphatase measurementOrdered By: Chago Balderas on 07-18-2024 ALP [Catalytic activity/Vol] 84 U/L 45-117 [facility] Serum or plasma calcium ta urement (mass/volume)Ordered By: Chago Balderas on 07-18-2024 Calcium [Mass/Vol] 8.6 mg/dL 8.5-10.1 [facility] Serum or plasma creatinine m easurement (mass/volume)Ordered By: Chago Balderas on 07-18-2024 Creatinine [Mass/Vol] 0.66 mg/dL 0.55-1.02 [facility] Comment on above: The validity of the calculated GFR & GFRAA in patients over 70 years has not been determined. Clinical correlation is essential. Serum or plasma urea nitroge n measurement (mass/volume)Ordered By: Chago Balderas on 07-18-2024 Urea nitrogen [Mass/Vol] 8 mg/dL 7-18 [facility] Sodium levelOrdered By: Galindo Balderas on 07-18-2024 Sodium [Moles/Vol] 139 mmol/L 136-145 [facility] Squamous epithelial cells de tection in urine sediment by light microscopyOrdered By: Chago Balderas on 07-18-2024 Epithelial cells.squamous LM Ql (Urine sed) 0-5 SEEN /hpf 5-10 [facility] Streptococcus pyogenes rRNA detection in throat by DNA probeOrdered By: Chago Balderas on 07-18-2024 S. pyogenes rRNA Probe Ql (Throat) [facility] Total proteinOrdered By: Fred Balderas on 07-18-2024 Protein [Mass/Vol] 7.2 g/dL 6.4-8.2 [facility] Troponin IOrdered By: Chago Balderas on 07-18-2024 Troponin I 3 pg/mL 3.0-54.0 [facility] Comment on above: Please Note: New Karol t Units and Gender Specific Reference Ranges. For more information see Policy Stat Procedure [place] High Sensitivity Troponin (TNIH) and attachments. Troponin I High Sensitivity 3 pg/mL 3.0-54.0 [facility] Comment on above: Please Note: New Karol t Units and Gender Specific Reference Ranges. For more information see Policy Stat Procedure [place] High Sensitivity Troponin (TNIH) and attachments. Urgent Care Visit Reporton 0 07-18-2024 Urgent Care Visit Report [facility] [address] , [address] [place] [address] OFFICE VISIT Date of Service: 07/18/24 MR#: [id number] Acct: [id number] Name: FERNANDA HERNANDEZ Rep #: [id number] : 1980 Provider: OG Nuno Age/Sex: 44/F Location: [facility] Status: Signed Intake Vital Signs 06/28/24 05:39 [...] here on thursday. Ran rapid covid/flu test. [facility] Medical History Osteoarthritis of left knee Back [...] of COVID-19 and influenza and RSV. No ohgs-udd-gjpzghf products taken to assist. Several close contacts with similar URI complaints. Non-smoker. No duld-pyu-libgwer products taken to assist. No other associated [...] noted Chest (more content not included)... Normal [facility] Urinalysis, Completeon 07-18 BACTERIA 1+ /hpf Normal None Seen [facility] Comment on above: Order Comment: CLEAN CATCH Performed By: #### L 400.2080, M100.677, L400.0001 #### [facility] [address] [place], [place], [id number] EPI,SQUAMOUS 0-5 SEEN Normal 5-10 [facility] Comment on above: Order Comment: CLEAN CATCH Performed By: #### L 400.7600, M100.677, L400.0001 #### [facility] [address] [place], [address] Mucus Ql (Urine sed) 1+ /hpf Normal [facility] Comment on above: Order Comment: CLEAN CATCH Performed By: #### L 400.7600, M100.677, L400.0001 #### [facility] [address] [place], [address] RBC 0 SEEN Normal 0-5 [facility] Comment on above: Order Comment: CLEAN CATCH Performed By: #### L 400.7600, M100.677, L400.0001 #### [facility] [address] [place], [address] WBC 0-5 SEEN Normal 0-5 [facility] Comment on above: Order Comment: CLEAN CATCH Performed By: #### L 400.7600, M100.677, L400.0001 #### [facility] [address] [place], [address] Urine blood detectionOrdered By: Chago Balderas on 07-18-2024 Urine Occult Blood Negative Negative [facility] Urine clarityOrdered By: Fred Balderas on 07-18-2024 Clarity (U) Sl. Cloudy Clear [facility] Urine color determinationOrd ered By: Chago Balderas on 07-18-2024 Color (U) Yellow Yellow [facility] Urine glucose detectionOrder ed By: Chago Balderas on 07-18-2024 Glucose Ql (U) Normal mg/dl Normal [facility] Urine leukocyte esterase det ection by dipstickOrdered By: Chago Balderas on 07-18-2024 Leukocyte esterase Test strip Ql (U) 100 /ul High Negative [facility] Urine pHOrdered By: Chago avilez on 07-18-2024 pH (U) 6.0 [pH] 5.0 - 8.0 [facility] Urine testOrdered By: Chago Balderas on 07-18-2024 HCG ( test) Ql (U) Negative [facility] Comment on above: Very dilute urine sp ecimens, as indicated by a low specificgravity, may not contain patient care representative levels of hCG. If is still suspected, a first morning urinespecimen should be collected 48 hours later and tested. Urine sediment bacteria coun t by microscopy (number/high power field)Ordered By: Chago Balderas on 07-18-2024 Bacteria LM.HPF (Urine sed) [#/Area] 1 /[HPF] None Seen [facility] Urine specific gravity measu rementOrdered By: Chago Balderas on 07-18-2024 Specific gravity (U) [Rel density] 1.010 1.002-1.03 0 [facility] Urine urobilinogen measureme ntOrdered By: Chago Balderas on 07-18-2024 Urobilinogen Ql (U) 4 mg/dl High Normal [facility] Urobilinogen Ql (U)Ordered B y: Chago Balderas on 07-18-2024 Urobilinogen (U) [Mass/Vol] 4 mg/dL High Normal [facility] White blood cell (WBC) count Ordered By: Chago Balderas on 07-18-2024 WBC (Bld) [#/Vol] 8.1 10*3/uL 4.4-11.0 [facility] White blood cell countOrdere d By: Chago Balderas on 07-18-2024 Urine WBC 0-5 SEEN /hpf 0-5 [facility] White blood cell count 0-5 SEEN /hpf 0-5 [facility] CNOVon 07-16-2024 CNOV Office Visit (UCTR ) FERNANDA HERNANDEZ ([id number]) 1980 F Date Time Provider Department 07/16/24 8:30 AM BERNDAETTE WINTERS [facility] During your visit today, we recorded the following information about you: Temperature Pulse Respiration Blood pressure 98 degrees 88/minute 21/minute 130/100 Weight 111.7 kg Bernadette Winters PA 07/16/2024 8:43 AM Signed This note was created using [employer]. Subjective Fernanda Hernandez is a 44 year [...] Normal appearance (more content not included)... Normal [facility] STREP A MOLECULAR (POC)on Procedural Control Valid [facility] Strep A (POCT) Negative Negative [facility] - Microbiology an d Antimicrobial susceptibilityOrdered By: Lester Hilton on 07-15-2024 SARS-CoV-2 (COVID-19) RNA ELIZABETH+probe Ql (Unsp spec) Not detected [facility] M100.019on 07-15-2024 M100.019 Normal Reference Ran ge = Negative SARS-CoV-2 (COVID 19) RT-PCR GeneXpert Instrument, PCR method SARS-CoV-2 (COVID 19) Negative Normal [facility] Comment on above: Performed By: #### M 100.019 ####[facility] [address] [place], [address] No Panel InformationOrdered By: Lester Hilton on 07-15-2024 POC Nasal Swab Influenza A,B Not detected [facility] POC Nasal Swab RSV Not detected [facility] Office Visit Reporton 2024 Office Visit Report [facility] [address] [place] [address] OFFICE VISIT Date of Service: 07/15/24 MR#: [id number] Acct: [id number] Patient: FERNANDA HERNANDEZ Rep #: [id number] : 1980 Provider: OG Ansari Age/Sex: 44/F Location: [facility] Status: Signed Employer Purchased Covid Test Note: Patient here today for Covid Testing, requested by their Employer. Assessment and Plan Assessment and Plan Orders: Orders POC Cepheid Covid, FluAB, RSV Today 07/15/24 1458 Date Lester Tariq Signature: Date (if applicable) CC: Normal [facility] [id number] By: Roc thompson on 07-15-2024 SARS-CoV-2 (COVID-19) RNA ELIZABETH+probe Ql (Unsp spec) [facility] Emergency Department Summary on 06-28-2024 Emergency Department Summary [facility] Records Department [address] [place] [address] Emergency Department Summary 06/28/24 MR#: [id number] Acct: [id number] Name: FERNANDA HERNANDEZ Rep #: [id number] : 1980 44 From: Bo Fontenot DO 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 [facility] Medical History Osteoarthritis of left [...] raise. N (more content not included)... Normal [facility] Abdomen/Pelvis without Conto n 06-27-2024 Abdomen/Pelvis without Cont [facility] Services [address] [place], [place] [address] Abdomen/Pelvis without Cont MR#: [id number] Acct: [id number] Name: FERNANDA HERNANDEZ Rep #: [id number] : 1980 F 44 From: Esthela Espinosa MD PCP: OG Snyder Status: PRE ER Study: Abdomen/Pelvis without Cont Date of Exam: 08/16 Exam# [id number] Ordering Dr: Corey Tristan MD EXAM: CT [...] fat. 4. No obstructive uropathy. Reading Location: [facility] CC: Dr. 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: Signed Normal [facility] Absolute lymphocyte countOrd ered By: Corey Tristan on 06-27-2024 Lymphocytes Auto (Unsp spec) [#/Vol] 2.72 10*3/uL 0.83-4.51 [facility] Absolute neutrophil countOrd ered By: Coreyai Tristan on 06-27-2024 Neutrophils (Bld) [#/Vol] 4.0 10*3/uL 2.0-7.7 [facility] Automated lymphocyte count a s percentage of total leukocytesOrdered By: Corey Tristan on 06-27-2024 Lymphocytes/100 WBC Auto (Unsp spec) 35.1 % 19-41 [facility] Basic Metabolic Profile (BMP )on 06-27-2024 BUN/CRE 14.9 RATIO Normal 10-20 [facility] Comment on above: Performed By: #### L 500.2500, L100.0100 ####[facility] [address] [place], [address] CA,Total 8.2 mg/dL Low 8.5-10.1 [facility] Comment on above: Performed By: #### L 500.2500, L100.0100 ####[facility] [address] [place], [address] Chloride [Moles/Vol] 106 mmol/L Normal 98-107 [facility] Comment on above: Performed By: #### L 500.2500, L100.0100 ####[facility] [address] [place], [address] CO2 [Moles/Vol] 28.0 mmol/L Normal 21.0-32.0 [facility] Comment on above: Performed By: #### L 500.2500, L100.0100 ####[facility] [address] [place], [address] Creatinine [Mass/Vol] 0.74 mg/dL Normal 0.55-1.02 [facility] Comment on above: Result Comment: The validity of the calculated GFR GFRAA in patients over 70 years has not been determined. Clinical correlation is essential. Performed By: #### L 500.2500, L100.0100 ####[facility] [address] [place], [address] ECRCL 113.65 ml/min Normal [facility] Comment on above: Performed By: #### L 500.2500, L100.0100 ####[facility] [address] [place], [address] EST GFR - AA 109 mL/min Normal >60 [facility] Comment on above: Result Comment: Afri can Tunisian GFR Calc Performed By: #### L 500.2500, L100.0100 ####[facility] [address] [place], [address] GAP 4 Low 5-15 [facility] Comment on above: Performed By: #### L 500.2500, L100.0100 ####[facility] [address] [place], [address] GFR/1.73 sq M.predicted among non-blacks MDRD (S/P/Bld) [Vol rate/Area] 90 mL/min/{1.73_m2} Normal >60 [facility] Comment on above: Result Comment: Non- GFR Calc Performed By: #### L 500.2500, L100.0100 ####[facility] [address] [place], [address] Glucose [Mass/Vol] 78 mg/dL Normal 74-106 [facility] Comment on above: Performed By: #### L 500.2500, L100.0100 ####[facility] [address] [place], [address] Potassium [Moles/Vol] 3.3 mmol/L Low 3.5-5.1 [facility] Comment on above: Performed By: #### L 500.2500, L100.0100 ####[facility] [address] [place], [address] Sodium [Moles/Vol] 138 mmol/L Normal 136-145 [facility] Comment on above: Performed By: #### L 500.2500, L100.0100 ####[facility] [address] [place], [address] Urea nitrogen [Mass/Vol] 11 mg/dL Normal 7-18 [facility] Comment on above: Performed By: #### L 500.2500, L100.0100 ####[facility] [address] [place], [address] Basophil percentageOrdered B y: Corey Tristan on 06-27-2024 Basophils/100 WBC (Bld) 0.8 % 0-1 [facility] Beta HCG ( test) Ql Ordered By: Corey Tristan on 06-27-2024 Serum Test, Qualitative Negative [facility] Bilirubin Test strip Ql (U)O rdered By: Corey Tristan on 06-27-2024 Bilirubin Ql (U) Negative Negative [facility] Blood urea nitrogen (BUN)/cr eatinine ratioOrdered By: Corey Tristan on 06-27-2024 Urea nitrogen/Creatinine [Mass ratio] 14.9 mg/mg 10-20 [facility] CBC W/Diff, Automatedon Absolute Lymph 2.72 X10 3/uL Normal 0.83-4.51 [facility] Comment on above: Performed By: #### L 500.2500, L100.0100 ####[facility] [address] [place], [address] Absolute Neut 4.0 X10 3/uL Normal 2.0-7.7 [facility] Comment on above: Performed By: #### L 500.2500, L100.0100 ####[facility] [address] [place], [address] Basophils/100 WBC (Bld) 0.8 % Normal 0-1 [facility] Comment on above: Performed By: #### L 500.2500, L100.0100 ####[facility] [address] [place], [address] Eosinophils/100 WBC (Bld) 4.8 % Normal 0-5 [facility] Comment on above: Performed By: #### L 500.2500, L100.0100 ####[facility] [address] [place], [address] Erythrocyte distribution width (RBC) [Ratio] 12.9 % Normal 11.6-14.6 [facility] Comment on above: Performed By: #### L 500.2500, L100.0100 ####[facility] [address] [place], [address] Hematocrit (Bld) [Volume fraction] 39.7 % Normal 37-47 [facility] Comment on above: Performed By: #### L 500.2500, L100.0100 ####[facility] [address] [place], [address] Hemoglobin (Bld) [Mass/Vol] 13.2 g/dL Normal 12.0-15.0 [facility] Comment on above: Performed By: #### L 500.2500, L100.0100 ####[facility] [address] [place], [address] IG% 0.300 Normal 0.0-0.9 [facility] Comment on above: Result Comment: IG% - Immature Granulocytes (promyelocytes, myelocytes and metamyelocytes) > 1% indicates that a LEFT SHIFT is Present. Performed By: #### L 500.2500, L100.0100 ####[facility] [address] [place], [address] Lymphocytes/100 WBC (Bld) 35.1 % Normal 19-41 [facility] Comment on above: Performed By: #### L 500.2500, L100.0100 ####[facility] [address] [place], [address] MCH (RBC) [Entitic mass] 30.6 pg Normal 27.0-32.0 [facility] Comment on above: Performed By: #### L 500.2500, L100.0100 ####[facility] [address] [place], [address] MCHC (RBC) [Mass/Vol] 33.2 g/dL Normal 32-36 [facility] Comment on above: Performed By: #### L 500.2500, L100.0100 ####[facility] [address] [place], [address] MCV (RBC) [Entitic vol] 92.1 fL Normal 81-99 [facility] Comment on above: Performed By: #### L 500.2500, L100.0100 ####[facility] [address] [place], [address] Monocytes/100 WBC (Bld) 7.4 % Normal 0-10 [facility] Comment on above: Performed By: #### L 500.2500, L100.0100 ####[facility] [address] [place], [address] Neutrophils/100 WBC (Bld) 51.6 % Normal 47-70 [facility] Comment on above: Performed By: #### L 500.2500, L100.0100 ####[facility] [address] [place], [address] Nucleated RBC (Bld) [#/Vol] 0 10*3/uL Normal 0-5 [facility] Comment on above: Performed By: #### L 500.2500, L100.0100 ####[facility] [address] [place], [address] Platelet mean volume (Bld) [Entitic vol] 10.9 fL Normal 6.2-12.0 [facility] Comment on above: Performed By: #### L 500.2500, L100.0100 ####[facility] [address] [place], [address] Platelets (Bld) [#/Vol] 336 10*3/uL Normal 150-450 [facility] Comment on above: Performed By: #### L 500.2500, L100.0100 ####[facility] [address] [place], [address] RBC (Bld) [#/Vol] 4.31 10*6/uL Normal 4.2-5.4 [facility] Comment on above: Performed By: #### L 500.2500, L100.0100 ####[facility] [address] [place], [address] RDW SD 43.5 fl Normal 35.1-43.9 [facility] Comment on above: Performed By: #### L 500.2500, L100.0100 ####[facility] [address] [place], [address] WBC (Bld) [#/Vol] 7.7 10*3/uL Normal 4.4-11.0 [facility] Comment on above: Performed By: #### L 500.2500, L100.0100 ####[facility] [address] [place], [address] Carbon dioxide measurementOr dered By: Corey Tristan on 06-27-2024 CO2 [Moles/Vol] 28.0 mmol/L 21.0-32.0 [facility] Chloride measurementOrdered By: Coreyai Tristan on 06-27-2024 Chloride [Moles/Vol] 106 mmol/L 98-107 [facility] Emergency Department Summary on 06-27-2024 Emergency Department Summary [facility] Medical Records Department [address] [place] [address] Emergency Department Summary 06/27/24 MR#: [id number] Acct: [id number] Name: FERNANDA HERNANDEZ Rep #: [id number] : 1980 44 From: Corey Tristan MD PCP: Bettina Fuentes, 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 Normal [facility] Eosinophil percentageOrdered By: Coreyai Tristan on 06-27-2024 Eosinophils/100 WBC (Bld) 4.8 % 0-5 [facility] Epithelial cells.squamous LM Ql (Urine sed)Ordered By: Corey Tristan on 06-27-2024 Epithelial cells.squamous LM.HPF (Urine sed) [#/Area] 0 /[HPF] 5-10 [facility] Erythrocyte distribution wid th ratioOrdered By: Coreyai Tristan on 06-27-2024 Erythrocyte distribution width (RBC) [Ratio] 12.9 % 11.6-14.6 [facility] Erythrocyte distribution wid th standard deviationOrdered By: Coreyai Tristan on 06-27-2024 Erythrocyte distribution width (RBC) [Entitic vol] 43.5 fL 35.1-43.9 [facility] Erythrocyte distribution width (RBC) [Ratio] 43.5 fl 35.1-43.9 [facility] Estimated glomerular filtrat ion rate (GFR) AmericanOrdered By: Corey Tristan on 06-27-2024 Estimated GFR (MDRD) Amer 109 mL/min >60 [facility] Comment on above: GFR Calc Estimation of creatinine anh aranceOrdered By: Coreyai Tristan on 06-27-2024 Estimated Creatinine Clearance Calc 113.65 ml/min [facility] Glomerular filtration rate ( GFR) estimationOrdered By: Coreyai Tristan on 06-27-2024 Estimated GFR (MDRD) Non-Af Amer 90 mL/min >60 [facility] Comment on above: Non- GFR Calc GFR/1.73 sq M.predicted among non-blacks MDRD (S/P/Bld) [Vol rate/Area] 90 mL/min/{1.73_m2} >60 [facility] Comment on above: Non- GFR Calc Glucose Ql (U)Ordered By: Vern Tristan on 06-27-2024 Urine Glucose (UA) Normal mg/dl Normal [facility] Glucose measurementOrdered B y: Corey Tristan on 06-27-2024 Glucose [Mass/Vol] 78 mg/dL 74-106 [facility] Hematocrit Auto (Bld) [Volum e fraction]Ordered By: Corey Tristan on 06-27-2024 Hematocrit (Bld) [Volume fraction] 39.7 % 37-47 [facility] Hemoglobin measurementOrdere d By: Corey Tristan on 06-27-2024 Hemoglobin (Bld) [Mass/Vol] 13.2 g/dL 12.0-15.0 [facility] Immature granulocytes/100 WB C Auto (Bld)Ordered By: Corey Tristan on 06-27-2024 Immature granulocytes/100 WBC (Bld) 0.300 % 0.0-0.9 [facility] Comment on above: IG% - Immature Granu locytes (promyelocytes, myelocytes and metamyelocytes) > 1% indicates that a LEFT SHIFT is Present. Ketones Test strip Ql (U)Ord ered By: Corey Tristan on 06-27-2024 Ketones Ql (U) Negative Negative [facility] Lymphocytes Auto (Unsp spec) [#/Vol]Ordered By: Corey Tristan on 06-27-2024 Lymphocytes (Bld) [#/Vol] 2.72 10*3/uL 0.83-4.51 [facility] Lymphocytes/100 WBC Auto (Un sp spec)Ordered By: Corey Tristan on 06-27-2024 Lymphocytes/100 WBC (Bld) 35.1 % 19-41 [facility] MCV (mean corpuscular volume ) determinationOrdered By: Corey Tristan on 06-27-2024 MCV (RBC) [Entitic vol] 92.1 fL 81-99 [facility] Mean corpuscular hemoglobin (MCH) determinationOrdered By: Coreyai Tristan on 06-27-2024 MCH (RBC) [Entitic mass] 30.6 pg 27.0-32.0 [facility] Mean corpuscular hemoglobin concentration (MCHC) determinationOrdered By: Coreyai Tristan on 06-27-2024 MCHC (RBC) [Mass/Vol] 33.2 g/dL 32-36 [facility] Mean platelet volume determi nationOrdered By: Corey Tristan on 06-27-2024 Platelet mean volume (Bld) [Entitic vol] 10.9 fL 6.2-12.0 [facility] Microscopic analysis of urin e for red blood cells (RBC)Ordered By: Corey Tristan on 06-27-2024 Microscopic analysis of urine for red blood cells (RBC) 0 SEEN /hpf 0-5 [facility] Urine RBC 0 SEEN /hpf 0-5 [facility] Monocyte percentageOrdered B y: Corey Tristan on 06-27-2024 Monocytes/100 WBC (Bld) 7.4 % 0-10 [facility] Mucus LM Ql (Urine sed)Order ed By: Corey Tristan on 06-27-2024 Mucus Ql (Urine sed) 0 SEEN /hpf [facility] Neutrophil percentageOrdered By: Corey Tristan on 06-27-2024 Neutrophils/100 WBC (Bld) 51.6 % 47-70 [facility] Nitrite Test strip Ql (U)Ord ered By: Corey Tristan on 06-27-2024 Nitrite Ql (U) Negative Negative [facility] Nucleated red blood cell per centageOrdered By: Corey Tristan on 06-27-2024 Nucleated RBC/100 WBC (Bld) [Ratio] 0 % 0-5 [facility] Platelet countOrdered By: Vern Tristan on 06-27-2024 Platelets (Bld) [#/Vol] 336 10*3/uL 150-450 [facility] Potassium measurementOrdered By: Corey Tristan on 06-27-2024 Potassium [Moles/Vol] 3.3 mmol/L Low 3.5-5.1 [facility] ,Serum,hCG Quali.on 06-27-2024 HCG, SERUM QUAL Negative Normal [facility] Comment on above: Performed By: #### L 700.6800 ####[facility] [address], [place], [id number] Protein Test strip Ql (U)Ord ered By: Corey Tristan on 06-27-2024 Protein Ql (U) Negative Negative [facility] RBC Auto (Bld) [#/Vol]Ordere d By: Corey Tristan on 06-27-2024 RBC (Bld) [#/Vol] 4.31 10*6/uL 4.2-5.4 [facility] Serum anion gap measurementO rdered By: Corey Tristan on 06-27-2024 Anion gap [Moles/Vol] 4 mmol/L Low 5-15 [facility] Serum beta-hCG test, qualita tiveOrdered By: Corey Tristan on 06-27-2024 Beta HCG ( test) Ql Negative [facility] Serum or plasma calcium ta urement (mass/volume)Ordered By: Corey Tristan on 06-27-2024 Calcium [Mass/Vol] 8.2 mg/dL Low 8.5-10.1 [facility] Serum or plasma creatinine m easurement (mass/volume)Ordered By: Corey Tristan on 02-03-2025 Creatinine [Mass/Vol] 0.74 mg/dL 0.55-1.02 [facility] Comment on above: The validity of the calculated GFR & GFRAA in patients over 70 years has not been determined. Clinical correlation is essential. Serum or plasma urea nitroge n measurement (mass/volume)Ordered By: Corey Tristan on 06-27-2024 Urea nitrogen [Mass/Vol] 11 mg/dL 7-18 [facility] Sodium levelOrdered By: Corey Tristan on 06-27-2024 Sodium [Moles/Vol] 138 mmol/L 136-145 [facility] Squamous epithelial cells de tection in urine sediment by light microscopyOrdered By: Coreyai Tristan on 06-27-2024 Epithelial cells.squamous LM Ql (Urine sed) 0 SEEN /hpf - [facility] Urinalysis, Completeon 06-27 BACTERIA 0 SEEN Normal None Seen [facility] Comment on above: Order Comment: VANIA CTOR TO SPECIFY Performed By: #### L 400.0001 ####[facility] [address] [place] [address] EPI,SQUAMOUS 0 SEEN Normal - [facility] Comment on above: Order Comment: VANIA CTOR TO SPECIFY Performed By: #### L 400.0001 ####[facility] [address] [place], [address] Mucus Ql (Urine sed) 0 SEEN Normal [facility] Comment on above: Order Comment: VANIA CTOR TO SPECIFY Performed By: #### L 400.0001 ####[facility] [address] [facility] [address] RBC 0 SEEN Normal 0-5 [facility] Comment on above: Order Comment: VANIA CTOR TO SPECIFY Performed By: #### L 400.0001 ####[facility] [address] [place], [address] WBC 0 SEEN Normal 0-5 [facility] Comment on above: Order Comment: VANIA CTOR TO SPECIFY Performed By: #### L 400.0001 ####[facility] [address] [place], [address] Urine blood detectionOrdered By: Corey Tristan on 06-27-2024 Urine Occult Blood Negative Negative [facility] Urine clarityOrdered By: Corey Tristan on 06-27-2024 Clarity (U) Clear Clear [facility] Urine color determinationOrd ered By: Corey Tristan on 06-27-2024 Color (U) Yellow Yellow [facility] Urine glucose detectionOrder ed By: Corey Tristan on 06-27-2024 Glucose Ql (U) Normal mg/dl Normal [facility] Urine leukocyte esterase det ection by dipstickOrdered By: Corey Tristan on 06-27-2024 Leukocyte esterase Test strip Ql (U) 100 /ul High Negative [facility] Urine pHOrdered By: Corey gold on 06-27-2024 pH (U) 6.5 [pH] 5.0 - 8.0 [facility] Urine sediment bacteria coun t by microscopy (number/high power field)Ordered By: Corey Tristan on 06-27-2024 Bacteria LM.HPF (Urine sed) [#/Area] 0 /[HPF] None Seen [facility] Urine specific gravity measu rementOrdered By: Coreyai Tristan on 06-27-2024 Specific gravity (U) [Rel density] 1.010 1.002-1.03 0 [facility] Urine urobilinogen measureme ntOrdered By: Corey Tristan on 06-27-2024 Urobilinogen Ql (U) Normal mg/dl Normal [facility] Urobilinogen Ql (U)Ordered B y: Corey Tristan on 06-27-2024 Urine Urobilinogen Normal mg/dl Normal [facility] White blood cell (WBC) count Ordered By: Corey Tristan on 06-27-2024 WBC (Bld) [#/Vol] 7.7 10*3/uL 4.4-11.0 [facility] White blood cell countOrdere d By: Corey Tristan on 06-27-2024 Urine WBC 0 SEEN /hpf 0-5 [facility] White blood cell count 0 SEEN /hpf 0-[address] [facility] Bacteria Ur Culton 4 Bacteria identified Cx Nom (U) ORGANISM ID: 1 10,000 -<50,000 CFU/ml Normal urogenital caitlin Normal [facility] Comment on above: Performed By: #### 6 30-4 ####[facility] LABCLIA [id number] [facility] [id number] [id number] [place] CNOVon 05-03-2024 CNOV Office Visit (FAMPWS ) FERNANDA HERNANDEZ ([id number]) 1980 F Date Time Provider Department 05/03/24 3:20 PM [facility] During your visit today, we recorded the following information about you: Temperature Pulse Respiration Blood pressure 97.2 degrees 71/minute 18/minute 132/82 Weight 110 kg Bettina Fuentes, FACILITIES ADMINISTRATOR.SCIENCE PROFESSOR 05/03/2024 4:22 PM Addendum This is a 44 year old female who presents today with: No chief complaint on file. HISTORY OF PRESENT ILLNESS: Frenanda Hernandez is a 44 year old female. [...] or chills. Right now 09/01- last evening 10 PAST MEDICAL HISTORY: PAST MEDICAL HISTORY Diagnosis [...] forearm inner (more content not included)... Normal [facility] UA DIP, URINE (POC)on 2023 BILIRUBIN UA (POCT) Negative Negative [facility] CLARITY UA (POCT) Clear [facility] COLOR UA (POCT) Yellow [facility] GLUCOSE UA (POCT) Negative Negative mg/dL [facility] Hemoglobin Ql (U) Negative Negative [facility] Interpretation and review of laboratory results Abnormal [facility] KETONE UA (POCT) Negative Negative mg/dL [facility] LEUKOCYTES UA (POCT) Trace Abnormal Negative [facility] NITRITE UA (POCT) Negative Negative [facility] PH UA (POCT) 6.0 4.5 - 8.0 [facility] Protein Ql (U) Negative Negative mg/dL [facility] SPECIFIC GRAVITY UA (POCT) 1.025 1.005 - 1.030 [facility] UROBILINOGEN UA (POCT) 0.2 Caprice l E.U./dL [facility] Location: [place], [address] [facility], [place], [place], [address] [place] [address] POINT OF CARE [facility] Danielle 04-28-2024 CNPN Telephone (UCTR) DAVIDFERNANDA ([id number]) 1980 F Date Time Provider Department 04/28/24 GERONIMO ESTRADA [facility] During your visit today, we recorded the following information about you: Geronimo Estrada MD 04/28/2024 1:58 PM Signed Urine culture did not look like a clean sample so it did not show a clear infection. Follow up with PCP, urology, or APPLIANCE INSTALLER if symptoms persist. Usha Zhong LPN 04/28/2024 [...] Status:Closed by USHA ZHONG on 04/29/24 Normal [facility] Bacteria Ur Culton Bacteria identified Cx Nom (U) CULTURE, URINE: Mixed microbiota, including predominantly: ORGANISM ID: 1 50,000-<100,000 CFU/ml Lactobacillus species Normal urogenital caitlin No further workup Normal [facility] Comment on above: Performed By: #### 6 30-4 ####[facility] LABCLIA [id number] [address] STATES OF [facility] CNOVon 04-27-2024 CNOV Office Visit (UCWSTR ) FERNANDA HERNANDEZ ([id number]) 1980 F Date Time Provider Department 04/27/24 8:30 AM GERONIMO ESTRADA [facility] During your visit today, we recorded the following information about you: Temperature Pulse Respiration Blood pressure 97.6 degrees 80/minute 18/minute 140/86 Weight 111.5 kg Geronimo Estrada MD 04/27/2024 9:05 AM Signed Patient [...] Send antibiotic if there is significant growth. Geronimo Estrada MD Allergies As of Date: 04/27/2024 [...] Diagnosis:Urinary frequency [R35.0] Order(s):UA DIP, URINE (POC) [7641676] Order #: [id number]. #:[id number] -LAB URINE CULTURE [SQURCUL] Order #: [id number]. #:[id number] fluconazole (DIFLUCAN) 150 mg tabletTake 1 tablet [...] cholecalciferol, vitamin (more content not included)... Normal [facility] Office Visit Reporton 2023 Office Visit Report [facility] [address] [place] [address] OFFICE VISIT Date of Service: 04/11/24 MR#: [id number] Acct: [id number] Patient: FERNANDA HERNANDEZ Rep #: [id number] : 1980 Provider: OG Nuno Age/Sex: 44/F Location: [facility] Status: Signed Employer Purchased Covid Test Note: Patient here today for Covid Testing, requested by their Employer. 04/27/24 1344 Date Eddie FOLEY Cosigner Signature: Date (if applicable) CC: Normal [facility] UA DIP, URINE (POC)on 2023 BILIRUBIN UA (POCT) Negative Negative [facility] CLARITY UA (POCT) Slightly Cloudy Cl [facility] COLOR UA (POCT) Dark yellow [facility] GLUCOSE UA (POCT) Negative Negative mg/dL [facility] Hemoglobin Ql (U) Negative Negative [facility] Interpretation and review of laboratory results Abnormal [facility] KETONE UA (POCT) Negative Negative mg/dL [facility] LEUKOCYTES UA (POCT) Small Abnormal Negative [facility] NITRITE UA (POCT) Negative Negative [facility] PH UA (POCT) 6.5 4.5 - 8.0 [facility] Protein Ql (U) Negative Negative mg/dL [facility] SPECIFIC GRAVITY UA (POCT) 1.025 1.005 - 1.030 [facility] UROBILINOGEN UA (POCT) 1.0 Caprice l E.U./dL [facility] Location:[facility], [address] [facility], [place], [place], [address] [place] [address] POINT OF CARE [facility] CNOVon 04-16-2024 CNOV Office Visit (UCWSTR ) FERNANDA HERNANDEZ ([id number]) 1980 F Date Time Provider Department 04/16/24 8:15 AM EDNA COURTNEY WSTR During your visit today, we recorded the following information about you: Temperature Pulse Respiration Blood pressure 97.8 degrees 66/minute 18/minute 144/88 Weight 108.2 kg Edna Courtney APRN.CNP 04/16/2024 8:39 AM Signed This note was created using Netsketriter. Subjective Fernanda Hernandez is a 44 year [...] PCP. - XR CHEST 2V FRONTAL/LAT Edna PETR Courtney.SCIENCE PROFESSOR Allergies As of Date: 04/16/2024 Noted Allergy [...] Date Reviewed: 04/16/2024 Reviewed by: Edna Courtney APRN.SCIENCE PROFESSOR - Fully Assessed Reason for Visit: Flu Like Symptoms [267] Cmt: PEREZ, bodyaches, fatigue and SOB x 6 days Primary Visit Diagnosis:Other fatigue [R53.83] Order(s):XR CHEST 2V FRONTAL/LAT [[id number]] Order #: [id number] FUTURE Prescriptions as of 04/16/2024 - methylPREDNISolone [...] [O36.8190] 12/24 (more content not included)... Normal [facility] XR CHEST 2V FRONTAL/LATon XR CHEST 2V [...] tissues: Unremarkable. IMPRESSION: No acute radiographic abnormality. Safety Lamp Keeper: JOHNATHAN Transcribe Date/Time: Apr 16 2024 8:33A Dictated by : PASCUAL MCCANN MD This examination was interpreted and the report reviewed and electronically signed by: PASCUAL MCCANN MD on Apr 16 2024 8:33AM EST [id number] Normal [facility] XR Chest PA and Lateralon IMPRESSION: No acute radiographic abnormality. Safety Lamp Keeper: [employer] Transcribe Date/Time: Apr 16 2024 8:33A Dictated [...] tissues: Unremarkable. DIVISION OF RADIOLOGY Provider, Hermilo Gonzalez [place] - 04/16/2024 * * *Final Report* * [...] Unremarkable. IMPRESSION IMPRESSION: No acute radiographic abnormality. Safety Lamp Keeper: PSCB Transcribe Date/Time: Apr 16 2024 8:33A Dictated by : PASCUAL MCCANN MD This examination was interpreted and the report reviewed and electronically signed by: PASCUAL MCCANN MD on Apr 16 2024 8:33AM EST [facility] Radiology Study observation (narrative) [facility] XR Chest PA and LateralOrder ed By: Ccf Provider on 04-16-2024 [facility] CNOVon 04-12-2024 CNOV Office Visit (UCWSTR ) FERNANDA HERNANDEZ ([id number]) 1980 F Date Time Provider Department 04/12/24 12:45 PM [facility] During your visit today, we recorded the following information about you: Temperature Pulse Respiration Blood pressure 98.4 degrees 76/minute 16/minute 144/80 Weight 110.6 kg Bernadette Winters PA 04/12/2024 12:57 PM Signed This note was created using [employer]mont. Subjective Fernanda Hernandez is a 44 year [...] pressure and pain. She has been taking ftly-hzj-mzbdwms cough and cold medications as well without [...] and nurs (more content not included)... Normal [facility] Urgent Care Visit Reporton 1 06-11-2023 Urgent Care Visit Report [facility] [address], [address] [place] [address] OFFICE VISIT Date of Service: 04/11/24 MR#: [id number] Acct: [id number] Name: FERNANDA HERNANDEZ Rep #: [id number] : 1980 Provider: OG Nuno Age/Sex: 44/F Location: [facility] Status: Signed Intake Vital Signs 03/25/24 15:41 04/11/24 07:23 Height 5 ft 3 in BP 132/84 H Blood Pressure Location Lt brachial Position Sitting Respiration 16 Pulse 82 Pulse Source NIBP Temp 99.2 F H Temp Source Oral Pulse Oximetry (%) 98 Oxygen Delivery Method room air Intake Visit Reasons: ST/PEREZ/BILAT EAR/BA/CHEST CONGESTION Chief Complaint: ST, PEREZ, ear pain, congest, fatigue Slide Fastener Chain Assembler Required: No Is patient in pain?: No [...] Requesting Cepheid screening as she is a [facility] employee. No jwlm-qzr-lhltyce taken to assist. No other associated symptoms and no other alleviating/aggravating factors. ROS Const Constitutional: No other (As above) Exam Const General: cooperative, healthy appearing and no acute distress Orientation: alert, awake and oriented x3 HENNE Head: normal to inspection Ears: hearing grossly [...] Appearance: tena (more content not included)... Normal [facility] ANES POSTPROC EVALon 024 ANES POSTPROC EVAL HNO ID: [id number] Author: RENETTA GOINS MD Service: Anesthesiology Author Type: Physician Type: Anesthesia Postprocedure Evaluation Filed: 02/04/2024 09:56 Note Text: POST ANESTHESIA EVALUATION NOTE : 1980 Procedure Summary Date: 02/04/24 Room / Location: SURGERY Anesthesia Start: 914 Anesthesia Stop: Procedure: COLONOSCOPY DIAGNOSTIC Diagnosis: Diarrhea, unspecified type Occult blood positive stool Diarrhea, unspecified type Occult blood positive stool Scheduled Providers: Antonietta Gonzalez MD; Renetta Goins MD Responsible Provider: Renetta Goins MD Anesthesia Type: MAC ASA Status: 3 Anesthesia Type: MAC Last Vitals Vitals Value Taken Time BP 95/84 02/04/24 0955 Temp 98.8 02/04/24 0955 Pulse 68 02/04/24 0955 Resp 18 02/04/24 09 SpO2 100 02/04/24 0955 Post Anesthesia Patient [...] of care. Anesthesia Observations No Documentation SIGNATURE: Renetta Goins MD PATIENT NAME: Fernanda Hernandez DATE: February 04, 2024 TIME: 9:55 AM CSN: [id number] [facility] ANES PRE-OPon 02-04-2024 ANES PRE-OP HNO ID: [id number] Author: RENETTA GOINS MD Service: Anesthesiology Author Type: Physician Type: Anesthesia Preprocedure Evaluation Filed: 02/04/2024 09:12 Note Text: ANESTHESIOLOGY DAY OF SURGERY NOTE : 1980 Procedure Information Date/Time: 02/04/24914 Scheduled providers: Antonietta Gonzalez MD; Renetta Goins MD Procedure: COLONOSCOPY DIAGNOSTIC Location: LD [...] and consent discussed: yes. Patient / Responsible Green Party agrees to proceed: yes Patient / [...] obtained within 48 hours of Surgery/Procedure. SIGNATURE: Renetta Goins MD PATIENT NAME: Fernanda Hernandez DATE: February 04, 2024 TIME: 9:11 AM CSN: [id number] Normal [facility] BRIEF OP NOTon 02-04-2024 BRIEF OP NOT HNO ID: [id number] Author: ANTONIETTA GONZALEZ MD Service: General Surgery Author Type: Physician Type: Brief Op Note Filed: 02/04/2024 09:50 Note Text: BRIEF OPERATIVE NOTE SURGERY DATE: 02/04/2024 Incision/Procedure Start Time: 9:27 cecal time: 9:35 Incision Close/Procedure End Time: 9:47 Surgeon(s)/Proceduralist(s) and Employee Counselor(s): kuldip Procedures: Colonoscopy with random mucosal biopsies [...] February 04, 2024 TIME: 9:49 AM Csn: [id number] Normal [facility] HISTORY PHYSICALon HISTORY PHYSICAL HNO ID: [id number] Author: ANTONIETTA GONZALEZ MD Service: General Surgery Author Type: Physician Type: H&P Filed: 02/04/2024 08:09 Note Text: HISTORY AND PHYSICAL Fernanda Hernandez : 1980 REFERRING PHYSICIAN: Faith Deluna [address] [facility] [address] CHIEF COMPLAINT: Patient presents with: Colon consult [...] prior endoscopy. Fernanda underwent upper endoscopy at [facility] with Dr. Gonzalez on 01/2020 for preop [...] LAPAROSCOPY SURG CHOLECYSTECTOMY 2014: REDUCTION OF LARGE BENJI (more content not included)... Normal [facility] OPERATIVE NOon 02-04-2024 OPERATIVE NO HNO ID: [id number] Author: ANTONIETTA GONZALEZ MD Service: General Surgery Author Type: Physician Type: Operative Report Filed: 02/05/2024 08:09 Note Text: [facility] - Operative Report - FERNANDA Medrano : 1980 AGE: 43. SEX: F PATIENT TYPE: O HOSP SVC: TANYA LOCATION: [facility] ATTENDING PHYSICIAN: Antonietat Gonzalez MD CSN NUMBER: [id number] DATE OF SURGERY/PROCEDURE: 02/04/2024 INCISION/PROCEDURE START TIME: 926 INCISION CLOSE/PROCEDURE END TIME: 946 PREOPERATIVE DIAGNOSIS: diarrhea POSTOPERATIVE DIAGNOSIS: diarrhea, hemorrhoids SURGEON: Antonietta Gonzalez MD COMPOSITION INSTRUCTOR: No Additional Staff SURGERY/PROCEDURE: Colonoscopy with random mucosal biopsies. ANESTHESIA: Monitored anesthesia care. LOCATION: [facility] INDICATIONS: Fernanda Hernandez is a 43-year-old female, [...] throughout colon. COMPLICATIONS: None. Antonietta Gonzalez MD LW:[id number] /[id number] Normal [facility] SURGICAL PATHOLOGYon 024 CASE REPORT Normal [facility] Comment on above: Order Comment: Speci men Type: TISSUE SPECIMEN Ordering Facility: [facility] Address: [address] [place] [address] Result Comment: Surg ica Pathology Report Case: [id number] Authorizing Provider: Antonietta Gonzalez MD Collected: 02/04/2024 09:36 AM Ordering Location: SURGERY Received: 02/04/2024 02:30 PM Pathologist: Roc Pizarro MD Specimen: Colon, Biopsy, Random colon biopsies Performed By: #### S #### [facility] CLIA [id number] [address] [place] [address] CLINICAL HISTORY diarrhea Normal [facility] Comment on above: Order Comment: Speci men Type: TISSUE SPECIMEN Ordering Facility: [facility] Address: [address] [place] [address] Performed By: #### S #### [facility] CLIA [id number] [address] [place] [address] [place] [facility] FINAL DIAGNOSIS Normal [facility] Comment on above: Order Comment: Speci men Type: TISSUE SPECIMEN Ordering Facility: [facility] Address: [address] [place] [address] Result Comment: Natalia fish, random biopsies: - Benign colonic mucosa with focal features suggesting mild melanosis coli. Performed By: #### S #### [facility] CLIA [id number] [address] [place] [address] FINAL PERFORMING LAB Normal [facility] Comment on above: Order Comment: Speci men Type: TISSUE SPECIMEN Ordering Facility: [facility] Address: [address] [place] [address] Result Comment: Diag nostic interpretation performed at [facility], [address] [place] [address] CLIA# [id number] Ink Printer: Roc Pizarro M.D. Performed By: #### S #### [facility] CLIA [id number] [address] [place] [address] GROSS DESCRIPTION Normal [facility] Comment on above: Order Comment: Speci men Type: TISSUE SPECIMEN Ordering Facility: [facility] Address: [address] [place] [address] Result Comment: Natalia fish, Biopsy Received in formalin and designated random colon biopsies are multiple fragments of abebe tissue with an aggregate measurement of 1.0 x 0.8 x 0.2 cm. The specimen is entirely submitted in cassette A1. KM February 05, 2024 12:10 PM Gross examination performed at [facility], [address] [place] [address] CLIA# [id number] Performed By: #### S #### [facility] CLIA [id number] [address] [place] [address] NURSING PROGon 02-02-2024 NURSING PROG HNO ID: [id number] Author: SON MALCOLM, FREDRICK Service: ? Author Type: Registered Nurse Type: Nursing Progress Note Filed: 02/02/2024 10:57 Note Text: Pre-Procedure Checklist Fernanda Hernandez [phone] (home) 1980 43 year old There is [...] Problems with Anesthesia (Self or Family?) No Value Stream Manager: no Saw lsat instructor in the last 6 months? No Recent EKG/Cardiac Testing: No Chest pain in the last 6 months (<6 months cardiac clearance needed): No History of: Heart Attack/Stroke/Blood Clot?: no Shortness of Breath: No Asthma: No Inhalers: No Any Outstanding Consults?: No If yes, list: Additional Notes: Normal [facility] XR Abdomen Supine and Uprigh ton 12-18-2023 IMPRESSION: Possible constipation Safety Lamp Keeper: JOHNATHAN Transcribe Date/Time: Dec 18 2023 7:02P Dictated by : CHI CROOKS MD This examination was interpreted and the report reviewed and electronically signed by: CHI CROOKS MD on Dec 18 2023 7:03PM [facility] DIVISION OF RADIOLOGY * * *Final Report* [...] grossly unremarkable. DIVISION OF RADIOLOGY Provider, Hermilo Prince - 12/18/2023 * * *Final Report* * [...] appear grossly unremarkable. IMPRESSION IMPRESSION: Possible constipation Safety Lamp Keeper: JOHNATHAN Transcribe Date/Time: Dec 18 2023 7:02P Dictated by : CHI CROOKS MD This examination was interpreted and the report reviewed and electronically signed by: CHI CROOKS MD on Dec 18 2023 7:03PM EST [facility] XR Abdomen Supine and Uprigh tOrdered By: Ccf Provider on 12-18-2023 [facility] XR Abdomen Supine and Uprigh ton 12-16-2023 Radiology Study observation (narrative) [facility] CBC W Auto Differential pane l (Bld)on 11-13-2023 Basophils (Bld) [#/Vol] 0.05 10*3/uL [facility] Basophils/100 WBC (Bld) 0.7 % [facility] Differential cell count method Nom (Bld) Auto [facility] Eosinophils (Bld) [#/Vol] 0.31 10*3/uL [facility] Eosinophils/100 WBC (Bld) 4.3 % [facility] Erythrocyte distribution width (RBC) [Ratio] 12.8 % 11.5 - 15.0 % [facility] Hematocrit (Bld) [Volume fraction] 40.9 % 36.0 - 46.0 % [facility] Hemoglobin (Bld) [Mass/Vol] 13.5 g/dL 11.5 - 15.5 g/dL [facility] Immature granulocytes (Bld) [#/Vol] [facility] Immature granulocytes/100 WBC (Bld) 0.3 % [facility] Lymphocytes (Bld) [#/Vol] 2.43 10*3/uL [facility] Lymphocytes/100 WBC (Bld) 33.6 % [facility] MCH (RBC) [Entitic mass] 30.0 pg 26.0 - 34.0 pg [facility] MCHC (RBC) [Mass/Vol] 33.0 g/dL 30.5 - 36.0 g/dL [facility] MCV (RBC) [Entitic vol] 90.9 fL 80.0 - 100.0 fL [facility] Monocytes (Bld) [#/Vol] 0.40 10*3/uL [facility] Monocytes/100 WBC (Bld) 5.5 % [facility] Neutrophils (Bld) [#/Vol] 4.02 10*3/uL [facility] Neutrophils/100 WBC (Bld) 55.6 % [facility] Nucleated RBC (Bld) [#/Vol] NINF [facility] Nucleated RBC/100 WBC (Bld) [Ratio] 0.0 % /100 WBC [facility] Platelet mean volume (Bld) [Entitic vol] 11.1 fL 9.0 - 12.7 fL [facility] Platelets (Bld) [#/Vol] 315 10*3/uL [facility] RBC (Bld) [#/Vol] 4.50 10*6/uL 3.90 - 5.20 m/uL [facility] WBC (Bld) [#/Vol] 7.23 10*3/uL [facility] RF Gastrointestinal tract up per Views W barium contrast Herbie 08-28-2023 [facility] XR Cervical spine AP and Lat eral and obliqueon 08-25-2023 IMPRESSION: STRAIGHTENING OF THE NORMAL LORDOSIS. OTHERWISE NORMAL CERVICAL SPINE Safety Lamp Keeper: JOHNATHAN Transcribe Date/Time: Aug 25 2023 4:38P Dictated by : GEOVANNY NICOLE MD This examination was interpreted and the report reviewed and electronically signed by: GEOVANNY NICOLE MD on Aug 25 2023 4:39PM [facility] DIVISION OF RADIOLOGY * * *Final Report* [...] significant foraminal encroachment DIVISION OF RADIOLOGY Provider, [facility] - 08/25/2023 * * *Final Report* [...] THE NORMAL LORDOSIS. OTHERWISE NORMAL CERVICAL SPINE Safety Lamp Keeper[facility] Transcribe Date/Time: Aug 25 2023 4:38P Dictated by : GEOVANNY NICOLE MD This examination was interpreted and the report reviewed and electronically signed by: GEOVANNY NICOLE MD on Aug 25 2023 4:39PM EST [facility] XR Cervical spine AP and Lat eral and obliqueOrdered By: Ccf Provider on 08-25-2023 [facility] XR Lumbar spine 3 Viewson IMPRESSION: 1. Mild lumbar spondylosis. Safety Lamp Keeper: [facility] Transcribe Date/Time: Aug 25 2023 5:03P Dictated by : EUGENIO GRANDE MD This examination was interpreted and the report reviewed and electronically signed by: EUGENIO GRANDE MD on Aug 25 2023 5:04PM [facility] DIVISION OF RADIOLOGY * * *Final Report* [...] left upper quadrant DIVISION OF RADIOLOGY Provider, Hermilo Prince - 08/25/2023 * * *Final Report* * [...] quadrant IMPRESSION IMPRESSION: 1. Mild lumbar spondylosis. Safety Lamp Keeper: JOHNATHAN Transcribe Date/Time: Aug 25 2023 5:03P Dictated by : EUGENIO GRANDE MD This examination was interpreted and the report reviewed and electronically signed by: EUGENIO GRANDE MD on Aug 25 2023 5:04PM EST [facility] No Panel Informationon 08-20 Radiology Study observation (narrative) [facility] MG Breast Screeningon 2023 [facility] XR KNEE GENERAL 4V AP BOTH/P A BOTH/LAT/MERC LEFTon 11-03-2022 [facility] XR Knee - left 4 Viewson IMPRESSION: Findings are suggestive of mild degenerative changes in the left knee. Safety Lamp Keeper: JOHNATHAN Transcribe Date/Time: Nov 03 2022 5:08P Dictated by : PASCUAL MCCANN MD This examination was interpreted and the report reviewed and electronically signed by: PASCUAL MCCANN MD on Nov 03 2022 5:09PM [facility] DIVISION OF RADIOLOGY * * *Final Report* [...] soft tissue swelling. DIVISION OF RADIOLOGY Provider, [facility] - 11/03/2022 * * *Final Report* * [...] mild degenerative changes in the left knee. Safety Lamp Keeper: JOHNATHAN Transcribe Date/Time: Nov 03 2022 5:08P Dictated by : PASCUAL MCCANN MD This examination was interpreted and the report reviewed and electronically signed by: PASCUAL MCCANN MD on Nov 03 2022 5:09PM EST [facility] Radiology Study observation (narrative) [facility] XR Knee - left 4 ViewsOrdere d By: [facility] Provider on 11-03-2022 [facility] Absolute lymphocyte countOrd ered By: Marcelina Vizcarra on 09-13-2022 Lymphocytes Auto (Unsp spec) [#/Vol] 2.91 10*3/uL 0.83-4.51 [facility] Basophil percentageOrdered B y: Marcelina Vizcarra on 09-13-2022 Basophils/100 WBC (Bld) 0.6 % 0-1 [facility] Chloride [Moles/Vol] 109 mmol/L 98-107 [facility] Eosinophils/100 WBC (Bld) 3.6 % 0-5 [facility] Glucose [Mass/Vol] 75 mg/dL 74-106 [facility] Neutrophils (Bld) [#/Vol] 4.2 10*3/uL 2.0-7.7 [facility] Neutrophils/100 WBC (Bld) 51.8 % 47-70 [facility] Potassium [Moles/Vol] 3.4 mmol/L 3.5-5.1 [facility] Sodium [Moles/Vol] 140 mmol/L 136-145 [facility] WBC (Bld) [#/Vol] 8.1 10*3/uL 4.4-11.0 [facility] Blood erythrocytes count (nu mber/volume)Ordered By: Marcelina Vizcarra on 09-13-2022 RBC (Bld) [#/Vol] 4.12 10*6/uL 4.2-5.4 [facility] Blood hemoglobin measurement (mass/volume)Ordered By: Marcelina Vizcarra on 09-13-2022 Hemoglobin (Bld) [Mass/Vol] 12.4 g/dL 12.0-15.0 [facility] Blood lymphocytes/100 leukoc ytesOrdered By: Marcelina Vizcarra on 09-13-2022 Lymphocytes/100 WBC (Bld) 36.1 % 19-41 [facility] Blood monocytes/100 leukocyt esOrdered By: Marcelina Vizcarra on 09-13-2022 Monocytes/100 WBC (Bld) 7.8 % 0-10 [facility] Blood platelet mean volumeOr dered By: Marcelina Vizcarra on 09-13-2022 Platelet mean volume (Bld) [Entitic vol] 10.4 fL 6.2-12.0 [facility] Determination of erythrocyte mean corpuscular volume (MCV)Ordered By: Marcelina Vizcarra on 09-13-2022 MCV (RBC) [Entitic vol] 91.3 fL 81-99 [facility] Hematocrit Auto (Bld) [Volum e fraction]Ordered By: Marcelina Vizcarra on 09-13-2022 Hematocrit (Bld) [Volume fraction] 37.6 % 37-47 [facility] Laboratory - Chemistry and C hemistry - challengeOrdered By: Marcelina Vizcarra on 09-13-2022 CO2 [Moles/Vol] 26.0 mmol/L 21.0-32.0 [facility] Urea nitrogen/Creatinine [Mass ratio] 12.9 mg/mg 10-20 [facility] Laboratory - Hematology and Cell countsOrdered By: Marcelina Vizcarra on 09-13-2022 Erythrocyte distribution width (RBC) [Entitic vol] 42.5 fL 35.1-43.9 [facility] Erythrocyte distribution width (RBC) [Ratio] 12.8 % 11.6-14.6 [facility] Immature granulocytes/100 WBC (Bld) 0.100 % 0.0-0.9 [facility] Comment on above: IG% - Immature Granu locytes (promyelocytes, myelocytes and metamyelocytes) > 1% indicates that a LEFT SHIFT is Present. MCH (RBC) [Entitic mass] 30.1 pg 27.0-32.0 [facility] Nucleated RBC/100 WBC (Bld) [Ratio] 0 % 0-5 [facility] MCHC Auto (RBC) [Mass/Vol]Or dered By: Marcelina Vizcarra on 09-13-2022 MCHC (RBC) [Mass/Vol] 33.0 g/dL 32-36 [facility] No Panel InformationOrdered By: Marcelina Vizcarra on 09-13-2022 Estimated Creatinine Clearance Calc 76.93 ml/min [facility] Estimated GFR (MDRD) Amer 104 mL/min >60 [facility] Comment on above: GFR Calc Estimated GFR (MDRD) Non-Af Amer 86 mL/min >60 [facility] Comment on above: Non- GFR Calc Troponin I High Sensitivity 5 pg/mL 3.0-54.0 [facility] Comment on above: Please Note: New Karol t Units and Gender Specific Reference Ranges. For more information see Policy Stat Procedure [place] High Sensitivity Troponin (TNIH) and attachments. Platelets bldOrdered By: Vinicio Vizcarra on 09-13-2022 Platelets (Bld) [#/Vol] 314 10*3/uL 150-450 [facility] Serum or plasma calcium ta urement (mass/volume)Ordered By: Marcelina Vizcarra on 09-13-2022 Calcium [Mass/Vol] 8.5 mg/dL 8.5-10.1 [facility] Serum or plasma creatinine m easurement (mass/volume)Ordered By: Marcelina Vizcarra on 09-13-2022 Creatinine [Mass/Vol] 0.78 mg/dL 0.55-1.02 [facility] Comment on above: The validity of the calculated GFR & GFRAA in patients over 70 years has not been determined. Clinical correlation is essential. Serum or plasma urea nitroge n measurement (mass/volume)Ordered By: Marcelina Vizcarra on 09-13-2022 Urea nitrogen [Mass/Vol] 10 mg/dL 7-18 [facility] Thin prep Papanicolaou smear with manual screeningOrdered By: Marcelina Vizcarra on 09-13-2022 Thin prep Papanicolaou smear with manual screening 5 5-15 [facility] XR Chest PA and Lateralon IMPRESSION: No acute radiographic abnormality. Safety Lamp Keeper: PSCB Transcribe Date/Time: Apr 23 2022 8:27A Dictated by : DAVID BURR MD This examination was interpreted and the report reviewed and electronically signed by: DAVID BURR MD on Apr 23 2022 8:28AM [facility] DIVISION OF RADIOLOGY * * *Final Report* [...] Minimal degenerative changes. DIVISION OF RADIOLOGY Provider, [facility] - 04/23/2022 * * *Final Report* * [...] changes. IMPRESSION IMPRESSION: No acute radiographic abnormality. Safety Lamp Keeper: JOHNATHAN Transcribe Date/Time: Apr 23 2022 8:27A Dictated by : DAVID BURR MD This examination was interpreted and the report reviewed and electronically signed by: DAVID BURR MD on Apr 23 2022 8:28AM EST [facility] Radiology Study observation (narrative) [facility] XR Chest PA and LateralOrder ed By: [facility]cf Provider on 04-23-2022 [facility] UA DIP, URINE (POC)on 2021 BILIRUBIN UA (POCT) Negative Negative [facility] CLARITY UA (POCT) Clear [facility] COLOR UA (POCT) Asya [facility] GLUCOSE UA (POCT) Negative Negative mg/dL [facility] HEMOGLOBIN/BLOOD UA (POCT) Negative Negative [facility] KETONE UA (POCT) Negative Negative mg/dL [facility] LEUKOCYTES UA (POCT) Small Abnormal Negative [facility] NITRITE UA (POCT) Negative Negative [facility] PH UA (POCT) 6.0 4.5 - 8.0 [facility] Protein Ql (U) Negative Negative mg/dL [facility] SPECIFIC GRAVITY UA (POCT) >=1.030 1.005 - 1.030 [facility] UROBILINOGEN UA (POCT) 0.2 E.U./dL Caprice l E.U./dL [facility] XR FOOT GENERAL 3V AP/LAT/OB L RIGHTon 10-07-2021 [facility] XR Foot - right AP and [...] Impression: 1. No acute fracture or dislocation. Safety Lamp Keeper: JOHNATHAN Transcribe Date/Time: Oct 07 2021 8:16A Dictated by : INDIRA LANTIGUA MD This examination was interpreted and the report reviewed and electronically signed by: INDIRA LANTIGUA MD on Oct 07 2021 8:21AM EST [id number] N OF RADIOLOGY Provider, [facility] - 10/07/2021 * * *Final Report* * [...] Impression: 1. No acute fracture or dislocation. Safety Lamp Keeper: JOHNATHAN Transcribe Date/Time: Oct 07 2021 8:16A Dictated by : INDIRA LANTIGUA MD This examination was interpreted and the report reviewed and electronically signed by: INDIRA LANTIGUA MD on Oct 07 2021 8:21AM EST [facility] Radiology Study observation (narrative) [facility] XR Foot - right AP and Later al and obliqueOrdered By: Ccf Provider on 10-07-2021 [facility] XR Chest PA and Lateralon IMPRESSION: No acute radiographic abnormality. Safety Lamp Keeper: JOHNATHAN Transcribe Date/Time: Mar 08 2021 9:49A [...] soft tissues: Unremarkable. DIVISION OF RADIOLOGY Provider, [facility] - 03/08/2021 * * *Final [...] Unremarkable. IMPRESSION IMPRESSION: No acute radiographic abnormality. Safety Lamp Keeper: PSCB Transcribe Date/Time: Mar 08 2021 9:49A Dictated by : INDIRA LANTIGUA MD This examination was interpreted and the report reviewed and electronically signed by: INDIRA LANTIGUA MD on Mar 08 2021 9:53AM EST [facility] Radiology Study observation (narrative) [facility] XR Chest PA and LateralOrder ed By: Ccf Provider on 03-08-2021 [facility] XR Knee - left 4 Viewson Radiology Study observation (narrative) [facility] IMPRESSION: Mild degenerative changes as described. Safety Lamp Keeper: PSCB Transcribe Date/Time: Oct 29 2020 1:25P Dictated by : DAVID BURR MD This examination was interpreted and the report reviewed and electronically signed by: DAVID BURR MD on Oct 29 2020 1:27PM EST DIVISION OF RADIOLOGY * * *Final [...] joint space narrowing. DIVISION OF RADIOLOGY Provider, [facility] - 10/29/2020 * * *Final Report* * [...] IMPRESSION IMPRESSION: Mild degenerative changes as described. Safety Lamp Keeper: JOHNATHAN Transcribe Date/Time: Oct 29 2020 1:25P Dictated by : DAVID BURR MD This examination was interpreted and the report reviewed and electronically signed by: DAVID BURR MD on Oct 29 2020 1:27PM EST [facility] XR Knee - left 4 ViewsOrdere d By: Ccf Provider on 10-29-2020 [facility] XR Shoulder - left 3 Viewson 04-13-2020 IMPRESSION: Endings are suggestive of degenerative changes of the acromioclavicular joint. Safety Lamp Keeper: JOHNATHAN Transcribe Date/Time: Apr 13 2020 3:31P Dictated by : PASCUAL MCCANN MD This examination was interpreted and the report reviewed and electronically signed by: PASCUAL MCCANN MD on Apr 13 2020 3:47PM [facility] DIVISION OF RADIOLOGY * * *Final Report* [...] tissue swelling. DIVISION OF RADIOLOGY [facility] * * *Final Report* [...] of degenerative changes of the acromioclavicular joint. 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 This test was developed and its performance characteristics determined by [facility]'s [facility] [place]. This test has been authorized by FDA under an Emergency Use Authorization (EUA). This test has been validated in accordance with the FDA's Guidance Document Policy for Diagnostics Testing in Laboratories Certified to Perform High Complexity Testing under CLIA prior to Emergency use Authorization for Coronavirus Disease 2019 during the Public Health Emergency issued on July 23, 2019. Performed By: [facility] [employer] [address] [place] [address] Medical Hospital Sales: Alex Bass III, M.D. 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 [facility] ([place]) Comment on above: Result Comment: Naso pharyngeal Swab Performed By: [facility] [address] [place] [address] Medical Hospital Sales: Kristy Velazco III#: [id number] Phone#: Performed By: #### C OVID #### Maksim [address] [place], [place] [address] Date of Onset [id number] [facility] ([place]) Comment on above: Performed By: #### C OVID #### Maksim [address] [address] Employed in Healthcare No [facility] ([place]) Comment on above: Performed By: #### C OVID #### Maksim [address] [address] First Test No [facility] ([place]) Comment on above: Performed By: #### C OVID #### Maksim [place] [address] [place] [address] Hospitalized No [facility] ([place]) Comment on above: Performed By: #### C OVID #### Maksim Bronx [address] [place] [address] ICU No [facility] ([place]) Comment on above: Performed By: #### C OVID #### Maksim [address] [address] Not [facility] ([place]) Comment on above: Performed By: #### C OVID #### Maksim [place] [address] [place] [address] Resides in Congregate Care Setting No [facility] ([place]) Comment on above: Performed By: #### C OVID #### Maksim [place] [address] [place] [address] Symptomatic as Defined by CDC Yes [facility] ([place]) Comment on above: Performed By: #### C OVID #### [address] [address] Vital Signs Date Time Vital Sign Value Performing Clinician Facility 02-08-2025 08:09-0400 Body mass index (BMI) [Ratio] 43.91 kg/m2 Lauren Medellin FACILITIES ADMINISTRATOR.SCIENCE PROFESSOR Work Phone: [facility] 02-08-2025 08:09-0400 Body temperature 97.81 [degF] Lauren Medellin FACILITIES ADMINISTRATOR.SCIENCE PROFESSOR Work Phone: [facility] 02-08-2025 08:09-0400 Body weight 108.9 kg Lauren Medellin FACILITIES ADMINISTRATOR.SCIENCE PROFESSOR Work Phone: [facility] 02-08-2025 08:09-0400 Diastolic blood pressure 80 mm[Hg] Lauren Medellin FACILITIES ADMINISTRATOR.SCIENCE PROFESSOR Work Phone: [facility] 02-08-2025 08:09-0400 Heart rate 78 /min Lauren Medellin FACILITIES ADMINISTRATOR.SCIENCE PROFESSOR Work Phone: [facility] 02-08-2025 08:09-0400 Respiratory rate 16 /min Lauren Medellin FACILITIES ADMINISTRATOR.SCIENCE PROFESSOR Work Phone: [facility] 02-08-2025 08:09-0400 SaO2% (BldA) [Mass fraction] 97 % Lauren Medellin FACILITIES ADMINISTRATOR.SCIENCE PROFESSOR Work Phone: [facility] 02-08-2025 08:09-0400 Systolic blood pressure 124 mm[Hg] Lauren Medellin FACILITIES ADMINISTRATOR.SCIENCE PROFESSOR Work Phone: [facility] 02-01-2025 08:12-0400 Body mass index (BMI) [Ratio] 44.07 kg/m2 Marita Swank FACILITIES ADMINISTRATOR.SCIENCE PROFESSOR Work Phone: [facility] 02-01-2025 08:12-0400 Body temperature 98.01 [degF] Marita Swank FACILITIES ADMINISTRATOR.SCIENCE PROFESSOR Work Phone: [facility] 02-01-2025 08:12-0400 Body weight 109.3 kg Marita Swank FACILITIES ADMINISTRATOR.SCIENCE PROFESSOR Work Phone: [facility] 02-01-2025 08:12-0400 Diastolic blood pressure 90 mm[Hg] Marita Swank FACILITIES ADMINISTRATOR.SCIENCE PROFESSOR Work Phone: [facility] 02-01-2025 08:12-0400 Heart rate 75 /min Marita Swank FACILITIES ADMINISTRATOR.SCIENCE PROFESSOR Work Phone: [facility] 02-01-2025 08:12-0400 Respiratory rate 19 /min Marita Swank FACILITIES ADMINISTRATOR.SCIENCE PROFESSOR Work Phone: [facility] 02-01-2025 08:12-0400 SaO2% (BldA) [Mass fraction] 95 % Marita Swank FACILITIES ADMINISTRATOR.SCIENCE PROFESSOR Work Phone: [facility] 02-01-2025 08:12-0400 Systolic blood pressure 122 mm[Hg] Marita Swank FACILITIES ADMINISTRATOR.SCIENCE PROFESSOR Work Phone: [facility] 01-25-2025 11:20-0400 Diastolic blood pressure 80 mm[Hg] Antonietta Gonzalez MD Work Phone: [facility] 01-25-2025 11:20-0400 Heart rate 78 /min Antonietta Gonzalez MD Work Phone: [facility] 01-25-2025 11:20-0400 SaO2% (BldA) [Mass fraction] 99 % Antonietta Gonzalez MD Work Phone: [facility] 01-25-2025 11:20-0400 Systolic blood pressure 115 mm[Hg] Antonietta Gonzalez MD Work Phone: [facility] 01-25-2025 10:10-0400 Body height 157.5 cm Antonietta Gonzalez MD Work Phone: [facility] 01-25-2025 10:10-0400 Body mass index (BMI) [Ratio] 44.63 kg/m2 Antonietta Gonzalez MD Work Phone: [facility] 01-25-2025 10:10-0400 Body temperature 97.7 [degF] Antonietta Gonzalez MD Work Phone: [facility] 01-25-2025 10:10-0400 Body weight 110.68 kg Antonietta Gonzalez MD Work Phone: [facility] 01-25-2025 10:10-0400 Respiratory rate 18 /min Antonietta Gonzalez MD Work Phone: [facility] 01-17-2025 10:16-0400 Diastolic blood pressure 86 mm[Hg] Bettina Suppan FACILITIES ADMINISTRATOR.SCIENCE PROFESSOR Work Phone: [facility] 01-17-2025 10:16-0400 Systolic blood pressure 140 mm[Hg] Bettina Suppan FACILITIES ADMINISTRATOR.SCIENCE PROFESSOR Work Phone: [facility] 01-17-2025 09:40-0400 Body mass index (BMI) [Ratio] 44.63 kg/m2 Bettina Suppan FACILITIES ADMINISTRATOR.SCIENCE PROFESSOR Work Phone: [facility] 01-17-2025 09:40-0400 Body temperature 97.59 [degF] Bettina Suppan FACILITIES ADMINISTRATOR.SCIENCE PROFESSOR Work Phone: [facility] 01-17-2025 09:40-0400 Body weight 110.68 kg Bettina Suppan FACILITIES ADMINISTRATOR.SCIENCE PROFESSOR Work Phone: [facility] 01-17-2025 09:40-0400 Heart rate 70 /min Bettina Suppan FACILITIES ADMINISTRATOR.SCIENCE PROFESSOR Work Phone: [facility] 01-17-2025 09:40-0400 SaO2% (BldA) [Mass fraction] 100 % Bettina Suppan FACILITIES ADMINISTRATOR.SCIENCE PROFESSOR Work Phone: [facility] 01-12-2025 08:27-0400 Body mass index (BMI) [Ratio] 44.6 kg/m2 Krislyn Aberegg PA Work Phone: [facility] 01-12-2025 08:27-0400 Body temperature 98.29 [degF] Krislyn Aberegg PA Work Phone: [facility] 01-12-2025 08:27-0400 Body weight 110.6 kg Krislyn Aberegg PA Work Phone: [facility] 01-12-2025 08:27-0400 Diastolic blood pressure 82 mm[Hg] Krislyn Aberegg PA Work Phone: [facility] 01-12-2025 08:27-0400 Heart rate 70 /min Krislyn Aberegg PA Work Phone: [facility] 01-12-2025 08:27-0400 Respiratory rate 18 /min Krislyn Aberegg PA Work Phone: [facility] 01-12-2025 08:27-0400 SaO2% (BldA) [Mass fraction] 98 % Krislyn Aberegg PA Work Phone: [facility] 01-12-2025 08:27-0400 Systolic blood pressure 137 mm[Hg] Krislyn Aberegg PA Work Phone: [facility] 01-07-2025 14:16-0400 Body temperature 97.1 [degF] Bettina Suppan SMOG TECHNICIAN Work Phone: [facility] 01-07-2025 14:16-0400 Diastolic blood pressure 74 mm[Hg] Bettina Suppan SMOG TECHNICIAN Work Phone: [facility] 01-07-2025 14:16-0400 Heart rate 68 /min Bettina Suppan SMOG TECHNICIAN Work Phone: [facility] 01-07-2025 14:16-0400 Respiratory rate 22 /min Bettina Suppan SMOG TECHNICIAN Work Phone: [facility] 01-07-2025 14:16-0400 SaO2% (BldA) [Mass fraction] 100 % Bettina Suppan SMOG TECHNICIAN Work Phone: [facility] 01-07-2025 14:16-0400 Systolic blood pressure 136 mm[Hg] Bettina Suppan SMOG TECHNICIAN Work Phone: [facility] 01-07-2025 11:58-0400 Body mass index (BMI) [Ratio] 43.1 kg/m2 Bettina Suppan SMOG TECHNICIAN Work Phone: [facility] 01-07-2025 11:58-0400 Body weight 110.5 kg Bettina Suppan SMOG TECHNICIAN Work Phone: [facility] 01-07-2025 11:03-0400 Body height 160.02 cm Bettina Suppan SMOG TECHNICIAN Work Phone: [facility] 10-31-2024 12:56-0400 Body height 160.02 cm Bettina Suppan SMOG TECHNICIAN Work Phone: [facility] 10-31-2024 12:56-0400 Body mass index (BMI) [Ratio] 42.5 kg/m2 Bettina Suppan SMOG TECHNICIAN Work Phone: [facility] 10-31-2024 12:56-0400 Body weight 108.86 kg Bettina Suppan SMOG TECHNICIAN Work Phone: [facility] 09-13-2024 09:07-0400 Body height 160.[address] Corey Tristan MD Work Phone: [facility] 09-13-2024 09:07-0400 Body mass index (BMI) [Ratio] 42.5 kg/m2 Dr. Corey Tristan MD Work Phone: [facility] 09-13-2024 09:07-0400 Body weight 108.[address] Corey Tristan MD Work Phone: [facility] 09-06-2024 09:10-0400 Body mass index (BMI) [Ratio] 42.5 kg/m2 Dr. Corey Tristan MD Work Phone: [facility] 09-06-2024 09:10-0400 Body weight 108.[address] Corey Tristan MD Work Phone: [facility] 08-10-2024 09:03-0400 Body temperature 97.81 [degF] Ashlee Lee FACILITIES ADMINISTRATORDiamondSCIENCE PROFESSOR Work Phone: [facility] 08-08-2024 10:01-0400 Body mass index (BMI) [Ratio] 44.08 kg/m2 Bettina Chaparritaan FACILITIES ADMINISTRATOR.SCIENCE PROFESSOR Work Phone: [facility] 08-08-2024 10:01-0400 Body temperature 97.59 [degF] Bettina Suppan FACILITIES ADMINISTRATOR.SCIENCE PROFESSOR Work Phone: [facility] 08-08-2024 10:01-0400 Body weight 109.32 kg Bettina Suppan FACILITIES ADMINISTRATOR.SCIENCE PROFESSOR Work Phone: [facility] 08-08-2024 10:01-0400 Diastolic blood pressure 78 mm[Hg] Bettina Suppan FACILITIES ADMINISTRATOR.SCIENCE PROFESSOR Work Phone: [facility] 08-08-2024 10:01-0400 Heart rate 77 /min Bettina Suppan FACILITIES ADMINISTRATOR.SCIENCE PROFESSOR Work Phone: [facility] 08-08-2024 10:01-0400 SaO2% (BldA) [Mass fraction] 100 % Bettina Suppan FACILITIES ADMINISTRATOR.SCIENCE PROFESSOR Work Phone: [facility] 08-08-2024 10:01-0400 Systolic blood pressure 130 mm[Hg] Bettina Suppan FACILITIES ADMINISTRATOR.SCIENCE PROFESSOR Work Phone: [facility] 08-04-2024 14:06-0400 Body temperature 98.4 [degF] Ashlee Lee FACILITIES ADMINISTRATOR.SCIENCE PROFESSOR Work Phone: [facility] 08-02-2024 13:19-0400 Body height 157.5 cm Nader Calvillo MD Work Phone: [facility] 08-02-2024 13:19-0400 Body mass index (BMI) [Ratio] 44.7 kg/m2 Nader Calvillo MD Work Phone: [facility] 08-02-2024 13:19-0400 Body temperature 97.7 [degF] Nader Calvillo MD Work Phone: [facility] 08-02-2024 13:19-0400 Body weight 110.86 kg Nader Calvillo MD Work Phone: [facility] 08-02-2024 13:19-0400 Diastolic blood pressure 84 mm[Hg] Nader Calvillo MD Work Phone: [facility] 08-02-2024 13:19-0400 Heart rate 92 /min Nader Calvillo MD Work Phone: [facility] 08-02-2024 13:19-0400 SaO2% (BldA) [Mass fraction] 100 % Nader Calvillo MD Work Phone: [facility] 08-02-2024 13:19-0400 Systolic blood pressure 132 mm[Hg] Nader Calvillo MD Work Phone: [facility] 08-01-2024 15:06-0400 Body mass index (BMI) [Ratio] 44.45 kg/m2 Bettina Suppan FACILITIES ADMINISTRATOR.SCIENCE PROFESSOR Work Phone: [facility] 08-01-2024 15:06-0400 Body temperature 98.8 [degF] Bettina Suppan FACILITIES ADMINISTRATOR.SCIENCE PROFESSOR Work Phone: [facility] 08-01-2024 15:06-0400 Body weight 110.22 kg Bettina Suppan FACILITIES ADMINISTRATOR.SCIENCE PROFESSOR Work Phone: [facility] 08-01-2024 15:06-0400 Diastolic blood pressure 88 mm[Hg] Bettina Suppan FACILITIES ADMINISTRATOR.SCIENCE PROFESSOR Work Phone: [facility] 08-01-2024 15:06-0400 Heart rate 75 /min Bettina Suppan FACILITIES ADMINISTRATOR.SCIENCE PROFESSOR Work Phone: [facility] 08-01-2024 15:06-0400 SaO2% (BldA) [Mass fraction] 98 % Bettina Suppan FACILITIES ADMINISTRATOR.SCIENCE PROFESSOR Work Phone: [facility] 08-01-2024 15:06-0400 Systolic blood pressure 132 mm[Hg] Bettina Suppan FACILITIES ADMINISTRATOR.SCIENCE PROFESSOR Work Phone: [facility] 07-25-2024 10:53-0500 Body height 157.5 cm Lillie Bautista PA-C Work Phone: [facility] 07-25-2024 10:53-0500 Body mass index (BMI) [Ratio] 44.45 kg/m2 Lillie Griffinos PA-C Work Phone: [facility] 07-25-2024 10:53-0500 Body weight 110.22 kg Lillie Saldivariglos PA-C Work Phone: [facility] 07-21-2024 11:28-0500 Body mass index (BMI) [Ratio] 43.9 kg/m2 Bettina Suppan FACILITIES ADMINISTRATOR.SCIENCE PROFESSOR Work Phone: [facility] 07-21-2024 11:28-0500 Body temperature 97 [degF] Bettina Suppan FACILITIES ADMINISTRATOR.SCIENCE PROFESSOR Work Phone: [facility] 07-21-2024 11:28-0500 Body weight 108.86 kg Bettina Suppan FACILITIES ADMINISTRATOR.SCIENCE PROFESSOR Work Phone: [facility] 07-21-2024 11:28-0500 Diastolic blood pressure 88 mm[Hg] Bettina Suppan FACILITIES ADMINISTRATOR.SCIENCE PROFESSOR Work Phone: [facility] 07-21-2024 11:28-0500 Heart rate 79 /min Bettina Suppan FACILITIES ADMINISTRATOR.SCIENCE PROFESSOR Work Phone: [facility] 07-21-2024 11:28-0500 SaO2% (BldA) [Mass fraction] 99 % Bettina Suppan FACILITIES ADMINISTRATOR.SCIENCE PROFESSOR Work Phone: [facility] 07-21-2024 11:28-0500 Systolic blood pressure 122 mm[Hg] Bettina Suppan FACILITIES ADMINISTRATOR.SCIENCE PROFESSOR Work Phone: [facility] 07-18-2024 22:57-0500 Body temperature 98.7 [degF] Dr. Corey Tristan MD Work Phone: [facility] 07-18-2024 22:57-0500 Diastolic blood pressure 87 mm[Hg] Dr. Corey Tristan MD Work Phone: [facility] 07-18-2024 22:57-0500 Heart rate 71 /min Dr. Corey Tristan MD Work Phone: 3(222)131-132245 [place] [address] 07-18-2024 22:57-0500 Respiratory rate 16 /min Dr. Corey Tristan MD Work Phone: 5(408)392-409264 [place] [address] 07-18-2024 22:57-0500 SaO2% (BldA) [Mass fraction] 100 % Dr. Corey Tristan MD Work Phone: 1(026)247-277964 [place] [address] 07-18-2024 22:57-0500 Systolic blood pressure 147 mm[Hg] Dr. Corey Tristan MD Work Phone: 3(010)259-077764 [place] [address] 07-18-2024 18:47-0500 Body height 160.[address] Corey Tristan MD Work Phone: 5(142)290-420764 [place] [address] 07-18-2024 18:47-0500 Body mass index (BMI) [Ratio] 43.1 kg/m2 Dr. Corey Tristan MD Work Phone: 7(407)702-929564 [place] [address] 07-18-2024 18:47-0500 Body weight 110.[address] Corey Tristan MD Work Phone: 8(067)010-291564 [place] [address] 07-18-2024 07:49-0500 Body temperature 98.5 [degF] Dr. Corey Tristan MD Work Phone: 1(451)394-359564 [place] [address] 07-18-2024 07:49-0500 Diastolic blood pressure 68 mm[Hg] Dr. Corey Tristan MD Work Phone: 5(554)187-466564 [place] [address] 07-18-2024 07:49-0500 Heart rate 85 /min Dr. Corey Tristan MD Work Phone: 1(057)945-182564 [place] [address] 07-18-2024 07:49-0500 Respiratory rate 12 /min Dr. Corey Tristan MD Work Phone: 3(387)615-948264 [place] [address] 07-18-2024 07:49-0500 SaO2% (BldA) [Mass fraction] 98 % Dr. Corey Tristan MD Work Phone: 6(421)353-943145 [place] [address] 07-18-2024 07:49-0500 Systolic blood pressure 118 mm[Hg] Dr. Corey Tristan MD Work Phone: [facility] 07-16-2024 08:19-0500 Body mass index (BMI) [Ratio] 45.04 kg/m2 Krislyn Aberegg PA Work Phone: [facility] 07-16-2024 08:19-0500 Body temperature 98.01 [degF] Krislyn Aberegg PA Work Phone: [facility] 07-16-2024 08:19-0500 Body weight 111.7 kg Krislyn Aberegg PA Work Phone: [facility] 07-16-2024 08:19-0500 Diastolic blood pressure 100 mm[Hg] Krislyn Aberegg PA Work Phone: [facility] 07-16-2024 08:19-0500 Heart rate 88 /min Krislyn Aberegg PA Work Phone: [facility] 07-16-2024 08:19-0500 Respiratory rate 21 /min Krislyn Aberegg PA Work Phone: [facility] 07-16-2024 08:19-0500 SaO2% (BldA) [Mass fraction] 98 % Krislyn Aberegg PA Work Phone: [facility] 07-16-2024 08:19-0500 Systolic blood pressure 130 mm[Hg] Krislyn Aberegg PA Work Phone: [facility] 06-28-2024 06:32-0500 Body temperature 98 [degF] Dr. Corey Tristan MD Work Phone: [facility] 06-28-2024 06:32-0500 Diastolic blood pressure 69 mm[Hg] Dr. Corey Tristan MD Work Phone: [facility] 06-28-2024 06:32-0500 Heart rate 72 /min Dr. Corey Tristan MD Work Phone: [facility] 06-28-2024 06:32-0500 Respiratory rate 18 /min Dr. Corey Tristan MD Work Phone: 4(530)861-544764 [place] [address] 06-28-2024 06:32-0500 SaO2% (BldA) [Mass fraction] 100 % Dr. Corey Tristan MD Work Phone: 1(109)660-251964 [place] [address] 06-28-2024 06:32-0500 Systolic blood pressure 128 mm[Hg] Dr. Corey Tristan MD Work Phone: 8(803)817-665964 [place] [address] 06-28-2024 05:39-0500 Body mass index (BMI) [Ratio] 43.7 kg/m2 Dr. Corey Tristan MD Work Phone: 4(452)874-419964 [place] [address] 06-28-2024 05:39-0500 Body weight 111.[address] Corey Tristan MD Work Phone: 7(896)360-207464 [place] [address] 06-27-2024 10:31-0500 Body temperature 98.1 [degF] Dr. Corey Tristan MD Work Phone: 6(599)772-502964 [place] [address] 06-27-2024 10:31-0500 Diastolic blood pressure 100 mm[Hg] Dr. Corey Tristan MD Work Phone: 9(135)569-159964 [place] [address] 06-27-2024 10:31-0500 Heart rate 54 /min Dr. Corey Tristan MD Work Phone: 6(891)674-285864 [place] [address] 06-27-2024 10:31-0500 Respiratory rate 18 /min Dr. Corey Tristan MD Work Phone: 8(556)407-762864 [place] [address] 06-27-2024 10:31-0500 SaO2% (BldA) [Mass fraction] 96 % Dr. Corey Tristan MD Work Phone: 7(915)208-915064 [place] [address] 06-27-2024 10:31-0500 Systolic blood pressure 148 mm[Hg] Dr. Corey Tristan MD Work Phone: 7(203)049-890364 [place] [address] 06-27-2024 07:06-0500 Body mass index (BMI) [Ratio] 42.5 kg/m2 Dr. Corey Tristan MD Work Phone: [facility] 06-27-2024 07:06-0500 Body weight 108.[address] Corey Tristan MD Work Phone: [facility] 05-03-2024 15:39-0500 Body mass index (BMI) [Ratio] 44.35 kg/m2 Bettina Suppan FACILITIES ADMINISTRATOR.SCIENCE PROFESSOR Work Phone: [facility] 05-03-2024 15:39-0500 Body temperature 97.2 [degF] Bettina Suppan FACILITIES ADMINISTRATOR.SCIENCE PROFESSOR Work Phone: [facility] 05-03-2024 15:39-0500 Body weight 110 kg Bettina Suppan FACILITIES ADMINISTRATOR.SCIENCE PROFESSOR Work Phone: [facility] 05-03-2024 15:39-0500 Diastolic blood pressure 82 mm[Hg] Bettina Suppan FACILITIES ADMINISTRATOR.SCIENCE PROFESSOR Work Phone: [facility] 05-03-2024 15:39-0500 Heart rate 71 /min Bettina Suppan FACILITIES ADMINISTRATOR.SCIENCE PROFESSOR Work Phone: [facility] 05-03-2024 15:39-0500 Respiratory rate 18 /min Bettina Suppan FACILITIES ADMINISTRATOR.SCIENCE PROFESSOR Work Phone: [facility] 05-03-2024 15:39-0500 SaO2% (BldA) [Mass fraction] 98 % Bettina Suppan FACILITIES ADMINISTRATOR.SCIENCE PROFESSOR Work Phone: [facility] 05-03-2024 15:39-0500 Systolic blood pressure 132 mm[Hg] Bettina Suppan FACILITIES ADMINISTRATOR.SCIENCE PROFESSOR Work Phone: [facility] 04-27-2024 08:35-0500 Body mass index (BMI) [Ratio] 44.96 kg/m2 Geronimo Estrada MD Work Phone: [facility] 04-27-2024 08:35-0500 Body temperature 97.59 [degF] Geronimo Estrada MD Work Phone: [facility] 04-27-2024 08:35-0500 Body weight 111.5 kg Geronimo Estrada MD Work Phone: [facility] 04-27-2024 08:35-0500 Diastolic blood pressure 86 mm[Hg] Geronimo Estrada MD Work Phone: [facility] 04-27-2024 08:35-0500 Heart rate 80 /min Geronimo Estrada MD Work Phone: [facility] 04-27-2024 08:35-0500 Respiratory rate 18 /min Geronimo Estrada MD Work Phone: [facility] 04-27-2024 08:35-0500 SaO2% (BldA) [Mass fraction] 98 % Geronimo Estrada MD Work Phone: [facility] 04-27-2024 08:35-0500 Systolic blood pressure 140 mm[Hg] Geronimo Estrada MD Work Phone: [facility] 04-16-2024 08:10-0500 Body mass index (BMI) [Ratio] 43.63 kg/m2 Edna Moomaw FACILITIES ADMINISTRATOR.SCIENCE PROFESSOR Work Phone: [facility] 04-16-2024 08:10-0500 Body temperature 97.81 [degF] Edna Moomaw FACILITIES ADMINISTRATOR.SCIENCE PROFESSOR Work Phone: [facility] 04-16-2024 08:10-0500 Body weight 108.2 kg Edna Moomaw FACILITIES ADMINISTRATOR.SCIENCE PROFESSOR Work Phone: [facility] 04-16-2024 08:10-0500 Diastolic blood pressure 88 mm[Hg] Edna Moomaw FACILITIES ADMINISTRATOR.SCIENCE PROFESSOR Work Phone: [facility] 04-16-2024 08:10-0500 Heart rate 66 /min Edna Moomaw FACILITIES ADMINISTRATOR.SCIENCE PROFESSOR Work Phone: [facility] 04-16-2024 08:10-0500 Respiratory rate 18 /min Edna Moomaw FACILITIES ADMINISTRATOR.SCIENCE PROFESSOR Work Phone: [facility] 04-16-2024 08:10-0500 SaO2% (BldA) [Mass fraction] 98 % Edna Moomaw FACILITIES ADMINISTRATOR.SCIENCE PROFESSOR Work Phone: [facility] 04-16-2024 08:10-0500 Systolic blood pressure 144 mm[Hg] Edna Betzaidaw FACILITIES ADMINISTRATOR.SCIENCE PROFESSOR Work Phone: [facility] 04-12-2024 12:39-0500 Body mass index (BMI) [Ratio] 44.6 kg/m2 Krislyn Aberegg PA Work Phone: [facility] 04-12-2024 12:39-0500 Body temperature 98.4 [degF] Krislyn Aberegg PA Work Phone: [facility] 04-12-2024 12:39-0500 Body weight 110.6 kg Krislyn Aberegg PA Work Phone: [facility] 04-12-2024 12:39-0500 Diastolic blood pressure 80 mm[Hg] Krislyn Aberegg PA Work Phone: [facility] 04-12-2024 12:39-0500 Heart rate 76 /min Krislyn Aberegg PA Work Phone: [facility] 04-12-2024 12:39-0500 Respiratory rate 16 /min Krislyn Aberegg PA Work Phone: [facility] 04-12-2024 12:39-0500 SaO2% (BldA) [Mass fraction] 97 % Krislyn Aberegg PA Work Phone: [facility] 04-12-2024 12:39-0500 Systolic blood pressure 144 mm[Hg] Krislyn Aberegg PA Work Phone: [facility] 02-08-2024 09:43-0400 Body height 157.5 cm Deborah Jose FACILITIES ADMINISTRATOR.SCIENCE PROFESSOR Work Phone: [facility] 02-08-2024 09:43-0400 Body mass index (BMI) [Ratio] 43.71 kg/m2 Deborah Joes FACILITIES ADMINISTRATOR.SCIENCE PROFESSOR Work Phone: [facility] 02-08-2024 09:43-0400 Body weight 108.41 kg Deborah Ojo Feliz FACILITIES ADMINISTRATOR.SCIENCE PROFESSOR Work Phone: [facility] 02-08-2024 09:43-0400 Diastolic blood pressure 76 mm[Hg] Deborah Jose FACILITIES ADMINISTRATOR.SCIENCE PROFESSOR Work Phone: [facility] 02-08-2024 09:43-0400 Systolic blood pressure 130 mm[Hg] Deborah Jose FACILITIES ADMINISTRATOR.SCIENCE PROFESSOR Work Phone: [facility] 01-15-2024 14:49-0400 Body mass index (BMI) [Ratio] 42.69 kg/m2 Bettina Suppan FACILITIES ADMINISTRATOR.SCIENCE PROFESSOR Work Phone: [facility] 01-15-2024 14:49-0400 Body weight 109.32 kg Bettina Suppan FACILITIES ADMINISTRATOR.SCIENCE PROFESSOR Work Phone: [facility] 01-15-2024 14:49-0400 Diastolic blood pressure 80 mm[Hg] Bettina Suppan FACILITIES ADMINISTRATOR.SCIENCE PROFESSOR Work Phone: [facility] 01-15-2024 14:49-0400 Heart rate 92 /min Bettina Suppan FACILITIES ADMINISTRATOR.SCIENCE PROFESSOR Work Phone: [facility] 01-15-2024 14:49-0400 Respiratory rate 16 /min Bettina Suppan FACILITIES ADMINISTRATOR.SCIENCE PROFESSOR Work Phone: [facility] 01-15-2024 14:49-0400 SaO2% (BldA) [Mass fraction] 99 % Bettina Suppan FACILITIES ADMINISTRATOR.SCIENCE PROFESSOR Work Phone: [facility] 01-15-2024 14:49-0400 Systolic blood pressure 120 mm[Hg] Bettina Suppan FACILITIES ADMINISTRATOR.SCIENCE PROFESSOR Work Phone: [facility] 12-28-2023 12:59-0400 Body mass index (BMI) [Ratio] 43.22 kg/m2 Ashlee David FACILITIES ADMINISTRATOR.SCIENCE PROFESSOR Work Phone: [facility] 12-28-2023 12:59-0400 Body temperature 97.81 [degF] Ashlee David FACILITIES ADMINISTRATOR.SCIENCE PROFESSOR Work Phone: [facility] 12-28-2023 12:59-0400 Body weight 110.68 kg Ashlee David FACILITIES ADMINISTRATOR.SCIENCE PROFESSOR Work Phone: [facility] 12-28-2023 12:59-0400 Diastolic blood pressure 84 mm[Hg] Ashlee David FACILITIES ADMINISTRATOR.SCIENCE PROFESSOR Work Phone: [facility] 12-28-2023 12:59-0400 Heart rate 78 /min Ashlee David FACILITIES ADMINISTRATOR.SCIENCE PROFESSOR Work Phone: [facility] 12-28-2023 12:59-0400 SaO2% (BldA) [Mass fraction] 96 % Ashlee David FACILITIES ADMINISTRATOR.SCIENCE PROFESSOR Work Phone: [facility] 12-28-2023 12:59-0400 Systolic blood pressure 124 mm[Hg] Ashlee David FACILITIES ADMINISTRATOR.SCIENCE PROFESSOR Work Phone: [facility] 12-16-2023 09:06-0400 Body mass index (BMI) [Ratio] 42.87 kg/m2 Faith Sachinhof FACILITIES ADMINISTRATOR.SCIENCE PROFESSOR Work Phone: [facility] 12-16-2023 09:06-0400 Body weight 109.77 kg Faith Stephensonhof FACILITIES ADMINISTRATOR.SCIENCE PROFESSOR Work Phone: [facility] 12-16-2023 09:06-0400 Diastolic blood pressure 62 mm[Hg] Faith Tannhof FACILITIES ADMINISTRATOR.SCIENCE PROFESSOR Work Phone: [facility] 12-16-2023 09:06-0400 Heart rate 78 /min Faith Tannhof FACILITIES ADMINISTRATOR.SCIENCE PROFESSOR Work Phone: [facility] 12-16-2023 09:06-0400 Respiratory rate 16 /min Faith Tannhof FACILITIES ADMINISTRATOR.SCIENCE PROFESSOR Work Phone: [facility] 12-16-2023 09:06-0400 SaO2% (BldA) [Mass fraction] 96 % Faith Tannhof FACILITIES ADMINISTRATOR.SCIENCE PROFESSOR Work Phone: [facility] 12-16-2023 09:06-0400 Systolic blood pressure 122 mm[Hg] Faith Deluna FACILITIES ADMINISTRATOR.SCIENCE PROFESSOR Work Phone: [facility] 11-13-2023 09:58-0400 Diastolic blood pressure 90 mm[Hg] Claudia Haagen FACILITIES ADMINISTRATOR.SCIENCE PROFESSOR Work Phone: [facility] 11-13-2023 09:58-0400 Heart rate 66 /min Claudia Haagen FACILITIES ADMINISTRATOR.SCIENCE PROFESSOR Work Phone: [facility] 11-13-2023 09:58-0400 Respiratory rate 16 /min Claudia Haagen FACILITIES ADMINISTRATOR.SCIENCE PROFESSOR Work Phone: [facility] 11-13-2023 09:58-0400 SaO2% (BldA) [Mass fraction] 97 % Claudia Haagen FACILITIES ADMINISTRATOR.SCIENCE PROFESSOR Work Phone: [facility] 11-13-2023 09:58-0400 Systolic blood pressure 128 mm[Hg] Claudia Haagen FACILITIES ADMINISTRATOR.SCIENCE PROFESSOR Work Phone: [facility] 08-13-2023 11:04-0400 Body weight 112.95 kg NA Garcia PA-C Work Phone: [facility] 08-13-2023 11:04-0400 Diastolic blood pressure 82 mm[Hg] NA Garcia PA-C Work Phone: [facility] 08-13-2023 11:04-0400 Heart rate 75 /min NA Garcia PA-C Work Phone: [facility] 08-13-2023 11:04-0400 SaO2% (BldA) [Mass fraction] 98 % NA Garcia PA-C Work Phone: [facility] 08-13-2023 11:04-0400 Systolic blood pressure 124 mm[Hg] NA Garcia PA-C Work Phone: [facility] 08-03-2023 10:45-0400 Body weight 111.58 kg NA Garcia PA-C Work Phone: [facility] 08-03-2023 10:45-0400 Diastolic blood pressure 80 mm[Hg] NA Garcia PA-C Work Phone: [facility] 08-03-2023 10:45-0400 Heart rate 70 /min NA Garcia PA-C Work Phone: [facility] 08-03-2023 10:45-0400 Respiratory rate 16 /min NA Garcia PA-C Work Phone: [facility] 08-03-2023 10:45-0400 SaO2% (BldA) [Mass fraction] 99 % NA Garcia PA-C Work Phone: [facility] 08-03-2023 10:45-0400 Systolic blood pressure 118 mm[Hg] NA Garcia PA-C Work Phone: [facility] 07-31-2023 11:42-0500 Body weight 111.58 kg NA Garcia PA-C Work Phone: [facility] 07-31-2023 11:42-0500 Diastolic blood pressure 80 mm[Hg] NA Garcia PA-C Work Phone: [facility] 07-31-2023 11:42-0500 Heart rate 66 /min NA Garcia PA-C Work Phone: [facility] 07-31-2023 11:42-0500 Respiratory rate 16 /min NA Garcia PA-C Work Phone: [facility] 07-31-2023 11:42-0500 SaO2% (BldA) [Mass fraction] 98 % NA Garcia PA-C Work Phone: [facility] 07-31-2023 11:42-0500 Systolic blood pressure 116 mm[Hg] NA Garcia PA-C Work Phone: [facility] 04-13-2023 14:18-0500 Body height 160.4 cm Clive Zuniga DO Work Phone: [facility] 04-13-2023 14:18-0500 Body weight 106.01 kg Clive Zuniga DO Work Phone: [facility] 04-13-2023 14:18-0500 Diastolic blood pressure 74 mm[Hg] Clive Loin DO Work Phone: [facility] 04-13-2023 14:18-0500 Heart rate 78 /min Clive Loin DO Work Phone: [facility] 04-13-2023 14:18-0500 Systolic blood pressure 129 mm[Hg] Clive Loin DO Work Phone: [facility] 03-24-2023 07:48-0400 Body temperature 97.11 [degF] Shashi Tirso FACILITIES ADMINISTRATOR.SCIENCE PROFESSOR Work Phone: [facility] 03-24-2023 07:48-0400 Body weight 107.14 kg Shashi Chahal FACILITIES ADMINISTRATOR.SCIENCE PROFESSOR Work Phone: [facility] 03-24-2023 07:48-0400 Diastolic blood pressure 80 mm[Hg] Shashi Chahal FACILITIES ADMINISTRATOR.SCIENCE PROFESSOR Work Phone: [facility] 03-24-2023 07:48-0400 Heart rate 63 /min Shashi Chahal FACILITIES ADMINISTRATOR.SCIENCE PROFESSOR Work Phone: [facility] 03-24-2023 07:48-0400 Respiratory rate 18 /min Shashi Chahal FACILITIES ADMINISTRATOR.SCIENCE PROFESSOR Work Phone: [facility] 03-24-2023 07:48-0400 SaO2% (BldA) [Mass fraction] 97 % Shashi Chahal FACILITIES ADMINISTRATOR.SCIENCE PROFESSOR Work Phone: [facility] 03-24-2023 07:48-0400 Systolic blood pressure 110 mm[Hg] Shashi Chahal FACILITIES ADMINISTRATOR.SCIENCE PROFESSOR Work Phone: [facility] 03-13-2023 14:06-0400 Body weight 107.96 kg NA Jose PA-C Work Phone: [facility] 03-13-2023 14:06-0400 Diastolic blood pressure 78 mm[Hg] NA Garcia PA-C Work Phone: [facility] 03-13-2023 14:06-0400 Heart rate 83 /min NA Garcia PA-C Work Phone: [facility] 03-13-2023 14:06-0400 Respiratory rate 18 /min NA Garcia PA-C Work Phone: [facility] 03-13-2023 14:06-0400 SaO2% (BldA) [Mass fraction] 98 % NA Garcia PA-C Work Phone: [facility] 03-13-2023 14:06-0400 Systolic blood pressure 112 mm[Hg] NA Garcia PA-C Work Phone: [facility] 02-19-2023 14:25-0400 Body temperature 98.2 [degF] Monse Praisler-Wood FACILITIES ADMINISTRATOR.SCIENCE PROFESSOR Work Phone: [facility] 02-19-2023 14:25-0400 Body weight 104.69 kg Monse Praisler-Wood FACILITIES ADMINISTRATOR.SCIENCE PROFESSOR Work Phone: [facility] 02-19-2023 14:25-0400 Diastolic blood pressure 90 mm[Hg] Monse Praisler-Wood FACILITIES ADMINISTRATOR.SCIENCE PROFESSOR Work Phone: [facility] 02-19-2023 14:25-0400 Heart rate 76 /min Monse Praisler-Wood FACILITIES ADMINISTRATOR.SCIENCE PROFESSOR Work Phone: [facility] 02-19-2023 14:25-0400 Respiratory rate 20 /min Monse Praisler-Wood FACILITIES ADMINISTRATOR.SCIENCE PROFESSOR Work Phone: [facility] 02-19-2023 14:25-0400 SaO2% (BldA) [Mass fraction] 99 % Monse Praisler-Wood FACILITIES ADMINISTRATOR.SCIENCE PROFESSOR Work Phone: [facility] 02-19-2023 14:25-0400 Systolic blood pressure 140 mm[Hg] Monse Praisler-Wood FACILITIES ADMINISTRATOR.SCIENCE PROFESSOR Work Phone: [facility] 02-05-2023 09:36-0400 Body height 157.5 cm Deborah Ojo Feliz FACILITIES ADMINISTRATOR.SCIENCE PROFESSOR Work Phone: [facility] 02-05-2023 09:36-0400 Body weight 106.59 kg Deborah Ojo Feliz FACILITIES ADMINISTRATOR.SCIENCE PROFESSOR Work Phone: [facility] 02-05-2023 09:36-0400 Diastolic blood pressure 78 mm[Hg] Deborah Jose FACILITIES ADMINISTRATOR.SCIENCE PROFESSOR Work Phone: [facility] 02-05-2023 09:36-0400 Systolic blood pressure 118 mm[Hg] Deborah Jose FACILITIES ADMINISTRATOR.SCIENCE PROFESSOR Work Phone: [facility] 12-10-2022 15:36-0400 Body mass index (BMI) [Ratio] 40.7 kg/m2 PA NA Garcia PA Work Phone: [facility] 12-10-2022 15:36-0400 Body weight 104.32 kg PA NA Garcia PA Work Phone: [facility] 12-10-2022 15:31-0400 Body height 160.02 cm PA NA Garcia PA Work Phone: [facility] 12-10-2022 15:31-0400 Body temperature 97.6 [degF] PA NA Garcia PA Work Phone: [facility] 12-10-2022 15:31-0400 Diastolic blood pressure 82 mm[Hg] PA NA Garcia PA Work Phone: [facility] 12-10-2022 15:31-0400 Heart rate 82 /min PA NA Garcia PA Work Phone: [facility] 12-10-2022 15:31-0400 Respiratory rate 16 /min PA NA Garcia PA Work Phone: [facility] 12-10-2022 15:31-0400 SaO2% (BldA) [Mass fraction] 99 % PA NA Garcia PA Work Phone: [facility] 12-10-2022 15:31-0400 Systolic blood pressure 117 mm[Hg] PA NA Garcia PA Work Phone: [facility] 11-21-2022 11:22-0400 Body weight 107.96 kg Clive Zuniga DO Work Phone: [facility] 11-17-2022 13:09-0400 Body weight 107.5 kg NA Garcia PA-C Work Phone: [facility] 11-17-2022 13:09-0400 Diastolic blood pressure 78 mm[Hg] NA Garcia PA-C Work Phone: [facility] 11-17-2022 13:09-0400 Heart rate 83 /min NA Garcia PA-C Work Phone: [facility] 11-17-2022 13:09-0400 Respiratory rate 16 /min NA Garcia PA-C Work Phone: [facility] 11-17-2022 13:09-0400 SaO2% (BldA) [Mass fraction] 97 % NA Garcia PA-C Work Phone: [facility] 11-17-2022 13:09-0400 Systolic blood pressure 120 mm[Hg] NA Garcia PA-C Work Phone: [facility] 09-13-2022 17:45-0400 Body temperature 98.2 [degF] [facility] 09-13-2022 17:45-0400 Diastolic blood pressure 79 mm[Hg] [facility] 09-13-2022 17:45-0400 Heart rate 74 /min [facility] 09-13-2022 17:45-0400 Respiratory rate 16 /min [facility] 09-13-2022 17:45-0400 SaO2% (BldA) [Mass fraction] 99 % [facility] 09-13-2022 17:45-0400 Systolic blood pressure 145 mm[Hg] [facility] 09-13-2022 16:01-0400 Body height 160.02 cm [facility] 09-13-2022 16:01-0400 Body mass index (BMI) [Ratio] 41.4 kg/m2 [facility] 09-13-2022 16:01-0400 Body weight 106.14 kg [facility] 09-02-2022 16:53-0400 Body weight 105.23 kg NA Garcia PA-C Work Phone: [facility] 09-02-2022 16:53-0400 Diastolic blood pressure 72 mm[Hg] NA Garcia PA-C Work Phone: [facility] 09-02-2022 16:53-0400 Heart rate 77 /min NA Garcia PA-C Work Phone: [facility] 09-02-2022 16:53-0400 Respiratory rate 16 /min NA Garcia PA-C Work Phone: [facility] 09-02-2022 16:53-0400 SaO2% (BldA) [Mass fraction] 99 % NA Garcia PA-C Work Phone: [facility] 09-02-2022 16:53-0400 Systolic blood pressure 128 mm[Hg] NA Garcia PA-C Work Phone: [facility] 07-31-2022 17:22-0500 Body weight 102.97 kg NA Garcia PA-C Work Phone: [facility] 07-31-2022 17:22-0500 Diastolic blood pressure 70 mm[Hg] NA Garcia PA-C Work Phone: [facility] 07-31-2022 17:22-0500 Heart rate 76 /min NA Garcia PA-C Work Phone: [facility] 07-31-2022 17:22-0500 SaO2% (BldA) [Mass fraction] 100 % NA Garcia PA-C Work Phone: [facility] 07-31-2022 17:22-0500 Systolic blood pressure 122 mm[Hg] NA Garcia PA-C Work Phone: [facility] 07-01-2022 07:52-0500 Body temperature 98.71 [degF] Zackery Sotomayor APRN.SCIENCE PROFESSOR Work Phone: [facility] 07-01-2022 07:52-0500 Body weight 101.33 kg Zackery Bran FACILITIES ADMINISTRATOR.SCIENCE PROFESSOR Work Phone: [facility] 07-01-2022 07:52-0500 Diastolic blood pressure 70 mm[Hg] Zackery Sotomayor FACILITIES ADMINISTRATOR.SCIENCE PROFESSOR Work Phone: [facility] 07-01-2022 07:52-0500 Heart rate 75 /min Zackery Sotomayor FACILITIES ADMINISTRATOR.SCIENCE PROFESSOR Work Phone: [facility] 07-01-2022 07:52-0500 Respiratory rate 18 /min Zackery Sotomayor FACILITIES ADMINISTRATOR.SCIENCE PROFESSOR Work Phone: [facility] 07-01-2022 07:52-0500 SaO2% (BldA) [Mass fraction] 99 % Zackery Sotomayor FACILITIES ADMINISTRATOR.SCIENCE PROFESSOR Work Phone: [facility] 07-01-2022 07:52-0500 Systolic blood pressure 108 mm[Hg] Zackery Sotomayor FACILITIES ADMINISTRATOR.SCIENCE PROFESSOR Work Phone: [facility] 02-18-2022 11:29-0400 Body weight 95.25 kg NA Garcia PA-C Work Phone: [facility] 02-18-2022 11:29-0400 Diastolic blood pressure 78 mm[Hg] NA Garcia PA-C Work Phone: [facility] 02-18-2022 11:29-0400 Heart rate 73 /min NA Garcia PA-C Work Phone: [facility] 02-18-2022 11:29-0400 Respiratory rate 16 /min NA Garcia PA-C Work Phone: [facility] 02-18-2022 11:29-0400 SaO2% (BldA) [Mass fraction] 98 % NA Garcia PA-C Work Phone: [facility] 02-18-2022 11:29-0400 Systolic blood pressure 110 mm[Hg] NA Garcia PA-C Work Phone: [facility] 01-16-2022 14:36-0400 Body weight 93.89 kg NA Garcia PA-C Work Phone: [facility] 01-16-2022 14:36-0400 Diastolic blood pressure 72 mm[Hg] NA Garcia PA-C Work Phone: [facility] 01-16-2022 14:36-0400 Heart rate 77 /min NA Garcia PA-C Work Phone: [facility] 01-16-2022 14:36-0400 Respiratory rate 16 /min NA Garcia PA-C Work Phone: [facility] 01-16-2022 14:36-0400 SaO2% (BldA) [Mass fraction] 99 % NA Garcia PA-C Work Phone: [facility] 01-16-2022 14:36-0400 Systolic blood pressure 112 mm[Hg] NA Garcia PA-C Work Phone: [facility] 12-17-2021 14:58-0400 Body height 158 cm Deborah Ojo Feliz FACILITIES ADMINISTRATOR.SCIENCE PROFESSOR Work Phone: [facility] 12-17-2021 14:58-0400 Body weight 93.89 kg Deborah Jose FACILITIES ADMINISTRATOR.SCIENCE PROFESSOR Work Phone: [facility] 12-17-2021 14:58-0400 Diastolic blood pressure 74 mm[Hg] Deborah Ojo Feliz FACILITIES ADMINISTRATOR.SCIENCE PROFESSOR Work Phone: [facility] 12-17-2021 14:58-0400 Systolic blood pressure 116 mm[Hg] Deborah Jose FACILITIES ADMINISTRATOR.SCIENCE PROFESSOR Work Phone: [facility] 10-24-2021 14:56-0400 Body weight 92.9 kg Deborah Ojo Feliz FACILITIES ADMINISTRATOR.SCIENCE PROFESSOR Work Phone: [facility] 10-24-2021 14:56-0400 Diastolic blood pressure 70 mm[Hg] Deborah Jose FACILITIES ADMINISTRATOR.SCIENCE PROFESSOR Work Phone: [facility] 10-24-2021 14:56-0400 Systolic blood pressure 120 mm[Hg] Deborah Jose FACILITIES ADMINISTRATOR.SCIENCE PROFESSOR Work Phone: [facility] 10-07-2021 07:46-0400 Body temperature 97.59 [degF] Leticia Kavita FACILITIES ADMINISTRATOR.SCIENCE PROFESSOR Work Phone: [facility] 10-07-2021 07:46-0400 Body weight 93.89 kg Leticia Kavita FACILITIES ADMINISTRATOR.SCIENCE PROFESSOR Work Phone: [facility] 10-07-2021 07:46-0400 Diastolic blood pressure 68 mm[Hg] Leticia Kavita FACILITIES ADMINISTRATOR.SCIENCE PROFESSOR Work Phone: [facility] 10-07-2021 07:46-0400 Heart rate 80 /min Leticia Kavita FACILITIES ADMINISTRATOR.SCIENCE PROFESSOR Work Phone: [facility] 10-07-2021 07:46-0400 Respiratory rate 16 /min Leticia Kavita FACILITIES ADMINISTRATOR.SCIENCE PROFESSOR Work Phone: [facility] 10-07-2021 07:46-0400 SaO2% (BldA) [Mass fraction] 99 % Leticia Espinozak FACILITIES ADMINISTRATOR.SCIENCE PROFESSOR Work Phone: [facility] 10-07-2021 07:46-0400 Systolic blood pressure 110 mm[Hg] Leticia Espinozak FACILITIES ADMINISTRATOR.SCIENCE PROFESSOR Work Phone: [facility] Encounters Encounter Date Encounter Type Care Provider Facility Start: 03-29-2025 End: 03-29-2025 ambulatory Bettina Suppan Facility[facility] Start: 03-27-2025 End: 03-27-2025 ambulatory BETTINA A SUPPAN Facility:[facility] Start: 03-22-2025 End: 03-22-2025 ambulatory Bettina Suppan Facility:[facility] Start: 03-21-2025 End: 03-21-2025 ambulatory Bettina Suppan Facility:[facility] Start: 03-17-2025 ambulatory Bettina Suppan Facil ity:[facility] Start: 03-16-2025 ambulatory BETTINA A SUPPAN Fac ility:[facility] Start: 03-16-2025 End: 03-16-2025 ambulatory BETTINA A SUPPAN Facility:[facility] Start: 03-16-2025 Encounter for gynecological examination (general) (routine) without abnormal findings DEBORAH WHITTAKER [facility] Start: 02-23-2025 End: 02-23-2025 ambulatory ANAHI DOWNS Facility:[facility] Start: 02-21-2025 End: 02-21-2025 ambulatory BETTINA A SUPPAN Facility:[facility] Start: 02-21-2025 End: 02-21-2025 ambulatory BERNADETTE WINTERS Facility:[facility] Start: 02-08-2025 End: 02-08-2025 Patient encounter procedure Lauren Medellin FACILITIES ADMINISTRATOR.SCIENCE PROFESSOR Work Phone: [facility] [place] Comment on above: Rhinosinusitis (Prim deniz Dx); URI, acute; Exposure to communicable disease Start: 02-08-2025 End: 02-08-2025 ambulatory LAUREN MEDELLIN Facility:[facility] Start: 02-01-2025 End: 02-01-2025 Patient encounter procedure Maritakofi Alicea FACILITIES ADMINISTRATOR.SCIENCE PROFESSOR Work Phone: [facility] Comment on above: Viral upper respirat ory infection (Primary Dx) Start: 02-01-2025 End: 02-02-2025 ambulatory BETTINA A SUPPAN Facility:[facility] Start: 01-31-2025 End: 01-31-2025 Office outpatient visit 15 minutes Bettina A Suppan FACILITIES ADMINISTRATOR.SCIENCE PROFESSOR Work Phone: [facility] [place] Comment on above: Fibromyalgia (Primar y Dx); Dizziness; Cervicothoracic somatic dysfunction; Headache, unspecified headache type Start: 01-31-2025 End: 01-31-2025 ambulatory BETTINA A SUPPAN Facility:[facility] Start: 01-30-2025 ambulatory Bettina Suppan Facil ity:[facility] Start: 01-25-2025 ambulatory [facility] Facility: [facility] Start: 01-25-2025 End: 01-25-2025 Subsequent hospital visit by physician Antonietta Gonzalez MD Work Phone: [facility] Endoscopy Comment on above: Abdominal bloating [ R14.0] Start: 01-23-2025 End: 01-24-2025 ambulatory Jennifer Pack FACILITIES ADMINISTRATOR.SCIENCE PROFESSOR Work Phone: Gastroenterology Comment on above: Xray Start: 01-20-2025 End: 01-26-2025 ambulatory Bettina A Suppan FACILITIES ADMINISTRATOR.SCIENCE PROFESSOR Work Phone: [facility] Comment on above: Cymbalta withdrawal question Start: 01-17-2025 ambulatory BETTINA A SUPPAN Fac ility:[facility] Start: 01-17-2025 End: 01-17-2025 Subsequent hospital visit by physician Xr [facility] [place] Work Phone: Radiology Comment on above: Flatus [R14.3] Start: 01-17-2025 End: 01-17-2025 Telemedicine consultation with patient Jennifer Pack FACILITIES ADMINISTRATOR.SCIENCE PROFESSOR Work Phone: Gastroenterology Start: 01-17-2025 End: 01-17-2025 ambulatory Jennifer Pack FACILITIES ADMINISTRATOR.SCIENCE PROFESSOR Work Phone: Gastroenterology Comment on above: Abdominal bloating ( Primary Dx); Flatus; Gastroesophageal reflux disease without esophagitis; Right upper quadrant abdominal pain Start: 01-17-2025 End: 01-17-2025 Office outpatient visit 25 minutes Bettina A Suppan FACILITIES ADMINISTRATOR.SCIENCE PROFESSOR Work Phone: [facility] Comment on above: Acute left-sided low back pain without sciatica (Primary Dx); Diarrhea, unspecified type; Flatus; Gastroesophageal reflux disease without esophagitis; Right upper quadrant abdominal pain; Severe recurrent major depression without psychotic features ([facility]); Headache, unspecified headache type; Dizziness Start: 01-17-2025 End: 01-17-2025 ambulatory BETTINA A SUPPAN Facility:[facility] Start: 01-17-2025 ambulatory Bettina Suppan Facil ity:[facility] Start: 01-12-2025 End: 01-12-2025 Patient encounter procedure Bernadette FOLEY Work Phone: [facility] [place] Comment on above: Allergic reaction, i nitial encounter (Primary Dx) Start: 01-12-2025 End: 01-12-2025 ambulatory BERNADETTE WINTERS Facility:[facility] Start: 01-10-2025 End: 01-10-2025 ambulatory Bettina Moisés Daisha FACILITIES ADMINISTRATOR.SCIENCE PROFESSOR Work Phone: [facility] [place] Comment on above: Vertigo PT Start: 01-10-2025 End: 01-10-2025 Telephone encounter Bettina Moisés Daisha FACILITIES ADMINISTRATOR.SCIENCE PROFESSOR Work Phone: [facility] [place] Comment on above: Patient Question Medication Problem Start: 01-09-2025 End: 01-10-2025 ambulatory Bettina Moisés Daisha FACILITIES ADMINISTRATOR.SCIENCE PROFESSOR Work Phone: [facility] [place] Comment on above: . Start: 01-09-2025 End: 01-09-2025 Follow-up encounter Bettina Fuentes FACILITIES ADMINISTRATOR.SCIENCE PROFESSOR Work Phone: [facility] [place] Comment on above: Meclizine follow up from yesterday message Start: 01-08-2025 End: 01-09-2025 ambulatory Bettina Moisés Daisha FACILITIES ADMINISTRATOR.SCIENCE PROFESSOR Work Phone: Family [facility] [place] Comment on above: vertigo, meclizine Start: 01-07-2025 End: 01-07-2025 Emergency department patient visit Bettina Suppcharles SMOG TECHNICIAN Work Phone: -Emergency Department Work Phone: Start: 01-06-2025 End: 01-09-2025 Refill Anahi Downs APRN.SCIENCE PROFESSOR Work Phone: Psychiatry Comment on above: Refill Request Start: 01-05-2025 Registered Recurring Self Referred - Physical Therapy Work Phone: Start: 12-11-2024 End: 12-12-2024 Refill Anahi Downs APRN.SCIENCE PROFESSOR Work Phone: Psychiatry Comment on above: Refill Request Start: 11-09-2024 End: 11-09-2024 Telephone encounter Bettina Fuentes FACILITIES ADMINISTRATOR.SCIENCE PROFESSOR Work Phone: Family [facility] [place] Comment on above: Patient Update Start: 10-31-2024 End: 10-31-[address] Tung Edwards MD -[facility] Start: 10-31-2024 End: 10-31-2024 ambulatory Bettina Suppan SMOG TECHNICIAN Work Phone: [facility] Work Phone: Start: 10-31-2024 Registered Recurring Self Referred - Physical Therapy Work Phone: Start: 10-14-2024 End: 10-14-2024 ambulatory BETTINA FUENTES Facility:[facility] Start: 10-11-2024 End: 10-11-2024 ambulatory ANAHI DOWNS Facility:[facility] Start: 10-05-2024 End: 10-05-[address] Corey Tristan MD Work Phone: [facility] Work Phone: Start: 10-05-2024 End: 10-05-2024 Discharged Recurring Bettina Suppan SMOG TECHNICIAN -Physical Therapy Work Phone: Start: 09-13-2024 End: 09-13-[address] Jermaine Levy MD -[facility] Work Phone: Start: 09-13-2024 End: 09-13-2024 ambulatory Jermaine Levy Facility:[facility] Start: 09-06-2024 End: 09-06-[address] Jermaine Levy MD -[facility] Work Phone: Start: 09-06-2024 End: 09-06-2024 ambulatory Bettina Fuentes Facility:[facility] Start: 08-30-2024 End: 08-30-2024 Telemedicine consultation with patient Anahi Downs SCIENCE PROFESSOR Work Phone: Psychiatry Start: 08-30-2024 End: 08-30-2024 Telephone encounter Anahi Himanshu POMPASCIENCE PROFESSOR Work Phone: Psychiatry Comment on above: Appointment Major depressive dis order, recurrent episode, moderate (HCC) (Primary Dx); Anxiety disorder, unspecified type; Panic attack; Encounter for long-term current use of medication Start: 08-30-2024 End: 08-30-[address] Jermaine Levy MD -[facility] Work Phone: Start: 08-30-2024 End: 08-30-2024 ambulatory Bettina Fuentes Facility:[facility] Start: 08-18-2024 Registered Recurring Mehnaz Fuentes SMOG TECHNICIAN -Physical Therapy Work Phone: Start: 08-16-2024 End: 08-16-2024 Refill Anahi Downs APRN.SCIENCE PROFESSOR Work Phone: Psychiatry Comment on above: Refill Request Start: 08-14-2024 End: 08-16-2024 Refill Anahi Downs FACILITIES ADMINISTRATOR.SCIENCE PROFESSOR Work Phone: Psychiatry Comment on above: Refill Request Start: 08-14-2024 End: 08-16-2024 Refill Anahi Downs FACILITIES ADMINISTRATOR.SCIENCE PROFESSOR Work Phone: Psychiatry Comment on above: Refill Request Start: 08-10-2024 End: 08-10-2024 ambulatory ASHLEE LEE Facility:[facility] Start: 08-10-2024 End: 08-10-2024 Patient encounter procedure Ashlee Lee APRN.SCIENCE PROFESSOR Work Phone: General Surgery Comment on above: Infected sebaceous c yst (Primary Dx) Start: 08-09-2024 End: 08-09-2024 Telephone encounter Bettina Fuentes APRN.SCIENCE PROFESSOR Work Phone: [facility] [place] Start: 08-08-2024 End: 08-08-2024 ambulatory BETTINA FUENTES Facility:[facility] Start: 08-08-2024 End: 08-08-2024 Office outpatient visit 15 minutes Bettina Fuentes APRN.SCIENCE PROFESSOR Work Phone: [facility] Comment on above: BPPV (benign paroxys mal positional vertigo), unspecified laterality (Primary Dx); Orthostasis Start: 08-04-2024 End: 08-04-2024 Follow-up encounter Nader Calvillo MD Work Phone: General Surgery Comment on above: Cyst removal followu p Start: 08-04-2024 End: 08-04-2024 Patient encounter procedure Ashlee Lee APRN.SCIENCE PROFESSOR Work Phone: General Surgery Comment on above: Infected sebaceous c yst (Primary Dx) Start: 08-04-2024 End: 08-04-2024 ambulatory Nader Calvillo MD Work Phone: General Surgery Start: 08-02-2024 End: 08-02-2024 ambulatory BETTINA A SUPPAN Facility:[facility] Start: 08-02-2024 End: 08-02-2024 Patient encounter procedure Nader Calvillo MD Work Phone: General Surgery Comment on above: Infected sebaceous c yst (Primary Dx); Epidermal inclusion cyst Start: 08-01-2024 End: 08-01-2024 ambulatory BTETINA A SUPPAN Facility:[facility] Start: 08-01-2024 End: 08-01-2024 Office outpatient visit 15 minutes Bettina A Suppan FACILITIES ADMINISTRATOR.SCIENCE PROFESSOR Work Phone: [facility] [place] Comment on above: Epidermal inclusion cyst (Primary Dx) Start: 08-01-2024 End: 08-01-2024 Telephone encounter Lillie Bautista PA-C Work Phone: [facility] Comment on above: Patient Update Start: 07-29-2024 End: 08-01-2024 ambulatory Bettina A Suppan FACILITIES ADMINISTRATOR.SCIENCE PROFESSOR Work Phone: [facility] [place] Comment on above: FMLA Start: 07-25-2024 End: 07-25-2024 Patient encounter procedure Lillie Bautista PA-C Work Phone: [facility] Comment on above: Inflamed sebaceous c yst (Primary Dx) Refill Request Start: 07-25-2024 End: 07-25-2024 ambulatory LILLIE BAUTISTA Facility:[id number] Start: 07-21-2024 End: 07-22-2024 ambulatory Bettina A Suppan FACILITIES ADMINISTRATOR.SCIENCE PROFESSOR Work Phone: [facility] [place] Comment on above: Time off work Start: 07-21-2024 End: 07-21-2024 Office outpatient visit 25 minutes Bettina A Suppan FACILITIES ADMINISTRATOR.SCIENCE PROFESSOR Work Phone: [facility] Comment on above: Viral upper respirat ory [...] 07-16-2024 End: 07-16-2024 ambulatory BETTINA A SUPPAN Facility:[facility] Start: 07-16-2024 End: 07-16-2024 Patient encounter procedure Bernadette Winters PA Work Phone: [facility] Comment on above: Sore throat (Primary Dx); Rash Start: 07-15-2024 End: 07-15-2024 Patient encounter procedure Lester Hilton PA -[facility] Work Phone: Start: 07-15-2024 End: 07-15-2024 ambulatory Lester FOLEY Facility:[facility] Start: 07-15-2024 End: 07-15-[address] Roc Goldman DO -[facility] Start: 07-15-2024 End: 07-15-2024 ambulatory Roc Goldman Facility:[facility] Start: 06-28-2024 End: 06-28-2024 Emergency department patient visit Bo Fontenot DO -Emergency Department Work Phone: Start: 06-27-2024 End: 06-27-2024 Emergency department patient visit Dr. Corey Tristan MD -Emergency Department Work Phone: Start: 06-06-2024 End: 06-06-2024 Refill Anahi Downs APRN.SCIENCE PROFESSOR Work Phone: Psychiatry Comment on above: Refill Request Start: 05-08-2024 End: 05-09-2024 Refill Anahi Downs FACILITIES ADMINISTRATOR.SCIENCE PROFESSOR Work Phone: Psychiatry Comment on above: Refill Request Start: 05-03-2024 End: 05-03-2024 Office outpatient visit 15 minutes Bettinaharsha Fuentes FACILITIES ADMINISTRATOR.SCIENCE PROFESSOR Work Phone: [facility] [place] Comment on above: Dysuria (Primary Dx) ; Diverticulitis; Phlebitis Start: 05-03-2024 End: 05-03-2024 ambulatory BETTINA A SUPPAN Facility:[facility] Start: 04-28-2024 End: 04-29-2024 Telephone encounter Geronimo Estrada MD Work Phone: [facility] Comment on above: Results (Urine Cx mi xed) Start: 04-27-2024 End: 04-27-2024 ambulatory BETTINA A SUPPAN Facility:[facility] Start: 04-27-2024 End: 04-27-2024 Office outpatient visit 25 minutes Geronimo Estrada MD Work Phone: [facility] Comment on above: Urinary frequency (P rimary Dx) Start: 04-16-2024 End: 04-16-2024 Subsequent hospital visit by physician [facility] [place] Work Phone: Radiology Comment on above: Other fatigue [R53.8 3] Start: 04-16-2024 End: 04-16-2024 ambulatory ESTHELA KELVIN GARCIA Facility:[facility] Start: 04-16-2024 End: 04-16-2024 Patient encounter procedure Edna Courtney FACILITIES ADMINISTRATOR.SCIENCE PROFESSOR Work Phone: [facility] Comment on above: Other fatigue (Prima ry Dx) Start: 04-14-2024 End: 04-14-2024 ambulatory No Pcp FACILITIES ADMINISTRATOR Appointment Center Start: 04-14-2024 End: 04-14-2024 Patient encounter procedure No Pcp FACILITIES ADMINISTRATOR Appointment Center Start: 04-12-2024 End: 04-12-2024 ambulatory ESTHELA MIRANDAORY JOSE Facility:[facility] Start: 04-12-2024 End: 04-12-2024 Patient encounter procedure Bernadette FOLEY Work Phone: [facility] Comment on above: Sinobronchitis (Prim deniz Dx); Sore throat Start: 04-11-2024 End: 04-11-2024 ambulatory Mandie FOLEY Facility:[facility] Start: 04-07-2024 End: 04-07-2024 ambulatory No Pcp FACILITIES ADMINISTRATOR Appointment Center Start: 04-07-2024 End: 04-07-2024 Patient encounter procedure No Pcp FACILITIES ADMINISTRATOR Appointment Center Start: 03-15-2024 End: 03-15-2024 ambulatory Mandie Garcia PA-C Work Phone: [facility] [place] Comment on above: MRI denial Start: 03-02-2024 End: 03-02-2024 Refill Anahi Downs APRN.CNP Work Phone: Psychiatry Comment on above: Refill Request Start: 02-24-2024 End: 02-24-2024 ambulatory Anahi Downs APRN.SCIENCE PROFESSOR Work Phone: Psychiatry Comment on above: NO SHOW (Primary Dx) Start: 02-24-2024 End: 02-24-2024 Telemedicine consultation with patient Anahikimber Downs SCIENCE PROFESSOR Work Phone: Psychiatry Start: 02-15-2024 End: 02-15-2024 Patient encounter procedure Ashlee Lee APRN.SCIENCE PROFESSOR Work Phone: General Surgery Comment on above: Diarrhea, unspecifie d type (Primary Dx) Start: 02-08-2024 End: 02-08-2024 Patient encounter procedure Deborah Whittaker APRN.SCIENCE PROFESSOR Work Phone: OB/Gynecology Comment on above: Encounter for gyneco logical examination (general) (routine) without abnormal findings (Primary Dx); Encounter for screening mammogram for breast cancer; Encounter for surveillance of contraceptive pills Start: 02-08-2024 End: 02-08-2024 Patient encounter status Deborah Whittaker APRN.SCIENCE PROFESSOR Work Phone: [facility] Start: 02-04-2024 End: 02-04-2024 ambulatory Mandie GARCIA Facility:[facility] Start: 02-03-2024 End: 02-03-2024 Telephone encounter Antonietta Gonzalez MD Work Phone: General Surgery Comment on above: Patient Question Start: 02-01-2024 End: 02-01-2024 Telemedicine consultation with patient Anahi Himanshu HUMPHREYS.SCIENCE PROFESSOR Work Phone: Psychiatry Start: 02-01-2024 End: 02-01-2024 Telephone encounter Anahi Downs APRN.SCIENCE PROFESSOR Work Phone: Psychiatry Comment on above: Appointment Major depressive dis order, recurrent episode, moderate (HCC) (Primary Dx); Anxiety disorder, unspecified type; Major depressive disorder, recurrent, moderate (HCC) Start: 01-27-2024 End: 01-27-2024 Admission to same day surgery center Ashleehubert Lee FACILITIES ADMINISTRATOR.SCIENCE PROFESSOR Work Phone: General Surgery Comment on above: Pre op question Start: 01-27-2024 End: 01-27-2024 ambulatory Ashleerashida Lee APRN.SCIENCE PROFESSOR Work Phone: General Surgery Start: 01-25-2024 End: 01-26-2024 Admission to same day surgery center Ashlee Lee FACILITIES ADMINISTRATOR.SCIENCE PROFESSOR Work Phone: General Surgery Comment on above: Colonoscopy Start: 01-25-2024 End: 01-26-2024 ambulatory Ashlee Lee FACILITIES ADMINISTRATOR.SCIENCE PROFESSOR Work Phone: General Surgery Start: 01-21-2024 End: 01-21-2024 Refill Anahi Downs APRN.SCIENCE PROFESSOR Work Phone: Psychiatry Comment on above: Refill Request Start: 01-19-2024 End: 01-19-2024 ambulatory Bettina Fuentes APRN.SCIENCE PROFESSOR Work Phone: [facility] [place] Comment on above: Fmla Start: 01-18-2024 End: 01-27-2024 Telephone encounter Mandie Garcia PA-C Work Phone: [facility] [place] Comment on above: FMLA Paperwork Start: 01-15-2024 End: 01-15-2024 Office outpatient visit 15 minutes Bettina Fuentes APRN.SCIENCE PROFESSOR Work Phone: [facility] [place] Comment on above: Fibromyalgia (Primar y Dx); Anxiety with depression; Strain of trapezius muscle, unspecified laterality, initial encounter; Cervical pain Start: 01-14-2024 End: 01-14-2024 ambulatory Faith Deluna APRN.SCIENCE PROFESSOR Work Phone: [facility] [place] Comment on above: FMLA Start: 01-13-2024 End: 02-15-2024 ambulatory Anahi Downs FACILITIES ADMINISTRATOR.SCIENCE PROFESSOR Work Phone: Psychiatry Comment on above: Depression worsened Refill Request Start: 01-07-2024 ambulatory Mandie Rushing on PA-C Work Phone: [facility] [place] Comment on above: Neck pain Start: 01-07-2024 Telephone encounter Mandie Garcia PA-C Work Phone: [facility] [place] Comment on above: fax pain management referral to Dr Rajput Start: 12-28-2023 End: 12-28-2023 Patient encounter procedure Ashlee Lee FACILITIES ADMINISTRATOR.SCIENCE PROFESSOR Work Phone: General Surgery Comment on above: Diarrhea, unspecifie d type (Primary Dx); Occult blood positive stool Start: 12-23-2023 Telephone encounter Faith rodriguez APRN.SCIENCE PROFESSOR Work Phone: [facility] [place] Comment on above: Results (Stool ) Start: 12-21-2023 Telephone encounter Faith rodriguez APRN.SCIENCE PROFESSOR Work Phone: [facility] [place] Comment on above: Results (Abdomen Xra y ) Start: 12-16-2023 End: 12-16-2023 Subsequent hospital visit by physician Xr [facility] Work Phone: Radiology Comment on above: Abdominal cramping [ R10.9] Start: 12-16-2023 End: 12-16-2023 Patient encounter procedure Faith Deluna APRN.SCIENCE PROFESSOR Work Phone: [facility] [place] Comment on above: Diarrhea, unspecifie d type (Primary Dx); Abdominal cramping Start: 11-30-2023 ambulatory Mandie Rushing on PA-C Work Phone: Family Medicine [place] Comment on above: Meclizine Start: 11-16-2023 Refill Anahi Feliz in FACILITIES ADMINISTRATOR.SCIENCE PROFESSOR Work Phone: Psychiatry Comment on above: Refill Request Start: 11-13-2023 End: 11-13-2023 Office outpatient visit 25 minutes Claudiawillow Finch FACILITIES ADMINISTRATOR.SCIENCE PROFESSOR Work Phone: [facility] [place] Comment on above: Nausea and vomiting, unspecified vomiting type (Primary Dx); Pain of upper abdomen; Iron deficiency anemia, unspecified iron deficiency anemia type Start: 09-16-2023 ambulatory No Pcp FACILITIES ADMINISTRATOR [facility] [place] Start: 09-16-2023 Patient encounter procedure No Pcp FACILITIES ADMINISTRATOR [facility] [place] Start: 08-28-2023 End: 08-28-2023 Subsequent hospital visit by physician [facility] Work Phone: Radiology Comment on above: Weight gain followin g gastric bypass surgery [R63.5, Z98.84] Start: 08-27-2023 Telephone encounter Faith princeof FACILITIES ADMINISTRATOR.SCIENCE PROFESSOR Work Phone: [facility] [place] Comment on above: Results (Xray ) Start: 08-21-2023 End: 08-21-2023 Subsequent hospital visit by physician Xr [facility] [place] Work Phone: Radiology Comment on above: Neck pain [M54.2] Start: 08-18-2023 Refill Clive C Ceti n DO Work Phone: General Surgery Start: 08-16-2023 Refill Anahi Feliz in FACILITIES ADMINISTRATOR.SCIENCE PROFESSOR Work Phone: Psychiatry Comment on above: Refill Request Start: 08-13-2023 End: 08-13-2023 Patient encounter procedure Mandie FOLEY-C Work Phone: [facility] [place] Comment on above: Pain in left arm (Pr imary Dx); Pain in left leg Start: 08-12-2023 ambulatory Clive C Ceti n DO Work Phone: General Surgery Comment on above: Why can t you respon d?! Start: 08-05-2023 Documentation procedure Mammog grayson Coordinator [facility] Start: 08-05-2023 Letter encounter Mammography Coordinator [facility] Start: 08-05-2023 End: 08-05-2023 Subsequent hospital visit by physician Screen Mammo [facility] Comment on above: Encounter for screen ing mammogram for breast cancer [Z12.31] Start: 08-03-2023 ambulatory Clive rothman DO Work Phone: General Surgery Comment on above: Gaining weight, pill s not effective Start: 08-03-2023 End: 08-03-2023 Patient encounter procedure Mandie Garcia PA-C Work Phone: [facility] [place] Comment on above: Somatic dysfunction of spine, cervical (Primary Dx) Start: 07-31-2023 End: 07-31-2023 Patient encounter procedure Mandie Garcia PA-C Work Phone: Family [facility] [place] Comment on above: Somatic dysfunction of spine, cervical (Primary Dx); Somatic dysfunction of rib; Somatic dysfunction of left side of chest wall Start: 07-16-2023 Refill Anahi Feliz in FACILITIES ADMINISTRATOR.SCIENCE PROFESSOR Work Phone: Psychiatry Comment on above: Refill Request Start: 04-29-2023 End: 04-29-2023 [facility] Anahi Downs FACILITIES ADMINISTRATOR.SCIENCE PROFESSOR Work Phone: Psychiatry Comment on above: Major depressive dis order, recurrent, moderate (HCC) (Primary Dx); Anxiety disorder, unspecified type 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 - O 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 Start: 04-26-2023 ambulatory Anahi Feliz in FACILITIES ADMINISTRATOR.SCIENCE PROFESSOR Work Phone: Psychiatry Comment on above: Need adjustment Start: 04-13-2023 End: 04-13-2023 Patient encounter procedure Clive Zuniga DO Work Phone: General Surgery Comment on above: Weight gain followin g gastric bypass surgery (Primary Dx) Start: 03-24-2023 End: 03-24-2023 Office outpatient visit 25 minutes Shashi Chahal FACILITIES ADMINISTRATOR.SCIENCE PROFESSOR Work Phone: [facility] Comment on above: Seasonal allergies ( Primary Dx) Start: 03-13-2023 End: 03-13-2023 Patient encounter procedure Mandie Garcia PA-C Work Phone: [facility] Comment on above: Somatic dysfunction of spine, cervical (Primary Dx); Somatic dysfunction of spine, thoracic Start: 02-19-2023 End: 02-19-2023 Patient encounter procedure Monse Catherine FACILITIES ADMINISTRATOR.SCIENCE PROFESSOR Work Phone: [facility] Comment on above: Bacterial sinusitis (Primary Dx); Other acute nonsuppurative otitis media of left ear, recurrence not specified; COVID-19 Start: 02-05-2023 End: 02-05-2023 Patient encounter procedure Deborah Whittaker FACILITIES ADMINISTRATOR.SCIENCE PROFESSOR Work Phone: OB/Gynecology Comment on above: Encounter for gyneco logical examination (general) (routine) without abnormal findings (Primary Dx); History of bilateral breast reduction surgery; Screening for cervical cancer; Encounter for screening for human papillomavirus (HPV); Encounter for screening mammogram for breast cancer; Encounter for surveillance of contraceptive pills; Hot flashes Start: 02-05-2023 End: 02-05-2023 Patient encounter status Deborah Whittaker FACILITIES ADMINISTRATOR.SCIENCE PROFESSOR Work Phone: [facility] Work Phone: Start: 01-14-2023 ambulatory Clive C Ceti n DO Work Phone: General Surgery Comment on above: Appt date Start: 12-30-2022 Refill Deborah Whittaker FACILITIES ADMINISTRATOR.SCIENCE PROFESSOR Work Phone: OB/Gynecology Comment on above: Refill Request; Refi ll Request Start: 12-20-2022 Refill Anahi Feliz in FACILITIES ADMINISTRATOR.SCIENCE PROFESSOR Work Phone: Psychiatry Comment on above: Refill Request Start: 12-16-2022 End: 12-16-2022 Patient encounter procedure OG FOLEY Work Phone: [facility] Work Phone: Start: 12-13-2022 End: 12-13-2022 ambulatory PA Mandie FOLEY Work Phone: [facility] Work Phone: Start: 12-13-2022 End: 12-13-2022 Patient encounter procedure OG FOLEY Work Phone: [facility] Work Phone: Start: 12-10-2022 End: 12-10-2022 Emergency department patient visit OG FOLEY Work Phone: [facility]-Emergency Department Work Phone: Start: 12-06-2022 Refill Anahi Feliz in FACILITIES ADMINISTRATOR.[facility] Work Phone: Psychiatry Comment on above: Refill Request Start: 11-28-2022 End: 11-28-2022 Patient encounter procedure OG FOLEY Work Phone: [facility] Work Phone: Start: 11-26-2022 Registered Recurring OG Paez Work Phone: [facility] Start: 11-21-2022 End: 11-21-2022 Admission to same day surgery center Clive Zuniga Work Phone: General Surgery Comment on above: Weight gain followin g gastric bypass surgery (Primary Dx) Start: 11-21-2022 End: 11-21-2022 Telemedicine consultation with patient Clive Zuniga DO Work Phone: [facility] Start: 11-20-2022 ambulatory Mandie Rushing on PA-C Work Phone: Family Medicine [place] Comment on above: Knee pain Start: 11-19-2022 ambulatory Mandie Rushing on PA-C Work Phone: [facility] [place] Start: 11-17-2022 End: 11-17-2022 Patient encounter procedure Mandie Garcia PA-C Work Phone: Family [facility] [place] Comment on above: Pes marcelo merino s (Primary Dx); Somatic dysfunction of cervical region; Somatic dysfunction of spine, thoracic Start: 11-03-2022 End: 11-03-2022 Subsequent hospital visit by physician Nicole [facility] Work Phone: Radiology Comment on above: Acute pain of left k chandnie [M25.562] Start: 10-03-2022 Refill Deborah Josebrendan HUMPHREYS.SCIENCE PROFESSOR Work Phone: OB/Gynecology Comment on above: Refill Request Start: 09-18-2022 End: 09-18-2022 Telemedicine consultation with patient Anahi Downs PETR.SCIENCE PROFESSOR Work Phone: [facility] Start: 09-18-2022 ambulatory Clive rothman DO Work Phone: General Surgery Comment on above: Weight gain followin g gastric bypass 2 years out Start: 09-18-2022 End: 09-18-2022 Telephone encounter Anahi Downs APRN.SCIENCE PROFESSOR Work Phone: Psychiatry Comment on above: Appointment Anxiety disorder, un specified type (Primary Dx); Recurrent major depressive disorder, in full remission (HCC) Start: 09-13-2022 End: 09-13-2022 Emergency department patient visit [facility]gency [facility] Start: 09-11-2022 Patient Msg Anahi Feliz in FACILITIES ADMINISTRATOR.SCIENCE PROFESSOR Work Phone: Psychiatry Comment on above: Medication Refill Start: 09-02-2022 End: 09-02-2022 Patient encounter procedure Mandie Garica PA-C Work Phone: [facility] Comment on above: Somatic dysfunction of spine, cervical (Primary Dx); Somatic dysfunction of spine, thoracic; Lightheadedness Start: 08-15-2022 Refill Anahi Feliz in FACILITIES ADMINISTRATOR.SCIENCE PROFESSOR Work Phone: Psychiatry Comment on above: Refill Request Start: 07-31-2022 End: 07-31-2022 Patient encounter procedure Mandie Garcia PA-C Work Phone: [facility] Comment on above: Cervicothoracic soma tic dysfunction (Primary Dx) Start: 07-01-2022 End: 07-01-2022 Patient encounter procedure Zackery Sotomayor FACILITIES ADMINISTRATOR.SCIENCE PROFESSOR Work Phone: [facility] Comment on above: Sinus pressure (Prim deniz Dx) Start: 04-23-2022 Telephone encounter Shashi tyler FACILITIES ADMINISTRATOR.SCIENCE PROFESSOR Work Phone: [facility] [facility] Comment on above: Results Start: 04-23-2022 End: 04-23-2022 Subsequent hospital visit by physician Xr [facility] Work Phone: Radiology Comment on above: Acute cough [R05.1] Start: 03-03-2022 Refill Mandie Rushing on PA-C Work Phone: Family [facility] [place] Comment on above: Refill Request Start: 03-03-2022 Refill Mandie Kelvinhany Rushing on PA-C Work Phone: Family [facility] [place] Comment on above: Med Change Request Start: 02-20-2022 ambulatory Mandie Rushing on PA-C Work Phone: [facility] Comment on above: Medicine not helping Start: 02-20-2022 Follow-up encounter Mandie Rushingon PA-C Work Phone: [facility] [place] Comment on above: Follow up Start: 02-18-2022 End: 02-18-2022 Patient encounter procedure Mandie Kelvinhany Garcia PA-C Work Phone: [facility] [place] Comment on above: Neck sprain, initial encounter (Primary Dx); Cervicothoracic somatic dysfunction Start: 02-14-2022 Refill Mandie Rushing on PA-C Work Phone: [facility] [place] Comment on above: Med Change Request Start: 02-03-2022 Refill Mandie Kelvinhany Rushing on PA-C Work Phone: [facility] [place] Comment on above: Refill Request Refill question Start: 01-16-2022 End: 01-16-2022 Patient encounter procedure Mandie Kelvin Garcia PA-C Work Phone: Family Medicine [place] Comment on above: TMJ syndrome (Primar y Dx); Muscle tension headache; Cervicothoracic somatic dysfunction Start: 01-09-2022 Refill Deborah Jose FACILITIES ADMINISTRATOR.[facility] Work Phone: OB/Gynecology Comment on above: Refill Request; Refi ll Request Start: 12-17-2021 End: 12-17-2021 Patient encounter procedure Deborah Ojo Feliz FACILITIES ADMINISTRATOR.[facility] Work Phone: OB/Gynecology Comment on above: Encounter for gyneco logical examination (general) (routine) without abnormal findings (Primary Dx); Encounter for surveillance of contraceptive pills; Encounter for screening mammogram for breast cancer; Vaginal discharge Start: 12-17-2021 End: 12-17-2021 Patient encounter status Deborah Ojo Feliz FACILITIES ADMINISTRATOR.[facility] Work Phone: OB/Gynecology Start: 11-25-2021 Refill Deborah Ojo Feliz FACILITIES ADMINISTRATOR.[facility] Work Phone: OB/Gynecology Comment on above: Refill Request Start: 11-21-2021 End: 11-21-2021 [facility] Anahi Downs FACILITIES ADMINISTRATOR.[facility] Work Phone: Psychiatry Comment on above: Recurrent major depr essive disorder, in full remission (HCC) (Primary Dx); Anxiety disorder, unspecified type Start: 11-15-2021 Refill Anahi Feliz in FACILITIES ADMINISTRATOR.[facility] Work Phone: Psychiatry Comment on above: Refill Request [employer] Start: 11-09-2021 Refill Deborah Jose FACILITIES ADMINISTRATOR.[facility] Work Phone: OB/Gynecology Comment on above: Refill Request Start: 10-24-2021 End: 10-24-2021 Patient encounter procedure Deborah Ojo Feliz FACILITIES ADMINISTRATOR.[facility] Work Phone: OB/Gynecology Comment on above: Vaginal discharge (P rimary Dx); Dysuria Start: 10-15-2021 Refill Anahi Feliz in FACILITIES ADMINISTRATOR.[facility] Work Phone: Psychiatry Comment on above: Refill Request Start: 10-13-2021 Refill Mandie OROZCOC Work Phone: [facility] Comment on above: Refill Request Start: 10-07-2021 End: 10-07-2021 Subsequent hospital visit by physician Xr [facility] Work Phone: Radiology Comment on above: Injury of right foot , initial encounter [S99.921A] Start: 10-07-2021 End: 10-07-2021 Patient encounter procedure Leticia Walls FACILITIES ADMINISTRATOR.SCIENCE PROFESSOR Work Phone: [facility] Comment on above: Injury of right foot , initial encounter (Primary Dx); Foot pain, right Start: 09-23-2021 Refill Anahi Madridwilmer in FACILITIES ADMINISTRATOR.SCIENCE PROFESSOR Work Phone: Psychiatry Comment on above: Refill Request Start: 08-14-2021 Refill Mandie Rushing on PA-C Work Phone: [facility] Comment on above: Refill Request Start: 03-08-2021 End: 03-08-2021 Subsequent hospital visit by physician Xr [facility] Work Phone: Radiology Comment on above: Bronchitis due to [place] VID-19 virus [U07.1, J40] Start: 10-29-2020 End: 10-29-2020 Subsequent hospital visit by physician Xr [facility] Work Phone: Radiology Comment on above: Acute pain of left k nee [M25.562] Start: 04-13-2020 End: 04-13-2020 Subsequent hospital visit by physician Xr [facility] Work Phone: Radiology Comment on above: Acute pain of left s houlder [M25.512] Procedures Date Procedure Procedure Detail Performing Clinician Start: 02-08-2025 Iadna streptococcus group a amplified probe tq Lauren Max FACILITIES ADMINISTRATOR.SCIENCE PROFESSOR Work Phone: Start: 01-25-2025 Esophagogastroduodenoscopy transoral diagnostic Jennifer Pack FACILITIES ADMINISTRATOR.SCIENCE PROFESSOR Work Phone: Start: 01-17-2025 Lipid 1996 panel - Serum or Plasma Juan R Fuentes FACILITIES ADMINISTRATOR.SCIENCE PROFESSOR Work Phone: Start: 01-07-2025 CT angiography of head and neck German Fuentes SMOG TECHNICIAN Work Phone: Start: 01-07-2025 CT of head without contrast Bettina aaron SMOG TECHNICIAN Work Phone: Start: 01-07-2025 Estimated creatinine clearance Mehnaz Fuentes SMOG TECHNICIAN Work Phone: Start: 10-31-2024 X-ray of knee, four or more views Tonie Fuentes SMOG TECHNICIAN Work Phone: Start: 07-18-2024 Plain chest X-ray Dr. Corey Tristan MD Work Phone: Start: 07-18-2024 CT of head without contrast Dr. Corey gold MD Work Phone: Start: 07-18-[address] Corey aguilar MD Work Phone: Start: 07-18-2024 Measurement of renal function Dr. Corey enriquez MD Work Phone: Comment on above: GFR Calc Start: 07-18-2024 Urnls dip stick/tablet reagent auto microscopy Dr. Corey Tristan MD Work Phone: Start: 07-18-2024 Streptococcus pyogenes rRNA assay Dr. Vern Tristan MD Work Phone: Start: 07-16-2024 STREP A MOLECULAR (POC) Bernadette FOLEY Work Phone: Start: 07-15-2024 Sars-cov-2 Dr. Corey Tristan MD Work Phone: Start: 06-27-2024 Urnls dip stick/tablet reagent auto microscopy Dr. Corey Tristan MD Work Phone: Start: 06-27-[address] Corey aguilar MD Work Phone: Start: 06-27-2024 Measurement of renal function Dr. Corey enriquez MD Work Phone: Comment on above: GFR Calc Start: 06-27-2024 CT of abdomen and pelvis without contrast Dr. Corey Tristan MD Work Phone: Start: 05-03-2024 Urnls dip stick/tablet rgnt auto w/o microscopy Bettina Fuentes FACILITIES ADMINISTRATOR.SCIENCE PROFESSOR Work Phone: Start: 04-27-2024 Urnls dip stick/tablet rgnt auto w/o microscopy Renetta Master Vega PA-C Work Phone: Start: 04-16-2024 Radiologic exam chest 2 views Edna Moomaw FACILITIES ADMINISTRATOR.SCIENCE PROFESSOR Work Phone: Start: 12-16-2023 Radiologic exam abdomen 1 view Faith Chavira nnhof FACILITIES ADMINISTRATOR.SCIENCE PROFESSOR Work Phone: Start: 08-28-2023 XR UPPER GI SINGLE CONTRAST Clive C Ce tin DO Work Phone: Start: 08-21-2023 Radex spine cervical 4 or 5 views Faith Stephensonhof FACILITIES ADMINISTRATOR.SCIENCE PROFESSOR Work Phone: Start: 08-05-2023 Screening mammography bi 2-view breast inc cad Bulk Order Provider Start: 12-13-2022 MRI of joint of lower extremity PA NA Ba rton PA Work Phone: Start: 12-10-2022 Radiologic examination of knee PA NA Bar ton PA Work Phone: Start: 11-28-2022 Radiologic examination of knee PA NA Bar ton PA Work Phone: Start: 11-03-2022 Radiologic exam knee complete 4/more views Parmjit Mobley MD Work Phone: Start: 09-13-2022 Plain chest X-ray Start: 04-23-2022 Radiologic exam chest 2 views Shashi tyler FACILITIES ADMINISTRATOR.SCIENCE PROFESSOR Work Phone: Start: 10-24-2021 Urnls dip stick/tablet rgnt auto w/o microscopy Deborah Whittaker FACILITIES ADMINISTRATOR.SCIENCE PROFESSOR Work Phone: Start: 10-07-2021 Radex foot complete minimum 3 views Leticia Walls FACILITIES ADMINISTRATOR.SCIENCE PROFESSOR Work Phone: Start: 03-08-2021 Radiologic exam chest 2 views Monse Catherine APRN.CNP Work Phone: Start: 10-29-2020 Radiologic exam knee complete 4/more views Monse Catherine APRN.CNP Work Phone: Start: 06-07-2020 Mammography NA Jose TRACEY Work Phone: Start: 04-13-2020 Radex shoulder complete minimum 2 views Parmjit Mobley MD Work Phone: Start: 11-23-2019 Lipid 1996 panel - Serum or Plasma No Pc p FACILITIES ADMINISTRATOR Start: 12-14-2018 Colonoscopy No Pcp FACILITIES ADMINISTRATOR History of reduction of breast H istory of bilateral breast reduction surgery Deborah Whittaker APRN.SCIENCE PROFESSOR Work Phone: Plan of Treatment Date Care Activity Detail Author Start: 11-26-2032 Urine microalbumin profile DTa P,Tdap,Td Vaccine (8 - Td or Tdap) [facility] Start: 01-17-2030 Lipid panel Lipid Screening [facility] Start: 02-06-2028 HPV Testing HPV Testing [facility] Start: 02-06-2028 Pap Testing Pap Testing [facility] Start: 02-06-2028 Screening for malign ant neoplasm of cervix [facility] Start: 11-12-2026 Diabetes Screening Diabetes Screenin g [facility] Start: 04-17-2025 End: 04-17-2025 Patient encounter procedure 04/17/2025 9:20 AM EST Office Visit [facility] [place] [address] [place] [address] Bettina Fuentes APRN.SCIENCE PROFESSOR [address] [place] [address] 3 month follow up GI, mood, pain, headache [facility] [place] Comment on above: 3 month follow up GI , mood, pain, headache Start: 04-04-2025 ambulatory Ambulatory Facility:[facility] Start: 02-21-2025 End: 02-21-2025 Patient encounter procedure 02/21/2025 9:00 AM EDT Office Visit Allergy [address] [facility] [address] [place], [place] [id number] Rupesh Poole, [address] [place] [address] Allergic reaction, initial encounter [T78.40XA] Allergy Comment on above: Allergic reaction, i nitial encounter [T78.40XA] Start: 01-25-2025 End: 01-25-2025 Patient encounter procedure 01/25/2025 11:30 AM EDT Appointment [facility] [address] [place] [address] Antonietta Gonzalez MD [address] [place] [id number] Natasha Jefferson FACILITIES ADMINISTRATOR.RN CARDIOVASCULAR ICU [address] [place] [address] EGD [facility] Comment on above: EGD Start: 01-23-2025 Influenza vaccination Influenza Vacc ine (#1) [facility] Start: 01-07-2025 [facility] Start: 01-07-2025 [facility] Start: 11-22-2024 Lipid panel Lipid Screening [facility] Start: 11-01-2024 End: 11-01-2024 Patient encounter procedure 11/01/2024 10:00 AM EDT Office Visit [facility] [place] [address] [place], [place] [id number] Bettina Fuentes, FACILITIES ADMINISTRATOR.SCIENCE PROFESSOR [address] [place], [place] [id number] 6 month exam [facility] [place] Comment on above: 6 month exam Start: 10-31-2024 X-ray of knee, four or more views Knee 4 or More Views [facility] Start: 10-31-2024 XR Knee GE 4 Views [facility] Start: 10-11-2024 End: 10-11-2024 Follow-up encounter 10/11/2024 10:30 AM EDT [facility] Psychiatry [address] [place] [address] Anahi Downs, FACILITIES ADMINISTRATOR.SCIENCE PROFESSOR [address] [place] [address] follow up Psychiatry Comment on above: follow up Start: 08-30-2024 End: 08-30-2024 Follow-up encounter 08/30/2024 2:00 PM EDT [facility] Psychiatry [address] [place] [address] Anahi Downs APRN.SCIENCE PROFESSOR [address] [place] [address] follow up Psychiatry Comment on above: follow up Start: 08-10-2024 End: 08-10-2024 Patient encounter procedure General Surgery Comment on above: 1 WK F/U DRAIN CYST 1 wk f/u back cyst e xicsion-RJ Start: 08-04-2024 Screening for malign ant neoplasm of breast Mammogram Screening [facility] Start: 08-02-2024 Covid-19 Vaccine () Covid-19 Vaccine () [facility] Comment on above: Postponed from 01/23 (Declined at this time) Start: 08-02-2024 End: 08-02-2024 Patient encounter procedure 08/02/2024 1:15 PM EDT Office Visit General Surgery [address] [place], [place] [address] Nader Calvillo MD [address] [place], [place] [id number] Back with inflamed cyst that is large grape sized, red, hot, and painful General Surgery Comment on above: Back with inflamed c yst that is large grape sized, red, hot, and painful Start: 08-01-2024 End: 08-01-2024 Patient encounter procedure [facility] Comment on above: Cyst check cyst on upper back taking antibiotics Start: 07-18-2024 [facility] Start: 07-15-2024 [facility] Start: 06-28-2024 [facility] Start: 06-27-2024 End: 06-27-2024 [facility] Start: 04-18-2024 End: 04-18-2024 Patient encounter procedure 04/18/2024 11:20 AM EST Office Visit Family [facility] [place] [address] [place] [address] Bettina Fuentes FACILITIES ADMINISTRATOR.SCIENCE PROFESSOR [address] [place] [address] 3 month f/u [facility] Comment on above: 3 month f/u Start: 2024 Screening for malign ant neoplasm of colon [facility] Start: 03-03-2024 HPV TESTING HPV TESTING [facility] Start: 03-03-2024 PAP TESTING PAP TESTING [facility] Start: 02-24-2024 End: 02-24-2024 ambulatory Psychiatry Start: 02-15-2024 End: 02-15-2024 Patient encounter procedure 02/15/2024 9:30 AM EDT Office Visit General Surgery [address] [place] [address] Ashlee Lee, FACILITIES ADMINISTRATOR.SCIENCE PROFESSOR [address] [place] [address] follow up, colonoscopy General Surgery Comment on above: follow up, colonosco py Start: 02-08-2024 End: 02-08-2024 Patient encounter procedure 02/08/2024 9:30 AM EDT Office Visit OB/Gynecology [address] [place] [address] Deborah Whittaker FACILITIES ADMINISTRATOR.SCIENCE PROFESSOR [address] [place] [address] ANNUAL OB/Gynecology Comment on above: ANNUAL Start: 02-04-2024 End: 02-04-2024 Patient encounter procedure LD SURGERY Comment on above: scheudled by office Start: 02-04-2024 End: 02-04-2024 Patient encounter procedure 02/04/2024 9:15 AM EDT Appointment LD SURGERY [address] [place] [address] Antonietta Gonzalez MD [address] [facility] [place] [id number] pt wants early am scheudled by office LD SURGERY Comment on above: pt wants early am sc heudled by office Start: 02-01-2024 End: 02-01-2024 Follow-up encounter 02/01/2024 10:30 AM EDT [facility] [address] [place] [address] Anahi Downs, FACILITIES ADMINISTRATOR.SCIENCE PROFESSOR [address] [place] [address] follow up Psychiatry Comment on above: follow up Start: 01-24-2024 Covid-19 Vaccine ( season) Covid-19 Vaccine ( season) [facility] Start: 01-24-2024 Covid-19 Vaccine ( season) Covid-19 Vaccine ( season) [facility] Start: 01-24-2024 Influenza vaccination Influenza Vacc ine (#1) [facility] Start: 12-28-2023 End: 12-28-2023 Patient encounter procedure 12/28/2023 1:00 PM EDT Office Visit General Surgery [address] [facility] [place] [address] Ashlee Lee APRN.SCIENCE PROFESSOR [address] [place] [address] Colonoscopy consultation General Surgery Comment on above: Colonoscopy consulta tion Start: 11-22-2023 Influenza vaccination Influenza Vacc ine (#1) [facility] Comment on above: Postponed from 01/23 (Declined at this time) Start: 11-13-2023 End: 02-12-2024 Comprehensive metabolic 2000 panel - Serum or Plasma [facility] Work Phone: Comment on above: Expected: 11/13/2023 , Expires: 02/12/2024 Start: 11-13-2023 End: 02-12-2024 Ferritin [Mass/volume] in Serum or Plasma [facility] Comment on above: Expected: 11/13/2023 , Expires: 02/12/2024 Start: 11-13-2023 End: 02-12-2024 Iron and Iron binding capacity panel - Serum or Plasma [facility] Comment on above: Expected: 11/13/2023 , Expires: 02/12/2024 Start: 11-13-2023 End: 02-12-2024 Lipase [Enzymatic activity/volume] in Serum or Plasma [facility] Comment on above: Expected: 11/13/2023 , Expires: 02/12/2024 Start: 11-13-2023 End: 02-12-2024 Magnesium [Mass/volume] in Serum or Plasma [facility] Comment on above: Expected: 11/13/2023 , Expires: 02/12/2024 Start: 09-03-2023 COVID-19 VACCINE (#1) COVID-19 VACCI NE (#1) [facility] Comment on above: Postponed from 09/18 (Declined at this time) Start: 09-03-2023 HEPATITIS B (1 of 3 - 3-dose series) HEPATITIS B (1 of 3 - 3-dose series) [facility] Comment on above: Postponed from 03/20 (Current Illness) Start: 09-03-2023 Hepatitis B Vaccine (1 of 3 - 19+ 3-dose series) Hepatitis B Vaccine (1 of 3 - 19+ 3-dose series) [facility] Comment on above: Postponed from 03/20 (Current Illness) Start: 09-03-2023 Hepatitis B Vaccine (1 of 3 - 3-dose series) Hepatitis B Vaccine (1 of 3 - 3-dose series) [facility] Comment on above: Postponed from 03/20 (Current Illness) Start: 09-03-2023 HEPATITIS C SCREENING HEPATITIS C [facility] Comment on above: Postponed from 03/20 (Declined at this time) Start: 09-03-2023 Hepatitis C screening Hepatitis C [facility] Comment on above: Postponed from 03/20 (Declined at this time) Start: 09-03-2023 HIV SCREENING HIV SCREENING [facility] Comment on above: Postponed from 03/20 (Declined at this time) Start: 09-03-2023 HIV screening HIV Screening [facility] Comment on above: Postponed from 03/20 (Declined at this time) Start: 09-03-2023 Urine microalbumin profile [facility] Comment on above: Postponed from 06/09 (Current Illness) Start: 02-05-2023 End: 04-07-2023 Estradiol (E2) [Mass/volume] in Serum or Plasma ESTRADIOL-17B BLD Lab Routine Hot flashes Expected: 02/05/2023, Expires: 04/07/2023 [facility] Work Phone: Comment on above: Expected: 02/05/2023 , Expires: 04/07/2023 Start: 02-05-2023 End: 04-07-2023 Follitropin [Units/volume] in Serum or Plasma FSH BLD Lab Routine Hot flashes Expected: 02/05/2023, Expires: 04/07/2023 [facility] Work Phone: Comment on above: Expected: 02/05/2023 , Expires: 04/07/2023 Start: 01-23-2023 Influenza vaccination [facility] Start: 11-21-2022 End: 01-21-2023 25-hydroxyvitamin D3 [Mass/volume] in Serum or Plasma VITAMIN D 25 HYDROXY Lab Routine Weight gain following gastric bypass surgery Expected: 11/21/2022, Expires: 01/21/2023 [facility] Work Phone: Comment on above: Expected: 11/21/2022 , Expires: 01/21/2023 Start: 11-21-2022 End: 01-21-2023 CBC W Auto Differential panel - Blood CBC + DIFF Lab Routine Weight gain following gastric bypass surgery Expected: 11/21/2022, Expires: 01/21/2023 [facility] Work Phone: Comment on above: Expected: 11/21/2022 , Expires: 01/21/2023 Start: 11-21-2022 End: 01-21-2023 Cobalamin (Vitamin B12) [Mass/volume] in Serum or Plasma VITAMIN B12 BLOOD Lab Routine Weight gain following gastric bypass surgery Expected: 11/21/2022, Expires: 01/21/2023 [facility] Work Phone: Comment on above: Expected: 11/21/2022 , Expires: 01/21/2023 Start: 11-21-2022 End: 01-21-2023 Comprehensive metabolic 2000 panel - Serum or Plasma COMP METABOLIC PANEL Lab Routine Weight gain following gastric bypass surgery Expected: 11/21/2022, Expires: 01/21/2023 [facility] Work Phone: Comment on above: Expected: 11/21/2022 , Expires: 01/21/2023 Start: 11-21-2022 End: 01-21-2023 Ferritin [Mass/volume] in Serum or Plasma FERRITIN BLD Lab Routine Weight gain following gastric bypass surgery Expected: 11/21/2022, Expires: 01/21/2023 [facility] Work Phone: Comment on above: Expected: 11/21/2022 , Expires: 01/21/2023 Start: 11-21-2022 End: 01-21-2023 Folate [Mass/volume] in Serum or Plasma FOLATE SERUM Lab Routine Weight gain following gastric bypass surgery Expected: 11/21/2022, Expires: 01/21/2023 [facility] Work Phone: Comment on above: Expected: 11/21/2022 , Expires: 01/21/2023 Start: 11-21-2022 End: 01-21-2023 Iron and Iron binding capacity panel - Serum or Plasma IRON + TIBC Lab Routine Weight gain following gastric bypass surgery Expected: 11/21/2022, Expires: 01/21/2023 [facility] Work Phone: Comment on above: Expected: 11/21/2022 , Expires: 01/21/2023 Start: 11-21-2022 End: 01-21-2023 Parathyrin.intact [Mass/volume] in Serum or Plasma PTH INTACT BLD Lab Routine Weight gain following gastric bypass surgery Expected: 11/21/2022, Expires: 01/21/2023 [facility] Work Phone: Comment on above: Expected: 11/21/2022 , Expires: 01/21/2023 Start: 11-21-2022 End: 01-21-2023 Thyrotropin [Units/volume] in Serum or Plasma TSH BLD Lab Routine Weight gain following gastric bypass surgery Expected: 11/21/2022, Expires: 01/21/2023 [facility] Work Phone: Comment on above: Expected: 11/21/2022 , Expires: 01/21/2023 Start: 11-21-2022 End: 01-21-2023 VITAMIN B1 (THIAMINE), WHOLE BLOOD VITAMIN B1 (THIAMINE), WHOLE BLOOD Lab Routine Weight gain following gastric bypass surgery Expected: 11/21/2022, Expires: 01/21/2023 [facility] Work Phone: Comment on above: Expected: 11/21/2022 , Expires: 01/21/2023 Start: 07-29-2022 COVID-19 VACCINE (#1) COVID-19 VACCI NE (#1) [facility] Comment on above: Postponed from 03/20 (Declined at this time) Postponed from 09/18 (Declined at this time) Start: 07-29-2022 COVID-19 VACCINE (1) COVID-19 VACCIN E (1) [facility] Comment on above: Postponed from 03/20 (Declined at this time) Start: 01-23-2022 Influenza vaccination C [facility] Start: 11-21-2021 Influenza vaccination INFLUENZA (#1) [facility] Comment on above: Postponed from 01/23 (Declined at this time) Start: 06-09-2021 Urine microalbumin profile DTA P,TDAP,TD (7 - Td or Tdap) [facility] Start: 06-07-2021 Mammography [facility] Start: 06-07-2021 Screening for malign ant neoplasm of breast Mammogram Screening [facility] Start: 2006 HPV Vaccine (1 - 3-d ose SCDM series) HPV Vaccine (1 - 3-dose SCDM series) [facility] Start: 1998 Hepatitis B Vaccine (1 of 3 - 19+ 3-dose series) Hepatitis B Vaccine (1 of 3 - 19+ 3-dose series) [facility] Start: 1997 HEPATITIS C SCREENING HEPATITIS C [facility] Start: 1997 Hepatitis C screening Hepatitis C [facility] Start: 1997 HIV SCREENING HIV SCREENING [facility] Start: 1997 HIV screening HIV Screening [facility] Start: 1979 COVID-19 VACCINE (#1) COVID-19 VACCI NE (#1) [facility] Start: 1979 HEPATITIS B (1 of 3 - 3-dose series) HEPATITIS B (1 of 3 - 3-dose series) [facility] Bacteria identified in Urine by Culture URINE CULTURE Microbiology Routine Urinary frequency Ordered: 04/27/2024 [facility] Work Phone: Comment on above: Ordered: 04/27/2024 Bacteria identified in Urine by Culture URINE CULTURE Microbiology Routine Dysuria 05/03/2024 4:46 PM EST [facility] Work Phone: BACTERIAL VAGINOSIS AMPLIFICATION BACTERIAL VAGINOSIS AMPLIFICATION Lab Routine Vaginal discharge 10/24/2021 3:24 PM EDT [facility] Work Phone: BACTERIAL VAGINOSIS AMPLIFICATION BACTERIAL VAGINOSIS AMPLIFICATION Lab Routine Vaginal discharge 12/17/2021 3:29 PM EDT [facility] Work Phone: THONY / TRICHOMONA S AMPLIFICATION THONY / TRICHOMONAS AMPLIFICATION Lab Routine Vaginal discharge 10/24/2021 3:24 PM EDT [facility] Work Phone: THONY / TRICHOMONA S AMPLIFICATION THONY / TRICHOMONAS AMPLIFICATION Lab Routine Vaginal discharge 12/17/2021 3:29 PM EDT [facility] Work Phone: Chlamydia trachomatis+Neisseria gonorrhoeae DNA [Presence] in Unspecified specimen by ELIZABETH with probe detection GC/CHLAMYDIA DNA DET Lab Routine Vaginal discharge 10/24/2021 3:24 PM EDT [facility] Work Phone: Chlamydia trachomatis+Neisseria gonorrhoeae DNA [Presence] in Unspecified specimen by ELIZABETH with probe detection GC/CHLAMYDIA DNA DET Lab Routine Vaginal discharge 12/17/2021 3:29 PM EDT [facility] Work Phone: Clostridioides diffi cile toxin genes [Presence] in Stool by ELIZBAETH with probe detection C. DIFFICILE PCR Lab Routine Diarrhea, unspecified type Ordered: 12/16/2023 [facility] Comment on above: Ordered: 12/16/2023 COVID & INFLUENZA A/ B & RSV PCR, ROUTINE COVID & INFLUENZA A/B & RSV PCR, ROUTINE Microbiology Routine Viral upper respiratory infection Ordered: 02/01/2025 [facility] Work Phone: Comment on above: Ordered: 02/01/2025 COVID & INFLUENZA A/ B & RSV PCR, ROUTINE COVID & INFLUENZA A/B & RSV PCR, ROUTINE Microbiology Routine URI, acute Exposure to communicable disease 02/08/2025 8:22 AM EDT [facility] Work Phone: End: 03-09-2025 DBT Breast - bilateral screening JEREMY SCREENING W YANELY Radiology Routine Encounter for screening mammogram for breast cancer 1 Occurrences starting 02/08/2024 until 03/09/2025 [facility] Work Phone: Comment on above: 1 Occurrences starti ng 02/08/2024 until 03/09/2025 ENTERIC BACTERIAL PA LINDA BY PCR ENTERIC BACTERIAL PANEL BY PCR Lab Routine Diarrhea, unspecified type Ordered: 12/16/2023 [facility] Comment on above: Ordered: 12/16/2023 End: 12-27-2024 Flexible sigmoidoscopy study COLONOSCOPY DIAGNOSTIC Endoscopy Routine Diarrhea, unspecified type Occult blood positive stool 1 Occurrences starting 12/28/2023 until 12/27/2024 [facility] Work Phone: Comment on above: 1 Occurrences starti ng 12/28/2023 until 12/27/2024 End: 12-19-2023 JEREMY SCREENING JEREMY SCREENING Radiology Routine Encounter for screening mammogram for breast cancer 1 Occurrences starting 11/19/2022 until 12/19/2023 [facility] Work Phone: Comment on above: 1 Occurrences starti ng 11/19/2022 until 12/19/2023 End: 03-06-2024 JEREMY SCREENING W YANELY JEREMY SCREENING W YANELY Radiology Routine History of bilateral breast reduction surgery 1 Occurrences starting 02/05/2023 until 03/06/2024 [facility] Work Phone: Comment on above: 1 Occurrences starti ng 02/05/2023 until 03/06/2024 MR Lower Extremity Joint [facility] OCCULT BLD EXAM-DIAG OCCULT BLD EXAM-DIAG Microbiology Routine Diarrhea, unspecified type Ordered: 12/16/2023 [facility] Work Phone: Comment on above: Ordered: 12/16/2023 Ova and parasites identified in Unspecified specimen by Light microscopy OVA + PARA MICROSCOPIC Microbiology Routine Diarrhea, unspecified type Ordered: 12/16/2023 [facility] Comment on above: Ordered: 12/16/2023 PAP TEST PAP TEST Lab Rou clary Encounter for gynecological examination (general) (routine) without abnormal findings Screening for cervical cancer Encounter for screening for human papillomavirus (HPV) Ordered: 02/05/2023 [facility] Work Phone: Comment on above: Ordered: 02/05/2023 Patient Education [facility] Work Phone: Patient referral [facility] Work Phone: Respiratory syncytia l virus Ag [Presence] in Nasopharynx by Rapid immunoassay [facility] End: 09-15-2024 RF Gastrointestinal tract upper Views W barium contrast PO XR UPPER GI SINGLE CONTRAST Radiology Routine Weight gain following gastric bypass surgery 1 Occurrences starting 08/17/2023 until 09/15/2024 [facility] Work Phone: Comment on above: 1 Occurrences starti ng 08/17/2023 until 09/15/2024 End: 01-16-2023 Screening mammography bi 2-view breast inc cad JEREMY SCREENING Radiology Routine Encounter for screening mammogram for breast cancer 1 Occurrences starting 12/17/2021 until 01/16/2023 [facility] Work Phone: Comment on above: 1 Occurrences starti ng 12/17/2021 until 01/16/2023 Tissue Pathology bio psy report [facility] Work Phone: Comment on above: Release Upon Orderin g for 1 Occurrences starting 01/25/2025, 1 completed End: 01-14-2025 XR Abdomen Supine and Upright XR ABDOMEN 1V SUPINE Radiology Routine Abdominal cramping 1 Occurrences starting 12/16/2023 until 01/14/2025 [facility] Comment on above: 1 Occurrences starti ng 12/16/2023 until 01/14/2025 XR Abdomen Supine an d Upright XR ABDOMEN 1V SUPINE Radiology Routine Abdominal cramping 12/16/2023 10:03 AM EDT [facility] End: 02-16-2026 XR Abdomen Supine and Upright XR ABDOMEN 2V ROUTINE SUPINE W UPRIGHT/DECUB/CTL Radiology Routine Flatus 1 Occurrences starting 01/17/2025 until 02/16/2026 [facility] Work Phone: Comment on above: 1 Occurrences starti ng 01/17/2025 until 02/16/2026 XR Abdomen Supine an d Upright XR ABDOMEN 2V ROUTINE SUPINE W UPRIGHT/DECUB/CTL Radiology Routine Flatus 01/17/2025 6:28 PM EDT [facility] Immunizations Immunization Date Immunization Notes Care Provider [facility] 03-10-2024 influenza, seasonal, injectable, preservative free Dr. Corey Tristan MD Work Phone: [facility] 03-10-2024 influenza virus vaccine, unspecified formulation Anahi Downs APRN.SCIENCE PROFESSOR Work Phone: [facility] 03-30-2023 influenza, injectabl e, quadrivalent, preservative free Dr. Corey Tristan MD Work Phone: [facility] 03-30-2023 influenza virus vaccine, unspecified formulation RENA Garcia PA-C Work Phone: [facility] 11-26-2022 tetanus toxoid, redu kyle diphtheria toxoid, and acellular pertussis vaccine, adsorbed PA NA Garcia PA Work Phone: [facility] 04-13-2020 influenza, injectabl e, quadrivalent, contains preservative NA Garcia PA-C Work Phone: [facility] 04-13-2020 influenza virus vaccine, unspecified formulation Deborah Jose FACILITIES ADMINISTRATOR.SCIENCE PROFESSOR Work Phone: [facility] 04-27-2018 influenza, injectabl e, quadrivalent, contains preservative NA Garcia PA-C Work Phone: [facility] 03-16-2017 influenza, injectabl e, quadrivalent, contains preservative NA Garcia PA-C Work Phone: [facility] 05-07-2015 influenza, injectabl e, quadrivalent, contains preservative NA Garcia PA-C Work Phone: [facility] 05-07-2015 influenza, seasonal, injectable NA Garcia PA-C Work Phone: [facility] 03-08-2014 influenza, seasonal, injectable NA Garcia PA-C Work Phone: [facility] 11-01-2013 measles, mumps and rubella virus vaccine NA Garcia PA-C Work Phone: [facility] 04-01-2013 influenza virus vaccine, unspecified formulation NA Garcia PA-C Work Phone: [facility] Work Phone: 06-09-2011 tetanus toxoid, redu kyle diphtheria toxoid, and acellular pertussis vaccine, adsorbed NA Garcia PA-C Work Phone: [facility] Work Phone: 04-07-2005 hepatitis B vaccine, pediatric or pediatric/adolescent dosage NA Garcia PA-C Work Phone: [facility] 04-07-2005 hepatitis B vaccine, unspecified formulation Deborah Ojo Feliz FACILITIES ADMINISTRATOR.SCIENCE PROFESSOR Work Phone: [facility] 11-06-2004 hepatitis B vaccine, pediatric or pediatric/adolescent dosage NA Agrcia PA-C Work Phone: [facility] 09-30-2004 hepatitis B vaccine, pediatric or pediatric/adolescent dosage NA Garcia PA-C Work Phone: [facility] 10-23-1997 tetanus and diphther ia toxoids, adsorbed, preservative free, for adult use (2 Lf of tetanus toxoid and 2 Lf of diphtheria toxoid) NA Garcia PA-C Work Phone: [facility] Work Phone: 09-09-1991 measles, mumps and rubella virus vaccine NA Garcia PA-C Work Phone: [facility] 09-27-1985 diphtheria and tetan us toxoids, adsorbed for pediatric use NA Garcia PA-C Work Phone: [facility] 09-27-1985 tetanus and diphther ia toxoids, adsorbed, preservative free, for adult use (2 Lf of tetanus toxoid and 2 Lf of diphtheria toxoid) NA Garcia PA-C Work Phone: [facility] Work Phone: 09-27-1985 trivalent poliovirus vaccine, live, oral NA Garcia PA-C Work Phone: [facility] Work Phone: 02-03-1983 diphtheria, tetanus toxoids and pertussis vaccine NA Garcia PA-C Work Phone: [facility] Work Phone: 02-03-1983 trivalent poliovirus vaccine, live, oral NA Garcia PA-C Work Phone: [facility] Work Phone: 10-29-1981 trivalent poliovirus vaccine, live, oral NA Garcia PA-C Work Phone: [facility] Work Phone: 06-23-1980 measles, mumps and rubella virus vaccine NA Garcia PA-C Work Phone: [facility] Work Phone: 1979 diphtheria, tetanus toxoids and pertussis vaccine NA Garcia PA-C Work Phone: [facility] Work Phone: 1979 diphtheria, tetanus toxoids and pertussis vaccine NA Garcia PA-C Work Phone: [facility] Work Phone: 1979 trivalent poliovirus vaccine, live, oral NA Garcia PA-C Work Phone: [facility] 1979 diphtheria, tetanus toxoids and pertussis vaccine NA Garcia PA-C Work Phone: [facility] Work Phone: 1979 trivalent poliovirus vaccine, live, oral NA Garcia PA-C Work Phone: [facility] Work Phone: 1979 trivalent poliovirus vaccine, live, oral NA Garcia PA-C Work Phone: [facility] Work Phone: Payers Date Payer Category Payer Self-pay [id number] 2012 Unknown [id number] 2008 Medicaid [employer] [id number] 2008-Present [phone] [address] [place] [address] Medicaid [id number] 2008 Medicaid [id number] Unknown [id number] Unknown [id number] Unknown [id number] Unknown [id number] Unknown [id number] Unknown [id number] Unknown [id number] Unknown [id number] Unknown [id number] [id number] Unknown [id number] [id number] Unknown [id number] [id number] Unknown [id number] [id number] Unknown [id number] [id number] Unknown [id number] [id number] Unknown [id number] [id number] Unknown [id number] [id number] Unknown [id number] [id number] Unknown [id number] [id number] Unknown [id number] [id number] Unknown [id number] Unknown [id number] [id number] Unknown [id number] [id number] Unknown [id number] Unknown [id number] Social History Date Type Detail Facility Start: 11-22-2013 End: 01-15-2024 Tobacco smoking status NHIS Ex-smoker [facility] Work Phone: Start: 07-22-2001 End: 07-22-2013 History of tobacco use Current smoker [facility] Work Phone: Start: 07-22-2001 End: 07-22-2013 History of tobacco use Cigarette Smoker [facility] Work Phone: Start: 11-22-2013 End: 11-03-2022 Cigarettes smoked current (pack per day) - Reported 0.5 [facility] Start: 11-22-2013 End: 01-15-2024 Tobacco use and exposure Smokeless tobacco non-user [facility] Work Phone: Start: 04-13-2020 End: 07-29-2021 Alcohol intake Current drinker of alcohol (finding) [facility] Start: 11-29-2019 End: 11-03-2022 History SDOH Alcohol Frequency 2 [facility] Start: 11-29-2019 End: 11-03-2022 History SDOH Alcohol Std Drinks 98 [facility] Start: 11-29-2019 End: 11-03-2022 History SDOH Alcohol Binge 1 [facility] Start: 03-03-2019 History SDOH Alcohol Comment Rarely [facility] Start: 09-23-2019 End: 11-03-2022 History SDOH Social Connections Living 7 [facility] Start: 09-23-2019 History SDOH Physica l Activity DPW 0 [facility] Start: 09-23-2019 End: 11-03-2022 History SDOH Stress 3 [facility] Start: 09-23-2019 Education 12 [facility] Start: 01-25-2008 Tobacco Comment patient states is trying to quit/ Has not smoked for the past couple of days. (01/25/2008) [facility] Start: 1980 Sex Assigned At Not on file C [facility] Start: 03-14-2020 End: 04-23-2022 Exposure to SARS-CoV-2 (event) Not sure [facility] Start: 08-27-2021 History SDOH Physica l Activity MPS 15 [facility] Start: 09-13-2022 End: 12-16-2022 Tobacco smoking status NHIS Unknown if ever smoked [facility] Start: 05-08-2021 Cigarettes [facility] Start: 1980 Sex Assigned At Female W [facility] Start: 11-03-2022 History SDOH Social Connections Get Together 4 [facility] Start: 11-03-2022 End: 01-31-2025 Social connection and isolation panel [facility] Do you belong to any clubs or organizations such as caodaism groups, unions, fraternal or athletic groups, or school groups? No [facility] Start: 04-25-2012 How often do you att end meetings of the clubs or organizations you belong to? Patient refused [facility] Are you now , , , , never or living with a partner? Never [facility] How hard is it for y ou to pay for the very basics like food, housing, medical care, and heating Somewhat hard [facility] Do you feel stress - tense, restless, nervous, or anxious, or unable to sleep at night because your mind is troubled all the time - these days [OSQ] Not at all [facility] (I/We) worried wheth er (my/our) food would run out before (I/we) got money to buy more. Never true [facility] In the past 12 month s, was there a time when you were not able to pay the mortgage or rent on time? Yes [facility] How often to you hav e a drink containing alcohol? Never [facility] How hard is it for y ou to pay for the very basics like food, housing, medical care, and heating Hard [facility] (I/We) worried wheth er (my/our) food would run out before (I/we) got money to buy more. Often true [facility] The food that (I/we) bought just didn't last, and (I/we) didn't have money to get more. Sometimes true [facility] Start: 02-08-2024 End: 02-01-2025 Alcoholic beverage intake Ex-drinker (finding) [facility] How often to you hav e a drink containing alcohol? Monthly or less [facility] Do you feel stress - tense, restless, nervous, or anxious, or unable to sleep at night because your mind is troubled all the time - these days [OSQ] To some extent [facility] Start: 08-22-2024 Sex Female (finding) [facility] Start: 01-24-2025 Gender identity Identifies as female gender (finding) [facility] Do you feel stress - tense, restless, nervous, or anxious, or unable to sleep at night because your mind is troubled all the time - these days [OSQ] Very much [facility] NEGATED: Highlighted row [facility] Functional Status Date Assessment Result Facility 11-10-2020 Are you deaf, or do you have serious difficulty hearing No 11/10/2020 5:07 PM EDAston Barbosa, FREDRICK No [facility] 11-10-2020 Are you blind, or do you have serious difficulty seeing, even when wearing glasses No 11/10/2020 5:07 PM Aston Snyder, FREDRICK No [facility] 11-10-2020 Do you have serious difficulty walking or climbing stairs No 11/10/2020 5:07 PM EDAston Barbosa, RN No [facility] 11-10-2020 Do you have difficul ty dressing or bathing No 11/10/2020 5:07 PM EDAston Barbosa, RN No [facility] 11-10-2020 Because of a physica l, mental, or emotional condition, do you have difficulty doing errands alone such as visiting a physician's office or shopping No 11/10/2020 5:07 PM EDAston Barbosa, FREDRICK No [facility] Mental Status Date Assessment Result Facility 01-07-2025 Cognitive function Voice/Name [facility] Work Phone: 07-18-2024 Cognitive function Level Of Cons ciousness Drowsy [facility] Work Phone: 09-13-2022 Cognitive function Voice/Name [facility] Work Phone: 11-10-2020 Because of a physica l, mental, or emotional condition, do you have serious difficulty concentrating, remembering, or making decisions No 11/10/2020 5:07 PM EDT Aston Burroughs RN No [facility] Clinical Notes 04-13-2020 to 03-27-2025 Lauren Medellin APRN.SCIENCE PROFESSOR - 02/08/2025 9:21 AM EDTPatient Marita Mcnamara APRN.SCIENCE PROFESSOR - 02/01/2025 8:28 AM EDTPatient Bettina Benz APRN.SCIENCE PROFESSOR - 01/31/2025 2:04 PM EDT Note Date & Type Note Facility 03-27-2025 Note HNO ID: [id number] Author: PARMJIT MACK JR, MD Service: ? Author Type: Physician Type: Progress Notes Filed: 03/27/2025 10:03 Note Text: NEW PATIENT (CONSULT) HISTORY AND PHYSICAL EXAM PRIMARY CARE PHYSICIAN: Bettina Fuentes APRN.CNP REASON FOR CONSULT: See below. REFERRING PHYSICIAN: Bettina Fuentes A* CHIEF COMPLAINT: Sleep apnea evaluation Consultation requested by Bettina Fuentes A* for an opinion regarding chief complaint of Patient presents with: New Patient: CLIFTON-May need CPAP again due to regaining weight as suspected by provider. BPs elevated again. and my final recommendations will be communicated back to the requesting physician by way of shared medical record or letter via US mail. HISTORY OF PRESENT ILLNESS: Fernanda Hernandez is a 45 year old female, BMI 43.82 kg/m2 with a PMH significant for CLIFTON dx'd in 2019 by [facility] showing PEDRO/AHI of 15.6 (worse supine). Last saw Trent Jackie in sleep in 2020 at which time started on Auto PAP. Lost about 140 pounds (bypass surgery) following that study with d/c of PAP. Has since gained 40 pounds back. Patient states had appt last week, and BP has been rising and they were concerned that CLIFTON might be worse again. Patient is typically prone. Not typically tired. No issues falling asleep. Bedtime about 9PM. Rarely wakes during the night to use the bathroom. Does not know if snores. No dry mouth. No AM headaches. Wakes typically about 6AM, but on works 2 shifts per week in which has to wake at 445AM. Usually finds sleep restorative, but on days work, snoozes alarm twice. Not tired during the day. No naps during the day. Not tired driving. No acting out dreams. No narcolepsy tetrad. No RLS symptoms in AM. PHQ 9 Data More data exists 02/23/2025 01/31/2025 10/11/2024 PHQ-9 All Questions Little interest or pleasure in doing things: 1 2 1 Feeling down, depressed, or hopeless: 1 3 1 Trouble falling or staying asleep, or sleeping too much 1 2 1 Feeling tired or having little energy 1 1 1 Poor appetite or overeating 0 1 1 Feeling bad about yourself - or that you are a failure or have let yourself or your family down 1 1 1 Trouble concentrating on things, such as reading the newspaper or watching television 0 2 3 Moving or speaking so slowly that other people could have noticed. Or the opposite - being so fidgety or restless that you have been moving around a lot more than usual 0 0 0 Thoughts that you would be better off , or of hurting yourself in some way 0 0 1 PHQ-9 Score 5 12 10 LIZY 7 Data More data exists 02/23/2025 10/11/2024 08/30/2024 LIZY-7 All Questions Feeling nervous, anxious, or on edge More than half the days Nearly Everyday More than half the days Not being able to stop or control worrying Several days Nearly Everyday Several days Worrying too much about different things Several days Nearly Everyday Several days Trouble relaxing Several days Nearly Everyday Not at all Being so restless that it is hard to sit still Not at all More than half the days Not at all Becoming easily annoyed or irritable More than half the days Nearly Everyday Several days Feeling afraid, as if something awful might happen Not at all Several days Not at all LIZY-7 Score 7 18 5 PROMIS-10 More data exists PROMIS Global Health - (T-Scores - the mean of general population = 50. Five points is a clinically meaningful difference.) Physical T-Score Mental T-Score 01/31/2025 39.8 38.8 07/21/2024 39.8 45.8 12/15/2023 44.9 - Clyde Sleepiness Scale: Sitting and readin Watching TV: 1 Sitting, inactive in a public place (e.g. a theatre or a meeting): 2 As a passenger in a car for an hour without a break: 2 Lying down to rest in the afternoon when circumstances permit: 3 Sitting and talking to someone: 0 Sitting quietly after a lunch without alcohol: 1 In a car, while stopped for a few minutes in the traffic: 1 Total: 12 REVIEW OF SYSTEMS GENERAL:No weight loss, malaise or fevers. HEENT:Negative for frequent or significant headaches, No changes in hearing or vision, no nose bleeds or other nasal problems NECK:Negative for lumps, goiter, pain and significant neck swelling RESPIRATORY: Negative for cough, wheezing or shortness of breath. CARDIOVASCULAR: Negative for chest pain, leg swelling or palpitations. GASTROINTESTINAL: Negative for abdominal discomfort, blood in stools or black stools or change in bowel habits GENITOURINARY: No history of dysuria, frequency or incontinence MUSCULOSKELETAL: Negative for joint pain or swelling, back pain or muscle pain. NEUROLOGIC:Negative for focal numbness or weakness, headaches and dizziness or syncope, vision changes, speech/language changes, changes in gait or falls -- besides those complaints as above in HPI. SKIN:Negative for lesions, rash, and itching. PSYCHIATRIC: Negative for sleep disturbance, mood disorder and recent psychosocial stressor (more content not included)... [facility] 03-27-2025 Note HNO ID: [id number] Author: BRENDA JUSTIN LPN Service: ? Author Type: Licensed Nurse Type: Progress Notes Filed: 03/27/2025 10:03 Note Text: [facility] 03-16-2025 Note HNO ID: [id number] Author: DANN ZPAATA Mammo Tech Service: ? Author Type: Patient Care Representative Type: Progress Notes Filed: 03/16/2025 10:51 Note Text: Radiology Service Progress Note PATIENT NAME: Fernanda Hernandez DATE OF SERVICE: March 16, 2025 TIME: 10:51 AM PATIENT IDENTITY VERIFICATION COMPLETED USING TWO (2) IDENTIFIERS: Name and Date of confirmed by patient verbally. FALL SCREENING: Has the patient had 2 falls in the last year or 1 fall with injury or currently using an Ambulatory Assistive Device (Walker, Cane, Wheelchair, Crutches, etc.)? No PATIENT GENDER DATA: Assigned female at . status: : No status: NO. PATIENT RELEVANT IMPLANT DATA REVIEWED: Not Applicable PATIENT PRESENTS WITH AN IMPLANTABLE OR ATTACHED COTTAGE PARENT: No RADIOLOGY DEPARTMENT: Mammography PERIPHERAL IV DATA: Not applicable SIGNED BY: Dann Zapata Cover Lockscreen March 16, 2025 10:51 AM [facility] 03-16-2025 Note HNO ID: [id number] Author: DEBORAH WHITTAKER APRN.SCIENCE PROFESSOR Service: ? Author Type: Nurse Practitioner Type: Progress Notes Filed: 03/16/2025 09:26 Note Text: Patient declined athletic monitorDiamond Michael is a 44 year old who presents for an annual gynecologic exam without complaints. Menses: no menses - continuous OCPs. Contraception: combined hormonal contraceptives HPV vaccine: No Last Pap: 02/13/2023 normal HPV: 02/07/2023 negative History of abnormal pap: Yes Last mammogram: 2023 normal Sexually active: No OB History Gravida1 Para1 Term0 Preterm0 AB0 Living1 SAB0 IAB0 Ectopic0 Multiple0 Live Births0 Music Director History LMP: 08/28/2020 (Approximate), Drug Induced Amenorrhea Age at Menarche: Age at First : Age at Menopause: Music Director History Comments: Sexual Activity: Not Currently; Male [...] date: 07/22/2001 Quit date: 07/22/2013 Years since quittin.6 Smokeless tobacco: Never Vaping Use Vaping status: [...] discussed with the Patient or Patient's Authorized Wool Classer. As applicable, any other physician, advance practice provider, medical student, or other health professional student that will be observing or involved in the sensitive examination for educational or training purposes was discussed with the Patient or Authorized Wool Classer. The Patient or Authorized Wool Classer has agreed to proceed with the sensitive examination. (Sensitive examination includes inspection and/or palpation of the breasts, pelvis, prostate and anorectal regions). EXAM: BP 128/76 Wt 242 lb 12.8 oz (110.1kg) LMP 08/28/2020 GENERAL: pleasant, female in no apparent distress HEENT: Normocephalic, atraumatic, mucus membranes moist, and no lesions DERMATOLOGY: Normal, without lesions, non-icteric, and non-hirsute BREAST: soft, non-tender, symmetric, no dominant mass, normal nipple-areolar complex, no lymphadenopathy, and no nipple discharge CHEST: Normal inspiratory effort ABDOMEN: soft, non-tender, and no masses PELVIC: external genitalia normal, normal Bartholin's glands, urethra, [place]'s glands, no vulvar lesions, no cervical lesions, [...] NA 4) Follow up one year or (more content not included)... [facility] 02-23-2025 Note HNO ID: [id number] Author: ANAHI DOWNS APRN.SCIENCE PROFESSOR Service: ? Author Type: Nurse Practitioner Type: Progress Notes Filed: 02/23/2025 11:00 Note Text: FOLLOW UP - PSYCHIATRIC [...] visit. Either the patient or their legal patient care representative has been informed of the risks and benefits of -- and alternatives to -- treatment through a remote evaluation and consents to proceed with the evaluation remotely. Reason for Visit: Outpatient follow-up and safety monitoring of previously prescribed psychiatric medication, psychotherapy or other treatment CC: medication management for depression and anxiety Recording using ambient LaunchTrack software for draft documentation of the visit was discussed with the patient/authorized patient care representative; all questions welcomed and answered. Patient/authorized patient care representative agreed to proceed HPI: Patient is a 44-year-old female with a history of MDD, anxiety disorder NOS, and panic disorder without agoraphobia, presenting for follow-up on medication management. The patient reports an increase in anxiety, describing a persistent sensation of butterflies in her stomach. She denies any new stressors in her environment that could account for this change. She experiences anxiety even in situations that previously did not provoke such feelings, such as attending today's appointment. Her sleep is generally fine and about normal, averaging 7-8 hours per night. However, on nights before work, she sleeps approximately 6 hours. Earlier this week, she slept excessively after taking two of her daughter's hydroxyzine tablets to manage acute anxiety following an argument with her daughter. This resulted in feeling extremely tired and groggy the next day. She has not yet picked up her own prescription for hydroxyzine but plans to do so today. She consumes about 1.5 cups of coffee daily and occasionally drinks an energy drink once a week. She denies any suicidal or homicidal ideation. She recalls experiencing a panic attack over the summer, during which she took a Klonopin tablet. She does not remember the specific trigger for the attack but notes that such episodes are infrequent. She has a history of concerns about elevated serotonin levels, previously experiencing serious body aches while on Effexor, which was switched from extended-release to immediate-release due to her history of bypass surgery. She reports chronic back and neck pain, which she believes contributes to her anxiety. The pain varies in intensity, with some days being manageable and others more severe. She feels that Cymbalta has been beneficial for her fibromyalgia symptoms. She remains physically active and is considering restarting her gym membership at [employer], which is currently on pause. Risks and benefits of the medication, including any black box warnings, were discussed with the patient. Interval Progress: Slightly worse PATIENT DATA: Generalized Anxiety Disorder Scale (LIZY-7) 08/30/2024 10/11/2024 02/23/2025 LIZY - 7 SCORES Score 5 18 7 (0-4) minimal anxiety, (5-9) mild anxiety, (10-14) moderate anxiety, (15-21) severe anxiety Patient Health Questionnaire (PHQ-9) 10/11/2024 01/31/2025 02/23/2025 PHQ-9 Score 10 12 5 (0-4) minimal depression, (5-9) mild depression, (10-14) moderate depression, (15-19) moderately severe depression, (20-27) severe depression PROMIS Global Health 12/15/2023 07/21/2024 01/31/2025 PROMIS Global Health - (T-Scores - the mean of general population = 50. Five points is a clinically meaningful difference.) Physical T-Score 44.9 39.8 39.8 Mental T-Score 45.8 38.8 PAST MEDICAL HISTORY Diagnosis Date - Delayed emergence from general anesthesia - Fibromyalgia 08/20/2016 - GERD (gastroesophageal reflux disease) 03/12/2009 - Hiatal hernia - Hypoglycemia, unspecified - Mental disorder anxiety and depression - Migraine without aura 2001 - Morbid obesity (HCC) - Normal cardiac stress test 01/23/2012 - PONV (postoperative nausea and vomiting) - Sleep apnea - Snoring - Unspecified prophylactic or treatment measure PAST SURGICAL HISTORY Procedure Laterality Date - COLONOSCOPY BX SINGLE/MULTI 02/04/2024 - COLONOSCOPY W/BIOPSY SINGLE/MULTIPLE 12/14/2018 - EGD 01/31/2020 - ESOPHAGOGASTRODUODENOSCOPY TRANSORAL DIAGNOSTIC 04/11/2005 EGD - ESOPHAGOGASTRODUODENOSCOPY TRANSORAL DIAGNOSTIC 03/06/2017 EGD - GASTRIC BYPASS, TATI-EN-Y 11/08/2020 w/ Lap hiatal hernia repair - LAP REP (more content not included)... [facility] 02-21-2025 Note HNO ID: [id number] Author: RUPESH POOLE, DO Service: ? Author Type: Physician Type: Progress Notes Filed: 02/21/2025 11:02 Note Text: Allergy and Immunology 02/21/2025 PRIMARY CARE PHYSICIAN: Bettina Fuentes APRN.SCIENCE PROFESSOR REFERRING PROVIDER: OG Cervantes Consultation requested for an allergy/immunology evaluation. My final impression and recommendations will be communicated back to the requesting physician by way of shared medical record, fax, or US mail. CHIEF COMPLAINT: The patient is a 44-year-old female presenting for evaluation of possible shellfish allergy and environmental allergy testing. HISTORY OF PRESENT ILLNESS: Rash: - Rash onset approximately 1-1.5 months ago after consuming a small amount of lobster and using a new hair mousse on the same day. - Rash began on cheeks, described as really red and a little bit bumpy, followed by involvement of one ear, and the other ear a day or two later. The rash began in the evening. A teaspoon of lobster eaten for lunch several hours prior without immediate symptoms - Rash lasted 3-4 days; treated with an oral steroid prescribed by a clinician. - Denies pruritus; rash was warm, red, and bumpy. - No photos of the rash available. - Previous reaction to lobster 15 years ago, described as facial warmth. - Tolerates shrimp - Denies any issues with shrimp; has not consumed these since the incident. - Consumes fish without issues. Has only eaten immitation crab. Tolerates scallops but does not regularly eat mollusks. Has not had oysters or clams Facial Flushing: - Reports episodes of facial flushing over the last few months, occurring almost daily for a week and a half to two weeks, primarily around midday. - Flushing described as feeling really warm and like my face is on fire. - Denies pruritus or hives during these episodes. - Flushing not associated with any specific food trigger. Sinus Issues: - Reports frequent sinus issues, including drainage and pressure around the eyes and cheeks - Experiences minor sore throats occasionally, sometimes upon waking. - History of snoring; previously used CPAP but discontinued after gastric bypass and weight loss. - Uncertain if still snores Environmental Allergies: - Suspects environmental allergies due to frequent headaches at certain times of the year. - Has a dog but denies noticing symptoms around the dog. - Denies issues with mice, cockroaches, or mildew in the home. - Uses air conditioning in the summer; does not use dust mite covers on pillows. - Denies exposure to cigar, cigarette smoke, or vaping. Lactose Intolerance: - Reports GI discomfort after consuming milk, described as feeling kind of nauseous. - Uncertain if this is followed by diarrhea, as she experiences diarrhea frequently from food. MYC COLLATERAL ALLERGY HISTORY Question 02/16/2025 8:49 PM EDT - Filed by Patient Do you have or have you ever been diagnosed with allergic rhinitis? No Have you ever been skin tested for allergies? No Do you have asthma? No Do you have or have you ever been diagnosed with eczema or atopic dermatitis? No Do you get frequent sinus infections? Yes Do you have nasal polyps? Not Sure Do you have or have you ever been diagnosed with urticaria / hives? No Do you have or have you ever been diagnosed with angioedema? No Do you have or have you ever been diagnosed with food allergy? No Do you have or have you ever been diagnosed with stinging insect allergy (bee, wasp, yellow jacket, hornet)? No Are you allergic to Penicillin antibiotics? No MYC ALLERGY ENVIROMENTAL EXPOSURES Question 02/21/2025 9:23 AM EDT - Filed by Rupesh Poole, DO Aeroallergens Exposure What pet(s) you have at home? Dog Is there evidence of a mouse infestation in your home? No Is there evidence of a cockroach infestation in your home? No Is there evidence of mold or mildew in your home? No Is your home air conditioned during the summer? Yes Do you use zip around dust mite covers on all mattresses and pillows? No Is there exposure in the home to cigarette or cigar smoke? No Is there any exposure to vaping? No Social Hx: SOCIAL HISTORY[1] Employer And Job Title: [employer] ( [employer]- [employer] ([employer]- [employer]); [employer] (No job title specified) Years Of Education Completed: 12 years Marital Status: Single with 1 child SOCIAL HISTORY No social history on file. PAST MEDICAL HISTORY Diagnosis Date Delayed emergence from general anesthesia Fibromyalgia 08/20/2016 GERD (gastroesophageal reflux disease) 03/12/2009 Hiatal hernia Hypoglycemia, unspecified Mental disorder anxiety and depression Migraine without aura 2001 Morbid obesity (HCC) Normal cardiac stress test 01/23/2012 PONV (postoperative nausea and vomiting) Sleep apnea Snoring Unspecified prophylactic or treatment measure FA (more content not included)... [facility] 02-21-2025 Note HNO ID: [id number] Author: LIZETH CASTILLO LPN Service: ? Author Type: Licensed Nurse Type: Progress Notes Filed: 02/21/2025 11:02 Note Text: Patient reports that about a month ago she developed a rash around her ears and on her cheeks after eating a very small amount of lobster. Patient also has concerns with dairy products, states that she does not feel well after eating dairy. Patient also reports that she possibly has some environmental allergies but nothing specific that she can think of at this time. Patient does not take antihistamines. [facility] 02-08-2025 Note HNO ID: [id number] Author: LAUREN MEDELLIN APRN.SCIENCE PROFESSOR Service: ? Author Type: Nurse Practitioner Type: Progress Notes Filed: 02/08/2025 09:30 Note Text: [facility] Mony Hernandez is a 44 year old female. Patient presents with: Sinus Problem: sinus pressure, headache, nasal drainage x 3 days Sinus Problem The patient is a 44-year-old female with a history of sleep apnea, GERD, and fibromyalgia, presenting with symptoms of a suspected sinus infection. Sinus Infection: - Onset of symptoms began on Thursday. - Reports sore throat, drainage, and pressure, with associated aches and pains - Experiences nausea, believed to be from drainage. - Denies fever or chills. - Daughter, age 17, is also currently ill. - Taking Tylenol, elderberry, Airborne, and Tylenol Cold and Flu with minimal relief. - Most bothersome symptoms are sinus pressure and sore throat. Sleep Apnea: - History of sleep apnea. GERD: - History of GERD. Fibromyalgia: - History of fibromyalgia. PAST MEDICAL HISTORY Diagnosis Date Delayed emergence [...] Antibiotics), and Wellbutrin [Bupropion Hcl] MEDICATIONS DULoxetine DR (CYMBALTA) 30 mg capsule Take 1 capsule by mouth once daily. gabapentin (NEURONTIN) 300 mg capsule Take 1 capsule by mouth three times a day for 90 days. sucralfate (CARAFATE) 1 gram tablet Take 1 tablet by mouth before meals and at bedtime. famotidine (PEPCID) 20 mg tablet Take 1 tablet by mouth daily at bedtime. meclizine (ANTIVERT) 25 mg tab Take 1 tablet by mouth every 6 hours as needed (for dizziness). Not to exceed 4 tablets in 24 hours scopolamine (TRANSDERM-SCOP) patch 1.5 mg/72 hr (delivers 1 mg over 3 days) Apply 1 patch as directed every 72 hours. lamoTRIgine (LAMICTAL) 150 mg tablet Take 1 tablet by mouth daily at bedtime. take with 100 mg tablet for total daily dose 250 mg lamoTRIgine (LAMICTAL) 100 mg tablet Take 1 tablet by mouth daily at bedtime. take with 150 mg tablet for total daily dose 250 mg clonazePAM (KLONOPIN) 0.5 mg tablet can take Klonopin 0.5mg 1/2 tablet daily for anxiety attacks as needed, use very sparingly, do not mix with alcohol and do not drive after taking Max order is 5 pills or 10 doses per month norgestimate 0.25 mg-ethinyl estradiol 35 mcg (TAMARA) [...] C ORAL) Take by mouth once daily. methylPREDNISolone (MEDROL, JAVAN,) 4 mg Dose-Pack Take as instructed per package. [START ON 02/11/2025] amoxicillin-clavulanate potassium (AUGMENTIN) 875-125 mg per tablet Take 1 tablet by mouth every 12 hours for 7 days. Patient should start on February 11, 2025. FAMILY HISTORY Problem Relation Age of Onset Arthritis Mother Diabetes Mother Headache Father Lipids Father Headache Sister Diabetes Maternal Grandfather Stroke Maternal Grandfather Alcohol/Drug Paternal Grandmother ETOH Alcohol/Drug Paternal Grandfather ETOH Cancer Paternal Grandfather LUNG Alcohol/Drug Paternal Aunt ETOH Alcohol/Drug Paternal Uncle ETOH Cancer Paternal Uncle LUNG SOCIAL HISTORY[1] Review of Systems Constitutional: (-) fever, (-) chills Head: (+) sinus pressure Ears/Nose/Mouth/Throat: (+) sore throat, (+) nasal drainage Muscle: +body aches Gastrointestinal: (+) nausea, (+) diarrhea Objective BP 124/80 Pulse 78 Temp 36.6 ?C (97.8 ?F) Resp 16 Wt 108.9 kg (240 lb 1.3 oz) LMP 08/28/2020 (Approximate) SpO2 97% BMI 43.91 kg/m? Physical Exam Vitals and nursing note reviewed. Constitutional: General: S (more content not included)... [facility] 02-08-2025 History of Present illness Narrative [facility] Subjective Fernanda Hernandez is a 44 year old female. Patient presents with: Sinus Problem: sinus pressure, headache, nasal drainage x 3 days Sinus Problem The patient is a 44-year-old female with a history of sleep apnea, GERD, and fibromyalgia, presenting with symptoms of a suspected sinus infection. Sinus Infection: - Onset of symptoms began on Thursday. - Reports sore throat, drainage, and pressure, with associated aches and pains - Experiences nausea, believed to be from drainage. - Denies fever or chills. - Daughter, age 17, is also currently ill. - Taking Tylenol, elderberry, Airborne, and Tylenol Cold and Flu with minimal relief. - Most bothersome symptoms are sinus pressure and sore throat. Sleep Apnea: - History of sleep apnea. GERD: - History of GERD. Fibromyalgia: - History of fibromyalgia. PAST MEDICAL HISTORY Diagnosis Date Delayed emergence [...] Antibiotics), and Wellbutrin [Bupropion Hcl] MEDICATIONS DULoxetine DR (CORBIN) 30 mg capsule Take 1 capsule by mouth once daily. gabapentin (NEURONTIN) 300 mg capsule Take 1 capsule by mouth three times a day for 90 days. sucralfate (CARAFATE) 1 gram tablet Take 1 tablet by mouth before meals and at bedtime. famotidine (PEPCID) 20 mg tablet Take 1 tablet by mouth daily at bedtime. meclizine (ANTIVERT) 25 mg tab Take 1 tablet by mouth every 6 hours as needed (for dizziness). Not to exceed 4 tablets in 24 hours scopolamine (TRANSDERM-SCOP) patch 1.5 mg/72 hr (delivers 1 mg over 3 days) Apply 1 patch as directed every 72 hours. lamoTRIgine (LAMICTAL) 150 mg tablet Take 1 tablet by mouth daily at bedtime. take with 100 mg tablet for total daily dose 250 mg lamoTRIgine (LAMICTAL) 100 mg tablet Take 1 tablet by mouth daily at bedtime. take with 150 mg tablet for total daily dose 250 mg clonazePAM (KLONOPIN) 0.5 mg tablet can take Klonopin 0.5mg 1/2 tablet daily for anxiety attacks as needed, use very sparingly, do not mix with alcohol and do not drive after taking Max order is 5 pills or 10 doses per month norgestimate 0.25 mg-ethinyl estradiol 35 mcg (TAMARA) [...] C ORAL) Take by mouth once daily. methylPREDNISolone (MEDROL, JAVAN,) 4 mg Dose-Pack Take as instructed per package. [START ON 02/11/2025] amoxicillin-clavulanate potassium (AUGMENTIN) 875-125 mg per tablet Take 1 tablet by mouth every 12 hours for 7 days. Patient should start on February 11, 2025. FAMILY HISTORY Problem Relation Age of Onset Arthritis Mother Diabetes Mother Headache Father Lipids Father Headache Sister Diabetes Maternal Grandfather Stroke Maternal Grandfather Alcohol/Drug Paternal Grandmother ETOH Alcohol/Drug Paternal Grandfather ETOH Cancer Paternal Grandfather LUNG Alcohol/Drug Paternal Aunt ETOH Alcohol/Drug Paternal Uncle ETOH Cancer Paternal Uncle LUNG SOCIAL HISTORY[1] Review of Systems Constitutional: (-) fever, (-) chills Head: (+) sinus pressure Ears/Nose/Mouth/Throat: (+) sore throat, (+) nasal drainage Muscle: +body aches Gastrointestinal: (+) nausea, (+) diarrhea Objective BP 124/80 Pulse 78 Temp 36.6 C (97.8 F) Resp 16 Wt 108.9 kg (240 lb 1.3 oz) LMP 08/28/2020 (Approximate) SpO2 97% BMI 43.91 kg/m Physical Exam Vitals and nursing note reviewed. Constitutional: General: She is not in acute distress. Appearance: Normal appearance. She is normal weight. She is not ill-appearing, toxic-appearing or diaphoretic. HENT: Head: Normocephalic and atraumatic. Comments: +frontal sinus pressure Right Ear: Ear canal and external ear normal. Left Ear: Ear canal and external ear normal. Nose: Nose normal. No congestion or rhinorrhea. Mouth/Throat: Mouth: Mucous membranes are moist. Pharynx: Posterior oropharyngeal erythema present. No oropharyngeal exudate. Eyes: General: Right eye: No discharge. Left eye: No discharge. Extraocular Movements: Extraocular movements intact. Conjunctiva/sclera: Conjunctivae normal. Pupils: Pupils are equal, round, and reactive to light. Cardiovascular: Rate and Rhythm: Normal rate and regular rhythm. Pulses: Normal pulses. Heart sounds: Normal heart sounds. No murmur heard. No friction rub. Pulmonary: Effort: Pulmonary effort is normal. No respiratory distress. Breath sounds: Normal breath sounds. No stridor. No wheezing, rhonchi or rales. Chest: Chest wall: No tenderness. Abdominal: General: Abdomen is flat. There is no distension. Palpations: Abdomen is soft. There is no mass. Tenderness: There is no abdominal tenderness. There is no right CVA tenderness, left CVA tenderness, guarding or rebound. Hernia: No hernia is present. Musculoskeletal: General: No swelling, tenderness, deformity or signs of injury. Normal range of motion. Cervical back: Normal range of motion and neck supple. No rigidity. Right lower leg: No edema. Left lower leg: No edema. Lymphadenopathy: Cervical: Cervical adenopathy present. Skin: General: Skin is warm and dry. Coloration: Skin is not jaundiced or pale. Findings: No bruising, erythema, lesion or rash. Neurological: General: No focal deficit present. Mental Status: She is alert and oriented to person, place, and time. Cranial Nerves: No cranial nerve deficit. Sensory: No sensory deficit. Motor: No weakness. Coordination: Coordination normal. Gait: Gait normal. Psychiatric: Mood and Affect: Mood normal. Behavior: Behavior normal. Thought Content: Thought content normal. Judgment: Judgment normal. { 1. Rhinosinusitis (J32.9) 2. URI, acute (J06.9) 3. Exposure to communicable disease (Z20.9) - 3 days of symptoms including sore throat, drainage, pressure, and ache; no fever or chills. - Strep test negative; symptoms likely viral. - Advised to continue supportive measures. RX Medrol Dose Pack Provided safety net ATB that can be filled on day 7 and Recording using Dynadmic software for draft documentation of the visit was discussed with the patient/authorized patient care representative; all questions welcomed and answered. Patient/authorized patient care representative agreed to proceed MDM Procedures [1] Social History Tobacco Use Smoking status: Former Current packs/day: 0.00 Average packs/day: 0.5 packs/day for 12.0 years (6.0 ttl pk-yrs) Types: Cigarettes Start date: 07/22/2001 Quit date: 07/22/2013 Years since quittin.5 Smokeless tobacco: Never Vaping Use Vaping status: Never Used Substance Use Topics Alcohol use: Not Currently Comment: Rarely Drug use: No documented in this encounter [facility] 02-08-2025 Instructions Lauren Medellin APRN.CNP - 02/08/2025 8:32 AM EDT - No antibiotic is prescribed at this time since your strep test was negative and your symptoms are likely viral A safety net ATB has been sent over that can be filled on day 7 Medrol Dose Pack - Continue with supportive measures as discussed - Follow up with your primary care provider if your symptoms persist documented in this encounter [facility] 02-08-2025 Note SARS-COV-2 (AGENT OF COVID-19) RNA: Not detected INFLUENZA A RNA: Not detected INFLUENZA B RNA: Not detected RESPIRATORY SYNCYTIAL VIRUS (RSV) RNA: Not detected [facility] Comment on above: Performed By: #### [id number] ####[facility] [id number] [address] 02-01-2025 Note SARS-COV-2 (AGENT OF COVID-19) RNA: Not detected INFLUENZA A RNA: Not detected INFLUENZA B RNA: Not detected RESPIRATORY SYNCYTIAL VIRUS (RSV) RNA: Not detected [facility] Comment on above: Performed By: #### 9 [id number] ####[facility] [id number] [address] 02-01-2025 Note HNO ID: [id number] Author: MARITA ALICEA APRN.CNP Service: ? Author Type: Nurse Practitioner Type: Progress Notes Filed: 02/01/2025 08:44 Note Text: [facility] Hernandez is a 44 year old female. Patient presents with: Sinus Problem: Sinus pressure in head and neck, nausea x 2 days Sinus Problem The patient is a 44-year-old female presenting with sinus pressure, facial pain, and diarrhea. Sinus Pressure and Facial Pain: - Onset a few days ago. - Describes facial pain radiating down the neck. - Associated with nasal drainage and hot flashes. - Denies chest pain, chest congestion, or productive cough today; was coughing yesterday. - Has Flonase at home; denies use of Zyrtec. Diarrhea: - Onset two weeks ago, with sudden onset and intermittent episodes. - Denies history of IBS. - Currently undergoing a colon cleanse as per edgerman's recommendation. Medication Use: - Taking Tylenol with no relief; unable to take NSAIDs. - Recent use of prednisone in December for an unspecified condition. Review of Systems Constitutional: (+) body aches, (+) hot flashes, (-) fever Head: (+) facial pain Ears/Nose/Mouth/Throat: (+) nasal drainage Neck: (+) neck pain Cardiovascular: (-) chest pain Respiratory: (-) chest congestion, (-) cough Gastrointestinal: (+) abdominal pain, (+) diarrhea Objective BP 122/90 Pulse 75 Temp 36.7 ?C (98 ?F) Resp 19 Wt 109.3 kg (240 lb 15.4 oz) LMP 08/28/2020 (Approximate) SpO2 95% BMI 44.07 kg/m? PAST MEDICAL HISTORY Diagnosis Date Delayed emergence [...] Antibiotics), and Wellbutrin [Bupropion Hcl] MEDICATIONS DULoxetine DR (CYMBALTA) 30 mg capsule Take 1 capsule by mouth once daily. gabapentin (NEURONTIN) 300 mg capsule Take 1 capsule by mouth three times a day for 90 days. sucralfate (CARAFATE) 1 gram tablet Take 1 tablet by mouth before meals and at bedtime. famotidine (PEPCID) 20 mg tablet Take 1 tablet by mouth daily at bedtime. meclizine (ANTIVERT) 25 mg tab Take 1 tablet by mouth every 6 hours as needed (for dizziness). Not to exceed 4 tablets in 24 hours scopolamine (TRANSDERM-SCOP) patch 1.5 mg/72 hr (delivers 1 mg over 3 days) Apply 1 patch as directed every 72 hours. lamoTRIgine (LAMICTAL) 150 mg tablet Take 1 tablet by mouth daily at bedtime. take with 100 mg tablet for total daily dose 250 mg lamoTRIgine (LAMICTAL) 100 mg tablet Take 1 tablet by mouth daily at bedtime. take with 150 mg tablet for total daily dose 250 mg clonazePAM (KLONOPIN) 0.5 mg tablet can take Klonopin 0.5mg 1/2 tablet daily for anxiety attacks as needed, use very sparingly, do not mix with alcohol and do not drive after taking Max order is 5 pills or 10 doses per month norgestimate 0.25 mg-ethinyl estradiol 35 mcg (TAMARA) [...] C ORAL) Take by mouth once daily. predniSONE (DELTASONE) 20 mg tablet Take 1 tablet by mouth once daily for 3 days. FAMILY HISTORY Problem Relation Age of Onset Arthritis Mother Diabetes Mother Headache Father Lipids Father Headache Sister Diabetes Maternal Grandfather Stroke Maternal Grandfather Alcohol/Drug Paternal Grandmother ETOH Alcohol/Drug Paternal Grandfather ETOH Cancer Paternal Grandfather LUNG Alcohol/Drug Paternal Aunt ETOH Alcohol/Drug Paternal Uncle ETOH Cancer Paternal Uncle LUNG SOCIAL HISTORY[1] Physical Exam Vitals reviewed. Constitutional: General: She is not in acute distress. Appearance: Normal appearance. She (more content not included)... [facility] 02-01-2025 History of Present illness Narrative [facility] Subjective Fernanda Hernandez is a 44 year old female. Patient presents with: Sinus Problem: Sinus pressure in head and neck, nausea x 2 days Sinus Problem The patient is a 44-year-old female presenting with sinus pressure, facial pain, and diarrhea. Sinus Pressure and Facial Pain: - Onset a few days ago. - Describes facial pain radiating down the neck. - Associated with nasal drainage and hot flashes. - Denies chest pain, chest congestion, or productive cough today; was coughing yesterday. - Has Flonase at home; denies use of Zyrtec. Diarrhea: - Onset two weeks ago, with sudden onset and intermittent episodes. - Denies history of IBS. - Currently undergoing a colon cleanse as per edgerman's recommendation. Medication Use: - Taking Tylenol with no relief; unable to take NSAIDs. - Recent use of prednisone in December for an unspecified condition. Review of Systems Constitutional: (+) body aches, (+) hot flashes, (-) fever Head: (+) facial pain Ears/Nose/Mouth/Throat: (+) nasal drainage Neck: (+) neck pain Cardiovascular: (-) chest pain Respiratory: (-) chest congestion, (-) cough Gastrointestinal: (+) abdominal pain, (+) diarrhea Objective BP 122/90 Pulse 75 Temp 36.7 C (98 F) Resp 19 Wt 109.3 kg (240 lb 15.4 oz) LMP 08/28/2020 (Approximate) SpO2 95% BMI 44.07 kg/m PAST MEDICAL HISTORY Diagnosis Date Delayed [...] Antibiotics), and Wellbutrin [Bupropion Hcl] MEDICATIONS DULoxetine DR (CYMBALTA) 30 mg capsule Take 1 capsule by mouth once daily. gabapentin (NEURONTIN) 300 mg capsule Take 1 capsule by mouth three times a day for 90 days. sucralfate (CARAFATE) 1 gram tablet Take 1 tablet by mouth before meals and at bedtime. famotidine (PEPCID) 20 mg tablet Take 1 tablet by mouth daily at bedtime. meclizine (ANTIVERT) 25 mg tab Take 1 tablet by mouth every 6 hours as needed (for dizziness). Not to exceed 4 tablets in 24 hours scopolamine (TRANSDERM-SCOP) patch 1.5 mg/72 hr (delivers 1 mg over 3 days) Apply 1 patch as directed every 72 hours. lamoTRIgine (LAMICTAL) 150 mg tablet Take 1 tablet by mouth daily at bedtime. take with 100 mg tablet for total daily dose 250 mg lamoTRIgine (LAMICTAL) 100 mg tablet Take 1 tablet by mouth daily at bedtime. take with 150 mg tablet for total daily dose 250 mg clonazePAM (KLONOPIN) 0.5 mg tablet can take Klonopin 0.5mg 1/2 tablet daily for anxiety attacks as needed, use very sparingly, do not mix with alcohol and do not drive after taking Max order is 5 pills or 10 doses per month norgestimate 0.25 mg-ethinyl estradiol 35 mcg (TAMARA) [...] C ORAL) Take by mouth once daily. predniSONE (DELTASONE) 20 mg tablet Take 1 tablet by mouth once daily for 3 days. FAMILY HISTORY Problem Relation Age of Onset Arthritis Mother Diabetes Mother Headache Father Lipids Father Headache Sister Diabetes Maternal Grandfather Stroke Maternal Grandfather Alcohol/Drug Paternal Grandmother ETOH Alcohol/Drug Paternal Grandfather ETOH Cancer Paternal Grandfather LUNG Alcohol/Drug Paternal Aunt ETOH Alcohol/Drug Paternal Uncle ETOH Cancer Paternal Uncle LUNG SOCIAL HISTORY[1] Physical Exam Vitals reviewed. Constitutional: General: She is not in acute distress. Appearance: Normal appearance. She is normal weight. She is not ill-appearing or toxic-appearing. HENT: Head: Normocephalic and atraumatic. Right Ear: Tympanic membrane, ear canal and external ear normal. Left Ear: Tympanic membrane, ear canal and external ear normal. Nose: Congestion and rhinorrhea present. Mouth/Throat: Pharynx: No oropharyngeal exudate or posterior oropharyngeal erythema. Eyes: Extraocular Movements: Extraocular movements intact. Conjunctiva/sclera: Conjunctivae normal. Pupils: Pupils are equal, round, and reactive to light. Cardiovascular: Rate and Rhythm: Normal rate and regular rhythm. Pulses: Normal pulses. Heart sounds: Normal heart sounds. Pulmonary: Effort: Pulmonary effort is normal. Breath sounds: Normal breath sounds. Abdominal: General: Abdomen is flat. Bowel sounds are normal. There is no distension. Palpations: Abdomen is soft. There is no mass. Tenderness: There is no abdominal tenderness. There is no right CVA tenderness, left CVA tenderness, guarding or rebound. Hernia: No hernia is present. Lymphadenopathy: Cervical: No cervical adenopathy. Neurological: Mental Status: She is alert. { 1. Viral upper respiratory infection (J06.9) - Acute viral URI; no evidence of pneumonia, otitis media, or bacterial sinusitis on exam. - Discussed that Flonase or Nasacort are preferred for sinus symptoms due to lower side effect profile compared to systemic steroids; advised against prednisone given recent use in December and immunosuppressive risks. - Start Tessalon Perles for throat clearing and postnasal drainage. - Offered flu, COVID, and RSV testing; results expected tonight or tomorrow. - Advised rest and supportive care; instructed to return if symptoms worsen. - Provided work note for absence. and Recording using Dynadmic software for draft documentation of the visit was discussed with the patient/authorized patient care representative; all questions welcomed and answered. Patient/authorized patient care representative agreed to proceed History and Record Review Clinical information obtained from an independent historian. History obtained from or confirmed by: parent. External record(s) reviewed: prior inpatient record. Findings from review of inpatient records: Last Prednisone Differential Diagnoses - Viral upper respiratory infection is more likely for the following reason(s): suggested by H&P - pneumonia/otitis media/acute surgical abdomen is less likely for the following reason(s): H&P not suggestive - Acute surgical abdomen is less likely for the following reason(s): H&P not suggestive Disposition The patient was discharged. OTC Medications were advised: Flonase Tylenol [1] Social History Tobacco Use Smoking status: Former Current packs/day: 0.00 Average packs/day: 0.5 packs/day for 12.0 years (6.0 ttl pk-yrs) Types: Cigarettes Start date: 07/22/2001 Quit date: 07/22/2013 Years since quittin.5 Smokeless tobacco: Never Vaping Use Vaping status: Never Used Substance Use Topics Alcohol use: Not Currently Comment: Rarely Drug use: No documented in this encounter [facility] 01-31-2025 Instructions Bettina Fuentes APRN.CNP - 01/31/2025 2:24 PM EDT 1) Stop nortriptyline 2) Start Duloxetine 30 mg daily 3) No more gabapentin than 600 mg in AM & 300 mg in evening documented in this encounter [facility] 01-31-2025 Note HNO ID: [id number] Author: BETTINA FUENTES APRN.SCIENCE PROFESSOR Service: ? Author Type: Nurse Practitioner Type: Progress Notes Filed: 01/31/2025 14:24 Note Text: I have communicated my name and active licensure. The patient's identity and physical location were verified at the time of this visit. Either the patient or their legal patient care representative has been informed of the risks and benefits of -- and alternatives to -- treatment through a remote evaluation and consents to proceed with the evaluation remotely. Mony Hernandez is a 44 year old female. LIZY Sleeping better- taking medication at bedtime Dizziness without improvement. Pain is 5/10 for neck, not past 7-8/10 Depression- tearful at anything Takes gabapentin 300 at night and 900 in the morning. Can't wake up when she takes 900 mg at bedtime. Takes meclizine but it doesn't help. Forgot to try scopolamine. Headache every day. Objective LMP 08/28/2020 (Approximate) GENERAL: alert and appropriate, in no distress, well-hydrated, well nourished, and happy, smiling, interactive Assessment AND Plan Fibromyalgia Switch back back to duloxetine and cancel nortriptyline, dizziness not better Dizziness Ongoing, no improvement, getting vestibular therapy - Scopolamine patch trial - doing vestibular therapy Cervicothoracic somatic dysfunction Ongoing- severe - in pain management, [facility] - Renew gabapentin, told no more than 600 mg in AM, 300 mg at bedtime Headache, unspecified headache type - No improvement Visit was conducted via MyChart Zoom Patient Location: Patient Home or Place of Residence [facility] 01-31-2025 History of Present illness Narrative I have communicated my name and active licensure. The patient's identity and physical location were verified at the time of this visit. Either the patient or their legal patient care representative has been informed of the risks and benefits of -- and alternatives to -- treatment through a remote evaluation and consents to proceed with the evaluation remotely. Mony Hernandez is a 44 year old female. LIZY Sleeping better- taking medication at bedtime Dizziness without improvement. Pain is 5/10 for neck, not past 7-8/10 Depression- tearful at anything Takes gabapentin 300 at night and 900 in the morning. Can't wake up when she takes 900 mg at bedtime. Takes meclizine but it doesn't help. Forgot to try scopolamine. Headache every day. Objective LMP 08/28/2020 (Approximate) GENERAL: alert and appropriate, in no distress, well-hydrated, well nourished, and happy, smiling, interactive Assessment & Plan Fibromyalgia Switch back back to duloxetine and cancel nortriptyline, dizziness not better Dizziness Ongoing, no improvement, getting vestibular therapy - Scopolamine patch trial - doing vestibular therapy Cervicothoracic somatic dysfunction Ongoing- severe - in pain management, [facility] - Renew gabapentin, told no more than 600 mg in AM, 300 mg at bedtime Headache, unspecified headache type - No improvement Visit was conducted via [facility] Patient Location: Patient Home or Place of Residence documented in this encounter [facility] 01-26-2025 Telephone encounter Note We talked about increasing the dose every 3 days by 1 tablet. Please increase to 30 mg- 3 tablets at bedtime. I will send an order to increase to 50 mg on Thursday. Sending a 50 mg tablet to your pharmacy for cloth picker. I am not here on Wednesdays. Sorry that I did not get back with you. [facility] 01-26-2025 Miscellaneous Notes We talked about increasing the dose every 3 days by 1 tablet. Please increase to 30 mg- 3 tablets at bedtime. I will send an order to increase to 50 mg on Thursday. Sending a 50 mg tablet to your pharmacy for cloth picker. I am not here on Wednesdays. Sorry that I did not get back with you. If Pain management cannot get an MRI approved, I will not be able to get an MRI approved. They are the specialist. MRIs are reserved for operative planning, if surgical intervention is not needed.... Your insurance is not going to cover an MRI. What dose of the nortriptyline are you at? The new medication will do a great job on your pain as we get it to the proper dose. Do not worry. That is why I chose that medicine. Have you noticed any less dizziness yet? documented in this encounter [facility] 01-25-2025 Attending History and physical note UPDATED HISTORY AND PHYSICAL EXAMINATION SERVICE DATE: 01/25/2025 SERVICE TIME: 10:41 Participation of a fellow, resident, medical student, or advanced practice provider student in performing the sensitive examination was discussed with the patient or authorized patient care representative. The patient or authorized patient care representative has agreed to proceed with the sensitive examination. PHYSICAL EXAM MUST BE COMPLETED ON ADMISSION The History and Physical (completed in the past 30 days) has been reviewed and the patient has been examined. The contents accurately reflect the patient's condition with the following additions or revisions since the H&P was completed. Examination indicates no changes. This H&P can be found in the Electronic Medical Record . SIGNATURE: Antonietta Gonzalez MD PATIENT NAME: Fernanda Hernandez DATE: January 25, 2025 TIME: 10:41 AM Source Note - Pack, SHEKHAR Rodriguez - 01/17/2025 1:50 PM EDT DISTANCE HEALTH VISIT This Team Access Model visit is a virtual encounter. It required patient-provider interaction for the medical decision making as documented below. REASON FOR VISIT: GERD and flatulence HPI: Fernanda Hernandez is a 44 year old female history of gastric bypass surgery 5 years ago and cholecystectomy, presenting with increased gas, bloating, and loose stools. For the past 4 months, she has experienced excessive gas and bloating. On Thursday, she developed sudden, severe abdominal pain, described as sharp and located in the right anterior abdomen, with additional left flank pain. Since then, she has had persistent nausea and a sensation of abdominal fullness that limits her oral intake. She reports feeling so distended that she is walking like I'm . She reports 4-6 loose bowel movements per day, with an episode of diarrhea on Thursday when her symptoms began. She denies melena and unintentional weight loss. She has also experienced recurrent heartburn over the past few weeks, which had been absent since her gastric bypass surgery. The heartburn is severe enough to wake her from sleep. She has multiple allergies to acid-reducing medications, including Protonix and omeprazole, but is unsure of the specific agents. She is not currently taking any injectable medications such as Ozempic. She underwent a colonoscopy last year and has not had any recent stool testing. She denies any family history of GI disorders. Past Clinical Work-Up: Colon 02/04/24: A. Colon, random biopsies: - Benign colonic mucosa with focal features suggesting mild melanosis coli. ALLERGIES Allergen Reactions Aciphex [Rabeprazol* Rash Entex Pse [Pseudoep* INSOMNIA Nexium [Esomeprazol* Other: See Comments Made acid reflux worse Prevacid [Lansopraz* HEADACHE Prilosec [Omeprazol* HEADACHE Sulfa (Sulfonamide * Rash Wellbutrin [Bupropi* GI Upset PAST MEDICAL HISTORY Diagnosis Date Delayed emergence [...] LARGE BREAST 2014 TONSILLECTOMY & ADENOIDECTOMY AGE 12/2002 DR. E[facility]MAN FAMILY HISTORY Problem Relation Age of Onset Arthritis Mother Diabetes Mother Headache Father Lipids Father Headache Sister Diabetes Maternal Grandfather Stroke Maternal Grandfather Alcohol/Drug Paternal Grandmother ETOH Alcohol/Drug Paternal Grandfather ETOH Cancer Paternal Grandfather LUNG Alcohol/Drug Paternal Aunt ETOH Alcohol/Drug Paternal Uncle ETOH Cancer Paternal Uncle LUNG SOCIAL HISTORY[1] Current Outpatient Medications Medication Sig sucralfate (CARAFATE) 1 gram tablet Take 1 tablet by mouth before meals and at bedtime. nortriptyline (PAMELOR) 10 mg capsule Take 2 capsules by mouth daily at bedtime. cetirizine (ZYRTEC) 10 mg tablet Take 1 tablet by mouth two times a day for 5 days. predniSONE (DELTASONE) 20 mg tablet Take 2 tablets by mouth once daily for 5 days. meclizine (ANTIVERT) 25 mg tab Take 1 tablet by mouth every 6 hours as needed (for dizziness). Not to exceed 4 tablets in 24 hours scopolamine (TRANSDERM-SCOP) patch 1.5 mg/72 hr (delivers 1 mg over 3 days) Apply 1 patch as directed every 72 hours. gabapentin (NEURONTIN) 300 mg capsule Take 1 capsule by mouth once daily for 30 days. lamoTRIgine (LAMICTAL) 150 mg tablet Take 1 tablet by mouth daily at bedtime. take with 100 mg tablet for total daily dose 250 mg lamoTRIgine (LAMICTAL) 100 mg tablet Take 1 tablet by mouth daily at bedtime. take with 150 mg tablet for total daily dose 250 mg clonazePAM (KLONOPIN) 0.5 mg tablet can take Klonopin 0.5mg 1/2 tablet daily for anxiety attacks as needed, use very sparingly, do not mix with alcohol and do not drive after taking Max order is 5 pills or 10 doses per month norgestimate 0.25 mg-ethinyl estradiol 35 mcg (TAMARA) [...] No current facility-administered medications for this visit. I have confirmed and edited, if necessary, the PFSH obtained by others. REVIEW OF SYSTEMS: GENERAL: No weight loss, malaise or fevers RESPIRATORY: Negative for cough, hemoptysis, wheezing, dyspnea or shortness of breath CARDIOVASCULAR: Negative for chest pain, leg swelling, or palpitations GI: See HPI PHYSICAL EXAM: General - Normal, healthy, cooperative, in no acute distress Able to interact verbally by video conference Psych - ORIENTATION: normal to time place, person and situation Mood/Affect: AFFECT AND MOOD: Normal Head/Neuro - Normal size and shape Facial appearance normal Pulmonary - respiratory effort normal Cardiovascular - patient describes extremities normal, warm, no cyanosis,no clubbing, and no edema Abdominal - Not performed Skin - abnormal lesions not visualized Motor - patient seen sitting with Normal appearing strength and coordination ASSESSMENT/PLAN: Ms. Hernandez is a 44 year old female with a history of GERD,depression, fibromyalgia, gastric bypass, CLIFTON and anxiety presents for flatus and GERD. 1. Flatus (R14.3) 2. Right upper quadrant abdominal pain (R10.11) 3. Abdominal bloating (R14.0) Increased flatus, right upper quadrant abdominal pain, and abdominal bloating have been present for approximately 4 months. Patient has a history of gastric bypass surgery 5 years ago. - Ordered abdominal X-ray to evaluate etiology of symptoms. - Advised patient to present to the ED if pain worsens or symptoms do not resolve, so that imaging can be performed immediately. - [facility] once [facility]-ray results are available. 4. Gastroesophageal reflux disease without esophagitis (K21.9) Heartburn has recurred over the past few weeks after a period of remission post-gastric bypass surgery. Patient has multiple documented allergies to proton pump inhibitors. - Start Pepcid. - Continue Carafate as previously prescribed. - Follow-up in 1-2 months to assess response to medication. Total Time Spent: I spent a total of 30 minutes on the date of the service which included preparing to see the patient, [id number] patient care, completing clinical documentation, obtaining and/or reviewing separately obtained history, performing a medically appropriate examination, counseling and educating the patient/family/caregiver, ordering medications, tests, or procedures, communicating with other HCPs (not separately reported), independently interpreting results (not separately reported), communicating results to the patient/family/caregiver, and care coordination (not separately reported). Recording using Dynadmic software for draft documentation of the visit was discussed with the patient/authorized patient care representative; all questions welcomed and answered. Patient/authorized patient care representative agreed to proceed This note was dictated using MVERSE speech recognition software and may contain some errors that were a result of the program not accurately transcribing what was dictated. I have communicated my name and active licensure. The patient's identity and physical location were verified at the time of this visit. Either the patient or their legal patient care representative has been informed of the risks and benefits of -- and alternatives to -- treatment through a remote evaluation and consents to proceed with the evaluation remotely. Jennifer Rodriguez APRN.CNP [1] Social History Tobacco Use Smoking status: Former Current packs/day: 0.00 Average packs/day: 0.5 packs/day for 12.0 years (6.0 ttl pk-yrs) Types: Cigarettes Start date: 07/22/2001 Quit date: 07/22/2013 Years since quittin.4 Smokeless tobacco: Never Vaping Use Vaping status: Never Used Substance Use Topics Alcohol use: Not Currently Comment: Rarely Drug use: No [facility] 01-25-2025 History and physical note UPDATED HISTORY AND PHYSICAL EXAMINATION SERVICE DATE: 01/25/2025 SERVICE TIME: 10:41 Participation of a fellow, resident, medical student, or advanced practice provider student in performing the sensitive examination was discussed with the patient or authorized patient care representative. The patient or authorized patient care representative has agreed to proceed with the sensitive examination. PHYSICAL EXAM MUST BE COMPLETED ON ADMISSION The History and Physical (completed in the past 30 days) has been reviewed and the patient has been examined. The contents accurately reflect the patient's condition with the following additions or revisions since the H&P was completed. Examination indicates no changes. This H&P can be found in the Electronic Medical Record . SIGNATURE: Antonietta Gonzalez MD PATIENT NAME: Fernanda Hernandez DATE: January 25, 2025 TIME: 10:41 AM Source Note - Pack, PETR Rodriguez.SCIENCE PROFESSOR - 01/17/2025 1:50 PM EDT DISTANCE HEALTH VISIT This Team Access Model visit is a virtual encounter. It required patient-provider interaction for the medical decision making as documented below. REASON FOR VISIT: GERD and flatulence HPI: Fernanda Hernandez is a 44 year old female history of gastric bypass surgery 5 years ago and cholecystectomy, presenting with increased gas, bloating, and loose stools. For the past 4 months, she has experienced excessive gas and bloating. On Thursday, she developed sudden, severe abdominal pain, described as sharp and located in the right anterior abdomen, with additional left flank pain. Since then, she has had persistent nausea and a sensation of abdominal fullness that limits her oral intake. She reports feeling so distended that she is walking like I'm . She reports 4-6 loose bowel movements per day, with an episode of diarrhea on Thursday when her symptoms began. She denies melena and unintentional weight loss. She has also experienced recurrent heartburn over the past few weeks, which had been absent since her gastric bypass surgery. The heartburn is severe enough to wake her from sleep. She has multiple allergies to acid-reducing medications, including Protonix and omeprazole, but is unsure of the specific agents. She is not currently taking any injectable medications such as Ozempic. She underwent a colonoscopy last year and has not had any recent stool testing. She denies any family history of GI disorders. Past Clinical Work-Up: Colon 02/04/24: A. Colon, random biopsies: - Benign colonic mucosa with focal features suggesting mild melanosis coli. ALLERGIES Allergen Reactions Aciphex [Rabeprazol* Rash Entex Pse [Pseudoep* INSOMNIA Nexium [Esomeprazol* Other: See Comments Made acid reflux worse Prevacid [Lansopraz* HEADACHE Prilosec [Omeprazol* HEADACHE Sulfa (Sulfonamide * Rash Wellbutrin [Bupropi* GI Upset PAST MEDICAL HISTORY Diagnosis Date Delayed emergence [...] Uncle ETOH Cancer Paternal Uncle LUNG SOCIAL HISTORY[1] Current Outpatient Medications Medication Sig sucralfate (CARAFATE) 1 gram tablet Take 1 tablet by mouth before meals and at bedtime. nortriptyline (PAMELOR) 10 mg capsule Take 2 capsules by mouth daily at bedtime. cetirizine (ZYRTEC) 10 mg tablet Take 1 tablet by mouth two times a day for 5 days. predniSONE (DELTASONE) 20 mg tablet Take 2 tablets by mouth once daily for 5 days. meclizine (ANTIVERT) 25 mg tab Take 1 tablet by mouth every 6 hours as needed (for dizziness). Not to exceed 4 tablets in 24 hours scopolamine (TRANSDERM-SCOP) patch 1.5 mg/72 hr (delivers 1 mg over 3 days) Apply 1 patch as directed every 72 hours. gabapentin (NEURONTIN) 300 mg capsule Take 1 capsule by mouth once daily for 30 days. lamoTRIgine (LAMICTAL) 150 mg tablet Take 1 tablet by mouth daily at bedtime. take with 100 mg tablet for total daily dose 250 mg lamoTRIgine (LAMICTAL) 100 mg tablet Take 1 tablet by mouth daily at bedtime. take with 150 mg tablet for total daily dose 250 mg clonazePAM (KLONOPIN) 0.5 mg tablet can take Klonopin 0.5mg 1/2 tablet daily for anxiety attacks as needed, use very sparingly, do not mix with alcohol and do not drive after taking Max order is 5 pills or 10 doses per month norgestimate 0.25 mg-ethinyl estradiol 35 mcg (TAMARA) [...] No current facility-administered medications for this visit. I have confirmed and edited, if necessary, the PFSH obtained by others. REVIEW OF SYSTEMS: GENERAL: No weight loss, malaise or fevers RESPIRATORY: Negative for cough, hemoptysis, wheezing, dyspnea or shortness of breath CARDIOVASCULAR: Negative for chest pain, leg swelling, or palpitations GI: See HPI PHYSICAL EXAM: General - Normal, healthy, cooperative, in no acute distress Able to interact verbally by video conference Psych - ORIENTATION: normal to time place, person and situation Mood/Affect: AFFECT AND MOOD: Normal Head/Neuro - Normal size and shape Facial appearance normal Pulmonary - respiratory effort normal Cardiovascular - patient describes extremities normal, warm, no cyanosis,no clubbing, and no edema Abdominal - Not performed Skin - abnormal lesions not visualized Motor - patient seen sitting with Normal appearing strength and coordination ASSESSMENT/PLAN: Ms. Hernandez is a 44 year old female with a history of GERD,depression, fibromyalgia, gastric bypass, CL[place] and anxiety presents for flatus and GERD. 1. Flatus (R14.3) 2. Right upper quadrant abdominal pain (R10.11) 3. Abdominal bloating (R14.0) Increased flatus, right upper quadrant abdominal pain, and abdominal bloating have been present for approximately 4 months. Patient has a history of gastric bypass surgery 5 years ago. - Ordered abdominal X-ray to evaluate etiology of symptoms. - Advised patient to present to the ED if pain worsens or symptoms do not resolve, so that imaging can be performed immediately. - Will [facility] with [facility] once X-ray results are available. 4. Gastroesophageal reflux disease without esophagitis (K21.9) Heartburn has recurred over the past few weeks after a period of remission post-gastric bypass surgery. Patient has multiple documented allergies to proton pump inhibitors. - Start Pepcid. - Continue Carafate as previously prescribed. - Follow-up in 1-2 months to assess response to medication. Total Time Spent: I spent a total of 30 minutes on the date of the service which included preparing to see the patient, [id number] patient care, completing clinical documentation, obtaining and/or reviewing separately obtained history, performing a medically appropriate examination, counseling and educating the patient/family/caregiver, ordering medications, tests, or procedures, communicating with other HCPs (not separately reported), independently interpreting results (not separately reported), communicating results to the patient/family/caregiver, and care coordination (not separately reported). Recording using Dynadmic software for draft documentation of the visit was discussed with the patient/authorized patient care representative; all questions welcomed and answered. Patient/authorized patient care representative agreed to proceed This note was dictated using MVERSE speech recognition software and may contain some errors that were a result of the program not accurately transcribing what was dictated. I have communicated my name and active licensure. The patient's identity and physical location were verified at the time of this visit. Either the patient or their legal patient care representative has been informed of the risks and benefits of -- and alternatives to -- treatment through a remote evaluation and consents to proceed with the evaluation remotely. Jennifer Rodriguez APRN.CNP [1] Social History Tobacco Use Smoking status: Former Current packs/day: 0.00 Average packs/day: 0.5 packs/day for 12.0 years (6.0 ttl pk-yrs) Types: Cigarettes Start date: 07/22/2001 Quit date: 07/22/2013 Years since quittin.4 Smokeless tobacco: Never Vaping Use Vaping status: Never Used Substance Use Topics Alcohol use: Not Currently Comment: Rarely Drug use: No documented in this encounter [facility] 01-24-2025 Telephone encounter Note If Pain management cannot get an MRI approved, I will not be able to get an MRI approved. They are the specialist. MRIs are reserved for operative planning, if surgical intervention is not needed.... Your insurance is not going to cover an MRI. What dose of the nortriptyline are you at? [facility] 01-20-2025 Telephone encounter Note The new medication will do a great job on your pain as we get it to the proper dose. Do not worry. That is why I chose that medicine. Have you noticed any less dizziness yet? [facility] 01-17-2025 History of Present illness Narrative Radiology Service Progress Note PATIENT NAME: Fernanda Hernandez DATE OF SERVICE: January 17, 2025 TIME: 6:25 PM PATIENT IDENTITY VERIFICATION COMPLETED USING TWO (2) IDENTIFIERS: Name and Date of confirmed by patient verbally. FALL SCREENING: Has the patient had 2 falls in the last year or 1 fall with injury or currently using an Ambulatory Assistive Device (Walker, Cane, Wheelchair, Crutches, etc.)? No PATIENT GENDER DATA: Assigned female at . status: : No status: NO. PATIENT RELEVANT IMPLANT DATA REVIEWED: Yes PATIENT PRESENTS WITH AN IMPLANTABLE OR ATTACHED COTTAGE PARENT: No RADIOLOGY DEPARTMENT: General X-ray: Exam(s) Completed: Abdomen X-Ray: Abdomen with Upright PERIPHERAL IV DATA: Not applicable SIGNED BY: Naomi Herzog January 17, 2025 6:25 PM documented in this encounter [facility] 01-17-2025 Note HNO ID: [id number] Author: LILLIE HERNANDEZ Tech Service: ? Author Type: Patient Care Representative Type: Progress Notes Filed: 01/17/2025 18:25 Note Text: Radiology Service Progress Note PATIENT NAME: Fernanda Hernandez DATE OF SERVICE: January 17, 2025 TIME: 6:25 PM PATIENT IDENTITY VERIFICATION COMPLETED USING TWO (2) IDENTIFIERS: Name and Date of confirmed by patient verbally. FALL SCREENING: Has the patient had 2 falls in the last year or 1 fall with injury or currently using an Ambulatory Assistive Device (Walker, Cane, Wheelchair, Crutches, etc.)? No PATIENT GENDER DATA: Assigned female at . status: : No status: NO. PATIENT RELEVANT IMPLANT DATA REVIEWED: Yes PATIENT PRESENTS WITH AN IMPLANTABLE OR ATTACHED COTTAGE PARENT: No RADIOLOGY DEPARTMENT: General X-ray: Exam(s) Completed: Abdomen X-Ray: Abdomen with Upright PERIPHERAL IV DATA: Not applicable SIGNED BY: Naomi Herzog January 17, 2025 6:25 PM [facility] 01-17-2025 Instructions Jennifer Rodriguez APRN.SCIENCE PROFESSOR - 01/17/2025 1:58 PM EDT Thank you for seeing me in clinic today. As we discussed, my recommendations are as follows: 1.X ray 2.pepcid 20 mg 3.Continue Carafate as ordered Please try to adhere to the following lifestyle habits that can help mitigate acid reflux symptoms: Avoid trigger foods , or food/drink that tend to precipitate acid reflux symptoms. Common offenders include alcohol, fatty/spicy meals, tomato sauce, chocolate, caffeinated beverages such as coffee and tea, carbonated beverages and peppermint. Elevate the head of your bed to 45 degrees (or 6 inches above) with a foam wedge or 2-3 pillows, especially if symptoms occur at night or early in the morning Remain upright for at least 3 hours after meals Avoid late night snacking Make efforts to reduce overall stress and anxiety, if able OBESE/OVERWEIGHT: Losing weight can be one of the most effective ways to reduce acid reflux symptoms and, in some cases, reduce the need for long-term acid suppression. Aim to lose 10-15 lbs over the next 6 months if possible with dietary modifications and exercise, if deemed safe by your primary care provider or lsat instructor. SMOKERS: Stop smoking PPI users: Take your proton pump inhibitor, such as Prilosec, Protonix or Nexium, as prescribed. It works best if you take this 30-60 minutes before a meal on an empty stomach. Avoid medications like ibuprofen (Motrin, Advil), naproxen (Aleve) and meloxicam (Mobic) as these can irritate the stomach and cause ulcers. Tylenol is a reasonable alternative if needed for pain control purely from an acid reflux standpoint since it does not irritate the stomach. If you have any questions about the above treatment plan, please do not hesitate to call the office or send me a [employer] message. documented in this encounter [facility] 01-17-2025 History and physical note DISTANCE HEALTH VISIT This Team Access Model visit is a virtual encounter. It required patient-provider interaction for the medical decision making as documented below. REASON FOR VISIT: GERD and flatulence HPI: Fernanda Hernandez is a 44 year old female history of gastric bypass surgery 5 years ago and cholecystectomy, presenting with increased gas, bloating, and loose stools. For the past 4 months, she has experienced excessive gas and bloating. On Thursday, she developed sudden, severe abdominal pain, described as sharp and located in the right anterior abdomen, with additional left flank pain. Since then, she has had persistent nausea and a sensation of abdominal fullness that limits her oral intake. She reports feeling so distended that she is walking like I'm . She reports 4-6 loose bowel movements per day, with an episode of diarrhea on Thursday when her symptoms began. She denies melena and unintentional weight loss. She has also experienced recurrent heartburn over the past few weeks, which had been absent since her gastric bypass surgery. The heartburn is severe enough to wake her from sleep. She has multiple allergies to acid-reducing medications, including Protonix and omeprazole, but is unsure of the specific agents. She is not currently taking any injectable medications such as Ozempic. She underwent a colonoscopy last year and has not had any recent stool testing. She denies any family history of GI disorders. Past Clinical Work-Up: Colon 02/04/24: A. Colon, random biopsies: - Benign colonic mucosa with focal features suggesting mild melanosis coli. ALLERGIES Allergen Reactions Aciphex [Rabeprazol* Rash Entex Pse [Pseudoep* INSOMNIA Nexium [Esomeprazol* Other: See Comments Made acid reflux worse Prevacid [Lansopraz* HEADACHE Prilosec [Omeprazol* HEADACHE Sulfa (Sulfonamide * Rash Wellbutrin [Bupropi* GI Upset PAST MEDICAL HISTORY Diagnosis Date Delayed emergence [...] Uncle ETOH Cancer Paternal Uncle LUNG SOCIAL HISTORY[1] Current Outpatient Medications Medication Sig sucralfate (CARAFATE) 1 gram tablet Take 1 tablet by mouth before meals and at bedtime. nortriptyline (PAMELOR) 10 mg capsule Take 2 capsules by mouth daily at bedtime. cetirizine (ZYRTEC) 10 mg tablet Take 1 tablet by mouth two times a day for 5 days. predniSONE (DELTASONE) 20 mg tablet Take 2 tablets by mouth once daily for 5 days. meclizine (ANTIVERT) 25 mg tab Take 1 tablet by mouth every 6 hours as needed (for dizziness). Not to exceed 4 tablets in 24 hours scopolamine (TRANSDERM-SCOP) patch 1.5 mg/72 hr (delivers 1 mg over 3 days) Apply 1 patch as directed every 72 hours. gabapentin (NEURONTIN) 300 mg capsule Take 1 capsule by mouth once daily for 30 days. lamoTRIgine (LAMICTAL) 150 mg tablet Take 1 tablet by mouth daily at bedtime. take with 100 mg tablet for total daily dose 250 mg lamoTRIgine (LAMICTAL) 100 mg tablet Take 1 tablet by mouth daily at bedtime. take with 150 mg tablet for total daily dose 250 mg clonazePAM (KLONOPIN) 0.5 mg tablet can take Klonopin 0.5mg 1/2 tablet daily for anxiety attacks as needed, use very sparingly, do not mix with alcohol and do not drive after taking Max order is 5 pills or 10 doses per month norgestimate 0.25 mg-ethinyl estradiol 35 mcg (TAMARA) [...] No current facility-administered medications for this visit. I have confirmed and edited, if necessary, the PFSH obtained by others. REVIEW OF SYSTEMS: GENERAL: No weight loss, malaise or fevers RESPIRATORY: Negative for cough, hemoptysis, wheezing, dyspnea or shortness of breath CARDIOVASCULAR: Negative for chest pain, leg swelling, or palpitations GI: See HPI PHYSICAL EXAM: General - Normal, healthy, cooperative, in no acute distress Able to interact verbally by video conference Psych - ORIENTATION: normal to time place, person and situation Mood/Affect: AFFECT AND MOOD: Normal Head/Neuro - Normal size and shape Facial appearance normal Pulmonary - respiratory effort normal Cardiovascular - patient describes extremities normal, warm, no cyanosis,no clubbing, and no edema Abdominal - Not performed Skin - abnormal lesions not visualized Motor - patient seen sitting with Normal appearing strength and coordination ASSESSMENT/PLAN: Ms. Hernandez is a 44 year old female with a history of GERD,depression, fibromyalgia, gastric bypass, CL[place] and anxiety presents for flatus and GERD. 1. Flatus (R14.3) 2. Right upper quadrant abdominal pain (R10.11) 3. Abdominal bloating (R14.0) Increased flatus, right upper quadrant abdominal pain, and abdominal bloating have been present for approximately 4 months. Patient has a history of gastric bypass surgery 5 years ago. - Ordered abdominal X-ray to evaluate etiology of symptoms. - Advised patient to present to the ED if pain worsens or symptoms do not resolve, so that imaging can be performed immediately. - [facility] once X-ray results are available. 4. Gastroesophageal reflux disease without esophagitis (K21.9) Heartburn has recurred over the past few weeks after a period of remission post-gastric bypass surgery. Patient has multiple documented allergies to proton pump inhibitors. - Start Pepcid. - Continue Carafate as previously prescribed. - Follow-up in 1-2 months to assess response to medication. Total Time Spent: I spent a total of 30 minutes on the date of the service which included preparing to see the patient, [id number] patient care, completing clinical documentation, obtaining and/or reviewing separately obtained history, performing a medically appropriate examination, counseling and educating the patient/family/caregiver, ordering medications, tests, or procedures, communicating with other HCPs (not separately reported), independently interpreting results (not separately reported), communicating results to the patient/family/caregiver, and care coordination (not separately reported). Recording using Dynadmic software for draft documentation of the visit was discussed with the patient/authorized patient care representative; all questions welcomed and answered. Patient/authorized patient care representative agreed to proceed This note was dictated using MVERSE speech recognition software and may contain some errors that were a result of the program not accurately transcribing what was dictated. I have communicated my name and active licensure. The patient's identity and physical location were verified at the time of this visit. Either the patient or their legal patient care representative has been informed of the risks and benefits of -- and alternatives to -- treatment through a remote evaluation and consents to proceed with the evaluation remotely. Jennifer Rodriguez APRN.CNP [1] Social History Tobacco Use Smoking status: Former Current packs/day: 0.00 Average packs/day: 0.5 packs/day for 12.0 years (6.0 ttl pk-yrs) Types: Cigarettes Start date: 07/22/2001 Quit date: 07/22/2013 Years since quittin.4 Smokeless tobacco: Never Vaping Use Vaping status: Never Used Substance Use Topics Alcohol use: Not Currently Comment: Rarely Drug use: No [facility] 01-17-2025 History and physical note DISTANCE HEALTH VISIT This Team Access Model visit is a virtual encounter. It required patient-provider interaction for the medical decision making as documented below. REASON FOR VISIT: GERD and flatulence HPI: Fernanda Hernandez is a 44 year old female history of gastric bypass surgery 5 years ago and cholecystectomy, presenting with increased gas, bloating, and loose stools. For the past 4 months, she has experienced excessive gas and bloating. On Thursday, she developed sudden, severe abdominal pain, described as sharp and located in the right anterior abdomen, with additional left flank pain. Since then, she has had persistent nausea and a sensation of abdominal fullness that limits her oral intake. She reports feeling so distended that she is walking like I'm . She reports 4-6 loose bowel movements per day, with an episode of diarrhea on Thursday when her symptoms began. She denies melena and unintentional weight loss. She has also experienced recurrent heartburn over the past few weeks, which had been absent since her gastric bypass surgery. The heartburn is severe enough to wake her from sleep. She has multiple allergies to acid-reducing medications, including Protonix and omeprazole, but is unsure of the specific agents. She is not currently taking any injectable medications such as Ozempic. She underwent a colonoscopy last year and has not had any recent stool testing. She denies any family history of GI disorders. Past Clinical Work-Up: Colon 02/04/24: A. Colon, random biopsies: - Benign colonic mucosa with focal features suggesting mild melanosis coli. ALLERGIES Allergen Reactions Aciphex [Rabeprazol* Rash Entex Pse [Pseudoep* INSOMNIA Nexium [Esomeprazol* Other: See Comments Made acid reflux worse Prevacid [Lansopraz* HEADACHE Prilosec [Omeprazol* HEADACHE Sulfa (Sulfonamide * Rash Wellbutrin [Bupropi* GI Upset PAST MEDICAL HISTORY Diagnosis Date Delayed emergence [...] Uncle ETOH Cancer Paternal Uncle LUNG SOCIAL HISTORY[1] Current Outpatient Medications Medication Sig sucralfate (CARAFATE) 1 gram tablet Take 1 tablet by mouth before meals and at bedtime. nortriptyline (PAMELOR) 10 mg capsule Take 2 capsules by mouth daily at bedtime. cetirizine (ZYRTEC) 10 mg tablet Take 1 tablet by mouth two times a day for 5 days. predniSONE (DELTASONE) 20 mg tablet Take 2 tablets by mouth once daily for 5 days. meclizine (ANTIVERT) 25 mg tab Take 1 tablet by mouth every 6 hours as needed (for dizziness). Not to exceed 4 tablets in 24 hours scopolamine (TRANSDERM-SCOP) patch 1.5 mg/72 hr (delivers 1 mg over 3 days) Apply 1 patch as directed every 72 hours. gabapentin (NEURONTIN) 300 mg capsule Take 1 capsule by mouth once daily for 30 days. lamoTRIgine (LAMICTAL) 150 mg tablet Take 1 tablet by mouth daily at bedtime. take with 100 mg tablet for total daily dose 250 mg lamoTRIgine (LAMICTAL) 100 mg tablet Take 1 tablet by mouth daily at bedtime. take with 150 mg tablet for total daily dose 250 mg clonazePAM (KLONOPIN) 0.5 mg tablet can take Klonopin 0.5mg 1/2 tablet daily for anxiety attacks as needed, use very sparingly, do not mix with alcohol and do not drive after taking Max order is 5 pills or 10 doses per month norgestimate 0.25 mg-ethinyl estradiol 35 mcg (TAMARA) [...] No current facility-administered medications for this visit. I have confirmed and edited, if necessary, the PFSH obtained by others. REVIEW OF SYSTEMS: GENERAL: No weight loss, malaise or fevers RESPIRATORY: Negative for cough, hemoptysis, wheezing, dyspnea or shortness of breath CARDIOVASCULAR: Negative for chest pain, leg swelling, or palpitations GI: See HPI PHYSICAL EXAM: General - Normal, healthy, cooperative, in no acute distress Able to interact verbally by video conference Psych - ORIENTATION: normal to time place, person and situation Mood/Affect: AFFECT AND MOOD: Normal Head/Neuro - Normal size and shape Facial appearance normal Pulmonary - respiratory effort normal Cardiovascular - patient describes extremities normal, warm, no cyanosis,no clubbing, and no edema Abdominal - Not performed Skin - abnormal lesions not visualized Motor - patient seen sitting with Normal appearing strength and coordination ASSESSMENT/PLAN: Ms. Hernandez is a 44 year old female with a history of GERD,depression, fibromyalgia, gastric bypass, [place] and anxiety presents for flatus and GERD. 1. Flatus (R14.3) 2. Right upper quadrant abdominal pain (R10.11) 3. Abdominal bloating (R14.0) Increased flatus, right upper quadrant abdominal pain, and abdominal bloating have been present for approximately 4 months. Patient has a history of gastric bypass surgery 5 years ago. - Ordered abdominal X-ray to evaluate etiology of symptoms. - Advised patient to present to the ED if pain worsens or symptoms do not resolve, so that imaging can be performed immediately. - [facility] once [facility] results are available. 4. Gastroesophageal reflux disease without esophagitis (K21.9) Heartburn has recurred over the past few weeks after a period of remission post-gastric bypass surgery. Patient has multiple documented allergies to proton pump inhibitors. - Start Pepcid. - Continue Carafate as previously prescribed. - Follow-up in 1-2 months to assess response to medication. Total Time Spent: I spent a total of 30 minutes on the date of the service which included preparing to see the patient, [id number] patient care, completing clinical documentation, obtaining and/or reviewing separately obtained history, performing a medically appropriate examination, counseling and educating the patient/family/caregiver, ordering medications, tests, or procedures, communicating with other HCPs (not separately reported), independently interpreting results (not separately reported), communicating results to the patient/family/caregiver, and care coordination (not separately reported). Recording using Dynadmic software for draft documentation of the visit was discussed with the patient/authorized patient care representative; all questions welcomed and answered. Patient/authorized patient care representative agreed to proceed This note was dictated using MVERSE speech recognition software and may contain some errors that were a result of the program not accurately transcribing what was dictated. I have communicated my name and active licensure. The patient's identity and physical location were verified at the time of this visit. Either the patient or their legal patient care representative has been informed of the risks and benefits of -- and alternatives to -- treatment through a remote evaluation and consents to proceed with the evaluation remotely. Jennifer Rodriguez APRN.CNP [1] Social History Tobacco Use Smoking status: Former Current packs/day: 0.00 Average packs/day: 0.5 packs/day for 12.0 years (6.0 ttl pk-yrs) Types: Cigarettes Start date: 07/22/2001 Quit date: 07/22/2013 Years since quittin.4 Smokeless tobacco: Never Vaping Use Vaping status: Never Used Substance Use Topics Alcohol use: Not Currently Comment: Rarely Drug use: No documented in this encounter [facility] 01-17-2025 Instructions Bettina Fuentes APRN.CNP - 01/17/2025 10:22 AM EDT - Stop taking duloxetine (Cymbalta) today. - Begin nortriptyline (generic Pamelor) at bedtime using this schedule: 10 mg (one tablet) each night for 3 nights 20 mg (two tablets) each night for the next 3 nights 30 mg (three tablets) each night for the following 3 nights If your mood, headaches, or back pain have not improved by then, increase to 50 mg at bedtime and let me know how you re doing. - Monitor your mood, headache frequency, back pain, and any dizziness or sleepiness while on nortriptyline, and report if you experience new or worsening side effects. - Take sucralfate (Carafate) tablets for 30 days to ease heartburn and stomach discomfort: dissolve each tablet in a little water and drink it about 30 minutes before meals and once at bedtime. - A referral to a edgerman has been placed to evaluate your ongoing abdominal pain, gas, diarrhea, and bloating--call the office if you do not receive appointment details soon. - Your lab work and urine test from this morning are normal (blood counts, kidney and liver tests, cholesterol panel, thyroid, and urinalysis all within expected ranges). - If your abdominal symptoms worsen, you develop fever or severe pain, or you have concerns about any new symptoms, contact the clinic promptly. documented in this encounter [facility] 01-17-2025 Note HNO ID: [id number] Author: BETTINA FUENTES APRN.CNP Service: ? Author Type: Nurse Practitioner Type: Progress Notes Filed: 01/17/2025 10:25 Note Text: This is a 44 year old female who presents today with: Patient presents with: Abdominal Pain: Right flank pain, lower left back pain. Gas, bloating, frequent loose bowel movements, sometimes diarrhea. Balance: Feeling off balance HISTORY OF PRESENT ILLNESS: Fernanda Hernandez is a 44 year old female. Patient presents with: Abdominal Pain: Right flank pain, lower left back pain. Gas, bloating, frequent loose bowel movements, sometimes diarrhea. Balance: Feeling off balance The patient is a 44-year-old female with depression and chronic low back pain, presenting for evaluation of persistent dizziness and acute onset abdominal pain with bloating and diarrhea. Abdominal Pain and Diarrhea: - Acute onset of abdominal pain, diarrhea, and bloating began on Thursday after Fernanda Hernandez ate a Caesar salad, raspberry oat bar, and strawberry banana smoothie at a cafe in [place]. - Severe abdominal cramping and gas followed shortly after eating, with multiple bowel movements and significant fatigue. - Pain localized to Fernanda's right flank and left lower back, described as sharp and constant. - Denies radiation of pain to the legs. - Associated symptoms include nausea, heartburn, and facial flushing. - Denies fever, emesis, or hematuria. - Recent increase in frequency and severity of diarrhea over the past couple of months. - History of gastric bypass surgery 5 years ago. - Last colonoscopy was performed last year. Dizziness: - Persistent dizziness, possibly related to current medication duloxetine. - Denies syncope or vertigo. Depression and Anxiety: - Currently taking duloxetine for depression and anxiety, as well as chronic back pain management. - Fernanda reports irritability and depression, with minimal anxiety. - Denies suicidal ideation. - Concerns about potential serotonin syndrome with medication changes. - Taking Lamictal and gabapentin. Chronic Back Pain: - Chronic back pain managed with duloxetine. - Recent onset of sharp, constant pain in Daisys right flank and left lower back. - Denies radiation of pain to the legs. PAST MEDICAL HISTORY: PAST MEDICAL HISTORY Diagnosis [...] MEDICATIONS Current Outpatient Medications Medication Sig DULoxetine DR (CYMBALTA) 30 mg capsule Take 30 mg by mouth once daily. cetirizine (ZYRTEC) 10 mg tablet Take 1 tablet by mouth two times a day for 5 days. predniSONE (DELTASONE) 20 mg tablet Take 2 tablets by mouth once daily for 5 days. meclizine (ANTIVERT) 25 mg tab Take 1 tablet by mouth every 6 hours as needed (for dizziness). Not to exceed 4 tablets in 24 hours scopolamine (TRANSDERM-SCOP) patch 1.5 mg/72 hr (delivers 1 mg over 3 days) Apply 1 patch as directed every 72 hours. gabapentin (NEURONTIN) 300 mg capsule Take 1 capsule by mouth once daily for 30 days. lamoTRIgine (LAMICTAL) 150 mg tablet Take 1 tablet by mouth daily at bedtime. take with 100 mg tablet for total daily dose 250 mg lamoTRIgine (LAMICTAL) 100 mg tablet Take 1 tablet by mouth daily at bedtime. take with 150 mg tablet for total daily dose 250 mg clonazePAM (KLONOPIN) 0.5 mg tablet can take Klonopin 0.5mg 1/2 tablet daily for anxiety attacks as needed, use very sparingly, do not mix with alcohol and do not drive after taking Max order is 5 pills or 10 doses per month norgestimate 0.25 mg-ethinyl estradiol 35 mcg (TAMARA) 0.25-35 mg-mcg per tablet Take 1 tablet by mouth once daily. Take active pills only. No inactive week. MAGNESIUM GLYCINATE ORAL Take 200 mg by mouth once daily. Multivitamin capsule Take 1 capsule by mouth onc (more content not included)... [facility] 01-17-2025 History of Present illness Narrative This is a 44 year old female who presents today with: Patient presents with: Abdominal Pain: Right flank pain, lower left back pain. Gas, bloating, frequent loose bowel movements, sometimes diarrhea. Balance: Feeling off balance HISTORY OF PRESENT ILLNESS: Fernanda Hernandez is a 44 year old female. Patient presents with: Abdominal Pain: Right flank pain, lower left back pain. Gas, bloating, frequent loose bowel movements, sometimes diarrhea. Balance: Feeling off balance The patient is a 44-year-old female with depression and chronic low back pain, presenting for evaluation of persistent dizziness and acute onset abdominal pain with bloating and diarrhea. Abdominal Pain and Diarrhea: - Acute onset of abdominal pain, diarrhea, and bloating began on Thursday after Fernanda Hernandez ate a Caesar salad, raspberry oat bar, and strawberry banana smoothie at a cafe in [place]. - Severe abdominal cramping and gas followed shortly after eating, with multiple bowel movements and significant fatigue. - Pain localized to Fernanda's right flank and left lower back, described as sharp and constant. - Denies radiation of pain to the legs. - Associated symptoms include nausea, heartburn, and facial flushing. - Denies fever, emesis, or hematuria. - Recent increase in frequency and severity of diarrhea over the past couple of months. - History of gastric bypass surgery 5 years ago. - Last colonoscopy was performed last year. Dizziness: - Persistent dizziness, possibly related to current medication duloxetine. - Denies syncope or vertigo. Depression and Anxiety: - Currently taking duloxetine for depression and anxiety, as well as chronic back pain management. - Fernanda reports irritability and depression, with minimal anxiety. - Denies suicidal ideation. - Concerns about potential serotonin syndrome with medication changes. - Taking Lamictal and gabapentin. Chronic Back Pain: - Chronic back pain managed with duloxetine. - Recent onset of sharp, constant pain in Daisys right flank and left lower back. - Denies radiation of pain to the legs. PAST MEDICAL HISTORY: PAST MEDICAL HISTORY Diagnosis [...] MEDICATIONS Current Outpatient Medications Medication Sig DULoxetine DR (CYMBALTA) 30 mg capsule Take 30 mg by mouth once daily. cetirizine (ZYRTEC) 10 mg tablet Take 1 tablet by mouth two times a day for 5 days. predniSONE (DELTASONE) 20 mg tablet Take 2 tablets by mouth once daily for 5 days. meclizine (ANTIVERT) 25 mg tab Take 1 tablet by mouth every 6 hours as needed (for dizziness). Not to exceed 4 tablets in 24 hours scopolamine (TRANSDERM-SCOP) patch 1.5 mg/72 hr (delivers 1 mg over 3 days) Apply 1 patch as directed every 72 hours. gabapentin (NEURONTIN) 300 mg capsule Take 1 capsule by mouth once daily for 30 days. lamoTRIgine (LAMICTAL) 150 mg tablet Take 1 tablet by mouth daily at bedtime. take with 100 mg tablet for total daily dose 250 mg lamoTRIgine (LAMICTAL) 100 mg tablet Take 1 tablet by mouth daily at bedtime. take with 150 mg tablet for total daily dose 250 mg clonazePAM (KLONOPIN) 0.5 mg tablet can take Klonopin 0.5mg 1/2 tablet daily for anxiety attacks as needed, use very sparingly, do not mix with alcohol and do not drive after taking Max order is 5 pills or 10 doses per month norgestimate 0.25 mg-ethinyl estradiol 35 mcg (TAMARA) [...] Uncle ETOH Cancer Paternal Uncle LUNG SOCIAL HISTORY[1] REVIEW OF SYSTEMS Constitutional: (+ fatigue), (- fever) Cardiovascular: (- chest pain), (- leg swelling), (- palpitations) Respiratory: (- shortness of breath), (- cough), (- wheezing) Gastrointestinal: (+ abdominal cramping), (+ abdominal pain), (+ abdominal bloating), (+ increased flatulence), (+ diarrhea), (+ nausea), (+ heartburn), (+ decreased appetite), (- vomiting) Genitourinary: (- dysuria), (- hematuria) , (-) CVA tenderness left Musculoskeletal: (+ right lateral abdinal pain), (+ left low back pain) Skin: (+ facial flushing) Neurological: (+ dizziness), (+ headache) Psychiatric: (+ irritability), (+ depressed mood), (- suicidal ideation) Endocrine: (- polydipsia) EXAM: BP 134/80 Pulse 70 Temp 36.4 C (97.6 F) Wt 110.7 kg (244 lb) LMP 08/28/2020 (Approximate) SpO2 100% BMI 44.63 kg/m PHYSICAL EXAM: GENERAL: NAD, alert and oriented. SKIN: Unremarkable, no rash or skin lesions. HEAD: Normocephalic. EYES: PERRLA, EOMI, conjunctiva clear. EARS: External ears normal, canals clear, TM's normal. NOSE/SINUSES: Nares normal. Septum midline. OROPHARYNX: Lips, mucosa, and tongue normal, good dentition. No oral lesions noted. NECK: Supple, no lymphadenopathy, normal thyroid, no carotid bruits. LUNGS: Clear to auscultation bilaterally, no wheezes/rhonchi/rales. HEART: Regular rate and rhythm, no murmurs. No ectopy. EXTREMITIES: Normal, no deformities, no skin discoloration, no edema. ABDOMEN: Soft, mildly tender in the right upper quadrant, warmth noted. No rebound tenderness or guarding. Bowel sounds hyperactive. Negative CVA tenderness left. NEURO: Awake, alert and oriented x3, cranial nerves II-XII grossly intact, normal gait, no involuntary motions. LABS: Labs: (Today) - CBC: - WBC: 9.4 10 / L - Hemoglobin: 13.6 g/dL - Hematocrit: 40.9% - Platelets: 333 10 / L - Differential: Within normal limits - CMP: - Sodium: 143 mmol/L - Potassium: 4.1 mmol/L - BUN: 8 mg/dL - Creatinine: 0.7 mg/dL - Glucose: 93 mg/dL - Phosphorus: 3.1 mg/dL - AST: 21 U/L - ALT: 22 U/L - Alkaline Phosphatase: 67 U/L - LDH: 213 U/L - Uric Acid: 3.7 mg/dL - TSH: 1.26 IU/mL - Lipid Panel: - Total Cholesterol: 154 mg/dL - Triglyceride: 77 mg/dL - HDL: 81 mg/dL - LDL: 58 mg/dL - Urinalysis: Normal Imaging: Tests: - Colonoscopy: Incomplete visualization; no significant abnormalities reported. ASSESSMENT/PLAN: 1. Acute left-sided low back pain without sciatica (M54.50) 2. Diarrhea, unspecified type (R19.7) 3. Flatus (R14.3) 4. Right upper quadrant abdominal pain (R10.11) - Symptoms began acutely after eating at a cafe, including severe abdominal cramping, bloating, increased flatus, and multiple loose stools; right flank and left low back pain are new and distinct from chronic back pain. - Labs reviewed: WBC 9.4, Hgb 13.6, Hct 40.9, platelets 333, sodium 143, potassium 4.1, BUN 8, creatinine 0.7, glucose 93, uric acid 3.7, phosphorus 3.1, AST 21, ALT 22, alk phos 67, LDH 213, total cholesterol 154, triglyceride 77, HDL 81, LDL 58, GFR 125, TSH 1.26; all within normal limits. - Urinalysis normal. - Start sucralfate (Carafate) for 30 days to coat the stomach and alleviate discomfort; instructed to dissolve tablets in water and take 30 minutes before meals and at bedtime. - Refer to GI for further evaluation. 5. Gastroesophageal reflux disease without esophagitis (K21.9) - Recent onset of heartburn, which has not occurred since gastric bypass 5 years ago. - Start sucralfate (Carafate) for 30 days to coat the stomach and alleviate discomfort; instructed to dissolve tablets in water and take 30 minutes before meals and at bedtime. - Refer to GI for further evaluation. 6. Severe recurrent major depression without psychotic features (HCC) (F33.2) 7. Dizziness (R42) - Dizziness likely related to duloxetine; patient currently on 30 mg. - Discontinue duloxetine. - Start nortriptyline 10 mg at bedtime for 3 days, then increase to 20 mg at bedtime for 3 days, then 30 mg at bedtime for 3 days as needed for mood, headache, and back pain; may increase to 50 mg if no improvement. - Discussed risks and benefits of nortriptyline, including its use for depression and pain control, and its serotonergic properties. - Patient educated on dosing schedule and potential side effects; patient expressed understanding and agreement with plan. 8. Headache, unspecified headache type (R51.9) - Recent onset of headaches over the past 2 weeks. - Start nortriptyline as above, which may also help with headaches. Discussed treatment plan and patient voices understanding. Patient's questions answered appropriately. Medications and potential side effects were discussed and patient voices understanding. Return to the office as scheduled or as needed for worsening/no improvement. Bettina Fuentes APRN.CNP [1] Social History Tobacco Use Smoking status: Former Current packs/day: 0.00 Average packs/day: 0.5 packs/day for 12.0 years (6.0 ttl pk-yrs) Types: Cigarettes Start date: 07/22/2001 Quit date: 07/22/2013 Years since quittin.4 Smokeless tobacco: Never Vaping Use Vaping status: Never Used Substance Use Topics Alcohol use: Not Currently Comment: Rarely Drug use: No documented in this encounter [facility] 01-12-2025 Note HNO ID: [id number] Author: BERNADETTE WINTERS PA Service: ? Author Type: Physician Employee Counselor Type: Progress Notes Filed: 01/12/2025 08:43 Note Text: [facility] Subjective Fernanda Hernandez is a 44 year old female. Patient presents with: Rash: On face x1 day, itching whole body, nausea, feeling off balance HPI Rash: - Rash on cheeks and ears began on Thursday. - Noted tingling and pruritus in the ears, with the left ear being more affected. - Consumed a small amount of lobster and used a new hair product on Thursday. - Pruritus on legs and lower back, but no visible rash. - No dyspnea or dysphagia. - No current use of allergy medications. Vestibular Symptoms: - Intermittent imbalance began last . - History of vertigo; recently evaluated by a vestibular specialist who diagnosed a vestibular disorder. - Denies constant imbalance. - Balance issues unchanged. - Denies feeling off balance currently. No headache, dizziness, lightheadedness, vision changes. Review of Systems Head: (+) headache Ears/Nose/Mouth/Throat: (+) ear pruritus, (+) ear paresthesia, (-) dysphagia Neck: (+) neck pain Respiratory: (-) dyspnea Gastrointestinal: (-) vomiting Skin: (+) facial rash, (+) auricular rash, (+) leg pruritus Neurological: (+) imbalance Objective BP 137/82 Pulse 70 Temp 36.8 ?C (98.3 ?F) Resp 18 Wt 110.6 kg (243 lb 13.3 oz) LMP 08/28/2020 (Approximate) SpO2 98% BMI 44.60 kg/m? Physical Exam Vitals and nursing note reviewed. Constitutional: General: She is not in acute distress. Appearance: Normal appearance. She is not toxic-appearing. HENT: Right Ear: Tympanic membrane and ear canal normal. Left Ear: Tympanic membrane and ear canal normal. Nose: Nose normal. Mouth/Throat: Mouth: Mucous membranes are moist. Cardiovascular: Rate and Rhythm: Normal rate and regular rhythm. Pulmonary: Effort: Pulmonary effort is normal. Breath sounds: Normal breath sounds. Skin: General: Skin is warm and dry. Findings: Rash present. Comments: Erythematous rash on right cheek and bilateral ears. Left ear slightly swollen due to rash and inflammation. No rash anywhere else. No oral involvement. No tongue or floor of mouth swelling. Throat clear. Neurological: Mental Status: She is alert. { 1. Allergic reaction, initial encounter (T78.40XA) - Acute allergic reaction likely triggered by lobster ingestion or new hair product use on Thursday. - No signs of anaphylaxis. - Start Zyrtec 10 mg PO BID. - Start prednisone to reduce inflammation. - Advised avoidance of shellfish and new hair product until further evaluation. - Refer to home care manager for further testing to determine specific allergen. Recording using Dynadmic software for draft documentation of the visit was discussed with the patient/authorized patient care representative; all questions welcomed and answered. Patient/authorized patient care representative agreed to proceed History and Record Review External record(s) reviewed: prior outpatient record. Differential Diagnoses - Allergic reaction is more likely for the following reason(s): suggested by HANDP Disposition The patient was discharged. Procedures [facility] 01-12-2025 History of Present illness Narrative Images from the original note were not included. URGENT CARE [facility] Fernanda Hernandez is a 44 year old female. Patient presents with: Rash: On face x1 day, itching whole body, nausea, feeling off balance HPI Rash: - Rash on cheeks and ears began on Thursday. - Noted tingling and pruritus in the ears, with the left ear being more affected. - Consumed a small amount of lobster and used a new hair product on Thursday. - Pruritus on legs and lower back, but no visible rash. - No dyspnea or dysphagia. - No current use of allergy medications. Vestibular Symptoms: - Intermittent imbalance began last . - History of vertigo; recently evaluated by a vestibular specialist who diagnosed a vestibular disorder. - Denies constant imbalance. - Balance issues unchanged. - Denies feeling off balance currently. No headache, dizziness, lightheadedness, vision changes. Review of Systems Head: (+) headache Ears/Nose/Mouth/Throat: (+) ear pruritus, (+) ear paresthesia, (-) dysphagia Neck: (+) neck pain Respiratory: (-) dyspnea Gastrointestinal: (-) vomiting Skin: (+) facial rash, (+) auricular rash, (+) leg pruritus Neurological: (+) imbalance Objective BP 137/82 Pulse 70 Temp 36.8 C (98.3 F) Resp 18 Wt 110.6 kg (243 lb 13.3 oz) LMP 08/28/2020 (Approximate) SpO2 98% BMI 44.60 kg/m Physical Exam Vitals and nursing note reviewed. Constitutional: General: She is not in acute distress. Appearance: Normal appearance. She is not toxic-appearing. HENT: Right Ear: Tympanic membrane and ear canal normal. Left Ear: Tympanic membrane and ear canal normal. Nose: Nose normal. Mouth/Throat: Mouth: Mucous membranes are moist. Cardiovascular: Rate and Rhythm: Normal rate and regular rhythm. Pulmonary: Effort: Pulmonary effort is normal. Breath sounds: Normal breath sounds. Skin: General: Skin is warm and dry. Findings: Rash present. Comments: Erythematous rash on right cheek and bilateral ears. Left ear slightly swollen due to rash and inflammation. No rash anywhere else. No oral involvement. No tongue or floor of mouth swelling. Throat clear. Neurological: Mental Status: She is alert. { 1. Allergic reaction, initial encounter (T78.40XA) - Acute allergic reaction likely triggered by lobster ingestion or new hair product use on Thursday. - No signs of anaphylaxis. - Start Zyrtec 10 mg PO BID. - Start prednisone to reduce inflammation. - Advised avoidance of shellfish and new hair product until further evaluation. - Refer to home care manager for further testing to determine specific allergen. Recording using Dynadmic software for draft documentation of the visit was discussed with the patient/authorized patient care representative; all questions welcomed and answered. Patient/authorized patient care representative agreed to proceed History and Record Review External record(s) reviewed: prior outpatient record. Differential Diagnoses - Allergic reaction is more likely for the following reason(s): suggested by H&P Disposition The patient was discharged. Procedures documented in this encounter [facility] 01-10-2025 Telephone encounter Note I sent a prescription to reflect what patient is doing. Clarified with pharmacy with a note to them. [facility] 01-10-2025 Miscellaneous Notes I sent a prescription to reflect what patient is doing. Clarified with pharmacy with a note to them. Pharmacist with [facility] calls to clarify prescription for gabapentin. Asking if the 300 mg dose is to be taken daily or twice daily as it has both sets of directions. Looks like it should be daily but verifying with PCP d/t so many recent encounters. Pharmacist requests call back at [phone]. Sophia Greco RN documented in this encounter [facility] 01-10-2025 Telephone encounter Note Pharmacist with [facility] calls to clarify prescription for gabapentin. Asking if the 300 mg dose is to be taken daily or twice daily as it has both sets of directions. Looks like it should be daily but verifying with PCP d/t so many recent encounters. Pharmacist requests call back at [phone]. Sophia Greco RN [facility] 01-10-2025 Note Addended by: BETTINA FUENTES on: 01/10/2025 11:46 AM Modules accepted: Orders [facility] 01-10-2025 Miscellaneous Notes Addended by: BETTINA FUENTES on: 01/10/2025 11:46 AM Modules accepted: Orders Addended by: BETTINA FUENTES on: 01/10/2025 11:45 AM Modules accepted: Orders See other messages. Multiple messages sent Ghazal John MA January 10, 2025 10:48 AM A common side effect of duloxetine is dizziness. I did not wean it because you are only on 30 mg daily- the lowest dose. It may be the source of your dizziness. You also take Lamictal. We increased gabapentin at last visit. It could also be baclofen. Lets first try duloxetine to see if dizziness improves. Lets reevaluate after a week. If it has not improved, we can restart the duloxetine and trial off baclofen. I spoke with Dr. Mobley and he did not want you taking benzodiazepines for vertigo either. documented in this encounter [facility] 01-10-2025 Note Addended by: BETTINA FUENTES on: 01/10/2025 11:45 AM Modules accepted: Orders [facility] 01-10-2025 Telephone encounter Note See other messages. Multiple messages sent Ghazal John MA January 10, 2025 10:48 AM [facility] 01-10-2025 Telephone encounter Note Physical Therapy Order faxed to [facility] as requested. Aida Bhagat RN [facility] 01-10-2025 Miscellaneous Notes Physical Therapy Order faxed to [facility] as requested. Aida Bhagat RN Consult physical therapy at [facility] Patient calls and is upset that medication was not sent to pharmacy. Patient states that she had called [facility] and Physical therapy can get her in today if there is an order placed. Patient asking if order can be placed and faxed to [facility]? Please review and advise, Aida Bhagat RN documented in this encounter [facility] 01-10-2025 Telephone encounter Note Physical therapy consulted. We can try scopolamine patch- apply behind ear and change every 72 hours. [facility] 01-10-2025 Miscellaneous Notes Physical therapy consulted. We can try scopolamine patch- apply behind ear and change every 72 hours. documented in this encounter [facility] 01-10-2025 Telephone encounter Note Consult physical therapy at [facility] 01-10-2025 Telephone encounter Note A common side effect of duloxetine is dizziness. I did not wean it because you are only on 30 mg daily- the lowest dose. It may be the source of your dizziness. You also take Lamictal. We increased gabapentin at last visit. It could also be baclofen. Lets first try duloxetine to see if dizziness improves. Lets reevaluate after a week. If it has not improved, we can restart the duloxetine and trial off baclofen. I spoke with Dr. Mobley and he did not want you taking benzodiazepines for vertigo either. [facility] 01-10-2025 Telephone encounter Note Patient calls and is upset that medication was not sent to pharmacy. Patient states that she had called [facility] and Physical therapy can get her in today if there is an order placed. Patient asking if order can be placed and faxed to [facility]? Please review and advise, Aida Bhagat RN T [facility] 01-10-2025 Note Patient Outreach (FA MPWS) ---- FERNANDA HERNANDEZ ([id number]) 1980 F Date Time Provider Department 01/10/25 BETTINA FUENTES During your visit today, we recorded the following information about you: Allergies As of Date: 01/10/2025 Noted Allergy Reaction ACIPHEX (RABEPRAZOLE SODIUM) 07/09/2016 [...] by: Ghazal John MA - Fully Assessed Visit Diagnosis:Encounter for screening mammogram for breast cancer [Z12.31] Order(s):JEREMY SCREENING W YANELY [[id number]] Order #: [id number] FUTURE Prescriptions as of 02/10/2025 - methylPREDNISolone (MEDROL, JAVAN,) 4 mg Dose-Pack Take as instructed per package. - amoxicillin-clavulanate potassium (AUGMENTIN) 875-125 mg per tablet Take 1 tablet by mouth every 12 hours for 7 days. Patient should start on February 11, 2025. - DULoxetine DR (CYMBALTA) 30 mg capsule Take 1 capsule by mouth once daily. - gabapentin (NEURONTIN) 300 mg capsule Take 1 capsule by mouth three times a day for 90 days. - sucralfate (CARAFATE) 1 gram tablet Take 1 tablet by mouth before meals and at bedtime. - famotidine (PEPCID) 20 mg tablet Take 1 tablet by mouth daily at bedtime. - meclizine (ANTIVERT) 25 mg tab Take 1 tablet by mouth every 6 hours as needed (for dizziness). Not to exceed 4 tablets in 24 hours - scopolamine (TRANSDERM-SCOP) patch 1.5 mg/72 hr (delivers 1 mg over 3 days) Apply 1 patch as directed every 72 hours. - lamoTRIgine (LAMICTAL) 150 mg tablet Take 1 tablet by mouth daily at bedtime. take with 100 mg tablet for total daily dose 250 mg - lamoTRIgine (LAMICTAL) 100 mg tablet Take 1 tablet by mouth daily at bedtime. take with 150 mg tablet for total daily dose 250 mg - clonazePAM (KLONOPIN) 0.5 mg tablet can [...] C ORAL) Take by mouth once daily. Problem List As Of Date 01/10/2025 Noted Resolved Abdominal pain, epigastric [R10.13] 04/02/2005 [...] major depression resistant to treatme*06/09/2019 11/21/2021 Panic attack [F41.0] 06/09/2019 Anxiety disorder [F41.9] 09/15/2019 Encounter for long-term current use of medicati*09/23/2019 CL[place]ON (obstructive sleep apnea) [G47.33] 12/28/2019 Acute pain of left shoulder [M25.512] 04/23/2020 Hiatal hernia [K44.9] 11/09/2020 11/09/2020 Major depressive disorder, recurrent, moderate *11/21/2021 Occult blood positive stool [R19.5] 02/04/2024 Inflamed sebaceous cyst [L72.3] 07/25/2024 Encounter Status:Closed by [facility], [facility] on 02/10/25 [facility] 01-09-2025 Telephone encounter Note See other mychart message. Closing encounter. [facility] 01-09-2025 Miscellaneous Notes See other mychart message. Closing encounter. documented in this encounter [facility] 01-09-2025 Telephone encounter Note These medications are habit forming. I spoke with Dr. 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 [facility] 01-09-2025 Miscellaneous Notes These medications are habit forming. I spoke with Dr. 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 Please review ER report. Scan on 01/07/2025 2:20 PM by ProviderClarence PA-C: Consultation - Emergency Medicine documented in this encounter [facility] 01-09-2025 Telephone encounter Note Please review ER report. 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 Patient states that she has had symptoms for approximately 3 days now and states that she has been very fatigued with this. Patient notes that she has had this happen in the past before was diagnosed with vertigo and this does feel very similar. Patient states that she followed with physical therapy at a nearby clinic and she statesthat they did several test and notes that she was diagnosed with not normal vertigo she states that the meclizine was not helping her over the last few days therefore she came here to be further evaluated. Patient denies any blood thinning medications and denies any head trauma. Patient states that she is trying to get scheduled for MRI of neck however she is having some difficulties with insurance. States that she recently had dry needling of her neck to try tohelp with her symptoms as well. [facility] Medical History Osteoarthritis of left knee Back pain Difficulty balancing Knee pain Chest pain Migraines Fatigue Stomach ulcer Shoulder pain SOB (shortness of breath) Arthritis Home Medications ?Medication ?Instructions ?Recorded ?Last Taken ?Type norgestimate 0.25 mg-ethinyl 1 ea PO DAILY bcp 9 01/06/25 History estradiol 0.035 mg tablet ascorbic acid (vitamin C) 500 mg 500 mg PO DAILY 01/0701/07/25 History tablet (C-500) biotin 2,500 mcg capsule 2,500 mcg PO DAILY 01/07/25 01/07/25 History calcium-magnesium 300 mg-300 mg 1 tab PO DAILY 5 01/06/25 History tablet cholecalciferol (vitamin D3) 50 50 mcg PO DAILY 01/06/25 History mcg (2,000 unit) tablet (D3 DOTS) duloxetine 30 mg capsule,delayed 30 mg PO DAILY 01/07/25 History release gabapentin 300 mg capsule 300 mg PO DAILY 01/07/25 History lamotrigine 150 mg tablet 150 mg PO DAILY 01/07/25 History meclizine 25 mg tablet 25 mg PO Q6H PRN dizziness 0 01/07/25 01/07/25 History multivitamin (Daily Multi-Vitamin 1 tab PO DAILY 01/0701/07/25 History tablet) Allergy/AdvReac Type Severity Reaction Status Date / Time lansoprazole (From Prevacid) Allergy Unknown Verified 01/07/25 11:02 rabeprazole (From Aciphex) Allergy Hives Verified 01/07/25 11:02 Sulfa (Sulfonamide Allergy Unknown Verified 01/07/25 11:02 Antibiotics) omeprazole (From Prilosec) AdvReac Other Verified 01/07/25 11:02 omeprazole magnesium (From AdvReac Other Verified 01/07/25 11:02 Prilosec) Surgical History Gastric bypass status for obesity History of cholecystectomy History of tonsillectomy History of bilateral breast reduction surgery Social History Smoking Status: Former smoker ROS ROS ED ROS Narrative Constitutional: Complains of dizziness and generalized fatigue denies any headaches, lightness, fevers, chills Eyes: Denies change in vision double vision blurry vision Cardiovascular: Denies chest pain Respiratory: Denies coughing wheezing shortness of breath Abdomen: Denies abdominal pain nausea vomit diarrhea : Denies any urinary symptoms Neurological: Denies any numbness, weakness, tingling Musculoskeletal: Denies back pain Skin: Denies any rashes or lesions EXAM Physical Exam Narrative Exam Narrative: General: Patient was lying in bed rest comfortably did not appear to be in acutedistress Head: Atraumatic, normocephalic Eyes: PERRL bilaterally, EOMI bilaterally, no conjunctival injection noted Neck: Soft, supple, trachea midline Cardiovascular: Regular rate and rhythm Respiratory: Clear to auscultation bilaterally Extremities: +5/5 strength noted in the bilateral upper and lower extremities, radial pulses +2/1 about extremities, no pedal edema exam Neurological: Patient following commands knew that she was at [facility] the year is 2024. Patient completed finger-nose testing bilaterally without difficulty. Sensation grossly intact. NIH of 0 GCS 15. Patient states that when she turns her head to the left her symptoms do worsen Skin: Warm, dry, intact no rashes lesions noted Const Vital Signs: 01/07/25 11:03 01/07/25 13:02 Temperature 97.1 F L Temperature Source Temporal Pulse Rate 65 58 L Respiratory Rate 14 16 Blood Pressure 158/99 H 137/76 H Blood Pressure Mean 118 96 Pulse Ox 97 100 Oxygen Delivery Method Room Air Room Air MDM MDM MDM Narrative Medical decision making narrative: Patient is a 44-year-old female who presented to the emergency department chief complaint of vertigo. Patient did note that this does feel like her typical vertigo. On the differential diagnosis includes but not limited to aneurysm, previous stroke, benign positional paroxysmal vertigo, migraine headache, complexmigraine. Once the workup is obtained reviewed she will be reevaluated. Patient denied fluids Reglan and Ativan. Patient states that she has not had any imaging of her head recently. Patient's CBC reviewed showed a white blood count of 11,000, hemoglobin 13, plate count 318. Patient sodium is 141, potassium 3.2 she will be given 40 millequivalents of oral supplementation here in the emergency department, creatininenormal at 0.72. Patient's TSH was normal at 1.26. Patient CT head brain without contrast showed no acute intracranial normalities. Patient CTA head andneck showed no acute findings no significant stenosis no aneurysm or vascular malformation noted. Patient's EKG reviewed showed sinus bradycardia with a rateof 56 bpm. Patient ambulated to the bathroom a few times while in the emergency department without any difficulty. On reevaluation of the patient she is feeling much improved and would like to gohome at this point in time. Once again she stated that this felt like her vertigo that she has had in the past. She was advised to follow-up with her doctors in the outpatient setting and return with worsening symptoms or any other concerns. She is agreeable to this plan all question concerns answered atbedside she was discharged home in stable condition. Patient states that she has meclizine and Zofran at home. Lab Data Labs: Laboratory Results - last 24 hr 01/07/25 11:55 WBC 11.2 H RBC 4.22 Hgb 13.0 Hct 39.0 MCV 92.4 MCH 30.8 MCHC 33.3 RDW Std Deviation 44.8 H RDW Coeff of Renan 13.2 Plt Count 318 MPV 10.6 Immature Gran % (Auto) 0.500 Neut % (Auto) 58.2 Lymph % (Auto) 31.8 Cook % (Auto) 7.3 Eos % (Auto) 1.7 Baso % (Auto) 0.5 Absolute Neuts (auto) 6.5 Absolute Lymphs (auto) 3.55 Nucleated RBC % 0 Sodium 141 Potassium 3.2 L Chloride 104 Carbon Dioxide 25.6 Anion Gap 12 BUN 12 Creatinine 0.72 Estim Creat Clear Calc 117.82 Est GFR (MDRD) Non-Af 105 BUN/Creatinine Ratio 17.1 Glucose 80 Calcium 8.6 TSH 1.260 Radiography Diagnostic Testing: Clinical Impression(s) from Imaging Studies Brain CT 01/07/25 12:13 IMPRESSION: No acute intracranial abnormality. Reading Location: [facility] Head/Neck CTA 01/07/25 12:16 IMPRESSION: Unremarkable CTA of the head and neck without significant stenosis. No aneurysm or vascular malformation. Reading Location: [facility] Discharge Plan Triage Chief Complaint: Dizziness ED Provider: Deangelo Thao Dx/Rx/DC Orders Clinical Impression: Anxiety disorder, Depression, Vertigo Prescriptions: No Action norgestimate-ethinyl estradiol 1 EACH tablet 1 ea PO DAILY duloxetine 30 mg capsule,delayed release(DR/EC) 30 mg PO DAILY gabapentin 300 mg capsule 300 mg PO DAILY lamotrigine 150 mg tablet 150 mg PO DAILY meclizine 25 mg tablet 25 mg PO Q6H PRN (Reason: dizziness) multivitamin [Daily Multi-Vitamin] Tablet 1 tab PO DAILY ascorbic acid (vitamin C) [C-500] 500 mg tablet 500 mg PO DAILY biotin 2,500 mcg capsule 2,500 mcg PO DAILY calcium-magnesium 300-300 mg tablet 1 tab PO DAILY Rx Instructions: administer with a meal cholecalciferol (vitamin D3) [D3 DOTS] 50 mcg (2,000 unit) tablet 50 mcg PO DAILY Primary Care Provider: Bettina Fuentes Referrals: Bettina Fuentes, FLORES [Primary Care Provider] - Activity Restrictions/Additional Instructions: Ensure adequate hydration. Return with worsening symptoms or any concerns. Your blood work did not show any acute findings, your CTs of your head did not show any acute findings either. Use your meclizine and Zofran as prescribed. Print Language: Kenyan Disposition Disposition: Home, Self Care What to do if you have Problems For any increased pain, shortness of breath, bleeding, nausea or vomiting, chestpain, or any unexpected problems, contact your Primary Care Provider. Call [facility] ([phone]) or report to the closest Emergency Room. Call 911 if necessary. 01/07/25 1413 <Electronically signed by Deangelo Thao DO> Cosigner Signature (if applicable): CC: FLORES Fuentes ~ Signed [facility] Work Phone: [phone] Radiology Diagnostic study note [facility] Imaging Services [address] [place] [address] STROKE CTA Head AND Neck W/Con MR#: [id number] Acct: [id number] Name: FERNANDA HERNANDEZ Rep #: [id number] : 1980 F 44 From: Jez Lawler MD PCP: FLORES Tee Status: REG ER Study:STROKE CTA Head AND Neck W/Con Date of Exam: 01/07/25 Exam# [id number] Ordering Dr: Aliyah Thao DO PROCEDURE: STROKE CTA HEAD AND NECK W/CON N/A REASON FOR EXAM: DIZZY TECHNIQUE: STROKE CTA HEAD AND NECK W/CON Multiplanar Sagittal and Coronal images were obtained. CONTRAST: Isovue 370 VOLUME: 100 mL One or more dose reduction techniques were used (e.g., Automated exposure control, adjustment of the mA and/or kV according to patient size, use of iterative reconstruction technique). RADIATION DOSE SUMMARY: CTDlvol: 26.19 mGy DLP: 906.12 mGycm COMPARISON: None. FINDINGS: Aortic Arch: Normal size and branching pattern. No significant atherosclerotic plaque. Brachiocephalic and Subclavians: Unremarkable RIGHT Carotid: Right CCA: Unremarkable. Right ICA: Unremarkable. Right ECA: Unremarkable. LEFT Carotid: Left CCA: Unremarkable. Left ICA: Unremarkable. Left ECA: Unremarkable. Vertebrals: Codominant. Arise from the subclavians. Both vertebrals form the basilar. RIGHT Vertebral: Unremarkable. LEFT Vertebral: Unremarkable. Anatomy: [place] anatomy is normal. Aneurysm or avm: No intracranial aneurysms or large vascular malformations are identified. Anterior cerebral arteries: Unremarkable: Middle cerebral arteries: Unremarkable. Basilar artery: Unremarkable. Posterior cerebral arteries: Unremarkable. Other major branches of the posterior circulation: Unremarkable. Major venous structures: Unremarkable. Other findings: Neck: No lymphadenopathy. Lungs: Lung apices are clear. Bones: Bones are unremarkable. CT/STROKE CTA Head AND Neck W/Con IMPRESSION: Unremarkable CTA of the head and neck without significant stenosis. No aneurysm or vascular malformation. Reading [facility]: [facility] [facility] [place] CC: SMOG TECHNICIAN Bettina Fuentes; Dr. Deangelo Thao DO ~ Safety Lamp Keeper: Signed [facility]08-16-2025 Radiology Diagnostic study note [facility] Imaging Services [address], [place] [address] Brain/Head without Contrast MR#: [id number] Acct: [id number] Name: FERNANDA HERNANDEZ Rep #: [id number] : 1980 F 44 From: Alexandru Palmer MD PCP: Bettina Fuentes, SMOG TECHNICIAN Status: REG ER Study:Brain/Head without Contrast Date of Exa m: 01/07/25 Exam# [id number] Ordering Dr: Aliyah Thao DO PROCEDURE: BRAIN/HEAD WITHOUT CONTRAST N/A REASON FOR EXAM: DIZZY TECHNIQUE: BRAIN/HEAD WITHOUT CONTRAST Coronal and Sagittal reconstruction series were provided. One or more dose reduction techniques were used (e.g., Automated exposure control, adjustment of the mA and/or kV according to patient size, use of iterative reconstruction technique. RADIATION DOSE SUMMARY: CTDlvol: 47, 13, 26 mGy DLP: 1792 mGycm COMPARISON: 07/18/2024 FINDINGS: BRAIN: No acute intraparenchymal hemorrhage. No mass lesion. No CT evidence for acute territorial infarct.No midline shift or extra-axial collection. VENTRICLES: No hydrocephalus. ORBITS: The orbits are unremarkable. SINUSES AND MASTOIDS: The paranasal sinuses and mastoid air cells are clear. SOFT TISSUES: No acute abnormality seen. BONES: No acute osseous abnormality seen. OTHER: The sella has a partially empty appearance, which is unchanged. CT/Brain/Head without Contrast IMPRESSION: No acute intracranial abnormality. Reading Location: [id number] CC: SMOG TECHNICIAN Bettina Fuentes; Dr. Deangelo Thao, DO ~ Safety Lamp Keeper: Signed [facility]08-15-2025 Telephone encounter Note* Telephone Encounter - Ellie Kwong LPN - 01/06/2025 11:07 AM EDT Prescription Refill Information The patient [...] lamoTRIgine (LAMICTAL) 150 mg tablet 90 tablet 0 Sig: Take 1 tablet by mouth daily at bedtime. take with 100 mg tablet for total daily dose 250 mg lamoTRIgine (LAMICTAL) 100 mg tablet 90 tablet 0 Sig: Take 1 tablet by mouth daily at bedtime. take with 150 mg tablet for total daily dose 250 mg Ellie Kwong LPN January 06, 2025 11:08 AM [facility]08-15-2025 Miscellaneous Notes* Telephone Encounter - Ellie Kwong LPN - 01/06/2025 11:07 AM EDT Prescription Refill Information The patient [...] lamoTRIgine (LAMICTAL) 150 mg tablet 90 tablet 0 Sig: Take 1 tablet by mouth daily at bedtime. take with 100 mg tablet for total daily dose 250 mg lamoTRIgine (LAMICTAL) 100 mg tablet 90 tablet 0 Sig: Take 1 tablet by mouth daily at bedtime. take with 150 mg tablet for total daily dose 250 mg Ellie Kwong LPN January 06, 2025 11:08 AM [facility] Telephone encounter Note * Telephone Encounter - Ellie Kwong LPN - 12/12/2024 10:31 AM EDT Prescription Refill Information The patient [...] Kwong LPN December 12, 2024 10:32 AM [facility]07-21-2025 Miscellaneous Notes* Telephone Encounter - Ellie Kwong LPN - 12/12/2024 10:31 AM EDT Prescription Refill Information The patient [...] 12, 2024 10:32 AM documented in this encounterOhio [facility]06-18-2025 Telephone encounter Note * Telephone Encounter - Sophia Greco RN - 11/09/2024 10:46 AM EDT Patient returns call and provider message reviewed with verbalized understanding. Sophia Greco RN [facility]06-18-2025 Miscellaneous Notes* Telephone Encounter - Sophia Greco RN - 11/09/2024 10:46 AM EDT Patient returns call and provider message reviewed with verbalized understanding. Sophia Greco RN * Telephone Encounter - Yojana Palmer RN - 11/09/2024 10:26 AM EDT Attempted to call patient back with provider's message, no answer. VM left to call provider's office and ask for a nurse, for response below. Yojana Palmer RN * Telephone Encounter - Parmjit Mobley MD - 11/09/2024 9:13 AM EDT Agree. Can't call in something stronger across state lines legally. Just had a steroid injection so not sure they can do much more. Agree, can call ortho for ideas or see local urgent care or er if it is that severe. Can try something like voltaren gel otc if joint is not hot or red. * Telephone Encounter - Yojana Palmer RN - 11/09/2024 8:35 AM EDT Patient calling in. Reports she is currently in [place]. Reports she saw [facility] last week for a steroid injection, which has not helped her left knee pain. States she has right leg sciatica flare now as well and is going crazy due to the discomfort. Unable to take NSAIDS. Taking Tylenol, using ice and topical analgesics. Tearful. Asking if Milady Fuentes CNP would send order to a [facility] in [place] for prednisone or other medication. Pt sees Dr. Hummel in Pain Mgmt for cervical issues. Informed pt that provider is out of the office. Advised patient to contact [facility] or seek local UC or ED for severe pain. Patient asking if Dr. Mobley could offer her any further advise or assistance. Patient Yojana Palmer RN documented in this encounterOhio [facility] Hospital06-18-2025 Telephone encounter Note * Telephone Encounter - Yojana Palmer RN - 11/09/2024 10:26 AM EDT Attempted to call patient back with provider's message, no answer. VM left to call provider's office and ask for a nurse, for response below. Yojana Palmer RN [facility]06-18-[facility] Telephone encounter Note* Telephone Encounter - Parmjit Mobley MD - 11/09/2024 9:13 AM EDT Agree. Can't call in something stronger across state lines legally. Just had a steroid injection so not sure they can do much more. Agree, can call ortho for ideas or see local urgent care or er if it is that severe. Can try something like voltaren gel otc if joint is not hot or red. [facility] Work Phone: 1(603) 572-648706-18-2025 Telephone encounter Note* Telephone Encounter - Yojana Palmer RN - 11/09/2024 8:35 AM EDT Patient calling in. Reports she is currently in [place]. Reports she saw [facility] last week for a steroid injection, which has not helped her left knee pain. States she has right leg sciatica flare now as well and is going crazy due to the discomfort. Unable to take NSAIDS. Taking Tylenol, using ice and topical analgesics. Tearful. Asking if Milady Fuentes CNP would [facility] [place] for prednisone or other medication. Pt sees Dr. Hummel in Pain Mgmt for cervical issues. Informed pt that provider is out of the office. Advised patient to contact [facility] or seek local UC or ED for severe pain. Patient asking if Dr. Mobley could offer her any further advise or assistance. Patient Yojana Palmer RN [facility]05-23-2025 NoteHNO ID: [id number] Author: BETTINA FUENTES APRN.SCIENCE PROFESSOR Service: ? Author Type: Nurse Practitioner Type: [...] Recent increase in gabapentin and baclofen by automobile painter on Thursday; also prescribed a steroid pack. [...] Headache Sister Diabetes Mate (more content not included)...[facility]05-19-2025 NoteHNO ID: [id number] Author: ANAHI DOWNS APRN.SCIENCE PROFESSOR Service: ? Author Type: Nurse Practitioner Type: [...] visit. Either the patient or their legal patient care representative has been informed of the risks [...] RELIEF) 50 mcg/actuation nasal spray Use 1 Seville in each nostril once daily. 11.1 mL [...] daily. No current facility-admini (more content not included)...[facility]05-14-2025 Discharge summary Author Roc Grover [facility] Note Date/Time October 05, 2024 9:33a m [facility] Physical Therapy [facility] [address] [place] [address] / REHABILITATION SERVICES DISCHARGE SUMMARY MR#: [id number] Acct: [id number] Name: FERNANDA HERNANDEZ Rep #: [id number] : 1980 44 From: Roc Grover DPT, OCS, CSCS Referring Dr.: FLORES Fuentes Status: REG RCR Insurance: [facility] SELF PAY INSURANCE Discharge Summary D/C [...] please feel free to call me at [phone]. Thank you for the referral of thispatient. Sincerely, Roc Grover DPT, OCS, CSCS Balance/Gait/Functional tests Balance/Special Test Scores Functional Gait Assessment Score: 22 % Disability: 26.6700 CATSIB Score (Max score 120 seconds): 90 Dizziness Score: 4 Improvement % Improvement: 50 <Electronically signed by Roc Grover DPT, CHRISTIANO, CSCS> 10/05/24 0933 CC: FLORES Fuentes ~ EBG Signed [facility] Work Phone: 1(899) 629-175105-14-2025 Discharge summary [facility] Physical Therapy [facility] [address] [place] [address] [address] [place] [address] / REHABILITATION SERVICES DISCHARGE SUMMARY MR#: [id number] Acct: [id number] Name: FERNANDA HERNANDEZ Rep #: [id number] : 1980 44 From: Roc Grover DPT, CHRISTIANO, CSCS Referring DrDiamond: FLORES Fuentes Status: REG RCR Insurance: [facility] SELF PAY INSURANCE Discharge Summary D/C summary: It has been my pleasure to treat FERNANDA HERNANDEZ referred by Bettina Suppan,SMOG TECHNICIAN, with the diagnosis of BPPV and Dr. [...] please feel free to call me at [phone]. Thank you for the referral of thispatient. Sincerely, Roc Grover, DPT, OCS, CSCS Balance/Gait/Functional tests Balance/Special Test Scores Functional Gait Assessment Score: 22 % Disability: 26.6700 CATSIB Score (Max score 120 seconds): 90 Dizziness Score: 4 Improvement % Improvement: 50 10/05/2433 CC: FLORES Bettina Fuentes ~ EBG Signed [facility]04-22-2025 Evaluation note* Diagnosis Onset Date Resolution Status Admit Date Osteoarthritis of left knee acute September 13, 2024 9:00am Osteoarthritis of left knee acute October 31, 2024 12:54pm [facility] Work Phone: 1(926) 939-195204-08-2025 Telephone encounter Note* Telephone Encounter - Ellie Kwong LPN - 08/30/2024 1:57 PM EDT Spoke with the patient confirming today's virtual visit at 2:00 PM. Ellie Kwong LPN [facility]04-08-2025 Miscellaneous Notes* Telephone Encounter - Ellie Kwong LPN - 08/30/2024 1:57 PM EDT Spoke with the patient confirming today's virtual visit at 2:00 PM. Ellie Kwong LPN documented in this encounterOhio [facility] Hospital04-08-2025 Evaluation note* Diagnosis Onset Date Resolution Status Admit Date Osteoarthritis of left knee acute August 30, 2024 9:24am Osteoarthritis of left knee acute September 06, 2024 9:09am Osteoarthritis of left knee acute September 13, 2024 9:00am [facility] Work Phone: 1(275) 223-970304-08-2025 Evaluation note* Diagnosis Onset Date Resolution Status Admit Date Osteoarthritis of left knee acute August 30, 2024 9:24am Osteoarthritis of left knee acute September 06, 2024 9:09am Osteoarthritis of left knee acute September 13, 2024 9:00am Osteoarthritis of left knee acute October 31, 2024 12:54pm [facility] Work Phone: 1(826) 713-748604-07-2025 NoteHNO ID: [id number] Author: ANAHI DOWNS APRN.[facility] Service: ? Author Type: Nurse Practitioner Type: [...] visit. Either the patient or their legal patient care representative has been informed of the risks [...] RELIEF) 50 mcg/actuation nasal spray Use 1 Seville in each nostril once daily. 11.1 mL [...] cholecalciferol, vitamin D3, (V (more content not included)...[facility]04-07-2025 History of Present illness Narrative* Anahi Downs APRN.SCIENCE PROFESSOR - 08/29/2024 5:24 PM EDT FOLLOW UP [...] visit. Either the patient or their legal patient care representative has been informed of the risks [...] RELIEF) 50 mcg/actuation nasal spray Use 1 Seville in each nostril once daily. 11.1 mL [...] Anxiety Disorder Anxiety Disorder NOS panic symptoms residential medication management GAF: 60 -60-51 Moderate symptoms [...] which included preparing to see the patient, [id number] patient care, completing clinical documentation, obtaining and/or reviewing separately obtained history, performing a medically appropriate examination, counseling and educating the pat ient/family/caregiver, ordering medications, tests, or procedures, and care coordination (not separately reported). ADD ON PSYCHOTHERAPY CODE : No SIGNATURE: Anahi Downs APRN.CNP PATIENT NAME: Fernanda Hernandez DATE: August 30, 2024 TIME: :2:00 PM documented in this encounterOhio [facility] Hospital03-25-2025 Telephone encounter Note * Telephone Encounter [...] Kwong LPN August 16, 2024 10:03 AM [facility]03-25-2025 Miscellaneous Notes* Telephone Encounter - Ellie [...] 16, 2024 10:03 AM documented in this encounterOhio [facility] Hospital03-24-2025 Telephone encounter Note * Telephone Encounter [...] Kwong LPN August 15, 2024 10:14 AM [facility]03-24-2025 Miscellaneous Notes* Telephone Encounter - Ellie [...] 15, 2024 10:14 AM documented in this encounterOhio [facility] Hospital03-24-2025 Telephone encounter Note * Telephone Encounter [...] Kwong LPN August 15, 2024 9:16 AM [facility]03-24-2025 Miscellaneous Notes* Telephone Encounter - Ellie [...] 15, 2024 9:16 AM documented in this encounterOhio [facility] Hospital03-19-2025 History of Present illness Narrative* Ashlee Lee APRN.SCIENCE PROFESSOR - 08/10/2024 9:00 AM EDT FOLLOW UP VISIT - SKIN LESION NAME: Fernanda Hernandez [facility] NO.: [id number] DATE OF SERVICE: 08/04/2024 : 1980 Fernanda [...] cyst (primary encounter diagnosis) Ashlee Lee APRN.CNP documented in this encounterOhio State East Hospital03-19-2025 NoteHNO ID: [id number] Author: ASHLEE LEE APRN.CNP Service: ? Author Type: Nurse Practitioner Type: Progress Notes Filed: 08/10/2024 09:33 Note Text: FOLLOW UP VISIT - SKIN LESION NAME: Fernanda Hernandez [facility] NO.: [id number] DATE OF SERVICE: 08/04/2024 : 1980 Fernanda [...] sebaceous cyst (primary encounter diagnosis) Ashlee Lee APRN.CNPBarnesville Hospital03-18-2025 Telephone encounter Note* Telephone Encounter - Sophia Greco RN - 08/09/2024 8:44 AM EDT Bry PT with [facility] calls to report that patient is scheduled for therapy session tonight for vestibular therapy and asking for PT order to be faxed to them. Faxed PT order from yesterday to [phone] per request. Sophia Greco RN [facility]03-18-2025 Miscellaneous Notes* Telephone Encounter - Sophia Greco RN - 08/09/2024 8:44 AM EDT Bry PT with [facility] calls to report that patient is scheduled for therapy session tonight for vestibular therapy and asking for PT order to be faxed to them. Faxed PT order from yesterday to [phone] per request. Sophia Greco RN documented in this encounterOhio State East Hospital03-17-2025 Instructions* Patient Instructions* Bettina Fuentes APRN.CNP - 08/08/2024 10:39 AM EDT 1) Consult physical therapy for vestibular therapy 2) Ondansetron 4 mg up to every 8 hours 3) Meclizine 25 mg 4 x day 4) Keep follow up in October documented in this encounterOhio State East Hospital03-17-2025 NoteHNO ID: [id number] Author: BETTINA FUENTES APRN.CNP Service: ? Author [...] RELIEF) 50 mcg/actuation nasal spray Use 1 Seville in each nostril once daily. Promethazine-DM (PHENERGAN-DM) [...] Normal breath sounds. Musculoskel (more content not included)...[facility]03-17-2025 History of Present illness Narrative* Bettina Fuentes APRN.RACHID - 08/08/2024 10:24 AM EDT This is [...] RELIEF) 50 mcg/actuation nasal spray Use 1 Seville in each nostril once daily. Promethazine-DM (PHENERGAN-DM) [...] time. Comments: Cranial nerves III-XII intact, no pnkzmm-zf-zqgh ataxia Some nystagmus with looking forward, none [...] improvement. Bettina Fuentes APRN.RACHID documented in this encounterOhio State East Hospital03-13-2025 NoteHNO ID: [id number] Author: ASHLEE LEE APRN.RACHID Service: ? Author Type: Nurse Practitioner Type: Progress Notes Filed: 08/04/2024 14:50 Note Text: FOLLOW UP VISIT - SKIN LESION NAME: Fernanda Hernandez [facility] NO.: [id number] DATE OF SERVICE: 08/04/2024 : 1980 REFERRING [...] sebaceous cyst (primary encounter diagnosis) Ashlee Lee APRN.CNPBarnesville Hospital03-13-2025 History of Present illness Narrative* Ashlee Lee APRN.CNP - 08/04/2024 2:24 PM EDT FOLLOW UP VISIT - SKIN LESION NAME: Fernanda Hernandez [facility] NO.: [id number] DATE OF SERVICE: 08/04/2024 : 1980 REFERRING PHYSICIAN: Bettina Fuentes APRN.RACHID Fernanda is a patient I am following [...] sebaceous cyst (primary encounter diagnosis) Ashlee Lee APRN.SCIENCE PROFESSOR documented in this encounterOhio State East Hospital03-13-2025 Telephone encounter Note * Telephone Encounter - Britany Hudson RN - 08/04/2024 11:19 AM EDT Appointment made for 2 pm in [place] with Destiney Lee APRN, CNP. Encounter closed. [facility]03-13-2025 Miscellaneous Notes* Telephone Encounter - Britany Hudson RN - 08/04/2024 11:19 AM EDT Appointment made for 2 pm in [place] with Destiney Lee APRN, CNP. Encounter closed. documented in this encounterOhio State East Hospital03-13-2025 NoteHNO ID: [id number] Author: NADER CALVILLO MD Service: ? Author Type: Physician [...] applied and the patient tolerated the procedure well.[facility]03-13-2025 History of Present illness Narrative* Nader Calvillo MD - 08/04/2024 10:33 AM EDT [...] the patient or surrogate. documented in this encounterOhio State East Hospital03-11-2025 Instructions* Patient Instructions* Danitza Jung RN - 08/02/2024 2:02 PM EDT The following instructions are important for you related to your office visit today with the [facility] General Surgeons. Instructions After I & D [...] you should contact our office immediately @ [phone] and ask to be transferred to the General Surgery department. documented in this encounterOhio State East Hospital03-11-2025 NoteHNO ID: [id number] Author: DANITZA JUNG RN Service: ? Author [...] has been communicated to the patient or surrogate.[facility]03-10-2025 Instructions* Patient Instructions* Bettina Fuentes APRN.CNP - 08/01/2024 3:19 PM EDT - CONSULT TO GENERAL SURGERY - Continue doxycyline documented in this encounterOhio State East Hospital03-10-2025 NoteHNO ID: [id number] Author: BETTINA FUENTES APRN.CNP Service: ? Author [...] RELIEF) 50 mcg/actuation nasal spray Use 1 Seville in each nostril once daily. Promethazine-DM (PHENERGAN-DM) [...] as needed for worsening/no improvement. Bettina Fuentes APRN.RACHIDBarnesville Hospital03-10-2025 History of Present illness Narrative* Bettina Fuentes APRN.SCIENCE PROFESSOR - 08/01/2024 3:12 PM EDT This is [...] RELIEF) 50 mcg/actuation nasal spray Use 1 Seville in each nostril once daily. Promethazine-DM (PHENERGAN-DM) [...] improvement. Bettina Fuentes APRN.CNP documented in this encounterOhio State East Hospital03-10-2025 Telephone encounter Note * Telephone Encounter [...] and let us know. Mary Austin LPN [facility]03-10-2025 Miscellaneous Notes* Telephone Encounter - Mary [...] her appointment or go to a local stat care if she is not able to [...] chart. Mary Austin LPN documented in this encounterOhio State East Hospital03-10-2025 Telephone encounter Note * Telephone Encounter - Lillie Bautista PA-C - 08/01/2024 8:32 AM EDT If the cyst isn't improved with antibiotics and warm compresses, then she may require I&D. She can re-schedule her appointment or go to a local stat care if she is not able to drive here. Recommend taking food with antibiotic which should help with upset stomach. Lillie Bautista PA-C August 01, 2024 8:35 AM [facility]03-10-2025 Telephone encounter Note* Telephone Encounter - Ghazal John MA - 08/01/2024 8:22 AM EDT Form was faxed to number on form. Ghazal John MA August 01, 2024 8:23 AM [facility]03-10-2025 Miscellaneous Notes* Telephone Encounter - Ghazal John MA - 08/01/2024 8:22 AM EDT Form was faxed to number on form. Ghazal John MA August 01, 2024 8:23 AM * Telephone Encounter - Ghazal John MA - 07/29/2024 4:58 PM EST Fax received yesterday. Type of form: FMLA Form received via fax When form is completed, Fax form to [phone] Form has been forwarded to Nurse Practitioner: Anitha John MA documented in this encounterOhio State East Hospital03-10-2025 Telephone encounter Note * Telephone Encounter [...] not. Pharmacy in chart. Mary Austin LPN [facility]03-07-2025 Telephone encounter Note* Telephone Encounter - Ghazal John MA - 07/29/2024 4:58 PM EST Fax received yesterday. Type of form: FMLA Form received via fax When form is completed, Fax form to [phone] Form has been forwarded to Nurse Practitioner: Anitha John MA [facility]03-03-2025 Telephone encounter Note* Telephone Encounter - Bettina Fuentes APRN.CNP - 07/25/2024 4:57 PM EST The following approved medication requests have been transmitted electronically. Requested Prescriptions Pending Prescriptions Disp Refills meclizine (ANTIVERT) 25 mg tab 30 tablet 1 Sig: Take 1 tablet by mouth three times a day as needed (vertigo). Bettina Fuentes APRN.CNP [facility]03-03-2025 Miscellaneous Notes* Telephone Encounter - Bettina Fuentes APRN.CNP - 07/25/2024 4:57 PM EST The following approved medication requests have been transmitted electronically. Requested Prescriptions Pending Prescriptions Disp Refills meclizine (ANTIVERT) 25 mg tab 30 tablet 1 Sig: Take 1 tablet by mouth three times a day as needed (vertigo). Bettina Fuentes APRN.CNP * Telephone Encounter - Pearl Curtis LPN - 07/25/2024 1:02 PM EST [...] having episodes of vertigo and headache lightheaded Pearl Curtis LPN July 25, 2024 1:03 PM documented in this encounterOhio State East Hospital03-03-2025 Telephone encounter Note * Telephone Encounter - Pearl Curtis LPN - 07/25/2024 1:02 PM EST [...] having episodes of vertigo and headache lightheaded Pearl Curtis LPN July 25, 2024 1:03 PM [facility]03-03-2025 History and physical note* Lillie Bautista PA-C - 07/25/2024 11:24 AM EST [facility] Fernanda Hernandez 1980 July 25, [...] RELIEF) 50 mcg/actuation nasal spray Use 1 Seville in each nostril once daily. 11.1 mL [...] any worsening symptoms. Signed: Lillie Bautista PA-C [facility]03-03-2025 History and physical note* Lillie Bautista PA-C - 07/25/2024 11:24 AM EST [facility] Fernanda Hernandez 1980 July 25, [...] RELIEF) 50 mcg/actuation nasal spray Use 1 Seville in each nostril once daily. 11.1 mL [...] Signed: Lillie Bautista PA-C documented in this encounterOhio State East Hospital02-27-2025 Telephone encounter Note * Telephone Encounter - Bettina Fuentes APRN.[facility] - 07/21/2024 3:35 PM EST Oh, no! You poor thing. I would think if no fever, Next Thursday with a mask should be ok. Depends on how you feel. [facility]02-27-2025 Miscellaneous Notes* Telephone Encounter - Bettina Fuentes APRN.CNP - 07/21/2024 3:35 PM EST Oh, no! You poor thing. I would think if no fever, Next Thursday with a mask should be ok. Depends on how you feel. * Telephone Encounter - Phyllis Beth MA - 07/21/2024 3:23 PM EST See pt message. Pt seen in office today for visit. Phyllis Beth MA documented in this encounterOhio State East Hospital02-27-2025 Telephone encounter Note * Telephone Encounter - Phyllis Beth MA - 07/21/2024 3:23 PM EST See pt message. Pt seen in office today for visit. Phyllis Beth MA [facility]02-27-2025 Instructions* Patient Instructions* Bettina Fuentes APRN.CNP - 07/21/2024 12:03 PM EST - Follow up in October as scheduled - FLUTICASONE PROPIONATE 50 MCG/ACTUATION NASAL SPRAY,SUSPENSION 2 sprays each nare daily until Sx resolve - PROMETHAZINE-DM 6.25 MG-15 MG/5 ML ORAL SYRUP every 4 hours as needed for cough - TIZANIDINE 4 MG TABLET 2 x day for body aches documented in this encounterOhio State East Hospital02-27-2025 NoteHNO ID: [id number] Author: BETTINA FUENTES APRN.[facility] Service: ? Author Type: Nurse Practitioner Type: [...] cerumen. Ears: Comments: Bi (more content not included)...[facility]02-27-2025 History of Present illness Narrative* Bettina Fuentes APRN.SCIENCE PROFESSOR - 07/21/2024 11:42 AM EST This is [...] There is no impacted cerumen. Ears: Comments: Colin. TM bulging with clear effusions Nose: Congestion [...] improvement. Bettina Fuentes APRN.RACHID documented in this encounterOhio [facility] Hospital02-22-2025 NoteHNO ID: [id number] Author: BERNADETTE WINTERS PA Service: ? Author Type: Physician Employee Counselor Type: Progress Notes Filed: 07/16/2024 08:43 Note Text: This note was created using Netsketriter. Subjective Fernanda Hernandez is a 44 year [...] erythema present. Eyes: Conjunctiva/scler (more content not included)...[facility] 07-16-2024 History of Present illness Narrative* Bernadette Winters PA - 07/16/2024 8:25 AM EST This note was created using SteelBrickter. Subjective Fernanda Hernandez is a 44 year [...] ER evaluation. OG Cervantes documented in this encounterOhio [facility] Hospital01-13-2025 Telephone encounter Note * Telephone Encounter [...] Ortega MA June 06, 2024 8:10 AM [facility]01-13-[facility] Miscellaneous Notes* Telephone Encounter - Bev [...] 06, 2024 8:10 AM documented in this encounterOhio [facility] East Hospital12-16-2024 Telephone encounter Note * Telephone Encounter [...] Kwong LPN May 09, 2024 2:37 PM [facility]12-16-2024 Miscellaneous Notes* Telephone Encounter - Ellie [...] 09, 2024 2:37 PM documented in this encounterOhio State East Hospital12-10-2024 Instructions* Patient Instructions* Bettina Fuentes APRN.CNP - 05/03/2024 4:16 PM EST 1) Full liquid diet today, advance as tolerated- soft then regular 2) Cipro 500 mg 2 x day 3) Flagyl 500 mg 3 x day 4) Follow up in 6 months documented in this encounterOhio State East Hospital12-10-2024 NoteHNO ID: [id number] Author: BETTINA FUENTES APRN.CNP Service: ? Author Type: Clinical Nurse Specialist [...] 1. Dysuria - IC (more content not included)...[facility] 05-03-2024 History of Present illness Narrative* Bettina Fuentes APRN.RACHID - 05/03/2024 4:00 PM EST This is [...] improvement. Bettina Fuentes APRN.RACHID documented in this encounterOhio State East Hospital12-06-2024 Telephone encounter Note * Telephone Encounter - Usha Zhong LPN - 04/29/2024 10:47 AM EST Patient given results and verbalized understanding of instructions given. Usha Zhong LPN [facility]12-06-2024 Miscellaneous Notes* Telephone Encounter - Usha Zhong LPN - 04/29/2024 10:47 AM EST Patient given results and verbalized understanding of instructions given. sUha Zhong LPN * Telephone Encounter - Usha Zhong LPN - 04/28/2024 3:49 PM EST My chart message sent. Usha Zhong LPN * Telephone Encounter - Geronimo Estrada MD - 04/28/2024 1:57 PM EST Urine culture did not look like a clean sample so it did not show a clear infection. Follow up withPCP, urology, or APPLIANCE INSTALLER if symptoms persist. documented in this encounterOhio State East Hospital12-05-2024 Telephone encounter Note * Telephone Encounter - Usha Zhong LPN - 04/28/2024 3:49 PM EST My chart message sent. Usha Zhong LPN [facility]12-05-20[facility] Telephone encounter Note* Telephone Encounter - Geronimo Estrada MD - 04/28/2024 1:57 PM EST Urine culture did not look like a clean sample so it did not show a clear infection. Follow up withPCP, urology, or APPLIANCE INSTALLER if symptoms persist. [facility] Work Phone: [phone] NoteHNO ID: [id number] Author: GERONIMO ESTRADA MD Service: ? Author Type: Physician [...] Send antibiotic if there is significant growth. Geronimo Estrada, [facility]12-04-2024 History of Present illness Narrative* Geronimo Estrada MD - 04/27/2024 8:43 AM EST [...] Send antibiotic if there is significant growth. Geronimo Estrada MD documented in this encounterOhio State East Hospital11-23-2024 History of Present illness Narrative* Raghu Barakat RT(R) - 04/16/2024 8:30 AM EST [...] PATIENT PRESENTS WITH AN IMPLANTABLE OR ATTACHED COTTAGE PARENT: No RADIOLOGY DEPARTMENT: General X-ray: Exam(s) Completed: Chest X-Ray PERIPHERAL IV DATA: Not applicable SIGNED BY: RT Axel(Master) April 16, 2024 8:25 AM documented in this encounterOhio State East Hospital11-23-2024 NoteHNO ID: [id number] Author: RAGHU BARAKAT RT(R) Service: ? Author Type: Technologist [...] PATIENT PRESENTS WITH AN IMPLANTABLE OR ATTACHED COTTAGE PARENT: No RADIOLOGY DEPARTMENT: General X-ray: Exam(s) Completed: Chest X-Ray PERIPHERAL IV DATA: Not applicable SIGNED BY: RT Axel(Master) April 16, 2024 8:25 [facility]11-23-2024 NoteHNO ID: [id number] Author: EDNA COURTNEY APRN.SCIENCE PROFESSOR Service: ? Author Type: Nurse Practitioner Type: Progress Notes Filed: 04/16/2024 08:39 Note Text: This note was created using Netsketriter. Subjective Fernanda Hernandez is a 44 year [...] - XR CHEST 2V FRONTAL/LAT Edna Courtney APRN.CNPBarnesville Hospital11-23-2024 History of Present illness Narrative* Edna Courtney APRN.RACHID - 04/16/2024 8:14 AM EST This note was created using NoteWriter. Subjective [...] FRONTAL/LAT Edna Courtney APRN.RACHID documented in this encounterOhio State East Hospital11-21-2024 NoteHNO ID: [id number] Author: ?, ?, ? Service: ? Author [...] navigator/ will call navigator back Navigation Signature: Bry Clarkprecious Thorpe April 14, 2024 10:36 [facility]11-21-2024 History of Present illness Narrative* Bry Martinez Sofia - 04/14/2024 10:36 AM EST POPULATION HEALTH [...] navigator/ will call navigator back Navigation Signature: Bry Jimchandni Thorpe April 14, 2024 10:36 AM documented in this encounterOhio State East Hospital11-21-2024 NotePatient Outreach ([facility]) FERNANDA HERNANDEZ ([id number]) 1980 F Date Time Provider Department 04/14/24 NO PCP [facility] During your visit today, we recorded the following information about you: Jon Thorpe Bryheike Black 04/14/2024 10:36 AM Signed POPULATION HEALTH NAVIGATION [...] navigator/ will call navigator back Navigation Signature: Bry Webb [facility] April 14, 2024 10:36 AM Allergies As [...] GI Upset Date Reviewed: 04/12/2024 Reviewed by: Bry Norton MA - Fully Assessed Prescriptions as [...] positive stool [R19.5] 02/04/2024 Encounter Status:Closed by JON THORPE BRY BLACK on 04/14/24[facility] NoteHNO ID: [id number] Author: BERNADETTE WINTERS PA Service: ? Author Type: Physician Employee Counselor Type: Progress Notes Filed: 04/12/2024 12:57 Note Text: This note was created using Netsketriter. Subjective Fernanda Hernandez is a 44 year [...] pressure and pain. She has been taking dwyp-uzw-zxzazrf cough and cold medications as well without [...] and congestion present. Ri (more content not included)...[facility]11-19-[facility] History of Present illness Narrative* Bernadette Winters, OG - 04/12/2024 12:53 PM EST This note was created using SteelBrickter. Subjective Fernanda Hernandez is a 44 year [...] pressure and pain. She has been taking dlaa-xvl-uvnzpbw cough and cold medications as well without [...] ER evaluation. OG Cervantes documented in this encounterOhio State East Hospital11-14-2024 NoteHNO ID: [id number] Author: ?, ?, ? Service: ? Author [...] by name and : No Navigation Signature: Bry Black Jon Pss April 07, 2024 1:39 [facility]11-14-2024 History of Present illness Narrative* Jon Lauren, Bry Black - 04/07/2024 1:37 PM EST POPULATION HEALTH NAVIGATION OUTREACH Action/FYI RP Patient Outreach - Left voicemail for patient to call back to schedule Provider ordered Follow up in Behavioral Health. (Please see Sustainability Roundtable order dated for (02/01/2024). Any agent can assist with scheduling. Reason for Outreach Care Gap/HCC or Scheduling Wellness Visits Care Gaps due: Follow-up Appointment Patient Contacted: m Patient identified by name and : No Navigation Signature: Bry Clarkprecious Thorpe April 07, 2024 1:39 PM documented in this encounterOhio State East Hospital11-14-2024 NotePatient Outreach ([facility]) FERNANDA HERNANDEZ ([id number]) 1980 F Date Time Provider Department 04/07/24 NO PCP [facility] During your visit today, we recorded the following information about you: Jon LaurenBry Sofia 04/07/2024 1:40 PM Signed POPULATION HEALTH NAVIGATION OUTREACH Action/FYI RP Patient Outreach - Left voicemail for patient to call back to schedule Provider ordered Follow up in Behavioral Health. (Please see Epic order dated for (02/01/2024). Any agent can assist with scheduling. Reason for Outreach Care Gap/HCC or Scheduling Wellness Visits Care Gaps due: Follow-up Appointment Patient Contacted: m Patient identified by name and : No Navigation Signature: Bry Webb Pss April 07, 2024 1:39 PM Allergies As [...] Date Reviewed: 02/15/2024 Reviewed by: Ashlee Lee APRN.SCIENCE PROFESSOR - Fully Assessed Prescriptions as of 04/07/2024 [...] positive stool [R19.5] 02/04/2024 Encounter Status:Closed by BRY MARTINEZ on 04/07/24[facility] Tele[facility] encounter Note* Telephone Encounter - Phyllis Beth MA - 03/15/2024 1:15 PM EDT Printed Records release from scanning for review to see what documentation they are requesting. Per Records release they are requesting all records in regards to spine, neck and back issues. [facility]route to [facility] to release information. Will update pt of this via Chlorogen. Phyllis Beth MA [facility]10-22-2024 Miscellaneous Notes* Telephone Encounter - Phyllis Beth MA - 03/15/2024 1:15 PM EDT Printed Records release from scanning for review to see what documentation they are requesting. Per Records release they are requesting all records in regards to spine, neck and back issues. Willroute to [facility] to release information. Will update pt of this via Chlorogen. Phyllis Beth MA * Telephone Encounter - Parmjit Mobley MD - 03/15/2024 12:42 PM EDT [...] MRI. Phyllis Beth MA documented in this encounterOhio State East Hospital10-22-2024 Telephone encounter Note * Telephone Encounter - Parmjit Mobley MD - 03/15/2024 12:42 PM EDT Needs to have records sent if not done. [facility] Work Phone: [phone] 521-471810-22-2024 Telephone encounter Note* Telephone Encounter - Phyllis Beth MA - 03/15/2024 9:42 AM EDT Can anyone advise if anything has been sent to Pain Mgmt? We did receive a request for records, that was scanned in on 02/04/24. We are not the ordering Provider of the MRI. Phyllis Beth MA [facility]10-09-2024 Telephone encounter Note* Telephone Encounter - [...] Ortega MA March 02, 2024 7:55 AM [facility]10-09-2024 Miscellaneous Notes* Telephone Encounter - Bev [...] 02, 2024 7:55 AM documented in this encounterOhio State East Hospital10-02-2024 History of Present illness Narrative* Anahi Downs APRN.SCIENCE PROFESSOR - 02/24/2024 1:58 PM EDT No show documented in this encounterOhio State East Hospital09-23-2024 History of Present illness Narrative* Ashlee Lee APRN.CNP - 02/15/2024 9:30 AM EDT FOLLOW UP VISIT - ENDOSCOPY Fernanda Hernandez 1980 [id number] REFERRING PHYSICIAN: No referring provider defined for [...] needed for worsening/no improvement. Ashlee Lee APRN.RACHID documented in this encounterOhio State East Hospital09-16-2024 History of Present illness Narrative* Deborah Whittaker APRN.RACHID - 02/08/2024 9:36 AM EDT Lumber Cutter offered: Patient declines. Fernanda is a 43 year old who presents for an annual gynecologic exam without complaints. Menses: no menses - continuous OCPs. Contraception: combined hormonal contraceptives HPV vaccine: No Last Pap: 02/13/2023 normal HPV: 02/07/2023 negative History of abnormal pap: Yes Last mammogram: 2023normal Sexually active: No OB History T0 L1 SAB0 IAB0 Ectopic0 Multiple0 Live Births0 Music Director History LMP: 08/28/2020 (Approximate), Drug Induced Amenorrhea Age at Menarche: Age at First : Age at Menopause: Music Director History Comments: Sexual Activity: Not Currently; Male [...] discussed with the Patient or Patient's Authorized Wool Classer. As applicable, any other physician, advance practice provider, medical student, or other health professional student that will be observing or involved in the sensitive examination for educational or training purposes was discussed with the Patient or Authorized Wool Classer. The Patient or Authorized Wool Classer has agreed to proceed with the sensitive [...] external genitalia normal, normal [place]th[place]'s glands, urethra, [place]'s glands, no vulvar lesions, no cervical lesions, [...] year or sooner as needed Deborah Whittaker APRN.SCIENCE PROFESSOR documented in this encounterOhio State East Hospital09-12-2024 NoteHNO ID: [id number] Author: JANI LUNA RN Service: ? Author Type: Registered Nurse Type: Nursing Progress Note Filed: 02/04/2024 10:14 Note Text: Patient's abdomen is soft and non tender. Patient voices no complaints.[facility]09-11-2024 Telephone encounter Note* Telephone Encounter - [...] all of those instructions and verbalized understanding. [facility]09-11-[facility] Miscellaneous Notes* Telephone Encounter - Melisa [...] and verbalized understanding. * Telephone Encounter - Rosmery Friedman LPN - 02/03/2024 2:00 PM EDT Patient instructed to contact office by Saman as she began GoLyte prep approximately 4 hours ago andhas not yet moved her bowels. Patient was to check if there was any additional instructions. Please advise. Rosmery Friedman LPN documented in this encounterOhio State East Hospital09-11-2024 Telephone encounter Note * Telephone Encounter - Rosmery Friedman LPN - 02/03/2024 2:00 PM EDT Patient instructed to contact office by Saman as she began GoLyte prep approximately 4 hours ago andhas not yet moved her bowels. Patient was to check if there was any additional instructions. Please advise. Rosmery Friedman LPN [facility]09-09-2024 History of Present illness Narrative* Anahi DownsPETR.SCIENCE PROFESSOR - 02/01/2024 10:34 AM EDT FOLLOW UP [...] visit. Either the patient or their legal patient care representative has been informed of the risks [...] which included preparing to see the patient, ucte-kp-llqb patient care, completing clinical documentation, obtaining and/or reviewing separately obtained history, performing a medically appropriate examination, counseling and educating the pat ient/family/caregiver, ordering medications, tests, or procedures, and care coordination (not separately reported). ADD ON PSYCHOTHERAPY CODE : No SIGNATURE: Anahi Downs APRN.RACHID PATIENT NAME: Fernanda Hernandez DATE: February 01, 2024 TIME: 10:34 AM documented in this encounterOhio State East Hospital09-09-2024 Telephone encounter Note * Telephone Encounter - Ellie Kwong LPN - 02/01/2024 8:38 AM EDT Spoke with patient confirming today's virtual visit at 10:30 AM. Ellie Kwong LPN [facility]09-09-2024 Miscellaneous Notes* Telephone Encounter - Ellie Kwong LPN - 02/01/2024 8:38 AM EDT Spoke with patient confirming today's virtual visit at 10:30 AM. Ellie Kwong LPN documented in this encounterOhio State East Hospital09-04-2024 Telephone encounter Note * Telephone Encounter - Hallie Kunz LPN - 01/27/2024 4:59 PM EDT These were completed and faxed as requested. [facility]-04-[facility] Miscellaneous Notes* Telephone Encounter - Hallie Kunz LPN - 01/27/2024 4:59 PM EDT These were completed and faxed as requested. * Telephone Encounter - Nargis Doyle MA - 01/18/2024 1:27 PM EDT Type of form: FMLA Form received via fax When form is completed, Fax form to [phone] Form has been forwarded to Nurse Practitioner: Anitha Doyle MA documented in this encounterOhio State East Hospital09-04-2024 Instructions* Patient Instructions* Ashlee Lee APRN.RACHID - 01/27/2024 3:34 PM EDT Images from [...] least 2 weeks before your procedure) Designated Photo Colorer on the Day of your Exam A responsible person MUST be present with you at Check In prior to your colonoscopy and REMAIN in the endoscopy area until you are discharged. You are NOT ALLOWED to drive, take a taxi or bus, or leave the Endoscopy Center ALONE. If you do not have a responsible flatbed company driver (family member or friend) with you [...] label lists what is in the products). 03/2021 Bowel Preparation Instructions for: SuTab Three [...] your colonoscopy. 2 03/2021 documented in this encounterOhio State East Hospital09-04-2024 Telephone encounter Note * Telephone Encounter - Ashlee Lee APRN.CNP - 01/27/2024 3:32 PM EDT SuTab prep ordered per the patient's request. [facility]09-04-20[facility] Miscellaneous Notes* Telephone Encounter - Ashlee Lee APRN.CNP - 01/27/2024 3:32 PM EDT SuTab prep ordered per the patient's request. documented in this encounterOhio State East Hospital08-29-2024 Telephone encounter Note * Telephone Encounter [...] Kwong LPN January 21, 2024 10:10 AM [facility]-29-[facility] Miscellaneous Notes* Telephone Encounter - Ellie [...] 21, 2024 10:10 AM documented in this encounterOhio State East Hospital08-26-2024 Telephone encounter Note * Telephone Encounter - Nargis Doyle MA - 01/18/2024 1:27 PM EDT Type of form: FMLA Form received via fax When form is completed, Fax form to [phone] Form has been forwarded to Nurse Practitioner: Anitha Doyle MA [facility]-23-[facility] Instructions* Patient Instructions* Bettina Fuentes APRN.CNP - 01/15/2024 3:21 PM EDT 1) FMLA paperwork as soon as it arrives 2) Follow up in 3 months documented in this encounterOhio State East Hospital08-23-2024 History of Present illness Narrative* Bettina Fuentes APRN.CNP - 01/15/2024 2:57 PM EDT This is a 43 year old female who presents today with: Patient presents with: Neck Pain HISTORY OF PRESENT ILLNESS: Fernanda Hernandez is a 43 year old female. Patient presents with: Neck Pain Missing work because of cervical and thoracic pain- upper back. Entire neck under base of skull across trapezius colin. And down to mid-thoracic. No radicular Sx. Sees pain management for this pain. Sees them at [facility]. Has seen director of critical care twice a week for this flare. Has [...] depression degrees, extension 25 degrees, 30 degrees colin., limited rotation Cardiovascular: Rate and Rhythm: Normal [...] S46.819A Seeing pain management, medical massotherapy, and director of critical care - FMLA pending 4. Cervical pain - ICD9: 723.1, ICD10: M54.2 Significant- ongoing since 12/30/23 Discussed treatment plan and patient voices understanding. Patient's questions answered appropriately. Medications and potential side effects were discussed and patient voices understanding. Return to the office as scheduled or as needed for worsening/no improvement. Bettina Fuentes APRN.SCIENCE PROFESSOR documented in this encounterOhio State East Hospital08-22-2024 Telephone encounter Note * Telephone Encounter - Pearl Curtis LPN - 01/14/2024 10:30 AM EDT TC to Pt. Pt stated she is to go on line and fill out her portion of FMLA and the company will fax to PCP office. Faxed number to Pt. [phone] Pearl Curtis LPN [facility]08-22-2024 Miscellaneous Notes* Telephone Encounter - Pearl Curtis LPN - 01/14/2024 10:30 AM EDT TC to Pt. Pt stated she is to go on line and fill out her portion of FMLA and the company will fax to PCP office. Faxed number to Pt. [phone] Pearl Curtis LPN * Telephone Encounter - Phyllis Beth MA - 01/14/2024 8:59 AM EDT See pt message and advise if you would complete forms or if this should be coming from Pain Mgmt since they are treating her. Last seen patient on 08/21/23. We are not accepting Transfer to establish. Phyllis Beth MA documented in this encounterOhio State East Hospital08-22-2024 Telephone encounter Note * Telephone Encounter - Phyllis Beth MA - 01/14/2024 8:59 AM EDT See pt message and advise if you would complete forms or if this should be coming from Pain Mgmt since they are treating her. Last seen patient on 08/21/23. We are not accepting Transfer to establish. Phyllis Beth MA [facility]08-22-20[facility] Telephone encounter Note* Telephone Encounter - Bettina Fuentes APRN.CNP - 01/14/2024 7:49 AM EDT Cyclobenzaprine was sent [facility]08-22-20[facility] Miscellaneous Notes* Telephone Encounter - Bettina Fuentes APRN.CNP - 01/14/2024 7:49 AM EDT Cyclobenzaprine was sent * Telephone Encounter - Deanna Sadler RN - 01/13/2024 5:36 PM EDT Patient [...] 13, 2024 2:01 PM documented in this encounterOhio State East Hospital08-21-2024 Telephone encounter Note * Telephone Encounter - Deanna Sadler RN - 01/13/2024 5:36 PM EDT Patient calling to ask if script was sent to pharmacy? She says she needed it today. Advised not sent yet but will send request. Deanna Sadler RN [facility]08-21-20[facility] Telephone encounter Note* Telephone Encounter - Claudia Finch APRN.CNP - 01/13/2024 5:35 PM EDT Needs appt. Claudia Finch APRN.CNP [facility]08-21-2024 Miscellaneous Notes* Telephone Encounter - Claudia Finch APRN.CNP - 01/13/2024 5:35 PM EDT Needs appt. Claudia Finch APRN.CNP * Telephone Encounter - Hallie Kunz LPN - 01/13/2024 8:50 AM EDT [...] by mouth every 4 hours as needed. Hallie Kunz LPN January 13, 2024 8:51 AM documented in this encounterOhio State East Hospital08-21-2024 Telephone encounter Note * Telephone Encounter - Hallie Kunz LPN - 01/13/2024 5:19 PM EDT Duplicate request. Another request is already sent to provider for review with correct pharmacy. [facility] Miscellaneous Notes* Telephone Encounter - Hallie Kunz LPN - 01/13/2024 5:19 PM EDT Duplicate request. Another request is already sent to provider for review with correct pharmacy. documented in this encounterOhio State East Hospital08-21-2024 Telephone encounter Note * Telephone Encounter - Ellie Kwong LPN - 01/13/2024 4:14 PM EDT 01/13/2024 - called and spoke with patient to schedule a virtual visit. Scheduled patient for Thursday, February 01, 2024 at 10:30 AM. Ellie Kwong LPN [facility]-21-[facility] Miscellaneous Notes* Telephone Encounter - Ellie Kwong LPN - 01/13/2024 4:14 PM EDT 01/13/2024 - called and spoke with patient to schedule a virtual visit. Scheduled patient for Thursday, February 01, 2024 at 10:30 AM. Ellie Kwong LPN * Telephone Encounter - Ellie Kwong LPN - 01/13/2024 8:36 AM EDT Please review and advise. Thank you. Ellie Kwong LPN documented in this encounterOhio State East Hospital08-21-2024 Telephone encounter Note * Telephone Encounter [...] Sadler RN January 13, 2024 2:01 PM [facility]-21-[facility] Telephone encounter Note* Telephone Encounter - Cher Andre RN - 01/13/2024 9:09 AM EDT Patient has an appointment 02/07 for annual [facility]-21-20[facility] Miscellaneous Notes* Telephone Encounter - Cher Andre RN - 01/13/2024 9:09 AM EDT Patient has an appointment 02/07 for annual documented in this encounterOhio State East Hospital08-21-2024 Telephone encounter Note * Telephone Encounter - Hallie Kunz LPN - 01/13/2024 8:50 AM EDT [...] by mouth every 4 hours as needed. Hallie Kunz LPN January 13, 2024 8:51 AM [facility]-21-[facility] Telephone encounter Note* Telephone Encounter - Ellie Kwong LPN - 01/13/2024 8:36 AM EDT Please review and advise. Thank you. Ellie Kwong LPN [facility]08-15-2024 Telephone encounter Note* Telephone Encounter - Temitope Lewis LPN - 01/07/2024 8:29 AM EDT Patient calling said she phoned Dr Rajput office and they did not have her pain management referral. Printed referral from July, office notes from July, lumbar xray and cervical xray results, face sheet, consult, insurance card copy and faxed to [phone] as requested. [facility] Miscellaneous Notes* Telephone Encounter - Temitope Lewis LPN - 01/07/2024 8:29 AM EDT Patient calling said she phoned Dr Rajput office and they did not have her pain management referral. Printed referral from July, office notes from July, lumbar xray and cervical xray results, face sheet, consult, insurance card copy and faxed to [phone] as requested. documented in this encounterOhio [facility] Nurse Note* Sara Oconnell RN - 12/28/2023 3:33 PM EDT This Nurse reviewed and provided patient with copy of written instructions. The patient verbalized understanding and was given a number for questions. Sara Oconnell RN [facility] Nurse Note* Sara Oconnell RN - [...] 12/20/2018 Sara Oconnell RN documented in this encounterOhio State [facility] Hospital08-05-2024 Nurse Note* Sara Oconnell RN - [...] 08/05/2023 Last Colonoscopy: 12/20/2018 Sara Oconnell RN [facility]08-05-[facility] History of Present illness Narrative* Ashlee Lee APRN.SCIENCE PROFESSOR - 12/28/2023 1:00 PM EDT HISTORY AND PHYSICAL Fernanda Hernandez : 1980 REFERRING PHYSICIAN: Faith Deluna [address] [facility] [address] CHIEF COMPLAINT: Patient presents with: Colon consult [...] prior endoscopy. Fernanda underwent upper endoscopy at [facility] with Dr. Gonzalez on 01/2020 for preop [...] entered by the nurse and reviewed by nc Nursing Notes: Sara Oconnell RN 12/28/2023 2:28 [...] necessary. Ashlee Lee APRN.CNP documented in this encounterOhio [facility]07-31-2024 Telephone encounter Note * Telephone Encounter - Pearl Salmon RN - 12/23/2023 9:06 AM EDT Pt saw the consult scheduling ticket for general surgery in her MyChart so she called in checking on that. Pt had seen the positive occult blood result. Pt given Faith's information and transferred to him tech to set up general surgery consult. [facility] Miscellaneous Notes* Telephone Encounter - Pearl Salmon RN - 12/23/2023 9:06 AM EDT Pt saw the consult scheduling ticket for general surgery in her MyChart so she called in checking on that. Pt had seen the positive occult blood result. Pt given Faith's information and transferred to him tech to set up general surgery consult. * [...] you. Faith Deluna APRN.CNP documented in this encounterOhio State [facility] Hospital07-31-2024 Telephone encounter Note * Telephone Encounter [...] possible colonoscopy. Thank you. Faith Deluna APRN.RACHID [facility]07-29-[facility] Telephone encounter Note* Telephone Encounter - Pearl Curtis LPN - 12/21/2023 9:10 AM EDT Patient notified of results, verbalizes understanding of instructions. Pt stated she turned stool sample in this AM. Pearl Curtis LPN [facility]07-29-2024 Miscellaneous Notes* Telephone Encounter - Pearl Curtis LPN - 12/21/2023 9:10 AM EDT Patient notified of results, verbalizes understanding of instructions. Pt stated she turned stool sample in this AM. Pearl Curtis LPN * Telephone Encounter - Faith [...] any questions. Thank you. Faith Deluna APRN.CNP documented in this encounterOhio State East Hospital07-29-2024 Telephone encounter Note * Telephone Encounter [...] any questions. Thank you. Faith Deluna APRN.CNP [facility] History of Present illness Narrative* Hetal Shafer RT(Master) - 12/16/2023 10:00 AM EDT [...] PATIENT PRESENTS WITH AN IMPLANTABLE OR ATTACHED COTTAGE PARENT: No RADIOLOGY DEPARTMENT: General X-ray: Exam(s) Completed: Abdomen X-Ray: Abdomen PERIPHERAL IV DATA: Not applicable SIGNED BY: RT Jessica(Master) December 16, 2023 9:53 AM documented in this encounterOhio State East Hospital07-24-2024 Instructions* Patient Instructions* Faith Deluna APRN.CNP - 12/16/2023 9:34 AM EDT Complete abdomen Xray Complete stool testing Recommend increasing fiber and water in the diet. If needed may add on physllium Husk May use Miralax 1-2 times per day as needed for constipation Red flag symptoms go to ER Follow up pending test results or sooner as needed. documented in this encounterOhio State East Hospital07-24-2024 History of Present illness Narrative* Faith Deluna APRN.CNP - 12/16/2023 9:00 AM EDT This is a 43 year old female who presents today with: Patient presents with: Acute Visit: Low back pain, cramping and diarrhea HISTORY OF PRESENT ILLNESS: Fernanda Hernandez is a 43 year old female. Patient presents with: Acute Visit: Low back pain, cramping and diarrhea Patient of lAfonzo Garcia PA-C, here in the office for [...] fever or chills. Was seen by PCP cafeteria team leader in October when symptoms first started. Lab workup at that time was all normal. History of GERD and IBS with diarrhea. Not currently following with GI, Reports she has not seen [facility] years [facility], did have a phone [...] and symmetric. Sensation grossly intact. Latest Ref [facility] 11/13/2023 WBC 3.70 - 11.00 k/uL 7.23 [...] Abs Lymph 1.00 - 4.00 k/uL 2.43 Cook% % 5.5 Abs Cook <0.87 k/uL 0.40 Eosin% % 4.3 Abs [...] discussed and patient voices understanding. Faith Deluna APRN.RACHID This note was partially generated using MVERSE voice recognition system. Note was reviewed for accuracy. There may be minor misspellings or grammar miscues with MVERSE voice recognition. documented in this encounterOhio State East Hospital07-08-2024 Telephone encounter Note * Telephone Encounter - Hallie Kunz LPN - 11/30/2023 10:35 AM EDT Patient is asking for meclizine to be filled. Order is pending. [facility] Miscellaneous Notes* Telephone Encounter - Hallie Kunz LPN - 11/30/2023 10:35 AM EDT Patient is asking for meclizine to be filled. Order is pending. * Telephone Encounter - Bettina Fuentes APRN.CNS - 11/30/2023 9:51 AM EDT Please clarify what medication patient needs? Meclizine does not help with neck pain. Her gabapentin is also . At 1 point she had cyclobenzaprine, muscle relaxer documented in this encounterOhio State East Hospital07-08-2024 Telephone encounter Note * Telephone Encounter - Bettina Fuentes APRN.CNS - 11/30/2023 9:51 AM EDT Please clarify what medication patient needs? Meclizine does not help with neck pain. Her gabapentin is also . At 1 point she had cyclobenzaprine, muscle relaxer [facility] Telephone encounter Note* Telephone Encounter - [...] Kwong LPN November 17, 2023 9:14 AM [facility] Miscellaneous Notes* Telephone Encounter - Ellie [...] 17, 2023 9:14 AM documented in this encounterOhio State East Hospital06-21-2024 Instructions* Patient Instructions* Claudia Finch APRN.SCIENCE PROFESSOR - 11/13/2023 10:46 AM EDT Get the labwork. Try the zofran. Luna diet and advance as tolerated. Send me [...] cause gastroenteritis, including rotaviruses, adenoviruses, and the [place] virus. Gastroenteritis is caused by swallowing one [...] someone who has stomach flu. Published by [employer]. This content is reviewed periodically and is subject to change as new health information becomes available. The information is intended to inform and educate and is not a replacement for medical evaluation, advice, diagnosis or treatment by a healthcare professional. Developed by [employer]. Copyright 2005 [employer] and/or one of its subsidiaries. All Rights Reserved. Special Instructions: Copyright [employer] 2006 Adult Health Advisor Copyright 2006 [employer]. All rights reserved. www.[employer] documented in this encounterOhio State East Hospital06-21-2024 History of Present illness Narrative* Claudia Finch APRN.SCIENCE PROFESSOR - 11/13/2023 10:04 AM EDT This is [...] x 1 week Pt was recently in [place] Last week: episodes of diarrhea with some improvement Thursday started noticing body aches Epigastric pain after eating following with vomiting it up BM this am was small, soft, and brown Last time vomiting was last night No lightheaded, dizziness Pt states she did not try any new foods while in [place] Pt tolerating fluids okay Pt taking tylenol [...] Diff, CMP, Iron/TIBC, Ferritin, and Lipase - Luna low residue diet - follow up early next week via [employer] messaging to update us on progress - [...] agrees with the plan. documented in this encounterOhio State East Hospital04-24-2024 History of Present illness Narrative* Bry Martinez - 09/16/2023 1:21 PM EDT POPULATION [...] declined: Not interested in scheduling Navigation Signature: Bry Thorpe September 16, 2023 1:21 PM documented in this encounterOhio State East Hospital04-05-2024 Miscellaneous Notes* Allied Health - Eugenio Orta RT(R) - 08/28/2023 9:00 AM EDT [...] PATIENT PRESENTS WITH AN IMPLANTABLE OR ATTACHED COTTAGE PARENT: No RADIOLOGY DEPARTMENT: General X-ray: Exam(s) Completed: GI/ Procedure(s): Upper GI with barium contrast PERIPHERAL IV DATA: Not applicable SIGNED BY: RT Mandy(R) August 28, 2023 9:47 AM documented in this encounterOhio State East Hospital04-04-2024 Miscellaneous Notes* Telephone Encounter - Deanna Sadler RN - 08/27/2023 4:43 PM EDT Spoke with patient. Given message from provider's office. Patient verbalizes understanding. Deanna Sadler RN * Telephone Encounter - Kerry Marie OCCA - 08/27/2023 9:57 AM EDT TC to patient with no answer. Left VM to return call to office to receive results. MABLE Hdez * Telephone Encounter - Faith Deluna APRN.SCIENCE PROFESSOR - 08/27/2023 6:53 AM EDT Can you [...] has any questions. Thank you. Faith Deluna APRN.SCIENCE PROFESSOR documented in this encounterOhio State East Hospital03-29-2024 History of Present illness Narrative* Cher [...] PATIENT PRESENTS WITH AN IMPLANTABLE OR ATTACHED COTTAGE PARENT: No RADIOLOGY DEPARTMENT: General X-ray: Exam(s) Completed: Spine X-Ray(s): Cervical AP / LAT / OBL andLumbar AP / LAT / L5-S1 PERIPHERAL IV DATA: Not applicable SIGNED BY: RT Singh(R) August 21, 2023 10:58 AM documented in this encounterOhio State East Hospital03-27-2024 Miscellaneous Notes* Telephone Encounter - Clive Zuniga DO - 08/19/2023 9:23 AM EDT Please restart the metformin and hold the phentermine. Increase the metformin every 2 weeks until on 4 tablets once a day with dinner. documented in this encounterOhio State East Hospital03-25-2024 Miscellaneous Notes* Telephone Encounter - Ellie [...] No need to notify patient. Ellie Kwong LPN documented in this encounterOhio State East Hospital03-25-2024 Miscellaneous Notes* Telephone Encounter - Baltazar Villalta LPN - 08/17/2023 2:32 PM EDT Sent to provider via another encounter documented in this encounterOhio State East Hospital03-21-2024 History of Present illness Narrative* Mandie [...] Shoulder Major Depressive Disorder, Recurrent Episode, Moderate ([facility]) Current Outpatient Medications Medication Sig Dispense Refill [...] data. Mandie Garcia PA-C documented in this encounterOhio State East Hospital03-13-2024 Miscellaneous Notes* Letter - Coordinator, Mammography - 08/05/2023 1:19 PM EDT August 05, 2023 PID: [id number] Fernanda Hernandez [address] [place] [address] Dear Ms. Hernandez, We are pleased to [...] report will be [facility] as part of your permanent medical record and are available for your continuing care. Thank you for allowing us to help in meeting your health care needs. Sincerely, Dr. Ashley Interpreting Radiologist [facility] (Normal over 40) documented in this encounterOhio State East Hospital03-13-2024 History of Present illness Narrative* Pearl Rosenbaum RT(R) - 08/05/2023 10:10 AM EDT Radiology [...] PATIENT PRESENTS WITH AN IMPLANTABLE OR ATTACHED COTTAGE PARENT: No RADIOLOGY DEPARTMENT: Mammography PERIPHERAL IV DATA: Not applicable SIGNED BY: RT Hayden(R) August 05, 2023 10:03 AM documented in this encounterOhio State East Hospital03-11-2024 Instructions* Patient Instructions* Mandie Garcia PA-C - 08/03/2023 11:45 AM EDT Push fluids. documented in this encounterOhio State East Hospital03-11-2024 History of Present illness Narrative* Mandie [...] data. Mandie Garcia PA-C documented in this encounterOhio State East Hospital03-08-2024 History of Present illness Narrative* Mandie [...] reviewed. Push fluids Update progress tomorrow through OG Armendariz-C documented in this encounterOhio State East Hospital12-06-2023 Miscellaneous Notes* Addendum Note - Anahi Downs APRN.SCIENCE PROFESSOR - 04/29/2023 12:59 PM ESTAddended by: ANAHI DOWNS L on: 04/29/2023 12:59 PM Modules accepted: Orders documented in this encounterOhio State East Hospital12-06-2023 Miscellaneous Notes* Telephone Encounter - Ellie Kwong LPN - 04/29/2023 12:26 PM EST 04/29/2023 @ 10:59 - Per Anahi Downs, MSN, PMHNP-, she asked to check on the safety [...] able to be seen by her provider, Anahi. Ellie Kwong LPN * Telephone Encounter - Ellie Kwong LPN - 04/29/2023 12:19 PM EST 04/29/2023 @ 10:33 - Called and spoke with patient confirming today's virtual visit at 10:30 AM. Thepatient thought her appointment was at 2:00 p.m.. The patient was currently at the store during thecall. She said, she would go to her car for the Zoom call. Ellie Kwong LPN documented in this encounterOhio State East Hospital12-06-2023 History of Present illness Narrative* Anahi Downs APRN.[facility] - 04/29/2023 11:08 AM EST FOLLOW UP [...] visit. Either the patient or their legal patient care representative has been informed of the risks [...] when this provider could fit her in thecritical access hospital. She reports she doesn't feel like [...] exercise currently and quit her membership at [employer]. Given resources for ways to exercise at [...] is not doing therapy; suggested looking at [facility] for a therapist. She is currently taking [...] which included preparing to see the patient, riro-kb-dzgk patient care, completing clinical documentation, obtaining and/or reviewing separately obtained history, performing a medically appropriate examination, counseling and educating the pat ient/family/caregiver, ordering medications, tests, or procedures, and care coordination (not separately reported). ADD ON PSYCHOTHERAPY CODE : No SIGNATURE: Anahi Downs APRN.SCIENCE PROFESSOR PATIENT NAME: Fernanda Hernandez DATE: April 29, 2023 TIME: 11:08 AM * Anahi Downs APRN.CNP - 04/29/2023 10:48 AM EST checked in at 10:47 for 1030am appointment. We will reschedule her. documented in this encounterOhio State East Hospital12-04-2023 Miscellaneous Notes* Telephone Encounter - Ellie Kwong LPN - 04/27/2023 10:50 AM EST 04/27/2023 - called patient regarding a [employer] message. The patient states, she is okay, no suicidal thoughts or plans. She said, her medication needs adjusted. Scheduled patient for a virtual visit on Saturday, April 29, 2023 at 2:00 PM. Ellie Kwong LPN documented in this encounterOhio State East Hospital11-20-2023 History of Present illness Narrative* Clive Zuniga DO - 04/13/2023 2:28 PM EST Images from the original note were not included. BMI Obesity Medicine Follow-Up Note April 13, 2023 Patient Summary: is 43 year old female who presents for follow-up evaluation of her obesity and related complications to the [facility] [place]. Date of Surgery: 11/08/2020 Surgeon: Dr. Florence [...] D and calcium level. -Refer to the [facility] dietitian for nutritional education. -Consider adding phentermine [...] which included preparing to see the patient, cazb-ut-ailg patient care, completing clinical documentation, obtaining and/or reviewing separately obtained history, and performing a medically appropriate examination. Clive Zuniga DO documented in this encounterOhio State East Hospital10-31-2023 Miscellaneous Notes* Addendum Note - Shashi Chahal APRN.CNP - 03/24/2023 9:05 AM EDTAddended by: SHASHI CHAHAL on: 03/24/2023 09:05 AM Modules accepted: Orders documented in this encounterOhio State East Hospital10-31-2023 History of Present illness Narrative* Shashi [...] of care. This note was generated using MVERSE software. It may contain errors in wording, punctuation, or spelling. Shashi Chahal APRN.SCIENCE PROFESSOR documented in this encounterOhio State East Hospital10-20-2023 Instructions* Patient Instructions* Mandie Garcia PA-C - 03/13/2023 2:24 PM EDT See instructions for cervical stretching documented in this [facility]10-[facility] History of Present illness Narrative* Mandie [...] needed Mandie Garcia PA-C documented in this encounterOhio State East Hospital09-28-2023 History of Present illness Narrative* Monse Catherine APRN.[facility] - 02/19/2023 2:46 PM EDT Subjective HPI [...] Discussed expected course of illness Monse Catherine APRN.CNP documented in this encounterOhio State East Hospital09-28-2023 Instructions* Patient Instructions* Monse Catherine APRN.CNP - 02/19/2023 2:45 PM EDT Images from [...] Discussed expected course of illness Monse Catherine APRN.SCIENCE PROFESSOR Adult Sinusitis Patient Education What is Sinusitis? Sinusitis [ugvl-mxy-epnf-tis] is inflammation of the sinuses or swelling [...] help. You may be instructed to take wblu-cfa-bqvsujv medications for symptoms. including fever reducers acetaminophen or ibuprofen, nasal saline spray, cough and cold preparations and decongestants as prescribed by the physician, nurse practitioner or physician child life assistant. Self-Care and Prevention: Rest Fluids for [...] or concerning to you. documented in this encounterOhio State East Hospital09-14-2023 History of Present illness Narrative* Deborah Whittaker APRN.CNP - 02/05/2023 9:28 AM EDT Lumber Cutter offered: Patient declines. Fernanda is a 42 year old who presents for an annual gynecologic exam with complaints, menopausal symptoms. Menses: no menses - continuous OCPs. 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 States she does not need extension of OCP until then documented in this encounterOhio State East Hospital07-17-2023 Miscellaneous Notes* Telephone Encounter - Bev [...] patient. Bev Ortega MA documented in this encounterOhio State East Hospital06-30-2023 Instructions* Patient Instructions* Clive Zuniga DO - 11/21/2022 11:38 AM EDT Mindful eating [...] a mindful eater may ask the waiter/waitress cafeteria to make a few tweaks to their order like holding the donovan or asking for Lao cheese rather than Cheddar. 4. Mindful eaters [...] how youeat more than what you eat. http://eatingminREBIScan.com/learn/mindful-eating/ documented in this encounterOhio State East Hospital06-30-2023 History of Present illness Narrative* Clive [...] 43.35 kg/(m^2) Total weight loss: 99 lbs Bethany weight: 64 kg (141 lb 2.3 oz) [...] 1500mg) one daily Multivitamin & Minerals: bariatric Bensussen Deutsch + 45 mg one daily Iron Supplement: [...] D and calcium level. -Refer to the BMI dietitian for nutritional education. -Consider adding phentermine [...] note REFERRALS: BMI dietitian LABS: Today: See Epic Orders I spent a total of 35 [...] visit. Either the patient or their legal patient care representative has been informed of the risks and benefits of -- and alternatives to -- treatment through a remote evaluation andconsents to proceed with the evaluation remotely. Clive Zuniga DO documented in this encounterOhio State East Hospital06-26-2023 Instructions* Patient Instructions* Mandie Garcia PA-C [...] cortisone effects take over. documented in this encounterOhio State East Hospital06-26-2023 History of Present illness Narrative* Mandie [...] improving. Mandie Garcia PA-C documented in this encounterOhio State East Hospital06-26-2023 Nurse Note* Ghazal John Ma - [...] - analgesics and NSAIDs documented in this encounterOhio State East Hospital06-12-2023 History of Present illness Narrative* Cher [...] 03, 2022 3:10 PM documented in this encounterOhio State East Hospital04-27-2023 History of Present illness Narrative* Anahi Downs APRN.SCIENCE PROFESSOR - 09/18/2022 4:33 PM EDT FOLLOW UP - PSYCHIATRIC PROGRESS NOTE I have communicated my name and active licensure. The patient's identity and physical location wereverified at the time of this visit. Either the patient or their legal patient care representative has been informed of the risks [...] next visit, can return to pcp for residential medication management mood is good and stable; [...] next visit, can return to pcp for residential medication management mood is good and stable; [...] which included preparing to see the patient, nviw-pt-vati patient care, completing clinical documentation, obtaining and/or reviewing separately obtained history, performing a medically appropriate examination, counseling and educating the pat ient/family/caregiver, ordering medications, tests, or procedures, and care coordination (not separately reported). ADD ON PSYCHOTHERAPY CODE : No SIGNATURE: Anahi Downs APRN.CNP PATIENT NAME: Fernanda Hernandez DATE: September 18, 2022 TIME: 4:33 PM documented in this encounterOhio State East Hospital04-27-2023 Miscellaneous Notes* Telephone Encounter - Ellie Kwong - 09/18/2022 3:47 PM EDT Spoke with patient confirming today's virtual visit at 4:30 PM. Ellie Kwong documented in this encounterOhio State East Hospital04-22-2023 Hospital Discharge instructions Additional Instructions Follow up with PCP 3-5 days. Return for any worsening of symptoms.[facility] Work Phone: 1(732) 191-648604-20-2023 Miscellaneous Notes* Telephone Encounter - Ellie Kwong - 09/11/2022 3:53 PM EDT 09/11/2022 - called patient to setup a future virtual visit, no answer. Sent patient a [employer] message regarding an available appointment. Ellie Kwong documented in this encounterOhio State East Hospital04-11-2023 Instructions* Patient Instructions* Mandie Garcia PA-C - 09/02/2022 5:18 PM EDT Ice/ moist heat, lineaments, OTC analgesics as needed. Stretching and posture reviewed. Push fluids. documented in this encounterOhio State East Hospital04-11-2023 History of Present illness Narrative* Mandie [...] Recurrent Major Depressive Disorder, in Full Remission ([facility]) Current Outpatient Medications Medication Sig Dispense Refill [...] with prompt capillary refill. No pass pointing. Nataliia Hallpike negative for nystagmus. OMT: Myofascial release [...] prn Mandie Garcia PA-C documented in this encounterOhio State East Hospital03-24-2023 Miscellaneous Notes* Telephone Encounter - Bev [...] notify patient. Bev Ortega documented in this encounterOhio State East Hospital03-09-2023 History of Present illness Narrative* Mandie [...] prn Mandie Garcia PA-C documented in this encounterOhio State East Hospital02-07-2023 History of Present illness Narrative* Zackery Sotomayor APRN.SCIENCE PROFESSOR - 07/01/2022 9:21 AM EST Subjective HPI [...] TABLET Zackery Sotomayor APRN.CNP documented in this encounterOhio State East Hospital11-30-2022 Miscellaneous Notes* Telephone Encounter - Areli [...] improving. Shashi Chahal APRN.CNP documented in this encounterOhio State East Hospital11-30-2022 History of Present illness Narrative* Hetal Shafer RT(R) - 04/23/2022 8:20 AM EST [...] DATA: Not applicable SIGNED BY: RT Jessica(R) April 23, 2022 8:21 AM documented in this [facility]10-11-2022 Miscellaneous Notes* Telephone Encounter - Mandie [...] note were not included. documented in this [facility]10-10-2022 Miscellaneous Notes* Telephone Encounter - David [...] advise. David Cummings LPN documented in this encounterOhio State East Hospital09-29-2022 Miscellaneous Notes* Telephone Encounter - Mandie Garcia PA-C - 02/20/2022 7:14 PM EDT The following approved medication requests have been transmitted electronically. Requested Prescriptions Signed Prescriptions Disp Refills methylPREDNISolone (MEDROL, JAVAN,) 4 mg Dose-Pack 21 tablet 0 Sig: Follow dosing instructions, take with food. Mandie Garcia PA-C * Telephone Encounter - Hallie Kunz LPN - 02/20/2022 4:26 PM EDT [...] Makes it red immediately. documented in this encounter[facility] Miscellaneous Notes* Telephone Encounter - Hallie Kunz LPN - 02/20/2022 4:27 PM EDT This message added to first and encounter closed. documented in this encounterOhio [facility]09-27-2022 History of Present illness Narrative* Mandie [...] history context and comparison. documented in this encounterOhio [facility] Hospital09-27-2022 Instructions* Patient Instructions* Mandie Garcia PA-C [...] [place] 4% lidocaine documented [facility] this [facility] Miscellaneous Notes* Telephone Encounter - Kim Arrington Ma - 02/15/2022 8:55 AM EDT Pt was given Skelaxin 800 mg to take yesterday. documented in this [facility] Miscellaneous Notes* Telephone Encounter - Mandie Garcia PA-C - 02/04/2022 1:16 PM EDT The following approved medication requests have been transmitted electronically. Requested Prescriptions Signed Prescriptions Disp Refills predniSONE (DELTASONE) 20 mg tablet 6 tablet 0 Sig: Take 2 tablets by mouth once daily for 3 days. Mandie Garcia PA-C documented in this [facility]09-12-2022 Miscellaneous Notes* Telephone Encounter - Jeri Leung LPN - 02/03/2022 11:21 AM EDT Last office visit: 01/16/22 See My Chart message. Patient asking for something stronger. documented in this [facility]08-25-2022 Instructions* Patient Instructions* Mandie Garcia PA-C [...] clench or grind at night, seeing an procurement cost coordinator or oral surgeon might be helpful to make a bite plate to keep you from being able to completely close your mouth. In the meantime, for about $20 you can purchase a moldable Doctor's [employer] Architect over the counter at most [employer] or [employer]. Behavioral therapy can also help to retrain the habits of clenching or grinding. documented in this encounterOhio [facility] Hospital08-25-2022 History of Present illness Narrative* Mandie [...] retreatment Mandie Garcia PA-C documented in this encounterOhio [facility] Hospital08-18-2022 Miscellaneous Notes* Telephone Encounter - Cher Andre RN - 01/09/2022 5:27 PM EDT I called pharmacy and spoke with Marie and they have new RX on file and will pull that documented in this encounterOhio [facility] Hospital07-26-2022 History of Present illness Narrative* Deborah Whittaker APRN.SCIENCE PROFESSOR - 12/17/2021 2:56 PM EDT Lumber Cutter offered: Patient declines. 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 Dilia Ortiz APRN.CNM * Telephone Encounter - Mary Lucia RN - 11/26/2021 9:30 AM EDT Patient over due for annual exam. Last annual was 05/15/20. 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 ADD ON PSYCHOTHERAPY CODE : No SIGNATURE: Anahi Downs APRN.CNP PATIENT NAME: Fernanda Hernandez DATE: November 21, 2021 TIME: 10:34 AM PAGER: n/a documented in this encounterOhio State [facility] Hospital06-24-2022 Miscellaneous Notes* Telephone Encounter - Hallie Kunz LPN - 11/15/2021 3:04 PM EDT Patient has been identified by name and date of : Yes Pending Prescriptions Disp Refills PANTOPRAZOLE 20 MG TABLET,DELAYED RELEASE 60 tablet 11 Sig: Take 1 tablet by mouth twice daily. VALENTE: No RX INSTRUCTIONS: Patient aware RX will be sent to pharmacy. No need to notify patient. Hallie Kunz LPN documented in this encounterOhio State [facility] Hospital06-24-2022 Miscellaneous Notes* Telephone Encounter - Henrietta Ahmet - 11/15/2021 9:38 AM EDT Patient requesting refill([facility] Last Seen: 05/12/20 Upcoming appt: None scheduled Pending Prescriptions Disp Refills ARIPIPRAZOLE 2 MG TABLET 30 tablet 0 Sig: Take 1 tablet by mouth once daily. no further refills until seen for an appointment VALENTE: No Please review and process accordingly. Thank you! documented in this encounterOhio State East Hospital06-20-2022 Miscellaneous Notes* Telephone Encounter - Baroncole SchillingFarhat - 11/11/2021 10:55 AM EDT Patient has [...] notify patient. Ellie Kwong documented in this encounterOhio State East Hospital06-20-2022 Miscellaneous Notes* Telephone Encounter - Marti Mcintyre RN - 11/11/2021 9:58 AM EDT Last annual 05/15/20. [employer] message sent to patient. Tamara refill was sent 09/20/21 for 3 packs Marti Mcintyre RN documented in this encounterOhio State East Hospital06-02-2022 History of Present illness Narrative* Deborah Whittaker APRN.RACHID - 10/24/2021 2:56 PM EDT Fernanda Hernandez is a 41 year old female who presents for vaginal pruritis, discharge and dysuria for3 week(s). [facility] Vaginal discharge: moderate amount, thick and yellow. [...] external genitalia normal, normal Bartholin's glands, urethra, [place]'s glands, no vulvar lesions, no cervical lesions, [...] Level: 4 - Moderate documented in this encounterOhio State [facility] Hospital05-23-2022 Miscellaneous Notes* Telephone Encounter - Hallie Kunz LPN - 10/14/2021 12:28 PM EDT Patient has been identified by name and date of : Yes Pending Prescriptions Disp Refills [id number] 50 MG-300 MG-40 MG CAPSULE 12 capsule 0 Sig: Take 1 capsule by mouth every 4 hours as needed. VALENTE: No RX INSTRUCTIONS: Mychart request Last seen 08/27/21 No future visit scheduled Hallie Kunz LPN documented in this encounterOhio State East Hospital05-23-2022 Miscellaneous Notes* Telephone Encounter - Lila [...] patient. Lila Gabriel RN documented in this encounterOhio State East Hospital05-16-2022 Instructions* Patient Instructions* Leticia Walls APRN.SCIENCE PROFESSOR - 10/07/2021 8:56 AM EDT Rest, ice, elevation, post op shoe as needed for comfort. Tylenol (generic acetaminophen) 500 mg-2 tabs every 8 hrs. as needed for fever and aches if pain persists beyond 10-14 days there are times where a repeat x-ray is needed to rule out occult fracture Follow up with PCP/podiatry as needed documented in this encounterOhio State [facility] Hospital05-16-2022 History of Present illness Narrative* Hetal Shafer RT(R) - 10/07/2021 8:10 AM EDT [...] 07, 2021 8:04 AM documented in this encounterOhio State [facility] Hospital05-16-2022 History of Present illness Narrative* Leticia Walls APRN.CNP - 10/07/2021 7:52 AM EDT Images from the original note were not included. Subjective The history is provided by the patient. No debeaker was used. HPI Fernanda Hernandez is a [...] have confirmed and edited as necessary, the [facility] Review of Systems Constitutional: Negative for [...] evaluation. Leticia Walls APRN.RACHID documented in this encounterOhio State [facility] Hospital05-02-2022 Miscellaneous Notes* Telephone Encounter - Ania [...] Yes Ania Burgess MA documented in this encounterOhio State [facility] Hospital03-23-2022 Miscellaneous Notes* Telephone Encounter - David Cummings LPN - 08/14/2021 11:26 AM EDT Patient phones requesting refills as follows: Pending Prescriptions Disp Refills [id number] 50 MG-300 MG-40 MG CAPSULE 12 capsule 0 Sig: Take 1 capsule by mouth every 4 hours as needed. VALENTE: No JADEN 07/29/21 NOV no upcoming appt Please review and advise. David Cummings LPN documented in this encounterOhio [facility] Hospital10-15-2021 History of Present illness Narrative* Hetal Shafer RT(R) - 03/08/2021 9:40 AM EDT Radiology [...] 08, 2021 9:39 AM documented in this encounterOhio State [facility] Hospital06-18-2021 History of Past illness Narrative* Problem [...] of this encounter (statuses as of 08/14/2021) [facility] Narrative* Problem [...] of this encounter (statuses as of 09/24/2021) [facility] Narrative* Problem [...] of this encounter (statuses as of 10/07/2021) [facility] Narrative* Problem [...] of this encounter (statuses as of 10/14/2021) [facility] Narrative* Problem [...] of this encounter (statuses as of 10/15/2021) [facility] Narrative* Problem [...] of this encounter (statuses as of 10/15/2021) [facility] Narrative* Problem [...] of this encounter (statuses as of 10/24/2021) [facility] Narrative* Problem [...] of this encounter (statuses as of 11/11/2021) [facility] Narrative* Problem [...] of this encounter (statuses as of 11/12/2021) [facility] Narrative* Problem [...] of this encounter (statuses as of 11/15/2021) [facility] Narrative* Problem [...] of this encounter (statuses as of 11/15/2021) [facility] Narrative* Problem [...] of this encounter (statuses as of 11/21/2021) [facility] Narrative* Problem [...] of this encounter (statuses as of 11/26/2021) [facility] Narrative* Problem [...] of this encounter (statuses as of 12/17/2021) [facility] Narrative* Problem [...] of this encounter (statuses as of 01/09/2022) [facility] Narrative* Problem [...] of this encounter (statuses as of 01/16/2022) [facility] Narrative* Problem [...] of this encounter (statuses as of 02/03/2022) [facility] Narrative* Problem [...] of this encounter (statuses as of 02/04/2022) [facility] Narrative* Problem [...] of this encounter (statuses as of 02/15/2022) [facility] Narrative* Problem [...] of this encounter (statuses as of 02/18/2022) [facility] Narrative* Problem [...] of this encounter (statuses as of 02/20/2022) [facility] Narrative* Problem [...] of this encounter (statuses as of 02/20/2022) [facility] Narrative* Problem [...] of this encounter (statuses as of 03/03/2022) [facility] N[facility]ative* Problem [...] of this encounter (statuses as of 03/04/2022) [facility] N[facility]* Problem [...] of this encounter (statuses as of 04/23/2022) [facility]* Problem [...] of this encounter (statuses as of 07/01/2022) [facility]* Problem [...] of this encounter (statuses as of 08/01/2022) [facility]* Problem [...] of this encounter (statuses as of 08/16/2022) [facility]* Problem [...] of this encounter (statuses as of 09/03/2022) [facility]* Problem [...] of this encounter (statuses as of 09/12/2022) [facility]* Problem [...] of this encounter (statuses as of 09/18/2022) [facility]* Problem [...] of this encounter (statuses as of 09/19/2022) [facility]* Problem [...] of this encounter (statuses as of 10/01/2022) [facility]* Problem [...] of this encounter (statuses as of 10/03/2022) [facility]* Problem [...] of this encounter (statuses as of 11/17/2022) [facility]* Problem [...] of this encounter (statuses as of 11/21/2022) [facility]* Problem [...] of this encounter (statuses as of 11/21/2022) [facility]* Problem [...] of this encounter (statuses as of 11/24/2022) [facility]* Problem [...] of this encounter (statuses as of 12/09/2022) [facility]* Problem [...] of this encounter (statuses as of 12/23/2022) [facility]* Problem [...] of this encounter (statuses as of 12/31/2022) [facility] Problem [...] of this encounter (statuses as of 01/16/2023) [facility] Problem [...] of this encounter (statuses as of 02/05/2023) [facility] Problem [...] of this encounter (statuses as of 02/20/2023) [facility] Problem [...] of this encounter (statuses as of 03/13/2023) [facility] Problem [...] of this encounter (statuses as of 03/24/2023) [facility] Problem [...] of this encounter (statuses as of 03/29/2023) [facility] Problem [...] of this encounter (statuses as of 04/14/2023) [facility] Problem [...] of this encounter (statuses as of 04/27/2023) [facility] Problem [...] of this encounter (statuses as of 04/29/2023) [facility] Problem [...] of this encounter (statuses as of 04/29/2023) [facility] Problem [...] of this encounter (statuses as of 07/16/2023) [facility] Problem [...] of this encounter (statuses as of 07/31/2023) [facility] Problem [...] of this encounter (statuses as of 08/03/2023) [facility] Problem [...] of this encounter (statuses as of 08/06/2023) [facility] Problem [...] of this encounter (statuses as of 08/07/2023) [facility] Problem [...] of this encounter (statuses as of 08/14/2023) [facility] Problem [...] of this encounter (statuses as of 08/17/2023) [facility] Problem [...] of this encounter (statuses as of 08/17/2023) [facility] Problem [...] of this encounter (statuses as of 08/18/2023) [facility] Problem [...] of this encounter (statuses as of 08/19/2023) [facility] Problem [...] of this encounter (statuses as of 08/28/2023) [facility] Problem [...] of this encounter (statuses as of 08/29/2023) [facility] Narrative* Hetal Shafer RT(R) - 10/29/2020 2:10 PM EDT Radiology [...] 29, 2020 1:22 PM documented in this encounterOhio [facility]11-20-2020 History of Present illness Narrative* Cher Garcia (Rt), Tech - 04/13/2020 2:50 PM EST Radiology Service [...] 13, 2020 3:02 PM documented in this encounterOhio [facility] [place] [facility]* Diagnosis Recurrent major depressive disorder, in full remission (HCC) documented [facility] this encounter [facility] [place] [facility]* Diagnosis Injury of right foot, initial encounter- Primary Foot pain, right Pain in limb documented [facility] this encounter [facility] [place] [facility]* Diagnosis Vaginal discharge- Primary Leukorrhea, not specified as infective Dysuria documented [facility] this encounter [facility] [place] [facility]* Diagnosis Encounter for surveillance of contraceptive pills Surveillance of previously prescribed contraceptive pill documented [facility] this [facility] [place] [facility]* Diagnosis Recurrent major depressive disorder, in full remission (HCC)- Primary Anxiety disorder, unspecified type documented [facility] this encounter [facility] [place] [facility]* Diagnosis Encounter for surveillance of contraceptive pills Surveillance of previously prescribed contraceptive pill [facility] [place] [facility] Diagnosis Encounter for gynecological examination (general) (routine) without abnormal findings- Primary Encounter for surveillance of contraceptive pills Surveillance of previously prescribed contraceptive pill Encounter for screening mammogram for breast cancer Vaginal discharge Leukorrhea, not specified as infective [facility]* Diagnosis Encounter for surveillance of contraceptive pills Surveillance of previously prescribed contraceptive pill [facility] [place] [facility]* Diagnosis 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 Muscle tension headache Tension headache Cervicothoracic somatic dysfunction Nonallopathic lesion of cervical region, not elsewhere classified documented [facility] this encounter [facility] [place] [facility]* Diagnosis Neck sprain, initial encounter- Primary Cervicothoracic somatic dysfunction Nonallopathic lesion of cervical region, not elsewhere classified documented [facility] this [facility] [place] [facility]* Diagnosis Iron deficiency anemia, unspecified iron deficiency anemia type documented [facility] this [facility] [place] [facility]* Diagnosis Sinus pressure- Primary Other diseases of nasal cavity and sinuses documented [facility] [place] [facility]* Diagnosis Cervicothoracic somatic dysfunction- Primary Nonallopathic lesion of cervical region, not elsewhere classified [facility]* Diagnosis Recurrent major depressive disorder, in full remission (HCC) documented [facility] this [facility] [place] [facility]* Diagnosis Somatic dysfunction of spine, cervical- Primary Nonallopathic lesion of cervical region, not elsewhere classified Somatic dysfunction of spine, thoracic Nonallopathic lesion of thoracic region, not elsewhere classified Lightheadedness Dizziness and giddiness documented in this encounter [facility] [place] noteNo assessment information availableWMercy Health St[facility] Work Phone: Evaluation note* Diagnosis Anxiety disorder, unspecified type- Primary Recurrent major depressive disorder, in full remission (HCC) documented in this encounter [facility] [place] [facility]* Diagnosis Wheezing documented [facility] this [facility] [place] [facility]* Diagnosis Encounter for surveillance of contraceptive pills Surveillance of previously prescribed contraceptive pill documented [facility] this [facility] [place] [facility]* Diagnosis Pes anserine bursitis- Primary Pes anserinus tendinitis or bursitis Somatic dysfunction of cervical region Nonallopathic lesion of cervical region, not elsewhere classified Somatic dysfunction of spine, thoracic Nonallopathic lesion of thoracic region, not elsewhere classified documented [facility] this encounter [facility] [place] [facility]* Diagnosis Weight gain following gastric bypass surgery- Primary documented [facility] this [facility] [place] [facility]* Diagnosis Encounter for screening mammogram for breast cancer documented [facility] this [facility] [place] [facility]* Diagnosis Recurrent major depressive disorder, in full remission (HCC) documented in this [facility] [place] [facility]* Diagnosis Onset Date Resolution Status Osteoarthritis of right knee acute Patellofemoral syndrome of both knees acute Right knee pain [facility] Work Phone: Evaluation note* Diagnosis Onset Date Resolution Status Osteoarthritis of right knee acute Patellofemoral syndrome of both knees acute Right knee pain acute Osteoarthritis of left knee acute [facility] Work Phone: Evaluation note* Diagnosis Encounter for surveillance of contraceptive pills Surveillance of previously prescribed contraceptive pill documented [facility] this encounter [facility] [place] [facility]* Diagnosis Encounter for gynecological examination (general) [...] female climacteric states documented [facility] [place] [facility]* Diagnosis Bacterial sinusitis- Primary Unspecified sinusitis (chronic) Other acute nonsuppurative otitis media of left ear, recurrence not specified COVID-19 documented in this encounter [facility] [place] [facility]* Diagnosis Somatic dysfunction of spine, cervical- Primary Nonallopathic lesion of cervical region, not elsewhere classified Somatic dysfunction of spine, thoracic Nonallopathic lesion of thoracic region, not elsewhere classified documented [facility] this [facility] [place] [facility]* Diagnosis Seasonal allergies- Primary Allergic rhinitis, cause unspecified documented [facility] this [facility] [place] [facility]* Diagnosis Acute pain of left knee documented in this encounter [facility] [place] note* Diagnosis Weight gain following gastric bypass [facility]- [facility] [place] [facility] Diagnosis Major depressive disorder, recurrent, moderate (HCC)- Primary Major depressive disorder, recurrent episode, moderate Anxiety disorder, unspecified type [facility] [place] [facility]* Diagnosis Somatic dysfunction of spine, cervical- Primary Nonallopathic lesion of cervical region, not elsewhere classified Somatic dysfunction of rib Somatic dysfunction of left side of chest wall [facility] [place] [facility]* Diagnosis Somatic dysfunction of spine, cervical- Primary Nonallopathic lesion of cervical region, not elsewhere classified [facility] [place] [facility]* Diagnosis Encounter for screening mammogram for breast cancer [facility] [place] [facility]* Diagnosis Pain in left arm- Primary Pain in left leg [facility] [place] [facility]* Diagnosis Weight gain following gastric bypass surgery- Primary Anxiety disorder, unspecified type [facility] [place] [facility]* Diagnosis Weight gain following [facility]- [facility] Weight gain following [facility] [place] [facility]* Diagnosis Nausea and vomiting, unspecified vomiting type- Primary Pain of upper abdomen Abdominal pain, other specified site Iron deficiency anemia, unspecified iron deficiency anemia type [facility] [place] [facility]* Diagnosis Major depressive disorder, recurrent, moderate (HCC) Major depressive disorder, recurrent episode, moderate [facility] [place] [facility]* Diagnosis Benign paroxysmal positional vertigo, unspecified laterality [facility] [place] [facility]* Diagnosis Diarrhea, unspecified type- Primary Abdominal cramping Abdominal pain, unspecified site [facility] [place] [facility]* Diagnosis Occult blood positive stool- Primary Nonspecific abnormal finding in stool contents [facility] [place] [facility]* Diagnosis Diarrhea, unspecified type- Primary Occult blood positive stool Nonspecific abnormal finding in stool contents [facility] [place] [facility]* Diagnosis Preoperative examination- Primary Preoperative examination, [...] not elsewhere classified [facility] [place] [facility]* Diagnosis Preoperative examination- Primary Preoperative examination, [...] not elsewhere classified [facility] [place] [facility]* Diagnosis Preoperative examination- Primary Preoperative examination, unspecified Morbid obesity (HCC) Morbid obesity Hiatal hernia Diaphragmatic hernia without mention of obstruction or gangrene [place] (obstructive sleep apnea) Obstructive sleep apnea (adult) (pediatric) 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) Major depressive disorder, recurrent episode, unspecified Encounter for surveillance of contraceptive pills Surveillance of previously prescribed contraceptive pill [facility] [place] [facility]* Diagnosis Preoperative examination- Primary Preoperative examination, [...] Cervical pain Cervicalgia [facility] [place] [facility]* Diagnosis Preoperative examination- Primary Preoperative examination, [...] malignant neoplasms, colon documented in this encounter [facility] note* Diagnosis Preoperative examination- Primary Preoperative examination, unspecified Morbid obesity (HCC) Morbid obesity Hiatal hernia Diaphragmatic hernia without mention of obstruction or gangrene [place] (obstructive sleep apnea) Obstructive sleep apnea (adult) (pediatric) 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) Major depressive disorder, recurrent episode, unspecified Abdominal cramping Abdominal pain, unspecified site documented in this encounter [facility] note* Diagnosis Preoperative examination- Primary Preoperative examination, [...] recurrent episode, moderate documented in this encounter [facility] note* Diagnosis Preoperative examination- Primary Preoperative examination, [...] malignant neoplasms, colon documented in this encounter [facility] note* Diagnosis Preoperative examination- Primary Preoperative examination, [...] prescribed contraceptive pill documented in this encounter [facility] note* Diagnosis Preoperative examination- Primary Preoperative examination, unspecified Morbid obesity (HCC) Morbid obesity Hiatal hernia Diaphragmatic hernia without mention of obstruction or gangrene [place] (obstructive sleep apnea) Obstructive sleep apnea (adult) (pediatric) 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) Major depressive disorder, recurrent episode, unspecified Diarrhea, unspecified type- Primary [facility] [place] [facility]* Diagnosis Preoperative examination- Primary Preoperative examination, unspecified Morbid obesity (HCC) Morbid obesity Hiatal hernia Diaphragmatic hernia without mention of obstruction or gangrene [place] (obstructive sleep apnea) Obstructive sleep apnea (adult) (pediatric) 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) Major depressive disorder, recurrent episode, unspecified Acute cough [facility] [place] [facility]* Diagnosis Preoperative examination- Primary Preoperative examination, unspecified Morbid obesity (HCC) Morbid obesity Hiatal hernia Diaphragmatic hernia without mention of obstruction or gangrene [place] (obstructive sleep apnea) Obstructive sleep apnea (adult) (pediatric) 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) Major depressive disorder, recurrent episode, unspecified Bronchitis due to COVID-19 virus [facility] [place] [facility]* Diagnosis Preoperative examination- Primary Preoperative examination, unspecified Morbid obesity (HCC) Morbid obesity Hiatal hernia Diaphragmatic hernia without mention of obstruction or gangrene [place] (obstructive sleep apnea) Obstructive sleep apnea (adult) (pediatric) 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) Major depressive disorder, recurrent episode, unspecified NO SHOW- Primary [facility] [place] [facility]* Diagnosis Acute pain of left knee Preoperative examination- Primary Preoperative examination, unspecified Morbid obesity (HCC) Morbid obesity Hiatal hernia Diaphragmatic hernia without mention of obstruction or gangrene [place] (obstructive sleep apnea) Obstructive sleep apnea (adult) (pediatric) 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) Major depressive disorder, recurrent episode, unspecified documented in this encounter [facility] note* Diagnosis Acute pain of left shoulder Preoperative examination- Primary Preoperative examination, unspecified Morbid obesity (HCC) Morbid obesity Hiatal hernia Diaphragmatic hernia without mention of obstruction or gangrene [place] (obstructive sleep apnea) Obstructive sleep apnea (adult) (pediatric) 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) Major depressive disorder, recurrent episode, unspecified documented in this encounter [facility] note* Diagnosis Preoperative examination- Primary Preoperative examination, [...] disorder, unspecified type [facility] [place] [facility]* Diagnosis Preoperative examination- Primary Preoperative examination, unspecified Morbid obesity (HCC) Morbid obesity Hiatal hernia Diaphragmatic hernia without mention of obstruction or gangrene [place] (obstructive sleep apnea) Obstructive sleep apnea (adult) (pediatric) 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) Major depressive disorder, recurrent episode, unspecified Sinobronchitis- Primary Unspecified sinusitis (chronic) Sore throat Acute pharyngitis [facility] [place] [facility]* Diagnosis Preoperative examination- Primary Preoperative examination, unspecified Morbid obesity (HCC) Morbid obesity Hiatal hernia Diaphragmatic hernia without mention of obstruction or gangrene [place] (obstructive sleep apnea) Obstructive sleep apnea (adult) (pediatric) 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) Major depressive disorder, recurrent episode, unspecified Other fatigue- Primary Other fatigue [facility] [place] [facility]* Diagnosis Preoperative examination- Primary Preoperative examination, unspecified Morbid obesity (HCC) Morbid obesity Hiatal hernia Diaphragmatic hernia without mention of obstruction or gangrene [place] (obstructive sleep apnea) Obstructive sleep apnea (adult) (pediatric) 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) Major depressive disorder, recurrent episode, unspecified Other fatigue [facility] [place] [facility]* Diagnosis Preoperative examination- Primary Preoperative examination, unspecified Morbid obesity (HCC) Morbid obesity Hiatal hernia Diaphragmatic hernia without mention of obstruction or gangrene [place] (obstructive sleep apnea) Obstructive sleep apnea (adult) (pediatric) 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) Major depressive disorder, recurrent episode, unspecified Urinary frequency- Primary [facility] [place] [facility]* Diagnosis Preoperative examination- Primary Preoperative examination, [...] of unspecified site [facility] [place] [facility]* Diagnosis Preoperative examination- Primary Preoperative examination, unspecified Morbid obesity (HCC) Morbid obesity Hiatal hernia Diaphragmatic hernia without mention of obstruction or gangrene [place] (obstructive sleep apnea) Obstructive sleep apnea (adult) (pediatric) 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) Major depressive disorder, recurrent episode, unspecified Major depressive disorder, recurrent, moderate (HCC) Major depressive disorder, recurrent episode, moderate [facility] [place] [facility]* Diagnosis Preoperative examination- Primary Preoperative examination, [...] disorder, unspecified type documented in this encounter [facility] note* Diagnosis Preoperative examination- Primary Preoperative examination, unspecified Morbid obesity (HCC) Morbid obesity Hiatal hernia Diaphragmatic hernia without mention of obstruction or gangrene [place] (obstructive sleep apnea) Obstructive sleep apnea (adult) (pediatric) 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) Major depressive disorder, recurrent episode, unspecified Sore throat- Primary Acute pharyngitis Rash Rash and other nonspecific skin eruption [facility] [place] [facility]* Diagnosis Preoperative examination- Primary Preoperative examination, [...] laterality, unspecified chronicity [facility] [place] [facility]* Diagnosis Preoperative examination- Primary Preoperative examination, unspecified Morbid obesity (HCC) Morbid obesity Hiatal hernia Diaphragmatic hernia without mention of obstruction or gangrene [place] (obstructive sleep apnea) Obstructive sleep apnea (adult) (pediatric) 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) Major depressive disorder, recurrent episode, unspecified Inflamed sebaceous cyst- Primary Sebaceous cyst [facility] [place] [facility]* Diagnosis Preoperative examination- Primary Preoperative examination, unspecified Morbid obesity (HCC) Morbid obesity Hiatal hernia Diaphragmatic hernia without mention of obstruction or gangrene [place] (obstructive sleep apnea) Obstructive sleep apnea (adult) (pediatric) 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) Major depressive disorder, recurrent episode, unspecified Benign paroxysmal positional vertigo, unspecified laterality [facility] [place] [facility]* Diagnosis Preoperative examination- Primary Preoperative examination, unspecified Morbid obesity (HCC) Morbid obesity Hiatal hernia Diaphragmatic hernia without mention of obstruction or gangrene [place] (obstructive sleep apnea) Obstructive sleep apnea (adult) (pediatric) 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) Major depressive disorder, recurrent episode, unspecified Epidermal inclusion cyst- Primary Sebaceous cyst [facility] [place] [facility]* Diagnosis Preoperative examination- Primary Preoperative examination, unspecified Morbid obesity (HCC) Morbid obesity Hiatal hernia Diaphragmatic hernia without mention of obstruction or gangrene [place] (obstructive sleep apnea) Obstructive sleep apnea (adult) (pediatric) 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) Major depressive disorder, recurrent episode, unspecified Infected sebaceous cyst- Primary Sebaceous cyst Epidermal inclusion cyst Sebaceous cyst [facility] [place] [facility]* Diagnosis Preoperative examination- Primary Preoperative examination, unspecified Morbid obesity (HCC) Morbid obesity Hiatal hernia Diaphragmatic hernia without mention of obstruction or gangrene [place] (obstructive sleep apnea) Obstructive sleep apnea (adult) (pediatric) 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) Major depressive disorder, recurrent episode, unspecified Infected sebaceous cyst- Primary Sebaceous cyst [facility] [place] [facility]* Diagnosis Preoperative examination- Primary Preoperative examination, [...] Primary Sebaceous cyst [facility] [place] [facility]* Diagnosis Preoperative examination- Primary Preoperative examination, unspecified Morbid obesity (HCC) Morbid obesity Hiatal hernia Diaphragmatic hernia without mention of obstruction or gangrene [place] (obstructive sleep apnea) Obstructive sleep apnea (adult) (pediatric) 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) Major depressive disorder, recurrent episode, unspecified Infected sebaceous cyst- Primary Sebaceous cyst documented in this encounter [facility] note* Diagnosis Preoperative examination- Primary Preoperative examination, unspecified Morbid obesity (HCC) Morbid obesity Hiatal hernia Diaphragmatic hernia without mention of obstruction or gangrene [place] (obstructive sleep apnea) Obstructive sleep apnea (adult) (pediatric) 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) Major depressive disorder, recurrent episode, unspecified Major depressive disorder, recurrent, moderate (HCC) Major depressive disorder, recurrent episode, moderate documented in this encounter [facility] note* Diagnosis Preoperative examination- Primary Preoperative examination, unspecified Morbid obesity (HCC) Morbid obesity Hiatal hernia Diaphragmatic hernia without mention of obstruction or gangrene [place] (obstructive sleep apnea) Obstructive sleep apnea (adult) (pediatric) 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) Major depressive disorder, recurrent episode, unspecified Major depressive disorder, recurrent, moderate (HCC) Major depressive disorder, recurrent episode, moderate documented in this encounter [facility] note* Diagnosis Preoperative examination- Primary Preoperative examination, [...] use of medication documented in this encounter [facility] note* Diagnosis Preoperative examination- Primary Preoperative examination, [...] disorder, unspecified type documented in this encounter [facility] note* Diagnosis Preoperative examination- Primary Preoperative examination, [...] disorder, unspecified type [facility] [place] [facility]* Diagnosis Preoperative examination- Primary Preoperative examination, unspecified Morbid obesity (HCC) Morbid obesity Hiatal hernia Diaphragmatic hernia without mention of obstruction or gangrene [place] (obstructive sleep apnea) Obstructive sleep apnea (adult) (pediatric) 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nt Major depressive disorder, recurrent episode, unspecified BPPV (benign paroxysmal positional vertigo), unspecified laterality- Primary [facility] [place] [facility]* Diagnosis Preoperative examination- Primary Preoperative examination, unspecified Morbid obesity (HCC) Morbid obesity Hiatal hernia Diaphragmatic hernia without mention of obstruction or gangrene [place] (obstructive sleep apnea) Obstructive sleep apnea (adult) (pediatric) 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nt Major depressive disorder, recurrent episode, unspecified Cervical radiculopathy Brachial neuritis or radiculitis nos [facility] [place] [facility]* Diagnosis Preoperative examination- Primary Preoperative examination, unspecified Morbid obesity (HCC) Morbid obesity Hiatal hernia Diaphragmatic hernia without mention of obstruction or gangrene [place] (obstructive sleep apnea) Obstructive sleep apnea (adult) (pediatric) 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nt Major depressive disorder, recurrent episode, unspecified Fibromyalgia- Primary Mylagia and myositis, unspecified [facility] [place] [facility]* Diagnosis Preoperative examination- Primary Preoperative examination, unspecified Morbid obesity (HCC) Morbid obesity Hiatal hernia Diaphragmatic hernia without mention of obstruction or gangrene [place] (obstructive sleep apnea) Obstructive sleep apnea (adult) (pediatric) 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nt Major depressive disorder, recurrent episode, unspecified BPPV (benign paroxysmal positional vertigo), unspecified laterality- Primary [facility] [place] [facility]* Diagnosis Preoperative examination- Primary Preoperative examination, unspecified Morbid obesity (HCC) Morbid obesity Hiatal hernia Diaphragmatic hernia without mention of obstruction or gangrene [place] (obstructive sleep apnea) Obstructive sleep apnea (adult) (pediatric) 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nt Major depressive disorder, recurrent episode, unspecified Allergic reaction, initial encounter- Primary [facility] [place] [facility]* Diagnosis Preoperative examination- Primary Preoperative examination, unspecified Morbid obesity (HCC) Morbid obesity Hiatal hernia Diaphragmatic hernia without mention of obstruction or gangrene [place] (obstructive sleep apnea) Obstructive sleep apnea (adult) (pediatric) 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nt Major depressive disorder, recurrent episode, unspecified Acute left-sided low back pain without sciatica- Primary Diarrhea, unspecified type Flatus Flatulence, eructation, and gas pain Gastroesophageal reflux disease without esophagitis Esophageal reflux Right upper quadrant abdominal pain Abdominal pain, right upper quadrant Severe recurrent major depression without psychotic features (HCC) Major depressive disorder, recurrent episode, severe, without mention of psychotic behavior Headache, unspecified headache type Dizziness Dizziness and giddiness documented [facility] this [facility] [place] [facility]* Diagnosis Preoperative examination- Primary Preoperative examination, unspecified Morbid obesity (HCC) Morbid obesity Hiatal hernia Diaphragmatic hernia without mention of obstruction or gangrene [place] (obstructive sleep apnea) Obstructive sleep apnea (adult) (pediatric) 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nt Major depressive disorder, recurrent episode, unspecified Abdominal bloating- Primary Flatulence, eructation, and gas pain Flatus Flatulence, eructation, and gas pain Gastroesophageal reflux disease without esophagitis Esophageal reflux Right upper quadrant abdominal pain Abdominal pain, right upper quadrant documented [facility] [place] [facility]* Diagnosis Preoperative examination- Primary Preoperative examination, unspecified Morbid obesity (HCC) Morbid obesity Hiatal hernia Diaphragmatic hernia without mention of obstruction or gangrene [place] (obstructive sleep apnea) Obstructive sleep apnea (adult) (pediatric) 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nt Major depressive disorder, recurrent episode, unspecified Flatus Flatulence, eructation, and gas pain documented in this encounter [facility] note* Diagnosis Preoperative examination- Primary Preoperative examination, unspecified Morbid obesity (HCC) Morbid obesity Hiatal hernia Diaphragmatic hernia without mention of obstruction or gangrene [place] (obstructive sleep apnea) Obstructive sleep apnea (adult) (pediatric) 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nt Major depressive disorder, recurrent episode, unspecified Abdominal bloating Flatulence, eructation, and gas pain Early satiety History of gastric bypass Bariatric surgery status documented in this encounter [facility] note* Diagnosis Preoperative examination- Primary Preoperative examination, unspecified Morbid obesity (HCC) Morbid obesity Hiatal hernia Diaphragmatic hernia without mention of obstruction or gangrene [place] (obstructive sleep apnea) Obstructive sleep apnea (adult) (pediatric) 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nt Major depressive disorder, recurrent episode, unspecified Acute left-sided low back pain without sciatica Severe recurrent major depression without psychotic features (HCC) Major depressive disorder, recurrent episode, severe, without mention of psychotic behavior Headache, unspecified headache type [facility] [place] [facility]* Diagnosis Preoperative examination- Primary Preoperative examination, unspecified Morbid obesity (HCC) Morbid obesity Hiatal hernia Diaphragmatic hernia without mention of obstruction or gangrene [place] (obstructive sleep apnea) Obstructive sleep apnea (adult) (pediatric) 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nt Major depressive disorder, recurrent episode, unspecified Fibromyalgia- Primary Mylagia and myositis, unspecified Dizziness Dizziness and giddiness Cervicothoracic somatic dysfunction Nonallopathic lesion of cervical region, not elsewhere classified Headache, unspecified headache type * Assessment & Plan Note - Bettina Fuentes APRN.CNP - 01/31/2025 2:24 PM EDTAssociated Problem(s): Fibromyalgia Switch back back to duloxetine and cancel nortriptyline, dizziness not better * Assessment & Plan Note - Bettina Fuentes APRN.CNP - 01/31/2025 2:24 PM EDTAssociated Problem(s): Cervicothoracic somatic dysfunction Ongoing- severe - in pain management, [facility] - Renew gabapentin, told no more than 600 mg in AM, 300 mg at bedtime documented in this encounter [facility] note* Diagnosis Preoperative examination- Primary Preoperative examination, unspecified Morbid obesity (HCC) Morbid obesity Hiatal hernia Diaphragmatic hernia without mention of obstruction or gangrene [place] (obstructive sleep apnea) Obstructive sleep apnea (adult) (pediatric) 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nt Major depressive disorder, recurrent episode, unspecified Fibromyalgia- Primary Mylagia and myositis, unspecified Dizziness Dizziness and giddiness Cervicothoracic somatic dysfunction Nonallopathic lesion of cervical region, not elsewhere classified Headache, unspecified headache type Viral upper respiratory infection- Primary Acute upper respiratory infections of unspecified site documented in this encounter [facility] note* Diagnosis Preoperative examination- Primary Preoperative examination, unspecified Morbid obesity (HCC) Morbid obesity Hiatal hernia Diaphragmatic hernia without mention of obstruction or gangrene [place] (obstructive sleep apnea) Obstructive sleep apnea (adult) (pediatric) 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nt Major depressive disorder, recurrent episode, unspecified Fibromyalgia- Primary Mylagia and myositis, unspecified Dizziness Dizziness and giddiness Cervicothoracic somatic dysfunction Nonallopathic lesion of cervical region, not elsewhere classified Headache, unspecified headache type Rhinosinusitis- Primary Unspecified sinusitis (chronic) URI, acute Acute upper respiratory infections of unspecified site Exposure to communicable disease Contact with or exposure to unspecified communicable disease documented in this encounter [facility] Discharge instructionsAdditional Instructions Ensure adequate hydration. Return with worsening symptoms or any concerns. Your blood work did not show any acute findings, your CTs of your head did not show any acute findings either. Use your meclizine and Zofran as prescribed.[facility] Work Phone: Reason for referral (narrative)* Diagnostic Procedure Only (Urgent) - Closed Specialty Diagnoses / Procedures Referred By Delilah bravo Referred To Contact XR IMAGING Diagnoses Injury of right foot, initial encounter Foot pain, right Procedures XR FOOT GENERAL 3V AP/LAT/OBL RIGHT RADEX FOOT COMPLETE MINIMUM 3 VIEWS Leticia Walls APRN.SCIENCE PROFESSOR [address] [place] [address] Xr Imaging Referral ID Status Reason Start Date Expiration Date V isits Requested Visits Authorized [id number] Closed Auto-Generate d Referral 10/07/2021 11/06/2022 1 1 [facility] for referral (narrative)* Diagnostic Procedure Only (Routine) - Authorized Specialty Diagnoses / Procedures Referred By Delilah bravo Referred To Contact [facility] Diagnoses Encounter for screening mammogram for breast cancer Procedures JEREMY SCREENING SCREENING MAMMOGRAPHY BI 2-VIEW BREAST INC Deborah Jha APRN.SCIENCE PROFESSOR [address] [place] [address] [facility] [address] [place] [address] Referral ID Status Reason Start Date Expiration Date Visits Requested Visits Authorized [id number] Authorized Auto-Generat ed Referral 12/17/2021 01/16/2023 1 1 [facility] for referral (narrative)* Diagnostic Procedure Only (Routine) - Pending Review Specialty Diagnoses / Procedures Referred By Krunalac t Referred To Contact [facility] Diagnoses Encounter for screening mammogram for breast cancer Procedures JEERMY SCREENING SCREENING MAMMOGRAPHY BI 2-VIEW BREAST INC Mandie Aguilera PA-C [address] [place] [address] [facility] [address] [place] [address] Referral ID Status Reason Start Date Expiration Date Visits Requested Visits Authorized [id number] Pending Review Auto-Generat ed Referral 11/19/2022 12/19/2023 1 1 [facility] for referral (narrative)* Diagnostic Procedure Only (Routine) - Authorized Specialty Diagnoses / Procedures Referred By Krunalac t Referred To Contact [facility] Diagnoses History of bilateral breast reduction surgery Procedures JEREMY SCREENING W YANELY SCREENING DIGITAL BREAST TOMOSYNTHESIS BI SCREENING MAMMOGRAPHY BI 2-VIEW BREAST INC Deborah Jha APRN.CNP [address] [place] [address] [facility] [address] [place] [address] Referral ID Status Reason Start Date Expiration Date Visits Requested Visits Authorized [id number] Authorized Auto-Generat ed Referral 02/05/2023 03/06/2024 1 1 [facility] for referral (narrative)* Diagnostic Procedure Only (Routine) - Closed Specialty Diagnoses / Procedures Referred By Delilah t Referred To Contact XR IMAGING Diagnoses Acute pain of left knee Procedures XR KNEE GENERAL 4V AP BOTH/PA BOTH/LAT/MERC LEFT RADIOLOGIC EXAM KNEE COMPLETE 4/MORE VIEWS Parmjit Mobley MD [address] [place] [address] Xr Imaging [facility] Referral ID Status Reason Start Date Expiration Date V isits Requested Visits Authorized [id number] Closed Auto-Generate d Referral 11/03/2022 12/03/2023 1 1 [facility] for referral (narrative)* Diagnostic Procedure Only (Routine) - Closed Specialty Diagnoses / Procedures Referred By Contac t Referred To Contact [facility] IM[facility] Diagnoses Encounter for screening mammogram for breast cancer Procedures JEREMY SCREENING SCREENING MAMMOGRAPHY BI 2-VIEW BREAST INC CAD Mandie Garcia PA-C [address] [place] [address] [facility] [address] [place] [address] Referral ID Status Reason Start Date Expiration Date V isits Requested Visits Authorized [id number] Closed Auto-Generate d Referral 11/19/2022 12/19/2023 1 1 [facility] for referral (narrative)* Diagnostic Procedure Only (Routine) - Pending Review Specialty Diagnoses / Procedures Referred By Delilah bravo Referred To Contact XR IMAGING Diagnoses Weight gain following gastric bypass surgery Procedures XR UPPER GI SINGLE CONTRAST RADIOLOGIC EXAM UPR GI TRC SINGLE CONTRAST STUDY Clive Zuniga DO [address] [address] Xr Imaging [facility] Referral ID Status Reason Start Date Expiration Date Visits Requested Visits Authorized [id number] Pending Review Auto-Generat ed Referral 08/17/2023 09/15/2024 1 1 T [facility] for referral (narrative)* Diagnostic Procedure Only (Routine) - Closed Specialty Diagnoses / Procedures Referred By Delilah t Referred To Contact XR IMAGING Diagnoses Weight gain following gastric bypass surgery Procedures XR UPPER GI SINGLE CONTRAST RADIOLOGIC EXAM UPR GI TRC SINGLE CONTRAST STUDY Clive Zuniga DO [address] [place] [id number] [place] [address] Referral ID Status Reason Start Date Expiration Date V isits Requested Visits Authorized [id number] Closed Auto-Generate d Referral 05/25/2023 05/24/2024 1 1 [facility] for referral (narrative)* Diagnostic Procedure Only (Routine) - Closed Specialty Diagnoses / Procedures Referred By Contac t Referred To Contact XR IMAGING Diagnoses Abdominal cramping Procedures XR ABDOMEN 1V SUPINE RADIOLOGIC EXAM ABDOMEN 1 VIEW Faith Deluna APRN.SCIENCE PROFESSOR [address] [place] [address] [place] [address] Referral ID Status Reason Start Date Expiration Date V isits Requested Visits Authorized [id number] Closed Auto-Generate d Referral 12/16/2023 01/14/2025 1 1 [facility] for referral (narrative)* Outpatient Procedure (Routine) - Authorized Specialty Diagnoses / Procedures Referred By Contac t Referred To Contact [facility] Diagnoses Diarrhea, unspecified type Occult blood positive stool Procedures COLONOSCOPY DIAGNOSTIC COLONOSCOPY FLX DX W/COLLJ SPEC WHEN Ashlee Juarez APRN.SCIENCE PROFESSOR [address] [place] [address] [facility] [address] [place] [address] Referral ID Status Reason Start Date Expiration Date Visits Requested Visits Authorized [id number] Authorized Auto-Generat ed Referral 12/28/2023 12/27/2024 1 1 [facility] for referral (narrative)* Diagnostic Procedure Only (Routine) - Closed Specialty Diagnoses / Procedures Referred By Contac t Referred To Contact XR IMAGING Diagnoses Abdominal cramping Procedures XR ABDOMEN 1V SUPINE RADIOLOGIC EXAM ABDOMEN 1 VIEW Faith Deluna APRN.SCIENCE PROFESSOR [address] [place] [address] [place] [address] Referral ID Status Reason Start Date Expiration Date V isits Requested Visits Authorized [id number] Closed Auto-Generate d Referral 12/16/2023 01/14/2025 1 1 [facility] for referral (narrative)* Diagnostic Procedure Only (Routine) - Closed Specialty Diagnoses / Procedures Referred By Contac t Referred To Contact XR IMAGING Diagnoses Low back pain with sciatica, sciatica laterality unspecified, unspecified back pain laterality, unspecified chronicity Procedures XR LUMBAR GENERAL 3V AP/LAT/L5-S1 RADEX SPINE LUMBOSACRAL 2/3 VIEWS Faith Deluna APRN.SCIENCE PROFESSOR [address] [place] [address] [place] [address] Referral ID Status Reason Start Date Expiration Date V isits Requested Visits Authorized [id number] Closed Auto-Generate d Referral 08/21/2023 09/19/2024 1 1 * Diagnostic Procedure Only (Routine) - Closed Specialty Diagnoses / Procedures Referred By Krunalac t Referred To Contact XR IMAGING Diagnoses Neck pain Procedures XR CERV OTHER 4V AP/LAT/OBL RADEX SPINE CERVICAL 4 OR 5 VIEWS Faith Deluna APRN.SCIENCE PROFESSOR [address] [place] [address] [place] [address] Referral ID Status Reason Start Date Expiration Date V isits Requested Visits Authorized [id number] Closed Auto-Generate d Referral 08/21/2023 09/19/2024 1 1 [facility] for referral (narrative)* Diagnostic Procedure Only (Routine) - New Request Specialty Diagnoses / Procedures Referred By Delilah t Referred To Contact [facility] Diagnoses Encounter for screening mammogram for breast cancer Procedures JEREMY SCREENING W YANELY SCREENING DIGITAL BREAST TOMOSYNTHESIS BI SCREENING MAMMOGRAPHY BI 2-VIEW BREAST INC CAD Deborah Whittaker APRN.SCIENCE PROFESSOR [address] [place] [address] [facility] [address] [place] [address] Referral ID Status Reason Start Date Expiration Date Visits Requested Visits Authorized [id number] New Request Auto-Generat ed Referral 02/08/2024 03/09/2025 1 1 [facility] for referral (narrative)No reason for referral information availableWMercy Health St[facility] Work Phone: Reason for visit Narrative* Diagnostic Procedure Only (Routine) - Closed Specialty Diagnoses / Procedures Referred By Contac t Referred To Contact XR IMAGING Diagnoses Acute pain of left knee Procedures XR KNEE GENERAL 4V AP BOTH/PA BOTH/LAT/MERC LEFT RADIOLOGIC EXAM KNEE COMPLETE 4/MORE VIEWS Parmjit Mobley MD [address] [place] [address] [place] [address] Referral ID Status Reason Start Date Expiration Date V isits Requested Visits Authorized [id number] Closed Auto-Generate d Referral 11/03/2022 12/03/2023 1 1 [facility] for visit Narrative* Diagnostic Procedure Only (Routine) - Closed Specialty Diagnoses / Procedures Referred By Contac t Referred To Contact [facility] Diagnoses Encounter for screening mammogram for breast cancer Procedures JEREMY SCREENING SCREENING MAMMOGRAPHY BI 2-VIEW BREAST INC CAD Mandie Garcia PA-C [address] [place] [address] [facility] [address] [place] [address] Referral ID Status Reason Start Date Expiration Date V isits Requested Visits Authorized [id number] Closed Auto-Generate d Referral 11/19/2022 12/19/2023 1 1 [facility] for visit Narrative* Diagnostic Procedure Only (Routine) - Closed Specialty Diagnoses / Procedures Referred By Contac t Referred To Contact XR IMAGING Diagnoses Weight gain following gastric bypass surgery Procedures XR UPPER GI SINGLE CONTRAST RADIOLOGIC EXAM UPR GI TRC SINGLE CONTRAST STUDY Clive Zuniga, [address] [place] [address] [place] [address] Referral ID Status Reason Start Date Expiration Date V isits Requested Visits Authorized [id number] Closed Auto-Generate d Referral 05/25/2023 05/24/2024 1 1 [facility] for visit Narrative* Diagnostic Procedure Only (Routine) - Closed Specialty Diagnoses / Procedures Referred By Contac t Referred To Contact XR IMAGING Diagnoses Abdominal cramping Procedures XR ABDOMEN 1V SUPINE RADIOLOGIC EXAM ABDOMEN 1 VIEW Faith Deluna, FACILITIES ADMINISTRATOR.SCIENCE PROFESSOR [address] [place] [address] [place] [address] Referral ID Status Reason Start Date Expiration Date V isits Requested Visits Authorized [id number] Closed Auto-Generate d Referral 12/16/2023 01/14/2025 1 1 [facility] for visit Narrative* Diagnostic Procedure Only (Routine) - Closed Specialty Diagnoses / Procedures Referred By Contac t Referred To Contact XR IMAGING Diagnoses Low back pain with sciatica, sciatica laterality unspecified, unspecified back pain laterality, unspecified chronicity Procedures XR LUMBAR GENERAL 3V AP/LAT/L5-S1 RADEX SPINE LUMBOSACRAL 2/3 VIEWS Faith Deluna, FACILITIES ADMINISTRATOR.SCIENCE PROFESSOR [address] [place] [address] [place] [address] Referral ID Status Reason Start Date Expiration Date V isits Requested Visits Authorized [id number] Closed Auto-Generate d Referral 08/21/2023 09/19/2024 1 1 [facility] for visit Narrative* Diagnostic Procedure Only (Urgent) - Closed Specialty Diagnoses / Procedures Referred By Contac t Referred To Contact XR IMAGING Diagnoses Injury of right foot, initial encounter Foot pain, right Procedures XR FOOT GENERAL 3V AP/LAT/OBL RIGHT RADEX FOOT COMPLETE MINIMUM 3 VIEWS Leticia Walls, FACILITIES ADMINISTRATOR.SCIENCE PROFESSOR [address] [place] [address] [place] [address] Referral ID Status Reason Start Date Expiration Date V isits Requested Visits Authorized [id number] Closed Auto-Generate d Referral 10/07/2021 11/06/2022 1 1 [facility] for visit Narrative* Diagnostic Procedure Only (Routine) - Closed Specialty Diagnoses / Procedures Referred By Contac t Referred To Contact XR IMAGING Diagnoses Flatus Procedures XR ABDOMEN 2V ROUTINE SUPINE W UPRIGHT/DECUB/CTL RADIOLOGIC EXAM ABDOMEN 2 VIEWS Jennifer Rodriguez APRN.[facility] [address] [facility]ENTERIntegrated Trade Processing [place] [address] Phone: tel: fax: [place] [address] Referral ID Status Reason Start Date Expiration Date V isits Requested Visits Authorized [id number] Closed Auto-Generate d Referral 01/17/2025 02/16/2026 1 1 [facility] for visit Narrative* Outpatient Procedure (Routine) - Closed Specialty Diagnoses / Procedures Referred By Delilah bravo Referred To Contact [facility] Diagnoses Abdominal bloating Early satiety History of gastric bypass Procedures EGD DIAGNOSTIC ESOPHAGOGASTRODUODENOSC OPY TRANSORAL DIAGNOSTIC Jennifer Rodriguez APRN.[facility] [address] [place] [address] Phone: tel: fax: [facility] [address] [place] [address] Referral ID Status Reason Start Date Expiration Date V isits Requested Visits Authorized [id number] Closed Auto-Generate d Referral 01/23/2025 01/23/2026 1 1 [facility] Summary Purpose Family History No Family History Records FoundNo Family History Records FoundNo Family History Records FoundNo Family History Records FoundNo Family History Records FoundNo Family History Records Found Advance Directives No Advanced Directives Records FoundDocuments on File Type Date Recorded Patient Wool Classer Expl anation Advance Directive(s) 11/02/2020 11:51 AM Advance Directive(s) 03/06/2017 9:40 AM Advance Directive(s) 03/13/2016 11:39 AM Documents on File Type Date Recorded Patient Wool Classer Expl anation Advance Directive(s) 11/02/2020 11:51 AM Advance Directive(s) 03/06/2017 9:40 AM Advance Directive(s) 03/13/2016 11:39 AM Advance Directive Response Recorded Date/ Time Advance Directives Yes March 19, 2016 9:25am Living Will Yes September 13, 2022 4:21pm Power of Electrician Yes September 13 4:21pm Name of Medical Power of Electrician JIM HERNANDEZ September 13, 2022 4:21pm Advance Directive Response Recorded Date/ Time Name of Medical Power of Electrician JIM HERNANDEZ September 13, 2022 4:21pm Advance Directives Yes March 19, 2016 9:25am Living Will No December 10, 2022 3:36pm Power of Electrician No December 10 3:36pm Advance Directive Response Recorded Date/ Time Living Will No June 28 6:41am Do you have a Healthcare Power of Electrician? No June 28, 2024 6:41am Living Will No July 18 10:24pm Do you have a Healthcare Power of Electrician? No July 18, 2024 10:24pm Living Will No June 27 8:32am Do you have a Healthcare Power of Electrician? No June 27, 2024 8:32am Advance Directives Yes March 19, 2016 9:25am Advance Directive Response Recorded Date/ Time Living Will No July 18 10:24pm Do you have a Healthcare Power of Electrician? No July 18, 2024 10:24pm Advance Directives Yes March 19, 2016 9:25am Advance Directive Response Recorded Date/ Time Do you have a Healthcare Power of Electrician? 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/ [employer] July 15, 2024 10:39am CHEST COLD, SORE THROAT July 18 7:11am 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/ [employer] July 18, 2024 8:01am HEADACHE July 18, [...] Osteoarthritis of left knee October 31 12:54pm Chief Complaint Admit Date LEFT KNEE September 13, 2024 9:0 0am VERTIGO/DR TO FAX October 05, 2024 8:30a m LEFT KNEE October 31, 2024 12:54 pm Room 3 October 31, 2024 1:19p m SELF PAY/SELF REF DRY NEEDLE December 2:30pm VERTIGO January 07, 2025 11 :02am Reason for Visit Admit Date Osteoarthritis of left knee September 13, 2024 9:00am Osteoarthritis of left knee October 31 12:54pm Reason for Referral Specialty Diagnoses / Procedures Referred By Contac t Referred To Contact Diagnoses Wheezing Clive Zuniga, DO [address] [place] [address] Referral ID Status Reason Start Date Expiration Date Visits Re quested Visits Authorized [id number] Closed 1 1 Specialty Diagnoses / Procedures Referred By Contac t Referred To Contact Diagnoses Major depressive disorder, recurrent, moderate (HCC) Procedures PROVIDER ORDERED FOLLOW UP OFFICE/OUTPATIENT [facility] 60-74 MINUTES Anahi Downs, FACILITIES ADMINISTRATOR.SCIENCE PROFESSOR [address] [place] [address] Referral ID Status Reason Start Date Expiration Date Visits Requested Visits Authorized [id number] Authorized PCP Requested Referral 06/15/2023 04/28/2024 1 1 Specialty Diagnoses / Procedures Referred By Contac t Referred To Contact General Surgery Diagnoses Occult blood positive stool Procedures CONSULT TO GENERAL SURGERY OFFICE/OUTPATIENT [facility] MDM 60 MINUTES Faith Deluna, FACILITIES ADMINISTRATOR.SCIENCE PROFESSOR [address] [place] [address] Referral ID Status Reason Start Date Expiration Date Visits Requested Visits Authorized [id number] Authorized PCP Requested Referral 12/23/2023 12/22/2024 1 1 Specialty Diagnoses / Procedures Referred By Contac t Referred To Contact Diagnoses Encounter for screening for malignant neoplasm of colon Ashlee Lee, FACILITIES ADMINISTRATOR.SCIENCE PROFESSOR [address] [place] [address] Referral ID Status Reason Start Date Expiration Date V isits Requested Visits Authorized [id number] Pending Review 01/27/2024 03/27/2024 1 1 Specialty Diagnoses / Procedures Referred By Contac t Referred To Contact Diagnoses Major depressive disorder, recurrent episode, moderate (HCC) Anxiety disorder, unspecified type Procedures PROVIDER ORDERED FOLLOW UP OFFICE/OUTPATIENT [facility] 60 MINUTES Anahi Downs APRN.SCIENCE PROFESSOR [address] [place] [address] Referral ID Status Reason Start Date Expiration Date Visits Requested Visits Authorized [id number] Authorized PCP Requested Referral 02/24/2024 01/31/2025 1 1 Medications Administered Section Inactive Administered Medications - up to 3 most recent administrations Medication Order MAR Action Action Date Dose Rate Site betamethasone acetate-betamethasone sodium phosphate 6 mg, BUPivacaine (PF) 5 mg, lidocaine (PF) 10 mg/mL (1 %) 10 mg INTRA-ARTICULAR, ONCE, 1 dose, On 11/17/22 at 1400, EXP: Given 11/17/2022 3:02 PM EDT Knee, Left Additional Source Comments INFORMATION SOURCE (unrecogn ized section and content) DATE CREATED AUTHOR 02/18/2020 [facility] ([place]) DATE CREATED AUTHOR AUTHOR'S ORGANIZ ATION 02/09/2024 [facility] DATE CREATED AUTHOR AUTHOR'S ORGANIZ ATION 08/02/2024 [facility] DATE CREATED AUTHOR AUTHOR'S ORGANIZ ATION 01/26/2025 [facility] DATE CREATED AUTHOR AUTHOR'S ORGANIZ ATION 03/30/2025 [facility] DATE CREATED AUTHOR AUTHOR'S ORGANIZ ATION 04/01/2025 [facility] Source Comments (unrecognize d section and content) In the event this informatio n is protected by the Federal Confidentiality of Alcohol and Drug Abuse Patient Records regulations: The Federal rules restrict any use of the information to criminally investigate or prosecute any alcohol or drug abuse patient.[facility] the event this information is protected by the Federal Confidentiality of Alcohol and Drug Abuse Patient Records regulations: The Federal rules restrict any use of the information to criminally investigate or prosecute any alcohol or drug abuse patient.[facility] Hospital[facility] the event this information is protected by the Federal Confidentiality of Alcohol and Drug Abuse Patient Records regulations: The Federal rules restrict any use of the information to criminally investigate or prosecute any alcohol or drug abuse patient.[facility] the event this information is protected by the Federal Confidentiality of Alcohol and Drug Abuse Patient Records regulations: The Federal rules restrict any use of the information to criminally investigate or prosecute any alcohol or drug abuse patient.[facility] the event this information is protected by the Federal Confidentiality of Alcohol and Drug Abuse Patient Records regulations: The Federal rules restrict any use of the information to criminally investigate or prosecute any alcohol or drug abuse patient.[facility] the event this information is protected by the Federal Confidentiality of Alcohol and Drug Abuse Patient Records regulations: The Federal rules restrict any use of the information to criminally investigate or prosecute any alcohol or drug abuse patient.[facility] Hospital[facility] the event this information is protected by the Federal Confidentiality of Alcohol and Drug Abuse Patient Records regulations: The Federal rules restrict any use of the information to criminally investigate or prosecute any alcohol or drug abuse patient.[facility] Hospital[facility] the event this information is protected by the Federal Confidentiality of Alcohol and Drug Abuse Patient Records regulations: The Federal rules restrict any use of the information to criminally investigate or prosecute any alcohol or drug abuse patient.[facility]In the event this information is protected by the Federal Confidentiality of Alcohol and Drug Abuse Patient Records regulations: The Federal rules restrict any use of the information to criminally investigate or prosecute any alcohol or drug abuse patient.[facility]In the event this information is protected by the Federal Confidentiality of Alcohol and Drug Abuse Patient Records regulations: The Federal rules restrict any use of the information to criminally investigate or prosecute any alcohol or drug abuse patient.[facility]In the event this information is protected by the Federal Confidentiality of Alcohol and Drug Abuse Patient Records regulations: The Federal rules restrict any use of the information to criminally investigate or prosecute any alcohol or drug abuse patient.[facility]In the event this information is protected by the Federal Confidentiality of Alcohol and Drug Abuse Patient Records regulations: The Federal rules restrict any use of the information to criminally investigate or prosecute any alcohol or drug abuse patient.[facility]In the event this information is protected by the Federal Confidentiality of Alcohol and Drug Abuse Patient Records regulations: The Federal rules restrict any use of the information to criminally investigate or prosecute any alcohol or drug abuse patient.[facility]In the event this information is protected by the Federal Confidentiality of Alcohol and Drug Abuse Patient Records regulations: The Federal rules restrict any use of the information to criminally investigate or prosecute any alcohol or drug abuse patient.[facility]In the event this information is protected by the Federal Confidentiality of Alcohol and Drug Abuse Patient Records regulations: The Federal rules restrict any use of the information to criminally investigate or prosecute any alcohol or drug abuse patient.[facility]In the event this information is protected by the Federal Confidentiality of Alcohol and Drug Abuse Patient Records regulations: The Federal rules restrict any use of the information to criminally investigate or prosecute any alcohol or drug abuse patient.[facility]In the event this information is protected by the Federal Confidentiality of Alcohol and Drug Abuse Patient Records regulations: The Federal rules restrict any use of the information to criminally investigate or prosecute any alcohol or drug abuse patient.[facility]In the event this information is protected by the Federal Confidentiality of Alcohol and Drug Abuse Patient Records regulations: The Federal rules restrict any use of the information to criminally investigate or prosecute any alcohol or drug abuse patient.[facility]In the event this information is protected by the Federal Confidentiality of Alcohol and Drug Abuse Patient Records regulations: The Federal rules restrict any use of the information to criminally investigate or prosecute any alcohol or drug abuse patient.[facility]In the event this information is protected by the Federal Confidentiality of Alcohol and Drug Abuse Patient Records regulations: The Federal rules restrict any use of the information to criminally investigate or prosecute any alcohol or drug abuse patient.[facility] HospitalIn the event this information is protected by the Federal Confidentiality of Alcohol and Drug Abuse Patient Records regulations: The Federal rules restrict any use of the information to criminally investigate or prosecute any alcohol or drug abuse patient.[facility] the event this information is protected by the Federal Confidentiality of Alcohol and Drug Abuse Patient Records regulations: The Federal rules restrict any use of the information to criminally investigate or prosecute any alcohol or drug abuse patient.[facility]In the event this information is protected by the Federal Confidentiality of Alcohol and Drug Abuse Patient Records regulations: The Federal rules restrict any use of the information to criminally investigate or prosecute any alcohol or drug abuse patient.[facility] HospitalIn the event this information is protected by the Federal Confidentiality of Alcohol and Drug Abuse Patient Records regulations: The Federal rules restrict any use of the information to criminally investigate or prosecute any alcohol or drug abuse patient.[facility]In the event this information is protected by the Federal Confidentiality of Alcohol and Drug Abuse Patient Records regulations: The Federal rules restrict any use of the information to criminally investigate or prosecute any alcohol or drug abuse patient.[facility]In the event this information is protected by the Federal Confidentiality of Alcohol and Drug Abuse Patient Records regulations: The Federal rules restrict any use of the information to criminally investigate or prosecute any alcohol or drug abuse patient.[facility]In the event this information is protected by the Federal Confidentiality of Alcohol and Drug Abuse Patient Records regulations: The Federal rules restrict any use of the information to criminally investigate or prosecute any alcohol or drug abuse patient.[facility]In the event this information is protected by the Federal Confidentiality of Alcohol and Drug Abuse Patient Records regulations: The Federal rules restrict any use of the information to criminally investigate or prosecute any alcohol or drug abuse patient.[facility]In the event this information is protected by the Federal Confidentiality of Alcohol and Drug Abuse Patient Records regulations: The Federal rules restrict any use of the information to criminally investigate or prosecute any alcohol or drug abuse patient.[facility]In the event this information is protected by the Federal Confidentiality of Alcohol and Drug Abuse Patient Records regulations: The Federal rules restrict any use of the information to criminally investigate or prosecute any alcohol or drug abuse patient.[facility]In the event this information is protected by the Federal Confidentiality of Alcohol and Drug Abuse Patient Records regulations: The Federal rules restrict any use of the information to criminally investigate or prosecute any alcohol or drug abuse patient.[facility]In the event this information is protected by the Federal Confidentiality of Alcohol and Drug Abuse Patient Records regulations: The Federal rules restrict any use of the information to criminally investigate or prosecute any alcohol or drug abuse patient.[facility]In the event this information is protected by the Federal Confidentiality of Alcohol and Drug Abuse Patient Records regulations: The Federal rules restrict any use of the information to criminally investigate or prosecute any alcohol or drug abuse patient.[facility] HospitalIn the event this information is protected by the Federal Confidentiality of Alcohol and Drug Abuse Patient Records regulations: The Federal rules restrict any use of the information to criminally investigate or prosecute any alcohol or drug abuse patient.[facility]In the event this information is protected by the Federal Confidentiality of Alcohol and Drug Abuse Patient Records regulations: The Federal rules restrict any use of the information to criminally investigate or prosecute any alcohol or drug abuse patient.[facility]In the event this information is protected by the Federal Confidentiality of Alcohol and Drug Abuse Patient Records regulations: The Federal rules restrict any use of the information to criminally investigate or prosecute any alcohol or drug abuse patient.[facility]In the event this information is protected by the Federal Confidentiality of Alcohol and Drug Abuse Patient Records regulations: The Federal rules restrict any use of the information to criminally investigate or prosecute any alcohol or drug abuse patient.[facility] HospitalIn the event this information is protected by the Federal Confidentiality of Alcohol and Drug Abuse Patient Records regulations: The Federal rules restrict any use of the information to criminally investigate or prosecute any alcohol or drug abuse patient.[facility]In the event this information is protected by the Federal Confidentiality of Alcohol and Drug Abuse Patient Records regulations: The Federal rules restrict any use of the information to criminally investigate or prosecute any alcohol or drug abuse patient.[facility]In the event this information is protected by the Federal Confidentiality of Alcohol and Drug Abuse Patient Records regulations: The Federal rules restrict any use of the information to criminally investigate or prosecute any alcohol or drug abuse patient.[facility]In the event this information is protected by the Federal Confidentiality of Alcohol and Drug Abuse Patient Records regulations: The Federal rules restrict any use of the information to criminally investigate or prosecute any alcohol or drug abuse patient.[facility]In the event this information is protected by the Federal Confidentiality of Alcohol and Drug Abuse Patient Records regulations: The Federal rules restrict any use of the information to criminally investigate or prosecute any alcohol or drug abuse patient.[facility]In the event this information is protected by the Federal Confidentiality of Alcohol and Drug Abuse Patient Records regulations: The Federal rules restrict any use of the information to criminally investigate or prosecute any alcohol or drug abuse patient.[facility]In the event this information is protected by the Federal Confidentiality of Alcohol and Drug Abuse Patient Records regulations: The Federal rules restrict any use of the information to criminally investigate or prosecute any alcohol or drug abuse patient.[facility]In the event this information is protected by the Federal Confidentiality of Alcohol and Drug Abuse Patient Records regulations: The Federal rules restrict any use of the information to criminally investigate or prosecute any alcohol or drug abuse patient.[facility]In the event this information is protected by the Federal Confidentiality of Alcohol and Drug Abuse Patient Records regulations: The Federal rules restrict any use of the information to criminally investigate or prosecute any alcohol or drug abuse patient.[facility]In the event this information is protected by the Federal Confidentiality of Alcohol and Drug Abuse Patient Records regulations: The Federal rules restrict any use of the information to criminally investigate or prosecute any alcohol or drug abuse patient.[facility]In the event this information is protected by the Federal Confidentiality of Alcohol and Drug Abuse Patient Records regulations: The Federal rules restrict any use of the information to criminally investigate or prosecute any alcohol or drug abuse patient.[facility] HospitalIn the event this information is protected by the Federal Confidentiality of Alcohol and Drug Abuse Patient Records regulations: The Federal rules restrict any use of the information to criminally investigate or prosecute any alcohol or drug abuse patient.[facility]In the event this information is protected by the Federal Confidentiality of Alcohol and Drug Abuse Patient Records regulations: The Federal rules restrict any use of the information to criminally investigate or prosecute any alcohol or drug abuse patient.[facility]In the event this information is protected by the Federal Confidentiality of Alcohol and Drug Abuse Patient Records regulations: The Federal rules restrict any use of the information to criminally investigate or prosecute any alcohol or drug abuse patient.[facility]In the event this information is protected by the Federal Confidentiality of Alcohol and Drug Abuse Patient Records regulations: The Federal rules restrict any use of the information to criminally investigate or prosecute any alcohol or drug abuse patient.[facility]In the event this information is protected by the Federal Confidentiality of Alcohol and Drug Abuse Patient Records regulations: The Federal rules restrict any use of the information to criminally investigate or prosecute any alcohol or drug abuse patient.[facility] HospitalIn the event this information is protected by the Federal Confidentiality of Alcohol and Drug Abuse Patient Records regulations: The Federal rules restrict any use of the information to criminally investigate or prosecute any alcohol or drug abuse patient.[facility] HospitalIn the event this information is protected by the Federal Confidentiality of Alcohol and Drug Abuse Patient Records regulations: The Federal rules restrict any use of the information to criminally investigate or prosecute any alcohol or drug abuse patient.[facility]In the event this information is protected by the Federal Confidentiality of Alcohol and Drug Abuse Patient Records regulations: The Federal rules restrict any use of the information to criminally investigate or prosecute any alcohol or drug abuse patient.[facility]In the event this information is protected by the Federal Confidentiality of Alcohol and Drug Abuse Patient Records regulations: The Federal rules restrict any use of the information to criminally investigate or prosecute any alcohol or drug abuse patient.[facility] HospitalIn the event this information is protected by the Federal Confidentiality of Alcohol and Drug Abuse Patient Records regulations: The Federal rules restrict any use of the information to criminally investigate or prosecute any alcohol or drug abuse patient.[facility]In the event this information is protected by the Federal Confidentiality of Alcohol and Drug Abuse Patient Records regulations: The Federal rules restrict any use of the information to criminally investigate or prosecute any alcohol or drug abuse patient.[facility] HospitalIn the event this information is protected by the Federal Confidentiality of Alcohol and Drug Abuse Patient Records regulations: The Federal rules restrict any use of the information to criminally investigate or prosecute any alcohol or drug abuse patient.[facility]In the event this information is protected by the Federal Confidentiality of Alcohol and Drug Abuse Patient Records regulations: The Federal rules restrict any use of the information to criminally investigate or prosecute any alcohol or drug abuse patient.[facility]In the event this information is protected by the Federal Confidentiality of Alcohol and Drug Abuse Patient Records regulations: The Federal rules restrict any use of the information to criminally investigate or prosecute any alcohol or drug abuse patient.[facility]In the event this information is protected by the Federal Confidentiality of Alcohol and Drug Abuse Patient Records regulations: The Federal rules restrict any use of the information to criminally investigate or prosecute any alcohol or drug abuse patient.[facility]In the event this information is protected by the Federal Confidentiality of Alcohol and Drug Abuse Patient Records regulations: The Federal rules restrict any use of the information to criminally investigate or prosecute any alcohol or drug abuse patient.[facility]In the event this information is protected by the Federal Confidentiality of Alcohol and Drug Abuse Patient Records regulations: The Federal rules restrict any use of the information to criminally investigate or prosecute any alcohol or drug abuse patient.[facility]In the event this information is protected by the Federal Confidentiality of Alcohol and Drug Abuse Patient Records regulations: The Federal rules restrict any use of the information to criminally investigate or prosecute any alcohol or drug abuse patient.[facility]In the event this information is protected by the Federal Confidentiality of Alcohol and Drug Abuse Patient Records regulations: The Federal rules restrict any use of the information to criminally investigate or prosecute any alcohol or drug abuse patient.[facility]In the event this information is protected by the Federal Confidentiality of Alcohol and Drug Abuse Patient Records regulations: The Federal rules restrict any use of the information to criminally investigate or prosecute any alcohol or drug abuse patient.[facility]In the event this information is protected by the Federal Confidentiality of Alcohol and Drug Abuse Patient Records regulations: The Federal rules restrict any use of the information to criminally investigate or prosecute any alcohol or drug abuse patient.[facility] HospitalIn the event this information is protected by the Federal Confidentiality of Alcohol and Drug Abuse Patient Records regulations: The Federal rules restrict any use of the information to criminally investigate or prosecute any alcohol or drug abuse patient.[facility] HospitalIn the event this information is protected by the Federal Confidentiality of Alcohol and Drug Abuse Patient Records regulations: The Federal rules restrict any use of the information to criminally investigate or prosecute any alcohol or drug abuse patient.[facility] the event this information is protected by the Federal Confidentiality of Alcohol and Drug Abuse Patient Records regulations: The Federal rules restrict any use of the information to criminally investigate or prosecute any alcohol or drug abuse patient.[facility]In the event this information is protected by the Federal Confidentiality of Alcohol and Drug Abuse Patient Records regulations: The Federal rules restrict any use of the information to criminally investigate or prosecute any alcohol or drug abuse patient.[facility] HospitalIn the event this information is protected by the Federal Confidentiality of Alcohol and Drug Abuse Patient Records regulations: The Federal rules restrict any use of the information to criminally investigate or prosecute any alcohol or drug abuse patient.[facility]In the event this information is protected by the Federal Confidentiality of Alcohol and Drug Abuse Patient Records regulations: The Federal rules restrict any use of the information to criminally investigate or prosecute any alcohol or drug abuse patient.[facility]In the event this information is protected by the Federal Confidentiality of Alcohol and Drug Abuse Patient Records regulations: The Federal rules restrict any use of the information to criminally investigate or prosecute any alcohol or drug abuse patient.[facility]In the event this information is protected by the Federal Confidentiality of Alcohol and Drug Abuse Patient Records regulations: The Federal rules restrict any use of the information to criminally investigate or prosecute any alcohol or drug abuse patient.[facility]In the event this information is protected by the Federal Confidentiality of Alcohol and Drug Abuse Patient Records regulations: The Federal rules restrict any use of the information to criminally investigate or prosecute any alcohol or drug abuse patient.[facility]In the event this information is protected by the Federal Confidentiality of Alcohol and Drug Abuse Patient Records regulations: The Federal rules restrict any use of the information to criminally investigate or prosecute any alcohol or drug abuse patient.[facility]In the event this information is protected by the Federal Confidentiality of Alcohol and Drug Abuse Patient Records regulations: The Federal rules restrict any use of the information to criminally investigate or prosecute any alcohol or drug abuse patient.[facility]In the event this information is protected by the Federal Confidentiality of Alcohol and Drug Abuse Patient Records regulations: The Federal rules restrict any use of the information to criminally investigate or prosecute any alcohol or drug abuse patient.[facility]In the event this information is protected by the Federal Confidentiality of Alcohol and Drug Abuse Patient Records regulations: The Federal rules restrict any use of the information to criminally investigate or prosecute any alcohol or drug abuse patient.[facility]In the event this information is protected by the Federal Confidentiality of Alcohol and Drug Abuse Patient Records regulations: The Federal rules restrict any use of the information to criminally investigate or prosecute any alcohol or drug abuse patient.[facility]In the event this information is protected by the Federal Confidentiality of Alcohol and Drug Abuse Patient Records regulations: The Federal rules restrict any use of the information to criminally investigate or prosecute any alcohol or drug abuse patient.[facility]In the event this information is protected by the Federal Confidentiality of Alcohol and Drug Abuse Patient Records regulations: The Federal rules restrict any use of the information to criminally investigate or prosecute any alcohol or drug abuse patient.[facility]In the event this information is protected by the Federal Confidentiality of Alcohol and Drug Abuse Patient Records regulations: The Federal rules restrict any use of the information to criminally investigate or prosecute any alcohol or drug abuse patient.[facility]In the event this information is protected by the Federal Confidentiality of Alcohol and Drug Abuse Patient Records regulations: The Federal rules restrict any use of the information to criminally investigate or prosecute any alcohol or drug abuse patient.[facility]In the event this information is protected by the Federal Confidentiality of Alcohol and Drug Abuse Patient Records regulations: The Federal rules restrict any use of the information to criminally investigate or prosecute any alcohol or drug abuse patient.[facility]In the event this information is protected by the Federal Confidentiality of Alcohol and Drug Abuse Patient Records regulations: The Federal rules restrict any use of the information to criminally investigate or prosecute any alcohol or drug abuse patient.[facility]In the event this information is protected by the Federal Confidentiality of Alcohol and Drug Abuse Patient Records regulations: The Federal rules restrict any use of the information to criminally investigate or prosecute any alcohol or drug abuse patient.[facility]In the event this information is protected by the Federal Confidentiality of Alcohol and Drug Abuse Patient Records regulations: The Federal rules restrict any use of the information to criminally investigate or prosecute any alcohol or drug abuse patient.[facility]In the event this information is protected by the Federal Confidentiality of Alcohol and Drug Abuse Patient Records regulations: The Federal rules restrict any use of the information to criminally investigate or prosecute any alcohol or drug abuse patient.[facility] HospitalIn the event this information is protected by the Federal Confidentiality of Alcohol and Drug Abuse Patient Records regulations: The Federal rules restrict any use of the information to criminally investigate or prosecute any alcohol or drug abuse patient.[facility] HospitalIn the event this information is protected by the Federal Confidentiality of Alcohol and Drug Abuse Patient Records regulations: The Federal rules restrict any use of the information to criminally investigate or prosecute any alcohol or drug abuse patient.[facility] HospitalIn the event this information is protected by the Federal Confidentiality of Alcohol and Drug Abuse Patient Records regulations: The Federal rules restrict any use of the information to criminally investigate or prosecute any alcohol or drug abuse patient.[facility] HospitalIn the event this information is protected by the Federal Confidentiality of Alcohol and Drug Abuse Patient Records regulations: The Federal rules restrict any use of the information to criminally investigate or prosecute any alcohol or drug abuse patient.[facility] HospitalIn the event this information is protected by the Federal Confidentiality of Alcohol and Drug Abuse Patient Records regulations: The Federal rules restrict any use of the information to criminally investigate or prosecute any alcohol or drug abuse patient.[facility] HospitalIn the event this information is protected by the Federal Confidentiality of Alcohol and Drug Abuse Patient Records regulations: The Federal rules restrict any use of the information to criminally investigate or prosecute any alcohol or drug abuse patient.[facility] HospitalIn the event this information is protected by the Federal Confidentiality of Alcohol and Drug Abuse Patient Records regulations: The Federal rules restrict any use of the information to criminally investigate or prosecute any alcohol or drug abuse patient.[facility] HospitalIn the event this information is protected by the Federal Confidentiality of Alcohol and Drug Abuse Patient Records regulations: The Federal rules restrict any use of the information to criminally investigate or prosecute any alcohol or drug abuse patient.[facility] HospitalIn the event this information is protected by the Federal Confidentiality of Alcohol and Drug Abuse Patient Records regulations: The Federal rules restrict any use of the information to criminally investigate or prosecute any alcohol or drug abuse patient.[facility] HospitalIn the event this information is protected by the Federal Confidentiality of Alcohol and Drug Abuse Patient Records regulations: The Federal rules restrict any use of the information to criminally investigate or prosecute any alcohol or drug abuse patient.[facility] HospitalIn the event this information is protected by the Federal Confidentiality of Alcohol and Drug Abuse Patient Records regulations: The Federal rules restrict any use of the information to criminally investigate or prosecute any alcohol or drug abuse patient.[facility] HospitalIn the event this information is protected by the Federal Confidentiality of Alcohol and Drug Abuse Patient Records regulations: The Federal rules restrict any use of the information to criminally investigate or prosecute any alcohol or drug abuse patient.[facility] HospitalIn the event this information is protected by the Federal Confidentiality of Alcohol and Drug Abuse Patient Records regulations: The Federal rules restrict any use of the information to criminally investigate or prosecute any alcohol or drug abuse patient.[facility] HospitalIn the event this information is protected by the Federal Confidentiality of Alcohol and Drug Abuse Patient Records regulations: The Federal rules restrict any use of the information to criminally investigate or prosecute any alcohol or drug abuse patient.[facility] HospitalIn the event this information is protected by the Federal Confidentiality of Alcohol and Drug Abuse Patient Records regulations: The Federal rules restrict any use of the information to criminally investigate or prosecute any alcohol or drug abuse patient.[facility] HospitalIn the event this information is protected by the Federal Confidentiality of Alcohol and Drug Abuse Patient Records regulations: The Federal rules restrict any use of the information to criminally investigate or prosecute any alcohol or drug abuse patient.[facility] HospitalIn the event this information is protected by the Federal Confidentiality of Alcohol and Drug Abuse Patient Records regulations: The Federal rules restrict any use of the information to criminally investigate or prosecute any alcohol or drug abuse patient.[facility] HospitalIn the event this information is protected by the Federal Confidentiality of Alcohol and Drug Abuse Patient Records regulations: The Federal rules restrict any use of the information to criminally investigate or prosecute any alcohol or drug abuse patient.[facility] HospitalIn the event this information is protected by the Federal Confidentiality of Alcohol and Drug Abuse Patient Records regulations: The Federal rules restrict any use of the information to criminally investigate or prosecute any alcohol or drug abuse patient.[facility] HospitalIn the event this information is protected by the Federal Confidentiality of Alcohol and Drug Abuse Patient Records regulations: The Federal rules restrict any use of the information to criminally investigate or prosecute any alcohol or drug abuse patient.[facility] HospitalIn the event this information is protected by the Federal Confidentiality of Alcohol and Drug Abuse Patient Records regulations: The Federal rules restrict any use of the information to criminally investigate or prosecute any alcohol or drug abuse patient.[facility] HospitalIn the event this information is protected by the Federal Confidentiality of Alcohol and Drug Abuse Patient Records regulations: The Federal rules restrict any use of the information to criminally investigate or prosecute any alcohol or drug abuse patient.[facility] HospitalIn the event this information is protected by the Federal Confidentiality of Alcohol and Drug Abuse Patient Records regulations: The Federal rules restrict any use of the information to criminally investigate or prosecute any alcohol or drug abuse patient.[facility] HospitalIn the event this information is protected by the Federal Confidentiality of Alcohol and Drug Abuse Patient Records regulations: The Federal rules restrict any use of the information to criminally investigate or prosecute any alcohol or drug abuse patient.[facility] HospitalIn the event this information is protected by the Federal Confidentiality of Alcohol and Drug Abuse Patient Records regulations: The Federal rules restrict any use of the information to criminally investigate or prosecute any alcohol or drug abuse patient.[facility] HospitalIn the event this information is protected by the Federal Confidentiality of Alcohol and Drug Abuse Patient Records regulations: The Federal rules restrict any use of the information to criminally investigate or prosecute any alcohol or drug abuse patient.[facility] HospitalIn the event this information is protected by the Federal Confidentiality of Alcohol and Drug Abuse Patient Records regulations: The Federal rules restrict any use of the information to criminally investigate or prosecute any alcohol or drug abuse patient.[facility] HospitalIn the event this information is protected by the Federal Confidentiality of Alcohol and Drug Abuse Patient Records regulations: The Federal rules restrict any use of the information to criminally investigate or prosecute any alcohol or drug abuse patient.[facility] HospitalIn the event this information is protected by the Federal Confidentiality of Alcohol and Drug Abuse Patient Records regulations: The Federal rules restrict any use of the information to criminally investigate or prosecute any alcohol or drug abuse patient.[facility] the event this information is protected by the Federal Confidentiality of Alcohol and Drug Abuse Patient Records regulations: The Federal rules restrict any use of the information to criminally investigate or prosecute any alcohol or drug abuse patient.[facility] HospitalIn the event this information is protected by the Federal Confidentiality of Alcohol and Drug Abuse Patient Records regulations: The Federal rules restrict any use of the information to criminally investigate or prosecute any alcohol or drug abuse patient.[facility] HospitalIn the event this information is protected by the Federal Confidentiality of Alcohol and Drug Abuse Patient Records regulations: The Federal rules restrict any use of the information to criminally investigate or prosecute any alcohol or drug abuse patient.[facility]In the event this information is protected by the Federal Confidentiality of Alcohol and Drug Abuse Patient Records regulations: The Federal rules restrict any use of the information to criminally investigate or prosecute any alcohol or drug abuse patient.[facility] HospitalIn the event this information is protected by the Federal Confidentiality of Alcohol and Drug Abuse Patient Records regulations: The Federal rules restrict any use of the information to criminally investigate or prosecute any alcohol or drug abuse patient.[facility] HospitalIn the event this information is protected by the Federal Confidentiality of Alcohol and Drug Abuse Patient Records regulations: The Federal rules restrict any use of the information to criminally investigate or prosecute any alcohol or drug abuse patient.[facility] HospitalIn the event this information is protected by the Federal Confidentiality of Alcohol and Drug Abuse Patient Records regulations: The Federal rules restrict any use of the information to criminally investigate or prosecute any alcohol or drug abuse patient.[facility] HospitalIn the event this information is protected by the Federal Confidentiality of Alcohol and Drug Abuse Patient Records regulations: The Federal rules restrict any use of the information to criminally investigate or prosecute any alcohol or drug abuse patient.[facility] HospitalIn the event this information is protected by the Federal Confidentiality of Alcohol and Drug Abuse Patient Records regulations: The Federal rules restrict any use of the information to criminally investigate or prosecute any alcohol or drug abuse patient.[facility] HospitalIn the event this information is protected by the Federal Confidentiality of Alcohol and Drug Abuse Patient Records regulations: The Federal rules restrict any use of the information to criminally investigate or prosecute any alcohol or drug abuse patient.[facility] HospitalIn the event this information is protected by the Federal Confidentiality of Alcohol and Drug Abuse Patient Records regulations: The Federal rules restrict any use of the information to criminally investigate or prosecute any alcohol or drug abuse patient.[facility] HospitalIn the event this information is protected by the Federal Confidentiality of Alcohol and Drug Abuse Patient Records regulations: The Federal rules restrict any use of the information to criminally investigate or prosecute any alcohol or drug abuse patient.[facility] HospitalIn the event this information is protected by the Federal Confidentiality of Alcohol and Drug Abuse Patient Records regulations: The Federal rules restrict any use of the information to criminally investigate or prosecute any alcohol or drug abuse patient.[facility] HospitalIn the event this information is protected by the Federal Confidentiality of Alcohol and Drug Abuse Patient Records regulations: The Federal rules restrict any use of the information to criminally investigate or prosecute any alcohol or drug abuse patient.[facility] HospitalIn the event this information is protected by the Federal Confidentiality of Alcohol and Drug Abuse Patient Records regulations: The Federal rules restrict any use of the information to criminally investigate or prosecute any alcohol or drug abuse patient.[facility] HospitalIn the event this information is protected by the Federal Confidentiality of Alcohol and Drug Abuse Patient Records regulations: The Federal rules restrict any use of the information to criminally investigate or prosecute any alcohol or drug abuse patient.[facility] HospitalIn the event this information is protected by the Federal Confidentiality of Alcohol and Drug Abuse Patient Records regulations: The Federal rules restrict any use of the information to criminally investigate or prosecute any alcohol or drug abuse patient.[facility] HospitalIn the event this information is protected by the Federal Confidentiality of Alcohol and Drug Abuse Patient Records regulations: The Federal rules restrict any use of the information to criminally investigate or prosecute any alcohol or drug abuse patient.[facility] HospitalIn the event this information is protected by the Federal Confidentiality of Alcohol and Drug Abuse Patient Records regulations: The Federal rules restrict any use of the information to criminally investigate or prosecute any alcohol or drug abuse patient.[facility] HospitalIn the event this information is protected by the Federal Confidentiality of Alcohol and Drug Abuse Patient Records regulations: The Federal rules restrict any use of the information to criminally investigate or prosecute any alcohol or drug abuse patient.[facility] HospitalIn the event this information is protected by the Federal Confidentiality of Alcohol and Drug Abuse Patient Records regulations: The Federal rules restrict any use of the information to criminally investigate or prosecute any alcohol or drug abuse patient.[facility] HospitalIn the event this information is protected by the Federal Confidentiality of Alcohol and Drug Abuse Patient Records regulations: The Federal rules restrict any use of the information to criminally investigate or prosecute any alcohol or drug abuse patient.[facility] HospitalIn the event this information is protected by the Federal Confidentiality of Alcohol and Drug Abuse Patient Records regulations: The Federal rules restrict any use of the information to criminally investigate or prosecute any alcohol or drug abuse patient.[facility] HospitalIn the event this information is protected by the Federal Confidentiality of Alcohol and Drug Abuse Patient Records regulations: The Federal rules restrict any use of the information to criminally investigate or prosecute any alcohol or drug abuse patient.[facility] HospitalIn the event this information is protected by the Federal Confidentiality of Alcohol and Drug Abuse Patient Records regulations: The Federal rules restrict any use of the information to criminally investigate or prosecute any alcohol or drug abuse patient.[facility] HospitalIn the event this information is protected by the Federal Confidentiality of Alcohol and Drug Abuse Patient Records regulations: The Federal rules restrict any use of the information to criminally investigate or prosecute any alcohol or drug abuse patient.[facility] HospitalIn the event this information is protected by the Federal Confidentiality of Alcohol and Drug Abuse Patient Records regulations: The Federal rules restrict any use of the information to criminally investigate or prosecute any alcohol or drug abuse patient.[facility] HospitalIn the event this information is protected by the Federal Confidentiality of Alcohol and Drug Abuse Patient Records regulations: The Federal rules restrict any use of the information to criminally investigate or prosecute any alcohol or drug abuse patient.[facility] HospitalIn the event this information is protected by the Federal Confidentiality of Alcohol and Drug Abuse Patient Records regulations: The Federal rules restrict any use of the information to criminally investigate or prosecute any alcohol or drug abuse patient.[facility] HospitalIn the event this information is protected by the Federal Confidentiality of Alcohol and Drug Abuse Patient Records regulations: The Federal rules restrict any use of the information to criminally investigate or prosecute any alcohol or drug abuse patient.[facility] Reason for Visit (unrecogniz ed section [...] Obesity Reason Comments Appointment Cancelled Reason Comments [employer] - Other Reason Onset Date Comments Refill [...] consult Specialty Diagnoses / Procedures Referred By Contac t Referred To Contact General Surgery Diagnoses Occult blood positive stool Procedures CONSULT TO GENERAL SURGERY OFFICE/OUTPATIENT [facility] MDM 60 MINUTES Faith Deluna, FACILITIES ADMINISTRATOR.SCIENCE PROFESSOR [address] [place] [address] Referral ID Status Reason Start Date Expiration Date V isits Requested Visits Authorized [id number] Closed PCP Requested Referral 12/23/2023 12/22/2024 1 [...] since Thursday. 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 Tender. Gets red and inflamed. No drainage. Mary Austin LPN Reason Onset Date Comments Refill Request 07/25/2024 Reason Comments Patient Update Reason Comments Derm Problem cyst Reason Comments Consult cyst Specialty Diagnoses / Procedures Referred By Delilah bravo Referred To Contact General Surgery Diagnoses Epidermal inclusion cyst Procedures CONSULT TO GENERAL SURGERY OFFICE/OUTPATIENT NEW HIGH MDM 60 MINUTES Bettina Fuentes, FACILITIES ADMINISTRATOR.SCIENCE PROFESSOR [address] [place] [address] Phone: tel: fax: Referral ID Status Reason Start Date Expiration Date V isits Requested Visits Authorized [id number] Closed PCP Requested Referral 08/02/2024 08/01/2025 1 1 Reason Comments Follow Up Wound care Reason Comments Dizziness 2 episodes within th e last week Reason Onset Date Comments Refill Request 08/14/2024 Reason Onset Date Comments Refill Request 08/16/2024 Reason Comments Anxiety Depression Med Management Reason Onset Date Comments Refill Request 12/11/2024 Reason Onset Date Comments Refill Request 01/06/2025 Reason Comments Patient Question Reason Comments Medication Problem Reason Comments Rash On face x1 day, itch ing whole body, nausea, feeling off balance Reason Comments Abdominal Pain Right flank pain, lo wer left back pain. Gas, bloating, frequent loose bowel movements, sometimes diarrhea. Balance Feeling off balance Reason Comments Abdominal Pain GERD Specialty Diagnoses / Procedures Referred By Delilah bravo Referred To Contact Gastroenterology Diagnoses Flatus Gastroesophageal reflux disease without esophagitis Right upper quadrant abdominal pain Procedures OFFICE/OUTPATIENT [facility] 60 MINUTES Bettina Fuentes APRN.SCIENCE PROFESSOR [address] [place] [address] Phone: tel: fax: Referral ID Status Reason Start Date Expiration Date V isits Requested Visits Authorized [id number] Closed PCP Requested Referral 01/17/2025 01/17/2026 1 1 Reason Comments Dizziness Neck Pain Reason Comments Sinus Problem Sinus pressure in he ad and neck, nausea x 2 days Reason Comments Sinus Problem sinus pressure, head ache, nasal drainage x 3 days Care Teams (unrecognized sec tion and content) Kitchen Utility Associate Relationship Specialty Start Date End Date Mandie Garcia PA-C [address] [place] [address] PCP - General Family Practice 01/15/17 Kitchen Utility Associate Relationship Specialty Start Date End Date Mandie Garcia PA-C [address] [place] [address] PCP - General Family Practice 01/15/17 Kitchen Utility Associate Relationship Specialty Start Date End Date Mandie Garcia PA-C [address] [place] [address] PCP - General Family Practice 01/15/17 Kitchen Utility Associate Relationship Specialty Start Date End Date Mandie Garcia PA-C [address] [place] [address] PCP - General Family Practice 01/15/17 Kitchen Utility Associate Relationship Specialty Start Date End Date Mandie Garcia PA-C [address] [place] [address] PCP - General Family Practice 01/15/17 Kitchen Utility Associate Relationship Specialty Start Date End Date Mandie Garcia PA-C [address] [facility] [place] [address] PCP - General Family Practice 01/15/17 Kitchen Utility Associate Relationship Specialty Start Date End Date Mandie Garcia PA-C [address] [facility] [place] [address] PCP - General Family Practice 01/15/17 Kitchen Utility Associate Relationship Specialty Start Date End Date Mandie Garcia PA-C [address] [facility] [place] [address] PCP - General Family Practice 01/15/17 Kitchen Utility Associate Relationship Specialty Start Date End Date Mandie Garcia PA-C [address] [facility] [place] [address] PCP - General Family Practice 01/15/17 Kitchen Utility Associate Relationship Specialty Start Date End Date Mandie Garcia PA-C [address] [facility] [place] [address] PCP - General Family Practice 01/15/17 Kitchen Utility Associate Relationship Specialty Start Date End Date Mandie Garcia PA-C [address] [facility] [place] [address] PCP - General Family Medicine 01/15/17 Kitchen Utility Associate Relationship Specialty Start Date End Date Mandie Garcia PA-C [address] [facility] [place] [address] PCP - General Family Medicine 01/15/17 Kitchen Utility Associate Relationship Specialty Start Date End Date Mandie Garcia PA-C [address] [facility] [place] [address] PCP - General Family Medicine 01/15/17 Kitchen Utility Associate Relationship Specialty Start Date End Date Mandie Garcia PA-C [address] [facility] [place] [address] PCP - General Family Medicine 01/15/17 Kitchen Utility Associate Relationship Specialty Start Date End Date Mandie Garcia PA-C [address] [place] [address] PCP - General Family Medicine 01/15/17 Kitchen Utility Associate Relationship Specialty Start Date End Date Mandie Garcia PA-C [address] [place] [address] PCP - General Family Medicine 01/15/17 Kitchen Utility Associate Relationship Specialty Start Date End Date Mandie Garcia PA-C [address] [place] [address] PCP - General Family Medicine 01/15/17 Kitchen Utility Associate Relationship Specialty Start Date End Date Mandie Garcia PA-C [address] [place] [address] PCP - General Family Medicine 01/15/17 Team Status: Active Member Role Status Dates OG Mina Family Provider Active OG Mina Primary Care Provider Active Team Status: Inactive Member Role Status Dates OG Mina Primary Care Provider Active Dr. Raulito Chang MD Emergency Provider Active Kitchen Utility Associate Relationship Specialty Start Date End Date Mandie Garcia PA-C [address] [place] [address] PCP - General Family Medicine 01/15/17 Kitchen Utility Associate Relationship Specialty Start Date End Date Mandie Garcia PA-C [address] [place] [address] PCP - General Family Medicine 01/15/17 Kitchen Utility Associate Relationship Specialty Start Date End Date Mandie Garcia PA-C [address] [place] [address] PCP - General Family Medicine 01/15/17 Kitchen Utility Associate Relationship Specialty Start Date End Date Mandie Garcia PA-C [address] [place] [address] PCP - General Family Medicine 01/15/17 Kitchen Utility Associate Relationship Specialty Start Date End Date Mandie Garcia PA-C [address] [place] [address] PCP - General Family Medicine 01/15/17 Kitchen Utility Associate Relationship Specialty Start Date End Date Mandie Garcia PA-C [address] [place] [address] PCP - General Family Medicine 01/15/17 Kitchen Utility Associate Relationship Specialty Start Date End Date Mandie Garcia PA-C [address] [place] [address] PCP - General Family Medicine 01/15/17 Kitchen Utility Associate Relationship Specialty Start Date End Date Mandie Garcia PA-C [address] [place], [place] [address] PCP - General Family Medicine 01/15/17 Team Status: Inactive Member Role Status Dates OG Mina Primary Care Provider, Referri ng Provider Active OG Hanna Attending Provider Active Team Status: Inactive Member Role Status Dates OG Mina Primary Care Provider Active Dr. Tung Edwards MD Attending Provider Active Team Status: Active Member Role Status Dates [facility] [facility] Attending Provider Active Team Status: Inactive Member Role Status Dates OG Mina Primary Care Provider Active Dr. Raulito Chang MD Attending Provider, Emergency Provider Active Team Status: Inactive Member Role Status Dates OG Mina Primary Care Provider Active Dr. Mary Esparza MD Emergency Provider Active Team Status: Inactive Member Role Status Dates OG Mina Primary Care Provider, Referri ng Provider Active Jermaine Levy MD Attending Provider Active Team Status: Inactive Member Role Status Dates OG Mina Primary Care Provider Active OG Hanna Attending Provider, Referring Prov ider Active Team Status: Inactive Member Role Status OG Tapia Primary Care Provider Active Dr. Mary sEparza MD Attending Provider, Emergency Provider Active Kitchen Utility Associate Relationship Specialty Start Date End Date Mandie Garcia PA-C [address] [facility] [place] [address] PCP - General Family Medicine 01/15/17 Kitchen Utility Associate Relationship Specialty Start Date End Date Mandie Garcia PA-C [address] [facility] [place] [address] PCP - General Family Medicine 01/15/17 Kitchen Utility Associate Relationship Specialty Start Date End Date Mandie Garcia PA-C [address] [facility] [place] [address] PCP - General Family Medicine 01/15/17 Kitchen Utility Associate Relationship Specialty Start Date End Date Mandie Garcia PA-C [address] [facility] [place] [address] PCP - General Family Medicine 01/15/17 Kitchen Utility Associate Relationship Specialty Start Date End Date Mandie Garcia PA-C [address] [facility] [place] [address] PCP - General Family Medicine 01/15/17 Kitchen Utility Associate Relationship Specialty Start Date End Date Mandie Garcia PA-C [address] [facility] [place] [address] PCP - General Family Medicine 01/15/17 Kitchen Utility Associate Relationship Specialty Start Date End Date Mandie Garcia PA-C [address] [facility] [place] [address] PCP - General Family Medicine 01/15/17 Kitchen Utility Associate Relationship Specialty Start Date End Date Mandie Garcia PA-C [address] [place] [address] PCP - General Family Medicine 01/15/17 Kitchen Utility Associate Relationship Specialty Start Date End Date Mandie Garcia PA-C [address] [place] [address] PCP - General Family Medicine 01/15/17 Kitchen Utility Associate Relationship Specialty Start Date End Date Mandie Garcia PA-C [address] [place] [address] PCP - General Family Medicine 01/15/17 Kitchen Utility Associate Relationship Specialty Start Date End Date Mandie Garcia PA-C [address] [place] [address] PCP - General Family Medicine 01/15/17 Kitchen Utility Associate Relationship Specialty Start Date End Date Mandie Garcia PA-C [address] [place] [address] PCP - General Family Medicine 01/15/17 Kitchen Utility Associate Relationship Specialty Start Date End Date Mandie Garcia PA-C [address] [place] [address] PCP - General Family Medicine 01/15/17 Kitchen Utility Associate Relationship Specialty Start Date End Date Mandie Garcia PA-C [address] [place] [address] PCP - General Family Medicine 01/15/17 Kitchen Utility Associate Relationship Specialty Start Date End Date Mandie Garcia PA-C [address] [place] [address] PCP - General Family Medicine 01/15/17 Kitchen Utility Associate Relationship Specialty Start Date End Date Mandie Garcia PA-C [address] [facility] [place] [address] PCP - General Family Medicine 01/15/17 Kitchen Utility Associate Relationship Specialty Start Date End Date Mandie Garcia PA-C [address] [facility] [place] [address] PCP - General Family Medicine 01/15/17 Kitchen Utility Associate Relationship Specialty Start Date End Date Mandie Garcia PA-C [address] [facility] [place] [address] PCP - General Family Medicine 01/15/17 Kitchen Utility Associate Relationship Specialty Start Date End Date Mandie Garcia PA-C [address] [facility] [place] [address] PCP - General Family Medicine 01/15/17 Kitchen Utility Associate Relationship Specialty Start Date End Date Mandie Garcia PA-C [address] [facility] [place] [address] PCP - General Family Medicine 01/15/17 Kitchen Utility Associate Relationship Specialty Start Date End Date Mandie Garcia PA-C [address] [facility] [place] [address] PCP - General Family Medicine 01/15/17 Kitchen Utility Associate Relationship Specialty Start Date End Date Mandie Garcia PA-C [address] [facility] [place] [address] PCP - General Family Medicine 01/15/17 Kitchen Utility Associate Relationship Specialty Start Date End Date Mandie Garcia PA-C [address] [place] [address] PCP - General Family Medicine 01/15/17 Kitchen Utility Associate Relationship Specialty Start Date End Date Mandie Garcia PA-C [address] [place] [address] PCP - General Family Medicine 01/15/17 Kitchen Utility Associate Relationship Specialty Start Date End Date Mandie Garcia PA-C [address] [place] [address] PCP - General Family Medicine 01/15/17 Kitchen Utility Associate Relationship Specialty Start Date End Date Mandie Garcia PA-C [address] [place] [address] PCP - General Family Medicine 01/15/17 Kitchen Utility Associate Relationship Specialty Start Date End Date Mandie Garcia PA-C [address] [place] [address] PCP - General Family Medicine 01/15/17 Kitchen Utility Associate Relationship Specialty Start Date End Date Mandie Garcia PA-C [address] [place] [address] PCP - General Family Medicine 01/15/17 Kitchen Utility Associate Relationship Specialty Start Date End Date Mandie Garcia PA-C [address] [place] [address] PCP - General Family Medicine 01/15/17 Kitchen Utility Associate Relationship Specialty Start Date End Date Mandie Garcia PA-C [address] [place] [address] PCP - General Family Medicine 01/15/17 Kitchen Utility Associate Relationship Specialty Start Date End Date Mandie Garcia PA-C [address] [facility] [place] [address] PCP - General Family Medicine 01/15/17 Kitchen Utility Associate Relationship Specialty Start Date End Date Mandie Garcia PA-C [address] [facility] [place] [address] PCP - General Family Medicine 01/15/17 Kitchen Utility Associate Relationship Specialty Start Date End Date Mandie Garcia PA-C [address] [place] [address] PCP - General Family Medicine 01/15/17 Kitchen Utility Associate Relationship Specialty Start Date End Date Mandie Garcia PA-C [address] [place] [address] PCP - General Family Medicine 01/15/17 Kitchen Utility Associate Relationship Specialty Start Date End Date Esthela Garcia PA-C PCP - General Family Medicine 01/15/17 Kitchen Utility Associate Relationship Specialty Start Date End Date Esthela Garcia PA-C PCP - General Family Medicine 01/15/17 Kitchen Utility Associate Relationship Specialty Start Date End Date Esthela Garcia PA-C PCP - General Family Medicine 01/15/17 Kitchen Utility Associate Relationship Specialty Start Date End Date Esthela Garcia PA-C PCP - General Family Medicine 01/15/17 Kitchen Utility Associate Relationship Specialty Start Date End Date Bettina Fuentes APRN.SCIENCE PROFESSOR [address] [facility] [place] [address] PCP - General Family Medicine 04/27/24 Kitchen Utility Associate Relationship Specialty Start Date End Date Bettina Fuentes, FACILITIES ADMINISTRATOR.SCIENCE PROFESSOR [address] [facility] [place] [address] PCP - General Family Medicine 04/27/24 Kitchen Utility Associate Relationship Specialty Start Date End Date Bettina Fuentes, FACILITIES ADMINISTRATOR.SCIENCE PROFESSOR [address] [facility] [place] [address] PCP - General Family Medicine 04/27/24 Kitchen Utility Associate Relationship Specialty Start Date End Date Bettina Fuentes, FACILITIES ADMINISTRATOR.SCIENCE PROFESSOR [address] [facility] [place] [address] PCP - General Family Medicine 04/27/24 Kitchen Utility Associate Relationship Specialty Start Date End Date Bettina Fuentes FACILITIES ADMINISTRATOR.SCIENCE PROFESSOR [address] [facility] [place] [address] PCP - General Family Medicine 04/27/24 Kitchen Utility Associate Relationship Specialty Start Date End Date Bettina Fuentes, FACILITIES ADMINISTRATOR.SCIENCE PROFESSOR [address] [facility] [place] [address] PCP - General Family Medicine 04/27/24 Kitchen Utility Associate Relationship Specialty Start Date End Date Bettina Fuentes, FACILITIES ADMINISTRATOR.SCIENCE PROFESSOR [address] [facility] [place] [address] PCP - General Family Medicine 04/27/24 Kitchen Utility Associate Relationship Specialty Start Date End Date Bettina Fuentes FACILITIES ADMINISTRATOR.SCIENCE PROFESSOR [address] [facility] [place] [address] PCP - General Family Medicine 04/27/24 Kitchen Utility Associate Relationship Specialty Start Date End Date Bettina Fuentes, FACILITIES ADMINISTRATOR.SCIENCE PROFESSOR [address] [facility], [place] [address] PCP - General Family Medicine 04/27/24 Kitchen Utility Associate Relationship Specialty Start Date End Date Bettina Fuentes, FACILITIES ADMINISTRATOR.SCIENCE PROFESSOR [address] [facility], [place] [address] PCP - General Family Medicine 04/27/24 Kitchen Utility Associate Relationship Specialty Start Date End Date Bettina Fuentes, FACILITIES ADMINISTRATOR.SCIENCE PROFESSOR [address] [facility], [place] [address] PCP - General [facility] Medicine 04/27/24 Kitchen Utility Associate Relationship Specialty Start Date End Date Bettina Fuentes, FACILITIES ADMINISTRATOR.SCIENCE PROFESSOR [address] [facility], [place] [address] PCP - General Family Medicine 04/27/24 Team Status: Active Member Role Status Dates Bettina Fuentes , SMOG TECHNICIAN Primary Care Provider Active Team Status: Inactive Member Role Status Dates Dr. Corey Tristan MD Attending Provider Active Sta rt: June 27, 2024 End: June 27, 2024 Dr. Corey Tristan MD Emergency Provider Active Sta rt: June 27, 2024 End: June 27, 2024 Bettina Fuentes , SMOG TECHNICIAN Primary Care Provider Active Start: June 27, 2024 End: June 27, 2024 Team Status: Inactive Member Role Status Dates Bettina Fuentes , SMOG TECHNICIAN Primary Care Provider Active Start: June 28, 2024 End: June 28, 2024 Dr. Bo Fontenot DO Attending Provider Active Start: June 28, 2024 End: June 28, 2024 Dr. Bo Fontenot DO Emergency Provider Active Start: June 28, 2024 End: June 28, 2024 Team Status: Inactive Member Role Status Dates Bettina Fuentes , SMOG TECHNICIAN Primary Care Provider Active Start: July 15, 2024 End: July 15, 2024 Dr. Roc Goldman DO Attending Provider Active Start: July 15, 2024 End: July 15, 2024 Team Status: Inactive Member Role Status Dates Bettina Suppan , SMOG TECHNICIAN Primary Care Provider Active Start: July 15, 2024 End: July 15, 2024 Bettina Suppan , SMOG TECHNICIAN Referring Provider Active Start: July 15, 2024 End: July 15, 2024 Lester FOLEY, PA Attending Provider Active Sta rt: July 15, 2024 End: July 15, 2024 Team Status: Inactive Member Role Status Dates Bettina Suppan , SMOG TECHNICIAN Primary Care Provider Active Start: July 18, 2024 End: July 18, 2024 Bettina Suppan , SMOG TECHNICIAN Referring Provider Active Start: July 18, 2024 End: July 18, 2024 Eddie FOLEY, PA Attending Provider Active Start: July 18, 2024 End: July 18, 2024 Team Status: Inactive Member Role Status Dates Bettina Suppan , SMOG TECHNICIAN Primary Care Provider Active Start: July 18, 2024 End: July 18, 2024 Dr. Chago Balderas DO Attending Provider Active Start: July 18, 2024 End: July 18, 2024 Dr. Chago Balderas DO Emergency Provider Active Start: July 18, 2024 End: July 18, 2024 Team Status: Active Member Role Status Dates Bettina Suppan , SMOG TECHNICIAN Primary Care Provider Active Start: August 18, 2024 Bettina Suppan , SMOG TECHNICIAN Attending Provider Active Start: August 18, 2024 Bettina Suppan , SMOG TECHNICIAN Referring Provider Active Start: August 18, 2024 Kitchen Utility Associate Relationship Specialty Start Date End Date Bettina Fuentes, FACILITIES ADMINISTRATOR.SCIENCE PROFESSOR [address] [place] [address] PCP - General Family Medicine 04/27/24 Kitchen Utility Associate Relationship Specialty Start Date End Date Bettina Fuentes, FACILITIES ADMINISTRATOR.SCIENCE PROFESSOR [address] [place] [address] PCP - General Family Medicine 04/27/24 Team Status: Inactive Member Role Status Dates Bettina Suppan , SMOG TECHNICIAN Primary Care Provider Active Start: August 30, 2024 End: August 30, 2024 Bettina Suppan , SMOG TECHNICIAN Referring Provider Active Start: August 30, 2024 End: August 30, 2024 Jermaine Levy MD Attending Provider Active St art: August 30, 2024 End: August 30, 2024 Team Status: Inactive Member Role Status Dates Bettina Suppan , SMOG TECHNICIAN Primary Care Provider Active Start: September 06, 2024 End: September 06, 2024 Bettina Suppan , SMOG TECHNICIAN Referring Provider Active Start: September 06, 2024 End: September 06, 2024 Jermaine Levy MD Attending Provider Active St art: September 06, 2024 End: September 06, 2024 Team Status: Inactive Member Role Status Dates Bettina Suppan , SMOG TECHNICIAN Primary Care Provider Active Start: September 13, 2024 End: September 13, 2024 Bettina Suppan , SMOG TECHNICIAN Referring Provider Active Start: September 13, 2024 End: September 13, 2024 Jermaine Levy MD Attending Provider Active St art: September 13, 2024 End: September 13, 2024 Team Status: Inactive Member Role Status Dates Bettina Suppan , SMOG TECHNICIAN Primary Care Provider Active Start: October 05, 2024 End: October 05, 2024 Bettina Suppan , SMOG TECHNICIAN Attending Provider Active Start: October 05, 2024 End: October 05, 2024 Bettina Suppan , SMOG TECHNICIAN Referring Provider Active Start: October 05, 2024 End: October 05, 2024 Team Status: Active Member Role Status Dates Bettina Suppan , SMOG TECHNICIAN Primary Care Provider Active Start: October 31, 2024 Self Referred Attending Provider Active Start: 2024 Self Referred Referring Provider Active Start: 2024 Team Status: Active Member Role Status Dates Bettina Suppan , SMOG TECHNICIAN Primary Care Provider Active Start: October 31, 2024 Bettina Suppan , SMOG TECHNICIAN Referring Provider Active Start: October 31, 2024 REN Lindsay Attending Provider Active Start: October 31, 2024 Team Status: Inactive Member Role Status Dates Bettina Suppan , SMOG TECHNICIAN Primary Care Provider Active Start: October 31, 2024 End: October 31, 2024 Dr. Tung Edwards MD Attending Provider Active S tart: October 31, 2024 End: October 31, 2024 Team Status: Inactive Member Role Status Dates Bettina Suppan , SMOG TECHNICIAN Primary Care Provider Active Start: October 31, 2024 End: October 31, 2024 Bettina Suppan , SMOG TECHNICIAN Referring Provider Active Start: October 31, 2024 End: October 31, 2024 REN Lindsay Attending Provider Active Start: October 31, 2024 End: October 31, 2024 Team Status: Active Member Role/Relationship Status Dates Bettina Suppan , SMOG TECHNICIAN Primary Care Provider Active Team Status: Inactive Member Role/Relationship Status Dates Bettina Suppan , SMOG TECHNICIAN Primary Care Provider Active Start: September 13, 2024 End: September 13, 2024 Bettina Suppan , SMOG TECHNICIAN Referring Provider Active Start: September 13, 2024 End: September 13, 2024 Jermaine Levy MD Attending Provider Active St art: September 13, 2024 End: September 13, 2024 Team Status: Inactive Member Role/Relationship Status Dates Bettina Suppan , SMOG TECHNICIAN Primary Care Provider Active Start: October 05, 2024 End: October 05, 2024 Bettina Suppan , SMOG TECHNICIAN Attending Provider Active Start: October 05, 2024 End: October 05, 2024 Bettina Suppan , SMOG TECHNICIAN Referring Provider Active Start: October 05, 2024 End: October 05, 2024 Team Status: Inactive Member Role/Relationship Status Dates Bettina Suppan , SMOG TECHNICIAN Primary Care Provider Active Start: October 31, 2024 End: October 31, 2024 Bettina Suppan , SMOG TECHNICIAN Referring Provider Active Start: October 31, 2024 End: October 31, 2024 REN Lindsay Attending Provider Active Start: October 31, 2024 End: October 31, 2024 Team Status: Inactive Member Role/Relationship Status Dates Bettina Suppan , SMOG TECHNICIAN Primary Care Provider Active Start: October 31, 2024 End: October 31, 2024 Dr. Tung Edwards MD Attending Provider Active S tart: October 31, 2024 End: October 31, 2024 Team Status: Active Member Role/Relationship Status Dates Bettina Suppan , SMOG TECHNICIAN Primary Care Provider Active Start: January 05, 2025 Self Referred Attending Provider Active Start: A ugust 2024 Self Referred Referring Provider Active Start: A ugust 2024 Team Status: Inactive Member Role/Relationship Status Dates Bettina Suppan , SMOG TECHNICIAN Primary Care Provider Active Start: January 07, 2025 End: January 07, 2025 Dr. Deangelo Thao , DO Emergency Provider Active Start: January 07, 2025 End: January 07, 2025 Kitchen Utility Associate Relationship Specialty Start Date End Date Bettina Fuentes, FACILITIES ADMINISTRATOR.SCIENCE PROFESSOR [address] [facility] [place] [address] PCP - General Family Medicine 04/27/24 Kitchen Utility Associate Relationship Specialty Start Date End Date Bettina Fuentes, FACILITIES ADMINISTRATOR.SCIENCE PROFESSOR [address] [facility] [place] [address] PCP - General Family Medicine 04/27/24 Kitchen Utility Associate Relationship Specialty Start Date End Date Bettina Fuentes, FACILITIES ADMINISTRATOR.SCIENCE PROFESSOR [address] [facility] [place] [address] PCP - General Family Medicine 04/27/24 Kitchen Utility Associate Relationship Specialty Start Date End Date Bettina Fuentes, FACILITIES ADMINISTRATOR.SCIENCE PROFESSOR [address] [facility] [place] [address] PCP - General Family Medicine 04/27/24 Kitchen Utility Associate Relationship Specialty Start Date End Date Bettina Fuentes, FACILITIES ADMINISTRATOR.SCIENCE PROFESSOR [address] [facility] [place] [address] PCP - General Family Medicine 04/27/24 Kitchen Utility Associate Relationship Specialty Start Date End Date Bettina Fuentes, FACILITIES ADMINISTRATOR.SCIENCE PROFESSOR [address] [facility] [place] [address] PCP - General Family Medicine 04/27/24 Kitchen Utility Associate Relationship Specialty Start Date End Date Bettina Fuentes, FACILITIES ADMINISTRATOR.SCIENCE PROFESSOR [address] [facility] [place] [address] PCP - General Family Medicine 04/27/24 Kitchen Utility Associate Relationship Specialty Start Date End Date Bettina Fuentes FACILITIES ADMINISTRATOR.SCIENCE PROFESSOR [address] [facility] [place] [address] PCP - General Family Medicine 04/27/24 Kitchen Utility Associate Relationship Specialty Start Date End Date Bettina Fuentes FACILITIES ADMINISTRATOR.SCIENCE PROFESSOR [address] [facility] [place] [address] PCP - General Family Medicine 04/27/24 Kitchen Utility Associate Relationship Specialty Start Date End Date Bettina Fuentes FACILITIES ADMINISTRATOR.SCIENCE PROFESSOR [address] [facility] [place] [address] PCP - General Family Medicine 04/27/24 Kitchen Utility Associate Relationship Specialty Start Date End Date Bettina Fuentes, FACILITIES ADMINISTRATOR.SCIENCE PROFESSOR [address] [facility] [place] [address] PCP - General Family Medicine 04/27/24 Kitchen Utility Associate Relationship Specialty Start Date End Date Bettina Fuentes, FACILITIES ADMINISTRATOR.SCIENCE PROFESSOR [address] [facility] [place] [address] PCP - General Family Medicine 04/27/24 Goals (unrecognized section and content) Goals may [...] BE BASED ON THE PRIMARY CLINICAL RECORDS. [facility]. provides no warranty or guarantee of the accuracy or completeness of information in this document.
== END | disposition home or self-care (01) ==
LOC: OPMRI 15:21
PROVIDERS: PCP Clinical Nurse Specialist Adult Health; Referring Provider Anesthesiology; Visit Provider Anesthesiology
DX: M47.812 Spondylosis without myelopathy or radiculopathy, cervical region (principal)
CPT/HCPCS: 72141

== ENCOUNTER 2025-04-10 15:00 | Outpatient (RCR) | payer SELFPAY | END 2025-04-10 19:00 | disposition home or self-care (01) | LOC: PT 15:00 | PROVIDERS: PCP Clinical Nurse Specialist Adult Health | DX: H81.10 Benign paroxysmal vertigo, unspecified ear (principal); M54.2 Cervicalgia ==

== ENCOUNTER 2025-05-04 08:39 | Emergency (ER) | payer MEDICAID, SELFPAY ==
[2025-05-04] VITALS (7 sets, daily range): BP systolic 82–166; BP diastolic 60–97; PULSE 67–78; RESP 14–22; TEMP 36.4–36.6; O2SAT 93–100; BMI 42.0
--- NOTE | 2025-05-04 09:03 | EDS_ITS ---
HPI History of Present Illness Chief Complaint: Other, Pain/Inj Detail of Chief Complaint: Neck pain Informant: patient Narrative Narrative: 45-year-old female has a history of spinal stenosis and disc disease all in the cervical spine that has been giving her pain and weakness in the legs for months followed by the arms for the last month or so, surgery was recommended, she had epidural injection yesterday trying to avoid surgery, she had no issues after the injections but woke up this morning with severe pain in the neck, and feels like it is a little thick to swallow although she is able, states it almost feels like something is swollen making it different to swallow. She denies any difference in her arm and leg symptoms and denies any numbness. She denies any fevers or chills. No other new symptoms. [facility] Medical History Fibromyalgia [place] (obstructive sleep apnea) GERD (gastroesophageal reflux disease) Anxiety disorder Depression Osteoarthritis of left knee Back pain Difficulty balancing Knee pain Chest pain Migraines Fatigue Stomach ulcer Shoulder pain SOB (shortness of breath) Arthritis Home Medications ?Medication ?Instructions ?Recorded ?Last Taken ?Type norgestimate 0.25 mg-ethinyl 1 ea PO DAILY bcp 9 01/06/25 History estradiol 0.035 mg tablet ascorbic acid (vitamin C) 500 mg 500 mg PO DAILY 01/0701/07/25 History tablet (C-500) lamotrigine 150 mg tablet 150 mg PO DAILY 01/07/25 History meclizine 25 mg tablet 25 mg PO Q6H PRN dizziness 0 01/07/25 01/07/25 History multivitamin (Daily Multi-Vitamin 1 tab PO DAILY 01/0701/07/25 History tablet) clonazepam 0.5 mg tablet 0.25 mg PO QDAY PRN 03/08/25 Unknown History magnesium glycinate 100 mg (as 200 mg PO QDAY 03/08/25 Unknown History glycinate) tablet baclofen 5 mg tablet 5 mg PO TID PRN 03/21/25 Unk nown History biotin 10,000 mcg chewable tablet mcg PO 03/21/25 Unkn own History calcium carbonate 600 mg PO QDAY 03/21/25 Unkn own History cholecalciferol (vitamin D3) 50 25 mcg PO DAILY Unknown History mcg (2,000 unit) tablet (D3 DOTS) duloxetine 40 mg capsule,delayed 40 mg PO QDAY 5 Unknown History release gabapentin 100 mg capsule 100 mg PO BID 03/21/25 Unkno wn History lamotrigine 100 mg tablet 100 mg PO QDAY 03/21/25 Unkn own History oxycodone-acetaminophen 5 mg-325 1 tab PO Q4H PRN Pain 2 days #10 05/04/25 Unknown Rx mg tablet TABLETS Allergy/AdvReac Type Severity Reaction Status Date / Time lansoprazole (From Prevacid) Allergy Unknown Verified 05/04/25 08:41 rabeprazole (From Aciphex) Allergy Hives Verified 05/04/25 08:41 Sulfa (Sulfonamide Allergy Unknown Verified 05/04/25 08:41 Antibiotics) morphine AdvReac Severe Chest Verified 05/04/25 14:18 tightness omeprazole (From Prilosec) AdvReac Other Verified 05/04/25 08:41 omeprazole magnesium (From AdvReac Other Verified 05/04/25 08:41 Prilosec) Surgical History History of esophagogastroduodenoscopy (EGD) History of colonoscopy Gastric bypass status for obesity History of cholecystectomy History of tonsillectomy History of bilateral breast reduction surgery Social History Smoking Status: Former smoker
--- NOTE | 2025-05-04 09:03 | EX.ED.DYSGE1 ---
HPI History of Present Illness Chief Complaint: Other, Pain/Inj Detail of Chief Complaint: Neck pain Informant: patient Narrative Narrative: 45-year-old female has a history of spinal stenosis and disc disease all in the cervical spine that has been giving her pain and weakness in the legs for months followed by the arms for the last month or so, surgery was recommended, she had epidural injection yesterday trying to avoid surgery, she had no issues after the injections but woke up this morning with severe pain in the neck, and feels like it is a little thick to swallow although she is able, states it almost feels like something is swollen making it different to swallow. She denies any difference in her arm and leg symptoms and denies any numbness. She denies any fevers or chills. No other new symptoms. [facility] Medical History Fibromyalgia [place] (obstructive sleep apnea) GERD (gastroesophageal reflux disease) Anxiety disorder Depression Osteoarthritis of left knee Back pain Difficulty balancing Knee pain Chest pain Migraines Fatigue Stomach ulcer Shoulder pain SOB (shortness of breath) Arthritis Home Medications ?Medication ?Instructions ?Recorded ?Last Taken ?Type norgestimate 0.25 mg-ethinyl 1 ea PO DAILY bcp 12/10/18 01/06/25 History estradiol 0.035 mg tablet ascorbic acid (vitamin C) 500 mg 500 mg PO DAILY 01/07/25 01/07/25 History tablet (C-500) lamotrigine 150 mg tablet 150 mg PO DAILY 01/07/25 01/07/25 History meclizine 25 mg tablet 25 mg PO Q6H PRN dizziness 01/07/25 01/07/25 History multivitamin (Daily Multi-Vitamin 1 tab PO DAILY 01/07/25 01/07/25 History tablet) clonazepam 0.5 mg tablet 0.25 mg PO QDAY PRN 03/08/25 Unknown History magnesium glycinate 100 mg (as 200 mg PO QDAY 03/08/25 Unknown History glycinate) tablet baclofen 5 mg tablet 5 mg PO TID PRN 03/21/25 Unknown History biotin 10,000 mcg chewable tablet mcg PO 03/21/25 Unknown History calcium carbonate 600 mg PO QDAY 03/21/25 Unknown History cholecalciferol (vitamin D3) 50 25 mcg PO DAILY 03/21/25 Unknown History mcg (2,000 unit) tablet (D3 DOTS) duloxetine 40 mg capsule,delayed 40 mg PO QDAY 03/21/25 Unknown History release gabapentin 100 mg capsule 100 mg PO BID 03/21/25 Unknown History lamotrigine 100 mg tablet 100 mg PO QDAY 03/21/25 Unknown History oxycodone-acetaminophen 5 mg-325 1 tab PO Q4H PRN Pain 2 days #10 05/04/25 Unknown Rx mg tablet TABLETS Allergy/AdvReac Type Severity Reaction Status Date / Time lansoprazole (From Prevacid) Allergy Unknown Verified 05/04/25 08:41 rabeprazole (From Aciphex) Allergy Hives Verified 05/04/25 08:41 Sulfa (Sulfonamide Allergy Unknown Verified 05/04/25 08:41 Antibiotics) morphine AdvReac Severe Chest Verified 05/04/25 14:18 tightness omeprazole (From Prilosec) AdvReac Other Verified 05/04/25 08:41 omeprazole magnesium (From AdvReac Other Verified 05/04/25 08:41 Prilosec) Surgical History History of esophagogastroduodenoscopy (EGD) History of colonoscopy Gastric bypass status for obesity History of cholecystectomy History of tonsillectomy History of bilateral breast reduction surgery Social History Smoking Status: Former smoker ROS ROS ED Constitutional Constitutional ED: Denies chills or fever(s) Eyes Eyes: Denies change in vision or diplopia ENT ENT ED: Reports other Details: Dysphagia see HPI ; Denies rhinorrhea or sore throat Cardiovascular Cardiovascular: Denies chest pain or palpitations Respiratory/Chest Respiratory/Chest: Denies cough or dyspnea Gastrointestinal Gastrointestinal: Denies abdominal pain, diarrhea, nausea or vomiting Genitourinary Genitourinary ED: Denies dysuria or hematuria Musculoskeletal Musculoskeletal: Reports neck pain; Denies back pain Integumentary Denies abscess or rash Neurologic Neurologic: Denies headache(s), paresthesias or weakness Psychiatric Psychiatric: Denies suicidal thoughts EXAM Physical Exam Const Vital Signs: 05/04/25 08:40 05/04/25 08:49 05/04/25 10:30 Temperature 97.5 F L Temperature Source Oral Pulse Rate 72 67 Respiratory Rate 18 21 H Respiratory Effort Normal Respiratory Pattern Normal Blood Pressure 166/92 H 148/93 H Blood Pressure Mean 116 111 Pulse Ox 100 100 Oxygen Delivery Method Room Air Room Air 05/04/25 11:00 05/04/25 12:59 05/04/25 14:35 Temperature Temperature Source Pulse Rate 78 73 71 Respiratory Rate 22 H 17 21 H Respiratory Effort Respiratory Pattern Blood Pressure 166/97 H 82/60 L 120/80 Blood Pressure Mean 120 67 93 Pulse Ox 100 93 100 Oxygen Delivery Method Room Air Room Air Room Air 05/04/25 15:59 Temperature Temperature Source Pulse Rate 71 Respiratory Rate 14 Respiratory Effort Respiratory Pattern Blood Pressure 120/87 H Blood Pressure Mean 98 Pulse Ox 100 Oxygen Delivery Method Room Air Positive well nourished and well developed General Appearance ED: well developed and NAD HEENT Reports moist mucous membranes HEENT Narrative: No stridor, tongue swelling/elevation, high potato voice, or objective swelling anterior neck. Conversing while lying recumbent without distress or difficulty. normocephalic and atraumatic Eyes PERRL and EOMs intact bilaterally Neck full ROM and supple Neck Narrative: Some minor circular ecchymoses in the upper back and base of the neck posteriorly due to recent cupping per patient. Single Band-Aid over lower cervical/upper thoracic midline from needlestick, benign skin exam here. No areas of tenderness. Patient able to move her neck without limitation. Resp normal respiratory effort and clear to auscultation bilaterally Cardio regular rate, regular rhythm and no murmurs Rate: Negative for tachycardic GI non-tender and non-distended Auscultation: normoactive bowel sounds Palpation: soft Back/Spine no CVA tenderness General Back: other FROM Extremity normal to inspection General Extremety ED: Negative for edema, pulses abnormal or tenderness General Extremity: Negative for edema or pulses abnormal Neuro oriented x3, CN's II-XII intact bilaterally and no sensory deficits noted Neuro Narrative: Normal gait Sensorium / Orientation: awake and alert Motor Exam: strength 5/5 throughout Skin no rashes or lesions noted and no wounds MDM MDM MDM Narrative Medical decision making narrative: And patient with some subjective swelling when she swallows, discussed with Dr. Estephanie troy who did the procedure yesterday states it was at C7-T1, low suspicion for acute emergent process, but advises getting an MRI to rule out any type of epidural hematoma or other collection. While waiting for MRI, patient was given morphine and shortly thereafter she developed right-sided chest discomfort that she states was in a very odd distribution almost an acid like pattern and goes up and around and into her back somehow. She states she thinks this happened in a similar fashion last time she got IV morphine. Certainly could be a GI reaction to this is causing his discomfort. Obtained an EKG is normal we obtained 2 sequential troponin measurements that are normal. We gave her a GI cocktail that helped a little, gave her fentanyl couple doses as well as hyoscyamine that helped further. With the guards to her MRI, returned showing chronic spinal stenosis that is mild and some disc abnormalities and no acute collection or signs of an epidural hematoma/abscess. Reassured. I spoke with her procedure list before and after all of this. At this time I think the patient can be discharged home safely. Her neck is feeling little better. And elfego prescribe her short course of analgesics and she can follow-up. Lab Data Attestation: I reviewed the patient's lab results. Labs: Laboratory Results - last 24 hr 05/04/25 05/04/25 09:37 14:30 WBC 11.2 H RBC 4.36 Hgb 13.3 Hct 39.6 MCV 90.8 MCH 30.5 MCHC 33.6 RDW Std Deviation 41.7 RDW Coeff of Renan 12.6 Plt Count 340 MPV 10.3 Immature Gran % (Auto) 0.200 Neut % (Auto) 57.2 Lymph % (Auto) 33.7 [place] % (Auto) 7.8 Eos % (Auto) 0.7 Baso % (Auto) 0.4 Absolute Neuts (auto) 6.4 Absolute Lymphs (auto) 3.78 Nucleated RBC % 0 Sodium 140 Potassium 3.3 Chloride 102 Carbon Dioxide 26.6 Anion Gap 11 BUN 13 Creatinine 0.79 Estim Creat Clear Calc 104.69 Est GFR (MDRD) Non-Af 94 BUN/Creatinine Ratio 16.8 Glucose 88 Calcium 9.1 Troponin T High Sens < 6 Troponin T Hi Sens 2 Hr < 6 Radiography Diagnostic Testing: Clinical Impression(s) from Imaging Studies Cervical Spine MRI 05/04/25 09:24 IMPRESSION: Mild canal stenosis at C4-C5, C5-C6 and C6-C7 from mild disc disease. Reading Location: [facility] Rhythm Strip Rhythm Strip: Sinus Rhythm Rate: 72 Ectopy: None EKG Initial EKG: Attestation: I personally reviewed and interpreted this EKG as follows: Interpretation: Sinus Rhythm and No Acute Injury Pattern Comments: Nml axis & intervals; nml EKG Management Discussion w/another healthcare provider: [employer] (Pain management Dr. Hummel) Discharge Plan Triage Chief Complaint: Other, Pain/Inj ED Provider: Francis Casillas Dx/Rx/DC Orders Clinical Impression: Acute neck pain, Dysphagia, History of epidural steroid injection into cervical spine, Chest pain, non-cardiac Instructions: ED Neck Pain Prescriptions: New oxycodone-acetaminophen 5-325 mg tablet 1 tab PO Q4H PRN (Reason: Pain) 2 Days Qty: 10 0RF No Action clonazepam 0.5 mg tablet 0.25 mg PO QDAY PRN magnesium glycinate 100 mg tablet 200 mg PO QDAY gabapentin 100 mg capsule 100 mg PO BID duloxetine 40 mg capsule,delayed release(DR/EC) 40 mg PO QDAY biotin 10,000 mcg tablet,chewable PO calcium carbonate 600 mg calcium (1,500 mg) tablet 600 mg PO QDAY lamotrigine 100 mg tablet 100 mg PO QDAY baclofen 5 mg tablet 5 mg PO TID PRN norgestimate-ethinyl estradiol 1 EACH tablet 1 ea PO DAILY lamotrigine 150 mg tablet 150 mg PO DAILY meclizine 25 mg tablet 25 mg PO Q6H PRN (Reason: dizziness) multivitamin [Daily Multi-Vitamin] Tablet 1 tab PO DAILY ascorbic acid (vitamin C) [C-500] 500 mg tablet 500 mg PO DAILY cholecalciferol (vitamin D3) [D3 DOTS] 50 mcg (2,000 unit) tablet 25 mcg PO DAILY Primary Care Provider: Bettina Ashton Referrals: Larry Hummel MD [Med Staff - Active Staff, Pain Management] - As soon as possible Print Language: Mauritian Disposition Disposition: Home, Self Care
--- NOTE | 2025-05-04 09:24 | MRI_ITS ---
PROCEDURE: SPINE CERVICAL (ROUTINE) 05/04/2025 REASON FOR EXAM: PAIN, DYSPHAGIA AFTER EPIDURAL INJECTION C7-T1 TECHNIQUE: Procedure Code: MRISPC Modality: MR Procedure: SPINE CERVICAL (ROUTINE) Multiplanar and multisequence images were obtained without IV contrast administration. FINDINGS: Vertebrae: Cervical vertebral body heights are preserved. Bone marrow signal is unremarkable. Alignment: Normal. No spondylolisthesis. Spinal Cord: Cervical spinal cord is of normal size and signal intensities. Structures at the foramen magnum are unremarkable. C2-3: A 2 mm disc osteophyte complex. No foraminal or canal stenosis. C3-4: No foraminal or canal stenosis. C4-5: Disc osteophyte complex measures 2 mm. No foraminal stenosis. Mild canal stenosis. C5-6: Left paracentral disc osteophyte complex measures 3 mm. Uncovertebral hypertrophy. Mild bilateral foramina stenosis. Mild canal stenosis. C6-7: Disc osteophyte complex. Uncovertebral hypertrophy. Mild left foramina stenosis. No right foraminal stenosis. No mild stenosis. C7-T1: Unremarkable MRI/Spine Cervical (Routine) IMPRESSION: Mild canal stenosis at C4-C5, C5-C6 and C6-C7 from mild disc disease. Reading Location: [id number]
[2025-05-04 09:43] LABS: Hematocrit 39.6 % (37-47); Hemoglobin 13.3 g/dL (12.0-15.0); Immature Granulocytes Count 0.020 X10^3/uL (0.0-0.0); Mean Corp Hgb Conc 33.6 g/dL (32-36); Mean Corpuscular Volume 90.8 fL (81-99); Mean Platelet Vol. 10.3 fl (6.2-12.0); NRBC Flagged by Analyzer 0 % (0-5); Platelet Count 340 K/mm3 (150-450); RBC Distribution Width CV 12.6 % (11.6-14.6); RBC Distribution Width SD 41.7 fl (35.1-43.9); Red Blood Count 4.36 M/mm3 (4.2-5.4); White Blood Count 11.2 K/mm3 (4.4-11.0)
[2025-05-04 10:23] LABS: Anion Gap 11 (5-15); BUN 13 mg/dL (4-19); BUN/Creat Ratio 16.8 RATIO (10-20); Calcium,Total 9.1 mg/dL (7.6-11.0); Carbon Dioxide 26.6 mmol/L (21.0-32.0); Chloride 102 mmol/L (98-108); Estimated Creatinine Clearance 104.69 ml/min (50-250); Glucose 88 mg/dL (70-99); Potassium 3.3 mmol/L (3.3-5.1)
--- NOTE | 2025-05-04 10:37 | EKG12_ITS ---
Test Reason : NECK PAIN Blood Pressure : */* mmHG Vent. Rate : 63 BPM Atrial Rate : 63 BPM P-R Int : 156 ms QRS Dur : 92 ms QT Int : 408 ms P-R-T Axes : 51 38 29 degrees QTcB Int : 417 ms Normal sinus rhythm Normal ECG Confirmed by LENI PRATER, JIMENEZ ([id number]), order editor DON FLETCHER ([id number]) on 05/08/2025 6:28:26 AM Referred By: PAZ Confirmed By: JIMENEZ FARRAR MD
[2025-05-04] MEDS: Lidocaine 2% Viscous15 ML UDC 15 ML PO (11:42)
[2025-05-04 12:22] LABS: Troponin T High Sensitivity < 6 ng/L (<=14)
[2025-05-04] MEDS: fentaNYL 100 MCG/2 ML Ampul 75 MCG IV (13:01)
--- NOTE | 2025-05-04 13:07 | NURSING ---
Dr. Casillas repeatedly informed about the nature of the pt's chest pain (front and back, radiating down R arm, frequent and severe) and interventions. Pt just had fentanyl. Will call MRI to scan.
[2025-05-04 15:21] LABS: Troponin T High Sens 2 HR < 6 ng/L (<=14)
[2025-05-04] MEDS: fentaNYL 100 MCG/2 ML Ampul 50 MCG IV (16:00)
== END 2025-05-04 16:40 | disposition home or self-care (01) ==
PROVIDERS: Emergency Provider Emergency Medicine; PCP Clinical Nurse Specialist Adult Health; Visit Provider Emergency Medicine
DX: M54.2 Cervicalgia (principal); M48.02 Spinal stenosis, cervical region; Z87.891 Personal history of nicotine dependence; K21.9 Gastro-esophageal reflux disease without esophagitis; R07.9 Chest pain, unspecified; R13.10 Dysphagia, unspecified
CPT/HCPCS: 72141; 80048; 84484; 85025; 93005; 96374; 96375; 96376; 99283; A4216; J2405

== ENCOUNTER → 2025-05-08 | Outpatient (CLI) | payer MEDICAID, SELFPAY ==
--- NOTE | 2025-05-08 12:29 | CT_ITS ---
EXAM: CTA of the coronary arteries. CLINICAL HISTORY: Chest pain. COMPARISON: None TECHNIQUE: Multiple axial tomographic images were obtained following intravenous contrast administration. Attention to the coronary arteries. Contrast: Isovue 370. Volume: [address] dL volume: 63 DLP: 2603.72 FINDINGS: The heart is nonenlarged. No significant coronary artery calcification is seen. No evidence of hilar or mediastinal lymphadenopathy. The visualized portions of the lungs are unremarkable. CT/Cardiac Angiography CTA IMPRESSION: No coronary artery calcification is seen. The coronary arteries are widely pat ent. Reading Location: [id number]
--- NOTE | 2025-05-08 12:29 | CT_ITS ---
PROCEDURE: LIMITED CHEST CT CARDIAC ONLY 05/08/2025 REASON FOR EXAM: CHEST PAIN TECHNIQUE: Procedure Code: [id number] Modality: CT Procedure: LIMITED CHEST CT CARDIAC ONLY Coronal and Sagittal reconstruction series were provided. CONTRAST: Isovue-300 VOLUME: 75 mL One or more dose reduction techniques were used (e.g., Automated exposure control, adjustment of the mA and/or kV according to patient size, use of iterative reconstruction technique). RADIATION DOSE SUMMARY: CTDlvol: 63 mGy DLP: 2603.72 mGycm COMPARISON: None FINDINGS: The heart is nonenlarged. No pericardial effusion. No coronary artery calcification is seen. The thoracic aorta is unremarkable. The visualized portions of the lungs are unremarkable. Diffuse fatty infiltration of the liver. CT/Limited Chest CT Cardiac Only IMPRESSION: No coronary artery calcification is seen. Reading Location: [id number]
[2025-05-08 13:06] VITALS: BP 141/92; PULSE 84; RESP 18; O2SAT 100; BMI 42.5
[2025-05-08 13:28] VITALS: BP 126/73; PULSE 67
[2025-05-08] MEDS: Nitroglycerin SL (ED/IMG/CATH) 0.4 MG TABLET SL (13:28)
[2025-05-08] MEDS: 0.9% Saline Lock 10 ML Syringe IV (13:41)
[2025-05-08 13:42] VITALS: BP 126/73; PULSE 67; RESP 18; O2SAT 100
--- NOTE | 2025-05-10 07:35 | CCTA.WCONT ---
CCTA w/Cont Coronary Arteries Date of Study:: 05/08/25 Chest pain Coronary Calcium Scoring: High-resolution Computed Tomographic imaging of the chest was performed on [05/08/2025], with particular attention paid to the coronary arteries. Intravenous contrast agent was administered per protocol and images reconstructed and displayed. LEFT MAIN CORONARY ARTERY: Arises from the left coronary cusp with no significant stenosis bifurcates the left anterior descending artery and left circumflex artery [] LEFT ANTERIOR DESCENDING CORONARY ARTERY: Arises from the left main coronary artery with no angiographically significant stenosis present. [] LEFT CIRCUMFLEX CORONARY ARTERY: No angiographically significant stenosis or calcification present. [] RIGHT CORONARY ARTERY: Dominant right coronary artery with an acute marginal branch and posterior descending artery and posterolateral vessel. No angiographically significant stenosis present. [] THORACIC AORTA: [] PULMONARY ARTERY: [] LEFT ATRIUM/APPENDAGE: [] MITRAL VALVE: [] AORTIC VALVE: [] LEFT VENTRICLE: [] CORONARY CALCIUM SCORE: [] Calcium Scoring Interpretation: Different methods to categorize the overall amount of coronary plaque. Overall amount CAC SIS Visual of coronary plaque P1 Mild -100 <2 1-2 vessels with mild amount of plaque P2 Moderate 101-300 3-4 1-2 vessels with moderate amount, 3 vessels with mild amount of plaque P3 Severe 301-999 5-7 3 vessels with moderate amount, 1 vessel with severe amount of plaque P4 Extensive >1000 >8 2-3 vessels with severe amount of plaque Conclusion: CT angiogram with no angiographically significant stenosis present.
== END | disposition home or self-care (01) ==
LOC: CT 12:29
PROVIDERS: PCP Clinical Nurse Specialist Adult Health; Referring Provider Internal Medicine Cardiovascular Disease; Visit Provider Internal Medicine Cardiovascular Disease
DX: R07.9 Chest pain, unspecified (principal); F41.9 Anxiety disorder, unspecified; M79.7 Fibromyalgia
CPT/HCPCS: 75574; 76380; Q9967